=== PATIENT | female | born 1995 | race Caucasian/White ===

== ENCOUNTER 2023-08-10 10:55 | Outpatient (OUT) | payer OTHER, SELFPAY ==
[2023-08-11 05:08] LABS: HBsAg Screen Negative (Negative); HCV Ab Non Reactive (Non Reactive); HIV Ab/p24 Ag Screen Non Reactive (Non Reactive); Hep A Ab, IgM Negative (Negative); Hep B Core Ab, IgM Negative (Negative)
[2023-08-11 12:10] LABS: Rapid Plasma Reagin, Quant Non Reactive titer (NonRea<1:1)
== END 2023-08-10 10:56 | disposition home or self-care (01) ==
LOC: LAB 10:56
DX: Z11.3 Encounter for screening for infections with a predominantly sexual mode of transmission (principal)
CPT/HCPCS: 36415; 80074; 86592; 87389

== ENCOUNTER 2024-05-17 09:58 | Outpatient (OUT) | payer OTHER, SELFPAY ==
--- OUTSIDE RECORDS SUMMARY | 2024-05-17 10:21 | XMS_ITS | CCD ---
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 single yolk sac visualized with normal surrounding amniotic fluid volume. The right ovary measures 2.1 x 1.7 x 1.7 cm and there is normal arterial and venous color flow and Doppler signal documented the ovary. The left ovary is not visualized and appears obscured due to overlying bowel gas. No adnexal mass or free fluid is seen. IMPRESSION: Single viable intrauterine with an estimated gestational age of 7 weeks 2 days and an estimated date of delivery of 12/12/2024 with no gross abnormality seen. Normal size right ovary with normal blood flow documented to the ovary and no ovarian masses seen. Nonvisualization of the left ovary which is probably obscured due to overlying bowel gas No adnexal mass or free fluid. [facility] Radiology Study observation (narrative) [facility] US OB LESS THAN 14 WEEKS SIN GLE OR FIRST GESTATION W DOPPLEROrdered By: Onur Mack on 04-27-2024 [facility] Work Phone: Urinalysis w/ Microon 2024 Bacteria 1+ Abnormal NONE [facility] Comment on above: Performed By: #### U AMIC #### [facility] [address] [place] [address] [place] [address] Luggage Liner: Gal Katz MD Bilirubin, SemiQt,Ur Negative Normal NEG [facility] Comment on above: Performed By: #### U AMIC #### [facility] [address] [place] [address] [place] [address] Luggage Liner: Gal Katz MD Blood, Urine 1+ Abnormal NEG [facility] Comment on above: Performed By: #### U AMIC #### [facility] [address] [place] [address] Luggage Liner: Gal Katz MD Clarity (U) SLIGHTLY CLOUDY Abnormal CLEAR [facility] Comment on above: Performed By: #### U AMIC #### [facility] [address] [place] [address] Luggage Liner: Gal Katz MD Color (U) Yellow Normal YEL [facility] Comment on above: Performed By: #### U AMIC #### [facility] [address] [place], [place] [id number] Luggage Liner: Gal Katz MD Epithelial cells LM Ql (Urine sed) 20 TO 50 Normal 0-25 [facility] Comment on above: Performed By: #### U AMIC #### [facility] [address] [place], [place] [phone] Luggage Liner: Gal Katz MD Glucose Ql (U) Negative Normal NEG [facility] Comment on above: Performed By: #### U AMIC #### [facility] [address] [place] [id number] Luggage Liner: Gal Katz MD Ketones Ql (U) Negative Normal NEG [facility] Comment on above: Performed By: #### U AMIC #### [facility] [address] [place], [place] [phone] Luggage Liner: Gal Katz MD Leukocyte esterase Test strip Ql (U) Negative Normal NEG [facility] Comment on above: Performed By: #### U AMIC #### [facility] [address] [place] [address] [place], [place] [phone] Luggage Liner: Gal Katz MD Nitrite,Ur Negative Normal NEG [facility] Comment on above: Performed By: #### U AMIC #### [facility] [address] [place], [place] 0755383 Luggage Liner: Gal Katz MD PH,Ur 6.0 Normal 5.0-9.0 [facility] Comment on above: Performed By: #### U AMIC #### [facility] [address] [place], [place] [phone] Luggage Liner: Gal Katz MD Protein Ql (U) Negative Normal NEG [facility] Comment on above: Performed By: #### U AMIC #### [facility] [address] [place] [phone] Luggage Liner: Gal Katz MD Spec. [place],Ur 1.025 High 1.010-1.020 [facility] Comment on above: Performed By: #### U AMIC #### [facility] [address] [place], [place] [address] Luggage Liner: Gal Katz MD Urine RBC's 2 TO 5 Normal 0-2 [facility] Comment on above: Performed By: #### U AMIC #### [facility] [address] [place], [place] 788[address]83 Luggage Liner: Gal Katz MD Urine WBC's 2 TO 5 Normal 0-5 [facility] Comment on above: Performed By: #### U AMIC #### [facility] [address] [place], [place] [phone] Luggage Liner: Gal Katz MD Urobilinogen,Ur Normal Normal 0.0-1.0 [facility] Comment on above: Performed By: #### U AMIC #### [facility] [address] [place] [phone] Luggage Liner: Gal Katz MD Urinalysis with Microscopico n 04-27-2024 Bacteria LM Ql (Urine sed) 1+ Abnormal None [facility] Bilirubin Ql (U) Negative NEGATIVE [facility] Clarity (U) SLIGHTLY CLOUDY Abnormal Clear [facility] Color (U) Yellow Yellow [facility] Epithelial cells LM.HPF (Urine sed) [#/Area] 20 TO 50 [facility] Glucose Test strip (U) [Mass/Vol] Negative NEGATIVE mg/dL [facility] Hemoglobin Auto test strip Ql (U) 1+ Abnormal NEGATIVE [facility] Interpretation and review of laboratory results Abnormal [facility] Ketones (U) [Mass/Vol] Negative NEGATIVE mg/dL [facility] Leukocyte esterase Test strip Ql (U) Negative NEGATIVE [facility] Nitrite Ql (U) Negative NEGATIVE [facility] pH (U) 6.0 [pH] 5.0 - 9.0 [facility] Protein (U) [Mass/Vol] Negative NEGATIVE mg/dL [facility] RBC LM.HPF (Urine sed) [#/Area] 2 TO 5 [facility] Specific gravity (U) [Rel density] 1.025 High 1.010 - 1.020 [facility] Urobilinogen Qn (U) Normal 0.0 - 1. 0 EU/dL [facility] WBC LM.HPF (Urine sed) [#/Area] 2 TO 5 [facility] COMPLETE BLOOD COUNTon 09-26 Erythrocyte distribution width (RBC) [Ratio] 13.7 % Normal 11.5-15.0 [facility] Comment on above: Performed By: #### Puneet BERNARD CMP, 14327-6, TSHR #### [facility] ([id number]) [address], [address] [place] [address] Hematocrit (Bld) [Volume fraction] 44.4 % Normal 35-47 [facility] Comment on above: Performed By: #### Puneet BERNARD CMP, 20249-3, TSHR #### [facility] ([id number]) [address] [address] [place] [address] Hemoglobin (Bld) [Mass/Vol] 15.1 g/dL Normal 11.7-15.5 [facility] Comment on above: Performed By: #### Puneet BERNARD CMP, 95699-3, TSHR #### [facility] ([id number]) [address], [address] [place] [address] MCH (RBC) [Entitic mass] 29.8 pg Normal 27-34 [facility] Comment on above: Performed By: #### Puneet BERNARD CMP, 74518-8, TSHR #### [facility] ([id number]) [address], [address] [place] [address] MCHC (RBC) [Mass/Vol] 34.0 g/dL Normal 32-36 [facility] Comment on above: Performed By: #### Puneet BERNARD CMP, 52863-8, TSHR #### [facility] ([id number]) [address], [address] [place] [address] MCV (RBC) [Entitic vol] 88 fL Normal 80-100 [facility] Comment on above: Performed By: #### Puneet BERNARD CMP, 91259-7, TSHR #### [facility] ([id number]) [address], [address] [place] [address] Platelet mean volume (Bld) [Entitic vol] 8.5 fL Normal 7-12 [facility] Comment on above: Performed By: #### Puneet BERNARD CMP, 85602-5, TSHR #### [facility] ([id number]) [address], [address] [place] [address] Platelets (Bld) [#/Vol] 302 10*3/uL Normal 150-450 [facility] Comment on above: Performed By: #### Puneet BERNARD CMP, 70725-2, TSHR #### [facility] ([id number]) [address], [address] [place] [address] RBC COUNT 5.07 X10E12/L Normal 3.80-5.20 [facility] Comment on above: Performed By: #### Puneet BERNARD CMP, 76034-7, TSHR #### [facility] ([id number]) [address], [address] [place] [address] WBC (Bld) [#/Vol] 6.1 10*3/uL Normal 4.0-11.[address] [facility] Comment on above: Performed By: #### Puneet BERNARD CMP, 09104-4, TSHR #### [facility] ([id number]) [address], [address] [place] [address] COMPREHENSIVE METABOLIC PANE Hermelindo 09-27-2023 Albumin [Mass/Vol] 4.4 g/dL Normal 3.2-5.[address] [facility] Comment on above: Performed By: #### C CHASE BERNARD, 72465-2, TSHR #### [facility] ([id number]) [address] [place] [address] ALP [Catalytic activity/Vol] 62 U/L Normal 39-130 [facility] Comment on above: Performed By: #### C JOANA, CMP, 26564-7, TSHR #### [facility] ([id number]) [address], [address] [place] [address] ALT [Catalytic activity/Vol] 19 U/L Normal 0-31 [facility] Comment on above: Performed By: #### Puneet BERNARD CMP, 62465-3, TSHR #### [facility] ([id number]) [address], [address] [place] [address] Anion gap [Moles/Vol] 9 mmol/L Normal 5-15 [facility] Comment on above: Performed By: #### Puneet BERNARD CMP, 46603-4, TSHR #### [facility] ([id number]) [address], [address] [place] [address] AST [Catalytic activity/Vol] 19 U/L Normal 0-41 [facility] Comment on above: Performed By: #### Puneet BERNARD CMP, 34224-1, TSHR #### [facility] ([id number]) [address], [address] [place] [address] Bilirubin [Mass/Vol] 0.7 mg/dL Normal 0.3-1.2 [facility] Comment on above: Performed By: #### Puneet BERNARD, CMP, 53076-9, TSHR #### [facility] ([id number]) [address], [address] [place] [address] Calcium [Mass/Vol] 9.5 mg/dL Normal 8.5-10.[address] [facility] Comment on above: Performed By: #### Puneet BERNARD CMP, 95679-0, TSHR #### [facility] ([id number]) [address], [address] [place] [address] Chloride [Moles/Vol] 106 mmol/L Normal 98-109 [facility] Comment on above: Performed By: #### Puneet BERNARD CMP, 84601-0, TSHR #### [facility] ([id number]) [address], [facility] [address] [place] [address] CO2 [Moles/Vol] 24 mmol/L Normal 22-32 [facility] Comment on above: Performed By: #### Puneet BERNARD CMP, 78507-1, TSHR #### [facility] ([id number]) [address] [address] Creatinine [Mass/Vol] 0.75 mg/dL Normal 0.40-1.00 [facility] Comment on above: Result Comment: METH OD TRACEABLE TO IDMS STANDARD Performed By: #### Puneet BERNARD CMP, 29180-5, TSHR #### [facility] ([id number]) [address] [address] [place] [address] eGFR (CKD-EPI) NON-RACE DEPENDENT >90 Normal >59 [facility] Comment on above: Result Comment: Reported eGFR is based on the CKD-EPI 2021 equation that does not use a race coefficient. Performed By: #### Puneet BERNARD CMP, 43972-0, TSHR #### [facility] ([id number]) [address] [address] Glucose [Mass/Vol] 70 mg/dL Normal 65-[address] [facility] Comment on above: Performed By: #### Puneet BERNARD CMP, 21066-5, TSHR #### [facility] ([id number]) [address], [address] [place] [address] [place] [address] Potassium [Moles/Vol] 4.3 mmol/L Normal 3.5-5.0 [facility] Comment on above: Performed By: #### Puneet BERNARD, CMP, 61408-9, TSHR #### [facility] ([id number]) [address], [address] [place] [address] Protein [Mass/Vol] 7.3 g/dL Normal 6.0-8.[address] [facility] Comment on above: Performed By: #### Puneet BERNARD, CMP, 94633-2, TSHR #### [facility] ([id number]) [address], [address] [place] [address] Sodium [Moles/Vol] 139 mmol/L Normal 134-[address] [facility] Comment on above: Performed By: #### Puneet BERNARD, CMP, 16185-8, TSHR #### [facility] ([id number]) [address], [address] [place] [address] Urea nitrogen [Mass/Vol] 9 mg/dL Normal 5-23 [facility] Comment on above: Performed By: #### Puneet BERNARD, CMP, 83694-9, TSHR #### [facility] ([id number]) [address], [facility] [address] [place] [address] Lipid 1996 panelon 4 Cholesterol [Mass/Vol] 192 mg/dL Normal 150-200 [facility] Comment on above: Performed By: #### Puneet BERNARD, CMP, 14285-1, TSHR #### [facility] ([id number]) [address], [facility] [address] [place] [address] Cholesterol in HDL [Mass/Vol] 61 mg/dL Normal >39 [facility] Comment on above: Result Comment: HDL <40 mg/dL - High Risk HDL > or = 40mg/dL- Desirable HDL >60 mg/dL - Negative Risk Performed By: #### Puneet BERNARD, CMP, 86145-6, TSHR #### [facility] ([id number]) [address], [address] [place] [address] Cholesterol in LDL [Mass/Vol] 118 mg/dL Normal <130 [facility] Comment on above: Result Comment: LDL <100 mg/dL - Desirable LDL >160 mg/dL - High Risk Performed By: #### Puneet BERNARD, CHASE, 65818-9, TSHR #### [facility] ([id number]) [address], [address] [place] [address] Cholesterol in VLDL [Mass/Vol] 13 mg/dL Normal 0-30 [facility] Comment on above: Performed By: #### Puneet BERNARD, CHASE, 24281-7, TSHR #### [facility] ([id number]) [address], [address] [place] [address] CHOLESTEROL:HDL 3.1 Normal 1.0-5.0 [facility] Comment on above: Performed By: #### Puneet BERNARD, CHASE, 12843-9, TSHR #### [facility] ([id number]) [address], [address] [place] [address] Triglyceride [Mass/Vol] 64 mg/dL Normal 27-150 [facility] Comment on above: Performed By: #### Puneet BERNARD, CMP, 17026-0, TSHR #### [facility] ([id number]) [address], [facility] [address] [place] [address] TSH WITH REFLEXon 09-27-2023 TSH 1.21 uIU/mL Normal 0.49-4.67 [facility] Comment on above: Performed By: #### Puneet BERNARD, [facility], 91856-3, TSHR #### [facility] ([id number]) [address] [place] [address], [address] [place] [address] HCG ( test) Ql (U)o n 09-03-2023 Beta HCG ( test) Ql (U) Negative Normal NEG [facility] Comment on above: Performed By: #### 2 106-3 #### [facility] ([id number]) [address] [facility] [place] [address] Surgical Pathologyon 024 Surgical Pathology Normal [facility] Comment on above: Result Comment: [facility] [address] [place] [address] Surgical Pathology Consultation Patient Name:MICHI SERRANO:1995 (Age: 28)Gender:FTaken:4Reported:09/07/2023hysician(s):Haja Osullivan MD ([phone])Copy To: Rec. #:[id number]: #[id number] Final Pathologic Diagnosis Sigmoid colon biopsies: Unremarkable colonic mucosa. No colitis, granuloma or dysplasia identified. No microscopic colitis or inflammatory bowel disease identified. Report Electronically Signed Out ssi/09/07/2023Huber Hayes M.D. Interpretation performed at [facility], [address] [place] [address], License number: [id number]. Clinical History Rectal bleeding. Gross Description Received in formalin labeled FEUCHT, sigmoid BX are eight light cortes soft tissue bits, 0.2-0.4 cm.The specimen is filtered and entirely submitted in a single cassette. (1, ns, [id number],m3) DM. dm/09/04/2023O Specimen(s) Received Sigmoid biopsy Fee Codes(s): 1; 71819 CHLAMYDIA/GC PCR, FLon 08-09 CHLAMYDIA/GC PCR, FL SPECIMEN SOURCE ThinPrep CHLAMYDIA DNA(PCR) Negative (qualifier value) Chlamydia trachomatis not detected by nucleic acid amplification. This does not exclude the possibility of infection because results are dependent on adequate specimen collection. GONORRHOEAE DNA(PCR) Negative (qualifier value) Neisseria gonorrhoeae not detected by nucleic acid amplification. This does not exclude the possibility of infection because results are dependent on adequate specimen collection. Normal [facility] Comment on above: Performed By: #### C GT #### [facility] ([id number]) [address] [facility] [place] [address] [facility] ([id number]) [address] [place] [address], [address] [place] [address] Cytologyon 08-10-2023 Cytology Normal [facility] Comment on above: Result Comment: [facility] [employer] [facility] [address] [place] [address] Gynecologic Cytology Consultation Patient Name:MICHI SERRANO:1995 (Age: 28)Gender:FTaken:4Reported:08/26/2023hysician(s):Claire Kat M.D. ([phone])Copy To: Rec. #:[id number]: #[id number] Final Cytologic Interpretation ThinPrep Pap Test (Cervical): Satisfactory for evaluation. A transformation zone component is present. NEGATIVE FOR INTRAEPITHELIAL LESION OR MALIGNANCY. Shift in daniella suggestive of bacterial vaginosis. [facility]/08/26/2023 Interpretation performed at [employer], [address] [place] [address], License number: [id number]. 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 The Pap test is primarily effective for the diagnosis and prevention of squamous cell carcinoma. Regular screening is critical for prevention. ThinPrep liquid-based slides, which meet the Stone Unloader criteria for automated screening, have been screened by the ThinPrep Imaging System (as of 12/20/06) along with an additional manual rescreening by a precision printing worker and, if indicated, by a pathologist. HIGH RISK HPV W/GENOon 08-09 HPV 31+33+35+39+45+51+5 2+56+58+59+66+68 DNA ALLISON+probe Ql (Cvx) HPV SPECIMEN TYPE ThinPrep HPV 16 Negative (qualifier value) HPV 18 Negative (qualifier value) OTHER HIGH RISK HPV Negative (qualifier value) HPV types 31,33,35,39,45,52,56, 58,59,66 and 68 DNA were undetectable. Normal [facility] Comment on above: Performed By: #### 7 1431-1 #### [facility] ([id number]) [address] [place] [address], [address] [place], [place] [id number] [place] [address] LAB ([id number]) [address] [place] [address], [address] [place] [address] POCT , urineon Beta HCG ( test) Ql (U) Negative [facility] Interpretation and review of laboratory results Normal [facility] Vital Signs Date Time Vital Sign Value Performing Clinician Facility 05-09-2024 14:22-0500 Body weight 86.09 kg Curtis Jeannine DO Work Phone: [facility] 05-09-2024 14:22-0500 Diastolic blood pressure 72 mm[Hg] Curtis Jeannine DO Work Phone: [facility] 05-09-2024 14:22-0500 Systolic blood pressure 118 mm[Hg] Curtis Jeannine DO Work Phone: [facility] 05-05-2024 10:32-0500 Body weight 83.52 kg [facility] Nurse [facility] 05-05-2024 10:32-0500 Diastolic blood pressure 78 mm[Hg] [facility] Nurse [facility] 05-05-2024 10:32-0500 Systolic blood pressure 120 mm[Hg] [facility] Nurse [facility] 04-27-2024 20:58-0500 SaO2% (BldA) [Mass fraction] 98 % Terry Vallejo MD Work Phone: [employer] 04-27-2024 17:53-0500 Body height 162.6 cm Terry Vallejo MD Work Phone: [employer] 04-27-2024 17:53-0500 Body mass index (BMI) [Ratio] 29.18 kg/m2 Terry Vallejo MD Work Phone: [employer] 04-27-2024 17:53-0500 Body temperature 98.8 [degF] Terry Vallejo MD Work Phone: [employer] 04-27-2024 17:53-0500 Body weight 77.11 kg Terry Vallejo MD Work Phone: [employer] 04-27-2024 17:53-0500 Diastolic blood pressure 93 mm[Hg] Terry Vallejo MD Work Phone: [employer] 04-27-2024 17:53-0500 Heart rate 90 /min Terry Vallejo MD Work Phone: [employer] 04-27-2024 17:53-0500 Respiratory rate 20 /min Terry Vallejo MD Work Phone: [employer] 04-27-2024 17:53-0500 Systolic blood pressure 150 mm[Hg] Terry Vallejo MD Work Phone: [employer] 01-27-2024 09:54-0400 Body height 162.6 cm [facility] [employer] Work Phone: [facility] 01-27-2024 09:54-0400 Body mass index (BMI) [Ratio] 28.15 kg/m2 [employer] Work Phone: [facility] 01-27-2024 09:54-0400 Body temperature 97.7 [degF] Armen Correialong DO Work Phone: [facility] [employer] 01-27-2024 09:54-0400 Body weight 74.39 kg Armen Furlong DO Work Phone: [facility] [employer] 01-27-2024 09:54-0400 Diastolic blood pressure 72 mm[Hg] Armen Furlong DO Work Phone: [facility] 01-27-2024 09:54-0400 Heart rate 89 /min Armen Masoodlong DO Work Phone: [facility] [employer] 01-27-2024 09:54-0400 Respiratory rate 18 /min Armen Masoodlong DO Work Phone: [facility] 01-27-2024 09:54-0400 SaO2% (BldA) [Mass fraction] 99 % Armen Masoodlong DO Work Phone: [facility] 01-27-2024 09:54-0400 Systolic blood pressure 118 mm[Hg] Armen Masoodlong DO Work Phone: [facility] 08-10-2023 09:46-0400 Body height 162.6 cm Claire Kat MD Work Phone: [facility] 08-10-2023 09:46-0400 Body mass index (BMI) [Ratio] 33.3 kg/m2 Claire Kat MD Work Phone: [facility] 08-10-2023 09:46-0400 Body weight 88 kg Claire Kat MD Work Phone: [facility] 08-10-2023 09:46-0400 Diastolic blood pressure 70 mm[Hg] Claire Kat MD Work Phone: [facility] 08-10-2023 09:46-0400 Systolic blood pressure 128 mm[Hg] Claire Kat MD Work Phone: [facility] Encounters Encounter Date Encounter Type Care Provider Facility Start: 05-09-2024 End: 05-09-2024 Bamboo flowsheet Curtis Jeannine DO Work Phone: [facility] Start: 05-09-2024 End: 05-09-2024 Bamboo flowsheet Curtis Jeannine DO Work Phone: [facility] Start: 05-09-2024 End: 05-09-2024 flow sheet Curtis Jeannine DO Work Phone: [facility] Comment on above: Missed menses; 9 weeks gestation of ; H/O LEEP Start: 05-05-2024 End: 05-05-2024 Office outpatient visit 5 minutes [facility] Jeannine Nurse [facility] Comment on above: GA: 8w3d Start: 05-03-2024 End: 05-03-2024 Telephone encounter Armen Correiaandra DO Work Phone: [facility] Start: 05-02-2024 End: 05-02-2024 Bamboo flowsheet Emi Bronson [facility] Work Phone: [facility] Start: 05-02-2024 End: 05-02-2024 Bamboo flowsheet Emi Bronson LPCC Work Phone: [facility] Start: 05-02-2024 End: 05-02-2024 Clinical Support Emi Bronson [facility] Work Phone: [facility] Comment on above: Moderate episode of recurrent major depressive disorder (CMS/HCC); ALICIA (generalized anxiety disorder) (CMS/HCC) Start: 04-27-2024 End: 04-27-2024 Emergency department patient visit Terry Vallejo MD Work Phone: [facility] Emergency Department Comment on above: Abdominal cramping ( Primary Dx); Arm contusion, right, initial encounter Start: 04-18-2024 End: 04-18-2024 Orders Only Aicha Richard LPN [facility] Comment on above: Positive t est (Primary Dx) Start: 01-27-2024 End: 01-27-2024 Office outpatient visit 15 minutes Armen Sánchez DO Work Phone: [facility] Comment on above: Current episode of m ajor depressive disorder without prior episode, unspecified depression episode severity (Primary Dx); Overweight Start: 01-27-2024 End: 01-27-2024 ambulatory ARMEN Cedric CORREIADEANNA [facility] Start: 01-21-2024 End: 01-21-2024 Refill Armen Sánchez DO Work Phone: [facility] Start: 12-13-2023 End: 12-13-2023 [employer] Emi Jerryro LPCC Work Phone: [facility] Start: 12-13-2023 End: 12-13-2023 Bamboo flowsheet Emi Jerryro LPCC Work Phone: [facility] Start: 12-13-2023 End: 12-13-2023 Clinical Support Emi Bronson LPCC Work Phone: [facility] Comment on above: Moderate episode of recurrent major depressive disorder (HCC) (CMS/HCC); ALICIA (generalized anxiety disorder) ([facility]/HCC) Start: 11-29-2023 End: 11-29-2023 Bamboo flowsheet Emi Bronson LPCC Work Phone: [facility] Start: 11-29-2023 End: 11-29-2023 Bamboo flowsheet mEi Jerryro LPCC Work Phone: [facility] Start: 11-29-2023 End: 11-29-2023 Clinical Support Emi Bronson LPCC Work Phone: [facility] Comment on above: Moderate episode of recurrent major depressive disorder (HCC) (CMS/HCC); ALICIA (generalized anxiety disorder) (CMS/HCC) Start: 10-27-2023 End: 10-27-2023 ambulatory [facility] Start: 09-27-2023 End: 09-27-2023 ambulatory [facility] Start: 09-27-2023 Encounter for genera l adult medical examination without abnormal findings [facility] Start: 09-27-2023 End: 09-27-2023 ambulatory [facility] Start: 09-27-2023 Encounter for genera l adult medical examination without abnormal findings [facility] Start: 09-03-2023 End: 09-04-2023 Evaluation and management of inpatient [facility] Start: 09-01-2023 End: 09-01-2023 ambulatory [facility] Start: 08-25-2023 End: 08-25-2023 ambulatory [facility] Start: 08-10-2023 End: 08-10-2023 ambulatory [facility] Start: 08-10-2023 End: 08-10-2023 Encounter for gynecological examination (general) (routine) without abnormal findings CLAIREIMTIAZ KAT [facility] Start: 08-10-2023 End: 08-10-2023 Initial preventive medicine new pt age 18-39yrs Claire Kat MD Work Phone: [facility] Comment on above: Encounter for gyneco logical examination without abnormal finding (Primary Dx); Screening for STD (sexually transmitted disease); Pap smear, as part of routine gynecological examination; Encounter for initial prescription of vaginal ring hormonal contraceptive Start: 08-10-2023 End: 08-10-2023 Patient encounter status Claire Kat MD Work Phone: [facility] Start: 08-10-2023 End: 08-10-2023 [facility] Start: 08-10-2023 Encounter for gynecological examination (general) (routine) without abnormal findings CLAIRE SHEY [facility] Procedures Date Procedure Procedure Detail Performing Clinician Start: 05-05-2024 End: 05-05-2024 Urnls dip stick/tablet rgnt non-auto w/o micrscp Curtis Jeannine DO Work Phone: Start: 04-27-2024 Us uterus 1 4 wk transabdl 04/05 gestat Terry Vallejo MD Work Phone: Start: 04-27-2024 Basic metabolic pane l calcium total Terry Vallejo MD Work Phone: Start: 04-27-2024 Blood typing serologic abo Terry Vallejo MD Work Phone: Start: 04-27-2024 Urnls dip stick/tabl et reagent auto microscopy Terry Vallejo MD Work Phone: Start: 01-27-2024 Follow-up visit Follow-up ARMEN SÁNCHEZ Start: 10-27-2023 Adult depression scr eening assessment Armen Sánchez DO Work Phone: Start: 08-10-2023 Urine test visual color cmprsn meths Claire Kat MD Work Phone: Start: 08-10-2023 Adult depression scr eening assessment Claire Kat MD Work Phone: Start: 08-10-2023 Microscopic observat ion [Identifier] in Cervix by Cyto stain Armen Sánchez DO Work Phone: Plan of Treatment Date Care Activity Detail Author Start: 2068 Respiratory Syncytia l Virus (RSV) or age 60 yrs+ (1 - 1-dose 75+ series) Respiratory Syncytial Virus (RSV) or age 60 yrs+ (1 - 1-dose 75+ series) [facility] Start: 08-16-2028 DTaP,Tdap and Td Vaccines (2 - Td or Tdap) DTaP,Tdap and Td Vaccines (2 - Td or Tdap) [facility] Start: 08-16-2028 DTaP/Tdap/Td vaccine (2 - Td or Tdap) DTaP/Tdap/Td vaccine (2 - Td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
[2024-05-17 10:36] LABS: Basophils Absolute Auto 0.1 10^3/uL (0.0-0.1); Basophils Percent Auto 0.6 % (0.2-2.0); Eosinophils Absolute Auto 0.2 10^3/uL (0.0-0.7); Eosinophils Percent Auto 1.7 % (0.9-7.0); Hematocrit 41.1 % (36.0-48.0); Hemoglobin 13.5 g/dL (12.0-16.0); Immature Granulocytes Abs Auto 0.05 10^3/uL (0.00-0.03); Immature Granulocytes Pct Auto 0.5 % (0.0-0.5); Lymphocytes Absolute Auto 1.9 10^3/uL (1.2-3.8); Mean Corpuscular HGB Conc 32.8 g/dL (29.9-35.2); Mean Corpuscular Hemoglobin 29.6 pg (26.7-34.0); Mean Corpuscular Volume 90.1 fL (81.0-99.0); Mean Platelet Volume 9.6 fL (9.5-13.5); Monocytes Absolute Auto 0.8 10^3/uL (0.3-0.8); Neutrophils Absolute Auto 8.1 10^3/uL (1.4-6.5); Neutrophils Percent Auto 73.2 % (43.0-75.0); Platelet Count 312 10^3/uL (150-450); Red Blood Count 4.56 10^6/uL (4.20-5.40); Red Cell Distribution Width 13.2 % (11.0-15.0); White Blood Count 11.1 10^3/uL (4.0-11.0)
[2024-05-17 10:46] LABS: Estimated Average Glucose 100 mg/dL; Glycohemoglobin A1C 5.1 % (4.5-6.2)
[2024-05-17 10:50] LABS: BOX Test Reference Lab UNITY; BOX Test Sent Out UNITY
[2024-05-17 10:58] LABS: Amphetamine Screen Urine NEGATIVE (NEGATIVE); Barbiturates Screen Urine NEGATIVE (NEGATIVE); Benzodiazepines Screen Urine NEGATIVE (NEGATIVE); Buprenorphine Screen Urine NEGATIVE (NEGATIVE); Cannabinoid Screen Urine NEGATIVE (NEGATIVE); Cocaine Screen Urine NEGATIVE (NEGATIVE); Methadone Screen Urine NEGATIVE (NEGATIVE); Methamphetamines Screen Urine NEGATIVE (NEGATIVE); Opiate Screen Urine NEGATIVE (NEGATIVE); Oxycodone Screen Urine NEGATIVE (NEGATIVE); Phencyclidine Screen Urine NEGATIVE (NEGATIVE); Tricyclic Antidepressant Urine NEGATIVE (NEGATIVE)
[2024-05-17 11:05] LABS: Thyroid Stimulating Hormone 0.649 uIU/mL (0.358-3.740)
[2024-05-18 06:10] LABS: HBsAg Screen Negative (Negative); HCV Ab Non Reactive (Non Reactive); HIV Ab/p24 Ag Screen Non Reactive (Non Reactive); Rubella Antibodies, IgG 1.54 index (Immune >0.99)
[2024-05-18 10:07] LABS: Rapid Plasma Reagin, Quant Non Reactive titer (NonRea<1:1)
== END 2024-05-17 09:59 | disposition home or self-care (01) ==
LOC: LAB 09:59
PROVIDERS: PCP Family Medicine; Visit Provider Obstetrics & Gynecology
DX: Z34.01 Encounter for supervision of normal first pregnancy, first trimester (principal); Z36.0 Encounter for antenatal screening for chromosomal anomalies; N92.6 Irregular menstruation, unspecified
CPT/HCPCS: 36415; 80307; 83036; 84443; 85025; 86592; 86762; 86803; 86850; 86900; 86901; 87086; 87340; 87389

== ENCOUNTER 2024-07-05 06:59 | Outpatient (OUT) | payer OTHER, SELFPAY ==
--- OUTSIDE RECORDS SUMMARY | 2024-07-05 07:02 | XMS_ITS | CCD ---
Demographics Address [address] [place] [id number] Home Phone Mobile Phone Preferred Language en Marital Status Single Sabianist Affiliation Unknown Race White Ethnic Group Not or Lati no Author Organization [facility] Care Team Providers Care Waste Baler Name Role Phone CLAIRE KAT Referring Unavailable FURLONG, ARMEN Steele Referring Unavailable FURLONG, ARMEN Steele Primary Care Unavailable HAJA OSULLIVAN Admitting Unavailable HAJA OSULLIVAN Attending Unavailable MASOODLONG, ARMEN Steele Primary Care Unavailable HAJA OSULLIVAN Attending Unavailable HAJA OSULLIVAN Referring Unavailable FURLONG, ARMEN Steele Primary Care Unavailable CLAIRE KAT Attending Unavailable FURLONG, ARMEN Steele Attending Unavailable FURLONG, ARMEN G Primary Care Unavailable FURLONG, ARMEN Steele Attending Unavailable FURLONG, ARMEN G Referring Unavailable FURLONG, ARMEN Steele Primary Care Unavailable FURLONG, ARMEN Steele Attending Unavailable FURLONG, ARMEN Steele Referring Unavailable FURLONG, ARMEN G Primary Care Unavailable FURLONG, ARMEN G Attending Unavailable FURLONG, ARMEN G Referring Unavailable FURLONG, ARMEN G Primary Care Unavailable Unavailable Primary Care Provider Unavailabl e Armen Sánchez DO Primary Care Provider Armen Sánchez DO Primary Care Provider ARMEN SÁNCHEZ Primary Care Unavailable ZULLY VALLEJO Attending Unavailable Aiyana [facility], Emi Munson Unavailable [phone] Armen Sánchez MD Primary Care Provider [phone] Unavailable Primary Care Provider Unavailabl e ARMEN SÁNCHEZ Referring Unavailable FURLONG, ARMEN Steele Primary Care Unavailable CURTIS PAEZ Referring Unavailable MASOODLONG, ARMEN Steele Primary Care Unavailable Allergies Allergy Classification Reported Allergen(s) Allergy Type Date of Onset Reaction(s) Facility (18 sources) Penicillins; Translations: [PENICILLINS] Propensity to adverse reactions to drug (disorder) 9 Other (See Comments) [facility] (9 sources) Penicillin G Drug Allergy 5 Rash [facility] Medications Current Medications Medication Drug Class(es) Dates Sig (Normalized) Sig (Original) azithromycin 250 mg oral tablet (1 source) Macrolide Antimicrobial Start: 08-15-2018 azithromycin (ZITHROMAX) 250 MG tablet 08/15/2018 Active FLUoxetine 20 mg oral capsule (10 sources) Serotonin Reuptake Inhibitor Start: 01-27-2024 take [...] 30 capsule 01/21/2024 01/27/2024 Discontinued (Dose adjustment) magnesium oxide 400 mg oral tablet (8 sources) Start: 05-15-2024 End: 06-14-2024 take 1 tablet by mouth once daily magnesium oxide (Mag-Ox) 400 MG tablet Indications: Carpal tunnel syndrome during Take 1 tablet (400 mg) by mouth Daily 30 tablet 6 05/15/2024 06/14/2024 Active phentermine hydrochloride 37.5 mg oral capsule (9 sources) Sympathomimetic Amine Anorectic Start: 08-25-2023 End: 01-27-2024 take 31-31.9 capsules by mouth once daily phentermine 37.5 MG capsule Indications: Class 1 obesity due to excess calories with body mass index (BMI) of 31.0 to 31.9 in adult, unspecified whether serious comorbidity present take 1 capsule by mouth every morning before breakfast 30 capsule 10/04/2023 01/27/2024 Discontinued (Therapy completed) PNV 19/iron ps,heme/folic/dha ( MV & MIN ORAL) (3 sources) take 1 tablet by mouth once daily PNV 19/iron ps,heme/folic/dha ( MV & MIN ORAL) Take 1 tablet by mouth once daily. Active polyethylene glycol 3350 41086 mg powder for oral solution (13 sources) Osmotic Laxative Start: 04-27-2024 polyethylene glycol (GLYCOLAX) 17 GM/SCOOP powder 17 g daily as directed until stools are soft and then as needed 510 g 5 04/27/2024 Active polyethylene gly col (GLYCOLAX) 17 gram packet Take 17 g by mouth in the morning. Active polyethylene gly col, PEG, 3350 (Glycolax) 17 GM/SCOOP powder Take 17 g by mouth 1 (one) time Active MV-Min-Fe Fum-FA-DHA ( 1 PO) (9 sources) MV-Min- Fe Fum-FA-DHA ( 1 PO) Take 1 each by mouth Daily Active terbinafine 250 mg oral tablet (2 sources) Allylamine Antifungal Start: End: take 1 tablet [...] mg from all sources in 24 hours. 21 day ethinyl estradiol 0.651413 mg/hr / etonogestrel 0.005 mg/hr vaginal system (5 sources) Progestin, Estrogen Start: 08-10-2023 End: 09-27-2023 etonogestreL-ethiny l estradioL (NUVARING) 0.12-0.015 mg/24 hr vaginal ring Insert 1 each into the vagina every 21 days. Insert vaginally and leave in place for 3 consecutive weeks, then remove for 1 week. 1 each 08/10/2023 09/27/2023 Discontinued (Therapy completed) Start: 08-09-2018 NUVARING 0.12- 0.015 MG/24HR vaginal ring 3 08/09/2018 Active metroNIDAZOLE 500 mg oral tablet (4 sources) [...] taking this medication. 14 tablet 05/05/2024 05/12/2024 sod sulf-pot chloride-mag sulf 1.479-0.188- 0.225 gram tablet (2 sources) Start: 08-26-2023 End: 09-27-2023 sod sulf-pot chloride-mag sulf 1.479-0.188- 0.225 gram tablet Indications: Rectal bleeding Take 12 tablets twice a day as per instructions 24 tablet 08/26/2023 09/27/2023 Discontinued (Therapy completed) Start: 08-26-2023 sod sulf-pot c hloride-mag sulf 1.479-0.188- 0.225 gram tablet Indications: Rectal bleeding Take 12 tablets twice a day as per instructions 24 tablet 08/26/2023 Active Problems Active Problems Problem Classification Problem Date Documented Date Episodic/Chronic Abdominal pain (2 sources) Finding of sensation of abdomen; Translations: [Unspecified abdominal pain] Onset: 04-27-2024 04-27-2024 Episodic Anxiety disorders (20 sources) Anxiety disorder, unspecified; Translations: [Generalized anxiety disorder] Onset: 10-25-2023 10-25-2023 Chronic Inflammatory diseases of female pelvic organs (1 source) Bacterial vaginosis; Translations: [Acute vaginitis] 05-05-2024 Episodic Menstrual disorders (3 sources) Missed period; Translations: [Irregular menstruation, unspecified] 05-05-2024 Chronic Mood disorders (20 sources) Major depressive disorder, single episode, unspecified; Translations: [Major depressive disorder, single episode, mild] Onset: 08-25-2023 10-25-2023 Chronic Nutritional deficiencies (12 sources) Vitamin D deficiency; Translations: [Vitamin D deficiency, unspecified] Onset: 08-16-2018 09-27-2023 Chronic Other complications of (2 sources) Previous operation to cervix affecting ; Translations: [Maternal care for other abnormalities of cervix, unspecified trimester] 06-08-2024 Episodic Other complications of (1 source) Abnormal findings on screening of mother; Translations: [Abnormal chromosomal and genetic finding on screening of mother] 06-20-2024 Episodic Other complications of (1 source) Abnormal chromosomal and genetic finding on screening of mother; Translations: [Abnormal chromosomal and genetic finding on screening of mother] Onset: 06-20-2024 Episodic Other nutritional; endocrine; and metabolic disorders (2 sources) Other obesity due to excess calories; Translations: [Other obesity due to excess calories] Onset: 08-25-2023 Chronic Other nutritional; endocrine; and metabolic disorders (2 sources) Body mass index (BMI) 31.0-31.9, adult; Translations: [Body mass index (BMI) 31.0-31.9, adult] Onset: 08-25-2023 Chronic Other nutritional; endocrine; and metabolic disorders (3 sources) Obesity caused by energy imbalance; Translations: [Other obesity due to excess calories] 08-25-2023 Chronic Other nutritional; endocrine; and metabolic disorders (1 source) Overweight; Translations: [Overweight] Onset: 01-27-2024 Episodic Other and delivery including normal (5 sources) test positive; Translations: [Encounter for test, result positive] 04-18-2024 Episodic Other screening for suspected conditions (not mental disorders or infectious disease) (1 source) Encounter for other specified screening; Translations: [Encounter for other specified screening] Onset: 06-20-2024 Episodic Residual codes; unclassified (2 sources) Gestation period, 9 weeks; Translations: [9 weeks gestation of ] 05-09-2024 Episodic Residual codes; unclassified (2 sources) History of loop electrosurgical excision procedure; Translations: [Other specified postprocedural states] 05-09-2024 Episodic Residual codes; unclassified (2 sources) Gestation period, 13 weeks; Translations: [13 weeks gestation of ] 06-08-2024 Episodic Residual codes; unclassified (4 sources) Carrier of cystic fibrosis gene mutation; Translations: [Cystic fibrosis carrier] Onset: 06-16-2024 06-16-2024 Episodic Residual codes; unclassified (1 source) Family history of development disorder; Translations: [Family history of other specified conditions] 06-20-2024 Episodic Residual codes; unclassified (1 source) Family history of Spina bifida; Translations: [Family history of other congenital malformations, deformations and chromosomal abnormalities] 06-20-2024 Episodic Superficial injury; contusion (2 sources) Contusion of right upper arm, initial encounter; Translations: [Contusion of unspecified part of upper limb] Onset: 04-27-2024 04-27-2024 Episodic Unclassified (1 source) Weight Check Onset: 10-27-2023 Unclassified (1 source) Annual Exam Onset: 09-27-2023 Unclassified (1 source) new patient Onset: 08-25-2023 Unclassified (2 sources) PM MYCHART PREG BODY CHANGES Onset: 06-20-2024 06-20-2024 Past or Other Problems Problem Classification Problem Date Documented Da te Episodic/Chronic Contraceptive and procreative management (1 source) Patient encounter status; Translations: [Encounter for initial prescription of vaginal ring hormonal contraceptive] 08-10-2023 Episodic Gastrointestinal hemorrhage (18 sources) Hemorrhage of anus and rectum; Translations: [Rectal hemorrhage] Onset: 08-26-2023 09-03-2023 Episodic Immunizations and screening for infectious disease (4 sources) Encounter for screening for infections with a predominantly sexual mode of transmission; Translations: [Requires diphtheria, tetanus and pertussis vaccination] Onset: 08-16-2018 Resolved: 09-15-2018 08-16-2018 Episodic Mood disorders (15 sources) Mood disorders; Translations: [Depression, unspecified] Onset: 09-27-2023 Resolved: 10-27-2023 10-27-2023 Mycoses (11 sources) Tinea unguium; Translations: [Onychomycosis] Onset: 09-27-2023 10-27-2023 Episodic Other nutritional; endocrine; and metabolic disorders (8 sources) Overweight; Translations: [Overweight] Onset: 01-27-2024 01-27-2024 Episodic Other skin disorders (1 source) Skin lesion; Translations: [Disorder of the skin and subcutaneous tissue, unspecified] 09-27-2023 Episodic Other upper respiratory infections (1 source) Sore throat symptom; Translations: [Acute pharyngitis, unspecified] Onset: 08-16-2018 Resolved: 09-15-2018 09-15-2018 Episodic Unclassified (14 sources) Onset: 08-10-2023 08-10-2023 Results Test Name Value Interpretation Reference Range Facility Urinalysis macro (dipstick) panel (U)on 06-08-2024 Bilirubin, UA Negative Negative - 4(70) +++ mg/dL [facility] Blood, UA Negative Negative - 50 Koby/mcL [facility] Clarity, UA Clear [facility] re Color, UA Yellow [facility] Glucose, UA Negative Negative - 1999(110) ++++ mg/dL [facility] Interpretation and review of laboratory results Normal [facility] re Ketones, UA Negative Negative - 160(16) ++++ mg/dL [facility] Leukocytes, UA Negative Negative - 500+++ Danny/mcL [facility] Nitrite, UA Negative Negative - Positive [facility] pH, UA 6 5 - 9 [facility] Protein, UA Negative Negative - 1999(20) ++++ mg/dL [facility] Spec Grav, UA 1.02 1 - 1.03 [facility] Urobilinogen, UA 0.2 0.2 - 12 mg/dL [facility] ALL CBC WITH AUTO DIFFon BASOPHILS ABSOLUTE AUTO 0.1 [facility] Basophils/100 WBC (Bld) 0.6 % 0.2 - 2.0 % [facility] Eosinophils/100 WBC (Bld) 1.7 % 0.9 - 7.0 % [facility] Erythrocyte distribution width (RBC) [Ratio] 13.2 % 11.0 - 15.0 % [facility] Hematocrit (Bld) [Volume fraction] 41.1 % 36.0 - 48.0 % [facility] Hemoglobin (Bld) [Mass/Vol] 13.5 g/dL 12.0 - 16.0 g/dL [facility] IMMATURE GRANULOCYTES ABS AUTO 0.05 High [facility] Immature granulocytes/100 WBC (Bld) 0.5 % 0.0 - 0.5 % [facility] Interpretation and review of laboratory results Abnormal [facility] re LYMPHOCYTES ABSOLUTE AUTO 1.9 [facility] Lymphocytes/100 WBC (Bld) 17 % Low 20.5 - 60.0 % [facility] MCH (RBC) [Entitic mass] 29.6 pg 26.7 - 34.0 pg [facility] MCHC (RBC) [Mass/Vol] 32.8 g/dL 29.9 - 35.2 g/dL [facility] MCV (RBC) [Entitic vol] 90.1 fL 81.0 - 99.0 fL [facility] MONOCYTES ABSOLUTE AUTO 0.8 [facility] Monocytes/100 WBC (Bld) 7 % 1.7 - 12.0 % [facility] NEUTROPHILS ABSOLUTE AUTO 8.1 High [facility] Neutrophils/100 WBC (Bld) 73.2 % 43.0 - 75.0 % [facility] Platelet mean volume (Bld) [Entitic vol] 9.6 fL 9.5 - 13.5 fL [facility] TBH EO # 0.2 [facility] TBH PLT 312 [facility] RBC 4.56 [facility] TBH WBC 11.1 High [facility] BOX TESTon 05-17-2024 [facility] BOX2 05/17/24 [facility] BOX [facility] HCG ( test) Ql (U)o n 05-05-2024 Interpretation and review of laboratory results Abnormal [facility] re Preg Test, Ur Positive Negative [facility] Urinalysis macro (dipstick) panel (U)on 05-05-2024 Bilirubin, UA Negative Negative - 4(70) +++ mg/dL [facility] Blood, UA Negative Negative - 50 Koby/mcL [facility] Clarity, UA Clear [facility] [employer] re Color, UA Yellow [facility] [employer] Glucose, UA Negative Negative - 1999(110) ++++ mg/dL [facility] Interpretation and review of laboratory results Abnormal [facility] re Ketones, UA Negative Negative - 160(16) ++++ mg/dL [facility] Leukocytes, UA Negative Negative - 500+++ Danny/mcL [facility] Nitrite, UA Negative Negative - Positive [facility] pH, UA 7 5 - 9 [facility] [employer] Protein, UA Positive Negative - 1999(20) ++++ mg/dL [facility] Comment on above: 30 Spec Grav, UA 1.02 1 - 1.03 [facility] Urobilinogen, UA 0.2 0.2 - 12 mg/dL [facility] Basic Metabolic Panelon 04-06 Anion gap [Moles/Vol] 12 mmol/L 9 - 16 mmol/L [facility] Calcium [Mass/Vol] 9.1 mg/dL 8.6 - 10. 4 mg/dL [facility] Chloride [Moles/Vol] 102 mmol/L 98 - 107 mmol/L [facility] CO2 [Moles/Vol] 23 mmol/L 20 - 31 mmol/L [facility] Creatinine [Mass/Vol] 0.5 mg/dL 0.50 - 0.90 mg/dL [facility] Est, Tom Gonzalezt Rate - PINF [facility] Comment on above: These results are not [...] 66 mg/dL Low 74 - 99 mg/dL [facility] Interpretation and review of laboratory results Abnormal [facility] Potassium [Moles/Vol] 3.8 mmol/L 3.7 - 5.3 mmol/L [facility] Sodium [Moles/Vol] 137 mmol/L 136 - 145 mmol/L [facility] Urea nitrogen [Mass/Vol] 9 mg/dL 6 - 20 mg/dL [facility] Urea nitrogen/Creatinine [Mass ratio] 18 mg/mg 9 - 20 [facility] Basic Metabolic Profon 04-27 Anion gap [Moles/Vol] 12 mmol/L Normal - [facility] Comment on above: Performed By: #### C DP, BMP #### [facility] [address] [place] [address] Retail Sales Merchandiser: Gal Katz MD BUN/CRE Ratio 18 Normal - [facility] Comment on above: Performed By: #### C DP, BMP #### [facility] [address] [place] [address] [employer] Merchandiser: Gal Katz MD Calcium [Mass/Vol] 9.1 mg/dL Normal 8.6-10.4 [facility] Comment on above: Performed By: #### C DP, BMP #### [facility] [address] [place], [place] [id number] [employer] Merchandiser: Gal Katz MD Chloride [Moles/Vol] 102 mmol/L Normal 98-107 [facility] Comment on above: Performed By: #### C DP, BMP #### [facility] [address] [place] [address] [employer] Sales Merchandiser: Gal Katz MD CO2 [Moles/Vol] 23 mmol/L Normal 20-31 [facility] Comment on above: Performed By: #### C DP, BMP #### [facility] [address] [place], [place] [id number] [employer] Merchandiser: Gal Katz MD Creatinine [Mass/Vol] 0.5 mg/dL Normal 0.50-0.90 [facility] Comment on above: Performed By: #### C DP, BMP #### [facility] [address] [place] [address] [employer] Merchandiser: Gal Katz MD GFR/1.73 sq M.predicted among non-blacks MDRD (S/P/Bld) [Vol rate/Area] mL/min/{1.73_m2} Normal >60 [facility] Comment on above: Result Comment: These [...] Performed By: #### C DP, BMP #### [facility] [address] [place] [address] [employer] Sales Merchandiser: Gal Katz MD Glucose [Mass/Vol] 66 mg/dL Low 74-99 [facility] Comment on above: Performed By: #### C DP, BMP #### [facility] [address] [place] [address] [employer] Merchandiser: Gal Katz MD Potassium [Moles/Vol] 3.8 mmol/L Normal 3.7-5.3 [facility] Comment on above: Performed By: #### C DP, BMP #### [facility] [address] [place], [place] [id number] [employer] Merchandiser: Gal Katz MD Sodium [Moles/Vol] 137 mmol/L Normal 136-145 [facility] Comment on above: Performed By: #### C DP, BMP #### [facility] [address] [place] [address] [employer] Sales Merchandiser: Gal Katz MD Urea nitrogen [Mass/Vol] 9 mg/dL Normal 6-20 [facility] Comment on above: Performed By: #### C DP, BMP #### [facility] [address] [place] [address] [employer] Merchandiser: Gal Katz MD CBC with Auto Differentialon 04-27-2024 Basophils (Bld) [#/Vol] 0.09 10*3/uL [facility] Basophils/100 WBC (Bld) 1 % 0 - 2 % [facility] Eosinophils (Bld) [#/Vol] 0.17 10*3/uL [facility] Eosinophils/100 WBC (Bld) 2 % 1 - 4 % [facility] Erythrocyte distribution width (RBC) [Ratio] 12.7 % 11.8 - 14.4 % [facility] Hematocrit (Bld) [Volume fraction] 41.1 % 36.3 - 47.1 % [facility] Hemoglobin (Bld) [Mass/Vol] 14.0 g/dL 11.9 - 15.1 g/dL [facility] Immature granulocytes (Bld) [#/Vol] 0.04 10*3/uL [facility] Immature granulocytes/100 WBC (Bld) 0 % 0 [facility] Interpretation and review of laboratory results Abnormal [facility] Lymphocytes/100 WBC (Bld) 20 % Low 24 - 43 % [facility] Lymphocytes/100 WBC (Bld) 2.31 % [facility] MCH (RBC) [Entitic mass] 30.1 pg 25.2 - 33.5 pg [facility] MCHC (RBC) [Mass/Vol] 34.1 g/dL 28.4 - 34.8 g/dL [facility] MCV (RBC) [Entitic vol] 88.4 fL 82.6 - 102.9 fL [facility] Monocytes/100 WBC (Bld) 8 % 3 - 12 % [facility] Monocytes/100 WBC (Bld) 0.90 % [facility] Neutrophils/100 WBC (Bld) 69 % High 36 - 65 % [facility] Nucleated RBC/100 WBC (Bld) [Ratio] 0.0 % 0.0 per 100 WBC [facility] Platelet mean volume (Bld) [Entitic vol] 9.4 fL 8.1 - 13.5 fL [facility] Platelets (Bld) [#/Vol] 327 10*3/uL [facility] RBC (Bld) [#/Vol] 4.65 10*6/uL 3.95 - 5.1 1 m/uL [facility] Segmented neutrophils/100 WBC (Bld) 8.09 % [facility] WBC other (Bld) [#/Vol] 11.6 High [facility] CBC with Diffon 04-27-2024 Abs. Basophil 0.09 k/uL Normal 0.00-0.20 [facility] Comment on above: Performed By: #### C DIMA CHANDLER #### [facility] [address] [place] [address] Retail Sales Merchandiser: Gal Katz MD Abs.Imm.Granulocyte 0.04 k/uL Normal 0.00-0.30 [facility] Comment on above: Performed By: #### C DP, BMP #### [address] [place], [facility] Retail Sales Merchandiser: Gal Katz MD Abs.Neutrophil (Seg) 8.09 k/uL Normal 1.50-8.10 [facility] Comment on above: Performed By: #### C DP, BMP #### [address] [place], [facility] Retail Sales Merchandiser: Gal Katz MD Basophils/100 WBC (Bld) 1 % Normal 0-2 [facility] Comment on above: Performed By: #### C DP, BMP #### [address] [place], [facility] Retail Sales Merchandiser: Gal Katz MD Eosinophils (Bld) [#/Vol] 0.17 10*3/uL Normal 0.00-0.44 [facility] Comment on above: Performed By: #### C DP, BMP #### [address] [place], [place] [address] [employer] Merchandiser: Gal Katz MD Eosinophils/100 WBC (Bld) 2 % Normal 1-4 [facility] Comment on above: Performed By: #### C DP, BMP #### [address] [place], [facility] Retail Sales Merchandiser: Gal Katz MD Erythrocyte distribution width (RBC) [Ratio] 12.7 % Normal 11.8-14.4 [facility] Comment on above: Performed By: #### C DP, BMP #### [address] [place] [id number] [employer] Merchandiser: Gal Katz MD Hematocrit (Bld) [Volume fraction] 41.1 % Normal 36.3-47.1 [facility] Comment on above: Performed By: #### C DP, BMP #### [address] [place], [facility] Retail Sales Merchandiser: Gal Katz MD Hemoglobin (Bld) [Mass/Vol] 14.0 g/dL Normal 11.9-15.1 [facility] Comment on above: Performed By: #### C DP, BMP #### [facility] [address] [place], [place] [id number] [employer] Merchandiser: Gal Katz MD Immature granulocytes/100 WBC (Bld) 0 % Normal 0 [facility] Comment on above: Performed By: #### C DP, BMP #### [facility] [address] [place] [address] [employer] Sales Merchandiser: Gal Katz MD Lymphocytes (Bld) [#/Vol] 2.31 10*3/uL Normal 1.10-3.70 [facility] Comment on above: Performed By: #### C DP, BMP #### [address] [place], [facility] [employer] Merchandiser: Gal Katz MD Lymphocytes/100 WBC (Bld) 20 % Low 24-43 [facility] Comment on above: Performed By: #### C DP, BMP #### [address] [place], [place] [address] [employer] Merchandiser: Gal Katz MD MCH (RBC) [Entitic mass] 30.1 pg Normal 25.2-33.5 [facility] Comment on above: Performed By: #### C DP, BMP #### [facility] [address] [place] [address] [place], [place] [id number] [employer] Merchandiser: Gal Katz MD MCHC (RBC) [Mass/Vol] 34.1 g/dL Normal 28.4-34.8 [facility] Comment on above: Performed By: #### C DP, BMP #### [facility] [address] [place] [address] Retail Sales Merchandiser: Gal Katz MD MCV (RBC) [Entitic vol] 88.4 fL Normal 82.6-102.9 [facility] Comment on above: Performed By: #### C DP, BMP #### [facility] [address] [place] [address] Retail Sales Merchandiser: Gal Katz MD Monocytes (Bld) [#/Vol] 0.90 10*3/uL Normal 0.10-1.20 [facility] Comment on above: Performed By: #### C DP, BMP #### [facility] [address] [place], [place] [id number] [employer] Merchandiser: Gal Katz MD Monocytes/100 WBC (Bld) 8 % Normal 3-12 [facility] Comment on above: Performed By: #### C DP, BMP #### [address] [place], [facility] Retail Sales Merchandiser: Gal Katz MD Neutrophil (Seg) 69 % High 36-65 [facility] Comment on above: Performed By: #### C DP, BMP #### [address] [place], [place] [id number] Retail [employer] Merchandiser: Gal Katz MD NRBC Automated 0.0 per 100 WBC Normal 0.0 [facility] Comment on above: Performed By: #### C DP, BMP #### [address] [place], [facility] Retail Sales Merchandiser: Gal Katz MD Platelet mean volume (Bld) [Entitic vol] 9.4 fL Normal 8.1-13.5 [facility] Comment on above: Performed By: #### C DP, BMP #### [address] [place] [address] Retail Sales Merchandiser: Gal Katz MD Platelets (Bld) [#/Vol] 327 10*3/uL Normal 138-453 [facility] Comment on above: Performed By: #### C DP, BMP #### [facility] [address] [place] [address] Retail Sales Merchandiser: Gal Katz MD RBC (Bld) [#/Vol] 4.65 10*6/uL Normal 3.95-5.11 [facility] Comment on above: Performed By: #### C DP, BMP #### [facility] [address] [place] [address] Retail Sales Merchandiser: Gal Katz MD WBC (Bld) [#/Vol] 11.6 10*3/uL High 3.5-11.3 [facility] Comment on above: Performed By: #### C DP, BMP #### [facility] [address] [place] [address] [place]. [place], [place] 887[address]83 Retail Sales Merchandiser: Gal Katz MD HCG, Quanton 04-27-2024 HCG, Quant 02171.0 mIU/mL [facility] 0-7 [facility] Comment on above: Result Comment: Non-preg premeno <=5 Postmeno <=8 Male <=3 If HCG results do not concur with clinical observations, additional testing to confirm results is recommended. Performed By: #### B HCG #### [address] [place], [place] [address] Retail Sales Merchandiser: Gal Katz MD HCG, Quantitative, on 04-27-2024 [place] [address].0 m[IU]/mL [facility] Comment on above: Non-preg premeno <=5 Postmeno <=8 Male <=3 If HCG results do not concur with clinical observations, additional testing to confirm results is recommended. Interpretation and review of laboratory results Abnormal [facility] TYPE AND SCREENon 04-27-2024 ABO and Rh group Nom (Bld) Blood group A Rh(D) positive [facility] Arm Band Number [id number] [facility] Blood Bank Sample Expiration 04/30/2024,2359 [facility] Blood group antibodies identified Nom Negative [facility] Type + Screenon 04-27-2024 Type + Screen Sample Expiration 04/30/2024,2359 Arm Band Number [id number] ABO/Rh(D) A POSITIVE Antibody Screen NEGATIVE Normal [facility] Comment on above: Performed By: #### T YS #### [facility] [address] [place] [address] Retail Sales Merchandiser: Gal Katz MD US OB LESS THAN [...] Onur Mack MD 04/27/24 Final result Normal [facility] Single viable intrauterine with an estimated [...] gas No adnexal mass or free fluid. [facility] EXAMINATION: FIRST TRIMESTER OBSTETRIC ULTRASOUND 04/27/2024 [...] adnexal mass or free fluid is seen. [facility] Onur Mack MD - 04/27/2024 EXAMINATION: [...] gas No adnexal mass or free fluid. [facility] Radiology Study observation (narrative) [facility] US OB LESS THAN 14 WEEKS SIN GLE OR FIRST GESTATION W DOPPLEROrdered By: Onur Mack on 04-27-2024 [facility] Work Phone: Urinalysis w/ Microon 2024 Bacteria 1+ Abnormal NONE [facility] Comment on above: Performed By: #### U AMIC #### [facility] [address] [place] [address] [place] [address] Retail Sales Merchandiser: Gal Katz MD Bilirubin, SemiQt,Ur Negative Normal NEG [facility] Comment on above: Performed By: #### U AMIC #### [facility] [address] [place] [address] Retail Sales Merchandiser: Gal Katz MD Blood, Urine 1+ Abnormal NEG [facility] Comment on above: Performed By: #### U AMIC #### [facility] [address] [place], [place] 308[address]83 Retail Sales Merchandiser: Gal Katz MD Clarity (U) SLIGHTLY CLOUDY Abnormal CLEAR [facility] Comment on above: Performed By: #### U AMIC #### [facility] [address] [place], [place] [id number] Retail Sales Merchandiser: Gal Katz MD Color (U) Yellow Normal YEL [facility] Comment on above: Performed By: #### U AMIC #### [facility] [address] [place] [address] Retail Sales Merchandiser: Gal Katz MD Epithelial cells LM Ql (Urine sed) 20 TO 50 Normal 0-25 [facility] Comment on above: Performed By: #### U AMIC #### [facility] [address] [place], [place] 8[address]83 Retail Sales Merchandiser: Gal Katz MD Glucose Ql (U) Negative Normal NEG [facility] Comment on above: Performed By: #### U AMIC #### [facility] [address] [place] [address] Dr. [place], [place] [address] Retail Sales Merchandiser: Gal Katz MD Ketones Ql (U) Negative Normal NEG [facility] Comment on above: Performed By: #### U AMIC #### [facility] [address] [place] [address] [place] [address] Retail Sales Merchandiser: Gal Katz MD Leukocyte esterase Test strip Ql (U) Negative Normal NEG [facility] Comment on above: Performed By: #### U AMIC #### [facility] [address] [place] [address] Dr. [place], [place] [address] Retail Sales Merchandiser: Gal Katz MD Nitrite,Ur Negative Normal NEG [facility] Comment on above: Performed By: #### U AMIC #### [facility] [address] [place] [address] Dr. [place], [facility] Retail Sales Merchandiser: Gal Katz MD PH,Ur 6.0 Normal 5.0-9.0 [facility] Comment on above: Performed By: #### U AMIC #### [facility] [address] [place] [address] Dr. [place], [facility] Retail Sales Merchandiser: Gal Katz MD Protein Ql (U) Negative Normal NEG [facility] Comment on above: Performed By: #### U AMIC #### [facility] [address] [place] [address] Dr. [place] [id number] Retail Sales Merchandiser: Gal Katz MD Spec. [place],Ur 1.025 High 1.010-1.020 [facility] Comment on above: Performed By: #### U AMIC #### [facility] [address] [place] [address] Retail Sales Merchandiser: Gal Katz MD Urine RBC's 2 TO 5 Normal 0-2 [facility] Comment on above: Performed By: #### U AMIC #### [facility] [address] [place], [place] [address] Retail Sales Merchandiser: Gal Katz MD Urine WBC's 2 TO 5 Normal 0-5 [facility] Comment on above: Performed By: #### U AMIC #### [facility] [address] [place] [address] Retail Sales Merchandiser: Gal Katz MD Urobilinogen,Ur Normal Normal 0.0-1.0 [facility] Comment on above: Performed By: #### U AMIC #### [facility] [address] [place], [place] [address] Retail Sales Merchandiser: Gal Katz MD Urinalysis with Microscopico n 04-27-2024 Bacteria LM Ql (Urine sed) 1+ Abnormal None [facility] Bilirubin Ql (U) Negative NE[facility]IVE [facility] Clarity (U) SLIGHTLY CLOUDY Abnormal Clear [facility] Color (U) Yellow Yellow [facility] Epithelial cells LM.HPF (Urine sed) [#/Area] 20 TO 50 [facility] Glucose Test strip (U) [Mass/Vol] Negative NEGATIVE mg/dL [facility] Hemoglobin Auto test strip Ql (U) 1+ Abnormal NEGATIVE [facility] Interpretation and review of laboratory results Abnormal [facility] Ketones (U) [Mass/Vol] Negative NEGATIVE mg/dL [facility] Leukocyte esterase Test strip Ql (U) Negative NEGATIVE [facility] Nitrite Ql (U) Negative NEGATIVE [place] [facility] pH (U) 6.0 [pH] 5.0 - 9.0 [facility] Protein (U) [Mass/Vol] Negative NEGATIVE mg/dL [facility] RBC LM.HPF (Urine sed) [#/Area] 2 TO 5 [facility] Specific gravity (U) [Rel density] 1.025 High 1.010 - 1.020 [facility] Urobilinogen Qn (U) Normal 0.0 - 1. 0 EU/dL [facility] WBC LM.HPF (Urine sed) [#/Area] 2 TO 5 [facility] COMPLETE BLOOD COUNTon 09-26 Erythrocyte distribution width (RBC) [Ratio] 13.7 % Normal 11.5-15.0 [facility] Comment on above: Performed By: #### Puneet BERNARD CMP, 58810-3, TSHR #### [facility] ([id number]) [address], [address] [place] [address] Hematocrit (Bld) [Volume fraction] 44.4 % Normal 35-47 [facility] Comment on above: Performed By: #### Puneet BERNARD CMP, 24103-1, TSHR #### [facility] ([id number]) [address], [address] [place] [address] Hemoglobin (Bld) [Mass/Vol] 15.1 g/dL Normal 11.7-15.5 [facility] Comment on above: Performed By: #### Puneet BERNARD CMP, 04905-2, TSHR #### [facility] ([id number]) [address], [address] [place] [address] MCH (RBC) [Entitic mass] 29.8 pg Normal 27-34 [facility] Comment on above: Performed By: #### Puneet BERNARD CMP, 07449-3, TSHR #### [facility] ([id number]) [address], [address] [place] [address] MCHC (RBC) [Mass/Vol] 34.0 g/dL Normal 32-36 [facility] Comment on above: Performed By: #### Puneet BERNARD CMP, 95196-6, TSHR #### [facility] ([id number]) [address], [address] [place] [address] MCV (RBC) [Entitic vol] 88 fL Normal 80-100 [facility] Comment on above: Performed By: #### Puneet BERNARD CMP, 01054-2, TSHR #### [facility] ([id number]) [address], [address] [place] [address] Platelet mean volume (Bld) [Entitic vol] 8.5 fL Normal 7-12 [facility] Comment on above: Performed By: #### Puneet BERNARD CMP, 09163-4, TSHR #### [facility] ([id number]) [address], [address] [place] [address] Platelets (Bld) [#/Vol] 302 10*3/uL Normal 150-450 [facility] Comment on above: Performed By: #### Puneet BERNARD CMP, 22703-5, TSHR #### [facility] ([id number]) [address], [facility] [address] [place] [address] RBC COUNT 5.07 X10E12/L Normal 3.80-5.20 [facility] Comment on above: Performed By: #### Puneet BERNARD CMP, 35266-5, TSHR #### [facility] ([id number]) [address], [address] [place] [address] WBC (Bld) [#/Vol] 6.1 10*3/uL Normal 4.0-11.0 [facility] Comment on above: Performed By: #### Puneet BERNARD, CMP, 81059-4, TSHR #### [facility] ([id number]) [address], [address] [place] [address] COMPREHENSIVE METABOLIC PANE Hermelindo 09-27-2023 Albumin [Mass/Vol] 4.4 g/dL Normal 3.2-5.3 [facility] Comment on above: Performed By: #### Puneet BERNARD, CMP, 68321-4, TSHR #### [facility] ([id number]) [address], [address] [place] [address] ALP [Catalytic activity/Vol] 62 U/L Normal 39-130 [facility] Comment on above: Performed By: #### C BC, CMP, 11941-3, TSHR #### [facility] ([id number]) [address], [address] [place] [address] ALT [Catalytic activity/Vol] 19 U/L Normal 0-31 [facility] Comment on above: Performed By: #### C JOANA, CMP, 09161-7, TSHR #### [facility] ([id number]) [address], [address] [place] [address] Anion gap [Moles/Vol] 9 mmol/L Normal 5-15 [facility] Comment on above: Performed By: #### Puneet BERNARD, CMP, 27331-6, TSHR #### [facility] ([id number]) [address], [address] [place] [address] AST [Catalytic activity/Vol] 19 U/L Normal 0-41 [facility] Comment on above: Performed By: #### Puneet BERNARD, CMP, 31008-2, TSHR #### [facility] ([id number]) [address], [address] [place] [address] Bilirubin [Mass/Vol] 0.7 mg/dL Normal 0.3-1.2 [facility] Comment on above: Performed By: #### C JOANA, CMP, 81867-6, TSHR #### [facility] ([id number]) [address], [address] [place] [address] Calcium [Mass/Vol] 9.5 mg/dL Normal 8.5-10.5 [facility] Comment on above: Performed By: #### Puneet BC, CMP, 64148-0, TSHR #### [facility] ([id number]) [address], [address] [place] [address] Chloride [Moles/Vol] 106 mmol/L Normal 98-109 [facility] Comment on above: Performed By: #### Puneet BERNARD CMP, 75379-3, TSHR #### [facility] ([id number]) [address], [address] [place] [address] CO2 [Moles/Vol] 24 mmol/L Normal 22-32 [facility] Comment on above: Performed By: #### Puneet BERNARD CMP, 78244-0, TSHR #### [facility] ([id number]) [address] [address] [place] [address] Creatinine [Mass/Vol] 0.75 mg/dL Normal 0.40-1.00 [facility] Comment on above: Result Comment: METH OD TRACEABLE TO IDMS STANDARD Performed By: #### Puneet BERNARD CMP, 87049-4, TSHR #### [facility] ([id number]) [address] [place] [address] eGFR (CKD-EPI) NON-RACE DEPENDENT >90 Normal >59 [facility] Comment on above: Result Comment: Reported eGFR is based on the CKD-EPI 2020 equation that does not use a race coefficient. Performed By: #### Puneet BERNARD CMP, 40259-5, TSHR #### [facility] ([id number]) [address], [address] [place] [address] Glucose [Mass/Vol] 70 mg/dL Normal 65-99 [facility] Comment on above: Performed By: #### Puneet BERNARD CMP, 19194-8, TSHR #### [facility] ([id number]) [address], [address] [place] [address] Potassium [Moles/Vol] 4.3 mmol/L Normal 3.5-5.0 [facility] Comment on above: Performed By: #### Puneet BERNARD CMP, 82389-4, TSHR #### [facility] ([id number]) [address], [facility] [address] [place] [address] Protein [Mass/Vol] 7.3 g/dL Normal 6.0-8.0 [facility] Comment on above: Performed By: #### Puneet BERNARD CMP, 10434-8, TSHR #### [facility] ([id number]) [address], [facility] [address] [place] [address] Sodium [Moles/Vol] 139 mmol/L Normal 134-146 [facility] Comment on above: Performed By: #### Puneet BERNARD CMP, 41669-3, TSHR #### [facility] ([id number]) [address], [facility] [address] [place] [address] Urea nitrogen [Mass/Vol] 9 mg/dL Normal 5-23 [facility] Comment on above: Performed By: #### Puneet BERNARD CMP, 74596-1, TSHR #### [facility] ([id number]) [address], [facility] [address] [place] [address] Lipid 1996 panelon 4 Cholesterol [Mass/Vol] 192 mg/dL Normal 150-200 [facility] Comment on above: Performed By: #### Puneet BERNARD CMP, 68635-3, TSHR #### [facility] ([id number]) [address] [address] Cholesterol in HDL [Mass/Vol] 61 mg/dL Normal >39 [facility] Comment on above: Result Comment: HDL <40 mg/dL - High Risk HDL > or = 40mg/dL- Desirable HDL >60 mg/dL - Negative Risk Performed By: #### Puneet BERNARD, CHASE, 57891-2, TSHR #### [facility] ([id number]) [address] [place] [address] Cholesterol in LDL [Mass/Vol] 118 mg/dL Normal <130 [facility] Comment on above: Result Comment: LDL <100 mg/dL - Desirable LDL >160 mg/dL - High Risk Performed By: #### Puneet BERNARD, CHASE, 26250-0, TSHR #### [facility] ([id number]) [address], [address] [place] [address] Cholesterol in VLDL [Mass/Vol] 13 mg/dL Normal 0-30 [facility] Comment on above: Performed By: #### Puneet BERNARD CMP, 39898-1, TSHR #### [facility] ([id number]) [address], [address] [place] [address] CHOLESTEROL:HDL 3.1 Normal 1.0-5.0 [facility] Comment on above: Performed By: #### Puneet BERNARD CMP, 00686-9, TSHR #### [facility] ([id number]) [address], [address] [place] [address] Triglyceride [Mass/Vol] 64 mg/dL Normal 27-150 [facility] Comment on above: Performed By: #### Puneet BERNARD CMP, 57987-0, TSHR #### [facility] ([id number]) [address], [address] [place] [address] TSH WITH REFLEXon 09-27-2023 TSH 1.21 uIU/mL Normal 0.49-4.67 [facility] Comment on above: Performed By: #### Puneet BERNARD, CMP, 20493-8, TSHR #### [facility] ([id number]) [address] [place] [address] HCG ( test) Ql (U)o n 05-31-2024 Beta HCG ( test) Ql (U) Negative Normal NEG [facility] Comment on above: Performed By: #### 2 106-3 #### [facility] ([id number]) [address] [facility] [place] [address] Surgical Pathologyon 024 Surgical Pathology Normal [facility] Comment on above: Result Comment: [facility] [address] [place] [address] Surgical Pathology Consultation Patient Name:SAPNA SERRANO:1995 (Age: 28)Gender:FTaken:4Reported:09/07/2023hysician(s):Haja Osullivan MD ([phone])Copy To: Rec. #:[id number]: #[id number] Final Pathologic Diagnosis Sigmoid colon biopsies: Unremarkable colonic mucosa. No colitis, granuloma or dysplasia identified. No microscopic colitis or inflammatory bowel disease identified. Report Electronically Signed Out ssi/09/07/2023Suharish Hayes M.D. Interpretation performed at [facility], [address] [place] [address], License number: [id number]. Clinical History Rectal bleeding. Gross Description Received in formalin labeled JEREMY, sigmoid BX are eight light cortes soft tissue bits, 0.2-0.4 cm.The specimen is filtered and entirely submitted in a single cassette. (1, ns, [id number],m3) DM. dm/09/04/2023O Specimen(s) Received Sigmoid biopsy Fee Codes(s): 1; 82067 CHLAMYDIA/GC PCR, FLon 08-09 CHLAMYDIA/GC PCR, FL [...] are dependent on adequate specimen collection. Normal [facility] Comment on above: Performed By: #### C GT #### [facility] ([id number]) [address] [facility] [place] [address] [facility] ([id number]) [address] [place] [address], [address] [place] [address] Cytologyon 08-10-2023 Cytology Normal [facility] Comment on above: Result Comment: [facility] [address] [place] [address] Gynecologic Cytology Consultation Patient Name:SAPNA SERRANO:1995 (Age: 28)Gender:FTaken:4Reported:08/26/2023hysician(s):Claire Kat M.D. ([phone])Copy To: Rec. #:[id number]: #[id number] Final Cytologic Interpretation ThinPrep Pap Test (Cervical): Satisfactory for evaluation. A transformation zone component is present. NEGATIVE FOR INTRAEPITHELIAL LESION OR MALIGNANCY. Shift in daniella suggestive of bacterial vaginosis. [facility]/08/26/2023 Interpretation performed at [facility], [address] [place] [address], License number: [id number]. Electronically Signed Out By JOSUÉ Kimble(ASCP) Date of Last Menstrual Period: 07/13/23 Other Clinical Conditions: Previous abnormal pap Z01.419 Perinatal Educator exam wo/abn findings Source of Specimen ThinPrep Pap Test (Cervical) Thin Prep Pap (HAIR MIXER) Fee Code(s): G0145 The Pap test is a screening test with an inherent, but low, probability of error. The Pap test is primarily effective for the diagnosis and prevention of squamous cell carcinoma. Regular screening is critical for prevention. ThinPrep liquid-based slides, which meet the Dope And Fabric Worker criteria for automated screening, have been screened by the ThinPrep Imaging System (as of 12/20/06) along with an additional manual rescreening by a office system analyst and, if indicated, by a pathologist. HIGH RISK HPV W/GENOon 08-09 HPV 31+33+35+39+45+51+5 2+56+58+59+66+68 DNA ALLISON+probe Ql (Cvx) HPV SPECIMEN TYPE ThinPrep HPV 16 Negative (qualifier value) HPV 18 Negative (qualifier value) OTHER HIGH RISK HPV Negative (qualifier value) HPV types 31,33,35,39,45,52,56, 58,59,66 and 68 DNA were undetectable. Normal [facility] Comment on above: Performed By: #### 7 1431-1 #### [facility] ([id number]) [address] [facility] [place] [address] [facility] ([id number]) [address] [facility] [place] [address] POCT , urineon Beta HCG ( test) Ql (U) Negative [facility] Interpretation and review of laboratory results Normal [facility] Vital Signs Date Time Vital Sign Value Performing Clinician Facility 06-08-2024 09:41-0500 Body weight 83.83 kg Curtis Jeannine DO Work Phone: [facility] 06-08-2024 09:41-0500 Diastolic blood pressure 70 mm[Hg] Curtis Jeannine DO Work Phone: [facility] 06-08-2024 09:41-0500 Systolic blood pressure 120 mm[Hg] Curtis Jeannine DO Work Phone: [facility] 05-09-2024 14:22-0500 Body weight 86.09 kg Curtis Jeannine DO Work Phone: [facility] 05-09-2024 14:22-0500 Diastolic blood pressure 72 mm[Hg] Curtis Jeannine DO Work Phone: [facility] 05-09-2024 14:22-0500 Systolic blood pressure 118 mm[Hg] Curtis Jeannine DO Work Phone: [facility] 05-05-2024 10:32-0500 Body weight 83.52 kg Noms Nurse [facility] 05-05-2024 10:32-0500 Diastolic blood pressure 78 mm[Hg] [facility] Nurse [facility] 05-05-2024 10:32-0500 Systolic blood pressure 120 mm[Hg] [facility] Nurse [facility] 04-27-2024 20:58-0500 SaO2% (BldA) [Mass fraction] 98 % Zully Vallejo MD Work Phone: [employer] 04-27-2024 17:53-0500 Body height 162.6 cm Zully Vallejo MD Work Phone: [employer] 04-27-2024 17:53-0500 Body mass index (BMI) [Ratio] 29.18 kg/m2 Zully Vallejo MD Work Phone: [employer] 04-27-2024 17:53-0500 Body temperature 98.8 [degF] Zully Vallejo MD Work Phone: [employer] 04-27-2024 17:53-0500 Body weight 77.11 kg Zully Vallejo MD Work Phone: [employer] 04-27-2024 17:53-0500 Diastolic blood pressure 93 mm[Hg] Zully Vallejo MD Work Phone: [employer] 04-27-2024 17:53-0500 Heart rate 90 /min Zully Vallejo MD Work Phone: [employer] 04-27-2024 17:53-0500 Respiratory rate 20 /min Zully Vallejo MD Work Phone: [employer] 04-27-2024 17:53-0500 Systolic blood pressure 150 mm[Hg] Zully Vallejo MD Work Phone: [employer] 01-27-2024 09:54-0400 Body height 162.6 cm Armen Sánchez DO Work Phone: [facility] [employer] 01-27-2024 09:54-0400 Body mass index (BMI) [Ratio] 28.15 kg/m2 Armen Furlong DO Work Phone: [facility] [employer] 01-27-2024 09:54-0400 Body temperature 97.7 [degF] Armen Furlong DO Work Phone: [facility] [employer] 01-27-2024 09:54-0400 Body weight 74.39 kg Armen [facility] 01-27-2024 09:54-0400 Diastolic blood pressure 72 mm[Hg] Armen Furlong DO Work Phone: [facility] [employer] 01-27-2024 09:54-0400 Heart rate 89 /min Armen Furlong DO Work Phone: [facility] [employer] 01-27-2024 09:54-0400 Respiratory rate 18 /min Armen Furlong DO [facility] 01-27-2024 09:54-0400 SaO2% (BldA) [Mass fraction] 99 % Armen Furlong DO Work Phone: [facility] [employer] 01-27-2024 09:54-0400 Systolic blood pressure 118 mm[Hg] Armen Furlong DO Work Phone: [facility] 10-27-2023 10:26-0400 Body height 162.6 cm Armen Furlong DO Work Phone: [facility] [employer] 10-27-2023 10:26-0400 Body mass index (BMI) [Ratio] 29.94 kg/m2 Armen Furlong DO Work Phone: [facility] [employer] 10-27-2023 10:26-0400 Body temperature 97.81 [degF] Armen Furlong DO Work Phone: [facility] 10-27-2023 10:26-0400 Body weight 79.11 kg Armen Furlong DO Work Phone: [facility] 10-27-2023 10:26-0400 Diastolic blood pressure 60 mm[Hg] Armen Furlong DO Work Phone: [facility] 10-27-2023 10:26-0400 Heart rate 71 /min Armen Furlong DO Work Phone: [facility] 10-27-2023 10:26-0400 SaO2% (BldA) [Mass fraction] 99 % Armen Furlong DO Work Phone: [facility] 10-27-2023 10:26-0400 Systolic blood pressure 100 mm[Hg] Armen Furlong DO Work Phone: [facility] 09-27-2023 10:05-0400 Body height 162.6 cm Armen Furlong DO Work Phone: [facility] 09-27-2023 10:05-0400 Body mass index (BMI) [Ratio] 30.59 kg/m2 Armen Furlong DO Work Phone: [facility] 09-27-2023 10:05-0400 Body temperature 97.81 [degF] Armen Furlong DO Work Phone: [facility] 09-27-2023 10:05-0400 Body weight 80.83 kg Armen Furlong DO Work Phone: [facility] 09-27-2023 10:05-0400 Diastolic blood pressure 62 mm[Hg] Armen Furlong DO Work Phone: [facility] 09-27-2023 10:05-0400 Heart rate 81 /min Armen Furlong DO Work Phone: [facility] 09-27-2023 10:05-0400 SaO2% (BldA) [Mass fraction] 99 % Armen Furlong DO Work Phone: [facility] 09-27-2023 10:05-0400 Systolic blood pressure 100 mm[Hg] Armen Furlong DO Work Phone: [facility] 09-01-2023 11:00-0400 Body height 162.6 cm Pmh 1 [facility] 09-01-2023 11:00-0400 Body mass index (BMI) [Ratio] 31.58 kg/m2 Pmh 1 [facility] 09-01-2023 11:00-0400 Body weight 83.46 kg Pmh 1 [facility] 08-25-2023 09:33-0400 Body height 162.6 cm Armen Furlong DO Work Phone: [facility] 08-25-2023 09:33-0400 Body mass index (BMI) [Ratio] 31.72 kg/m2 Armen Furlong DO Work Phone: [facility] 08-25-2023 09:33-0400 Body temperature 98.71 [degF] Armen Furlong DO Work Phone: [facility] 08-25-2023 09:33-0400 Body weight 83.83 kg Armen Furlong DO Work Phone: [facility] 08-25-2023 09:33-0400 Diastolic blood pressure 62 mm[Hg] Armen Furlong DO Work Phone: [facility] 08-25-2023 09:33-0400 Heart rate 89 /min Armen Furlong DO Work Phone: [facility] 08-25-2023 09:33-0400 Respiratory rate 18 /min Armen Furlong DO Work Phone: [facility] 08-25-2023 09:33-0400 SaO2% (BldA) [Mass fraction] 98 % Armen Furlong DO Work Phone: [facility] 08-25-2023 09:33-0400 Systolic blood pressure 98 mm[Hg] Armen Sánchez DO Work Phone: [facility] 08-10-2023 09:46-0400 Body height 162.6 cm Claire Kat MD Work Phone: [facility] 08-10-2023 09:46-0400 Body mass index (BMI) [Ratio] 33.3 kg/m2 Claire Kat MD Work Phone: [facility] 08-10-2023 09:46-0400 Body weight 88 kg Claire Kat MD Work Phone: [facility] 08-10-2023 09:46-0400 Diastolic blood pressure 70 mm[Hg] Claire Kat MD Work Phone: [facility] 08-10-2023 09:46-0400 Systolic blood pressure 128 mm[Hg] Claire Kat MD Work Phone: [facility] Encounters Encounter Date Encounter Type Care Provider Facility Start: 06-20-2024 End: 06-20-2024 Telephone encounter Lara Lovelace [facility] Start: 06-20-2024 End: 06-20-2024 Telemedicine consultation with patient Rachel Rodriguez [facility] Work Phone: [facility] Comment on above: Cystic fibrosis fletcher ier (Primary Dx); Abnormal genetic test during ; Family history of developmental delay; Family history of spina bifida Start: 06-20-2024 End: 06-20-2024 ambulatory CURT[facility] Start: 06-16-2024 End: 06-16-2024 Chart abstracting Scanning Provider External [facility] at [facility] Start: 06-08-2024 End: 06-08-2024 Bamboo flowsheet Curtis Jeannine DO Work Phone: [facility] Start: 06-08-2024 End: 06-08-2024 Bamboo flowsheet Curtis Jeannine DO Work Phone: [facility] Start: 06-08-2024 End: 06-08-2024 flow sheet Curtis Jeannine DO Work Phone: [facility] Comment on above: 13 weeks gestation o f ; Second trimester ; History of loop electrosurgical excision procedure (LEEP) of cervix affecting , antepartum Start: 05-24-2024 End: 05-24-2024 Clinical Support Emi Bronson [facility] Work Phone: [facility] Comment on above: Moderate episode of recurrent major depressive disorder (CMS/HCC); ALICIA (generalized anxiety disorder) (CMS/HCC) Start: 05-17-2024 End: 05-17-2024 Clinisync Result Encounter Curtis Jeannine DO Work Phone: [facility] External Department Unsolicited Start: 05-17-2024 End: 05-17-2024 Clinisync Result Encounter Curtis Jeannine DO Work Phone: [facility] External Department Unsolicited Start: 05-09-2024 End: 05-09-2024 Bamboo flowsheet Curtis Jeannine DO Work Phone: [facility] Start: 05-09-2024 End: 05-09-2024 Bamboo flowsheet Curtis Jaennine DO Work Phone: [facility] Start: 05-09-2024 End: 05-09-2024 flow sheet Curtis Jeannine DO Work Phone: [facility] Comment on above: Missed menses; 9 weeks gestation of ; H/O LEEP Start: 05-05-2024 End: 05-05-2024 Office outpatient visit 5 minutes [facility] Jeannine Nurse [facility] Comment on above: GA: 8w3d Start: 05-03-2024 End: 05-03-2024 Telephone encounter Armen Sánchez DO Work Phone: [facility] Start: 05-02-2024 End: 05-02-2024 Bamboo flowsheet Emi Bronson LPCC Work Phone: [facility] Start: 05-02-2024 End: 05-02-2024 Bamboo flowsheet Emi Bronson LPCC Work Phone: [facility] Start: 05-02-2024 End: 05-02-2024 Clinical Support Emi Bronson LPCC Work Phone: [facility] Comment on above: Moderate episode of recurrent major depressive disorder (CMS/HCC); ALICIA (generalized anxiety disorder) (CMS/HCC) Start: 04-27-2024 End: 04-27-2024 Emergency department patient visit Zully Vallejo MD Work Phone: [facility] Emergency Department Comment on above: Abdominal cramping ( Primary Dx); Arm contusion, right, initial encounter Start: 04-18-2024 End: 04-18-2024 Orders Only Aicha Richard LPN [facility] Comment on above: Positive t est (Primary Dx) Start: 01-27-2024 End: 01-27-2024 Office outpatient visit 15 minutes Armen Cedric Correiaandra DO Work Phone: [facility] Comment on above: Current episode of m ajor depressive disorder without prior episode, unspecified depression episode severity (Primary Dx); Overweight Start: 01-27-2024 End: 01-27-[address]HEZ [facility] Start: 01-21-2024 End: 01-21-2024 Refill Armen Cedric Correiapaulineazalea DO Work Phone: [facility] Start: 12-13-2023 End: 12-13-2023 Bamboo flowsheet Emi Bronson LPCC Work Phone: [facility] Start: 12-13-2023 End: 12-13-2023 Bamboo flowsheet Emi Bronson LPCC Work Phone: [facility] Start: 12-13-2023 End: 12-13-2023 Clinical Support Emi Bronson [facility] Work Phone: [facility] Comment on above: Moderate episode of recurrent major depressive disorder (HCC) (CMS/HCC); ALICIA (generalized anxiety disorder) (CMS/HCC) Start: 11-29-2023 End: 11-29-2023 Bamboo flowsheet Eim Davisdaro [facility] Work Phone: [facility] Start: 11-29-2023 End: 11-29-2023 Bamboo flowsheet Emi Davisdaro [facility] Work Phone: [facility] Start: 11-29-2023 End: 11-29-2023 Clinical Support Emi Bronson [facility] Work Phone: [facility] Comment on above: Moderate episode of recurrent major depressive disorder (HCC) (CMS/HCC); ALICIA (generalized anxiety disorder) ([facility]/HCC) Start: 10-27-2023 End: 10-27-2023 ambulatory [facility] Start: 10-27-2023 End: 10-27-2023 Office outpatient visit 25 minutes Armen Sánchez DO [facility] Comment on above: Overweight (Primary Dx); Anxiety; Depression, unspecified depression type; Onychomycosis Start: 10-18-2023 End: 10-18-2023 Telephone encounter Armen Sánchez DO Work Phone: [facility] Start: 10-03-2023 End: 10-04-2023 Refill Armen Sánchez DO Work Phone: [facility] Comment on above: Class 1 obesity due to excess calories with body mass index (BMI) of 31.0 to 31.9 in adult, unspecified whether serious comorbidity present Start: 09-27-2023 End: 09-27-2023 ambulatory [facility] Start: 09-27-2023 Encounter for genera l adult medical examination without abnormal findings [facility] Start: 09-27-2023 End: 09-27-2023 Patient encounter status Armen Sánchez DO Work Phone: [facility] Work Phone: Start: 09-27-2023 End: 09-27-2023 Periodic preventive med est patient 18-39 yrs Armen Sánchez DO Work Phone: [facility] Comment on above: Well adult health ch aashish (Primary Dx); Class 1 obesity due to excess calories without serious comorbidity with body mass index (BMI) of 31.0 to 31.9 in adult; Rectal bleeding; Onychomycosis; Benign skin lesion Start: 09-27-2023 End: 09-27-2023 ambulatory [facility] Start: 09-27-2023 Encounter for genera l adult medical examination without abnormal findings [facility] Start: 09-03-2023 End: 09-04-2023 Evaluation and management of inpatient [facility] Start: 09-02-2023 End: 09-02-2023 ambulatory [facility] Pat Phone Call Provider 1 [facility] - Pre Admit Start: 09-01-2023 End: 09-01-2023 ambulatory [facility] Start: 08-25-2023 End: 08-25-2023 ambulatory [facility] Start: 08-25-2023 End: 08-25-2023 Office outpatient new 45 minutes Armen Sánchez DO Work Phone: [facility] Comment on above: Rectal bleeding (Lucita sangeeta Dx); Mild major depression (CMS-HCC); Class 1 obesity due to excess calories with body mass index (BMI) of 31.0 to 31.9 in adult, unspecified whether serious comorbidity present Start: 08-10-2023 End: 08-10-2023 ambulatory CLAIRE [facility] Start: 08-10-2023 End: 08-10-2023 Encounter for gynecological examination (general) (routine) without abnormal findings [facility] Start: 08-10-2023 End: 08-10-2023 Initial preventive medicine new pt age 18-39yrs Claire Kat MD Work Phone: [facility] Comment on above: Encounter for gyneco logical examination without abnormal finding (Primary Dx); Screening for STD (sexually transmitted disease); Pap smear, as part of routine gynecological examination; Encounter for initial prescription of vaginal ring hormonal contraceptive Start: 08-10-2023 End: 08-10-2023 Patient encounter status Claire Kat MD Work Phone: [facility] Start: 08-10-2023 End: 08-10-2023 ambulatory [facility] Start: 08-10-2023 Encounter for gynecological examination (general) (routine) without abnormal findings [facility] Procedures Date Procedure Procedure Detail Performing Clinician Start: 06-08-2024 Urnls dip stick/tabl et rgnt non-auto w/o micrscp Curtis Jeannine DO Work Phone: Start: 05-17-2024 ALL CBC WITH AUTO DIFF Curtis Jeannine DO Work Phone: Start: 05-17-2024 BOX TEST Curtis Fazi o DO Work Phone: Start: 05-05-2024 End: 05-05-2024 Urnls dip stick/tablet rgnt non-auto w/o micrscp Curtis Jeannine DO Work Phone: Start: 04-27-2024 Us uterus 1 4 wk transabdl 04/05 gestat Zully Vallejo MD Work Phone: Start: 04-27-2024 Basic metabolic pane l calcium total Zully Vallejo MD Work Phone: Start: 04-27-2024 Blood typing serologic abo Zully Vallejo MD Work Phone: Start: 04-27-2024 Urnls dip stick/tabl et reagent auto microscopy Zully Vallejo MD Work Phone: Start: 01-27-2024 Follow-up visit Follow-up ARMEN SÁNCHEZ Start: 10-27-2023 Adult depression scr eening assessment Armen Sánchez DO Work Phone: Start: 09-27-2023 Adult depression scr eening assessment Armen Sánchez DO Work Phone: Start: 08-25-2023 Adult depression scr eening assessment Armen Sánchez [...] 60 yrs+ (1 - 1-dose 75+ series) [facility] Start: 08-16-2028 DTaP,Tdap and Td Vaccines (2 - Td or Tdap) DTaP,Tdap and Td Vaccines (2 - Td or Tdap) [facility] Start: 08-16-2028 DTaP/Tdap/Td vaccine (2 - Td or Tdap) DTaP/Tdap/Td vaccine (2 - Td or Tdap) [facility] Start: 08-09-2026 Screening for malign ant neoplasm of cervix Pap Smear [facility] Start: 02-24-2025 Tobacco Counseling Tobacco Counselin g [facility] Start: 01-26-2025 Adult BMI Screening Adult BMI Screen ing [facility] Start: 01-26-2025 Tobacco Screening Tobacco Screening [facility] Start: 10-26-2024 Adult BMI Screening Adult BMI Screen ing [facility] Start: 10-26-2024 Depression Screening Depression Scre ening [facility] Start: 10-26-2024 Tobacco Screening Tobacco Screening [facility] Start: 09-26-2024 Adult BMI Screening Adult BMI Screen ing [facility] Start: 09-26-2024 Depression Screening Depression Scre ening [facility] Start: 09-26-2024 Tobacco Screening Tobacco Screening [facility] Start: 09-02-2024 Adult BMI Screening Adult BMI Screen ing [facility] Start: 09-02-2024 Tobacco Screening Tobacco Screening [facility] Start: 08-24-2024 Adult BMI Screening Adult BMI Screen ing [facility] Start: 08-24-2024 Depression Screening Depression Scre ening [facility] Start: 08-24-2024 Tobacco Screening Tobacco Screening [facility] Start: 08-09-2024 Adult BMI Follow Up Plan Adult BMI Follow Up Plan [facility] Start: 08-09-2024 Adult BMI Screening Adult BMI Screen ing [facility] Start: 08-09-2024 Depression Screening Depression Scre ening [facility] Start: 07-28-2024 End: 07-28-2024 Patient encounter procedure [facility] Start: 07-06-2024 End: 07-06-2024 Patient encounter procedure 07/06/2024 8:30 AM EDT Routine [facility] [address] [place] [id number] Jocy Ruby PA [address] [place] [address] [facility] Start: 06-20-2024 End: 06-20-2024 Clinical Support [facility] Start: 06-08-2024 End: 06-08-2025 US Pelvis transvaginal US OB transvaginal Imaging Routine 13 weeks gestation of Second trimester History of loop electrosurgical excision procedure (LEEP) of cervix affecting , antepartum Expected: 06/08/2024, Expires: 06/08/2025 [facility] Work Phone: Comment on above: Expected: 06/08/2024 , Expires: 06/08/2025 Start: 06-08-2024 End: 06-08-2024 Patient encounter procedure 06/08/2024 9:20 AM EST Routine [facility] [address] [place] [address] Curtis Paez DO [address] [place] [address] [facility] Start: 05-24-2024 End: 05-24-2024 Clinical Support 05/24/2024 10:00 AM EST [facility] [address] [place] [address] Emi Bronson, [facility] [address] [place] [address] [facility] Start: 05-09-2024 End: 05-09-2024 Patient encounter procedure [facility] Comment on above: Arrived Start: 05-09-2024 End: 05-09-2025 US Pelvis transvaginal US OB transvaginal Imaging Routine H/O LEEP Expected: 05/09/2024, Expires: 05/09/2025 [facility] Comment on above: Expected: 05/09/2024 , Expires: 05/09/2025 Start: 05-05-2024 End: 05-05-2025 ABO/Rh ABO/Rh Lab Routine Missed menses , unspecified gestational age Expected: 05/05/2024 (Approximate), Expires: 05/05/2025 [facility] Comment on above: Expected: 05/05/2024 (Approximate), Expires: 05/05/2025 Start: 05-05-2024 End: 05-05-2025 Blood type and Indirect antibody screen panel - Blood Type and screen Lab Routine Missed menses , unspecified gestational age Expected: 05/05/2024 (Approximate), Expires: 05/05/2025 [facility] Work Phone: Comment on above: Expected: 05/05/2024 (Approximate), Expires: 05/05/2025 Start: 05-05-2024 End: 05-05-2025 Drugs of abuse panel - Urine by Screen method Rapid drug screen, urine Lab Routine , unspecified gestational age Encounter for supervision of normal first in first trimester Expected: 05/05/2024 (Approximate), Expires: 05/05/2025 [facility] Comment on above: Expected: 05/05/2024 (Approximate), Expires: 05/05/2025 Start: 05-05-2024 End: 05-05-2024 ambulatory 05/05/2024 10:00 AM EST Initial [facility] [address] [place] [id number] [facility] Start: 05-05-2024 End: 05-05-2024 Professional / ancillary services management 05/05/2024 9:30 AM EST Ancillary Procedure [facility] [address] [address] [facility] Start: 05-03-2024 End: 05-03-2024 Patient encounter procedure 05/03/2024 10:30 AM EST Office Visit [facility] [address] [place] [address] Armen Sánchez, DO [address], [facility] [place] [address] [facility] Start: 05-02-2024 End: 05-02-2024 Telemedicine consultation with patient 05/02/2024 10:45 AM EST Telemedicine [facility] [address] [place] [id number] Angela Monson, BAND AID MACHINE OPERATOR-SLIP COVER SEAMSTRESS [address] [place], [place] [id number] [facility] Start: 01-27-2024 End: 01-27-2024 Patient encounter procedure 01/27/2024 10:00 AM EDT Office Visit [facility] [address] [place] [address] Armen Sánchez, [address] [place] [address] [facility] Start: 12-27-2023 End: 12-27-2023 Clinical Support 12/27/2023 10:00 AM EDT Clinical Support [facility] [address] [place] [phone] Emi Bronson, [facility] [address] [place] [address] [facility] Start: 12-13-2023 End: 12-13-2023 Clinical Support 12/13/2023 11:00 AM EDT [facility] [address] [place] [phone] Emi Bronson, [facility] [address] [place] [address] [facility] Start: 12-05-2023 COVID-19 Vaccine ( season) COVID-19 Vaccine ( season) [facility] Start: 12-05-2023 Influenza vaccination Influenza Vacc ine [facility] Start: 11-04-2023 Influenza vaccination Flu vaccine (# 1) [facility] Start: 10-28-2023 End: 10-28-2023 Patient encounter procedure 10/28/2023 11:00 AM EDT Office Visit [facility] [address] [place] [address] Armen Sánchez, [address] [place] [address] [facility] Start: 10-27-2023 End: 10-27-2023 Patient encounter procedure 10/27/2023 10:15 AM EDT Office Visit [facility] [address] [place] [id number] Armen Sánchez, DO [address], [place] [address] [facility] Start: 09-27-2023 End: 09-27-2023 Patient encounter procedure 09/27/2023 10:00 AM EDT Office Visit [facility] Family [facility] [address] [place] [address] Armen Sánchez, DO [address], [place] [address] [facility] Start: 09-03-2023 End: 09-03-2023 Admission to same day surgery center 09/03/2023 1:30 PM EDT - 09/03/2023 2:30 PM EDT Surgery [facility] - Endoscopy [address] [place] [phone] Haja Osullivan, DO [address] [place] [address] COLONOSCOPY DIAGNOSTIC / SCREENING [75212 (CPT )] [facility] Comment on above: COLONOSCOPY DIAGNOST IC / SCREENING [10120 (CPT )] Start: 09-03-2023 End: 09-03-2023 Colonoscopy flx dx w/collj spec when pfrmd COLONOSCOPY DIAGNOSTIC / SCREENING rectal bleeding 09/03/2023 1:30 PM EDT [facility] Start: 09-03-2023 Subsequent hospital visit by physician 09/03/2023 1:30 PM EDT Hospital Encounter [facility] [address] [place] [address] Haja Osullivan, DO [address] [place] [address] [facility] Start: 09-02-2023 End: 09-02-2023 ambulatory 09/02/2023 2:00 PM EDT Support Visit [facility] - Pre Admit [address] [place] [address] [facility] - Pre Admit Start: 08-25-2023 End: 08-25-2023 Patient encounter procedure 08/25/2023 9:20 AM EDT [facility] [address] [place] [address] Armen Sánchez, DO [address] [facility] [place] [address] [facility] Start: 08-01-2023 Screening for malign ant neoplasm of cervix [facility] Start: 2014 Screening for malign ant neoplasm of cervix Pap smear [facility] Start: 2012 DTaP,Tdap and Td Vaccines (1 - Tdap) DTaP,Tdap and Td Vaccines (1 - Tdap) [facility] Start: 2012 Hepatitis B vaccine (1 of 3 - 19+ 3-dose series) Hepatitis B vaccine (1 of 3 - 19+ 3-dose series) [facility] Start: 08-01-2011 Adult BMI Follow Up Plan Adult BMI Follow Up Plan [facility] Start: 08-01-2011 Hepatitis C screening Hepatitis C sc reen [facility] Start: 2008 HIV screening HIV screen [facility] Start: 2006 Varicella vaccine (1 of 2 - 13+ 2-dose series) Varicella vaccine (1 of 2 - 13+ 2-dose series) [facility] Start: 2005 Depression Screen Depression Screen [facility] Start: 2005 Tobacco Screening Tobacco Screening [facility] Start: 08-01-1999 Pneumococcal 0-64 ye ars Vaccine (1 of 2 - PCV) Pneumococcal 0-64 years Vaccine (1 of 2 - PCV) [facility] Bacteria identified in Urine by Culture Urine culture Microbiology Routine Missed menses Ordered: 05/05/2024 [facility] Comment on above: Ordered: 05/05/2024 End: 09-26-2024 CBC panel - Blood by Automated count CBC Lab Routine Rectal bleeding 1 Occurrences starting 09/27/2023 until 09/26/2024 [facility] [employer] Comment on above: 1 Occurrences starti ng 09/27/2023 until 09/26/2024 CBC W Auto Different ial panel - Blood CBC and differential Lab Routine Missed menses , unspecified gestational age Ordered: 05/05/2024 [facility] [employer] Comment on above: Ordered: 05/05/2024 End: 08-09-2024 Chlamydia/GC by PCR ThinPrep fluid Chlamydia/GC by PCR ThinPrep fluid Microbiology Routine Pap smear, as part of routine gynecological examination 1 Occurrences starting 08/10/2023 until 08/09[facility]: [facility] Occurrences starti ng 08/10/2023 until 08/09/2024 End: 08-24-2024 Colonoscopy Colonoscopy GI Routine Rectal bleeding 1 Occurrences starting 08/25/2023 until 08/24/2024 [facility] [facility] Work Phone: Comment on above: 1 Occurrences starti ng 08/25/2023 until 08/24/2024 End: 09-26-2024 Comprehensive metabolic 2000 panel - Serum or Plasma Comprehensive metabolic panel Lab Routine Well adult health check 1 Occurrences starting 09/27/2023 until 09/26/2024 [facility] Work Phone: Comment on above: 1 Occurrences starti ng 09/27/2023 until 09/26/2024 End: 08-09-2024 Cytopathology procedure, preparation of smear, genital source Pap Smear Pathology and Cytology Routine Pap smear, as part of routine gynecological examination 1 Occurrences starting 08/10/2023 until 08/09/2024 [facility] Comment on above: 1 Occurrences starti ng 08/10/2023 until 08/09/2024 End: 04-18-2025 HCG, Quantitative, HCG, Quantitative, Lab Routine Positive test 1 Occurrences starting 04/18/2024 until 04/18/2025 [facility] Work Phone: Comment on above: 1 Occurrences starti ng 04/18/2024 until 04/18/2025 Hemoglobin A1c/Hemoglobin.total in Blood Hemoglobin A1c Lab Routine Missed menses , unspecified gestational age Ordered: 05/05/2024 [facility] Comment on above: Ordered: 05/05/2024 Hepatitis B virus surface Ag [Presence] in Serum or Plasma by Immunoassay Hepatitis B surface antigen Lab Routine Missed menses , unspecified gestational age Ordered: 05/05/2024 [facility] Comment on above: Ordered: 05/05/2024 Hepatitis C virus Ab [Presence] in Serum or Plasma by Immunoassay Hepatitis C antibody Lab Routine Missed menses , unspecified gestational age Ordered: 05/05/2024 [facility] Comment on above: Ordered: 05/05/2024 End: 08-09-2024 Hepatitis panel, acute Hepatitis panel, acute Lab Routine Screening for STD (sexually transmitted disease) 1 Occurrences starting 08/10/2023 until 08/09/2024 [facility] Comment on above: 1 Occurrences starti ng 08/10/2023 until 08/09/2024 End: 08-09-2024 High risk HPV w/faustina High risk HPV w/faustina Lab Routine Pap smear, as part of routine gynecological examination 1 Occurrences starting 08/10/2023 until 08/09/2024 [facility] Comment on above: 1 Occurrences starti ng 08/10/2023 until 08/09/2024 End: 08-09-2024 HIV 1&2 AB/AG Screen (P24 AG) HIV 1&2 AB/AG Screen (P24 AG) Lab Routine Screening for STD (sexually transmitted disease) 1 Occurrences starting 08/10/2023 until 08/09/2024 [facility] Work Phone: Comment on above: 1 Occurrences starti ng 08/10/2023 until 08/09/2024 HIV-1/HIV-2 antigen/antibody combination immunoassay HIV-1 and HIV-2 antibodies Lab Routine Missed menses , unspecified gestational age Ordered: 05/05/2024 [facility] Comment on above: Ordered: 05/05/2024 End: 09-26-2024 Lipid panel Lipid panel Lab Routine Well adult health check 1 Occurrences starting 09/27/2023 until 09/26/2024 [facility] Comment on above: 1 Occurrences starti ng 09/27/2023 until 09/26/2024 Reagin Ab [Presence] in Serum by RPR RPR Lab Routine Missed menses , unspecified gestational age Ordered: 05/05/2024 [facility] Comment on above: Ordered: 05/05/2024 Rubella antibody, IgG Rubella an tibody, IgG Lab Routine Missed menses , unspecified gestational age Ordered: 05/05/2024 [facility] Comment on above: Ordered: 05/05/2024 End: 08-09-2024 Syphilis Total(Unknown Syphilis Status) Syphilis Total(Unknown Syphilis Status) Lab Routine Screening for STD (sexually transmitted disease) 1 Occurrences starting 08/10/2023 until 08/09/2024 [facility] Comment on above: 1 Occurrences starti ng 08/10/2023 until 08/09/2024 Thyrotropin [Units/volume] in Serum or Plasma TSH Lab Routine Missed menses Ordered: 05/09/2024 [facility] Work Phone: Comment on above: Ordered: 05/09/2024 End: 09-26-2024 TSH with Reflex TSH with Reflex Lab Routine Class 1 obesity due to excess calories without serious comorbidity with body mass index (BMI) of 31.0 to 31.9 in adult 1 Occurrences starting 09/27/2023 until 09/26/2024 [facility] Comment on above: 1 Occurrences starti ng 09/27/2023 until 09/26/2024 Immunizations Immunization Date Immunization Notes Care Provider Ebenezer mojica 08-16-2018 tetanus toxoid, redu andrew diphtheria toxoid, and acellular pertussis vaccine, adsorbed Armen Sánchez DO Work Phone: [facility] Payers Date Payer Category Payer Unknown [id number] 2023 [facility] [employer] [id number] 2023 Private Health Insurance [id number] 2023 Unknown [id number] 2023 Unknown [id number] 1993 Unknown [id number] [id number]. 2.1285 1993 Unknown [id number] 2.16840.1.801200.3.579. 2.1285 1993 Unknown [id number] [id number]. 2.1285 1993 Unknown [id number] [id number]. 2.1285 1993 Unknown [id number] [id number]. 2.1285 1993 Unknown [id number] [id number]. 2.1285 1993 Unknown [id number] [id number]. 2.1285 1993 Unknown [id number] [id number]. 2.1286 1993 Unknown [id number] [id number]. 2.1286 1993 Unknown [id number] [id number]. 2.173 1993 Unknown [id number] [id number]. 2.1286 1993 Unknown [id number] [id number]. 2.1286 Social History Date Type Detail Facility Tobacco smoking stat [facility] Tobacco smoking consumption unknown [facility] Start: 1995 Sex assigned at Female N [facility] Start: 10-25-2023 Gender identity Identifies as female gender (finding) [facility] Start: 08-25-2023 End: 10-27-2023 Sexual orientation Not on file [facility] Start: 08-01-2011 End: 08-25-2023 Tobacco smoking status MIIS Smokes tobacco daily [facility] Start: 08-01-2011 History of tobacco use Cigarette Smo ker [facility] Start: 08-25-2023 End: 10-27-2023 Cigarettes smoked current (pack per day) - Reported 1 [facility] Start: 08-10-2023 End: 08-25-2023 Tobacco use and exposure Smokeless tobacco non-user [facility] Start: 01-27-2024 End: 06-16-2024 Alcoholic beverage intake Ex-drinker (finding) [facility] Has the [employer], or [employer] threatened to shut off services in your home in past 12Mo No [facility] Are you now , , , , never or living with a partner? Never [facility] How often to you hav e a drink containing alcohol? Never [facility] How many standard drinks containing alcohol do you have on a typical day? Patient does not drink [facility] How hard is it for y ou to pay for the very basics like food, housing, medical care, and heating Somewhat hard [facility] Do you feel stress - tense, restless, nervous, or anxious, or unable to sleep at night because your mind is troubled all the time - these days [OSQ] To some extent [facility] Start: 1995 Sex assigned at Not on file [facility] Start: 11-08-2014 Sex Female (finding) [facility] Start: 03-21-2024 [facility] Goals Date Patient Goal Desired Activity /State Personal health goal Clinical Notes 08-10-2023 to 06-20-2024 Telephone Encounter - Lara Lovelace - 06/20/2024 3:27 PM EDTTelephone Encounter - Lara Lovelace - 06/20/2024 3:27 PM EDMane Rodriguez [facility] - 06/20/2024 9:00 AM EDTDischarge InstructionsAttachments Note Date & Type Note Facility 06-20-2024 Miscellaneous Notes Left a message for pt about her amnio that Jocy Vargas scheduled. I will call her back tomorrow to make sure she received my message, documented in this encounter [facility] 06-20-2024 Telephone encounter Note Left a message for pt about her amnio that Jocy F scheduled. I will call her back tomorrow to make sure she received my message, [facility] 06-20-2024 History of Present illness Narrative Summary: [facility] Genetic Counseling Note Images from the original note were not included. Provider at different site/location than patient. I confirmed the patient is located in the [facility]. Sapna Serrano is currently at home and provider at remote site. The patient consented to be treated electronically via this form of telemedicine. This visit was not related to an office visit or procedure in the past 7 days, and in-office follow up is not recommended in the next 24 hours. Video Visit via Real-time Synchronous Audiovisual Provider Location: [facility] AT [address] [id number] Patient Location: Patient's home Patient Location Biochemical Development Engineer: None Video Visit Consent Statement: I discussed risks, benefits, and alternatives of a real-time synchronous audiovisual consultation with the patient (and any accompanying persons) including the risks that the patient's personal health details and medical records will be discussed over real-time, synchronous, interactive video/audio/telecommunication technology, the visit will not be recorded without the express consent of both the provider and the patient, and that there are some limitations compared to [id number]-[id number] evaluations. We elected to proceed. Name: Sapna Serrano DOB: 1995 Date of Visit: 06/20/2024 Email: [email or web address] Preferred contact method: mychart Requesting Physician: Curtis Paez DO [address] [place] [address] [place] [address] Reason for Referral: Sapna Serrano is a 28 y.o. female who presented to [facility] accompanied by their mother, Angela, for a genetic counseling visit. Sapna is here at the request of Curtis Paez DO due to abnormal carrier screening results (cystic fibrosis carrier with high risk to fetus) in . Obstetric and history: Estimated Date of Delivery: 12/12/24 based on LMP of 03/07/2024. Gestational age: 15w0d OB History Para Term AB Living 1 0 0 0 0 0 SAB IAB Ectopic Multiple Live Births 0 0 0 0 0 # Outcome Date GA Lbr Дмитрий/2nd Weight Sex Type Anes PTL Lv 1 Current Current history is significant for: none reported Past /delivery complications: N/A Medical History: Past Medical History: Diagnosis Date Abnormal Pap smear of cervix Anxiety Cystic fibrosis carrier Depression HPV (human papilloma virus) infection Rectal bleed Visual impairment Ms. Serrano denied a personal history of diabetes, hypertension, hypothyroidism, infertility and other chronic medical conditions. Medications: No current outpatient medications or facility-administered medications were updated during this visit. Please review referring office's note for the most up to date patient medication list. Exposures/Complications: Alcohol: NO Drugs: NO Cigarettes: YES X-Rays/CT/radiation: NO Illnesses: NO Infections: NO Rashes: NO Spotting/bleeding: NO Other exposures: NO Testing already completed during current : First Trimester Screen: NO Maternal Serum Screen: NO Non Invasive Screen: YES - low risk Performing lab: [facility] Conditions screened: Trisomy 13, Trisomy 18, Trisomy 21, sex chromosome aneuploidies sex predicted: female fraction: 5.8% Drawn on: 05/17/2024 Carrier Screening: YES - carrier for cystic fibrosis, high risk fetus Performing lab: [facility] Test type: UNITY Screen Carrier Screen with Reflex sgNIPT Drawn on: 05/17/2024 CVS: NO Amniocentesis: NO TORCH Screening: YES Rubella, IgG: positive - considered immune Other screening/testing: YES ABO/Rh: A positive Antibody screen: negative Ultrasounds: Ultrasound on 04/27/2024 at 7w2d gestation showed: 1) Single viable intrauterine with an estimated gestational age of 7 weeks 2 days and an estimated date of delivery of 12/12/2024 with no gross abnormality seen. 2) Normal size right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
--- NOTE | 2024-07-05 07:04 | US_ITS ---
The [address] [address] Patient Name: MICHI LUNA MRN: [id number] date: 1995 Sex: F Assigned Patient Location: Current Patient Location: Accession/Order Number: [id number] Exam Date: 07/05/2024 08:08 Report Date: 07/05/2024 08:10 At the request of: MAGAN TRISTAN DO Procedure: US OB cervical length ULTRASOUND OB CERVICAL LENGTH CLINICAL DATA: History of LEEP COMPARISON: None There is a single live intrauterine gestation in breech presentation. The reported gestational age is 17 weeks 1 day. Cardiac and somatic activity is present with heart rate of 166 bpm. The amniotic fluid volume appears subjectively normal. The cervix was evaluated with the transvaginal probe. The cervix is closed. Estimated length is 4.5 cm. US/US OB cervical length IMPRESSION: CLOSED CERVIX MEASURING 4.5 CM IN LENGTH. Impression dictated by: Laura Rahman M.D.07/05/2024 8:10 AM Dictation Location: [facility] Electronically authenticated by: [id number] Y Date: 07/05/2024 08:10
== END 2024-07-05 07:00 | disposition home or self-care (01) ==
LOC: US 06:59
PROVIDERS: PCP Family Medicine; Visit Provider Obstetrics & Gynecology
DX: O34.42 Maternal care for other abnormalities of cervix, second trimester (principal); Z3A.17 17 weeks gestation of pregnancy; Z98.890 Other specified postprocedural states
CPT/HCPCS: 76817

== ENCOUNTER 2024-07-06 09:53 | Outpatient (OUT) | payer OTHER, SELFPAY ==
[2024-07-08 02:07] LABS: AFP Value 28.4 ng/mL (.); Gest. Age on Collection Date 17.1 weeks (.); Insulin Dep Diabetes No (.); Maternal Age At EDD 31.3 yr (.); OSBR Risk 1 IN 10000 (.); Results Report (.)
== END 2024-07-06 09:54 | disposition home or self-care (01) ==
LOC: LAB 09:55
PROVIDERS: PCP Family Medicine; Visit Provider Physician Assistant
DX: Z34.92 Encounter for supervision of normal pregnancy, unspecified, second trimester (principal)
CPT/HCPCS: 36415; 82105; 88175

== ENCOUNTER 2024-07-06 12:09 | Outpatient (REF) | payer OTHER, SELFPAY | END 2024-07-06 12:10 | disposition home or self-care (01) | LOC: LAB 12:09 | PROVIDERS: PCP Family Medicine; Visit Provider Physician Assistant | DX: Z01.419 Encounter for gynecological examination (general) (routine) without abnormal findings (principal) | CPT/HCPCS: 87624; 88175 ==

== ENCOUNTER 2024-08-30 10:34 | Outpatient (OUT) | payer OTHER, SELFPAY ==
[2024-08-30 11:33] LABS: Basophils Absolute Auto 0.1 10^3/uL (0.0-0.1); Basophils Percent Auto 0.7 % (0.2-2.0); Eosinophils Absolute Auto 0.2 10^3/uL (0.0-0.7); Eosinophils Percent Auto 1.8 % (0.9-7.0); Hematocrit 38.8 % (36.0-48.0); Immature Granulocytes Abs Auto 0.06 10^3/uL (0.00-0.03); Immature Granulocytes Pct Auto 0.5 % (0.0-0.5); Lymphocytes Absolute Auto 2.1 10^3/uL (1.2-3.8); Lymphocytes Percent Auto 17.6 % (20.5-60.0); Mean Corpuscular HGB Conc 33.5 g/dL (29.9-35.2); Mean Corpuscular Hemoglobin 30.1 pg (26.7-34.0); Mean Corpuscular Volume 89.8 fL (81.0-99.0); Mean Platelet Volume 9.6 fL (9.5-13.5); Monocytes Absolute Auto 0.7 10^3/uL (0.3-0.8); Neutrophils Absolute Auto 8.6 10^3/uL (1.4-6.5); Neutrophils Percent Auto 73.4 % (43.0-75.0); Platelet Count 272 10^3/uL (150-450); Red Blood Count 4.32 10^6/uL (4.20-5.40); Red Cell Distribution Width 13.7 % (11.0-15.0); White Blood Count 11.8 10^3/uL (4.0-11.0)
[2024-08-30 11:49] LABS: Glucose 1 Hour 66 mg/dL (<130)
== END 2024-08-30 10:35 | disposition home or self-care (01) ==
LOC: LAB 10:36
PROVIDERS: PCP Family Medicine; Visit Provider Obstetrics & Gynecology
DX: Z13.1 Encounter for screening for diabetes mellitus (principal)
CPT/HCPCS: 36415; 82950; 85025

== ENCOUNTER 2024-09-14 16:03 | Observation (INO) | payer OTHER, SELFPAY ==
--- OUTSIDE RECORDS SUMMARY | 2014-12-19 09:30 | XMS_ITS | Continuity of Care Document ---
Author Organization [facility] Address [address] [place] [address] Phone Care Team Providers Care Test Consultant Name Role Phone Yasmin Turcios MD Unavailable [...] Diagnoses Date Provider Providers Copied on Encounter [facility], [address], [place], [place], [id number], tel:[phone] [facility] No Information Dec- 5 Tam NULL Yasmin[address] [place], [place], [id number], [place]. tel:[phone] [facility], [address], [place], [place], [address], tel:[phone] [facility] contraception (chief complaint) Test - NegativeSubse q. Contraceptive Surveillance Dec- 0 5 Tam [address] [place], [place], [address], [place]. tel:[phone] Init Preven Meds E&m New Pt; 18-39 [facility], [address], [place], [place], [address], [place] tel:[phone] [facility] annual exam (chief complaint) ROUTINE RISK REDUCTION COUNSELOR EXAMINATIONPr egnancy Test - Negative Tam NULL Yasmin. [address] [place], [place], [address], [place]. tel:[phone] Family History Family Member Type Diagnosis Age At Onset Paternal grandmother Problem (finding) breast cancer Payers Payer name Insurance type Covered alliance party ID Authoriza tion(s) [place] [facility] [place] [id number] Social History Type Description Quantity Date Captured [...]
--- OUTSIDE RECORDS SUMMARY | 2024-09-07 10:30 | XMS_ITS | Encounter Summary ---
Author Organization [email or web address] [facility] tem Address [id number] [address] [place] [address] Care Team Providers Care Wire Drawing Machine Operator Name Role Phone PrincessArmen Cedric [place] Primary Care Provider Encounter Details Date Type Department Care Team (Late st Contact Info) Description 09/07/2024 10:30 AM EDT [facility] [address] [place] [address] [address] [place] [id number] [place] [address] [place] [address], [address] [place], [place] [id number] 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); Encounter for consultation Social History Tobacco Use Types Packs/Day Years Used Date Smoking Tobacco: Every Day Cigarettes 1 13.1 Started: 08/01/2011 Smokeless Tobacco: Never Alcohol Use Standard Drinks/Week Comments Not Currently 0 (1 standard drink = 0.6 oz pur e alcohol) [facility] Utilities Answer Date Recorded In the past 12 months has th [employer] electric, gas, oil, or water company threatened to shut off services in your home? No 08/25/2023 Social Connection and Isolation Panel [NHANES] A nswer Date Recorded In a typical week, how many times do you talk on the phone with family, friends, or neighbors? Three times a week 01/27/2024 How often do you get togethe r with friends or relatives? Once a week 01/27/2024 How often do you attend [facility] or orthodox services? Never 01/27/2024 Do you belong to any clubs o r organizations such as hindu groups, unions, fraternal or athletic groups, or school groups? No 01/27/2024 How often do you attend meet ings of the clubs or organizations you belong to? Never 01/27/2024 Are you , , di vorced, , never , or living with a partner? Never 01/27/2024 AUDIT-C Answer Date Recorded Q1: How often do you have a drink containing alcohol? Never 08/25/2023 Q2: How many drinks containi ng alcohol do you have on a typical day when you are drinking? Patient does not drink Q3: How often do you have si x or more drinks on one occasion? Never 08/25/2023 Overall Financial Resource Strain (CARDIA) Answe r Date Recorded How hard is it for you to pa y for the very basics like food, housing, medical care, and heating? Somewhat hard 08/22/2023 PHQ-2 Answer Date Recorded Total Score 0 10/27/2023 [facility] - Occupational Stress Questionnaire Answer Date Recorded Do you feel stress - tense, restless, nervous, or anxious, or unable to sleep at night because your mind is troubled all the time - these days? To some extent 08/25/2023 Exercise Vital Sign Answer Date Recorde d On average, how many days pe r week do you engage in moderate to strenuous exercise (like a brisk walk)? 7 days 10/27/2023 On average, how many minutes do you engage in exercise at this level? 20 min 10/27/2023 PRAPARE - Transportation Answer Date Re corded In the past 12 months, has l ack of transportation kept you from medical appointments or from getting medications? No 08/03 In the past 12 months, has l ack of transportation kept you from meetings, work, or from getting things needed for daily living? No 08/22/2023 Housing Instability Answer Date Recorde d Are you worried or concerned that in the next two months you may not have stable housing that you own, rent or stay in as a part of a household? No 08/22/2023 Childcare Answer Date Recorded Do problems getting child ca re make it difficult for you to work or study? No 08/25/2023 Employment Answer Date Recorded Do you need help finding a [facility] career center and/or a training program? No 08/25/2023 Hunger Screening Answer Date Recorded Within the past 12 months we worried whether our food would run out before we got money to buy more. Never True 07/28/2024 Within the past 12 months th e food we bought just didn't last and we didn't have money to get more. Never True 07/28/2024 Purpose - Life Answer Date Recorded I have a purpose and direction in my life. Agree 08/25/2023 Estimated Date of Delivery Comme nts Yes 12/12/2024 Based on last me nstrual period of 03/07/2024, test negative 09/03/23 at 1242 Sex and Gender Information Value Date Recorded Sex Assigned at Not on file Legal Sex Female 11:52 AM EDT Gender Identity Not on file Sexual Orientation Not on file documented as of this encounter Progress Notes * Rashida Silva MD - 09/07/2024 10:30 AM EDT [facility] Consultation Visit CHIEF COMPLAINT: No chief complaint on file. HISTORY OF PRESENT ILLNESS: Sapna is a 29 y.o. female who is here for initial consultation regarding amniocentesis indicating fetus with to cystic fibrosis causing genetic variants. She was referred for consultation at the [facility] by her maternal medicine specialist, Dr. Valencia, and by her genetic counselor. Sapna voiced that she is interested in learning about cystic fibrosis and understanding what to expect after the baby is born. She is accompaniedby her mother, Angela, for the visit today. Sapna underwent cell free DNA testing ([facility] NIPT) which indicated that the fetus is at high risk for cystic fibrosis. Both parents are known to be carriers of a CFTR variant. She underwent amniocentesis which indicated two CF causing variants ([id number] and T9331C). This is mom's first . There is no known family history of cystic fibrosis. M specialist-Dr. Valencia, clinic note reviewed from 07/28/2024, and spoke with Dr. Valencia who noted that most recent ultrasound did not show echogenic bowel/evidence for meconium ileus. DISCUSSION: I provided an overview of cystic fibrosis. I discussed and answered questions about how cystic fibrosis affects the body and the primary problems that are associated with cystic fibrosis. We discussed overall care of CF. I discussed what to expect after including screening, fecal elastase, and later on sweat chloride testing. The 2 variants ([id number] and [id number]) that were identified by amniocentesis are highly likely to be associated with pancreatic insufficiency based on the [id number]. Therefore, we discussed that if she is pancreatic insufficient, pancreatic enzyme replacement as needed. We discussed that salt supplementation and CF multivitamin would be started shortly after as well. I briefly discussed the pulmonary problems associated with CF, discussed airwayclearance therapies. I discussed modulator therapies and the age which those may be started. I alsoinformed them that there have been recent cases of MAURO modulator therapy given to carrier mother's in order to benefit the baby. I explained that we do not have any formal studies regarding t hat, and certainly that the modulator therapies are not FDA approved for that indication. I explained that in the case of echogenic bowel seen on ultrasound indicating possible meconium ileus, there have been case reports showing resolution of those ultrasound findings when the mother has taken MAURO. Mom indicated that she may be open to further discussion of taking MAURO modulator therapy if those changes were found on subsequent ultrasound. I explained our CF Center, care model, and team approach. Other CF team members introduced themselves today. We also discussed the importance of primary care physician for the baby. An informational booklet was provided to the family today. I let them know that we are open to questions at any time and they should feel free to call the office with any further questions. We will continue with close care coordination with Maternal- Medicine. I let the family know that we would plan to see the baby very shortly after , within the 1st week after . Thank you very much for this referral. It was my pleasure to meet with this family today. Please donot hesitate to call at any time with any questions. Total Time during encounter: 50 min Obtaining and reviewing records- 10 min Educating and counseling patient- 30 min Communicating with other healthcare professionals- 5 min Documenting patient record- 5 min documented in this encounter Plan of Treatment Upcoming Encounters Date Type Department Care Team (Late st Contact Info) Description 09/29/2024 3:00 PM EDT Appointment [facility] [address] [place] [phone] Suresh Valencia MD [address] [place] [address] documented as of this encounter Visit Diagnoses Diagnosis 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 Encounter for consultation documented in this encounter Additional Health Concerns Assessment Noted Time PHQ-9 Depression Total Score: 0 10/27/19 10:25 AM EDT A Body Mass Index follow-up plan has been documented for the patient 08/10/2023 10:14 AM EDT documented as of this encounter Care Teams Wire Drawing Machine Operator Relationship Specialty Start Date End Date Armen Sánchez DO [address] [facility], [facility] [place] [address] PCP - General Family Medicine 08/25/23 documented as of this encounter
--- OUTSIDE RECORDS SUMMARY | 2024-09-10 21:51 | XMS_ITS | Encounter Summary ---
Demographics Address [address] [place] [address] Home Phone Work Phone Mobile Phone Email Address Preferred Language Belarusian Marital Status Single Denominational Affiliation Unknown Race White Ethnic Group Not or Lati no Author Organization [facility] Address [address] [place] [address] Care Team Providers Care Ballistics Teacher Name Role Phone Armen Sánchez DO Primary Care Provider Encounter Details Date Type Department Care Team (Latest Contact Info) Description 09/10/2024 9:51 PM EDT - 09/11/2024 12:42 AM EDT Hospital Encounter [facility] Labor and Delivery [address] [phone] Victorino Christie DO [address] [place] [phone] Discharge Disposition: Home or Self Care Social History Tobacco Use Types Packs/Day Years Used Date Smoking Tobacco: Every Day Cigarettes 1 10 Smokeless Tobacco: Never Alcohol Use Standard Drinks/Week Comments Not Currently 0 (1 standard drink = 0.6 oz pur e alcohol) PHQ-2 Answer Date Recorded PHQ-2 Score 0 08/16/2018 Interpersonal Safety Domain Source: IP Abuse Scr eening Answer Date Recorded Physical abuse Denies 09/10/2024 Verbal abuse Denies 09/10/2024 Emotional abuse Denies 09/10/2024 Financial abuse Denies 09/10/2024 Sexual abuse Denies 09/10/2024 Comments Yes Sex and Gender Information Value Date Recorded Sex Assigned at Not on file Legal Sex Female 9:21 AM EST Gender Identity Not on file Sexual Orientation Not on file documented as of this encounter Last Filed Vital Signs Vital Sign Reading Time Taken Comments Blood Pressure 127/73 09/10/2024 11:35 PM EDT Pulse 75 09/10/2024 11:35 PM EDT Temperature 36.7 C (98.1 F) 09/10/2024 10:22 PM EDT Respiratory Rate 16 09/10/2024 10:22 PM EDT Oxygen Saturation 98% 09/10/2024 10:22 PM EDT Inhaled Oxygen Concentration - - Weight - - Height - - Body Mass Index - - documented in this encounter Discharge Instructions * Discharge Instructions* Brenda Lancaster RN - 09/11/2024 12:32 AM EDT OUTPATIENT DISCHARGE Dr. Marlen Don [facility] Dr. Lillian Maldonado CN 45 [facility] [address] [facility] [address] [place] [address] Lillian NULL [facility] 1917 [facility] [address] [phone] Tamara Myers, MSN, DRAPERY ROD ASSEMBLER, CNM [place] [id number] [address] [facility] [address] [address] [facility] [address] Antoinette Macdonald CNM [address] [place] [address] [place] [address] Gemma Benson CNM [address] [place] [address] [phone] ACTIVITY LIMITATIONS: ( )Up and about as desired and tolerated ( )Up to bathroom only ( )Lay on either side ( )Avoid heavy lifting or exercise ( )No sex ( )No nipple stimulation ( )Complet bedrest ( )Avoid using stairs ( )Increase fluids DRINK AT LEAST eight-8oz. Glasses of water daily. Call your Doctor if: ( x )Contractions are every 5 minutes apart (from start of one to the start of the next contraction) lasting 60 seconds for at least 1 hour, strong enough you can not walk or talk through the contraction and regular. ( x )Bag of water breaks ( x )Vaginal bleeding ( x )Unusual pain occurs ( x )Decreased movement ( x ) labor: If you have 4 contractions in an hour Keep your scheduled follow up appointment. Or call for a follow up on 09/11/2024. IN CASE OF EMERGENCY CONTACT LABOR AND DELIVERY . documented in this encounter Medications at Time of Discharge polyethylene glycol (GLYCOLAX) 17 GM/SCOOP powder 17 g daily as directed until stools are soft and then as needed 510 g 5 04/27/2024 azithromycin (ZITHROMAX) 250 MG tablet 08/15/2018 NUVARING 0.12-0.015 MG/24HR vaginal ring 3 08/09/2018 documented as of this encounter Plan of Treatment Not on file documented as of this encounter Procedures Procedure Name Priority Date/Time Associated Diagnosis Comments US OB 1 OR MORE FETUS LIMITED STAT 09/10/2024 11:35 PM EDT documented in this encounter Results * US OB 1 OR MORE FETUS LIMITED (09/10/2024 11:35 PM EDT) Anatomical Region Laterality Modality Abdomen Ultrasound 09/11/2024 2:02 AM EDT Impressions 09/11/2024 2:05 AM EDT 1. Single live intrauterine with a heart rate of 153 beats per minute. 2. Anterior placenta. No hemorrhage definitely seen. Narrative 09/11/2024 2:05 AM EDT EXAMINATION: TRIMESTER OBSTETRIC ULTRASOUND 09/10/2024 TECHNIQUE: ULTRASOUND BIOPHYSICAL PROFILE WITHOUT NON-STRESS TEST COMPARISON: 04/27/2024. HISTORY: ORDERING SYSTEM PROVIDED HISTORY: blunt trauma to abodmin TECHNOLOGIST PROVIDED HISTORY: If unable to get a BPP please get a assessment blunt trauma to abodmin FINDINGS: A single live intrauterine is present. heart rate measures 153 beats per minute. There is normal body and limb movement. The fetus is in breech position. The placenta is located anterior. Cervical length measures 4.7 cm cm. The amniotic fluid volume is subjectively within normal limits. Procedure Note Eldon Maldonado MD - 09/11/2024 EXAMINATION: TRIMESTER OBSTETRIC ULTRASOUND 09/10/2024 TECHNIQUE: ULTRASOUND BIOPHYSICAL PROFILE WITHOUT NON-STRESS TEST COMPARISON: 04/27/2024. HISTORY: ORDERING SYSTEM PROVIDED HISTORY: blunt trauma to abodmin TECHNOLOGIST PROVIDED HISTORY: If unable to get a BPP please get a assessment blunt trauma to abodmin FINDINGS: A single live intrauterine is present. heart ratemeasures 153 beats per minute. There is normal body and limb movement. Thefetus is in breech position. The placenta is located anterior. Cervicallength measures 4.7 cm cm. The amniotic fluid volume is subjectively within normal limits. IMPRESSION: 1. Single live intrauterine with a heart rate of 153 beats per minute. 2. Anterior placenta. No hemorrhage definitely seen. us Victorino Christie DO IM US ORDERABLES Final Resu lt documented in this encounter Visit Diagnoses Diagnosis Blunt trauma to abdomen, initial encounter- Primary documented in this encounter Admitting Diagnoses Diagnosis Blunt trauma to abdomen, initial encounter documented in this encounter Care Teams Ballistics Teacher Relationship Specialty Start Date End Date Armen Sánchez DO [address] [place] [address] PCP - General Family Medicine 04/27/24 documented as of this encounter
--- OUTSIDE RECORDS SUMMARY | 2024-09-14 16:19 | XMS_ITS ---
Author Organization [employer] Source Produ ction (ClinicalSummary Clone) Address Unknown Care Team Providers Care Ip Litigation Paralegal Name Role Phone Unavailable Primary Care Physician Unavailab le Results * [UNITY] ANEUPLOIDY NIPT Performed by: [employer] Component Value Range Date Fraction 5.8% 05/24/2024 06 :21 am [facility] Sex Chromosome Aneuploidy NOT DETECTED 06:21 am [facility] Monosomy X LOW RISK <1 in 10,000 2024 06:21 am [facility] Trisomy 13 LOW RISK <1 in 10,000 2024 06:21 am [facility] Trisomy 18 LOW RISK <1 in 10,000 2024 06:21 am [facility] Trisomy 21 LOW RISK <1 in 10,000 2024 06:21 am [facility] Sex FEMALE 05/24/2024 06:2 1 am [facility] Gestation WONG 05/24/19 06:21 am [facility] For detailed report, see PDF See PDF 05/24/2024 06:21 am [facility] 05/24/2024 06:2 1 am [facility] Social History Observation Value Start Date End Date
--- OUTSIDE RECORDS SUMMARY | 2024-09-14 16:19 | XMS_ITS | Encounter Summary ---
Author Organization [facility] Address [address] [place] [address] Care Team Providers Care Repairer And Checker Name Role Phone Emi Bronson [facility] Unavailable + [phone] Armen Sánchez MD Primary Care Provider + [phone] Encounter Details Date Type Department Care Team (Late st Contact Info) Description 09/14/2023 Abstract [facility] [address] [facility] [address] [place] [phone] Nav Ames MD 112 [facility] [address] [place] [address] Social History Tobacco Use Types Packs/Day Years Used Date Smoking Tobacco: Never Assessed Comments Unknown Sex and Gender Information Value Date Recorded Sex Assigned at Female 10/25/2023 3:09 AM EDT Legal Sex Female 1:29 PM EDT Gender Identity Female 10/25/2023 3:09 AM EDT Sexual Orientation Not on file documented as of this encounter Plan of Treatment Upcoming Encounters Date Type Department Care Team (Late st Contact Info) Description 09/18/2024 3:40 PM EDT Routine [facility] OB [address] [facility] [address] Curtis Paez, DO [address] [place] [address] documented as of this encounter Visit Diagnoses Not on filedocumented in this encounter Care Teams Repairer And Checker Relationship Specialty Start Date End Date Armen Sánchez MD [address] [place] [address] PCP - General Family Medicine 05/05/24 Emi Bronson [facility] [address] [place] [address] Behavioral Health 04/12/24 documented as of this encounter
--- OUTSIDE RECORDS SUMMARY | 2024-09-14 16:19 | XMS_ITS | Encounter Summary ---
Author Organization [employer] Address [id number] [address] [place] [address] Care Team Providers Care Metallurgical Lab Technician Name Role Phone SepidehArmen tristan Cedric [place] Primary Care Provider Encounter Details Date Type Department Care Team (Latest Contact Info) Description 09/05/2024 Travel Social History Tobacco Use Types Packs/Day Years Used Date Smoking Tobacco: Every Day Cigarettes 1 13.1 Started: 08/01/2011 Smokeless Tobacco: Never Alcohol Use Standard Drinks/Week Comments Not Currently 0 (1 standard drink = 0.6 oz pur e alcohol) [facility] Utilities Answer Date Recorded In the past 12 months has e electric, gas, oil, or water company threatened [...] week 01/27/2024 How often do you attend chur ch or confucianist services? Never 01/27/2024 Do you belong to any clubs o r organizations such as zoroastrianism groups, unions, fraternal or athletic groups, or [...] Answer Date Recorded Total Score 0 10/27/2023 [facility] Occupat ional Health - Occupational Stress [...] Recorded Do you need help finding a [facility] and/or a training program? No [...] Info) Description 09/29/2024 3:00 PM EDT Appointment [facility] US Imaging [address] [place] [phone] Suresh Valencia MD [address], [address] [place], [place] [phone] documented as of this encounter Visit Diagnoses Not on filedocumented in this encounter Additional Health Concerns Assessment Noted Time PHQ-9 Depression Total Score: 0 10/27/19 10:25 AM EDT A Body Mass Index follow-up plan has been documented for the patient 08/10/2023 10:14 AM EDT documented as of this encounter Care Teams Metallurgical Lab Technician Relationship Specialty Start Date End Date Armen Sánchez DO [address] [facility] [place] [address] PCP - General Family Medicine 08/25/23 documented as of this encounter
--- OUTSIDE RECORDS SUMMARY | 2024-09-14 16:20 | XMS_ITS | Encounter Summary ---
Author Organization [facility] Address [address] [facility] [place] [address] Care Team Providers Care Technical Asst Name Role Phone Emi Bronson [facility] Unavailable + [phone] Armen Sánchez MD Primary Care Provider + [phone] Encounter Details Date Type Department Care Team (Late st Contact Info) Description 12/27/2023 Abstract [facility] [address] [place] [phone] Emi Bronson, [facility] [address] [facility] [address] [place] [address] Social History Tobacco Use Types Packs/Day Years [...] Description 09/18/2024 3:40 PM EDT Routine [facility] OB [address] [place] [address] Curtis Paez, DO [address] [facility] [place] [address] documented as of this encounter Visit Diagnoses Not on filedocumented in this encounter Care Teams Technical Asst Relationship Specialty Start Date End Date Armen Sánchez MD [address] [place] [address] PCP - General Family Medicine 05/05/24 Emi Bronson [facility] [address] [place] [address] Behavioral Health 04/12/24 documented as of this encounter
--- OUTSIDE RECORDS SUMMARY | 2024-09-14 16:20 | XMS_ITS | Encounter Summary ---
Author Organization [employer] s tem Address [id number] [address] [place] [address] Care Team Providers Care Ore Feeder Name Role Phone PrincessArmen Cedric [place] Primary Care Provider Encounter Details Date Type Department Care Team (Late st Contact Info) Description 08/25/2023 Telephone [facility] Internal [facility] - Family Medicine [address] [place] [address] Bernadette Zhang CMA Social History Tobacco Use Types Packs/Day Years Used Date Smoking Tobacco: Every Day Cigarettes 1 13.1 Started: 08/01/2011 Smokeless Tobacco: Never Alcohol Use Standard Drinks/Week Comments Not Currently 0 (1 standard drink = 0.6 oz pur e alcohol) [facility] Utilities Answer Date Recorded In the past 12 months has [employer] electric, gas, oil, or water company threatened to shut off services in your home? No 08/25/2023 Social Connection and Isolat ion Panel [NHANES] Answer Date Recorded In a typical week, how many times do you talk on the phone with family, friends, or neighbors? More than three times a week 08/25/2023 How often do you get togethe r with friends or relatives? Twice a week 08/25/2023 How often do you attend chur ch or zoroastrian services? Never 08/25/2023 Do you belong to any clubs o r organizations such as rastafari groups, unions, fraternal or athletic groups, or school groups? No 08/25/2023 How often do you attend meet ings of the clubs or organizations you belong to? Never 08/25/2023 Are you , , di vorced, , never , or living with a partner? Never 08/25/2023 AUDIT-C Answer Date Recorded Q1: How often [...] 08/22/2023 PHQ-2 Answer Date Recorded Total Score 6 08/25/2023 [facility] - Occupational Stress [...] to strenuous exercise (like a brisk walk)? 0 days 08/25/2023 On average, how many minutes do you engage in exercise at this level? 0 min 08/25/2023 PRAPARE - Transportation Answer Date Re corded [...] Recorded Do you need help finding a [employer] career center and/or a training program? No 08/25/2023 Hunger Screening Answer Date Recorded Within the past 12 months we worried whether our food would run out before we got money to buy more. Never True 08/25/2023 Within the past 12 months th e food we bought just didn't last and we didn't have money to get more. Never True 08/25/2023 Purpose - Life Answer Date Recorded I have a purpose and direction in my life. Agree 08/25/2023 Comments No Sex and Gender Information Value Date Recorded Sex Assigned at Not on file Legal Sex Female 11:52 AM EDT Gender Identity Not on file Sexual Orientation Not on file documented as of this encounter Functional Status * Audit-C Score Answer Date of Assessment Author 0 08/25/2023 9:53 AM Armen Harrell, * Intimate Partner Violence Question Answer Date of Assessment Author Within the last year, have y ou been humiliated or emotionally abused in other ways by your partner or ex-partner? No 08/25/2023 9:53 AM Celio Harrell, DO Within the last year, have y ou been afraid of your partner or ex-partner? No 08/25/2023 9:53 AM Armen Harrell , DO Within the last year, have y ou been raped or forced to have any kind of sexual activity by your partner or ex-partner? No 08/25/2023 9:53 AM Celio Harrell, DO Within the last year, have y ou been kicked, hit, slapped, or otherwise physically hurt by your partner or ex-partner? No 08/25/2023 9:53 AM Celio Harrell, DO * Question Answer Date of Assessment Author Q1: How often do you have a drink containing alcohol? Never 08/25/2023 9:53 AM Armen Harrell DO Q2: How many drinks containing alcohol do you have on a typical day when you are drinking? Patient does not drink 08/25/2023 9:53 AM Armen Harrell DO Q3: How often do you have six or more drinks on one occasion? Never 08/25/2023 9:53 AM Armen Harrell DO documented as of this encounter Miscellaneous Notes * Telephone Encounter - Bernadette Zhang CMA - 08/25/2023 11:08 AM EDT I talked to pt and got her scheduled for a Colonoscopy on 09/02 at 13:30. Went over instructions and told to arrive a hour early. Her pharmacy Is listed and correct. She would like the SUTABS. She katarzyna New pt to Dr Sánchez and is having rectal bleeding. * Telephone Encounter - Scotty Mahoney DO - 08/25/2023 11:08 AM EDT Message noted. H&P done. Rx Sutab sent to Pharmacy documented in this encounter Plan of Treatment Upcoming Encounters Date Type Department Care Team (Late st Contact Info) Description 09/29/2024 3:00 PM EDT Appointment [facility] Imaging [address] [place] [address] Suresh Valencia MD [address] [place] [address] documented as of this encounter Visit Diagnoses Not on filedocumented in this encounter Additional Health Concerns Assessment Noted Time PHQ-9 Depression Total Score: 6 08/25/19 24 9:30 AM EDT A Body Mass Index follow-up plan has been documented for the patient 08/10/2023 10:14 AM EDT documented as of this encounter Care Teams Ore Feeder Relationship Specialty Start Date End Date Armen Sánchez DO [address] [place] [address] PCP - General Family Medicine 08/25/23 documented as of this encounter
--- OUTSIDE RECORDS SUMMARY | 2024-09-14 16:20 | XMS_ITS | Encounter Summary ---
Author Organization [employer] s tem Address [id number] [address] [place] [address] Care Team Providers Care Band Edger Name Role Phone Armen Sánchez Primary Care Provider Encounter Details Date Type Department Care Team (Late st Contact Info) Description 08/17/2023 Orders Only [facility] Obstetrics/Gynecology [address] [place] [id number] La Murray CMA Screening for STD (sexually transmitted disease) Social History Tobacco Use Types Packs/Day Years Used Date Smoking Tobacco: Every Day Cigarettes Smokeless Tobacco: Never Alcohol Use Standard Drinks/Week Comments Not Currently 0 (1 standard drink = 0.6 oz pur e alcohol) PHQ-2 Answer Date Recorded Total Score 5 08/10/2023 Childcare Answer Date Recorded Childcare Unknown 09/14/2018 Employment Answer Date Recorded Employment Unknown 09/14/2018 Hunger Screening Answer Date Recorded Within the past 12 months we worried whether our food would run out before we got money to buy more. Never True 08/10/2023 Within the past 12 months th e food we bought just didn't last and we didn't have money to get more. Never True 08/10/2023 Comments No Sex and Gender Information Value Date Recorded Sex Assigned at Not on file Legal Sex Female 11:52 AM EDT Gender Identity Not on file Sexual Orientation Not on file documented as of this encounter Plan of Treatment Upcoming Encounters Date Type Department Care Team (Late Contact Info) Description 09/29/2024 3:00 PM EDT Appointment [facility] US Imaging [address] [place] [phone] Suresh Valencia MD [address], [address] [place] [address] documented as of this encounter Procedures Procedure Name Priority Date/Time Associated Diagnosis Comments HIV 1&2 AB/AG SCREEN (P24 AG) Routine 08/10/2023 Screening for STD (sexually transmitted disease) SYPHILIS TOTAL(UNKNOWN SYPHILIS STATUS) Routine 08/10/2023 Screening for STD (sexually transmitted disease) HEPATITIS PANEL, ACUTE Routine 08/10/2023 Screening for STD (sexually transmitted disease) documented in this encounter Results * HIV 1&2 AB/AG Screen (P24 AG) (08/10/2023) HIV 1&2 AB/AG Non Reactive [facility] 08/10/2023 Claire Robertson MD LAB BLOOD ORDERABLES Final Res ult [facility] * Syphilis Total(Unknown Syphilis Status) (08/10/2023) QUANTITATIVE RPR Non Reactive [facility] 08/10/2023 Claire Robertson MD LAB BLOOD ORDERABLES Final Res ult [facility] * Hepatitis panel, acute (08/10/2023) Hep A IgM Ab Negative [facility] Hep B Core IgM Ab Negative Negative [facility] Hepatitis B Surface Ag Nonreactive Borderline, Nonreactive [facility] Hepatitis C Ab Negative Negative [facility] 08/10/2023 us Claire Robertson MD LAB BLOOD ORDERABLES Final Res ult [facility] documented in this encounter Visit Diagnoses Diagnosis Screening for STD (sexually transmitted disease) documented in this encounter Additional Health Concerns Assessment Noted Time PHQ-9 Depression Total Score: 5 08/10/19 24 9:41 AM EDT A Body Mass Index follow-up plan has been documented for the patient 08/10/2023 10:14 AM EDT documented as of this encounter Care Teams Band Edger Relationship Specialty Start Date End Date Armen Sánchez DO [address] [facility] [place] [place] [address] PCP - General Family Medicine 08/25/23 documented as of this encounter
--- OUTSIDE RECORDS SUMMARY | 2024-09-14 16:20 | XMS_ITS | Encounter Summary ---
[id number] [address] [place] [address] Care Team Providers Care Lye Bath Operator Name Role Phone PrincessArmen Cedric [place] Primary Care Provider Encounter Details Date Type Department Care Team (Late st Contact Info) Description 08/26/2023 Orders Only [facility] Internal Medicine - Family Medicine [address] [place] [address] Scotty Mahoney DO [address] [place] [address] Rectal bleeding (Primary Dx) Social History Tobacco Use Types Packs/Day Years Used Date Smoking Tobacco: Every Day Cigarettes 1 13.1 Started: 08/01/2011 Smokeless Tobacco: Never Alcohol Use Standard Drinks/Week Comments Not Currently 0 (1 standard drink = 0.6 oz pur e alcohol) [facility] Utilities Answer Date Recorded In the past 12 months has [employer], gas, oil, or water [employer] threatened to shut off services in your [...] week 08/25/2023 How often do you attend [facility] or christian services? Never 08/25/2023 Do you belong to any clubs o r organizations such as yazidism groups, unions, fraternal or athletic groups, or [...] Answer Date Recorded Total Score 6 08/25/2023 [facility] - Occupational [...] Recorded Do you need help finding a [facility] career center and/or a training [...] Info) Description 09/29/2024 3:00 PM EDT Appointment [facility] Imaging [address] [place] [phone] Suresh Valencia MD [address], [address] [place] [address] documented as of this encounter Visit Diagnoses Diagnosis Rectal bleeding- Primary Hemorrhage of rectum and anus documented in this encounter Additional Health Concerns Assessment Noted Time PHQ-9 Depression Total Score: 6 08/25/19 24 9:30 AM EDT A Body Mass Index follow-up plan has been documented for the patient 08/10/2023 10:14 AM EDT documented as of this encounter Care Teams Lye Bath Operator Relationship Specialty Start Date End Date Armen Sánchez DO [address] [facility] [place] [address] PCP - General Family Medicine 08/25/23 documented as of this encounter
--- OUTSIDE RECORDS SUMMARY | 2024-09-14 16:20 | XMS_ITS | Clinical Summary ---
Author Organization [employer] Address [id number] [address] [place] [address] Care Team Providers Care Diesel Dragline Operator Name Role Phone Armen Sánchez Primary Care Provider Allergies Active Allergy Reactions Criticality Noted Date Comments Penicillins Other (See Comments) 08/10/2023 Yeast infections Medications FLUoxetine (PROzac) 20 mg capsule Take 1 capsule (20 mg total) by mouth in the morning. 30 capsule 3 Active Additional Information Patient not taking.Reported on 07/28/2024 magnesium oxide (MAGOX) 400 mg tablet Take 1 tablet (400 mg total) by mouth in the morning. Active PNV 19/iron ps,heme/folic/d recinos ( MV & MIN ORAL) Take 1 tablet by mouth in the morning. Active polyethylene glycol (GLYCOLAX) 17 gram packet Take 17 g by mouth in the morning. Active Active Problems Patient Care Coordination No te Formatting of this note migh t be different from the original. 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 Referring OB: Jeannine MFM: Erik Maternal Hx: MSAFP: cfDNA: Low risk XX Carrier: Amnio: Positive for 2 known variants for CF []Genetic Counselling: []Peds Cardiology: []Peds Urology: []Peds Ortho: []Peds Surgery: []Peds Neurology: []Peds Neurosurgery: []Peds Craniofacial: []NICU Consult: []Palliative Care Consult: []SGM: []Life Connection: []Bend: [] MRI: []Nationwide: []UofM: []UH: [x]JO CHS: If Peds are NOT ok taking care of CF baby Delivery Recommendation: [x] Term at local hospital, if Peds are ok taking care of CF baby [] [facility] at [facility] Surveillance Plan: [x] F/U Survey sched 08/25/24 at [facility] [] Growth q __ weeks [] Dopplers q __ weeks [] Echo at __ weeks [] Cervical length q __ weeks [] TTTS q __ weeks [] Wkly NST/NAYE starting at __ weeks [] 2x/wk NST/NAYE starting at __ weeks Problem Noted Date Diagnosed Date 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 Overweight 01/27/2024 Depression 10/27/2023 Anxiety 10/27/2023 Onychomycosis 10/27/2023 Rectal bleeding 08/26/2023 Vitamin D deficiency 08/16/2018 Overview (09/27/2023): Last Assessment & Plan: Labs today Estimated Date of Delivery Comme nts Yes 12/12/2024 Based on last me nstrual period of 03/07/2024, test negative 09/03/23 at 1242 Encounters Date Type Department Care Team Description 09/07/2024 10:30 AM EDT Office Visit [facility] [address] [place] [address] Rashida Silva MD 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); Encounter for consultation 09/07/2024 Orders Only Maternal- Medicine at [facility] [address] [place] [address] Miriam Joseph RN 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); Abnormal genetic test during 09/05/2024 Travel 08/25/2024 Travel 08/18/2024 Orders Only Maternal- Medicine at [facility] [address] [place] [phone] Barbra Samuel, TIMOTHY 08/18/2024 Orders Only Maternal- Medicine at [facility] [address] [place] [address] Barbra Samuel RN 08/17/2024 Telephone Maternal- Medicine at [facility] [address] [place] [address] Rachel Rodriguez LGC 07/28/2024 1:48 PM EDT - 07/28/2024 11:59 PM EDT Hospital Encounter [facility] - [facility] [address] [facility] [address] [place] [address] Discharge Disposition: Home 07/28/2024 10:00 AM EDT Office Visit Maternal- Medicine at [facility] [address] [place] [address] Suresh Burns MD 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) 07/28/2024 8:42 AM EDT - 07/28/2024 1:47 PM EDT Hospital Encounter [facility] - [facility] US Imaging [address] [place] [phone] Abnormal genetic test during ; Screening, , for anatomic survey Discharge Disposition: Home 07/28/2024 Orders Only Maternal- Medicine at [facility] [address] [place] [address] Miriam Joseph RN 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); Abnormal genetic test during 07/28/2024 Travel 07/19/2024 Orders Only [facility] Internal Medicine - Family Medicine [address] [place] [address] Ref Prov, Not In System 07/12/2024 Telephone Maternal- Medicine at [facility] [address] [place] [address] Rachel Rodriguez LGC 06/20/2024 9:00 AM EDT Telemedicine Maternal- Medicine at [facility] [address] [place] [address] Rachel Rodriguez P, LGC 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); Abnormal genetic test during ; Family history of developmental delay; Family history of spina bifida 06/20/2024 Telephone Maternal- Medicine at [facility] [address] [place] [address] Lara Lovelace 06/20/2024 Travel 06/16/2024 Orders Only Maternal- Medicine at [facility] [address] [place] [phone] Magan Paez, 06/16/2024 Abstract Maternal- Medicine at [facility] [address] [place] [phone] External, Scanning Provider from Last 3 Months Immunizations Immunization Administration Dates Next Due Tdap 08/16/2018 Family History Medical History Relation Name Comments No Known Problems Brother Brain Tumor Father was large;no carter re if is was malignant Heart failure Maternal Grandmother No Known Problems Mother Cancer Paternal Grandfather Breast cancer Paternal Grandmother mets t o bone No Known Problems Sister 1 No Known Problems Sister 2 No Known Problems Sister 3 Relation Name Status Comments Brother Alive Father Alive Maternal Grandmother Mother Alive Paternal Grandfather Paternal Grandmother Sister 1 Alive Sister 2 Alive Sister 3 Alive Social History Tobacco Use Types Packs/Day Years Used Date Smoking Tobacco: Every Day Cigarettes 1 13.1 Started: 08/01/2011 Smokeless Tobacco: Never Tobacco Cessation:Ready to Q uit: Not Asked; Counseling Given: Not Answered Alcohol Use Standard Drinks/Week Comments Not Currently 0 (1 standard drink = 0.6 oz pur e alcohol) [facility] Utilities Answer Date Recorded In the past 12 months has e [employer], gas, oil, or water [employer] threatened to shut off services in your [...] attend chur ch or zoroastrian services? Never 01/27/2024 Do you belong to any clubs o r organizations such as taoist groups, unions, fraternal or athletic groups, or [...] Answer Date Recorded Total Score 0 10/27/2023 [facility] - Occupational [...] Recorded Do you need help finding a [facility] career center and/or a training program? [...] on file Sexual Orientation Not on file Last Filed Vital Signs Vital Sign Reading Time Taken Comments Blood Pressure 115/72 07/28/2024 9:19 AM EDT Pulse 84 07/28/2024 9:19 AM EDT Temperature 36.5 C (97.7 F) 01/27/2024 9:54 AM EDT Respiratory Rate 18 01/27/2024 9:54 AM EDT Oxygen Saturation 99% 01/27/2024 9:54 AM EDT Inhaled Oxygen Concentration - - Weight 86.3 kg (190 lb 3.2 oz) 07/28/2024 9:19 A M EDT Height 162.6 cm (5' 4.02 ) 07/28/2024 9:19 AM ED T Body Mass Index 32.63 07/28/2024 9:19 AM EDT Plan of Treatment Upcoming Encounters Date Type Department Care Team (Late st Contact Info) Description 09/29/2024 3:00 PM EDT Appointment [facility] - [facility] US Imaging [address] [place] [address] Suresh Burns MD [address] [place] [address] Health Maintenance Due Date Last Done Comments Adult BMI Follow Up Plan 08/09/2024 08/10/2023 Depression Screening 10/26/2024 10/27/2023 Influenza Vaccine 12/04/2024 Tobacco Counseling 02/24/2025 08/25/2023 Adult BMI Screening 07/28/2025 07/28/2024 Tobacco Screening 07/28/2025 07/28/2024 Pap Smear 07/07/2027 07/06/2024, 05/0 10/2023, 08/10/2023 DTaP,Tdap and Td Vaccines (2 - Td or Tdap) 08/16/2028 08/16/2018 Medical Devices Not on file Procedures Procedure Name Priority Date/Time Associated Diagnosis Comments US MFM OB FOLLOW-UP, 1 FETUS Routine 08/25/2024 10:25 AM EDT Cystic fibrosis carrier Abnormal genetic test during US [facility] COMPREHENSIVE ANATOMIC SURVEY Routine 07/28/2024 11:32 AM EDT Abnormal genetic test during Screening, , for anatomic survey SEND OUT TEST Routine 07/28/2024 11:05 AM EDT SEND OUT TEST Routine 07/28/2024 11:05 AM EDT US PELVIC WITH TRANSVAGINAL Routine 07/05/2024 8:08 AM EDT HIGH RISK HPV W/FAUSTINA Routine 08/10/2023 4:17 AM EDT Pap smear, as part of routine gynecological examination from Last 3 Months or Most Recently Relevant to Health Maintenance Results * US MFM OB FOLLOW-UP, 1 FETUS (08/25/2024 10:25 AM EDT) Only the most recent of2 resultswithin the time period is included. Anatomical Region Laterality Modality OB-STAFFING ADMINISTRATOR Ultrasound 08/25/2024 9:38 AM EDT Narrative 08/25/2024 5:15 PM EDT NAME: JEREMY BORDEN : 1995 SEX: F Accession Number: [id number] ORDERING PHYSICIAN: SURESH BURNS REFERRING PHYSICIAN: MAGAN PAEZ Coding ----- --------- Procedures 20923: Follow-up Ultrasound, per fetus Indication ----- --------- Abnormal finding on screening of mother-MOB + FOB CF carriers, Depression, Anxiety , Screening for follow-up survey History ----- --------- OB History 1. Para 0 [id number] Current ----- --------- Cell free DNA low risk analysis Maternal Assessment ----- --------- Physical Exam Height 163 cm, 5 ft 4 in. Weight 86 kg, 190 lb. Initial weight 86 kg, 190 lb. BMI 32.61 kg/m . Initial BMI 32.61 kg/m . Weight gain 0 kg, 0 lb Method ----- --------- Transabdominal ultrasound examination ----- --------- Dupont . Number of fetuses: 1 Dating ----- --------- LMP on: 03/07/2024 GA by LMP 24 w + 3 d DOMINIQUE by LMP: 12/12/2024 Previous Ultrasound on: 04/27/2024 Type of prior assessment: GA GA at prior assessment date 7 w + 2 d GA by previous U/S 24 w + 3 d DOMINIQUE by previous Ultrasound: 12/12/2024 Ultrasound examination on: 08/25/2024 GA by U/S based upon: AC, BPD, Femur, HC GA by U/S 24 w + 5 d DOMINIQUE by U/S: 12/10/2024 Assigned: based on the LMP, selected on 07/28/2024 Assigned GA 24 w + 3 d Assigned DOMINIQUE: 12/12/2024 General Evaluation ----- --------- Cardiac activity Present. FHR 158 bpm. Presentation: cephalic Placenta: Placental site: anterior, away from cervical os Umbilical cord: Cord vessels: 3 vessel cord. Insertion site: documented previously Amniotic fluid: Amount of AF: normal amount. MVP 4.2 cm Biometry ----- --------- Standard BPD 59.8 mm 24w 3d 41% Hadlock OFD 78.0 mm 25w 4d 84% Dank HC 222.0 mm 24w 2d 24% Hadlock Cerebellum tr 27.9 mm 24w 5d 70% Hill AC 211.6 mm 25w 5d 79% Hadlock Femur 43.5 mm 24w 2d 32% Hadlock Humerus 39.9 mm 24w 2d 35% Dank HC / AC 1.05 EFW 754 g 64% Hadlock EFW (lb) 1 lb EFW (oz) 11 oz EFW by: Hadlock ([id number]) Extended Tibia 36.6 mm 23w 5d 27% Dank Elevator Constructor Hydraulic 3.8 mm CM 6.3 mm 59% Nicolaides Head / Face / Neck Cephalic index 0.77 30% Nicolaides Nasal bone: documented previously Extremities / Bony Struc FL / BPD 0.73 FL / HC 0.20 FL / AC 0.21 Other Structures FHR 158 bpm Anatomy ----- --------- The following structures appear normal: Head/Neck: Cranium. Lateral ventricles. Cavum septi pellucidi. Cerebellum. Cisterna magna. Parenchyma. Heart/Thorax: 4-chamber view. Situs. Aortic arch view. Cardiac position. Cardiac axis. Cardiac size. Cardiac rhythm. Right lung. Left lung. Diaphragm. Abdomen: Abdom. wall. Cord insertion. Stomach. Kidneys. Bladder. Small bowel. Large bowel. The following structures were documented previously: Head / Neck Choroid plexus. Midline falx. Vermis. Neck. Face: Lips. Profile. Nose. Nasal bone. Maxilla. Mandible. Orbits. Heart / Thorax RVOT view. LVOT view. 3-vessel view. 8-psazqj-dweesrc view. Bicaval view. Ductal arch view. Interventricular septum. Great vessels. Abdomen Right renal artery. Left renal artery. Genitals. Spine: Cervical spine. Thoracic spine. Lumbar spine. Sacral spine. Extremities/Skeleton: Right upper arm. Right forearm. Right hand. Left upper arm. Left forearm. Left hand. Right upper leg. Right lower leg. Right foot. Left upper leg. Left lower leg. Left foot. Maternal Structures ----- --------- Uterus Visualized Cervix Suboptimal Approach - Transabdominal Right Ovary Not visualized Left Ovary Not visualized Cul de Sac Suboptimal Impression ----- --------- Single viable intrauterine with appropriate interval growth. EFW measures at the 64%, AC measures at the 79%. anatomic survey did not reveal sonographic evidence of any gross structural abnormalities. Amniotic fluid MVP measures 4.2 cm. Recommendations ----- --------- Subsequent follow up or other follow up as clinically determined by primary OB provider unless otherwise specified by M. Results forwarded to ordering provider so they can follow up with the patient as necessary. Procedure Note Edil Bullock MD - 08/25/2024 NAME: JEREMY BORDEN : 1995 SEX: F Accession Number: [id number] ORDERING PHYSICIAN: SURESH BURNS REFERRING PHYSICIAN: MAGAN PAEZ Coding ----- --------- Procedures 39696: Follow-up Ultrasound, per fetus Indication ----- --------- Abnormal finding on screening of mother-MOB + FOB CF carriers,Depression, Anxiety , Screening for follow-up survey History ----- --------- OB History 1. Para 0 [id number] Current ----- --------- Cell free DNA low risk analysis Maternal Assessment ----- --------- Physical Exam Height 163 cm, 5 ft 4 in. Weight 86 kg, 190 lb. Initialweight 86 kg, 190 lb. BMI 32.61 kg/m . Initial BMI 32.61 kg/m . Weight gain 0 kg, 0 lb Method ----- --------- Transabdominal ultrasound examination ----- --------- Dupont . Number of fetuses: 1 Dating ----- --------- LMP on: 03/07/2024 GA by LMP 24 w + 3 d DOMINIQUE by LMP: 12/12/2024 Previous Ultrasound on: 04/27/2024 Type of prior assessment: GA GA at prior assessment date 7 w + 2 d GA by previous U/S 24 w + 3 d DOMINIQUE by previous Ultrasound: 12/12/2024 Ultrasound examination on: 08/25/2024 GA by U/S based upon: AC, BPD, Femur, HC GA by U/S 24 w + 5 d DOMINIQUE by U/S: 12/10/2024 Assigned: based on the LMP, selected on 07/28/2024 Assigned GA 24 w + 3 d Assigned DOMINIQUE: 12/12/2024 General Evaluation ----- --------- Cardiac activity Present. FHR 158 bpm. Presentation: cephalic Placenta: Placental site: anterior, away from cervical os Umbilical cord: Cord vessels: 3 vessel cord. Insertion site: documentedpreviously Amniotic fluid: Amount of AF: normal amount. MVP 4.2 cm Biometry ----- --------- Standard BPD 59.8 mm 24w 3d 41% Hadlock OFD 78.0 mm 25w 4d 84% Dank HC 222.0 mm 24w 2d 24% Hadlock Cerebellum tr 27.9 mm 24w 5d 70% Hill AC 211.6 mm 25w 5d 79% Hadlock Femur 43.5 mm 24w 2d 32% Hadlock Humerus 39.9 mm 24w 2d 35% Dank HC / AC 1.05 EFW 754 g 64% Hadlock EFW (lb) 1 lb EFW (oz) 11 oz EFW by: Hadlock (HYH-DI-AJ-FL) Extended Tibia 36.6 mm 23w 5d 27% Dank Elevator Constructor Hydraulic 3.8 mm CM 6.3 mm 59% Nicolaides Head / Face / Neck Cephalic index 0.77 30% Nicolaides Nasal bone: documented previously Extremities / Bony Struc FL / BPD 0.73 FL / HC 0.20 FL / AC 0.21 Other Structures FHR 158 bpm Anatomy ----- --------- The following structures appear normal: Head/Neck: Cranium. Lateral ventricles. Cavum septi pellucidi. Cerebellum.Cisterna magna. Parenchyma. Heart/Thorax: 4-chamber view. Situs. Aortic arch view. Cardiac position.Cardiac axis. Cardiac size. Cardiac rhythm. Right lung. Left lung. Diaphragm. Abdomen: Abdom. wall. Cord insertion. Stomach. Kidneys. Bladder. Smallbowel. Large bowel. The following structures were documented previously: Head / Neck Choroid plexus. Midline falx. Vermis. Neck. Face: Lips. Profile. Nose. Nasal bone. Maxilla. Mandible. Orbits. Heart / Thorax RVOT view. LVOT view. 3-vessel view. 5-evhfqk-waxelhx view.Bicaval view. Ductal arch view. Interventricular septum. Great vessels. Abdomen Right renal artery. Left renal artery. Genitals. Spine: Cervical spine. Thoracic spine. Lumbar spine. Sacral spine. Extremities/Skeleton: Right upper arm. Right forearm. Right hand. Leftupper arm. Left forearm. Left hand. Right upper leg. Right lower leg. Right foot. Left upper leg. Left lower leg. Leftfoot. Maternal Structures ----- --------- Uterus Visualized Cervix Suboptimal Approach - Transabdominal Right Ovary Not visualized Left Ovary Not visualized Cul de Sac Suboptimal Impression ----- --------- Single viable intrauterine with appropriate interval growth. EFWmeasures at the 64%, AC measures at the 79%. anatomic survey did not reveal sonographic evidence of any grossstructural abnormalities. Amniotic fluid MVP measures 4.2 cm. Recommendations ----- --------- Subsequent follow up or other follow up as clinically determined byprimary OB provider unless otherwise specified by M. Results forwarded to ordering provider so they can follow up with thepatient as necessary. Suresh Burns MD [facility] ORDERABLES Final Resul t * Send Out Test (07/28/2024 11:05 AM EDT) Only the most recent of2 resultswithin the time period is included. Test name: KNOWN MUTATION ANALYSIS CFTR GENE 07/28/2024 1:55 PM EDT [facility] Specimen 3 MATERNAL AMNIOTIC FLUID 2 EDTA AND 1 SODIUM HEP MATERNAL 07/28/2024 1:55 PM EDT [facility] Sent to [facility] [employer]IA [employer] [id number] 07/28/2024 2:18 PM EDT [facility] Comment:Corrected on 07/28 A T 1418: Previously reported as [facility] [employer] [employer] [id number] Test result See separate report. View in [employer] or in [employer]. 08/23/2024 7:01 PM EDT [facility] MISCELLANEOUS 07/28/2024 11: 05 AM EDT 07/28/2024 1:53 PM EDT us Suresh Burns MD LAB ORDERABLES Edited Result - Final Performing Organization Address City/[facility]/ZIP Co de Phone Number DELFINO * Ultrasound pelvic with transvaginal (07/05/2024 8:08 AM EDT) Anatomical Region Laterality Modality Body, Pelvis Ultrasound us Not In System Ref Prov IMG US ORDERABLES Final R esult * High risk HPV w/faustina (08/10/2023 4:17 AM EDT) Hpv specimen type ThinPrep 08/11/2023 4:17 AM EDT [facility] Hpv 16 Negative Negative^N egative 08/11/2023 2:37 PM EDT [facility] Hpv 18 Negative Negative^N egative 08/11/2023 2:37 PM EDT [facility] Other high risk hpv Negative Negative^N egative 08/11/2023 2:37 PM EDT [facility] Comment: HPV types 31,33,35,39,45,52,56,58,59,66 and 68 DNA were undetectable. THINP 08/10/2023 4:17 AM EDT 08/10/2023 4:48 AM EDT us Claire Robertson MD LAB BLOOD ORDERABLES Final Res ult DELFINO [facility] [address], [place] [address] [facility] [address] [place] [address] from Last 3 Months or Most Recently Relevant to Health Maintenance Insurance * Guarantor: Sapna Serrano Account Type Relation to Patient Date of Phone Billing Address Personal/Family Self 1995 [address] [place] [address] [employer] Care Teams Diesel Dragline Operator Relationship Specialty Start Date End Date Armen Sánchez DO [address] [facility] [place] [address] PCP - General Family Medicine 08/25/23
--- OUTSIDE RECORDS SUMMARY | 2024-09-14 16:20 | XMS_ITS | Encounter Summary ---
Author Organization [facility] Address [address] [place] [address] Care Team Providers Care Jailkeeper Name Role Phone Emi Bronson [facility] Unavailable + [phone] Armen Sánchez MD Primary Care Provider + [phone] Encounter Details Date Type Department Care Team (Late st Contact Info) Description 07/11/2024 Orders Only [facility] [address] [place] [address] Mary Quinn LPN [address] [facility] [place] [id number] Social History Tobacco Use Types Packs/Day Years Used Date Smoking Tobacco: Never Assessed Estimated Date of Delivery Comme nts Yes 12/12/2024 Based on last me nstrual period of 03/07/2024 Sex and Gender Information Value Date Recorded Sex Assigned at Female 10/25/2023 3:09 AM EDT Legal Sex Female 1:29 PM EDT Gender Identity Female 10/25/2023 3:09 AM EDT Sexual Orientation Not on file documented as of this encounter Plan of Treatment Upcoming Encounters Date Type Department Care Team (Late st Contact Info) Description 09/18/2024 3:40 PM EDT Routine [facility] [address] [place] [address] Curtis Paez, DO [address] [place] [address] [place] [address] documented as of this encounter Procedures Procedure Name Priority Date/Time Associated Diagnosis Comments PAP SMEAR Routine 07/06/2024 12:00 AM EDT documented in this encounter Results * Pap Smear (07/06/2024 12:00 AM EDT) Swab Cervical swab / Unknown us [facility] Jeannine Nurse LAB CYTOLOGY ORDERABLES Final Result EXTERNAL LAB documented in this encounter Visit Diagnoses Not on filedocumented in this encounter Care Teams Jailkeeper Relationship Specialty Start Date End Date Armen Sánchez MD [address] [place] [address] PCP - General Family Medicine 05/05/24 Emi Bronson, [facility] [address] [place] [address] Behavioral Health 04/12/24 documented as of this encounter
--- OUTSIDE RECORDS SUMMARY | 2024-09-14 16:20 | XMS_ITS | Encounter Summary ---
Author Organization [facility] [employer] tem Address [id number] [address] [place] [address] Care Team Providers Care Forging Press Setter Up Name Role Phone MasoodArmen silverman Primary Care Provider Encounter Details Date Type Department Care Team (Late st Contact Info) Description 07/19/2024 Orders Only [facility] Internal Medicine - Family Medicine [address] [place] [address] Ref Prov, [place] [address] Social History Tobacco Use Types Packs/Day Years Used Date Smoking Tobacco: Every Day Cigarettes 1 13.1 Started: 08/01/2011 Smokeless Tobacco: Never Alcohol Use Standard Drinks/Week Comments Not Currently 0 (1 standard drink = 0.6 oz pur e alcohol) [facility] Utilities Answer Date Recorded In the past 12 months has [employer], gas, oil, or water company threatened to [...] often do you attend chur ch or jainism services? Never 01/27/2024 Do you belong to any clubs o r organizations such as zoroastrian groups, unions, fraternal or athletic groups, or [...] Date Recorded Total Score 0 10/27/2023 [facility] - Occupational [...] Recorded Do you need help finding a [facility] career center and/or a training program? No 08/25/2023 Hunger Screening Answer Date Recorded Within the past 12 months we worried whether our food would run out before we got money to buy more. Never True 10/27/2023 Within the past 12 months th e food we bought just didn't last and we didn't have money to get more. Never True 10/27/2023 Purpose - Life Answer Date Recorded I [...] Description 09/29/2024 3:00 PM EDT Appointment [facility] US Imaging [address] [place] [address] Suresh Valencia MD [address] [place] [address] documented as of this encounter Procedures Procedure Name Priority Date/Time Associated Diagnosis Comments US PELVIC WITH TRANSVAGINAL Routine 07/05/2024 8:08 AM EDT documented in this encounter Results * Ultrasound pelvic with transvaginal (07/05/2024 8:08 AM EDT) Anatomical Region Laterality Modality Body, Pelvis Ultrasound us Not In System Ref Prov IMG US ORDERABLES Final R esult documented in this encounter Visit Diagnoses Not on filedocumented in this encounter Additional Health Concerns Assessment Noted Time PHQ-9 Depression Total Score: 0 10/27/19 10:25 AM EDT A Body Mass Index follow-up plan has been documented for the patient 08/10/2023 10:14 AM EDT documented as of this encounter Care Teams Forging Press Setter Up Relationship Specialty Start Date End Date Armen Sánchez DO [address] [facility], [place] [address] PCP - General Family Medicine 08/25/23 documented as of this encounter
--- OUTSIDE RECORDS SUMMARY | 2024-09-14 16:20 | XMS_ITS | Encounter Summary ---
Author Organization [facility] s tem Address [id number] [address] [place] [address] Care Team Providers Care Ferry Engineer Name Role Phone MasoodArmen silverman Primary Care Provider Encounter Details Date Type Department Care Team (Late st Contact Info) Description 05/01/2024 Orders Only [facility] Internal [facility] - Family Medicine [address] [place] [address] Ref Prov, [place] [address] Social History Tobacco Use Types Packs/Day Years Used Date Smoking Tobacco: Every Day Cigarettes 1 13.1 Started: 08/01/2011 Smokeless Tobacco: Never Alcohol Use Standard Drinks/Week Comments Not Currently 0 (1 standard drink = 0.6 oz pur e alcohol) [facility] Utilities Answer Date Recorded In the past 12 months has wedgies, gas, oil, or water company threatened to [...] often do you attend chur ch or moravian services? Never 01/27/2024 Do you belong to any clubs o r organizations such as jewish groups, unions, fraternal or athletic groups, or [...] Answer Date Recorded Total Score 0 10/27/2023 [facility] - Occupational Stress [...] Recorded Do you need help finding a [facility] career center and/or a training [...] Info) Description 09/29/2024 3:00 PM EDT Appointment [facility] [address] [place] [address] Suresh Valencia MD [address], [address] [place] [address] documented as of this encounter Procedures Procedure Name Priority Date/Time Associated Diagnosis Comments US PELVIC WITH TRANSVAGINAL Routine 04/27/2024 3:14 PM EST documented in this encounter Results * Ultrasound pelvic with transvaginal (04/27/2024 3:14 PM EST) Anatomical Region Laterality Modality Body, Pelvis Ultrasound [...] documented as of this encounter Care Teams Ferry Engineer Relationship Specialty Start Date End Date Armen Sánchez DO [address] [facility], [place] [address] PCP - General Family Medicine 08/25/23 documented as of this encounter
--- OUTSIDE RECORDS SUMMARY | 2024-09-14 16:20 | XMS_ITS | Clinical Summary ---
Author Organization [facility] Address [address] [place] [address] Care Team Providers Care Head Up Operator Helper Name Role Phone Galen Bronsonalfred Munson [facility] Unavailable [phone] Armen Sánchez MD Primary Care Provider [phone]- [phone] Allergies Active Allergy Reactions Criticality Noted Date Comments Penicillin G Rash Low 05/05/2024 Penicillins Hives,Itching 08/16/2018 Yeast infections Medications polyethylene glycol, PEG, 3350 (Glycolax) 17 GM/SCOOP powder Take 17 g by mouth 1 (one) time Active MV-Min-Fe Fum-FA-DHA ( 1 PO) Take 1 each by mouth Daily Active Active Problems Problem Noted Date Diagnosed Date Cystic fibrosis carrier, antepartum ([facility]) Moderate episode of recurrent major depressive d isorder 10/25/2023 ALICIA (generalized anxiety disorder) 10/25/2023 Estimated Date of Delivery Comme nts Yes 12/12/2024 Based on last me nstrual period of 03/07/2024 Encounters Date Type Department Care Team Description 08/30/2024 9:50 AM EDT Routine [facility] [address] [place] [address] Jocy Ruby PA Second trimester ([facility]); 25 weeks gestation of ([facility]) 08/30/2024 Clinisync Result Encounter [facility] External Department Unsolicited Magan Paez DO 08/30/2024 Bamboo flowsheet [facility] [address] [place] [phone] Jocy Ruby PA 08/14/2024 10:30 AM EDT Procedure Visit [facility] [address] [place] [phone] Magan Paez DO Cystic fibrosis carrier, antepartum ([facility]); LGSIL on Pap smear of cervix 08/14/2024 Travel 08/01/2024 1:20 PM EDT Routine [facility] [address] [place] [phone] Magan Paez DO Chlamydia trachomatis infection; 21 weeks gestation of ([facility]); Second trimester ([facility]); Diabetes mellitus screening 08/01/2024 Bamboo flowsheet [facility] [address] [place] [address] Magan Paez DO 08/01/2024 Travel 07/11/2024 12:00 PM EDT Clinical Support [facility] [address] [place] [address] Emi Bronson, [facility] Moderate episode of recurrent major depressive disorder (HCC); ALICIA (generalized anxiety disorder) 07/11/2024 Orders Only [facility] [address] [place] [address] Mary Quinn LPN 07/11/2024 Bamboo flowsheet [facility] [address] [place] [address] Emi Bronson LPCC 07/11/2024 Travel 07/10/[address] Tele[address] [facility] [address] [place] [phone] Nely Warren MA 07/06/2024 8:30 AM EDT Routine [facility] [address] [place] [phone] Jocy Ruby PA 17 weeks gestation of ([facility]); Second trimester ([facility]); Well woman exam with routine gynecological exam; Exposure to STD; Vaginal discharge 07/06/2024 Clinisync Result Encounter [facility] External Department Unsolicited Jocy Ruby PA 07/06/2024 External Result Encounter [facility] External Department Unsolicited Jocy Ruby PA 07/06/2024 Bamboo flowsheet [facility] [address] [place] [address] [place] [phone] Jocy Ruby PA 07/05/2024 Travel 07/05/2024 Clinisync Result Encounter [facility] External Department Unsolicited Magan Paez DO from Last 3 Months Family History Medical History Relation Name Comments Heart failure Maternal Grandmother Cancer Paternal Grandfather Breast cancer Paternal Grandmother Cancer Paternal Grandmother Relation Name Status Comments Maternal Grandmother Paternal Grandfather Paternal Grandmother Social History Tobacco Use Types Packs/Day Years Used Date Smoking Tobacco: Never Assessed Estimated Date of Delivery Comme nts Yes 12/12/2024 Based on last me nstrual period of 03/07/2024 Sex and Gender Information Value Date Recorded Sex Assigned at Female 10/25/2023 3:09 AM EDT Legal Sex Female 1:29 PM EDT Gender Identity Female 10/25/2023 3:09 AM EDT Sexual Orientation Not on file Last Filed Vital Signs Vital Sign Reading Time Taken Comments Blood Pressure 130/74 08/30/2024 10:38 AM EDT Pulse - - Temperature - - Respiratory Rate - - Oxygen Saturation - - Inhaled Oxygen Concentration - - Weight 88.9 kg (196 lb) 08/30/2024 10:38 AM EDT Height - - Body Mass Index - - Plan of Treatment Upcoming Encounters Date Type Department Care Team (Late st Contact Info) Description 09/18/2024 3:40 PM EDT Routine [facility] OB [address] [place] [address] [place] [phone] Magan Paez DO [address] [place] [address] Dr [place] [place] [phone] Procedures Procedure Name Priority Date/Time Associated Diagnosis Comments GLUCOSE 1 HOUR Routine 08/30/2024 11:28 AM EDT ALL CBC WITH AUTO DIFF Routine 08/30/2024 11:28 AM EDT POCT URINALYSIS DIPSTICK Routine 08/30/2024 11:24 AM EDT Second trimester ([facility]) COLPOSCOPY Routine 08/14/2024 2:19 PM EDT LGSIL on Pap smear of cervix RECURRENT VAGINITIS (HTRX) Routine 08/01/2024 2:52 PM EDT US OB 14+ WEEKS ANATOMY SCAN 07/28/2024 1:13 PM EDT RECURRENT VAGINITIS (HTRX) Routine 07/06/2024 12:13 PM EDT AFP, SERUM, OPEN SPINA BIFIDA Routine 07/06/2024 10:06 AM EDT POCT URINALYSIS DIPSTICK Routine 07/06/2024 9:19 AM EDT 17 weeks gestation of ([facility]) Second trimester ([facility]) IGP,APTIMA HPV,AGE GDLN Routine 07/06/2024 8:54 AM EDT PAP SMEAR Routine 07/06/2024 12:00 AM EDT US OB CERVICAL LENGTH 07/05/2024 8:10 AM EDT CULTURE, URINE, ROUTINE Routine 06/14/2024 9:04 AM EDT Missed menses from Last 3 Months Results * GLUCOSE 1 HOUR (08/30/2024 11:28 AM EDT) GLUCOSE 1 HOUR 66 <130 mg/dL TBH 08/30/2024 11:2 8 AM EDT 08/30/2024 11:29 AM EDT Narrative ALFIE - 08/30/2024 12:05 PM EDT us Magan Paez DO LAB BLOOD ORDERABLES Final Resul t [facility] * (ABNORMAL) ALL CBC WITH AUTO DIFF (08/30/2024 11:28 AM EDT) [facility] WBC 11.8(H) 4.0 - 11.0 10 3/uL TBH TBH RBC 4.32 4.20 - 5.40 10 6/uL TBH TBH HGB 13.0 12.0 - 16.0 g/dL TBH TBH HCT 38.8 36.0 - 48.0 % TBH TBH MCV 89.8 81.0 - 99.0 fL TBH TBH MCH 30.1 26.7 - 34.0 pg TBH TBH MCHC 33.5 29.9 - 35.2 g/dL TBH TBH RDW 13.7 11.0 - 15.0 % TBH TBH PLT 272 150 - 450 10 3/uL TBH TBH MPV 9.6 9.5 - 13.5 fL TBH NEUTROPHILS PERCENT AUTO 73.4 43.0 - 75.0 % TBH LYMPHOCYTES PERCENT AUTO 17.6(L) 20.5 - 60.0 % TBH MONOCYTES PERCENT AUTO 6.0 1.7 - 12.0 % TBH TBH EO % 1.8 0.9 - 7.0 % TBH BASOPHILS PERCENT AUTO 0.7 0.2 - 2.0 % TBH IMMATURE GRANULOCYTES PCT AUTO 0.5 0.0 - 0.5 % TBH NEUTROPHILS ABSOLUTE AUTO 8.6(H) 1.4 - 6.5 10 3/uL TBH LYMPHOCYTES ABSOLUTE AUTO 2.1 1.2 - 3.8 10 3/uL TBH MONOCYTES ABSOLUTE AUTO 0.7 0.3 - 0.8 10 3/uL TBH TBH EO # 0.2 0.0 - 0.7 10 3/uL TBH BASOPHILS ABSOLUTE AUTO 0.1 0.0 - 0.1 10 3/uL TBH IMMATURE GRANULOCYTES ABS AUTO 0.06(H) 0.00 - 0.03 10 3/uL [facility] 08/30/2024 11:2 8 AM EDT 08/30/2024 11:29 AM EDT Narrative CLINISYNC - 08/30/2024 11:34 AM EDT Magan Paez DO [facility] Final Result [facility] * (ABNORMAL) POCT urinalysis dipstick manually resulted (08/30/2024 11:24 AM EDT) Only the most recent of2 resultswithin the time period is included. Color, UA Yellow Clarity, UA Clear Glucose, UA Negative Negative - 2000(110) ++++ mg/dL Bilirubin, UA Negative Negative - 4(70) +++ mg/dL Ketones, UA Negative Negative - 160(16) ++++ mg/dL Spec Grav, UA 1.020 1 - 1.03 Blood, UA Negative Negative - 50 Koby/mcL pH, UA 7.0 5 - 9 Protein, UA Negative Negative - 2000(20) ++++ mg/dL Urobilinogen, UA 0.2 0.2 - 12 mg/dL Leukocytes, UA Trace Negative - 500+++ Danny/mcL Nitrite, UA Negative Negative - Positive Urine 08/30/2024 11:2 4 AM EDT Magan Paez DO POINT OF CARE TEST ENTER/EDIT OR DERABLES Final Result * Colposcopy (08/14/2024 2:19 PM EDT) Magan Rodríguez DO - 08/14/2024 2:19 PM EDT Magan Paez DO 08/15/2024 6:19 AM Colposcopy Date/Time: 08/14/2024 2:19 PM Performed by: Magan Paez DO Authorized by: Magan Paez DO Consent: Consent obtained: Written Consent given by: Patient Pre-procedure: Speculum was placed in the vagina: yes Prep solution(s): acetic acid Procedure: Colposcopy with: colposcopy only Biopsy taken: no Colposcopy details: ECC and biopsies NOT obtained due to patient being Cervix visibility: fully visualized Ferric subsulfate solution applied: no Tampon inserted: no Post-procedure: Patient tolerance of procedure: Patient tolerated the procedure well with no immediate complications Instructions and paperwork completed: yes Educational handouts given: no us Magan Jeanninecinthia [place] [facility]BEDSIDE ORDERABLES Fin al Result * RECURRENT VAGINITIS (HTRX) (08/01/2024 2:52 PM EDT) Only the most recent of2 resultswithin the time period is included. Pathologist [facility] ATOPOBIUM VAGINAE 0.000 19.961 - 24.689 ppm 08/02/2024 7:05 AM EDT [facility] ATOPOBIUM VAGINAE Not Detected 19.961 - 24.689 ppm 08/02/2024 7:05 AM EDT [facility],3 (BACTERIAL VAGINOSIS ASSOCIATED BACTERIA 2, 3); MOBILUNCUS SPP 0.000 19.961 - 24.689 ppm 08/02/2024 7:05 AM EDT [facility] BVAB 2,3 (BACTERIAL VAGINOSIS ASSOCIATED BACTERIA 2, 3); MOBILUNCUS SPP Not Detected 19.961 - 24.689 ppm 08/02/2024 7:05 AM EDT [facility] ILIANA ALBICANS, PARAPSILOSIS, TROPICALIS 0.000 19.961 - 30.770 ppm 08/02/2024 7:05 AM EDT [facility] ILIANA ALBICANS, PARAPSILOSIS, TROPICALIS Not Detected 19.961 - 30.770 ppm 08/02/2024 7:05 AM EDT [facility] ILIANA GLABRATA 0.000 23.000 - 32.138 ppm 08/02/2024 7:05 AM EDT [facility] ILIANA GLABRATA Not Detected 23.000 - 32.138 ppm 08/02/2024 7:05 AM EDT [facility] ILIANA KRUSEI 0.000 23.000 - 32.271 ppm 08/02/2024 7:05 AM EDT [facility] ILIANA KRUSEI Not Detected 23.000 - 32.271 ppm 08/02/2024 7:05 AM EDT [facility] CHLAMYDIA TRACHOMATIS 0.000 23.000 - 31.467 ppm 08/02/2024 7:05 AM EDT [facility] CHLAMYDIA TRACHOMATIS Not Detected 23.000 - 31.467 ppm 08/02/2024 7:05 AM EDT [facility] GARDNERELLA VAGINALIS 0.000 19.961 - 24.689 ppm 08/02/2024 7:05 AM EDT [facility] GARDNERELLA VAGINALIS Not Detected 19.961 - 24.689 ppm 08/02/2024 7:05 AM EDT [facility] MEGASPHAERA (TYPES 1, 2) 0.000 19.961 - 24.689 ppm 08/02/2024 7:05 AM EDT [facility] MEGASPHAERA (TYPES 1, 2) Not Detected 19.961 - 24.689 ppm 08/02/2024 7:05 AM EDT [facility] NEISSERIA GONORRHOEAE 0.000 23.000 - 32.117 ppm 08/02/2024 7:05 AM EDT [facility] NEISSERIA GONORRHOEAE Not Detected 23.000 - 32.117 ppm 08/02/2024 7:05 AM EDT [facility] TRICHOMONAS VAGINALIS 0.000 23.000 - 32.119 ppm 08/02/2024 7:05 AM EDT [facility] TRICHOMONAS VAGINALIS Not Detected 23.000 - 32.119 ppm 08/02/2024 7:05 AM EDT [facility] MYCOPLASMA GENITALIUM 0.000 19.961 - 24.689 ppm 08/02/2024 7:05 AM EDT [facility] MYCOPLASMA GENITALIUM Not Detected 19.961 - 24.689 ppm 08/02/2024 7:05 AM EDT [facility] Tissue 08/01/2024 2:52 PM EDT 08/02/2024 2:14 AM EDT us Magan Paez DO LAB BLOOD ORDERABLES Final Resul t [facility] [place] [address] * US OB 14+ weeks anatomy scan (07/28/2024 1:13 PM EDT) Anatomical Region Laterality Modality Body Ultrasound 07/28/2024 1:13 PM EDT Narrative 07/28/2024 1:13 PM EDT THIS EXAM WAS PERFORMED AT [facility] NAME: JEREMY BORDEN : 1995 SEX: F Accession Number: [id number] ORDERING PHYSICIAN: CHRISSIE SNOW REFERRING PHYSICIAN: MAGAN PAEZ Coding ----- --------- Procedures [id number]: Ultrasound, uterus, real time with image documentation, and maternal evaluation plus detailed anatomic examination, transabdominal approach;single or first gestation 50207: Transvaginal Ultrasound (OB) 00790: Amniocentesis; diagnostic Indication ----- --------- Screening for Anatomic Survey, Screening for cervical length, Abnormal finding on screening of mother-MOB + FOB CF carriers, Depression, Anxiety History ----- --------- OB History 1. Para 0 [id number] Current ----- --------- Cell free DNA low risk analysis Maternal Assessment ----- --------- Physical Exam Height 163 cm, 5 ft 4 in. Weight 86 kg, 190 lb. Initial weight 86 kg, 190 lb. BMI 32.61 kg/m???. Initial BMI 32.61 kg/m???. Weight gain 0 kg, 0 lb Method ----- --------- Transabdominal and transvaginal ultrasound examination. View: Suboptimal view: limited by position ----- --------- Dupont . Number of fetuses: 1 Dating ----- --------- LMP on: 03/07/2024 GA by LMP 20 w + 3 d DOMINIQUE by LMP: 12/12/2024 Previous Ultrasound on: 04/27/2024 Type of prior assessment: GA GA at prior assessment date 7 w + 2 d GA by previous U/S 20 w + 3 d DOMINIQUE by previous Ultrasound: 12/12/2024 Ultrasound examination on: 07/28/2024 GA by U/S based upon: AC, BPD, Femur, HC GA by U/S 20 w + 4 d DOMINIQUE by U/S: 12/11/2024 Assigned: based on the LMP, selected on 07/28/2024 Assigned GA 20 w + 3 d Assigned DOMINIQUE: 12/12/2024 General Evaluation ----- --------- Cardiac activity Present. FHR 153 bpm. Presentation: transverse head maternal left Placenta: Placental site: anterior, away from cervical os Umbilical cord: Cord vessels: 3 vessel cord. Insertion site: normal insertion Amniotic fluid: Amount of AF: normal amount Biometry ----- --------- Standard BPD 46.1 mm 20w 0d 29% Hadlock OFD 62.2 mm 21w 2d 79% Dank HC 175.3 mm 20w 0d 25% Hadlock Cerebellum tr 21.5 mm 20w 2d 67% Hill Nuchal fold 3.3 mm AC 165.6 mm 21w 4d 80% Hadlock Femur 34.6 mm 20w 6d 59% Hadlock Humerus 30.6 mm 20w 1d 39% Dank HC / AC 1.06 4% Hadlock EFW 399 g 79% Hadlock EFW (lb) 0 lb EFW (oz) 14 oz EFW by: Hadlock ([id number]) Extended Tibia 28.6 mm 20w 3d 55% Dank Multimedia Engineer 6.6 mm CM 5.3 mm 57% Nicolaides Nasal bone 5.8 mm Head / Face / Neck Cephalic index 0.74 9% Nicolaides Nasal bone: present Extremities / Bony Struc FL / BPD 0.75 85% Hadlock FL / HC 0.20 87% Hadlock FL / AC 0.21 20% Hadlock Other Structures FHR 153 bpm Anatomy ----- --------- The following structures appear normal: Head/Neck: Cranium. Lateral ventricles. Choroid plexus. Midline falx. Cavum septi pellucidi. Cerebellum. Cisterna magna. Parenchyma. Vermis. Neck. Nuchal fold. Face: Lips. Profile. Nose. Nasal bone. Maxilla. Mandible. Orbits. Heart/Thorax: 4-chamber view. RVOT view. LVOT view. 3-vessel view. 7-drmcnh-nwyaisy view. Situs. Bicaval view. Ductal arch view. Interventricular septum. Great vessels. Cardiac position. Cardiac axis. Cardiac size. Cardiac rhythm. Diaphragm. Abdomen: Stomach. Kidneys. Bladder. Small bowel. Large bowel. Right renal artery. Left renal artery. Genitals. Spine: Cervical spine. Thoracic spine. Lumbar spine. Sacral spine. Extremities/Skeleton: Right upper arm. Right forearm. Right hand. Left upper arm. Left forearm. Left hand. Right upper leg. Right lower leg. Right foot. Left upper leg. Left lower leg. Left foot. The following structures could not be adequately visualized: Abdomen Abdom. wall. The following structures could not be examined: Heart / Thorax Aortic arch view. Right lung. Left lung. Abdomen Cord insertion. Personnel ----- --------- Performing Physicain: Suresh Valencia MD, .Pharmacist Manager: Damaris Johnson RDMS Invasive Procedures ----- --------- Amniocentesis Instrument: TA 22G needle. Insertion site: upper right quadrant. Method: transamniotic. Entries uterus: 1 Sample: obtained Uncomplicated transabdominal genetic amniocentesis. Evaluation Post cardiac activity: present, normal Invasive Procedures Treatments Immediate Treatment No treatment Maternal Structures ----- --------- Uterus Visualized Cervix Visualized Approach - Transvaginal: Cervical length 4.50 cm Right Ovary Visualized Left Ovary Visualized Cul de Sac Visualized. No free fluid visualized Impression ----- --------- Single viable intrauterine consistent with 20w 3d with an DOMINIQUE of 12/12/2024. Transvaginal cervical length measures 4.5 cm. Genetic amniocentesis was performed under direct ultrasound guidance without complications. Results will be forwarded to you as soon as possible. Pre and post heart rates noted. Recommendations ----- --------- Please see [facility] documentation from today. The patient is scheduled in four week(s) to complete anatomic survey. Subsequent follow up or other follow up as clinically determined by primary OB provider unless otherwise specified by MFM. Results forwarded to ordering provider so they can follow up with the patient as necessary. The copy-to physician of this order is MAGAN Aguirre The ordering physician of this order is CHRISSIE Velázquez Procedure Note Radiology, Radiologist, - 07/28/2024 THIS EXAM WAS PERFORMED AT [facility] NAME: JEREMY BORDEN : 1995 SEX: F Accession Number: [id number] ORDERING PHYSICIAN: CHRISSIE SNOW REFERRING PHYSICIAN: MAGAN PAEZ Coding ----- --------- Procedures 37351: Ultrasound, uterus, real time with imagedocumentation, and maternal evaluation plus detailed anatomic examination, transabdominalapproach;single or first gestation 55391: Transvaginal Ultrasound (OB) 19883: Amniocentesis; diagnostic Indication ----- --------- Screening for Anatomic Survey, Screening for cervical length, Abnormalfinding on screening of mother-MOB + FOB CF carriers, Depression, Anxiety History ----- --------- OB History 1. Para 0 [id number] Current ----- --------- Cell free DNA low risk analysis Maternal Assessment ----- --------- Physical Exam Height 163 cm, 5 ft 4 in. Weight 86 kg, 190 lb. Initialweight 86 kg, 190 lb. BMI 32.61 kg/m???. Initial BMI 32.61 kg/m???. Weight gain 0 kg, 0 lb Method ----- --------- Transabdominal and transvaginal ultrasound examination. View: Suboptimalview: limited by position ----- --------- Dupont . Number of fetuses: 1 Dating ----- --------- LMP on: 03/07/2024 GA by LMP 20 w + 3 d DOMINIQUE by LMP: 12/12/2024 Previous Ultrasound on: 04/27/2024 Type of prior assessment: GA GA at prior assessment date 7 w + 2 d GA by previous U/S 20 w + 3 d DOMINIQUE by previous Ultrasound: 12/12/2024 Ultrasound examination on: 07/28/2024 GA by U/S based upon: AC, BPD, Femur, HC GA by U/S 20 w + 4 d DOMINIQUE by U/S: 12/11/2024 Assigned: based on the LMP, selected on 07/28/2024 Assigned GA 20 w + 3 d Assigned DOMINIQUE: 12/12/2024 General Evaluation ----- --------- Cardiac activity Present. FHR 153 bpm. Presentation: transverse headmaternal left Placenta: Placental site: anterior, away from cervical os Umbilical cord: Cord vessels: 3 vessel cord. Insertion site: normalinsertion Amniotic fluid: Amount of AF: normal amount Biometry ----- --------- Standard BPD 46.1 mm 20w 0d 29% Hadlock OFD 62.2 mm 21w 2d 79% Dank HC 175.3 mm 20w 0d 25% Hadlock Cerebellum tr 21.5 mm 20w 2d 67% Hill Nuchal fold 3.3 mm AC 165.6 mm 21w 4d 80% Hadlock Femur 34.6 mm 20w 6d 59% Hadlock Humerus 30.6 mm 20w 1d 39% Dank HC / AC 1.06 4% Hadlock EFW 399 g 79% Hadlock EFW (lb) 0 lb EFW (oz) 14 oz EFW by: Hadlock ([id number]) Extended Tibia 28.6 mm 20w 3d 55% Dank Multimedia Engineer 6.6 mm CM 5.3 mm 57% Nicolaides Nasal bone 5.8 mm Head / Face / Neck Cephalic index 0.74 9% Nicolaides Nasal bone: present Extremities / Bony Struc FL / BPD 0.75 85% Hadlock FL / HC 0.20 87% Hadlock FL / AC 0.21 20% Hadlock Other Structures FHR 153 bpm Anatomy ----- --------- The following structures appear normal: Head/Neck: Cranium. Lateral ventricles. Choroid plexus. Midline falx.Cavum septi pellucidi. Cerebellum. Cisterna magna. Parenchyma. Vermis. Neck. Nuchal fold. Face: Lips. Profile. Nose. Nasal bone. Maxilla. Mandible. Orbits. Heart/Thorax: 4-chamber view. RVOT view. LVOT view. 3-vessel view.7-ayscqs-vpvptob view. Situs. Bicaval view. Ductal arch view. Interventricular septum. Great vessels. Cardiacposition. Cardiac axis. Cardiac size. Cardiac rhythm. Diaphragm. Abdomen: Stomach. Kidneys. Bladder. Small bowel. Large bowel. Right renalartery. Left renal artery. Genitals. Spine: Cervical spine. Thoracic spine. Lumbar spine. Sacral spine. Extremities/Skeleton: Right upper arm. Right forearm. Right hand. Leftupper arm. Left forearm. Left hand. Right upper leg. Right lower leg. Right foot. Left upper leg. Left lower leg. Leftfoot. The following structures could not be adequately visualized: Abdomen Abdom. wall. The following structures could not be examined: Heart / Thorax Aortic arch view. Right lung. Left lung. Abdomen Cord insertion. Personnel ----- --------- Performing Physicain: Suresh Valencia MD, .Pharmacist Manager: Damaris Johnson RDMS Invasive Procedures ----- --------- Amniocentesis Instrument: TA 22G needle. Insertion site: upper rightquadrant. Method: transamniotic. Entries uterus: 1 Sample: obtained Uncomplicated transabdominal genetic amniocentesis. Evaluation Post cardiac activity: present, normal Invasive Procedures Treatments Immediate Treatment No treatment Maternal Structures ----- --------- Uterus Visualized Cervix Visualized Approach - Transvaginal: Cervical length 4.50 cm Right Ovary Visualized Left Ovary Visualized Cul de Sac Visualized. No free fluid visualized Impression ----- --------- Single viable intrauterine consistent with 20w 3d with an DOMINIQUE of12/12/2024. Transvaginal cervical length measures 4.5 cm. Genetic amniocentesis was performed under direct ultrasound guidancewithout complications. Results will be forwarded to you as soon as possible. Pre and post heart rates noted. Recommendations ----- --------- Please see [facility] documentation from today. The patient is scheduled in four week(s) to complete anatomic survey. Subsequent follow up or other follow up as clinically determined byprimary OB provider unless otherwise specified by [facility]. Results forwarded to ordering provider so they can follow up with thepatient as necessary. The copy-to physician of this order is MAGAN Aguirre The ordering physician of this order is CHRISSIE Velázquez us Magan Paez DO IMG OB US PROCEDURES Final Resul t * AFP, SERUM, OPEN SPINA BIFIDA (07/06/2024 10:06 AM EDT) RESULTS Report . [facility] TEST RESULTS: *Screen Negative* . [facility] GEST. AGE ON COLLECTION DATE 17.1 . weeks [facility] GESTAT. AGE BASED ON LMP . [facility] Comment: Recalculations are not recommended when gestational dating by LMP and ultrasound are within 10 days. [age]INIQUE 31[age]3 [age] [facility] RACE . [facility] WEIGHT 186 . lbs [facility] INSULIN DEP DIABETES No . [facility] MULTIPLE GESTATION No . H AFP VALUE 28.4 . ng/mL [facility] AFP MOM 0.85 . [facility] OSBR RISK [address] [place] [id number] . [facility] INTERPRETATION Comment . [facility] Comment: Interpretation: Screen Negative This result is screen negative for OSB. The AFP MoM calculated is based on the gestational age provided. MS-AFP can identify up to 80% of open neural tube defects. Closed neural tube defects and some open defects may not be detected by this test. This test does not screen for Down Syndrome or Trisomy 18. If screening for Down Syndrome or Trisomy 18 is desired, contact [facility] to discuss available options. The [employer] recommends amniocentesis be offered to women age 35 and older. COMMENT: Comment . [facility] Comment: Joan Shetty, Ph.D., [facility] Director References: Available Upon Request. Multiples Of Median Cutoffs For AFP Elevations Dupont 2.5 Black 2.8 IDD 2.0 Twins 4.5 Abbreviation Definitions IDD - Insulin Dep Diabetes OSBR - Open Spina Bifida Risk For further inquiries contact [employer] at [phone]. This test was developed and its performance characteristics determined by [employer]. It has not been cleared or approved by the Food and Drug Administration. Performed at: [facility], [address] [place], [place] [id number] Fill Manager: Sonja Esposito [facility], Phone: [phone] 07/06/2024 10:0 6 AM EDT 07/06/2024 10:07 AM EDT Narrative CLINISYNC - 07/08/2024 2:07 AM EDT N N LMP [id number] 1 17 N 1 Y 186 N N N N N White/ Jocy YOUNG LAB BLOOD ORDERABLES Final Resul t CLINISYNC [facility] * (ABNORMAL) IGP,APTIMA HPV,AGE GDLN (07/06/2024 8:54 AM EDT) AGE GDLN ACOG TESTING Note . [facility] Comment: TESTS RESULT FLAG UNITS REF RANGE LAB Clinician Provided Cytology Information Source.............Cervix Other.............. No. of containers..01 ThinPrep Vial Age Algo ACOG Charley... 30-65 01 FLAG LEGEND: L-Low Normal,H-High Normal,LL-Alert Low,HH-Alert High <-Panic Low,>-Panic High,A-Abnormal,AA-Critical Abnormal Performed at: 01 =G [facility] [address] [place] [address] Patricia Houser MD, IGP, APTIMA HPV, RFX 16/18,45 Note(A) . [facility] Comment: TESTS RESULT FLAG UNITS REF RANGE LAB DIAGNOSIS: [A] 02 EPITHELIAL CELL ABNORMALITY. LOW GRADE SQUAMOUS INTRAEPITHELIAL LESION (LSIL). Specimen adequacy: 02 Satisfactory for evaluation. Endocervical and/or squamous metaplastic cells (endocervical component) are present. Performed by: 03 Kelly Grant, Paediatrician (ASCP) Electronically si... Opal Ford MD, Pathologist . 02 Pathologist ICD10: 02 R87.612 Note: Note 02 The Pap smear is a screening test designed to aid in the detection of premalignant and malignant conditions of the uterine cervix. It is not a diagnostic procedure and should not be used as the sole means of detecting cervical cancer. Both false-positive and false-negative reports do occur. Test Methodology: Note 02 This liquid based ThinPrep(R) pap test was screened with the use of an image guided system. HPV Genotype Reflex Note 02 Criteria not met, HPV Genotype not performed. FLAG LEGEND: L-Low Normal,H-High Normal,LL-Alert Low,HH-Alert High <-Panic Low,>-Panic High,A-Abnormal,AA-Critical Abnormal Performed at: 02 WB [facility] [address] [address] Patricia Houser MD, 03 KWCYT [facility] [address] [address] [place] [address] Don Hawthorne MD, HPV APTIMA Negative Negative [facility] Comment: This nucleic acid amplification test detects fourteen high- risk HPV types (16,18,31,33,35,39,45,51,52,56,58,59,66,68) without differentiation. Performed at: =G - [facility] [address] [id number] Fill Manager: Patricia Houser MD, Phone: [phone] Performed at: [address] [place], [place] [id number] Fill Manager: Patricia Houser MD, Phone: [phone] 07/06/2024 8:54 AM EDT 07/06/2024 12:15 PM EDT Narrative CLINISYNC - 07/11/2024 4:09 PM EDT SPATULA-ALONE CERVIX us Jocy YOUNG LAB BLOOD ORDERABLES Final Resul t [facility] * Pap Smear (07/06/2024 12:00 AM EDT) Swab Cervical swab / Unknown us [facility] Jeannine Nurse LAB CYTOLOGY ORDERABLES Final Result EXTERNAL LAB * US OB CERVICAL LENGTH (07/05/2024 8:10 AM EDT) Anatomical Region Laterality Modality Other 07/05/2024 8:10 AM EDT Narrative 07/05/2024 8:13 [place] [address] Ultrasound Report Signed Patient: MICHI SERRANO MR#: [id number] : 1995 Acct:[id number] Age/Sex: 28 / F ADM Date: 07/05/24 Loc: US Attending Dr: Magan Paez D.O. Ordering Physician: Magan Paez D.O. Date of Service: 07/05/24 Procedure(s): US OB cervical length Accession Number(s): [id number] cc: ARMEN SÁNCHEZ ; Magan Paez D.O. [address] [address] Patient Name: MICHI SERRANO MRN: [id number] date: 1995 Sex: F Assigned Patient Location: US Current Patient Location: US Accession/Order Number: [id number] Exam Date: 07/05/2024 08:08 Report Date: 07/05/2024 08:10 At the request of: MAGAN PAEZ DO Procedure: US OB cervical length ULTRASOUND OB CERVICAL LENGTH CLINICAL DATA: History of LEEP COMPARISON: None There is a single live intrauterine gestation in breech presentation. The reported gestational age is 17 weeks 1 day. Cardiac and somatic activity is present with heart rate of 166 bpm. The amniotic fluid volume appears subjectively normal. The cervix was evaluated with the transvaginal probe. The cervix is closed. Estimated length is 4.5 cm. US/US OB cervical length IMPRESSION: CLOSED CERVIX MEASURING 4.5 CM IN LENGTH. Impression dictated by: Laura Rahman M.D.07/05/2024 8:10 AM Dictation Location: [place] [address] Electronically authenticated by: [id number] Date: 07/05/2024 08:10 Dictated By: Laura Rahman M.D. Signed By: 07/05/2413 DD/ 0810 TD/TT: Tube Machine Operator: Procedure Note Radiology, Radiologist, MD - 07/05/2024 [place] [address] Ultrasound Report Signed Patient: MICHI SERRANO KMR#: [id number] : 1995Acct:[id number] Age/Sex: 28 / FADM Date: 07/05/24 Loc: US Attending Dr: Magan Paez D.O. Ordering Physician: Magan Paez D.O. Date of Service: 07/05/24 Procedure(s): US OB cervical length Accession Number(s): [id number] cc: ARMEN SÁNCHEZ ; Magan Paez D.O. The [place] [address] Patient Name: MICHI SERRANO MRN: [id number] date: 1995 Sex: F Assigned Patient Location: US Current Patient Location: US Accession/Order Number: [id number] Exam Date: 07/05/2024 08:08 Report Date: 07/05/2024 08:10 At the request of: MAGAN PAEZ DO Procedure: US OB cervical length ULTRASOUND OB CERVICAL LENGTH CLINICAL DATA: History of LEEP COMPARISON: None There is a single live intrauterine gestation in breech presentation. The reported gestational age is 17 weeks 1 day. Cardiac and somatic activityis present with heart rate of 166 bpm. The amniotic fluid volume appears subjectively normal. The cervix was evaluated with the transvaginalprobe. The cervix is closed. Estimated length is 4.5 cm. US/US OB cervical length IMPRESSION: CLOSED CERVIX MEASURING 4.5 CM IN LENGTH. Impression dictated by: Laura Rahman M.D.07/05/2024 8:10 AM Dictation Location: [place] [address] Electronically authenticated by: [id number] Y Date: 508:10 Dictated By: Laura Rahman M.D. Signed By:07/05/2413 DD/ TD/TT: Tube Machine Operator: Magan Paez DO CLINISYNC IMAGING Final Result * Urine culture (06/14/2024 9:04 AM EDT) Urine Urine specimen obtained by clean catch procedure / Unknown Magan Paez DO LAB MICROBIOLOGY - GENERAL ORDER GUSTAVO Final Result EXTERNAL LAB from Last 3 Months Insurance * Guarantor: Michi Serrano Account Type Relation to Patient Date of Phone Billing Address Personal/Family Self 1995 [address] [place] [address] [employer] [facility] Care Teams Head Up Operator Helper Relationship Specialty Start Date End Date Armen Sánchez MD [address] [place] [address] PCP - General Family Medicine 05/05/24 Emi Bronson [facility] [address] [place] [address] Behavioral Health 04/12/24
--- OUTSIDE RECORDS SUMMARY | 2024-09-14 16:20 | XMS_ITS ---
Author Organization [employer] Source Produ ction (ClinicalSummary Clone) Address Unknown Care Team Providers Care Ged Instructor Name Role Phone Unavailable Primary Care Physician Unavailab le Results * [UNITY] CARRIER SCREEN Performed by: [employer] Value Range Date Fraction 4.6% 06/09/2024 03 :52 am [facility] Cystic Fibrosis NIPT result HIGH RISK 9 in 10 for cystic fibrosis. See PDF for details. 06/09/2024 03:52 am [facility] Sickle Cell Disease/Beta-Thalassemia/Hemo globinopathies carrier screen NEGATIVE 06/09/2024 03:52 am [facility] Alpha-Thalassemia carrier screen NEGATIVE 06/09/2024 03:52 am [facility] Cystic Fibrosis carrier screen POSITIVE [id number] ([id number]) 06/09/2024 03:52 am [facility] Spinal Muscular Atrophy carrier screen NEGATIVE 2 SMN1 copies, SNP not present 06/09/2024 03:52 am [facility] For detailed report, see PDF See PDF 06/09/2024 03:52 am [facility] 06/09/2024 03:5 2 am [facility] Social History Observation Value Start Date End Date
--- OUTSIDE RECORDS SUMMARY | 2024-09-14 16:20 | XMS_ITS | Encounter Summary ---
Author Organization [facility] Address [address] [place] [address] Care Team Providers Care Harm Reduction Worker Name Role Phone Emi Bronson Arpit [facility] Unavailable + [phone] Armen Sánchez MD Primary Care Provider + [phone] Encounter Details Date Type Department Care Team (Late st Contact Info) Description 05/24/2024 Abstract [facility] OB [address] [address] Curtis Paez, [address] Dan[address], [id number] Social History Tobacco Use Types Packs/Day Years [...] Description 09/18/2024 3:40 PM EDT Routine [facility] OB [address] [place] [address] Curtis Paez, [address] [place] [address] documented as of this encounter Visit Diagnoses Not on filedocumented in this encounter Care Teams Harm Reduction Worker Relationship Specialty Start Date End Date Armen Sánchez MD [address] [place] [address] PCP - General Family Medicine 05/05/24 Emi Bronson, [facility] [address] [place] [address] Behavioral Health 04/12/24 documented as of this encounter
--- OUTSIDE RECORDS SUMMARY | 2024-09-14 16:20 | XMS_ITS | Encounter Summary ---
Demographics Address [address] [place] [address] Mobile Phone Email Address Email Address Preferred Language Occitan Marital Status Single Caodaism Affiliation Unknown Race White Ethnic Group Not or Lati no Author Organization [employer] [facility] tem Address [id number] [address] [place] [address] Care Team Providers Care Patient Financial Rep Name Role Phone Armen Sánchez DO Primary Care Provider + [phone] Reason for Referral * Diagnostic Imaging (Routine) - Pending Review Specialty Diagnoses / Procedures Referred By Thom patel Referred To Contact Maternal and Medicine Diagnoses Cystic fibrosis carrier Abnormal genetic test during Procedures [facility] with or without consult Suresh Valencia MD [address] [facility], [address] [place] [address] Phone: tel: fax: Maternal- Medicine at [facility] [address] [place] [address] Phone: tel: fax: Referral ID Status Reason Start Date Expiration Date V isits Requested Visits Authorized [id number] Pending Review 09/07/2024 09/07/2025 1 1 Encounter Details Date Type Department Care Team (Late st Contact Info) Description 09/07/2024 Orders Only Maternal- Medicine at [facility] [address] [place] [phone] Miriam Joseph, RN 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); Abnormal genetic test during Social History Tobacco Use Types Packs/Day Years Used Date Smoking Tobacco: Every Day Cigarettes 1 13.1 Started: 08/01/2011 Smokeless Tobacco: Never Alcohol Use Standard Drinks/Week Comments Not Currently 0 (1 standard drink = 0.6 oz pur e alcohol) [facility] Utilities Answer Date Recorded In the past 12 months has th e electric, gas, oil, or water company [...] often do you attend chur ch or protestant services? Never 01/27/2024 Do you belong to any clubs o r organizations such as latter day groups, unions, fraternal or athletic groups, or [...] Answer Date Recorded Total Score 0 10/27/2023 [facility] [place] of Occupat ional Health - Occupational Stress [...] Recorded Do you need help finding a [facility] career center and/or a training [...] Info) Description 09/29/2024 3:00 PM EDT Appointment [facility] US Imaging [address] [place] [phone] Suresh Valencia MD [address], [address] [place] [address] Scheduled Orders Name Type Priority Associated Diagnoses Orde r Schedule US MFM with or without consult Imaging Routine Cystic fibrosis carrier Abnormal genetic test during Expected: 09/07/2025 (Approximate), Expires: 09/07/2025 documented as of this encounter Visit Diagnoses Diagnosis 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 Abnormal genetic test during documented in this encounter Additional Health Concerns Assessment Noted Time PHQ-9 Depression Total Score: 0 10/27/19 10:25 AM EDT A Body Mass Index follow-up plan has been documented for the patient 08/10/2023 10:14 AM EDT documented as of this encounter Care Teams Patient Financial Rep Relationship Specialty Start Date End Date Armen Sánchez DO [address] [facility], [facility] [place] [address] PCP - General Family Medicine 08/25/23 documented as of this encounter
--- OUTSIDE RECORDS SUMMARY | 2024-09-14 16:20 | XMS_ITS | Encounter Summary ---
Author Organization [facility] Address [address] [place] [address] Care Team Providers Care Printer Apprentice Name Role Phone Emi Bronson [facility] Unavailable + [phone] Armen Sánchez MD Primary Care Provider + [phone] Encounter Details Date Type Department Care Team (Late st Contact Info) Description 08/10/2023 Abstract [facility] OB [address] [place] [address] Curtis Paez DO [address] [place], [id number] Social History Tobacco Use Types Packs/Day Years [...] PM EDT Routine [facility] OB [address] [place] [address] Curtis Paez DO [address] [place] [address] [place] [address] documented as of this encounter Visit Diagnoses Not on filedocumented in this encounter Care Teams Printer Apprentice Relationship Specialty Start Date End Date Armen Sánchez MD [address] [place] [address] PCP - General Family Medicine 05/05/24 Emi Bronson [facility]IC [address] [place] [address] Behavioral Health 04/12/24 documented as of this encounter
--- OUTSIDE RECORDS SUMMARY | 2024-09-14 16:20 | XMS_ITS | Encounter Summary ---
Demographics Address [address] [place] [address] Home Phone Work Phone Mobile Phone Email Address Preferred Language Occitan Marital Status Single Spiritism Affiliation Unknown Race White Ethnic Group Not or Lati no Author Organization [facility] Address [address] [place] [address] Care Team Providers Care Microsoft Access Developer Name Role Phone Armen Sánchez DO Primary Care Provider Encounter Details Date Type Department Care Team (Latest Contact Info) Description 09/10/2024 Travel Social History Tobacco Use Types Packs/Day [...] on file documented as of this encounter Visit Diagnoses Not on filedocumented in this encounter Care Teams Microsoft Access Developer Relationship Specialty Start Date End Date Armen Sánchez DO [address] [place] [phone] PCP - General Family Medicine 04/27/24 documented as of this encounter
--- OUTSIDE RECORDS SUMMARY | 2024-09-14 16:20 | XMS_ITS | Encounter Summary ---
Author Organization [facility] Address [address] [place] [address] Care Team Providers Care Boot Trimmer Name Role Phone Emi Bronson Arpit [facility] Unavailable + [phone] Armen Sánchez MD Primary Care Provider + [phone] Encounter Details Date Type Department Care Team (Late st Contact Info) Description 05/09/2024 Abstract [facility] OB [address] [facility] [place] [address] Curtis Paez, [address] Daniella Draper, [facility]11 Social History Tobacco Use Types Packs/Day Years [...] Description 09/18/2024 3:40 PM EDT Routine [facility] [address] [place] [address] Curtis Paez, [address] [place] [address] documented as of this encounter Visit Diagnoses Not on filedocumented in this encounter Care Teams Boot Trimmer Relationship Specialty Start Date End Date Armen Sánchez MD [address] [place] [address] PCP - General Family Medicine 05/05/24 Emi Bronson, [facility] [address] [place] [address] Behavioral Health 04/12/24 documented as of this encounter
--- OUTSIDE RECORDS SUMMARY | 2024-09-14 16:20 | XMS_ITS | Encounter Summary ---
Author Organization [facility] tem Address [id number] [address] [place] [address] Care Team Providers Care Coat Checker Name Role Phone Princess Armen Steele DO Primary Care Provider Encounter Details Date Type Department Care Team (Late st Contact Info) Description 06/16/2024 Orders Only Maternal- Medicine at [facility] [address] [place] [phone] Curits Paez, DO [address] [facility] [place] [address] Social History Tobacco Use Types Packs/Day Years Used Date Smoking Tobacco: Every Day Cigarettes 1 13.1 Started: 08/01/2011 Smokeless Tobacco: Never Alcohol Use Standard Drinks/Week Comments Not Currently 0 (1 standard drink = 0.6 oz pur e alcohol) [facility] Utilities Answer Date Recorded In the past 12 months has [employer], gas, oil, or water [employer] threatened to shut off services in your home? No 08/25/2023 Social Connection and Isolation Panel [NHANES] A nswer Date Recorded In a typical week, how many times do you talk on the phone with family, friends, or neighbors? Three times a week 01/27/2024 How often do you get togethe r with friends or relatives? Once a week 01/27/2024 How often do you attend [facility] or gnosticist services? Never 01/27/2024 Do you belong to [...] Answer Date Recorded Total Score 0 10/27/2023 [facility] of Occupat ional Health - [...] Recorded Do you need help finding a l ocal career center and/or a training program? No [...] Description 09/29/2024 3:00 PM EDT Appointment [facility] US Imaging [address] [place] [address] Suresh Valencia MD [address], [address] [place] [address] documented as of this encounter Procedures Procedure Name Priority Date/Time Associated Diagnosis Comments UNLISTED LAB TEST Routine 06/08/2024 1:25 PM EST UNLISTED LAB TEST Routine 05/23/2024 1:26 PM EST documented in this encounter Results * Unlisted Lab Test (06/08/2024 1:25 PM EST) us Curtis R Jeannine DO LAB BLOOD ORDERABLES Final Resu lt Performing Organization Address City/[facility]/ZIP Co de Phone Number MANUALLY TRANSCRIBED RESULTS * Unlisted Lab Test (05/23/2024 1:26 PM EST) us Curtis R Jeannine DO LAB BLOOD ORDERABLES Final Resu lt MANUALLY TRANSCRIBED RESULTS documented in this encounter Visit Diagnoses Not on filedocumented in this encounter Additional Health Concerns Assessment Noted Time PHQ-9 Depression Total Score: 0 10/27/19 10:25 AM EDT A Body Mass Index follow-up plan has been documented for the patient 08/10/2023 10:14 AM EDT documented as of this encounter Care Teams Coat Checker Relationship Specialty Start Date End Date Armen Sánchez DO [address], [place] [address] PCP - General Family Medicine 08/25/23 documented as of this encounter
--- NOTE | 2024-09-14 16:48 | US_ITS ---
The [address] [address] Patient Name: MICHI LUNA MRN: [id number] date: 1995 Sex: F Assigned Patient Location: [facility] Current Patient Location: [facility] Accession/Order Number: [id number] Exam Date: 09/14/2024 17:56 Report Date: 09/14/2024 18:20 At the request of: TREASURE MELGOZA MD Procedure: US OB cervical length Limited ultrasound HISTORY: Vaginal bleeding. Assessment for growth. Assessment of the cervix. Assessment of the placenta. Fetus is in breech presentation. The amniotic fluid index is 15.1 cm within normal limits. Largest pocket measures 4.9 cm. Placenta is located in anterior position. The tip of this placenta is 2.5 cm from the internal os. heart rate 150 bpm. Cervical length 3.5 cm. There is no funneling of the cervical canal. The average gestational age by ultrasound is 26 weeks 6 days. Estimated date of delivery is 12/15/2024. Estimated weight is 990.8 g. In the inferior portion of the placenta there is adjacent hypoechoic area identified. This measures 1.7 x 3.9 x 2.9 cm. Minimal region of vascularity identified. No hyperechoic component identified. US/US OB cervical length IMPRESSION: Hypoechoic fluid collection adjacent to the placenta measuring up to 3.9 cm. This likely represents a subchorionic hemorrhage. There is no active bleeding within the collection. There is no hyperechoic components to suggest recent blood. Placenta is in adequate position with tip by 2.5 cm from the internal os. Single live uterine gestation 26 weeks 6 days. May consider short-term follow-up assessment for the hypoechoic fluid collection adjacent to the placenta to exclude active bleeding as clinically indicated. Cervical length 3.5 cm. Impression dictated by: Man Schumacher M.D. 09/14/2024 6:20 PM Dictation Location: Infectious Electronically authenticated by: [id number] Y Date: 09/14/2024 18:20
--- NOTE | 2024-09-14 16:48 | US_ITS ---
The [address] [address] Patient Name: MICHI LUNA MRN: [id number] date: 1995 Sex: F Assigned Patient Location: [facility] Current Patient Location: [facility] Accession/Order Number: [id number] Exam Date: 09/14/2024 17:56 Report Date: 09/14/2024 18:20 At the request of: TREASURE MELGOZA MD Procedure: US OB cervical length Limited ultrasound HISTORY: Vaginal bleeding. Assessment for growth. Assessment of the cervix. Assessment of the placenta. Fetus is in breech presentation. The amniotic fluid index is 15.1 cm within normal limits. Largest pocket measures 4.9 cm. Placenta is located in anterior position. The tip of this placenta is 2.5 cm from the internal os. heart rate 150 bpm. Cervical length 3.5 cm. There is no funneling of the cervical canal. The average gestational age by ultrasound is 26 weeks 6 days. Estimated date of delivery is 12/15/2024. Estimated weight is 990.8 g. In the inferior portion of the placenta there is adjacent hypoechoic area identified. This measures 1.7 x 3.9 x 2.9 cm. Minimal region of vascularity identified. No hyperechoic component identified. US/US OB placenta IMPRESSION: Hypoechoic fluid collection adjacent to the placenta measuring up to 3.9 cm. This likely represents a subchorionic hemorrhage. There is no active bleeding within the collection. There is no hyperechoic components to suggest recent blood. Placenta is in adequate position with tip by 2.5 cm from the internal os. Single live uterine gestation 26 weeks 6 days. May consider short-term follow-up assessment for the hypoechoic fluid collection adjacent to the placenta to exclude active bleeding as clinically indicated. Cervical length 3.5 cm. Impression dictated by: Man Schumacher M.D. 09/14/2024 6:20 PM Dictation Location: [address] Electronically authenticated by: [id number] Y Date: 09/14/2024 18:20
--- NOTE | 2024-09-14 16:49 | US_ITS ---
The [address] [address] Patient Name: MICHI LUNA MRN: [id number] date: 1995 Sex: F Assigned Patient Location: [facility] Current Patient Location: [facility] Accession/Order Number: [id number] Exam Date: 09/14/2024 17:56 Report Date: 09/14/2024 18:20 At the request of: TREASURE MELGOZA MD Procedure: US OB cervical length Limited ultrasound HISTORY: Vaginal bleeding. Assessment for growth. Assessment of the cervix. Assessment of the placenta. Fetus is in breech presentation. The amniotic fluid index is 15.1 cm within normal limits. Largest pocket measures 4.9 cm. Placenta is located in anterior position. The tip of this placenta is 2.5 cm from the internal os. heart rate 150 bpm. Cervical length 3.5 cm. There is no funneling of the cervical canal. The average gestational age by ultrasound is 26 weeks 6 days. Estimated date of delivery is 12/15/2024. Estimated weight is 990.8 g. In the inferior portion of the placenta there is adjacent hypoechoic area identified. This measures 1.7 x 3.9 x 2.9 cm. Minimal region of vascularity identified. No hyperechoic component identified. US/US OB growth IMPRESSION: Hypoechoic fluid collection adjacent to the placenta measuring up to 3.9 cm. This likely represents a subchorionic hemorrhage. There is no active bleeding within the collection. There is no hyperechoic components to suggest recent blood. Placenta is in adequate position with tip by 2.5 cm from the internal os. Single live uterine gestation 26 weeks 6 days. May consider short-term follow-up assessment for the hypoechoic fluid collection adjacent to the placenta to exclude active bleeding as clinically indicated. Cervical length 3.5 cm. Impression dictated by: Man Schumacher M.D. 09/14/2024 6:20 PM Dictation Location: [employer] Electronically authenticated by: [id number] Y Date: 09/14/2024 18:20
[2024-09-14 17:04] LABS: Basophils Absolute Auto 0.1 10^3/uL (0.0-0.1); Basophils Percent Auto 0.6 % (0.2-2.0); Eosinophils Absolute Auto 0.2 10^3/uL (0.0-0.7); Eosinophils Percent Auto 1.5 % (0.9-7.0); Hematocrit 35.1 % (36.0-48.0); Immature Granulocytes Abs Auto 0.06 10^3/uL (0.00-0.03); Immature Granulocytes Pct Auto 0.5 % (0.0-0.5); Lymphocytes Absolute Auto 2.2 10^3/uL (1.2-3.8); Lymphocytes Percent Auto 19.1 % (20.5-60.0); Mean Corpuscular HGB Conc 34.2 g/dL (29.9-35.2); Mean Corpuscular Hemoglobin 30.2 pg (26.7-34.0); Mean Corpuscular Volume 88.4 fL (81.0-99.0); Mean Platelet Volume 9.9 fL (9.5-13.5); Monocytes Absolute Auto 0.8 10^3/uL (0.3-0.8); Monocytes Percent Auto 6.9 % (1.7-12.0); Neutrophils Absolute Auto 8.3 10^3/uL (1.4-6.5); Neutrophils Percent Auto 71.4 % (43.0-75.0); Platelet Count 249 10^3/uL (150-450); Red Blood Count 3.97 10^6/uL (4.20-5.40); Red Cell Distribution Width 13.4 % (11.0-15.0); White Blood Count 11.7 10^3/uL (4.0-11.0)
--- NOTE | 2024-09-14 17:14 | PC.NURSE ---
1625- Pt arrives to [facility] at this time with uspport person via ambulatory. Pt c/o of heavy vaginally bleeding that started prior to arriving to [facility]. Pt states she was at [employer] and squatted down and felt a pop and got back into her car and drove home to find her underwear soaked with dark red blood. Pt then sat on the toilet and stated/showed RNs a picture of dark red blood in toilet. Pt reports having an anterior placenta and feels movement when lying down. Pt seen by another local hospital on Wednesday for work related injury d/t abdomen injury; pt stated she was discharged without complications. Pt states she is currently off work until tomorrow. Pt denies UTI s/s. Pt denies bowel movement issues. Pt denies abdominal tenderness or cramping or cxt's. Pt denies intercourse , recent cervical exam, or spec exam. Pt placed on and UC monitors. Active movement noted on US. FHR audible 145 bpm. Pt abdomen palpates soft; no tenderness with palpation.
[2024-09-14 17:41] VITALS: BP 133/63; PULSE 80
--- NOTE | 2024-09-14 17:52 | PC.NURSE ---
1652- Pt removed from monitors for US order. 1725- US completed at this time. Cervical length 3.5 and sm tunneling noted per US tech. EFW 90.8g/ 2lbs 3oz. NAYE 15.1. Per US tech 2cm dark area noted on placenta. US tech stated dark blood noted on probe. RN at bedside and 4x4 area of red blood noted on washcloth between pt legs. Pt given urine specimen cup for sample and pad placed between pt legs. 1734- Pt finished urinating at this time. Pt states she had small amounts of blood when wiping in bathroom. Pt urine pale, yellow urine.
[2024-09-14 17:59] LABS: Bilirubin Urine NEGATIVE (NEGATIVE); Blood Urine LARGE (NEGATIVE); Clarity Urine CLEAR (CLEAR); Color Urine YELLOW (YELLOW); Glucose Urine UA NEGATIVE (NEGATIVE); Ketones Urine >=80 mg/dL (NEGATIVE); Leukocyte Esterase Urine NEGATIVE (NEGATIVE); Nitrite Urine NEGATIVE (NEGATIVE); Protein Urine NEGATIVE (NEG/TRACE); Urobilinogen Urine 0.2 EU/dL (0.2-1.0)
[2024-09-14 18:01] LABS: Urine Microscopic Indicated YES
[2024-09-14 18:11] LABS: Bacteria Urine TRACE #/HPF (NONE SEEN); Cast Seen? NONE SEEN #/LPF (NONE SEEN); Crystals Seen? None Seen #/HPF (None Seen); Mucus Urine NONE SEEN (NONE SEEN); Squamous Epithelial Cell Urine MODERATE #/LPF (NONE/RARE); Urine Culture Indicated NO; WBC Urine NONE SEEN #/HPF (NONE SEEN)
--- NOTE | 2024-09-14 19:40 | PC.NURSE ---
1840- Pt updated on plan of care. Pt request to drink PO fluids and be discharged home. Pt educated regarding plan of care. Pt given pads and underwear to use restroom 1844- Pt finished using restroom. silver dollar size pink-red blood noted on toilet paper and in toilet. Pt decides she would stay for fluids at this time. 1849- Iv attempt x1 per Godfrey AGUIRRE. Unsuccessful. IV attempt x1 per Raysa AGUIRRE. Unsuccessful. Pt refuses any more IV attempts at this time; pt decides to go home and revert to PO fluids. 1899-Pt reeducated on plan of care and pt continues to request to go home. 1914- [facility] discharge instructions at this time. 1924-[facility] instructions signed per pt. Pt discharged home.
== END 2024-09-14 19:25 | disposition home or self-care (01) ==
PROVIDERS: Admitting Provider Family Medicine Addiction Medicine; PCP Family Medicine; Visit Provider Family Medicine Addiction Medicine
DX: O46.8X2 Other antepartum hemorrhage, second trimester (principal); Z3A.27 27 weeks gestation of pregnancy
CPT/HCPCS: 36415; 59025; 76815; 76816; 76817; 81001; 85025; G0378; G0379

== ENCOUNTER 2024-09-21 13:59 | Outpatient (OUT) | payer OTHER, SELFPAY ==
--- OUTSIDE RECORDS SUMMARY | 2014-12-19 09:30 | XMS_ITS | Continuity of Care Document ---
Author Organization [facility] Address [address] [place] [address] Phone Care Team Providers Care Bit Bender Name Role Phone Yasmin Turcios MD Unavailable [...] Diagnoses Date Provider Providers Copied on Encounter [facility], [address], [place], [place], [address], tel:[phone] [facility] No Information Dec- 5 Tam NULL Yasmin[address] [place], [place], [address], [place]. tel:[phone] [facility], [address], [place], [place], [address], tel:[phone] [facility] contraception (chief complaint) Test - NegativeSubse q. Contraceptive Surveillance Dec- 0 5 Tam [address] [place], [place], [address], [place]. tel:[phone] Init Preven Meds E&m New Pt; 18-39 [facility], [address], [place], [place], [address], [place] tel:[phone] [facility] annual exam (chief complaint) ROUTINE ICT SALES REPRESENTATIVE EXAMINATIONPr egnancy Test - Negative Tam NULL Yasmin. [address] [place], [place], [address], [place]. tel:[phone] Family History Family Member Type Diagnosis Age At Onset Paternal grandmother Problem (finding) breast cancer Payers Payer name Insurance type Covered democrat ID Authoriza tion(s) [place] [facility] [place] [id number] Social History Type Description Quantity Date Captured [...]
--- OUTSIDE RECORDS SUMMARY | 2024-09-07 10:30 | XMS_ITS | Encounter Summary ---
Author Organization [employer] [facility] tem Address [id number] [address] [place] [address] Care Team Providers Care Railroad Police Officer Name Role Phone PrincessArmen Cedric [place] Primary Care Provider Encounter Details Date Type Department Care Team (Late st Contact Info) Description 09/07/2024 10:30 AM EDT Office Visit [facility] [address] [place] [address] [address] [place] [phone] [place] [address] [place] [address], [address] [place], [place] [phone] 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); Encounter for consultation Social History Tobacco Use Types Packs/Day Years Used Date Smoking Tobacco: Every Day Cigarettes 1 13.1 Started: 08/01/2011 Smokeless Tobacco: Never Alcohol Use Standard Drinks/Week Comments Not Currently 0 (1 standard drink = 0.6 oz pur e alcohol) [facility] Utilities Answer Date Recorded In the past 12 months has th Social Strategy 1 electric, gas, oil, or water company threatened [...] week 01/27/2024 How often do you attend [facility] or jewish services? Never 01/27/2024 Do you belong to any clubs o r organizations such as worship groups, unions, fraternal or athletic groups, or [...] Answer Date Recorded Total Score 0 10/27/2023 [facility] - Occupational Stress [...] Recorded Do you need help finding a [facility] career center and/or a training program? No [...] today. Sapna underwent cell free DNA testing ([facility] NIPT) which indicated that the fetus is at high risk for cystic fibrosis. Both parents are known to be carriers of a CFTR variant. She underwent amniocentesis which indicated two CF causing variants ([id number] and [id number]). This is mom's first . There is [...] on sweat chloride testing. The 2 variants ([id number] and [id number]) that were identified by amniocentesis are highly likely to be associated with pancreatic insufficiency based on the [id number]. Therefore, we discussed that if she is [...] Info) Description 09/29/2024 3:00 PM EDT Appointment [facility] US Imaging [address] [place] [phone] Suresh Valencia MD [address], [address] [place] [address] documented as of this encounter Visit Diagnoses Diagnosis 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 Encounter for consultation documented in this encounter Additional Health Concerns Assessment Noted Time PHQ-9 Depression Total Score: 0 10/27/19 10:25 AM EDT A Body Mass Index follow-up plan has been documented for the patient 08/10/2023 10:14 AM EDT documented as of this encounter Care Teams Railroad Police Officer Relationship Specialty Start Date End Date Armen Sánchez DO [address] [facility] [address] PCP - General Family Medicine 08/25/23 documented as of this encounter
--- OUTSIDE RECORDS SUMMARY | 2024-09-10 21:51 | XMS_ITS | Encounter Summary ---
Demographics Address [address] [place] [address] Home Phone Work Phone Mobile Phone Email Address Preferred Language Romansh Marital Status Single Sikhism Affiliation Unknown Race White Ethnic Group Not or Lati no Author Organization [facility] Address [address] [place] [address] Care Team Providers Care Institutional Commodity Analyst Name Role Phone Armen Sánchez DO Primary Care Provider Encounter Details Date Type Department Care Team (Latest Contact Info) Description 09/10/2024 9:51 PM EDT - 09/11/2024 12:42 AM EDT Hospital Encounter [facility] Labor and Delivery [address] [phone] Victorino Christie DO [address] [place] [phone] Discharge Disposition: Home or Self Care Social [...] AM EDT OUTPATIENT DISCHARGE Dr. Marlen Don [facility] Dr. Lillian Maldonado CN 45 [facility] [address] [facility] [address] [place] [address] Lillian NULL [facility] 1917 [facility] [address] [phone] Tamara Myers, MSN, BETTING CLERK, CNM [place] [phone] [facility] [address] [address] [facility] [address] Antoinette Macdonald CNM [address] [place] [address] [place] [address] Gemma Benson CNM [address] [facility] [place] [address] [phone] ACTIVITY LIMITATIONS: ( )Up and about as [...] encounter documented in this encounter Care Teams Institutional Commodity Analyst Relationship Specialty Start Date End Date Armen Sánchez DO [address] [place] [address] PCP - General Family Medicine 04/27/24 documented as of this encounter
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
--- NOTE | 2024-09-21 | US_ITS ---
[address] [address] Patient Name: MICHI LUNA MRN: [id number] date: 1995 Sex: F Assigned Patient Location: US Current Patient Location: US Accession/Order Number: [id number] Exam Date: 09/21/2024 14:39 Report Date: 09/21/2024 14:40 At the request of: MAGAN TRISTAN DO Procedure: US OB cervical length Cervical length ultrasound Reason for exam: Vaginal bleeding for one week. COMPARISON: Ultrasound 09/14/2024. TECHNIQUE: Transabdominal imaging of the gravid uterus was obtained. FINDINGS: Cervical length measures 4.6 cm no evidence of funneling. US/US OB cervical length IMPRESSION: Normal cervical length without evidence of funneling. Impression dictated by: Hugo Atkins Jr., D.O. 09/21/2024 2:40 PM Dictation Location: [place] [address] Electronically authenticated by: [id number] Y Date: 09/21/2024 14:40
--- OUTSIDE RECORDS SUMMARY | 2024-09-21 14:01 | XMS_ITS | Encounter Summary ---
Author Organization [facility] Address [address] [place] [address] Care Team Providers Care Senior Marketing Data Analyst Name Role Phone Galen Bronsonalfred Munson [facility] Unavailable + [phone] Armen Sánchez MD Primary Care Provider + [phone] Encounter Details Date Type Department Care Team (Latest Contact Info) Description 09/18/2024 Travel Social History Tobacco Use Types Packs/Day [...] PM EDT Routine [facility] OB [address] [place] [address] Curtis Paez DO [address] [place], [place] [id number] documented as of this encounter Visit Diagnoses Not on filedocumented in this encounter Care Teams Senior Marketing Data Analyst Relationship Specialty Start Date End Date Armen Sánchez MD [address] [place] [address] PCP - General Family Medicine 05/05/24 Emi Bronson [facility] [address] [place] [address] Behavioral Health 04/12/24 documented as of this encounter
--- OUTSIDE RECORDS SUMMARY | 2024-09-21 14:01 | XMS_ITS | Encounter Summary ---
Author Organization [facility] Address [address] [place] [address] Care Team Providers Care Computer Graphic Designer Name Role Phone Emi Bronson Arpit [facility] Unavailable + [phone] Armen Sánchez MD Primary Care Provider + [phone] Encounter Details Date Type Department Care Team (Late st Contact Info) Description 09/18/2024 Bamboo flowsheet [facility] OB [address] [facility] [address] Curtis Paez, [address] [place], [facility] Social History Tobacco Use Types Packs/Day Years [...] Routine [facility] BCP OB [address] [place] [address] Curtis Paez, [address] [place] [address] documented as of this encounter Visit Diagnoses Not on filedocumented in this encounter Care Teams Computer Graphic Designer Relationship Specialty Start Date End Date Armen Sánchez MD [address] [place] [address] PCP - General Family Medicine 05/05/24 Emi Bronson [facility] [address] [place] [address] Behavioral Health 04/12/24 documented as of this encounter
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
--- OUTSIDE RECORDS SUMMARY | 2024-09-21 14:02 | XMS_ITS | Clinical Summary ---
Author Organization [facility] Address [address] [place] [address] Care Team Providers Care Stereo Map Plotter Operator Name Role Phone Aiyana, Emi Munson [facility] Unavailable [phone] Armen Sánchez MD Primary Care Provider [phone] Allergies Active Allergy Reactions Criticality Noted Date Comments Penicillin G Rash Low 05/05/2024 Penicillins Hives,Itching 08/16/2018 Yeast infections Medications polyethylene glycol, PEG, 3350 (Glycolax) 17 GM/SCOOP powder Take 17 g by mouth 1 (one) time Active MV-Min-Fe Fum-FA-DHA ( 1 PO) Take 1 each by mouth Daily Active venlafaxine XR (Effexor XR) 37.5 MG 24 hr capsuleIndicatio ns:Anxiety, generalized Take 1 capsule (37.5 mg) by mouth Daily Do not crush or chew. 30 capsule 5 09/18/2024 09/19/19 26 Active Active Problems Problem Noted Date Diagnosed Date Cystic fibrosis carrier, antepartum ([facility]) Moderate episode of recurrent major depressive d isorder 10/25/2023 ALICIA (generalized anxiety disorder) 10/25/2023 Estimated Date of Delivery Comme nts Yes 12/12/2024 Based on last me nstrual period of 03/07/2024 Encounters Date Type Department Care Team Description 09/21/2024 Telephone [facility] [address] [place] [address] Antoinette Jackman, TUGBOAT CAPTAIN 09/19/[address] [address] [place] [address] Tato Laura, [employer]GBO[employer]TAIN 09/18/2024 3:40 PM EDT Routine [facility] [address] [place] [address] Magan Paez DO Anxiety, generalized (Primary Dx); Second trimester ([facility]); 27 weeks gestation of ([facility]); Cystic fibrosis carrier, antepartum ([facility]) 09/18/2024 Bamboo flowsheet [facility] [address] [place] [address] Magan Paez, 09/18/2024 Travel 08/30/2024 9:50 AM EDT Routine [facility] [address] [place] [address] Jocy Ruby PA Second trimester ([facility]); 25 weeks gestation of ([facility]) 08/30/2024 Clinisync Result Encounter [facility] External Department Unsolicited Magan Paez DO 08/30/2024 Bamboo flowsheet [facility] [address] [place] [address] Jocy Ruby PA 08/14/2024 10:30 AM EDT Procedure Visit [facility] [address] [place] [address] Magan Paez DO Cystic fibrosis carrier, antepartum ([facility]); LGSIL on Pap smear of cervix 08/14/2024 Travel 08/01/2024 1:20 PM EDT Routine [facility] [address] [place] [address] Magan Paez DO Chlamydia trachomatis infection; 21 weeks gestation of ([facility]); Second trimester ([facility]); Diabetes mellitus screening 08/01/2024 Bamboo flowsheet [facility] [address] [place] [address] Magan Paez DO 08/01/2024 Travel 07/11/2024 12:00 PM EDT Clinical Support [facility] [address] [place] [address] Emi Bronson, [facility] Moderate episode of recurrent major depressive disorder (HCC); ALICIA (generalized anxiety disorder) 07/11/2024 Orders Only [facility] [address] [place] [address] Mary Quinn LPN 07/11/2024 Bamboo flowsheet [facility] [address] [place] [address] Emi Bronson [facility] 07/11/2024 Travel 07/10/[address] [facility] [address] [place] [address] Nely Warren MA 07/06/2024 8:30 AM EDT Routine [facility] [address] [place] [address] Jocy Ruby PA 17 weeks gestation of ([facility]); Second trimester ([facility]); Well woman exam with routine gynecological exam; Exposure to STD; Vaginal discharge 07/06/2024 Clinisync Result Encounter [facility] External Department Unsolicited Jocy Ruby PA 07/06/2024 External Result Encounter [facility] External Department Unsolicited Jocy Ruby PA 07/06/2024 Bamboo flowsheet [facility] [address] [place] [address] Jocy Ruby PA 07/05/2024 Travel 07/05/2024 Clinisync [...] PM EDT Routine [facility] [address] [facility] [address] JeannineMagan vicente, DO [address] [facility] [facility] [place] [address] Procedures Procedure Name Priority Date/Time Associated Diagnosis Comments GLUCOSE 1 HOUR Routine 08/30/2024 11:28 AM EDT ALL CBC WITH AUTO DIFF Routine 08/30/2024 11:28 AM EDT POCT URINALYSIS DIPSTICK Routine 08/30/2024 11:24 AM EDT Second trimester ([facility]) COLPOSCOPY Routine 08/14/2024 2:19 PM EDT LGSIL on Pap smear of cervix RECURRENT VAGINITIS (HTRX) Routine 08/01/2024 2:52 PM EDT US OB 14+ WEEKS ANATOMY SCAN 07/28/2024 1:13 PM EDT RECURRENT VAGINITIS (HTRX) Routine 07/06/2024 12:13 PM EDT AFP, SERUM, OPEN SPINA BIFIDA Routine 07/06/2024 10:06 AM EDT POCT URINALYSIS DIPSTICK Routine 07/06/2024 9:19 AM EDT 17 weeks gestation of ([facility]) Second trimester ([facility]) IGP,APTIMA HPV,AGE GDLN Routine 07/06/2024 8:54 AM EDT PAP SMEAR Routine 07/06/2024 12:00 AM EDT US OB CERVICAL LENGTH 07/05/2024 8:10 AM EDT from Last 3 Months Results * GLUCOSE 1 HOUR (08/30/2024 11:28 AM EDT) GLUCOSE 1 HOUR 66 <130 mg/dL [facility] 08/30/2024 11:2 8 AM EDT 08/30/2024 11:29 AM EDT Narrative ALFIE - 08/30/2024 12:05 PM EDT us Magan Jeannine DO LAB BLOOD ORDERABLES Final Resul t [facility] * (ABNORMAL) ALL CBC WITH AUTO DIFF [...] EDT Magan Paez DO CLINISYNC Final Result [facility] * (ABNORMAL) POCT urinalysis dipstick manually resulted [...] Result * Colposcopy (08/14/2024 2:19 PM EDT) Narrative Magan Paez DO - 08/14/2024 2:19 PM EDT Magan [...] paperwork completed: yes Educational handouts given: no Magan Paez DO IN CLINIC/BEDSIDE ORDERABLES Fin al Result * RECURRENT VAGINITIS (HTRX) (08/01/2024 2:52 PM EDT) Only the most recent of2 resultswithin the time period is included. Pathologist [facility] ATOPOBIUM VAGINAE 0.000 19.961 - 24.689 ppm 08/02/2024 7:05 AM EDT [facility] ATOPOBIUM VAGINAE Not Detected 19.961 - 24.689 ppm 08/02/2024 7:05 AM EDT [facility] BVAB 2,3 (BACTERIAL VAGINOSIS ASSOCIATED BACTERIA 2, 3); MOBILUNCUS SPP 0.000 19.961 - 24.689 ppm 08/02/2024 7:05 AM EDT [facility] BVAB 2,3 (BACTERIAL VAGINOSIS ASSOCIATED BACTERIA 2, 3); MOBILUNCUS SPP Not Detected 19.961 - 24.689 ppm 08/02/2024 7:05 AM EDT [facility] ILIANA ALBICANS, PARAPSILOSIS, TROPICALIS 0.000 19.961 - 30.770 ppm 08/02/2024 7:05 AM EDT [facility] ILIANA ALBICANS, PARAPSILOSIS, TROPICALIS Not Detected 19.961 - 30.770 ppm 08/02/2024 7:05 AM EDT [facility] ILIANA GLABRATA 0.000 23.000 - 32.138 ppm 08/02/2024 7:05 AM EDT [facility] ILIANA GLABRATA Not Detected 23.000 - 32.138 ppm 08/02/2024 7:05 AM EDT [facility] ILIANA KRUSEI 0.000 23.000 - 32.271 ppm 08/02/2024 7:05 AM EDT [facility] ILIANA KRUSEI Not Detected 23.000 - 32.271 ppm 08/02/2024 7:05 AM EDT [facility] CHLAMYDIA TRACHOMATIS 0.000 23.000 - 31.467 ppm 08/02/2024 7:05 AM EDT [facility] CHLAMYDIA TRACHOMATIS Not Detected 23.000 - 31.467 ppm 08/02/2024 7:05 AM EDT [facility] GARDNERELLA VAGINALIS 0.000 19.961 - 24.689 ppm 08/02/2024 7:05 AM EDT [facility] GARDNERELLA VAGINALIS Not Detected 19.961 - 24.689 ppm 08/02/2024 7:05 AM EDT [facility] MEGASPHAERA (TYPES 1, 2) 0.000 19.961 - 24.689 ppm 08/02/2024 7:05 AM EDT [facility] MEGASPHAERA (TYPES 1, 2) Not Detected 19.961 - 24.689 ppm 08/02/2024 7:05 AM EDT [facility] NEISSERIA GONORRHOEAE 0.000 23.000 - 32.117 ppm 08/02/2024 7:05 AM EDT [facility] NEISSERIA GONORRHOEAE Not Detected 23.000 - 32.117 ppm 08/02/2024 7:05 AM EDT [facility] TRICHOMONAS VAGINALIS 0.000 23.000 - 32.119 ppm 08/02/2024 7:05 AM EDT [facility] TRICHOMONAS VAGINALIS Not Detected 23.000 - 32.119 ppm 08/02/2024 7:05 AM EDT [facility] MYCOPLASMA GENITALIUM 0.000 19.961 - 24.689 ppm 08/02/2024 7:05 AM EDT [facility] MYCOPLASMA GENITALIUM Not Detected 19.961 - 24.689 ppm 08/02/2024 7:05 AM EDT [facility] Tissue 08/01/2024 2:52 PM EDT 08/02/2024 2:14 AM EDT us Magan Paez DO LAB BLOOD ORDERABLES Final Resul t [facility] [address] [place] [address] * US OB 14+ weeks anatomy scan (07/28/2024 1:13 PM EDT) Anatomical Region Laterality Modality Body Ultrasound 07/28/2024 1:13 PM EDT Narrative 07/28/2024 1:13 PM EDT THIS EXAM WAS PERFORMED AT [facility] NAME: JEREMY BORDEN : 1995 SEX: F Accession Number: [id number] ORDERING PHYSICIAN: CHRISSIE SNOW REFERRING PHYSICIAN: MAGAN PAEZ Coding ----- --------- Procedures 27832: Ultrasound, uterus, real time with image documentation, and maternal evaluation plus detailed anatomic examination, transabdominal approach;single or first gestation 45296: Transvaginal Ultrasound (OB) 07175: Amniocentesis; diagnostic Indication ----- --------- Screening for Anatomic Survey, Screening for cervical length, Abnormal finding on screening of mother-MOB + FOB CF carriers, Depression, Anxiety History ----- --------- OB History 1. Para 0 [id number] Current ----- --------- Cell free DNA low [...] EFW (oz) 14 oz EFW by: Hadlock (MOT-AB-EA-FL) Extended Tibia 28.6 mm 20w 3d 55% Dank Manager Case Management 6.6 mm CM 5.3 mm 57% Nicolaides [...] view. RVOT view. LVOT view. 3-vessel view. 5-jcwoqy-ewigpjw view. Situs. Bicaval view. Ductal arch view. [...] ----- --------- Performing Physicain: Suresh Valencia MD, .Impact Hammer Operator: Damaris Johnson RDMS Invasive Procedures ----- --------- [...] rates noted. Recommendations ----- --------- Please see [facility] documentation from today. The patient is scheduled in four week(s) to complete anatomic survey. Subsequent follow up or other follow up as clinically determined by primary OB provider unless otherwise specified by [facility]. Results forwarded to ordering provider so they can follow up with the patient as necessary. The copy-to physician of this order is MAGAN Aguirre The ordering physician of this order is CHRISSIE Velázquez Procedure Note Radiology, Radiologist, MD - 07/28/2024 THIS EXAM WAS PERFORMED AT [facility] NAME: JEREMY BORDEN : 1995 SEX: F Accession Number: [id number] ORDERING PHYSICIAN: CHRISSIE SNOW REFERRING PHYSICIAN: MAGAN PAEZ Coding ----- --------- Procedures 37921: Ultrasound, uterus, real time with imagedocumentation, and maternal evaluation plus detailed anatomic examination, transabdominalapproach;single or first gestation 98324: Transvaginal Ultrasound (OB) 99207: Amniocentesis; diagnostic Indication ----- --------- Screening for Anatomic Survey, Screening for cervical length, Abnormalfinding on screening of mother-MOB + FOB CF carriers, Depression, Anxiety History ----- --------- OB History 1. Para 0 [id number] Current ----- --------- Cell free DNA low [...] EFW (oz) 14 oz EFW by: Hadlock (ICG-AS-TY-FL) Extended Tibia 28.6 mm 20w 3d 55% Dank Manager Case Management 6.6 mm CM 5.3 mm 57% Nicolaides [...] 4-chamber view. RVOT view. LVOT view. 3-vessel view.0-gxjrri-cyczptu view. Situs. Bicaval view. Ductal arch view. [...] ----- --------- Performing Physicain: Suresh Valencia MD, .Impact Hammer Operator: Damaris Johnson RDMS Invasive Procedures ----- --------- [...] rates noted. Recommendations ----- --------- Please see [facility] documentation from today. The patient is scheduled in four week(s) to complete anatomic survey. Subsequent follow up or other follow up as clinically determined byprimary OB provider unless otherwise specified by [facility]. Results forwarded to ordering provider so they can follow up with thepatient as necessary. The copy-to physician of this order is MAGAN Aguirre The ordering physician of this order is CHRISSIE Velázquez us Magan Paez DO IMG OB US PROCEDURES Final Resul t * AFP, SERUM, OPEN SPINA BIFIDA (07/06/2024 10:06 AM EDT) RESULTS Report . [facility] TEST RESULTS: *Screen Negative* . [facility] GEST. AGE ON COLLECTION DATE 17.1 . weeks [facility] GESTAT. AGE BASED ON LMP . [facility] Comment: Recalculations are not recommended when gestational dating by LMP and ultrasound are within 10 days. MATERNAL [age]QUE 31.1 . [age] [facility] RACE . [facility] WEIGHT 186 . lbs [facility] INSULIN DEP DIABETES No . TB MULTIPLE GESTATION No . [facility] AFP VALUE 28.4 . ng/mL [facility] AFP MOM 0.85 . [facility] [place] [address] [place] [address] . [facility] INTERPRETATION Comment . [facility] Comment: Interpretation: Screen Negative This result [...] Customer Services to discuss available options. The [place] [employer] [place] [employer] recommends amniocentesis be offered to women age 35 and older. COMMENT: Comment . [facility] Comment: Joan Shetty, Ph.D., [facility] Director References: Available Upon Request. Multiples Of Median Cutoffs For AFP Elevations Dupont 2.5 Black 2.8 IDD 2.0 Twins 4.5 Abbreviation Definitions IDD - Insulin Dep Diabetes OSBR - Open Spina Bifida Risk For further inquiries contact [facility] at [phone]. This test was developed and its performance characteristics determined by [employer]. It has not been cleared or approved by the Food and Drug Administration. Performed at: [facility] [address] [facility], [place], [place] [id number] Alliance Director: Sonja Esposito [facility], Phone: [phone] 07/06/2024 10:0 6 AM EDT 07/06/2024 10:07 AM EDT Narrative ALFIE - 07/08/2024 2:07 AM EDT N N LMP [id number] 1 17 N 1 Y 186 N N N N N White/ Jocy YOUNG LAB BLOOD ORDERABLES Final Resul t [facility] * (ABNORMAL) IGP,APTIMA HPV,AGE GDLN (07/06/2024 8:54 AM EDT) AGE GDLN ACOG TESTING Note . [facility] Comment: TESTS RESULT FLAG UNITS REF RANGE LAB Clinician Provided Cytology Information Source.............Cervix Other.............. No. of containers..01 ThinPrep Vial Age Algo ACOG Charley... 30-65 01 FLAG LEGEND: L-Low Normal,H-High Normal,LL-Alert Low,HH-Alert High <-Panic Low,>-Panic High,A-Abnormal,AA-Critical Abnormal Performed at: 01 =G [facility] [address] [place] [address] Patricia Houser MD, IGP, APTIMA HPV, RFX 16/18,45 Note(A) . [facility] Comment: TESTS RESULT FLAG UNITS REF RANGE LAB DIAGNOSIS: [A] 02 EPITHELIAL CELL ABNORMALITY. LOW GRADE SQUAMOUS INTRAEPITHELIAL LESION (LSIL). Specimen adequacy: 02 Satisfactory for evaluation. Endocervical and/or squamous metaplastic cells (endocervical component) are present. Performed by: 03 Kelly Grant, Senior Electronics Technician (ASCP) Electronically si... 02 Opal Ford MD, Pathologist . 02 Pathologist [...] <-Panic Low,>-Panic High,A-Abnormal,AA-Critical Abnormal Performed at: [address] [phone] Patricia Houser MD, [address] [facility] [address] [place] [phone] Don Hawthorne MD, HPV APTIMA Negative Negative [facility] Comment: This nucleic acid amplification test detects fourteen high- risk HPV types (16,18,31,33,35,39,45,51,52,56,58,59,66,68) without differentiation. Performed at: = - [facility] [id number] Alliance Director: Patricia Houser MD, Phone: [phone] Performed at: [address] [id number] Alliance Director: Patricia Houser MD, Phone: [phone] 07/06/2024 8:54 AM EDT 07/06/2024 12:15 PM EDT Narrative CLINISYNC - 07/11/2024 4:09 PM EDT SPATULA-ALONE CERVIX us Jocy YOUNG LAB BLOOD ORDERABLES Final Resul t Performing Organization Address [facility]/ZIP Co de Phone Number CL[facility]YNC TB * Pap Smear (07/06/2024 12:00 AM EDT) Swab Cervical swab / Unknown us [facility] Jose Paez Nurse LAB CYTOLOGY ORDERABLES Final Result EXTERNAL LAB * US OB CERVICAL LENGTH (07/05/2024 8:10 AM EDT) Anatomical Region Laterality Modality Other 07/05/2024 8:10 AM EDT Narrative 07/05/2024 8:13 [place] [address] Ultrasound Report Signed Patient: MICHI SERRANO MR#: [id number] : 1995 Acct:[id number] Age/Sex: 28 / F ADM Date: 07/05/24 Loc: US Attending Dr: Magan Paez D.O. Ordering Physician: Magan Paez D.O. Date of Service: 07/05/24 Procedure(s): US OB cervical length Accession Number(s): [id number] cc: ARMEN SÁNCEHZ ; Magan Paez D.O. [place] [address] Patient Name: MICHI SERRANO MRN: [id number] date: 1995 Sex: F Assigned Patient Location: US Current Patient Location: US Accession/Order Number: [id number] Exam Date: 07/05/2024 08:08 Report Date: 07/05/2024 [...] Laura Rahman M.D.07/05/2024 8:10 AM Dictation Location: [place] [address] Electronically authenticated by: [id number] Y Date: 07/05/2024 08:10 Dictated By: Laura Rahman M.D. Signed By: 07/05/24 0813 DD/ 9 TD/TT: Wax Pattern Assembler: Procedure Note Radiology, Radiologist, - 07/05/2024 [place] [address] Ultrasound Report Signed Patient: MICHI SERRANO KMR#: [id number] : 1995Acct:[id number] Age/Sex: 28 / FADM Date: 07/05/24 Loc: US Attending Dr: Magan Paez D.O. Ordering Physician: Magan Paez D.O. Date of Service: 07/05/24 Procedure(s): US OB cervical length Accession Number(s): [id number] cc: ARMEN SÁNCHEZ ; Magan Paez D.O. [place] [address] Patient Name: MICHI SERRANO MRN: [id number] date: 1995 Sex: F Assigned Patient Location: US Current Patient Location: US Accession/Order Number: [id number] Exam Date: 07/05/2024 08:08 Report Date: 07/05/2024 [...] Laura Rahman M.D.07/05/2024 8:10 AM Dictation Location: [place] [address] Electronically authenticated by: [id number] Y Date: 508:10 Dictated By: Laura Rahman M.D. Signed By:07/05/24812 DD/ 9 TD/TT: Wax Pattern Assembler: Magan Jeannine DO [facility] IMAGING Final Result from Last 3 Months Insurance * Guarantor: Michi Serrano Account Type Relation to Patient Date of Phone Billing Address Personal/Family Self 1995 [address] [place] [address] [facility] Care Teams Stereo Map Plotter Operator Relationship Specialty Start Date End Date Armen Sánchez MD [address] [place] [address] PCP - General Family Medicine 05/05/24 Emi Bronson [facility] [address] [place] [address] Behavioral Health 04/12/24
--- OUTSIDE RECORDS SUMMARY | 2024-09-21 14:02 | XMS_ITS | Encounter Summary ---
Author Organization [facility] Your [facility] s tem Address [id number] [address] [place] [address] Care Team Providers Care Anthropologist Name Role Phone PrincessArmen Cedric [place] Primary Care Provider [phone] Encounter Details Date Type Department Care Team (Late st Contact Info) Description 08/26/2023 Orders Only [facility] Internal Medicine - Family Medicine [address] [place] [address] Scotty Mahoney DO [address] [place] [address] Rectal bleeding (Primary Dx) Social History Tobacco Use Types Packs/Day Years Used Date Smoking Tobacco: Every Day Cigarettes 1 13.1 Started: 08/01/2011 Smokeless Tobacco: Never Alcohol Use Standard Drinks/Week Comments Not Currently 0 (1 standard drink = 0.6 oz pur e alcohol) [facility] Utilities Answer Date Recorded In the past 12 months has [employer], gas, oil, or water [employer] threatened to shut off services in your [...] week 08/25/2023 How often do you attend [facility] or confucianist services? Never 08/25/2023 Do you belong to any clubs o r organizations such as gnosticism groups, unions, fraternal or athletic groups, or [...] Answer Date Recorded Total Score 6 08/25/2023 [facility] - Occupational [...] Info) Description 09/29/2024 3:00 PM EDT Appointment [facility] Imaging [address] [place] [id number] Suresh Valencia MD [address] [place] [address] documented as of this encounter Visit Diagnoses Diagnosis Rectal bleeding- Primary Hemorrhage of rectum and anus documented in this encounter Additional Health Concerns Assessment Noted Time PHQ-9 Depression Total Score: 6 08/25/19 24 9:30 AM EDT A Body Mass Index follow-up plan has been documented for the patient 08/10/2023 10:14 AM EDT documented as of this encounter Care Teams Anthropologist Relationship Specialty Start Date End Date Armen Sánchez DO [address] [facility] [place] [place] [address] PCP - General Family Medicine 08/25/23 documented as of this encounter
--- OUTSIDE RECORDS SUMMARY | 2024-09-21 14:02 | XMS_ITS | Encounter Summary ---
Author Organization [facility] tem Address [id number] [address] [place] [address] Care Team Providers [employer] Sales Consultant Name Role Phone Princess Aremn Steele DO Primary Care Provider Encounter Details Date Type Department Care Team (Late st Contact Info) Description 06/16/2024 Orders Only Maternal- Medicine at [facility] [address] [place] [address] Curtis Paez, DO [address] [facility] [address] [place] [address] Social History Tobacco Use Types Packs/Day Years Used Date Smoking Tobacco: Every Day Cigarettes 1 13.1 Started: 08/01/2011 Smokeless Tobacco: Never Alcohol Use Standard Drinks/Week Comments Not Currently 0 (1 standard drink = 0.6 oz pur e alcohol) [facility] Utilities Answer Date Recorded In the past 12 months has [employer], gas, oil, or water [employer] threatened to shut off services in your home? No 08/25/2023 Social Connection and Isolation Panel [NHANES] A nswer Date Recorded In a typical week, how many times do you talk on the phone with family, friends, or neighbors? Three times a week 01/27/2024 How often do you get togethe r with friends or relatives? Once a week 01/27/2024 How often do you attend [facility] or jain services? Never 01/27/2024 Do you belong to any clubs o r organizations such as yarsanism groups, unions, fraternal or athletic groups, or [...] Answer Date Recorded Total Score 0 10/27/2023 [facility] - Occupational [...] Description 09/29/2024 3:00 PM EDT Appointment [facility] US Imaging [address] [place] [address] Suresh Valencia MD [address], [address] [place] [address] documented as of this encounter Procedures Procedure Name Priority Date/Time Associated Diagnosis Comments UNLISTED LAB TEST Routine 06/08/2024 1:25 PM EST UNLISTED LAB TEST Routine 05/23/2024 1:26 PM EST documented in this encounter Results * Unlisted Lab Test (06/08/2024 1:25 PM EST) us Curtis R Jeannine DO LAB BLOOD ORDERABLES Final Resu lt Performing Organization Address City/[facility]/ZIP Co de Phone Number MANUALLY TRANSCRIBED [...] documented as of this encounter Care Teams [employer] Sales Consultant Relationship Specialty Start Date End Date Armen Sánchez DO [address] [place] [address] PCP - General Family Medicine 08/25/23 documented as of this encounter
--- OUTSIDE RECORDS SUMMARY | 2024-09-21 14:02 | XMS_ITS | Encounter Summary ---
Demographics Address [address] [place] [address] Home Phone Work Phone Mobile Phone Email Address Preferred Language Slovenian Marital Status Single Adventist Affiliation Unknown Race White Ethnic Group Not or Lati no Author Organization [facility] Address [address] [place] [address] Care Team Providers Care Mobility Engineer Name Role Phone Armen Sánchez DO Primary [...] on filedocumented in this encounter Care Teams Mobility Engineer Relationship Specialty Start Date End Date Armen Sánchez DO [address] [place] [address] PCP - General Family Medicine 04/27/24 documented as of this encounter
--- OUTSIDE RECORDS SUMMARY | 2024-09-21 14:02 | XMS_ITS | Clinical Summary ---
Demographics Address [address] [place] [address] Home Phone Work Phone Mobile Phone Email Address Preferred Language Slovak Marital Status Single Baptism Affiliation Unknown Race White Ethnic Group Not or Lati no Author Organization [facility] Address [address] [place] [address] Care Team Providers Care Weaving Professor Name Role Phone Armen Sánchez Primary Care Provider [phone] Allergies Active Allergy Reactions Criticality Noted Date Comments Penicillins 08/16/2018 Medications azithromycin (ZITHROMAX) 250 MG tablet 08/15/2018 Active NUVARING 0.12-0.015 MG/24HR vaginal ring 3 08/09/2018 Active polyethylene glycol (GLYCOLAX) 17 GM/SCOOP powder 17 g daily as directed until stools are soft and then as needed 510 g 5 04/27/2024 Active Active Problems Problem Noted Date Diagnosed Date Blunt trauma to abdomen, initial encounter 09/10 Vitamin D deficiency 08/16/2018 Assessment & Plan (08/16/2018 4:03 PM EDT): Labs today Need for prophylactic vaccin ation against hiidetivcl-phgwifp-lwwmefkpr (DTP) 08/16/2018 Assessment & Plan (08/16/2018 4:03 PM EDT): tdap today Comments Yes Resolved Problems Problem Noted Date Diagnosed Date Resolved Date Sore throat 08/16/2018 09/15/2018 Assessment & Plan (08/16/2018 4:03 PM EDT): Continue zpack, add small steroid burst, rest/fluids/tylenol F/u in next few days if not improving, sooner if worse. Screening for HIV (human imm unodeficiency virus) 08/16/2018 09/15/2018 Assessment & Plan (08/16/2018 4:03 PM EDT): Labs today Encounters Date Type Department Care Team Description 09/10/2024 9:51 PM EDT - 09/11/2024 12:42 AM EDT Hospital Encounter [facility] [address] [place] [address] Victorino Christie, Discharge Disposition: Home or Self Care 09/10/2024 Travel from Last 3 Months Immunizations Immunization Administration Dates Next Due TDaP, ADACEL (age 10y-64y), BOOSTRIX (age 10y+), IM, 0.5mL 08/16/2018 Family History Medical History Relation Name Comments Bipolar Disorder Father Schizophrenia Father No Known Problems Maternal Grandfather No Known Problems Maternal Grandmother No Known Problems Mother Cancer Paternal Grandfather Breast Cancer Paternal Grandmother Relation Name Status Comments Father Alive Maternal Grandfather Alive Maternal Grandmother Alive Mother Alive Paternal Grandfather Paternal Grandmother Alive Social History Tobacco Use Types Packs/Day Years Used Date Smoking Tobacco: Every Day Cigarettes 1 10 Smokeless Tobacco: Never Tobacco Cessation:Ready to Q [...] EDT Inhaled Oxygen Concentration - - Weight 77.1 kg (170 lb) 04/27/2024 5:53 PM EST Height 162.6 cm (5' 4 ) 04/27/2024 5:53 PM EST Body Mass Index 29.18 04/27/2024 5:53 PM EST Plan of Treatment Health Maintenance Due Date Last Done Comments Depression Screen 2005 Varicella vaccine (1 of 2 - 13+ 2-dose series) 2006 HIV screen 2008 Hepatitis C screen 08/01/2011 Hepatitis B vaccine (1 of 3 - 19+ 3-dose series) 2012 Pneumococcal 0-49 years Vacc ine (1 of 2 - PCV) 2012 Pap smear 2014 Cervical cancer screen 08/01/2023 HPV (without or with Pap) 08/01/2023 COVID-19 Vaccine (1 - 2023-2 5 season) 2023 Flu vaccine (Season Ended) 2024 DTaP/Tdap/Td vaccine (2 - Td or Tdap) 08/16/2028 08/16/2018 Respiratory Syncytial Virus (RSV) or age 60 yrs+ (1 - 1-dose 75+ series) 2068 HPV vaccine Aged Out No longer eligi ble based on patient's age to complete this topic Hepatitis A vaccine Aged Out No longe r eligible based on patient's age to complete this topic Hib vaccine Aged Out No longer eligi ble based on patient's age to complete this topic Meningococcal (ACWY) vaccine Aged Out No longer eligible based on patient's age to complete this topic Meningococcal B vaccine Aged Out No l onger eligible based on patient's age to complete this topic Polio vaccine Aged Out No longer elig ible based on patient's age to complete this topic Procedures Procedure Name Priority Date/Time Associated Diagnosis Comments US OB 1 OR MORE FETUS LIMITED STAT 09/10/2024 11:35 PM EDT from Last 3 Months Results * US OB 1 OR MORE [...] hemorrhage definitely seen. us Victorino Christie DO G US ORDERABLES Final Resu lt from Last 3 Months Insurance * Guarantor: Sapna Serrano Account Type Relation to Patient Date of Phone Billing Address Personal/Family Self 1995 [address] [place] [address] [employer] Care Teams Weaving Professor Relationship Specialty Start Date End Date Armen Sánchez DO [address] [place] [address] PCP - General Family Medicine 04/27/24
--- OUTSIDE RECORDS SUMMARY | 2024-09-21 14:02 | XMS_ITS | Encounter Summary ---
Author Organization [facility] tem Address [id number] [address] [place] [address] Care Team Providers Care Industrial Cleaner Name Role Phone SepidehArmen tristan Cedric [place] Primary Care Provider [phone] Encounter Details Date Type Department Care Team (Late st Contact Info) Description 09/15/2024 Telephone Maternal- Medicine at [facility] [address] [place] [phone] Miriam Joseph, RN Social History Tobacco Use Types Packs/Day Years Used Date Smoking Tobacco: Every Day Cigarettes 1 13.1 Started: 08/01/2011 Smokeless Tobacco: Never Alcohol Use Standard Drinks/Week Comments Not Currently 0 (1 standard drink = 0.6 oz pur e alcohol) [facility] Utilities Answer Date Recorded In the past 12 months has [employer], gas, oil, or water [employer] threatened to shut off services in your [...] often do you attend chur ch or christian services? Never 01/27/2024 Do you belong to any clubs o r organizations such as tenriism groups, unions, fraternal or athletic groups, or [...] Answer Date Recorded Total Score 0 10/27/2023 [facility] - Occupational [...] encounter Miscellaneous Notes * Telephone Encounter - Miriam Joseph RN - 09/15/2024 12:46 PM EDT Received call from patient with reports of recent visit to [facility] due to vaginal bleeding. Patient states ultrasound was performed and she was told she has a subchorionic hematoma. States was discharged with instruction to follow up with OB. Appointment scheduled with OB for 09/19/24. Patient inquiring if next MFM ultrasound needs to be sooner than scheduled. High [employer] Media Specialist reviewed information with Dr. Valencia. Per Dr. Valencia, yadi to keep MFM ultrasound scheduled as is and follow up with OB. Returned call to patient and LVM with above recommendations and precautions for when to return to nearest Labor and Delivery ED if indicated. documented in this encounter Plan of Treatment Upcoming Encounters Date Type Department Care Team (Late st Contact Info) Description 09/29/2024 3:00 PM EDT Appointment [facility] US Imaging [address] [place] [phone] Suresh Valencia MD [address], [address] [place] [address] documented as of this encounter Visit Diagnoses Not on filedocumented in this encounter Additional Health Concerns Assessment Noted Time PHQ-9 Depression Total Score: 0 10/27/19 10:25 AM EDT A Body Mass Index follow-up plan has been documented for the patient 08/10/2023 10:14 AM EDT documented as of this encounter Care Teams Industrial Cleaner Relationship Specialty Start Date End Date Armen Sánchez DO [address] [facility] [place] [address] PCP - General Family Medicine 08/25/23 documented as of this encounter
--- OUTSIDE RECORDS SUMMARY | 2024-09-21 14:02 | XMS_ITS | Encounter Summary ---
Author Organization [facility] Address [address] [place] [address] Care Team Providers Care Hop Farm Worker Name Role Phone Emi Bronson Arpit [facility] Unavailable + [phone] Armen Sánchez MD Primary Care Provider + [phone] Encounter Details Date Type Department Care Team (Late st Contact Info) Description 05/24/2024 Abstract [facility] OB [address] [facility] [place] [place] [address] Curtis Paez, [address] [place], [facility] Social History Tobacco Use Types Packs/Day Years [...] Description 10/03/2024 1:40 PM EDT Routine [facility] OB [address] [place] [address] Curtis Paez, [address] [place] [address] documented as of this encounter Visit Diagnoses Not on filedocumented in this encounter Care Teams Hop Farm Worker Relationship Specialty Start Date End Date Armen Sánchez MD [address] [place] [address] PCP - General Family Medicine 05/05/24 Emi Bronson, [facility] [address] [place] [address] Behavioral Health 04/12/24 documented as of this encounter
--- OUTSIDE RECORDS SUMMARY | 2024-09-21 14:02 | XMS_ITS | Encounter Summary ---
Author Organization [email or web address] [facility] tem Address [id number] [address] [place] [address] Care Team Providers Care Health Safety Manager Name Role Phone Armen Sánchez Primary Care Provider Encounter Details Date Type Department Care Team (Late st Contact Info) Description 08/17/2023 Orders Only [facility] Obstetrics[facility]Gynecology [address] [place] [id number] La Murray CMA Screening for STD (sexually [...] Info) Description 09/29/2024 3:00 PM EDT Appointment [facility] US Imaging [address] [place] [address] Suresh Valencia MD [address], [address] [place] [address] documented as of this encounter Procedures Procedure [...] documented as of this encounter Care Teams Health Safety Manager Relationship Specialty Start Date End Date Armen Sánchez DO [address] [facility] [place] [address] PCP - General Family Medicine 08/25/23 documented as of this encounter
--- OUTSIDE RECORDS SUMMARY | 2024-09-21 14:02 | XMS_ITS | Encounter Summary ---
Author Organization [employer] s tem Address [id number] [address] [place] [address] Care Team Providers Care Busperson Name Role Phone PrincessArmen Cedric [place] Primary Care Provider Encounter Details Date Type Department Care Team (Late st Contact Info) Description 08/25/2023 [facility]phone [facility] - Family Medicine [address] [place] [address] Bernadette Zhang CMA Social History Tobacco Use Types Packs/Day Years Used Date Smoking Tobacco: Every Day Cigarettes 1 13.1 Started: 08/01/2011 Smokeless Tobacco: Never Alcohol Use Standard Drinks/Week Comments Not Currently 0 (1 standard drink = 0.6 oz pur e alcohol) [facility] Utilities Answer Date Recorded In the past 12 months has [employer], gas, oil, or water company threatened [...] often do you attend chur ch or mosque services? Never 08/25/2023 Do you belong to any clubs o r organizations such as jain groups, unions, fraternal or athletic groups, or [...] Answer Date Recorded Total Score 6 08/25/2023 [facility] - [...] Recorded Do you need help finding a [facility] career center and/or a training [...] of Assessment Author 0 08/25/2023 9:53 AM EDT Armen Sánchez, * Question Answer Date of Assessment Author Q1: How often do you have a drink containing alcohol? Never 08/25/2023 9:53 AM EDT Armen Sánchez DO Q2: How many drinks containing alcohol do you have on a typical day when you are drinking? Patient does not drink 08/25/2023 9:53 AM EDT Armen Sánchez DO Q3: How often do you have six or more drinks on one occasion? Never 08/25/2023 9:53 AM EDT Armen Sánchez DO documented as of this encounter Miscellaneous [...] Info) Description 09/29/2024 3:00 PM EDT Appointment [facility] US Imaging [address] [place] [phone] Suresh Valencia MD [address], [address] [place] [address] documented as of this encounter Visit Diagnoses Not on filedocumented in this encounter Additional Health Concerns Assessment Noted Time PHQ-9 Depression Total Score: 6 08/25/19 24 9:30 AM EDT A Body Mass Index follow-up plan has been documented for the patient 08/10/2023 10:14 AM EDT documented as of this encounter Care Teams Busperson Relationship Specialty Start Date End Date Armen Sánchez DO [address] [facility] [place] [address] PCP - General Family Medicine 08/25/23 documented as of this encounter
--- OUTSIDE RECORDS SUMMARY | 2024-09-21 14:02 | XMS_ITS | Encounter Summary ---
Demographics Address [address] [place] [address] Mobile Phone Email Address Email Address Preferred Language Serbian Marital Status Single Druze Affiliation Unknown Race White Ethnic Group Not or Lati no Author Organization [employer] [facility] tem Address [id number] [address] [place] [address] Care Team Providers Care Machine Tack Puller Name Role Phone Armen Sánchez DO Primary Care Provider + [phone] Reason for Referral * Diagnostic Imaging (Routine) - Pending Review Specialty Diagnoses / Procedures Referred By Thom patel Referred To Contact Maternal and Medicine Diagnoses Cystic fibrosis carrier Abnormal genetic test during Procedures [facility] with or without consult Suresh Valencia MD [address] [facility], [address] [place] [address] Phone: tel: fax: Maternal- Medicine at [facility] [address] [place] [address] Phone: tel: fax: Referral ID Status Reason Start Date Expiration Date V isits Requested Visits Authorized [id number] Pending Review 09/07/2024 09/07/2025 1 1 Encounter Details Date Type Department Care Team (Late st Contact Info) Description 09/07/2024 Orders Only Maternal- Medicine at [facility] [address] [place] [address] Miriam Joseph, RN 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); Abnormal genetic test during Social History Tobacco Use Types Packs/Day Years Used Date Smoking Tobacco: Every Day Cigarettes 1 13.1 Started: 08/01/2011 Smokeless Tobacco: Never Alcohol Use Standard Drinks/Week Comments Not Currently 0 (1 standard drink = 0.6 oz pur e alcohol) [facility] Utilities Answer Date Recorded In the past [...] often do you attend chur ch or buddhist services? Never 01/27/2024 Do you belong to any clubs o r organizations such as adventism groups, unions, fraternal or athletic groups, or [...] Answer Date Recorded Total Score 0 10/27/2023 [facility] [place] [facility] Occupat ional Health - Occupational Stress [...] Recorded Do you need help finding a [facility] career center and/or a training [...] Info) Description 09/29/2024 3:00 PM EDT Appointment [facility] US Imaging [address] [place] [phone] Suresh Valencia MD [address], [address] [place] [address] Scheduled Orders Name Type Priority Associated Diagnoses [...] documented as of this encounter Care Teams Machine Tack Puller Relationship Specialty Start Date End Date Armen Sánchez DO [address] [facility], [facility] [address] PCP - General Family Medicine 08/25/23 documented as of this encounter
--- OUTSIDE RECORDS SUMMARY | 2024-09-21 14:02 | XMS_ITS | Encounter Summary ---
Author Organization [facility] Address [address] [place] [address] Care Team Providers Care Equipment Cleaner And Tester Name Role Phone Emi Bronson [facility] Unavailable + [phone] Armen Sánchez MD Primary Care Provider + [phone] Encounter Details Date Type Department Care Team (Late st Contact Info) Description 09/14/2023 Abstract [facility] [address] [facility] [address] [place] [phone] Nav Ames MD [address] [facility] [address] [place] [address] Social History Tobacco Use Types Packs/Day Years [...] Description 10/03/2024 1:40 PM EDT Routine [facility] OB [address] [facility] [place] [address] Curtis Paez, DO [address] [place] [address] documented as of this encounter Visit Diagnoses Not on filedocumented in this encounter Care Teams Equipment Cleaner And Tester Relationship Specialty Start Date End Date Armen Sánchez MD [address] [place] [address] PCP - General Family Medicine 05/05/24 Emi Bronson [facility] [address] [place] [address] Behavioral Health 04/12/24 documented as of this encounter
--- OUTSIDE RECORDS SUMMARY | 2024-09-21 14:02 | XMS_ITS | Clinical Summary ---
Author Organization [facility] Address [id number] [address] [place] [address] Care Team Providers Care Semiconductor Packages Tester Name Role Phone Armen Sánchez Primary Care [...] Consult: []Palliative Care Consult: []SGM: []Life Connection: [][place]: [] MRI: []Nationwide: [][facility]M: []UH: [x][facility]: If Peds are NOT ok taking care of CF baby Delivery Recommendation: [x] Term at local hospital, if Peds are ok taking care of CF baby [] Term at [facility] Surveillance Plan: [x] F/U Survey sched 08/25/[address] [facility] [] Growth q __ weeks [] [...] Encounters Date Type Department Care Team Description 09/15/2024 Telephone Maternal- Medicine at [facility] [address] [place] [address] Miriam Joseph RN 09/07/2024 10:30 AM EDT Office Visit [facility] [address] [place] [address] [address] [place] [address] Rashida Silva MD 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); Encounter for consultation 09/07/2024 Orders Only Maternal- Medicine at [facility] [address] [place] [address] Miriam Joseph RN 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); Abnormal genetic test during 09/05/2024 Travel 08/25/2024 Travel 08/18/2024 Orders Only Maternal- Medicine at [facility] [address] [place] [address] Barbra Samuel, TIMOTHY 08/18/2024 Orders Only Maternal- Medicine at [facility] [address] [place] [address] Barbra Samuel, TIMOTYH 08/17/2024 Telephone Maternal- Medicine at [facility] [address] [place] [address] Rachel Rodriguez, MUKUND 07/28/2024 1:48 PM EDT - 07/28/2024 11:59 PM EDT Hospital Encounter [facility] [address] [facility] [address] [place] [address] Discharge Disposition: Home 07/28/2024 10:00 AM EDT Office Visit Maternal- Medicine at [facility] [address] [place] [address] Suresh Burns MD 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) 07/28/2024 8:42 AM EDT - 07/28/2024 1:47 PM EDT Hospital Encounter [facility] - [facility] US Imaging [address] [place] [address] Abnormal genetic test during ; Screening, , for anatomic survey Discharge Disposition: Home 07/28/2024 Orders Only Maternal- Medicine at [facility] [address] [facility] [place] [address] Miriam Joseph, RN 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); Abnormal genetic test during 07/28/2024 Travel 07/19/2024 Orders Only [facility] Internal Medicine - Family Medicine [address] [place] [address] Ref Prov, Not In System 07/12/2024 Telephone Maternal- Medicine at [facility] [address] [place] [address] Rachel Rodriguez LGC from Last 3 Months Immunizations Immunization Administration [...] drink = 0.6 oz pur e alcohol) [facility] Utilities Answer Date Recorded In the past 12 months has [employer], gas, oil, or water [employer] threatened to shut off services in your [...] 01/27/2024 How often do you attend chur or restorationism services? Never 01/27/2024 Do you belong to any clubs o r organizations such as samaritan groups, unions, fraternal or athletic groups, or [...] 0 10/27/2023 [facility] - Occupational Stress Questionnaire Answer Date Recorded [...] Recorded Do you need help finding a [facility]lympia medical centeral career center and/or a training program? No [...] Info) Description 09/29/2024 3:00 PM EDT Appointment [facility] US Imaging [address] [place] [address] Suresh Burns MD [address], [address] [place] [address] Health Maintenance Due Date Last Done Comments Adult BMI Follow Up Plan 08/09/2024 08/10/2023 Depression Screening 10/26/2024 10/27/2023 Influenza Vaccine 12/04/2024 Tobacco Counseling 02/24/2025 08/25/2023 Adult BMI Screening 07/28/2025 07/28/2024 Tobacco Screening 07/28/2025 07/28/2024 Pap Smear 07/07/2027 07/06/2024, 0510/2023, 08/10/2023 DTaP,Tdap and Td Vaccines (2 - Td or Tdap) 08/16/2028 08/16/2018 Medical Devices Not on file Procedures Procedure Name Priority Date/Time Associated Diagnosis Comments US [facility] OB FOLLOW-UP, 1 FETUS Routine 08/25/2024 10:25 AM EDT Cystic fibrosis carrier Abnormal genetic test during US [facility]FM COMPREHENSIVE ANATOMIC SURVEY Routine 07/28/2024 11:32 AM [...] period is included. Anatomical Region Laterality Modality OB-LIFE SPECIALIST Ultrasound 08/25/2024 9:38 AM EDT Narrative 08/25/2024 5:15 PM EDT NAME: MAGGIE BORDEN : 1995 SEX: F Accession Number: [id number] ORDERING PHYSICIAN: SURESH BURNS REFERRING PHYSICIAN: MAGAN TRISTAN Coding ----- --------- Procedures 04895: Follow-up Ultrasound, per fetus Indication ----- --------- Abnormal finding on screening of mother-MOB + FOB CF carriers, Depression, Anxiety , Screening for follow-up survey History ----- --------- OB History 1. Para 0 [id number] Current ----- --------- Cell free DNA low [...] EFW (oz) 11 oz EFW by: Hadlock ([id number]) Extended Tibia 36.6 mm 23w 5d 27% Dank Physician Assistant Certified 3.8 mm CM 6.3 mm 59% Nicolaides [...] Thorax RVOT view. LVOT view. 3-vessel view. 5-wxffyf-xjtsnbi view. Bicaval view. Ductal arch view. Interventricular [...] Note Edil Bullock MD - 08/25/2024 NAME: MAGGIE BORDEN : 1995 SEX: F Accession Number: [id number] ORDERING PHYSICIAN: SURESH BURNS REFERRING PHYSICIAN: MAGAN TRISTAN Coding ----- --------- Procedures [id number]: Follow-up Ultrasound, per fetus Indication ----- --------- Abnormal finding on screening of mother-MOB + FOB CF carriers,Depression, Anxiety , Screening for follow-up survey History ----- --------- OB History 1. Para 0 [id number] Current ----- --------- Cell free DNA low [...] EFW (oz) 11 oz EFW by: Hadlock ([id number]) Extended Tibia 36.6 mm 23w 5d 27% Dank Physician Assistant Certified 3.8 mm CM 6.3 mm 59% Nicolaides [...] Thorax RVOT view. LVOT view. 3-vessel view. 1-sdwmfk-yfmfova view.Bicaval view. Ductal arch view. Interventricular septum. [...] byprimary OB provider unless otherwise specified by MFM. Results forwarded to ordering provider so they can follow up with thepatient as necessary. us Suresh Burns MD [facility] US ORDERABLES Final Resul t * Send Out Test (07/28/2024 11:05 AM EDT) Only the most recent of2 resultswithin the time period is included. Test name: KNOWN MUTATION ANALYSIS CFTR GENE 07/28/2024 1:55 PM EDT [facility] Specimen 3 MATERNAL AMNIOTIC FLUID 2 EDTA AND 1 SODIUM HEP MATERNAL 07/28/2024 1:55 PM EDT [facility] Sent to [facility] VIA haku [id number] 07/28/2024 2:18 PM EDT [facility] Comment:Corrected on 07/28 A T 1418: Previously reported as [facility] [employer] [id number] Test result See separate report. View in OnMicro[employer] or in [employer]. 08/23/2024 7:01 PM EDT [facility] MISCELLANEOUS 07/28/2024 11: 05 AM EDT 07/28/2024 1:53 PM EDT us Suresh Burns MD LAB ORDERABLES Edited Result - Final [facility] * Ultrasound pelvic with transvaginal (07/05/2024 8:08 AM EDT) Anatomical Region Laterality Modality Body, Pelvis Ultrasound us Not In System Ref Prov [facility] US ORDERABLES Final R esult * High risk HPV w/faustina (08/10/2023 4:17 AM EDT) Hpv specimen type ThinPrep [facility]pv 16 Negative Negative^N egative 08/11/2023 2:37 PM EDT [facility] Hpv 18 Negative Negative^N egative 08/11/2023 2:37 PM EDT [facility] Other high risk hpv Negative Negative^N egative 08/11/2023 2:37 PM EDT [facility] Comment: HPV types 31,33,35,39,45,52,56,58,59,66 and 68 DNA were undetectable. THINP 08/10/2023 4:17 AM EDT 08/10/2023 4:48 AM EDT us Claire Robertson MD LAB BLOOD ORDERABLES Final Res ult [facility] [address] [facility], [place] [address] [facility] [address] [place] [address] from Last 3 Months or Most Recently Relevant to Health Maintenance Insurance * Guarantor: Sapna Serrano Account Type Relation to Patient Date of Phone Billing Address Personal/Family Self 1995 [address] [place] [address] [employer] Member Subscriber Plan / Payer (Ef fective 2023-Present) Name:Sapna Serrano Relation to Subscriber:Self Name:Maggie Sapna [place] Payer ID:Not on file Type:Not on file Address: [place] [id number] Care Teams Semiconductor Packages Tester Relationship Specialty Start Date End Date Armen Sánchez DO [address] [facility] [place] [address] PCP - General Family Medicine 08/25/23
--- OUTSIDE RECORDS SUMMARY | 2024-09-21 14:02 | XMS_ITS | Encounter Summary ---
Author Organization [facility] Address [address] [place] [address] Care Team Providers Care Recruiter Account Manager Name Role Phone Emi Bronson Arpit [facility] Unavailable + [phone] Armen Sánchez MD Primary Care Provider + [phone] Encounter Details Date Type Department Care Team (Late st Contact Info) Description 05/09/2024 Abstract [facility] [address] [place] [address] Curtis Paez, [address] [place], [id number] Social History Tobacco Use Types Packs/Day Years [...] Description 10/03/2024 1:40 PM EDT Routine [facility] OB [address] [place] [address] Curtis Paez, [address] [place] [address] documented as of this encounter Visit Diagnoses Not on filedocumented in this encounter Care Teams Recruiter Account Manager Relationship Specialty Start Date End Date Armen Sánchez MD [address] [place] [address] PCP - General Family Medicine 05/05/24 Emi Bronson, [facility] [address] [place] [address] Behavioral Health 04/12/24 documented as of this encounter
--- OUTSIDE RECORDS SUMMARY | 2024-09-21 14:02 | XMS_ITS | Encounter Summary ---
Author Organization [facility] Address [address] [place] [address] Care Team Providers Care Health And Fitness Professor Name Role Phone Emi Bronson Arpit [facility] Unavailable + [phone] Armen Sánchez MD Primary Care Provider + [phone] Encounter Details Date Type Department Care Team (Late st Contact Info) Description 08/10/2023 Abstract [facility] OB [address] [place] [address] Curtis Paez DO [address] [place], [id number] Social History Tobacco Use Types Packs/Day Years [...] Routine [facility] OB [address] [place] [address] Curtis Paez DO [address] [place] [address] [place] [address] documented as of this encounter Visit Diagnoses Not on filedocumented in this encounter Care Teams Health And Fitness Professor Relationship Specialty Start Date End Date Armen Sánchez MD [address] [place] [address] PCP - General Family Medicine 05/05/24 Emi Bronson [facility] [address] [place] [address] Behavioral Health 04/12/24 documented as of this encounter
--- OUTSIDE RECORDS SUMMARY | 2024-09-21 14:02 | XMS_ITS | Encounter Summary ---
Author Organization [facility] Address [address] [place] [address] Care Team Providers Care Electrical System Specialist Name Role Phone Emi Bronson [facility] Unavailable + [phone] Armen Sánchez MD Primary Care Provider + [phone] Encounter Details Date Type Department Care Team (Late st Contact Info) Description 12/27/[address] [facility] [address] [place] [address] Emi Bronson, [facility] [address] [place] [address] Social History Tobacco Use Types Packs/Day Years [...] EDT Routine [facility] [address] [place] [address] Curtis Paez, DO [address] [facility] [place] [address] documented as of this encounter Visit Diagnoses Not on filedocumented in this encounter Care Teams Electrical System Specialist Relationship Specialty Start Date End Date Armen Sánchez MD [address] [place] [address] PCP - General Family Medicine 05/05/24 Emi Bronson [facility] [address] [place] [address] Behavioral Health 04/12/24 documented as of this encounter
--- OUTSIDE RECORDS SUMMARY | 2024-09-21 14:02 | XMS_ITS | Encounter Summary ---
Author Organization [facility] Address [address] [place] [address] Care Team Providers Care Fuel Tank Sealer And Tester Name Role Phone Emi Bronson [facility] Unavailable + [phone] Armen Sánchez MD Primary Care Provider + [phone] Encounter Details Date Type Department Care Team (Late st Contact Info) Description 07/11/2024 Orders Only [facility] OB [address] [place] [address] Mary Quinn LPN [address] [facility] [place] [id number] Social History Tobacco Use Types Packs/Day Years [...] PM EDT Routine [facility] [address] [facility] [place] [address] Curtis Paez, DO [address] [place] [address] [place] [address] documented as of this encounter Procedures Procedure [...] on filedocumented in this encounter Care Teams Fuel Tank Sealer And Tester Relationship Specialty Start Date End Date Armen Sánchez MD [address] [place] [address] PCP - General Family Medicine 05/05/24 Emi Bronson, [facility] [address] [place] [address] Behavioral Health 04/12/24 documented as of this encounter
--- OUTSIDE RECORDS SUMMARY | 2024-09-21 14:02 | XMS_ITS | Encounter Summary ---
Author Organization [facility] [employer] s tem Address [id number] [address] [place] [address] Care Team Providers Care Lead Military Analyst Name Role Phone MasoodArmen silverman Primary Care Provider Encounter Details Date Type Department Care Team (Late st Contact Info) Description 05/01/2024 Orders Only [facility] Internal Medicine - Family Medicine [address] [place] [address] Ref Prov, [place] [address] Social History Tobacco Use Types Packs/Day Years Used Date Smoking Tobacco: Every Day Cigarettes 1 13.1 Started: 08/01/2011 Smokeless Tobacco: Never Alcohol Use Standard Drinks/Week Comments Not Currently 0 (1 standard drink = 0.6 oz pur e alcohol) [facility] Utilities Answer Date Recorded In the past 12 months has [employer], gas, oil, or water company threatened to [...] often do you attend chur ch or islam services? Never 01/27/2024 Do you belong to any clubs o r organizations such as hinduism groups, unions, fraternal or athletic groups, or [...] Info) Description 09/29/2024 3:00 PM EDT Appointment [facility] US Imaging [address] [place] [address] Suresh Valencia MD [address], [address] [place] [address] documented as of this encounter Procedures Procedure [...] documented as of this encounter Care Teams Lead Military Analyst Relationship Specialty Start Date End Date Armen Sánchez DO [address] [facility], [place] [address] PCP - General Family Medicine 08/25/23 documented as of this encounter
--- OUTSIDE RECORDS SUMMARY | 2024-09-21 14:02 | XMS_ITS | Encounter Summary ---
Author Organization [facility] [employer] s tem Address [id number] [address] [place] [address] Care Team Providers Care Layout Worker Name Role Phone MasoodArmen silverman Primary Care Provider Encounter Details Date Type Department Care Team (Late st Contact Info) Description 07/19/2024 Orders Only [facility] Internal Medicine - Family Medicine [address] [place] [address] Ref Prov, [place] [address] Social History Tobacco Use Types Packs/Day Years Used Date Smoking Tobacco: Every Day Cigarettes 1 13.1 Started: 08/01/2011 Smokeless Tobacco: Never Alcohol Use Standard Drinks/Week Comments Not Currently 0 (1 standard drink = 0.6 oz pur e alcohol) [facility] Utilities Answer Date Recorded In the past 12 months has [employer], gas, oil, or water company threatened to [...] often do you attend chur ch or muslim services? Never 01/27/2024 Do you belong to any clubs o r organizations such as holiness groups, unions, fraternal or athletic groups, or [...] Answer Date Recorded Total Score 0 10/27/2023 [facility] - [...] Recorded Do you need help finding a steward health care system career center and/or a training program? No [...] Info) Description 09/29/2024 3:00 PM EDT Appointment [facility] US Imaging [address] [place] [address] Suresh Valencia MD [address], [address] [place] [address] documented as of this encounter Procedures Procedure [...] documented as of this encounter Care Teams Layout Worker Relationship Specialty Start Date End Date Armen Sánchez DO [address] [facility] [place] [address] PCP - General Family Medicine 08/25/23 documented as of this encounter
== END 2024-09-21 14:00 | disposition home or self-care (01) ==
LOC: US 13:59
PROVIDERS: PCP Family Medicine; Visit Provider Obstetrics & Gynecology
DX: O46.93 Antepartum hemorrhage, unspecified, third trimester (principal)
CPT/HCPCS: 76815; 76817

== ENCOUNTER 2024-09-22 18:04 | Outpatient (OUT) | payer OTHER, SELFPAY ==
--- OUTSIDE RECORDS SUMMARY | 2024-09-22 18:12 | XMS_ITS | CCD ---
Demographics Address [address] [place] [address] Home Phone Mobile Phone Preferred Language en Marital Status Single Orthodoxy Affiliation Unknown Race White Ethnic Group Not or Lati no Author Organization [facility] Inform ion [facility] Care Team Providers Care Helicopter Repairer Name Role Phone SHEYCLAIRE Referring Unavailable FURLONG, ARMEN Steele Referring Unavailable FURLONG, ARMEN Steele Primary Care Unavailable HAJA OSULLIVAN Admitting Unavailable HAJA OSULLIVAN Attending Unavailable NATALIIANG, ARMEN Steele Primary Care Unavailable HAJA OSULLIVAN Attending Unavailable HAJA OSULLIVAN Referring Unavailable FURLONG, ARMEN Steele Primary Care Unavailable Unavailable Primary Care Provider Unavailjob e Armen Street DO Primary Care Provider [phone] Furlong DOArmen Primary Care Provider [facility], Emi K Unavailable Armen Street MD Primary Care Provider [phone] Unavailable Primary Care Provider UnavailArmen Rodriguez MD Primary Care Provider Masoodlong Armen [place] Primary Care Provider [address] Attending Unavailable MASOODLONGARMEN Referring Unavailable FURLONG, ARMEN Steele Primary Care Unavailable MASOODLONGARMEN Attending Unavailable FURLONGARMEN Referring Unavailable FURLONG, ARMEN Steele Primary Care Unavailable MASOODLONGARMEN Attending Unavailable MASOODLONGARMEN Referring Unavailable FURLONG, ARMEN Steele Primary Care Unavailable CURTIS PAEZ Referring Unavailable FURLONG, ARMEN Steele Primary Care Unavailable FURLONG, ARMEN Steele Referring Unavailable FURLONG, ARMEN Steele Primary Care Unavailable CURTIS PAEZ R Referring Unavailable FURLONG, ARMEN Steele Primary Care Unavailable CURTIS PAEZ R Referring Unavailable FURLONG, ARMEN Steele Primary Care Unavailable LYNDSEY BURNS Attending Unavailable JEANNINE CURTIS Moreau Referring Unavailable ARMEN STRE[address] Primary Care Unavailable LYNDSEY BURNS Referring Unavailable ARMEN [address] Primary Care Unavailable RASHIDA ALVAREZ Attending Unavailable JAD, ARMEN Steele Referring Unavailable NATALIIANG, ARMEN Steele Primary Care Unavailable VICTORINO CHRISTIE Admitting Unavailable VICTORINO CHRISTIE Attending Unavailable JAD, ARMEN Steele Primary Care Unavailable GENEVIEVEZULLY Attending Unavailable MASOODNG, ARMEN Steele Primary Care Unavailable MASOODNG, ARMEN Steele Primary Care Unavailable Allergies Allergy Classification Reported Allergen(s) Allergy Type Date of Onset Reaction(s) Facility (20 sources) Penicillins; Translations: [PENICILLINS] Propensity to adverse reactions to drug (disorder) 9 Other (See Comments), Hives, Itching [facility] (20 sources) Penicillin G Drug Allergy 5 Rash [facility] Medications Current Medications Medication Drug Class(es) Dates Sig (Normalized) Sig (Original) azithromycin 250 mg oral tablet (2 sources) Macrolide Antimicrobial Start: 08-15-2018 azithromycin (ZITHROMAX) 250 MG tablet 08/15/2018 Active FLUoxetine 20 mg oral capsule (19 sources) Serotonin Reuptake Inhibitor Start: 01-27-2024 take [...] adjustment) magnesium oxide 400 mg oral tablet (17 sources) Start: 05-15-2024 End: 06-14-2024 take 1 [...] 19/iron ps,heme/folic/dha ( MV & MIN ORAL) (12 sources) take 1 tablet by mouth once in the morning PNV 19/iron ps,heme/folic/dha ( MV & MIN ORAL) Take 1 tablet by mouth in the morning. Active take 1 tablet by mouth once allison y PNV 19/iron ps,heme/folic/dha ( MV & MIN ORAL) Take 1 tablet by mouth once daily. Active polyethylene glycol 3350 84850 mg powder for oral solution (20 sources) Osmotic Laxative Start: 04-27-2024 polyethylene glycol (GLYCOLAX) 17 GM/SCOOP powder 17 g daily as directed until stools are soft and then as needed 510 g 5 04/27/2024 Active polyethylene gly col, PEG, 3350 (Glycolax) 17 GM/SCOOP powder Take 17 g by mouth 1 (one) time Active polyethylene gly col (GLYCOLAX) 17 gram packet Take 17 g by mouth in the morning. Active MV-Min-Fe Fum-FA-DHA ( 1 PO) (20 sources) MV-Min- Fe Fum-FA-DHA ( 1 PO) Take 1 each by mouth Daily Active terbinafine 250 mg oral tablet (2 sources) Allylamine Antifungal Start: 10-27-19 24 End: 01-25-20 24 take 1 tablet by mouth in the morning terbinafine (LamISIL) 250 mg tablet Take 1 tablet (250 mg total) by mouth in the morning for 90 days. 90 tablet 10/27/2023 01/25/2024 Active 24 hr venlafaxine 37.5 mg extended release oral capsule (4 sources) Serotonin and Norepinephrine Reuptake Inhibitor Start: 09-19-19 25 End: 09-19-19 26 take 1 capsule by mouth once daily venlafaxine XR (Effexor XR) 37.5 MG 24 hr capsule Indications: Anxiety, generalized Take 1 capsule (37.5 mg) by mouth Daily Do not crush or chew. 30 capsule 5 09/18/2024 09/18/2025 Active Completed/Discontinued Medications Medication Drug Class(es) Dates Sig (Normalized) Sig (Original) acetaminophen 325 mg oral tablet (1 source) Start: 04-27-2024 End: 04-27-2024 take 4000 mg by mouth every twenty-four hours 650 mg, Oral, ONCE, 1 dose, On Pina 04/27/24 at 1930, Maximum dose of acetaminophen is 4000 mg from all sources in 24 hours. 21 day ethinyl estradiol 0.355212 mg/hr / etonogestrel 0.005 mg/hr vaginal system (6 sources) Progestin, Estrogen Start: 08-10-2023 End: 09-27-2023 etonogestreL-ethiny l estradioL (NUVARING) 0.12-0.015 mg/24 hr vaginal ring Insert 1 each into the vagina every 21 days. Insert vaginally and leave in place for 3 consecutive weeks, then remove for 1 week. 1 each 11 08/10/2023 09/27/2023 Discontinued (Therapy completed) Start: 08-09-2018 [...] Problem Classification Problem Date Documented Date Episodic/Chronic Administrative/social admission (1 source) Counseling, unspecified; Translations: [Counseling, unspecified] Onset: 09-07-2024 Episodic Anxiety disorders (20 sources) Generalized anxiety disorder; Translations: [Generalized anxiety disorder] Onset: 10-25-2023 10-25-2023 Chronic Cancer of cervix (1 source) Low grade squamous intraepithelial lesion on cervical Papanicolaou smear; Translations: [Low grade squamous intraepithelial lesion on cytologic smear of cervix (LGSIL)] 08-14-2024 Episodic Contraceptive and procreative management (4 sources) Patient encounter status; Translations: [Encounter for initial prescription of vaginal ring hormonal contraceptive] 08-10-2023 Episodic Cystic fibrosis (1 source) Cystic fibrosis Onset: 07-28-2024 Inflammatory diseases of female pelvic organs (1 source) Bacterial vaginosis; Translations: [Acute vaginitis] 05-05-2024 Episodic Menstrual disorders (3 sources) Missed period; Translations: [Irregular menstruation, unspecified] 05-05-2024 Chronic Mood disorders (20 sources) Recurrent major depressive episodes, moderate ; Translations: [Major depressive disorder, recurrent, moderate] Onset: 10-25-2023 10-25-2023 Chronic Nutritional deficiencies (20 sources) Vitamin D deficiency; Translations: [Vitamin D deficiency, unspecified] Onset: 08-16-2018 09-27-2023 Chronic Other complications of (4 sources) Previous operation to cervix affecting ; Translations: [Maternal care for other abnormalities of cervix, unspecified trimester] Onset: 09-21-2024 06-08-2024 Episodic Other complications of (5 sources) Abnormal findings on screening of mother; Translations: [Abnormal chromosomal and genetic finding on screening of mother] 06-20-2024 Episodic Other complications of (2 sources) Abnormal chromosomal and genetic finding on screening of mother; Translations: [Abnormal chromosomal and genetic finding on screening of mother] Onset: 06-20-2024 Episodic Other complications of (2 sources) Anomaly of placenta; 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, unspecified, third trimester] Onset: 09-21-2024 09-21-2024 Episodic Other female genital disorders (2 sources) Vaginal discharge; Translations: [Other specified noninflammatory disorders of vagina] 07-06-2024 Episodic Other injuries and conditions due to external causes (2 sources) Blunt injury of abdomen; Translations: [Unspecified injury of abdomen, initial encounter] Onset: 09-10-2024 09-10-2024 Episodic Other injuries and conditions due to external causes (2 sources) Unspecified injury of abdomen, initial encounter; Translations: [Unspecified injury of abdomen, initial encounter] Onset: 09-10-2024 Episodic Other nutritional; endocrine; and metabolic disorders (3 sources) Obesity caused by energy imbalance; Translations: [Other obesity due to excess calories] 08-25-2023 Chronic Other nutritional; endocrine; and metabolic disorders (2 sources) Other obesity due to excess calories; Translations: [Other obesity due to excess calories] Onset: 09-27-2023 Chronic Other nutritional; endocrine; and metabolic disorders (2 sources) Body mass index (BMI) 31.0-31.9, adult; Translations: [Body mass index (BMI) 31.0-31.9, adult] Onset: 09-27-2023 Chronic Other and delivery including normal (13 sources) test positive; Translations: [Encounter for test, [...] of ] 06-08-2024 Episodic Residual codes; unclassified (1 source) Family history of development disorder; Translations: [Family history of other specified conditions] 06-20-2024 Episodic Residual codes; unclassified (1 source) Family history of Spina bifida; Translations: [Family history of other congenital malformations, deformations and chromosomal abnormalities] 06-20-2024 Episodic Residual codes; unclassified (2 sources) Gestation period, 17 weeks; Translations: [17 weeks gestation of ] 07-06-2024 Episodic Residual codes; unclassified (2 sources) Gestation period, 21 weeks; Translations: [21 weeks gestation of ] 08-01-2024 Episodic Residual codes; unclassified (2 sources) Gestation period, 25 weeks; Translations: [25 weeks gestation of ] 08-30-2024 Episodic Residual codes; unclassified (2 sources) Cystic fibrosis carrier; Translations: [Cystic fibrosis carrier] Onset: 06-16-2024 Episodic Residual codes; unclassified (2 sources) Gestation period, 27 weeks; Translations: [27 weeks gestation of ] 09-18-2024 Episodic Sexually transmitted infections (not HIV or hepatitis) (2 sources) Chlamydia trachomatis infection; Translations: [Sexually transmitted chlamydial infection of other sites] 08-01-2024 Episodic Unclassified (2 sources) PM MYCHART PREG BODY CHANGES Onset: 06-20-2024 06-20-2024 Unclassified (1 source) Weight Check Onset: 10-27-2023 Unclassified (1 source) Annual Exam Onset: 09-27-2023 Past or Other Problems Problem Classification Problem Date Documented Da te Episodic/Chronic Abdominal pain (2 sources) Finding of sensation of abdomen; Translations: [Unspecified abdominal pain] Onset: 04-27-2024 04-27-2024 Episodic Gastrointestinal hemorrhage (20 sources) Hemorrhage of anus and rectum; Translations: [Rectal hemorrhage] Onset: 08-26-2023 09-03-2023 Episodic Immunizations and screening for infectious disease (7 sources) Requires diphtheria, tetanus and pertussis vaccination; Translations: [Encounter for immunization] Onset: 08-16-2018 Resolved: 09-15-2018 08-16-2018 Episodic Mood disorders (20 sources) Mood disorders; Translations: [Depression, unspecified] Onset: 09-27-2023 Resolved: 10-27-2023 10-27-2023 Mycoses (20 sources) Onychomycosis; Translations: [Tinea unguium] Onset: 09-27-2023 10-27-2023 Episodic Other complications of (20 sources) High risk ; Translations: [Supervision of other high risk pregnancies, unspecified trimester] Onset: 06-12-2024 06-12-2024 Episodic Other nutritional; endocrine; and metabolic disorders (17 sources) Overweight; Translations: [Overweight] Onset: 01-27-2024 01-27-2024 Episodic Other nutritional; endocrine; and metabolic disorders (1 source) Overweight; Translations: [Overweight] Onset: 01-27-2024 Episodic Other skin disorders (1 source) Skin lesion; Translations: [Disorder of the skin and subcutaneous tissue, unspecified] 09-27-2023 Episodic Other upper respiratory infections (2 sources) Sore throat symptom; Translations: [Acute pharyngitis, unspecified] Onset: 08-16-2018 Resolved: 09-15-2018 09-15-2018 Episodic Residual codes; unclassified (19 sources) Carrier of cystic fibrosis gene mutation; Translations: [Cystic fibrosis carrier] Onset: 06-16-2024 06-16-2024 Episodic Superficial injury; contusion (2 sources) Contusion of right upper arm, initial encounter; Translations: [Contusion of unspecified part of upper limb] Onset: 04-27-2024 04-27-2024 Episodic Unclassified (20 sources) Onset: 08-10-2023 08-10-2023 Results Test Name Value Interpretation Reference Range Facility OB CERVICAL LENGTHon 09-03 [place] [address] Ultrasound Report Signed Patient: SAPNA SERRANO MR#: [id number] : 1995 Acct:[id number] Age/Sex: 29 / F ADM Date: 09/21/24 Loc: US Attending Dr: Curtis Paez D.O. Ordering Physician: Curtis Paez D.O. Date of Service: 09/21/24 Procedure(s): US OB cervical length Accession Number(s): [id number] cc: [address] Corey D.O. [address] [address] Patient Name: SAPNA SERRANO MRN: [id number] date: 1995 Sex: F Assigned Patient Location: US Current Patient Location: US Accession/Order Number: [id number] Exam Date: 09/21/2024 14:39 Report Date: 09/21/2024 14:40 At the request of: CURTIS PAEZ DO Procedure: US OB cervical length Cervical length ultrasound Reason for exam: Vaginal bleeding for one week. COMPARISON: Ultrasound 09/14/2024. TECHNIQUE: Transabdominal imaging of the gravid uterus was obtained. FINDINGS: Cervical length measures 4.6 cm no evidence of funneling. US/US OB cervical length IMPRESSION: Normal cervical length without evidence of funneling. Impression dictated by: Hugo Atkins Jr., D.O. 09/21/2024 2:40 PM Dictation Location[facility] Electronically authenticated by: [id number] Y Date: 09/21/2024 14:40 Dictated By: Hugo Atkins M.D. Signed By: 09/21/24 1443 DD/ 1440 TD/TT: Heel Seat Flap Stapler: [facility] Radiology, Radiologist, MD - 09/21/2024 [place] [address] Ultrasound Report Signed Patient: SAPNA SERRANO MR#: [id number] : 1995 Acct:[id number] Age/Sex: 29 / F ADM Date: 09/21/24 Loc: US Attending Dr: Curtis Paez D.O. Ordering Physician: Curtis Paez D.O. Date of Service: 09/21/24 Procedure(s): US OB cervical length Accession Number(s): [id number] cc: [address] Corey D.O. The [place] [id number] Patient Name: SAPNA SERRANO MRN: [facility]:[id number] date: 1995 Sex: F Assigned Patient Location: US Current Patient Location: US Accession/Order Number: [id number] Exam Date: 09/21/2024 14:39 Report Date: 09/21/2024 14:40 At the request of: CURTIS JEANNINE DO Procedure: US OB cervical length Cervical length ultrasound Reason for exam: Vaginal bleeding for one week. COMPARISON: Ultrasound 09/14/2024. TECHNIQUE: Transabdominal imaging of the gravid uterus was obtained. FINDINGS: Cervical length measures 4.6 cm no evidence of funneling. US/US OB cervical length IMPRESSION: Normal cervical length without evidence of funneling. Impression dictated by: Hugo Atkins Jr., D.O. 09/21/2024 2:40 PM Dictation Location: [employer] Electronically authenticated by: [id number] Y Date: 09/21/2024 14:40 Dictated By: Hugo Atkins M.D. Signed By: 09/21/24 144 DD/ 144 TD/TT: Heel Seat Flap Stapler: [facility] Radiology Study observation (narrative) [facility] US OB CERVICAL LENGTHOrdered By: Radiologist Radiology on 09-21-2024 [facility] [employer] Work Phone: US OB PLACENTAon 09-21-2024 [place] [address] Ultrasound Report Signed Patient: SAPNA SERRANO MR#: [id number] : 1995 Acct:[id number] Age/Sex: 29 / F ADM Date: 09/21/24 Loc: US Attending Dr: Curtis Peaz D.O. Ordering Physician: Curtis Paez D.O. Date of Service: 09/21/24 Procedure(s): US OB placenta Accession Number(s): [id number] cc: [address] Corey D.O. [place] [address] Patient Name: SAPNA SERRANO MRN: [id number] date: 1995 Sex: F Assigned Patient Location: Current Patient Location: US Accession/Order Number: [id number] Exam Date: 09/21/2024 14:41 Report Date: 09/21/2024 14:53 At the request of: CURTIS PAEZ DO Procedure: US OB placenta Placenta ultrasound. Reason for exam: Bleeding in after trauma. COMPARISON: Ultrasound 09/14/2024. TECHNIQUE: Transabdominal imaging of the gravid uterus was obtained. FINDINGS: Once again demonstrated is a hypoechoic region along the placenta measuring 6.6 x 1.6 x 2.1 cm. This was measured 3.9 x 2.9 x 1.7 cm. heart rate 162 bpm. NAYE is subjectively normal. US/US OB placenta IMPRESSION: Hypoechoic area is once again seen along the placenta measuring 6.6 x 1.6 x 2.1 cm which has progressed in size since the 09/14/2024 study. Given the history of trauma, placental abruption cannot BE excluded. Continued follow-up is recommended. Impression dictated by: Hugo Atkins Jr., D.O. 09/21/2024 2:53 PM Dictation Location: [place] [address] Electronically authenticated by: [id number] Y Date: 09/21/2024 14:53 Dictated By: Hugo Atkins M.D. Signed By: 09/21/24 1456 DD/ 1453 TD/TT: Heel Seat Flap Stapler: [facility] Radiology, Radiologist, MD - 09/21/2024 [place] [address] Ultrasound Report Signed Patient: SAPNA SERRANO MR#: [id number] : 1995 Acct:[id number] Age/Sex: 29 / F ADM Date: 09/21/24 Loc: US Attending Dr: Curtis Paez D.O. Ordering Physician: Curtis Paez D.O. Date of Service: 09/21/24 Procedure(s): US OB placenta Accession Number(s): [id number] cc: [address] ; Curtis Paez D.O. The [address] [address] Patient Name: SAPNA SERRANO MRN: [facility]:[id number] date: 1995 Sex: F Assigned Patient Location: US Current Patient Location: US Accession/Order Number: [id number] Exam Date: 09/21/2024 14:41 Report Date: 09/21/2024 14:53 At the request of: CURTIS PAEZ DO Procedure: US OB placenta Placenta ultrasound. Reason for exam: Bleeding in after trauma. COMPARISON: Ultrasound 09/14/2024. TECHNIQUE: Transabdominal imaging of the gravid uterus was obtained. FINDINGS: Once again demonstrated is a hypoechoic region along the placenta measuring 6.6 x 1.6 x 2.1 cm. This was measured 3.9 x 2.9 x 1.7 cm. heart rate 162 bpm. NAYE is subjectively normal. US/US OB placenta IMPRESSION: Hypoechoic area is once again seen along the placenta measuring 6.6 x 1.6 x 2.1 cm which has progressed in size since the 09/14/2024 study. Given the history of trauma, placental abruption cannot BE excluded. Continued follow-up is recommended. Impression dictated by: Hugo Atkins Jr., D.O. 09/21/2024 2:53 PM Dictation Location: [place] [address] Electronically authenticated by: [id number] Y Date: 09/21/2024 14:53 Dictated By: Hugo Atkins M.D. Signed By: 09/21/24 1456 DD/ 1453 TD/TT: Heel Seat Flap Stapler: [facility] Radiology Study observation (narrative) [facility] OB PLACENTAOrdered By: Ra recio Radiology on 09-21-2024 [facility] [employer] Work Phone: US OB 1 OR MORE FETUS LIMITE Don 09-11-2024 US OB 1 OR MORE FETUS LIMITED EXAMINATION: TRIMESTER OBSTETRIC ULTRASOUND 09/10/2024 TECHNIQUE: ULTRASOUND [...] 2. Anterior placenta. No hemorrhage definitely seen. Interpreted by: Eldon Maldonado MD Signed by: Eldon Maldonado MD 09/11/24 Final result Normal [facility] ALL CBC WITH AUTO DIFFon BASOPHILS ABSOLUTE AUTO 0.1 [facility] Basophils/100 WBC (Bld) 0.7 % 0.2 - 2.0 % [facility] Eosinophils/100 WBC (Bld) 1.8 % 0.9 - 7.0 % [facility] Erythrocyte distribution width (RBC) [Ratio] 13.7 % 11.0 - 15.0 % [facility] Hematocrit (Bld) [Volume fraction] 38.8 % 36.0 - 48.0 % [facility] Hemoglobin (Bld) [Mass/Vol] 13 g/dL 12.0 - 16.0 g/dL [facility] IMMATURE GRANULOCYTES ABS AUTO 0.06 High [facility] Immature granulocytes/100 WBC (Bld) 0.5 % 0.0 - 0.5 % [facility] Interpretation and review of laboratory results Abnormal [facility] LYMPHOCYTES ABSOLUTE AUTO 2.1 [facility] Lymphocytes/100 WBC (Bld) 17.6 % Low 20.5 - 60.0 % [facility] MCH (RBC) [Entitic mass] 30.1 pg 26.7 - 34.0 pg [facility] MCHC (RBC) [Mass/Vol] 33.5 g/dL 29.9 - 35.2 g/dL [facility] MCV (RBC) [Entitic vol] 89.8 fL 81.0 - 99.0 fL [facility] MONOCYTES ABSOLUTE AUTO 0.7 [facility] Monocytes/100 WBC (Bld) 6 % 1.7 - 12.0 % [facility] NEUTROPHILS ABSOLUTE AUTO 8.6 High [facility] Neutrophils/100 WBC (Bld) 73.4 % 43.0 - 75.0 % [facility] Platelet mean volume (Bld) [Entitic vol] 9.6 fL 9.5 - 13.5 fL [facility] EO # 0.2 [facility] PLT 272 [facility] RBC 4.32 [facility] WBC 11.8 High [facility] Colposcopyon 08-14-2024 Curtis Paez DO 08/15/2024 6:19 AM Colposcopy Date/Time: 08/14/2024 2:19 PM Performed by: Curtis Paez DO Authorized by: Curtis Paez DO Consent: Consent obtained: Written Consent [...] paperwork completed: yes Educational handouts given: no [facility]on 07-28-2024 SENT TO [facility] VIA [employer] [phone] [facility] Comment on above: Result Comment: Miki ected on 07/28 AT 1418: Previously reported as [facility] [employer] [id number] SENT TO [facility] VIA [employer] [phone] [facility] Comment on above: Result Comment: Miki ected on 07/28 AT 1418: Previously reported as [facility] VIA [employer] [phone] SPECIMEN 3 MATERNAL AMNIOTIC FLUID 2 EDTA AND 1 SODIUM HEP MATERNAL Normal [facility] TEST NAME: KNOWN MUTATION ANALYSIS CFTR GENE Normal [facility] TEST NAME: MATERNAL CELL CONTAMINATION Normal [facility] TEST RESULT See separate report. View in OnBase or in Innov[employer]. Normal [facility] AFP, SERUM, OPEN SPINA BIFID Aon 07-08-2024 AFP MOM 0.85 . [facility] AFP VALUE 28.4 ng/mL . [facility] COMMENT: Comment . [facility]Add[facility]lex e Comment on above: Joan Shetty , Ph.D., [facility] Director References: Available Upon Request. Multiples Of Median Cutoffs For AFP Elevations [place] 2.5 Black 2.8 IDD 2.0 Twins 4.5 Abbreviation Definitions IDD - Insulin Dep Diabetes OSBR - Open Spina Bifida Risk For further inquiries contact [facility] at [phone]. This test was developed and its performance characteristics determined by [employer]. It has not been cleared or approved by the Food and Drug Administration. Performed at: [facility] [address] [place], [place] [id number] Brim Pouncer Machine Operator: Sonja Esposito Formerly [facility], Phone: [phone] GEST. AGE ON COLLECTION DATE 17.1 . weeks [facility] GESTAT. AGE BASED ON LMP . [facility] Comment on above: Recalculations are n ot recommended when gestational dating by LMP and ultrasound are within 10 days. INSULIN DEP DIABETES No . [facility] INTERPRETATION Comment . [facility] Comment on above: Interpretation: Scre en Negative This result is screen negative for [...] Customer Services to discuss available options. The [employer] recommends amniocentesis be offered to women age 35 and older. [age] [facility] MULTIPLE GESTATION No . [facility] H [facility] [address] [place] [phone] . [facility] wong RACE . [facility] Health[facility] e RESULTS Report . [facility] TEST RESULTS: Negative . [facility] WEIGHT 186 . lbs [facility] N N LMP [id number] 1 17 N 1 Y 186 N N N N N White/ [facility] e RECURRENT VAGINITIS (HTRX)on 07-07-2024 ATOPOBIUM VAGINAE 0 [facility] ATOPOBIUM VAGINAE Not detected [facility] BVAB 2,3 (BACTERIAL VAGINOSIS ASSOCIATED BACTERIA 2, 3); MOBILUNCUS SPP 0 [facility] BVAB 2,3 (BACTERIAL VAGINOSIS ASSOCIATED BACTERIA 2, 3); MOBILUNCUS SPP Not detected [facility] ILIANA ALBICANS, PARAPSILOSIS, TROPICALIS 0 [facility] ILIANA ALBICANS, PARAPSILOSIS, TROPICALIS Not detected [facility] ILIANA GLABRATA 0 [facility] Hea lthcare ILIANA GLABRATA Not detected [facility] H ealthcare [place] KRUSEI 0 [facility] Healt hcare IL[place] KRUSEI Not [facility] CHLAMYDIA TRACHOMATIS 22.157 Abnormal [facility] CHLAMYDIA TRACHOMATIS Detected Abnormal [facility] Healthcare ERMB, C; MEFA 26.913 Abnormal [facility] ERMB, C; MEFA Detected Abnormal [facility] GARDNERELLA VAGINALIS 0 [facility] GARDNERELLA VAGINALIS Not detected [facility] Interpretation and review of laboratory results Abnormal [facility] MEGASPHAERA (TYPES 1, 2) 0 [facility] MEGASPHAERA (TYPES 1, 2) Not detected [facility] MYCOPLASMA GENITALIUM 0 [facility] MYCOPLASMA GENITALIUM Not detected [facility] NEISSERIA GONORRHOEAE 0 [facility] NEISSERIA GONORRHOEAE Not detected [facility] TET B, TET M 23.614 Abnormal [facility] Healthc are TET B, TET M Detected Abnormal [facility] Healthc are TRICHOMONAS VAGINALIS 0 [facility] TRICHOMONAS VAGINALIS Not detected [facility]inalysis macro (dipstick) panel (U)on 07-06-2024 Bilirubin, UA Negative Negative - 4(70) +++ mg/dL [facility] Blood, UA Negative Negative - 50 Koby/mcL [facility] Clarity, UA Clear [facility] re Color, UA Yellow [facility] Healthcar e Glucose, UA Negative Negative - 1999(110) ++++ mg/dL [facility] Interpretation and review of laboratory results Abnormal [facility] Ketones, UA Positive Negative - 160(16) ++++ mg/dL [facility] Comment on above: trace Leukocytes, UA Trace Negative - 500+++ Danny/mcL [facility] Nitrite, UA Negative Negative - Positive [facility] pH, UA 6 5 - 9 [facility] Healthcar e Protein, UA Trace Negative - 1999(20) ++++ mg/dL [facility] Spec Grav, UA 1.03 1 - 1.03 [facility] Urobilinogen, UA 0.2 0.2 - 12 mg/dL [facility] US OB CERVICAL LENGTHon 04- The [address] [address] Ultrasound Report Signed Patient: SAPNA SERRANO MR#: [id number] : 1995 Acct:[id number] Age/Sex: 28 / F ADM Date: 07/05/24 Loc: US Attending Dr: Curtis Paez D.O. Ordering Physician: Curtis Paez D.O. Date of Service: 07/05/24 Procedure(s): US OB cervical length Accession Number(s): [id number] cc: [address] ; Curtis Paez D.O. The [place] [address] Patient Name: SAPNA SERRANO MRN: [facility]:[id number] date: 1995 Sex: F Assigned Patient Location: US Current Patient Location: US Accession/Order Number: [id number] Exam Date: 07/05/2024 08:08 Report Date: 07/05/2024 08:10 At the request of: CURTIS PAEZ DO Procedure: US OB cervical length [...] Laura Rahman M.D.07/05/2024 8:10 AM Dictation Location: [place] [address] Electronically authenticated by: [id number] Y Date: 07/05/2024 08:10 Dictated By: Laura Rahman M.D. Signed By: 07/05/24812 DD/ 9 TD/TT: Heel Seat Flap Stapler: [facility] Radiology, Radiologist, - 07/05/2024 [place] [address] Ultrasound Report Signed Patient: SAPNA SERRANO MR#: [id number] : 1995 Acct:[id number] Age/Sex: 28 / F ADM Date: 07/05/24 Loc: US Attending Dr: Curtis Paez D.O. Ordering Physician: Curtis Paez D.O. Date of Service: 07/05/24 Procedure(s): US OB cervical length Accession Number(s): [id number] cc: [address] ; Curtis Paez D.O. [place] [address] Patient Name: SAPNA SERRANO MRN: [id number] date: 1995 Sex: F Assigned Patient Location: US Current Patient Location: US Accession/Order Number: [id number] Exam Date: 07/05/2024 08:08 Report Date: 07/05/2024 08:10 At the request of: CURTIS PAEZ DO Procedure: US OB cervical length [...] Laura Rahman M.D.07/05/2024 8:10 AM Dictation Location: [place] [address] Electronically authenticated by: [id number] Y Date: 07/05/2024 08:10 Dictated By: Laura Rahman M.D. Signed By: 07/05/24812 DD/ 9 TD/TT: Heel Seat Flap Stapler: [facility] Radiology Study observation (narrative) [facility] US OB CERVICAL LENGTHOrdered By: Radiologist Radiology on 07-05-2024 [facility] [employer] Work Phone: Urinalysis macro (dipstick) panel (U)on 06-08-2024 Bilirubin, UA Negative Negative - 4(70) +++ mg/dL [facility] Blood, UA Negative Negative - 50 Koby/mcL [facility] Clarity, UA Clear [facility] re Color, UA Yellow [facility] Healthcar e Glucose, UA Negative Negative - 1999(110) ++++ mg/dL [facility] Interpretation and review of laboratory results Normal [facility] Ketones, UA Negative Negative - 160(16) ++++ mg/dL [facility] Leukocytes, UA Negative Negative - 500+++ Danny/mcL [facility] Nitrite, UA Negative Negative - Positive [facility] pH, UA 6 5 - 9 [facility] e Protein, UA Negative Negative - 1999(20) ++++ mg/dL [facility] Spec Grav, UA 1.02 1 - 1.03 [facility] Urobilinogen, UA 0.2 0.2 - 12 mg/dL [facility] Healthcar e ALL CBC WITH AUTO DIFFon BASOPHILS ABSOLUTE AUTO 0.1 [facility] Basophils/100 WBC (Bld) 0.6 % 0.2 - 2.0 % [facility] Eosinophils/100 WBC (Bld) 1.7 % 0.9 - 7.0 % [facility] Erythrocyte distribution width (RBC) [Ratio] 13.2 % 11.0 - 15.0 % [facility] Hematocrit (Bld) [Volume fraction] 41.1 % 36.0 - 48.0 % [facility] Hemoglobin (Bld) [Mass/Vol] 13.5 g/dL 12.0 - 16.0 g/dL [facility] IMMATURE GRANULOCYTES ABS AUTO 0.05 High [facility] Immature granulocytes/100 WBC (Bld) 0.5 % 0.0 - 0.5 % [facility] Interpretation and review of laboratory results Abnormal [facility] LYMPHOCYTES ABSOLUTE AUTO 1.9 [facility] Lymphocytes/100 WBC (Bld) 17 % Low 20.5 - 60.0 % [facility] MCH (RBC) [Entitic mass] 29.6 pg 26.7 - 34.0 pg [facility] MCHC (RBC) [Mass/Vol] 32.8 g/dL 29.9 - 35.2 g/dL [facility] MCV (RBC) [Entitic vol] 90.1 fL 81.0 - 99.0 fL [facility] MONOCYTES ABSOLUTE AUTO 0.8 [facility] Monocytes/100 WBC (Bld) 7 % 1.7 - 12.0 % [facility] NEUTROPHILS ABSOLUTE AUTO 8.1 High [facility] Neutrophils/100 WBC (Bld) 73.2 % 43.0 - 75.0 % [facility] Platelet mean volume (Bld) [Entitic vol] 9.6 fL 9.5 - 13.5 fL [facility] Healthc are TBH EO # 0.2 [facility] TBH PLT 312 [facility] TB RBC 4.56 [facility] TB WBC 11.1 High [facility] Healthcar e [facility] Health[facility] e BOX TESTon 05-17-2024 BOX TEST SENT OUT [facility]thcare BOX1 [facility] Healthcar e BOX2 05/17/24 [facility] BOX [facility] Healthcar e HCG ( test) Ql (U)o n 05-05-2024 Interpretation and review of laboratory results Abnormal [facility] Preg Test, Ur Positive Negative [facility] Urinalysis macro (dipstick) panel (U)on 05-05-2024 Bilirubin, UA Negative Negative - 4(70) +++ mg/dL [facility] Blood, UA Negative Negative - 50 Koby/mcL [facility] Clarity, UA Clear [facility] re Color, UA Yellow [facility] Glucose, UA Negative Negative - 1999(110) ++++ mg/dL [facility] Interpretation and review of laboratory results Abnormal [facility] Ketones, UA Negative Negative - 160(16) ++++ mg/dL [facility] Leukocytes, UA Negative Negative - 500+++ Danny/mcL [facility] Nitrite, UA Negative Negative - Positive [facility] pH, UA 7 5 - 9 [facility] Protein, UA Positive Negative - 1999(20) ++++ mg/dL [facility] Comment on above: 30 Spec Grav, UA 1.02 1 - 1.03 [facility] Urobilinogen, UA 0.2 0.2 - 12 mg/dL [facility] Basic Metabolic Panelon 04-06 Anion gap [Moles/Vol] 12 mmol/L 9 - 16 mmol/L [facility] Calcium [Mass/Vol] 9.1 mg/dL 8.6 - 10. 4 mg/dL [facility] Chloride [Moles/Vol] 102 mmol/L 98 - 10 7 mmol/L [facility] CO2 [Moles/Vol] 23 mmol/L 20 - 31 mmol/L [facility] Creatinine [Mass/Vol] 0.5 mg/dL 0.50 - 0.90 mg/dL [facility] Est, Tom Hogan Rate - PINF [facility] S [facility] Comment on above: These results are not [...] 66 mg/dL Low 74 - 99 mg/dL [facility] Interpretation and review of laboratory results Abnormal [facility] Potassium [Moles/Vol] 3.8 mmol/L 3.7 - 5.3 mmol/L [facility] Sodium [Moles/Vol] 137 mmol/L 136 - 145 mmol/L [facility] Urea nitrogen [Mass/Vol] 9 mg/dL 6 - 20 mg/dL [facility] Urea nitrogen/Creatinine [Mass ratio] 18 mg/mg 9 - 20 [facility] Basic Metabolic Profon 04-27 Anion gap [Moles/Vol] 12 mmol/L Normal - [facility] Comment on above: Performed By: #### B JACQUELIN, CDP #### [facility] [address] [place] [address] Brim Pouncer Machine Operator: Gal Katz MD BUN/CRE Ratio 18 Normal - [facility] Comment on above: Performed By: #### B JACQUELIN, CDP #### [facility] [address] [place] [address] Brim Pouncer Machine Operator: Gal Katz MD Calcium [Mass/Vol] 9.1 mg/dL Normal 8.6-10.4 [facility] Comment on above: Performed By: #### B JACQUELIN, CDP #### [facility] [address] [place] [address] Brim Pouncer Machine Operator: Gal Katz MD Chloride [Moles/Vol] 102 mmol/L Normal 98-107 [facility] Comment on above: Performed By: #### B JACQUELIN, CDP #### [facility] [address] [place] [address] Brim Pouncer Machine Operator: Gal Katz MD CO2 [Moles/Vol] 23 mmol/L Normal 20-31 [facility] Comment on above: Performed By: #### B JACQUELIN, CDP #### [facility] [address] [place] [address] Brim Pouncer Machine Operator: Gal Katz MD Creatinine [Mass/Vol] 0.5 mg/dL Normal 0.50-0.90 [facility] Comment on above: Performed By: #### B JACQUELIN, CDP #### [facility] [address] [place] [address] Brim Pouncer Machine Operator: Gal Katz MD GFR/1.73 sq M.predicted among non-blacks MDRD (S/P/Bld) [Vol rate/Area] mL/min/{1.73_m2} Normal >60 [facility] Comment on above: Result Comment: These [...] affects renal tubular secretion. Performed By: #### B JACQUELIN, CDP #### [facility] [address] [place] [address] Brim Pouncer Machine Operator: Gal Katz MD Glucose [Mass/Vol] 66 mg/dL Low 74-99 [facility] Comment on above: Performed By: #### B JACQUELIN, CDP #### [facility] [address] [place], [place] [id number] Brim Pouncer Machine Operator: Gal Katz MD Potassium [Moles/Vol] 3.8 mmol/L Normal 3.7-5.3 [facility] Comment on above: Performed By: #### B JACQUELIN, CDP #### [facility] [address] [place], [place] [id number] Brim Pouncer Machine Operator: Gal Katz MD Sodium [Moles/Vol] 137 mmol/L Normal 136-145 [facility] Comment on above: Performed By: #### B JACQUELIN, CDP #### [facility] [address] [place] [address] Brim Pouncer Machine Operator: Gal Katz MD Urea nitrogen [Mass/Vol] 9 mg/dL Normal 6-20 [facility] Comment on above: Performed By: #### B JACQUELIN, CDP #### [facility] [address] [place], [place] [id number] Brim Pouncer Machine Operator: Gal Katz MD CBC with Auto Differentialon 04-27-2024 Basophils (Bld) [#/Vol] 0.09 10*3/uL [facility] Basophils/100 WBC (Bld) 1 % 0 - 2 % [facility] Eosinophils (Bld) [#/Vol] 0.17 10*3/uL [facility] Eosinophils/100 WBC (Bld) 2 % 1 - 4 % [facility] Erythrocyte distribution width (RBC) [Ratio] 12.7 % 11.8 - 14.4 % [facility] Hematocrit (Bld) [Volume fraction] 41.1 % 36.3 - 47.1 % [facility] Hemoglobin (Bld) [Mass/Vol] 14.0 g/dL 11.9 - 15.1 g/dL [facility] Immature granulocytes (Bld) [#/Vol] 0.04 10*3/uL [facility] Immature granulocytes/100 WBC (Bld) 0 % 0 [facility] Interpretation and review of laboratory results Abnormal [facility] Lymphocytes/100 WBC (Bld) 20 % Low 24 - 43 % [facility] Lymphocytes/100 WBC (Bld) 2.31 % [facility] MCH (RBC) [Entitic mass] 30.1 pg 25.2 - 33.5 pg [facility] MCHC (RBC) [Mass/Vol] 34.1 g/dL 28.4 - 34.8 g/dL [facility] MCV (RBC) [Entitic vol] 88.4 fL 82.6 - 102.9 fL [facility] Monocytes/100 WBC (Bld) 8 % 3 - 12 % [facility] Monocytes/100 WBC (Bld) 0.90 % [facility] Neutrophils/100 WBC (Bld) 69 % High 36 - 65 % [facility] Nucleated RBC/100 WBC (Bld) [Ratio] 0.0 % 0.0 per 100 WBC [facility] Platelet mean volume (Bld) [Entitic vol] 9.4 fL 8.1 - 13.5 fL [facility] Platelets (Bld) [#/Vol] 327 10*3/uL [facility] RBC (Bld) [#/Vol] 4.65 10*6/uL 3.95 - 5.1 1 m/uL [facility] Segmented neutrophils/100 WBC (Bld) 8.09 % [facility] WBC other (Bld) [#/Vol] 11.6 High [facility] CBC with Diffon 04-27-2024 Abs. Basophil 0.09 k/uL Normal 0.00-0.20 [facility] Comment on above: Performed By: #### B JACQUELIN, CDP #### [facility] [address] [place] [address] Brim Pouncer Machine Operator: Gal Katz MD Abs.Imm.Granulocyte 0.04 k/uL Normal 0.00-0.30 [facility] Comment on above: Performed By: #### B JACQUELIN, CDP #### [facility] [address] [place] [address] [place], [place] [id number] Brim Pouncer Machine Operator: Gal Katz MD Abs.Neutrophil (Seg) 8.09 k/uL Normal 1.50-8.10 [facility] Comment on above: Performed By: #### B MP, CDP #### [address] [place], [place] [id number] Brim Pouncer Machine Operator: Gal Katz MD Basophils/100 WBC (Bld) 1 % Normal 0-2 [facility] Comment on above: Performed By: #### B MP, CDP #### [address] [place], [place] [id number] Brim Pouncer Machine Operator: Gal Katz MD Eosinophils (Bld) [#/Vol] 0.17 10*3/uL Normal 0.00-0.44 [facility] Comment on above: Performed By: #### B MP, CDP #### [address] [place], [place] [id number] Brim Pouncer Machine Operator: Gal Katz MD Eosinophils/100 WBC (Bld) 2 % Normal 1-4 [facility] Comment on above: Performed By: #### B MP, CDP #### [address] [place], [place] [id number] Brim Pouncer Machine Operator: Gal Katz MD Erythrocyte distribution width (RBC) [Ratio] 12.7 % Normal 11.8-14.4 [facility] Comment on above: Performed By: #### B MP, CDP #### [address] [place], [place] [id number] Brim Pouncer Machine Operator: Gal Katz MD Hematocrit (Bld) [Volume fraction] 41.1 % Normal 36.3-47.1 [facility] Comment on above: Performed By: #### B MP, CDP #### [address] [place], [place] [id number] Brim Pouncer Machine Operator: Gal Katz MD Hemoglobin (Bld) [Mass/Vol] 14.0 g/dL Normal 11.9-15.1 [facility] Comment on above: Performed By: #### B JACQUELIN, CDP #### [facility] [address] [place] [address] Brim Pouncer Machine Operator: Gal Katz MD Immature granulocytes/100 WBC (Bld) 0 % Normal 0 [facility] Comment on above: Performed By: #### B JACQUELIN, CDP #### [facility] [address] [place] [address] Brim Pouncer Machine Operator: Gal Katz MD Lymphocytes (Bld) [#/Vol] 2.31 10*3/uL Normal 1.10-3.70 [facility] Comment on above: Performed By: #### B JACQUELIN, CDP #### [address] [place] [address] Brim Pouncer Machine Operator: Gal Katz MD Lymphocytes/100 WBC (Bld) 20 % Low 24-43 [facility] Comment on above: Performed By: #### B JACQUELIN, CDP #### [address] [place] [address] Brim Pouncer Machine Operator: Gal Katz MD MCH (RBC) [Entitic mass] 30.1 pg Normal 25.2-33.5 [facility] Comment on above: Performed By: #### B JACQUELIN, CDP #### [address] [place] [address] Brim Pouncer Machine Operator: Gal Katz MD MCHC (RBC) [Mass/Vol] 34.1 g/dL Normal 28.4-34.8 [facility] Comment on above: Performed By: #### B JACQUELIN, CDP #### [address] [place] [address] Brim Pouncer Machine Operator: Gal Katz MD MCV (RBC) [Entitic vol] 88.4 fL Normal 82.6-102.9 [facility] Comment on above: Performed By: #### B MP, CDP #### [address] [place] [address] Brim Pouncer Machine Operator: Gal Katz MD Monocytes (Bld) [#/Vol] 0.90 10*3/uL Normal 0.10-1.20 [facility] Comment on above: Performed By: #### B MP, CDP #### [address] [place], [place] [id number] Brim Pouncer Machine Operator: Gal Katz MD Monocytes/100 WBC (Bld) 8 % Normal 3-12 [facility] Comment on above: Performed By: #### B MP, CDP #### [address] [place], [place] [address]83 Brim Pouncer Machine Operator: Gal Katz MD Neutrophil (Seg) 69 % High 36-65 [facility] Comment on above: Performed By: #### B JACQUELIN, CDP #### [address] [place], [place] [address]83 Brim Pouncer Machine Operator: Gal Katz MD NRBC Automated 0.0 per 100 WBC Normal 0.0 [facility] Comment on above: Performed By: #### B JACQUELIN, CDP #### [address] [place], [place] [phone] Brim Pouncer Machine Operator: Gal Katz MD Platelet mean volume (Bld) [Entitic vol] 9.4 fL Normal 8.1-13.5 [facility] Comment on above: Performed By: #### B JACQUELIN, CDP #### [address] [place] [address] Brim Pouncer Machine Operator: Gal Katz MD Platelets (Bld) [#/Vol] 327 10*3/uL Normal 138-453 [facility] Comment on above: Performed By: #### B MP, CDP #### [facility] [address] [place], [place] [id number] Brim Pouncer Machine Operator: Gal Katz MD RBC (Bld) [#/Vol] 4.65 10*6/uL Normal 3.95-5.11 [facility] Comment on above: Performed By: #### B MP, CDP #### [facility] [address] [place] [address] Brim Pouncer Machine Operator: Gal Katz MD WBC (Bld) [#/Vol] 11.6 10*3/uL High 3.5-11.3 [facility] Comment on above: Performed By: #### B MP, CDP #### [facility] [address] [place] [address] [place], [place] [id number] Brim Pouncer Machine Operator: Gal Katz MD HCG, Quanton 04-27-2024 HCG, Quant 91394.0 mIU/mL High 0-7 [facility] Comment on above: Result Comment: Non-preg premeno <=5 Postmeno <=8 Male <=3 If HCG results do not concur with clinical observations, additional testing to confirm results is recommended. Performed By: #### B HCG #### [facility] [address] [place] [address] [place], [place] [phone] Brim Pouncer Machine Operator: Gal Katz MD HCG, Quantitative, on 04-27-2024 [place] [address].0 m[IU]/mL [facility] Comment on above: Non-preg premeno <=5 Postmeno <=8 Male <=3 If HCG results do not concur with clinical observations, additional testing to confirm results is recommended. Interpretation and review of laboratory results Abnormal [facility] TYPE AND SCREENon 04-27-2024 ABO and Rh group Nom (Bld) Blood group A Rh(D) positive [facility] Arm Band Number [id number] [facility] Blood Bank Sample Expiration 04/30/2024,2359 [facility] Blood group antibodies identified Nom Negative [facility] + Screenon 04-27-2024 Type + Screen Sample Expiration 04/30/2024,2359 Arm Band Number [id number] ABO/Rh(D) A POSITIVE Antibody Screen NEGATIVE Normal [facility] Comment on above: Performed By: #### T YS #### [facility] [address] [place] [address] Brim Pouncer Machine Operator: Gal Katz MD US OB LESS THAN [...] Onur Mack MD 04/27/24 Final result Normal [facility] Single viable intrauterine with an estimated [...] gas No adnexal mass or free fluid. [facility] EXAMINATION: FIRST TRIMESTER OBSTETRIC ULTRASOUND 04/27/2024 [...] adnexal mass or free fluid is seen. [facility] Onur Mack MD - 04/27/2024 EXAMINATION: [...] gas No adnexal mass or free fluid. [facility] Radiology Study observation (narrative) [facility] US OB LESS THAN 14 WEEKS SIN GLE OR FIRST GESTATION W DOPPLEROrdered By: Onur Mack on 04-27-2024 [facility] Work Phone: Urinalysis w/ Microon 2024 Bacteria 1+ Abnormal NONE [facility] Comment on above: Performed By: #### U AMIC #### [facility] [address] [place] [address] [place] [address] Brim Pouncer Machine Operator: Gal Katz MD Bilirubin, SemiQt,Ur Negative Normal NEG [facility] Comment on above: Performed By: #### U AMIC #### [facility] [address] [place] [address] Brim Pouncer Machine Operator: Gal Katz MD Blood, Urine 1+ Abnormal NEG [facility] Comment on above: Performed By: #### U AMIC #### [facility] [address] [place], [place] [address] Brim Pouncer Machine Operator: Gal Katz MD Clarity (U) SLIGHTLY CLOUDY Abnormal CLEAR [facility] Comment on above: Performed By: #### U AMIC #### [facility] [address] [place] [address] Brim Pouncer Machine Operator: Gal Katz MD Color (U) Yellow Normal YEL [facility] Comment on above: Performed By: #### U AMIC #### [facility] [address] [place] [address] Brim Pouncer Machine Operator: Gal Katz MD Epithelial cells LM Ql (Urine sed) 20 TO 50 Normal 0-25 [facility] Comment on above: Performed By: #### U AMIC #### [facility] [address] [place] [address] [place], [place] 102[address]83 Brim Pouncer Machine Operator: Gal Katz MD Glucose Ql (U) Negative Normal NEG [facility] Comment on above: Performed By: #### U AMIC #### [facility] [address] [place] [address] [place], [place] [phone] Brim Pouncer Machine Operator: Gal Katz MD Ketones Ql (U) Negative Normal NEG [facility] Comment on above: Performed By: #### U AMIC #### [facility] [address] [place] [address] Dr. [place], [place] [id number] Brim Pouncer Machine Operator: Gal Katz MD Leukocyte esterase Test strip Ql (U) Negative Normal NEG [facility] Comment on above: Performed By: #### U AMIC #### [facility] [address] [place] [address] Dr. [place], [place] [id number] Brim Pouncer Machine Operator: Gal Katz MD Nitrite,Ur Negative Normal NEG [facility] Comment on above: Performed By: #### U AMIC #### [facility] [address] [place] [address] Dr. [place], [place] [id number] Brim Pouncer Machine Operator: Gal Katz MD PH,Ur 6.0 Normal 5.0-9.0 [facility] Comment on above: Performed By: #### U AMIC #### [facility] [address] [place] [address] [place] [address] Brim Pouncer Machine Operator: Gal Katz MD Protein Ql (U) Negative Normal NEG [facility] Comment on above: Performed By: #### U AMIC #### [address] [place], [place] [id number] Brim Pouncer Machine Operator: Gal Katz MD Spec. [place],Ur 1.025 High 1.010-1.[address] [facility] Comment on above: Performed By: #### U AMIC #### [facility] [address] [place] [address] Dr. [place], [place] [phone] Brim Pouncer Machine Operator: Gal Katz MD Urine RBC's 2 TO 5 Normal 0-2 [facility] Comment on above: Performed By: #### U AMIC #### [facility] [address] [place], [place] [id number] Brim Pouncer Machine Operator: Gal Katz MD Urine WBC's 2 TO 5 Normal 0-5 [facility] Comment on above: Performed By: #### U AMIC #### [facility] [address] [place], [place] [id number] Brim Pouncer Machine Operator: Gal Katz MD Urobilinogen,Ur Normal Normal 0.0-1.0 [facility] Comment on above: Performed By: #### U AMIC #### [facility] [address] [place] [address] Brim Pouncer Machine Operator: Gal Ktaz MD Urinalysis with Microscopico n 04-27-2024 Bacteria LM Ql (Urine sed) 1+ Abnormal None [facility] Bilirubin Ql (U) Negative NEGATIVE [facility] Sec[facility] Clarity (U) SLIGHTLY CLOUDY Abnormal Clear [facility] Color (U) Yellow Yellow [facility] Epithelial cells LM.HPF (Urine sed) [#/Area] 20 TO 50 [facility] Glucose Test strip (U) [Mass/Vol] Negative NEGATIVE mg/dL [facility] Hemoglobin Auto test strip Ql (U) 1+ Abnormal NEGATIVE [facility] Interpretation and review of laboratory results Abnormal [facility] Ketones (U) [Mass/Vol] Negative NEGATIVE mg/dL [facility] Leukocyte esterase Test strip Ql (U) Negative NEGATIVE [facility] Nitrite Ql (U) Negative NEGATIVE [facility] pH (U) 6.0 [pH] 5.0 - 9.0 [facility] Protein (U) [Mass/Vol] Negative NEGATIVE mg/dL [facility] RBC LM.HPF (Urine sed) [#/Area] 2 TO 5 [facility] Specific gravity (U) [Rel density] 1.025 High 1.010 - 1.020 [facility] Urobilinogen Qn (U) Normal 0.0 - 1. 0 EU/dL [facility] WBC LM.HPF (Urine sed) [#/Area] 2 TO 5 [facility] COMPLETE BLOOD COUNTon 09-26 Erythrocyte distribution width (RBC) [Ratio] 13.7 % Normal 11.5-15.0 [facility] Comment on above: Performed By: #### Puneet BERNARD CMP, 30891-4, TSHR #### [facility] ([id number]) [address] [address] [place] [address] Hematocrit (Bld) [Volume fraction] 44.4 % Normal 35-47 [facility] Comment on above: Performed By: #### Puneet BERNARD CMP, 91085-6, TSHR #### [facility] ([id number]) [address] [place] [address] Hemoglobin (Bld) [Mass/Vol] 15.1 g/dL Normal 11.7-15.5 [facility] Comment on above: Performed By: #### Puneet BERNARD CMP, 92599-9, TSHR #### [facility] ([id number]) [address] [address] [place] [address] MCH (RBC) [Entitic mass] 29.8 pg Normal 27-34 [facility] Comment on above: Performed By: #### Puneet BERNARD CMP, 87707-4, TSHR #### [facility] ([id number]) [address] [address] [place] [address] MCHC (RBC) [Mass/Vol] 34.0 g/dL Normal 32-36 [facility] Comment on above: Performed By: #### Puneet BERNARD CMP, 75870-8, TSHR #### [facility] ([id number]) [address] [address] [place] [address] MCV (RBC) [Entitic vol] 88 fL Normal 80-100 [facility] Comment on above: Performed By: #### Puneet BERNARD CMP, 33109-4, TSHR #### [facility] ([id number]) [address] [place] [address] Platelet mean volume (Bld) [Entitic vol] 8.5 fL Normal 7-12 [facility] Comment on above: Performed By: #### Puneet BERNARD CMP, 59247-0, TSHR #### [facility] ([id number]) [address] [place] [address] Platelets (Bld) [#/Vol] 302 10*3/uL Normal 150-450 [facility] Comment on above: Performed By: #### Puneet BERNARD CMP, 00609-7, TSHR #### [facility] ([id number]) [address] [place] [address] RBC COUNT 5.07 X10E12/L Normal 3.80-5.20 [facility] Comment on above: Performed By: #### Puneet BERNARD CMP, 88764-0, TSHR #### [facility] ([id number]) [address], [address] [place] [address] WBC (Bld) [#/Vol] 6.1 10*3/uL Normal 4.0-11.0 [facility] Comment on above: Performed By: #### Puneet BERNARD CMP, 53720-7, TSHR #### [facility] ([id number]) [address], [address] [place] [address] COMPREHENSIVE METABOLIC PANE Hermelindo 09-27-2023 Albumin [Mass/Vol] 4.4 g/dL Normal 3.2-5.3 [facility] Comment on above: Performed By: #### Puneet BERNARD CMP, 45694-3, TSHR #### [facility] ([id number]) [address] [place] [address] ALP [Catalytic activity/Vol] 62 U/L Normal 39-130 [facility] Comment on above: Performed By: #### Puneet BC, CMP, 03180-5, TSHR #### [facility] ([id number]) [address] [place] [address] ALT [Catalytic activity/Vol] 19 U/L Normal 0-31 [facility] Comment on above: Performed By: #### Puneet BERNARD, CMP, 62578-3, TSHR #### [facility] ([id number]) [address] [place] [address] Anion gap [Moles/Vol] 9 mmol/L Normal 5-15 [facility] Comment on above: Performed By: #### Puneet BERNARD, CMP, 33895-7, TSHR #### [facility] ([id number]) [address] [place] [address] AST [Catalytic activity/Vol] 19 U/L Normal 0-41 [facility] Comment on above: Performed By: #### Puneet BC, CMP, 96098-0, TSHR #### [facility] ([id number]) [address] [place] [address] Bilirubin [Mass/Vol] 0.7 mg/dL Normal 0.3-1.2 [facility] Comment on above: Performed By: #### Puneet BERNARD, CMP, 72237-0, TSHR #### [facility] ([id number]) [address], [address] [place] [address] Calcium [Mass/Vol] 9.5 mg/dL Normal 8.5-10.5 [facility] Comment on above: Performed By: #### Puneet BC, CMP, 57190-7, TSHR #### [facility] ([id number]) [address] [place] [address] Chloride [Moles/Vol] 106 mmol/L Normal 98-109 [facility] Comment on above: Performed By: #### Puneet BERNARD CMP, 53671-1, TSHR #### [facility] ([id number]) [address] [place] [address] CO2 [Moles/Vol] 24 mmol/L Normal 22-32 [facility] Comment on above: Performed By: #### Puneet BERNARD CMP, 54033-2, TSHR #### [facility] ([id number]) [address] [address] [place] [address] Creatinine [Mass/Vol] 0.75 mg/dL Normal 0.40-1.00 [facility] Comment on above: Result Comment: METH OD TRACEABLE TO IDMS STANDARD Performed By: #### Puneet BERNARD CMP, 39622-5, TSHR #### [facility] ([id number]) [address] [place] [address] eGFR (CKD-EPI) NON-RACE DEPENDENT >90 Normal >59 [facility] Comment on above: Result Comment: Reported eGFR is based on the CKD-EPI 2020 equation that does not use a race coefficient. Performed By: #### Puneet BERNARD CMP, 22719-8, TSHR #### [facility] ([id number]) [address] [address] [place] [address] Glucose [Mass/Vol] 70 mg/dL Normal 65-99 [facility] Comment on above: Performed By: #### Puneet BERNARD CMP, 14168-8, TSHR #### [facility] ([id number]) [address] [address] [place] [address] Potassium [Moles/Vol] 4.3 mmol/L Normal 3.5-5.0 [facility] Comment on above: Performed By: #### Puneet BERNARD CMP, 45979-5, TSHR #### [facility] ([id number]) [address] [place] [address] Protein [Mass/Vol] 7.3 g/dL Normal 6.0-8.0 [facility] Comment on above: Performed By: #### Puneet BERNARD, CMP, 09854-2, TSHR #### [facility] ([id number]) [address] [facility] [address] [place] [address] Sodium [Moles/Vol] 139 mmol/L Normal 134-146 [facility] Comment on above: Performed By: #### Puneet BERNARD, CMP, 15819-3, TSHR #### [facility] ([id number]) [address] [address] [place] [address] Urea nitrogen [Mass/Vol] 9 mg/dL Normal 5-23 [facility] Comment on above: Performed By: #### Puneet BERNARD, CMP, 08455-7, TSHR #### [facility] ([id number]) [address] [place] [address] Lipid 1996 panelon 4 Cholesterol [Mass/Vol] 192 mg/dL Normal 150-200 [facility] Comment on above: Performed By: #### Puneet BERNARD, CMP, 56805-9, TSHR #### [facility] ([id number]) [address] [address] [place] [address] Cholesterol in HDL [Mass/Vol] 61 mg/dL Normal >39 [facility] Comment on above: Result Comment: HDL <40 mg/dL - High Risk HDL > or = 40mg/dL- Desirable HDL >60 mg/dL - Negative Risk Performed By: #### Puneet BERNARD, CMP, 03836-4, TSHR #### [facility] ([id number]) [address] [address] [place] [address] Cholesterol in LDL [Mass/Vol] 118 mg/dL Normal <130 [facility] Comment on above: Result Comment: LDL <100 mg/dL - Desirable LDL >160 mg/dL - High Risk Performed By: #### Puneet BERNARD, CMP, 60186-0, TSHR #### [facility] ([id number]) [address] [address] [place] [address] Cholesterol in VLDL [Mass/Vol] 13 mg/dL Normal 0-30 [facility] Comment on above: Performed By: #### Puneet BERNARD, CMP, 74665-5, TSHR #### [facility] ([id number]) [address] [address] CHOLESTEROL:HDL 3.1 Normal 1.0-5.0 [facility] Comment on above: Performed By: #### Puneet BERNARD, CMP, 63643-2, TSHR #### [facility] ([id number]) [address] [address] [place] [address] Triglyceride [Mass/Vol] 64 mg/dL Normal 27-150 [facility] Comment on above: Performed By: #### Puneet BERNARD, CMP, 56129-8, TSHR #### [facility] ([id number]) [address] [address] [place] [address] TSH WITH REFLEXon 09-27-2023 TSH 1.21 uIU/mL Normal 0.49-4.67 [facility] Comment on above: Performed By: #### Puneet BERNARD, CMP, 80929-0, TSHR #### [facility] ([id number]) [address] [address] [place] [address] HCG ( test) Ql (U)o n 09-03-2023 Beta HCG ( test) Ql (U) Negative Normal NEG [facility] Comment on above: Performed By: #### 2 106-3 #### [facility] ([id number]) [address] [place] [address] Surgical Pathologyon 024 Surgical Pathology Normal [facility] Comment on above: Result Comment: [facility] [address] [place] [address] Surgical Pathology Consultation Patient Name:SAPNA SERRANO:1995 (Age: 28)Gender:FTaken:09/03/2023eported:09/07/2023hysician(s):Haja Osullivan MD ([phone])Copy To: Rec. #:[id number]: #[id number] Final Pathologic Diagnosis Sigmoid colon biopsies: Unremarkable colonic mucosa. No colitis, granuloma or dysplasia identified. No microscopic colitis or inflammatory bowel disease identified. Report Electronically Signed Out ssi/09/07/2023Suharish Hayes M.D. Interpretation performed at [facility], [address] [place] [address], License number: [id number]. Clinical History Rectal bleeding. Gross Description Received in formalin labeled [facility], sigmoid BX are eight light cortes soft tissue bits, 0.2-0.4 cm.The specimen is filtered and entirely submitted in a single cassette. (1, ns, [id number],m3) DM. dm/09/04/2023O Specimen(s) Received Sigmoid biopsy Fee Codes(s): 1; 95028 CHLAMYDIA/GC PCR, FLon 08-09 CHLAMYDIA/GC PCR, FL [...] are dependent on adequate specimen collection. Normal [facility] Comment on above: Performed By: #### C GT #### [facility] ([id number]) [address] [place] [address] [facility] ([id number]) [address] [place] [address], [address] [place] [address] Cytologyon 08-10-2023 Cytology Normal [facility] Comment on above: Result Comment: [facility] [address] [place] [address] Gynecologic Cytology Consultation Patient Name:SAPNA SERRANO:1995 (Age: 28)Gender:FTaken:4Reported:08/26/2023hysician(s):Claire Kat M.D. ([phone])Copy To: Rec. #:[id number]: #[id number] Final Cytologic Interpretation ThinPrep Pap Test (Cervical): Satisfactory for evaluation. A transformation zone component is present. NEGATIVE FOR INTRAEPITHELIAL LESION OR MALIGNANCY. Shift in daniella suggestive of bacterial vaginosis. [facility]/08/26/2023 Interpretation performed at [facility], [address] [place] [address], License number: [id number]. Electronically Signed Out By JOSUÉ Kimble(ASCP) Date of Last Menstrual Period: 07/13/23 Other Clinical Conditions: Previous abnormal pap Z01.419 Janitorial Services Supervisor exam wo/abn findings Source of Specimen ThinPrep Pap Test (Cervical) Thin Prep Pap (TIME STAMP ASSEMBLER) Fee Code(s): G0145 The Pap test is a screening test with an inherent, but low, probability of error. The Pap test is primarily effective for the diagnosis and prevention of squamous cell carcinoma. Regular screening is critical for prevention. ThinPrep liquid-based slides, which meet the [employer] criteria for automated screening, have been screened by the [employer] (as of 12/20/06) along with an additional manual rescreening by a swimming pool servicer and, if indicated, by a pathologist. HIGH RISK HPV W/GENOon 08-09 HPV 31+33+35+39+45+51+52 +56+58+59+66+68 DNA ALLISON+probe Ql (Cvx) HPV SPECIMEN TYPE ThinPrep HPV 16 Negative (qualifier value) HPV 18 Negative (qualifier value) OTHER HIGH RISK HPV Negative (qualifier value) HPV types 31,33,35,39,45,52,56, 58,59,66 and 68 DNA were undetectable. Normal [facility] Comment on above: Performed By: #### 7 1431-1 #### [facility] ([id number]) [address] [facility] [place] [address] [facility] ([id number]) [address] [facility] [place] [address] POCT , urineon 05 Beta HCG ( test) Ql (U) Negative [facility] Interpretation and review of laboratory results Normal [facility] Vital Signs Date Time Vital Sign Value Performing Clinician Facility 09-10-2024 23:35-0400 Diastolic blood pressure 73 mm[Hg] Victorino D'Abreau DO [facility] 09-10-2024 23:35-0400 Heart rate 75 /min Victorino D'Abreau DO Work Phone: [facility] [employer] 09-10-2024 23:35-0400 Systolic blood pressure 127 mm[Hg] Victorino D'Abreau DO Work Phone: [facility] [employer] 09-10-2024 22:22-0400 Body temperature 98.1 [degF] Victorino D'Abreau DO Work [facility] 09-10-2024 22:22-0400 Respiratory rate 16 /min Victorino D'Abreau DO Work [facility] 09-10-2024 22:22-0400 SaO2% (BldA) [Mass fraction] 98 % Victorino Christie DO Work Phone: [facility] 08-30-2024 10:38-0400 Body weight 88.91 kg Jocy YOUNG Work Phone: [facility] 08-30-2024 10:38-0400 Diastolic blood pressure 74 mm[Hg] Jocy YOUNG Work Phone: [facility] 08-30-2024 10:38-0400 Systolic blood pressure 130 mm[Hg] Jocy YOUNG Work Phone: [facility] 08-14-2024 10:57-0400 Body weight 87.91 kg Curtis Jeannine DO Work Phone: [facility] 08-14-2024 10:57-0400 Diastolic blood pressure 70 mm[Hg] Curtis Jeannine DO Work Phone: [facility] 08-14-2024 10:57-0400 Systolic blood pressure 116 mm[Hg] Curtis Jeannine DO Work Phone: [facility] 08-01-2024 13:31-0400 Body weight 85.19 kg Curtis Jeannine DO Work Phone: [facility] 08-01-2024 13:31-0400 Diastolic blood pressure 70 mm[Hg] Curtis Jeannine DO Work Phone: [facility] 08-01-2024 13:31-0400 Systolic blood pressure 120 mm[Hg] Curtis Jeannine DO Work Phone: [facility] 07-28-2024 09:19-0400 Body height 162.6 cm Lyndsey Burns MD Work Phone: [facility] 07-28-2024 09:19-0400 Body mass index (BMI) [Ratio] 32.63 kg/m2 Lyndsey Burns MD Work Phone: [facility] 07-28-2024 09:19-0400 Body weight 86.27 kg Lyndsey Burns MD Work Phone: [facility] 07-28-2024 09:19-0400 Diastolic blood pressure 72 mm[Hg] Lyndsey Burns MD Work Phone: [facility] 07-28-2024 09:19-0400 Heart rate 84 /min Lyndsey Burns MD Work Phone: [facility] 07-28-2024 09:19-0400 Systolic blood pressure 115 mm[Hg] Lyndsey Burns MD Work Phone: [facility] 07-06-2024 09:09-0400 Body weight 84.73 kg Jocy YOUNG Work Phone: [facility] 07-06-2024 09:09-0400 Diastolic blood pressure 72 mm[Hg] Jocy YOUNG Work Phone: [facility] 07-06-2024 09:09-0400 Systolic blood pressure 120 mm[Hg] Jocy YOUNG Work Phone: [facility] 06-08-2024 09:41-0500 Body weight 83.83 kg Curtis Jeannine DO Work Phone: [facility] 06-08-2024 09:41-0500 Diastolic blood pressure 70 mm[Hg] Curtis Jeannine DO Work Phone: [facility] 06-08-2024 09:41-0500 Systolic blood pressure 120 mm[Hg] Curtis Jeannine DO Work Phone: [facility] 05-09-2024 14:22-0500 Body weight 86.09 kg Curtis Jeannine DO Work Phone: [facility] 05-09-2024 14:22-0500 Diastolic blood pressure 72 mm[Hg] Curtis Jeannine DO Work Phone: [facility] 05-09-2024 14:22-0500 Systolic blood pressure 118 mm[Hg] Curtis Jeannine DO Work Phone: [facility] 05-05-2024 10:32-0500 Body weight 83.52 kg [facility] Nurse [facility] 05-05-2024 10:32-0500 Diastolic blood pressure 78 mm[Hg] [facility] Nurse [facility] 05-05-2024 10:32-0500 Systolic blood pressure 120 mm[Hg] [facility] Nurse [facility] 04-27-2024 20:58-0500 SaO2% (BldA) [Mass fraction] 98 % Zully Raya MD Work Phone: [facility] 04-27-2024 17:53-0500 Body height 162.6 cm Zully Raya MD Work Phone: [facility] 04-27-2024 17:53-0500 Body mass index (BMI) [Ratio] 29.18 kg/m2 Zully Raya MD Work Phone: [facility] 04-27-2024 17:53-0500 Body temperature 98.8 [degF] Zully Raya MD Work Phone: [facility] 04-27-2024 17:53-0500 Body weight 77.11 kg Zully Raya MD Work Phone: [facility] 04-27-2024 17:53-0500 Diastolic blood pressure 93 mm[Hg] Zully Raya MD Work Phone: [facility] 04-27-2024 17:53-0500 Heart rate 90 /min Zully Raya MD Work Phone: [employer] [facility] 04-27-2024 17:53-0500 Respiratory rate 20 /min Zully Raya MD Work Phone: [facility] 04-27-2024 17:53-0500 Systolic blood pressure 150 mm[Hg] Zully Raya MD Work Phone: [facility] 01-27-2024 09:54-0400 Body height 162.6 cm Armenalicia Correiaandra [place] Work Phone: [facility] 01-27-2024 09:54-0400 Body mass index (BMI) [Ratio] 28.15 kg/m2 Armen Furlong DO Work Phone[facility] 01-27-2024 09:54-0400 Body temperature 97.7 [degF] Armen Furlong DO Work Phone: [facility] [employer] 01-27-2024 09:54-0400 Body weight 74.39 kg Armen Furlong DO Work Phone: [facility] 01-27-2024 09:54-0400 Diastolic blood pressure 72 mm[Hg] Armen Furlong DO Work Phone: [facility] [employer] 01-27-2024 09:54-0400 Heart rate 89 /min Armen Furlong DO Work Phone: [facility] [employer] 01-27-2024 09:54-0400 Respiratory rate 18 /min Armen Furlong DO Work Phone: [facility] 01-27-2024 09:54-0400 SaO2% (BldA) [Mass fraction] 99 % Armen Furlong DO Work Phone: [facility] [employer] 01-27-2024 09:54-0400 Systolic blood pressure 118 mm[Hg] Armen Furlong DO Work Phone: [facility] 10-27-2023 10:26-0400 Body height 162.6 cm Armen Furlong DO Work Phone: [facility] 10-27-2023 10:26-0400 Body mass index (BMI) [Ratio] 29.94 kg/m2 Armen Furlong DO Work Phone: [facility] 10-27-2023 10:26-0400 Body temperature 97.81 [degF] Armen Furlong DO Work Phone: [facility] 10-27-2023 10:26-0400 Body weight 79.11 kg Armen Furlong DO Work Phone: [facility] 10-27-2023 10:26-0400 Diastolic blood pressure 60 mm[Hg] Armen Furlong DO Work Phone: [facility] 10-27-2023 10:26-0400 Heart rate 71 /min Armen Furlong DO Work Phone: [facility] 10-27-2023 10:26-0400 SaO2% (BldA) [Mass fraction] 99 % Armen Furlong DO Work Phone: [facility] 10-27-2023 10:26-0400 Systolic blood pressure 100 mm[Hg] Armen Furlong DO Work Phone: [facility] 09-27-2023 10:05-0400 Body height 162.6 cm Armen Furlong DO Work Phone: [facility] 09-27-2023 10:05-0400 Body mass index (BMI) [Ratio] 30.59 kg/m2 Armen Furlong DO Work Phone: [facility] 09-27-2023 10:05-0400 Body temperature 97.81 [degF] Armen Furlong DO Work Phone: [facility] 09-27-2023 10:05-0400 Body weight 80.83 kg Armen Furlong DO Work Phone: [facility] 09-27-2023 10:05-0400 Diastolic blood pressure 62 mm[Hg] Armen Furlong DO Work Phone: [facility] 09-27-2023 10:05-0400 Heart rate 81 /min Armen Furlong DO Work Phone: [facility] 09-27-2023 10:05-0400 SaO2% (BldA) [Mass fraction] 99 % Armen Furlong DO Work Phone: [facility] 09-27-2023 10:05-0400 Systolic blood pressure 100 mm[Hg] Armen Furlong DO Work Phone: [facility] 09-01-2023 11:00-0400 Body height 162.6 cm [facility] 09-01-2023 11:00-0400 Body mass index (BMI) [Ratio] 31.58 kg/m2 [facility] 09-01-2023 11:00-0400 Body weight 83.46 kg [facility] 08-25-2023 09:33-0400 Body height 162.6 cm Armen Furlong DO Work Phone: [facility] 08-25-2023 09:33-0400 Body mass index (BMI) [Ratio] 31.72 kg/m2 Armen Furlong DO Work Phone: [facility] 08-25-2023 09:33-0400 Body temperature 98.71 [degF] Armen Furlong DO Work Phone: [facility] 08-25-2023 09:33-0400 Body weight 83.83 kg Armen Furlong DO Work Phone: [facility] 08-25-2023 09:33-0400 Diastolic blood pressure 62 mm[Hg] Armen Furlong DO Work Phone: [facility] 08-25-2023 09:33-0400 Heart rate 89 /min Armen Furlong DO Work Phone: [facility] 08-25-2023 09:33-0400 Respiratory rate 18 /min Armen Furlong DO Work Phone: [facility] 08-25-2023 09:33-0400 SaO2% (BldA) [Mass fraction] 98 % Armen Furlong DO Work Phone: [facility] 08-25-2023 09:33-0400 Systolic blood pressure 98 mm[Hg] Armen Furlong DO [email or web address] 08-10-2023 09:46-0400 Body height 162.6 cm Claire Kat MD Work [email or web address] 08-10-2023 09:46-0400 Body mass index (BMI) [Ratio] 33.3 kg/m2 Claire Kat MD Work Phone: [facility] [employer] 08-10-2023 09:46-0400 Body weight 88 kg Claire Kat MD Work Phone: [facility] 08-10-2023 09:46-0400 Diastolic blood pressure 70 mm[Hg] Claire Kat MD Work Phone: [facility] 08-10-2023 09:46-0400 Systolic blood pressure 128 mm[Hg] Claire Kat MD Work Phone: [facility] [employer] Encounters Encounter Date Encounter Type Care Provider Facility Start: 09-21-2024 End: 09-21-2024 Clinisync Result Encounter Curtis Jeannine DO Work Phone: [facility] External Department Unsolicited Start: 09-21-2024 End: 09-21-2024 Clinisync Result Encounter Curtis Jeannine DO Work Phone: [facility] External Department Unsolicited Start: 09-18-2024 End: 09-18-2024 flow sheet Curtis Jeannine DO Work Phone: [facility] Comment on above: Anxiety, generalized (Primary Dx); Second trimester ([facility]-HCC); 27 weeks gestation of ([facility]-HCC); Cystic fibrosis carrier, antepartum ([facility]-HCC) Start: 09-18-2024 End: 09-18-2024 Bamboo flowsheet Curtis Jeannine DO Work Phone: [facility] Start: 09-18-2024 End: 09-18-2024 Bamboo flowsheet Curtis Jeannine DO Work Phone: [facility] Start: 09-15-2024 End: 09-15-2024 Telephone encounter Miriam Joseph RN [facility] Start: 09-10-2024 End: 09-11-2024 ambulatory [facility] Start: 09-10-2024 End: 09-11-2024 Subsequent hospital visit by physician Victorino Christie DO Work Phone: [email or web address] Labor [facility] Delivery Start: 09-10-2024 Emergency department patient visit ARMEN Steele [facility] Start: 09-07-2024 End: 09-07-2024 Office outpatient new 45 minutes Rashida Alvarez MD Work Phone: [facility] Comment on above: Cystic fibrosis fletcher ier (Primary Dx); Encounter for consultation Start: 09-07-2024 End: 09-07-2024 ambulatory RASHIDA ALVAREZ [facility] Comment on above: Cystic fibrosis fletcher ier (Primary Dx); Abnormal genetic test during Start: 08-30-2024 End: 08-30-2024 Bamboo flowsheet Jocy YOUNG Work Phone: [facility] Start: 08-30-2024 End: 08-30-2024 Bamboo flowsheet Jocy YOUNG Work Phone: [facility] Start: 08-30-2024 End: 08-30-2024 Clinisync Result Encounter [facility] DO Work Phone: [facility] External Department Unsolicited Start: 08-30-2024 End: 08-30-2024 flow sheet Jocy YOUNG Work Phone: [facility] Comment on above: Second trimester pre gnancy; 25 weeks gestation of Start: 08-25-2024 End: 08-25-2024 [facility]ulatory [facility] Start: 08-18-2024 End: 08-18-2024 Orders Only Barbra Samuel RN [facility] Start: 08-17-2024 End: 08-18-2024 Telephone encounter Rachel Rodriguez LGC Work Phone: [facility] Start: 08-14-2024 End: 08-14-2024 Patient encounter procedure Curtis Jeannine DO Work Phone: [facility] Comment on above: Cystic fibrosis fletcher ier, antepartum; LGSIL on Pap smear of cervix Start: 08-01-2024 End: 08-01-2024 Bamboo flowsheet Curtis Jeannine DO Work Phone: [facility] Start: 08-01-2024 End: 08-01-2024 Bamboo flowsheet Curtis Jeannine DO Work Phone: [facility] Start: 08-01-2024 End: 08-01-2024 flow sheet Curtis Jeannine DO Work Phone: [facility] Comment on above: Chlamydia trachomati s infection; 21 weeks gestation of ; Second trimester ; Diabetes mellitus screening Start: 07-28-2024 End: 07-28-2024 Office consultation new/estab patient 60 min Lyndsey Burns MD Work Phone: [facility] Comment on above: Cystic fibrosis fletcher ier (Primary Dx) Start: 07-28-2024 End: 07-28-2024 Orders Only Miriam Joseph RN [facility] Comment on above: Cystic fibrosis fletcher ier (Primary Dx); Abnormal genetic test during Start: 07-12-2024 End: 07-12-2024 Telephone encounter Rachel Rodriguez [facility] Work Phone: [facility] Start: 07-11-2024 End: 07-11-2024 Bamboo flowsheet Emi Bronson [facility] Work Phone: [facility] Start: 07-11-2024 End: 07-11-2024 Bamboo flowsheet Emi Bronson [facility] Start: 07-11-2024 End: 07-11-2024 Clinical Support Emi Bronson [facility] Work Phone: [facility] Comment on above: Moderate episode of recurrent major depressive disorder (CMS/HCC); ALICIA (generalized anxiety disorder) (CMS/HCC) Start: 07-06-2024 End: 07-06-2024 Bamboo flowsheet Jocy YOUNG Work Phone: [facility] Start: 07-06-2024 End: 07-10-2024 Bamboo flowsheet Jocy YOUNG Work Phone: [facility] Start: 07-06-2024 End: 07-10-2024 Clinisync Result Encounter Jocy YOUNG Work Phone: [facility] External Department Unsolicited Start: 07-06-2024 End: 07-07-2024 External Result Encounter Jocy YOUNG Work Phone: [facility] External Department Unsolicited Start: 07-06-2024 End: 07-06-2024 Patient encounter procedure Jocy YOUNG Work Phone: [facility] Healthcare Start: 07-06-2024 End: 07-06-2024 Periodic preventive med est patient 18-39 yrs Jocy YOUNG Work Phone: [facility] OB Comment on above: 17 weeks gestation o f ; Second trimester ; Well woman exam with routine gynecological exam; Exposure to STD; Vaginal discharge Start: 07-05-2024 End: 07-05-2024 Clinisync Result Encounter Curtis Jeannine DO Work Phone: [facility] External Department Unsolicited Start: 07-05-2024 End: 07-05-2024 Clinisync Result Encounter Curtis Jeannine DO Work Phone: [facility] External Department Unsolicited Start: 06-20-2024 End: 06-20-2024 Telephone encounter Lara Lovelace [facility] Start: 06-20-2024 End: 06-20-2024 Telemedicine consultation with patient Rachel Rodriguez [facility] Work Phone: [facility] Comment on above: Cystic fibrosis fletcher ier (Primary Dx); Abnormal genetic test during ; Family history of developmental delay; Family history of spina bifida Start: 06-20-2024 End: 06-20-2024 ambulatory [facility] Start: 06-16-2024 End: 06-16-2024 Chart abstracting Scanning Provider External [facility] Start: 06-08-2024 End: 06-08-2024 Bamboo flowsheet Curtis Jeannine DO Work Phone: [facility] Start: 06-08-2024 End: 06-08-2024 Bamboo flowsheet Curtis Jeannine DO Work Phone: [facility] Start: 06-08-2024 End: 06-08-2024 flow sheet Curtis Jeannine DO Work Phone: [facility] OB Comment on above: 13 weeks gestation o f ; Second trimester ; History of loop electrosurgical excision procedure (LEEP) of cervix affecting , antepartum Start: 05-24-2024 End: 05-24-2024 Clinical Support Emi Bronson [facility] Work Phone: [facility] Comment on above: Moderate episode [...] flowsheet Curtis Jeannine DO Work Phone: [facility] Start: 05-09-2024 End: 05-09-2024 flow sheet Curtis Paez DO Work Phone: [facility] OB Comment on above: Missed menses; 9 weeks gestation of ; H/O LEEP Start: 05-05-2024 End: 05-05-2024 Office outpatient visit 5 minutes [facility] Jeannine Nurse [facility] OB Comment on above: GA: 8w3d Start: 05-03-2024 End: 05-03-[address] DO Work Phone: [facility] Start: 05-02-2024 End: 05-02-2024 Bamboo flowsheet Emi Bronson [facility] Work Phone: [facility] Start: 05-02-2024 End: 05-02-2024 Bamboo flowsheet Emi Bronson [facility] Work Phone: [facility] Start: 05-02-2024 End: 05-02-2024 Clinical Support Emi Bronson [facility] Work Phone: [facility] Comment on above: Moderate episode of recurrent major depressive disorder (CMS/HCC); ALICIA (generalized anxiety disorder) (CMS/HCC) Start: 04-27-2024 End: 04-27-2024 Emergency department patient visit Zully Raya MD Work Phone: [facility] Emergency Department Comment on above: Abdominal cramping ( Primary Dx); Arm contusion, right, initial encounter Start: 04-18-2024 End: 04-18-2024 Orders Only Aicha Richard LPN [facility] Comment on above: Positive t est (Primary Dx) Start: 01-27-2024 End: 01-27-2024 Office outpatient visit [address] DO Work Phone: [facility] Comment on above: Current episode of m ajor depressive disorder without prior episode, unspecified depression episode severity (Primary Dx); Overweight Start: 01-27-2024 End: 01-27-2024 ambulatory [facility] Start: 01-21-2024 End: 01-21-2024 Refill [facility] DO Work Phone: [facility] Start: 12-13-2023 End: 12-13-2023 Bamboo flowsheet Emi Davisdaro LPCC Work Phone: [facility] Start: 12-13-2023 End: 12-13-2023 Bamboo flowsheet Emi Munson Aiyana LPCC Work Phone: [facility] Start: 12-13-2023 End: 12-13-2023 Clinical Support Emi Davisdaro LPCC Work Phone: [facility] Comment on above: Moderate episode of recurrent major depressive disorder (HCC) ([facility]/HCC); ALICIA (generalized anxiety disorder) ([facility]/HCC) Start: 11-29-2023 End: 11-29-2023 Bamboo flowsheet Emi Davisdaro LPCC Work Phone: [facility] Start: 11-29-2023 End: 11-29-2023 Bamboo flowsheet Emi Munson Aiyana LPCC Work Phone: [facility] Start: 11-29-2023 End: 11-29-2023 Clinical Support Emi Bronson LPCC Work Phone: [facility] Comment on above: Moderate episode of recurrent major depressive disorder (HCC) (CMS/HCC); ALICIA (generalized anxiety disorder) ([facility]/HCC) Start: 10-27-2023 End: 10-27-2023 ambulatory [facility] Start: 10-27-2023 End: 10-27-2023 Office outpatient visit 25 minutes Armen Steele [place] DO Work Phone: [facility] Comment on above: Overweight (Primary Dx); Anxiety; Depression, unspecified depression type; Onychomycosis Start: 10-18-2023 End: 10-18-[address] DO Work Phone: [facility] Start: 10-03-2023 End: 10-04-[address] DO Work Phone: [facility] Comment on above: Class 1 obesity due to excess calories with body mass index (BMI) of 31.0 to 31.9 in adult, unspecified whether serious comorbidity present Start: 09-27-2023 End: 09-27-2023 ambulatory [facility] Start: 09-27-2023 Encounter for genera l adult medical examination without abnormal findings [facility] Start: 09-27-2023 End: 09-27-2023 Patient encounter status Armen Street DO Work Phone: [facility] [employer] Work Phone: Start: 09-27-2023 End: 09-27-2023 Periodic preventive med est patient 18-[address] DO Work Phone: [facility] Comment on above: Well adult health ch aashish (Primary Dx); Class 1 obesity due to excess calories without serious comorbidity with body mass index (BMI) of 31.0 to 31.9 in adult; Rectal bleeding; Onychomycosis; Benign skin lesion Start: 09-27-2023 End: 09-27-2023 ambulatory [facility] Start: 09-27-2023 Encounter for genera l adult medical examination without abnormal findings [facility] Start: 09-03-2023 End: 09-04-2023 Evaluation and management of inpatient [facility] Start: 09-02-2023 End: 09-02-2023 ambulatory [facility] Pat Phone Call Provider [address] [facility] - Pre Admit Start: 09-01-2023 End: 09-01-[address] [facility] Start: 08-25-2023 End: 08-25-2023 Office outpatient new [address] DO Work Phone: [facility] Comment on above: Rectal bleeding (Lucita sangeeta Dx); Mild major depression (CMS-HCC); Class 1 obesity due to excess calories with body mass index (BMI) of 31.0 to 31.9 in adult, unspecified whether serious comorbidity present Start: 08-10-2023 End: 08-10-2023 Encounter for gynecological examination (general) (routine) without abnormal findings Claire Kat MD Work Phone: [facility] Start: 08-10-2023 End: 08-10-2023 Initial preventive medicine new pt age 18-39yrs Claire Kat MD Work Phone: [facility] Comment on above: Encounter for gyneco logical examination without abnormal finding (Primary Dx); Screening for STD (sexually transmitted disease); Pap smear, as part of routine gynecological examination; Encounter for initial prescription of vaginal ring hormonal contraceptive Start: 08-10-2023 End: 08-10-2023 Patient encounter status Claire Kat MD Work Phone: [facility] Start: 08-10-2023 End: 08-10-2023 ambulatory CLAIRE KAT [facility] Start: 08-10-2023 Encounter for gynecological examination (general) (routine) [facility] Procedures Date Procedure Procedure Detail Performing Clinician Start: 09-21-2024 US OB PLACENTA Curtis Fa zio DO Work Phone: Start: 09-21-2024 US OB CERVICAL LENGTH C orey Jeannine DO Work Phone: Start: 08-30-2024 ALL CBC WITH AUTO DIFF Curtis Jeannine DO Work Phone: Start: 08-14-2024 COLPOSCOPY Curtis Fazi o DO Work Phone: Start: 07-06-2024 RECURRENT VAGINITIS (HTRX) Jocy YOUNG Work Phone: Start: 07-06-2024 AFP, SERUM, OPEN SPI NA BIFIDA Jocy YOUNG Work Phone: Start: 07-06-2024 Urnls dip stick/tabl et rgnt non-auto w/o micrscp Jocy YOUNG Work Phone: Start: 07-06-2024 Microscopic observat ion [Identifier] in Cervix by Cyto stain Lyndsey Burns MD Work Phone: Start: 07-05-2024 OB CERVICAL LENGTH C orey Jeannine DO Work Phone: Start: 06-08-2024 Urnls dip stick/tabl et rgnt non-auto w/o micrscp Curtis Jeannine DO Work Phone: Start: 05-17-2024 ALL CBC WITH AUTO DIFF Curtis Jeannine DO Work Phone: Start: 05-17-2024 BOX TEST Curtis Fazi o DO Work Phone: Start: 05-05-2024 End: 05-05-2024 Urnls dip stick/tablet rgnt non-auto w/o micrscp Curtis Jeannine DO Work Phone: Start: 04-27-2024 uterus 1 4 wk transabdl 04/05 gestat Zully Raya MD Work Phone: Start: 04-27-2024 Basic metabolic pane l calcium total Zully Raya MD Work Phone: Start: 04-27-2024 Blood typing serologic abo Zully Raya MD Work Phone: Start: 04-27-2024 Urnls dip stick/tabl et reagent auto microscopy Zully Raya MD Work Phone: Start: 01-27-2024 Follow-up visit Follow-up [address] Start: 10-27-2023 Adult depression scr eening assessment Armen Street DO Work Phone: Start: 09-27-2023 Adult depression scr eening assessment Armen Street [place] Work Phone: Start: 08-25-2023 Adult depression scr eening assessment Armen Street [place] Work Phone: Start: 08-10-2023 Urine test visual color cmprsn meths Claire Kat MD Work Phone: Start: 08-10-2023 Adult depression scr eening assessment Claire Kat MD Work Phone: Start: 08-10-2023 Microscopic observat ion [Identifier] in Cervix by Cyto stain Armen Street [employer] Phone: Plan of Treatment Date Care Activity Detail Author Start: 2068 Respiratory Syncytia l Virus (RSV) or age 60 yrs+ (1 - 1-dose 75+ series) Respiratory Syncytial Virus (RSV) or age 60 yrs+ (1 - 1-dose 75+ series) [facility] [employer] Start: 08-16-2028 DTaP,Tdap and Td Vaccines (2 - Td or Tdap) DTaP,Tdap and Td Vaccines (2 - Td or Tdap) [employer] Start: 08-16-2028 DTaP/Tdap/Td vaccine (2 - Td or Tdap) DTaP/Tdap/Td vaccine (2 - Td or Tdap) [facility] [employer] Start: 07-07-2027 Screening for malign ant neoplasm of cervix [facility] Start: 08-09-2026 Screening for malign ant neoplasm of cervix [facility] Start: 09-07-2025 End: 09-07-2025 US MFM with or without consult US MFM with or without consult Imaging Routine Cystic fibrosis carrier Abnormal genetic test during Expected: 09/07/2025 (Approximate), Expires: 09/07/2025 [employer] Phone: Comment on above: Expected: 09/07/2025 (Approximate), Expires: 09/07/2025 Start: 07-28-2025 Adult BMI Screening Adult BMI Screen ing [facility] Start: 07-28-2025 Tobacco Screening Tobacco Screening [facility] Start: 07-28-2025 End: 07-28-2025 US MFM with or without consult US MFM with or without consult Imaging Routine Cystic fibrosis carrier Abnormal genetic test during Expected: 07/28/2025 (Approximate), Expires: 07/28/2025 [facility] Work Phone: Comment on above: Expected: 07/28/2025 (Approximate), Expires: 07/28/2025 Start: 02-24-2025 Tobacco Counseling Tobacco Counselin g [facility] Start: 01-26-2025 Adult BMI Screening Adult BMI Screen ing [facility] Start: 01-26-2025 Tobacco Screening Tobacco Screening [facility] Start: 12-04-2024 Influenza vaccination Influenza Vacc ine [facility] Start: 11-03-2024 Influenza vaccination Flu vacc ine (Season Ended) [facility] Start: 10-26-2024 Adult BMI Screening Adult BMI Screen ing [facility] Start: 10-26-2024 Depression Screening Depression Scre ening [facility] Start: 10-26-2024 Tobacco Screening Tobacco Screening [facility] Start: 10-03-2024 End: 10-03-2024 Patient encounter procedure 10/03/2024 1:40 PM EDT Routine [facility] [address] [place] [phone] Curtis Paez, DO [address] [place] [address] [facility] Start: 09-29-2024 End: 09-29-2024 Patient encounter procedure 09/29/2024 3:00 PM EDT Appointment [facility] [address] [place] [phone] Lyndsey Burns MD [address] [place], [place] [id number] [facility] Start: 09-26-2024 Adult BMI Screening Adult BMI Screen ing [facility] Start: 09-26-2024 Depression Screening Depression Scre ening [facility] Start: 09-26-2024 Tobacco Screening Tobacco Screening [facility] Start: 09-18-2024 End: 09-18-2024 Patient encounter procedure 09/18/2024 3:40 PM EDT Routine [facility] [address] [place] [phone] Curtis Paez DO [address] [place] [address] Arrived [facility] Comment on above: Arrived Start: 09-18-2024 End: 01-18-2025 US for US OB follow up transabdominal approach Imaging Routine Cystic fibrosis carrier, antepartum ([facility]-HCC) Expected: 09/18/2024 (Approximate), Expires: 01/18/2025 [facility] Work Phone: Comment on above: Expected: 09/18/2024 (Approximate), Expires: 01/18/2025 Start: 09-02-2024 Adult BMI Screening Adult BMI Screen ing [facility] Start: 09-02-2024 Tobacco Screening Tobacco Screening [facility] Start: 08-30-2024 End: 08-30-2024 Patient encounter procedure 08/30/2024 9:50 AM EDT Routine [facility] [address] [facility] [address] [place] [phone] Jocy Ruby PA [address] [place] [address] [facility] Start: 08-25-2024 End: 08-25-2024 Patient encounter procedure 08/25/2024 9:45 AM EDT Appointment [facility] [address] [place] [phone] [facility] [place] Start: 08-24-2024 Adult BMI Screening Adult BMI Screen ing [facility] Start: 08-24-2024 Depression Screening Depression Scre ening [facility] Start: 08-24-2024 Tobacco Screening Tobacco Screening [facility] Start: 08-10-2024 End: 08-10-2024 Clinical Support 08/10/2024 11:00 AM EDT Clinical Support [facility] [address] [place] [address] Emi Bronson, [facility] [address] [place] [address] [facility] Start: 08-09-2024 Adult BMI Follow Up Plan Adult BMI Follow Up Plan [facility] Start: 08-09-2024 Adult BMI Screening Adult BMI Screen ing [facility] Start: 08-09-2024 Depression Screening Depression Scre ening [facility] Start: 08-07-2024 End: 08-07-2024 Patient encounter procedure 08/07/2024 11:30 AM EDT Procedure Visit [facility] [address] [place] [phone] Curtis Paez, [address] [place] [address] [facility] Start: 08-01-2024 End: 08-01-2025 CBC panel - Blood by Automated count CBC Lab Routine Diabetes mellitus screening Expected: 08/01/2024 (Approximate), Expires: 08/01/2025 [facility] Healthcare Comment on above: Expected: 08/01/2024 (Approximate), Expires: 08/01/2025 Start: 08-01-2024 End: 08-01-2025 Measurement of glucose 1 hour after glucose challenge for glucose tolerance test Glucose tolerance, 1 hour Lab Routine Diabetes mellitus screening Expected: 08/01/2024 (Approximate), Expires: 08/01/2025 [facility] Healthcare Comment on above: Expected: 08/01/2024 (Approximate), Expires: 08/01/2025 Start: 08-01-2024 End: 08-01-2024 Patient encounter procedure 08/01/2024 1:20 PM EDT Routine [facility] [address] [place] [phone] Curtis Paez DO [address] [place] [address] [facility] Start: 07-28-2024 End: 07-28-2024 Patient encounter procedure [facility] Start: 07-11-2024 End: 07-11-2024 Clinical Support 07/11/2024 12:00 PM EDT Clinical Support [facility] [address] [place] [phone] Emi Bronson, [facility] [address] [place] [address] [facility] Start: 07-06-2024 End: 08-05-2024 Alpha fetoprotein, maternal Alpha fetoprotein, maternal Lab Routine 17 weeks gestation of Second trimester Expected: 07/06/2024 (Approximate), Expires: 08/05/2024 [facility] Healthcare Comment on above: Expected: 07/06/2024 (Approximate), Expires: 08/05/2024 Start: 07-06-2024 End: 07-06-2024 Patient encounter procedure [facility] Comment on above: Arrived Start: 06-20-2024 End: 06-20-2024 Clinical Support [facility] Start: 06-08-2024 End: 06-08-2025 US Pelvis transvaginal US OB transvaginal Imaging Routine 13 weeks gestation of Second trimester History of loop electrosurgical excision procedure (LEEP) of cervix affecting , antepartum Expected: 06/08/2024, Expires: 06/08/2025 [facility] Work Phone: Comment on above: Expected: 06/08/2024 , Expires: 06/08/2025 Start: 06-08-2024 End: 06-08-2024 Patient encounter procedure 06/08/2024 9:20 AM EST Routine [facility] [address] [place] [phone] Curtis Paez DO [address] [facility] [place] [address] [facility] Start: 05-24-2024 End: 05-24-2024 Clinical Support 05/24/2024 10:00 AM EST Clinical Support [facility] [address] [place] [address] Emi Bronson, [facility] [address] [place] [address] [facility] Start: 05-09-2024 End: 05-09-2024 Patient encounter procedure [facility] Comment on above: Arrived Start: 05-09-2024 End: 05-09-2025 US Pelvis transvaginal US OB transvaginal Imaging Routine H/O LEEP Expected: 05/09/2024, Expires: 05/09/2025 [facility] Comment on above: Expected: 05/09/2024 , Expires: 05/09/2025 Start: 05-05-2024 End: 05-05-2025 ABO/Rh ABO/Rh Lab Routine Missed menses , unspecified gestational age Expected: 05/05/2024 (Approximate), Expires: 05/05/2025 [facility] Comment on above: Expected: 05/05/2024 (Approximate), Expires: 05/05/2025 Start: 05-05-2024 End: 05-05-2025 Blood type and Indirect antibody screen panel - Blood Type and screen Lab Routine Missed menses , unspecified gestational age Expected: 05/05/2024 (Approximate), Expires: 05/05/2025 [facility] Work Phone: Comment on above: Expected: 05/05/2024 (Approximate), Expires: 05/05/2025 Start: 05-05-2024 End: 01-31-2026 Drugs of abuse panel - Urine by Screen method Rapid drug screen, urine Lab Routine , unspecified gestational age Encounter for supervision of normal first in first trimester Expected: 05/05/2024 (Approximate), Expires: 05/05/2025 [facility] Comment on above: Expected: 05/05/2024 (Approximate), Expires: 05/05/2025 Start: 05-05-2024 End: 05-05-2024 ambulatory 05/05/2024 10:00 AM EST Initial [facility] [address] [facility] [address] [facility] Start: 05-05-2024 End: 05-05-2024 Professional / ancillary services management 05/05/2024 9:30 AM EST Ancillary Procedure [facility] [address] [facility] [address] [facility] Start: 05-03-2024 End: 05-03-2024 Patient encounter procedure 05/03/2024 10:30 AM EST Office Visit [facility] - [facility] [address] [place] [address], DO [address], [facility] [place] [address] [facility] Start: 05-02-2024 End: 05-02-2024 Telemedicine consultation with patient 05/02/2024 10:45 AM EST Telemedicine [facility] Obst[facility]necology [address] [facility] [address] [place] [id number] Angela Monson, INDUSTRIAL ROOFER HELPER-CRYSTAL REPORT DEVELOPER [address] [facility] [address] [place], [place] [id number] [facility] Obstetric[facility]olog y Start: 01-27-2024 End: 01-27-2024 Patient encounter procedure 01/27/2024 10:00 AM EDT Office Visit [facility] [address] [place] [phone] [address], DO [address], [place] [address] [facility] Start: 12-27-2023 End: 12-27-2023 Clinical Support 12/27/2023 10:00 AM EDT Clinical Support [facility] [address] [place] [phone] Emi Bronson, [facility] [address] [place] [address] [facility] Start: 12-13-2023 End: 12-13-2023 Clinical Support 12/13/2023 11:00 AM EDT Clinical Support [facility] [address] [place] [phone] Emi Bronson, [facility] [address] [place] [address] [facility] Start: 12-05-2023 COVID-19 Vaccine ( season) COVID-19 Vaccine ( season) [facility] Start: 12-05-2023 COVID-19 Vaccine ( season) COVID-19 Vaccine ( season) [facility] Start: 12-05-2023 Influenza vaccination Influenza Vacc ine [facility] Start: 11-04-2023 Influenza vaccination Flu vaccine (# 1) [facility] Start: 10-28-2023 End: 10-28-2023 Patient encounter procedure 10/28/2023 11:00 AM EDT [facility] [address] [place] [address], DO [address], [place] [address] [facility] Internal [facility] - Family Medicine Start: 10-27-2023 End: 10-27-2023 Patient encounter procedure 10/27/2023 10:15 AM EDT Office Visit [facility] Internal Medicine - Family Medicine [address] [place] [address], DO [address], [place] [address] [facility] Internal Medicine - Family Medicine Start: 09-27-2023 End: 09-27-2023 Patient encounter procedure 09/27/2023 10:00 AM EDT Office Visit [facility] Internal Medicine - Family Medicine [address] [place] [address], DO [address] [place] [address] [facility] Internal Medicine - [facility] Start: 09-03-2023 End: 09-03-2023 Admission to same day surgery center 09/03/2023 1:30 PM EDT - 09/03/2023 2:[address] [facility] [address] [place] [address] Haja Osullivan, DO [address] [place] [address] COLONOSCOPY DIAGNOSTIC / SCREENING [82596 (CPT )] [facility] Comment on above: COLONOSCOPY DIAGNOST IC / SCREENING [81038 (CPT )] Start: 09-03-2023 End: 09-03-2023 Colonoscopy flx dx w/collj spec when pfrmd COLONOSCOPY DIAGNOSTIC / SCREENING rectal bleeding 09/03/2023 1:30 PM EDT [facility] Start: 09-03-2023 Subsequent hospital visit by physician 09/03/2023 1:30 PM EDT Hospital Encounter [facility] [address] [place] [address] Haja Osullivan, DO [address] [place] [address] [facility] Start: 09-02-2023 End: 09-02-2023 ambulatory 09/02/2023 2:00 PM EDT Support Visit [facility] Pre Admit [address] [place] [address] [facility] Start: 08-25-2023 End: 08-25-2023 Patient encounter procedure 08/25/2023 9:20 AM EDT [facility] [address] [place] [address], DO [address], [place] [address] [facility] Start: 08-01-2023 Screening for malign ant neoplasm of cervix [facility] Start: 2014 Screening for malign ant neoplasm of cervix Pap smear [facility] Start: 2012 DTaP,Tdap and Td Vaccines (1 - Tdap) DTaP,Tdap and Td Vaccines (1 - Tdap) [facility] Start: 2012 Hepatitis B vaccine (1 of 3 - 19+ 3-dose series) Hepatitis B vaccine (1 of 3 - 19+ 3-dose series) [facility] Start: 2012 Pneumococcal 0-49 ye ars Vaccine (1 of 2 - PCV) Pneumococcal 0-49 years Vaccine (1 of 2 - PCV) [facility] Start: 08-01-2011 Adult BMI Follow Up Plan Adult BMI Follow Up Plan [facility] Start: 08-01-2011 Hepatitis C screening Hepatitis C sc reen [facility] Start: 2008 HIV screening HIV screen [facility] Start: 2006 Varicella vaccine (1 of 2 - 13+ 2-dose series) Varicella vaccine (1 of 2 - 13+ 2-dose series) [facility] Start: 2005 Depression Screen Depression Screen [facility] Start: 2005 Tobacco Screening Tobacco Screening [facility] Start: 08-01-1999 Pneumococcal 0-64 ye ars Vaccine (1 of 2 - PCV) Pneumococcal 0-64 years Vaccine (1 of 2 - PCV) [facility] Bacteria identified in Urine by Culture Urine culture Microbiology Routine Missed menses Ordered: 05/05/2024 [facility] Comment on above: Ordered: 05/05/2024 End: 09-26-2024 CBC panel - Blood by Automated count CBC Lab Routine Rectal bleeding 1 Occurrences starting 09/27/2023 until 09/26/2024 [facility] Comment on above: 1 Occurrences starti ng 09/27/2023 until 09/26/2024 CBC W Auto Different ial panel - Blood CBC and differential Lab Routine Missed menses , unspecified gestational age Ordered: 05/05/2024 [facility] Comment on above: Ordered: 05/05/2024 CHLAMYDIA TRACHOMATI S (GENITO/STI) CHLAMYDIA TRACHOMATIS (GENITO/STI) Lab Routine Exposure to STD Ordered: 07/06/2024 [facility] Comment on above: Ordered: 07/06/2024 CHLAMYDIA TRACHOMATI S (GENITO/STI) CHLAMYDIA TRACHOMATIS (GENITO/STI) Lab Routine Chlamydia trachomatis infection 21 weeks gestation of Second trimester Ordered: 08/01/2024 [facility] Comment on above: Ordered: 08/01/2024 End: 08-09-2024 Chlamydia/GC by PCR ThinPrep fluid Chlamydia/GC by PCR ThinPrep fluid Microbiology Routine Pap smear, as part of routine gynecological examination 1 Occurrences starting 08/10/2023 until 08/09/2024 [facility] Comment on above: 1 Occurrences starti ng 08/10/2023 until 08/09/2024 End: 08-24-2024 Colonoscopy Colonoscopy GI Routine Rectal bleeding 1 Occurrences starting 08/25/2023 until 08/24/2024 [employer] Work Phone: Comment on above: 1 Occurrences starti ng 08/25/2023 until 08/24/2024 End: 09-26-2024 Comprehensive metabolic 2000 panel - Serum or Plasma Comprehensive metabolic panel Lab Routine Well adult health check 1 Occurrences starting 09/27/2023 until 09/26/2024 [employer] Work Phone: Comment on above: 1 Occurrences starti ng 09/27/2023 until 09/26/2024 Cytology Cervical or vaginal smear or scraping study Pap Smear Pathology and Cytology Routine Well woman exam with routine gynecological exam Ordered: 07/06/2024 [facility] Comment on above: Ordered: 07/06/2024 End: 08-09-2024 Cytopathology procedure, preparation of smear, genital source Pap Smear Pathology and Cytology Routine Pap smear, as part of routine gynecological examination 1 Occurrences starting 08/10/2023 until 08/09/2024 [email or web address] Comment on above: 1 Occurrences starti ng 08/10/2023 until 08/09/2024 End: 04-18-2025 HCG, Quantitative, HCG, Quantitative, Lab Routine Positive test 1 Occurrences starting 04/18/2024 until 04/18/2025 [employer] Work Phone: Comment on above: 1 Occurrences starti ng 04/18/2024 until 04/18/2025 Hemoglobin A1c/Hemoglobin.total in Blood Hemoglobin A1c Lab Routine Missed menses , unspecified gestational age Ordered: 05/05/2024 [facility] Comment on above: Ordered: 05/05/2024 Hepatitis B virus surface Ag [Presence] in Serum or Plasma by Immunoassay Hepatitis B surface antigen Lab Routine Missed menses , unspecified gestational age Ordered: 05/05/2024 [facility] Comment on above: Ordered: 05/05/2024 Hepatitis C virus Ab [Presence] in Serum or Plasma by Immunoassay Hepatitis C antibody Lab Routine Missed menses , unspecified gestational age Ordered: 05/05/2024 [facility] Comment on above: Ordered: 05/05/2024 End: 08-09-2024 Hepatitis panel, acute Hepatitis panel, acute Lab Routine Screening for STD (sexually transmitted disease) 1 Occurrences starting 08/10/2023 until 08/09/2024 [facility] Comment on above: 1 Occurrences starti ng 08/10/2023 until 08/09/2024 End: 08-09-2024 High risk HPV w/faustina High risk HPV w/faustina Lab Routine Pap smear, as part of routine gynecological examination 1 Occurrences starting 08/10/2023 until 08/09/2024 [facility] Comment on above: 1 Occurrences starti ng 08/10/2023 until 08/09/2024 End: 08-09-2024 HIV 1&2 AB/AG Screen (P24 AG) HIV 1&2 AB/AG Screen (P24 AG) Lab Routine Screening for STD (sexually transmitted disease) 1 Occurrences starting 08/10/2023 until 08/09/2024 [facility] Work Phone: Comment on above: 1 Occurrences starti ng 08/10/2023 until 08/09/2024 HIV-1/HIV-2 antigen/antibody combination immunoassay HIV-1 and HIV-2 antibodies Lab Routine Missed menses , unspecified gestational age Ordered: 05/05/2024 [facility] Comment on above: Ordered: 05/05/2024 Human papilloma viru s DNA [Presence] in Unspecified specimen by Probe with amplification HPV DNA probe, amplified Microbiology Routine Well woman exam with routine gynecological exam Ordered: 07/06/2024 [facility] Comment on above: Ordered: 07/06/2024 End: 09-26-2024 Lipid panel Lipid panel Lab Routine Well adult health check 1 Occurrences starting 09/27/2023 until 09/26/2024 [facility] Comment on above: 1 Occurrences starti ng 09/27/2023 until 09/26/2024 Neisseria gonorrhoea e DNA [Presence] in Unspecified specimen by ALLISON with probe detection Neisseria gonorrhea DNA probe, direct Lab Routine Exposure to STD Ordered: 07/06/2024 [facility] Healthcare Comment on above: Ordered: 07/06/2024 Neisseria gonorrhoea e DNA [Presence] in Unspecified specimen by ALLISON with probe detection Neisseria gonorrhea DNA probe, direct Lab Routine Chlamydia trachomatis infection 21 weeks gestation of Second trimester Ordered: 08/01/2024 [facility] Comment on above: Ordered: 08/01/2024 Reagin Ab [Presence] in Serum by RPR RPR Lab Routine Missed menses , unspecified gestational age Ordered: 05/05/2024 [facility] Comment on above: Ordered: 05/05/2024 Rubella antibody, IgG Rubella an tibody, IgG Lab Routine Missed menses , unspecified gestational age Ordered: 05/05/2024 [facility] Comment on above: Ordered: 05/05/2024 SURESWAB(R) ADVANCED VAGINITIS PLUS, TMA SURESWAB(R) ADVANCED VAGINITIS PLUS, TMA Pathology and Cytology Routine Vaginal discharge Ordered: 07/06/2024 [facility] Work Phone: Comment on above: Ordered: 07/06/2024 SURESWAB(R) ADVANCED VAGINITIS PLUS, TMA SURESWAB(R) ADVANCED VAGINITIS PLUS, TMA Pathology and Cytology Routine Chlamydia trachomatis infection 21 weeks gestation of Second trimester Ordered: 08/01/2024 [facility] Work Phone: Comment on above: Ordered: 08/01/2024 End: 08-09-2024 Syphilis Total(Unknown Syphilis Status) Syphilis Total(Unknown Syphilis Status) Lab Routine Screening for STD (sexually transmitted disease) 1 Occurrences starting 08/10/2023 until 08/09/2024 [facility] Comment on above: 1 Occurrences starti ng 08/10/2023 until 08/09/2024 Thyrotropin [Units/volume] in Serum or Plasma TSH Lab Routine Missed menses Ordered: 05/09/2024 [facility] Work Phone: Comment on above: Ordered: 05/09/2024 End: 09-26-2024 TSH with Reflex TSH with Reflex Lab Routine Class 1 obesity due to excess calories without serious comorbidity with body mass index (BMI) of 31.0 to 31.9 in adult 1 Occurrences starting 09/27/2023 until 09/26/2024 [facility] Comment on above: 1 Occurrences starti ng 09/27/2023 until 09/26/2024 End: 09-10-2024 Us uterus limited 1/> fetuses [facility] [employer] Work Phone: Comment on above: Once for 1 Occurrenc es starting 09/10/2024 until 09/10/2024 Immunizations Immunization Date Immunization Notes Care Provider Ebenezer mojica 08-16-2018 tetanus toxoid, redu andrew diphtheria toxoid, and acellular pertussis vaccine, adsorbed Armen Street DO Work Phone: [facility] Payers Date Payer Category Payer Unknown [id number] 2023 [facility] [employer] [id number] 2023 Private Health Insurance [id number] 2023 Unknown [id number] [id number]. [id number] 2023 Unknown [id number] 2017 Unknown [id number]. [id number] 1993 Unknown [id number] 2.16.840.1.494149.3.579. 2.1286 1993 Unknown [id number] 2.16.840.1.308414.3.579. 2.128 1993 Unknown [id number] 2.16.840.1.997795.3.579. 2.1286 1993 Unknown [id number] 2.16.840.1.469132.3.579. 2.128 1993 Unknown [id number] 2.16.840.1.903783.3.579. 2.1286 1993 Unknown [id number] 2.16840.1.423575.3.579. 2.128 1993 Unknown [id number] 2.16.840.1.688316.3.579. 2.1285 1993 Unknown [id number] 2.16840.1.395372.3.579. 2.1285 1993 Unknown [id number] 2.16840.1.328894.3.579. 2.128 1993 Unknown [id number] 2.16840.1.969652.3.579. 2.1285 1993 Unknown [id number] 2.840.1.649911.3.579. 2.128 1993 Unknown [id number] 2.840.1.131551.3.579. 2.128 1993 Unknown [id number] 2.16840.1.597627.3.579. 2.128 1993 Unknown [id number] 2.16840.1.993797.3.579. 2.1285 1993 Unknown [id number] 2.840.1.786427.3.579. 2.173 1993 Unknown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
[2024-09-22 18:15] VITALS: BP 131/82; PULSE 96
[2024-09-22 18:18] VITALS: TEMP 37.1
== END 2024-09-22 19:57 | disposition home or self-care (01) ==
LOC: FBCO 18:07 → FBC 18:10
PROVIDERS: PCP Family Medicine; Visit Provider Obstetrics & Gynecology
DX: O43.899 Other placental disorders, unspecified trimester (principal)
CPT/HCPCS: 59025

== ENCOUNTER 2024-09-24 16:07 | Outpatient (OUT) | payer OTHER, SELFPAY ==
--- OUTSIDE RECORDS SUMMARY | 2014-12-19 09:30 | XMS_ITS | Continuity of Care Document ---
Author Organization [facility] Address [address] [place] [address] Phone Care Team Providers Care Campus Interviews Intern Name Role Phone Yasmin Turcios MD Unavailable [...] Diagnoses Date Provider Providers Copied on Encounter [facility], [address], [place], [place], [address], tel:[phone] [facility] [place] [facility] No Information Dec- 5 Tam NULL Yasmin[address] [place], [place], [address], [place]. tel:[phone] [facility], [address], [place], [place], [address], tel:[phone] [facility] [place] [facility] contraception (chief complaint) Test - NegativeSubse q. Contraceptive Surveillance Dec- 0 5 Tam [address] [place], [place], [address], [place]. tel:[phone] Init Preven Meds E&m New Pt; 18-39 [facility], [address], [place], [place], [address], [place] tel:[phone] [facility] [place] [facility] annual exam (chief complaint) ROUTINE MORTGAGE BROKER EXAMINATIONPr egnancy Test - Negative Tam NULL Yasmin. [address] [place], [place], [address], [place]. tel:[phone] Family History Family Member Type Diagnosis Age At Onset Paternal grandmother Problem (finding) breast cancer Payers Payer name Insurance type Covered libertarian ID Authoriza [place]ion(s[place] [facility] [place] [id number] Social History Type Description Quantity Date Captured [...]
--- OUTSIDE RECORDS SUMMARY | 2024-09-10 21:51 | XMS_ITS | Encounter Summary ---
Demographics Address [address] [place] [address] Home Phone Work Phone Mobile Phone Email Address Preferred Language Italian Marital Status Single Baptist Affiliation Unknown Race White Ethnic Group Not or Lati no Author Organization [facility] Address [address] [place] [address] Care Team Providers Care Beet End Supervisor Name Role Phone Armen Sánchez DO Primary Care Provider Encounter Details Date Type Department Care Team (Latest Contact Info) Description 09/10/2024 9:51 PM EDT - 09/11/2024 12:42 AM EDT Hospital Encounter [facility] Labor and Delivery [address] [phone] Victorino Christie DO [address] [place] [phone] Discharge Disposition: Home or Self Care Social [...] AM EDT OUTPATIENT DISCHARGE Dr. Marlen Don [facility] Dr. Lillian Maldonado CN 45 [facility] [address] [facility] [address] [place] [address] Lillian NULL [facility] [address] [facility] [address] [phone] Tamara Myers, MSN, CULTURAL CENTRE MANAGER, CNM [place] 27[address]99 [address] [facility] [address] [address] [facility] [address] Antoinette Macdonald CNM [address] [place] [address] Gemma Benson CNM [address] [place] [address] [phone] ACTIVITY LIMITATIONS: ( )Up and about as [...] encounter documented in this encounter Care Teams Beet End Supervisor Relationship Specialty Start Date End Date Armen Sánchez DO [address] [place] [address] PCP - General Family Medicine 04/27/24 documented as of this encounter
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
[2024-09-24 16:11] VITALS: TEMP 35.3
--- OUTSIDE RECORDS SUMMARY | 2024-09-24 16:11 | XMS_ITS | CCD ---
Demographics Address [address] [place] [address] Home Phone Mobile Phone Preferred Language en Marital Status Single Sabianist Affiliation Unknown Race White Ethnic Group Not or Lati no Author Organization [facility] Inform ion [facility] Care Team Providers Care Export Packer Name Role Phone SHEYCLAIRE Referring Unavailable FURLONG, ARMEN Steele Referring Unavailable FURLONG, AMREN Steele Primary Care Unavailable HAJA OSULLIVAN Admitting Unavailable HAJA OSULLIVAN Attending Unavailable NATALIIANG, ARMEN Steele Primary Care Unavailable HAJA OSULLIVAN Attending Unavailable HAJA OSULLIVAN Referring Unavailable FURLONG, ARMEN Steele Primary Care Unavailable Unavailable Primary Care Provider Unavailjob e Armen Street DO Primary Care Provider Furlong DOArmen Primary Care Provider [facility], Emi K Unavailable [phone] MD Primary Care Provider [phone] Unavailable Primary Care Provider UnavailArmen Rodriguez MD Primary Care Provider Masoodlong Armen [place] Primary Care Provider [phone] Attending Unavailable MASOODLONGARMEN Referring Unavailable [...] mouth once daily. Active polyethylene glycol 3350 12301 mg powder for oral solution (20 sources) [...] in 24 hours. 21 day ethinyl estradiol 0.074459 mg/hr / etonogestrel 0.005 mg/hr vaginal system [...] Reference Range Facility OB CERVICAL LENGTHon 09-03 [place] [address] Ultrasound Report Signed Patient: SAPNA SERRANO MR#: [id number] : 1995 Acct:[id number] Age/Sex: 29 / F ADM Date: 09/21/24 Loc: US Attending Dr: Curtis Paez D.O. Ordering Physician: Curtis Paez D.O. Date of Service: 09/21/24 Procedure(s): US OB cervical length Accession Number(s): [id number] cc: [address] Corey D.O. [address] [address] Patient Name: SAPNA SERRANO MRN: [id number] date: 1995 Sex: F Assigned Patient Location: US Current Patient Location: US Accession/Order Number: [id number] Exam Date: 09/21/2024 14:39 Report Date: 09/21/2024 [...] Jr., D.O. 09/21/2024 2:40 PM Dictation Location: [facility] Electronically authenticated by: [id number] Y Date: 09/21/2024 14:40 Dictated By: Hugo Atkins M.D. Signed By: 09/21/24 1443 DD/ 1440 TD/TT: Lactation Coordinator: [facility] Radiology, Radiologist, MD - 09/21/2024 [place] [address] Ultrasound Report Signed Patient: SAPNA SERRANO MR#: [id number] : 1995 Acct:[id number] Age/Sex: 29 / F ADM Date: 09/21/24 Loc: US Attending Dr: Curtis Paez D.O. Ordering Physician: Curtis Paez D.O. Date of Service: 09/21/24 Procedure(s): US OB cervical length Accession Number(s): [id number] cc: [address] Corey D.O. The [place] [id number] Patient Name: SAPNA SERRANO MRN: [facility]:[id number] date: 1995 Sex: F Assigned Patient Location: US Current Patient Location: US Accession/Order Number: [id number] Exam Date: 09/21/2024 14:39 Report Date: 09/21/2024 [...] Jr., D.O. 09/21/2024 2:40 PM Dictation Location: [employer] Electronically authenticated by: [id number] Y Date: 09/21/2024 14:40 Dictated By: Hugo Atkins M.D. Signed By: 09/21/24 144 DD/ 144 TD/TT: Lactation Coordinator: [facility] Radiology Study observation (narrative) [facility] US OB CERVICAL LENGTHOrdered By: Radiologist Radiology on 09-21-2024 [facility] [employer] Work Phone: US OB PLACENTAon 09-21-2024 [place] [address] Ultrasound Report Signed Patient: SAPNA SERRANO MR#: [id number] : 1995 Acct:[id number] Age/Sex: 29 / F ADM Date: 09/21/24 Loc: US Attending Dr: Curtis Paez D.O. Ordering Physician: Curtis Paez D.O. Date of Service: 09/21/24 Procedure(s): US OB placenta Accession Number(s): [id number] cc: [address] Corey D.O. [place] [address] Patient Name: SAPNA SERRANO MRN: [id number] date: 1995 Sex: F Assigned Patient Location: Current Patient Location: US Accession/Order Number: [id number] Exam Date: 09/21/2024 14:41 Report Date: 09/21/2024 [...] Jr., D.O. 09/21/2024 2:53 PM Dictation Location: [place] [address] Electronically authenticated by: [id number] Y Date: 09/21/2024 14:53 Dictated By: Hugo Atkins M.D. Signed By: 09/21/24 1456 DD/ 1453 TD/TT: Lactation Coordinator: [facility] Radiology, Radiologist, MD - 09/21/2024 [place] [address] Ultrasound Report Signed Patient: SAPNA SERRANO MR#: [id number] : 1995 Acct:[id number] Age/Sex: 29 / F ADM Date: 09/21/24 Loc: US Attending Dr: Curtis Paez D.O. Ordering Physician: Curtis Paez D.O. Date of Service: 09/21/24 Procedure(s): US OB placenta Accession Number(s): [id number] cc: [address] ; Curtis Paez D.O. The [address] [address] Patient Name: SAPNA SERRANO MRN: [facility]:[id number] date: 1995 Sex: F Assigned Patient Location: US Current Patient Location: US Accession/Order Number: [id number] Exam Date: 09/21/2024 14:41 Report Date: 09/21/2024 [...] Jr., D.O. 09/21/2024 2:53 PM Dictation Location: [place] [address] Electronically authenticated by: [id number] Y Date: 09/21/2024 14:53 Dictated By: Hugo Atkins M.D. Signed By: 09/21/24 1456 DD/ 1453 TD/TT: Lactation Coordinator: [facility] Radiology Study observation (narrative) [facility] OB PLACENTAOrdered By: Ra recio Radiology on 09-21-2024 [facility] [email or web address] Work Phone: US OB 1 OR [...] Eldon Maldonado MD 09/11/24 Final result Normal [facility] ALL CBC WITH AUTO DIFFon BASOPHILS ABSOLUTE AUTO 0.1 [facility] Basophils/100 WBC (Bld) 0.7 % 0.2 - 2.0 % [facility] Eosinophils/100 WBC (Bld) 1.8 % 0.9 - 7.0 % [facility] Erythrocyte distribution width (RBC) [Ratio] 13.7 % 11.0 - 15.0 % [facility] Hematocrit (Bld) [Volume fraction] 38.8 % 36.0 - 48.0 % [facility] Healthcar e Hemoglobin (Bld) [Mass/Vol] 13 g/dL 12.0 - 16.0 g/dL [facility] IMMATURE GRANULOCYTES ABS AUTO 0.06 High [facility] Immature granulocytes/100 WBC (Bld) 0.5 % 0.0 - 0.5 % [facility] Interpretation and review of laboratory results Abnormal [facility] LYMPHOCYTES ABSOLUTE AUTO 2.1 [facility] Lymphocytes/100 WBC (Bld) 17.6 % Low 20.5 - 60.0 % [facility] MCH (RBC) [Entitic mass] 30.1 pg 26.7 - 34.0 pg [facility] MCHC (RBC) [Mass/Vol] 33.5 g/dL 29.9 - 35.2 g/dL [facility] MCV (RBC) [Entitic vol] 89.8 fL 81.0 - 99.0 fL [facility] MONOCYTES ABSOLUTE AUTO 0.7 [facility] Monocytes/100 WBC (Bld) 6 % 1.7 - 12.0 % [facility] NEUTROPHILS ABSOLUTE AUTO 8.6 High [facility] Neutrophils/100 WBC (Bld) 73.4 % 43.0 - 75.0 % [facility] Platelet mean volume (Bld) [Entitic vol] 9.6 [...] paperwork completed: yes Educational handouts given: no [facility] [email or web address] [facility] SEND OUT TESTon 07-28-2024 SENT TO [facility] VIA [employer] [id number] [facility] Comment on above: Result Comment: Miki ected on 07/28 AT 1418: Previously reported as [facility] [employer] [phone] SENT TO [facility]IA [employer] [phone] [facility] Comment on above: Result Comment: Miki ected on 07/28 AT 1418: Previously reported as [facility] [employer] [id number] SPECIMEN 3 MATERNAL AMNIOTIC FLUID 2 EDTA AND 1 SODIUM HEP MATERNAL Normal [facility] TEST NAME: KNOWN MUTATION ANALYSIS CFTR GENE Normal [facility] TEST NAME: MATERNAL CELL CONTAMINATION Normal [facility] TEST RESULT See separate report. View in [employer] or in [employer]. Normal [facility] AFP, SERUM, OPEN SPINA BIFID Aon 07-08-2024 AFP MOM 0.85 . [facility] AFP VALUE 28.4 ng/mL . [facility] COMMENT: Comment . [facility] HealthExperenti e Comment on above: Joan Shetty , Ph.D., [facility] Director References: Available Upon Request. Multiples Of Median Cutoffs For AFP Elevations [place]ont 2.5 Black 2.8 IDD 2.0 Twins 4.5 Abbreviation Definitions IDD - Insulin Dep Diabetes OSBR - Open Spina Bifida Risk For further inquiries contact [facility] at [phone]. This test was developed and its performance characteristics determined by [employer]. It has not been cleared or approved by the Food and Drug Administration. Performed at: [facility] [address] [place], [place] [id number] Pbx Teacher: Sonja Esposito [facility], Phone: [phone] GEST. AGE ON COLLECTION DATE 17.1 . weeks [facility] GESTAT. AGE BASED ON LMP . [facility] Comment on above: Recalculations are n ot recommended when gestational dating by LMP and ultrasound are within 10 days. INSULIN DEP DIABETES No . [facility] INTERPRETATION Comment . [facility] Comment on above: Interpretation: Scre en [...] Customer Services to discuss available options. The [employer] recommends amniocentesis be offered to women age 35 and older. [age] [facility] MULTIPLE GESTATION No . [facility] H ealthcare OSBR RISK [address] [place] [phone] . [facility] wong RACE . [facility] Healthcar e RESULTS Report . [facility] e TEST RESULTS: Negative . [facility] WEIGHT 186 . lbs [facility] e N N LMP [id number] 1 17 N 1 Y 186 N N N N N White/ [facility] e RECURRENT VAGINITIS (HTRX)on 07-07-2024 ATOPOBIUM VAGINAE [address] [facility] ATOPOBIUM VAGINAE Not detected [facility] BVAB 2,3 (BACTERIAL VAGINOSIS ASSOCIATED BACTERIA 2, 3); MOBILUNCUS SPP 0 [facility] BVAB 2,3 (BACTERIAL VAGINOSIS ASSOCIATED BACTERIA 2, 3); MOBILUNCUS SPP Not detected [facility] ILIANA ALBICANS, PARAPSILOSIS, TROPICALIS 0 [facility] ILIANA ALBICANS, PARAPSILOSIS, TROPICALIS Not detected [facility] ILIANA GLABRATA 0 [facility] Hea lthcare ILIANA GLABRATA Not detected [facility] H ealthcare ILIANA KRUSEI 0 [facility] Healt hcare ILIANA KRUSEI Not detected [facility] CHLAMYDIA TRACHOMATIS 22.157 Abnormal [facility] CHLAMYDIA TRACHOMATIS Detected Abnormal [facility] Healthcare ERMB, C; MEFA 26.913 Abnormal [facility] care ERMB, C; MEFA Detected Abnormal [facility] care GARDNERELLA VAGINALIS 0 [facility] GARDNERELLA VAGINALIS Not detected [facility] Interpretation and review of laboratory results Abnormal [facility] MEGASPHAERA (TYPES 1, 2) 0 [facility] MEGASPHAERA (TYPES 1, 2) Not detected [facility] MYCOPLASMA GENITALIUM 0 [facility] MYCOPLASMA GENITALIUM Not detected [facility] NEISSERIA GONORRHOEAE 0 [facility] NEISSERIA GONORRHOEAE Not detected [facility] TET B, TET M 23.614 Abnormal [facility] Healthc are TET B, TET M Detected Abnormal [facility] Healthc are TRICHOMONAS VAGINALIS 0 [facility] TRICHOMONAS VAGINALIS Not detected [facility] Urinalysis macro (dipstick) panel (U)on 07-06-2024 Bilirubin, UA Negative Negative - 4(70) +++ mg/dL [facility] Blood, UA Negative Negative - 50 Koby/mcL [facility] Clarity, UA [facility] re Color, UA Yellow [facility] Healthcar e Glucose, UA Negative Negative - 1999(110) ++++ mg/dL [facility] Interpretation and review of laboratory results Abnormal [facility] Ketones, UA Positive Negative - 160(16) ++++ mg/dL [facility] Comment on above: trace Leukocytes, UA Trace Negative - 500+++ Danny/mcL [facility] Nitrite, UA Negative Negative - Positive [facility] pH, UA 6 5 - 9 [facility] Healthcar e Protein, UA Trace Negative - 1999(20) ++++ mg/dL [facility] Spec Grav, UA 1.03 1 - 1.03 [facility] Urobilinogen, UA 0.2 0.2 - 12 mg/dL [facility] US OB CERVICAL LENGTHon 04- The [address] [address] Ultrasound Report Signed Patient: SAPNA SERRANO MR#: [id number] : 1995 Acct:[id number] Age/Sex: 28 / F ADM Date: 07/05/24 Loc: US Attending Dr: Curtis Paez D.O. Ordering Physician: Curtis Paez D.O. Date of Service: 07/05/24 Procedure(s): US OB cervical length Accession Number(s): [id number] cc: [address] ; Curtis Paez D.O. The [place] [address] Patient Name: SAPNA SERRANO MRN: [facility]:[id number] date: 1995 Sex: F Assigned Patient Location: US Current Patient Location: US Accession/Order Number: [id number] Exam Date: 07/05/2024 08:08 Report Date: 07/05/2024 [...] Laura Rahman M.D.07/05/2024 8:10 AM Dictation Location: [place] [address] Electronically authenticated by: [id number] Y Date: 07/05/2024 08:10 Dictated By: Laura Rahman M.D. Signed By: 07/05/24812 DD/ 9 TD/TT: Lactation Coordinator: [facility] Radiology, Radiologist, - 07/05/2024 [place] [address] Ultrasound Report Signed Patient: SAPNA SERRANO MR#: [id number] : 1995 Acct:[id number] Age/Sex: 28 / F ADM Date: 07/05/24 Loc: US Attending Dr: Curtis Paez D.O. Ordering Physician: Curtis Paez D.O. Date of Service: 07/05/24 Procedure(s): US OB cervical length Accession Number(s): [id number] cc: [address] ; Curtis Paez D.O. [place] [address] Patient Name: SAPNA SERRANO MRN: [id number] date: 1995 Sex: F Assigned Patient Location: US Current Patient Location: US Accession/Order Number: [id number] Exam Date: 07/05/2024 08:08 Report Date: 07/05/2024 [...] Laura Rahman M.D.07/05/2024 8:10 AM Dictation Location: [place] [address] Electronically authenticated by: [id number] Y Date: 07/05/2024 08:10 Dictated By: Laura Rahman M.D. Signed By: 07/05/24812 DD/ 9 TD/TT: Lactation Coordinator: [facility] Radiology Study observation (narrative) [facility] US OB CERVICAL LENGTHOrdered By: Radiologist Radiology on 07-05-2024 [facility] [email or web address] Work Phone: Urinalysis macro (dipstick) panel (U)on 06-08-2024 Bilirubin, UA Negative Negative - 4(70) +++ mg/dL [facility] Blood, UA Negative Negative - 50 Koby/mcL [facility] Clarity, UA [facility] re Color, UA Yellow [facility] Healthcar e Glucose, UA Negative Negative - 1999(110) ++++ mg/dL [facility] Interpretation and review of laboratory results Normal [facility] Ketones, UA Negative Negative - 160(16) ++++ mg/dL [facility] Leukocytes, UA Negative Negative - 500+++ Danny/mcL [facility] Nitrite, UA Negative Negative - Positive [facility] pH, UA 6 5 - 9 [facility] e Protein, UA Negative Negative - 1999(20) ++++ mg/dL [facility] Spec Grav, UA 1.02 1 - 1.03 [facility] Urobilinogen, UA 0.2 0.2 - 12 mg/dL [facility] Health[facility] e ALL CBC WITH AUTO DIFFon BASOPHILS ABSOLUTE AUTO 0.1 [facility] Basophils/100 WBC (Bld) 0.6 % 0.2 - 2.0 % [facility] Eosinophils/100 WBC (Bld) 1.7 % 0.9 - 7.0 % [facility] Erythrocyte distribution width (RBC) [Ratio] 13.2 % 11.0 - 15.0 % [facility] Hematocrit (Bld) [Volume fraction] 41.1 % 36.0 - 48.0 % [facility] Hemoglobin (Bld) [Mass/Vol] 13.5 g/dL 12.0 - 16.0 g/dL [facility] IMMATURE GRANULOCYTES ABS AUTO 0.05 High [facility] Immature granulocytes/100 WBC (Bld) 0.5 % 0.0 - 0.5 % [facility] Interpretation and review of laboratory results Abnormal [facility] LYMPHOCYTES ABSOLUTE AUTO 1.9 [facility] Lymphocytes/100 WBC (Bld) 17 % Low 20.5 - 60.0 % [facility] MCH (RBC) [Entitic mass] 29.6 pg 26.7 - 34.0 pg [facility] MCHC (RBC) [Mass/Vol] 32.8 g/dL 29.9 - 35.2 g/dL [facility] MCV (RBC) [Entitic vol] 90.1 fL 81.0 - 99.0 fL [facility] MONOCYTES ABSOLUTE AUTO 0.8 [facility] Monocytes/100 WBC (Bld) 7 % 1.7 - 12.0 % [facility] NEUTROPHILS ABSOLUTE AUTO 8.1 High [facility] Neutrophils/100 WBC (Bld) 73.2 % 43.0 - 75.0 % [facility] Platelet mean volume (Bld) [Entitic vol] 9.6 fL 9.5 - 13.5 fL [facility] Healthc are TBH EO # 0.2 [facility] PLT 312 [facility] TB RBC 4.56 [facility] TB WBC 11.1 High [facility]car e [facility] e BOX TESTon 05-17-2024 BOX TEST SENT OUT [facility] althcare [address]OX[address] UNITY [facility] Healthcar e BOX2 05/17/24 [facility] e UNITY BOX [facility] Health[facility] e HCG ( test) Ql (U)o n 05-05-2024 Interpretation and review of laboratory results Abnormal [facility] Preg Test, Ur Positive Negative [facility] Urinalysis macro (dipstick) panel (U)on 05-05-2024 Bilirubin, UA Negative Negative - 4(70) +++ mg/dL [facility] Blood, UA Negative Negative - 50 Koby/mcL [facility] Clarity, UA [facility] re Color, UA Yellow [facility] e Glucose, UA Negative Negative - 1999(110) ++++ mg/dL [facility] Interpretation and review of laboratory results Abnormal [facility] Ketones, UA Negative Negative - 160(16) ++++ mg/dL [facility] Leukocytes, UA Negative Negative - 500+++ Danny/mcL [facility] Nitrite, UA Negative Negative - Positive [facility] pH, UA 7 5 - 9 [facility] e Protein, UA Positive Negative - 1999(20) ++++ mg/dL [facility] Comment on above: 30 Spec Grav, UA 1.02 1 - 1.03 [facility] Urobilinogen, UA 0.2 0.2 - 12 mg/dL [facility] Basic Metabolic Panelon 04-06 Anion gap [Moles/Vol] 12 mmol/L 9 - 16 mmol/L [facility] Calcium [Mass/Vol] 9.1 mg/dL 8.6 - 10. 4 mg/dL [facility] Chloride [Moles/Vol] 102 mmol/L 98 - 10 7 mmol/L [facility] CO2 [Moles/Vol] 23 mmol/L 20 - 31 mmol/L [facility] Creatinine [Mass/Vol] 0.5 mg/dL 0.50 - 0.90 mg/dL [facility] Est, Tom Hogan Rate - PINF [facility] Comment on above: These results are [...] mg/dL Low 74 - 99 mg/dL [facility] Interpretation and review of laboratory results Abnormal [facility] Potassium [Moles/Vol] 3.8 mmol/L 3.7 - 5.3 mmol/L [facility] Sodium [Moles/Vol] 137 mmol/L 136 - 145 mmol/L [facility] Urea nitrogen [Mass/Vol] 9 mg/dL 6 - 20 mg/dL [facility] Urea nitrogen/Creatinine [Mass ratio] 18 mg/mg 9 - 20 [facility] Basic Metabolic Profon 04-27 Anion gap [Moles/Vol] 12 mmol/L Normal - [facility] Comment on above: Performed By: #### B JACQUELIN, CDP #### [facility] [address] [place] [address] Pbx Teacher: Gal Katz MD BUN/CRE Ratio 18 Normal - [facility] Comment on above: Performed By: #### B JACQUELIN, CDP #### [facility] [address] [place] [address] Pbx Teacher: Gal Katz MD Calcium [Mass/Vol] 9.1 mg/dL Normal 8.6-10.4 [facility] Comment on above: Performed By: #### B JACQUELIN, CDP #### [facility] [address] [place] [address] Pbx Teacher: Gal Katz MD Chloride [Moles/Vol] 102 mmol/L Normal 98-107 [facility] Comment on above: Performed By: #### B JACQUELIN, CDP #### [facility] [address] [place] [address] Pbx Teacher: Gal Katz MD CO2 [Moles/Vol] 23 mmol/L Normal 20-31 [facility] Comment on above: Performed By: #### B JACQUELIN, CDP #### [facility] [address] [place] [address] Pbx Teacher: Gal Katz MD Creatinine [Mass/Vol] 0.5 mg/dL Normal 0.50-0.90 [facility] Comment on above: Performed By: #### B JACQUELIN, CDP #### [facility] [address] [place] [address] Pbx Teacher: Gal Katz MD GFR/1.73 sq M.predicted among non-blacks MDRD (S/P/Bld) [Vol rate/Area] mL/min/{1.73_m2} Normal >60 [facility] Comment on above: Result Comment: These [...] Performed By: #### B JACQUELIN, CDP #### [facility] [address] [place] [address] Pbx Teacher: Gal Katz MD Glucose [Mass/Vol] 66 mg/dL Low 74-99 [facility] Comment on above: Performed By: #### B JACQUELIN, CDP #### [facility] [address] [place], [place] [id number] Pbx Teacher: Gal Katz MD Potassium [Moles/Vol] 3.8 mmol/L Normal 3.7-5.3 [facility] Comment on above: Performed By: #### B JACQUELIN, CDP #### [facility] [address] [place], [place] [id number] Pbx Teacher: Gal Katz MD Sodium [Moles/Vol] 137 mmol/L Normal 136-145 [facility] Comment on above: Performed By: #### B JACQUELIN, CDP #### [facility] [address] [place] [address] Pbx Teacher: Gal Katz MD Urea nitrogen [Mass/Vol] 9 mg/dL Normal 6-20 [facility] Comment on above: Performed By: #### B JACQUELIN, CDP #### [facility] [address] [place], [place] [id number] Pbx Teacher: Gal Katz MD CBC with Auto Differentialon 04-27-2024 Basophils (Bld) [#/Vol] 0.09 10*3/uL [facility] Basophils/100 WBC (Bld) 1 % 0 - 2 % [facility] Eosinophils (Bld) [#/Vol] 0.17 10*3/uL [facility] Eosinophils/100 WBC (Bld) 2 % 1 - 4 % [facility] Erythrocyte distribution width (RBC) [Ratio] 12.7 % 11.8 - 14.4 % [facility] Hematocrit (Bld) [Volume fraction] 41.1 % 36.3 - 47.1 % [facility] Hemoglobin (Bld) [Mass/Vol] 14.0 g/dL 11.9 - 15.1 g/dL [facility] Immature granulocytes (Bld) [#/Vol] 0.04 10*3/uL [facility] Immature granulocytes/100 WBC (Bld) 0 % 0 [facility] Interpretation and review of laboratory results Abnormal [facility] Lymphocytes/100 WBC (Bld) 20 % Low 24 - 43 % [facility] Lymphocytes/100 WBC (Bld) 2.31 % [facility] MCH (RBC) [Entitic mass] 30.1 pg 25.2 - 33.5 pg [facility] MCHC (RBC) [Mass/Vol] 34.1 g/dL 28.4 - 34.8 g/dL [facility] MCV (RBC) [Entitic vol] 88.4 fL 82.6 - 102.9 fL [facility] Monocytes/100 WBC (Bld) 8 % 3 - 12 % [facility] Monocytes/100 WBC (Bld) 0.90 % [facility] Neutrophils/100 WBC (Bld) 69 % High 36 - 65 % [facility] Nucleated RBC/100 WBC (Bld) [Ratio] 0.0 % 0.0 per 100 WBC [facility] Platelet mean volume (Bld) [Entitic vol] 9.4 fL 8.1 - 13.5 fL [facility] Platelets (Bld) [#/Vol] 327 10*3/uL [facility] RBC (Bld) [#/Vol] 4.65 10*6/uL 3.95 - 5.1 1 m/uL [facility] Segmented neutrophils/100 WBC (Bld) 8.09 % [facility] WBC other (Bld) [#/Vol] 11.6 High [facility] CBC with Diffon 04-27-2024 Abs. Basophil 0.09 k/uL Normal 0.00-0.20 [facility] Comment on above: Performed By: #### B JACQUELIN, CDP #### [facility] [address] [place] [address] Pbx Teacher: Gal Katz MD Abs.Imm.Granulocyte 0.04 k/uL Normal 0.00-0.30 [facility] Comment on above: Performed By: #### B JACQUELIN, CDP #### [facility] [address] [place] [address] [place] [place], [place] [id number] Pbx Teacher: Gal Katz MD Abs.Neutrophil (Seg) 8.09 k/uL Normal 1.50-8.10 [facility] Comment on above: Performed By: #### B MP, CDP #### [address] [place], [place] 7207083 Pbx Teacher: Gal Katz MD Basophils/100 WBC (Bld) 1 % Normal 0-2 [facility] Comment on above: Performed By: #### B MP, CDP #### [address] [place], [place] [id number] Pbx Teacher: Gal Katz MD Eosinophils (Bld) [#/Vol] 0.17 10*3/uL Normal 0.00-0.44 [facility] Comment on above: Performed By: #### B MP, CDP #### [address] [place], [place] 3361683 Pbx Teacher: Gal Katz MD Eosinophils/100 WBC (Bld) 2 % Normal 1-4 [facility] Comment on above: Performed By: #### B MP, CDP #### [address] [place], [place] 5015783 Pbx Teacher: Gal Katz MD Erythrocyte distribution width (RBC) [Ratio] 12.7 % Normal 11.8-14.4 [facility] Comment on above: Performed By: #### B MP, CDP #### [address] [place], [place] 1023683 Pbx Teacher: Gal Katz MD Hematocrit (Bld) [Volume fraction] 41.1 % Normal 36.3-47.1 [facility] Comment on above: Performed By: #### B MP, CDP #### [address] [place], [place] 5243883 Pbx Teacher: Gal Katz MD Hemoglobin (Bld) [Mass/Vol] 14.0 g/dL Normal 11.9-15.1 [facility] Comment on above: Performed By: #### B JACQUELIN, CDP #### [facility] [address] [place] [address] Pbx Teacher: Gal Katz MD Immature granulocytes/100 WBC (Bld) 0 % Normal 0 [facility] Comment on above: Performed By: #### B JACQUELIN, CDP #### [facility] [address] [place] [address] Pbx Teacher: Gal Katz MD Lymphocytes (Bld) [#/Vol] 2.31 10*3/uL Normal 1.10-3.70 [facility] Comment on above: Performed By: #### B JACQUELIN, CDP #### [address] [place] [address] Pbx Teacher: Gal Katz MD Lymphocytes/100 WBC (Bld) 20 % Low 24-43 [facility] Comment on above: Performed By: #### B JACQUELIN, CDP #### [address] [place] [address] Pbx Teacher: Gal Katz MD MCH (RBC) [Entitic mass] 30.1 pg Normal 25.2-33.5 [facility] Comment on above: Performed By: #### B JACQUELIN, CDP #### [address] [place] [address] Pbx Teacher: Gal Katz MD MCHC (RBC) [Mass/Vol] 34.1 g/dL Normal 28.4-34.8 [facility] Comment on above: Performed By: #### B JACQUELIN, CDP #### [address] [place] [address] Pbx Teacher: Gal Katz MD MCV (RBC) [Entitic vol] 88.4 fL Normal 82.6-102.9 [facility] Comment on above: Performed By: #### B MP, CDP #### [address] [place] [address] Pbx Teacher: Gal Katz MD Monocytes (Bld) [#/Vol] 0.90 10*3/uL Normal 0.10-1.20 [facility] Comment on above: Performed By: #### B MP, CDP #### [address] [place], [place] 6430083 Pbx Teacher: Gal Katz MD Monocytes/100 WBC (Bld) 8 % Normal 3-12 [facility] Comment on above: Performed By: #### B MP, CDP #### [address] [place], [place] [id number] Pbx Teacher: Gal Katz MD Neutrophil (Seg) 69 % High 36-[address] [facility] Comment on above: Performed By: #### B JACQUELIN, CDP #### [address] [place], [place] 0792383 Pbx Teacher: Gal Katz MD NRBC Automated 0.0 per 100 WBC Normal 0.0 [facility] Comment on above: Performed By: #### B JACQUELIN, CDP #### [address] [place], [place] 3414583 Pbx Teacher: Gal Katz MD Platelet mean volume (Bld) [Entitic vol] 9.4 fL Normal 8.1-13.5 [facility] Comment on above: Performed By: #### B JACQUELIN, CDP #### [address] [place] [address] Pbx Teacher: Gal Katz MD Platelets (Bld) [#/Vol] 327 10*3/uL Normal 138-453 [facility] Comment on above: Performed By: #### B MP, CDP #### [facility] [address] [place], [place] 6323783 Pbx Teacher: Gal Katz MD RBC (Bld) [#/Vol] 4.65 10*6/uL Normal 3.95-5.11 [facility] Comment on above: Performed By: #### B MP, CDP #### [facility] [address] [place] [address] Pbx Teacher: Gal Katz MD WBC (Bld) [#/Vol] 11.6 10*3/uL High 3.5-11.3 [facility] Comment on above: Performed By: #### B MP, CDP #### [facility] [address] [place] [address] [place]. [place], [place] [id number] Pbx Teacher: Gal Katz MD HCG, Quanton 04-27-2024 HCG, Quant 76873.0 mIU/mL High 0-7 [facility] Comment on above: Result Comment: Non-preg premeno <=5 Postmeno <=8 Male <=3 If HCG results do not concur with clinical observations, additional testing to confirm results is recommended. Performed By: #### B HCG #### [facility] [address] [place] [address] [place]. [place], [place] [phone] Pbx Teacher: Gal Katz MD HCG, Quantitative, on 04-27-2024 [place] 15192.0 m[IU]/mL [facility] Comment on above: Non-preg premeno <=5 Postmeno <=8 Male <=3 If HCG results do not concur with clinical observations, additional testing to confirm results is recommended. Interpretation and review of laboratory results Abnormal [facility] TYPE AND SCREENon 04-27-2024 ABO and Rh group Nom (Bld) Blood group A Rh(D) positive [facility] Arm Band Number [id number] [facility] Blood Bank Sample Expiration 04/30/2024,2359 [facility] Blood group antibodies identified Nom Negative [facility] + Screenon 04-27-2024 Type + Screen Sample Expiration 04/30/2024,2359 Arm Band Number [id number] ABO/Rh(D) A POSITIVE Antibody Screen NEGATIVE Normal [facility] Comment on above: Performed By: #### T YS #### [facility] [address] [place] [address] Pbx Teacher: Gla Katz MD US OB LESS THAN 14 [...] Onur Mack MD 04/27/24 Final result Normal [facility] Single viable intrauterine with an estimated [...] gas No adnexal mass or free fluid. [facility] EXAMINATION: FIRST TRIMESTER OBSTETRIC ULTRASOUND 04/27/2024 [...] adnexal mass or free fluid is seen. [facility] Onur Mack MD - 04/27/2024 EXAMINATION: [...] No adnexal mass or free fluid. [facility] Radiology Study observation (narrative) [facility] US OB LESS THAN 14 WEEKS SIN GLE OR FIRST GESTATION W DOPPLEROrdered By: Onur Mack on 04-27-2024 [facility] Work Phone: Urinalysis w/ Microon 2024 Bacteria 1+ Abnormal NONE [facility] Comment on above: Performed By: #### U AMIC #### [facility] [address] [place] [address] [place] [address] Pbx Teacher: Gal Katz MD Bilirubin, SemiQt,Ur Negative Normal NEG [facility] Comment on above: Performed By: #### U AMIC #### [facility] [address] [place] [address] Pbx Teacher: Gal Katz MD Blood, Urine 1+ Abnormal NEG [facility] Comment on above: Performed By: #### U AMIC #### [facility] [address] [place], [place] 0498583 Pbx Teacher: Gal Katz MD Clarity (U) SLIGHTLY CLOUDY Abnormal CLEAR [facility] Comment on above: Performed By: #### U AMIC #### [facility] [address] [place] [address] Pbx Teacher: Gal Katz MD Color (U) Yellow Normal YEL [facility] Comment on above: Performed By: #### U AMIC #### [facility] [address] [place] [address] Pbx Teacher: Gal Katz MD Epithelial cells LM Ql (Urine sed) 20 TO 50 Normal 0-25 [facility] Comment on above: Performed By: #### U AMIC #### [facility] [address] [place] [address] [place]. [place], [place] 0985383 Pbx Teacher: Gal Katz MD Glucose Ql (U) Negative Normal NEG [facility] Comment on above: Performed By: #### U AMIC #### [facility] [address] [place] [address] [place], [place] 5349383 Pbx Teacher: Gal Katz MD Ketones Ql (U) Negative Normal NEG [facility] Comment on above: Performed By: #### U AMIC #### [facility] [address] [place] [address] [place], [place] 8799383 Pbx Teacher: Gal Katz MD Leukocyte esterase Test strip Ql (U) Negative Normal NEG [facility] Comment on above: Performed By: #### U AMIC #### [facility] [address] [place] [address] [place], [place] 8462883 Pbx Teacher: Gal Katz MD Nitrite,Ur Negative Normal NEG [facility] Comment on above: Performed By: #### U AMIC #### [facility] [address] [place] [address] [place], [place] 0403783 Pbx Teacher: Gal Katz MD PH,Ur 6.0 Normal 5.0-9.0 [facility] Comment on above: Performed By: #### U AMIC #### [facility] [address] [place] [address] [place] [address] Pbx Teacher: Gal Katz MD Protein Ql (U) Negative Normal NEG [facility] Comment on above: Performed By: #### U AMIC #### [address] [place], [place] 0489383 Pbx Teacher: Gal Katz MD Spec. [place],Ur 1.025 High 1.010-1.020 [facility] Comment on above: Performed By: #### U AMIC #### [facility] [address] [place] [address] [place], [place] 4523983 Pbx Teacher: Gal Katz MD Urine RBC's 2 TO 5 Normal 0-2 [facility] Comment on above: Performed By: #### U AMIC #### [facility] [address] [place], [place] 2567483 Pbx Teacher: Gal Katz MD Urine WBC's 2 TO 5 Normal 0-5 [facility] Comment on above: Performed By: #### U AMIC #### [facility] [address] [place], [place] 1023183 Pbx Teacher: Gal Katz MD Urobilinogen,Ur Normal Normal 0.0-1.0 [facility] Comment on above: Performed By: #### U AMIC #### [facility] [address] [place] [address] Pbx Teacher: Gal Katz MD Urinalysis with Microscopico n 04-27-2024 Bacteria LM Ql (Urine sed) 1+ Abnormal None [facility] Bilirubin Ql (U) Negative NEGATIVE [facility] Clarity (U) SLIGHTLY CLOUDY Abnormal Clear [facility] Color (U) Yellow Yellow [facility] Epithelial cells LM.HPF (Urine sed) [#/Area] 20 TO 50 [facility] Glucose Test strip (U) [Mass/Vol] Negative NEGATIVE mg/dL [facility] Hemoglobin Auto test strip Ql (U) 1+ Abnormal NEGATIVE [facility] Interpretation and review of laboratory results Abnormal [facility] Ketones (U) [Mass/Vol] Negative NEGATIVE mg/dL [facility] Leukocyte esterase Test strip Ql (U) Negative NEGATIVE [facility] Nitrite Ql (U) Negative NEGATIVE [place] [facility] pH (U) 6.0 [pH] 5.0 - 9.0 [facility] Protein (U) [Mass/Vol] Negative NEGATIVE mg/dL [facility] RBC LM.HPF (Urine sed) [#/Area] 2 TO 5 [facility] Specific gravity (U) [Rel density] 1.025 High 1.010 - 1.020 [facility] Urobilinogen Qn (U) Normal 0.0 - 1. 0 EU/dL [facility] WBC LM.HPF (Urine sed) [#/Area] 2 TO 5 [facility] COMPLETE BLOOD COUNTon 09-26 Erythrocyte distribution width (RBC) [Ratio] 13.7 % Normal 11.5-15.0 [facility] Comment on above: Performed By: #### Puneet BERNARD CMP, 64733-8, TSHR #### [facility] ([id number]) [address] [address] [place] [address] Hematocrit (Bld) [Volume fraction] 44.4 % Normal 35-47 [facility] Comment on above: Performed By: #### Puneet BERNARD CMP, 45712-1, TSHR #### [facility] ([id number]) [address] [place] [address] Hemoglobin (Bld) [Mass/Vol] 15.1 g/dL Normal 11.7-15.5 [facility] Comment on above: Performed By: #### Puneet BERNARD CMP, 45896-9, TSHR #### [facility] ([id number]) [address] [address] [place] [address] MCH (RBC) [Entitic mass] 29.8 pg Normal 27-34 [facility] Comment on above: Performed By: #### Puneet BERNARD CMP, 62485-5, TSHR #### [facility] ([id number]) [address] [address] [place] [address] MCHC (RBC) [Mass/Vol] 34.0 g/dL Normal 32-36 [facility] Comment on above: Performed By: #### Puneet BERNARD CMP, 61489-3, TSHR #### [facility] ([id number]) [address] [address] [place] [address] MCV (RBC) [Entitic vol] 88 fL Normal 80-100 [facility] Comment on above: Performed By: #### Puneet BERNARD CMP, 52949-3, TSHR #### [facility] ([id number]) [address] [place] [address] Platelet mean volume (Bld) [Entitic vol] 8.5 fL Normal 7-12 [facility] Comment on above: Performed By: #### Puneet BERNARD CMP, 00115-1, TSHR #### [facility] ([id number]) [address] [place] [address] Platelets (Bld) [#/Vol] 302 10*3/uL Normal 150-450 [facility] Comment on above: Performed By: #### Puneet BERNARD CMP, 48081-9, TSHR #### [facility] ([id number]) [address] [place] [address] RBC COUNT 5.07 X10E12/L Normal 3.80-5.20 [facility] Comment on above: Performed By: #### Puneet BERNARD CMP, 29131-8, TSHR #### [facility] ([id number]) [address] [place] [address] WBC (Bld) [#/Vol] 6.1 10*3/uL Normal 4.0-11.0 [facility] Comment on above: Performed By: #### Puneet BERNARD CMP, 76577-9, TSHR #### [facility] ([id number]) [address] [place] [address] COMPREHENSIVE METABOLIC PANE Hermelindo 09-27-2023 Albumin [Mass/Vol] 4.4 g/dL Normal 3.2-5.3 [facility] Comment on above: Performed By: #### Puneet BERNARD CMP, 12834-2, TSHR #### [facility] ([id number]) [address] [place] [address] ALP [Catalytic activity/Vol] 62 U/L Normal 39-130 [facility] Comment on above: Performed By: #### Puneet BC, CMP, 33121-5, TSHR #### [facility] ([id number]) [address] [place] [address] ALT [Catalytic activity/Vol] 19 U/L Normal 0-31 [facility] Comment on above: Performed By: #### Puneet BERNARD, CMP, 43631-5, TSHR #### [facility] ([id number]) [address] [place] [address] Anion gap [Moles/Vol] 9 mmol/L Normal 5-15 [facility] Comment on above: Performed By: #### Puneet BERNARD, CMP, 61021-2, TSHR #### [facility] ([id number]) [address] [place] [address] AST [Catalytic activity/Vol] 19 U/L Normal 0-41 [facility] Comment on above: Performed By: #### Puneet BC, CMP, 08702-4, TSHR #### [facility] ([id number]) [address] [place] [address] Bilirubin [Mass/Vol] 0.7 mg/dL Normal 0.3-1.2 [facility] Comment on above: Performed By: #### Puneet BERNARD, CMP, 16011-5, TSHR #### [facility] ([id number]) [address] [place] [address] Calcium [Mass/Vol] 9.5 mg/dL Normal 8.5-10.5 [facility] Comment on above: Performed By: #### Puneet BC, CMP, 26852-3, TSHR #### [facility] ([id number]) [address] [place] [address] Chloride [Moles/Vol] 106 mmol/L Normal 98-109 [facility] Comment on above: Performed By: #### Puneet BERNARD CMP, 67419-6, TSHR #### [facility] ([id number]) [address] [place] [address] CO2 [Moles/Vol] 24 mmol/L Normal 22-32 [facility] Comment on above: Performed By: #### Puneet BERNARD CMP, 60939-7, TSHR #### [facility] ([id number]) [address] [address] [place] [address] Creatinine [Mass/Vol] 0.75 mg/dL Normal 0.40-1.00 [facility] Comment on above: Result Comment: METH OD TRACEABLE TO IDMS STANDARD Performed By: #### Punete BERNARD CMP, 46563-8, TSHR #### [facility] ([id number]) [address] [place] [address] eGFR (CKD-EPI) NON-RACE DEPENDENT >90 Normal >59 [facility] Comment on above: Result Comment: Reported eGFR is based on the CKD-EPI 2020 equation that does not use a race coefficient. Performed By: #### Puneet BERNARD CMP, 05462-5, TSHR #### [facility] ([id number]) [address] [address] [place] [address] Glucose [Mass/Vol] 70 mg/dL Normal 65-99 [facility] Comment on above: Performed By: #### Puneet BERNARD CMP, 25124-1, TSHR #### [facility] ([id number]) [address] [address] [address] [place] [address] Potassium [Moles/Vol] 4.3 mmol/L Normal 3.5-5.0 [facility] Comment on above: Performed By: #### Puneet BERNARD CMP, 01889-4, TSHR #### [facility] ([id number]) [address] [place] [address] Protein [Mass/Vol] 7.3 g/dL Normal 6.0-8.0 [facility] Comment on above: Performed By: #### Puneet BERNARD, CMP, 31142-8, TSHR #### [facility] ([id number]) [address] [facility] [address] [place] [address] Sodium [Moles/Vol] 139 mmol/L Normal 134-146 [facility] Comment on above: Performed By: #### Puneet BERNARD, CMP, 19069-5, TSHR #### [facility] ([id number]) [address] [address] [place] [address] Urea nitrogen [Mass/Vol] 9 mg/dL Normal 5-23 [facility] Comment on above: Performed By: #### Puneet BERNARD, CMP, 00059-5, TSHR #### [facility] ([id number]) [address] [place] [address] Lipid 1996 panelon 4 Cholesterol [Mass/Vol] 192 mg/dL Normal 150-200 [facility] Comment on above: Performed By: #### Puneet BERNARD, CMP, 05217-6, TSHR #### [facility] ([id number]) [address] [address] [place] [address] Cholesterol in HDL [Mass/Vol] 61 mg/dL Normal >39 [facility] Comment on above: Result Comment: HDL <40 mg/dL - High Risk HDL > or = 40mg/dL- Desirable HDL >60 mg/dL - Negative Risk Performed By: #### Puneet BERNARD, CMP, 97821-6, TSHR #### [facility] ([id number]) [address] [address] [place] [address] Cholesterol in LDL [Mass/Vol] 118 mg/dL Normal <130 [facility] Comment on above: Result Comment: LDL <100 mg/dL - Desirable LDL >160 mg/dL - High Risk Performed By: #### Puneet BERNARD, CMP, 84654-6, TSHR #### [facility] ([id number]) [address] [address] [place] [address] Cholesterol in VLDL [Mass/Vol] 13 mg/dL Normal 0-30 [facility] Comment on above: Performed By: #### Puneet BERNARD, CMP, 76809-8, TSHR #### [facility] ([id number]) [address] [address] CHOLESTEROL:HDL 3.1 Normal 1.0-5.0 [facility] Comment on above: Performed By: #### Puneet BERNARD, CMP, 23372-5, TSHR #### [facility] ([id number]) [address] [address] [place] [address] Triglyceride [Mass/Vol] 64 mg/dL Normal 27-150 [facility] Comment on above: Performed By: #### Puneet BERNARD, CMP, 45104-4, TSHR #### [facility] ([id number]) [address] [address] [place] [address] TSH WITH REFLEXon 09-27-2023 TSH 1.21 uIU/mL Normal 0.49-4.67 [facility] Comment on above: Performed By: #### Puneet BERNARD, CMP, 37604-9, TSHR #### [facility] ([id number]) [address] [address] [place] [address] HCG ( test) Ql (U)o n 09-03-2023 Beta HCG ( test) Ql (U) Negative Normal NEG [facility] Comment on above: Performed By: #### 2 106-3 #### [facility] ([id number]) [address] [facility], [place] [address] Surgical Pathologyon 024 Surgical Pathology Normal [facility] Comment on above: Result Comment: [facility] [address] [place] [address] Surgical Pathology Consultation Patient Name:SAPNA SERRANO:1995 (Age: 28)Gender:FTaken:09/03/2023eported:09/07/2023hysician(s):Haja Osullivan MD ([phone])Copy To: Rec. #:[id number]: #[id number] Final Pathologic Diagnosis Sigmoid colon biopsies: Unremarkable colonic mucosa. No colitis, granuloma or dysplasia identified. No microscopic colitis or inflammatory bowel disease identified. Report Electronically Signed Out ssi/09/07/2023Suharish Hayes M.D. Interpretation performed at [facility], [address] [place] [address], License number: [id number]. Clinical History Rectal bleeding. Gross Description Received in formalin labeled [facility]Jorge, sigmoid BX are eight light cortes soft tissue bits, 0.2-0.4 cm.The specimen is filtered and entirely submitted in a single cassette. (1, ns, [id number],m3) DM. dm/09/04/2023O Specimen(s) Received Sigmoid biopsy Fee Codes(s): 1; 60916 CHLAMYDIA/GC PCR, FLon 08-09 CHLAMYDIA/GC PCR, FL [...] are dependent on adequate specimen collection. Normal [facility] Comment on above: Performed By: #### C GT #### [facility] ([id number]) [address] [facility] [place] [address] [facility] ([id number]) [address] [place] [address], [address] [place] [address] Cytologyon 08-10-2023 Cytology Normal [facility] Comment on above: Result Comment: [facility] [employer] [facility] [address] [place] [address] Gynecologic Cytology Consultation Patient Name:SAPNA SERRANO:1995 (Age: 28)Gender:FTaken:4Reported:08/26/2023hysician(s):Claire Kat M.D. ([phone])Copy To: Rec. #:[id number]: #[id number] Final Cytologic Interpretation ThinPrep Pap Test (Cervical): Satisfactory for evaluation. A transformation zone component is present. NEGATIVE FOR INTRAEPITHELIAL LESION OR MALIGNANCY. Shift in daniella suggestive of bacterial vaginosis. [facility] [place]08/26/2023 Interpretation performed at [facility] [employer], [address] [place] [address], License number: [id number]. Electronically Signed Out By JOSUÉ Kimble(ASCP) Date of Last Menstrual Period: 07/13/23 Other Clinical Conditions: Previous abnormal pap Z01.419 Mitigation Supervisor exam wo/abn findings Source of Specimen ThinPrep Pap Test (Cervical) Thin Prep Pap (ELECTRICIAN REFINERY) Fee Code(s): G0145 The Pap test is a screening test with an inherent, but low, probability of error. The Pap test is primarily effective for the diagnosis and prevention of squamous cell carcinoma. Regular screening is critical for prevention. ThinPrep liquid-based slides, which meet the Jewel Supervisor criteria for automated screening, have been screened by the [employer] (as of 12/20/06) along with an additional manual rescreening by a certified neurodiagnostic technologist and, if indicated, by a pathologist. HIGH RISK HPV W/GENOon 08-09 HPV 31+33+35+39+45+51+52 +56+58+59+66+68 DNA ALLISON+probe Ql (Cvx) HPV SPECIMEN TYPE ThinPrep HPV 16 Negative (qualifier value) HPV 18 Negative (qualifier value) OTHER HIGH RISK HPV Negative (qualifier value) HPV types 31,33,35,39,45,52,56, 58,59,66 and 68 DNA were undetectable. Normal [facility] Comment on above: Performed By: #### 7 1431-1 #### [facility] ([id number]) [address] [facility] [facility], [place] [address] [facility] ([id number]) [address] [facility] [place] [address] POCT , urineon 05 Beta HCG ( test) Ql (U) Negative [facility] Interpretation and review of laboratory results Normal [facility] Vital Signs Date Time Vital Sign Value Performing Clinician Facility 09-10-2024 23:35-0400 Diastolic blood pressure 73 mm[Hg] Victorino D'Abreau DO [facility] 09-10-2024 23:35-0400 Heart rate 75 /min Victorino D'Abreau DO Work Phone: [facility] [employer] 09-10-2024 23:35-0400 Systolic blood pressure 127 mm[Hg] Victorino D'Abreau DO Work Phone: [facility] [employer] 09-10-2024 22:22-0400 Body temperature 98.1 [degF] Victorino D'Abreau DO [facility] 09-10-2024 22:22-0400 Respiratory rate 16 /min Victorino D'Abreau DO [facility] 09-10-2024 22:22-0400 SaO2% (BldA) [Mass fraction] 98 % Victorino Christie DO Work Phone: [facility] 08-30-2024 10:38-0400 Body weight 88.91 kg Jocy YOUNG Work Phone: [facility] 08-30-2024 10:38-0400 Diastolic blood pressure 74 mm[Hg] Jocy YOUNG Work Phone: [facility] 08-30-2024 10:38-0400 Systolic blood pressure 130 mm[Hg] Jocy YOUNG Work Phone: [facility] 08-14-2024 10:57-0400 Body weight 87.91 kg Curtis Jeannine DO Work Phone: [facility] 08-14-2024 10:57-0400 Diastolic blood pressure 70 mm[Hg] Curtis Jeannine DO Work Phone: [facility] 08-14-2024 10:57-0400 Systolic blood pressure 116 mm[Hg] Curtis Jeannine DO Work Phone: [facility] 08-01-2024 13:31-0400 Body weight 85.19 kg Curtis Jeannine DO Work Phone: [facility] 08-01-2024 13:31-0400 Diastolic blood pressure 70 mm[Hg] Curtis Jeannine DO Work Phone: [facility] 08-01-2024 13:31-0400 Systolic blood pressure 120 mm[Hg] Curtis Jeannine DO Work Phone: [facility] 07-28-2024 09:19-0400 Body height 162.6 cm Lyndsey Burns MD Work Phone: [facility] 07-28-2024 09:19-0400 Body mass index (BMI) [Ratio] 32.63 kg/m2 Lyndsey Burns MD Work Phone: [facility] 07-28-2024 09:19-0400 Body weight 86.27 kg Lyndsey Burns MD Work Phone: [facility] 07-28-2024 09:19-0400 Diastolic blood pressure 72 mm[Hg] Lyndsey Burns MD Work Phone: [facility] 07-28-2024 09:19-0400 Heart rate 84 /min Lyndsey Burns MD Work Phone: [facility] 07-28-2024 09:19-0400 Systolic blood pressure 115 mm[Hg] Lyndsey Burns MD Work Phone: [facility] 07-06-2024 09:09-0400 Body weight 84.73 kg Jocy YOUNG Work Phone: [facility] 07-06-2024 09:09-0400 Diastolic blood pressure 72 mm[Hg] Jocy YOUNG Work Phone: [facility] 07-06-2024 09:09-0400 Systolic blood pressure 120 mm[Hg] Jocy YOUNG Work Phone: [facility] 06-08-2024 09:41-0500 Body weight 83.83 kg Curtis Jeannine DO Work Phone: [facility] 06-08-2024 09:41-0500 Diastolic blood pressure 70 mm[Hg] Curtis Jeannine DO Work Phone: [facility] 06-08-2024 09:41-0500 Systolic blood pressure 120 mm[Hg] Curtis Jeannine DO Work Phone: [facility] 05-09-2024 14:22-0500 Body weight 86.09 kg Curtis Jeannine DO Work Phone: [facility] 05-09-2024 14:22-0500 Diastolic blood pressure 72 mm[Hg] Curtis Jeannine DO Work Phone: [facility] 05-09-2024 14:22-0500 Systolic blood pressure 118 mm[Hg] Curtis Jeannine DO Work Phone: [facility] 05-05-2024 10:32-0500 Body weight 83.52 kg [facility] 05-05-2024 10:32-0500 Diastolic blood pressure 78 mm[Hg] [facility] 05-05-2024 10:32-0500 Systolic blood pressure 120 mm[Hg] [facility] 04-27-2024 20:58-0500 SaO2% (BldA) [Mass fraction] 98 % Zully Raya MD Work Phone: [facility] 04-27-2024 17:53-0500 Body height 162.6 cm Zully Raya MD Work Phone: [facility] [employer] 04-27-2024 17:53-0500 Body mass index (BMI) [Ratio] 29.18 kg/m2 Zully Raya MD Work Phone: [facility] 04-27-2024 17:53-0500 Body temperature 98.8 [degF] Zully Raya MD Work Phone[facility] 04-27-2024 17:53-0500 Body weight 77.11 kg Zully Raya MD Work Phone[facility] 04-27-2024 17:53-0500 Diastolic blood pressure 93 mm[Hg] Zully Raya MD Work Phone[facility] 04-27-2024 17:53-0500 Heart rate 90 /min Zully Raya MD Work Phone: [employer] [facility] 04-27-2024 17:53-0500 Respiratory rate 20 /min Zully Raya MD Work Phone: [facility] 04-27-2024 17:53-0500 Systolic blood pressure 150 mm[Hg] Zully Raya MD Work Phone: [facility] 01-27-2024 09:54-0400 Body height 162.6 cm Armenalicia Correiaandra PHOENIX Work Phone: [facility] [employer] [facility] 01-27-2024 09:54-0400 Body mass index (BMI) [Ratio] 28.15 kg/m2 Armen Furlong DO Work Phone: [facility] 01-27-2024 09:54-0400 Body temperature 97.7 [degF] Armen Furlong DO Work Phone: [facility] [employer] 01-27-2024 09:54-0400 Body weight 74.39 kg Armen Furlong DO Work Phone: [facility] [employer] [facility] 01-27-2024 09:54-0400 Diastolic blood pressure 72 mm[Hg] Armen Furlong DO Work Phone: [facility] [employer] 01-27-2024 09:54-0400 Heart rate 89 /min Armen Furlong DO Work Phone: [facility] [employer] 01-27-2024 09:54-0400 Respiratory rate 18 /min Armen Furlong DO Work Phone: [facility] [employer] [facility] 01-27-2024 09:54-0400 SaO2% (BldA) [Mass fraction] 99 % Armen Furlong DO Work Phone: [facility] [employer] 01-27-2024 09:54-0400 Systolic blood pressure 118 mm[Hg] Armen Furlong DO Work Phone: [facility] [employer] [facility] 10-27-2023 10:26-0400 Body height 162.6 cm Armen Furlong DO Work Phone: [facility] [employer] [facility] 10-27-2023 10:26-0400 Body mass index (BMI) [Ratio] 29.94 kg/m2 Armen Furlong DO Work Phone: [facility] [employer] [facility] 10-27-2023 10:26-0400 Body temperature 97.81 [degF] Armen Furlong DO Work Phone: [facility] [employer] [facility] 10-27-2023 10:26-0400 Body weight 79.11 kg Armen Furlong DO Work Phone: [facility] [employer] [facility] 10-27-2023 10:26-0400 Diastolic blood pressure 60 mm[Hg] Armen Furlong DO Work Phone: [facility] 10-27-2023 10:26-0400 Heart rate 71 /min Armen Furlong DO Work Phone: [facility] 10-27-2023 10:26-0400 SaO2% (BldA) [Mass fraction] 99 % Armen Furlong DO Work Phone: [facility] 10-27-2023 10:26-0400 Systolic blood pressure 100 mm[Hg] Armen Furlong DO Work Phone: [facility] 09-27-2023 10:05-0400 Body height 162.6 cm Armen Furlong DO Work Phone: [facility] 09-27-2023 10:05-0400 Body mass index (BMI) [Ratio] 30.59 kg/m2 Armen Furlong DO Work Phone: [facility] 09-27-2023 10:05-0400 Body temperature 97.81 [degF] Armen Furlong DO Work Phone: [facility] 09-27-2023 10:05-0400 Body weight 80.83 kg Armen Furlong DO Work Phone: [facility] 09-27-2023 10:05-0400 Diastolic blood pressure 62 mm[Hg] Armen Furlong DO Work Phone: [facility] 09-27-2023 10:05-0400 Heart rate 81 /min Armen Furlong DO Work Phone: [facility] 09-27-2023 10:05-0400 SaO2% (BldA) [Mass fraction] 99 % Armen Furlong DO Work Phone: [facility] 09-27-2023 10:05-0400 Systolic blood pressure 100 mm[Hg] Armen Furlong DO Work Phone: [facility] 09-01-2023 11:00-0400 Body height 162.6 cm [facility] 09-01-2023 11:00-0400 Body mass index (BMI) [Ratio] 31.58 kg/m2 [facility] 09-01-2023 11:00-0400 Body weight 83.46 kg [facility] 08-25-2023 09:33-0400 Body height 162.6 cm Armen Furlong DO Work Phone: [facility] 08-25-2023 09:33-0400 Body mass index (BMI) [Ratio] 31.72 kg/m2 Armen Furlong DO Work Phone: [facility] 08-25-2023 09:33-0400 Body temperature 98.71 [degF] Armen Furlong DO Work Phone: [facility] 08-25-2023 09:33-0400 Body weight 83.83 kg Armen Furlong DO Work Phone: [facility] 08-25-2023 09:33-0400 Diastolic blood pressure 62 mm[Hg] Armen Furlong DO Work Phone: [facility] 08-25-2023 09:33-0400 Heart rate 89 /min Armen Furlong DO Work Phone: [facility] 08-25-2023 09:33-0400 Respiratory rate 18 /min Armen Furlong DO Work Phone: [facility] 08-25-2023 09:33-0400 SaO2% (BldA) [Mass fraction] 98 % Armen Furlong DO Work Phone: [facility] 08-25-2023 09:33-0400 Systolic blood pressure 98 mm[Hg] Armen Furlong DO Work Phone: [facility] 08-10-2023 09:46-0400 Body height 162.6 cm Claire Kat MD Work Phone: [facility] 08-10-2023 09:46-0400 Body mass index (BMI) [Ratio] 33.3 kg/m2 Claire Kat MD Work Phone: [facility] [employer] 08-10-2023 09:46-0400 Body weight 88 kg Claire Kat MD Work Phone: [facility] [employer] [facility] 08-10-2023 09:46-0400 Diastolic blood pressure 70 mm[Hg] Claire Kat MD Work Phone: [facility] [employer] 08-10-2023 09:46-0400 Systolic blood pressure 128 mm[Hg] Claire Kat MD Work Phone: [facility] [employer] [facility] Encounters Encounter Date Encounter Type Care Provider Facility Start: 09-21-2024 End: 09-21-2024 Clinisync Result Encounter Curtis Jeannine DO Work Phone: [facility] External Department Unsolicited Start: 09-21-2024 End: 09-21-2024 Clinisync Result Encounter Curtis Jeannine DO Work Phone: [facility] External Department Unsolicited Start: 09-18-2024 End: 09-18-2024 flow sheet Curtis Jeannine DO Work Phone: [facility] Comment on above: Anxiety, generalized (Primary Dx); Second trimester ([facility]-HCC); 27 weeks gestation of ([facility]-HCC); Cystic fibrosis carrier, antepartum ([facility]-HCC) Start: 09-18-2024 End: 09-18-2024 Bamboo flowsheet Curtis Jeannine DO Work Phone: [facility] Start: 09-18-2024 End: 09-18-2024 Bamboo flowsheet Curtis Jeannine DO Work Phone: [facility] Start: 09-15-2024 End: 09-15-2024 Telephone encounter Miriam Joseph RN [facility] at [facility] Start: 09-10-2024 End: 09-11-2024 ambulatory [facility] Start: 09-10-2024 End: 09-11-2024 Subsequent hospital visit by physician Victorino Christie DO Work Phone: [facility] Delivery Start: 09-10-2024 Emergency department patient visit ARMEN Steele [facility] Start: 09-07-2024 End: 09-07-2024 Office outpatient new 45 minutes Rashida Alvarez MD Work Phone: [facility] Comment on above: Cystic fibrosis fletcher ier (Primary Dx); Encounter for consultation Start: 09-07-2024 End: 09-07-2024 ambulatory RASHIDA ALVAREZ [facility] Comment on above: Cystic fibrosis fletcher ier (Primary Dx); Abnormal genetic test during Start: 08-30-2024 End: 08-30-2024 Bamboo flowsheet Jocy YOUNG Work Phone: [facility] Start: 08-30-2024 End: 08-30-2024 Bamboo flowsheet Jocy YOUNG Work Phone: [facility] Start: 08-30-2024 End: 08-30-2024 Clinisync Result Encounter [facility] DO Work Phone: [facility] External Department Unsolicited Start: 08-30-2024 End: 08-30-2024 flow sheet Jocy YOUNG Work Phone: [facility] Comment on above: Second trimester pre gnancy; 25 weeks gestation of Start: 08-25-2024 End: 08-25-2024 ambulatory [facility] Start: 08-18-2024 End: 08-18-2024 Orders Only Barbra Samuel RN Maternal- Medicine at [facility] Start: 08-17-2024 End: 08-18-2024 Telephone encounter Rachel Rodriguez LGC Work Phone: [facility]- Medicine at [facility] Start: 08-14-2024 End: 08-14-2024 Patient encounter procedure [...] Burns MD Work Phone: [facility]- Medicine at [facility] Comment on above: Cystic fibrosis fletcher ier (Primary Dx) Start: 07-28-2024 End: 07-28-2024 Orders Only Miriam Joseph RN [facility]- Medicine at [facility] Comment on above: Cystic fibrosis fletcher ier (Primary Dx); Abnormal genetic test during Start: 07-12-2024 End: 07-12-2024 Telephone encounter Rachel Rodriguez [facility] Work Phone: [facility]aternal- Medicine at [facility] Start: 07-11-2024 End: 07-11-2024 Bamboo flowsheet Emi Bronson [facility] Work Phone: [facility] Start: 07-11-2024 End: 07-11-2024 Bamboo flowsheet Emi Bronson [facility] Start: 07-11-2024 End: 07-11-2024 Clinical Support Emi Bronson [facility] Work Phone: [facility] Comment on above: Moderate episode of recurrent major depressive disorder (CMS/HCC); ALICIA (generalized anxiety disorder) (CMS/HCC) Start: 07-06-2024 End: 07-06-2024 Bamboo flowsheet Jocy YOUNG Work Phone: [facility] Start: 07-06-2024 End: 07-10-2024 Bamboo flowsheet Jocy YOUNG Work Phone: [facility] Start: 07-06-2024 End: 07-10-2024 Clinisync Result Encounter Jocy YOUNG Work Phone: [facility] External Department Unsolicited Start: 07-06-2024 End: 07-07-2024 External Result Encounter Jocy YOUNG Work Phone: [facility] External Department Unsolicited Start: 07-06-2024 End: 07-06-2024 Patient encounter procedure Jocy YOUNG Work Phone: [facility] Healthcare Start: 07-06-2024 End: 07-06-2024 Periodic preventive med est patient 18-39 yrs Jocy YOUNG Work Phone: [facility] OB Comment on above: 17 weeks gestation o f ; Second trimester ; Well woman exam with routine gynecological exam; Exposure to STD; Vaginal discharge Start: 07-05-2024 End: 07-05-2024 Clinisync Result Encounter Curtis Jeannine DO Work Phone: [facility] External Department Unsolicited Start: 07-05-2024 End: 07-05-2024 Clinisync Result Encounter Curtis Jeannine DO Work Phone: [facility] External Department Unsolicited Start: 06-20-2024 End: 06-20-2024 Telephone encounter Lara Lovelace [facility] at [facility] Start: 06-20-2024 End: 06-20-2024 Telemedicine consultation with patient Rachel Rodriguez [facility] Work Phone: [facility]- Medicine at [facility] Comment on above: Cystic fibrosis fletcher ier (Primary Dx); Abnormal genetic test during ; Family history of developmental delay; Family history of spina bifida Start: 06-20-2024 End: 06-20-2024 ambulatory CURTIS R [facility] Start: 06-16-2024 End: 06-16-2024 Chart abstracting Scanning Provider External [facility]- Medicine at [facility] Start: 06-08-2024 End: 06-08-2024 Bamboo flowsheet Curtis Jeannine DO Work Phone: [facility] Start: 06-08-2024 End: 06-08-2024 Bamboo flowsheet Curtis Jeannine DO Work Phone: [facility] Start: 06-08-2024 End: 06-08-2024 flow sheet Curtis Jeannine DO Work Phone: [facility] Comment on above: 13 weeks gestation o f ; Second trimester ; History of loop electrosurgical excision procedure (LEEP) of cervix affecting , antepartum Start: 05-24-2024 End: 05-24-2024 Clinical Support Emi Bronson [facility] Work Phone: [facility] Comment on above: Moderate episode of recurrent [...] flowsheet Curtis Jeannine DO Work Phone: [facility] Start: 05-09-2024 End: 05-09-2024 flow sheet Curtis Paez DO Work Phone: [facility] Comment on above: Missed menses; 9 weeks gestation of ; H/O LEEP Start: 05-05-2024 End: 05-05-2024 Office outpatient visit 5 minutes Noms [facility] Jeannine Nurse [facility] Comment on above: GA: 8w3d Start: 05-03-2024 End: 05-03-[address] DO Work Phone: [facility] Start: 05-02-2024 End: 05-02-2024 Bamboo flowsheet Emi Bronson [facility] Work Phone: [facility] Start: 05-02-2024 End: 05-02-2024 Bamboo flowsheet Emi Bronson [facility] Work Phone: [facility] Start: 05-02-2024 End: 05-02-2024 Clinical Support Emi Bronson [facility] Work Phone: [facility] Comment on above: Moderate episode of recurrent major depressive disorder (CMS/HCC); ALICIA (generalized anxiety disorder) (CMS/HCC) Start: 04-27-2024 End: 04-27-2024 Emergency department patient visit Zully Raya MD Work Phone: [facility] Emergency Department Comment on above: Abdominal [...] Dx); Overweight Start: 01-27-2024 End: 01-27-2024 ambulatory [facility] Start: 01-21-2024 End: 01-21-2024 Refill [facility] DO Work Phone: [facility] Start: 12-13-2023 End: 12-13-2023 Bamboo flowsheet Emi Davisdaro LPCC Work Phone: [facility] Start: 12-13-2023 End: 12-13-2023 Bamboo flowsheet Emi Munson Aiyana LPCC Work Phone: [facility] Start: 12-13-2023 End: 12-13-2023 Clinical Support Emi Davisdaro LPCC Work Phone: [facility] Comment on above: Moderate episode of recurrent major depressive disorder (HCC) ([facility]/HCC); ALICIA (generalized anxiety disorder) ([facility]/HCC) Start: 11-29-2023 End: 11-29-2023 Bamboo flowsheet Emi Davisdaro LPCC Work Phone: [facility] Start: 11-29-2023 End: 11-29-2023 Bamboo flowsheet Emi Munson Aiyana LPCC Work Phone: [facility] Start: 11-29-2023 End: 11-29-2023 Clinical Support Emi Bronson LP[facility] Work Phone: [facility] Comment on above: Moderate episode of recurrent major depressive disorder (HCC) (CMS/HCC); ALICIA (generalized anxiety disorder) ([facility]/HCC) Start: 10-27-2023 End: 10-27-2023 ambulatory [facility] Start: 10-27-2023 End: 10-27-2023 Office outpatient visit 25 minutes Armen Steele [place] DO Work Phone: [facility] Comment on above: Overweight (Primary Dx); Anxiety; Depression, unspecified depression type; Onychomycosis Start: 10-18-2023 End: 10-18-[address] DO Work Phone: [facility] Start: 10-03-2023 End: 10-04-[address] DO Work Phone: [facility] Comment on above: Class 1 obesity due to excess calories with body mass index (BMI) of 31.0 to 31.9 in adult, unspecified whether serious comorbidity present Start: 09-27-2023 End: 09-27-2023 ambulatory [facility] Start: 09-27-2023 Encounter for genera l adult medical examination without abnormal findings [facility] Start: 09-27-2023 End: 09-27-2023 Patient encounter status Armen Street DO Work Phone: [facility] [employer] [facility] Work Phone: Start: 09-27-2023 End: 09-27-2023 Periodic preventive med est patient 18-[address] DO Work Phone: [facility] Comment on above: Well adult health ch aashish (Primary Dx); Class 1 obesity due to excess calories without serious comorbidity with body mass index (BMI) of 31.0 to 31.9 in adult; Rectal bleeding; Onychomycosis; Benign skin lesion Start: 09-27-2023 End: 09-27-2023 ambulatory [facility] Start: 09-27-2023 Encounter for genera l adult medical examination without abnormal findings [facility] Start: 09-03-2023 End: 09-04-2023 Evaluation and management of inpatient [facility] Start: 09-02-2023 End: 09-02-2023 ambulatory [facility] Pat Phone Call Provider 1 [facility] - Pre Admit Start: 09-01-2023 End: 09-01-[address] [facility] Start: 08-25-2023 End: 08-25-2023 Office outpatient new [address] DO Work Phone: [facility] Comment on above: Rectal bleeding (Lucita sangeeta Dx); Mild major depression (CMS-HCC); Class 1 obesity due to excess calories with body mass index (BMI) of 31.0 to 31.9 in adult, unspecified whether serious comorbidity present Start: 08-10-2023 End: 08-10-2023 Encounter for gynecological examination (general) (routine) without abnormal findings Claire Kat MD Work Phone: [facility] Start: 08-10-2023 End: 08-10-2023 Initial preventive medicine new pt age 18-39yrs Claire Kat MD Work Phone: [facility] Comment on above: Encounter for gyneco logical examination without abnormal finding (Primary Dx); Screening for STD (sexually transmitted disease); Pap smear, as part of routine gynecological examination; Encounter for initial prescription of vaginal ring hormonal contraceptive Start: 08-10-2023 End: 08-10-2023 Patient encounter status Claire Kat MD Work Phone: [facility] Start: 08-10-2023 End: 08-10-2023 ambulatory CLAIRE KAT [facility] Start: 08-10-2023 Encounter for gynecological examination (general) (routine) [facility] Procedures Date Procedure Procedure Detail Performing [...] Adult depression scr eening assessment [address] [facility] [employer] Work Phone: Start: 08-25-2023 Adult depression scr eening assessment [facility] [employer] Work Phone: Start: 08-10-2023 Urine test visual color cmprsn meths Claire Kat MD Work Phone: Start: 08-10-2023 Adult depression scr eening assessment Claire Kat MD Work Phone: Start: 08-10-2023 Microscopic observat ion [Identifier] in Cervix by Cyto stain [address] [facility] [employer] Phone: Plan of Treatment Date Care Activity Detail Author Start: 2068 Respiratory Syncytia l Virus (RSV) or age 60 yrs+ (1 - 1-dose 75+ series) Respiratory Syncytial Virus (RSV) or age 60 yrs+ (1 - 1-dose 75+ series) [facility] [employer] Start: 08-16-2028 DTaP,Tdap and Td Vaccines (2 - Td or Tdap) DTaP,Tdap and Td Vaccines (2 - Td or Tdap) [employer] Start: 08-16-2028 DTaP/Tdap/Td vaccine (2 - Td or Tdap) DTaP/Tdap/Td vaccine (2 - Td or Tdap) [facility] [employer] Start: 07-07-2027 Screening for malign ant neoplasm of cervix [facility] Start: 08-09-2026 Screening for malign ant neoplasm of cervix [facility] Start: 09-07-2025 End: 09-07-2025 US MFM with or without consult US MFM with or without consult Imaging Routine Cystic fibrosis carrier Abnormal genetic test during Expected: 09/07/2025 (Approximate), Expires: 09/07/2025 [employer] Phone: Comment on above: Expected: 09/07/2025 (Approximate), Expires: 09/07/2025 Start: 07-28-2025 Adult BMI Screening Adult BMI Screen ing [facility] Start: 07-28-2025 Tobacco Screening Tobacco Screening [facility] Start: 07-28-2025 End: 07-28-2025 US MFM with or without consult US MFM with or without consult Imaging Routine Cystic fibrosis carrier Abnormal genetic test during Expected: 07/28/2025 (Approximate), Expires: 07/28/2025 [facility] Work Phone: Comment on above: Expected: 07/28/2025 (Approximate), Expires: 07/28/2025 Start: 02-24-2025 Tobacco Counseling Tobacco Counselin g [facility] Start: 01-26-2025 Adult BMI Screening Adult BMI Screen ing [facility] Start: 01-26-2025 Tobacco Screening Tobacco Screening [facility] Start: 12-04-2024 Influenza vaccination Influenza Vacc ine [facility] Start: 11-03-2024 Influenza vaccination Flu vacc ine (Season Ended) [facility] Start: 10-26-2024 Adult BMI Screening Adult BMI Screen ing [facility] Start: 10-26-2024 Depression Screening Depression Scre ening [facility] Start: 10-26-2024 Tobacco Screening Tobacco Screening [facility] Start: 10-03-2024 End: 10-03-2024 Patient encounter procedure 10/03/2024 1:40 PM EDT Routine [facility] [address] [place] [phone] Curtis Paez, DO [address] [place] [address] [facility] Start: 09-29-2024 End: 09-29-2024 Patient encounter procedure 09/29/2024 3:00 PM EDT Appointment [facility] [address] [place] [phone] Lyndsey Burns MD [address], [address] [place], [place] [phone] [facility] Start: 09-26-2024 Adult BMI Screening Adult BMI Screen ing [facility] Start: 09-26-2024 Depression Screening Depression Scre ening [facility] Start: 09-26-2024 Tobacco Screening Tobacco Screening [facility] Start: 09-18-2024 End: 09-18-2024 Patient encounter procedure 09/18/2024 3:40 PM EDT Routine [facility] [address] [place] [phone] Curtis Paez DO [address] [place] [address] Arrived [facility] Comment on above: Arrived Start: 09-18-2024 End: 01-18-2025 US for US OB follow up transabdominal approach Imaging Routine Cystic fibrosis carrier, antepartum ([facility]) Expected: 09/18/2024 (Approximate), Expires: 01/18/2025 [facility] Work Phone: Comment on above: Expected: 09/18/2024 (Approximate), Expires: 01/18/2025 Start: 09-02-2024 Adult BMI Screening Adult BMI Screen ing [facility] Start: 09-02-2024 Tobacco Screening Tobacco Screening [facility] Start: 08-30-2024 End: 08-30-2024 Patient encounter procedure 08/30/2024 9:50 AM EDT Routine [facility] [address] [facility] [place] [phone] Jocy Ruby PA [address] [place] [address] [facility] Start: 08-25-2024 End: 08-25-2024 Patient encounter procedure 08/25/2024 9:45 AM EDT Appointment [facility] [address] [place] [phone] [facility] Start: 08-24-2024 Adult BMI Screening Adult BMI Screen ing [facility] Start: 08-24-2024 Depression Screening Depression Scre ening [facility] Start: 08-24-2024 Tobacco Screening Tobacco Screening [facility] Start: 08-10-2024 End: 08-10-2024 Clinical Support 08/10/2024 11:00 AM EDT Clinical Support [facility] [address] [place] [address] Emi Bronson, [facility] [address] [place] [address] [facility] Start: 08-09-2024 Adult BMI Follow Up Plan Adult BMI Follow Up Plan [facility] Start: 08-09-2024 Adult BMI Screening Adult BMI Screen ing [facility] Start: 08-09-2024 Depression Screening Depression Scre ening [facility] Start: 08-07-2024 End: 08-07-2024 Patient encounter procedure 08/07/2024 11:30 AM EDT Procedure Visit [facility] OB [address] [place] [phone] Curtis Paez, [address] [place] [address] [facility] Start: 08-01-2024 End: 08-01-2025 CBC panel - Blood by Automated count CBC Lab Routine Diabetes mellitus screening Expected: 08/01/2024 (Approximate), Expires: 08/01/2025 [facility] Comment on above: Expected: 08/01/2024 (Approximate), Expires: 08/01/2025 Start: 08-01-2024 End: 08-01-2025 Measurement of glucose 1 hour after glucose challenge for glucose tolerance test Glucose tolerance, 1 hour Lab Routine Diabetes mellitus screening Expected: 08/01/2024 (Approximate), Expires: 08/01/2025 [facility] Comment on above: Expected: 08/01/2024 (Approximate), Expires: 08/01/2025 Start: 08-01-2024 End: 08-01-2024 Patient encounter procedure 08/01/2024 1:20 PM EDT Routine [facility] [address] [facility] [place] [address] Curtis Paez DO [address] [place] [address] [facility] Start: 07-28-2024 End: 07-28-2024 Patient encounter procedure [facility] Start: 07-11-2024 End: 07-11-2024 Clinical Support 07/11/2024 12:00 PM EDT Clinical Support [facility] [address] [place] [phone] Emi Bronson, [facility] [address] [place] [address] [facility] Start: 07-06-2024 End: 08-05-2024 Alpha fetoprotein, maternal Alpha fetoprotein, maternal Lab Routine 17 weeks gestation of Second trimester Expected: 07/06/2024 (Approximate), Expires: 08/05/2024 [facility] Healthcare Comment on above: Expected: 07/06/2024 (Approximate), Expires: 08/05/2024 Start: 07-06-2024 End: 07-06-2024 Patient encounter procedure [facility] Comment on above: Arrived Start: 06-20-2024 End: 06-20-2024 Clinical Support [facility] Start: 06-08-2024 End: 06-08-2025 US Pelvis transvaginal US OB transvaginal Imaging Routine 13 weeks gestation of Second trimester History of loop electrosurgical excision procedure (LEEP) of cervix affecting , antepartum Expected: 06/08/2024, Expires: 06/08/2025 [facility] Work Phone: Comment on above: Expected: 06/08/2024 , Expires: 06/08/2025 Start: 06-08-2024 End: 06-08-2024 Patient encounter procedure 06/08/2024 9:20 AM EST Routine [facility] [address] [facility] [place] [phone] Curtis Paez DO [address] [facility] [address] [place] [address] [facility] Start: 05-24-2024 End: 05-24-2024 Clinical Support 05/24/2024 10:00 AM EST Clinical Support [facility] [address] [place] [address] Emi Bronson, [facility] [address] [place] [address] [facility] Start: 05-09-2024 End: 05-09-2024 Patient encounter procedure [facility] Comment on above: Arrived Start: 05-09-2024 End: 05-09-2025 US Pelvis transvaginal US OB transvaginal Imaging Routine H/O LEEP Expected: 05/09/2024, Expires: 05/09/2025 [facility] Healthcare Comment on above: Expected: 05/09/2024 , Expires: 05/09/2025 Start: 05-05-2024 End: 05-05-2025 ABO/Rh ABO/Rh Lab Routine Missed menses , unspecified gestational age Expected: 05/05/2024 (Approximate), Expires: 05/05/2025 [facility] Comment on above: Expected: 05/05/2024 (Approximate), Expires: 05/05/2025 Start: 05-05-2024 End: 05-05-2025 Blood type and Indirect antibody screen panel - Blood Type and screen Lab Routine Missed menses , unspecified gestational age Expected: 05/05/2024 (Approximate), Expires: 05/05/2025 [facility] Work Phone: Comment on above: Expected: [...] AM EST Initial [facility] [address] [facility] [place] [address] [facility] Start: 05-05-2024 End: 05-05-2024 Professional / ancillary services management 05/05/2024 9:30 AM EST Ancillary Procedure [facility] [address] [facility] [place] [address] [facility] Start: 05-03-2024 End: 05-03-2024 Patient encounter procedure 05/03/2024 10:30 AM EST Office Visit [facility] - [facility] [address] [place] [address], DO [address], [facility] [place] [address] [facility] Start: 05-02-2024 End: 05-02-2024 Telemedicine consultation with patient 05/02/2024 10:45 AM EST Telemedicine [facility] Obstetrics/Gynecology [address] [facility] [place] [phone] Angela Monson, DOLL MAKER-REGISTERED CLINICAL DIETITIAN [address] [facility] [address] [place], [place] [phone] [facility] Obstetrics/[facility]necolog y Start: 01-27-2024 End: 01-27-2024 Patient encounter procedure 01/27/2024 10:00 AM EDT Office Visit [facility] - [facility] [address] [place] [phone] [address], DO [address], [place] [address] [facility] - [facility] Start: 12-27-2023 End: 12-27-2023 Clinical Support 12/27/2023 10:00 AM EDT Clinical [facility] [address] [place] [phone] Emi Bronson, [facility] [address] [place] [address] [facility] Start: 12-13-2023 End: 12-13-2023 Clinical Support 12/13/2023 11:00 AM EDT Clinical Support [facility] [address] [place] [phone] Emi Bronson, [facility] [address] [place] [address] [facility] Start: 12-05-2023 COVID-19 Vaccine ( season) COVID-19 Vaccine ( season) [facility] Start: 12-05-2023 COVID-19 Vaccine ( season) COVID-19 Vaccine ( season) [facility] Start: 12-05-2023 Influenza vaccination Influenza Vacc ine [facility] Start: 11-04-2023 Influenza vaccination Flu vaccine (# 1) [facility] Start: 10-28-2023 End: 10-28-2023 Patient encounter procedure 10/28/2023 11:00 AM EDT [facility] [address] [place] [address], DO [address], [place] [address] [facility] - [facility] Start: 10-27-2023 End: 10-27-2023 Patient encounter procedure 10/27/2023 10:15 AM EDT Office Visit [facility] - Family Medicine [address] [place] [address] [address], DO [address], [place] [address] [facility] - [facility] Start: 09-27-2023 End: 09-27-2023 Patient encounter procedure 09/27/2023 10:00 AM EDT Office Visit [facility] - Family Medicine [address] [place] [address] [address], DO [address] [place] [address] [facility] Internal [facility] - [facility] Start: 09-03-2023 End: 09-03-2023 Admission to same day surgery center 09/03/2023 1:30 PM EDT - 09/03/2023 2:30 PM EDT Surgery [facility] - Endoscopy [address] [place] [address] Haja Osullivan, DO [address] [place] [address] COLONOSCOPY DIAGNOSTIC / SCREENING [33865 (CPT )] [facility] - Endoscopy Comment on above: COLONOSCOPY DIAGNOST IC / SCREENING [30538 (CPT )] Start: 09-03-2023 End: 09-03-2023 Colonoscopy flx dx w/collj spec when pfrmd COLONOSCOPY DIAGNOSTIC / SCREENING rectal bleeding 09/03/2023 1:30 PM EDT [facility] Start: 09-03-2023 Subsequent hospital visit by physician 09/03/2023 1:30 PM EDT Hospital Encounter [facility] - Endoscopy [address] [place] [address] Haja Osullivan, DO [address] [place] [address] [facility] - Endoscopy Start: 09-02-2023 End: 09-02-2023 ambulatory 09/02/2023 2:00 PM EDT Support Visit [facility] - Pre Admit [address] [place] [address] [facility] - Pre Admit Start: 08-25-2023 End: 08-25-2023 Patient encounter procedure 08/25/2023 9:20 AM EDT [facility] [address] [place] [address], DO [address], [place] [address] [facility] - [facility] Start: 08-01-2023 Screening for malign ant neoplasm of cervix [facility] Start: 2014 Screening for malign ant neoplasm of cervix Pap smear [facility] Start: 2012 DTaP,Tdap and Td Vaccines (1 - Tdap) DTaP,Tdap and Td Vaccines (1 - Tdap) [facility] Start: 2012 Hepatitis B vaccine (1 of 3 - 19+ 3-dose series) Hepatitis B vaccine (1 of 3 - 19+ 3-dose series) [facility] Start: 2012 Pneumococcal 0-49 ye ars Vaccine (1 of 2 - PCV) Pneumococcal 0-49 years Vaccine (1 of 2 - PCV) [facility] Start: 08-01-2011 Adult BMI Follow Up Plan Adult BMI Follow Up Plan [facility] Start: 08-01-2011 Hepatitis C screening Hepatitis C sc reen [facility] Start: 2008 HIV screening HIV screen [facility] Start: 2006 Varicella vaccine (1 of 2 - 13+ 2-dose series) Varicella vaccine (1 of 2 - 13+ 2-dose series) [facility] Start: 2005 Depression Screen Depression Screen [facility] Start: 2005 Tobacco Screening Tobacco Screening [facility] [employer] Start: 08-01-1999 Pneumococcal 0-64 ye ars Vaccine (1 of 2 - PCV) Pneumococcal 0-64 years Vaccine (1 of 2 - PCV) [facility] Bacteria identified in Urine by Culture Urine culture Microbiology Routine Missed menses Ordered: 05/05/2024 [facility] Comment on above: Ordered: 05/05/2024 End: 09-26-2024 CBC panel - Blood by Automated count CBC Lab Routine Rectal bleeding 1 Occurrences starting 09/27/2023 until 09/26/2024 [facility] [employer] Comment on above: 1 Occurrences starti ng 09/27/2023 until 09/26/2024 CBC W Auto Different ial panel - Blood CBC and differential Lab Routine Missed menses , unspecified gestational age Ordered: 05/05/2024 [facility] Comment on above: Ordered: 05/05/2024 CHLAMYDIA TRACHOMATI S (GENITO/STI) CHLAMYDIA TRACHOMATIS (GENITO/STI) Lab Routine Exposure to STD Ordered: 07/06/2024 [facility] Comment on above: Ordered: 07/06/2024 CHLAMYDIA TRACHOMATI S (GENITO/STI) CHLAMYDIA TRACHOMATIS (GENITO/STI) Lab Routine Chlamydia trachomatis infection 21 weeks gestation of Second trimester Ordered: 08/01/2024 [facility] Comment on above: Ordered: 08/01/2024 End: 08-09-2024 Chlamydia/GC by PCR ThinPrep fluid Chlamydia/GC by PCR ThinPrep fluid Microbiology Routine Pap smear, as part of routine gynecological examination 1 Occurrences starting 08/10/2023 until 08/09/2024 [facility] [employer] Comment on above: 1 Occurrences starti ng 08/10/2023 until 08/09/2024 End: 08-24-2024 Colonoscopy Colonoscopy GI Routine Rectal bleeding 1 Occurrences starting 08/25/2023 until 08/24/2024 [employer] Work Phone: Comment on above: 1 Occurrences starti ng 08/25/2023 until 08/24/2024 End: 09-26-2024 Comprehensive metabolic 2000 panel - Serum or Plasma Comprehensive metabolic panel Lab Routine Well adult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
[2024-09-24 16:12] VITALS: BP 134/72; PULSE 90
[2024-09-24 16:13] VITALS: TEMP 36.9
--- NOTE | 2024-09-24 17:41 | US_ITS ---
The [place] [id number] Patient Name: MICHI LUNA MRN: [id number] date: 1995 Sex: F Assigned Patient Location: [facility] Current Patient Location: [facility] Accession/Order Number: [id number] Exam Date: 09/25/2024 08:05 Report Date: 09/25/2024 08:08 At the request of: MAGAN TRISTAN DO Procedure: US OB BPP w non-stress CLINICAL DATA: History of bleeding. Possible abruption. BIOPHYSICAL PROFILE: COMPARISON: None There is a single live intrauterine gestation in cephalic presentation. The reported gestational age is 28 weeks 5 days. The heart rate [id number] beats per minute. FINDINGS: TONE: 1 or more episodes of activity extension and flexion of extremity or opening and closing of the hand [Y] 2/2 GROSS BODY MOVEMENTS: 3 or more discrete body or limb movements [Y] 2/2 BREATHING MOVEMENTS: 1 or more episodes of breathing lasting at least 30 seconds [Y] 2/2 NAYE: A single deepest vertical pocket of amniotic fluid greater than 2 cm [Y] 2/2 NAYE: 17.4 cm . This is in upper normal range. Total score: 8/8 US/US OB BPP w non-stress IMPRESSION: NORMAL BIOPHYSICAL PROFILE Impression dictated by: Laura Rahman M.D. 09/25/2024 8:08 AM Dictation Location: [place] [address] Electronically authenticated by: [id number] Y Date: 09/25/2024 08:08
--- NOTE | 2024-09-24 17:43 | US_ITS ---
The [address] [address] Patient Name: MICHI LUNA MRN: [id number] date: 1995 Sex: F Assigned Patient Location: [facility] Current Patient Location: Accession/Order Number: [id number] Exam Date: 10/04/2024 09:16 Report Date: 10/04/2024 09:50 At the request of: MAGAN TRISTAN DO Procedure: US OB placenta ULTRASOUND OB PLACENTAL CLINICAL DATA: Possible abruption COMPARISON: 09/21/2024 There is a single live intrauterine gestation in cephalic presentation. There is cardiac and somatic activity with heart rate of 140 bpm. The amniotic fluid index measures 17.4 cm which is in normal range. The placenta is anterior. There is no evidence of previa. A hypoechoic area is again visualized at the inferior aspect of the placenta. The current measurements are 6.3 x 1.8 x 1.5 cm. This was previously 6.6 x 1.6 x 2.1 cm and it may be slightly smaller. US/US OB placenta IMPRESSION: HYPOECHOIC AREA ALONG THE INFERIOR ASPECT OF THE PLACENTA, MINIMALLY SMALLER THAN THE PRIOR. RESOLVING PLACENTAL ABRUPTION IS NOT EXCLUDED. Impression dictated by: Laura Rahman M.D. 10/04/2024 9:50 AM Dictation Location: [place] [address] Electronically authenticated by: [id number] Y Date: 10/04/2024 09:50
--- OUTSIDE RECORDS SUMMARY | 2024-09-25 10:20 | XMS_ITS | Encounter Summary ---
Author Organization [facility] Address [address] [place] [address] Care Team Providers Care Composition Tile Layer Name Role Phone Emi Bronson Arpit [facility] Unavailable + [phone] Armen Sánchez MD Primary Care Provider + [phone] Encounter Details Date Type Department Care Team (Late st Contact Info) Description 09/21/2024 Abstract [facility] [address] [place] [address] Curtis Paez, [address] Daniella Draper, [facility] Social History Tobacco Use Types Packs/Day Years [...] Description 10/03/2024 1:40 PM EDT Routine [facility] OB [address] [place] [address] Curtis Paez, [address] [place] [address] documented as of this encounter Visit Diagnoses Not on filedocumented in this encounter Care Teams Composition Tile Layer Relationship Specialty Start Date End Date Armen Sánchez MD [address] [place] [address] PCP - General Family Medicine 05/05/24 Emi Brnoson, [facility] [address] [place] [address] Behavioral Health 04/12/24 documented as of this encounter
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
--- OUTSIDE RECORDS SUMMARY | 2024-09-25 10:20 | XMS_ITS | Encounter Summary ---
Author Organization [facility] Address [address] [place] [address] Care Team Providers Care Pen Tester Name Role Phone Jessica Bronsonmadeline Munson [facility] Unavailable +- [phone] MD Primary Care Provider + [phone] Encounter Details Date Type Department Care Team (Late st Contact Info) Description 09/25/2024 Clinisync Result Encounter [facility] External Department Unsolicited Magan Paez DO [address] [place] [address] [place] [address] Social History Tobacco Use Types Packs/Day Years [...] Routine [facility] BCP OB [address] [place] [address] Magan Paez DO [address] [place] [address] [place] [address] documented as of this encounter Procedures Procedure Name Priority Date/Time Associated Diagnosis Comments US OB BPP W NON-STRESS 09/25/2024 8:08 AM EDT documented in this encounter Results * US OB BPP W NON-STRESS (09/25/2024 8:08 AM EDT) Anatomical Region Laterality Modality Other 09/25/2024 8:08 AM EDT Narrative 09/25/2024 8:10 [place] [address] Ultrasound Report Signed Patient: MICHI SERRANO MR#: [id number] : 1995 Acct:[id number] Age/Sex: 29 / F ADM Date: Loc: [facility] 251-[address]: Magan Paez D.O. Ordering Physician: Magan Paez D.O. Date of Service: 09/24/24 Procedure(s): US OB BPP w non-stress Accession Number(s): [id number] cc: [address]EN [address] Corey D.O. The [address] [address] Patient Name: MICHI SERRANO MRN: [id number] date: 1995 Sex: F Assigned Patient Location: [facility] Current Patient Location: [facility] [place] Accession/Order Number: [id number] Exam Date: 09/25/2024 08:05 Report Date: 09/25/2024 08:08 At the request of: MAGAN PAEZ DO Procedure: US OB BPP w non-stress CLINICAL DATA: History of bleeding. Possible abruption. BIOPHYSICAL PROFILE: COMPARISON: None There is a single live intrauterine gestation in cephalic presentation. The reported gestational age is 28 weeks 5 days. The heart rate beats per minute. FINDINGS: TONE: 1 or more episodes of activity extension and flexion of extremity or opening and closing of the hand [Y] 2/2 GROSS BODY MOVEMENTS: 3 or more discrete body or limb movements [Y] 2/2 BREATHING MOVEMENTS: 1 or more episodes of breathing lasting at least 30 seconds [Y] 2/2 NAYE: A single deepest vertical pocket of amniotic fluid greater than 2 cm [Y] 2/2 NAYE: 17.4 cm . This is in upper normal range. Total score: 8/8 US/US OB BPP w non-stress IMPRESSION: NORMAL BIOPHYSICAL PROFILE Impression dictated by: Laura Rahman M.D. 09/25/2024 8:08 AM Dictation Location: [place] [address] Electronically authenticated by: [id number] Y Date: 09/25/2024 08:08 Dictated By: Laura Rahman M.D. Signed By: 09/25/2410 DD/ TD/TT: Barber Tool Sharpener: Procedure Note Radiology, Radiologist, MD - 09/25/2024 [place] [address] Ultrasound Report Signed Patient: MICHI SERRANO KMR#: [id number] : 1995Acct:[id number] Age/Sex: Date: Loc: [facility] 251-[address]: Magan Paez D.O. Ordering Physician: Magan Paez D.O. Date of Service: 09/24/24 Procedure(s): US OB BPP w non-stress Accession Number(s): [id number] cc: [address] ; Magan Paez D.O. The [place] [address] Patient Name: MICHI SERRANO MRN: [id number] date: 1995 Sex: F Assigned Patient Location: [facility] Current Patient Location: [facility] [place] Accession/Order Number: [id number] Exam Date: 09/25/2024 08:05 Report Date: 09/25/2024 08:08 At the request of: MAGAN PAEZ DO Procedure: US OB BPP w non-stress CLINICAL DATA: History of bleeding. Possible abruption. BIOPHYSICAL PROFILE: COMPARISON: None There is a single live intrauterine gestation in cephalic presentation.The reported gestational age is 28 weeks 5 days. The heart [id number] beats per minute. FINDINGS: TONE: 1 or more episodes of activity extension and flexion of extremity or opening and closing of the hand [Y] 2/2 GROSS BODY MOVEMENTS: 3 or more discrete body or limb movements [Y] 2/2 BREATHING MOVEMENTS: 1 or more episodes of breathing lastingat least 30 seconds [Y] 2/2 NAYE: A single deepest vertical pocket of amniotic fluid greater than 2 cm [Y] 2/2 NAYE: 17.4 cm . This is in upper normal range. Total score: 11/10 US/US OB BPP w non-stress IMPRESSION: NORMAL BIOPHYSICAL PROFILE Impression dictated by: Laura Rahman M.D. 09/25/2024 8:08 AM Dictation Location: [place] [address] Electronically authenticated by: [id number] Y Date: 508:08 Dictated By: Laura Rahman M.D. Signed By:09/25/24 0810 DD/ 0808 TD/TT: Barber Tool Sharpener: [facility] DO [facility] Final Result documented in this encounter Visit Diagnoses Not on filedocumented in this encounter Care Teams Pen Tester Relationship Specialty Start Date End Date Armen Street MD [address] [place] [address] PCP - General Family Medicine 05/05/24 Emi Bronson [facility] [address] [place] [address] Behavioral Health 04/12/24 documented as of this encounter
--- OUTSIDE RECORDS SUMMARY | 2024-09-25 10:20 | XMS_ITS | Encounter Summary ---
Author Organization [facility] Address [address] [place] [address] Care Team Providers Care Efficiency Clerk Name Role Phone Emi Bronson Arpit [facility] Unavailable + [phone] Armen Sánchez MD Primary Care Provider + [phone] Encounter Details Date Type Department Care Team (Late st Contact Info) Description 09/21/2024 Abstract [facility] OB [address] [facility] [place] [address] Curtis Paez, [address] Daniella [place], [facility] Social History Tobacco Use Types Packs/Day Years [...] Description 10/03/2024 1:40 PM EDT Routine [facility] OB [address] [place] [address] Curtis Paez, [address] [place] [address] documented as of this encounter Visit Diagnoses Not on filedocumented in this encounter Care Teams Efficiency Clerk Relationship Specialty Start Date End Date Armen Sánchez MD [address] [place] [address] PCP - General Family Medicine 05/05/24 Emi Bronson, [facility] [address] [place] [address] Behavioral Health 04/12/24 documented as of this encounter
--- OUTSIDE RECORDS SUMMARY | 2024-09-25 10:20 | XMS_ITS | Encounter Summary ---
Author Organization [facility] Address [address] [place] [address] Care Team Providers Care Hat Brim Curler Name Role Phone Galen Bronsonalfred Munson [facility] Unavailable + [phone] Armen Sánchez MD Primary Care Provider + [phone] Encounter Details Date Type Department Care Team [...] PM EDT Routine [facility] BCP OB [address] [facility] [place] [address] Curtis Paez DO [address] [place], [place] [address] documented as of this encounter Visit Diagnoses Not on filedocumented in this encounter Care Teams Hat Brim Curler Relationship Specialty Start Date End Date Armen Sánchez MD [address] [place] [address] PCP - General Family Medicine 05/05/24 Emi Bronson [facility] [address] [place] [address] Behavioral Health 04/12/24 documented as of this encounter
--- OUTSIDE RECORDS SUMMARY | 2024-09-25 10:20 | XMS_ITS | Encounter Summary ---
Author Organization [facility] Address [address] [place] [address] Care Team Providers Care Overhead Foreman Name Role Phone mEi Bronson Arpit [facility] Unavailable + [phone] Armen Sánchez MD Primary Care Provider + [phone] Encounter Details Date Type Department Care Team (Late st Contact Info) Description 09/18/2024 Bamboo flowsheet [facility] OB [address] [facility] [place] [address] Curtis Paez, [address] Daniella [place], [facility]11 Social History Tobacco Use Types Packs/Day [...] Routine [facility] BCP OB [address] [place] [address] Curtis Paez, [address] [place] [address] documented as of this encounter Visit Diagnoses Not on filedocumented in this encounter Care Teams Overhead Foreman Relationship Specialty Start Date End Date Armen Sánchez MD [address] [place] [address] PCP - General Family Medicine 05/05/24 Emi Bronson [facility] [address] [place] [address] Behavioral Health 04/12/24 documented as of this encounter
--- OUTSIDE RECORDS SUMMARY | 2024-09-25 10:21 | XMS_ITS | Encounter Summary ---
Author Organization [facility] Address [address] [place] [address] Care Team Providers Care Splicer Operator Name Role Phone Emi Bronson Arpit [facility] Unavailable + [phone] Armen Sánchez MD Primary Care Provider + [phone] Encounter Details Date Type Department Care Team (Late st Contact Info) Description 08/10/2023 Abstract [facility] OB [address] [place] [address] Curtis Paez DO [address] [place], [facility] Social History Tobacco Use Types Packs/Day Years [...] Routine [facility] BCP OB [address] [place] [address] Curtis Paez DO [address] [place] [address] [place] [address] documented as of this encounter Visit Diagnoses Not on filedocumented in this encounter Care Teams Splicer Operator Relationship Specialty Start Date End Date Armen Sánchez MD [address] [place] [address] PCP - General Family Medicine 05/05/24 Emi Bronson [facility] [address] [place] [address] Behavioral Health 04/12/24 documented as of this encounter
--- OUTSIDE RECORDS SUMMARY | 2024-09-25 10:21 | XMS_ITS | Encounter Summary ---
Author Organization [facility] Address [address] [place] [address] Care Team Providers Care Java Jsf Developer Name Role Phone Jessica Bronsonmadeline Munson [facility] Unavailable +- [phone] MD Primary Care Provider + [phone] Encounter Details Date Type Department Care Team (Late st Contact Info) Description 09/21/2024 Clinisync Result Encounter [facility] External Department Unsolicited Magan Paez DO [address] [place] [address] [place] [address] Social History Tobacco Use Types Packs/Day Years [...] Routine [facility] BCP OB [address] [place] [address] Magan Paez DO [address] [place] [address] [place] [address] (Upsn) documented as of this encounter Procedures Procedure Name Priority Date/Time Associated Diagnosis Comments US OB CERVICAL LENGTH 09/21/2024 2:40 PM EDT documented in this encounter Results * US OB CERVICAL LENGTH (09/21/2024 2:40 PM EDT) Anatomical Region Laterality Modality Other 09/21/2024 2:40 PM EDT Narrative 09/21/2024 2:43 PM EDT [address] [address] Ultrasound Report Signed Patient: MICHI SERRANO MR#: [id number] : 1995 Acct:[id number] Age/Sex: 29 / F ADM Date: 09/21/24 Loc: US Attending Dr: Magan Paez D.O. Ordering Physician: Magan Paez D.O. Date of Service: 09/21/24 Procedure(s): US OB cervical length Accession Number(s): [id number] cc: ARMEN [address] Corey D.O. [address] [address] Patient Name: MICHI SERRANO MRN: [id number] date: 1995 Sex: F Assigned Patient Location: US Current Patient Location: US Accession/Order Number: [id number] Exam Date: 09/21/2024 14:39 Report Date: 09/21/2024 14:40 At the request of: MAGAN PAEZ DO Procedure: US OB cervical length Cervical length ultrasound Reason for exam: Vaginal bleeding for one week. COMPARISON: Ultrasound 09/14/2024. TECHNIQUE: Transabdominal imaging of the gravid uterus was obtained. FINDINGS: Cervical length measures 4.6 cm no evidence of funneling. US/US OB cervical length IMPRESSION: Normal cervical length without evidence of funneling. Impression dictated by: Dandy Sosa Jr.ONorberto 09/21/2024 2:40 PM Dictation Location: [facility] Electronically authenticated by: [id number] Y Date: 09/21/2024 14:40 Dictated By: Hugo Atkins M.D. Signed By: 09/21/24 1443 DD/ 1440 TD/TT: Global Compensation Manager: Procedure Note Radiology, Radiologist, MD - 09/21/2024 [place] [address] Ultrasound Report Signed Patient: MICHI SERRANO KMR#: [id number] : 1995Acct:[id number] Age/Sex: 29 FADM Date: 09/21/24 Loc: US Attending Dr: Magan Paez D.O. Ordering Physician: Magan Paez D.O. Date of Service: 09/21/24 Procedure(s): US OB cervical length Accession Number(s): [id number] cc: [address] ; Magan Paez D.O. [place] [address] Patient Name: MICHI SERRANO MRN: [id number] date: 1995 Sex: F Assigned Patient Location: US Current Patient Location: US Accession/Order Number: [id number] Exam Date: 09/21/2024 14:39 Report Date: 09/21/2024 14:40 At the request of: MAGAN PAEZ DO Procedure: US OB cervical length Cervical length ultrasound Reason for exam: Vaginal bleeding for one week. COMPARISON: Ultrasound 09/14/2024. TECHNIQUE: Transabdominal imaging of the gravid uterus was obtained. FINDINGS: Cervical length measures 4.6 cm no evidence of funneling. US/US OB cervical length IMPRESSION: Normal cervical length without evidence of funneling. Impression dictated by: Dandy Sosa Jr.ONorberto 09/21/2024 2:40 PM Dictation Location: [facility] Electronically authenticated by: [id number] Y Date: 4:40 Dictated By: Hugo Atkins M.D. Signed By:09/21/24 1443 DD/ 1440 TD/TT: Global Compensation Manager: us Magan Paez DO [facility] Final Result documented in this encounter Visit Diagnoses Not on filedocumented in this encounter Care Teams Java Jsf Developer Relationship Specialty Start Date End Date Armen Street MD [address] [place] [address] PCP - General Family Medicine 05/05/24 Emi Bronson [facility] [address] [place] [address] Behavioral Health 04/12/24 documented as of this encounter
--- OUTSIDE RECORDS SUMMARY | 2024-09-25 10:21 | XMS_ITS | Encounter Summary ---
Author Organization [facility] tem Address [facility] [place] [id number] [address] [place] [address] Care Team Providers Care Center Medical And Lab Director Name Role Phone Princess Armen Steele DO Primary Care Provider [phone] Encounter Details Date Type Department Care Team (Late st Contact Info) Description 06/16/2024 Orders Only Maternal- Medicine at [facility] [address] [place] [address] Curtis Paez, DO [address] [facility] [place] [address] Social History Tobacco Use Types Packs/Day Years Used Date Smoking Tobacco: Every Day Cigarettes 1 13.2 Started: 08/01/2011 Smokeless Tobacco: Never Alcohol Use Standard Drinks/Week Comments Not Currently 0 (1 standard drink = 0.6 oz pur e alcohol) [facility] Utilities Answer Date Recorded In the past 12 months has [employer], gas, oil, or water [employer] threatened to shut off services in your home? No 08/25/2023 Social Connection and Isolation Panel [NHANES] A nswer Date Recorded In a typical week, how many times do you talk on the phone with family, friends, or neighbors? Three times a week 01/27/2024 How often do you get togethe r with friends or relatives? Once a week 01/27/2024 How often do you attend [facility] or jehovah's witness services? Never 01/27/2024 Do you belong to [...] Date Recorded Total Score 0 10/27/2023 [facility] - Occupational [...] Info) Description 09/29/2024 3:00 PM EDT Appointment [facility] US Imaging [address] [place] [address] Suresh Valencia MD [address], [address] [place] [address] documented as of this encounter Procedures Procedure Name Priority Date/Time Associated Diagnosis Comments UNLISTED LAB TEST Routine 06/08/2024 1:25 PM EST UNLISTED LAB TEST Routine 05/23/2024 1:26 PM EST documented in this encounter Results * Unlisted Lab Test (06/08/2024 1:25 PM EST) us Curtis R Jeannine DO LAB BLOOD ORDERABLES Final Resu lt Performing Organization Address City/[facility]/ZIP Co de Phone Number MANUALLY TRANSCRIBED [...] documented as of this encounter Care Teams Center Medical And Lab Director Relationship Specialty Start Date End Date Armen Sánchez DO [address], [place] [address] PCP - General Family Medicine 08/25/23 documented as of this encounter
--- OUTSIDE RECORDS SUMMARY | 2024-09-25 10:21 | XMS_ITS | Clinical Summary ---
Demographics Address [address] [place] [address] Home Phone Work Phone Mobile Phone Email Address Preferred Language Portuguese Marital Status Single Synagogue Affiliation Unknown Race White Ethnic Group Not or Lati no Author Organization [facility] Address [address] [place] [address] Care Team Providers Care Spring Machine Operator Name Role Phone Armen Sánchez Primary Care Provider [phone] Allergies Active Allergy Reactions Criticality Noted Date [...] today Need for prophylactic vaccin ation against xsmhopljpi-ajyiwjn-vzmwfbdgi (DTP) 08/16/2018 Assessment & Plan (08/16/2018 4:03 [...] Hospital Encounter [facility] [address] [place] [address] Victorino Christie, Discharge Disposition: Home or Self [...] Self 1995 [address] [place] [address] [employer] Care Teams Spring Machine Operator Relationship Specialty Start Date End Date Armen Sánchez DO [address] [place] [address] PCP - General Family Medicine 04/27/24
--- OUTSIDE RECORDS SUMMARY | 2024-09-25 10:21 | XMS_ITS | Encounter Summary ---
Author Organization [facility] [employer] tem Address [id number] [address] [place] [address] Care Team Providers Care Sinter Machine Operator Name Role Phone MasoodArmen silverman Primary Care Provider Encounter Details Date Type Department Care Team (Late st Contact Info) Description 05/01/2024 Orders Only [facility] Internal Medicine - Family Medicine [address] [place] [address] Ref Prov, [place] [address] Social History Tobacco Use Types Packs/Day Years Used Date Smoking Tobacco: Every Day Cigarettes 1 13.2 Started: 08/01/2011 Smokeless Tobacco: Never Alcohol Use Standard Drinks/Week Comments Not Currently 0 (1 standard drink = 0.6 oz pur e alcohol) [facility] Utilities Answer Date Recorded In the past 12 months has [employer], gas, oil, or water company threatened to [...] often do you attend chur ch or hindu services? Never 01/27/2024 Do you belong to [...] Answer Date Recorded Total Score 0 10/27/2023 [facility] - [...] Recorded Do you need help finding a [facility] and/or a training [...] Info) Description 09/29/2024 3:00 PM EDT Appointment [facility] US Imaging [address] [place] [address] Suresh Valencia MD [address], [address] [place] [address] documented as of this encounter Procedures Procedure [...] documented as of this encounter Care Teams Sinter Machine Operator Relationship Specialty Start Date End Date Armen Sánchez DO [address] [facility], [place] [address] PCP - General Family Medicine 08/25/23 documented as of this encounter
--- OUTSIDE RECORDS SUMMARY | 2024-09-25 10:21 | XMS_ITS | Encounter Summary ---
Author Organization [facility] Address [address] [place] [address] Care Team Providers Care Sociology Professor Name Role Phone Emi Bronson [facility] Unavailable + [phone] Armen Sánchez MD Primary Care Provider + [phone] Encounter Details Date Type Department Care Team (Late st Contact Info) Description 09/14/2023 Abstract [facility] 112 [facility] [address] [place] [id number] Nav Ames MD [address] [place] [facility] [address] [place] [address] Social History Tobacco Use Types Packs/Day Years [...] Description 10/03/2024 1:40 PM EDT Routine [facility] OB [address] [place] [address] Curtis Paez, DO [address] [place] [address] documented as of this encounter Visit Diagnoses Not on filedocumented in this encounter Care Teams Sociology Professor Relationship Specialty Start Date End Date Armen Sánchez MD [address] [place] [address] PCP - General Family Medicine 05/05/24 Emi Bronson [facility] [address] [place] [address] Behavioral Health 04/12/24 documented as of this encounter
--- OUTSIDE RECORDS SUMMARY | 2024-09-25 10:21 | XMS_ITS | Encounter Summary ---
Author Organization [facility] Address [address] [place] [address] Care Team Providers Care Scouts Name Role Phone AiyanaEmi caraballo [facility] Unavailable + [phone] Armen Sánchez MD Primary Care Provider + [phone] Encounter Details Date Type Department Care Team (Late st Contact Info) Description 09/21/2024 Telephone [facility] OB [address] [place] [address] [place] [address] Antoinette Jackman LPN Social History Tobacco Use Types Packs/Day [...] encounter Miscellaneous Notes * Telephone Encounter - Antoinette Jackman LPN - 09/21/2024 2:00 PM EDT Called patient and informed her that our office is unable to fill out Workman's Comp paperwork. Patient verbalized understanding and will have work release sent to Employer and [employer], fax numbers given to Surgery Schedulers to fax work release. PVU Antoinette Erwin LPN documented in this encounter Plan of Treatment Upcoming Encounters Date Type Department Care Team (Late st Contact Info) Description 10/03/2024 1:40 PM EDT Routine [facility] BCP OB 102 [facility] [address] Curtis Paez, DO [address] [facility] [place] [address] documented as of this encounter Visit Diagnoses Not on filedocumented in this encounter Care Teams Scouts Relationship Specialty Start Date End Date Armen Sánchez MD [address] [place] [address] PCP - General Family Medicine 05/05/24 Emi Bronson, [facility] [address] [place] [address] Behavioral Health 04/12/24 documented as of this encounter
--- OUTSIDE RECORDS SUMMARY | 2024-09-25 10:21 | XMS_ITS | Encounter Summary ---
Author Organization [facility] Address [address] [place] [address] Care Team Providers Care Boating Safety Officer Name Role Phone Emi Bronson [facility] Unavailable + [phone] Armen Sánchez MD Primary Care Provider + [phone] Encounter Details Date Type Department Care Team (Late st Contact Info) Description 07/11/2024 Orders Only [facility] OB [address] [facility] [place] [address] Mary Quinn LPN [address] [facility] [place] [id number] Social History Tobacco Use Types Packs/Day Years [...] PM EDT Routine [facility] BCP OB [address] [facility] [place] [address] Curtis Paez, DO [address] [place] [address] [address] [place] [address] documented as of this encounter Procedures Procedure Name Priority Date/Time Associated Diagnosis Comments PAP SMEAR Routine 07/06/2024 12:00 AM EDT documented in this encounter Results * Pap Smear (07/06/2024 12:00 AM EDT) Swab Cervical swab / Unknown Jeannine Nurse [facility] Ob LAB CYTOLOGY ORDERABLES Final Result EXTERNAL LAB documented in this encounter Visit Diagnoses Not on filedocumented in this encounter Care Teams Boating Safety Officer Relationship Specialty Start Date End Date Armen Sánchez MD [address] [place] [address] PCP - General Family Medicine 05/05/24 Emi Bronson, [facility] [address] [place] [address] Behavioral Health 04/12/24 documented as of this encounter
--- OUTSIDE RECORDS SUMMARY | 2024-09-25 10:21 | XMS_ITS | Encounter Summary ---
Author Organization [facility] tem Address [id number] [address] [place] [address] Care Team Providers Care Fuel System Maintenance Worker Name Role Phone SepidehArmen tristan Cedric [place] Primary Care Provider Encounter Details Date Type Department Care Team (Late st Contact Info) Description 09/15/2024 Telephone [facility] at [facility] [address] [place] [phone] Miriam Joseph, RN Social History Tobacco Use Types Packs/Day Years Used Date Smoking Tobacco: Every Day Cigarettes 1 13.2 Started: 08/01/2011 Smokeless Tobacco: Never Alcohol Use Standard Drinks/Week Comments Not Currently 0 (1 standard drink = 0.6 oz pur e alcohol) [facility] Utilities Answer Date Recorded In the past 12 months has [employer], gas, oil, or water [employer] threatened to shut off services in your [...] often do you attend chur ch or episcopal services? Never 01/27/2024 Do you belong to any clubs o r organizations such as anglican groups, unions, fraternal or athletic groups, or [...] Answer Date Recorded Total Score 0 10/27/2023 [facility] - Occupational [...] Recorded Do you need help finding a [facility] career center and/or a training program? No [...] patient with reports of recent visit to [place] ED due to vaginal bleeding. Patient states ultrasound was performed and she was told she has a subchorionic hematoma. States was discharged with instruction to follow up with OB. Appointment scheduled with OB for 09/19/24. Patient inquiring if next MFM ultrasound needs to be sooner than scheduled. Meat Curer reviewed information with Dr. Valencia. Per Dr. [...] Info) Description 09/29/2024 3:00 PM EDT Appointment [facility] US Imaging [address] [place] [phone] Suresh Valencia MD [address], [address] [place] [address] documented as of this encounter Visit Diagnoses Not on filedocumented in this encounter Additional Health Concerns Assessment Noted Time PHQ-9 Depression Total Score: 0 10/27/19 10:25 AM EDT A Body Mass Index follow-up plan has been documented for the patient 08/10/2023 10:14 AM EDT documented as of this encounter Care Teams Fuel System Maintenance Worker Relationship Specialty Start Date End Date Armen Sánchez DO [address] [facility] [place] [address] PCP - General Family Medicine 08/25/23 documented as of this encounter
--- OUTSIDE RECORDS SUMMARY | 2024-09-25 10:21 | XMS_ITS | Encounter Summary ---
Author Organization [facility] [employer] s tem Address [id number] [address] [place] [address] Care Team Providers Care Water/Wastewater Engineer Name Role Phone MasoodArmen silverman Primary Care Provider Encounter Details Date Type Department Care Team (Late st Contact Info) Description 07/19/2024 Orders Only [facility] Internal Medicine - Family Medicine [address] [place] [address] Ref Prov, [place] [address] Social History Tobacco Use Types Packs/Day Years Used Date Smoking Tobacco: Every Day Cigarettes 1 13.2 Started: 08/01/2011 Smokeless Tobacco: Never Alcohol Use Standard Drinks/Week Comments Not Currently 0 (1 standard drink = 0.6 oz pur e alcohol) [facility] Utilities Answer Date Recorded In the past 12 months has [employer], gas, oil, or water company threatened to [...] Answer Date Recorded Total Score 0 10/27/2023 [facility] of Occupat ional Health - [...] Recorded Do you need help finding a [facility] career center and/or a training program? [...] Info) Description 09/29/2024 3:00 PM EDT Appointment [facility] US Imaging [address] [place] [phone] Suresh Valencia MD [address], [address] [place] [address] documented as of this encounter Procedures Procedure [...] documented as of this encounter Care Teams Water/Wastewater Engineer Relationship Specialty Start Date End Date Armen Sánchez DO [address] [facility], [place] [address] PCP - General Family Medicine 08/25/23 documented as of this encounter
--- OUTSIDE RECORDS SUMMARY | 2024-09-25 10:21 | XMS_ITS | Encounter Summary ---
Author Organization [facility] Address [address] [facility] [place] [address] Care Team Providers Care Sugar House Supervisor Name Role Phone Emi Bronson [facility] Unavailable + [phone] Armen Sánchez MD Primary Care Provider + [phone] Encounter Details Date Type Department Care Team (Late st Contact Info) Description 12/27/[address] [facility] [address] [place] [phone] Emi Bronson, [facility] [address] [place] [address] Social History Tobacco Use Types Packs/Day Years [...] EDT Routine [facility] [address] [place] [address] Curtis Paez, DO [address] [facility] [address] [place] [address] documented as of this encounter Visit Diagnoses Not on filedocumented in this encounter Care Teams Sugar House Supervisor Relationship Specialty Start Date End Date Armen Sánchez MD [address] [place] [address] PCP - General Family Medicine 05/05/24 Emi Bronson [facility] [address] [place] [address] Behavioral Health 04/12/24 documented as of this encounter
--- OUTSIDE RECORDS SUMMARY | 2024-09-25 10:21 | XMS_ITS | Encounter Summary ---
Author Organization [facility] Address [address] [place] [address] Care Team Providers Care Restaurant Area Director Name Role Phone Galen Bronsonalfred Munson [facility] Unavailable + [phone] Armen Sánchez MD Primary Care Provider + [phone] Encounter Details Date Type Department Care Team (Late st Contact Info) Description 09/21/2024 Orders Only [facility] OB [address] [place] [address] Curtis Paez, DO [address] [place], [place] [phone] Placental abnormality in third trimester (HHS-HCC); Cystic fibrosis carrier, antepartum (HHS-HCC); History of loop electrosurgical excision procedure (LEEP) of cervix affecting , antepartum (HHS-HCC) Social History Tobacco Use Types Packs/Day Years [...] as of this encounter Progress Notes * Antoinette Jackamn LPN - 09/21/2024 3:29 PM EDT 3:30pm Called patient and informed her that results were received from US today. Dr. Paze recommends that patient have an NST obtained tomorrow. Called [facility] and spoke with Fariba valverde NST order was received. Faxed referral STAT back to [facility] and US orders were faxed to [facility] scheduling that they did not receive previously. Antoinette Erwin LPN documented in this encounter Plan of Treatment Upcoming Encounters Date Type Department Care Team (Late st Contact Info) Description 10/03/2024 1:40 PM EDT Routine [facility] [address] [address] Curtis Paez, DO [address] [facility] [address] [place] [place], [place] [phone] Scheduled Orders Name Type Priority Associated Diagnoses Orde r Schedule nonstress test Procedures Routine Placental abnormality in third trimester (HHS-HCC) Cystic fibrosis carrier, antepartum (HHS-HCC) History of loop electrosurgical excision procedure (LEEP) of cervix affecting , antepartum (HHS-HCC) Expected: 09/21/2024 (Approximate), Expires: 03/23/2025 documented as of this encounter Visit Diagnoses Diagnosis Placental abnormality in third trimester (HHS-HCC) Cystic fibrosis carrier, antepartum (HHS-HCC) History of loop electrosurgical excision procedure (LEEP) of cervix affecting , antepartum (HHS-HCC) documented in this encounter Care Teams Restaurant Area Director Relationship Specialty Start Date End Date Armen Sánchez MD [address] [place] [address] PCP - General Family Medicine 05/05/24 Emi Bronson, [facility] [address] [place] [address] Behavioral Health 04/12/24 documented as of this encounter
--- OUTSIDE RECORDS SUMMARY | 2024-09-25 10:22 | XMS_ITS | Encounter Summary ---
Author Organization [facility] Address [address] [place] [address] Care Team Providers Care Loss Control Consultant Name Role Phone Emi Bronson Arpit [facility] Unavailable + [phone] Armen Sánchez MD Primary Care Provider + [phone] Encounter Details Date Type Department Care Team (Late st Contact Info) Description 05/09/[address] [facility] OB [address] [place] [address] Curtis Peaz, [address] [place], [facility] Social History Tobacco Use Types Packs/Day Years [...] Description 10/03/2024 1:40 PM EDT Routine [facility] OB [address] [place] [address] Curtis Paez, [address] [place] [address] documented as of this encounter Visit Diagnoses Not on filedocumented in this encounter Care Teams Loss Control Consultant Relationship Specialty Start Date End Date Armen Sánchez MD [address] [place] [address] PCP - General Family Medicine 05/05/24 Emi Bronson, [facility] [address] [place] [address] Behavioral Health 04/12/24 documented as of this encounter
--- OUTSIDE RECORDS SUMMARY | 2024-09-25 10:22 | XMS_ITS | Encounter Summary ---
[id number] [address] [place] [address] Care Team Providers Care Assistant To The President Name Role Phone PrincessArmen Cedric [place] Primary Care Provider Encounter Details Date Type Department Care Team (Late st Contact Info) Description 08/26/2023 Orders Only [facility] Internal Medicine - Family Medicine [address] [place] [address] Scotty Mahoney DO [address] [place] [address] Rectal bleeding (Primary Dx) Social History Tobacco Use Types Packs/Day Years Used Date Smoking Tobacco: Every Day Cigarettes 1 13.2 Started: 08/01/2011 Smokeless Tobacco: Never Alcohol Use Standard Drinks/Week Comments Not Currently 0 (1 standard drink = 0.6 oz pur e alcohol) [facility] Utilities Answer Date Recorded In the past 12 months has [employer], gas, oil, or water [employer]) threatened to shut off services in your [...] week 08/25/2023 How often do you attend [facility] or voodoo services? Never 08/25/2023 Do you belong to any clubs o r organizations such as sikhism groups, unions, fraternal or athletic groups, or [...] Answer Date Recorded Total Score 6 08/25/2023 [facility] of Occupat ional Health - [...] Recorded Do you need help finding a [facility] career center and/or a training [...] Description 09/29/2024 3:00 PM EDT Appointment [facility] US Imaging [address] [place] [phone] Suresh Valencia MD [address], [address] [place] [address] documented as of this encounter Visit Diagnoses Diagnosis Rectal bleeding- Primary Hemorrhage of rectum and anus documented in this encounter Additional Health Concerns Assessment Noted Time PHQ-9 Depression Total Score: 6 08/25/19 24 9:30 AM EDT A Body Mass Index follow-up plan has been documented for the patient 08/10/2023 10:14 AM EDT documented as of this encounter Care Teams Assistant To The President Relationship Specialty Start Date End Date Armen Sánchez DO [address] [facility] [place] [address] PCP - General Family Medicine 08/25/23 documented as of this encounter
--- OUTSIDE RECORDS SUMMARY | 2024-09-25 10:22 | XMS_ITS | Clinical Summary ---
Author Organization [employer] tem Address [id number] [address] [place] [address] Care Team Providers Care Guidance Counselor Name Role Phone Armen Sánchez Primary Care [...] Consult: []Palliative Care Consult: []SGM: []Life Connection: []Finger: [] MRI: []Nationwide: []UofM: []UH: [x]JO CHS: If Peds are NOT ok taking care of CF baby Delivery Recommendation: [x] Term at local hospital, if Peds are ok taking care of CF baby [] Term at [facility] Surveillance Plan: [x] F/U Survey sched 08/25/24 at [facility] [] Growth q __ weeks [] [...] Encounters Date Type Department Care Team Description 09/25/2024 Orders Only Maternal- Medicine at [facility] [address] [place] [address] Ref Prov, Not In System 09/15/2024 Telephone Maternal- Medicine at [facility] [address] [place] [address] Miriam Joseph RN 09/07/2024 10:30 AM EDT Office Visit [facility] [address] [facility] [address] [place] [phone] Rashida Silva MD 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); Encounter for consultation 09/07/2024 Orders Only Maternal- Medicine at [facility] [address] [place] [address] Miriam Joseph RN 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); Abnormal genetic test during 09/05/2024 Travel 08/25/2024 Travel 08/18/2024 Orders Only Maternal- Medicine at [facility] [address] [place] [address] Barbra Samuel RN 08/18/2024 Orders Only Maternal- Medicine at [facility] [address] [place] [address] Barbra Samuel RN 08/17/2024 Telephone Maternal- Medicine at [facility] [address] [place] [address] Rachel Rodriguez, LGC 07/28/2024 1:48 PM EDT - 07/28/2024 11:59 PM EDT Hospital Encounter [facility] [address] [address] Discharge Disposition: Home 07/28/2024 10:00 AM EDT Office Visit Maternal- Medicine at [facility] [address] [place] [address] Suresh Burns MD 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) 07/28/2024 8:42 AM EDT - 07/28/2024 1:47 PM EDT Hospital Encounter [facility] US Imaging [address] [place] [address] Abnormal genetic test during ; Screening, , for anatomic survey Discharge Disposition: Home 07/28/2024 Orders Only Maternal- Medicine at [facility] [address] [place] [address] Miriam Joseph, RN 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); Abnormal genetic test during 07/28/2024 Travel 07/19/2024 Orders Only [facility] Internal Medicine - Family Medicine [address] [place] [address] Ref Prov, Not In System 07/12/2024 Telephone Maternal- Medicine at [facility] [address] [place] [address] Rachel Rodriguez LGC from Last 3 Months [...] 1 13.2 Started: 08/01/2011 Smokeless Tobacco: Never Tobacco Cessation:Ready to Q uit: Not Asked; Counseling Given: Not Answered Alcohol Use Standard Drinks/Week Comments Not Currently 0 (1 standard drink = 0.6 oz pur e alcohol) [facility] [employer] Answer Date Recorded In the past 12 [...] often do you attend chur ch or jehovah's witness services? Never 01/27/2024 Do you belong to any clubs o r organizations such as restorationism groups, unions, fraternal or athletic groups, or [...] Answer Date Recorded Total Score 0 10/27/2023 [facility] Questionnaire Answer Date Recorded [...] Recorded Do you need help finding a [facility] career center and/or a training [...] Info) Description 09/29/2024 3:00 PM EDT Appointment [facility] US Imaging [address] [place] [address] Suresh Burns MD [address], [address] [place] [address] Health Maintenance Due Date Last Done Comments Adult BMI Follow Up Plan 08/09/2024 08/10/2023 Depression Screening 10/26/2024 10/27/2023 Influenza Vaccine 12/04/2024 Tobacco Counseling 02/24/2025 08/25/2023 Adult BMI Screening 07/28/2025 07/28/2024 Tobacco Screening 07/28/2025 07/28/2024 Pap Smear 07/07/2027 07/06/2024, 05/10/2023, 08/10/2023 DTaP,Tdap and Td Vaccines (2 - Td or Tdap) 08/16/2028 08/16/2018 Medical Devices Not on file Procedures Procedure Name Priority Date/Time Associated Diagnosis Comments US PREG LMTD 1 OR MORE FETUS Routine 09/25/2024 8:28 AM EDT US MFM OB FOLLOW-UP, 1 FETUS Routine [...] Recently Relevant to Health Maintenance Results * Ultrasound limited 1 or more fetus (09/25/2024 8:28 AM EDT) Anatomical Region Laterality Modality OB-STAPLE CUTTER Ultrasound us Not In System Ref Prov IMG US ORDERABLES Final R esult * US MFM OB FOLLOW-UP, 1 FETUS (08/25/2024 10:25 AM EDT) Only the most recent of2 resultswithin the time period is included. Anatomical Region Laterality Modality OB-STAPLE CUTTER Ultrasound 08/25/2024 9:38 AM EDT Narrative 08/25/2024 5:15 PM EDT NAME: JEREMY BORDEN : 1995 SEX: F Accession Number: [id number] ORDERING PHYSICIAN: SURESH BURNS REFERRING PHYSICIAN: MAGAN TRISTAN Coding ----- --------- Procedures [id number]: Follow-up Ultrasound, per fetus Indication ----- --------- Abnormal finding on screening of mother-MOB + FOB CF carriers, Depression, Anxiety , Screening for follow-up survey History ----- --------- OB History 1. Para 0 [id number] Current ----- --------- Cell free DNA low [...] EFW (oz) 11 oz EFW by: Hadlock (QSG-LM-PI-FL) Extended Tibia 36.6 mm 23w 5d 27% [employer] Supervisor 3.8 mm CM 6.3 mm 59% Nicolaides [...] Thorax RVOT view. LVOT view. 3-vessel view. 1-pmgjgn-hzfykga view. Bicaval view. Ductal arch view. Interventricular [...] BORDEN : 1995 SEX: F Accession Number: [id number] ORDERING PHYSICIAN: SURESH BURNS REFERRING PHYSICIAN: MAGAN TRISTAN Coding ----- --------- Procedures [id number]: Follow-up Ultrasound, per fetus Indication ----- --------- Abnormal finding on screening of mother-MOB + FOB CF carriers,Depression, Anxiety , Screening for follow-up survey History ----- --------- OB History 1. Para 0 [id number] Current ----- --------- Cell free DNA low [...] EFW (oz) 11 oz EFW by: [employer]lock (QTP-PT-LS-FL) Extended Tibia 36.6 mm 23w 5d 27% [employer] Supervisor 3.8 mm CM 6.3 mm 59% Nicolaides [...] Thorax RVOT view. LVOT view. 3-vessel view. 2-lshecg-yttoejg view.Bicaval view. Ductal arch view. Interventricular septum. [...] with thepatient as necessary. Suresh Burns MD [facility] US ORDERABLES Final Resul t * Send Out Test (07/28/2024 11:05 AM EDT) Only the most recent of2 resultswithin the time period is included. Test name: KNOWN MUTATION ANALYSIS CFTR GENE 07/28/2024 1:55 PM EDT [employer] Specimen 3 MATERNAL AMNIOTIC FLUID 2 EDTA AND 1 SODIUM HEP MATERNAL 07/28/2024 1:55 PM EDT [facility] Sent to [facility] VIA [employer] [id number] 07/28/2024 2:18 PM EDT [employer] Comment:Corrected on 07/28 A T 1418: Previously reported as [place] [employer]IA [employer] [id number] Test result See separate report. View in OnBallLogic or in [employer]. 08/23/2024 7:01 PM EDT [employer] MISCELLANEOUS 07/28/2024 11: 05 AM EDT 07/28/2024 1:53 PM EDT Suresh Burns MD LAB ORDERABLES Edited Result - Final Performing Organization Address City/[facility]/ZIP Co de Phone Number DELFINO * Ultrasound pelvic with transvaginal (07/05/2024 8:08 AM EDT) Anatomical Region Laterality Modality Body, Pelvis Ultrasound us Not In System Ref Prov IMG US ORDERABLES Final R esult * High risk HPV w/faustina (08/10/2023 4:17 AM EDT) Hpv specimen type ThinPrep 08/11/2023 4:17 AM EDT [facility] Hpv 16 Negative Negative^N egative 08/11/2023 2:37 PM EDT [facility] Hpv 18 Negative Negative^N egative 08/11/2023 2:37 PM EDT [facility] Other high risk hpv Negative Negative^N egative 08/11/2023 2:37 PM EDT [facility] Comment: HPV types 31,33,35,39,45,52,56,58,59,66 and 68 DNA were undetectable. THINP 08/10/2023 4:17 AM EDT 08/10/2023 4:48 AM EDT us Claire Robertson MD LAB BLOOD ORDERABLES Final Res ult Performing Organization Address [facility]/ZIP Co de Phone Number DELFINO [facility] [address] [facility] [place] [address] [facility] [address] [facility] [facility] [place] [address] from Last 3 Months or Most Recently Relevant to Health Maintenance Insurance * Guarantor: Sapna Serrano Account Type Relation to Patient Date of Phone Billing Address Personal/Family Self 1995 [address] [place] [address] [employer] Care Teams Guidance Counselor Relationship Specialty Start Date End Date Armen Sánchez DO [address], [facility] [place] [address] PCP - General Family Medicine 08/25/23
--- OUTSIDE RECORDS SUMMARY | 2024-09-25 10:22 | XMS_ITS | Encounter Summary ---
Author Organization [employer] tem Address [facility] [place]-[id number] [address] [place] [address] Care Team Providers Care Party Plan Demonstrator Name Role Phone Armen Sánchez Primary Care Provider Encounter Details Date Type Department Care Team (Late st Contact Info) Description 08/17/2023 Orders Only [facility] Obstetrics/Gynecology [address] [place] [phone] La Murray CMA Screening for STD (sexually [...] Info) Description 09/29/2024 3:00 PM EDT Appointment [facility] US Imaging [address] [place] [phone] Suresh Valencia MD [address], [address] [place] [address] documented as of this encounter Procedures Procedure [...] documented as of this encounter Care Teams Party Plan Demonstrator Relationship Specialty Start Date End Date Armen Sánchez DO [address] [facility] [place] [address] PCP - General Family Medicine 08/25/23 documented as of this encounter
--- OUTSIDE RECORDS SUMMARY | 2024-09-25 10:22 | XMS_ITS | Encounter Summary ---
Demographics Address [address] [place] [address] Mobile Phone Email Address Email Address Preferred Language Turkmen Marital Status Single Church Affiliation Unknown Race White Ethnic Group Not or Lati no Author Organization [facility] tem Address [id number] [address] [place] [address] Care Team Providers Care Bias Cutting Machine Operator Name Role Phone PrincessArmen Cedric [place] Primary Care Provider Encounter Details Date Type Department Care Team (Late st Contact Info) Description 09/25/2024 Orders Only Maternal- Medicine at [facility] [address] [place] [address] Ref Prov, [place] [address] Social History Tobacco Use Types Packs/Day Years Used Date Smoking Tobacco: Every Day Cigarettes 1 13.2 Started: 08/01/2011 Smokeless Tobacco: Never Alcohol Use Standard Drinks/Week Comments Not Currently 0 (1 standard drink = 0.6 oz pur e alcohol) [facility] Utilities Answer Date Recorded In the past 12 months has [employer], gas, oil, or water company threatened to [...] often do you attend chur ch or latter-day services? Never 01/27/2024 Do you belong to any clubs o r organizations such as adventist groups, unions, fraternal or athletic groups, or [...] Answer Date Recorded Total Score 0 10/27/2023 [facility] [place] of Occupat ional Health - Occupational Stress [...] Recorded Do you need help finding a [facility] and/or a training program? [...] Info) Description 09/29/2024 3:00 PM EDT Appointment [facility] [address] [place] [id number] Suresh Valencia MD [address] [place] [address] documented as of this encounter Procedures Procedure Name Priority Date/Time Associated Diagnosis Comments US PREG LMTD 1 OR MORE FETUS Routine 09/25/2024 8:28 AM EDT documented in this encounter Results * Ultrasound limited 1 or more fetus (09/25/2024 8:28 AM EDT) Anatomical Region Laterality Modality OB-FIRE PROTECTION EQUIPMENT TECHNICIAN Ultrasound us Not In System Ref Prov IMG US ORDERABLES Final R esult documented in this encounter Visit Diagnoses Not on filedocumented in this encounter Additional Health Concerns Assessment Noted Time PHQ-9 Depression Total Score: 0 10/27/19 10:25 AM EDT A Body Mass Index follow-up plan has been documented for the patient 08/10/2023 10:14 AM EDT documented as of this encounter Care Teams Bias Cutting Machine Operator Relationship Specialty Start Date End Date Armen Sánchez DO [address] [facility], [place] [address] PCP - General Family Medicine 08/25/23 documented as of this encounter
--- OUTSIDE RECORDS SUMMARY | 2024-09-25 10:22 | XMS_ITS | Encounter Summary ---
Author Organization [facility] s tem Address [id number] [address] [place] [address] Care Team Providers Care Trapeze Performer Name Role Phone PrincessArmen Cedric [place] Primary Care Provider Encounter Details Date Type Department Care Team (Late st Contact Info) Description 08/25/2023 [facility]phone [facility] - Family Medicine [address] [place] [address] Bernadette hZang CMA Social History Tobacco Use Types Packs/Day Years Used Date Smoking Tobacco: Every Day Cigarettes 1 13.2 Started: 08/01/2011 Smokeless Tobacco: Never Alcohol Use Standard Drinks/Week Comments Not Currently 0 (1 standard drink = 0.6 oz pur e alcohol) [facility] Utilities Answer Date Recorded In the past 12 months has [employer], gas, oil, or water company threatened [...] often do you attend chur ch or hoahaoism services? Never 08/25/2023 Do you belong to [...] Answer Date Recorded Total Score 6 08/25/2023 [facility] of Occupat ional Health - Occupational [...] Info) Description 09/29/2024 3:00 PM EDT Appointment [facility] [address] [place] [phone] Suresh Valencia MD [address] [place] [address] documented as of this encounter Visit Diagnoses Not on filedocumented in this encounter Additional Health Concerns Assessment Noted Time PHQ-9 Depression Total Score: 6 08/25/19 24 9:30 AM EDT A Body Mass Index follow-up plan has been documented for the patient 08/10/2023 10:14 AM EDT documented as of this encounter Care Teams Trapeze Performer Relationship Specialty Start Date End Date Armen Sánchez DO [address] [facility], [place] [address] PCP - General Family Medicine 08/25/23 documented as of this encounter
--- OUTSIDE RECORDS SUMMARY | 2024-09-25 10:22 | XMS_ITS | Encounter Summary ---
Author Organization [facility] Address [address] [place] [address] Care Team Providers Care Plastic Surgery Assistant Name Role Phone Emi Bronson Arpit [facility] Unavailable + [phone] Armen Sánchez MD Primary Care Provider + [phone] Encounter Details Date Type Department Care Team (Late st Contact Info) Description 05/24/[address] [facility] [address] [place] [address] Curtis Paez, [address] Daniella Draper, [facility] - [...] 1:40 PM EDT Routine [facility] [address] [place] [address] Curtis Paez, [address] [place] [address] documented as of this encounter Visit Diagnoses Not on filedocumented in this encounter Care Teams Plastic Surgery Assistant Relationship Specialty Start Date End Date Armen Sánchez MD [address] [place] [address] PCP - General Family Medicine 05/05/24 Emi Bronson, [facility] [address] [place] [address] Behavioral Health 04/12/24 documented as of this encounter
--- OUTSIDE RECORDS SUMMARY | 2024-09-25 10:22 | XMS_ITS | Clinical Summary ---
Author Organization [facility] Address [address] [place] [address] Care Team Providers Care Glass Wool Blanket Machine Feeder Name Role Phone AiyanaEmi [facility] Unavailable [phone] Armen Sánchez MD Primary Care Provider [phone]- [phone] Allergies Active Allergy Reactions Criticality Noted Date [...] Active Problems Problem Noted Date Diagnosed Date Placental abnormality in third trimester ([facility]) 09/21/2024 History of loop electrosurgi ledy excision procedure (LEEP) of cervix affecting , [facility] 09/21/2024 Cystic fibrosis carrier, antepartum [facility] Moderate episode of recurrent major depressive d isorder 10/25/2023 ALICIA (generalized anxiety disorder) 10/25/2023 Estimated Date of Delivery Comme nts Yes 12/12/2024 Based on last me nstrual period of 03/07/2024 Encounters Date Type Department Care Team Description 09/25/2024 Clinisync Result Encounter [facility] External Department Unsolicited Magan Paez, DO 09/21/2024 Abstract [facility] [address] [place] [address] Magan Paez, DO 09/21/2024 Abstract [facility] [address] [place] [address] Magan Paez, DO 09/21/2024 Clinisync Result Encounter [facility] External Department Unsolicited Magan Paez, DO 09/21/2024 Clinisync Result Encounter [facility] External Department Unsolicited Magan Paez, DO 09/21/2024 Orders Only [facility] [address] [place] [address] Magan Paez DO Placental abnormality in third trimester ([facility]); Cystic fibrosis carrier, antepartum ([facility]); History of loop electrosurgical excision procedure (LEEP) of cervix affecting , antepartum ([facility]) 09/21/[address] [address] [place] [address] Antoinette Jackman, ENVIRONMENTAL ENGINEER 09/19/[address] [address] [place] [address] Laura Godwin, ENVIRONMENTAL ENGINEER 09/18/2024 3:40 PM EDT Routine [facility] [address] [place] [address] Magan Paez DO Anxiety, generalized (Primary Dx); Second trimester ([facility]); 27 weeks gestation of ([facility]); Cystic fibrosis carrier, antepartum ([facility]) 09/18/2024 Bamboo flowsheet [facility] [address] [place] [address] Magan Paez, 09/18/2024 Travel 08/30/2024 9:50 AM EDT Routine [facility] [address] [place] [address] Jocy Ruby PA Second trimester ([facility]); 25 weeks gestation of ([facility]) 08/30/2024 Clinisync Result Encounter [facility] External Department Unsolicited Magan Paez, 08/30/2024 Bamboo flowsheet [facility] [address] [place] [address] Jocy Ruby PA 08/14/2024 10:30 AM EDT Procedure Visit [facility] [address] [place] [address] Magan Paez, Cystic fibrosis carrier, antepartum ([facility]); LGSIL on Pap smear of cervix 08/14/2024 Travel 08/01/2024 1:20 PM EDT Routine [facility] [address] [place] [address] Magan Paez DO Chlamydia trachomatis infection; 21 weeks gestation of ([facility]); Second trimester ([facility]); Diabetes mellitus screening 08/01/2024 Bamboo flowsheet [facility] [address] [place] [address] Magan Paez DO 08/01/2024 Travel 07/11/2024 12:00 PM EDT Clinical Support [facility] [address] [place] [address] Emi Bronson, [facility] Moderate episode of recurrent major depressive disorder (HCC); ALICIA (generalized anxiety disorder) 07/11/2024 Orders Only [facility] [address] [place] [address] Mary Quinn LPN 07/11/2024 Bamboo flowsheet [facility] [address] [place] [address] Emi Bronson, [facility] 07/11/2024 Travel 07/10/[address] [address] [place] [address] Warren Nely, MA 07/06/2024 8:30 AM EDT Routine [facility] [address] [place] [address] Jocy Ruby PA 17 weeks gestation of ([facility]); Second trimester ([facility]); Well woman exam with routine gynecological exam; Exposure to STD; Vaginal discharge 07/06/2024 Clinisync Result Encounter [facility]OM[facility] External Department Unsolicited Jocy Ruby PA 07/06/2024 External Result Encounter [facility]OM[facility] External Department Unsolicited Jocy Ruby PA 07/06/2024 Bamboo flowsheet [facility] [address] [place] [address] Jocy Ruby PA 07/05/2024 Travel 07/05/2024 Clinisync [...] PM EDT Routine [facility] OB [address] [place] [address] JeannineMagan vicente, DO [address] [facility] [place] [address] Procedures Procedure Name Priority Date/Time Associated Diagnosis Comments US OB BPP W NON-STRESS 09/25/2024 8:08 AM EDT US OB PLACENTA 09/21/2024 2:53 PM EDT US OB CERVICAL LENGTH 09/21/2024 2:40 PM EDT GLUCOSE 1 HOUR Routine 08/30/2024 11:28 AM EDT ALL CBC WITH AUTO DIFF Routine 08/30/2024 11:28 AM EDT POCT URINALYSIS DIPSTICK Routine 08/30/2024 11:24 AM EDT Second trimester ([facility]) COLPOSCOPY Routine 08/14/2024 2:19 PM EDT LGSIL on Pap smear of cervix RECURRENT VAGINITIS (HTRX) Routine 08/01/2024 2:52 PM EDT US OB 14+ WEEKS ANATOMY SCAN 07/28/2024 1:13 PM EDT RECURRENT VAGINITIS (HTRX) Routine 07/06/2024 12:13 PM EDT AFP, SERUM, OPEN SPINA BIFIDA Routine 07/06/2024 10:06 AM EDT POCT URINALYSIS DIPSTICK Routine 07/06/2024 9:19 AM EDT 17 weeks gestation of ([facility]) Second trimester ([facility]) IGP,APTIMA HPV,AGE GDLN Routine 07/06/2024 8:54 AM EDT PAP SMEAR Routine 07/06/2024 12:00 AM EDT US OB CERVICAL LENGTH 07/05/2024 8:10 AM EDT from Last 3 Months Results * US OB BPP W NON-STRESS (09/25/2024 8:08 AM EDT) Anatomical Region Laterality Modality Other 09/25/2024 8:08 AM EDT Narrative 09/25/2024 8:10 [place] [address] Ultrasound Report Signed Patient: MICHI SERRANO MR#: [id number] : 1995 Acct:[id number] Age/Sex: 29 / F ADM Date: Loc: [facility] 251-[address]: Magan Paez D.O. Ordering Physician: Magan Paez D.O. Date of Service: 09/24/24 Procedure(s): US OB BPP w non-stress Accession Number(s): [id number] cc: ARMEN SÁNCHEZ Corey D.O. The [place] [address] Patient Name: MICHI SRERANO MRN: [facility]:[id number] date: 1995 Sex: F Assigned Patient Location: [facility] Current Patient Location: [facility] Accession/Order Number: [id number] Exam Date: 09/25/2024 08:05 Report Date: 09/25/2024 08:08 At the request of: MAGAN PAEZ DO Procedure: US OB BPP w non-stress CLINICAL DATA: History of bleeding. Possible abruption. BIOPHYSICAL PROFILE: COMPARISON: None There is a single live intrauterine gestation in cephalic presentation. The reported gestational age is 28 weeks 5 days. The heart rate ifupevom103 beats per minute. FINDINGS: TONE: 1 or [...] Rahman M.D. 09/25/2024 8:08 AM Dictation Location: [place] [address] Electronically authenticated by: [id number] Y Date: 09/25/2024 08:08 Dictated By: Laura Rahman M.D. Signed By: 09/25/2410 DD/ 7 TD/TT: Mutuel Cashier: Procedure Note Radiology, Radiologist, MD - 09/25/2024 [place] [address] Ultrasound Report Signed Patient: MICHI SERRANO KMR#: [id number] : 1995Acct:[id number] Age/Sex: 29 FADM Date: Loc: [facility] 251-[address]: Magan Paez D.O. Ordering Physician: Magan Paez D.O. Date of Service: 09/24/24 Procedure(s): US OB BPP w non-stress Accession Number(s): [id number] cc: ARMEN SÁNCHEZ Corey D.O. The [place] [id number] Patient Name: MICHI SERRANO MRN: [id number] date: 1995 Sex: F Assigned Patient Location: [facility] Current Patient Location: [facility] Accession/Order Number: [id number] Exam Date: 09/25/2024 08:05 Report Date: 09/25/2024 08:08 At the request of: MAGAN PAEZ DO Procedure: US OB BPP w non-stress CLINICAL DATA: History of bleeding. Possible abruption. BIOPHYSICAL PROFILE: COMPARISON: None There is a single live intrauterine gestation in cephalic presentation.The reported gestational age is 28 weeks 5 days. The heart beats per minute. FINDINGS: TONE: 1 or [...] Rahman M.D. 09/25/2024 8:08 AM Dictation Location: [place] [address] Electronically authenticated by: [id number] Y Date: 508:08 Dictated By: Laura Rahman M.D. Signed By:09/25/24 0810 DD/ 0808 TD/TT: Mutuel Cashier: us Magan Paez DO [facility] IMAGING Final Result * US OB PLACENTA (09/21/2024 2:53 PM EDT) Anatomical Region Laterality Modality Other 09/21/2024 2:53 PM EDT Narrative 09/21/2024 2:56 [place] [address] Ultrasound Report Signed Patient: MICHI SERRANO MR#: [id number] : 1995 Acct:[id number] Age/Sex: 29 / F ADM Date: 09/21/24 Loc: US Attending Dr: Magan Paez D.O. Ordering Physician: Magan Paez D.O. Date of Service: 09/21/24 Procedure(s): US OB placenta Accession Number(s): [id number] cc: ARMEN SÁNCHEZ ; Magan Paez D.O. The [place] [id number] Patient Name: MICHI SERRANO MRN: [id number] date: 1995 Sex: F Assigned Patient Location: US Current Patient Location: US Accession/Order Number: [id number] Exam Date: 09/21/2024 14:41 Report Date: 09/21/2024 [...] Jr., D.O. 09/21/2024 2:53 PM Dictation Location: [place] [address] Electronically authenticated by: [id number] Y Date: 09/21/2024 14:53 Dictated By: Hugo Atkins M.D. Signed By: 09/21/24 1456 DD/ 1453 TD/TT: Mutuel Cashier: Procedure Note Radiology, Radiologist, - 09/21/[address] [address] Ultrasound Report Signed Patient: MICHI SERRANO KMR#: [id number] : 1995Acct:[id number] Age/Sex: 29 / FADM Date: 09/21/24 Loc: US Attending Dr: Magan Paez D.O. Ordering Physician: Magan Paez D.O. Date of Service: 09/21/24 Procedure(s): US OB placenta Accession Number(s): [id number] cc: ARMEN SÁNCHEZ ; Magan Paez D.O. [place] [address] Patient Name: MICHI SERRANO MRN: [id number] date: 1995 Sex: F Assigned Patient Location: US Current Patient Location: US Accession/Order Number: [id number] Exam Date: 09/21/2024 14:41 Report Date: 09/21/2024 [...] Jr., D.O. 09/21/2024 2:53 PM Dictation Location: [place] [address] Electronically authenticated by: [id number] Y Date: 4:53 Dictated By: Hugo Atkins M.D. Signed By:09/21/24 1456 DD/ 1453 TD/TT: Mutuel Cashier: us Magan Paez DO [facility] IMAGING Final Result * US OB CERVICAL LENGTH (09/21/2024 2:40 PM EDT) Only the most recent of2 resultswithin the time period is included. Anatomical Region Laterality Modality Other 09/21/2024 2:40 PM EDT Narrative 09/21/2024 2:43 [place] [address] Ultrasound Report Signed Patient: MICHI SERRANO MR#: [id number] : 1995 Acct:[id number] Age/Sex: 29 / F ADM Date: 09/21/24 Loc: US Attending Dr: Magan Paez D.O. Ordering Physician: Magan Paez D.O. Date of Service: 09/21/24 Procedure(s): US OB cervical length Accession Number(s): [id number] cc: ARMEN SÁNCHEZ ; Magan Paez D.O. [place] [address] Patient Name: MICHI SERRANO MRN: [id number] date: 1995 Sex: F Assigned Patient Location: US Current Patient Location: US Accession/Order Number: [id number] Exam Date: 09/21/2024 14:39 Report Date: 09/21/2024 [...] Jr., D.O. 09/21/2024 2:40 PM Dictation Location: [place] [address] Electronically authenticated by: [id number] Y Date: 09/21/2024 14:40 Dictated By: Hugo Atkins M.D. Signed By: 09/21/24 1443 DD/ 1440 TD/TT: Mutuel Cashier: Procedure Note Radiology, Radiologist, MD - 09/21/2024 [place] [address] Ultrasound Report Signed Patient: MICHI SERRANO KMR#: [id number] : 1995Acct:[id number] Age/Sex: 29 / FADM Date: 09/21/24 Loc: US Attending Dr: Magan Paez D.O. Ordering Physician: Magan Paez D.O. Date of Service: 09/21/24 Procedure(s): US OB cervical length Accession Number(s): [id number] cc: ARMEN SÁNCHEZ ; Magan Paez D.O. The [place] [address] Patient Name: MICHI SERRANO MRN: [id number] date: 1995 Sex: F Assigned Patient Location: US Current Patient Location: US Accession/Order Number: [id number] Exam Date: 09/21/2024 14:39 Report Date: 09/21/2024 [...] Jr., D.O. 09/21/2024 2:40 PM Dictation Location: [place] [address] Electronically authenticated by: [id number] Y Date: 4:40 Dictated By: Hugo Atkins M.D. Signed By:09/21/24 1443 DD/ 1440 TD/TT: Mutuel Cashier: us Magan Paez DO [facility] IMAGING Final Result * GLUCOSE 1 HOUR (08/30/2024 11:28 AM EDT) GLUCOSE 1 HOUR 66 <130 mg/dL [facility] 08/30/2024 11:2 8 AM EDT 08/30/2024 11:29 AM EDT Narrative ALFIE - 08/30/2024 12:05 PM EDT us Magan Jeannine DO LAB BLOOD ORDERABLES Final Resul t [facility] * (ABNORMAL) ALL CBC WITH AUTO [...] Narrative CLINISYNC - 08/30/2024 11:34 AM EDT us Magan Paez DO [facility] Final Result [facility] * (ABNORMAL) POCT urinalysis dipstick manually [...] Positive Urine 08/30/2024 11:2 4 AM EDT us Magan Paez DO POINT OF CARE TEST [...] resultswithin the time period is included. Pathologist [facility] ATOPOBIUM VAGINAE 0.000 19.961 - 24.689 ppm 08/02/2024 7:05 AM EDT [facility] ATOPOBIUM VAGINAE Not Detected 19.961 - 24.689 ppm 08/02/2024 7:05 AM EDT [facility] BV[facility] 2,3 (BACTERIAL VAGINOSIS ASSOCIATED BACTERIA 2, 3); MOBILUNCUS SPP 0.000 19.961 - 24.689 ppm 08/02/2024 7:05 AM EDT [facility] BVAB 2,3 (BACTERIAL VAGINOSIS ASSOCIATED BACTERIA 2, 3); MOBILUNCUS SPP Not Detected 19.961 - 24.689 ppm 08/02/2024 7:05 AM EDT [facility] ILIANA ALBICANS, PARAPSILOSIS, TROPICALIS 0.000 19.961 - 30.770 ppm 08/02/2024 7:05 AM EDT [facility] ILIANA ALBICANS, PARAPSILOSIS, TROPICALIS Not Detected 19.961 - 30.770 ppm 08/02/2024 7:05 AM EDT [facility] ILIANA GLABRATA 0.000 23.000 - 32.138 ppm 08/02/2024 7:05 AM EDT [facility] ILIANA GLABRATA Not Detected 23.000 - 32.138 ppm 08/02/2024 7:05 AM EDT [facility] ILIANA KRUSEI 0.000 23.000 - 32.271 ppm 08/02/2024 7:05 AM EDT [facility] ILIANA KRUSEI Not Detected 23.000 - 32.271 ppm 08/02/2024 7:05 AM EDT [facility] CHLAMYDIA TRACHOMATIS 0.000 23.000 - 31.467 ppm 08/02/2024 7:05 AM EDT [facility] CHLAMYDIA TRACHOMATIS Not Detected 23.000 - 31.467 ppm 08/02/2024 7:05 AM EDT [facility] GARDNERELLA VAGINALIS 0.000 19.961 - 24.689 ppm 08/02/2024 7:05 AM EDT [facility] GARDNERELLA VAGINALIS Not Detected 19.961 - 24.689 ppm 08/02/2024 7:05 AM EDT [facility] MEGASPHAERA (TYPES 1, 2) 0.000 19.961 - 24.689 ppm 08/02/2024 7:05 AM EDT [facility] MEGASPHAERA (TYPES 1, 2) Not Detected 19.961 - 24.689 ppm 08/02/2024 7:05 AM EDT [facility] NEISSERIA GONORRHOEAE 0.000 23.000 - 32.117 ppm 08/02/2024 7:05 AM EDT [facility] NEISSERIA GONORRHOEAE Not Detected 23.000 - 32.117 ppm 08/02/2024 7:05 AM EDT [facility] TRICHOMONAS VAGINALIS 0.000 23.000 - 32.119 ppm 08/02/2024 7:05 AM EDT [facility] TRICHOMONAS VAGINALIS Not Detected 23.000 - 32.119 ppm 08/02/2024 7:05 AM EDT [facility] MYCOPLASMA GENITALIUM 0.000 19.961 - 24.689 ppm 08/02/2024 7:05 AM EDT [facility] MYCOPLASMA GENITALIUM Not Detected 19.961 - 24.689 ppm 08/02/2024 7:05 AM EDT [facility] Tissue 08/01/2024 2:52 PM EDT 08/02/2024 2:14 AM EDT us Magan Paez DO LAB BLOOD ORDERABLES Final Resul t [facility] [address] [place] [address] * US OB 14+ weeks anatomy scan (07/28/2024 1:13 PM EDT) Anatomical Region Laterality Modality Body Ultrasound 07/28/2024 1:13 PM EDT Narrative 07/28/2024 1:13 PM EDT THIS EXAM WAS PERFORMED AT [facility] NAME: JEREMY BORDEN : 1995 SEX: F Accession Number: [id number] ORDERING PHYSICIAN: CHRISSIE SNOW REFERRING PHYSICIAN: MAGAN PAEZ Coding ----- --------- Procedures 40527: Ultrasound, uterus, real time with image documentation, and maternal evaluation plus detailed anatomic examination, transabdominal approach;single or first gestation 86144: Transvaginal Ultrasound (OB) 93079: Amniocentesis; diagnostic Indication ----- --------- Screening for Anatomic Survey, Screening for cervical length, Abnormal finding on screening of mother-MOB + FOB CF carriers, Depression, Anxiety History ----- --------- OB History 1. Para 0 [id number] Current ----- --------- Cell free DNA low [...] EFW (oz) 14 oz EFW by: Hadlock (NUO-ZG-ML-FL) Extended Tibia 28.6 mm 20w 3d 55% Dank Newspaper Manager 6.6 mm CM 5.3 mm 57% Nicolaides [...] view. RVOT view. LVOT view. 3-vessel view. 4-mujxeb-vguzgyv view. Situs. Bicaval view. Ductal arch view. [...] ----- --------- Performing Physicain: Suresh Valencia MD, .[employer] Weaver: Damaris Johnson RDMS Invasive Procedures ----- --------- [...] rates noted. Recommendations ----- --------- Please see [facility] documentation from today. The patient is scheduled in four week(s) to complete anatomic survey. Subsequent follow up or other follow up as clinically determined by primary OB provider unless otherwise specified by [facility]. Results forwarded to ordering provider so they can follow up with the patient as necessary. The copy-to physician of this order is MAGAN Aguirre The ordering physician of this order is CHRISSIE Velázquez Procedure Note Radiology, Radiologist, MD - 07/28/2024 THIS EXAM WAS PERFORMED AT [facility] NAME: JEREMY BORDEN : 1995 SEX: F Accession Number: [id number] ORDERING PHYSICIAN: CHRISSIE SNOW REFERRING PHYSICIAN: MAGAN PAEZ Coding ----- --------- Procedures 04612: Ultrasound, uterus, real time with imagedocumentation, and maternal evaluation plus detailed anatomic examination, transabdominalapproach;single or first gestation 09626: Transvaginal Ultrasound (OB) 69916: Amniocentesis; diagnostic Indication ----- --------- Screening for Anatomic Survey, Screening for cervical length, Abnormalfinding on screening of mother-MOB + FOB CF carriers, Depression, Anxiety History ----- --------- OB History 1. Para 0 [id number] Current ----- --------- Cell free DNA low [...] EFW (oz) 14 oz EFW by: Hadlock (KIE-NE-EW-FL) Extended Tibia 28.6 mm 20w 3d 55% Dank Newspaper Manager 6.6 mm CM 5.3 mm 57% Nicolaides [...] 4-chamber view. RVOT view. LVOT view. 3-vessel view.2-paymxp-ellqfxv view. Situs. Bicaval view. Ductal arch view. [...] ----- --------- Performing Physicain: Suresh Valencia MD, .[employer] Weaver: Damaris Johnson RDMS Invasive Procedures ----- --------- [...] rates noted. Recommendations ----- --------- Please see [facility] documentation from today. The patient is scheduled in four week(s) to complete anatomic survey. Subsequent follow up or other follow up as clinically determined byprimary OB provider unless otherwise specified by [facility]. Results forwarded to ordering provider so they can follow up with thepatient as necessary. The copy-to physician of this order is MAGAN Aguirre The ordering physician of this order is CHRISSIE Velázquez us Magan Jeannine DO IMG OB US PROCEDURES Final Resul t * AFP, SERUM, OPEN SPINA BIFIDA (07/06/2024 10:06 AM EDT) [facility] RESULTS Report . [facility] TEST RESULTS: *Screen Negative* . [facility] GEST. AGE ON COLLECTION DATE 17.1 . weeks [facility] GESTAT. AGE BASED ON LMP . [facility] Comment: Recalculations are not recommended when gestational dating by LMP and ultrasound are within 10 days. MAT[age] 31.1 . [age] [facility] RACE . [facility] WEIGHT 186 . lbs [facility] INSULIN DEP DIABETES No . [facility] MULTIPLE GESTATION No . [facility] AFP VALUE 28.4 . ng/mL [facility] AFP MOM 0.85 . [facility] [place] [address] [place] [address] . [facility] INTERPRETATION Comment . [facility] Comment: Interpretation: Screen Negative This result [...] Customer Services to discuss available options. The [employer] recommends amniocentesis be offered to women age 35 and older. COMMENT: Comment . [facility] Comment: Joan Shetty, Ph.D., [facility] Director References: Available Upon Request. Multiples Of Median Cutoffs For AFP Elevations [place]ont 2.5 Black 2.8 IDD 2.0 Twins 4.5 Abbreviation Definitions IDD - Insulin Dep Diabetes OSBR - Open Spina Bifida Risk For further inquiries contact [employer] at [phone]. This test was developed and its performance characteristics determined by [employer]. It has not been cleared or approved by the Food and Drug Administration. Performed at: [facility] [employer] [address] [place], [place] [id number] Manager Supply Chain: Sonja Esposito [facility], Phone: [phone] 07/06/2024 10:0 6 AM EDT 07/06/2024 10:07 AM EDT Narrative CLINISYNC - 07/08/2024 2:07 AM EDT N N LMP [id number] 1 17 N 1 Y 186 N N N N N White/ us Jocy YOUNG LAB BLOOD ORDERABLES Final Resul t [facility]IN[facility]NC [facility] * (ABNORMAL) IGP,APTIMA HPV,AGE GDLN (07/06/2024 8:54 AM EDT) AGE GDLN ACOG TESTING Note . [facility] Comment: TESTS RESULT FLAG UNITS REF RANGE LAB Clinician Provided Cytology Information Source.............Cervix Other.............. No. of containers..01 ThinPrep Vial Age Algo ACOG Charley... 30-65 01 FLAG LEGEND: L-Low Normal,H-High Normal,LL-Alert Low,HH-Alert High <-Panic Low,>-Panic High,A-Abnormal,AA-Critical Abnormal Performed at: 01 =G [facility] [place] [address] Patricia Houser MD, IGP, APTIMA HPV, RFX 16/18,45 Note(A) . [facility] Comment: TESTS RESULT FLAG UNITS REF RANGE LAB DIAGNOSIS: [A] 02 EPITHELIAL CELL ABNORMALITY. LOW GRADE SQUAMOUS INTRAEPITHELIAL LESION (LSIL). Specimen adequacy: 02 Satisfactory for evaluation. Endocervical and/or squamous metaplastic cells (endocervical component) are present. Performed by: 03 Kelly Grant Singing Waiter Or Waitress (ASCP) Electronically si... Opal Ford MD, Pathologist [...] High,A-Abnormal,AA-Critical Abnormal Performed at: 02 WB [facility] [address] [place] [address] Patricia Houser MD, 03 KWCYT [facility] [place] [facility] [address] [place] [address] Don Hawthorne MD, HPV APTIMA Negative Negative [facility] Comment: This nucleic acid amplification test detects fourteen high- risk HPV types (16,18,31,33,35,39,45,51,52,56,58,59,66,68) without differentiation. Performed at: = - [facility]rend[address] [place], [place] [id number] Manager Supply Chain: Patricia Houser MD, Phone: [phone] Performed at: - [facility] [place], [place] [id number] Manager Supply Chain: Patricia Houser MD, Phone: [phone] 07/06/2024 8:54 AM EDT 07/06/2024 12:15 PM EDT Narrative CLINISYNC - 07/11/2024 4:09 PM EDT SPATULA-ALONE CERVIX Jocy YOUNG LAB BLOOD ORDERABLES Final Resul t [facility] * Pap Smear (07/06/2024 12:00 AM EDT) Swab Cervical swab / Unknown Jeannine Mcfarland [facility] LAB CYTOLOGY ORDERABLES Final Result EXTERNAL LAB from Last 3 Months Insurance * Guarantor: Michi Serrano Account Type Relation to Patient Date of Phone Billing Address Personal/Family Self 1995 [address] [place] [address] [facility] Care Teams Glass Wool Blanket Machine Feeder Relationship Specialty Start Date End Date Armen Sánchez MD [address] [place] [address] PCP - General Family Medicine 05/05/24 Emi Bronson [facility] [facility] [address] [place] [address] Behavioral Health 04/12/24
== END 2024-09-24 19:16 | disposition home or self-care (01) ==
LOC: FBC 16:12 → FBCO 09-25 10:18
PROVIDERS: PCP Family Medicine; Visit Provider Obstetrics & Gynecology
DX: O43.893 Other placental disorders, third trimester (principal); Z3A.28 28 weeks gestation of pregnancy
CPT/HCPCS: 59025; 76815; 76818

== ENCOUNTER 2024-09-26 20:04 | Outpatient (OUT) | payer OTHER, SELFPAY ==
--- OUTSIDE RECORDS SUMMARY | 2014-12-19 09:30 | XMS_ITS | Continuity of Care Document ---
Author Organization [facility] Address [address] [place] [address] Phone Care Team Providers Care Cleaning Matron Name Role Phone Yasmin Turcios MD Unavailable [...] Diagnoses Date Provider Providers Copied on Encounter [facility], [address], [place], [place], [address], tel:[phone] [facility] No Information Dec- 5 Tam NULL Yasmin[address] [place], [place], [address], [place]. tel:[phone] [facility], [address], [place], [place], [address], tel:[phone] [facility] contraception (chief complaint) Test - NegativeSubse q. Contraceptive Surveillance Dec- 0 5 Tam [address] [place], [place], [address], [place]. tel:[phone] Init Preven Meds E&m New Pt; 18-39 [facility], [address], [place], [place], [address], [place] tel:[phone] [facility] annual exam (chief complaint) ROUTINE FORECLOSURE FIELD INSPECTOR EXAMINATIONPr egnancy Test - Negative Tam NULL Yasmin. [address] [place], [place], [address], [place]. tel:[phone] Family History Family Member Type Diagnosis Age At Onset Paternal grandmother Problem (finding) breast cancer Payers Payer name Insurance type Covered constitution party ID Authoriza tion(s) Medical [facility] [place] [id number] Social History Type Description Quantity Date Captured [...]
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
--- OUTSIDE RECORDS SUMMARY | 2024-09-26 20:06 | XMS_ITS | Encounter Summary ---
Author Organization [facility] Address [address] [place] [address] Care Team Providers Care Distribution Superintendent Name Role Phone Emi Bronson Arpit [facility] Unavailable + [phone] Armen Sánchez MD Primary Care Provider + [phone] Encounter Details Date Type Department Care Team (Late st Contact Info) Description 09/21/2024 Abstract [facility] OB [address] [facility] [address] Curtis Paez, [address] Daniella [place], [facility] - [...] Description 10/03/2024 8:40 AM EDT Routine [facility] [address] [place] [address] Curtis Paez, [address] [place] [address] documented as of this encounter Visit Diagnoses Not on filedocumented in this encounter Care Teams Distribution Superintendent Relationship Specialty Start Date End Date Armen Sánchez MD [address] [place] [address] PCP - General Family Medicine 05/05/24 Emi Bronson, [facility] [address] [place] [address] Behavioral Health 04/12/24 documented as of this encounter
--- OUTSIDE RECORDS SUMMARY | 2024-09-26 20:06 | XMS_ITS | Encounter Summary ---
Author Organization [facility] Address [address] [place] [address] Care Team Providers Care Frame Nailer Name Role Phone Galen Bronsonalfred Munson [facility] Unavailable + [phone] Armen Sánchez MD Primary Care Provider + [phone] Encounter Details Date Type Department Care Team [...] AM EDT Routine [facility] OB [address] [facility] [place] [place] [address] Curtis Paez DO [address] [place], [place] [id number] documented as of this encounter Visit Diagnoses Not on filedocumented in this encounter Care Teams Frame Nailer Relationship Specialty Start Date End Date Armen Sánchez MD [address] [place] [address] PCP - General Family Medicine 05/05/24 Emi Bronson [facility] [address] [place] [address] Behavioral Health 04/12/24 documented as of this encounter
--- OUTSIDE RECORDS SUMMARY | 2024-09-26 20:06 | XMS_ITS | Encounter Summary ---
Author Organization [facility] Address [address] [place] [address] Care Team Providers Care Mis Specialist Name Role Phone Emi Bronson Arpit [facility] Unavailable + [phone] Armen Sánchez MD Primary Care Provider + [phone] Encounter Details Date Type Department Care Team (Late st Contact Info) Description 09/18/2024 Bamboo flowsheet [facility] OB [address] [place] [address] Curtis Paez, [address] Daniella [place], [id number] Social History Tobacco Use Types Packs/Day Years [...] AM EDT Routine [facility] OB [address] [place] [address] Curtis Paez, [address] [place] [address] documented as of this encounter Visit Diagnoses Not on filedocumented in this encounter Care Teams Mis Specialist Relationship Specialty Start Date End Date Armen Sánchez MD [address] [place] [address] PCP - General Family Medicine 05/05/24 Emi Bronson [facility] [address] [place] [address] Behavioral Health 04/12/24 documented as of this encounter
--- OUTSIDE RECORDS SUMMARY | 2024-09-26 20:06 | XMS_ITS | Encounter Summary ---
Author Organization [facility] Address [address] [place] [address] Care Team Providers Care Regional Project Manager Name Role Phone Jessica Bronsonmadeline Munson [facility] Unavailable + [phone] MD Primary Care Provider + [phone] Encounter Details Date Type Department Care Team (Late st Contact Info) Description 09/21/2024 Clinisync Result Encounter [facility] External Department Unsolicited Magan Paez DO [address] [place] [address] [place] [address] Social History Tobacco Use Types Packs/Day Years [...] Routine [facility] OB [address] [place] [phone] Magan Paez DO [address] [place] [address] [place] [address] documented as of this encounter Procedures Procedure Name Priority Date/Time Associated Diagnosis Comments US OB PLACENTA 09/21/2024 2:53 PM EDT documented in this encounter Results * US OB PLACENTA (09/21/2024 2:53 PM EDT) Anatomical Region Laterality Modality Other 09/21/2024 2:53 PM EDT Narrative 09/21/2024 2:56 PM EDT [address] [address] Ultrasound Report Signed Patient: MICHI SERRANO MR#: [id number] : 1995 Acct:[id number] Age/Sex: 29 / F ADM Date: 09/21/24 Loc: US Attending Dr: Magan Paez D.O. Ordering Physician: Magan Paez D.O. Date of Service: 09/21/24 Procedure(s): US OB placenta Accession Number(s): [id number] cc: [address] Corey D.O. [address] [address] Patient Name: MICHI SERRANO MRN: [id number] date: 1995 Sex: F Assigned Patient Location: US Current Patient Location: US Accession/Order Number: [id number] Exam Date: 09/21/2024 14:41 Report Date: 09/21/2024 14:53 At the request of: MAGAN APEZ DO Procedure: US OB placenta Placenta ultrasound. [...] Jr., D.O. 09/21/2024 2:53 PM Dictation Location: [place] [address] Electronically authenticated by: [id number] Y Date: 09/21/2024 14:53 Dictated By: Hugo Atkins M.D. Signed By: 09/21/24 1456 DD/ 1453 TD/TT: Communication Coordinator: Procedure Note Radiology, Radiologist, MD - 09/21/2024 [place] [address] Ultrasound Report Signed Patient: MICHI SERRANO KMR#: [id number] : 1995Acct:[id number] Age/Sex: 29 / FADM Date: 09/21/24 Loc: US Attending Dr: Magan Paez D.O. Ordering Physician: Magan Paez D.O. Date of Service: 09/21/24 Procedure(s): US OB placenta Accession Number(s): [id number] cc: [address] ; Magan Paez D.O. The [place] [id number] Patient Name: MICHI SERRANO MRN: [id number] date: 1995 Sex: F Assigned Patient Location: US Current Patient Location: US Accession/Order Number: [id number] Exam Date: 09/21/2024 14:41 Report Date: 09/21/2024 [...] Jr., D.O. 09/21/2024 2:53 PM Dictation Location: [employer] Electronically authenticated by: [id number] Y Date: 4:53 Dictated By: Hugo Atkins M.D. Signed By:09/21/24 1456 DD/ 1453 TD/TT: Communication Coordinator: us Magan Jeannine DO [facility] Final Result documented in this encounter Visit Diagnoses Not on filedocumented in this encounter Care Teams Regional Project Manager Relationship Specialty Start Date End Date Armen Street MD [address] [place] [address] PCP - General Family Medicine 05/05/24 Emi Bronson [facility] [address] [place] [address] Behavioral Health 04/12/24 documented as of this encounter
--- OUTSIDE RECORDS SUMMARY | 2024-09-26 20:07 | XMS_ITS | Encounter Summary ---
Author Organization [facility] tem Address [id number] [address] [place] [address] Care Team Providers Care Lead Web Developer Name Role Phone PrincessArmen Cedric [place] Primary Care Provider Encounter Details Date Type Department Care Team (Late st Contact Info) Description 09/25/2024 Orders Only Maternal- Medicine at [facility] [address] [place] [address] Ref Prov, [place] [address] Social History Tobacco Use Types Packs/Day Years Used Date Smoking Tobacco: Every Day Cigarettes 1 13.2 Started: 08/01/2011 Smokeless Tobacco: Never Alcohol Use Standard Drinks/Week Comments Not Currently 0 (1 standard drink = 0.6 oz pur e alcohol) [facility] Utilities Answer Date Recorded In the past 12 months has [employer], gas, oil, or water company threatened to [...] often do you attend chur ch or baptism services? Never 01/27/2024 Do you belong to any clubs o r organizations such as jew groups, unions, fraternal or athletic groups, or [...] Answer Date Recorded Total Score 0 10/27/2023 [facility] of Occupat ional Health - Occupational Stress [...] Recorded Do you need help finding a motion picture & television hospitalal career center and/or a training program? [...] Description 09/29/2024 3:00 PM EDT Appointment [facility] US Imaging [address] [place] [address] Suresh Valencia MD [address], [address] [place] [address] documented as of this encounter Procedures Procedure Name Priority Date/Time Associated Diagnosis Comments US PREG LMTD 1 OR MORE FETUS Routine 09/25/2024 8:28 AM EDT documented in this encounter Results * Ultrasound limited 1 or more fetus (09/25/2024 8:28 AM EDT) Anatomical Region Laterality Modality OB-DIAGRAMMER AND SEAMER Ultrasound us Not In System Ref Prov [...] as of this encounter Care Teams Lead Web Developer Relationship Specialty Start Date End Date Armen Sánchez DO [address] [facility] [place] [address] PCP - General Family Medicine 08/25/23 documented as of this encounter
--- OUTSIDE RECORDS SUMMARY | 2024-09-26 20:07 | XMS_ITS | Encounter Summary ---
Author Organization [facility] Nater[facility] s tem Address [facility] [address] [place] [address] Care Team Providers Care Hand Mexican Food Maker Name Role Phone MasoodArmen silverman Primary Care Provider Encounter Details Date Type Department Care Team (Late st Contact Info) Description 05/01/2024 Orders Only [facility] Internal Medicine - Family Medicine [address] [place] [address] Ref Prov, [place] [address] Social History Tobacco Use Types Packs/Day Years Used Date Smoking Tobacco: Every Day Cigarettes 1 13.2 Started: 08/01/2011 Smokeless Tobacco: Never Alcohol Use Standard Drinks/Week Comments Not Currently 0 (1 standard drink = 0.6 oz pur e alcohol) [facility] Utilities Answer Date Recorded In the past 12 months has [employer], gas, oil, or water company threatened to [...] often do you attend chur ch or bahai services? Never 01/27/2024 Do you belong to any clubs o r organizations such as caodaism groups, unions, fraternal or athletic groups, or [...] Answer Date Recorded Total Score 0 10/27/2023 [facility] of Occupat ional Health - Occupational [...] Recorded Do you need help finding a [facility] career center and/or a training program? [...] Info) Description 09/29/2024 3:00 PM EDT Appointment [facility] US Imaging [address] [place] [address] Suresh Valencia MD [address], [address] [place] [address] documented as of this encounter Procedures Procedure [...] documented as of this encounter Care Teams Hand Mexican Food Maker Relationship Specialty Start Date End Date Armen Sánchez DO [address] [facility], [place] [address] PCP - General Family Medicine 08/25/23 documented as of this encounter
--- OUTSIDE RECORDS SUMMARY | 2024-09-26 20:07 | XMS_ITS | Encounter Summary ---
Author Organization [facility] Address [address] [place] [place] [address] Care Team Providers Care Clinical Informaticist Name Role Phone Emi Bronson [facility] Unavailable + [phone] Armen Sánchez MD Primary Care Provider + [phone] Encounter Details Date Type Department Care Team (Late st Contact Info) Description 12/27/2023 Abstract [facility] [address] [place] [address] Emi Bronson, [facility] [address] [place] [address] Social History Tobacco Use Types Packs/Day Years [...] EDT Routine [facility] OB [address] [place] [address] Curtis Paez, DO [address] [facility] [place] [address] documented as of this encounter Visit Diagnoses Not on filedocumented in this encounter Care Teams Clinical Informaticist Relationship Specialty Start Date End Date Armen Sánchez MD [address] [place] [address] PCP - General Family Medicine 05/05/24 Emi Bronson [facility] [address] [place] [address] Behavioral Health 04/12/24 documented as of this encounter
--- OUTSIDE RECORDS SUMMARY | 2024-09-26 20:07 | XMS_ITS | Encounter Summary ---
Author Organization [facility] Address [address] [place] [address] Care Team Providers Care Account Group Supervisor Name Role Phone Jessica Bronsonmadeline Munson [facility] Unavailable + [phone] MD Primary Care Provider + [phone] Encounter Details Date Type Department Care Team (Late st Contact Info) Description 09/25/2024 Clinisync Result Encounter [facility] External Department Unsolicited Magan Paez DO [address] [place] [address] [place] [address] Social History Tobacco Use Types Packs/Day Years [...] Routine [facility] OB [address] [place] [address] Magan Paez DO [address] [place] [address] [place] [address] documented as of this encounter Procedures Procedure Name Priority Date/Time Associated Diagnosis Comments US OB BPP W NON-STRESS 09/25/2024 8:08 AM EDT documented in this encounter Results * US OB BPP W NON-STRESS (09/25/2024 8:08 AM EDT) Anatomical Region Laterality Modality Other 09/25/2024 8:08 AM EDT Narrative 09/25/2024 8:10 [place] [address] Ultrasound Report Signed Patient: MICHI SERRANO MR#: [id number] : 1995 Acct:[id number] Age/Sex: 29 / F ADM Date: Loc: [facility] 251-[address]: Magan Paez D.O. Ordering Physician: Magan Paez D.O. Date of Service: 09/24/24 Procedure(s): US OB BPP w non-stress Accession Number(s): [id number] cc: [address]EN [address] Corey D.O. The [address] [address] Patient Name: MICHI SERRANO MRN: [id number] date: 1995 Sex: F Assigned Patient Location: [facility] Current Patient Location: [facility] Accession/Order Number: [id number] Exam Date: 09/25/2024 08:05 Report Date: 09/25/2024 08:08 At the request of: MAGAN PAEZ DO Procedure: US OB BPP w non-stress CLINICAL DATA: History of bleeding. Possible abruption. BIOPHYSICAL PROFILE: COMPARISON: None There is a single live intrauterine gestation in cephalic presentation. The reported gestational age is 28 weeks 5 days. The heart rate oybaptde524 beats per minute. FINDINGS: TONE: 1 or [...] Rahman M.D. 09/25/2024 8:08 AM Dictation Location: [place] [address] Electronically authenticated by: [id number] Y Date: 09/25/2024 08:08 Dictated By: Laura Rahman M.D. Signed By: 09/25/2410 DD/ TD/TT: Callisthenics Instructor: Procedure Note Radiology, Radiologist, MD - 09/25/2024 [place] [address] Ultrasound Report Signed Patient: MICHI SERRANO KMR#: [id number] : 1995Acct:[id number] Age/Sex: Date: Loc: [facility] 251-[address]: Magan Paez D.O. Ordering Physician: Magan Paez D.O. Date of Service: 09/24/24 Procedure(s): US OB BPP w non-stress Accession Number(s): [id number] cc: [address] ; Magan Paez D.O. The [place] [address] Patient Name: MICHI SERRANO MRN: [id number] date: 1995 Sex: F Assigned Patient Location: [facility] Current Patient Location: [facility] Accession/Order Number: [id number] Exam Date: 09/25/2024 08:05 Report Date: 09/25/2024 08:08 At the request of: MAGAN PAEZ DO Procedure: US OB BPP w non-stress CLINICAL DATA: History of bleeding. Possible abruption. BIOPHYSICAL PROFILE: COMPARISON: None There is a single live intrauterine gestation in cephalic presentation.The reported gestational age is 28 weeks 5 days. The heart ypfieeyvmjwz757 beats per minute. FINDINGS: TONE: 1 or [...] Rahman M.D. 09/25/2024 8:08 AM Dictation Location: [place] [address] Electronically authenticated by: [id number] Y Date: 508:08 Dictated By: Laura Rahman M.D. Signed By:09/25/24 0810 DD/ 0808 TD/TT: Callisthenics Instructor: [facility] Final Result documented in this encounter Visit Diagnoses Not on filedocumented in this encounter Care Teams Account Group Supervisor Relationship Specialty Start Date End Date Armen Street MD [address] [place] [address] PCP - General Family Medicine 05/05/24 Emi Bronson [facility] [address] [place] [address] Behavioral Health 04/12/24 documented as of this encounter
--- OUTSIDE RECORDS SUMMARY | 2024-09-26 20:07 | XMS_ITS | Encounter Summary ---
Author Organization [facility] Address [address] [place] [address] Care Team Providers Care Tree Driller Name Role Phone Galen Bronsonalfred Munson [facility] Unavailable + [phone] Armen Sánchez MD Primary Care Provider + [phone] Encounter Details Date Type Department Care Team (Late st Contact Info) Description 09/21/2024 Orders Only [facility] OB [address] [place] [address] Curtis Paez, DO [address] [place], [place] [address] Placental abnormality in third trimester (HHS-HCC); Cystic [...] of this encounter Progress Notes * Antoinette Jackman LPN - 09/21/2024 3:29 PM EDT 3:30pm Called patient and informed her that results were received from US today. Dr. Paez recommends that patient have an NST obtained tomorrow. Called [facility] and spoke with Fariba valverde NST order was received. Faxed referral STAT back to [facility] and US orders were faxed to [facility] scheduling that they did not receive previously. Antoinette Erwin LPN documented in this encounter Plan of Treatment Upcoming Encounters Date Type Department Care Team (Late st Contact Info) Description 10/03/2024 8:40 AM EDT Routine [facility] OB [address] [facility] [address] Curtis Paez, DO [address] [facility] [address] [place] [place], [place] [address] Scheduled Orders Name Type Priority Associated Diagnoses [...] (HHS-HCC) documented in this encounter Care Teams Tree Driller Relationship Specialty Start Date End Date Armen Sánchez MD [address] [place] [address] PCP - General Family Medicine 05/05/24 Emi Bronson, [facility] [address] [place] [address] Behavioral Health 04/12/24 documented as of this encounter
--- OUTSIDE RECORDS SUMMARY | 2024-09-26 20:07 | XMS_ITS | Encounter Summary ---
Author Organization [facility] Address [id number] [address] [place] [address] Care Team Providers Care Assembler Lay Ups Name Role Phone PrincessArmen Cedric [place] Primary Care Provider Encounter Details Date Type Department Care Team (Late st Contact Info) Description 08/25/2023 [facility]phone [facility] [address] [place] [address] Bernadette Zhang CMA Social History Tobacco Use Types Packs/Day Years Used Date Smoking Tobacco: Every Day Cigarettes 1 13.2 Started: 08/01/2011 Smokeless Tobacco: Never Alcohol Use Standard Drinks/Week Comments Not Currently 0 (1 standard drink = 0.6 oz pur e alcohol) [facility] Utilities Answer Date Recorded In the past 12 months has [employer] gas, oil, or water company threatened to [...] often do you attend chur ch or tenriism services? Never 08/25/2023 Do you belong to any clubs o r organizations such as moravian groups, unions, fraternal or athletic groups, or [...] Date Recorded Total Score 6 08/25/2023 [facility] of Occupat ional Health - [...] Recorded Do you need help finding a [facility] career center and/or a training program? [...] 3:00 PM EDT Appointment [facility] US Imaging [address] [place] [phone] Suresh Valencia MD [address], [address] [place] [address] documented as of this encounter Visit Diagnoses Not on filedocumented in this encounter Additional Health Concerns Assessment Noted Time PHQ-9 Depression Total Score: 6 08/25/19 24 9:30 AM EDT A Body Mass Index follow-up plan has been documented for the patient 08/10/2023 10:14 AM EDT documented as of this encounter Care Teams Assembler Lay Ups Relationship Specialty Start Date End Date Armen Sánchez DO [address] [facility] [place] [address] PCP - General Family Medicine 08/25/23 documented as of this encounter
--- OUTSIDE RECORDS SUMMARY | 2024-09-26 20:07 | XMS_ITS | Encounter Summary ---
Author Organization [facility] Address [address] [place] [address] Care Team Providers Care Tech Ed/Woodshop Teacher Name Role Phone Emi Bronson Arpit [facility] Unavailable + [phone] Armen Sánchez MD Primary Care Provider + [phone] Encounter Details Date Type Department Care Team (Late st Contact Info) Description 05/09/2024 Abstract [facility] OB [address] [facility] [place] [address] Curtis Paez, [address] [place], [facility] Social History Tobacco Use Types Packs/Day [...] Description 10/03/2024 8:40 AM EDT Routine [facility] OB [address] [place] [address] Curtis Paez, [address] [place] [address] documented as of this encounter Visit Diagnoses Not on filedocumented in this encounter Care Teams Tech Ed/Woodshop Teacher Relationship Specialty Start Date End Date Armen Sánchez MD [address] [place] [address] PCP - General Family Medicine 05/05/24 Emi Bronson, [facility] [address] [place] [address] Behavioral Health 04/12/24 documented as of this encounter
--- OUTSIDE RECORDS SUMMARY | 2024-09-26 20:07 | XMS_ITS | Encounter Summary ---
Author Organization [facility] tem Address [id number] [address] [place] [address] Care Team Providers Care Wire Bound Box Machine Helper Name Role Phone MasoodArmen silverman Primary Care Provider Encounter Details Date Type Department Care Team (Late st Contact Info) Description 07/19/2024 Orders Only [facility] Internal Medicine - Family Medicine [address] [place] [address] Ref Prov, [place] [address] Social History Tobacco Use Types Packs/Day Years Used Date Smoking Tobacco: Every Day Cigarettes 1 13.2 Started: 08/01/2011 Smokeless Tobacco: Never Alcohol Use Standard Drinks/Week Comments Not Currently 0 (1 standard drink = 0.6 oz pur e alcohol) [facility] Utilities Answer Date Recorded In the past 12 months has [employer], gas, oil, or water company threatened to [...] often do you attend chur ch or yazdanism services? Never 01/27/2024 Do you belong to any clubs o r organizations such as evangelical groups, unions, fraternal or athletic groups, or [...] Answer Date Recorded Total Score 0 10/27/2023 [facility] of Occupat ional Health - [...] Recorded Do you need help finding a [facility] career center and/or a training [...] Info) Description 09/29/2024 3:00 PM EDT Appointment [facility] US Imaging [address] [place] [address] Suresh Valencia MD [address], [address] [place] [address] documented as of this encounter Procedures Procedure [...] as of this encounter Care Teams Wire Bound Box Machine Helper Relationship Specialty Start Date End Date Armen Sánchez DO [address] [facility] [place] [address] PCP - General Family Medicine 08/25/23 documented as of this encounter
--- OUTSIDE RECORDS SUMMARY | 2024-09-26 20:07 | XMS_ITS | Encounter Summary ---
Author Organization [facility] Address [address] [place] [address] Care Team Providers Care Correctional Therapy Director Name Role Phone Emi Bronson Arpit [facility] Unavailable + [phone] Armen Sánchez MD Primary Care Provider + [phone] Encounter Details Date Type Department Care Team (Late st Contact Info) Description 09/21/2024 Abstract [facility] OB [address] [facility] [address] Curtis Paez, [address] Daniella [place], [id number] Social History Tobacco Use Types Packs/Day Years [...] Description 10/03/2024 8:40 AM EDT Routine [facility] OB [address] [place] [address] Curtis Paez, [address] [place] [address] documented as of this encounter Visit Diagnoses Not on filedocumented in this encounter Care Teams Correctional Therapy Director Relationship Specialty Start Date End Date Armen Sánchez MD [address] [place] [address] PCP - General Family Medicine 05/05/24 Emi Bronson, [facility] [address] [place] [address] Behavioral Health 04/12/24 documented as of this encounter
--- OUTSIDE RECORDS SUMMARY | 2024-09-26 20:07 | XMS_ITS | Encounter Summary ---
Author Organization [facility] Address [address] [place] [address] Care Team Providers Care Marker Machine Attendant Name Role Phone Jessica Bronsonmadeline Munson [facility] Unavailable + [phone] MD Primary Care Provider + [phone] Encounter Details Date Type Department Care Team (Late st Contact Info) Description 09/21/2024 Clinisync Result Encounter [facility] External Department Unsolicited Magan Paez DO [address] [place] [address] [place] [address] Social History Tobacco Use Types Packs/Day Years [...] Routine [facility] OB [address] [place] [id number] Magan Paez DO [address] [place] [address] [place] [address] (Fujg) documented as of this encounter Procedures Procedure Name Priority Date/Time Associated Diagnosis Comments US OB CERVICAL LENGTH 09/21/2024 2:40 PM EDT documented in this encounter Results * US OB CERVICAL LENGTH (09/21/2024 2:40 PM EDT) Anatomical Region Laterality Modality Other 09/21/2024 2:40 PM EDT Narrative 09/21/2024 2:43 PM EDT [address] [address] Ultrasound Report Signed Patient: MICHI SERRANO MR#: [id number] : 1995 Acct:[id number] Age/Sex: 29 / F ADM Date: 09/21/24 Loc: US Attending Dr: Magan Paez D.O. Ordering Physician: Magan Paez D.O. Date of Service: 09/21/24 Procedure(s): US OB cervical length Accession Number(s): [id number] cc: [address] Corey D.O. [address] [address] Patient Name: MICHI SERRANO MRN: [id number] date: 1995 Sex: F Assigned Patient Location: US Current Patient Location: US Accession/Order Number: [id number] Exam Date: 09/21/2024 14:39 Report Date: 09/21/2024 [...] Sosa Jr.ONorberto 09/21/2024 2:40 PM Dictation Location: [id number] Electronically authenticated by: [id number] Y Date: 09/21/2024 14:40 Dictated By: Hugo Atkins M.D. Signed By: 09/21/24 1443 DD/ 1440 TD/TT: Phosphoric Acid Supervisor: Procedure Note Radiology, Radiologist, MD - 09/21/2024 [place] [address] Ultrasound Report Signed Patient: MICHI SERRANO KMR#: [id number] : 1995Acct:[id number] Age/Sex: 29 FADM Date: 09/21/24 Loc: US Attending Dr: Magan Paez D.O. Ordering Physician: Magan Paez D.O. Date of Service: 09/21/24 Procedure(s): US OB cervical length Accession Number(s): [id number] cc: [address] ; Magan Paez D.O. [place] [address] Patient Name: MICHI SERRANO MRN: [id number] date: 1995 Sex: F Assigned Patient Location: US Current Patient Location: US Accession/Order Number: [id number] Exam Date: 09/21/2024 14:39 Report Date: 09/21/2024 [...] Sosa Jr.ONorberto 09/21/2024 2:40 PM Dictation Location: [employer] Electronically authenticated by: [id number] Y Date: 4:40 Dictated By: Hugo Atkins M.D. Signed By:09/21/24 1443 DD/ 1440 TD/TT: Phosphoric Acid Supervisor: us Magan Paez DO [facility] Final Result documented in this encounter Visit Diagnoses Not on filedocumented in this encounter Care Teams Marker Machine Attendant Relationship Specialty Start Date End Date Armen Street MD [address] [place] [address] PCP - General Family Medicine 05/05/24 Emi Bronson [facility] [address] [place] [address] Behavioral Health 04/12/24 documented as of this encounter
--- OUTSIDE RECORDS SUMMARY | 2024-09-26 20:07 | XMS_ITS | Encounter Summary ---
Author Organization [facility] Address [address] [place] [address] Care Team Providers Care Edge Inker Uppers Name Role Phone AiyanaEmi caraballo [facility] Unavailable + [phone] Armen Sánchez MD Primary Care Provider + [phone] Encounter Details Date Type Department Care Team (Late st Contact Info) Description 09/21/2024 Telephone [facility] OB [address] [place] [address] [place] [address] Antoinette Jackman LPN Social History Tobacco [...] AM EDT Routine [facility] OB [address] [facility] [place] [address] Curtis Paez, DO [address] [facility] [place] [address] documented as of this encounter Visit Diagnoses Not on filedocumented in this encounter Care Teams Edge Inker Uppers Relationship Specialty Start Date End Date Armen Sánchez MD [address] [place] [address] PCP - General Family Medicine 05/05/24 Emi Bronson, [facility] [address] [place] [address] Behavioral Health 04/12/24 documented as of this encounter
--- OUTSIDE RECORDS SUMMARY | 2024-09-26 20:07 | XMS_ITS | Encounter Summary ---
Author Organization [facility] Address [address] [place] [address] Care Team Providers Care Cytotechnologist/Cytology Supervisor Name Role Phone Emi Bronson [facility] Unavailable + [phone] Armen Sánchez MD Primary Care Provider + [phone] Encounter Details Date Type Department Care Team (Late st Contact Info) Description 09/14/2023 Abstract [facility] [address] [facility] [address] [place] [address] Nav Ames MD [address] [facility] [address] [place] [address] Social History Tobacco Use Types Packs/Day Years [...] Description 10/03/2024 8:40 AM EDT Routine [facility] OB [address] [facility] [place] [address] Curtis Paez, DO [address] [place] [address] documented as of this encounter Visit Diagnoses Not on filedocumented in this encounter Care Teams Cytotechnologist/Cytology Supervisor Relationship Specialty Start Date End Date Armen Sánchez MD [address] [place] [address] PCP - General Family Medicine 05/05/24 Emi Bronson [facility] [address] [place] [address] Behavioral Health 04/12/24 documented as of this encounter
--- OUTSIDE RECORDS SUMMARY | 2024-09-26 20:07 | XMS_ITS | Encounter Summary ---
Author Organization [facility] Address [address] [place] [address] Care Team Providers Care Epic Cadence Specialists Name Role Phone Emi Bronson Arpit [facility] Unavailable + [phone] Armen Sánchez MD Primary Care Provider + [phone] Encounter Details Date Type Department Care Team (Late st Contact Info) Description 08/10/2023 Abstract [facility] OB [address] [place] [address] Curtis Paez DO [address] [place] [address] [place] [address] Social History Tobacco Use Types Packs/Day Years [...] Routine [facility] OB [address] [place] [address] Curtis Paez DO [address] [place] [address] [place] [address] documented as of this encounter Visit Diagnoses Not on filedocumented in this encounter Care Teams Epic Cadence Specialists Relationship Specialty Start Date End Date Armen Sánchez MD [address] [place] [address] PCP - General Family Medicine 05/05/24 Emi Bronson [facility] [address] [place] [address] Behavioral Health 04/12/24 documented as of this encounter
--- OUTSIDE RECORDS SUMMARY | 2024-09-26 20:07 | XMS_ITS | Encounter Summary ---
Author Organization [employer] Address [id number] [address] [place] [address] Care Team Providers Care Electronics Hardware Design Engineer Name Role Phone Armen Sánchez Primary Care Provider Encounter Details Date Type Department Care Team (Late st Contact Info) Description 08/17/2023 Orders Only [facility] Obstetrics/Gynecology [address] [place] [phone] La Murray CMA Screening for STD (sexually [...] Info) Description 09/29/2024 3:00 PM EDT Appointment [facility] [address] [place] [phone] Suresh Valencia MD [address] [place] [address] documented as of this encounter Procedures Procedure [...] documented as of this encounter Care Teams Electronics Hardware Design Engineer Relationship Specialty Start Date End Date Armen Sánchez DO [address] [facility] [address] PCP - General Family Medicine 08/25/23 documented as of this encounter
--- OUTSIDE RECORDS SUMMARY | 2024-09-26 20:07 | XMS_ITS | Clinical Summary ---
Author Organization [facility] Address [address] [place] [address] Care Team Providers Care Red Leader Name Role Phone AiyanaEmi [facility] Unavailable [phone] Armen Sánchez MD Primary Care Provider [phone]- [phone] Allergies Active Allergy Reactions Criticality Noted Date [...] Diagnosed Date Placental abnormality in third trimester ([facility]) 09/21/2024 History of loop electrosurgi ledy excision procedure (LEEP) of cervix affecting , [facility] 09/21/2024 Cystic fibrosis carrier, antepartum ([facility] Moderate episode of recurrent major depressive d isorder 10/25/2023 ALICIA (generalized anxiety disorder) 10/25/2023 Estimated Date of Delivery Comme nts Yes 12/12/2024 Based on last me nstrual period of 03/07/2024 Encounters Date Type Department Care Team Description 09/25/2024 Clinisync Result Encounter [facility] External Department Unsolicited Magan Paez, DO 09/21/2024 Abstract [facility] [address] [place] [address] Magan Paez, DO 09/21/2024 Abstract [facility] [address] [place] [address] Magan Paez, DO 09/21/2024 Clinisync Result Encounter [facility] External Department Unsolicited Magan Paez, DO 09/21/2024 Clinisync Result Encounter [facility] External Department Unsolicited Magan Paez, DO 09/21/2024 Orders Only [facility] [address] [place] [address] Magan Paez DO Placental abnormality in third trimester ([facility]); Cystic fibrosis carrier, antepartum ([facility]); History of loop electrosurgical excision procedure (LEEP) of cervix affecting , antepartum ([facility]) 09/21/2024 [address]phone [facility] [address] [place] [address] Antoinette Jackman, VENTILATING ENGINEER 09/19/20[address] [facility] [address] [place] [address] Laura Godwin, VENTILATING ENGINEER 09/18/2024 3:40 PM EDT Routine [facility] [address] [place] [address] Magan Paez DO Anxiety, generalized (Primary Dx); Second trimester ([facility]); 27 weeks gestation of ([facility]); Cystic fibrosis carrier, antepartum ([facility]) 09/18/2024 Bamboo flowsheet [facility] [address] [place] [address] Magan Paez, 09/18/2024 Travel 08/30/2024 9:50 AM EDT Routine [facility] [address] [place] [address] Jocy Ruby PA Second trimester ([facility]); 25 weeks gestation of ([facility]) 08/30/2024 Clinisync Result Encounter [facility] External Department Unsolicited Magan Paez, 08/30/2024 Bamboo flowsheet [facility] [address] [place] [address] Jocy Ruby PA 08/14/2024 10:30 AM EDT Procedure Visit [facility] [address] [place] [address] Magan Paez, Cystic fibrosis carrier, antepartum ([facility]); LGSIL on Pap smear of cervix 08/14/2024 Travel 08/01/2024 1:20 PM EDT Routine [facility] [address] [place] [address] Magan Paez DO Chlamydia trachomatis infection; 21 weeks gestation of ([facility]); Second trimester ([facility]); Diabetes mellitus screening 08/01/2024 Bamboo flowsheet [facility] [address] [place] [address] Magan Paez DO 08/01/2024 Travel 07/11/2024 12:00 PM EDT Clinical Support [facility] [address] [place] [address] Emi Bronson, [facility] Moderate episode of recurrent major depressive disorder (HCC); ALICIA (generalized anxiety disorder) 07/11/2024 Orders Only [facility] [address] [place] [address] Mary Quinn LPN 07/11/2024 Bamboo flowsheet [facility] [address] [place] [address] Emi Bronson, [facility] 07/11/2024 Travel 07/10/2024 Telephone [facility] [address] [place] [address] Warren Nely, MA 07/06/2024 8:30 AM EDT Routine [facility] [address] [place] [address] Jocy Ruby PA 17 weeks gestation of ([facility]); Second trimester ([facility]); Well woman exam with routine gynecological exam; Exposure to STD; Vaginal discharge 07/06/2024 Clinisync Result Encounter [facility] External Department Unsolicited Jocy Ruby PA 07/06/2024 External Result Encounter [facility] External Department Unsolicited Jocy Ruby PA 07/06/2024 Bamboo flowsheet [facility] [address] [place] [address] Jocy Ruby PA 07/05/2024 Travel 07/05/2024 [...] AM EDT Routine [facility] [address] [place] [address] JeannineMagan vicente, DO [address] [place] [address] Procedures Procedure Name Priority Date/Time Associated Diagnosis Comments US OB BPP W NON-STRESS 09/25/2024 8:08 AM EDT US OB PLACENTA 09/21/2024 2:53 PM EDT US OB CERVICAL LENGTH 09/21/2024 2:40 PM EDT GLUCOSE 1 HOUR Routine 08/30/2024 11:28 AM EDT ALL CBC WITH AUTO DIFF Routine 08/30/2024 11:28 AM EDT POCT URINALYSIS DIPSTICK Routine 08/30/2024 11:24 AM EDT Second trimester ([facility]) COLPOSCOPY Routine 08/14/2024 2:19 PM EDT LGSIL on Pap smear of cervix RECURRENT VAGINITIS (HTRX) Routine 08/01/2024 2:52 PM EDT US OB 14+ WEEKS ANATOMY SCAN 07/28/2024 1:13 PM EDT RECURRENT VAGINITIS (HTRX) Routine 07/06/2024 12:13 PM EDT AFP, SERUM, OPEN SPINA BIFIDA Routine 07/06/2024 10:06 AM EDT POCT URINALYSIS DIPSTICK Routine 07/06/2024 9:19 AM EDT 17 weeks gestation of ([facility]) Second trimester ([facility]) IGP,APTIMA HPV,AGE GDLN Routine 07/06/2024 8:54 AM EDT PAP SMEAR Routine 07/06/2024 12:00 AM EDT US OB CERVICAL LENGTH 07/05/2024 8:10 AM EDT from Last 3 Months Results * US OB BPP W NON-STRESS (09/25/2024 8:08 AM EDT) Anatomical Region Laterality Modality Other 09/25/2024 8:08 AM EDT Narrative 09/25/2024 8:10 [place] [address] Ultrasound Report Signed Patient: MICHI SERRANO MR#: [id number] : 1995 Acct:[id number] Age/Sex: 29 / F ADM Date: Loc: [facility] 251-[address]: Magan Paez D.O. Ordering Physician: Magan Paez D.O. Date of Service: 09/24/24 Procedure(s): US OB BPP w non-stress Accession Number(s): [id number] cc: ARMEN SÁNCHEZ Corey D.O. The [place] [address] Patient Name: MICHI SERRANO MRN: [facility]:[id number] date: 1995 Sex: F Assigned Patient Location: [facility] Current Patient Location: [facility] Accession/Order Number: [id number] Exam Date: 09/25/2024 08:05 Report Date: 09/25/2024 08:08 At the request of: MAGAN PAEZ DO Procedure: US OB BPP w non-stress CLINICAL DATA: History of bleeding. Possible abruption. BIOPHYSICAL PROFILE: COMPARISON: None There is a single live intrauterine gestation in cephalic presentation. The reported gestational age is 28 weeks 5 days. The heart rate [id number] beats per minute. FINDINGS: TONE: 1 or [...] Rahman M.D. 09/25/2024 8:08 AM Dictation Location: [place] [address] Electronically authenticated by: [id number] Y Date: 09/25/2024 08:08 Dictated By: Laura Rahman M.D. Signed By: 09/25/2410 DD/ 7 TD/TT: Clay Carman: Procedure Note Radiology, Radiologist, MD - 09/25/2024 [place] [address] Ultrasound Report Signed Patient: MICHI SERRANO KMR#: [id number] : 1995Acct:[id number] Age/Sex: 29 FADM Date: Loc: [facility] 251-[address]: Magan Paez D.O. Ordering Physician: Magan Paez D.O. Date of Service: 09/24/24 Procedure(s): US OB BPP w non-stress Accession Number(s): [id number] cc: ARMEN SÁNCHEZ Corey D.O. The [place] [id number] Patient Name: MICHI SERRANO MRN: [id number] date: 1995 Sex: F Assigned Patient Location: [facility] Current Patient Location: [facility] Accession/Order Number: [id number] Exam Date: 09/25/2024 08:05 Report Date: 09/25/2024 08:08 At the request of: MAGAN PAEZ DO Procedure: US OB BPP w non-stress CLINICAL DATA: History of bleeding. Possible abruption. BIOPHYSICAL PROFILE: COMPARISON: None There is a single live intrauterine gestation in cephalic presentation.The reported gestational age is 28 weeks 5 days. The heart [id number] beats per minute. FINDINGS: TONE: 1 or [...] Rahman M.D. 09/25/2024 8:08 AM Dictation Location: [place] [address] Electronically authenticated by: [id number] Y Date: 508:08 Dictated By: Laura Rahman M.D. Signed By:09/25/24 0810 DD/ 0808 TD/TT: Clay Carman: us Magan Paez DO [facility] IMAGING Final Result * US OB PLACENTA (09/21/2024 2:53 PM EDT) Anatomical Region Laterality Modality Other 09/21/2024 2:53 PM EDT Narrative 09/21/2024 2:56 [place] [address] Ultrasound Report Signed Patient: MICHI SERRANO MR#: [id number] : 1995 Acct:[id number] Age/Sex: 29 / F ADM Date: 09/21/24 Loc: US Attending Dr: Magan Paez D.O. Ordering Physician: Magan Paez D.O. Date of Service: 09/21/24 Procedure(s): US OB placenta Accession Number(s): [id number] cc: ARMEN SÁNCHEZ ; Magan Paez D.O. The [place] [id number] Patient Name: MICHI SERRANO MRN: [id number] date: 1995 Sex: F Assigned Patient Location: US Current Patient Location: US Accession/Order Number: [id number] Exam Date: 09/21/2024 14:41 Report Date: 09/21/2024 [...] Jr., D.O. 09/21/2024 2:53 PM Dictation Location: [place] [address] Electronically authenticated by: [id number] Y Date: 09/21/2024 14:53 Dictated By: Hugo Atkins M.D. Signed By: 09/21/24 1456 DD/ 1453 TD/TT: Clay Carman: Procedure Note Radiology, Radiologist, - 09/21/[address] [address] Ultrasound Report Signed Patient: MICHI SERRANO KMR#: [id number] : 1995Acct:[id number] Age/Sex: 29 / FADM Date: 09/21/24 Loc: US Attending Dr: Magan Paez D.O. Ordering Physician: Magan Paez D.O. Date of Service: 09/21/24 Procedure(s): US OB placenta Accession Number(s): [id number] cc: ARMEN SÁNCHEZ ; Magan Paez D.O. [place] [address] Patient Name: MICHI SERRANO MRN: [id number] date: 1995 Sex: F Assigned Patient Location: US Current Patient Location: US Accession/Order Number: [id number] Exam Date: 09/21/2024 14:41 Report Date: 09/21/2024 [...] Jr., D.O. 09/21/2024 2:53 PM Dictation Location: [place] [address] Electronically authenticated by: [id number] Y Date: 4:53 Dictated By: Hugo Atkins M.D. Signed By:09/21/24 1456 DD/ 1453 TD/TT: Clay Carman: us Magan Paez DO [facility] IMAGING Final Result * US OB CERVICAL LENGTH (09/21/2024 2:40 PM EDT) Only the most recent of2 resultswithin the time period is included. Anatomical Region Laterality Modality Other 09/21/2024 2:40 PM EDT Narrative 09/21/2024 2:43 [place] [address] Ultrasound Report Signed Patient: MICHI SERRANO MR#: [id number] : 1995 Acct:[id number] Age/Sex: 29 / F ADM Date: 09/21/24 Loc: US Attending Dr: Magan Paez D.O. Ordering Physician: Magan Paez D.O. Date of Service: 09/21/24 Procedure(s): US OB cervical length Accession Number(s): [id number] cc: ARMEN SÁNCHEZ ; Magan Paez D.O. [place] [address] Patient Name: MICHI SERRANO MRN: [id number] date: 1995 Sex: F Assigned Patient Location: US Current Patient Location: US Accession/Order Number: [id number] Exam Date: 09/21/2024 14:39 Report Date: 09/21/2024 [...] Jr., D.O. 09/21/2024 2:40 PM Dictation Location: [place] [address] Electronically authenticated by: [id number] Y Date: 09/21/2024 14:40 Dictated By: Hugo Atkins M.D. Signed By: 09/21/24 1443 DD/ 1440 TD/TT: Clay Carman: Procedure Note Radiology, Radiologist, MD - 09/21/2024 [place] [address] Ultrasound Report Signed Patient: MICHI SERRANO KMR#: [id number] : 1995Acct:[id number] Age/Sex: 29 / FADM Date: 09/21/24 Loc: US Attending Dr: Magan Paez D.O. Ordering Physician: Magan Paez D.O. Date of Service: 09/21/24 Procedure(s): US OB cervical length Accession Number(s): [id number] cc: ARMEN SÁNCHEZ ; Magan Paez D.O. The [place] [address] Patient Name: MICHI SERRANO MRN: [id number] date: 1995 Sex: F Assigned Patient Location: US Current Patient Location: US Accession/Order Number: [id number] Exam Date: 09/21/2024 14:39 Report Date: 09/21/2024 [...] Jr., D.O. 09/21/2024 2:40 PM Dictation Location: [place] [address] Electronically authenticated by: [id number] Y Date: 4:40 Dictated By: Hugo Atkins M.D. Signed By:09/21/24 1443 DD/ 1440 TD/TT: Clay Carman: us Magan Paez DO [facility] IMAGING Final Result * GLUCOSE 1 HOUR (08/30/2024 11:28 AM EDT) GLUCOSE 1 HOUR 66 <130 mg/dL [facility] 08/30/2024 11:2 8 AM EDT 08/30/2024 11:29 AM EDT Narrative ALFIE - 08/30/2024 12:05 PM EDT us Magan Jeannine DO LAB BLOOD ORDERABLES Final Resul t [facility] * (ABNORMAL) ALL CBC WITH AUTO [...] us Magan Paez DO CLINIS[facility] Final Result [facility] * (ABNORMAL) POCT urinalysis dipstick manually resulted [...] resultswithin the time period is included. Pathologist [facility] ATOPOBIUM VAGINAE 0.000 19.961 - 24.689 ppm 08/02/2024 7:05 AM EDT [facility] ATOPOBIUM VAGINAE Not Detected 19.961 - 24.689 ppm 08/02/2024 7:05 AM EDT [facility] BV[facility] 2,3 (BACTERIAL VAGINOSIS ASSOCIATED BACTERIA 2, 3); MOBILUNCUS SPP 0.000 19.961 - 24.689 ppm 08/02/2024 7:05 AM EDT [facility] BVAB 2,3 (BACTERIAL VAGINOSIS ASSOCIATED BACTERIA 2, 3); MOBILUNCUS SPP Not Detected 19.961 - 24.689 ppm 08/02/2024 7:05 AM EDT [facility] ILIANA ALBICANS, PARAPSILOSIS, TROPICALIS 0.000 19.961 - 30.770 ppm 08/02/2024 7:05 AM EDT [facility] ILIANA ALBICANS, PARAPSILOSIS, TROPICALIS Not Detected 19.961 - 30.770 ppm 08/02/2024 7:05 AM EDT [facility] ILIANA GLABRATA 0.000 23.000 - 32.138 ppm 08/02/2024 7:05 AM EDT [facility] ILIANA GLABRATA Not Detected 23.000 - 32.138 ppm 08/02/2024 7:05 AM EDT [facility] ILIANA KRUSEI 0.000 23.000 - 32.271 ppm 08/02/2024 7:05 AM EDT [facility] ILIANA KRUSEI Not Detected 23.000 - 32.271 ppm 08/02/2024 7:05 AM EDT [facility] CHLAMYDIA TRACHOMATIS 0.000 23.000 - 31.467 ppm 08/02/2024 7:05 AM EDT [facility] CHLAMYDIA TRACHOMATIS Not Detected 23.000 - 31.467 ppm 08/02/2024 7:05 AM EDT [facility] GARDNERELLA VAGINALIS 0.000 19.961 - 24.689 ppm 08/02/2024 7:05 AM EDT [facility] GARDNERELLA VAGINALIS Not Detected 19.961 - 24.689 ppm 08/02/2024 7:05 AM EDT [facility] MEGASPHAERA (TYPES 1, 2) 0.000 19.961 - 24.689 ppm 08/02/2024 7:05 AM EDT [facility] MEGASPHAERA (TYPES 1, 2) Not Detected 19.961 - 24.689 ppm 08/02/2024 7:05 AM EDT [facility] NEISSERIA GONORRHOEAE 0.000 23.000 - 32.117 ppm 08/02/2024 7:05 AM EDT [facility] NEISSERIA GONORRHOEAE Not Detected 23.000 - 32.117 ppm 08/02/2024 7:05 AM EDT [facility] TRICHOMONAS VAGINALIS 0.000 23.000 - 32.119 ppm 08/02/2024 7:05 AM EDT [facility] TRICHOMONAS VAGINALIS Not Detected 23.000 - 32.119 ppm 08/02/2024 7:05 AM EDT [facility] MYCOPLASMA GENITALIUM 0.000 19.961 - 24.689 ppm 08/02/2024 7:05 AM EDT [facility] MYCOPLASMA GENITALIUM Not Detected 19.961 - 24.689 ppm 08/02/2024 7:05 AM EDT [facility] Tissue 08/01/2024 2:52 PM EDT 08/02/2024 2:14 AM EDT us Magan Paez DO LAB BLOOD ORDERABLES Final Resul t [facility] [address] [place] [address] * US OB 14+ weeks anatomy scan (07/28/2024 1:13 PM EDT) Anatomical Region Laterality Modality Body Ultrasound 07/28/2024 1:13 PM EDT Narrative 07/28/2024 1:13 PM EDT THIS EXAM WAS PERFORMED AT [facility] NAME: JEREMY BORDEN : 1995 SEX: F Accession Number: [id number] ORDERING PHYSICIAN: CHRISSIE SNOW REFERRING PHYSICIAN: MAGAN PAEZ Coding ----- --------- Procedures 77143: Ultrasound, uterus, real time with image documentation, and maternal evaluation plus detailed anatomic examination, transabdominal approach;single or first gestation 50324: Transvaginal Ultrasound (OB) 79982: Amniocentesis; diagnostic Indication ----- --------- Screening for Anatomic Survey, Screening for cervical length, Abnormal finding on screening of mother-MOB + FOB CF carriers, Depression, Anxiety History ----- --------- OB History 1. Para 0 [id number] Current ----- --------- Cell free DNA low [...] EFW (oz) 14 oz EFW by: Hadlock ([id number]) Extended Tibia 28.6 mm 20w 3d 55% Dank Test Lead 6.6 mm CM 5.3 mm 57% Nicolaides [...] view. RVOT view. LVOT view. 3-vessel view. 7-wiciza-pxxkkzp view. Situs. Bicaval view. Ductal arch view. [...] ----- --------- Performing Physicain: Suresh Valencia MD, .Health Care Social Worker: Damaris Johnson RDMS Invasive Procedures ----- --------- [...] rates noted. Recommendations ----- --------- Please see [facility] documentation from today. The patient is scheduled in four week(s) to complete anatomic survey. Subsequent follow up or other follow up as clinically determined by primary OB provider unless otherwise specified by [facility]. Results forwarded to ordering provider so they can follow up with the patient as necessary. The copy-to physician of this order is MAGAN Aguirre The ordering physician of this order is CHRISSIE Velázquez Procedure Note Radiology, Radiologist, MD - 07/28/2024 THIS EXAM WAS PERFORMED AT [facility] NAME: JEREMY BORDEN : 1995 SEX: F Accession Number: [id number] ORDERING PHYSICIAN: CHRISSIE SNOW REFERRING PHYSICIAN: MAGAN PAEZ Coding ----- --------- Procedures 97762: Ultrasound, uterus, real time with imagedocumentation, and maternal evaluation plus detailed anatomic examination, transabdominalapproach;single or first gestation 67017: Transvaginal Ultrasound (OB) 26991: Amniocentesis; diagnostic Indication ----- --------- Screening for Anatomic Survey, Screening for cervical length, Abnormalfinding on screening of mother-MOB + FOB CF carriers, Depression, Anxiety History ----- --------- OB History 1. Para 0 [id number] Current ----- --------- Cell free DNA low [...] EFW (oz) 14 oz EFW by: Hadlock ([id number]) Extended Tibia 28.6 mm 20w 3d 55% Dank Test Lead 6.6 mm CM 5.3 mm 57% Nicolaides [...] 4-chamber view. RVOT view. LVOT view. 3-vessel view.1-oqmztz-vmmqmnq view. Situs. Bicaval view. Ductal arch view. [...] ----- --------- Performing Physicain: Suresh Valencia MD, .Health Care Social Worker: Damaris Johnson RDMS Invasive Procedures ----- --------- [...] rates noted. Recommendations ----- --------- Please see [facility] documentation from today. The patient is scheduled in four week(s) to complete anatomic survey. Subsequent follow up or other follow up as clinically determined byprimary OB provider unless otherwise specified by [facility]. Results forwarded to ordering provider so they can follow up with thepatient as necessary. The copy-to physician of this order is MAGAN Aguirre The ordering physician of this order is CHRISSIE Velázquez us Magan Jeannine DO IMG OB US PROCEDURES Final Resul t * AFP, SERUM, OPEN SPINA BIFIDA (07/06/2024 10:06 AM EDT) [facility] RESULTS Report . [facility] TEST RESULTS: *Screen Negative* . [facility] GEST. AGE ON COLLECTION DATE 17.1 . weeks [facility] GESTAT. AGE BASED ON LMP . [facility] Comment: Recalculations are not recommended when gestational dating by LMP and ultrasound are within 10 days. MATERNAL [age] [facility] RACE . [facility] WEIGHT 186 . lbs [facility] INSULIN DEP DIABETES No . [facility] MULTIPLE GESTATION No . [facility] AFP VALUE 28.4 . ng/mL [facility] AFP MOM 0.85 . [facility] [place] [address] [place] [address] . [facility] INTERPRETATION Comment . [facility] Comment: Interpretation: Screen Negative This result is [...] Customer Services to discuss available options. The [employer] recommends amniocentesis be offered to women age 35 and older. COMMENT: Comment . [facility] Comment: Joan Shetty, Ph.D., [facility] Director References: Available Upon Request. Multiples Of Median Cutoffs For AFP Elevations [place] 2.5 Black 2.8 IDD 2.0 Twins 4.5 Abbreviation Definitions IDD - Insulin Dep Diabetes OSBR - Open Spina Bifida Risk For further inquiries contact [facility] at [phone]. This test was developed and its performance characteristics determined by [facility]. It has not been cleared or approved by the Food and Drug Administration. Performed at: [facility] [employer] [address] [place], [place] [id number] [employer] Assembly Supervisor: Sonja Esposito [facility], Phone: [phone] 07/06/2024 10:0 6 AM EDT 07/06/2024 10:07 AM EDT Narrative CLINISYNC - 07/08/2024 2:07 AM EDT N N LMP [id number] 1 17 N 1 Y 186 N N N N N White/ us Jocy YOUNG LAB BLOOD ORDERABLES Final Resul t [facility] * (ABNORMAL) IGP,APTIMA HPV,AGE GDLN (07/06/2024 8:54 AM EDT) AGE GDLN ACOG TESTING Note . [facility] Comment: TESTS RESULT FLAG UNITS REF RANGE LAB Clinician Provided Cytology Information Source.............Cervix Other.............. No. of containers..01 ThinPrep Vial Age Algo ACOG Charley... 30-65 01 FLAG LEGEND: L-Low Normal,H-High Normal,LL-Alert Low,HH-Alert High <-Panic Low,>-Panic High,A-Abnormal,AA-Critical Abnormal Performed at: 01 =G [facility] [address] [address] Patricia Houser MD, IGP, APTIMA HPV, RFX 16/18,45 Note(A) . [facility] Comment: TESTS RESULT FLAG UNITS REF RANGE LAB DIAGNOSIS: [A] 02 EPITHELIAL CELL ABNORMALITY. LOW GRADE SQUAMOUS INTRAEPITHELIAL LESION (LSIL). Specimen adequacy: 02 Satisfactory for evaluation. Endocervical and/or squamous metaplastic cells (endocervical component) are present. Performed by: 03 Kelly Grant Elevator Starter (ASCP) Electronically si... Opal Ford MD, Pathologist [...] High,A-Abnormal,AA-Critical Abnormal Performed at: 02 WB [facility] [address] [place] [address] Patricia Houser MD, 03 KWCYT [facility] [address] [address] [place] [address] Don Hawthorne MD, HPV APTIMA Negative Negative [facility] Comment: This nucleic acid amplification test detects fourteen high- risk HPV types (16,18,31,33,35,39,45,51,52,56,58,59,66,68) without differentiation. Performed at: = - [facility] [address] StreetBrendon cardosoNew [place], [place] [id number] Autom[employer] Assembly Supervisor: Patricia Houser MD, Phone: [phone] Performed at: - [facility] [place], [place] [id number] [employer] Supervisor: Patricia Houser MD, Phone: [phone] 07/06/2024 8:54 AM EDT 07/06/2024 12:15 PM EDT Narrative CLINISYNC - 07/11/2024 4:09 PM EDT SPATULA-ALONE CERVIX Jocy YOUNG LAB BLOOD ORDERABLES Final Resul t [facility] * Pap Smear (07/06/2024 12:00 AM EDT) Swab Cervical swab / Unknown Jeannine Mcfarland [facility] LAB CYTOLOGY ORDERABLES Final Result EXTERNAL LAB from Last 3 Months Insurance * Guarantor: Michi Serrano Account Type Relation to Patient Date of Phone Billing Address Personal/Family Self 1995 [address] [place] [address] [facility] Care Teams Red Leader Relationship Specialty Start Date End Date Armen Sánchez MD [address] [place] [address] PCP - General Family Medicine 05/05/24 Emi Bronson [facility] [address] [place] [place] [address] Behavioral Health 04/12/24
--- OUTSIDE RECORDS SUMMARY | 2024-09-26 20:07 | XMS_ITS | Clinical Summary ---
Demographics Address [address] [place] [address] Home Phone Work Phone Mobile Phone Email Address Preferred Language Bengali Marital Status Single Sabianist Affiliation Unknown Race White Ethnic Group Not or Lati no Author Organization [facility] Address [address] [place] [address] Care Team Providers Care Aircraft Layout Worker Name Role Phone Armen Sánchez Primary Care Provider [phone] Allergies Active Allergy Reactions Criticality Noted Date [...] today Need for prophylactic vaccin ation against tsulrdjxop-nrwgnmn-ydedijldx (DTP) 08/16/2018 Assessment & Plan (08/16/2018 4:03 [...] Hospital Encounter [facility] Delivery [address] [place] [address] Victorino Christie, Discharge Disposition: Home or Self [...] Self 1995 [address] [place] [address] [employer] Care Teams Aircraft Layout Worker Relationship Specialty Start Date End Date Armen Sánchez DO [address] [place] [address] PCP - General Family Medicine 04/27/24
--- OUTSIDE RECORDS SUMMARY | 2024-09-26 20:07 | XMS_ITS | Clinical Summary ---
Author Organization [employer] tem Address [facility]-[id number] [address] [place] [address] Care Team Providers Care Circular Gang Saw Operator Name Role Phone Armen Sánchez Primary [...] Consult: []Palliative Care Consult: []SGM: []Life Connection: [][place]: [] MRI: []Nationwide: []UofM: []UH: [x][facility]: If Peds are NOT ok taking care of CF baby Delivery Recommendation: [x] Term at local hospital, if Peds are ok taking care of CF baby [] Term at [facility] Surveillance Plan: [x] F/U Survey sched 08/25/24 at [facility] [] Growth q __ weeks [] [...] Description 09/25/2024 Orders Only Maternal- Medicine at [facility] [address] [place] [phone] Ref Prov, Not In System 09/15/2024 Telephone Maternal- Medicine at [facility] [address] [place] [address] Miriam Joseph RN 09/07/2024 10:30 AM EDT Office Visit [facility] [address] [facility] [address] [place] [phone] Rashida Silva MD 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); Encounter for consultation 09/07/2024 Orders Only Maternal- Medicine at [facility] [address] [place] [address] Miriam Joseph RN 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); Abnormal genetic test during 09/05/2024 Travel 08/25/2024 Travel 08/18/2024 Orders Only Maternal- Medicine at [facility] [address] [place] [address] Barbra Samuel RN 08/18/2024 Orders Only Maternal- Medicine at [facility] [address] [place] [address] Barbra Samuel RN 08/17/2024 Telephone Maternal- Medicine at [facility] [address] [place] [address] Rachel Rodriguez, LGC 07/28/2024 1:48 PM EDT - 07/28/2024 11:59 PM EDT Hospital Encounter [facility] [address] [address] Discharge Disposition: Home 07/28/2024 10:00 AM EDT Office Visit Maternal- Medicine at [facility] [address] [place] [address] Suresh Burns MD 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) 07/28/2024 8:42 AM EDT - 07/28/2024 1:47 PM EDT Hospital Encounter [facility] US Imaging [address] [place] [address] Abnormal genetic test during ; Screening, , for anatomic survey Discharge Disposition: Home 07/28/2024 Orders Only Maternal- Medicine at [facility] [address] [place] [address] Miriam Joseph, RN 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); Abnormal genetic test during 07/28/2024 Travel 07/19/2024 Orders Only [facility] Internal Medicine - Family Medicine [address] [place] [address] Ref Prov, Not In System 07/12/2024 Telephone Maternal- Medicine at [facility] [address] [place] [address] Rachel Rodriguez LGC from Last [...] drink = 0.6 oz pur e alcohol) [facility] [employer] Answer Date Recorded In the past 12 [...] often do you attend chur ch or druze services? Never 01/27/2024 Do you belong to any clubs o r organizations such as sabianist groups, unions, fraternal or athletic groups, or [...] Date Recorded Total Score 0 10/27/2023 [facility] Occupational Stress Questionnaire Answer Date [...] Recorded Do you need help finding a [facility] and/or a training program? [...] Info) Description 09/29/2024 3:00 PM EDT Appointment [facility] US Imaging [address] [place] [address] Suresh Burns MD [address] [place] [address] Health Maintenance Due Date Last Done Comments [...] 8:28 AM EDT) Anatomical Region Laterality Modality OB-WOOD TURNING LATHE OPERATOR Ultrasound us Not In System Ref Prov IMG US ORDERABLES Final R esult * US MFM OB FOLLOW-UP, 1 FETUS (08/25/2024 10:25 AM EDT) Only the most recent of2 resultswithin the time period is included. Anatomical Region Laterality Modality OB-WOOD TURNING LATHE OPERATOR Ultrasound 08/25/2024 9:38 AM EDT Narrative 08/25/2024 5:15 PM EDT NAME: JEREMY BORDEN : 1995 SEX: F Accession Number: [id number] ORDERING PHYSICIAN: SURESH BURNS REFERRING PHYSICIAN: MAGAN TRISTAN Coding ----- --------- Procedures [id number]: Follow-up Ultrasound, per fetus Indication ----- --------- Abnormal finding on screening of mother-MOB + FOB CF carriers, Depression, Anxiety , Screening for follow-up survey History ----- --------- OB History 1. Para 0 [id number] Current ----- --------- Cell free DNA low [...] EFW (oz) 11 oz EFW by: Hadlock ([id number]) Extended Tibia 36.6 mm 23w 5d 27% Dank Wax Pot Tender 3.8 mm CM 6.3 mm 59% Nicolaides [...] Thorax RVOT view. LVOT view. 3-vessel view. 4-fnzzsq-cwlpvbe view. Bicaval view. Ductal arch view. Interventricular [...] BORDEN : 1995 SEX: F Accession Number: [id number] ORDERING PHYSICIAN: SURESH BURNS REFERRING PHYSICIAN: MAGAN TRISTAN Coding ----- --------- Procedures [id number]: Follow-up Ultrasound, per fetus Indication ----- --------- Abnormal finding on screening of mother-MOB + FOB CF carriers,Depression, Anxiety , Screening for follow-up survey History ----- --------- OB History 1. Para 0 [id number] Current ----- --------- Cell free DNA low [...] EFW (oz) 11 oz EFW by: Hadlock ([id number]) Extended Tibia 36.6 mm 23w 5d 27% Dank Wax Pot Tender 3.8 mm CM 6.3 mm 59% Nicolaides [...] Thorax RVOT view. LVOT view. 3-vessel view. 6-ycobgr-xqcljni view.Bicaval view. Ductal arch view. Interventricular septum. [...] with thepatient as necessary. Suresh Burns MD [employer] [facility] [employer] US ORDERABLES Final Resul t * Send Out Test (07/28/2024 11:05 AM EDT) Only the most recent of2 resultswithin the time period is included. Test name: KNOWN MUTATION ANALYSIS CFTR GENE 07/28/2024 1:55 PM EDT [facility] Specimen 3 MATERNAL AMNIOTIC FLUID 2 EDTA AND 1 SODIUM HEP MATERNAL 07/28/2024 1:55 PM EDT [facility] Sent to [facility]IA [employer] [id number] 07/28/2024 2:18 PM EDT [facility] Comment:Corrected on 07/28 A T 1418: Previously reported as [facility] [employer] [id number] Test result See separate report. View in [employer] or in [email or web address]. 08/23/2024 7:01 PM EDT [facility] MISCELLANEOUS 07/28/2024 11: 05 AM EDT 07/28/2024 1:53 PM EDT Suresh Burns MD LAB ORDERABLES Edited Result - Final Performing Organization Address City/[facility]/ZIP Co de Phone Number DELFINO * Ultrasound pelvic with transvaginal (07/05/2024 8:08 AM EDT) Anatomical Region Laterality Modality Body, Pelvis Ultrasound us Not In System Ref Prov IMG US ORDERABLES Final R esult * High risk HPV w/faustina (08/10/2023 4:17 AM EDT) Hpv specimen type ThinPrep 08/11/2023 4:17 AM EDT [facility] Hpv 16 Negative Negative^N egative 08/11/2023 2:37 PM EDT [facility] Hpv 18 Negative Negative^N egative 08/11/2023 2:37 PM EDT [facility] Other high risk hpv Negative Negative^N egative 08/11/2023 2:37 PM EDT [facility] Comment: HPV types 31,33,35,39,45,52,56,58,59,66 and 68 DNA were undetectable. THINP 08/10/2023 4:17 AM EDT 08/10/2023 4:48 AM EDT us Claire Robertson MD LAB BLOOD ORDERABLES Final Res ult Performing Organization Address [facility]/ZIP Co de Phone Number DELFINO [facility] [address] [facility] [place] [address] [facility] [address] [place] [address] from Last 3 Months or Most Recently Relevant to Health Maintenance Insurance * Guarantor: Sapna Serrano Account Type Relation to Patient Date of Phone Billing Address Personal/Family Self 1995 [address] [place] [address] [employer] Care Teams Circular Gang Saw Operator Relationship Specialty Start Date End Date Armen Sánchez DO [address], [facility] [place] [address] PCP - General Family Medicine 08/25/23
--- OUTSIDE RECORDS SUMMARY | 2024-09-26 20:07 | XMS_ITS | Encounter Summary ---
Author Organization [facility] tem Address [facility][id number] [address] [place] [address] Care Team Providers Care Treating Machine Operator Name Role Phone Princess Armen Steele DO Primary Care Provider Encounter Details Date Type Department Care Team (Late st Contact Info) Description 06/16/2024 Orders Only Maternal- Medicine at [facility] [address] [place] [phone] Curtis Paez, DO [address] [place] [address] Social History Tobacco Use Types Packs/Day Years Used Date Smoking Tobacco: Every Day Cigarettes 1 13.2 Started: 08/01/2011 Smokeless Tobacco: Never Alcohol Use Standard Drinks/Week Comments Not Currently 0 (1 standard drink = 0.6 oz pur e alcohol) [facility] Utilities Answer Date Recorded In the past 12 months has [employer], gas, oil, or water [employer] threatened to shut off services in your home? No 08/25/2023 Social Connection and Isolation Panel [NHANES] A nswer Date Recorded In a typical week, how many times do you talk on the phone with family, friends, or neighbors? Three times a week 01/27/2024 How often do you get togethe r with friends or relatives? Once a week 01/27/2024 How often do you attend [facility] or mandaen services? Never 01/27/2024 Do you belong to any clubs o r organizations such as gnosticist groups, unions, fraternal or athletic groups, or [...] Answer Date Recorded Total Score 0 10/27/2023 [facility] of Occupat ional Health - [...] Info) Description 09/29/2024 3:00 PM EDT Appointment [facility] US Imaging [address] [place] [address] Suresh Valencia MD [address], [address] [place] [address] documented as of this encounter Procedures Procedure Name Priority Date/Time Associated Diagnosis Comments UNLISTED LAB TEST Routine 06/08/2024 1:25 PM EST UNLISTED LAB TEST Routine 05/23/2024 1:26 PM EST documented in this encounter Results * Unlisted Lab Test (06/08/2024 1:25 PM EST) us Curtis R Jeannine DO LAB BLOOD ORDERABLES Final Resu lt Performing Organization Address City/[facility]/ZIP Co de Phone Number MANUALLY TRANSCRIBED [...] documented as of this encounter Care Teams Treating Machine Operator Relationship Specialty Start Date End Date Armen Sánchez DO [address], [place] [address] PCP - General Family Medicine 08/25/23 documented as of this encounter
--- OUTSIDE RECORDS SUMMARY | 2024-09-26 20:07 | XMS_ITS | Encounter Summary ---
Author Organization [facility] Address [address] [place] [address] Care Team Providers Care Merchandise Planner Name Role Phone Emi Bronson [facility] Unavailable + [phone] Armen Sánchez MD Primary Care Provider + [phone] Encounter Details Date Type Department Care Team (Late st Contact Info) Description 07/11/2024 Orders Only [facility] OB [address] [place] [place] [address] Mary Quinn LPN [address] [facility] [id number] Social History Tobacco Use Types Packs/Day Years [...] OB [address] [place] [address] Curtis Paez, DO [address] [place] [address] [address] [place] [place] [address] documented as of this encounter Procedures Procedure Name Priority Date/Time Associated Diagnosis Comments PAP SMEAR Routine 07/06/2024 12:00 AM EDT documented in this encounter Results * Pap Smear (07/06/2024 12:00 AM EDT) Swab Cervical swab / Unknown Jeannine Nurse [facility] LAB CYTOLOGY ORDERABLES Final Result EXTERNAL LAB documented in this encounter Visit Diagnoses Not on filedocumented in this encounter Care Teams Merchandise Planner Relationship Specialty Start Date End Date Armen Sánchez MD [address] [place] [address] PCP - General Family Medicine 05/05/24 Emi Bronson, [facility] [address] [place] [address] Behavioral Health 04/12/24 documented as of this encounter
--- OUTSIDE RECORDS SUMMARY | 2024-09-26 20:07 | XMS_ITS | Encounter Summary ---
Author Organization [facility] Address [address] [place] [address] Care Team Providers Care Rope Walker Name Role Phone Emi Bronson Arpit [facility] Unavailable + [phone] Armen Sánchez MD Primary Care Provider + [phone] Encounter Details Date Type Department Care Team (Late st Contact Info) Description 05/24/2024 Abstract [facility] OB [address] [place] [address] Curtis Paez, [address], [facility] Social History Tobacco Use Types [...] Description 10/03/2024 8:40 AM EDT Routine [facility] OB [address] [place] [address] Curtis Paez, [address] [place] [address] documented as of this encounter Visit Diagnoses Not on filedocumented in this encounter Care Teams Rope Walker Relationship Specialty Start Date End Date Armen Sánchez MD [address] [place] [address] PCP - General Family Medicine 05/05/24 Emi Bronson, [facility] [address] [place] [address] Behavioral Health 04/12/24 documented as of this encounter
--- OUTSIDE RECORDS SUMMARY | 2024-09-26 20:07 | XMS_ITS | Encounter Summary ---
Author Organization [facility] tem Address [facility]-[id number] [address] [place] [address] Care Team Providers Care Marine Equipment Design Engineer Name Role Phone SepidehArmen tristan Cedric [place] Primary Care Provider Encounter Details Date Type Department Care Team (Late st Contact Info) Description 09/15/2024 Telephone Maternal- Medicine at [facility] [address] [place] [address] Miriam Joseph, RN Social History Tobacco Use Types Packs/Day Years Used Date Smoking Tobacco: Every Day Cigarettes 1 13.2 Started: 08/01/2011 Smokeless Tobacco: Never Alcohol Use Standard Drinks/Week Comments Not Currently 0 (1 standard drink = 0.6 oz pur e alcohol) [facility] Utilities Answer Date Recorded In the past 12 months has [employer], gas, oil, or water [employer] threatened to shut off services in your [...] often do you attend chur ch or pentecostalism services? Never 01/27/2024 Do you belong to any clubs o r organizations such as lutheran groups, unions, fraternal or athletic groups, or [...] Answer Date Recorded Total Score 0 10/27/2023 [facility] of Occupat ional Health - Occupational [...] Recorded Do you need help finding a [facility] career center and/or a training program? [...] patient with reports of recent visit to [place] ED due to vaginal bleeding. Patient states ultrasound was performed and she was told she has a subchorionic hematoma. States was discharged with instruction to follow up with OB. Appointment scheduled with OB for 09/19/24. Patient inquiring if next MFM ultrasound needs to be sooner than scheduled. Hand Quilter reviewed information with Dr. Valencia. Per Dr. [...] Info) Description 09/29/2024 3:00 PM EDT Appointment [facility] US Imaging [address] [place] [address] Suresh Valencia MD [address], [address] [place] [address] documented as of this encounter Visit Diagnoses Not on filedocumented in this encounter Additional Health Concerns Assessment Noted Time PHQ-9 Depression Total Score: 0 10/27/19 10:25 AM EDT A Body Mass Index follow-up plan has been documented for the patient 08/10/2023 10:14 AM EDT documented as of this encounter Care Teams Marine Equipment Design Engineer Relationship Specialty Start Date End Date Armen Sánchez DO [address] [facility] [address] [facility] [place] [address] PCP - General Family Medicine 08/25/23 documented as of this encounter
--- OUTSIDE RECORDS SUMMARY | 2024-09-26 20:07 | XMS_ITS | Encounter Summary ---
Author Organization [facility] Address [id number] [address] [place] [address] Care Team Providers Care Spray Blender Name Role Phone PrincessArmen Cedric [place] Primary Care Provider Encounter Details Date Type Department Care Team (Late st Contact Info) Description 08/26/2023 Orders Only [facility] Internal Medicine - Family Medicine [address] [place] [address] Scotty Mahoney DO [address] [place] [address] Rectal bleeding (Primary Dx) Social History Tobacco Use Types Packs/Day Years Used Date Smoking Tobacco: Every Day Cigarettes 1 13.2 Started: 08/01/2011 Smokeless Tobacco: Never Alcohol Use Standard Drinks/Week Comments Not Currently 0 (1 standard drink = 0.6 oz pur e alcohol) [facility] Utilities Answer Date Recorded In the past 12 months has [place], gas, oil, or water [employer] threatened to shut off services in your [...] week 08/25/2023 How often do you attend [facility] or pentecostalism services? Never 08/25/2023 Do you belong to any clubs o r organizations such as methodist groups, unions, fraternal or athletic groups, or [...] Answer Date Recorded Total Score 6 08/25/2023 [facility] of Occupat ional Health - Occupational [...] Recorded Do you need help finding a [facility] career [facility] and/or a training program? [...] Description 09/29/2024 3:00 PM EDT Appointment [facility] US Imaging [address] [place] [address] Suresh Valencia MD [address], [address] [place] [address] documented as of this encounter Visit Diagnoses Diagnosis Rectal bleeding- Primary Hemorrhage of rectum and anus documented in this encounter Additional Health Concerns Assessment Noted Time PHQ-9 Depression Total Score: 6 08/25/19 24 9:30 AM EDT A Body Mass Index follow-up plan has been documented for the patient 08/10/2023 10:14 AM EDT documented as of this encounter Care Teams Spray Blender Relationship Specialty Start Date End Date Armen Sánchez DO [address] [facility] [place] [address] PCP - General Family Medicine 08/25/23 documented as of this encounter
[2024-09-26 20:10] VITALS: BP 108/74; PULSE 86
--- OUTSIDE RECORDS SUMMARY | 2024-09-26 20:12 | XMS_ITS | CCD ---
Demographics Address [address] [place] [address] Home Phone Mobile Phone Preferred Language en Marital Status Single Episcopal Affiliation Unknown Race White Ethnic Group Not or Lati no Author Organization [facility] Inform ion [facility] Care Team Providers Care Museum Assistant Name Role Phone SHEYCLAIRE Referring Unavailable FURLONG, ARMEN Steele Referring Unavailable FURLONG, ARMEN Steele Primary Care Unavailable HAJA OSULLIVAN Admitting Unavailable HAJA OSULLIVAN Attending Unavailable NATALIIANG, ARMEN Steele Primary Care Unavailable HAJA OSULLIVAN Attending Unavailable HAJA OSULLIVAN Referring Unavailable FURLONG, ARMEN Steele Primary Care Unavailable Unavailable Primary Care Provider Unavailjob e Armen Street DO Primary Care Provider Furlong DOArmen Primary Care Provider [facility], Emi K Unavailable [phone] MD Primary Care Provider Unavailable Primary Care Provider UnavailArmen Rodriguez MD [...] Unavailable NATALIIANG, ARMEN Steele Primary Care Unavailable VICTOIRNO CHRISTIE Admitting Unavailable VICTORINO CHRISTIE Attending Unavailable [...] mouth once daily. Active polyethylene glycol 3350 58777 mg powder for oral solution (20 sources) [...] venlafaxine 37.5 mg extended release oral capsule (5 sources) Serotonin and Norepinephrine Reuptake Inhibitor Start: [...] in 24 hours. 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 Ordering Physician: Curtis Paez D.O. Date of Service: 09/24/24 Procedure(s): US OB BPP w non-stress Accession Number(s): [id number] cc: [address] Corey D.O. The [place] [address] Patient Name: SAPNA SERRANO MRN: [facility]:[id number] date: 1995 Sex: F Assigned Patient Location: [facility] Current Patient Location: [facility] Accession/Order Number: [id number] Exam Date: 09/25/2024 08:05 Report Date: 09/25/2024 08:08 At the request of: CURTIS PAEZ DO Procedure: US OB BPP w non-stress CLINICAL DATA: History of bleeding. Possible abruption. BIOPHYSICAL PROFILE: COMPARISON: None There is a single live intrauterine gestation in cephalic presentation. The reported gestational age is 28 weeks 5 days. The heart rate vpjpsezv500 beats per minute. FINDINGS: TONE: 1 or [...] Rahman M.D. 09/25/2024 8:08 AM Dictation Location: [place] [address] Electronically authenticated by: [id number] Y Date: 09/25/2024 08:08 Dictated By: Laura Rahman M.D. Signed By: 09/25/24 0810 DD/ 0808 TD/TT: Machinist Apprentice Wood: [facility] Radiology, Radiologist, - 09/25/2024 [place] [address] Ultrasound Report Signed Patient: SAPNA SERRANO MR#: [id number] : 1995 Acct:[id number] Age/Sex: 29 / F ADM Date: Loc: [facility] 251-[address]: Curtis Paez D.O. Ordering Physician: Curtis Paez D.O. Date of Service: 09/24/24 Procedure(s): US OB BPP w non-stress Accession Number(s): [id number] cc: ARMEN STREETo,Curtis D.O. The [place] [id number] Patient Name: SAPNA SERRANO MRN: [id number] date: 1995 Sex: F Assigned Patient Location: [facility] Current Patient Location: [facility] Accession/Order Number: [id number] Exam Date: 09/25/2024 08:05 Report Date: 09/25/2024 08:08 At the request of: CURTIS PAEZ DO Procedure: US OB BPP w non-stress CLINICAL DATA: History of bleeding. Possible abruption. BIOPHYSICAL PROFILE: COMPARISON: None There is a single live intrauterine gestation in cephalic presentation. The reported gestational age is 28 weeks 5 days. The heart rate [id number] beats per minute. FINDINGS: TONE: 1 or [...] Rahman M.D. 09/25/2024 8:08 AM Dictation Location: [place] [address] Electronically authenticated by: [id number] Y Date: 09/25/2024 08:08 Dictated By: Laura Rahman M.D. Signed By: 09/25/2410 DD/ 08 TD/TT: Machinist Apprentice Wood: [facility] Radiology Study observation (narrative) [facility] US OB BPP W NON-STRESS Ordered By: Radiologist Radiology on 09-25-2024 [facility] [employer] Work Phone: US OB CERVICAL LENGTHon 09-03 [place] [address] Ultrasound Report Signed Patient: SAPNA SERRANO MR#: [id number] : 1995 Acct:[id number] Age/Sex: 29 / F ADM Date: 09/21/24 Loc: US Attending Dr: Curtis Paez D.O. Ordering Physician: Curtis Paez D.O. Date of Service: 09/21/24 Procedure(s): US OB cervical length Accession Number(s): [id number] cc: [address] ; Curtis Paez D.O. The [address] [address] Patient Name: SAPNA SERRANO MRN: [facility]:[id number] date: 1995 Sex: F Assigned Patient Location: US Current Patient Location: US Accession/Order Number: [id number] Exam Date: 09/21/2024 14:39 Report Date: 09/21/2024 [...] Jr., D.O. 09/21/2024 2:40 PM Dictation Location: [place] [address] Electronically authenticated by: [id number] Y Date: 09/21/2024 14:40 Dictated By: Hugo Atkins M.D. Signed By: 09/21/24 1443 DD/ 1440 TD/TT: Machinist Apprentice Wood: [facility] Radiology, Radiologist, MD - 09/21/2024 The [place] [id number] Ultrasound Report Signed Patient: SAPNA SERRANO MR#: [id number] : 1995 Acct:[id number] Age/Sex: 29 / F ADM Date: 09/21/24 Loc: US Attending Dr: Curtis Paez D.O. Ordering Physician: Curtis Paez D.O. Date of Service: 09/21/24 Procedure(s): US OB cervical length Accession Number(s): [id number] cc: [address] ; Curtis Paez D.O. [place] [id number] Patient Name: SAPNA SERRANO MRN: [id number]:[id number] date: 1995 Sex: F Assigned Patient Location: US Current Patient Location: US Accession/Order Number: [id number] Exam Date: 09/21/2024 14:39 Report Date: 09/21/2024 [...] Jr., D.O. 09/21/2024 2:40 PM Dictation Location: [place] [address] Electronically authenticated by: [id number] Y Date: 09/21/2024 14:40 Dictated By: Hugo Atkins M.D. Signed By: 09/21/24 144 DD/ 1440 TD/TT: Machinist Apprentice Wood: [facility] [employer] Radiology Study observation (narrative) [facility] US OB CERVICAL LENGTHOrdered By: Radiologist Radiology on 09-21-2024 [facility] [employer] Work Phone: US OB PLACENTAon 09-21-2024 [place] [address] Ultrasound Report Signed Patient: SAPNA SERRANO MR#: [id number] : 1995 Acct:[id number] Age/Sex: 29 / F ADM Date: 09/21/24 Loc: US Attending Dr: Curtis Paez D.O. Ordering Physician: Curtis Paez D.O. Date of Service: 09/21/24 Procedure(s): US OB placenta Accession Number(s): [id number] cc: [address] ; Curtis Paez D.O. The [place] [id number] Patient Name: SAPNA SERRANO MRN: [facility]:[id number] date: 1995 Sex: F Assigned Patient Location: US Current Patient Location: US Accession/Order Number: [id number] Exam Date: 09/21/2024 14:41 Report Date: 09/21/2024 [...] Jr., D.O. 09/21/2024 2:53 PM Dictation Location: [place] [address] Electronically authenticated by: [id number] Y Date: 09/21/2024 14:53 Dictated By: Hugo Atkins M.D. Signed By: 09/21/24 1456 DD/ 1453 TD/TT: Machinist Apprentice Wood: [facility] Radiology, Radiologist, MD - 09/21/2024 [place] [address] Ultrasound Report Signed Patient: SAPNA SERRANO MR#: [id number] : 1995 Acct:[id number] Age/Sex: 29 / F ADM Date: 09/21/24 Loc: US Attending Dr: Curtis Paez D.O. Ordering Physician: Curtis Paez D.O. Date of Service: 09/21/24 Procedure(s): US OB placenta Accession Number(s): [id number] cc: [address] ; Curtsi Paez D.O. [place] [address] Patient Name: SAPNA SERRANO MRN: [id number] date: 1995 Sex: F Assigned Patient Location: US Current Patient Location: US Accession/Order Number: [id number] Exam Date: 09/21/2024 14:41 Report Date: 09/21/2024 [...] Jr., D.O. 09/21/2024 2:53 PM Dictation Location: [place] [address] Electronically authenticated by: [id number] Y Date: 09/21/2024 14:53 Dictated By: Hugo Atkins M.D. Signed By: 09/21/24 1456 DD/ 1453 TD/TT: Machinist Apprentice Wood: [facility] [employer] Radiology Study observation (narrative) [facility] US OB PLACENTAOrdered By: Ra fanogfelipe Radiology on 09-21-2024 [facility] Work Phone: US OB 1 OR MORE [...] Eldon Maldonado MD 09/11/24 Final result Normal [facility] ALL CBC WITH AUTO DIFFon BASOPHILS ABSOLUTE AUTO 0.1 [facility] Basophils/100 WBC (Bld) 0.7 % 0.2 - 2.0 % [facility] Eosinophils/100 WBC (Bld) 1.8 % 0.9 - 7.0 % [facility] [employer] Erythrocyte distribution width (RBC) [Ratio] 13.7 % 11.0 - 15.0 % [facility] [employer] Hematocrit (Bld) [Volume fraction] 38.8 % 36.0 - 48.0 % [facility] [employer] Hemoglobin (Bld) [Mass/Vol] 13 g/dL 12.0 - 16.0 g/dL [facility] IMMATURE GRANULOCYTES ABS AUTO 0.06 High [facility] Immature granulocytes/100 WBC (Bld) 0.5 % 0.0 - 0.5 % [facility] Interpretation and review of laboratory results Abnormal [facility] LYMPHOCYTES ABSOLUTE AUTO 2.1 [facility] Lymphocytes/100 WBC (Bld) 17.6 % Low 20.5 - 60.0 % [facility] MCH (RBC) [Entitic mass] 30.1 pg 26.7 - 34.0 pg [facility] MCHC (RBC) [Mass/Vol] 33.5 g/dL 29.9 - 35.2 g/dL [facility] MCV (RBC) [Entitic vol] 89.8 fL 81.0 - 99.0 fL [facility] MONOCYTES ABSOLUTE AUTO 0.7 [facility] Monocytes/100 WBC (Bld) 6 % 1.7 - 12.0 % [facility] NEUTROPHILS ABSOLUTE AUTO 8.6 High [facility] Neutrophils/100 WBC (Bld) 73.4 % 43.0 - 75.0 % [facility] Platelet mean volume (Bld) [Entitic vol] 9.6 fL 9.5 - 13.5 fL [facility] are [facility]H EO # 0.2 [facility] PLT 272 [facility] TB RBC 4.32 [facility] TB WBC 11.8 High [facility] Colposcopyon 08-14-2024 Curtis Paez DO [...] paperwork completed: yes Educational handouts given: no [facility] e SEND OUT TESTon 07-28-2024 SENT TO [facility] VIA [employer] [phone] [facility] Comment on above: Result Comment: Miki ected on 07/28 AT 1418: Previously reported as [facility] VIA [employer] [phone] SENT TO [facility] VIA [employer] [phone] [facility] Comment on above: Result Comment: Miki ected on 07/28 AT 1418: Previously reported as [facility] [employer] [phone] SPECIMEN 3 MATERNAL AMNIOTIC FLUID 2 EDTA AND 1 SODIUM HEP MATERNAL Normal [facility] TEST NAME: KNOWN MUTATION ANALYSIS CFTR GENE Normal [facility] TEST NAME: MATERNAL CELL CONTAMINATION Normal [facility] TEST RESULT See separate report. View in OnBase or in EPIC. Normal [facility] AFP, SERUM, OPEN SPINA BIFID Aon 07-08-2024 AFP MOM 0.85 . [facility] [employer] AFP VALUE 28.4 ng/mL . [facility] [employer] [facility] COMMENT: Comment . [facility] [employer] [facility] Comment on above: Joan Shetty , Ph.D., [facility] Director References: Available Upon Request. Multiples Of Median Cutoffs For AFP Elevations [place]ont 2.5 Black 2.8 IDD 2.0 Twins 4.5 Abbreviation Definitions IDD - Insulin Dep Diabetes OSBR - Open Spina Bifida Risk For further inquiries contact [employer] at [phone]. This test was developed and its performance characteristics determined by [employer]. It has not been cleared or approved by the Food and Drug Administration. Performed at: [facility] [employer] [address] [place], [place] [id number] Pipeline Welder: Sonja Esposito [facility], Phone: [phone] GEST. AGE ON COLLECTION DATE 17.1 . weeks [facility] GESTAT. AGE BASED ON LMP . [facility] Comment on above: Recalculations are n ot recommended when gestational dating by LMP and ultrasound are within 10 days. INSULIN DEP DIABETES No . [facility] INTERPRETATION Comment . [facility] Comment on above: Interpretation: Scre en [...] Customer Services to discuss available options. The [employer] recommends amniocentesis be offered to women age 35 and older. MATERNAL [age]QUE [age] [facility] GESTATION No . [facility]althcare [address] [place] [address] . [facility] RACE . [facility] e RESULTS Report . [facility] e TEST RESULTS: Negative . [facility] WEIGHT 186 . lbs [facility] e N N LMP [id number] 1 17 N 1 Y 186 N N N N N White/ [facility] e RECURRENT VAGINITIS (HTRX)on 07-07-[address] [facility] ATOPOBIUM VAGINAE Not detected [facility] BVAB 2,3 (BACTERIAL VAGINOSIS ASSOCIATED BACTERIA 2, 3); MOBILUNCUS SPP 0 [facility] BVAB 2,3 (BACTERIAL VAGINOSIS ASSOCIATED BACTERIA 2, 3); MOBILUNCUS SPP Not detected [facility] ILIANA ALBICANS, PARAPSILOSIS, TROPICALIS 0 [facility] ILIANA ALBICANS, PARAPSILOSIS, TROPICALIS Not detected [facility] ILIANA GLABRATA 0 [facility] ILIANA GLABRATA Not detected [facility] ILIANA KRUSEI 0 [facility] ILIANA KRUSEI Not detected [facility] CHLAMYDIA TRACHOMATIS 22.157 Abnormal [facility] CHLAMYDIA TRACHOMATIS Detected Abnormal [facility] ERMB, C; MEFA 26.913 Abnormal [facility] ERMB, C; MEFA Detected Abnormal [facility] GARDNERELLA VAGINALIS 0 [facility] GARDNERELLA VAGINALIS Not detected [facility] Interpretation and review of laboratory results Abnormal [facility] MEGASPHAERA (TYPES 1, 2) 0 [facility] MEGASPHAERA (TYPES 1, 2) Not detected [facility] MYCOPLASMA GENITALIUM 0 [facility] MYCOPLASMA GENITALIUM Not detected [facility] NEISSERIA GONORRHOEAE 0 [facility] NEISSERIA GONORRHOEAE Not detected [facility] TET B, TET M 23.614 Abnormal [facility] are TET B, TET M Detected Abnormal [facility] are TRICHOMONAS VAGINALIS 0 [facility] TRICHOMONAS VAGINALIS Not detected [facility] e Urinalysis macro (dipstick) panel (U)on 07-06-2024 Bilirubin, UA Negative Negative - 4(70) +++ mg/dL [facility] Blood, UA Negative Negative - 50 Koby/mcL [facility] Clarity, UA Clear [facility] re Color, UA Yellow [facility] Glucose, UA Negative Negative - 1999(110) ++++ mg/dL [facility] Interpretation and review of laboratory results Abnormal [facility] Ketones, UA Positive Negative - 160(16) ++++ mg/dL [facility] Comment on above: trace Leukocytes, UA Trace Negative - 500+++ Danny/mcL [facility] Nitrite, UA Negative Negative - Positive [facility] pH, UA 6 5 - 9 [facility] e Protein, UA Trace Negative - 1999(20) ++++ mg/dL [facility] Spec Grav, UA 1.03 1 - 1.03 [facility] Urobilinogen, UA 0.2 0.2 - 12 mg/dL [facility] [place] [address] Ultrasound Report Signed Patient: SAPNA SERRANO MR#: [id number] : 1995 Acct:[id number] Age/Sex: 28 / F ADM Date: 07/05/24 Loc: US Attending Dr: Curtis Paez D.O. Ordering Physician: Curtis Paez D.O. Date of Service: 07/05/24 Procedure(s): US OB cervical length Accession Number(s): [id number] cc: [address] ; Curtis Paez D.O. The [place] [address] Patient Name: SAPNA SERRANO MRN: [id number]:[id number] date: 1995 Sex: F Assigned Patient Location: US Current Patient Location: US Accession/Order Number: [id number] Exam Date: 07/05/2024 08:08 Report Date: 07/05/2024 [...] Laura Rahman M.D.07/05/2024 8:10 AM Dictation Location: [place] [address] Electronically authenticated by: [id number] Y Date: 07/05/2024 08:10 Dictated By: Laura Rahman M.D. Signed By: 07/05/24812 DD/ 9 TD/TT: Machinist Apprentice Wood: [facility] Radiology, Radiologist, - 07/05/2024 [place] [address] Ultrasound Report Signed Patient: SAPNA SERRANO MR#: [id number] : 1995 Acct:[id number] Age/Sex: 28 / F ADM Date: 07/05/24 Loc: US Attending Dr: Curtis Paez D.O. Ordering Physician: Curtis Paez D.O. Date of Service: 07/05/24 Procedure(s): US OB cervical length Accession Number(s): [id number] cc: [address] ; Curtis Paez D.O. The [place] [id number] Patient Name: SAPNA SERRANO MRN: [facility]:[id number] date: 1995 Sex: F Assigned Patient Location: Current Patient Location: US Accession/Order Number: [id number] Exam Date: 07/05/2024 08:08 Report Date: 07/05/2024 [...] Laura Rahman M.D.07/05/2024 8:10 AM Dictation Location: [place] [address] Electronically authenticated by: [id number] Y Date: 07/05/2024 08:10 Dictated By: Laura Rahman M.D. Signed By: 07/05/24812 DD/ 9 TD/TT: Machinist Apprentice Wood: [facility] Radiology Study observation (narrative) [facility] US OB CERVICAL LENGTHOrdered By: Radiologist Radiology on 07-05-2024 [facility] [employer] Work Phone: Urinalysis macro (dipstick) panel (U)on 06-08-2024 Bilirubin, UA Negative Negative - 4(70) +++ mg/dL [facility] Blood, UA Negative Negative - 50 Koby/mcL [facility] Clarity, UA Clear [facility] re Color, UA Yellow [facility] Glucose, UA Negative Negative - 2000(110) ++++ mg/dL [facility] Interpretation and review of laboratory results Normal [facility] Ketones, UA Negative Negative - 160(16) ++++ mg/dL [facility] Leukocytes, UA Negative Negative - 500+++ Danny/mcL [facility] Nitrite, UA Negative Negative - Positive [facility] pH, UA 6 5 - 9 [facility] e Protein, UA Negative Negative - 2000(20) ++++ mg/dL [facility] Spec Grav, UA 1.02 1 - 1.03 [facility] Urobilinogen, UA 0.2 0.2 - 12 mg/dL [facility] ALL CBC WITH AUTO DIFFon BASOPHILS ABSOLUTE AUTO 0.1 [facility] Basophils/100 WBC (Bld) 0.6 % 0.2 - 2.0 % [facility] Eosinophils/100 WBC (Bld) 1.7 % 0.9 - 7.0 % [facility] Erythrocyte distribution width (RBC) [Ratio] 13.2 % 11.0 - 15.0 % [facility] Hematocrit (Bld) [Volume fraction] 41.1 % 36.0 - 48.0 % [facility] Hemoglobin (Bld) [Mass/Vol] 13.5 g/dL 12.0 - 16.0 g/dL [facility] IMMATURE GRANULOCYTES ABS AUTO 0.05 High [facility] Immature granulocytes/100 WBC (Bld) 0.5 % 0.0 - 0.5 % [facility] Interpretation and review of laboratory results Abnormal [facility] LYMPHOCYTES ABSOLUTE AUTO 1.9 [facility] Lymphocytes/100 WBC (Bld) 17 % Low 20.5 - 60.0 % [facility] MCH (RBC) [Entitic mass] 29.6 pg 26.7 - 34.0 pg [facility] MCHC (RBC) [Mass/Vol] 32.8 g/dL 29.9 - 35.2 g/dL [facility] MCV (RBC) [Entitic vol] 90.1 fL 81.0 - 99.0 fL [facility] MONOCYTES ABSOLUTE AUTO 0.8 [facility] Monocytes/100 WBC (Bld) 7 % 1.7 - 12.0 % [facility] NEUTROPHILS ABSOLUTE AUTO 8.1 High [facility] Neutrophils/100 WBC (Bld) 73.2 % 43.0 - 75.0 % [facility] Platelet mean volume (Bld) [Entitic vol] 9.6 fL 9.5 - 13.5 fL [facility] are [facility] EO # 0.2 [facility] TB PLT 312 [facility] e [facility] RBC 4.56 [facility] e TB WBC 11.1 High [facility] e BOX TESTon 05-17-2024 BOX TEST SENT OUT [facility] althcare [address] [facility] Healthcar e [address]OX[address] 05/17/24 [facility] e TINA BOX [facility] HCG ( test) Ql (U)o n 05-05-2024 Interpretation and review of laboratory results Abnormal [facility] Preg Test, Ur Positive Negative [facility] e Urinalysis macro (dipstick) panel (U)on 05-05-2024 Bilirubin, UA Negative Negative - 4(70) +++ mg/dL [facility] Blood, UA Negative Negative - 50 Koby/mcL [facility] Clarity, UA Clear [facility] re Color, UA Yellow [facility] Glucose, UA Negative Negative - 1999(110) ++++ mg/dL [facility] Interpretation and review of laboratory results Abnormal [facility] Ketones, UA Negative Negative - 160(16) ++++ mg/dL [facility] Leukocytes, UA Negative Negative - 500+++ Danny/mcL [facility] Nitrite, UA Negative Negative - Positive [facility] pH, UA 7 5 - 9 [facility] Protein, UA Positive Negative - 1999(20) ++++ mg/dL [facility] Comment on above: 30 Spec Grav, UA 1.02 1 - 1.03 [facility] Urobilinogen, UA 0.2 0.2 - 12 mg/dL [facility] Basic Metabolic Panelon 04-06 Anion gap [Moles/Vol] 12 mmol/L 9 - 16 mmol/L [facility] Calcium [Mass/Vol] 9.1 mg/dL 8.6 - 10. 4 mg/dL [facility] Chloride [Moles/Vol] 102 mmol/L 98 - 10 7 mmol/L [facility] CO2 [Moles/Vol] 23 mmol/L 20 - 31 mmol/L [facility] Creatinine [Mass/Vol] 0.5 mg/dL 0.50 - 0.90 mg/dL [facility] Est, Glom Filt Rate - PINF [facility] Comment on above: These results are not [...] 66 mg/dL Low 74 - 99 mg/dL [facility] Interpretation and review of laboratory results Abnormal [facility] Potassium [Moles/Vol] 3.8 mmol/L 3.7 - 5.3 mmol/L [facility] Sodium [Moles/Vol] 137 mmol/L 136 - 145 mmol/L [facility] Urea nitrogen [Mass/Vol] 9 mg/dL 6 - 20 mg/dL [facility] Urea nitrogen/Creatinine [Mass ratio] 18 mg/mg 9 - 20 [facility] Basic Metabolic Profon 04-27 Anion gap [Moles/Vol] 12 mmol/L Normal 9-16 [facility] Comment on above: Performed By: #### B MP, CDP #### [facility] [address] [place], [place] [id number] Pipeline Welder: Gal Katz MD BUN/CRE Ratio 18 Normal 9-20 [facility] Comment on above: Performed By: #### B MP, CDP #### [facility] [address] [place], [place] [id number] Pipeline Welder: Gal Katz MD Calcium [Mass/Vol] 9.1 mg/dL Normal 8.6-10.4 [facility] Comment on above: Performed By: #### B MP, CDP #### [facility] [address] [place], [place] [id number] Pipeline Welder: Gal Katz MD Chloride [Moles/Vol] 102 mmol/L Normal 98-107 [facility] Comment on above: Performed By: #### B MP, CDP #### [facility] [address] [place], [place] [id number] Pipeline Welder: Gal Katz MD CO2 [Moles/Vol] 23 mmol/L Normal 20-31 [facility] Comment on above: Performed By: #### B MP, CDP #### [facility] [address] [place], [place] [id number] Pipeline Welder: Gal Katz MD Creatinine [Mass/Vol] 0.5 mg/dL Normal 0.50-0.90 [facility] Comment on above: Performed By: #### B MP, CDP #### [facility] [address] [place], [place] 5625883 Pipeline Welder: Gal Katz MD GFR/1.73 sq M.predicted among non-blacks MDRD (S/P/Bld) [Vol rate/Area] mL/min/{1.73_m2} Normal >60 [facility] Comment on above: Result Comment: These results [...] Performed By: #### B JACQUELIN, CDP #### [facility] [address] [place] [address] [place] [address] Pipeline Welder: Gal Katz MD Glucose [Mass/Vol] 66 mg/dL Low 74-99 [facility] Comment on above: Performed By: #### B JACQUELIN, CDP #### [facility] [address] [place] [address] [place] [address] Pipeline Welder: Gal Katz MD Potassium [Moles/Vol] 3.8 mmol/L Normal 3.7-5.3 [facility] Comment on above: Performed By: #### B JACQUELIN, CDP #### [facility] [address] [place] [address] [place] [address] Pipeline Welder: Gal aKtz MD Sodium [Moles/Vol] 137 mmol/L Normal 136-145 [facility] Comment on above: Performed By: #### B JACQUELIN, CDP #### [facility] [address] [place] [address] [place] [address] Pipeline Welder: Gal Katz MD Urea nitrogen [Mass/Vol] 9 mg/dL Normal 6-20 [facility] Comment on above: Performed By: #### B JACQUELIN, CDP #### [facility] [address] [place] [address] [place], [place] [id number] Pipeline Welder: Gal Katz MD CBC with Auto Differentialon 04-27-2024 Basophils (Bld) [#/Vol] 0.09 10*3/uL [facility] Basophils/100 WBC (Bld) 1 % 0 - 2 % [facility] Eosinophils (Bld) [#/Vol] 0.17 10*3/uL [facility] Eosinophils/100 WBC (Bld) 2 % 1 - 4 % [facility] Erythrocyte distribution width (RBC) [Ratio] 12.7 % 11.8 - 14.4 % [facility] Hematocrit (Bld) [Volume fraction] 41.1 % 36.3 - 47.1 % [facility] Hemoglobin (Bld) [Mass/Vol] 14.0 g/dL 11.9 - 15.1 g/dL [facility] Immature granulocytes (Bld) [#/Vol] 0.04 10*3/uL [facility] Immature granulocytes/100 WBC (Bld) 0 % 0 [facility] Interpretation and review of laboratory results Abnormal [facility] Lymphocytes/100 WBC (Bld) 20 % Low 24 - 43 % [facility] Lymphocytes/100 WBC (Bld) 2.31 % [facility] MCH (RBC) [Entitic mass] 30.1 pg 25.2 - 33.5 pg [facility] MCHC (RBC) [Mass/Vol] 34.1 g/dL 28.4 - 34.8 g/dL [facility] MCV (RBC) [Entitic vol] 88.4 fL 82.6 - 102.9 fL [facility] Monocytes/100 WBC (Bld) 8 % 3 - 12 % [facility] Monocytes/100 WBC (Bld) 0.90 % [facility] Neutrophils/100 WBC (Bld) 69 % High 36 - 65 % [facility] Nucleated RBC/100 WBC (Bld) [Ratio] 0.0 % 0.0 per 100 WBC [facility] Platelet mean volume (Bld) [Entitic vol] 9.4 fL 8.1 - 13.5 fL [facility] Platelets (Bld) [#/Vol] 327 10*3/uL [facility] RBC (Bld) [#/Vol] 4.65 10*6/uL 3.95 - 5.1 1 m/uL [facility] Segmented neutrophils/100 WBC (Bld) 8.09 % [facility] WBC other (Bld) [#/Vol] 11.6 High [facility] CBC with Diffon 04-27-2024 Abs. Basophil 0.09 k/uL Normal 0.00-0.20 [facility] Comment on above: Performed By: #### B JACQUELIN, CDP #### [facility] [address] [place] [address] [place], [place] [id number] Pipeline Welder: Gal Katz MD Abs.Imm.Granulocyte 0.04 k/uL Normal 0.00-0.30 [facility] Comment on above: Performed By: #### B JACQUELIN, CDP #### [address] [place], [facility] Pipeline Welder: Gal Katz MD Abs.Neutrophil (Seg) 8.09 k/uL Normal 1.50-8.10 [facility] Comment on above: Performed By: #### B JACQUELIN, CDP #### [address] [place] [address] Pipeline Welder: Gal Katz MD Basophils/100 WBC (Bld) 1 % Normal 0-2 [facility] Comment on above: Performed By: #### B JACQUELIN, CDP #### [facility] [address] [place] [address] [place], [place] [id number] Pipeline Welder: Gal Katz MD Eosinophils (Bld) [#/Vol] 0.17 10*3/uL Normal 0.00-0.44 [facility] Comment on above: Performed By: #### B JACQUELIN, CDP #### [address] [place], [place] [id number] Pipeline Welder: Gal Katz MD Eosinophils/100 WBC (Bld) 2 % Normal 1-4 [facility] Comment on above: Performed By: #### B JACQUELIN, CDP #### [facility] [address] [place], [place] 2546683 Pipeline Welder: Gal Katz MD Erythrocyte distribution width (RBC) [Ratio] 12.7 % Normal 11.8-14.4 [facility] Comment on above: Performed By: #### B MP, CDP #### [facility] [address] [place], [place] [id number] Pipeline Welder: Gal Katz MD Hematocrit (Bld) [Volume fraction] 41.1 % Normal 36.3-47.1 [facility] Comment on above: Performed By: #### B JACQUELIN, CDP #### [address] [place], [place] 1695583 Pipeline Welder: Gal Katz MD Hemoglobin (Bld) [Mass/Vol] 14.0 g/dL Normal 11.9-15.1 [facility] Comment on above: Performed By: #### B JACQUELIN, CDP #### [address] [place], [place] 5041783 Pipeline Welder: Gal Katz MD Immature granulocytes/100 WBC (Bld) 0 % Normal 0 [facility] Comment on above: Performed By: #### B JACQUELIN, CDP #### [address] [place], [facility] Pipeline Welder: Gal Katz MD Lymphocytes (Bld) [#/Vol] 2.31 10*3/uL Normal 1.10-3.70 [facility] Comment on above: Performed By: #### B JACQUELIN, CDP #### [facility] [address] [place] [address] Pipeline Welder: Gal Katz MD Lymphocytes/100 WBC (Bld) 20 % Low 24-43 [facility] Comment on above: Performed By: #### B MP, CDP #### [facility] [address] [place] [address] [place], [place] [id number] Pipeline Welder: Gal Katz MD MCH (RBC) [Entitic mass] 30.1 pg Normal 25.2-33.5 [facility] Comment on above: Performed By: #### B MP, CDP #### [address] [place], [place] 4887983 Pipeline Welder: Gal Katz MD MCHC (RBC) [Mass/Vol] 34.1 g/dL Normal 28.4-34.8 [facility] Comment on above: Performed By: #### B MP, CDP #### [address] [place], [place] [id number] Pipeline Welder: Gal Katz MD MCV (RBC) [Entitic vol] 88.4 fL Normal 82.6-102.9 [facility] Comment on above: Performed By: #### B MP, CDP #### [address] [place], [place] 2663983 Pipeline Welder: Gal Katz MD Monocytes (Bld) [#/Vol] 0.90 10*3/uL Normal 0.10-1.20 [facility] Comment on above: Performed By: #### B MP, CDP #### [address] [place], [place] [id number] Pipeline Welder: Gal Katz MD Monocytes/100 WBC (Bld) 8 % Normal 3-12 [facility] Comment on above: Performed By: #### B MP, CDP #### [address] [place], [place] 0394583 Pipeline Welder: Gal Katz MD Neutrophil (Seg) 69 % High 36-65 [facility] Comment on above: Performed By: #### B MP, CDP #### [address] [place], [place] 8660383 Pipeline Welder: Gal Katz MD NRBC Automated 0.0 per 100 WBC Normal 0.0 [facility] Comment on above: Performed By: #### B JACQUELIN, CDP #### [facility] [address] [place], [place] 6902183 Pipeline Welder: Gal Katz MD Platelet mean volume (Bld) [Entitic vol] 9.4 fL Normal 8.1-13.5 [facility] Comment on above: Performed By: #### B MP, CDP #### [address] [place], [place] 1029483 Pipeline Welder: Gal Katz MD Platelets (Bld) [#/Vol] 327 10*3/uL Normal 138-453 [facility] Comment on above: Performed By: #### B JACQUELIN, CDP #### [address] [place] [address] Pipeline Welder: Gal Katz MD RBC (Bld) [#/Vol] 4.65 10*6/uL Normal 3.95-5.11 [facility] Comment on above: Performed By: #### B JACQUELIN, CDP #### [address] [place], [place] 1703683 Pipeline Welder: Gal Katz MD WBC (Bld) [#/Vol] 11.6 10*3/uL High 3.5-11.3 [facility] Comment on above: Performed By: #### B MP, CDP #### [address] [place], [place] 7068583 Pipeline Welder: Gal Katz MD HCG, Quanton 04-27-2024 HCG, Quant 34358.0 mIU/mL High 0-7 [facility] Comment on above: Result Comment: Non-preg premeno <=5 Postmeno <=8 Male <=3 If HCG results do not concur with clinical observations, additional testing to confirm results is recommended. Performed By: #### B HCG #### [facility] [address] [place], [place] 3787883 Pipeline Welder: Gal Katz MD HCG, Quantitative, on 04-27-2024 [place] [address].0 m[IU]/mL High [facility] Comment on above: Non-preg premeno <=5 Postmeno <=8 Male <=3 If HCG results do not concur with clinical observations, additional testing to confirm results is recommended. Interpretation and review of laboratory results Abnormal [facility] TYPE AND SCREENon 04-27-2024 ABO and Rh group Nom (Bld) Blood group A Rh(D) positive [facility] Arm Band Number [id number] [facility] Blood Bank Sample Expiration 04/30/2024,2359 [facility] Blood group antibodies identified Nom Negative [facility] Type + Screenon 04-27-2024 Type + Screen Sample Expiration 04/30/2024,2359 Arm Band Number [id number] ABO/Rh(D) A POSITIVE Antibody Screen NEGATIVE Normal [facility] Comment on above: Performed By: #### T YS #### [facility] [address] [place] [address] Dr. [place], [place] 6106683 Pipeline Welder: Gal Katz MD US OB LESS THAN [...] Onur Mack MD 04/27/24 Final result Normal [facility] Single viable intrauterine with an estimated gestational age of 7 weeks 2 days and an estimated date of delivery of 12/12/2024 with no gross abnormality seen. Normal size right ovary with normal blood flow documented to the ovary and no ovarian masses seen. Nonvisualization of the left ovary which is probably obscured due to overlying bowel gas No adnexal mass or free fluid. [facility] EXAMINATION: FIRST TRIMESTER OBSTETRIC ULTRASOUND 04/27/2024 [...] adnexal mass or free fluid is seen. [facility] Onur Mack MD - 04/27/2024 EXAMINATION: [...] gas No adnexal mass or free fluid. [facility] Radiology Study observation (narrative) [facility] US OB LESS THAN 14 WEEKS SIN GLE OR FIRST GESTATION W DOPPLEROrdered By: Onur Mack on 04-27-2024 [facility] Work Phone: Urinalysis w/ Microon 2024 Bacteria 1+ Abnormal NONE [facility] Comment on above: Performed By: #### U AMIC #### [facility] [address] [place] [address] Pipeline Welder: Gal Katz MD Bilirubin, SemiQt,Ur Negative Normal NEG [facility] Comment on above: Performed By: #### U AMIC #### [facility] [address] [place] [address] Pipeline Welder: Gal Katz MD Blood, Urine 1+ Abnormal NEG [facility] Comment on above: Performed By: #### U AMIC #### [facility] [address] [place], [place] 8503283 Pipeline Welder: Gal Katz MD Clarity (U) SLIGHTLY CLOUDY Abnormal CLEAR [facility] Comment on above: Performed By: #### U AMIC #### [facility] [address] [place], [place] 0698583 Pipeline Welder: Gal Katz MD Color (U) Yellow Normal YEL [facility] Comment on above: Performed By: #### U AMIC #### [facility] [address] [place], [place] 1127583 Pipeline Welder: Gal Katz MD Epithelial cells LM Ql (Urine sed) 20 TO 50 Normal 0-25 [facility] Comment on above: Performed By: #### U AMIC #### [facility] [address] [place], [place] 3876383 Pipeline Welder: Gal Katz MD Glucose Ql (U) Negative Normal NEG [facility] Comment on above: Performed By: #### U AMIC #### [facility] [address] [place] [address] [place], [place] [id number] Pipeline Welder: Gal Katz MD Ketones Ql (U) Negative Normal NEG [facility] Comment on above: Performed By: #### U AMIC #### [facility] [address] [place], [place] 8549783 Pipeline Welder: Gal Katz MD Leukocyte esterase Test strip Ql (U) Negative Normal NEG [facility] Comment on above: Performed By: #### U AMIC #### [facility] [address] [place] [address] Pipeline Welder: Gal Katz MD Nitrite,Ur Negative Normal NEG [facility] Comment on above: Performed By: #### U AMIC #### [facility] [address] [place] [address] Pipeline Welder: Gal Katz MD PH,Ur 6.0 Normal 5.0-9.0 [facility] Comment on above: Performed By: #### U AMIC #### [facility] [address] [place] [address] [place] [address] Pipeline Welder: Gal Katz MD Protein Ql (U) Negative Normal NEG [facility] Comment on above: Performed By: #### U AMIC #### [facility] [address] [place] [address] [place], [place] 6992283 Pipeline Welder: Gal Katz MD Spec. [place],Ur 1.025 High 1.010-1.020 [facility] Comment on above: Performed By: #### U AMIC #### [facility] [address] [place] [address] [place], [place] 4552983 Pipeline Welder: Gal Katz MD Urine RBC's 2 TO 5 Normal 0-2 [facility] Comment on above: Performed By: #### U AMIC #### [facility] [address] [place] [address] [place] [address] Pipeline Welder: Gal Katz MD Urine WBC's 2 TO 5 Normal 0-5 [facility] Comment on above: Performed By: #### U AMIC #### [facility] [address] [place] [address] [place] [address] Pipeline Welder: Gal Katz MD Urobilinogen,Ur Normal Normal 0.0-1.0 [facility] Comment on above: Performed By: #### U AMIC #### [facility] [address] [place], [place] 8231583 Pipeline Welder: Gal Katz MD Urinalysis with Microscopico n 04-27-2024 Bacteria LM Ql (Urine sed) 1+ Abnormal None [facility] Bilirubin Ql (U) Negative NEGATIVE [facility] Clarity (U) SLIGHTLY CLOUDY Abnormal Clear [facility] Color (U) Yellow Yellow [facility] Epithelial cells LM.HPF (Urine sed) [#/Area] 20 TO 50 [facility] Glucose Test strip (U) [Mass/Vol] Negative NEGATIVE mg/dL [facility] Hemoglobin Auto test strip Ql (U) 1+ Abnormal NEGATIVE [facility] Interpretation and review of laboratory results Abnormal [facility] Ketones (U) [Mass/Vol] Negative NEGATIVE mg/dL [facility] Leukocyte esterase Test strip Ql (U) Negative NEGATIVE [facility] Nitrite Ql (U) Negative NEGATIVE [facility] pH (U) 6.0 [pH] 5.0 - 9.0 [facility] Protein (U) [Mass/Vol] Negative NEGATIVE mg/dL [facility] RBC LM.HPF (Urine sed) [#/Area] 2 TO 5 [facility] Specific gravity (U) [Rel density] 1.025 High 1.010 - 1.020 [facility] Urobilinogen Qn (U) Normal 0.0 - 1. 0 EU/dL [facility] WBC LM.HPF (Urine sed) [#/Area] 2 TO 5 [facility] COMPLETE BLOOD COUNTon 09-26 Erythrocyte distribution width (RBC) [Ratio] 13.7 % Normal 11.5-15.0 [facility] Comment on above: Performed By: #### [facility], 24097-0, TSHR #### [facility] ([id number]) [address], [address] [place] [address] Hematocrit (Bld) [Volume fraction] 44.4 % Normal 35-47 [facility] Comment on above: Performed By: #### [facility], 62132-1, TSHR #### [facility] ([id number]) [address] [place] [address] Hemoglobin (Bld) [Mass/Vol] 15.1 g/dL Normal 11.7-15.5 [facility] Comment on above: Performed By: #### C JOANA CMP, 58136-1, TSHR #### [facility] ([id number]) [address], [address] [place] [address] MCH (RBC) [Entitic mass] 29.8 pg Normal 27-34 [facility] Comment on above: Performed By: #### Puneet BERNARD CMP, 27003-2, TSHR #### [facility] ([id number]) [address], [address] [place] [address] MCHC (RBC) [Mass/Vol] 34.0 g/dL Normal 32-36 [facility] Comment on above: Performed By: #### Puneet BERNRAD CMP, 61671-6, TSHR #### [facility] ([id number]) [address], [facility] [address] [place] [address] MCV (RBC) [Entitic vol] 88 fL Normal 80-100 [facility] Comment on above: Performed By: #### Puneet BERNARD CMP, 72634-2, TSHR #### [facility] ([id number]) [address], [facility] [address] [place] [address] Platelet mean volume (Bld) [Entitic vol] 8.5 fL Normal 7-12 [facility] Comment on above: Performed By: #### Puneet BERNARD CMP, 30227-0, TSHR #### [facility] ([id number]) [address], [address] [place] [address] Platelets (Bld) [#/Vol] 302 10*3/uL Normal 150-450 [facility] Comment on above: Performed By: #### Puneet BERNARD CMP, 71767-2, TSHR #### [facility] ([id number]) [address], [address] [place] [address] RBC COUNT 5.07 X10E12/L Normal 3.80-5.20 [facility] Comment on above: Performed By: #### Puneet BC, CMP, 28910-9, TSHR #### [facility] ([id number]) [address], [address] [place] [address] WBC (Bld) [#/Vol] 6.1 10*3/uL Normal 4.0-11.0 [facility] Comment on above: Performed By: #### C CHASE BERNARD, 18905-9, TSHR #### [facility] ([id number]) [address], [address] [place] [address] COMPREHENSIVE METABOLIC PANE Hermelindo 09-27-2023 Albumin [Mass/Vol] 4.4 g/dL Normal 3.2-5.3 [facility] Comment on above: Performed By: #### C CHASE BERNARD, 32646-2, TSHR #### [facility] ([id number]) [address], [address] [place] [address] ALP [Catalytic activity/Vol] 62 U/L Normal 39-130 [facility] Comment on above: Performed By: #### Puneet BERNARD CMP, 45306-4, TSHR #### [facility] ([id number]) [address], [address] [place] [address] ALT [Catalytic activity/Vol] 19 U/L Normal 0-31 [facility] Comment on above: Performed By: #### Puneet BERNARD CMP, 84316-9, TSHR #### [facility] ([id number]) [address], [address] [place] [address] Anion gap [Moles/Vol] 9 mmol/L Normal 5-15 [facility] Comment on above: Performed By: #### Puneet BERNARD, CMP, 42023-3, TSHR #### [facility] ([id number]) [address], [address] [place] [address] AST [Catalytic activity/Vol] 19 U/L Normal 0-41 [facility] Comment on above: Performed By: #### C BC, CMP, 03308-9, TSHR #### [facility] ([id number]) [address], [address] [place] [address] Bilirubin [Mass/Vol] 0.7 mg/dL Normal 0.3-1.2 [facility] Comment on above: Performed By: #### Puneet BERNARD CMP, 03217-2, TSHR #### [facility] ([id number]) [address], [address] [place] [address] Calcium [Mass/Vol] 9.5 mg/dL Normal 8.5-10.5 [facility] Comment on above: Performed By: #### Puneet BERNADR CMP, 62335-0, TSHR #### [facility] ([id number]) [address], [address] [place] [address] Chloride [Moles/Vol] 106 mmol/L Normal 98-109 [facility] Comment on above: Performed By: #### Puneet BERNARD CMP, 56973-5, TSHR #### [facility] ([id number]) [address], [address] [place] [address] CO2 [Moles/Vol] 24 mmol/L Normal 22-32 [facility] Comment on above: Performed By: #### Puneet BERNARD CMP, 54512-1, TSHR #### [facility] ([id number]) [address], [address] [place] [address] Creatinine [Mass/Vol] 0.75 mg/dL Normal 0.40-1.00 [facility] Comment on above: Result Comment: METH OD TRACEABLE TO IDMS STANDARD Performed By: #### Puneet BERNARD, CMP, 65346-2, TSHR #### [facility] ([id number]) [address], [address] [place] [address] eGFR (CKD-EPI) NON-RACE DEPENDENT >90 Normal >59 [facility] Comment on above: Result Comment: Reported eGFR is based on the CKD-EPI 2020 equation that does not use a race coefficient. Performed By: #### Puneet BERNARD CMP, 58613-6, TSHR #### [facility] ([id number]) [address], [address] [place] [address] Glucose [Mass/Vol] 70 mg/dL Normal 65-99 [facility] Comment on above: Performed By: #### Puneet BERNARD CMP, 35557-7, TSHR #### [facility] ([id number]) [address], [address] [place] [address] Potassium [Moles/Vol] 4.3 mmol/L Normal 3.5-5.0 [facility] Comment on above: Performed By: #### Puneet BERNARD CMP, 73019-9, TSHR #### [facility] ([id number]) [address], [address] [place] [address] Protein [Mass/Vol] 7.3 g/dL Normal 6.0-8.0 [facility] Comment on above: Performed By: #### Puneet BERNARD CMP, 58305-2, TSHR #### [facility] ([id number]) [address], [address] [place] [address] Sodium [Moles/Vol] 139 mmol/L Normal 134-146 [facility] Comment on above: Performed By: #### Puneet BERNARD CMP, 89575-0, TSHR #### [facility] ([id number]) [address], [address] [place] [address] Urea nitrogen [Mass/Vol] 9 mg/dL Normal 5-23 [facility] Comment on above: Performed By: #### Puneet BERNARD CMP, 13814-6, TSHR #### [facility] ([id number]) [address], [address] [place] [address] Lipid 1996 panelon 4 Cholesterol [Mass/Vol] 192 mg/dL Normal 150-200 [facility] Comment on above: Performed By: #### Puneet BERNARD, CMP, 71042-1, TSHR #### [facility] ([id number]) [address], [address] [place] [address] Cholesterol in HDL [Mass/Vol] 61 mg/dL Normal >39 [facility] Comment on above: Result Comment: HDL <40 mg/dL - High Risk HDL > or = 40mg/dL- Desirable HDL >60 mg/dL - Negative Risk Performed By: #### Puneet BERNARD, CMP, 88781-6, TSHR #### [facility] ([id number]) [address], [address] [place] [address] Cholesterol in LDL [Mass/Vol] 118 mg/dL Normal <130 [facility] Comment on above: Result Comment: LDL <100 mg/dL - Desirable LDL >160 mg/dL - High Risk Performed By: #### Puneet BERNARD, CMP, 53512-0, TSHR #### [facility] ([id number]) [address], [address] [place] [address] Cholesterol in VLDL [Mass/Vol] 13 mg/dL Normal 0-30 [facility] Comment on above: Performed By: #### Puneet BERNARD, CMP, 17221-4, TSHR #### [facility] ([id number]) [address], [address] [place] [address] CHOLESTEROL:HDL 3.1 Normal 1.0-5.0 [facility] Comment on above: Performed By: #### Puneet BERNARD, CMP, 56601-3, TSHR #### [facility] ([id number]) [address], [address] [place] [address] Triglyceride [Mass/Vol] 64 mg/dL Normal 27-150 [facility] Comment on above: Performed By: #### C BC, CMP, 67330-1, TSHR #### [facility] ([id number]) [address], [address] [place] [address] TSH WITH REFLEXon 09-27-2023 TSH 1.21 uIU/mL Normal 0.49-4.67 [facility] Comment on above: Performed By: #### C BC, CMP, 69658-1, TSHR #### [facility] ([id number]) [address], [address] [place] [address] HCG ( test) Ql (U)o n 09-03-2023 Beta HCG ( test) Ql (U) Negative Normal NEG [facility] Comment on above: Performed By: #### 2 106-3 #### [facility] [place] ([id number]) [address] [facility], [place] [address] Surgical Pathologyon 024 Surgical Pathology Normal [facility] Comment on above: Result Comment: [facility] [address] [place] [address] Surgical Pathology Consultation Patient Name:SAPNA SERRANO:1995 (Age: 28)Gender:FTaken:09/03/2023eported:09/07/2023hysician(s):Haja Osullivan MD ([phone])Copy To: Rec. #:[id number]: #[id number] Final Pathologic Diagnosis Sigmoid colon biopsies: Unremarkable colonic mucosa. No colitis, granuloma or dysplasia identified. No microscopic colitis or inflammatory bowel disease identified. Report Electronically Signed Out ssi/09/07/2023Surendra P. Hayes, M.D. Interpretation performed at [facility], [address] [place] [address], License number: [id number]. Clinical History Rectal bleeding. Gross Description Received in formalin labeled florida SERRANO BX are eight light cortes soft tissue bits, 0.2-0.4 cm.The specimen is filtered and entirely submitted in a single cassette. (1, ns, [id number],m3) DM. dm/09/04/2023O Specimen(s) Received Sigmoid biopsy Fee Codes(s): 1; 98087 CHLAMYDIA/GC PCR, FLon 08-09 CHLAMYDIA/GC PCR, FL [...] are dependent on adequate specimen collection. Normal [facility] Comment on above: Performed By: #### C GT #### [facility] [place] ([id number]) [address] [place] [address], FIRST [place], [place] [id number] [place] [address] LAB ([id number]) [address] [place] [address], [address] [place] [address] Cytologyon 08-10-[address] [facility] Comment on above: Result Comment: [facility] [address] [place] [address] Gynecologic Cytology Consultation Patient Name:SAPNA SERRANO:1995 (Age: 28)Gender:FTaken:4Reported:4Physician(s):Claire Kat M.D. ([phone])Copy To: Rec. #:[id number]: #[id number] Final Cytologic Interpretation ThinPrep Pap Test (Cervical): Satisfactory for evaluation. A transformation zone component is present. NEGATIVE FOR INTRAEPITHELIAL LESION OR MALIGNANCY. Shift in daniella suggestive of bacterial vaginosis. 08/26/2023 Interpretation performed at [facility], [address] [place] [address], License number: [id number]. Electronically Signed Out By JOSUÉ Kimble(ASCP) Date of Last Menstrual Period: 07/13/23 Other Clinical Conditions: Previous abnormal pap Z01.419 Mds Rn exam wo/abn findings Source of Specimen ThinPrep Pap Test (Cervical) Thin Prep Pap (TEA BAG PACKER) Fee Code(s): G0145 The Pap test is a screening test with an inherent, but low, probability of error. The Pap test is primarily effective for the diagnosis and prevention of squamous cell carcinoma. Regular screening is critical for prevention. ThinPrep liquid-based slides, which meet the Animal Husbandry Teacher criteria for automated screening, have been screened by the ThinPrep Imaging System (as of 12/20/06) along with an additional manual rescreening by a geochemical manager and, if indicated, by a pathologist. HIGH RISK HPV W/GENOon 08-09 HPV 31+33+35+39+45+51+52 +56+58+59+66+68 DNA ALLISON+probe Ql (Cvx) HPV SPECIMEN TYPE ThinPrep HPV 16 Negative (qualifier value) HPV 18 Negative (qualifier value) OTHER HIGH RISK HPV Negative (qualifier value) HPV types 31,33,35,39,45,52,56, 58,59,66 and 68 DNA were undetectable. Normal [facility] Comment on above: Performed By: #### 7 1431-1 #### [facility] [place] ([id number]) [address] [place] [address], [place] [address] [facility] ([id number]) [address] [place] [address], [address] [place] [id number] POCT , urineon Beta HCG ( test) Ql (U) Negative [employer] Interpretation and review of laboratory results Normal [facility] [employer] [email or web address] Vital Signs Date Time Vital Sign Value Performing Clinician Facility 09-10-2024 23:35-0400 Diastolic blood pressure 73 mm[Hg] Victorino Christie DO Work Phone: [facility] [employer] 09-10-2024 23:35-0400 Heart rate 75 /min [facility]u [facility] 09-10-2024 23:35-0400 Systolic blood pressure 127 mm[Hg] Victorino Gallowayeau DO [facility] 09-10-2024 22:22-0400 Body temperature 98.1 [degF] Victorino Gustafsonu DO [facility] 09-10-2024 22:22-0400 Respiratory rate 16 /min Victorino Gustafsonu DO [facility] 09-10-2024 22:22-0400 SaO2% (BldA) [Mass fraction] 98 % Victorino Gustafsonu DO [facility] 08-30-2024 10:38-0400 Body weight 88.91 kg Jocy YOUNG Work Phone: [facility] 08-30-2024 10:38-0400 Diastolic blood pressure 74 mm[Hg] Jocy YOUNG Work Phone: [facility] 08-30-2024 10:38-0400 Systolic blood pressure 130 mm[Hg] Jocy YOUNG Work Phone: [facility] 08-14-2024 10:57-0400 Body weight 87.91 kg Curtis Jeannine DO Work Phone: [facility] 08-14-2024 10:57-0400 Diastolic blood pressure 70 mm[Hg] Curtis Jeannine DO Work Phone: [facility] 08-14-2024 10:57-0400 Systolic blood pressure 116 mm[Hg] Curtis Jeannine DO Work Phone: [facility] 08-01-2024 13:31-0400 Body weight 85.19 kg Curtis Jeannine DO Work Phone: [facility] 08-01-2024 13:31-0400 Diastolic blood pressure 70 mm[Hg] Curtis Jeannine DO Work Phone: [facility] 08-01-2024 13:31-0400 Systolic blood pressure 120 mm[Hg] Curtis Jeannine DO Work Phone: [facility] 07-28-2024 09:19-0400 Body height 162.6 cm Lyndsey Burns MD Work Phone: [facility] 07-28-2024 09:19-0400 Body mass index (BMI) [Ratio] 32.63 kg/m2 Lyndsey Bursn MD Work Phone: [facility] 07-28-2024 09:19-0400 Body weight 86.27 kg Lyndsey Burns MD Work Phone: [facility] 07-28-2024 09:19-0400 Diastolic blood pressure 72 mm[Hg] Lyndsey Burns MD Work Phone: [facility] 07-28-2024 09:19-0400 Heart rate 84 /min Lyndsey Burns MD Work Phone: [facility] 07-28-2024 09:19-0400 Systolic blood pressure 115 mm[Hg] Lyndsey Burns MD Work Phone: [facility] 07-06-2024 09:09-0400 Body weight 84.73 kg Jocy YOUNG Work Phone: [facility] 07-06-2024 09:09-0400 Diastolic blood pressure 72 mm[Hg] Jocy YOUNG Work Phone: [facility] 07-06-2024 09:09-0400 Systolic blood pressure 120 mm[Hg] Jocy YOUNG Work Phone: [facility] 06-08-2024 09:41-0500 Body weight 83.83 kg Curtis Jeannine DO Work Phone: [facility] 06-08-2024 09:41-0500 Diastolic blood pressure 70 mm[Hg] Curtis Jeannine DO Work Phone: [facility] 06-08-2024 09:41-0500 Systolic blood pressure 120 mm[Hg] Curtis Jeannine DO Work Phone: [facility] 05-09-2024 14:22-0500 Body weight 86.09 kg Curtis Jeannine DO Work Phone: [facility] 05-09-2024 14:22-0500 Diastolic blood pressure 72 mm[Hg] Curtis Jeannine DO Work Phone: [facility] 05-09-2024 14:22-0500 Systolic blood pressure 118 mm[Hg] Curtis Jeannine DO Work Phone: [facility] 05-05-2024 10:32-0500 Body weight 83.52 kg Nom Nurse [facility] 05-05-2024 10:32-0500 Diastolic blood pressure 78 mm[Hg] [facility] Nurse [facility] 05-05-2024 10:32-0500 Systolic blood pressure 120 mm[Hg] [facility] Nurse [facility] 04-27-2024 20:58-0500 SaO2% (BldA) [Mass fraction] 98 % Zully Raya MD Work Phone: [facility] [employer] 04-27-2024 17:53-0500 Body height 162.6 cm Zully Raya MD [facility] 04-27-2024 17:53-0500 Body mass index (BMI) [Ratio] 29.18 kg/m2 Zully Raya MD Work Phone: [employer] 04-27-2024 17:53-0500 Body temperature 98.8 [degF] Zully Raya MD [facility] 04-27-2024 17:53-0500 Body weight 77.11 kg Zully Raya MD Work Phone: [facility] [employer] 04-27-2024 17:53-0500 Diastolic blood pressure 93 mm[Hg] Zully Raya MD Work Phone: [facility] [employer] 04-27-2024 17:53-0500 Heart rate 90 /min Zully Raya MD Work Phone: [facility] [employer] 04-27-2024 17:53-0500 Respiratory rate 20 /min Zully Raya MD [facility] 04-27-2024 17:53-0500 Systolic blood pressure 150 mm[Hg] Zully Raya MD Work Phone: [facility] [employer] 01-27-2024 09:54-0400 Body height 162.6 cm ArmenLookItng DO [facility] 01-27-2024 09:54-0400 Body mass index (BMI) [Ratio] 28.15 kg/m2 Armen Isis Bi[employer] DO [facility] 01-27-2024 09:54-0400 Body temperature 97.7 [degF] ArmenLookItng DO [facility] 01-27-2024 09:54-0400 Body weight 74.39 kg Armen Furlong DO [facility] 01-27-2024 09:54-0400 Diastolic blood pressure 72 mm[Hg] Armen Furlong DO [facility] 01-27-2024 09:54-0400 Heart rate 89 /min Armen Furlong DO [facility] 01-27-2024 09:54-0400 Respiratory rate 18 /min Armen Isis [employer] DO [facility] 01-27-2024 09:54-0400 SaO2% (BldA) [Mass fraction] 99 % Armen Furlong DO [facility] 01-27-2024 09:54-0400 Systolic blood pressure 118 mm[Hg] Armen Furlong DO Work Phone: [facility] 10-27-2023 10:26-0400 Body height 162.6 cm Armen Furlong DO Work Phone: [facility] 10-27-2023 10:26-0400 Body mass index (BMI) [Ratio] 29.94 kg/m2 Armen Furlong DO Work Phone: [facility] 10-27-2023 10:26-0400 Body temperature 97.81 [degF] Armen Furlong DO Work Phone: [facility] 10-27-2023 10:26-0400 Body weight 79.11 kg Armen Furlong DO Work Phone: [facility] 10-27-2023 10:26-0400 Diastolic blood pressure 60 mm[Hg] Armen Furlong DO Work Phone: [facility] 10-27-2023 10:26-0400 Heart rate 71 /min Armen Furlong DO Work Phone: [facility] 10-27-2023 10:26-0400 SaO2% (BldA) [Mass fraction] 99 % Armen Furlong DO Work Phone: [facility] 10-27-2023 10:26-0400 Systolic blood pressure 100 mm[Hg] Armen Furlong DO Work Phone: [facility] 09-27-2023 10:05-0400 Body height 162.6 cm Armen Furlong DO Work Phone: [facility] 09-27-2023 10:05-0400 Body mass index (BMI) [Ratio] 30.59 kg/m2 Armen Furlong DO Work Phone: [facility] 09-27-2023 10:05-0400 Body temperature 97.81 [degF] Armen Furlong DO Work Phone: [facility] 09-27-2023 10:05-0400 Body weight 80.83 kg Armen Furlong DO Work Phone: [facility] 09-27-2023 10:05-0400 Diastolic blood pressure 62 mm[Hg] Armen Furlong DO Work Phone: [facility] 09-27-2023 10:05-0400 Heart rate 81 /min Armen Furlong DO Work Phone: [facility] 09-27-2023 10:05-0400 SaO2% (BldA) [Mass fraction] 99 % Armen Masoodlong DO Work Phone: [facility] 09-27-2023 10:05-0400 Systolic blood pressure 100 mm[Hg] Armen Furlong DO Work Phone: [facility] 09-01-2023 11:00-0400 Body height 162.6 cm Pmh 1 [facility] 09-01-2023 11:00-0400 Body mass index (BMI) [Ratio] 31.58 kg/m2 Pmh 1 [facility] 09-01-2023 11:00-0400 Body weight 83.46 kg Pmh 1 [facility] 08-25-2023 09:33-0400 Body height 162.6 cm Armen Correialong DO Work Phone: [facility] 08-25-2023 09:33-0400 Body mass index (BMI) [Ratio] 31.72 kg/m2 Armen Masoodlong DO Work Phone: [facility] 08-25-2023 09:33-0400 Body temperature 98.71 [degF] Armen Masoodlong DO Work Phone: [facility] 08-25-2023 09:33-0400 Body weight 83.83 kg Armen Masoodlong DO Work Phone: [facility] 08-25-2023 09:33-0400 Diastolic blood pressure 62 mm[Hg] Armen Furlong DO [facility] 08-25-2023 09:33-0400 Heart rate 89 /min Armen Furlong DO [facility] 08-25-2023 09:33-0400 Respiratory rate 18 /min Armen Furlong DO Work Phone: [facility] [employer] 08-25-2023 09:33-0400 SaO2% (BldA) [Mass fraction] 98 % Armen Furlong DO [facility] 08-25-2023 09:33-0400 Systolic blood pressure 98 mm[Hg] Armen Furlong DO [facility] 08-10-2023 09:46-0400 Body height 162.6 cm Claire Kat MD [facility] 08-10-2023 09:46-0400 Body mass index (BMI) [Ratio] 33.3 kg/m2 Claire Kat MD Work Phone: [facility] [employer] 08-10-2023 09:46-0400 Body weight 88 kg Claire Kat MD [facility] 08-10-2023 09:46-0400 Diastolic blood pressure 70 mm[Hg] Claire Kat MD [facility] 08-10-2023 09:46-0400 Systolic blood pressure 128 mm[Hg] Claire Kat MD Work Phone: [facility] [employer] [facility] Encounters Encounter Date Encounter Type Care Provider Facility Start: 09-25-2024 End: 09-25-2024 Clinisync Result Encounter Curtis Paez DO Work Phone: [facility] External Department Unsolicited Start: 09-25-2024 End: 09-25-2024 Clinisync Result Encounter Curtis Jeannine DO Work [...] above: Anxiety, generalized (Primary Dx); Second trimester (HHS-HCC); 27 weeks gestation of ([facility]-HCC); Cystic fibrosis carrier, antepartum ([facility]-HCC) Start: 09-18-2024 End: 09-18-2024 Bamboo flowsheet Curtis Jeannine DO Work Phone: [facility] Start: 09-18-2024 End: 09-18-2024 Bamboo flowsheet Curtis Jeannine DO Work Phone: [facility] Start: 09-15-2024 End: 09-15-2024 Telephone encounter Miriam Joseph RN [facility] Start: 09-10-2024 End: 09-11-2024 [facility] Start: 09-10-2024 End: 09-11-2024 Subsequent hospital visit by physician Victorino Christie DO Work Phone: [facility] Start: 09-10-2024 Emergency department patient visit ARMEN Steele [facility] Start: 09-07-2024 End: 09-07-2024 Office outpatient new 45 minutes Rashida Alvarez MD Work Phone: [facility] Comment on above: Cystic fibrosis fletcher ier (Primary Dx); Encounter for consultation Start: 09-07-2024 End: 09-07-2024 ambulatory RASHIDA Prieto ALVAREZ [facility] Comment on above: Cystic fibrosis fletcher ier (Primary Dx); Abnormal genetic test during Start: 08-30-2024 End: 08-30-2024 Bamboo flowsheet Jocy YOUNG Work Phone: [facility] Start: 08-30-2024 End: 08-30-2024 Bamboo flowsheet Jocy YOUNG Work Phone: [facility] Start: 08-30-2024 End: 08-30-2024 Clinisync Result Encounter Curtis Jeannine DO Work Phone: [facility] External Department Unsolicited Start: 08-30-2024 End: 08-30-2024 flow sheet Jocy YOUNG Work Phone: [facility] Comment on above: Second trimester pre gnancy; 25 weeks gestation of Start: 08-25-2024 End: 08-25-2024 ambulatory [facility] Start: 08-18-2024 End: 08-18-2024 Orders Only Barbra Samuel RN [facility] Start: 08-17-2024 End: 08-18-2024 Telephone encounter Rachel DUVAL Work Phone: [facility] Start: 08-14-2024 End: 08-14-2024 Patient encounter procedure [...] Burns MD Work Phone: [facility] Comment on above: Cystic fibrosis fletcher ier (Primary Dx) Start: 07-28-2024 End: 07-28-2024 Orders Only Miriam Joseph RN [facility] Comment on above: Cystic fibrosis fletcher ier (Primary Dx); Abnormal genetic test during Start: 07-12-2024 End: 07-12-2024 Telephone encounter Rachel CORTEZ Work Phone: [facility] Start: 07-11-2024 End: 07-11-2024 Bamboo flowsheet Emi Bronson [facility] Work Phone: [facility] Start: 07-11-2024 End: 07-11-2024 Bamboo flowsheet Emi Bronson [facility] Work Phone: [facility] Start: 07-11-2024 End: 07-11-2024 Clinical Support Emi Bronson [facility] Work Phone: [facility] Comment on above: Moderate episode of recurrent major depressive disorder (CMS/HCC); ALICIA (generalized anxiety disorder) (CMS/HCC) Start: 07-06-2024 End: 07-06-2024 Bamboo flowsheet Jocy YOUNG Work Phone: [facility] Start: 07-06-2024 End: 07-10-2024 Bamboo flowsheet Jocy YOUNG Work Phone: [facility] Start: 07-06-2024 End: 07-10-2024 Clinisync Result Encounter Jocy YOUNG Work Phone: [facility] External Department Unsolicited Start: 07-06-2024 End: 07-07-2024 External Result Encounter Jocy YOUNG Work Phone: [facility] External Department Unsolicited Start: 07-06-2024 End: 07-06-2024 Patient encounter procedure Jocy YOUNG Work Phone: [facility] Start: 07-06-2024 End: 07-06-2024 Periodic preventive med est patient 18-39 yrs Jocy YOUNG Work Phone: [facility] Comment on above: 17 weeks gestation o f ; Second trimester ; Well woman exam with routine gynecological exam; Exposure to STD; Vaginal discharge Start: 07-05-2024 End: 07-05-2024 Clinisync Result Encounter Curtis Jeannine DO Work Phone: [facility] External Department Unsolicited Start: 07-05-2024 End: 07-05-2024 Clinisync Result Encounter Curtis Jeannine DO Work Phone: [facility] External Department Unsolicited Start: 06-20-2024 End: 06-20-2024 Telephone encounter Lara Lovelace [facility] Start: 06-20-2024 End: 06-20-2024 Telemedicine consultation with patient Rachel HERRERA Work Phone: [facility] Comment on above: Cystic fibrosis fletcher ier (Primary Dx); Abnormal genetic test during ; Family history of developmental delay; Family history of spina bifida Start: 06-20-2024 End: 06-20-2024 ambulatory [facility] Start: 06-16-2024 End: 06-16-2024 Chart abstracting Scanning Provider External [facility] Start: 06-08-2024 End: 06-08-2024 Bamboo [...] 05-24-2024 End: 05-24-2024 Clinical Support Emi Bronson [facility] Work Phone: [facility] Comment on above: Moderate episode of recurrent [...] 05-02-2024 End: 05-02-2024 Bamboo flowsheet Emi Bronson [facility] Work Phone: [facility] Start: 05-02-2024 End: 05-02-2024 Bamboo flowsheet Emi Bronson [facility] Work Phone: [facility] Start: 05-02-2024 End: 05-02-2024 Clinical Support Emi Bronson [facility] Work Phone: [facility] Comment on above: Moderate episode of recurrent major depressive disorder (CMS/HCC); ALICIA (generalized anxiety disorder) (CMS/HCC) Start: 04-27-2024 End: 04-27-2024 Emergency department patient visit Zully Raya MD Work Phone: [facility] Emergency Department Comment on above: Abdominal cramping ( Primary Dx); Arm contusion, right, initial encounter Start: 04-18-2024 End: 04-18-2024 Orders Only Aicha Richard LPN [facility] Comment on above: Positive t est (Primary Dx) Start: 01-27-2024 End: 01-27-2024 Office outpatient visit [address] DO [facility] Comment on above: Current episode of m ajor depressive disorder without prior episode, unspecified depression episode severity (Primary Dx); Overweight Start: 01-27-2024 End: 01-27-2024 [facility]ulatory [facility] Start: 01-21-2024 End: 01-21-[address] DO Work Phone: [facility] - [facility] Start: 12-13-2023 End: 12-13-2023 Bamboo flowsheet Emi Bronson [facility] Start: 12-13-2023 End: 12-13-2023 Bamboo flowsheet Emi Bronson [facility] Work Phone: [facility] Start: 12-13-2023 End: 12-13-2023 Clinical Support Emi Bronson [facility] Work Phone: [facility] Comment on above: Moderate episode of recurrent major depressive disorder (HCC) (CMS/HCC); ALICIA (generalized anxiety disorder) (CMS/HCC) Start: 11-29-2023 End: 11-29-2023 Bamboo flowsheet Emi Bronson [facility] Work Phone: [facility] Start: 11-29-2023 End: 11-29-2023 Bamboo flowsheet Emi Bronson [facility] [facility] Work Phone: [facility] Start: 11-29-2023 End: 11-29-2023 Clinical Support Emi Bronson [facility] Work Phone: [facility] Comment on above: Moderate episode of recurrent major depressive disorder (HCC) (CMS/HCC); ALICIA (generalized anxiety disorder) ([facility]/HCC) Start: 10-27-2023 End: 10-27-2023 ambulatory [facility] Start: 10-27-2023 End: 10-27-2023 Office outpatient visit 25 minutes Armen Bunn [facility] Comment on above: Overweight (Primary Dx); Anxiety; Depression, unspecified depression type; Onychomycosis Start: 10-18-2023 End: 10-18-[address] DO Work Phone: [facility] Start: 10-03-2023 End: 10-04-[address] DO Work Phone: [facility] Comment on above: Class 1 obesity due to excess calories with body mass index (BMI) of 31.0 to 31.9 in adult, unspecified whether serious comorbidity present Start: 09-27-2023 End: 09-27-2023 ambulatory [facility] Start: 09-27-2023 Encounter for genera l adult medical examination without abnormal findings [facility] Start: 09-27-2023 End: 09-27-2023 Patient encounter status Armen Street DO Work Phone: [facility] [place] Work Phone: Start: 09-27-2023 End: 09-27-2023 Periodic preventive med est patient 18-[address] DO Work Phone: [facility] Comment on above: Well adult health ch aashish (Primary Dx); Class 1 obesity due to excess calories without serious comorbidity with body mass index (BMI) of 31.0 to 31.9 in adult; Rectal bleeding; Onychomycosis; Benign skin lesion Start: 09-27-2023 End: 09-27-2023 ambulatory [facility] Start: 09-27-2023 Encounter for genera l adult medical examination without abnormal findings [facility] Start: 09-03-2023 End: 09-04-2023 Evaluation and management of inpatient [facility] Start: 09-02-2023 End: 09-02-2023 ambulatory [facility] Phone Call Provider 1 [facility] - Pre Admit Start: 09-01-2023 End: 09-01-2023 ambulatory [facility] Start: 08-25-2023 End: 08-25-2023 Office outpatient new [address] DO Work Phone: [facility] Comment on above: Rectal bleeding (Lucita sangeeta Dx); Mild major depression (CMS-HCC); Class 1 obesity due to excess calories with body mass index (BMI) of 31.0 to 31.9 in adult, unspecified whether serious comorbidity present Start: 08-10-2023 End: 08-10-2023 Encounter for gynecological examination (general) (routine) without abnormal findings Claire Kat MD Work Phone: [facility] [employer] Start: 08-10-2023 End: 08-10-2023 Initial preventive medicine new pt age 18-39yrs Claire Kat MD Work Phone: [facility] Comment on above: Encounter for gyneco logical examination without abnormal finding (Primary Dx); Screening for STD (sexually transmitted disease); Pap smear, as part of routine gynecological examination; Encounter for initial prescription of vaginal ring hormonal contraceptive Start: 08-10-2023 End: 08-10-2023 Patient encounter status Claire Kat MD Work Phone: [facility] Start: 08-10-2023 End: 08-10-[address] [facility] Start: 08-10-2023 Encounter for gynecological examination (general) (routine) without abnormal findings [facility] Procedures Date Procedure Procedure Detail Performing Clinician Start: 09-25-2024 US OB BPP W NON-STRESS Curtis Jeannine DO Work Phone: Start: 09-21-2024 US OB PLACENTA Curtis Fa [...] Lyndsey Burns MD Work Phone: Start: 07-05-2024 US OB CERVICAL LENGTH C orey Jeannine [...] assessment Armen Street DO Work Phone: Start: 08-25-2023 Adult depression scr eening assessment Armen Street DO Work Phone: Start: 08-10-2023 Urine test visual color cmprsn meths Claire Kat MD Work Phone: Start: 08-10-2023 Adult depression scr eening assessment Claire Kat MD Work Phone: Start: 08-10-2023 Microscopic observat ion [Identifier] in Cervix by Cyto stain Armen Street DO Work Phone: Plan of Treatment Date Care Activity Detail Author Start: 2068 Respiratory Syncytia l Virus (RSV) or age 60 yrs+ (1 - 1-dose 75+ series) Respiratory Syncytial Virus (RSV) or age 60 yrs+ (1 - 1-dose 75+ series) [facility] Start: 08-16-2028 DTaP,Tdap and Td Vaccines (2 - Td or Tdap) DTaP,Tdap and Td Vaccines (2 - Td or Tdap) [facility] Start: 08-16-2028 DTaP/Tdap/Td vaccine (2 - Td or Tdap) DTaP/Tdap/Td vaccine (2 - Td or Tdap) [facility] Start: 07-07-2027 Screening for malign ant neoplasm of cervix Pap Smear [facility] Start: 08-09-2026 Screening for malign ant neoplasm of cervix Pap Smear [facility] Start: 09-07-2025 End: 09-07-2025 US MFM with or without consult US MFM with or without consult Imaging Routine Cystic fibrosis carrier Abnormal genetic test during Expected: 09/07/2025 (Approximate), Expires: 09/07/2025 [facility] Work Phone: Comment on above: Expected: 09/07/2025 (Approximate), Expires: 09/07/2025 Start: 07-28-2025 Adult BMI Screening Adult BMI Screen ing [facility] Start: 07-28-2025 Tobacco Screening Tobacco Screening [facility] Start: 07-28-2025 End: 07-28-2025 US MFM with or without consult US MFM with or without consult Imaging Routine Cystic fibrosis carrier Abnormal genetic test during Expected: 07/28/2025 (Approximate), Expires: 07/28/2025 [facility] Work Phone: Comment on above: Expected: 07/28/2025 (Approximate), Expires: 07/28/2025 Start: 02-24-2025 Tobacco Counseling Tobacco Counselin g [facility] Start: 01-26-2025 Adult BMI Screening Adult BMI Screen ing [facility] Start: 01-26-2025 Tobacco Screening Tobacco Screening [facility] Start: 12-04-2024 Influenza vaccination Influenza Vacc ine [facility] Start: 11-03-2024 Influenza vaccination Flu vacc ine (Season Ended) Yan Mathur [facility] Start: 10-26-2024 Adult BMI Screening Adult BMI Screen ing [facility] Start: 10-26-2024 Depression Screening Depression Scre ening [facility] Start: 10-26-2024 Tobacco Screening Tobacco Screening [facility] Start: 10-03-2024 End: 10-03-2024 Patient encounter procedure 10/03/2024 1:40 PM EDT Routine [facility] [address] [facility] [address] Curtis Paez, DO [address] [place], [place] [id number] [facility] Start: 09-29-2024 End: 09-29-2024 Patient encounter procedure 09/29/2024 3:00 PM EDT Appointment [facility] [address] [place] [address] Lyndsey Burns MD [address] [place] [address] [facility] Start: 09-26-2024 Adult BMI Screening Adult BMI Screen ing [facility] Start: 09-26-2024 Depression Screening Depression Scre ening [facility] Start: 09-26-2024 Tobacco Screening Tobacco Screening [facility] Start: 09-18-2024 End: 09-18-2024 Patient encounter procedure 09/18/2024 3:40 PM EDT Routine [facility] [address] [place] [phone] Curtis Paez, DO [address] [place], [place] [phone] Arrived [facility] Comment on above: Arrived Start: 09-18-2024 End: 01-18-2025 US for US OB follow up transabdominal approach Imaging Routine Cystic fibrosis carrier, antepartum ([facility]) Expected: 09/18/2024 (Approximate), Expires: 01/18/2025 [facility] Work Phone: Comment on above: Expected: 09/18/2024 (Approximate), Expires: 01/18/2025 Start: 09-02-2024 Adult BMI Screening Adult BMI Screen ing [facility] Start: 09-02-2024 Tobacco Screening Tobacco Screening [facility] Start: 08-30-2024 End: 08-30-2024 Patient encounter procedure 08/30/2024 9:50 AM EDT Routine [facility] [address] [facility] [phone] Jocy Ruby PA [address] [facility] [place] [address] [facility] Start: 08-25-2024 End: 08-25-2024 Patient encounter procedure 08/25/2024 9:45 AM EDT Appointment [facility] [address] [place] [address] [facility] [place] Start: 08-24-2024 Adult BMI Screening Adult BMI Screen ing [facility] Start: 08-24-2024 Depression Screening Depression Scre ening [facility] Start: 08-24-2024 Tobacco Screening Tobacco Screening [facility] Start: 08-10-2024 End: 08-10-2024 Clinical Support 08/10/2024 11:00 AM EDT Clinical Support [facility] [address] [place] [phone] Emi Bronson, [facility] [address] [place] [address] [facility] Start: 08-09-2024 Adult BMI Follow Up Plan Adult BMI Follow Up Plan [facility] Start: 08-09-2024 Adult BMI Screening Adult BMI Screen ing [facility] Start: 08-09-2024 Depression Screening Depression Scre ening [facility] Start: 08-07-2024 End: 08-07-2024 Patient encounter procedure 08/07/2024 11:30 AM EDT Procedure Visit [facility] [address] [facility] [phone] Curtis Paez, DO [address] [place] [address] [facility] Start: 08-01-2024 End: 08-01-2025 CBC panel - Blood by Automated count CBC Lab Routine Diabetes mellitus screening Expected: 08/01/2024 (Approximate), Expires: 08/01/2025 [facility] Comment on above: Expected: 08/01/2024 (Approximate), Expires: 08/01/2025 Start: 08-01-2024 End: 08-01-2025 Measurement of glucose 1 hour after glucose challenge for glucose tolerance test Glucose tolerance, 1 hour Lab Routine Diabetes mellitus screening Expected: 08/01/2024 (Approximate), Expires: 08/01/2025 [facility] Comment on above: Expected: 08/01/2024 (Approximate), Expires: 08/01/2025 Start: 08-01-2024 End: 08-01-2024 Patient encounter procedure 08/01/2024 1:20 PM EDT Routine [facility] OB [address] [place] [phone] Curtis Paez, DO [address] [place] [address] [facility] Start: 07-28-2024 End: 07-28-2024 Patient encounter procedure [facility] Start: 07-11-2024 End: 07-11-2024 Clinical Support 07/11/2024 12:00 PM EDT Clinical Support [facility] [address] [place] [address] Emi Bronson, [facility] [address] [place] [address] [facility] Start: 07-06-2024 End: 08-05-2024 Alpha fetoprotein, maternal Alpha fetoprotein, maternal Lab Routine 17 weeks gestation of Second trimester Expected: 07/06/2024 (Approximate), Expires: 08/05/2024 [facility] Comment on above: Expected: 07/06/2024 (Approximate), Expires: 08/05/2024 Start: 07-06-2024 End: 07-06-2024 Patient encounter procedure [facility] Comment on above: Arrived Start: 06-20-2024 End: 06-20-2024 [facility] Start: 06-08-2024 End: 06-08-2025 US Pelvis transvaginal US OB transvaginal Imaging Routine 13 weeks gestation of Second trimester History of loop electrosurgical excision procedure (LEEP) of cervix affecting , antepartum Expected: 06/08/2024, Expires: 06/08/2025 [facility] Work Phone: Comment on above: Expected: 06/08/2024 , Expires: 06/08/2025 Start: 06-08-2024 End: 06-08-2024 Patient encounter procedure 06/08/2024 9:20 AM EST Routine [facility] [address] [facility] [phone] Curtis Paez DO [address] [facility] [place] [address] [facility] Start: 05-24-2024 End: 05-24-2024 Clinical Support 05/24/2024 10:00 AM EST Clinical Support [facility] [address] [place] [address] Emi Bronson, [facility] [address] [place] [address] [facility] Start: 05-09-2024 End: 05-09-2024 Patient encounter procedure [facility] Comment on above: Arrived Start: 05-09-2024 End: 05-09-2025 US Pelvis transvaginal US OB transvaginal Imaging Routine H/O LEEP Expected: 05/09/2024, Expires: 05/09/2025 [facility] Comment on above: Expected: 05/09/2024 , Expires: 05/09/2025 Start: 05-05-2024 End: 05-05-2025 ABO/Rh ABO/Rh Lab Routine Missed menses , unspecified gestational age Expected: 05/05/2024 (Approximate), Expires: 05/05/2025 [facility] Comment on above: Expected: 05/05/2024 (Approximate), Expires: 05/05/2025 Start: 05-05-2024 End: 05-05-2025 Blood type and Indirect antibody screen panel - Blood Type and screen Lab Routine Missed menses , unspecified gestational age Expected: 05/05/2024 (Approximate), Expires: 05/05/2025 [facility] Work Phone: Comment on above: Expected: 05/05/2024 (Approximate), Expires: 05/05/2025 Start: 05-05-2024 End: 05-05-2025 Drugs of abuse panel - Urine by Screen method Rapid drug screen, urine Lab Routine , unspecified gestational age Encounter for supervision of normal first in first trimester Expected: 05/05/2024 (Approximate), Expires: 05/05/2025 [facility] Comment on above: Expected: 05/05/2024 (Approximate), Expires: 05/05/2025 Start: 05-05-2024 End: 05-05-2024 ambulatory 05/05/2024 10:00 AM EST Initial [facility] [address] [place] [address] [facility] Start: 05-05-2024 End: 05-05-2024 Professional / ancillary services management 05/05/2024 9:30 AM EST Ancillary Procedure [facility] [address] [place] [address] [facility] Start: 05-03-2024 End: 05-03-2024 Patient encounter procedure 05/03/2024 10:30 AM EST Office Visit [facility] [address] [place] [address], DO [address] [place] [address] [facility] Start: 05-02-2024 End: 05-02-2024 Telemedicine consultation with patient 05/02/2024 10:45 AM EST Telemedicine [facility]ne[facility] [address] [place] [phone] Angela Monson, PALEONTOLOGY TE[employer]ER[employer]INDER SELECTOR [address] [facility] [place] [address] [facility] Start: 01-27-2024 End: 01-27-2024 Patient encounter procedure 01/27/2024 10:00 AM EDT Office Visit [facility] [address] [place] [address], DO [address] [place] [address] [facility] Start: 12-27-2023 End: 12-27-2023 Clinical Support 12/27/2023 10:00 AM EDT Clinical Support [facility] [address] [place] [address] Emi Bronson, [facility] [address] [place] [address] [facility] Start: 12-13-2023 End: 12-13-2023 Clinical Support 12/13/2023 11:00 AM EDT Clinical Support [facility] [address] [place] [address] Emi Bronson, [facility] [address] [place] [address] [facility] Start: 12-05-2023 COVID-19 Vaccine ( season) COVID-19 Vaccine ( season) [facility] Start: 12-05-2023 COVID-19 Vaccine () COVID-19 Vaccine () [facility] Start: 12-05-2023 Influenza vaccination Influenza Vacc ine [facility] Start: 11-04-2023 Influenza vaccination Flu vaccine (# 1) [facility] Start: 10-28-2023 End: 10-28-2023 Patient encounter procedure 10/28/2023 11:00 AM EDT [facility] [address] [place] [address] DO [address], [place] [address] [facility] Start: 10-27-2023 End: 10-27-2023 Patient encounter procedure 10/27/2023 10:15 AM EDT [facility] [address] [place] [address] DO [address] [place] [address] [facility] Start: 09-27-2023 End: 09-27-2023 Patient encounter procedure 09/27/2023 10:00 AM EDT Office Visit [facility] [address] [place] [address], DO [address], [place] [address] [facility] Start: 09-03-2023 End: 09-03-2023 Admission to same day surgery center 09/03/2023 1:30 PM EDT - 09/03/2023 2:30 PM EDT Surgery [facility] - Endoscopy [address] [place] [phone] Haja Osullivan, DO [address] [place] [address] COLONOSCOPY DIAGNOSTIC / SCREENING [80889 (CPT )] [facility] Comment on above: COLONOSCOPY DIAGNOST IC / SCREENING [68250 (CPT )] Start: 09-03-2023 End: 09-03-2023 Colonoscopy flx dx w/collj spec when pfrmd COLONOSCOPY DIAGNOSTIC / SCREENING rectal bleeding 09/03/2023 1:30 PM EDT [facility] Start: 09-03-2023 Subsequent hospital visit by physician 09/03/2023 1:30 PM EDT Hospital Encounter [facility] [address] [place] [phone] Haja Osullivan, DO [address] [place] [address] [facility] Start: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
== END 2024-09-26 20:44 | disposition home or self-care (01) ==
LOC: FBCO 20:04 → FBC 20:06
PROVIDERS: PCP Family Medicine; Visit Provider Obstetrics & Gynecology
DX: O26.893 Other specified pregnancy related conditions, third trimester (principal); Z3A.29 29 weeks gestation of pregnancy
CPT/HCPCS: 59025

== ENCOUNTER 2024-09-28 19:02 | Outpatient (OUT) | payer OTHER, SELFPAY ==
[2024-09-28 19:08] VITALS: BP 123/67; PULSE 85
== END 2024-09-28 19:34 | disposition home or self-care (01) ==
LOC: FBCO 19:02 → FBC 19:03 → FBCO 19:04 → FBC 19:14
PROVIDERS: PCP Family Medicine; Visit Provider Obstetrics & Gynecology
DX: O26.893 Other specified pregnancy related conditions, third trimester (principal); Z3A.29 29 weeks gestation of pregnancy
CPT/HCPCS: 59025

== ENCOUNTER 2024-10-09 16:57 | Outpatient (OUT) | payer OTHER, SELFPAY ==
--- OUTSIDE RECORDS SUMMARY | 2024-09-29 14:41 | XMS_ITS | Encounter Summary ---
Author Organization [facility] tem Address [id number] [address] [place] [address] Care Team Providers Care Jig And Fixture Maker Name Role Phone Princess Armen Steele DO Primary Care Provider + [phone] Reason for Visit * Diagnostic Imaging (Routine) - Pending Review Specialty Diagnoses / Procedures Referred By Thom patel Referred To Contact Maternal and Medicine Diagnoses Cystic fibrosis carrier Abnormal genetic test during Procedures US MFM with or without consult US MFM with or without consult Chrissie Bullock MD [address], [address] [place] [address] Phone: tel: fax: Maternal- Medicine at [facility] [address] [place] [address] Phone: tel: fax: Referral ID Status Reason Start Date Expiration Date V isits Requested Visits Authorized [id number] Pending Review 09/07/2024 09/07/2025 1 1 Encounter Details Date Type Department Care Team (Latest Contact Info) Description 09/29/2024 2:41 PM EDT - 09/29/2024 11:59 PM EDT Hospital Encounter [facility] - MFM US Imaging [address] [place] [id number] Suresh Valencia MD [address], [address] [place] [address] Cystic fibrosis carrier; Abnormal genetic test during Discharge Disposition: Home Social History Tobacco Use Types Packs/Day Years Used Date Smoking Tobacco: Every Day Cigarettes 1 13.2 Started: 08/01/2011 Smokeless Tobacco: Never Alcohol Use Standard Drinks/Week Comments Not Currently 0 (1 standard drink = 0.6 oz pur e alcohol) [facility] Utilities Answer Date Recorded In the past 12 months has e [employer], gas, oil, or water [employer] threatened to shut off services in [...] often do you attend chur ch or scientologist services? Never 01/27/2024 Do you belong to [...] Answer Date Recorded Total Score 0 10/27/2023 [facility] [place] of Occupat ional Health - Occupational Stress Questionnaire Answer Date Recorded Do you feel stress - tense, restless, nervous, or anxious, or unable to sleep at night because your mind is troubled all the time - these days? To some extent 08/25/2023 Exercise Vital Sign Answer Date Recorde d Days of Exercise per Week Not on file 2023 On average, how many minutes do you [...] Recorded Do you need help finding a [facility] career center and/or a training program? No 08/25/2023 Hunger Screening Answer Date Recorded Within the past 12 months we worried whether our food would run out before we got money to buy more. Never True 09/29/2024 Within the past 12 months th e food we bought just didn't last and we didn't have money to get more. Never True 09/29/2024 Purpose - Life Answer Date Recorded I [...] on file documented as of this encounter Medications at Time of Discharge FLUoxetine (PROzac) 20 mg capsule Take 1 capsule (20 mg total) by mouth in the morning. 30 capsule 3 01/27/2024 magnesium oxide (MAGOX) 400 mg tablet Take 1 tablet (400 mg total) by mouth in the morning. PNV 19/iron ps,heme/folic/dha ( MV & MIN ORAL) Take 1 tablet by mouth in the morning. polyethylene glycol (GLYCOLAX) 17 gram packet Take 17 g by mouth in the morning. venlafaxine XR (EFFEXOR XR) 37.5 mg 24 hr capsule Take 1 capsule (37.5 mg total) by mouth in the morning. documented as of this encounter Plan of Treatment Upcoming Encounters Date Type Department Care Team (Late st Contact Info) Description 10/12/2024 3:15 PM EDT Appointment [facility] US Imaging [address] [place] [address] 10/19/2024 2:00 PM EDT Initial [facility] [address] [place] [address] Rain Bond DO [address] [facility] [place] [address] [place] [address] 10/19/2024 3:30 PM EDT Appointment [facility] US Imaging [address] [place] [address] 10/30/2024 11:00 AM EDT Appointment [facility] US Imaging [address] [place] [address] 10/30/2024 11:30 AM EDT Office Visit Maternal- Medicine at [facility] [address] [place] [address] Angela Perez MD [address] [facility], [address] [place] [address] documented as of this encounter Procedures Procedure Name Priority Date/Time Associated Diagnosis Comments US MF OB FOLLOW-UP, 1 FETUS Routine 09/29/2024 4:32 PM EDT Cystic fibrosis carrier Abnormal genetic test during documented in this encounter Results * US [facility] OB FOLLOW-UP, 1 FETUS (09/29/2024 4:32 PM EDT) Anatomical Region Laterality Modality OB-AIRCRAFT BODY REPAIRER Ultrasound 09/29/2024 3:41 PM EDT Narrative 09/29/2024 4:35 PM EDT NAME: JEREMY BORDEN : 1995 SEX: F Accession Number: [id number] ORDERING PHYSICIAN: CHRISSIE BULLOCK REFERRING PHYSICIAN: MAGAN TRISTAN Coding ----- --------- Procedures 34640: Follow-up Ultrasound, per fetus [address]70: Doppler velocimetry, ; middle cerebral artery Indication ----- --------- Abnormal finding on screening of mother-MOB + FOB CF carriers, Depression, Anxiety , Supervision of high risk , recent trauma to abdomen , prominent bowel , cystic fibrosis History ----- --------- OB History 1. Para 0 [id number] Current ----- --------- Cell free DNA low risk analysis Maternal Assessment ----- --------- Physical Exam Height 163 cm, 5 ft 4 in. Initial weight 86 kg, 190 lb. Initial BMI 32.61 kg/m Method ----- --------- Transabdominal ultrasound examination ----- --------- Dupont . Number of fetuses: 1 Dating ----- --------- LMP on: 03/07/2024 GA by LMP 29 w + 3 d DOMINIQUE by LMP: 12/12/2024 Previous Ultrasound on: 04/27/2024 Type of prior assessment: GA GA at prior assessment date 7 w + 2 d GA by previous U/S 29 w + 3 d DOMINIQUE by previous Ultrasound: 12/12/2024 Ultrasound examination on: 09/29/2024 GA by U/S based upon: AC, BPD, Femur, HC GA by U/S 29 w + 3 d DOMINIQUE by U/S: 12/12/2024 Assigned: based on the LMP, selected on 07/28/2024 Assigned GA 29 w + 3 d Assigned DOMINIQUE: 12/12/2024 General Evaluation ----- --------- Cardiac activity Present. FHR 134 bpm. Presentation: cephalic Placenta: Placental site: anterior, away from cervical os Umbilical cord: Cord vessels: 3 vessel cord. Insertion site: documented previously Amniotic fluid: Amount of AF: normal amount. MVP 5.6 cm Biometry ----- --------- Standard BPD 70.6 mm 28w 2d 11% Hadlock OFD 98.1 mm 31w 5d 95% Dank HC 269.8 mm 29w 3d 17% Hadlock Cerebellum tr 37.2 mm 30w 4d 83% Hill AC 256.2 mm 29w 6d 55% Hadlock Femur 57.8 mm 30w 2d 59% Hadlock Humerus 47.6 mm 28w 0d 12% Dank HC / AC 1.05 EFW 1,456 g 50% Hadlock EFW (lb) 3 lb EFW (oz) 3 oz EFW by: Hadlock ([id number]) Extended Tibia 47.0 mm 28w 4d 22% Dank Med Spec 4.2 mm CM 7.4 mm 65% Nicolaides Head / Face / Neck Cephalic index 0.72 2% Nicolaides Extremities / Bony Struc FL / BPD 0.82 FL / HC 0.21 FL / AC 0.23 Other Structures FHR 134 bpm Anatomy ----- --------- The following structures appear normal: Head/Neck: Cranium. Lateral ventricles. Cavum septi pellucidi. Cerebellum. Cisterna magna. Heart/Thorax: 4-chamber view. Cardiac position. Cardiac axis. Cardiac size. Cardiac rhythm. Diaphragm. Abdomen: Stomach. Kidneys. Bladder. Doppler ----- --------- Mid Cerebral Artery: normal PI 2.39 70% Ebbing RI 0.89 91% Page PS 54.40 cm/s PS 1.38 MoM ED 5.91 cm/s TAmax 23.42 cm/s 95% Ebbing Maternal Structures ----- --------- Uterus Visualized Cervix Suboptimal Approach - Transabdominal Right Ovary Not visualized Left Ovary Not visualized Cul de Sac Suboptimal Impression ----- --------- Single viable intrauterine with appropriate interval growth. EFW measures at the 50%, AC measures at the 55%. Amniotic fluid MVP measures 5.6 cm. MCA PSV is in the unremarkable range for the evaluation of anemia. No sonographic evidence of placental abruption visualized at this time. bowel appears prominent measuring at the 95% percentile. Recommendations ----- --------- Please see follow up MFM documentation from today's encounter. Patient is scheduled for weekly bowel evaluation. Patient is scheduled in four weeks for follow up growth. Subsequent follow up or other follow up as clinically determined by primary OB provider unless otherwise specified by MFM. Results forwarded to ordering provider so they can follow up with the patient as necessary. Procedure Note Chrissie Bullock MD - 09/29/2024 NAME: JEREMY BORDEN : 1995 SEX: F Accession Number: [id number] ORDERING PHYSICIAN: CHRISSIE BULLOCK REFERRING PHYSICIAN: MAGAN TRISTAN Coding ----- --------- Procedures 71616: Follow-up Ultrasound, per fetus [address]: Doppler velocimetry, ; middle cerebral artery Indication ----- --------- Abnormal finding on screening of mother-MOB + FOB CF carriers,Depression, Anxiety , Supervision of high risk , recent trauma to abdomen , prominent bowel , cysticfibrosis History ----- --------- OB History 1. Para 0 [id number] Current ----- --------- Cell free DNA low risk analysis Maternal Assessment ----- --------- Physical Exam Height 163 cm, 5 ft 4 in. Initial weight 86 kg, 190 lb.Initial BMI 32.61 kg/m Method ----- --------- Transabdominal ultrasound examination ----- --------- Dupont . Number of fetuses: 1 Dating ----- --------- LMP on: 03/07/2024 GA by LMP 29 w + 3 d DOMINIQUE by LMP: 12/12/2024 Previous Ultrasound on: 04/27/2024 Type of prior assessment: GA GA at prior assessment date 7 w + 2 d GA by previous U/S 29 w + 3 d DOMINIQUE by previous Ultrasound: 12/12/2024 Ultrasound examination on: 09/29/2024 GA by U/S based upon: AC, BPD, Femur, HC GA by U/S 29 w + 3 d DOMINIQUE by U/S: 12/12/2024 Assigned: based on the LMP, selected on 07/28/2024 Assigned GA 29 w + 3 d Assigned DOMINIQUE: 12/12/2024 General Evaluation ----- --------- Cardiac activity Present. FHR 134 bpm. Presentation: cephalic Placenta: Placental site: anterior, away from cervical os Umbilical cord: Cord vessels: 3 vessel cord. Insertion site: documentedpreviously Amniotic fluid: Amount of AF: normal amount. MVP 5.6 cm Biometry ----- --------- Standard BPD 70.6 mm 28w 2d 11% Hadlock OFD 98.1 mm 31w 5d 95% Dank HC 269.8 mm 29w 3d 17% Hadlock Cerebellum tr 37.2 mm 30w 4d 83% Chevy AC 256.2 mm 29w 6d 55% Hadlock Femur 57.8 mm 30w 2d 59% Hadlock Humerus 47.6 mm 28w 0d 12% Dank HC / AC 1.05 EFW 1,456 g 50% Hadlock EFW (lb) 3 lb EFW (oz) 3 oz EFW by: Julianalock ([id number]) Extended Tibia 47.0 mm 28w 4d 22% Dank Med Spec 4.2 mm CM 7.4 mm 65% Nicolaides Head / Face / Neck Cephalic index 0.72 2% Nicolaides Extremities / Bony Struc FL / BPD 0.82 FL / HC 0.21 FL / AC 0.23 Other Structures FHR 134 bpm Anatomy ----- --------- The following structures appear normal: Head/Neck: Cranium. Lateral ventricles. Cavum septi pellucidi. Cerebellum.Cisterna magna. Heart/Thorax: 4-chamber view. Cardiac position. Cardiac axis. Cardiacsize. Cardiac rhythm. Diaphragm. Abdomen: Stomach. Kidneys. Bladder. Doppler ----- --------- Mid Cerebral Artery: normal PI 2.39 70% Ebbing RI 0.89 91% Page PS 54.40 cm/s PS 1.38 MoM ED 5.91 cm/s TAmax 23.42 cm/s 95% Ebbing Maternal Structures ----- --------- Uterus Visualized Cervix Suboptimal Approach - Transabdominal Right Ovary Not visualized Left Ovary Not visualized Cul de Sac Suboptimal Impression ----- --------- Single viable intrauterine with appropriate interval growth. EFWmeasures at the 50%, AC measures at the 55%. Amniotic fluid MVP measures 5.6 cm. MCA PSV is in the unremarkable range for the evaluation of anemia. No sonographic evidence of placental abruption visualized at this time. bowel appears prominent measuring at the 95% percentile. Recommendations ----- --------- Please see follow up MFM documentation from today's encounter. Patient is scheduled for weekly bowel evaluation. Patient is scheduled in four weeks for follow up growth. Subsequent follow up or other follow up as clinically determined byprimary OB provider unless otherwise specified by MFM. Results forwarded to ordering provider so they can follow up with thepatient as necessary. us Chrissie Bullock MD IMG US ORDERABLES Final Re sult documented in this encounter Visit Diagnoses Diagnosis Cystic fibrosis carrier Abnormal genetic test during documented in this encounter Additional Health Concerns Assessment Noted Time PHQ-9 Depression Total Score: 0 10/27/19 10:25 AM EDT A Body Mass Index follow-up plan has been documented for the patient 08/10/2023 10:14 AM EDT documented as of this encounter Care Teams Jig And Fixture Maker Relationship Specialty Start Date End Date Armen Sánchez, DO [address] [facility], [place] [address] PCP - General Family Medicine 08/25/23 documented as of this encounter
--- OUTSIDE RECORDS SUMMARY | 2024-09-29 16:25 | XMS_ITS | Encounter Summary ---
Author Organization [facility] tem Address [id number] [address] [place] [address] Care Team Providers Care Flat Sorting Machine Clerk Name Role Phone SepidehArmen tristan Cedric [place] Primary Care Provider [phone] Reason for Visit * Reason Comments ADD ON DILATED BOWEL Encounter Details Date Type Department Care Team (Latest Contact Info) Description 09/29/2024 4:25 PM EDT Office Visit Maternal- Medicine at [facility] [address] [place] [id number] Chrissie Bullock MD [address] [address] 29 weeks gestation of (Primary Dx); Cystic fibrosis carrier; Maternal care for other (suspected) abnormality and damage, gastrointestinal anomalies, not applicable or unspecified Social History Tobacco Use Types Packs/Day Years Used Date Smoking Tobacco: Every Day Cigarettes 1 13.2 Started: 08/01/2011 Smokeless Tobacco: Never Alcohol Use Standard Drinks/Week Comments Not Currently 0 (1 standard drink = 0.6 oz pur e alcohol) [facility] Utilities Answer Date Recorded In the past 12 months has [employer], gas, oil, or water company threatened to [...] often do you attend chur ch or roman catholic services? Never 01/27/2024 Do you belong to [...] Answer Date Recorded Total Score 0 10/27/2023 [facility] [place] of Occupat ional Health - Occupational Stress [...] Recorded Do you need help finding a [facility] career center and/or a [...] Sign Reading Time Taken Comments Blood Pressure 125/72 09/29/2024 4:29 PM EDT Pulse 83 09/29/2024 4:29 PM EDT Temperature - - Respiratory Rate - - Oxygen Saturation - - Inhaled Oxygen Concentration - - Weight - - Height - - Body Mass Index - - documented in this encounter Patient Instructions * Attachments The following attachments cannot be sent through Care Everywhere. * Your baby's movement before (Lao) documented in this encounter Progress Notes * Jocy Maradiaga LPN - 09/29/2024 4:25 PM EDT Headache/epigastric pain/blurry vision/swelling? Cramping/contractions? Spotting or vaginal bleeding? Loss or gush of fluid like your water may have broken? Recent ER visits or hospitalizations? Any concerns that you would like me to mention to the provider today? * Jcoy Maradiaga LPN - 09/29/2024 4:25 PM EDT Headache/epigastric pain/blurry vision/swelling? No Cramping/contractions? No Spotting or vaginal bleeding? Yes, spoke with Maurizio about it today Loss or gush of fluid like your water may have broken? No Recent ER visits or hospitalizations? Yes, for bleeding, talked to maurizio about it today Any concerns that you would like me to mention to the provider today? No * Chrissie Bullock MD - 09/29/2024 4:25 PM EDT REASON FOR OFFICE VISIT: add on prominent bowel HISTORY OF PRESENT ILLNESS: Sapna Serrano is a pleasant 29 y.o. G 1 P0. at 20w3d due on Estimated Date of Delivery: 12/12/24 . Patient was seen today due to the following Add on for prominent bowel cystic fibrosis. She underwent amniocentesis which indicated two CF causing variants ([id number]). Prominent bowel seen today Recent episode of vaginal bleeding following abdominal hit at work on 09/10. She was evaluated by herlocal OB. She is currently stable. She is Rh positive. I do not appreciate placental abruption on US today at our office. Limitations of sonogram reviewed. MCA Doppler normal for the evaluation of anemia. She has been undergoing for surveillance with her primary OB No bleeding and no contractions. Her abdomen is soft and nontender. Currently the patient has no complaints. The patient denies nausea, vomiting, abdominal pain, vaginal bleeding, SOB or chest pain. Reports good movement Patient's PMH/PSH,SH,PSYCH Hx, MEDs, ALLERGIES, and ROS [...] DIAGNOSTIC / SCREENING N/A 09/03/2023 Performed by Scotty Mahoney DO at [facility] ALLERGIES: Allergies Allergen Reactions Penicillins Other (See Comments) Yeast infections CURRENT MEDICATIONS: Current Outpatient Medications: magnesium oxide (MAGOX) 400 mg tablet, Take 1 tablet (400 mg total) by mouth in the morning., Disp:, Rfl: PNV 19/iron ps,heme/folic/dha ( MV & MIN ORAL), Take 1 tablet by mouth in the morning.,Disp: , Rfl: polyethylene glycol (GLYCOLAX) 17 gram packet, Take 17 g by mouth in the morning., Disp: , Rfl: FLUoxetine (PROzac) 20 mg capsule, Take 1 capsule (20 mg total) by mouth in the morning. (Patient not taking: Reported on 09/29/2024), Disp: 30 capsule, Rfl: 3 venlafaxine XR (EFFEXOR XR) 37.5 mg 24 hr capsule, Take 1 capsule (37.5 mg total) by mouth in the morning., Disp: , Rfl: FAMILY/GENETIC HISTORY: No family history of VTE, cardiac defects and mental retardation . RECENT HOSPITALIZATION: none I did review all the labs results available in addition to labs which were ordered by the primary care physician, and the other consultants, we search on GEOCOMtms and all the available care everywhere epic I did review all the imaging studies of the patient available on EMR, ordered by the primary care physician and the other healthcare risk control consultant HABITS: Patient activity no restrictions, diet no restrictions REVIEW OF SYSTEM: Head and Neck: Negative for any dizziness and headaches. Cardiovascular and Respiratory System: Denies any chest pain, shortness of breath, and coughing. Abdominal and System: Denies any abdominal pain, nausea, vomiting, vaginal bleeding, and vaginal discharge PHYSICAL EXAMINATION: BP 125/72 (BP Site: Right Arm, BP Postition: Sitting) Pulse 83 LMP 03/07/2024 Comment: test negative 09/03/23 at 1242 . Gravid abdomen, Respirations not labored. Well oriented time place person, normal gait [facility] US Impression Single viable intrauterine with appropriate interval growth. EFW measures at the 50%, AC measures at the 55%. Amniotic fluid MVP measures 5.6 cm. MCA PSV is in the unremarkable range for the evaluation of anemia. No sonographic evidence of placental abruption visualized at this time. bowel appears prominent measuring at the 95% percentile. MEDICAL DECISION MAKING DISCUSSION: Findings reviewed with the patient. Prominent bowel today and there is a risk of meconium ileus as the fetus has a cystic fibrosis. She is undecided about MAURO modulator therapy Weekly bowel evaluation through [facility] recommended. On ultrasound today no sonographic evidence of abruption. She is currently not bleeding. Her abdomen is soft and nontender. MCA Doppler normal no evidence of anemia. She has been undergoing surveillance with her local OB. I instructed the patient that if she has any OB concerns or vaginal bleeding to present to her nearest hospital for evaluation She should continue to have twice weekly nonstress tests through her primary OB office. RECOMMENDATION: - twice weekly NSTs through primary OB office - Weekly bowel evaluation and DVP through [facility] for now - repeat growth ultrasound in 4 weeks with [facility] - the patient to be presented to our multidisciplinary meeting with the NICU - the patient has seen a cystic fibrosis specialist - location of delivery to be further addressed. -timing of delivery to be further addressed pending clinical course DISPOSITION: At this point the patient is in complete care of her steam shovel operating engineer. Patient does have ultrasound scheduled with us. Thank you for allowing me to participate in Sapna Bryantjorge . If there any questions please do not hesitate to contact us. Sincerely, CHRISSIE BULLOCK MD documented in this encounter Plan of Treatment Upcoming Encounters Date Type Department Care Team (Late st Contact Info) Description 10/12/2024 3:15 PM EDT Appointment [facility] - [facility] US Imaging [address] [facility] [place] [address] 10/19/2024 2:00 PM EDT [facility] [address] [address] Rain Bond DO [address] [facility] [address] [address] 10/19/2024 3:30 PM EDT Appointment [facility] - [facility] US Imaging [address] [place] [address] 10/30/2024 11:00 AM EDT Appointment [facility] - [facility] US Imaging [address] [place] [address] 10/30/2024 11:30 AM EDT Office Visit Maternal- Medicine at [facility] [address] [place] [address] Angela Perez MD [address] [facility] [place] [address] documented as of this encounter Visit Diagnoses Diagnosis 29 weeks gestation of - Primary Cystic fibrosis carrier Maternal care for other (suspected) abnormality and damage, gastrointestinal anomalies, not applicable or unspecified documented in this encounter Additional Health Concerns Assessment Noted Time PHQ-9 Depression Total Score: 0 10/27/19 10:25 AM EDT A Body Mass Index follow-up plan has been documented for the patient 08/10/2023 10:14 AM EDT documented as of this encounter Care Teams Flat Sorting Machine Clerk Relationship Specialty Start Date End Date Armen Sánchez DO [address], [place] [address] PCP - General Family Medicine 08/25/23 documented as of this encounter
--- OUTSIDE RECORDS SUMMARY | 2024-10-03 08:40 | XMS_ITS | Encounter Summary ---
Author Organization [facility] Address [address] [place] [address] Care Team Providers Care Mock Up Assembler Name Role Phone Armen Sánchez MD Primary Care Provider Reason for Visit * Reason Comments Routine Visit Encounter Details Date Type Department Care Team (Latest Contact Info) Description 10/03/2024 8:40 AM EDT Routine [facility] [address] [place] [address] Curtis Paez [address] [facility] [address] [place], [place] [id number] Third trimester ([facility]); Cystic fibrosis carrier, antepartum ([facility]); Moderate episode of recurrent major depressive disorder (HCC); History of loop electrosurgical excision procedure (LEEP) of cervix affecting , antepartum ([facility]); HSV infection; 30 weeks gestation of ([facility]); Maternal care for other (suspected) abnormality and damage, gastrointestinal anomalies, not applicable or unspecified ([facility]) Social History Tobacco Use Types Packs/Day Years [...] Sign Reading Time Taken Comments Blood Pressure 122/74 10/03/2024 9:00 AM EDT Pulse - - Temperature - - Respiratory Rate - - Oxygen Saturation - - Inhaled Oxygen Concentration - - Weight 92.1 kg (203 lb) 10/03/2024 9:00 AM EDT Height 162.6 cm (5' 4 ) 10/03/2024 9:04 AM EDT Body Mass Index 34.84 10/03/2024 9:00 AM EDT documented in this encounter Progress Notes * Laura Godwin, UMBERTO - 10/03/2024 8:40 AM EDT Reason for Appointment: Patient ID: Sapna Serrano is a 29 y.o. female who presents for Routine Visit Patient presents today for Return OB appointment. MEDICATIONS Current Outpatient Medications Medication Instructions polyethylene glycol (PEG) 3350 (GLYCOLAX) 17 g, Once MV-Min-Fe Fum-FA-DHA ( 1 PO) 1 each, Daily venlafaxine XR (EFFEXOR XR) 37.5 mg, Oral, Daily, Do not crush or chew. ALLERGIES Allergies Allergen Reactions Penicillins Hives and Itching Yeast infections Penicillin G Rash PROBLEMS Active Ambulatory Problems Diagnosis Date Noted Moderate episode of recurrent major depressive disorder (HCC) 10/25/2023 ALICIA (generalized anxiety disorder) 10/25/2023 Cystic fibrosis carrier, antepartum ([facility]) 06/12/2024 Placental abnormality in third trimester ([facility]) 09/21/2024 History of loop electrosurgical excision procedure (LEEP) of cervix affecting , antepartum([facility]) 09/21/2024 Third trimester ([facility]) 10/03/2024 29 weeks gestation of ([facility]) 10/03/2024 HSV infection 10/03/2024 Resolved Ambulatory Problems Diagnosis Date Noted No [...] nursing note reviewed. Exam conducted with a barber apprentice present. Vitals: Estimated body mass index is 34.84 kg/m?? as calculated from the following: Height as of this encounter: 5' 4 . Weight as of this encounter: 203 lb. BP: 122/74 Patient's last menstrual period was 03/07/2024. ASSESSMENT & PLAN ICD-10-CM 1. Third trimester ([facility]) Z34.93 POCT urinalysis dipstick manually resulted 2. Cystic fibrosis carrier, antepartum ([facility]) O09.899 Z14.1 3. Moderate episode of recurrent major depressive disorder (HCC) F33.1 4. History of loop electrosurgical excision procedure (LEEP) of cervix affecting , antepartum ([facility]) O34.40 Z98.890 5. HSV infection B00.9 6. 30 weeks gestation of ([facility]) Z3A.30 Return OB: Patient presents today for a routine obstetrics appointment. Patient is currently 30w0d . Patient states she is doing well but has complaints of being tired due to current . Patient has verbalizes frequent movement. labor precautions was discussed/given and patient was instructed to perform kick counts three times a day. Pt seeing MFM weekly for bowel evaluation and DVP. Pt will be delivered in [place] or [place]. Pt to be a complete transfer of care at 32weeks. Orders Placed This Encounter Procedures POCT urinalysis dipstick manually resulted Follow Up: Patient is to return to office in 2 week for routine OB appointment. Documented by Laura Godwin LPN on behalf of: Curtis Paez DO documented in this encounter Plan of Treatment Upcoming Encounters Date Type Department Care Team (Late st Contact Info) Description 10/17/2024 2:20 PM EDT Routine [facility] [address] [place] [id number] Jocy Ruby PA [address] [facility] [place] [address] Scheduled Orders Name Type Priority Associated Diagnoses Orde r Schedule US biophysical profile w non stress test Imaging Routine Cystic fibrosis carrier, antepartum ([facility]) Maternal care for other (suspected) abnormality and damage, gastrointestinal anomalies, not applicable or unspecified ([facility]) Expected: 10/03/2024 (Approximate), Expires: 04/05/2025 documented as of this encounter Procedures Procedure Name Priority Date/Time Associated Diagnosis Comments POCT URINALYSIS DIPSTICK Routine 10/03/2024 9:04 AM EDT Third trimester ([facility]) documented in this encounter Results * (ABNORMAL) POCT urinalysis dipstick manually resulted (10/03/2024 9:04 AM EDT) Color, UA Yellow Clarity, UA Clear Glucose, UA Negative Negative - 2000(110) ++++ mg/dL Bilirubin, UA Negative Negative - 4(70) +++ mg/dL Ketones, UA Negative Negative - 160(16) ++++ mg/dL Spec Grav, UA 1.020 1 - 1.03 Blood, UA Negative Negative - 50 Koby/mcL pH, UA 7.5 5 - 9 Protein, UA Trace Negative - 2000(20) ++++ mg/dL Urobilinogen, UA 0.2 0.2 - 12 mg/dL Leukocytes, UA Negative Negative - 500+++ Danny/mcL Nitrite, UA Negative Negative - Positive Urine 10/03/2024 9:04 AM EDT Curtis Paez DO POINT OF CARE TEST ENTER/EDIT OR DERABLES Final Result documented in this encounter Visit Diagnoses Diagnosis Third trimester ([facility]) state, incidental Cystic fibrosis carrier, antepartum ([facility]) Moderate episode of recurrent major depressive disorder ([facility]) History of loop electrosurgical excision procedure (LEEP) of cervix affecting , antepartum ([facility]) 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 30 weeks gestation of ([facility]) Maternal care for other (suspected) abnormality and damage, gastrointestinal anomalies, not applicable or unspecified ([facility]) documented in this encounter Care Teams Mock Up Assembler Relationship Specialty Start Date End Date Armen Sánchez MD PCP - General Family Medicine 05/05/24 documented as of this encounter
--- OUTSIDE RECORDS SUMMARY | 2024-10-05 15:13 | XMS_ITS ---
Author Organization [employer] Name Relationship Address Phone DENISE LANDEROS Mother [address] [place] [address] Unavailable TIGREDENISE LUTZ Mother [address] [place] [address] Unavailable TIGREDENISE LUTZ Mother [address] [place] [address] Unavailable TIGREDENISE LUTZ Mother [address] [place] [address] Unavailable TIGREDENISE LUTZ Mother [address] [place] [address] Unavailable TIGREDENISE LUTZ Mother [address] [place] [address] Unavailable TIGREDENISE LUTZ Mother [address] [place] [address] Unavailable TIGREDENISE LUTZ Mother [address] [place] [address] Unavailable TIGREDENISE LUTZ Mother [address] [place] [address] Un[place] [address] [phone] DENISE LANDEROS Mother [address] [place] [address] Unavailable TIGREDENISE LUTZ Mother [address] [place] [address] Un[place] [address] [phone] DENISE LANDEROS Mother [address] [place] [address] Unavailable TIGREDENISE LUTZ Mother [address] [place] [address] Unavailable Care Team Providers Care Ground Defence Officer Name Role Phone MINH PUENTES Admitting Unavailable MINH PUENTES Attending Unavailable MORTEZA STRE[address] Primary Care Unavailable TERRY VALLEJO Attending Unavailable [address]ORTE[address] Primary Care Unavailable MORTE[address] Primary Care Unavailable MORTEZA STRE[address] Attending Unavailable MORTEZA STRE[address] Referring Unavailable FURLONG, MORTEZA G Primary Care Unavailable FURLONG, MORTEZA G Attending Unavailable FURLONG, MORTEZA G Referring Unavailable FURLONG, MORTEZA G Primary Care Unavailable KUN, MAGAN R Referring Unavailable FURLONG, MORTEZA G Primary Care Unavailable KUN, MAGAN R Referring Unavailable FURLONG, MORTEZA G Primary Care Unavailable LYNDSEY BURNS Attending Unavailable KUN, MAGAN R Referring Unavailable FURLONG, MORTEZA G Primary Care Unavailable LYNDSEY BURNS Referring Unavailable FURLONG, MORTEZA G Primary Care Unavailable KUN, MAGAN R Referring Unavailable FURLONG, MORTEZA G Primary Care Unavailable CELENA ALVAREZ Attending Unavailable FURLONG, MORTEZA G Referring Unavailable FURLONG, MORTEZA G Primary Care Unavailable KATY, LYNDSEY Attending Unavailable KUN, MAGAN R Referring Unavailable FURLONG, MORTEZA G Primary Care Unavailable CHRISSIE SNOW Attending Unavailable KUN, MAGAN R Referring Unavailable FURLONG, MORTEZA G Primary Care Unavailable KUN, MAGAN R Referring Unavailable FURLONG, MORTEZA G Primary Care Unavailable Purpose PROBLEMS DATE TYPE CONDITION / CODE ATTENDING STATUS [facility] 10/05/2024 Unknown Supervision of [facility] risk , unspecified, unspecified trimester / O09.90(ICD-10) [facility] 10/05/2024 Unknown Obesity complicating , unspecified trimester / O99.210(ICD-10) [facility] 09/10/2024 Admitting diagnosis Unspecified injury of abdomen, initial encounter / S39.91XA(ICD-10) MINH PUENTES [facility] 09/07/2024 Unknown Counseling, unspecified / Z71.9(ICD-10) CELENA ALVAREZ [facility] 06/16/2024 Unknown Cystic fibrosis carrier / Z14.1(ICD-10) LYNDSEY BURNS [facility] 07/28/2024 Unknown Cystic Fibrosis Carrier / UNK(Unknown) KATY [facility] 06/20/2024 Unknown Abnormal chromosomal and genetic finding on screening of mother / O28.5(ICD-10) [facility] 06/20/2024 Unknown Encounter for ot her specified screening / Z36.89(ICD-10) NA [facility] 04/27/2024 Unknown Unspecified abdominal pain / R10.9(ICD-10) TERRY VALLEJO [facility] 04/27/2024 Unknown Contusion of rig ht upper arm, initial encounter / S40.021A(ICD-10) GENEVIEVE TERRY [facility] 01/27/2024 Unknown Overweight / E66.3(ICD-10) [place] [facility] 10/27/2023 Unknown Major depressive disorder, single episode, unspecified / F32.9(ICD-10) [facility] 01/27/2024 Unknown Follow-up / FREETEXT(AOF) [place] [facility] 10/27/2023 Unknown Anxiety disorder , unspecified / F41.9(ICD-10) [facility] 10/27/2023 Unknown Depression, unspecified / F32.A(ICD-10) [place] [facility] 10/27/2023 Unknown Weight Check / FREETEXT(AOF) [place] [facility] PROCEDURES No Procedure Records Found VITAL SIGNS No Vital Signs Records Found RESULTS US OB 1 OR MORE FETUS LIMITED Observed: 09/11/2024 2:05 AM Status: F [facility] EXAMINATION: TRIMESTER OBSTETRIC ULTRASOUND 09/10/2024 TECHNIQUE: ULTRASOUND [...] by: Eldon Maldonado MD 09/11/24 Final result SEND OUT TEST Collected: 11:05 AM Status: C Source: [facility] TYPE CODE TESTS RESULT OUT OF RANGE REFERENCE UNITS LAB SO(LOINC) TEST NAME: KNOWN MUTATION ANALYSIS CFTR GENE LAB SPCMN(LOINC) SPECIMEN 3 MATERNAL AMNIOTIC FLUID 2 EDTA AND 1 SODIUM HEP MATERNAL LAB SENTO(LOINC) SENT TO [facility] VIA [employer] [id number] Result Comment: Corrected on 07/28 AT 1418: Previously reported as [facility] [employer] [id number] LAB RESULT(LOINC) TEST RESULT See separate report. View in OnBase or in EPIC. SEND OUT TEST Collected: 11:05 AM Status: C Source: [facility] TYPE CODE TESTS RESULT OUT OF RANGE REFERENCE UNITS LAB SO(LOINC) TEST NAME: MATERNAL CELL CONTAMINATION LAB SPCMN(LOINC) SPECIMEN 3 MATERNAL AMNIOTIC FLUID 2 EDTA AND 1 SODIUM HEP MATERNAL LAB SENTO(LOINC) SENT TO [facility] VIA FEDEX [id number] Result Comment: Corrected on 07/28 AT 1418: Previously reported as [facility] [employer] [id number] LAB RESULT(LOINC) TEST RESULT See separate report. View in OnBase or in EPIC. US OB LESS THAN 14 WEEKS SINGLE OR FIRST GESTATION W DOPPLER Observed: 04/27/2024 8:24 PM Status: F [facility] EXAMINATION: FIRST TRIMESTER OBSTETRIC ULTRASOUND 04/27/2024 TECHNIQUE: [...] by: Onur Mack MD 04/27/24 Final result CBC WITH DIFF Collected: 04/27/2024 6:40 PM Status: F Source: [facility] TYPE CODE TESTS RESULT OUT OF RANGE REFERENCE UNITS LAB WBC(LOINC) WBC Count 11.6 High 3.5-11.3 k/uL LAB RBC(LOINC) RBC Count 4.65 3.95-5.11 m/uL LAB HGB(LOINC) Hemoglobin 14.0 11.9-15.1 g/dL LAB HCT(LOINC) Hematocrit 41.1 36.3-47.1 % LAB MCV(LOINC) MCV 88.4 82.6-102.9 fL LAB MCH(LOINC) MCH 30.1 25.2-33.5 pg LAB MCHC(LOINC) MCHC 34.1 28.4-34.8 g/dL LAB RDW(LOINC) RDW 12.7 11.8-14.4 % LAB PLT(LOINC) Platelet Count 327 138-453 k/uL LAB MPVX(LOINC) MPV 9.4 8.1-13.5 fL LAB NRBCS(LOINC) NRBC Automated 0.0 0.0 per 100 WBC LAB SEG(LOINC) Neutrophil (Seg) 69 High 36-65 % LAB LYM(LOINC) Lymphocyte 20 Low 24-43 % LAB MON(LOINC) Monocyte 8 3-12 % LAB EO(LOINC) Eosinophil 2 1-4 % LAB BASO(LOINC) Basophil 1 0-2 % LAB IGRAN(LOINC) Immature Granulocyte 0 0 % LAB ASEG(LOINC) Abs.Neutrophil (Seg) 8.09 1.50-8.10 k/uL LAB ALYM(LOINC) Abs. Lymph 2.31 1.10-3.70 k/uL LAB AMONO(LOINC) Abs. Monocyte 0.90 0.10-1.20 k/u L LAB AEO(LOINC) Abs. Eosinophil 0.17 0.00-0.44 k/u L LAB ABASO(LOINC) Abs. Basophil 0.09 0.00-0.20 k/u L LAB AIGRAN(LOINC) Abs.Imm.Granulo cyte 0.04 0.00-0.30 k/uL Performed By: #### BMP, CDP #### [facility] [address] [place] [address] Block Placer: Gal Katz MD BASIC METABOLIC PROF Collected: 025 6:40 PM Status: F Source[facility] TYPE CODE TESTS RESULT OUT OF RANGE REFERENCE UNITS LAB NA(LOINC) NA (Sodium) 137 136-145 mmol/L LAB K(LOINC) K (Potassium) 3.8 3.7-5.3 mmol/L LAB CL(LOINC) Chloride 102 98-107 mmol/L LAB HCO(LOINC) CO2 23 20-31 mmol/L LAB GAP(LOINC) Anion Gap 12 9-16 mmol/L LAB GLU(LOINC) Glucose 66 Low 74-99 mg/dL LAB BUN(LOINC) BUN (Urea N) 9 6-20 mg/dL LAB CRE(LOINC) Creatinine 0.5 0.50-0.90 mg/dL LAB EGFR(LOINC) eGFR >90 >60 mL/min/1. 73m2 Result Comment: These results are not intended [...] following therapy that affects renal tubular secretion. LAB BUNCRE(LOINC) BUN/CRE Ratio 18 9-20 LAB CA(LOINC) Calcium 9.1 8.6-10.4 mg/dL Performed By: #### BMP, CDP #### [address] [place] [address] Block Placer: Gal Katz MD TYPE + SCREEN Observed: 04/27/2024 6:40 PM Status: F [facility] Sample Expiration 5,2359 Arm Band Number [id number] ABO/Rh(D) A POSITIVE Antibody Screen NEGATIVE Performed By: #### TYS #### [address] [place], [place] [address] Block Placer: Gal Katz MD HCG, QUANT Collected: 6:40 PM Status: F Source: [facility] TYPE CODE TESTS RESULT OUT OF RANGE REFERENCE UNITS LAB BHCG([facility]) HCG, Quant 14227.0 High 0-7 mIU/mL Result Comment: Non-preg premeno <=5 Postmeno <=8 Male <=3 If HCG results do not concur with clinical observations, additional testing to confirm results is recommended. Performed By: #### BHCG #### [address] [place] [address] Block Placer: Gal Katz MD URINALYSIS W/ MICRO Collected: 04/27/19 6:00 PM Status: F Source: [facility] TYPE CODE TESTS RESULT OUT OF RANGE REFERENCE UNITS LAB UCO(LOINC) Color Yellow YEL LAB UTU(LOINC) Clarity, Urine SLIGHTLY CLOUDY Abnormal CLEAR LAB UGL(LOINC) Glucose,Semi-q nt,Ur NEGATIVE NEG mg/dL LAB UBI(LOINC) Bilirubin, SemiQt,Ur NEGATIVE NEG LAB UKE(LOINC) Ketones, Urine NEGATIVE NEG mg/dL LAB USG(LOINC) Spec. [place],Ur 1.025 High 1.010-1.020 LAB UHB(LOINC) Blood, Urine 1+ Abnormal NEG LAB UPH(LOINC) PH,Ur 6.0 5.0-9.0 LAB UPR(LOINC) Protein, Semi-qnt,Ur NEGATIVE NEG mg/dL LAB UUR(LOINC) Urobilinogen,U r Normal 0.0-1.0 EU/dL LAB UNI(LOINC) Nitrite,Ur NEGATIVE NEG LAB ULE(LOINC) Leukocyte Esterase NEGATIVE NEG LAB UWBC(LOINC) Urine WBC's 2 TO 5 0-5 /HPF LAB URBC(LOINC) Urine RBC's 2 TO 5 0-2 /HPF LAB EPITH(LOINC) Epithelial cells 20 TO 50 0-25 /HPF LAB BACT(LOINC) Bacteria 1+ Abnormal NONE Performed By: #### UAMIC ### # [facility] [address] [place] [address] Block Placer: Gal Katz MD ALLERGIES DATE TYPE / CODE NAME / CODE REACTION SEVERITY SOURCE 08/10/2023 Drug Class~NON-CBORD /[id number](SN ED CT) PENICILLINS Other ( See Comments) [facility] ENCOUNTERS ADMIT/DISCHARGE ACCOUNT NUMBER ADMITTING ENCOUNTER CLASS LOCATION SOURCE 10/05/2024/10/06/19 [id number] Ambulatory Building:PT H_[facility] 09/29/2024/09/30/19 [id number] Ambulatory Buildin 94 [facility] 09/29/2024/09/30/19 [id number] Ambulatory Building:PT H_[facility] 09/10/2024/09/12/19 [id number] MINH PUENTES Ambulatory Building:TO BRoom: 0200Bed: 01 [facility] 09/10/2024 [id number] Emergency Building:TE D [facility] 09/07/2024/09/08/19 [id number] Ambulatory Building:PT H_HMTCF [facility] 08/25/2024/08/26/19 [id number] Ambulatory Buildin 410 [facility] 07/28/2024/07/29/19 [id number] Ambulatory Building:PT H_PML [facility] 07/28/2024/07/29/19 25 [id number] Ambulatory Buildin 94 [facility] 07/28/2024/07/29/19 [id number] Ambulatory Building:PT H_MFMUS [facility] 06/20/2024/06/21/19 [id number] Ambulatory Buildin 94 [facility] 04/27/2024/04/27/19 [id number] Emergency Building:TE DRoom: 08Bed: 08 [facility] 01/27/2024/01/27/20 [id number] Ambulatory Buildin 391 [facility] 10/27/2023/10/27/19 [id number] Ambulatory Buildin 391 [facility] FUNCTIONAL STATUS No Functional Status Records Found EQUIPMENT No Equipment Records Found PAYERS ENCOUNTER GUARANTOR PAYER SUBSCRIBER SOURCE [facility]/05/20[facility] [address] [place] [address]Byg: () Primary Insurance[place] [place] Number: [id number] Date:2023-06-04 [facility] [id number] [address] [place], [place] [address]Rwj: () [facility] 09/29/2024 [facility] [place] [address]Pbu: () Primary Insurance:[facility] [place] Number: [id number] Date:2023-06-04 [facility]: [id number] [address] [place], [place] [address]Jlk: () [facility] 09/29/2024 [facility] [address] [place] [address]Kss: () Primary Insurance:[facility] [place] 7MEDPolicy Number: [id number] Date:2023-06-04 MICHI LUNADOB: [id number] [address] [place] [address]Ztn: (WP) [facility] 09/10/2024 MICHI LUNADOB: [address], [place] [address]Kja: (HP) (WP) Primary Insurance:UMRPolicy Number: [id number] Date:2017-04-05 MICHI LUNADOB: [id number] [address], [place] [address]Azn: (HP) [facility] 09/10/2024 MICHI LUNADOB: [address], [place] [address]Bqh: (HP) (WP) Primary Insurance:UMRPolicy Number: [id number] Date:2017-04-05 MICHI LUNADOB: [id number] [address] [place], [place] [address]Ano: (HP) [facility] 09/07/2024 MICHI LUNADOB: [address] [place], [place] [address]Tqt: (HP) Primary Insurance:[facility] SUPERMEDPolicy Number: [id number] Date:2023-06-04 MICHI LUNADOB: [id number] [address] [place], [place] [address]Mxi: (WP) [facility] 08/25/2024 MICHI LUNADOB: [address] [place] [address]Rrj: (HP) Primary Insurance:[facility] [place] Number: [id number] Date:2023-06-04 [facility] [id number] [address], [place] [address]Opr: () [facility] 07/28/2024 [facility]: [address] [address]Ond: (HP) Primary Insurance:[facility] [place]PER[place]Policy Number: [id number] Date:2023-06-04 [facility]: [id number] [address] [address]Cst: (HP) (WP) [facility] 07/28/2024 [facility] [address] [place], [place] [address]Tzy: (HP) Primary Insurance:[facility] [place] Number: [id number] Date:2023-06-04 [facility]: [id number] [address] [place], [place] [address]Xqy: (HP) () [facility] 07/28/2024 [facility] [address] [place] [address]Sgi: (HP) Primary Insurance:[facility] [place]PER[place] Number: [id number] Date:2023-06-04 [facility]: [id number] [address] [place] [address]Oon: (HP) (WP) [facility] 06/20/2024 MICHI GARY BRIEDOB: [address] [place] [address]Cjr: (HP) Primary Insurance:[facility] [place]PERMEDPolicy Number: [id number] Date:2023-06-04 [facility]: [id number] [address] [place], [place] [address]Pmb: (HP) (WP) [facility] 04/27/2024 [facility] [place], [place] [address]Hxd: (HP) (WP) Primary Insurance:[facility] Number: [id number] Date:[id number] [address]DQ: [facility]: [id number] [place], [place] [address]Bzj: (HP) [facility] 01/27/2024 [facility]: [address] [place], [place] [address]Ccd: (HP) Primary Insurance:[facility] [place]PER[place]Policy Number: [id number] Date:2023-06-04 [facility]: [id number] [address] [place], [place] [address]Yeo: (HP) (WP) [facility] 10/27/2023 MICHI GARY BRIEDOB: [address] [place] [address]Rus: (HP) Primary Insurance:[facility] SUPERMEDPolmercyone [facility] Number: [id number] Date:2023-06-04 MICHI MARQUEZTDOB: [id number] [address] [place] [address]Fxp: (HP) () [facility] SOCIAL HISTORY No Social History Records Found FAMILY HISTORY No Family History Records Found ADVANCE DIRECTIVES No Advanced Directives Records Found INFORMATION SOURCE DATE CREATED AUTHOR AUTHOR'S ERNESTO ATSOLOMON 10/10/2024 [facility]
--- OUTSIDE RECORDS SUMMARY | 2024-10-05 15:13 | XMS_ITS | Encounter Summary ---
Demographics Address [address] [place] [address] Mobile Phone Email Address Email Address Preferred Language Slovak Marital Status Single Voodoo Affiliation Unknown Race White Ethnic Group Not or Lati no Author Organization [facility] Address [id number] [address] [place] [address] Care Team Providers Care Smoke Control Supervisor Name Role Phone Armen Sánchez DO Primary Care Provider + [phone] Reason for Referral * Diagnostic Imaging (Routine) - Pending Review Specialty Diagnoses / Procedures Referred By Contac t Referred To Contact Maternal and Medicine Diagnoses Supervision of high risk , antepartum Obesity in , antepartum Procedures US MFM with or without consult Chrissie Bullock MD [address], [address] [place] [address] Phone: tel: fax: Maternal- Medicine at [facility] [address] [place] [address] Phone: tel: fax: Referral ID Status Reason Start Date Expiration Date V isits Requested Visits Authorized [id number] Pending Review 10/03/2024 10/03/2025 1 1 Reason for Visit * Diagnostic Imaging (Routine) - Pending Review Specialty Diagnoses / Procedures Referred By Contac t Referred To Contact Maternal and Medicine Diagnoses Supervision of high risk , antepartum Obesity in , antepartum Procedures US MFM with or without consult Chrissie Bullock MD [address], [address] [place] [address] Phone: tel: fax: Maternal- Medicine at [facility] [address] [place] [address] Phone: tel: fax: Referral ID Status Reason Start Date Expiration Date V isits Requested Visits Authorized [id number] Pending Review 10/03/2024 10/03/2025 1 1 Encounter Details Date Type Department Care Team (Latest Contact Info) Description 10/05/2024 3:13 PM EDT - 10/05/2024 11:59 PM EDT Hospital Encounter [facility] - [facility] US Imaging [address] [place] [phone] Supervision of high risk , antepartum; Obesity in , antepartum Discharge Disposition: Home Social History Tobacco Use Types Packs/Day Years Used Date Smoking Tobacco: Every Day Cigarettes 1 13.2 Started: 08/01/2011 Smokeless Tobacco: Never Alcohol Use Standard Drinks/Week Comments Not Currently 0 (1 standard drink = 0.6 oz pur e alcohol) [facility] Utilities Answer Date Recorded In the past 12 months has [employer], gas, oil, or water company threatened [...] often do you attend chur ch or uatsdin services? Never 01/27/2024 Do you belong to any clubs o r organizations such as amish groups, unions, fraternal or athletic groups, or [...] Answer Date Recorded Total Score 0 10/27/2023 [facility] of Occupat ional Health - Occupational Stress [...] Recorded Do you need help finding a [facility] career center and/or a training program? [...] Info) Description 10/12/2024 3:15 PM EDT Appointment [facility] US Imaging [address] [place] [address] 10/19/2024 2:00 PM EDT [facility] [address] [place] [address] Rain Bond, DO [address] [facility] [place] [address] [place] [address] 10/19/2024 3:30 PM EDT Appointment [facility] US Imaging [address] [place] [address] 10/30/2024 11:00 AM EDT Appointment [facility] US Imaging [address] [place] [phone] 10/30/2024 11:30 AM EDT Office Visit Maternal- Medicine at [facility] [address] [place] [address] Angela Perez MD [address] [place] [address] documented as of this encounter Procedures Procedure Name Priority Date/Time Associated Diagnosis Comments US MFM LMTD OB, 1 OR MORE FETUS Routine 10/05/2024 4:29 PM EDT Supervision of high risk , antepartum Obesity in , antepartum documented in this encounter Results * US MFM LMTD OB, 1 OR MORE FETUS (10/05/2024 4:29 PM EDT) Anatomical Region Laterality Modality OB-WIND TURBINE SERVICE TECHNICIAN Ultrasound 10/05/2024 4:06 PM EDT Narrative 10/05/2024 4:43 PM EDT NAME: JEREMY BORDEN : 1995 SEX: F Accession Number: [id number] ORDERING PHYSICIAN: CHRISSIE BULLOCK REFERRING PHYSICIAN: MAGAN TRISTAN Coding ----- --------- Procedures 76670: Limited OB / NAYE, 1 or More Fetuses Indication ----- --------- Abnormal finding on screening of mother-MOB + FOB CF carriers, Depression, Anxiety , Supervision of high risk , recent trauma to abdomen , prominent bowel , cystic fibrosis History ----- --------- OB History 1. Para 0 [id number] Current ----- --------- Cell free DNA low risk analysis Maternal Assessment ----- --------- Physical Exam Height 163 cm, 5 ft 4 in. Initial weight 86 kg, 190 lb. Initial BMI 32.61 kg/m Method ----- --------- Transabdominal ultrasound examination. View: Sufficient ----- --------- Dupont . Number of fetuses: 1 Dating ----- --------- LMP on: 03/07/2024 GA by LMP 30 w + 2 d DOMINIQUE by LMP: 12/12/2024 Previous Ultrasound on: 04/27/2024 Type of prior assessment: GA GA at prior assessment date 7 w + 2 d GA by previous U/S 30 w + 2 d DOMINIQUE by previous Ultrasound: 12/12/2024 Assigned: based on the LMP, selected on 07/28/2024 Assigned GA 30 w + 2 d Assigned DOMINIQUE: 12/12/2024 General Evaluation ----- --------- Cardiac activity Present. FHR 162 bpm. Presentation: breech Placenta: Placental site: anterior, away from cervical os Umbilical cord: Cord vessels: 3 vessel cord. Insertion site: documented previously Amniotic fluid: Amount of AF: normal amount. MVP 5.1 cm Maternal Structures ----- --------- Uterus Visualized Cervix Suboptimal Approach - Transabdominal Right Ovary Not visualized Left Ovary Not visualized Cul de Sac Suboptimal. No free fluid visualized Impression ----- --------- Single viable intrauterine . Amniotic fluid MVP measures 5.1 cm. Recommendations ----- --------- Patient is scheduled for weekly bowel evaluation. Patient is scheduled in three weeks for follow up growth. Subsequent follow up or other follow up as clinically determined by primary OB provider unless otherwise specified by M. Results forwarded to ordering provider so they can follow up with the patient as necessary. Procedure Note Aislinn Sanabria MD - 10/05/2024 NAME: JEREMY BORDEN : 1995 SEX: F Accession Number: [id number] ORDERING PHYSICIAN: CHRISSIE BULLOCK REFERRING PHYSICIAN: MAGAN TRISTAN Coding ----- --------- Procedures 44347: Limited OB / NAYE, 1 or More Fetuses Indication ----- --------- Abnormal finding on screening of mother-MOB + FOB CF carriers,Depression, Anxiety , Supervision of high risk , recent trauma to abdomen , prominent bowel , cysticfibrosis History ----- --------- OB History 1. Para 0 [id number] Current ----- --------- Cell free DNA low risk analysis Maternal Assessment ----- --------- Physical Exam Height 163 cm, 5 ft 4 in. Initial weight 86 kg, 190 lb.Initial BMI 32.61 kg/m Method ----- --------- Transabdominal ultrasound examination. View: Sufficient ----- --------- Dupont . Number of fetuses: 1 Dating ----- --------- LMP on: 03/07/2024 GA by LMP 30 w + 2 d DOMINIQUE by LMP: 12/12/2024 Previous Ultrasound on: 04/27/2024 Type of prior assessment: GA GA at prior assessment date 7 w + 2 d GA by previous U/S 30 w + 2 d DOMINIQUE by previous Ultrasound: 12/12/2024 Assigned: based on the LMP, selected on 07/28/2024 Assigned GA 30 w + 2 d Assigned DOMINIQUE: 12/12/2024 General Evaluation ----- --------- Cardiac activity Present. FHR 162 bpm. Presentation: breech Placenta: Placental site: anterior, away from cervical os Umbilical cord: Cord vessels: 3 vessel cord. Insertion site: documentedpreviously Amniotic fluid: Amount of AF: normal amount. MVP 5.1 cm Maternal Structures ----- --------- Uterus Visualized Cervix Suboptimal Approach - Transabdominal Right Ovary Not visualized Left Ovary Not visualized Cul de Sac Suboptimal. No free fluid visualized Impression ----- --------- Single viable intrauterine . Amniotic fluid MVP measures 5.1 cm. Recommendations ----- --------- Patient is scheduled for weekly bowel evaluation. Patient is scheduled in three weeks for follow up growth. Subsequent follow up or other follow up as clinically determined byprimary OB provider unless otherwise specified by MFM. Results forwarded to ordering provider so they can follow up with thepatient as necessary. us Chrissie Bullock MD [facility] ORDERABLES Final Re sult documented in this encounter Visit Diagnoses Diagnosis Supervision of high risk , antepartum Obesity in , antepartum Obesity complicating , childbirth, or the puerperium, antepartum condition or complication documented in this encounter Additional Health Concerns Assessment Noted Time PHQ-9 Depression Total Score: 0 10/27/19 10:25 AM EDT A Body Mass Index follow-up plan has been documented for the patient 08/10/2023 10:14 AM EDT documented as of this encounter Care Teams Smoke Control Supervisor Relationship Specialty Start Date End Date Armen Sánchez DO [address] [facility], [place] [address] PCP - General Family Medicine 08/25/23 documented as of this encounter
--- OUTSIDE RECORDS SUMMARY | 2024-10-09 16:59 | XMS_ITS | Encounter Summary ---
Author Organization [employer] s tem Address [facility] [id number] [address] [place] [address] Care Team Providers Care Veneer Matcher Name Role Phone PrincessArmen Cedric [place] Primary Care Provider Encounter Details Date Type Department Care Team (Late st Contact Info) Description 08/25/2023 [facility]phone [facility] [address] [place] [address] Bernadette Zhang CMA Social History Tobacco Use Types Packs/Day Years Used Date Smoking Tobacco: Every Day Cigarettes 1 13.2 Started: 08/01/2011 Smokeless Tobacco: Never Alcohol Use Standard Drinks/Week Comments Not Currently 0 (1 standard drink = 0.6 oz pur e alcohol) [facility] Utilities Answer Date Recorded In the past 12 months has [employer], gas, oil, or water company threatened to [...] often do you attend chur ch or rastafari services? Never 08/25/2023 Do you belong to any clubs o r organizations such as religious groups, unions, fraternal or athletic groups, or [...] Answer Date Recorded Total Score 6 08/25/2023 [facility] Occupat ional Health - Occupational [...] Description 10/12/2024 3:15 PM EDT Appointment [facility] US Imaging [address] [facility] [place] [place] [address] 10/19/2024 2:00 PM EDT Initial [facility] - Women's Services [address] [place] [address] Rain Bond, DO [address] [facility] [place] [address] [address] 10/19/2024 3:30 PM EDT Appointment [facility] US Imaging [address] [place] [address] 10/30/2024 11:00 AM EDT Appointment [facility] US Imaging [address] [place] [address] 10/30/2024 11:30 AM EDT Office Visit Maternal- Medicine at [facility] [address] [place] [address] Angela Perez MD [address] [facility], [address] [place] [address] documented as of this encounter Visit Diagnoses Not on filedocumented in this encounter Additional Health Concerns Assessment Noted Time PHQ-9 Depression Total Score: 6 08/25/19 24 9:30 AM EDT A Body Mass Index follow-up plan has been documented for the patient 08/10/2023 10:14 AM EDT documented as of this encounter Care Teams Veneer Matcher Relationship Specialty Start Date End Date Armen Sánchez DO [address], [place] [address] PCP - General Family Medicine 08/25/23 documented as of this encounter
--- OUTSIDE RECORDS SUMMARY | 2024-10-09 16:59 | XMS_ITS | Encounter Summary ---
Author Organization [facility] Address [address] [place] [address] Care Team Providers Care Donor Services Team Leader Name Role Phone Armen Sánchez MD Primary Care Provider [phone] Encounter Details Date Type Department Care Team (Late st Contact Info) Description 10/03/2024 Telephone [facility] OB [address] [place] [address] [place] [phone] Laura Godwin LPN Social History Tobacco Use [...] Telephone Encounter - Laura Godwin LPN - 10/03/2024 9:27 AM EDT Please complete transfer of care to [facility] at 32 weeks- pt is 30 weeks today. documented in this encounter Plan of Treatment Upcoming Encounters Date Type Department Care Team (Late st Contact Info) Description 10/17/2024 2:20 PM EDT Routine [facility] [address] [facility] [place] [address] Jocy Ruby PA [address] [facility] [place] [address] documented as of this encounter Visit Diagnoses Not on filedocumented in this encounter Care Teams Donor Services Team Leader Relationship Specialty Start Date End Date Armen Sánchez MD PCP - General Family Medicine 05/05/24 documented as of this encounter
--- OUTSIDE RECORDS SUMMARY | 2024-10-09 16:59 | XMS_ITS | Encounter Summary ---
Author Organization [facility] Address [address] [place] [address] Care Team Providers Care Watch Inspector Final Movement Name Role Phone Armen Street MD Primary Care Provider Encounter Details Date Type Department Care Team (Late st Contact Info) Description 10/04/2024 Clinisync Result Encounter [facility] External Department Unsolicited Magan Paez DO [address] [place], [place] [id number] Social History Tobacco Use Types Packs/Day Years [...] PM EDT Routine [facility] [address] [place] [phone] Jocy Ruby PA [address] [place] [address] documented as of this encounter Procedures Procedure Name Priority Date/Time Associated Diagnosis Comments US OB PLACENTA 10/04/2024 9:50 AM EDT documented in this encounter Results * US OB PLACENTA (10/04/2024 9:50 AM EDT) Anatomical Region Laterality Modality Other 10/04/2024 9:50 AM EDT Narrative 10/04/2024 9:52 [place] [address] Ultrasound Report Signed Patient: MICHI SERRANO MR#: [id number] : 1995 Acct:[id number] Age/Sex: 29 / F ADM Date: 09/24/24 Loc: [facility] Attending Dr: Magan Paez D.O. Ordering Physician: Magan Paez D.O. Date of Service: 09/24/24 Procedure(s): US OB placenta Accession Number(s): [id number] cc: [address] Corey D.O. [place] [address] Patient Name: MICHI SERRANO MRN: [id number] date: 1995 Sex: F Assigned Patient Location: [facility] Current Patient Location: Accession/Order Number: [id number] Exam Date: 10/04/2024 09:16 Report Date: 10/04/2024 09:50 At the request of: MAGAN PAEZ DO Procedure: US OB placenta ULTRASOUND OB PLACENTAL CLINICAL DATA: Possible abruption COMPARISON: 09/21/2024 There is a single live intrauterine gestation in cephalic presentation. There is cardiac and somatic activity with heart rate of 140 bpm. The amniotic fluid index measures 17.4 cm which is in normal range. The placenta is anterior. There is no evidence of previa. A hypoechoic area is again visualized at the inferior aspect of the placenta. The current measurements are 6.3 x 1.8 x 1.5 cm. This was previously 6.6 x 1.6 x 2.1 cm and it may be slightly smaller. US/US OB placenta IMPRESSION: HYPOECHOIC AREA ALONG THE INFERIOR ASPECT OF THE PLACENTA, MINIMALLY SMALLER THAN THE PRIOR. RESOLVING PLACENTAL ABRUPTION IS NOT EXCLUDED. Impression dictated by: Laura Rahman M.D. 10/04/2024 9:50 AM Dictation Location: [place] [address] Electronically authenticated by: [id number] Y Date: 10/04/2024 09:50 Dictated By: Laura Rahman M.D. Signed By: 10/04/24 0952 DD/ TD/TT: Core Drill Operator Helper: Procedure Note Radiology, Radiologist, MD - 10/04/2024 [place] [address] Ultrasound Report Signed Patient: MICHI SERRANO KMR#: [id number] : 1995Acct:[id number] Age/Sex: 29 / FADM Date: 09/24/24 Loc: [facility] Attending Dr: Magan Paez D.O. Ordering Physician: Magan Paez D.O. Date of Service: 09/24/24 Procedure(s): US OB placenta Accession Number(s): [id number] cc: [address] ; Magan aPez D.O. The [place] [address] Patient Name: MICHI SERRANO MRN: [id number]:[id number] date: 1995 Sex: F Assigned Patient Location: [facility] Current Patient Location: US Accession/Order Number: [id number] Exam Date: 10/04/2024 09:16 Report Date: 10/04/2024 09:50 At the request of: MAGAN PAEZ DO Procedure: US OB placenta ULTRASOUND OB PLACENTAL CLINICAL DATA: Possible abruption COMPARISON: 09/21/2024 There is a single live intrauterine gestation in cephalic presentation.There is cardiac and somatic activity with heart rate of 140 bpm. The amniotic fluid index measures 17.4 cm which is in normal range. Theplacenta is anterior. There is no evidence of previa. A hypoechoic area is again visualized at the inferior aspect of the placenta. The currentmeasurements are 6.3 x 1.8 x 1.5 cm. This was previously 6.6 x 1.6 x 2.1 cm and it maybe slightly smaller. US/US OB placenta IMPRESSION: HYPOECHOIC AREA ALONG THE INFERIOR ASPECT OF THE PLACENTA, MINIMALLYSMALLER THAN THE PRIOR. RESOLVING PLACENTAL ABRUPTION IS NOT EXCLUDED. Impression dictated by: Laura Rahman M.D. 10/04/2024 9:50 AM Dictation Location: [place] [address] Electronically authenticated by: [id number] Y Date: 9:50 Dictated By: Laura Rahman M.D. Signed By:10/04/24 0952 DD/ TD/TT: Core Drill Operator Helper: us Magan Jeannine DO [facility] Final Result documented in this encounter Visit Diagnoses Not on filedocumented in this encounter Care Teams Watch Inspector Final Movement Relationship Specialty Start Date End Date Armen Street MD PCP - General Family Medicine 05/05/24 documented as of this encounter
--- OUTSIDE RECORDS SUMMARY | 2024-10-09 16:59 | XMS_ITS | Encounter Summary ---
Author Organization [facility] Address [id number] [address] [place] [address] Care Team Providers Care Creative Arts Therapist Name Role Phone PrincessArmen Cedric [place] Primary Care Provider Encounter Details Date Type Department Care Team (Late st Contact Info) Description 08/26/2023 Orders Only [facility] Internal Medicine - Family Medicine [address] [place] [address] Scotty Mahoney DO [address] [place] [address] Rectal bleeding (Primary Dx) Social History Tobacco Use Types Packs/Day Years Used Date Smoking Tobacco: Every Day Cigarettes 1 13.2 Started: 08/01/2011 Smokeless Tobacco: Never Alcohol Use Standard Drinks/Week Comments Not Currently 0 (1 standard drink = 0.6 oz pur e alcohol) [facility] Utilities Answer Date Recorded In the past 12 months has [employer], gas, oil, or water [employer] threatened to shut off services in your [...] week 08/25/2023 How often do you attend [facility] or rastafarian services? Never 08/25/2023 Do you belong to any clubs o r organizations such as muslim groups, unions, fraternal or athletic groups, or [...] Answer Date Recorded Total Score 6 08/25/2023 [facility] of Occupat ional Health [...] Recorded Do you need help finding a [facility] career center and/or a training program? [...] Info) Description 10/12/2024 3:15 PM EDT Appointment [facility] US Imaging [address] [place] [address] 10/19/2024 2:00 PM EDT [facility] [address] [place] [address] Rain Bond, [address] [facility] [address] [address] 10/19/2024 3:30 PM EDT Appointment [facility] US Imaging [address] [place] [address] 10/30/2024 11:00 AM EDT Appointment [facility] US Imaging [address] [place] [address] 10/30/2024 11:30 AM EDT Office Visit Maternal- Medicine at [facility] [address] [place] [address] Angela Perez MD [address] [facility], [address] [place] [address] documented as of this encounter Visit Diagnoses Diagnosis Rectal bleeding- Primary Hemorrhage of rectum and anus documented in this encounter Additional Health Concerns Assessment Noted Time PHQ-9 Depression Total Score: 6 08/25/19 9:30 AM EDT A Body Mass Index follow-up plan has been documented for the patient 08/10/2023 10:14 AM EDT documented as of this encounter Care Teams Creative Arts Therapist Relationship Specialty Start Date End Date Armen Sánchez DO [address] [facility], [place] [address] PCP - General Family Medicine 08/25/23 documented as of this encounter
--- OUTSIDE RECORDS SUMMARY | 2024-10-09 16:59 | XMS_ITS | Encounter Summary ---
Author Organization [facility] Address [address] [place] [address] Care Team Providers Care Brusher Warp Name Role Phone Emi Bronson Arpit [facility] Unavailable + [phone] Armen Sánchez MD Primary Care Provider + [phone] Encounter Details Date Type Department Care Team (Late st Contact Info) Description 09/21/2024 Abstract [facility] [address] [facility] [facility] [facility] [place] [address] [address] Paez [address] [place], [place] [id number] Social History Tobacco Use Types Packs/Day Years [...] Description 10/17/2024 2:20 PM EDT Routine [facility] [address] [facility] [facility] [address] [address] Jocy Ruby PA [address] [place] [address] [place] [address] documented as of this encounter Visit Diagnoses Not on filedocumented in this encounter Care Teams Brusher Warp Relationship Specialty Start Date End Date Armen Sánchez MD [address] [place] [address] PCP - General Family Medicine 05/05/24 Emi Bronson, [facility] [address] [place] [address] Behavioral Health 04/12/24 09/26/24 documented as of this encounter
--- OUTSIDE RECORDS SUMMARY | 2024-10-09 16:59 | XMS_ITS | Encounter Summary ---
Author Organization [facility] tem Address [id number] [address] [place] [address] Care Team Providers Care Kennel Technician Name Role Phone PrincessArmen Cedric [place] Primary Care Provider [phone] Encounter Details Date Type Department Care Team (Late st Contact Info) Description 09/25/2024 Orders Only Maternal- Medicine at [facility] [address] [place] [address] Ref Prov, [place] [address] Social History Tobacco Use Types Packs/Day Years Used Date Smoking Tobacco: Every Day Cigarettes 1 13.2 Started: 08/01/2011 Smokeless Tobacco: Never Alcohol Use Standard Drinks/Week Comments Not Currently 0 (1 standard drink = 0.6 oz pur e alcohol) [facility] Utilities Answer Date Recorded In the past 12 months has [employer], gas, oil, or water company threatened to [...] often do you attend chur ch or sabianism services? Never 01/27/2024 Do you belong to any clubs o r organizations such as mandaeism groups, unions, fraternal or athletic groups, or [...] Answer Date Recorded Total Score 0 10/27/2023 [facility] of Occupat ional Health - Occupational Stress [...] Recorded Do you need help finding a [facility] and/or a training [...] Info) Description 10/12/2024 3:15 PM EDT Appointment [facility] US Imaging [address] [place] [address] 10/19/2024 2:00 PM EDT [facility] [address] [place] [address] Rain Bond, [address] [facility] [place] [address] [place] [address] 10/19/2024 3:30 PM EDT Appointment [facility] Imaging [address] [place] [address] 10/30/2024 11:00 AM EDT Appointment [facility] US Imaging [address] [place] [address] 10/30/2024 11:30 AM EDT Office Visit Maternal- Medicine at [facility] [address] [place] [address] Angela Perez MD [address] [facility], 1[address] [place] [address] documented as of this encounter Procedures Procedure Name Priority Date/Time Associated Diagnosis Comments US PREG LMTD 1 OR MORE FETUS Routine 09/25/2024 8:28 AM EDT documented in this encounter Results * Ultrasound limited 1 or more fetus (09/25/2024 8:28 AM EDT) Anatomical Region Laterality Modality OB-FIBERGLASS PIPE COVERING SUPERVISOR Ultrasound us Not In System Ref Prov IMG US ORDERABLES Final R esult documented in this encounter Visit Diagnoses Not on filedocumented in this encounter Additional Health Concerns Assessment Noted Time PHQ-9 Depression Total Score: 0 10/27/19 10:25 AM EDT A Body Mass Index follow-up plan has been documented for the patient 08/10/2023 10:14 AM EDT documented as of this encounter Care Teams Kennel Technician Relationship Specialty Start Date End Date Armen Sánchez DO [address] [facility], [place] [address] PCP - General Family Medicine 08/25/23 documented as of this encounter
--- OUTSIDE RECORDS SUMMARY | 2024-10-09 16:59 | XMS_ITS | Clinical Summary ---
Demographics Address [address] [place] [address] Home Phone Work Phone Mobile Phone Email Address Preferred Language Albanian Marital Status Single Gnosticism Affiliation Unknown Race White Ethnic Group Not or Lati no Author Organization [facility] Address [address] [place] [address] Care Team Providers Care Appeals Officer Name Role Phone Armen Sánchez Primary Care [...] today Need for prophylactic vaccin ation against cfrnrglapl-quamrzx-brvrfgfpb (DTP) 08/16/2018 Assessment & Plan (08/16/2018 4:03 [...] Hospital Encounter [facility] Delivery [address] [place] [address] Victorino Christie, Discharge Disposition: Home or Self [...] - 2023-2 5 season) 2023 Flu vaccine (#1) 11/03/2024 DTaP/Tdap/Td vaccine (2 - Td or Tdap) [...] Self 1995 [address] [place] [address] [employer] Care Teams Appeals Officer Relationship Specialty Start Date End Date Armen Sánchez DO [address] [place] [address] PCP - General Family Medicine 04/27/24
--- OUTSIDE RECORDS SUMMARY | 2024-10-09 16:59 | XMS_ITS | Encounter Summary ---
Author Organization [facility] Address [address] [place] [address] Care Team Providers Care Substitute Crossing Guard Name Role Phone Emi Bronson Arpit [facility] Unavailable + [phone] Armen Sánchez MD Primary Care Provider + [phone] Encounter Details Date Type Department Care Team (Late st Contact Info) Description 09/21/2024 Abstract [facility] [address] [facility] [place] [address] [address] Paez [address] [place], [place] [id number] Social History Tobacco Use Types Packs/Day Years [...] Description 10/17/2024 2:20 PM EDT Routine [facility] [address] [facility] [address] Jocy Ruby PA [address] [place] [address] [place] [address] documented as of this encounter Visit Diagnoses Not on filedocumented in this encounter Care Teams Substitute Crossing Guard Relationship Specialty Start Date End Date Armen Sánchez MD [address] [place] [address] PCP - General Family Medicine 05/05/24 Emi Bronson, [facility] [address] [place] [address] Behavioral Health 04/12/24 09/26/24 documented as of this encounter
--- OUTSIDE RECORDS SUMMARY | 2024-10-09 16:59 | XMS_ITS | Encounter Summary ---
Author Organization [facility] Address [address] [place] [address] Care Team Providers Care Purchasing And Fiscal Clerk Name Role Phone Armen Sánchez MD Primary Care Provider [phone] Encounter Details Date Type Department Care Team (Late st Contact Info) Description 10/04/2024 Telephone [facility] [address] [place] [phone] Curtis Paez, DO [address] [place], [place] [id number] Social History Tobacco Use Types Packs/Day Years [...] encounter Miscellaneous Notes * Telephone Encounter - Mary Quinn LPN - 10/04/2024 9:26 AM EDT Patient called office and she states that she was trying to work her appointments around work schedule and not able to do that so she is asking to be off work and that Dr, did tell her that was fine.Patient was advised that she will need to bring in FMLA complete the intake form and have payment prior to this being completed and once intake form is done this will be given to appropriate person to complete and can take up to 7 business days to complete. PVU and states she can do this today. documented in this encounter Plan of Treatment Upcoming Encounters Date Type Department Care Team (Late st Contact Info) Description 10/17/2024 2:20 PM EDT Routine [facility] [address] [facility] [place] [address] Jocy Ruby PA [address] [place] [address] documented as of this encounter Visit Diagnoses Not on filedocumented in this encounter Care Teams Purchasing And Fiscal Clerk Relationship Specialty Start Date End Date Armen Sánchez MD PCP - General Family Medicine 05/05/24 documented as of this encounter
--- OUTSIDE RECORDS SUMMARY | 2024-10-09 16:59 | XMS_ITS | Encounter Summary ---
Author Organization [facility] Address [address] [place] [address] Care Team Providers Care Mines Inspector Name Role Phone Armen Sánchez MD Primary Care Provider [phone] Encounter Details Date Type Department Care Team (Late st Contact Info) Description 10/09/2024 Abstract [facility] [address] [facility] [place] [address] Reanna Fernandez MA Social History Tobacco Use Types Packs/Day Years [...] Routine [facility] [address] [place] [address] Jocy Ruby PA [address] [place], [place] [id number] documented as of this encounter Visit Diagnoses Not on filedocumented in this encounter Care Teams Mines Inspector Relationship Specialty Start Date End Date Armen Sánchez MD PCP - General Family Medicine 05/05/24 documented as of this encounter
--- OUTSIDE RECORDS SUMMARY | 2024-10-09 16:59 | XMS_ITS | Encounter Summary ---
Author Organization [facility] Address [id number] [address] [place] [address] Care Team Providers Care Bilingual Hr Generalist Name Role Phone Armen Sánchez Primary Care Provider Encounter Details Date Type Department Care Team (Late st Contact Info) Description 08/17/2023 Orders Only [facility]necology [address] [place] [address] La Murray CMA Screening for STD (sexually [...] Info) Description 10/12/2024 3:[address] [facility] US Imaging [address] [facility] [place] [place] [address] 10/19/2024 2:00 PM EDT [facility] [address] [facility] [place] [address] Rain Bond, [address] [facility] [place] [address] [address] 10/19/2024 3:[address] [facility] US Imaging [address] [place] [address] 10/30/2024 11:[address] [facility] US Imaging [address] [place] [address] 10/30/2024 11:30 AM EDT Office Visit Maternal- Medicine at [facility] [address] [place] [address] Angela Perez MD [address] [facility], 1[address] [place] [address] documented as of this encounter Procedures Procedure [...] ORDERABLES Final Res ult Performing Organization Address [facility] Co de Phone Number [facility] * Hepatitis panel, acute (08/10/2023) Hep A IgM Ab Negative [facility] Hep B Core IgM Ab Negative Negative [facility] Hepatitis B Surface Ag Nonreactive Borderline, Nonreactive [facility] Hepatitis C Ab Negative Negative [facility] 08/10/2023 Claire Robertson MD LAB BLOOD ORDERABLES Final Res ult Performing Organization Address [facility] de Phone Number [facility] documented in this encounter Visit Diagnoses Diagnosis Screening for STD (sexually transmitted disease) documented in this encounter Additional Health Concerns Assessment Noted Time PHQ-9 Depression Total Score: 5 08/10/19 24 9:41 AM EDT A Body Mass Index follow-up plan has been documented for the patient 08/10/2023 10:14 AM EDT documented as of this encounter Care Teams Bilingual Hr Generalist Relationship Specialty Start Date End Date Armen Sánchez DO [address], [place] [address] PCP - General Family Medicine 08/25/23 documented as of this encounter
--- OUTSIDE RECORDS SUMMARY | 2024-10-09 16:59 | XMS_ITS | Encounter Summary ---
Author Organization [facility] Address [address] [place] [address] Care Team Providers Care Count Room Clerk Name Role Phone Armen Sánchez MD Primary Care Provider Encounter Details Date Type Department Care Team (Late st Contact Info) Description 10/03/2024 Abstract [facility] [address] [facility] [place] [address] [address] Paez [address] [place], [place] [id number] Social History Tobacco Use Types Packs/Day Years [...] Routine [facility] [address] [facility] [place] [address] Jocy Ruby PA [address] [facility] [place] [address] documented as of this encounter Visit Diagnoses Not on filedocumented in this encounter Care Teams Count Room Clerk Relationship Specialty Start Date End Date Armen Sánchez MD PCP - General Family Medicine 05/05/24 documented as of this encounter
--- OUTSIDE RECORDS SUMMARY | 2024-10-09 16:59 | XMS_ITS | Encounter Summary ---
Author Organization [facility] Address [address] [place] [address] Care Team Providers Care Car Shifter Name Role Phone Jessica Bronsonmadeline Munson [facility] Unavailable +[phone] MD Primary Care Provider + [phone] Encounter Details Date Type Department Care Team (Late st Contact Info) Description 09/25/2024 Clinisync Result Encounter [facility] External Department Unsolicited Magan Paez DO [address] [place], [place] [phone] Social History Tobacco Use Types Packs/Day Years [...] Routine [facility] OB [address] [place] [address] Jocy Ruby PA [address] [place] [address] [phone] (work) documented as of this encounter Procedures Procedure Name Priority Date/Time Associated Diagnosis Comments US OB BPP W NON-STRESS 09/25/2024 8:08 AM EDT documented in this encounter Results * US OB BPP W NON-STRESS (09/25/2024 8:08 AM EDT) Anatomical Region Laterality Modality Other 09/25/2024 8:08 AM EDT Narrative 09/25/2024 8:10 [place] [address] Ultrasound Report Signed Patient: MICHI SERRANO MR#: [id number] : 1995 Acct:[id number] Age/Sex: 29 / F ADM Date: Loc: [facility] 251-[address]: Magan Paez D.O. Ordering Physician: Magan Paez D.O. Date of Service: 09/24/24 Procedure(s): US OB BPP w non-stress Accession Number(s): [id number] cc: [address] ; Magan Paez D.O. [address] [address] Patient Name: MICHI SERRANO MRN: [facility]:[id number] date: 1995 Sex: F Assigned Patient Location: [facility] Current [place] [facility] Accession/Order Number: [id number] Exam Date: 09/25/2024 08:05 Report Date: 09/25/2024 08:08 At the request of: MAGAN PAEZ DO Procedure: US OB BPP w non-stress CLINICAL DATA: History of bleeding. Possible abruption. BIOPHYSICAL PROFILE: COMPARISON: None There is a single live intrauterine gestation in cephalic presentation. The reported gestational age is 28 weeks 5 days. The heart rate [id number] beats per minute. FINDINGS: TONE: 1 or [...] Rahman M.D. 09/25/2024 8:08 AM Dictation Location: [place] [address] Electronically authenticated by: [id number] Y Date: 09/25/2024 08:08 Dictated By: Laura Rahman M.D. Signed By: 09/25/24 0810 DD/ 0808 TD/TT: Transcription Coordinator: Procedure Note Radiology, Radiologist, MD - 09/25/2024 [place] [address] Ultrasound Report Signed Patient: MICHI SERRANO KMR#: [id number] : 1995Acct:[id number] Age/Sex: Date: Loc: [facility] 251-[address]: Magan Paez D.O. Ordering Physician: Magan Paez D.O. Date of Service: 09/24/24 Procedure(s): US OB BPP w non-stress Accession Number(s): [id number] cc: [address] ; Magan Paez D.O. The [address] [address] Patient Name: MICHI SERRANO MRN: [id number] date: 1995 Sex: F Assigned Patient Location: [facility] Current [place] [facility] [place] Accession/Order Number: [id number] Exam Date: 09/25/2024 08:05 Report Date: 09/25/2024 08:08 At the request of: MAGAN PAEZ DO Procedure: US OB BPP w non-stress CLINICAL DATA: History of bleeding. Possible abruption. BIOPHYSICAL PROFILE: COMPARISON: None There is a single live intrauterine gestation in cephalic presentation.The reported gestational age is 28 weeks 5 days. The heart [id number] beats per minute. FINDINGS: TONE: 1 or [...] Rahman M.D. 09/25/2024 8:08 AM Dictation Location: [place] [address] Electronically authenticated by: [id number] Y Date: 508:08 Dictated By: Laura Rahman M.D. Signed By:09/25/24 0810 DD/ 0808 TD/TT: Transcription Coordinator: us Magan Jeannine DO [facility] Final Result documented in this encounter Visit Diagnoses Not on filedocumented in this encounter Care Teams Car Shifter Relationship Specialty Start Date End Date Armen Street MD [address] [place] [address] PCP - General Family Medicine 05/05/24 Emi Bronson [facility] [address] [place] [address] Behavioral Health 04/12/24 09/26/24 documented as of this encounter
--- OUTSIDE RECORDS SUMMARY | 2024-10-09 17:00 | XMS_ITS | Encounter Summary ---
Author Organization [facility] Address [address] [place] [address] Care Team Providers Care Data Center Consultant Name Role Phone Emi Bronson [facility] Unavailable + [phone] Armen Sánchez MD Primary Care Provider + [phone] Encounter Details Date Type Department Care Team (Late st Contact Info) Description 09/14/2023 Abstract [facility] [address] [facility] [address] [place] [phone] Nav Ames MD [address] [facility] [address] [place] [address] Social History Tobacco Use Types Packs/Day Years [...] PM EDT Routine [facility] OB [address] [facility] [place] [address] Jocy Ruby PA [address] [place] [address] documented as of this encounter Visit Diagnoses Not on filedocumented in this encounter Care Teams Data Center Consultant Relationship Specialty Start Date End Date Armen Sánchez MD [address] [place] [address] PCP - General Family Medicine 05/05/24 Emi Bronson [facility] [address] [place] [address] Behavioral Health 04/12/24 09/26/24 documented as of this encounter
--- OUTSIDE RECORDS SUMMARY | 2024-10-09 17:00 | XMS_ITS | Clinical Summary ---
Author Organization [employer] tem Address [facility] [id number] [address] [place] [address] Care Team Providers Care Washing Machine Installer Name Role Phone MasoodArmen silverman Primary Care Provider Allergies Active Allergy Reactions Criticality Noted Date Comments Penicillins Other (See Comments) 08/10/2023 Yeast infections Medications FLUoxetine (PROzac) 20 mg capsule Take 1 capsule (20 mg total) by mouth in the morning. 30 capsule 3 Active Additional Information Patient not taking.Reported on 09/29/2024 magnesium oxide (MAGOX) 400 mg tablet Take 1 tablet (400 mg total) by mouth in the morning. Active PNV 19/iron ps,heme/folic/d recinos ( MV & MIN ORAL) Take 1 tablet by mouth in the morning. Active polyethylene glycol (GLYCOLAX) 17 gram packet Take 17 g by mouth in the morning. Active venlafaxine XR (EFFEXOR XR) 37.5 mg 24 hr capsule Take 1 capsule (37.5 mg total) by mouth in the morning. Active Active Problems Patient Care Coordination No te Formatting of this note migh t be different from the original. 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 Referring OB: Jeannine CHÁVEZM: Erik Maternal Hx: MSAFP: cfDNA: Low risk XX Carrier: Amnio: Positive for 2 known variants for CF []Genetic Counselling: []Peds Cardiology: []Peds Urology: []Peds Ortho: []Peds Surgery: []Peds Neurology: []Peds Neurosurgery: []Peds Craniofacial: []NICU Consult: []Palliative Care Consult: []SGM: []Life Connection: []Solano: [] MRI: []Nationwide: []UofM: []UH: [x]JO CHS: If Peds are NOT ok taking care of CF baby Delivery Recommendation: [x] Term at local hospital, if Peds are ok taking care of CF baby [] Term at [facility] Surveillance Plan: [x] F/U Survey sched 08/25/24 at [facility] [] Growth q __ weeks [] Dopplers q __ weeks [] Echo at __ weeks [] Cervical length q __ weeks [] TTTS q __ weeks [] Wkly NST/NAYE starting at __ weeks [] 2x/wk NST/NAYE starting at __ weeks Problem Noted Date Diagnosed Date Maternal care for other (pavel pected) abnormality and damage, gastrointestinal anomalies, not applicable or unspecified 09/30/2024 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 Overweight 01/27/2024 Depression 10/27/2023 Anxiety 10/27/2023 Onychomycosis 10/27/2023 Rectal bleeding 08/26/2023 Vitamin D deficiency 08/16/2018 Overview (09/27/2023): Last Assessment & Plan: Labs today Estimated Date of Delivery Comme nts Yes 12/12/2024 Based on last me nstrual period of 03/07/2024, test negative 09/03/23 at 1242 Encounters Date Type Department Care Team Description 10/05/2024 3:13 PM EDT - 10/05/2024 11:59 PM EDT Hospital Encounter [facility] US Imaging [address] [place] [address] Supervision of high risk , antepartum; Obesity in , antepartum Discharge Disposition: Home 10/05/2024 Travel 09/29/2024 4:25 PM EDT Office Visit Maternal- Medicine at [facility] [address] [place] [address] Chrissie Snow MD 29 weeks gestation of (Primary Dx); Cystic fibrosis carrier; Maternal care for other (suspected) abnormality and damage, gastrointestinal anomalies, not applicable or unspecified 09/29/2024 2:41 PM EDT - 09/29/2024 11:59 PM EDT Hospital Encounter [facility] US Imaging [address] [place] [address] Suresh Valencia MD Cystic fibrosis carrier; Abnormal genetic test during Discharge Disposition: Home 09/29/2024 Travel 09/25/2024 Orders Only Maternal- Medicine at [facility] [address] [place] [address] Ref Prov, Not In System 09/15/2024 Telephone Maternal- Medicine at [facility] [address] [place] [address] Miriam Joseph RN 09/07/2024 10:30 AM EDT Office Visit [facility] [address] [facility] [address] [place] [address] Rashida Silva MD 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); Encounter for consultation 09/07/2024 Orders Only Maternal- Medicine at [facility] [address] [place] [place] [address] Miriam Joseph, RN 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); Abnormal genetic test during 09/05/2024 Travel 08/25/2024 Travel 08/18/2024 Orders Only Maternal- Medicine at [facility] [address] [place] [address] Barbra Samuel RN 08/18/2024 Orders Only Maternal- Medicine at [facility] [address] [place] [address] Barbra Samuel RN 08/17/2024 Telephone Maternal- Medicine at [facility] [address] [place] [address] Rachel Rodriguez LGC 07/28/2024 1:48 PM EDT - 07/28/2024 11:59 PM EDT Hospital Encounter [facility] [address] [place] [address] Discharge Disposition: Home 07/28/2024 10:00 AM EDT Office Visit Maternal- Medicine at [facility] [address] [place] [address] Suresh Valencia MD 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) 07/28/2024 8:42 AM EDT - 07/28/2024 1:47 PM EDT Hospital Encounter [facility] US Imaging [address] [facility] [place] [address] Abnormal genetic test during ; Screening, , for anatomic survey Discharge Disposition: Home 07/28/2024 Orders Only Maternal- Medicine at [facility] [address] [facility] [place] [address] Miriam Joseph RN 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); Abnormal genetic test during 07/28/2024 Travel 07/19/2024 Orders Only [facility] Internal Medicine - Family Medicine [address] [place] [address] Ref Prov, Not In System 07/12/2024 Telephone Maternal- Medicine at [facility] [address] [facility] [place] [address] Rachel Rodriguez LGC from Last 3 Months [...] 0.6 oz pur e alcohol) [facility] Utilities Answer Date Recorded In the past 12 months has th e [employer], gas, oil, or water [employer] threatened to shut off services in your [...] often do you attend chur ch or cheondoism services? Never 01/27/2024 Do you belong to any clubs o r organizations such as bahai groups, unions, fraternal or athletic groups, or [...] Answer Date Recorded Total Score 0 10/27/2023 [facility] - [...] Pulse 83 09/29/2024 4:29 PM EDT Temperature 36.5 C (97.7 F) 01/27/2024 [...] Info) Description 10/12/2024 3:15 PM EDT Appointment [facility] US Imaging [address] [place] [address] 10/19/2024 2:00 PM EDT [facility] [address] [place] [address] Rain Bond [address] [place] [address] 10/19/2024 3:30 PM EDT Appointment [facility] US Imaging [address] [place] [address] 10/30/2024 11:00 AM EDT Appointment [facility] US Imaging [address] [place] [address] 10/30/2024 11:30 AM EDT Office Visit Maternal- Medicine at [facility] [address] [place] [address] Angela Perez MD [address] [facility] [address] [place] [address] Health Maintenance Due Date Last Done Comments Adult BMI Follow Up Plan 08/09/2024 08/10/2023 Depression Screening 10/26/2024 10/27/2023 Influenza Vaccine 12/04/2024 Tobacco Counseling 02/24/2025 08/25/2023 Adult BMI Screening 07/28/2025 07/28/2024 Tobacco Screening 09/30/2025 09/30/2024 Pap Smear 07/07/2027 07/06/2024, 0510/2023, 08/10/2023 DTaP,Tdap and Td Vaccines (2 - Td or Tdap) 08/16/2028 08/16/2018 Medical Devices Not on file Procedures Procedure Name Priority Date/Time Associated Diagnosis Comments US MFM LMTD OB, 1 OR MORE FETUS Routine 10/05/2024 4:29 PM EDT Supervision of high risk , antepartum Obesity in , antepartum US MFM OB FOLLOW-UP, 1 FETUS Routine 09/29/2024 4:32 PM EDT Cystic fibrosis carrier Abnormal genetic test during US PREG LMTD 1 OR MORE FETUS [...] OUT TEST Routine 07/28/2024 11:05 AM EDT HIGH RISK HPV W/FAUSTINA Routine 08/10/2023 4:17 AM EDT Pap smear, as part of routine gynecological examination from Last 3 Months or Most Recently Relevant to Health Maintenance Results * US MFM LMTD OB, 1 OR MORE FETUS (10/05/2024 4:29 PM EDT) Only the most recent of4 resultswithin the time period is included. Anatomical Region Laterality Modality OB-SENIOR ASIC ENGINEER Ultrasound 10/05/2024 4:06 PM EDT Narrative 10/05/2024 4:43 PM EDT NAME: JEREMY BORDEN : 1995 SEX: F Accession Number: [id number] ORDERING PHYSICIAN: CHRISSIE SNOW REFERRING PHYSICIAN: MAGAN TRISTAN Coding ----- --------- Procedures 33066: Limited OB / NAYE, 1 or More Fetuses Indication ----- --------- Abnormal finding on screening of mother-MOB + FOB CF carriers, Depression, Anxiety , Supervision of high risk , recent trauma to abdomen , prominent bowel , cystic fibrosis History ----- --------- OB History 1. Para 0 [id number] Current ----- --------- Cell free DNA low [...] BORDEN : 1995 SEX: F Accession Number: [id number] ORDERING PHYSICIAN: CHRISSIE SNOW REFERRING PHYSICIAN: MAGAN TRISTAN Coding ----- --------- Procedures 97237: Limited OB / NAYE, 1 or More Fetuses Indication ----- --------- Abnormal finding on screening of mother-MOB + FOB CF carriers,Depression, Anxiety , Supervision of high risk , recent trauma to abdomen , prominent bowel , cysticfibrosis History ----- --------- OB History 1. Para 0 [id number] Current ----- --------- Cell free DNA low [...] up with thepatient as necessary. us Chrissie Snow MD [facility] [place] ORDER[place]LES Final Re sult * Ultrasound limited 1 or more fetus (09/25/2024 8:28 AM EDT) Anatomical Region Laterality Modality OB-SENIOR ASIC ENGINEER Ultrasound us Not In System Ref Prov [facility] [place] Final R esult * Send Out Test (07/28/2024 11:05 AM EDT) Only the most recent of2 resultswithin the time period is included. Test name: KNOWN MUTATION ANALYSIS CFTR GENE 07/28/2024 1:55 PM EDT [facility] Specimen 3 MATERNAL AMNIOTIC FLUID 2 EDTA AND 1 SODIUM HEP MATERNAL 07/28/2024 1:55 PM EDT [facility] Sent to [facility] [employer] [id number] 07/28/2024 2:18 PM EDT [facility] Comment:Corrected on 07/28 A T 1418: Previously reported as [facility] [employer] [id number] Test result See separate report. View in OnBase or in EPIC. 08/23/2024 7:01 PM EDT [facility] MISCELLANEOUS 07/28/2024 11: 05 AM EDT 07/28/2024 1:53 PM EDT us Suresh Valencia MD LAB ORDERABLES Edited Result - Final Performing Organization Address [facility] Co de Phone Number [facility] * High risk HPV w/faustina (08/10/2023 4:17 AM EDT) Hpv specimen type ThinPrep 08/11/2023 4:17 AM EDT [facility] Hpv 16 Negative Negative^N egative 08/11/2023 2:37 PM EDT [facility] Hpv 18 Negative Negative^N egative 08/11/2023 2:37 PM EDT [facility] Other high risk hpv Negative Negative^N egative 08/11/2023 2:37 PM EDT [facility] Comment: HPV types 31,33,35,39,45,52,56,58,59,66 and 68 DNA were undetectable. THINP 08/10/2023 4:17 AM EDT 08/10/2023 4:48 AM EDT us Claire Robertson MD LAB BLOOD ORDERABLES Final Res ult Performing Organization Address City/[facility]/ZIP Co de Phone Number [facility] [address] [facility] [place] [address] [facility] [address] [facility] [place] [address] from Last 3 Months or Most Recently Relevant to Health Maintenance Insurance * Guarantor: Sapna Serranoy Account Type Relation to Patient Date of Phone Billing Address Personal/Family Self 1995 [address] [place] [address] [employer] Member Subscriber Plan / Payer (Ef fective 2023-Present) Name:Sapna Serranoy Relation to Subscriber:Self Name:Sapna Serrano Payer ID:Not on file Type:Not on file Address: [place] [id number] Care Teams Washing Machine Installer Relationship Specialty Start Date End Date Armen Sánchez DO [address], [place] [address] PCP - General Family Medicine 08/25/23
--- OUTSIDE RECORDS SUMMARY | 2024-10-09 17:00 | XMS_ITS | Encounter Summary ---
Author Organization [facility] Address [address] [place] [address] Care Team Providers Care Sign Language Interpreter Name Role Phone Emi Bronson [facility] Unavailable + [phone] Armen Sánchez MD Primary Care Provider + [phone] Encounter Details Date Type Department Care Team (Late st Contact Info) Description 07/11/2024 Orders Only [facility] [address] [place] [address] Mary Quinn LPN [address] [facility] [place] [id number] Social History Tobacco Use Types Packs/Day Years [...] PM EDT Routine [facility] [address] [place] [address] Jocy Ruby PA [address] [place] [address] [place] [address] documented as of this encounter Procedures Procedure Name Priority Date/Time Associated Diagnosis Comments PAP SMEAR Routine 07/06/2024 12:00 AM EDT documented in this encounter Results * Pap Smear (07/06/2024 12:00 AM EDT) Swab Cervical swab / Unknown us Jeannine Nurse [facility] Ob LAB CYTOLOGY ORDERABLES Final Result EXTERNAL LAB documented in this encounter Visit Diagnoses Not on filedocumented in this encounter Care Teams Sign Language Interpreter Relationship Specialty Start Date End Date Armen Sánchez MD [address] [place] [address] PCP - General Family Medicine 05/05/24 Emi Bronson, [facility] [address] [place] [address] Behavioral Health 04/12/24 09/26/24 documented as of this encounter
--- OUTSIDE RECORDS SUMMARY | 2024-10-09 17:00 | XMS_ITS | Encounter Summary ---
Author Organization [employer] tem Address [id number] [address] [place] [address] Care Team Providers Care Flight Crew Time Clerk Name Role Phone PrincessArmen Cedric [place] Primary Care Provider Encounter Details Date Type Department Care Team (Latest Contact Info) Description 09/29/2024 Travel Social History Tobacco Use Types Packs/Day Years Used Date Smoking Tobacco: Every Day Cigarettes 1 13.2 Started: 08/01/2011 Smokeless Tobacco: Never Alcohol Use Standard Drinks/Week Comments Not Currently 0 (1 standard drink = 0.6 oz pur e alcohol) [facility] Utilities Answer Date Recorded In [...] often do you attend chur ch or methodist services? Never 01/27/2024 Do you belong to [...] Answer Date Recorded Total Score 0 10/27/2023 [facility] Occupat ional [facility] - Occupational Stress [...] Recorded Do you need help finding a [facility] career center and/or a training program? [...] Info) Description 10/12/2024 3:15 PM EDT Appointment [facility] US Imaging [address] [place] [address] 10/19/2024 2:00 PM EDT [facility] [address] [place] [address] Rain Bond [address] [facility] [place] [address] [address] 10/19/2024 3:30 PM EDT Appointment [facility] US Imaging [address] [place] [address] 10/30/2024 11:00 AM EDT Appointment [facility] US Imaging [address] [place] [address] 10/30/2024 11:30 AM EDT Office Visit Maternal- Medicine at [facility] [address] [place] [address] Angela Perez MD [address] [facility] [address] [place] [address] documented as of this encounter Visit Diagnoses Not on filedocumented in this encounter Additional Health Concerns Assessment Noted Time PHQ-9 Depression Total Score: 0 10/27/19 10:25 AM EDT A Body Mass Index follow-up plan has been documented for the patient 08/10/2023 10:14 AM EDT documented as of this encounter Care Teams Flight Crew Time Clerk Relationship Specialty Start Date End Date Armen Sánchez DO [address], [facility] [place] [address] PCP - General Family Medicine 08/25/23 documented as of this encounter
--- OUTSIDE RECORDS SUMMARY | 2024-10-09 17:00 | XMS_ITS | Clinical Summary ---
Author Organization [facility] Address [address] [place] [address] Care Team Providers Care Gang Leader Name Role Phone Armen Sánchez MD Primary Care Provider [phone] Allergies Active Allergy Reactions Criticality Noted Date [...] Active Problems Problem Noted Date Diagnosed Date Third trimester ([facility]) 10/03/2024 29 weeks gestation of ([facility]) 2024 HSV infection 10/03/2024 Placental abnormality in third trimester ([facility]) 09/21/2024 History of loop electrosurgi ledy excision procedure (LEEP) of cervix affecting , antepartum ([facility]) 09/21/2024 Cystic fibrosis carrier, antepartum ([facility]) Moderate episode of recurrent major depressive d isorder 10/25/2023 ALICIA (generalized anxiety disorder) 10/25/2023 Estimated Date of Delivery Comme nts Yes 12/12/2024 Based on last me nstrual period of 03/07/2024 Encounters Date Type Department Care Team Description 10/09/2024 Abstract [facility] [address] [place] [address] Reanna Fernandez MA 10/04/2024 Clinisync Result Encounter [facility] External Department Unsolicited Magan Paez, 10/04/2024 Telephone [facility] [address] [place] [address] Magan Paez, DO 10/03/2024 8:40 AM EDT Routine [facility] [address] [place] [address] Magan Paez, DO Third trimester ([facility]); Cystic fibrosis carrier, antepartum ([facility]); Moderate episode of recurrent major depressive disorder (HCC); History of loop electrosurgical excision procedure (LEEP) of cervix affecting , antepartum ([facility]); HSV infection; 30 weeks gestation of ([facility]); Maternal care for other (suspected) abnormality and damage, gastrointestinal anomalies, not applicable or unspecified ([facility]) 10/03/2024 Telephone [facility] [address] [place] [address] Laura Godwin LPN 10/03/2024 Abstract [facility] [address] [place] [address] Magan Paez, 09/25/2024 Clinisync Result Encounter [facility] External Department Unsolicited Magan Paez, DO 09/21/2024 Abstract [facility] [address] [place] [address] Magan Paez, DO 09/21/2024 Abstract [facility] [address] [place] [address] Magan Paez, 09/21/2024 Clinisync Result Encounter [facility] External Department Unsolicited Magan Paez, 09/21/2024 Clinisync Result Encounter [facility] External Department Unsolicited Magan Paez, 09/21/2024 Orders Only [facility] [address] [place] [address] Magan Paez, Placental abnormality in third trimester ([facility]); Cystic fibrosis carrier, antepartum ([facility]); History of loop electrosurgical excision procedure (LEEP) of cervix affecting , antepartum ([facility]) 09/21/2024 Telephone [facility] [address] [place] [address] Antoinette Jackman, PRICING LEAD 09/19/2024 Telephone [facility] [address] [place] [address] Laura Godwin, PRICING LEAD 09/18/2024 3:40 PM EDT Routine [facility] [address] [place] [address] Magan Paez, Anxiety, generalized (Primary Dx); Second trimester ([facility]); 27 weeks gestation of ([facility]); Cystic fibrosis carrier, antepartum ([facility]) 09/18/2024 Bamboo flowsheet [facility] [address] [place] [address] [place] [address] Magan Paez, 09/18/2024 Travel 08/30/2024 9:50 AM EDT Routine [facility] [address] [place] [address] Jocy Ruby PA Second trimester ([facility]); 25 weeks gestation of ([facility]) 08/30/2024 Clinisync Result Encounter [facility]OM[facility] External Department Unsolicited Magan Paez, DO 08/30/2024 Bamboo flowsheet [facility] [address] [place] [address] [place] [address] Jocy Ruby PA 08/14/2024 10:30 AM EDT Procedure Visit [facility] [address] [place] [phone] Magan Paez DO Cystic fibrosis carrier, antepartum ([facility]); LGSIL on Pap smear of cervix 08/14/2024 Travel 08/01/2024 1:20 PM EDT Routine [facility] [address] [place] [address] Magan Paez DO Chlamydia trachomatis infection; 21 weeks gestation of ([facility]); Second trimester ([facility]); Diabetes mellitus screening 08/01/2024 Bamboo flowsheet [facility] [address] [place] [address] Magan Paez DO 08/01/2024 Travel 07/11/2024 12:00 PM EDT Clinical Support [facility] [address] [place] [address] Emi Bronson, [facility] Moderate episode of recurrent major depressive disorder (HCC); ALICIA (generalized anxiety disorder) 07/11/2024 Orders Only [facility] [address] [place] [address] Mary Qiunn LPN 07/11/2024 Bamboo flowsheet [facility] [address] [place] [address] Emi Bronson, [facility] 07/11/2024 Travel 07/10/2024 Telephone [facility] [address] [place] [address] Nely Warren MA from Last 3 Months Family History Medical [...] Mass Index 34.84 10/03/2024 9:00 AM EDT Plan of Treatment Upcoming Encounters Date Type Department Care Team (Late st Contact Info) Description 10/17/2024 2:20 PM EDT Routine [facility] [address] [place] [address] Jocy Ruby PA [address] [place] [address] Procedures Procedure Name Priority Date/Time Associated Diagnosis Comments US OB PLACENTA 10/04/2024 9:50 AM EDT POCT URINALYSIS DIPSTICK Routine 10/03/2024 9:04 AM EDT Third trimester ([facility]) US OB BPP W NON-STRESS 09/25/2024 8:08 AM EDT US OB PLACENTA 09/21/2024 2:53 PM EDT US OB CERVICAL LENGTH 09/21/2024 2:40 PM EDT GLUCOSE 1 HOUR Routine 08/30/2024 11:28 AM EDT ALL CBC WITH AUTO DIFF Routine 08/30/2024 11:28 AM EDT POCT URINALYSIS DIPSTICK Routine 08/30/2024 11:24 AM EDT Second trimester ([facility]) COLPOSCOPY Routine 08/14/2024 2:19 PM EDT LGSIL on Pap smear of cervix RECURRENT VAGINITIS (HTRX) Routine 08/01/2024 2:52 PM EDT US OB 14+ WEEKS ANATOMY SCAN 07/28/2024 1:13 PM EDT from Last 3 Months Results * US OB PLACENTA (10/04/2024 9:50 AM EDT) Only the most recent of2 resultswithin the time period is included. Anatomical Region Laterality Modality Other 10/04/2024 9:50 AM EDT Narrative 10/04/2024 9:[place] [address] Ultrasound Report Signed Patient: MICHI SERRANO MR#: [id number] : 1995 Acct:[id number] Age/Sex: 29 / F ADM Date: 09/24/24 Loc: [facility] Attending Dr: Magan Paez D.O. Ordering Physician: Magan Paez D.O. Date of Service: 09/24/24 Procedure(s): US OB placenta Accession Number(s): [id number] cc: ARMEN SÁNCHEZ ; Magan Paez D.O. [place] [id number] Patient Name: MICHI SERRANO MRN: [id number] date: 1995 Sex: F Assigned Patient Location: [facility] Current Patient Location: [place] Accession/Order Number: [id number] Exam Date: 10/04/2024 09:16 Report Date: 10/04/2024 [...] Rahman M.D. 10/04/2024 9:50 AM Dictation Location: [place] [address] Electronically authenticated by: [id number] Y Date: 10/04/2024 09:50 Dictated By: Laura Rahman M.D. Signed By: 10/04/24 0952 DD/ 0950 TD/TT: Labor Relations Analyst: Procedure Note Radiology, Radiologist, MD - 10/04/2024 [place] [address] Ultrasound Report Signed Patient: MICHI SERRANO KMR#: [id number] : 1995Acct:[id number] Age/Sex: FADM Date: 09/24/24 Loc: [facility] Attending Dr: Magan Paez D.O. Ordering Physician: Magan Paez D.O. Date of Service: 09/24/24 Procedure(s): US OB placenta Accession Number(s): [id number] cc: ARMEN SÁNCHEZ Corey D.O. The [place] [id number] Patient Name: MICHI SERRANO MRN: [facility]:[id number] date: 1995 Sex: F Assigned Patient Location: [facility] Current Patient Location: US Accession/Order Number: [id number] Exam Date: 10/04/2024 09:16 Report Date: 10/04/2024 [...] Rahman M.D. 10/04/2024 9:50 AM Dictation Location: [place] [address] Electronically authenticated by: [id number] Y Date: 9:50 Dictated By: Laura Rahman M.D. Signed By:10/04/24 0952 DD/ TD/TT: Labor Relations Analyst: us Magan Paez DO [facility] IMAGING Final Result * (ABNORMAL) POCT urinalysis dipstick manually resulted (10/03/2024 9:04 AM EDT) Only the most recent of2 resultswithin the time period is included. Color, UA Yellow Clarity, UA Clear Glucose, UA Negative Negative - 1999(110) ++++ mg/dL Bilirubin, UA Negative Negative - 4(70) +++ mg/dL Ketones, UA Negative Negative - 160(16) ++++ mg/dL Spec Grav, UA 1.020 1 - 1.03 Blood, UA Negative Negative - 50 Koby/mcL pH, UA 7.5 5 - 9 Protein, UA Trace Negative - 1999(20) ++++ mg/dL Urobilinogen, UA 0.2 0.2 - 12 mg/dL Leukocytes, UA Negative Negative - 500+++ Danny/mcL Nitrite, UA Negative Negative - Positive Urine 10/03/2024 9:04 AM EDT Magan Paez DO POINT OF CARE TEST ENTER/EDIT OR DERABLES Final Result * US OB BPP W NON-STRESS (09/25/2024 8:08 AM EDT) Anatomical Region Laterality Modality Other 09/25/2024 8:08 AM EDT Narrative 09/25/2024 8:10 [place] [address] Ultrasound Report Signed Patient: MICHI SERRANO MR#: [id number] : 1995 Acct:[id number] Age/Sex: 29 / F ADM Date: Loc: [facility] 251-[address]: Magan Paez D.O. Ordering Physician: Magan Paez D.O. Date of Service: 09/24/24 Procedure(s): US OB BPP w non-stress Accession Number(s): [id number] cc: ARMEN SÁNCHEZ ; Magan Paez D.O. [place] [address] Patient Name: MICHI SERRANO MRN: [facility]:[id number] date: 1995 Sex: F Assigned Patient Location: [facility] Current Patient Location: [facility] Accession/Order Number: [id number] Exam Date: 09/25/2024 08:05 Report Date: 09/25/2024 08:08 At the request of: MAGAN PAEZ DO Procedure: US OB BPP w non-stress CLINICAL DATA: History of bleeding. Possible abruption. BIOPHYSICAL PROFILE: COMPARISON: None There is a single live intrauterine gestation in cephalic presentation. The reported gestational age is 28 weeks 5 days. The heart rate owuisbrc601 beats per minute. FINDINGS: TONE: 1 or [...] Rahman M.D. 09/25/2024 8:08 AM Dictation Location: [place] [address] Electronically authenticated by: [id number] Y Date: 09/25/2024 08:08 Dictated By: Laura Rahman M.D. Signed By: 09/25/2410 DD/ TD/TT: Labor Relations Analyst: Procedure Note Radiology, Radiologist, MD - 09/25/2024 [place] [address] Ultrasound Report Signed Patient: MICHI SERRANO KMR#: [id number] : 1995Acct:[id number] Age/Sex: M Date: Loc: [facility] 251-[address]: Magan Paez D.O. Ordering Physician: Magan Paez D.O. Date of Service: 09/24/24 Procedure(s): US OB BPP w non-stress Accession Number(s): [id number] cc: ARMEN SÁNCHEZ Corey D.O. The [place] [id number] Patient Name: MICHI SERRANO MRN: [id number] date: 1995 Sex: F Assigned Patient Location: [facility] Current Patient Location: [facility] Accession/Order Number: [id number] Exam Date: 09/25/2024 08:05 Report Date: 09/25/2024 08:08 At the request of: MAGAN APEZ DO Procedure: US OB BPP w non-stress CLINICAL DATA: History of bleeding. Possible abruption. BIOPHYSICAL PROFILE: COMPARISON: None There is a single live intrauterine gestation in cephalic presentation.The reported gestational age is 28 weeks 5 days. The heart gdsbluzxuvtr751 beats per minute. FINDINGS: TONE: 1 or [...] Rahman M.D. 09/25/2024 8:08 AM Dictation Location: [place] [address] Electronically authenticated by: [id number] Y Date: 508:08 Dictated By: Laura Rahman M.D. Signed By:09/25/24 0810 DD/ 0808 TD/TT: Labor Relations Analyst: us Magan Paez DO [facility] IMAGING Final Result * US OB CERVICAL LENGTH (09/21/2024 2:40 PM EDT) Anatomical Region Laterality Modality Other 09/21/2024 2:40 PM EDT Narrative 09/21/2024 2:43 [place] [address] Ultrasound Report Signed Patient: MICHI SERRANO MR#: [id number] : 1995 Acct:[id number] Age/Sex: 29 / F ADM Date: 09/21/24 Loc: US Attending Dr: Magan Paez D.O. Ordering Physician: Magan Paez D.O. Date of Service: 09/21/24 Procedure(s): US OB cervical length Accession Number(s): [id number] cc: ARMEN SÁNCHEZ ; Magan Paez D.O. The [address] [address] Patient Name: MICHI SERRANO MRN: [id number]:[id number] date: 1995 Sex: F Assigned Patient Location: US Current Patient Location: US Accession/Order Number: [id number] Exam Date: 09/21/2024 14:39 Report Date: 09/21/2024 [...] Jr., D.O. 09/21/2024 2:40 PM Dictation Location: [place] [address] Electronically authenticated by: [id number] Y Date: 09/21/2024 14:40 Dictated By: Hugo Atkins M.D. Signed By: 09/21/24 1443 DD/ 1440 TD/TT: Labor Relations Analyst: Procedure Note Radiology, Radiologist, MD - 09/21/2024 The [place] [id number] Ultrasound Report Signed Patient: MICHI SERRANO KMR#: [id number] : 1995Acct:[id number] Age/Sex: 29 / FADM Date: 09/21/24 Loc: US Attending Dr: Magan Paez D.O. Ordering Physician: Magan Paez D.O. Date of Service: 09/21/24 Procedure(s): US OB cervical length Accession Number(s): [id number] cc: ARMEN SÁNCHEZ ; Magan Paez D.O. The [place] [id number] Patient Name: MICHI SERRANO MRN: [facility]:[id number] date: 1995 Sex: F Assigned Patient Location: Current Patient Location: Accession/Order Number: [id number] Exam Date: 09/21/2024 14:39 Report Date: 09/21/2024 [...] funneling. Impression dictated by: Hugo Atkins Jr., D.ONorberto 09/21/2024 2:40 PM Dictation Location: [place] [address] Electronically authenticated by: [id number] Y Date: 4:40 Dictated By: Hugo Atkins M.D. Signed By:09/21/24 1443 DD/ 1440 TD/TT: Labor Relations Analyst: us Magan Paez DO [facility] IMAG[facility] Final Result * GLUCOSE 1 HOUR (08/30/2024 11:28 AM EDT) GLUCOSE 1 HOUR 66 <130 mg/dL TB 08/30/2024 11:2 8 AM EDT 08/30/2024 11:29 AM EDT Narrative CLINISYNC - 08/30/2024 12:05 PM EDT Magan Paez DO LAB BLOOD ORDERABLES Final Resul t [facility] * (ABNORMAL) ALL CBC WITH AUTO DIFF (08/30/2024 11:28 AM EDT) TB WBC 11.8(H) 4.0 - 11.0 10 3/uL [...] 11:34 AM EDT us Magan Paez DO CLINDENISSE Final Result [facility] * Colposcopy (08/14/2024 2:19 PM EDT) Magan [...] yes Educational handouts given: no us Magan Paez DO IN CLINIC/BEDSIDE ORDERABLES Fin al Result * RECURRENT VAGINITIS (HTRX) (08/01/2024 2:52 PM EDT) [facility] ATOPOBIUM VAGINAE 0.000 19.961 - 24.689 ppm 08/02/2024 7:05 AM EDT [facility] ATOPOBIUM VAGINAE Not Detected 19.961 - 24.689 ppm 08/02/2024 7:05 AM EDT [facility] BVAB 2,3 (BACTERIAL VAGINOSIS ASSOCIATED BACTERIA 2, 3); MOBILUNCUS SPP 0.000 19.961 - 24.689 ppm 08/02/2024 7:05 AM EDT [facility] BVAB 2,3 (BACTERIAL VAGINOSIS ASSOCIATED BACTERIA 2, 3); MOBILUNCUS SPP Not Detected 19.961 - 24.689 ppm 08/02/2024 7:05 AM EDT [facility] ILIANA ALBICANS, PARAPSILOSIS, TROPICALIS 0.000 19.961 - 30.770 ppm 08/02/2024 7:05 AM EDT [facility] ILIANA ALBICANS, PARAPSILOSIS, TROPICALIS Not Detected 19.961 - 30.770 ppm 08/02/2024 7:05 AM EDT [facility] ILIANA GLABRATA 0.000 23.000 - 32.138 ppm 08/02/2024 7:05 AM EDT [facility] [place] ILIANA GLABRATA Not Detected 23.000 - 32.138 ppm 08/02/2024 7:05 AM EDT [facility] [place] ILIANA KRUSEI 0.000 23.000 - 32.271 ppm 08/02/2024 7:05 AM EDT [facility] [place] ILIANA KRUSEI Not Detected 23.000 - 32.271 ppm 08/02/2024 7:05 AM EDT [facility] [place] CHLAMYDIA TRACHOMATIS 0.000 23.000 - 31.467 ppm 08/02/2024 7:05 AM EDT [facility] CHLAMYDIA TRACHOMATIS Not Detected 23.000 - 31.467 ppm 08/02/2024 7:05 AM EDT [facility] GARDNERELLA VAGINALIS 0.000 19.961 - 24.689 ppm 08/02/2024 7:05 AM EDT [facility] GARDNERELLA VAGINALIS Not Detected 19.961 - 24.689 ppm 08/02/2024 7:05 AM EDT [facility] [place] MEGASPHAERA (TYPES 1, 2) 0.000 19.961 - 24.689 ppm 08/02/2024 7:05 AM EDT [facility] MEGASPHAERA (TYPES 1, 2) Not Detected 19.961 - 24.689 ppm 08/02/2024 7:05 AM EDT [facility] NEISSERIA GONORRHOEAE 0.000 23.000 - 32.117 ppm 08/02/2024 7:05 AM EDT [facility] NEISSERIA GONORRHOEAE Not Detected 23.000 - 32.117 ppm 08/02/2024 7:05 AM EDT [facility] TRICHOMONAS VAGINALIS 0.000 23.000 - 32.119 ppm 08/02/2024 7:05 AM EDT [facility] TRICHOMONAS VAGINALIS Not Detected 23.000 - 32.119 ppm 08/02/2024 7:05 AM EDT [facility] MYCOPLASMA GENITALIUM 0.000 19.961 - 24.689 ppm 08/02/2024 7:05 AM EDT [facility] MYCOPLASMA GENITALIUM Not Detected 19.961 - 24.689 ppm 08/02/2024 7:05 AM EDT [facility] Tissue 08/01/2024 2:52 PM EDT 08/02/2024 2:14 AM EDT us Magan Paez DO LAB BLOOD ORDERABLES Final Resul t [facility] [address] [place] [address] * US OB 14+ weeks anatomy scan (07/28/2024 1:13 PM EDT) Anatomical Region Laterality Modality Body Ultrasound 07/28/2024 1:13 PM EDT Narrative 07/28/2024 1:13 PM EDT THIS EXAM WAS PERFORMED AT [facility] NAME: JEREMY BORDEN : 1995 SEX: F Accession Number: [id number] ORDERING PHYSICIAN: CHRISSIE SNOW REFERRING PHYSICIAN: MAGAN PAEZ Coding ----- --------- Procedures 39646: Ultrasound, uterus, real time with image documentation, and maternal evaluation plus detailed anatomic examination, transabdominal approach;single or first gestation 98791: Transvaginal Ultrasound (OB) 19600: Amniocentesis; diagnostic Indication ----- --------- Screening for Anatomic Survey, Screening for cervical length, Abnormal finding on screening of mother-MOB + FOB CF carriers, Depression, Anxiety History ----- --------- OB History 1. Para 0 [id number] Current ----- --------- Cell free DNA low [...] EFW (oz) 14 oz EFW by: Hadlock (IIL-[id number]-FL) Extended Tibia 28.6 mm 20w 3d 55% Dank Gl Accountant 6.6 mm CM 5.3 mm 57% Nicolaides [...] view. RVOT view. LVOT view. 3-vessel view. 4-syoikl-elvxrzt view. Situs. Bicaval view. Ductal arch view. [...] ----- --------- Performing Physicain: Suresh Valencia MD, .Associate Partner: Damaris Johnson RDMS Invasive Procedures ----- --------- [...] rates noted. Recommendations ----- --------- Please see M documentation from today. The patient is scheduled [...] - 07/28/2024 THIS EXAM WAS PERFORMED AT [facility] NAME: JEREMY BORDEN : 1995 SEX: F Accession Number: [id number] ORDERING PHYSICIAN: CHRISSIE SNOW REFERRING PHYSICIAN: MAGAN PAEZ Coding ----- --------- Procedures 61624: Ultrasound, uterus, real time with imagedocumentation, and maternal evaluation plus detailed anatomic examination, transabdominalapproach;single or first gestation 61174: Transvaginal Ultrasound (OB) 44511: Amniocentesis; diagnostic Indication ----- --------- Screening for Anatomic Survey, Screening for cervical length, Abnormalfinding on screening of mother-MOB + FOB CF carriers, Depression, Anxiety History ----- --------- OB History 1. Para 0 [id number] Current ----- --------- Cell free DNA low [...] EFW (oz) 14 oz EFW by: Hadlock ([id number]-[id number]-FL) Extended Tibia 28.6 mm 20w 3d 55% Dank Gl Accountant 6.6 mm CM 5.3 mm 57% Nicolaides [...] 4-chamber view. RVOT view. LVOT view. 3-vessel view.9-hqsxep-yohqole view. Situs. Bicaval view. Ductal arch view. [...] ----- --------- Performing Physicain: Suresh Valencia MD, .Associate Partner: Damaris Johnson RDMS Invasive Procedures ----- --------- [...] rates noted. Recommendations ----- --------- Please see [facility] documentation from today. The patient is scheduled in four week(s) to complete anatomic survey. Subsequent follow up or other follow up as clinically determined byprimary OB provider unless otherwise specified by [facility]. Results forwarded to ordering provider so they can follow up with thepatient as necessary. The copy-to physician of this order is MAGAN Aguirre The ordering physician of this order is CHRISSIE Velázquez us Magan Paez DO IMG OB US PROCEDURES Final Resul t from Last 3 Months Insurance [facility] Care Teams Gang Leader Relationship Specialty Start Date End Date Armen Sánchez MD PCP - General Family Medicine 05/05/24
--- OUTSIDE RECORDS SUMMARY | 2024-10-09 17:00 | XMS_ITS | Encounter Summary ---
Author Organization [facility] Address [address] [place] [address] Care Team Providers Care Cook Helper Preserves Name Role Phone Emi Bronson [facility] Unavailable + [phone] Armen Sánchez MD Primary Care Provider + [phone] Encounter Details Date Type Department Care Team (Late st Contact Info) Description 12/27/2023 Abstract [facility] [address] [place] [phone] Emi Bronson, [facility] [address] [place] [address] Social History Tobacco Use Types Packs/Day Years [...] EDT Routine [facility] OB [address] [place] [phone] Jocy Ruby PA [address] [facility] [address] [place] [address] documented as of this encounter Visit Diagnoses Not on filedocumented in this encounter Care Teams Cook Helper Preserves Relationship Specialty Start Date End Date Armen Sánchez MD [address] [place] [address] PCP - General Family Medicine 05/05/24 Emi Bronson [facility] [address] [place] [address] Behavioral Health 04/12/24 09/26/24 documented as of this encounter
--- OUTSIDE RECORDS SUMMARY | 2024-10-09 17:00 | XMS_ITS | Encounter Summary ---
Author Organization [facility] Address [address] [place] [address] Care Team Providers Care Docking Saw Operator Name Role Phone Emi Bronson [facility] Unavailable + [phone] Armen Sánchez MD Primary Care Provider + [phone] Encounter Details Date Type Department Care Team (Late st Contact Info) Description 05/24/2024 Abstract [facility] OB [address] [place] [address] Curtis Paez [address] [place], [place] [id number] Social History Tobacco Use Types Packs/Day Years [...] Description 10/17/2024 2:20 PM EDT Routine [facility] [address] [place] [address] Jocy Ruby PA [address] [place] [address] [place] [address] documented as of this encounter Visit Diagnoses Not on filedocumented in this encounter Care Teams Docking Saw Operator Relationship Specialty Start Date End Date Armen Sánchez MD [address] [place] [address] PCP - General Family Medicine 05/05/24 Emi Bronson, [facility] [address] [place] [address] Behavioral Health 04/12/24 09/26/24 documented as of this encounter
--- OUTSIDE RECORDS SUMMARY | 2024-10-09 17:00 | XMS_ITS | Encounter Summary ---
Author Organization [facility] [employer] s tem Address [facility] [place]-[id number] [address] [place] [address] Care Team Providers Care Ingot Weigher Name Role Phone MasoodArmen silverman Primary Care Provider Encounter Details Date Type Department Care Team (Late st Contact Info) Description 05/01/2024 Orders Only [facility] Internal [facility] - Family Medicine [address] [place] [address] Ref Prov, [place] [address] Social History Tobacco Use Types Packs/Day Years Used Date Smoking Tobacco: Every Day Cigarettes 1 13.2 Started: 08/01/2011 Smokeless Tobacco: Never Alcohol Use Standard Drinks/Week Comments Not Currently 0 (1 standard drink = 0.6 oz pur e alcohol) [facility] Utilities Answer Date Recorded In the past 12 months has [employer], gas, oil, or water company threatened to [...] any clubs o r organizations such as voodoo groups, unions, fraternal or athletic groups, or [...] Answer Date Recorded Total Score 0 10/27/2023 [facility] - Occupational [...] Recorded Do you need help finding a [facility] and/or a training program? No [...] Info) Description 10/12/2024 3:15 PM EDT Appointment [facility] US Imaging [address] [place] [address] 10/19/2024 2:00 PM EDT Initial [facility] Services - Women's Services [address] [place] [address] Rain Bond, [address] [facility] [place] [place] [address] [address] 10/19/2024 3:30 PM EDT Appointment [facility] US Imaging [address] [place] [address] 10/30/2024 11:00 AM EDT Appointment [facility] US Imaging [address] [place] [address] 10/30/2024 11:30 AM EDT Office Visit Maternal- Medicine at [facility] [address] [place] [address] Angela Perez MD [address] [address] documented as of this encounter Procedures Procedure [...] documented as of this encounter Care Teams Ingot Weigher Relationship Specialty Start Date End Date Armen Sánchez DO [address] [facility] [place], [place] [address] PCP - General Family Medicine 08/25/23 documented as of this encounter
--- OUTSIDE RECORDS SUMMARY | 2024-10-09 17:00 | XMS_ITS | Encounter Summary ---
Author Organization [facility] [employer] s tem Address [facility] [place][id number] [address] [place] [address] Care Team Providers Care Body And Frame Man Name Role Phone MasoodArmen silverman Primary Care Provider Encounter Details Date Type Department Care Team (Late st Contact Info) Description 07/19/2024 Orders Only [facility] Internal Medicine - Family Medicine [address] [place] [address] Ref Prov, [place] [address] Social History Tobacco Use Types Packs/Day Years Used Date Smoking Tobacco: Every Day Cigarettes 1 13.2 Started: 08/01/2011 Smokeless Tobacco: Never Alcohol Use Standard Drinks/Week Comments Not Currently 0 (1 standard drink = 0.6 oz pur e alcohol) [facility] Utilities Answer Date Recorded In the past 12 months has [employer], gas, oil, or water company threatened to [...] often do you attend chur ch or holiness services? Never 01/27/2024 Do you belong to any clubs o r organizations such as uatsdin groups, unions, fraternal or athletic groups, or [...] Recorded Do you need help finding a doctors medical centeral career center and/or a training [...] Info) Description 10/12/2024 3:15 PM EDT Appointment [facility] US Imaging [address] [place] [address] 10/19/2024 2:00 PM EDT [facility] [address] [place] [address] Rain Bond, [address] [facility] [place] [address] [address] 10/19/2024 3:30 PM EDT Appointment [facility] US Imaging [address] [place] [address] 10/30/2024 11:00 AM EDT Appointment [facility] US Imaging [address] [place] [address] 10/30/2024 11:30 AM EDT Office Visit Maternal- Medicine at [facility] [address] [place] [address] Angela Perez MD [address] [facility], [address] [place] [address] documented as of this encounter Procedures Procedure [...] documented as of this encounter Care Teams Body And Frame Man Relationship Specialty Start Date End Date Armen Sánchez DO [address] [facility], [place] [address] PCP - General Family Medicine 08/25/23 documented as of this encounter
--- OUTSIDE RECORDS SUMMARY | 2024-10-09 17:00 | XMS_ITS | Encounter Summary ---
Author Organization [facility] Address [address] [place] [address] Care Team Providers Care Cleaning Attendant Name Role Phone Emi Bronson Arpit [facility] Unavailable + [phone] Armen Sánchez MD Primary Care Provider + [phone] Encounter Details Date Type Department Care Team (Late st Contact Info) Description 08/10/2023 Abstract [facility] [address] [place] [address] Curtis Paez DO [address] [facility] [place] [address] Social History Tobacco Use Types Packs/[place] [...] [place] [address] Jocy Ruby PA [address] [place] [address] documented as of this encounter Visit Diagnoses Not on filedocumented in this encounter Care Teams Cleaning Attendant Relationship Specialty Start Date End Date Armen Sánchez MD [address] [place] [address] PCP - General Family Medicine 05/05/24 Emi Bronson [facility] [address] [place] [address] Behavioral Health 04/12/24 09/26/24 documented as of this encounter
--- OUTSIDE RECORDS SUMMARY | 2024-10-09 17:00 | XMS_ITS | Encounter Summary ---
Author Organization [facility] Address [address] [place] [address] Care Team Providers Care Historical Society Director Name Role Phone Emi Bronson Arpit [facility] Unavailable + [phone] Armen Sánchez MD Primary Care Provider + [phone] Encounter Details Date Type Department Care Team (Late st Contact Info) Description 05/09/2024 Abstract [facility] OB [address] [place] [address] Curtis Paez [address] [place] [place], [place] [id number] Social History Tobacco Use Types Packs/Day Years [...] Description 10/17/2024 2:20 PM EDT Routine [facility] [address] [place] [address] Jocy Ruby PA [address] [place] [address] [place] [address] documented as of this encounter Visit Diagnoses Not on filedocumented in this encounter Care Teams Historical Society Director Relationship Specialty Start Date End Date Armen Sánchez MD [address] [place] [address] PCP - General Family Medicine 05/05/24 Emi Bronson, [facility] [address] [place] [address] Behavioral Health 04/12/24 09/26/24 documented as of this encounter
--- OUTSIDE RECORDS SUMMARY | 2024-10-09 17:00 | XMS_ITS | Encounter Summary ---
Author Organization [facility] tem Address [facility][id number] [address] [place] [address] Care Team Providers Care Front Office Associate Name Role Phone Princess Armen Steele DO Primary Care Provider Encounter Details Date Type Department Care Team (Late st Contact Info) Description 06/16/2024 Orders Only Maternal- Medicine at [facility] [address] [place] [address] Curtis Paez, DO [address] [facility] [place] [address] Social History Tobacco Use Types Packs/Day Years Used Date Smoking Tobacco: Every Day Cigarettes 1 13.2 Started: 08/01/2011 Smokeless Tobacco: Never Alcohol Use Standard Drinks/Week Comments Not Currently 0 (1 standard drink = 0.6 oz pur e alcohol) [facility] Utilities Answer Date Recorded In the past 12 months has [employer], gas, oil, or water [employer] threatened to shut off services in your [...] you attend [facility] or jehovah's witness services? Never 01/27/2024 Do you belong to any clubs o r organizations such as jainism groups, unions, fraternal or athletic groups, or [...] Answer Date Recorded Total Score 0 10/27/2023 [facility] Occupat ional Health - Occupational [...] Recorded Do you need help finding a [facility] career center and/or a training program? [...] Info) Description 10/12/2024 3:15 PM EDT Appointment [facility] US Imaging [address] [place] [address] 10/19/2024 2:00 PM EDT [facility] [address] [place] [address] Rain Bond, [address] [facility] [place] [address] [address] 10/19/2024 3:30 PM EDT Appointment [facility] US Imaging [address] [place] [address] 10/30/2024 11:00 AM EDT Appointment [facility] US Imaging [address] [place] [address] 10/30/2024 11:30 AM EDT Office Visit Maternal- Medicine at [facility] [address] [place] [address] Angela Perez MD [address], [address] [place] [address] documented as of this encounter Procedures Procedure Name Priority Date/Time Associated Diagnosis Comments UNLISTED LAB TEST Routine 06/08/2024 1:25 PM EST UNLISTED LAB TEST Routine 05/23/2024 1:26 PM EST documented in this encounter Results * Unlisted Lab Test (06/08/2024 1:25 PM EST) us Curtis R Jeannine DO LAB BLOOD ORDERABLES Final Resu lt Performing Organization Address City/[facility] Hospital/ZIP Co de Phone Number MANUALLY TRANSCRIBED RESULTS * Unlisted Lab Test (05/23/2024 1:26 PM EST) us Curtis R Jeannine DO LAB BLOOD ORDERABLES Final Resu lt Performing Organization Address [facility] Co de Phone Number MANUALLY TRANSCRIBED RESULTS documented in this encounter Visit Diagnoses Not on filedocumented in this encounter Additional Health Concerns Assessment Noted Time PHQ-9 Depression Total Score: 0 10/27/19 10:25 AM EDT A Body Mass Index follow-up plan has been documented for the patient 08/10/2023 10:14 AM EDT documented as of this encounter Care Teams Front Office Associate Relationship Specialty Start Date End Date Armen Sánchez DO [address] [facility], [place] [address] PCP - General Family Medicine 08/25/23 documented as of this encounter
--- OUTSIDE RECORDS SUMMARY | 2024-10-09 17:00 | XMS_ITS | Encounter Summary ---
Author Organization [employer] tem Address [facility] [place]-[id number] [address] [place] [address] Care Team Providers Care Forensic Economist Name Role Phone SepidehArmen tristan Cedric [place] Primary Care Provider Encounter Details Date Type Department Care Team (Latest Contact Info) Description 10/05/2024 Travel Social History Tobacco Use Types Packs/Day Years Used Date Smoking Tobacco: Every Day Cigarettes 1 13.2 Started: 08/01/2011 Smokeless Tobacco: Never Alcohol Use Standard Drinks/Week Comments Not Currently 0 (1 standard drink = 0.6 oz pur e alcohol) [facility] Utilities Answer Date Recorded In the [...] Answer Date Recorded Total Score 0 10/27/2023 [facility] [place] of Occupat ional Health - Occupational Stress [...] Do you need help finding a [facility] career center and/or a training program? No [...] Info) Description 10/12/2024 3:15 PM EDT Appointment [facility] US Imaging [address] [place] [address] 10/19/2024 2:00 PM EDT [facility] [address] [place] [address] Rain Bond [address] [facility] [place] [address] [address] 10/19/2024 3:30 PM EDT Appointment [facility] US Imaging [address] [place] [address] 10/30/2024 11:00 AM EDT Appointment [facility] US Imaging [address] [place] [address] 10/30/2024 11:30 AM EDT Office Visit Maternal- Medicine at [facility] [address] [place] [address] Angela Perez MD [address] [facility] [address], [address] [place] [address] documented as of this encounter Visit Diagnoses Not on filedocumented in this encounter Additional Health Concerns Assessment Noted Time PHQ-9 Depression Total Score: 0 10/27/19 10:25 AM EDT A Body Mass Index follow-up plan has been documented for the patient 08/10/2023 10:14 AM EDT documented as of this encounter Care Teams Forensic Economist Relationship Specialty Start Date End Date Armen Sánchez DO [address] [facility] [place] [address] PCP - General Family Medicine 08/25/23 documented as of this encounter
[2024-10-09 17:52] VITALS: BP 137/71; PULSE 96
== END 2024-10-09 17:57 | disposition home or self-care (01) ==
LOC: FBCO 16:58 → FBC 17:21
PROVIDERS: PCP Family Medicine; Visit Provider Obstetrics & Gynecology
DX: O43.899 Other placental disorders, unspecified trimester (principal)
CPT/HCPCS: 59025

== ENCOUNTER 2024-10-12 13:41 | Outpatient (OUT) | payer OTHER, SELFPAY ==
--- NOTE | 2024-10-12 | US_ITS ---
[address] [address] Patient Name: MICHI LUNA MRN: [id number] date: 1995 Sex: F Assigned Patient Location: [facility] Current Patient Location: [facility] Accession/Order Number: [id number] Exam Date: 10/12/2024 20:55 Report Date: 10/12/2024 20:55 At the request of: MAGAN TRISTAN DO Procedure: US OB BPP w non-stress Ultrasound biophysical profile HISTORY: Cystic fibrosis carrier Adequate breathing movement, gross body movement, tone and amniotic fluid volume for total score of 8 out of 8. The amniotic fluid index is 17.0cm within normal limits. The heart rate 142 bpm. US/US OB BPP w non-stress IMPRESSION: Adequate ultrasound biophysical profile Impression dictated by: Man Schumacher M.D. 10/12/2024 8:55 PM Dictation Location: [place] [address] Electronically authenticated by: [id number] Y Date: 10/12/2024 20:55
[2024-10-12 20:02] VITALS: BP 124/73; PULSE 80
== END 2024-10-12 20:30 | disposition home or self-care (01) ==
LOC: US 13:43 → FBC 19:08
PROVIDERS: PCP Family Medicine; Visit Provider Obstetrics & Gynecology
DX: O26.893 Other specified pregnancy related conditions, third trimester (principal); O09.899 Supervision of other high risk pregnancies, unspecified trimester; Z3A.31 31 weeks gestation of pregnancy; Z14.1 Cystic fibrosis carrier
CPT/HCPCS: 76818

== ENCOUNTER 2024-10-16 15:59 | Outpatient (OUT) | payer OTHER, SELFPAY ==
[2024-10-16 16:06] VITALS: BP 124/73; PULSE 88
== END 2024-10-16 16:34 | disposition home or self-care (01) ==
LOC: FBCO 15:59 → FBC 16:02
PROVIDERS: PCP Family Medicine; Visit Provider Obstetrics & Gynecology
DX: O43.893 Other placental disorders, third trimester (principal); Z3A.31 31 weeks gestation of pregnancy
CPT/HCPCS: 59025

== ENCOUNTER 2024-10-19 10:53 | Outpatient (OUT) | payer OTHER, SELFPAY ==
--- NOTE | 2024-10-19 10:57 | US_ITS ---
[facility] [place] [id number] Patient Name: MICHI LUNA MRN: [id number] date: 1995 Sex: F Assigned Patient Location: Current Patient Location: US Accession/Order Number: [id number] Exam Date: 10/19/2024 11:25 Report Date: 10/19/2024 11:27 At the request of: MAGAN TRISTAN DO Procedure: US OB BPP w non-stress BIOPHYSICAL PROFILE: CLINICAL INFORMATION: Cystic fibrosis carrier COMPARISON: 10/12/2024 There is a single live intrauterine gestation in cephalic presentation. The reported gestational age is 32 weeks 2 days. The heart rate measures 144 beats per minute. FINDINGS: TONE: 1 or more episodes of activity extension and flexion of extremity or opening and closing of the hand [Y] 2/2 GROSS BODY MOVEMENTS: 3 or more discrete body or limb movements [Y] 2/2 BREATHING MOVEMENTS: 1 or more episodes of breathing lasting at least 30 seconds [Y] 2/2 NAYE: A single deepest vertical pocket of amniotic fluid greater than 2 cm [Y] 2/2 NAYE: 12.1 cm. This is in low-normal range Total score: 8/8 US/ OB BPP w non-stress IMPRESSION: NORMAL BIOPHYSICAL PROFILE Impression dictated by: Laura Rahman M.D. 10/19/2024 11:27 AM Dictation Location: [place] [address] Electronically authenticated by: [id number] Y Date: 10/19/2024 11:27
--- OUTSIDE RECORDS SUMMARY | 2024-10-19 11:08 | XMS_ITS | CCD ---
Demographics Address [address] [place] [address] Home Phone Mobile Phone Preferred Language en Marital Status Single Jewish Affiliation Unknown Race White Ethnic Group Not or Lati no Author Organization [facility] Inform ion Partnership [facility] Care Team Providers Care Utilities And Maintenance Supervisor Name Role Phone SHEYCLAIRE Referring Unavailable FURLONGARMEN Referring Unavailable FURLONG, ARMEN Steele Primary Care Unavailable HAJA OSULLIVAN Admitting Unavailable HAJA OSULLIVAN Attending Unavailable MASOODLOARMEN TRISTAN Primary Care Unavailable HAJA OSULLIVAN Attending Unavailable HAJA OSULLIVAN Referring Unavailable FURLONG, ARMEN Steele Primary Care Unavailable Unavailable Primary Care Provider Unavailjob e Armen Street DO Primary Care Provider [phone] Masoodlong DOArmen Primary Care Provider [phone] [facility], Emi K Unavailable Armen Street MD Primary Care Provider [phone] Unavailable Primary Care Provider Armen Mcgregor MD Primary Care Provider MasoodloArmen tristan DO Primary Care Provider [address] Attending Unavailable MASOODLONGARMEN Referring Unavailable FURLONG, ARMEN Steele Primary Care Unavailable MASOODLONGARMEN Attending Unavailable MASOODLONGARMEN Referring Unavailable FURLONG, ARMEN Steele Primary Care Unavailable MASOODLONGARMEN Attending Unavailable MASOODLONGARMEN Referring Unavailable FURLONG, ARMEN Steele Primary Care Unavailable CURTIS PAEZ Referring Unavailable MASOODLOARMEN TRISTAN Primary Care Unavailable VICTORINO CHRISTIE Admitting Unavailable VICTORINO CHRISTIE Attending Unavailable ARMEN [address] Primary Care Unavailable ZULLY VALLEJO Attending Unavailable MASOODLONGARMEN Primary Care Unavailable MASOODLONGARMEN Primary Care Unavailable Armen Street MD Primary Care Provider [phone] JEANNINE, CURTIS R Referring Unavailable FURLONG, ARMEN Cedric Primary Care Unavailable JEANNINE, CURTIS R Referring Unavailable FURLONG, ARMEN Cedric Primary Care Unavailable KATY, LYNDSEY Attending Unavailable JEANNINE, CURTIS R Referring Unavailable FURLONG, ARMEN Steele Primary Care Unavailable KATY, LYNDSEY Referring Unavailable FURLONG, ARMEN Cedric Primary Care Unavailable RASHIDA ALVAREZ Attending Unavailable FURLONG, ARMEN G Referring Unavailable FURLONG, ARMEN Cedric Primary Care Unavailable KATY, LYNDSEY Attending Unavailable JEANNINE, CURTIS R Referring Unavailable FURLONG, ARMEN Cedric Primary Care Unavailable EDIL SNOW Attending Unavailable JEANNINE, CURTIS R Referring Unavailable FURLONG, ARMEN Cedric Primary Care Unavailable JEANNINE, CURTIS R Referring Unavailable FURLONG, ARMEN Cedric Primary Care Unavailable JEANNINE, CURTIS R Referring Unavailable FURLONG, ARMEN Steele Primary Care Unavailable Esther Maldonado APRN Attending Provider FurArmen silverman DO Primary Care Provider Allergies Allergy Classification Reported Allergen(s) Allergy Type [...] 08/15/2018 Active FLUoxetine 20 mg oral capsule (20 sources) Serotonin Reuptake Inhibitor Start: 01-27-2024 take [...] adjustment) magnesium oxide 400 mg oral tablet (20 sources) Start: 05-15-2024 End: 06-14-2024 take 1 [...] 19/iron ps,heme/folic/dha ( MV & MIN ORAL) (15 sources) take 1 tablet by mouth once in the morning PNV 19/iron ps,heme/folic/dha ( MV & MIN ORAL) Take 1 tablet by mouth in the morning. Active take 1 tablet by mouth once allison y PNV 19/iron ps,heme/folic/dha ( MV & MIN ORAL) Take 1 tablet by mouth once daily. Active polyethylene glycol 3350 58932 mg powder for oral solution (20 sources) [...] in 24 hours. 21 day ethinyl estradiol 0.970119 mg/hr / etonogestrel 0.005 mg/hr vaginal system [...] as per instructions 24 tablet 08/26/2023 Active 24 hr venlafaxine 37.5 mg extended release oral capsule (16 sources) Serotonin and Norepinephrine Reuptake Inhibitor Start: 10-17-2024 End: 10-17-2024 take 1 capsule by mouth every twenty-four hours Venlafaxine 37.5 mg capsule,extended release 24hr Discontinued MG PO October 17, 2024 12:00am October 17, 2024 12:12pm Start: 09-18-2024 End: 09-18-2025 take 1 capsule by mouth once daily venlafaxine XR (Effexor XR) 37.5 MG 24 hr capsule Indications: Anxiety, generalized Take 1 capsule (37.5 mg) by mouth Daily Do not crush or chew. 30 capsule 5 09/18/2024 09/18/2025 Active take 1 capsule by mo ut every twenty-four hours in the morning venlafaxine XR (EFFEXOR XR) 37.5 mg 24 hr capsule Take 1 capsule (37.5 mg total) by mouth in the morning. Active Problems Active Problems Problem Classification Problem Date Documented Date Episodic/Chronic Administrative/socia l admission (1 source) Counseling, unspecified; Translations: [Counseling, [...] Onset: 08-16-2018 09-27-2023 Chronic Other complications of ; puerperium affecting management of mother (7 sources) finding; Translations: [Maternal care for other (suspected) abnormality and damage, gastrointestinal anomalies, not applicable or unspecified] Onset: 09-30-2024 09-30-2024 Episodic Other complications of (1 source) Obesity complicating , unspecified trimester; Translations: [Obesity complicating , unspecified trimester] Onset: 10-05-2024 Chronic Other complications of (14 sources) Previous operation to cervix affecting ; Translations: [Maternal care for other abnormalities of cervix, unspecified trimester] Onset: 09-21-2024 06-08-2024 Episodic Other complications of (9 sources) Abnormal findings on screening of mother; Translations: [Abnormal chromosomal and genetic finding on screening of mother] 06-20-2024 Episodic Other complications of (20 sources) High risk ; Translations: [Supervision of other high risk pregnancies, unspecified trimester] Onset: 06-12-2024 06-12-2024 Episodic Other complications of (10 sources) Anomaly of placenta; 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, unspecified, third trimester] Onset: 09-21-2024 09-21-2024 Episodic Other complications of (1 source) Supervision of high risk , unspecified, unspecified trimester; Translations: [Supervision of high risk , unspecified, unspecified trimester] Onset: 10-05-2024 Episodic Other female genital disorders (2 sources) [...] nutritional; endocrine; and metabolic disorders (1 source) Other obesity due to excess calories; Translations: [Other obesity due to excess calories] Onset: 09-27-2023 Chronic Other nutritional; endocrine; and metabolic disorders (1 source) Body mass index (BMI) 31.0-31.9, adult; Translations: [Body mass index (BMI) 31.0-31.9, adult] Onset: 09-27-2023 Chronic Other and delivery including normal (20 sources) test positive; Translations: [Encounter for test, result positive] Onset: 10-03-2024 04-18-2024 Episodic Residual codes; unclassified (2 sources) Gestation period, 9 weeks; Translations: [9 weeks gestation of ] 05-09-2024 Episodic Residual codes; unclassified (6 sources) History of loop electrosurgical excision procedure; Translations: [Other specified postprocedural states] Onset: 10-17-2024 05-09-2024 Episodic Residual codes; unclassified (2 sources) Gestation period, 13 weeks; Translations: [13 weeks gestation of ] 06-08-2024 Episodic Residual codes; unclassified (20 sources) Carrier of cystic fibrosis gene mutation; [...] 08-30-2024 Episodic Residual codes; unclassified (2 sources) Gestation period, 27 weeks; Translations: [27 weeks gestation of ] 09-18-2024 Episodic Residual codes; unclassified (8 sources) Gestation period, 29 weeks; Translations: [29 weeks gestation of ] Onset: 10-03-2024 09-30-2024 Episodic Residual codes; unclassified (2 sources) Gestation period, 30 weeks; Translations: [30 weeks gestation of ] 10-03-2024 Episodic Residual codes; unclassified (2 sources) Gestation period, 32 weeks; Translations: [32 weeks gestation of ] 10-17-2024 Episodic Sexually transmitted infections (not HIV or hepatitis) (2 sources) Chlamydia trachomatis infection; Translations: [Sexually transmitted chlamydial infection of other sites] 08-01-2024 Episodic Unclassified (2 sources) PM MYCHART PREG BODY CHANGES Onset: 06-20-2024 06-20-2024 Unclassified (1 source) Weight Check Onset: 10-27-2023 Unclassified (1 source) Annual Exam Onset: 09-27-2023 Viral infection (11 sources) Herpes simplex; Translations: [Herpesviral infection, unspecified] Onset: 10-03-2024 10-03-2024 Episodic Past or Other Problems Problem Classification Problem [...] Onset: 09-27-2023 10-27-2023 Episodic Other complications of (2 sources) Abnormal chromosomal and genetic finding on screening of mother; Translations: [Abnormal chromosomal and genetic finding on screening of mother] Onset: 06-20-2024 Episodic Other nutritional; endocrine; and metabolic disorders (20 sources) Overweight; Translations: [Overweight] Onset: 01-27-2024 01-27-2024 Episodic Other nutritional; endocrine; and metabolic disorders (1 source) Overweight; Translations: [Overweight] Onset: 01-27-2024 Episodic Other screening for suspected conditions (not mental disorders or infectious disease) (1 source) Encounter for other specified screening; Translations: [Encounter for other specified screening] Onset: 06-20-2024 Episodic Other skin disorders (1 source) Skin lesion; Translations: [Disorder of the skin and subcutaneous tissue, unspecified] 09-27-2023 Episodic Other upper respiratory infections (2 sources) Sore throat symptom; Translations: [Acute pharyngitis, unspecified] Onset: 08-16-2018 Resolved: 09-15-2018 09-15-2018 Episodic Residual codes; unclassified (2 sources) Cystic fibrosis carrier; Translations: [Cystic fibrosis carrier] Onset: 06-16-2024 Episodic Superficial injury; contusion (2 sources) Contusion of right upper arm, initial encounter; Translations: [Contusion of unspecified part of upper limb] Onset: 04-27-2024 04-27-2024 Episodic Unclassified (20 sources) Onset: 08-10-2023 08-10-2023 Unclassified (3 sources) finding 10-13-2024 Results Test Name Value Interpretation Reference Range Facility No Panel InformationOrdered By: Esther Maldonado on 10-17-2024 Quick Strep (POC) [facility] US OB BPP W NON-STRESS on 10-12-2024 [place] [address] Ultrasound Report Signed Patient: SAPNA SERRANO MR#: [id number] : 1995 Acct:[id number] Age/Sex: 29 / F ADM Date: 10/12/24 Loc: [facility] 250-[address]: Curtis Paez D.O. Ordering Physician: Curtis Paez D.O. Date of Service: 10/12/24 Procedure(s): US OB BPP w non-stress Accession Number(s): [id number] cc: [address] ; Curtis Paez D.O. The [address] [id number] Patient Name: SAPNA SERRANO MRN: [facility]:[id number] date: 1995 Sex: F Assigned Patient Location: [facility] Current Patient Location: [facility] Accession/Order Number: [id number] Exam Date: 10/12/2024 20:55 Report Date: 10/12/2024 20:55 At the request of: CURTIS PAEZ DO Procedure: US OB BPP w non-stress Ultrasound biophysical profile HISTORY: Cystic fibrosis carrier Adequate breathing movement, gross body movement, tone and amniotic fluid volume for total score of 8 out of 8. The amniotic fluid index is 17.0cm within normal limits. The heart rate 142 bpm. US/US OB BPP w non-stress IMPRESSION: Adequate ultrasound biophysical profile Impression dictated by: Man Schumacher M.D. 10/12/2024 8:55 PM Dictation Location: [place] [address] Electronically authenticated by: [id number] Y Date: 10/12/2024 20:55 Dictated By: Man Schumacher D.O. Signed By: 10/12/242057 DD/ 54 TD/TT: Bi Application Developer: [facility] Radiology, Radiologist, MD - 10/13/2024 The [place] [id number] Ultrasound Report Signed Patient: SAPNA SERRANO MR#: [id number] : 1995 Acct:[id number] Age/Sex: 29 / F ADM Date: 10/12/24 Loc: [facility] 250-[address]: Curtis Paez D.O. Ordering Physician: Curtis Paez D.O. Date of Service: 10/12/24 Procedure(s): US OB BPP w non-stress Accession Number(s): [id number] cc: [address] Corey D.O. [address] [address] Patient Name: SAPNA SERRANO MRN: [facility]:[id number] date: 1995 Sex: F Assigned Patient Location: [facility] Current Patient Location: [facility] Accession/Order Number: [id number] Exam Date: 10/12/2024 20:55 Report Date: 10/12/2024 20:55 At the request of: CURTIS PAEZ DO Procedure: US OB BPP w non-stress Ultrasound biophysical profile HISTORY: Cystic fibrosis carrier Adequate breathing movement, gross body movement, tone and amniotic fluid volume for total score of 8 out of 8. The amniotic fluid index is 17.0cm within normal limits. The heart rate 142 bpm. US/US OB BPP w non-stress IMPRESSION: Adequate ultrasound biophysical profile Impression dictated by: Man Schumacher M.D. 10/12/2024 8:55 PM [facility]ict[facility] Electronically authenticated by: [id number] Y Date: 10/12/2024 20:55 Dictated By: Man Schumacher D.O. Signed By: 10/12/242057 DD/ 54 TD/TT: Bi Application Developer: [facility] Radiology Study observation (narrative) [facility] US OB BPP W NON-STRESS Ordered By: Radiologist Radiology on 10-12-2024 [facility] [employer] Work Phone: US OB PLACENTAon 10-04-2024 [place] [address] Ultrasound Report Signed Patient: SAPNA SERRANO MR#: [id number] : 1995 Acct:[id number] Age/Sex: 29 / F ADM Date: 09/24/24 Loc: [facility] Attending Dr: Curtis Paez D.O. Ordering Physician: Curtis Paez D.O. Date of Service: 09/24/24 Procedure(s): US OB placenta Accession Number(s): [id number] cc: [address] Corey D.O. The [address] [address] Patient Name: SAPNA SERRANO MRN: [facility]:[id number] date: 1995 Sex: F Assigned Patient Location: [facility] Current Patient Location: Accession/Order Number: [id number] Exam Date: 10/04/2024 09:16 Report Date: 10/04/2024 09:50 At the request of: CURTIS PAEZ DO Procedure: US OB placenta ULTRASOUND [...] Rahman M.D. 10/04/2024 9:50 AM Dictation Location: [place] [address] Electronically authenticated by: [id number] Y Date: 10/04/2024 09:50 Dictated By: Laura Rahman M.D. Signed By: 10/04/24 0952 DD/ 0950 TD/TT: Bi Application Developer: [facility] Radiology, Radiologist, MD - 10/04/2024 [place] [address] Ultrasound Report Signed Patient: SAPNA SERRANO MR#: [id number] : 1995 Acct:[id number] Age/Sex: 29 / F ADM Date: 09/24/24 Loc: [facility] Attending Dr: Curtis Paez D.O. Ordering Physician: Curtis Paez D.O. Date of Service: 09/24/24 Procedure(s): US OB placenta Accession Number(s): [id number] cc: [address] ; Curtis Paez D.O. [place] [id number] Patient Name: SAPNA SERRANO MRN: [facility]:[id number] date: 1995 Sex: F Assigned Patient Location: [facility] Current Patient Location: US Accession/Order Number: [id number] Exam Date: 10/04/2024 09:16 Report Date: 10/04/2024 09:50 At the request of: CURTIS PAEZ DO Procedure: US OB placenta ULTRASOUND [...] Rahman M.D. 10/04/2024 9:50 AM Dictation Location: [place] [address] Electronically authenticated by: [id number] Y Date: 10/04/2024 09:50 Dictated By: Laura Rahman M.D. Signed By: 10/04/24 0952 DD/ TD/TT: Bi Application Developer: [facility] Radiology Study observation (narrative) [facility] US OB PLACENTAOrdered By: Ra recio Radiology on 10-04-2024 [facility] [employer] Work Phone: Urinalysis macro (dipstick) panel (U)on 10-03-2024 Bilirubin, UA Negative Negative - 4(70) +++ mg/dL [facility] Blood, UA Negative Negative - 50 Koby/mcL [facility] Clarity, UA Clear [facility] Color, UA Yellow [facility] Glucose, UA Negative Negative - 1999(110) ++++ mg/dL [facility] Interpretation and review of laboratory results Abnormal [facility] Ketones, UA Negative Negative - 160(16) ++++ mg/dL [facility] Leukocytes, UA Negative Negative - 500+++ Danny/mcL [facility] Nitrite, UA Negative Negative - Positive [facility] pH, UA 7.5 5 - 9 [facility] Protein, UA Trace Negative - 1999(20) ++++ mg/dL [facility] Spec Grav, UA 1.02 1 - 1.03 [facility] Urobilinogen, UA 0.2 0.2 - 12 mg/dL [facility] US OB BPP W NON-STRESS on 09-25-2024 [place] [address] Ultrasound Report Signed Patient: SAPNA SERRANO MR#: [id number] : 1995 Acct:[id number] Age/Sex: 29 / F ADM Date: Loc: [facility] [address]: Curtis Paez D.O. Ordering Physician: Curtis Paez D.O. Date of Service: 09/24/24 Procedure(s): US OB BPP w non-stress Accession Number(s): [id number] cc: [address] Corey D.O. [place] [address] Patient Name: SAPNA SERRANO MRN: [facility]:[id number] date: 1995 Sex: F Assigned Patient Location: [facility] Current Patient Location: [facility] Accession/Order Number: [id number] Exam Date: 09/25/2024 08:05 Report Date: 09/25/2024 08:08 At the request of: CURTIS PAEZ DO Procedure: US OB BPP w non-stress CLINICAL DATA: History of bleeding. Possible abruption. BIOPHYSICAL PROFILE: COMPARISON: None There is a single live intrauterine gestation in cephalic presentation. The reported gestational age is 28 weeks 5 days. The heart rate [id number] beats per minute. FINDINGS: TONE: 1 or [...] Rahman M.D. 09/25/2024 8:08 AM Dictation Location: [place] [address] Electronically authenticated by: [id number] Y Date: 09/25/2024 08:08 Dictated By: Laura Rahman M.D. Signed By: 09/25/24 0810 DD/ 0808 TD/TT: Bi Application Developer: [facility] Radiology, Radiologist, MD - 09/25/2024 [place] [address] Ultrasound Report Signed Patient: SAPNA SERRANO MR#: [id number] : 1995 Acct:[id number] Age/Sex: 29 / F ADM Date: Loc: [facility] 251- Attending Dr: Curtis Paez D.O. Ordering Physician: Curtis Paez D.O. Date of Service: 09/24/24 Procedure(s): US OB BPP w non-stress Accession Number(s): [id number] cc: [address] ; Curtis Paez D.O. The [place] [address] Patient Name: SAPNA SERRANO MRN: [facility]:[id number] date: 1995 Sex: F Assigned Patient Location: [facility] Current Patient Location: [facility] Accession/Order Number: [id number] Exam Date: 09/25/2024 08:05 Report Date: 09/25/2024 08:08 At the request of: CURTIS PAEZ DO Procedure: US OB BPP w non-stress CLINICAL DATA: History of bleeding. Possible abruption. BIOPHYSICAL PROFILE: COMPARISON: None There is a single live intrauterine gestation in cephalic presentation. The reported gestational age is 28 weeks 5 days. The heart rate [id number] beats per minute. FINDINGS: TONE: 1 or [...] Rahman M.D. 09/25/2024 8:08 AM Dictation Location: [place] [address] Electronically authenticated by: [id number] Y Date: 09/25/2024 08:08 Dictated By: Laura Rahman M.D. Signed By: 09/25/24 0810 DD/ 0808 TD/TT: Bi Application Developer: [facility] [employer] Radiology Study observation (narrative) [facility] US OB BPP W NON-STRESS Ordered By: Radiologist Radiology on 09-25-2024 [facility] [employer] Work Phone: US OB CERVICAL LENGTHon 09-03 [place] [address] Ultrasound Report Signed Patient: SAPNA SERRANO MR#: [id number] : 1995 Acct:[id number] Age/Sex: 29 / F ADM Date: 09/21/24 Loc: US Attending Dr: Curtis Paez D.O. Ordering Physician: Curtis Paez D.O. Date of Service: 09/21/24 Procedure(s): US OB cervical length Accession Number(s): [id number] cc: [address] ; Curtis Paez D.O. The [address] [address] Patient Name: SAPNA SERRANO MRN: [facility]:[id number] date: 1995 Sex: F Assigned Patient Location: US Current Patient Location: US Accession/Order Number: [id number] Exam Date: 09/21/2024 14:39 Report Date: 09/21/2024 [...] Jr., D.O. 09/21/2024 2:40 PM Dictation Location: [place] [address] Electronically authenticated by: [id number] Y Date: 09/21/2024 14:40 Dictated By: Hugo Atkins M.D. Signed By: 09/21/24 1443 DD/ 1440 TD/TT: Bi Application Developer: [facility] Radiology, Radiologist, MD - 09/21/[address] [address] Ultrasound Report Signed Patient: SAPNA SERRANO MR#: [id number] : 1995 Acct:[id number] Age/Sex: 29 / F ADM Date: 09/21/24 Loc: US Attending Dr: Curtis Paez D.O. Ordering Physician: Curtis Paez D.O. Date of Service: 09/21/24 Procedure(s): US OB cervical length Accession Number(s): [id number] cc: [address] ; Curtis Paez D.O. [address] [id number] Patient Name: SAPNA SERRANO MRN: [facility]:[id number] date: 1995 Sex: F Assigned Patient Location: US Current Patient Location: US Accession/Order Number: [id number] Exam Date: 09/21/2024 14:39 Report Date: 09/21/2024 [...] Jr., D.O. 09/21/2024 2:40 PM Dictation Location: [place] [address] Electronically authenticated by: [id number] Y Date: 09/21/2024 14:40 Dictated By: Hugo Atkins M.D. Signed By: 09/21/24 144 DD/ 144 TD/TT: Bi Application Developer: [facility] Radiology Study observation (narrative) [facility] US OB CERVICAL LENGTHOrdered By: Radiologist Radiology on 09-21-2024 [facility] [employer] Work Phone: US OB PLACENTAon 09-21-2024 [place] [id number] Ultrasound Report Signed Patient: SAPNA SERRANO MR#: [id number] : 1995 Acct:[id number] Age/Sex: 29 / F ADM Date: 09/21/24 Loc: US Attending Dr: Curtis Paez D.O. Ordering Physician: Curtis Paez D.O. Date of Service: 09/21/24 Procedure(s): US OB placenta Accession Number(s): [id number] cc: [address],Curtis D.O. The [place] [id number] Patient Name: SAPNA SERRANO MRN: [facility]:[id number] date: 1995 Sex: F Assigned Patient Location: US Current Patient Location: Accession/Order Number: [id number] Exam Date: 09/21/2024 14:41 Report Date: 09/21/2024 [...] Jr., D.O. 09/21/2024 2:53 PM Dictation Location: [place] [address] Electronically authenticated by: [id number] Y Date: 09/21/2024 14:53 Dictated By: Hugo Atkins M.D. Signed By: 09/21/24 1456 DD/ 1453 TD/TT: Bi Application Developer: [facility] Radiology, Radiologist, MD - 09/21/2024 [place] [address] Ultrasound Report Signed Patient: SAPNA SERRANO MR#: [id number] : 1995 Acct:[id number] Age/Sex: 29 / F ADM Date: 09/21/24 Loc: US Attending Dr: uCrtis Paez D.O. Ordering Physician: Curtis Paez D.O. Date of Service: 09/21/24 Procedure(s): US OB placenta Accession Number(s): [id number] cc: [address] ; Curtis Paez D.O. [address] [address] Patient Name: SAPNA SERRANO MRN: [id number]:[id number] date: 1995 Sex: F Assigned Patient Location: US Current Patient Location: US Accession/Order Number: [id number] Exam Date: 09/21/2024 14:41 Report Date: 09/21/2024 14:53 At the request of: CURTIS PEAZ DO Procedure: US OB placenta Placenta ultrasound. [...] Jr., D.O. 09/21/2024 2:53 PM Dictation Location: [place] [address] Electronically authenticated by: [id number] Y Date: 09/21/2024 14:53 Dictated By: Hugo Atkins M.D. Signed By: 09/21/24 1456 DD/ 52 TD/TT: Bi Application Developer: [facility] Radiology Study observation (narrative) [facility] US OB PLACENTAOrdered By: Ra recio Radiology on 09-21-2024 [facility] [employer] Work Phone: US OB 1 OR [...] Eldon Maldonado MD 09/11/24 Final result Normal [facility] ALL CBC WITH AUTO DIFFon BASOPHILS ABSOLUTE AUTO 0.1 [facility] Basophils/100 WBC (Bld) 0.7 % 0.2 - 2.0 % [facility] Eosinophils/100 WBC (Bld) 1.8 % 0.9 - 7.0 % [facility] Erythrocyte distribution width (RBC) [Ratio] 13.7 % 11.0 - 15.0 % [facility] IMMATURE GRANULOCYTES ABS AUTO 0.06 High [facility] Immature granulocytes/100 WBC (Bld) 0.5 % 0.0 - 0.5 % [facility] Interpretation and review of laboratory results Abnormal [facility] LYMPHOCYTES ABSOLUTE AUTO 2.1 [facility] Lymphocytes/100 WBC (Bld) 17.6 % Low 20.5 - 60.0 % [facility] [facility] MCH (RBC) [Entitic mass] 30.1 pg 26.7 - 34.0 pg [facility] MCHC (RBC) [Mass/Vol] 33.5 g/dL 29.9 - 35.2 g/dL [facility] MCV (RBC) [Entitic vol] 89.8 fL 81.0 - 99.0 fL [facility] MONOCYTES ABSOLUTE AUTO 0.7 [facility] Monocytes/100 WBC (Bld) 6 % 1.7 - 12.0 % [facility] NEUTROPHILS ABSOLUTE AUTO 8.6 High [facility] Neutrophils/100 WBC (Bld) 73.4 % 43.0 - 75.0 % [facility] Platelet mean volume (Bld) [Entitic vol] 9.6 fL 9.5 - 13.5 fL [facility] EO # 0.2 [facility] TB PLT 272 [facility] TB RBC 4.32 [facility] TB WBC 11.8 High [facility] CBC without diffon Platelets (Bld) [#/Vol] 272 10*3/uL [facility] Rbc Mcv (Fl) By Automated Count 89.8 [facility] Glucose tolerance, 1 houron 08-30-2024 Glucose Tolerance Test 1 Hour 66 [facility] Laboratory - Hematology and Cell countson 08-30-2024 Hematocrit (Bld) [Volume fraction] 38.8 % [facility] e Hemoglobin (Bld) [Mass/Vol] 13 g/dL [facility] No Panel Informationon 08-30 [facility] e Colposcopyon 08-14-2024 Curtis Paez DO 08/15/2024 [...] paperwork completed: yes Educational handouts given: no [facility] SEND OUT TESTon 07-28-2024 SENT TO [facility] [employer] [phone] [facility] Comment on above: Result Comment: Miki ected on 07/28 AT 1418: Previously reported as [facility] [employer] [phone] SENT TO [facility] [employer] [phone] [place] [address] Comment on above: Result Comment: Miki ected on 07/28 AT 1418: Previously reported as [facility] [employer] [phone] SPECIMEN 3 MATERNAL AMNIOTIC FLUID 2 EDTA AND 1 SODIUM HEP MATERNAL Normal [facility] TEST NAME: KNOWN MUTATION ANALYSIS CFTR GENE Normal [facility] TEST NAME: MATERNAL CELL CONTAMINATION Normal [facility] TEST RESULT See separate report. View in OnBase or in EPIC. Normal [facility] AFP, SERUM, OPEN SPINA BIFID Aon 07-08-2024 AFP MOM 0.85 . [facility] [employer] AFP VALUE 28.4 ng/mL . [facility] [employer] COMMENT: Comment . [facility] [employer] Comment on above: Joan Shetty , Ph.D., [facility] Director References: Available Upon Request. Multiples Of Median Cutoffs For AFP Elevations Dupont 2.5 Black 2.8 IDD 2.0 Twins 4.5 Abbreviation Definitions IDD - Insulin Dep Diabetes OSBR - Open Spina Bifida Risk For further inquiries contact [employer] at [phone]. This test was developed and its performance characteristics determined by [employer]. It has not been cleared or approved by the Food and Drug Administration. Performed at: [facility] [employer] [address] [place], [place] [id number] Wildlife Rehabilitator: Sonja Esposito [facility], Phone: [phone] GEST. AGE ON COLLECTION DATE 17.1 . weeks [facility] GESTAT. AGE BASED ON LMP . [facility] Comment on above: Recalculations are n ot recommended when gestational dating by LMP and ultrasound are within 10 days. INSULIN DEP DIABETES No . [facility] INTERPRETATION Comment . [facility] Comment on [...] Customer Services to discuss available options. The [employer] recommends amniocentesis be offered to women age 35 and older. [age] [facility] MULTIPLE GESTATION No . [facility] H [facility] [place] [place] [id number] . [facility] RACE . [facility] e RESULTS Report . [facility] e TEST RESULTS: Negative . [facility] care WEIGHT 186 . lbs [facility] e N N LMP [id number] 17 N 1 Y 186 N N N N N White/ [facility] e RECURRENT VAGINITIS (HTRX)on 07-07-2024 ATOPOBIUM VAGINAE 0 [facility] ATOPOBIUM VAGINAE Not detected [facility] BVAB 2,3 (BACTERIAL VAGINOSIS ASSOCIATED BACTERIA 2, 3); MOBILUNCUS SPP 0 [facility] BVAB 2,3 (BACTERIAL VAGINOSIS ASSOCIATED BACTERIA 2, 3); MOBILUNCUS SPP Not detected [facility] ILIANA ALBICANS, PARAPSILOSIS, TROPICALIS 0 [facility] ILIANA ALBICANS, PARAPSILOSIS, TROPICALIS Not detected [facility] ILIANA GLABRATA [address] [facility] ILIANA GLABRATA Not detected [facility]althcare ILIANA KRUSEI 0 [facility] ILIANA KRUSEI Not detected [facility] CHLAMYDIA TRACHOMATIS 22.157 Abnormal [facility] CHLAMYDIA TRACHOMATIS Detected Abnormal [facility] ERMB, C; MEFA 26.913 Abnormal [facility] care ERMB, C; MEFA Detected Abnormal [facility] GARDNERELLA VAGINALIS 0 [facility] GARDNERELLA VAGINALIS Not detected N [facility] Interpretation and review of laboratory results Abnormal [facility] MEGASPHAERA (TYPES 1, 2) 0 [facility] MEGASPHAERA (TYPES 1, 2) Not detected [facility] MYCOPLASMA GENITALIUM 0 [facility] MYCOPLASMA GENITALIUM Not detected N [facility] NEISSERIA GONORRHOEAE 0 [facility] NEISSERIA GONORRHOEAE Not detected N [facility] TET B, TET M 23.614 Abnormal [facility] Healthc are TET B, TET M Detected Abnormal [facility] are TRICHOMONAS VAGINALIS 0 [facility] TRICHOMONAS VAGINALIS Not detected N [facility] AFP Single Marker Scrn, Mate rnal, Serumon 07-06-2024 Ms Alpha-Fetoprotein Negative [facility] C. trachomatis DNA ALLISON+probe Ql (Unsp spec)on 07-06-2024 Chlamydia Dna(Pcr) Detected [facility] Gonorrhoeae Dna(Pcr) Negative [facility] HM PAP SMEARon 07-06-2024 HM Pap smear LSIL [facility] High risk HPV w/genoon 07-06 Other High Risk Hpv Negative [facility] No Panel Informationon 07-06 [facility] Urinalysis macro (dipstick) panel (U)on 07-06-2024 Bilirubin, UA Negative Negative - 4(70) +++ mg/dL [facility] Blood, UA Negative Negative - 50 Koby/mcL [facility] Clarity, UA Clear [facility] Health[facility] re Color, UA Yellow [facility] Health[facility] e Glucose, UA Negative Negative - 1999(110) ++++ mg/dL [facility] Interpretation and review of laboratory results Abnormal [facility] Ketones, UA Positive Negative - 160(16) ++++ mg/dL [facility] Comment on above: trace Leukocytes, UA Trace Negative - 500+++ Danny/mcL [facility] Nitrite, UA Negative Negative - Positive [facility] pH, UA 6 5 - 9 [facility] Healthcar e Protein, UA Trace Negative - 1999(20) ++++ mg/dL [facility] Spec Grav, UA 1.03 1 - 1.03 [facility] Urobilinogen, UA 0.2 0.2 - 12 mg/dL [facility] [place] [address] Ultrasound Report Signed Patient: SAPNA SERRANO MR#: [id number] : 1995 Acct:[id number] Age/Sex: 28 / F ADM Date: 07/05/24 Loc: US Attending Dr: Curtis Paez D.O. Ordering Physician: Curtis Paez D.O. Date of Service: 07/05/24 Procedure(s): US OB cervical length Accession Number(s): [id number] cc: [address] Corey D.O. [address] [address] Patient Name: SAPNA SERRANO MRN: [facility]:[id number] date: 1995 Sex: F Assigned Patient Location: US Current Patient Location: US Accession/Order Number: [id number] Exam Date: 07/05/2024 08:08 Report Date: 07/05/2024 [...] Laura Rahman M.D.07/05/2024 8:10 AM Dictation Location: [place] [address] Electronically authenticated by: [id number] Y Date: 07/05/2024 08:10 Dictated By: Laura Rahman M.D. Signed By: 07/05/24 0813 DD/ 0810 TD/TT: Bi Application Developer: [facility] Radiology, Radiologist, - 07/05/2024 [place] [address] Ultrasound Report Signed Patient: SAPNA SERRANO MR#: [id number] : 1995 Acct:[id number] Age/Sex: 28 / F ADM Date: 07/05/24 Loc: US Attending Dr: Curtis Paez D.O. Ordering Physician: Curtis Paez D.O. Date of Service: 07/05/24 Procedure(s): US OB cervical length Accession Number(s): [id number] cc: [address] ; Curtis Paez D.O. The [place] [id number] Patient Name: SAPNA SERRANO MRN: [facility]:[id number] date: 1995 Sex: F Assigned Patient Location: Current Patient Location: Accession/Order Number: [id number] Exam Date: 07/05/2024 08:08 Report Date: 07/05/2024 [...] Laura Rahman M.D.07/05/2024 8:10 AM Dictation Location: [place] [address] Electronically authenticated by: [id number] Y Date: 07/05/2024 08:10 Dictated By: Laura Rahman M.D. Signed By: 07/05/2413 DD/ 9 TD/TT: Bi Application Developer: [facility] Radiology Study observation (narrative) [facility] US OB CERVICAL LENGTHOrdered By: Radiologist Radiology on 07-05-2024 [facility] [employer] [facility] Work Phone: Urinalysis macro (dipstick) panel (U)on 06-08-2024 Bilirubin, UA Negative Negative - 4(70) +++ mg/dL [facility] Blood, UA Negative Negative - 50 Koby/mcL [facility] Clarity, UA Clear [facility] re Color, UA Yellow [facility] Glucose, UA Negative Negative - 1999(110) ++++ mg/dL [facility] Interpretation and review of laboratory results Normal [facility] Ketones, UA Negative Negative - 160(16) ++++ mg/dL [facility] Leukocytes, UA Negative Negative - 500+++ Danny/mcL [facility] Nitrite, UA Negative Negative - Positive [facility] pH, UA 6 5 - 9 [facility] Protein, UA Negative Negative - 1999(20) ++++ mg/dL [facility] Spec Grav, UA 1.02 1 - 1.03 [facility] Urobilinogen, UA 0.2 0.2 - 12 mg/dL [facility] e ALL CBC WITH AUTO [...] fraction] 41.1 % 36.0 - 48.0 % [facility] Hemoglobin (Bld) [Mass/Vol] 13.5 g/dL 12.0 - 16.0 g/dL [facility] IMMATURE GRANULOCYTES ABS AUTO 0.05 High [facility] Immature granulocytes/100 WBC (Bld) 0.5 % 0.0 - 0.5 % [facility] Interpretation and review of laboratory results Abnormal [facility] LYMPHOCYTES ABSOLUTE AUTO 1.9 [facility] [...] vol] 9.6 fL 9.5 - 13.5 fL [facility] are [facility] EO # 0.2 [facility] TBH PLT 312 [facility] e TB RBC 4.56 [facility] TBH WBC 11.1 High [facility] BOX TESTon 05-17-2024 BOX TEST SENT OUT [facility] BOX1 [facility] Health[facility] e BOX2 05/17/24 [facility] BOX [facility] Drug Screen, Urineon 025 Amphetamine/Methamphet amine Negative [facility] Barbiturates Negative [facility] Benzodiazepines Negative [facility] Cocaine Metabolite Negative [facility] Methadone Negative [facility] Opiates Negative [facility] Oxycodone Negative [facility] Phencyclidine Negative [facility] Thc Marijuana, Urine Negative [facility] HBV surface Ag IA Qlon 05-17 Hepatitis B Surface Antigen Negative [facility] HCV Ab IA Qlon 05-17-2024 HCV Ab Ql (S) Non-Reactive [facility] HIV 1+2 Ab+HIV1 p24 Ag IA Ql on 05-17-2024 HIV 1&2 AB/AG Non-Reactive [facility] No Panel Informationon 05-17 [facility] Rubella IGG immune statuson 05-17-2024 Rubella immune IgG 1.54 [facility] Comment on above: IMMUNE T. pallidum IgG+IgM IA Ql (S )Ordered By: Lyric Sánchez on 05-17-2024 Syphilis Non-Reactive [facility] TSHon 05-17-2024 Thyroid Stimulating (3Rd Generation) Hormone/ Tsh 0.649 [facility] Type and screenon 05-17-2024 Abo/Rh(D) Positive [facility] HCG ( test) Ql (U)o n 05-05-2024 Interpretation and review of laboratory results Abnormal [facility] Preg Test, Ur Positive Negative [facility] Urinalysis macro (dipstick) panel (U)on 05-05-2024 Bilirubin, UA Negative Negative - 4(70) +++ mg/dL [facility] Blood, UA Negative Negative - 50 Koby/mcL [facility] Clarity, UA Clear [facility] re Color, UA Yellow [facility] e Glucose, UA Negative Negative - 2000(110) ++++ mg/dL [facility] Interpretation and review of laboratory results Abnormal [facility] Ketones, UA Negative Negative - 160(16) ++++ mg/dL [facility] Leukocytes, UA Negative Negative - 500+++ Danny/mcL [facility] Nitrite, UA Negative Negative - Positive [facility] pH, UA 7 5 - 9 [facility] e Protein, UA Positive Negative - 1999(20) ++++ mg/dL [facility] Comment on above: 30 Spec Grav, UA 1.02 1 - 1.03 [facility] Urobilinogen, UA 0.2 0.2 - 12 mg/dL [facility] e Basic Metabolic Panelon 04-06 Anion gap [Moles/Vol] 12 mmol/L 9 - 16 mmol/L [facility] Calcium [Mass/Vol] 9.1 mg/dL 8.6 - 10. 4 mg/dL [facility] Chloride [Moles/Vol] 102 mmol/L 98 - 10 7 mmol/L [facility] CO2 [Moles/Vol] 23 mmol/L 20 - 31 mmol/L [facility] Creatinine [Mass/Vol] 0.5 mg/dL 0.50 - 0.90 mg/dL [facility] Est, Glom Filt Rate - PINF [facility] Comment on above: These results are [...] mg/dL Low 74 - 99 mg/dL [facility] Interpretation and review of laboratory results Abnormal [facility] Potassium [Moles/Vol] 3.8 mmol/L 3.7 - 5.3 mmol/L [facility] Sodium [Moles/Vol] 137 mmol/L 136 - 145 mmol/L [facility] Urea nitrogen [Mass/Vol] 9 mg/dL 6 - 20 mg/dL [facility] Urea nitrogen/Creatinine [Mass ratio] 18 mg/mg 9 - 20 [facility] Basic Metabolic Profon 04-27 Anion gap [Moles/Vol] 12 mmol/L Normal 9-16 [facility] Comment on above: Performed By: #### B MP, CDP #### [facility] [address] [place], [place] [id number] Wildlife Rehabilitator: Gal Katz MD BUN/CRE Ratio 18 Normal 9-20 [facility] Comment on above: Performed By: #### B MP, CDP #### [facility] [address] [place], [place] [id number] Wildlife Rehabilitator: Gal Katz MD Calcium [Mass/Vol] 9.1 mg/dL Normal 8.6-10.4 [facility] Comment on above: Performed By: #### B JACQUELIN, CDP #### [facility] [address] [place], [place] [id number] Wildlife Rehabilitator: Gal Katz MD Chloride [Moles/Vol] 102 mmol/L Normal 98-107 [facility] Comment on above: Performed By: #### B MP, CDP #### [facility] [address] [place], [place] [id number] Wildlife Rehabilitator: Gal Katz MD CO2 [Moles/Vol] 23 mmol/L Normal 20-31 [facility] Comment on above: Performed By: #### B MP, CDP #### [facility] [address] [place], [place] [id number] Wildlife Rehabilitator: Gal Katz MD Creatinine [Mass/Vol] 0.5 mg/dL Normal 0.50-0.90 [facility] Comment on above: Performed By: #### B MP, CDP #### [facility] [address] [place], [place] [id number] Wildlife Rehabilitator: Gal Katz MD GFR/1.73 sq M.predicted among non-blacks MDRD (S/P/Bld) [Vol rate/Area] mL/min/{1.73_m2} Normal >60 [facility] Comment on above: Result Comment: These [...] Performed By: #### B JACQUELIN, CDP #### [facility] [address] [place] [address] [place], [place] [phone] Wildlife Rehabilitator: Gal Katz MD Glucose [Mass/Vol] 66 mg/dL Low 74-99 [facility] Comment on above: Performed By: #### B JACQUELIN, CDP #### [address] [place], [place] [address] Wildlife Rehabilitator: Gal Katz MD Potassium [Moles/Vol] 3.8 mmol/L Normal 3.7-5.3 [facility] Comment on above: Performed By: #### B JACQUELIN, CDP #### [address] [place], [place] [phone] Wildlife Rehabilitator: Gal Katz MD Sodium [Moles/Vol] 137 mmol/L Normal 136-145 [facility] Comment on above: Performed By: #### B JACQUELIN, CDP #### [address] [place], [place] [address] Wildlife Rehabilitator: Gal Katz MD Urea nitrogen [Mass/Vol] 9 mg/dL Normal 6-20 [facility] Comment on above: Performed By: #### B JACQUELIN, CDP #### [address] [place], [place] [address] Wildlife Rehabilitator: Gal Katz MD CBC with Auto Differentialon 04-27-2024 Basophils (Bld) [#/Vol] 0.09 10*3/uL [facility] Basophils/100 WBC (Bld) 1 % 0 - 2 % [facility] Eosinophils (Bld) [#/Vol] 0.17 10*3/uL [facility] Eosinophils/100 WBC (Bld) 2 % 1 - 4 % [facility] Erythrocyte distribution width (RBC) [Ratio] 12.7 % 11.8 - 14.4 % [facility] Hematocrit (Bld) [Volume fraction] 41.1 % 36.3 - 47.1 % [facility] Hemoglobin (Bld) [Mass/Vol] 14.0 g/dL 11.9 - 15.1 g/dL [facility] Immature granulocytes (Bld) [#/Vol] 0.04 10*3/uL [facility] Immature granulocytes/100 WBC (Bld) 0 % 0 [facility] Interpretation and review of laboratory results Abnormal [facility] Lymphocytes/100 WBC (Bld) 20 % Low 24 - 43 % [facility] Lymphocytes/100 WBC (Bld) 2.31 % [facility] MCH (RBC) [Entitic mass] 30.1 pg 25.2 - 33.5 pg [facility] MCHC (RBC) [Mass/Vol] 34.1 g/dL 28.4 - 34.8 g/dL [facility] MCV (RBC) [Entitic vol] 88.4 fL 82.6 - 102.[address] [facility] Monocytes/100 WBC (Bld) 8 % 3 - 12 % [facility] Monocytes/100 WBC (Bld) 0.90 % [facility] Neutrophils/100 WBC (Bld) 69 % High 36 - 65 % [facility] Nucleated RBC/100 WBC (Bld) [Ratio] 0.0 % 0.0 per 100 WBC [facility] Platelet mean volume (Bld) [Entitic vol] 9.4 fL 8.1 - 13.5 fL [facility] Platelets (Bld) [#/Vol] 327 10*3/uL [facility] RBC (Bld) [#/Vol] 4.65 10*6/uL 3.95 - 5.1 1 m/uL [facility] Segmented neutrophils/100 WBC (Bld) 8.09 % [facility] WBC other (Bld) [#/Vol] 11.6 High [facility] CBC with Diffon 04-27-2024 Abs. Basophil 0.09 k/uL Normal 0.00-0.20 [facility] Comment on above: Performed By: #### B JACQUELIN, CDP #### [facility] [address] [place] [address] [place] [address] Wildlife Rehabilitator: Gal Katz MD Abs.Imm.Granulocyte 0.04 k/uL Normal 0.00-0.30 [facility] Comment on above: Performed By: #### B JACQUELIN, CDP #### [address] [place] [address] Wildlife Rehabilitator: Gal Katz MD Abs.Neutrophil (Seg) 8.09 k/uL Normal 1.50-8.10 [facility] Comment on above: Performed By: #### B JACQUELIN, CDP #### [facility] [address] [place] [address] Dr. [place], [facility] Wildlife Rehabilitator: Gal Katz MD Basophils/100 WBC (Bld) 1 % Normal 0-2 [facility] Comment on above: Performed By: #### B JACQUELIN, CDP #### [address] [place] [address] Wildlife Rehabilitator: Gal Katz MD Eosinophils (Bld) [#/Vol] 0.17 10*3/uL Normal 0.00-0.44 [facility] Comment on above: Performed By: #### B MP, CDP #### [facility] [address] [place] [address] [place] [address] Wildlife Rehabilitator: Gal Katz MD Eosinophils/100 WBC (Bld) 2 % Normal 1-4 [facility] Comment on above: Performed By: #### B MP, CDP #### [facility] [address] [place], [place] [phone] Wildlife Rehabilitator: Gal Katz MD Erythrocyte distribution width (RBC) [Ratio] 12.7 % Normal 11.8-14.4 [facility] Comment on above: Performed By: #### B JACQUELIN, CDP #### [facility] [address] [place], [place] [phone] Wildlife Rehabilitator: Gal Katz MD Hematocrit (Bld) [Volume fraction] 41.1 % Normal 36.3-47.1 [facility] Comment on above: Performed By: #### B JACQUELIN, CDP #### [address] [place], [place] [address]83 Wildlife Rehabilitator: Gal Katz MD Hemoglobin (Bld) [Mass/Vol] 14.0 g/dL Normal 11.9-15.1 [facility] Comment on above: Performed By: #### B JACQUELIN, CDP #### [address] [place], [place] [address]83 Wildlife Rehabilitator: Gal Katz MD Immature granulocytes/100 WBC (Bld) 0 % Normal 0 [facility] Comment on above: Performed By: #### B JACQUELIN, CDP #### [address] [place], [place] 113[address]83 Wildlife Rehabilitator: Gal Katz MD Lymphocytes (Bld) [#/Vol] 2.31 10*3/uL Normal 1.10-3.70 [facility] Comment on above: Performed By: #### B JACQUELIN, CDP #### [facility] [address] [place] [address] Dr[place], [place] 657[address]83 Wildlife Rehabilitator: Gal Katz MD Lymphocytes/100 WBC (Bld) 20 % Low 24-43 [facility] Comment on above: Performed By: #### B JACQUELIN, CDP #### [address] [place], [place] [phone] Wildlife Rehabilitator: Gal Katz MD MCH (RBC) [Entitic mass] 30.1 pg Normal 25.2-33.5 [facility] Comment on above: Performed By: #### B JACQUELIN, CDP #### [facility] [address] [place], [place] [address]83 Wildlife Rehabilitator: Gal Katz MD MCHC (RBC) [Mass/Vol] 34.1 g/dL Normal 28.4-34.8 [facility] Comment on above: Performed By: #### B MP, CDP #### [facility] [address] [place], [facility] Wildlife Rehabilitator: Gal Katz MD MCV (RBC) [Entitic vol] 88.4 fL Normal 82.6-102.9 [facility] Comment on above: Performed By: #### B MP, CDP #### [address] [place], [facility] Wildlife Rehabilitator: Gal Katz MD Monocytes (Bld) [#/Vol] 0.90 10*3/uL Normal 0.10-1.20 [facility] Comment on above: Performed By: #### B MP, CDP #### [address] [place], [place] [address]83 Wildlife Rehabilitator: Gal Katz MD Monocytes/100 WBC (Bld) 8 % Normal 3-12 [facility] Comment on above: Performed By: #### B MP, CDP #### [facility] [address] [place], [facility]83 Wildlife Rehabilitator: Gal Katz MD Neutrophil (Seg) 69 % High 36-65 [facility] Comment on above: Performed By: #### B MP, CDP #### [facility] [address] [place], [place] 415[address]83 Wildlife Rehabilitator: Gal Katz MD NRBC Automated 0.0 per 100 WBC Normal 0.0 [facility] Comment on above: Performed By: #### B MP, CDP #### [facility] [address] [place], [facility]83 Wildlife Rehabilitator: Gal Katz MD Platelet mean volume (Bld) [Entitic vol] 9.4 fL Normal 8.1-13.5 [facility] Comment on above: Performed By: #### B MP, CDP #### [facility] [address] [place], [place] [address]83 Wildlife Rehabilitator: Gal Katz MD Platelets (Bld) [#/Vol] 327 10*3/uL Normal 138-453 [facility] Comment on above: Performed By: #### B MP, CDP #### [facility] [address] [place], [place] 35[address]383 Wildlife Rehabilitator: Gal Katz MD RBC (Bld) [#/Vol] 4.65 10*6/uL Normal 3.95-5.11 [facility] Comment on above: Performed By: #### B MP, CDP #### [facility] [address] [place] [address] [place], [place] [id number] Wildlife Rehabilitator: Gal Katz MD WBC (Bld) [#/Vol] 11.6 10*3/uL High 3.5-11.3 [facility] Comment on above: Performed By: #### B MP, CDP #### [address] [place], [place] [id number] Wildlife Rehabilitator: Gal Katz MD HCG, Quanton 04-27-2024 HCG, Quant 28663.0 mIU/mL High 0-7 [facility] Comment on above: Result Comment: Non-preg premeno <=5 Postmeno <=8 Male <=3 If HCG results do not concur with clinical observations, additional testing to confirm results is recommended. Performed By: #### B HCG #### [facility] [address] [place], [place] 833[address]83 Wildlife Rehabilitator: Gal Katz MD HCG, Quantitative, on 04-27-2024 [place] [address].0 m[IU]/mL High [facility] Comment on above: Non-preg premeno <=5 Postmeno <=8 Male <=3 If HCG results do not concur with clinical observations, additional testing to confirm results is recommended. Interpretation and review of laboratory results Abnormal [facility] TYPE AND SCREENon 04-27-2024 ABO and Rh group Nom (Bld) Blood group A Rh(D) positive [facility] Arm Band Number [id number] [facility] Blood Bank Sample Expiration 04/30/2024,2359 [facility] Blood group antibodies identified Nom Negative [facility] Type + Screenon 04-27-2024 Type + Screen Sample Expiration 04/30/2024,2359 Arm Band Number [id number] ABO/Rh(D) A POSITIVE Antibody Screen NEGATIVE Normal [facility] Comment on above: Performed By: #### T YS #### [facility] [address] [place], [place] [address]83 Wildlife Rehabilitator: Gal Katz MD US OB LESS THAN [...] Onur Mack MD 04/27/24 Final result Normal [facility] Single viable intrauterine with an estimated [...] gas No adnexal mass or free fluid. [facility] EXAMINATION: FIRST TRIMESTER OBSTETRIC [...] adnexal mass or free fluid is seen. [facility] Onur Mack MD - [...] No adnexal mass or free fluid. [facility] Radiology Study observation (narrative) [facility] US OB LESS THAN 14 WEEKS SIN GLE OR FIRST GESTATION W DOPPLEROrdered By: Onur Mack on 04-27-2024 [facility] Work Phone: Urinalysis w/ Microon 2024 Bacteria 1+ Abnormal NONE [facility] Comment on above: Performed By: #### U AMIC #### [facility] [address] [place] [address] Wildlife Rehabilitator: Gal Katz MD Bilirubin, SemiQt,Ur Negative Normal NEG [facility] Comment on above: Performed By: #### U AMIC #### [facility] [address] [place] [address] Wildlife Rehabilitator: Gal Katz MD Blood, Urine 1+ Abnormal NEG [facility] Comment on above: Performed By: #### U AMIC #### [facility] [address] [place] [address] Wildlife Rehabilitator: Gal Katz MD Clarity (U) SLIGHTLY CLOUDY Abnormal CLEAR [facility] Comment on above: Performed By: #### U AMIC #### [facility] [address] [place], [place] 6396283 Wildlife Rehabilitator: Gal Katz MD Color (U) Yellow Normal YEL [facility] Comment on above: Performed By: #### U AMIC #### [facility] [address] [place], [place] 884[address]83 Wildlife Rehabilitator: Gal Katz MD Epithelial cells LM Ql (Urine sed) 20 TO 50 Normal 0-25 [facility] Comment on above: Performed By: #### U AMIC #### [facility] [address] [place], [place] 70[address]83 Wildlife Rehabilitator: Gal Katz MD Glucose Ql (U) Negative Normal NEG [facility] Comment on above: Performed By: #### U AMIC #### [facility] [address] [place] [address] [place], [place] [id number] Wildlife Rehabilitator: Gal Katz MD Ketones Ql (U) Negative Normal NEG [facility] Comment on above: Performed By: #### U AMIC #### [address] [place], [place] [address]85683 Wildlife Rehabilitator: Gal Katz MD Leukocyte esterase Test strip Ql (U) Negative Normal NEG [facility] Comment on above: Performed By: #### U AMIC #### [facility] [address] [place], [place] [address]83 Wildlife Rehabilitator: Gal Katz MD Nitrite,Ur Negative Normal NEG [facility] Comment on above: Performed By: #### U AMIC #### [facility] [address] [place] [address] [place] [address] Wildlife Rehabilitator: Gal Katz MD PH,Ur 6.0 Normal 5.0-9.0 [facility] Comment on above: Performed By: #### U AMIC #### [facility] [address] [place] [address] [place], [place] 7[address]83 Wildlife Rehabilitator: Gal Katz MD Protein Ql (U) Negative Normal NEG [facility] Comment on above: Performed By: #### U AMIC #### [facility] [address] [place] [address] [place], [place] 1955183 Wildlife Rehabilitator: Gal Katz MD Spec. [place],Ur 1.025 High 1.010-1.020 [facility] Comment on above: Performed By: #### U AMIC #### [facility] [address] [place] [address] [place] [address] Wildlife Rehabilitator: Gal Katz MD Urine RBC's 2 TO 5 Normal 0-2 [facility] Comment on above: Performed By: #### U AMIC #### [address] [place], [place] 6035383 Wildlife Rehabilitator: Gal Katz MD Urine WBC's 2 TO 5 Normal 0-5 [facility] Comment on above: Performed By: #### U AMIC #### [facility] [address] [place] [address] [place], [place] 09[address]83 Wildlife Rehabilitator: Gal Katz MD Urobilinogen,Ur Normal Normal 0.0-1.0 [facility] Comment on above: Performed By: #### U AMIC #### [facility] [address] [place] [address] [place], [place] 3403883 Wildlife Rehabilitator: Gal Katz MD Urinalysis with Microscopico n 04-27-2024 Bacteria LM Ql (Urine sed) 1+ Abnormal None [facility] Bilirubin Ql (U) Negative NEGATIVE [facility] Clarity (U) SLIGHTLY CLOUDY Abnormal Clear [facility] Color (U) Yellow Yellow Bon [facility] Epithelial cells LM.HPF (Urine sed) [#/Area] 20 TO 50 [facility] Glucose Test strip (U) [Mass/Vol] Negative NEGATIVE mg/dL [facility] Hemoglobin Auto test strip Ql (U) 1+ Abnormal NEGATIVE [facility] Interpretation and review of laboratory results Abnormal [facility] Ketones (U) [Mass/Vol] Negative NEGAT ROSS mg/dL [facility] Leukocyte esterase Test strip Ql (U) Negative NEGATIVE [facility] Nitrite Ql (U) Negative NEGATIVE [facility] pH (U) 6.0 [pH] 5.0 - 9.0 [facility] Protein (U) [Mass/Vol] Negative NEGAT ROSS mg/dL [facility] RBC LM.HPF (Urine sed) [#/Area] 2 TO 5 [facility] Specific gravity (U) [Rel density] 1.025 High 1.010 - 1.020 [facility] Urobilinogen Qn (U) Normal 0.0 - 1. 0 EU/dL [facility] WBC LM.HPF (Urine sed) [#/Area] 2 TO 5 [facility] HCG ( test) Ql (U)o n 09-03-2023 Beta HCG ( test) Ql (U) Negative Normal NEG [facility] Comment on above: Performed By: #### 2 106-3 #### [facility] ([id number]) [address] [place] [address] Surgical Pathologyon 024 Surgical Pathology Normal [facility] Comment on above: Result Comment: [facility] [address] [place] [address] Surgical Pathology Consultation Patient Name:SAPNA SERRANO:1995 (Age: 28)Gender:FTaken:4Reported:4Physician(s):Haja Osullivan MD ([phone])Copy To: Rec. #:[id number]: #[id number] Final Pathologic Diagnosis Sigmoid colon biopsies: Unremarkable colonic mucosa. No colitis, granuloma or dysplasia identified. No microscopic colitis or inflammatory bowel disease identified. Report Electronically Signed Out ssi/09/07/2023Huber Hayes M.D. Interpretation performed at [facility], [address] [place] [address], License number: [id number]. Clinical History Rectal bleeding. Gross Description Received in formalin labeled FEUCHJorge, sigmoid BX are eight light cortes soft tissue bits, 0.2-0.4 cm.The specimen is filtered and entirely submitted in a single cassette. (1, ns, [id number],m3) DM. dm/09/04/2023O Specimen(s) Received Sigmoid biopsy Fee Codes(s): 1; 14147 CHLAMYDIA/GC PCR, FLon 08-09 CHLAMYDIA/GC PCR, FL [...] are dependent on adequate specimen collection. Normal [facility] Comment on above: Performed By: #### C GT #### [facility] ([id number]) [address] [place] [address], FIRST FLOOR [address] LAB ([id number]) [address] [place] [address], [address] [place] [address] Cytologyon 08-10-2023 Cytology Normal [facility] Comment on above: Result Comment: [facility] [address] [place] [address] Gynecologic Cytology Consultation Patient Name:SAPNA SERRANO:1995 (Age: 28)Gender:FTaken:4Reported:4Physician(s):Claire Kat M.D. ([phone])Copy To: Rec. #:[id number]: #[id number] Final Cytologic Interpretation ThinPrep Pap Test (Cervical): Satisfactory for evaluation. A transformation zone component is present. NEGATIVE FOR INTRAEPITHELIAL LESION OR MALIGNANCY. Shift in daniella suggestive of bacterial vaginosis. [facility]/26/2023 Interpretation performed at [employer] [employer], [address] [place] [id number], License number: [id number]. Electronically Signed Out By JOSUÉ Kimble(ASCP) Date of Last Menstrual Period: 07/13/23 Other Clinical Conditions: Previous abnormal pap Z01.419 [employer] exam wo/abn findings Source of Specimen ThinPrep Pap Test (Cervical) Thin Prep Pap (OBGYN HOSPITALIST PHYSICIAN) Fee Code(s): G0145 The Pap test is a screening test with an inherent, but low, probability of error. The Pap test is primarily effective for the diagnosis and prevention of squamous cell carcinoma. Regular screening is critical for prevention. ThinPrep liquid-based slides, which meet the Residential Property Consultant criteria for automated screening, have been screened by the ThinPrep Imaging System (as of 12/20/06) along with an additional manual rescreening by a associate professor of kinesiology and, if indicated, by a pathologist. HIGH RISK HPV W/GENOon 08-09 HPV 31+33+35+39+45+51+52+5 6+58+59+66+68 DNA ALLISON+probe Ql (Cvx) HPV SPECIMEN TYPE ThinPrep HPV 16 Negative (qualifier value) HPV 18 Negative (qualifier value) OTHER HIGH RISK HPV Negative (qualifier value) HPV types 31,33,35,39,45,52,56 ,58,59,66 and 68 DNA were undetectable. Normal [facility] Comment on above: Performed By: #### 7 1431-1 #### [facility] ([id number]) [address] [place] [address], FIRST FLOOR [place], [place] [address] [place] [address] LAB ([id number]) [address] [place] [address], [address] [place] [address] POCT , urineon 05-0 Beta HCG ( test) Ql (U) Negative [facility] Interpretation and review of laboratory results Normal [facility] Vital Signs Date Time Vital Sign Value Performing Clinician Facility 10-17-2024 14:37-0400 Body mass index (BMI) [Ratio] 36.05 kg/m2 Jocy Beloit PA Work Phone: [facility] 10-17-2024 14:37-0400 Body weight 95.25 kg Jocy Ramosryder YOUNG Work Phone: [facility] 10-17-2024 14:37-0400 Diastolic blood pressure 78 mm[Hg] Jocy Ruby HANNAH Work Phone: [facility] 10-17-2024 14:37-0400 Systolic blood pressure 124 mm[Hg] Jocy Ruby HANNAH Work Phone: [facility] 10-17-2024 12:13-0400 Body height 162.56 cm Armen Furlong DO Work Phone: [facility] 10-17-2024 12:13-0400 Body mass index (BMI) [Ratio] 35.9 kg/m2 Armen Furlong DO Work Phone: [facility] 10-17-2024 12:13-0400 Body temperature 98.9 [degF] Armen Furlong DO Work Phone: [facility] 10-17-2024 12:13-0400 Body weight 94.97 kg Armen Furlong DO Work Phone: [facility] 10-17-2024 12:13-0400 Diastolic blood pressure 82 mm[Hg] Armen Furlong DO Work Phone: [facility] 10-17-2024 12:13-0400 Heart rate 96 /min Armen Furlong DO Work Phone: [facility] 10-17-2024 12:13-0400 Respiratory rate 19 /min Armen Furlong DO Work Phone: [facility] 10-17-2024 12:13-0400 SaO2% (BldA) [Mass fraction] 98 % Armen Furlong DO Work Phone: [facility] 10-17-2024 12:13-0400 Systolic blood pressure 129 mm[Hg] Armen Correialong DO Work Phone: [facility] 10-03-2024 09:04-0400 Body height 162.6 cm Curtis Jeannine DO Work Phone: [facility] 10-03-2024 09:00-0400 Body mass index (BMI) [Ratio] 34.84 kg/m2 Curtis Jeannine DO Work Phone: [facility] 10-03-2024 09:00-0400 Body weight 92.08 kg Curtis Jeannine DO Work Phone: [facility] 10-03-2024 09:00-0400 Diastolic blood pressure 74 mm[Hg] Curtis Jeannine DO Work Phone: [facility] 10-03-2024 09:00-0400 Systolic blood pressure 122 mm[Hg] Curtis Jeannine DO Work Phone: [facility] 09-29-2024 16:29-0400 Diastolic blood pressure 72 mm[Hg] Edil Snow MD Work Phone: [facility] 09-29-2024 16:29-0400 Heart rate 83 /min Edil Snow MD Work Phone: [facility] 09-29-2024 16:29-0400 Systolic blood pressure 125 mm[Hg] Edil Snow MD Work Phone: [facility] 09-10-2024 23:35-0400 Diastolic blood pressure 73 mm[Hg] Victorino D'Abreau DO Work Phone: [facility] 09-10-2024 23:35-0400 Heart rate 75 /min Victorino D'Abreau DO Work Phone: [facility] 09-10-2024 23:35-0400 Systolic blood pressure 127 mm[Hg] Victorino D'Abreau DO Work Phone: [facility] 09-10-2024 22:22-0400 Body temperature 98.1 [degF] Victorino Gallowayeau DO Work Phone: [facility] 09-10-2024 22:22-0400 Respiratory rate 16 /min Victorino Gallowayeau DO Work Phone: [facility] 09-10-2024 22:22-0400 SaO2% (BldA) [Mass fraction] 98 % Victorino Gallowayeau DO Work Phone: [facility] 08-30-2024 10:38-0400 Body weight 88.91 kg Jocy YOUNG Work Phone: [facility] 08-30-2024 10:38-0400 Diastolic blood pressure 74 mm[Hg] Jocy YOUNG Work Phone: [facility] 08-30-2024 10:38-0400 Systolic blood pressure 130 mm[Hg] Jocy YOUNG Work Phone: [facility] 08-14-2024 10:57-0400 Body weight 87.91 kg Curtis Jeannine DO Work Phone: [facility] 08-14-2024 10:57-0400 Diastolic blood pressure 70 mm[Hg] Curtis Jeannine DO Work Phone: [facility] 08-14-2024 10:57-0400 Systolic blood pressure 116 mm[Hg] Curtis Jeannine DO Work Phone: [facility] 08-01-2024 13:31-0400 Body weight 85.19 kg Curtis Jeannine DO Work Phone: [facility] 08-01-2024 13:31-0400 Diastolic blood pressure 70 mm[Hg] Curtis Jeannine DO Work Phone: [facility] 08-01-2024 13:31-0400 Systolic blood pressure 120 mm[Hg] Curtis Jeannine DO Work Phone: [facility] 07-28-2024 09:19-0400 Body height 162.6 cm Lyndsey Burns MD Work Phone: [facility] 07-28-2024 09:19-0400 Body mass index (BMI) [Ratio] 32.63 kg/m2 Lyndsey Burns MD Work Phone: [facility] 07-28-2024 09:19-0400 Body weight 86.27 kg Lyndsey Burns MD Work Phone: [facility] 07-28-2024 09:19-0400 Diastolic blood pressure 72 mm[Hg] Lyndsey Burns MD Work Phone: [facility] 07-28-2024 09:19-0400 Heart rate 84 /min Lyndsey Burns MD Work Phone: [facility] 07-28-2024 09:19-0400 Systolic blood pressure 115 mm[Hg] Lyndsey Burns MD Work Phone: [facility] 07-06-2024 09:09-0400 Body weight 84.73 kg Jocy YOUNG Work Phone: [facility] 07-06-2024 09:09-0400 Diastolic blood pressure 72 mm[Hg] Jocy YOUNG Work Phone: [facility] 07-06-2024 09:09-0400 Systolic blood pressure 120 mm[Hg] Jocy YOUNG Work Phone: [facility] 06-08-2024 09:41-0500 Body weight 83.83 kg Curtis [...] System 05-05-2024 10:32-0500 Body weight 83.52 kg Nom Nurse [facility] 05-05-2024 10:32-0500 Diastolic blood pressure 78 mm[Hg] [facility] Nurse [facility] 05-05-2024 10:32-0500 Systolic blood pressure 120 mm[Hg] [facility] Nurse [facility] 04-27-2024 20:58-0500 SaO2% (BldA) [Mass fraction] 98 % Zully Vallejo MD Work Phone: [facility] 04-27-2024 17:53-0500 Body height 162.6 cm Zully Vallejo MD Work Phone: [facility] 04-27-2024 17:53-0500 Body mass index (BMI) [Ratio] 29.18 kg/m2 Zully Vallejo MD Work Phone: [facility] 04-27-2024 17:53-0500 Body temperature 98.8 [degF] Zully Vallejo MD Work Phone: [facility] 04-27-2024 17:53-0500 Body weight 77.11 kg Zully Vallejo MD Work Phone: [employer] 04-27-2024 17:53-0500 Diastolic blood pressure 93 mm[Hg] Zully Vallejo MD Work Phone: [employer] 04-27-2024 17:53-0500 Heart rate 90 /min Zully Vallejo MD Work Phone: [employer] 04-27-2024 17:53-0500 Respiratory rate 20 /min Zully Vallejo MD Work Phone: [facility] [employer] 04-27-2024 17:53-0500 Systolic blood pressure 150 mm[Hg] Zully Vallejo MD Work Phone: [facility] 01-27-2024 09:54-0400 Body height 162.6 cm Armen Furlong DO Work Phone: [facility] 01-27-2024 09:54-0400 Body mass index (BMI) [Ratio] 28.15 kg/m2 Armen Furlong DO Work Phone: [facility] 01-27-2024 09:54-0400 Body temperature 97.7 [degF] Armen Furlong DO Work Phone: [facility] 01-27-2024 09:54-0400 Body weight 74.39 kg Armen Furlong DO Work Phone: [facility] 01-27-2024 09:54-0400 Diastolic blood pressure 72 mm[Hg] Armen Furlong DO Work Phone: [facility] 01-27-2024 09:54-0400 Heart rate 89 /min Armen Furlong DO Work Phone: [facility] 01-27-2024 09:54-0400 Respiratory rate 18 /min Armen Furlong DO Work Phone: [facility] 01-27-2024 09:54-0400 SaO2% (BldA) [Mass fraction] 99 % Armen Furlong DO Work Phone: [facility] 01-27-2024 09:54-0400 Systolic blood pressure 118 mm[Hg] Armen Furlong DO Work Phone: [facility] 10-27-2023 10:26-0400 Body height 162.6 cm Armen Furlong DO Work Phone: [facility] 10-27-2023 10:26-0400 Body mass index (BMI) [Ratio] 29.94 kg/m2 Armen Furlong DO Work Phone: [facility] 10-27-2023 10:26-0400 Body temperature 97.81 [degF] Armen Furlong DO Work Phone: [facility] 10-27-2023 10:26-0400 Body weight 79.11 kg Armen Furlong DO Work Phone: [facility] 10-27-2023 10:26-0400 Diastolic blood pressure 60 mm[Hg] Armen Furlong DO Work Phone: [facility] 10-27-2023 10:26-0400 Heart rate 71 /min Armen Furlong DO Work Phone: [facility] 10-27-2023 10:26-0400 SaO2% (BldA) [Mass fraction] 99 % Armen Furlong DO Work Phone: [facility] 10-27-2023 10:26-0400 Systolic blood pressure 100 mm[Hg] Armen Furlong DO Work Phone: [facility] 09-27-2023 10:05-0400 Body height 162.6 cm Armen Furlong DO Work Phone: [facility] 09-27-2023 10:05-0400 Body mass index (BMI) [Ratio] 30.59 kg/m2 Armen Furlong DO Work Phone: [facility] 09-27-2023 10:05-0400 Body temperature 97.81 [degF] Armen Furlong DO Work Phone: [facility] 09-27-2023 10:05-0400 Body weight 80.83 kg Armen Furlong DO Work Phone: [facility] 09-27-2023 10:05-0400 Diastolic blood pressure 62 mm[Hg] Armen Furlong DO Work Phone: [facility] 09-27-2023 10:05-0400 Heart rate 81 /min Armen Furlong DO Work Phone: [facility] 09-27-2023 10:05-0400 SaO2% (BldA) [Mass fraction] 99 % Armen Furlong DO Work Phone: [facility] 09-27-2023 10:05-0400 Systolic blood pressure 100 mm[Hg] Armen Furlong DO Work Phone: [facility] 09-01-2023 11:00-0400 Body height 162.6 cm Pmh 1 [facility] 09-01-2023 11:00-0400 Body mass index (BMI) [Ratio] 31.58 kg/m2 Pmh 1 [facility] 09-01-2023 11:00-0400 Body weight 83.46 kg Pmh 1 [facility] 08-25-2023 09:33-0400 Body height 162.6 cm Armen Furlong DO Work Phone: [facility] 08-25-2023 09:33-0400 Body mass index (BMI) [Ratio] 31.72 kg/m2 Armen Furlong DO Work Phone: [facility] 08-25-2023 09:33-0400 Body temperature 98.71 [degF] Armen Furlong DO Work Phone: [facility] 08-25-2023 09:33-0400 Body weight 83.83 kg Armen Furlong DO Work Phone: [facility] 08-25-2023 09:33-0400 Diastolic blood pressure 62 mm[Hg] Armen Furlong DO Work Phone: [facility] 08-25-2023 09:33-0400 Heart rate 89 /min Armen Furlong DO Work Phone: [facility] 08-25-2023 09:33-0400 Respiratory rate 18 /min Armen Street DO Work Phone: [facility] 08-25-2023 09:33-0400 SaO2% (BldA) [Mass fraction] 98 % Armen Street DO Work Phone: [facility] 08-25-2023 09:33-0400 Systolic blood pressure 98 mm[Hg] Armen Street DO Work Phone: [facility] 08-10-2023 09:46-0400 Body height 162.6 cm Claire Kat MD Work Phone: [facility] 08-10-2023 09:46-0400 Body mass index (BMI) [Ratio] 33.3 kg/m2 Claire Kat MD Work Phone: [facility] 08-10-2023 09:46-0400 Body weight 88 kg Claire Kat MD Work Phone: [facility] 08-10-2023 09:46-0400 Diastolic blood pressure 70 mm[Hg] Claire Kat MD Work Phone: [facility] 08-10-2023 09:46-0400 Systolic blood pressure 128 mm[Hg] Claire Kat MD Work Phone: [facility] Encounters Encounter Date Encounter Type Care Provider Facility Start: 10-17-2024 End: 10-17-2024 flow sheet Jocy YOUNG Work Phone: [facility] Comment on above: Third trimester preg melissa ([facility]-H[facility]); 32 weeks gestation of ([facility]-HCC); H/O LEEP; Cystic fibrosis carrier, antepartum ([facility]-HCC); HSV infection Start: 10-17-2024 End: 10-17-2024 Bamboo flowsheet Jocy YOUNG Work Phone: [facility] Start: 10-17-2024 End: 10-17-2024 Bamboo flowsheet Jocy YOUNG Work Phone: [facility] Start: 10-17-2024 End: 10-17-[address] DO Work Phone: [facility] Work Phone: Start: 10-17-2024 End: 10-17-2024 Patient encounter procedure Esther Erica Bunch [employer] [facility] Work Phone: Start: 10-13-2024 End: 10-13-2024 Orders Only Miriam Joseph RN Maternal- Medicine at [facility] Comment on above: Abnormal genetic jono t during (Primary Dx); Maternal care for other (suspected) abnormality and damage, gastrointestinal anomalies, not applicable or unspecified; Cystic fibrosis carrier Start: 10-12-2024 End: 10-12-2024 ambulatory [facility] Start: 10-12-2024 End: 10-13-2024 Clinisync Result Encounter Curtis Jeannine DO Work Phone: [facility] Unsolicited Start: 10-12-2024 End: 10-13-2024 Clinisync Result Encounter Curtis Jeannine DO Work Phone: [facility] Unsolicited Start: 10-10-2024 End: 10-10-2024 Chart abstracting Lyric Sánchez RN [facility] Start: 10-05-2024 End: 10-05-2024 ambulatory CURTIS R [facility] Start: 10-04-2024 End: 10-04-2024 Clinisync Result Encounter Curtis Jeannine DO Work Phone: [facility] Unsolicited Start: 10-04-2024 End: 10-04-2024 Clinisync Result Encounter Curtis Jeannine DO Work Phone: [facility] Unsolicited Start: 10-03-2024 End: 10-03-2024 flow sheet Curtis Jeannine DO Work Phone: [facility] Comment on above: Third trimester preg melissa ([facility]); Cystic fibrosis carrier, antepartum ([facility]); Moderate episode of recurrent major depressive disorder (HCC); History of loop electrosurgical excision procedure (LEEP) of cervix affecting , antepartum ([facility]); HSV infection; 30 weeks gestation of ([facility]); Maternal care for other (suspected) abnormality and damage, gastrointestinal anomalies, not applicable or unspecified ([facility]) Start: 09-29-2024 End: 09-29-2024 ambulatory EDIL SNOW [facility] Start: 09-29-2024 End: 09-29-2024 Office outpatient visit 25 minutes Edil Snow MD Work Phone: Maternal- Medicine at [facility] Comment on above: 29 weeks gestation o f (Primary Dx); Cystic fibrosis carrier; Maternal care for other (suspected) abnormality and damage, gastrointestinal anomalies, not applicable or unspecified Start: 09-29-2024 End: 09-29-[address] [facility] Start: 09-25-2024 End: 09-25-2024 Clinisync Result Encounter Curtis Jeannine DO Work Phone: [facility] External Department Unsolicited Start: 09-25-2024 End: 09-25-2024 [...] Second trimester ([facility]); 27 weeks gestation of ([facility]); Cystic fibrosis carrier, antepartum ([facility]) Start: 09-18-2024 End: 09-18-2024 Bamboo flowsheet Curtis Jeannine DO Work Phone: [facility] Start: 09-18-2024 End: 09-18-2024 Bamboo flowsheet Curtis Jeannine DO Work Phone: [facility] Start: 09-15-2024 End: 09-15-2024 Telephone encounter Miriam Joseph RN Maternal- Medicine at [facility] Start: 09-10-2024 End: 09-11-2024 ambulatory [facility] Start: 09-10-2024 End: 09-11-2024 Subsequent hospital visit by physician Victorino Christie DO Work Phone: [facility] Labor and Delivery Start: 09-10-2024 Emergency department patient visit [facility] Start: 09-07-2024 End: 09-07-2024 Office outpatient new 45 minutes Rashida Alvarez MD Work Phone: [facility] Comment on above: Cystic fibrosis fletcher ier (Primary Dx); Encounter for consultation Start: 09-07-2024 End: 09-07-2024 Orders Only Miriam Joseph RN Maternal- Medicine at [facility] Comment on above: Cystic fibrosis fletcher [...] gestation of Start: 08-25-2024 End: 08-25-2024 ambulatory [facility] Prieto [facility] Start: 08-18-2024 End: 08-18-2024 Orders Only Barbra Samuel RN Maternal- Medicine at [facility] Start: 08-17-2024 End: 08-18-2024 Telephone encounter Rachel Rodriguez LG Work Phone: Maternal- Medicine at [facility] Start: 08-14-2024 End: 08-14-2024 Patient encounter procedure Curtis Paez DO Work Phone: [facility] Comment on above: Cystic fibrosis fletcher ier, antepartum; LGSIL on Pap smear of cervix Start: 08-01-2024 End: 08-01-2024 Bamboo flowsheet Curtis Paez DO Work Phone: [facility] Start: 08-01-2024 End: 08-01-2024 Bamboo flowsheet Curtis Paez DO Work Phone: [facility] Start: 08-01-2024 End: 08-01-2024 flow sheet Curtis Paez DO Work Phone: [facility] Comment on above: Chlamydia trachomati s infection; 21 weeks gestation of ; Second trimester ; Diabetes mellitus screening Start: 07-28-2024 End: 07-28-2024 Office consultation new/estab patient 60 min Lyndsey Burns MD Work Phone: Maternal- Medicine at [facility] Comment on above: Cystic fibrosis fletcher ier (Primary Dx) Start: 07-28-2024 End: 07-28-2024 Orders Only Miriam Joseph RN Maternal- Medicine at [facility] Comment on above: Cystic fibrosis fletcher ier (Primary Dx); Abnormal genetic test during Start: 07-12-2024 End: 07-12-2024 Telephone encounter Rachel Rodriguez [facility] Work Phone: Maternal- Medicine at [facility] Start: 07-11-2024 End: 07-11-2024 Bamboo flowsheet Emi Bronson [facility] Work Phone: [facility] Start: 07-11-2024 End: 07-11-2024 Bamboo flowsheet Emi Bronson [facility] Work Phone: [facility] Start: 07-11-2024 End: 07-11-2024 Clinical Support Emi Bronson [facility] Work Phone: [facility] Comment on above: Moderate episode of recurrent major depressive disorder (CMS/HCC); ALICIA (generalized anxiety disorder) (CMS/HCC) Start: 07-06-2024 End: 07-06-2024 Bamboo flowsheet Jocy YOUNG Work Phone: [facility] Start: 07-06-2024 End: 07-10-2024 Bamboo flowsheet Jocy YOUNG Work Phone: [facility] Start: 07-06-2024 End: 07-10-2024 Clinisync Result Encounter Jocy YOUNG Work Phone: [facility] External [facility] Unsolicited Start: 07-06-2024 End: 07-07-2024 External Result Encounter Jocy YOUNG Work Phone: [facility] Unsolicited Start: 07-06-2024 End: 07-06-2024 Patient encounter procedure Jocy YOUNG Work Phone: [facility] Start: 07-06-2024 End: 07-06-2024 Periodic preventive med est patient 18-39 yrs Jocy YOUNG Work Phone: [facility] Comment on above: 17 weeks gestation o f ; Second trimester ; Well woman exam with routine gynecological exam; Exposure to STD; Vaginal discharge Start: 07-05-2024 End: 07-05-2024 Clinisync Result Encounter Curtis Paez DO Work Phone: [facility] Unsolicited Start: 07-05-2024 End: 07-05-2024 Clinisync Result Encounter Curtis Jeannine DO Work Phone: [facility] Unsolicited Start: 06-20-2024 End: 06-20-2024 Telephone encounter Lara Lovelace Maternal- Medicine at [facility] Start: 06-20-2024 End: 06-20-2024 Telemedicine consultation with patient Rachel Rodriguez [facility] Work Phone: Maternal- Medicine at [facility] Comment on above: Cystic fibrosis fletcher ier (Primary Dx); Abnormal genetic test during ; Family history of developmental delay; Family history of spina bifida Start: 06-20-2024 End: 06-20-2024 ambulatory [facility] Start: 06-16-2024 End: 06-16-2024 Chart abstracting Scanning Provider External Maternal- Medicine at [facility] Start: 06-08-2024 End: 06-08-2024 Bamboo flowsheet [...] 05-24-2024 End: 05-24-2024 Clinical Support Emi Bronson [facility] Work Phone: [facility] Comment on above: Moderate episode of recurrent major depressive disorder (CMS/HCC); ALICIA (generalized anxiety disorder) (CMS/HCC) Start: 05-17-2024 End: 05-17-2024 Clinisync Result Encounter Curtis Jeannine DO Work Phone: [facility] External Department Unsolicited Start: 05-17-2024 End: 05-17-2024 Clinisync Result Encounter Curtis Busbyo DO Work Phone: [facility] External Department Unsolicited Start: 05-09-2024 End: 05-09-2024 Bamboo flowsheet Curtis Jeannine DO Work Phone: [facility] Start: 05-09-2024 End: 05-09-2024 Bamboo flowsheet Curtis Jeannine DO Work Phone: [facility] Start: 05-09-2024 End: 05-09-2024 flow sheet Curtis Jeannine DO Work Phone: [facility] Comment on above: Missed menses; 9 weeks gestation of ; H/O LEEP Start: 05-05-2024 End: 05-05-2024 Office outpatient visit 5 minutes [facility] Jeannine Nurse [facility] Comment on above: GA: 8w3d Start: 05-03-2024 End: 05-03-[address] DO Work Phone: [facility] Start: 05-02-2024 End: 05-02-2024 Bamboo flowsheet Emi Bronson [facility] Work Phone: [facility] Start: 05-02-2024 End: 05-02-2024 Bamboo flowsheet Emi Bronson [facility] Work Phone: [facility] Start: 05-02-2024 End: 05-02-2024 Clinical Support Emi Bronson [facility] Work Phone: [facility] Comment on above: Moderate episode of recurrent major depressive disorder (CMS/HCC); ALICIA (generalized anxiety disorder) (CMS/HCC) Start: 04-27-2024 End: 04-27-2024 Emergency department patient visit Zully Vallejo MD Work Phone: [facility] Comment on above: Abdominal cramping ( Primary Dx); Arm contusion, right, initial encounter Start: 04-18-2024 End: 04-18-2024 Orders Only Aicha Richard LPN [facility]ne[facility] Comment on above: Positive t est (Primary Dx) Start: 01-27-2024 End: 01-27-2024 Office outpatient visit 15 minutes Armen Correiapaulineazalea DO Work Phone: [facility] Internal Medicine - Family Medicine Comment on above: Current episode of m ajor depressive disorder without prior episode, unspecified depression episode severity (Primary Dx); Overweight Start: 01-27-2024 End: 01-27-2024 ambulatory [place] [facility] Start: 01-21-2024 End: 01-21-[address] DO Work Phone: [facility] Internal [facility] - Family Medicine Start: 12-13-2023 End: 12-13-2023 Bamboo flowsheet Eim Jerryro LPCC Work Phone: [facility] Start: 12-13-2023 End: 12-13-2023 Bamboo flowsheet Emi Davisdaro LPCC Work Phone: [facility] Start: 12-13-2023 End: 12-13-2023 Clinical Support Emi Bronson LPCC Work Phone: [facility] Comment on above: Moderate episode of recurrent major depressive disorder (HCC) ([facility]/HCC); ALICIA (generalized anxiety disorder) ([facility]/HCC) Start: 11-29-2023 End: 11-29-2023 Bamboo flowsheet Emi Munson Aiyana LPCC Work Phone: [facility] Start: 11-29-2023 End: 11-29-2023 Bamboo flowsheet Emi Munson Aiyana LPCC Work Phone: [facility] Start: 11-29-2023 End: 11-29-2023 Clinical Support Emi Jerryro LPCC Work Phone: [facility] Comment on above: Moderate episode of recurrent major depressive disorder (HCC) ([facility]/HCC); ALICIA (generalized anxiety disorder) ([facility]/HCC) Start: 10-27-2023 End: 10-27-2023 ambulatory [facility] Start: 10-27-2023 End: 10-27-2023 Office outpatient visit [address] DO Work Phone: [facility] Internal Medicine - Family Medicine Comment on above: Overweight (Primary Dx); Anxiety; Depression, unspecified depression type; Onychomycosis Start: 10-18-2023 End: 10-18-[address] DO Work Phone: [facility] Internal [facility] - Family Medicine Start: 10-03-2023 End: 10-04-[address] DO Work Phone: [facility] Internal [facility] - Family Medicine Comment on above: Class 1 obesity due to excess calories with body mass index (BMI) of 31.0 to 31.9 in adult, unspecified whether serious comorbidity present Start: 09-27-2023 End: 09-27-2023 Patient encounter status Armen Street DO Work Phone: [facility] [employer] Work Phone: Start: 09-27-2023 End: 09-27-2023 Periodic preventive med est patient 18-[address] DO Work Phone: [facility] Internal Medicine - Family Medicine Comment on above: Well adult health ch aashish (Primary Dx); Class 1 obesity due to excess calories without serious comorbidity with body mass index (BMI) of 31.0 to 31.9 in adult; Rectal bleeding; Onychomycosis; Benign skin lesion Start: 09-27-2023 End: 09-27-2023 ambulatory [facility] Start: 09-27-2023 Encounter for genera l adult medical examination without abnormal findings [facility] Start: 09-03-2023 End: 09-04-2023 Evaluation and management of inpatient HAJA OSULLIVAN [facility] Start: 09-02-2023 End: 09-02-2023 ambulatory [facility] Pat Phone Call Provider 1 [facility] - Pre Admit Start: 09-01-2023 End: 09-01-2023 ambulatory ARMEN [facility] Start: 08-25-2023 End: 08-25-2023 Office outpatient new 45 minutes Armen Strete DO Work Phone: [facility] Internal Medicine - Family Medicine Comment on above: Rectal bleeding (Lucita sangeeta Dx); Mild major depression (CMS-HCC); Class 1 obesity due to excess calories with body mass index (BMI) of 31.0 to 31.9 in adult, unspecified whether serious comorbidity present Start: 08-10-2023 End: 08-10-2023 Encounter for gynecological examination (general) (routine) without abnormal findings Claire Kat MD Work Phone: [facility] Start: 08-10-2023 End: 08-10-2023 Initial preventive medicine new pt age 18-39yrs Claire Kat MD Work Phone: [facility]/Gynecology Comment on above: Encounter for gyneco logical examination without abnormal finding (Primary Dx); Screening for STD (sexually transmitted disease); Pap smear, as part of routine gynecological examination; Encounter for initial prescription of vaginal ring hormonal contraceptive Start: 08-10-2023 End: 08-10-2023 Patient encounter status Claire Kat MD Work Phone: [facility] Start: 08-10-2023 End: 08-10-2023 ambulatory CLAIRE KAT [facility] Start: 08-10-2023 Encounter for gynecological examination (general) (routine) without abnormal findings [facility] Procedures Date Procedure Procedure Detail Performing Clinician Start: 10-17-2024 Quick Strep (POC) Celio Correiapaulineazalea DO Work Phone: Start: 10-12-2024 US OB BPP W NON-STRESS Curtis Jeannine DO Work Phone: Start: 10-04-2024 US OB PLACENTA Curtis Fa zio DO Work Phone: Start: 10-03-2024 Urnls dip stick/tabl et rgnt non-auto w/o micrscp Curtis Jeannine DO Work Phone: Start: 09-25-2024 US OB BPP W NON-STRESS Curtis Jeannine DO Work Phone: Start: 09-21-2024 US OB PLACENTA Curtis Fa zio DO Work Phone: Start: 09-21-2024 US OB CERVICAL LENGTH C orey Jeannine DO Work Phone: Start: 08-30-2024 Blood count complete automated Not In System Ref Prov Start: 08-30-2024 ALL CBC WITH AUTO DIFF Curtis Jeannine DO Work Phone: Start: 08-14-2024 COLPOSCOPY Curtis Fazi o DO Work Phone: Start: 07-06-2024 Alpha-fetoprotein serum Not In System Ref Prov Start: 07-06-2024 CHLAMYDIA/GC BY PCR JUAN C SWAB Not In System Ref Prov Start: 07-06-2024 HIGH RISK HPV W/FAUSTINA No t In System Ref Prov Start: 07-06-2024 HM PAP SMEAR Not In Sys tem Ref Prov Start: 07-06-2024 RECURRENT VAGINITIS (HTRX) Jocy YOUNG [...] Curtis Jeannine DO Work Phone: Start: 05-17-2024 Antibody screen Lyric Sánchez RN Start: 05-17-2024 Assay of thyroid stimulating hormone tsh Not In System Ref Prov Start: 05-17-2024 Drug scrn 1+ class nonchromo Not In System Ref Prov Start: 05-17-2024 Hepatitis c antibody No t In System Ref Prov Start: 05-17-2024 HIV 1&2 AB/AG SCREEN (P24 AG) Not In System Ref Prov Start: 05-17-2024 Iaad ia hepatitis b surface antigen Not In System Ref Prov Start: 05-17-2024 SYPHILIS TOTAL(UNKNO WN SYPHILIS STATUS) Not In System Ref Prov Start: 05-17-2024 TYPE AND SCREEN Not In System Ref Prov Start: 05-17-2024 ALL CBC WITH AUTO DIFF Curtisidalia Busbyo DO Work Phone: Start: 05-17-2024 BOX TEST Curtis Busby o DO Work Phone: Start: 05-05-2024 End: 05-05-2024 Urnls dip stick/tablet rgnt non-auto w/o micrscp Curtis Busbyo DO Work Phone: Start: 04-27-2024 Us uterus [...] Adult depression scr eening assessment Armen Street [place] Work Phone: Start: 08-25-2023 Adult depression scr eening assessment Armen Street [place] Work Phone: Start: 08-10-2023 Urine test visual color cmprsn meths Claire Kat MD Work Phone: Start: 08-10-2023 Adult depression scr eening assessment Claire Kat MD Work Phone: Start: 08-10-2023 Microscopic observat ion [Identifier] in Cervix by Cyto stain [address] [place] Work Phone: Plan of Treatment Date Care Activity Detail Author Start: 2068 Respiratory Syncytia l Virus (RSV) or age 60 yrs+ (1 - 1-dose 75+ series) Respiratory Syncytial Virus (RSV) or age 60 yrs+ (1 - 1-dose 75+ series) [facility] Start: 08-16-2028 DTaP,Tdap and Td Vaccines (2 - Td or Tdap) DTaP,Tdap and Td Vaccines (2 - Td or Tdap) [facility] Start: 08-16-2028 DTaP/Tdap/Td vaccine (2 - Td or Tdap) DTaP/Tdap/Td vaccine (2 - Td or Tdap) [facility] Start: 07-07-2027 Screening for malign ant neoplasm of cervix Pap Smear [facility] Start: 08-09-2026 Screening for malign ant neoplasm of cervix Pap Smear [facility] Start: 10-13-2025 End: 10-13-2025 US MFM with or without consult US MFM with or without consult Imaging Routine Abnormal genetic test during Maternal care for other (suspected) abnormality and damage, gastrointestinal anomalies, not applicable or unspecified Cystic fibrosis carrier Expected: 10/13/2025 (Approximate), Expires: 10/13/2025 [employer] Work Phone: Comment on above: Expected: 10/13/2025 (Approximate), Expires: 10/13/2025 Start: 09-30-2025 Tobacco Screening Tobacco Screening [facility] Start: 09-07-2025 End: 09-07-2025 US MFM with or without consult US MFM with or without consult Imaging Routine Cystic fibrosis carrier Abnormal genetic test during Expected: 09/07/2025 (Approximate), Expires: 09/07/2025 [facility] Work Phone: Comment on above: Expected: 09/07/2025 (Approximate), Expires: 09/07/2025 Start: 07-28-2025 Adult BMI Screening Adult BMI Screen ing [facility] Start: 07-28-2025 Tobacco Screening Tobacco Screening [facility] Start: 07-28-2025 End: 07-28-2025 US MFM with or without consult US MFM with or without consult Imaging Routine Cystic fibrosis carrier Abnormal genetic test during Expected: 07/28/2025 (Approximate), Expires: 07/28/2025 [employer] Work Phone: Comment on above: Expected: 07/28/2025 (Approximate), Expires: 07/28/2025 Start: 02-24-2025 Tobacco Counseling Tobacco Counselin g [facility] Start: 01-26-2025 Adult BMI Screening Adult BMI Screen ing [facility] Start: 01-26-2025 Tobacco Screening Tobacco Screening [facility] Start: 12-04-2024 Influenza vaccination Influenza Vacc ine [facility] Start: 11-03-2024 Influenza vaccination Flu vaccine (S alisha Ended) [facility] Start: 11-01-2024 End: 01-17-2025 US Pelvis transvaginal US OB transvaginal Imaging Routine Third trimester ([facility]) Expected: 11/01/2024, Expires: 01/17/2025 [facility] Work Phone: Comment on above: Expected: 11/01/2024 , Expires: 01/17/2025 Start: 10-30-2024 End: 10-30-2024 Patient encounter procedure [facility] Imaging Start: 10-26-2024 Adult BMI Screening Adult BMI Screen ing [facility] Start: 10-26-2024 Depression Screening Depression Scre ening [facility] Start: 10-26-2024 Tobacco Screening Tobacco Screening [facility] Start: 10-23-2024 End: 10-23-2024 Patient encounter procedure 10/23/2024 1:00 PM EDT Appointment [facility] [address] [place] [address] [facility] Start: 10-19-2024 End: 10-19-2024 Patient encounter procedure 10/19/2024 3:30 PM EDT Appointment [facility] [address] [place] [id number] [facility] Start: 10-19-2024 End: 10-19-2024 ambulatory 10/19/2024 2:00 PM EDT Initial [facility] [address] [place], [place] [address] Rain Bond, [address] [place] [address] [facility] Start: 10-17-2024 End: 10-17-2024 Patient encounter procedure [facility] Comment on above: Arrived Start: 10-12-2024 End: 10-12-2024 Patient encounter procedure 10/12/2024 3:15 PM EDT Appointment [facility] [address] [place] [address] [facility] Start: 10-05-2024 End: 10-05-2024 Patient encounter procedure 10/05/2024 3:30 PM EDT Appointment [facility] [address] [place] [phone] [facility] Start: 10-03-2024 End: 04-05-2025 US biophysical profile w non stress test US biophysical profile w non stress test Imaging Routine Cystic fibrosis carrier, antepartum ([facility]) Maternal care for other (suspected) abnormality and damage, gastrointestinal anomalies, not applicable or unspecified ([facility]) Expected: 10/03/2024 (Approximate), Expires: 04/05/2025 [facility] Work Phone: Comment on above: Expected: 10/03/2024 (Approximate), Expires: 04/05/2025 Start: 10-03-2024 End: 10-03-2024 Patient encounter procedure 10/03/2024 1:40 PM EDT Routine [facility] [address] [facility] [place] [address] Curtis Paez, DO [address] [place], [place] [id number] [facility] Start: 09-29-2024 End: 09-29-2024 Patient encounter procedure 09/29/2024 3:00 PM EDT Appointment [facility] [address] [place] [address] Lyndsey Burns MD [address], [address] [place] [address] [facility] Start: 09-26-2024 Adult BMI Screening Adult BMI Screen ing [facility] Start: 09-26-2024 Depression Screening Depression Scre ening [facility] Start: 09-26-2024 Tobacco Screening Tobacco Screening [facility] Start: 09-18-2024 End: 09-18-2024 Patient encounter procedure 09/18/2024 3:40 PM EDT Routine [facility] [address] [place] [phone] Curtis Paez, DO [address] [place], [place] [phone] Arrived [facility] Comment on above: Arrived Start: 09-18-2024 End: 01-18-2025 US for US OB follow up transabdominal approach Imaging Routine Cystic fibrosis carrier, antepartum ([facility]) Expected: 09/18/2024 (Approximate), Expires: 01/18/2025 [facility] Work Phone: Comment on above: Expected: 09/18/2024 (Approximate), Expires: 01/18/2025 Start: 09-02-2024 Adult BMI Screening Adult BMI Screen ing [facility] Start: 09-02-2024 Tobacco Screening Tobacco Screening [facility] Start: 08-30-2024 End: 08-30-2024 Patient encounter procedure 08/30/2024 9:50 AM EDT Routine [facility] [address] [place] [phone] Jocy Ruby PA [address] [facility] [place] [address] [facility] Start: 08-25-2024 End: 08-25-2024 Patient encounter procedure 08/25/2024 9:45 AM EDT Appointment [facility] [place] [id number] [facility] [address] [place] [phone] [facility] [place] Start: 08-24-2024 Adult BMI Screening Adult BMI Screen ing [facility] Start: 08-24-2024 Depression Screening Depression Scre ening [facility] Start: 08-24-2024 Tobacco Screening Tobacco Screening [facility] Start: 08-10-2024 End: 08-10-2024 Clinical Support 08/10/2024 11:00 AM EDT Clinical Support [facility] [address] [place] [phone] Emi Bronson [facility] [address] [place] [address] [facility] Start: 08-09-2024 Adult BMI Follow Up Plan Adult BMI Follow Up Plan [facility] Start: 08-09-2024 Adult BMI Screening Adult BMI Screen ing [facility] Start: 08-09-2024 Depression Screening Depression Scre ening [facility] Start: 08-07-2024 End: 08-07-2024 Patient encounter procedure 08/07/2024 11:30 AM EDT Procedure Visit [facility] [address] [place] [address] Curtis Paez, DO [address] [place] [address] [facility] Start: 08-01-2024 End: 08-01-2025 CBC panel - Blood by Automated count CBC Lab Routine Diabetes mellitus screening Expected: 08/01/2024 (Approximate), Expires: 08/01/2025 [facility] Comment on above: Expected: 08/01/2024 (Approximate), Expires: 08/01/2025 Start: 08-01-2024 End: 08-01-2025 Measurement of glucose 1 hour after glucose challenge for glucose tolerance test Glucose tolerance, 1 hour Lab Routine Diabetes mellitus screening Expected: 08/01/2024 (Approximate), Expires: 08/01/2025 [facility] Comment on above: Expected: 08/01/2024 (Approximate), Expires: 08/01/2025 Start: 08-01-2024 End: 08-01-2024 Patient encounter procedure 08/01/2024 1:20 PM EDT Routine [facility] [address] [facility] [address] Curtis Paez, DO [address] [place] [address] [facility] Start: 07-28-2024 End: 07-28-2024 Patient encounter procedure [facility] Start: 07-11-2024 End: 07-11-2024 Clinical Support 07/11/2024 12:00 PM EDT Clinical Support [facility] [address] [place] [address] Emi Bronson [facility] [address] [place] [address] [facility] Start: 07-06-2024 End: 08-05-2024 Alpha fetoprotein, maternal Alpha fetoprotein, maternal Lab Routine 17 weeks gestation of Second trimester Expected: 07/06/2024 (Approximate), Expires: 08/05/2024 [facility] Comment on above: Expected: [...] affecting , antepartum Expected: 06/08/2024, Expires: 06/08/2025 [facility] Work Phone: Comment on above: Expected: 06/08/2024 , Expires: 06/08/2025 Start: 06-08-2024 End: 06-08-2024 Patient encounter procedure 06/08/2024 9:20 AM EST Routine [facility] [address] [place] [address] Curtis Paez, [address] [facility] [place] [address] [facility] Start: 05-24-2024 End: 05-24-2024 Clinical Support 05/24/2024 10:00 AM EST Clinical Support [facility] [address] [place] [address] Emi Bronson [facility] [address] [place] [address] [facility] Start: 05-09-2024 End: 05-09-2024 Patient encounter procedure [facility] Comment on above: Arrived Start: 05-09-2024 End: 05-09-2025 US Pelvis transvaginal US OB transvaginal Imaging Routine H/O LEEP Expected: 05/09/2024, Expires: 05/09/2025 [facility] Comment on above: Expected: 05/09/2024 , Expires: 05/09/2025 Start: 05-05-2024 End: 05-05-2025 ABO/Rh ABO/Rh Lab Routine Missed menses , unspecified gestational age Expected: 05/05/2024 (Approximate), Expires: 05/05/2025 [facility] Comment on above: Expected: 05/05/2024 (Approximate), Expires: 05/05/2025 Start: 05-05-2024 End: 05-05-2025 Blood type and Indirect antibody screen panel - Blood Type and screen Lab Routine Missed menses , unspecified gestational age Expected: 05/05/2024 (Approximate), Expires: 05/05/2025 [facility] Work Phone: Comment on above: Expected: 05/05/2024 (Approximate), Expires: 05/05/2025 Start: 05-05-2024 End: 05-05-2025 Drugs of abuse panel - Urine by Screen method Rapid drug screen, urine Lab Routine , unspecified gestational age Encounter for supervision of normal first in first trimester Expected: 05/05/2024 (Approximate), Expires: 05/05/2025 [facility] Comment on above: Expected: 05/05/2024 (Approximate), Expires: 05/05/2025 Start: 05-05-2024 End: 05-05-2024 ambulatory 05/05/2024 10:00 AM EST Initial [facility] [address] [place] [address] [facility] Start: 05-05-2024 End: 01-31-2025 Professional / ancillary services management 05/05/2024 9:30 AM EST Ancillary Procedure [facility] [address] [place] [address] [place] [address] [facility] Start: 05-03-2024 End: 05-03-2024 Patient encounter procedure 05/03/2024 10:30 AM EST Office Visit [facility] [address] [place] [address] [address], DO [address] [place] [address] [facility] Start: 05-02-2024 End: 05-02-2024 Telemedicine consultation with patient 05/02/2024 10:45 AM EST Telemedicine [facility] Obstetrics/Gynecology [address] [facility] [place] [phone] Angela Monson, BE[employer] [address] [place] [address] [facility] Obstetrics/[facility]necolo gy Start: 01-27-2024 End: 01-27-2024 Patient encounter procedure 01/27/2024 10:00 AM EDT Office Visit [facility] [address] [place] [address], DO [address], [place] [address] [facility] Start: 12-27-2023 End: 12-27-2023 Clinical Support 12/27/2023 10:00 AM EDT Clinical Support [facility] [address] [place] [address] Emi Bronson, [facility] [address] [place] [address] [facility] Start: 12-13-2023 End: 12-13-2023 Clinical Support 12/13/2023 11:00 AM EDT Clinical Support [facility] [address] [place] [address] Emi Bronson, [facility] [address] [place] [address] [facility] Start: 12-05-2023 COVID-19 Vaccine ( season) COVID-19 Vaccine ( season) [facility] Start: 12-05-2023 COVID-19 Vaccine ( season) COVID-19 Vaccine ( season) [facility] Start: 12-05-2023 Influenza vaccination Influenza Vacc ine [facility] Start: 11-04-2023 Influenza vaccination Flu vaccine (# 1) [facility] Start: 10-28-2023 End: 10-28-2023 Patient encounter procedure 10/28/2023 11:00 AM EDT [facility] [address] [place] [address], DO [address], [place] [address] [facility] Start: 10-27-2023 End: 10-27-2023 Patient encounter procedure 10/27/2023 10:15 AM EDT Office [facility] [address] [place] [address], DO [address], [place] [address] [facility] Start: 09-27-2023 End: 09-27-2023 Patient encounter procedure 09/27/2023 10:00 AM EDT Office Visit [facility] [address] [place] [address] [address], DO [address], [place] [address] [facility] Start: 09-03-2023 End: 09-03-2023 Admission to same day surgery center 09/03/2023 1:30 PM EDT - 09/03/2023 2:30 PM EDT Surgery [facility] [address] [place] [phone] Haja Osullivan, DO [address] [facility] [place] [address] COLONOSCOPY DIAGNOSTIC / SCREENING [02536 (CPT )] [facility] Comment on above: COLONOSCOPY DIAGNOST IC / SCREENING [55095 (CPT )] Start: 09-03-2023 End: 09-03-2023 Colonoscopy flx dx w/collj spec when pfrmd COLONOSCOPY DIAGNOSTIC / SCREENING rectal bleeding 09/03/2023 1:30 PM EDT [facility] Start: 09-03-2023 Subsequent hospital visit by physician 09/03/2023 1:30 PM EDT Hospital Encounter [facility] [address] [facility] [phone] Haja Osullivan, DO [address] [facility] [place] [address] [facility] Start: 09-02-2023 End: 09-02-2023 ambulatory 09/02/2023 2:00 PM EDT Support Visit [facility] - Pre Admit [address] [place] [phone] [facility] Admit Start: 08-25-2023 End: 08-25-2023 Patient encounter procedure 08/25/2023 9:20 AM EDT Office Visit [facility] - Family Medicine [address] [place] [address] DO [address], [facility] [address] [facility] Start: 08-01-2023 Screening for malign ant neoplasm of cervix [facility] Start: 2014 Screening for malign ant neoplasm of cervix Pap smear [facility] Start: 2012 DTaP,Tdap and Td Vaccines (1 - Tdap) DTaP,Tdap and Td Vaccines (1 - Tdap) [facility] Start: 2012 Hepatitis B vaccine (1 of 3 - 19+ 3-dose series) Hepatitis B vaccine (1 of 3 - 19+ 3-dose series) [facility] Start: 2012 Pneumococcal 0-49 ye ars Vaccine (1 of 2 - PCV) Pneumococcal 0-49 years Vaccine (1 of 2 - PCV) [facility] Start: 08-01-2011 Adult BMI Follow Up Plan Adult BMI Follow Up Plan [facility] Start: 08-01-2011 Hepatitis C screening Hepatitis C sc reen [facility] Start: 2008 HIV screening HIV screen [facility] Start: 2006 Varicella vaccine (1 of 2 - 13+ 2-dose series) Varicella vaccine (1 of 2 - 13+ 2-dose series) [facility] Start: 2005 Depression Screen Depression Screen [facility] Start: 2005 Tobacco Screening Tobacco Screening [facility] Start: 08-01-1999 Pneumococcal 0-64 ye ars Vaccine (1 of 2 - PCV) Pneumococcal 0-64 years Vaccine (1 of 2 - PCV) [facility] Bacteria identified in Urine by Culture Urine culture Microbiology Routine Missed menses Ordered: 05/05/2024 [facility] Comment on above: Ordered: 05/05/2024 End: 09-26-2024 CBC panel - Blood by Automated count CBC Lab Routine Rectal bleeding 1 Occurrences starting 09/27/2023 until 09/26/2024 [facility] Comment on above: 1 Occurrences starti ng 09/27/2023 until 09/26/2024 CBC W Auto Different ial panel - Blood CBC and differential Lab Routine Missed menses , unspecified gestational age Ordered: 05/05/2024 [facility] Comment on above: Ordered: 05/05/2024 CHLAMYDIA TRACHOMATI S (GENITO/STI) CHLAMYDIA TRACHOMATIS (GENITO/STI) Lab Routine Exposure to STD Ordered: 07/06/2024 [facility] Comment on above: Ordered: 07/06/2024 CHLAMYDIA TRACHOMATI S (GENITO/STI) CHLAMYDIA TRACHOMATIS (GENITO/STI) Lab Routine Chlamydia trachomatis infection 21 weeks gestation of Second trimester Ordered: 08/01/2024 [facility] [employer] Comment on above: Ordered: 08/01/2024 End: 08-09-2024 Chlamydia/GC by PCR ThinPrep fluid Chlamydia/GC by PCR ThinPrep fluid Microbiology Routine Pap smear, as part of routine gynecological examination 1 Occurrences starting 08/10/2023 until 08/09/2024 [facility]: 1 Occurrences starti ng 08/10/2023 until 08/09/2024 End: 08-24-2024 Colonoscopy Colonoscopy GI Routine Rectal bleeding 1 Occurrences starting 08/25/2023 until 08/24/2024 [employer] Work Phone: Comment on above: 1 Occurrences starti ng 08/25/2023 until 08/24/2024 End: 09-26-2024 Comprehensive metabolic 2000 panel - Serum or Plasma Comprehensive metabolic panel Lab Routine Well adult health check 1 Occurrences starting 09/27/2023 until 09/26/2024 [employer] Work Phone: Comment on above: 1 Occurrences starti ng 09/27/2023 until 09/26/2024 Cytology Cervical or vaginal smear or scraping study Pap Smear Pathology and Cytology Routine Well woman exam with routine gynecological exam Ordered: 07/06/2024 [facility] [employer] Comment on above: Ordered: 07/06/2024 End: 08-09-2024 Cytopathology procedure, preparation of smear, genital source Pap Smear Pathology and Cytology Routine Pap smear, as part of routine gynecological examination 1 Occurrences starting 08/10/2023 until 08/09/2024 [facility] Comment on above: 1 Occurrences starti ng 08/10/2023 until 08/09/2024 End: 04-18-2025 HCG, Quantitative, HCG, Quantitative, Lab Routine Positive test 1 Occurrences starting 04/18/2024 until 04/18/2025 [employer] Phone: Comment on above: 1 Occurrences starti ng 04/18/2024 until 04/18/2025 Hemoglobin A1c/Hemoglobin.total in Blood Hemoglobin A1c Lab Routine Missed menses , unspecified gestational age Ordered: 05/05/2024 [facility] [employer] Comment on above: Ordered: 05/05/2024 Hepatitis B virus surface Ag [Presence] in Serum or Plasma by Immunoassay Hepatitis B surface antigen Lab Routine Missed menses , unspecified gestational age Ordered: 05/05/2024 [facility] [employer] Comment on above: Ordered: 05/05/2024 Hepatitis C virus Ab [Presence] in Serum or Plasma by Immunoassay Hepatitis C antibody Lab Routine Missed menses , unspecified gestational age Ordered: 05/05/2024 [facility] [employer] Comment on above: Ordered: 05/05/2024 End: 08-09-2024 Hepatitis panel, acute Hepatitis panel, acute Lab Routine Screening for STD (sexually transmitted disease) 1 Occurrences starting 08/10/2023 until 08/09/2024 [facility] Comment on above: 1 Occurrences starti ng 08/10/2023 until 08/09/2024 End: 08-09-2024 High risk HPV w/faustina High risk HPV w/faustina Lab Routine Pap smear, as part of routine gynecological examination 1 Occurrences starting 08/10/2023 until 08/09/2024 [employer] Comment on above: 1 Occurrences starti ng 08/10/2023 until 08/09/2024 End: 08-09-2024 HIV 1&2 AB/AG Screen (P24 AG) HIV 1&2 AB/AG Screen (P24 AG) Lab Routine Screening for STD (sexually transmitted disease) 1 Occurrences starting 08/10/2023 until 08/09/2024 [employer] Phone: Comment on above: 1 Occurrences starti ng 08/10/2023 until 08/09/2024 HIV-1/HIV-2 antigen/antibody combination immunoassay HIV-1 and HIV-2 antibodies Lab Routine Missed menses , unspecified gestational age Ordered: 05/05/2024 [facility] Comment on above: Ordered: 05/05/2024 Human papilloma viru s DNA [Presence] in Unspecified specimen by Probe with amplification HPV DNA probe, amplified Microbiology Routine Well woman exam with routine gynecological exam Ordered: 07/06/2024 [facility] Comment on above: Ordered: 07/06/2024 End: 09-26-2024 Lipid panel Lipid panel Lab Routine Well adult health check 1 Occurrences starting 09/27/2023 until 09/26/2024 [facility] Comment on above: 1 Occurrences starti ng 09/27/2023 until 09/26/2024 Neisseria gonorrhoea e DNA [Presence] in Unspecified specimen by ALLISON with probe detection Neisseria gonorrhea DNA probe, direct Lab Routine Exposure to STD Ordered: 07/06/2024 [facility] Comment on above: Ordered: 07/06/2024 Neisseria gonorrhoea e DNA [Presence] in Unspecified specimen by ALLISON with probe detection Neisseria gonorrhea DNA probe, direct Lab Routine Chlamydia trachomatis infection 21 weeks gestation of Second trimester Ordered: 08/01/2024 [facility] Comment on above: Ordered: 08/01/2024 Reagin Ab [Presence] in Serum by RPR RPR Lab Routine Missed menses , unspecified gestational age Ordered: 05/05/2024 [facility] Comment on above: Ordered: 05/05/2024 Rubella antibody, IgG Rubella an tibody, IgG Lab Routine Missed menses , unspecified gestational age Ordered: 05/05/2024 [facility] Comment on above: Ordered: 05/05/2024 SURESWAB(R) ADVANCED VAGINITIS PLUS, TMA SURESWAB(R) ADVANCED VAGINITIS PLUS, TMA Pathology and Cytology Routine Vaginal discharge Ordered: 07/06/2024 [facility] Work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
[2024-10-19 11:13] VITALS: BP 123/74; PULSE 97
== END 2024-10-19 11:41 | disposition home or self-care (01) ==
LOC: US 10:53 → FBC 10:58
PROVIDERS: PCP Family Medicine; Visit Provider Obstetrics & Gynecology
DX: O26.893 Other specified pregnancy related conditions, third trimester (principal); Z14.1 Cystic fibrosis carrier; Z3A.32 32 weeks gestation of pregnancy
CPT/HCPCS: 59025; 76818

== ENCOUNTER 2024-10-26 09:28 | Outpatient (OUT) | payer OTHER, SELFPAY ==
--- OUTSIDE RECORDS SUMMARY | 2014-12-19 09:30 | XMS_ITS | Continuity of Care Document ---
Author Organization [facility] Address [address] [place] [address] Phone Care Team Providers Care Associate Agent Insurance Sales Name Role Phone Yasmin Turcios MD Unavailable [...] Diagnoses Date Provider Providers Copied on Encounter [facility], [address], [place], [place], [address], tel:[phone] [facility] No Information Dec- 5 Tam NULL Yasmin[address] [place], [place], [address], [place]. tel:[phone] [facility], [address], [place], [place], [address], tel:[phone] [facility] contraception (chief complaint) Test - NegativeSubse q. Contraceptive Surveillance Dec- 0 5 Tam [address] [place], [place], [address], [place]. tel:[phone] Init Preven Meds E&m New Pt; 18-39 [facility], [address], [place], [place], [address], [place] tel:[phone] [facility] annual exam (chief complaint) ROUTINE PRESCRIPTION EYEGLASS MAKER EXAMINATIONPr egnancy Test - Negative Tam NULL Yasmin. [address] [place], [place], [address], [place]. tel:[phone] Family History Family Member Type Diagnosis Age At Onset Paternal grandmother Problem (finding) breast cancer Payers Payer name Insurance type Covered green party ID Authoriza tion(s) [place] [facility] [place] [id number] Social History Type Description Quantity Date Captured [...]
--- OUTSIDE RECORDS SUMMARY | 2024-10-12 15:05 | XMS_ITS | Encounter Summary ---
Author Organization [facility] tem Address [facility] [place]-[id number] [address] [place] [address] Care Team Providers Care Engineering Librarian Name Role Phone Armen Sánchez DO Primary Care Provider + [phone] Reason for Referral * Diagnostic Imaging (Routine) - Pending Review Specialty Diagnoses / Procedures Referred By Thom t Referred To Contact Maternal and Medicine Diagnoses Obesity in , antepartum Supervision of high risk , antepartum Procedures US MFM with or without consult Brionna Sanabria MD [address] [address] Phone: tel: fax: Maternal- Medicine at [facility] [address] [place] [address] Phone: tel: fax: Referral ID Status Reason Start Date Expiration Date V isits Requested Visits Authorized [id number] Pending Review 10/09/2024 10/09/2025 1 1 Reason for Visit * Diagnostic Imaging (Routine) - Pending Review Specialty Diagnoses / Procedures Referred By Thom t Referred To Contact Maternal and Medicine Diagnoses Obesity in , antepartum Supervision of high risk , antepartum Procedures US MFM with or without consult Brionna Sanabria MD [address] [address] Phone: tel: fax: Maternal- Medicine at [facility] [address] [place] [address] Phone: tel: fax: Referral ID Status Reason Start Date Expiration Date V isits Requested Visits Authorized [id number] Pending Review 10/09/2024 10/09/2025 1 1 Encounter Details Date Type Department Care Team (Latest Contact Info) Description 10/12/2024 3:05 PM EDT - 10/12/2024 11:59 PM EDT Hospital Encounter [facility] US Imaging [address] [facility] [place] [address] Obesity in , antepartum; Supervision of high risk , antepartum Discharge Disposition: Home Social History Tobacco Use Types Packs/Day Years Used Date Smoking Tobacco: Every Day Cigarettes 1 13.2 Started: 08/01/2011 Smokeless Tobacco: Never Alcohol Use Standard Drinks/Week Comments Not Currently 0 (1 standard drink = 0.6 oz pur e alcohol) [facility] Utilities Answer Date Recorded In the past 12 months has [employer], gas, oil, or water company threatened [...] any clubs o r organizations such as mormon groups, unions, fraternal or athletic groups, or [...] 10/27/2023 [facility] [place] of Occupat ional Health - Occupational Stress [...] Recorded Do you need help finding a [facility] and/or a training program? [...] Care Team (Late st Contact Info) Description 10/30/2024 11:00 AM EDT Appointment [facility] US Imaging [address] [place] [address] 10/30/2024 11:30 AM EDT Office Visit Maternal- Medicine at [facility] [address] [place] [address] Angela Perez MD [address] [facility], [address] [place] [address] 11/03/2024 1:00 PM EDT [facility] [address] [place] [address] Tiffany Easton MD [address] [place] [address] documented as of this encounter Procedures Procedure Name Priority Date/Time Associated Diagnosis Comments US MFM AMNIOTIC FLUID VOLUME ASSESSMENT Routine 10/12/2024 4:46 PM EDT Obesity in , antepartum Supervision of high risk , antepartum documented in this encounter Results * US MFM AMNIOTIC FLUID VOLUME ASSESSMENT (10/12/2024 4:46 PM EDT) Anatomical Region Laterality Modality OB-DIP TUBE ASSEMBLER MACHINE Ultrasound 10/12/2024 3:39 PM EDT Narrative 10/12/2024 5:53 PM EDT NAME: JEREMY BORDEN : 1995 SEX: F Accession Number: [id number] ORDERING PHYSICIAN: BRIONNA SANABRIA REFERRING PHYSICIAN: MAGAN TRISTAN Coding ----- --------- Procedures 41086: Limited OB / NAYE, 1 or More Fetuses Indication ----- --------- Abnormal finding on screening of mother-MOB + FOB CF carriers, Depression, Anxiety , Supervision of high risk , cystic fibrosis. History ----- --------- OB History 1. Para 0 [id number] Current ----- --------- Cell free DNA low [...] --------- LMP on: 03/07/2024 GA by LMP 31 w + 2 d DOMINIQUE by LMP: 12/12/2024 Previous Ultrasound on: 04/27/2024 Type of prior assessment: GA GA at prior assessment date 7 w + 2 d GA by previous U/S 31 w + 2 d DOMINIQUE by previous Ultrasound: 12/12/2024 Assigned: based on the LMP, selected on 07/28/2024 Assigned GA 31 w + 2 d Assigned DOMINIQUE: 12/12/2024 General Evaluation ----- --------- Cardiac activity Present. FHR 153 bpm. movements: visualized. Presentation: cephalic Placenta: Placental site: anterior, previously documented away from cervical os Amniotic fluid: Amount of AF: normal amount. MVP 5.2 cm Maternal Structures ----- --------- Uterus Visualized Cervix Suboptimal Right Ovary Not visualized Left Ovary Not visualized Cul de Sac Suboptimal Impression ----- --------- Single viable intrauterine . Amniotic fluid MVP measures 5.2 cm. Recommendations ----- --------- Continue testing as previously recommended. The patient is scheduled in two weeks for follow up growth ultrasound. Subsequent follow up or other follow up as clinically determined by primary OB provider unless otherwise specified by MFM. Results forwarded to ordering provider so they can follow up with the patient as necessary. Procedure Note Brionna Sanabria MD - 10/12/2024 NAME: JEREMY BORDEN : 1995 SEX: F Accession Number: [id number] ORDERING PHYSICIAN: BRIONNA SANABRIA REFERRING PHYSICIAN: MAGAN TRISTAN Coding ----- --------- Procedures 51209: Limited OB / NAYE, 1 or More Fetuses Indication ----- --------- Abnormal finding on screening of mother-MOB + FOB CF carriers,Depression, Anxiety , Supervision of high risk , cystic fibrosis. History ----- --------- OB History 1. Para 0 [id number] Current ----- --------- Cell free DNA low [...] --------- LMP on: 03/07/2024 GA by LMP 31 w + 2 d DOMINIQUE by LMP: 12/12/2024 Previous Ultrasound on: 04/27/2024 Type of prior assessment: GA GA at prior assessment date 7 w + 2 d GA by previous U/S 31 w + 2 d DOMINIQUE by previous Ultrasound: 12/12/2024 Assigned: based on the LMP, selected on 07/28/2024 Assigned GA 31 w + 2 d Assigned DOMINIQUE: 12/12/2024 General Evaluation ----- --------- Cardiac activity Present. FHR 153 bpm. movements: visualized.Presentation: cephalic Placenta: Placental site: anterior, previously documented away fromcervical os Amniotic fluid: Amount of AF: normal amount. MVP 5.2 cm Maternal Structures ----- --------- Uterus Visualized Cervix Suboptimal Right Ovary Not visualized Left Ovary Not visualized Cul de Sac Suboptimal Impression ----- --------- Single viable intrauterine . Amniotic fluid MVP measures 5.2 cm. Recommendations ----- --------- Continue testing as previously recommended. The patient is scheduled in two weeks for follow up growth ultrasound. Subsequent follow up or other follow up as clinically determined byprimary OB provider unless otherwise specified by MFM. Results forwarded to ordering provider so they can follow up with thepatient as necessary. us Brionna Sanabria MD [facility] [place] ORDERABLES Final Result documented in this encounter Visit Diagnoses Diagnosis Obesity in , antepartum Obesity complicating , childbirth, or the puerperium, antepartum condition or complication Supervision of high risk , antepartum documented in this encounter Additional Health Concerns Assessment Noted Time PHQ-9 Depression Total Score: 0 10/27/19 10:25 AM EDT A Body Mass Index follow-up plan has been documented for the patient 08/10/2023 10:14 AM EDT documented as of this encounter Care Teams Engineering Librarian Relationship Specialty Start Date End Date Armen Sánchez DO [address] [facility] [place] [address] PCP - General Family Medicine 08/25/23 documented as of this encounter
--- OUTSIDE RECORDS SUMMARY | 2024-10-17 09:09 | XMS_ITS | Continuity of Care Document ---
Demographics [facility] [address] [place] [address] Phone Preferred Language Syriac Marital Status Unknown Amish Affiliation Unknown Race White Ethnic Group Not or Lati no Author Organization [facility] Address [address] [place] [address] Phone Care Team Providers Care Embedded Hardware Engineer Name Role Phone Esther Maldonado APRN Attending Provider Armen Sánchez DO Primary Care Provider Care Teams Patient Care Team Team Status: Active Member Role Status Dates Armen Sánchez DO Primary Care Provider Active Patient Care Team Team Status: Inactive Member Role Status Dates Esther Maldonado APRN Attending Provider Active Start: October 17, 2024 End: October 17, 2024 Armen Sánchez DO Primary Care Provider Active Start: October 17, 2024 End: October 17, 2024 Chief Complaint and Reason for Visit Chief Complaint Admit Date Sore throat October 17, 2024 12:0 6pm Allergies, Adverse Reactions, Alerts Allergen Type Severity Reaction Last Updated Verified Status Penicillins Allergy Unknown yeast infection October 17, 2024 12:1 3pm Yes Active Social History Smoking Status Unknown if ever smoked Observation Status Observation Response Date of Response Legal Sex Female (finding) Sex Assigned At Female July Medications Medication Status Dose Units Route Directions Qty Days St art Date Stop Date End Date Instructions Adherence Venlafaxine 37.5 mg capsule,ext ended release 24hr Discont inued MG PO October 17, 2024 12:00a m October 17, 2024 12:12 pm Procedures Procedure Date Performed Status Quick Strep (POC) October 17, 2024 completed Relevant Diagnostic Tests and/or Laboratory Data Microbiology Results Procedure Source Result Collection Date/Time Result Date/Time Result Comment Performing Site Quick Strep (POC) Throat October 17, 2024 12:15pm October 17, 2024 12:24pm Vital Signs Vital Reading Result Reference Range Collection Date/Time Height 64 [in_i] October 17, 2024 12:13pm Weight 94.97 kg October 17, 2024 12:13pm Body Temperature 98.9 [degF] 97.6-99.0 October 17, 2024 12:13pm Heart Rate 96 /min 60-100 October 17, 2024 12:13pm Respiratory rate 19 /min 12-October 17, 2024 12:13pm Oxygen saturation by Pulse oximetry 98 % 95-100 October 17, 2024 12:1 3pm BP Systolic 129 mm[Hg] 100-140 October 17, 2024 12:13pm BP Diastolic 82 mm[Hg] 60-100 October 17, 2024 12:13pm BMI (Body Mass Index) 35.9 kg/m2 October 032024 12:13pm Advance Directives Advance Directive Response Recorded Date/ Time Advance Directives No October 17 12:05pm Insurance Providers Payer Policy Id Subscriber's Name Subscriber Id Effectiv e Date Expiration Date [facility] [id number] [facility] [id number] [employer] [id number] Encounters Encounter Location(s) Arrival/Admit Date Discharge/Depart Date Provider(s) Departed Physician/Prov ider Office Visit -[facility] October 17, 2024 12:06pm October 17, 2024 1:08pm Julio C Andrade APRN
--- OUTSIDE RECORDS SUMMARY | 2024-10-17 14:20 | XMS_ITS | Encounter Summary ---
Author Organization [facility] Address [address] [place] [address] Care Team Providers Care Stitch Rubber Name Role Phone Armen Sánchez MD Primary Care Provider Reason for Visit * Reason Comments Routine Visit Encounter Details Date Type Department Care Team (Late st Contact Info) Description 10/17/2024 2:20 PM EDT Routine [facility] [address] [address] Jocy Ruby PA [address] [place], [place] [id number] Third trimester ([facility]); 32 weeks gestation of ([facility]); H/O LEEP; Cystic fibrosis carrier, antepartum ([facility]); HSV infection Social History Tobacco Use Types Packs/Day Years [...] Sign Reading Time Taken Comments Blood Pressure 124/78 10/17/2024 2:37 PM EDT Pulse - - Temperature - - Respiratory Rate - - Oxygen Saturation - - Inhaled Oxygen Concentration - - Weight 95.3 kg (210 lb) 10/17/2024 2:37 PM EDT Height - - Body Mass Index 36.05 10/03/2024 9:04 AM EDT documented in this encounter Progress Notes * HANNAH Carey - 10/17/2024 2:20 PM EDT Reason for Appointment: Patient ID: [...] anxiety disorder) 10/25/2023 Cystic fibrosis carrier, antepartum ([facility]) 06/12/2024 Placental abnormality in third trimester ([facility]) 09/21/2024 History of loop electrosurgical excision procedure (LEEP) of cervix affecting , antepartum([facility]) 09/21/2024 Third trimester ([facility]) 10/03/2024 29 weeks gestation of ([facility]) 10/03/2024 HSV infection 10/03/2024 Resolved Ambulatory Problems [...] SYSTEMS Review of Systems: Review of Systems OBJECTIVE Objective: OBGyn Exam Vitals: Estimated body mass index is 36.05 kg/m?? as calculated from the following: Height as of 7/1/25: 5' 4 . Weight as of this encounter: 210 lb. BP: 124/78 Patient's last menstrual period was 03/07/2024. ASSESSMENT & PLAN ICD-10-CM 1. Third trimester ([facility]) Z34.93 CANCELED: POCT urinalysis dipstick manually resulted 2. 32 weeks gestation of ([facility]) Z3A.32 Return OB: Patient presents today for a routine obstetrics appointment. Patient is currently 32w0d . Patient states she is doing well but has complaints of being tired due to current . Patient has verbalizes frequent movement. labor precautions was discussed/given and patient was instructed to perform kick counts three times a day. Pt complains of having more vaginal pain than normal. Pt asks if her cervix will be checked again due to her h/o LEEP a few years ago. Pt states that Dr. Paez advised if needed 1-2 stitches will be made to cervix in order to prevent pt going into labor. Pt added she has her first OB appointment w/[facility] on . No orders of the defined types were placed in this encounter. Follow Up: Patient is to return to office in 2 week for routine OB appointment. Documented by Nely Warren MA on behalf of: HANNAH Carey documented in this encounter Plan of Treatment Scheduled Orders Name Type Priority Associated Diagnoses Orde r Schedule US OB transvaginal Imaging Routine Third trimester ([facility]) Expected: 11/01/2024, Expires: 01/17/2025 documented as of this encounter Visit Diagnoses Diagnosis Third trimester ([facility]) state, incidental 32 weeks gestation of ([facility]) H/O LEEP Cystic fibrosis carrier, antepartum ([facility]) 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 documented in this encounter Care Teams Stitch Rubber Relationship Specialty Start Date End Date Armen Sánchez MD PCP - General Family Medicine 05/05/24 documented as of this encounter
--- OUTSIDE RECORDS SUMMARY | 2024-10-19 14:00 | XMS_ITS | Encounter Summary ---
Author Organization [facility] tem Address [id number] [address] [place] [address] Care Team Providers Care Concrete Crusher Loader Operator Name Role Phone Armen Sánchez DO Primary Care Provider + [phone] Reason for Referral * OBGYN (Routine) - Pending Review Specialty Diagnoses / Procedures Referred By Thom patel Referred To Contact Maternal and Medicine Diagnoses Supervision of high risk in third trimester Procedures nonstress test - Maternal Medicine Corinne Driver DO [address] [address] Phone: tel: fax: Maternal- Medicine at [facility] [address] [place] [address] Phone: tel: fax: Referral ID Status Reason Start Date Expiration Date V isits Requested Visits Authorized [id number] Pending Review 10/19/2024 10/19/2025 4 4 Reason for Visit * Reason Comments Routine Visit Encounter Details Date Type Department Care Team (Late st Contact Info) Description 10/19/2024 2:00 PM EDT [facility] [address] [place] [phone] Rain Bond DO [address] [facility] [address] [address] GA: 32w2d Social History Tobacco Use Types Packs/Day Years Used Date Smoking Tobacco: Every Day Cigarettes 1 13.2 Started: 08/01/2011 Smokeless Tobacco: Never Alcohol Use Standard Drinks/Week Comments Not Currently 0 (1 standard drink = 0.6 oz pur e alcohol) [facility] Utilities Answer Date Recorded In the past 12 months has [employer] History, gas, oil, or water [employer] threatened to shut off services in your [...] like food, housing, medical care, and heating? Not very hard 10/18/2024 PHQ-2 Answer Date Recorded Total Score 0 10/18/2024 [facility] of Occupat ional Health - Occupational Stress [...] as a part of a household? No 10/18/2024 Childcare Answer Date Recorded Do problems getting child ca re make it difficult for you to work or study? No 10/18/2024 Employment Answer Date Recorded Do you need help finding a [facility] [employer] center and/or a training program? No 08/25/2023 Hunger Screening Answer Date Recorded Within the past 12 months we worried whether our food would run out before we got money to buy more. Never True 10/19/2024 Within the past 12 months th e food we bought just didn't last and we didn't have money to get more. Never True 10/19/2024 Purpose - Life Answer Date Recorded I [...] Sign Reading Time Taken Comments Blood Pressure 122/68 10/19/2024 2:01 PM EDT Pulse - - Temperature - - Respiratory Rate - - Oxygen Saturation - - Inhaled Oxygen Concentration - - Weight 95.3 kg (210 lb) 10/19/2024 2:01 PM EDT Height - - Body Mass Index 36.03 07/28/2024 9:19 AM EDT documented in this encounter Progress Notes * Brittni Simpson RN - 10/19/2024 2:00 PM EDT Patient here at 32w2d for HROB transfer of care visit. Denies LOF, bleeding, contractions. Positive movement. Brought up BPP results from visit today, would like to discuss. No other concerns this visit. * Rain Bond DO - 10/19/2024 2:00 PM EDT Attending Attestation: I saw the patient. I performed the critical/thompson portions of the service. I was directly involved inthe management and treatment plan of the patient. I reviewed the resident's note. Additional Notes/Findings: at 32w2d - cystic fibrosis, getting weekly US for bowel evaluation, NST 2x/week Growth US up to date, next is scheduled -follows with MFM, delivery timing to be decided -labs up to date F/u 2 weeks HROB Rain Bond DO * Corinne Driver DO - 10/19/2024 2:00 PM EDT HROB Initial Consult SUBJECTIVE HPI 29 y.o. at 32w2d by LMP c/w 1st trimester ultrasound. Presents for initial consultation visit with HROB for: cystic fibrosis - s/p amniocentesis with two CF variants ([id number] and U0668B). Patient is doing well overall. Reports good movement. Denies any leakage of fluid, vaginal bleeding or contractions. Review of Systems Constitutional: Negative for chills, fatigue and fever. HENT: Negative for sore throat. Respiratory: Negative for cough and shortness of breath. Cardiovascular: Negative for chest pain and palpitations. Gastrointestinal: Negative for abdominal pain, constipation, diarrhea, nausea and vomiting. Genitourinary: Negative for dysuria, hematuria, menstrual problem, pelvic pain, vaginal bleeding, vaginal discharge and vaginal pain. Musculoskeletal: Negative for back pain. Skin: Negative for rash. Neurological: Negative for dizziness, light-headedness and headaches. All other systems reviewed and are negative. Past Medical Hx Past Medical History: Diagnosis Date Abnormal Pap smear of cervix Anxiety Cystic fibrosis carrier Depression HPV (human papilloma virus) infection Rectal bleed Visual impairment Past Surgical Hx Past Surgical History: Procedure Laterality Date CERVICAL BIOPSY W/ LOOP ELECTRODE EXCISION COLONOSCOPY DIAGNOSTIC / SCREENING N/A 09/03/2023 Performed by Scotty Mahoney DO at [facility] Allergies Allergies Allergen Reactions Penicillins Other (See Comments) Yeast infections Medications Current Outpatient Medications: magnesium oxide (MAGOX) 400 mg tablet, Take 1 tablet (400 mg total) by mouth in the morning., Disp:, Rfl: PNV 19/iron ps,heme/folic/dha ( MV & MIN ORAL), Take 1 tablet by mouth in the morning.,Disp: , Rfl: polyethylene glycol (GLYCOLAX) 17 gram packet, Take 17 g by mouth in the morning., Disp: , Rfl: venlafaxine XR (EFFEXOR XR) 37.5 mg 24 hr capsule, Take 1 capsule (37.5 mg total) by mouth in the morning., Disp: , Rfl: FLUoxetine (PROzac) 20 mg capsule, Take 1 capsule (20 mg total) by mouth in the morning. (Patient not taking: Reported on 07/28/2024), Disp: 30 capsule, Rfl: 3 Social Hx Social History Tobacco Use Smoking Status Every Day Current packs/day: 1.00 Average packs/day: 1 pack/day for 13.2 years (13.2 ttl pk-yrs) Types: Cigarettes Start date: 08/01/2011 Smokeless Tobacco Never Family Hx Cancer-related family history includes Breast cancer in her paternal grandmother; Cancer in her paternal grandfather., family history includes Brain Tumor (age of onset: 50) in her father; Breast cancer in her paternal grandmother; Cancer in her paternal grandfather; Heart failure in her maternal grandmother; No Known Problems in her brother, mother, sister, sister, and sister. OBJECTIVE Vitals BP 122/68 Wt 95.3 kg (210 lb) LMP 03/07/2024 Comment: test negative 09/03/23 at 1242 BMI 36.03 kg/m?? See Obstetric Flowsheet Physical Exam: General: alert and oriented, no acute distress Abd: soft, gravid, no rebound or guarding Ext: no lower extremity edema FHTs: 150 Labs ABO/Rh: A positive Rubella: Lab Results Component Value Date RUBELLAIMMU 1.54 05/17/2024 Hepatitis B Surface Antigen: Lab Results Component Value Date HEPBSAG NEGATIVE 05/17/2024 HIV: Lab Results Component Value Date HIV4 NON - REACTIVE 05/17/2024 Total Syphilis: non-reactive ASSESSMENT & PLAN 29 y.o. at 32w2d presents for initial HROB visit. Routine care - OSH records uploaded to chart - labs reviewed - Labor warning signs reviewed cystic fibrosis - S/p amniocentesis with two CF causing variants ([id number] and G1790N) - Follows with Maternal- Medicine - Plan for twice weekly NSTs, weekly bowel evaluation and DVP and growth US q4w - M US (09/29): cephalic, anterior, EFW 1456g (50%), AC 55%, DVP 5.6 cm, bowel appears prominent measuring at the 95% percentile. - Patient has met with cystic fibrosis specialist - Delivery timing to be determined by [facility] in 2 weeks with HROB Patient seen and discussed with Dr. Ronda DO. Corinne Driver DO Pediatrician Active Practice Resident, PGY-3 documented in this encounter Plan of Treatment Upcoming Encounters Date Type Department Care Team (Late st Contact Info) Description 10/30/2024 11:00 AM EDT Appointment [facility] US Imaging [address] [place] [phone] 10/30/2024 11:30 AM EDT Office Visit Maternal- Medicine at [facility] [address] [place] [phone] Angela Perez MD [address], [address] [place] [address] 11/03/2024 1:00 PM EDT Rout[facility] [address] [place] [phone] Tiffany Easton MD [address] [facility] [place] [phone] Scheduled Orders Name Type Priority Associated Diagnoses Orde r Schedule nonstress test - Maternal Medicine OB Routine Supervision of high risk in third trimester Per Treatment Plan for 4 Occurrences starting 10/19/2024 until 01/19/2025, 1 completed documented as of this encounter Results * nonstress test - Maternal Medicine (10/24/2024 4:16 PM EDT) Narrative [facility]OBGYN - 10/24/2024 4:16 PM EDT Patient Name: Sapna Serrano Patient : 1995 NST Objective Findings: Variability: (!) Marked Decelerations: None Accelerations: Yes Acoustic Stimulator: No Baseline: 140 BPM Uterine Irritability: No Contractions: Not present NST Interpretation: Nonstress Test Interpretation: Reactive (Suresh Valencia MD) Comments: Dr Valencia rviewed tracing and is reactive, baby active no ctxs (Jennifer Sheets) NST performed by: Jennifer Sheets RN 10/24/2024 4:16 PM us Corinne Driver DO OB GYNE ORDERABLES Final Res ult ASOBGYN documented in this encounter Visit Diagnoses Diagnosis Supervision of high risk in third trimester- Primary Cystic fibrosis carrier, antepartum- Primary Supervision of high risk in third trimester Overweight documented in this encounter Additional Health Concerns Assessment Noted Time PHQ-9 Depression Total Score: 0 10/19/19 25 4:00 AM EDT A Body Mass Index follow-up plan has been documented for the patient 08/10/2023 10:14 AM EDT documented as of this encounter Care Teams Concrete Crusher Loader Operator Relationship Specialty Start Date End Date Armen Sánchez DO [address], [place] [address] PCP - General Family Medicine 08/25/23 documented as of this encounter
--- OUTSIDE RECORDS SUMMARY | 2024-10-19 15:14 | XMS_ITS | Encounter Summary ---
Demographics Address [address] [place] [address] Mobile Phone Email Address Email Address Preferred Language Portuguese Marital Status Single Mandaen Affiliation Unknown Race White Ethnic Group Not or Lati no Author Organization [facility] tem Address [id number] [address] [place] [address] Care Team Providers Care Oyster Culturist Name Role Phone PrincessArmen Cedric [place] Primary Care Provider + [phone] Reason for Referral * Diagnostic Imaging (Routine) - Pending Review Specialty Diagnoses / Procedures Referred By Thom patel Referred To Contact Maternal and Medicine Diagnoses Abnormal genetic test during Maternal care for other (suspected) abnormality and damage, gastrointestinal anomalies, not applicable or unspecified Cystic fibrosis carrier Procedures [facility] with or without consult Brionna Sanabria MD [address] [address] Phone: tel: fax: Maternal- Medicine at [facility] [address] [place] [address] Phone: tel: fax: Referral ID Status Reason Start Date Expiration Date V isits Requested Visits Authorized [id number] Pending Review 10/13/2024 10/13/2025 1 1 Reason for Visit * Diagnostic Imaging (Routine) - Pending Review Specialty Diagnoses / Procedures Referred By Thom patel Referred To Contact Maternal and Medicine Diagnoses Abnormal genetic test during Maternal care for other (suspected) abnormality and damage, gastrointestinal anomalies, not applicable or unspecified Cystic fibrosis carrier Procedures US [facility] with or without consult Brionna Sanabria MD [address] [facility] 1st [place] [address] Phone: tel: fax: Maternal- Medicine at [facility] [address] [place] [address] Phone: tel: fax: Referral ID Status Reason Start Date Expiration Date V isits Requested Visits Authorized [id number] Pending Review 10/13/2024 10/13/2025 1 1 Encounter Details Date Type Department Care Team (Latest Contact Info) Description 10/19/2024 3:14 PM EDT - 10/19/2024 11:59 PM EDT Hospital Encounter [facility] - [facility] US Imaging [address] [place] [address] Abnormal genetic test during ; Maternal care for other (suspected) abnormality and damage, gastrointestinal anomalies, not applicable or unspecified; Cystic fibrosis carrier Discharge Disposition: Home Social History Tobacco Use Types Packs/Day Years Used Date Smoking Tobacco: Every Day Cigarettes 1 13.2 Started: 08/01/2011 Smokeless Tobacco: Never Alcohol Use Standard Drinks/Week Comments Not Currently 0 (1 standard drink = 0.6 oz pur e alcohol) [facility] Utilities Answer Date Recorded In the past [...] often do you attend chur ch or yazidi services? Never 01/27/2024 Do you belong to any clubs o r organizations such as buddhist groups, unions, fraternal or athletic groups, or [...] Answer Date Recorded Total Score 0 10/18/2024 [facility] - [...] Recorded Do you need help finding a [facility] u[facility] career center and/or a training program? No [...] Info) Description 10/30/2024 11:00 AM EDT Appointment [facility] US Imaging [address] [facility] [place] [address] 10/30/2024 11:30 AM EDT Office Visit Maternal- Medicine at [facility] [address] [place] [address] Angela Perez MD [address] [place] [address] 11/03/2024 1:00 PM EDT [facility] [address] [place] [address] Tiffany Easton MD [address] [facility] [place] [address] documented as of this encounter Procedures Procedure Name Priority Date/Time Associated Diagnosis Comments US MFM AMNIOTIC FLUID VOLUME ASSESSMENT Routine 10/19/2024 3:42 PM EDT Abnormal genetic test during Maternal care for other (suspected) abnormality and damage, gastrointestinal anomalies, not applicable or unspecified Cystic fibrosis carrier documented in this encounter Results * US MFM AMNIOTIC FLUID VOLUME ASSESSMENT (10/19/2024 3:42 PM EDT) Anatomical Region Laterality Modality OB-PRESIDENTIAL HELICOPTER CREW CHIEF Ultrasound 10/19/2024 3:20 PM EDT Narrative 10/19/2024 5:13 PM EDT NAME: JEREMY BORDEN : 1995 SEX: F Accession Number: [id number] ORDERING PHYSICIAN: BRIONNA SANABRIA REFERRING PHYSICIAN: CLIFTON IVERSON Coding ----- --------- Procedures 86590: Limited OB / NAYE, 1 or More Fetuses Indication ----- --------- Abnormal finding on screening of mother-MOB + FOB CF carriers, Depression, Anxiety , Supervision of high risk , cystic fibrosis. History ----- --------- OB History 1. Para 0 [id number] Current ----- --------- Cell free DNA low risk analysis Maternal Assessment ----- --------- Physical Exam Height 163 cm, 5 ft 4 in. Weight 95 kg, 210 lb. Initial weight 86 kg, 190 lb. BMI 36.05 kg/m . Initial BMI 32.61 kg/m . Weight gain 9 kg, 20 lb Method ----- --------- Transabdominal ultrasound examination ----- --------- Dupont . Number of fetuses: 1 Dating ----- --------- LMP on: 03/07/2024 GA by LMP 32 w + 2 d DOMINIQUE by LMP: 12/12/2024 Previous Ultrasound on: 04/27/2024 Type of prior assessment: GA GA at prior assessment date 7 w + 2 d GA by previous U/S 32 w + 2 d DOMINIQUE by previous Ultrasound: 12/12/2024 Assigned: based on the LMP, selected on 07/28/2024 Assigned GA 32 w + 2 d Assigned DOMINIQUE: 12/12/2024 General Evaluation ----- --------- Cardiac activity Present. FHR 157 bpm. movements: visualized. Presentation: cephalic Placenta: Placental site: anterior, previously documented away from cervical os Amniotic fluid: Amount of AF: normal amount. MVP 5.4 cm Maternal Structures ----- --------- Uterus Visualized Cervix Suboptimal Right Ovary Not visualized Left Ovary Not visualized Cul de Sac Suboptimal Impression ----- --------- Single viable intrauterine . Amniotic fluid MVP measures 5.4 cm. Recommendations ----- --------- Continue testing as previously recommended. The patient is scheduled in one week for follow up growth ultrasound. Subsequent follow up or other follow up as clinically determined by primary OB provider unless otherwise specified by M. Results forwarded to ordering provider so they can follow up with the patient as necessary. Procedure Note Brionna Sanabria MD - 10/19/2024 NAME: JEREMY BORDEN : 1995 SEX: F Accession Number: [id number] ORDERING PHYSICIAN: BRIONNA SANABRIA REFERRING PHYSICIAN: CLIFTON IVERSON Coding ----- --------- Procedures 60887: Limited OB / NAYE, 1 or More Fetuses Indication ----- --------- Abnormal finding on screening of mother-MOB + FOB CF carriers,Depression, Anxiety , Supervision of high risk , cystic fibrosis. History ----- --------- OB History 1. Para 0 [id number] Current ----- --------- Cell free DNA low risk analysis Maternal Assessment ----- --------- Physical Exam Height 163 cm, 5 ft 4 in. Weight 95 kg, 210 lb. Initialweight 86 kg, 190 lb. BMI 36.05 kg/m . Initial BMI 32.61 kg/m . Weight gain 9 kg, 20 lb Method ----- --------- Transabdominal ultrasound examination ----- --------- Dupont . Number of fetuses: 1 Dating ----- --------- LMP on: 03/07/2024 GA by LMP 32 w + 2 d DOMINIQUE by LMP: 12/12/2024 Previous Ultrasound on: 04/27/2024 Type of prior assessment: GA GA at prior assessment date 7 w + 2 d GA by previous U/S 32 w + 2 d DOMINIQUE by previous Ultrasound: 12/12/2024 Assigned: based on the LMP, selected on 07/28/2024 Assigned GA 32 w + 2 d Assigned DOMINIQUE: 12/12/2024 General Evaluation ----- --------- Cardiac activity Present. FHR 157 bpm. movements: visualized.Presentation: cephalic Placenta: Placental site: anterior, previously documented away fromcervical os Amniotic fluid: Amount of AF: normal amount. MVP 5.4 cm Maternal Structures ----- --------- Uterus Visualized Cervix Suboptimal Right Ovary Not visualized Left Ovary Not visualized Cul de Sac Suboptimal Impression ----- --------- Single viable intrauterine . Amniotic fluid MVP measures 5.4 cm. Recommendations ----- --------- Continue testing as previously recommended. The patient is scheduled in one week for follow up growth ultrasound. Subsequent follow up or other follow up as clinically determined byprimary OB provider unless otherwise specified by MFM. Results forwarded to ordering provider so they can follow up with thepatient as necessary. Brionna Sanabria MD [facility] ORDERABLES Final Result documented in this encounter Visit Diagnoses Diagnosis Abnormal genetic test during Maternal care for other (suspected) abnormality and damage, gastrointestinal anomalies, not applicable or unspecified Cystic fibrosis carrier documented in this encounter Additional Health Concerns Assessment Noted Time PHQ-9 Depression Total Score: 0 10/19/19 25 4:00 AM EDT A Body Mass Index follow-up plan has been documented for the patient 08/10/2023 10:14 AM EDT documented as of this encounter Care Teams Oyster Culturist Relationship Specialty Start Date End Date Armen Sánchez DO [address] [facility], [facility] [place] [address] PCP - General Family Medicine 08/25/23 documented as of this encounter
--- OUTSIDE RECORDS SUMMARY | 2024-10-23 12:53 | XMS_ITS | Encounter Summary ---
Demographics Address [address] [place] [address] Mobile Phone Email Address Email Address Preferred Language Georgian Marital Status Single Nondenominational Affiliation Unknown Race White Ethnic Group Not or Lati no Author Organization [facility] tem Address [id number] [address] [place] [address] Care Team Providers Care Interventional Radiologist Name Role Phone PrincessArmen Cedric [place] Primary Care Provider + [phone] Reason for Referral * Diagnostic Imaging (Routine) - Pending Review Specialty Diagnoses / Procedures Referred By Thom patel Referred To Contact Maternal and Medicine Diagnoses Abnormal genetic test during Maternal care for other (suspected) abnormality and damage, gastrointestinal anomalies, not applicable or unspecified Cystic fibrosis carrier Procedures US [facility] with or without consult Brionna Sanabria MD [address] [address] Phone: tel: fax: Maternal- Medicine at [facility] [address] [place] [address] Phone: tel: fax: Referral ID Status Reason Start Date Expiration Date V isits Requested Visits Authorized [id number] Pending Review 10/13/2024 10/13/2025 1 1 Reason for Visit * Diagnostic Imaging (Routine) - Pending Review Specialty Diagnoses / Procedures Referred By Thom patel Referred To Contact Maternal and Medicine Diagnoses Abnormal genetic test during Maternal care for other (suspected) abnormality and damage, gastrointestinal anomalies, not applicable or unspecified Cystic fibrosis carrier Procedures US [facility] with or without consult Brionna Sanabria MD [address] [facility] 1st [place] [address] Phone: tel: fax: Maternal- Medicine at [facility] [address] [place] [address] Phone: tel: fax: Referral ID Status Reason Start Date Expiration Date V isits Requested Visits Authorized [id number] Pending Review 10/13/2024 10/13/2025 1 1 Encounter Details Date Type Department Care Team (Latest Contact Info) Description 10/23/2024 12:53 PM EDT - 10/23/2024 11:59 PM EDT Hospital Encounter [facility] US Imaging [address] [place] [address] Abnormal genetic test during ; [...] drink = 0.6 oz pur e alcohol) [facility] Utilities Answer Date Recorded In [...] attend chur ch or hoahaoism services? Never 01/27/2024 Do you belong to any clubs o r organizations such as protestant groups, unions, fraternal or athletic groups, or [...] Answer Date Recorded Total Score 0 10/18/2024 [facility] of Occupat ional Health - Occupational [...] you need help finding a [facility] and/or a training [...] Info) Description 10/30/2024 11:00 AM EDT Appointment [facility] US Imaging [address] [facility] [place] [address] 10/30/2024 11:30 AM EDT Office Visit Maternal- Medicine at [facility] [address] [place] [address] Angela Perez MD [address], [address] [place] [address] 11/03/2024 1:00 PM EDT [facility] [address] [place] [address] Tiffany Easton MD [address] [facility] [place] [address] documented as of this encounter Procedures Procedure [...] 1:31 PM EDT) Anatomical Region Laterality Modality OB-SILVICULTURIST Ultrasound 10/23/2024 1:00 PM EDT Narrative 10/23/2024 2:58 PM EDT NAME: JEREMY BORDEN : 1995 SEX: F Accession Number: [id number] ORDERING PHYSICIAN: BRIONNA SANABRIA REFERRING PHYSICIAN: CLIFTON IVERSON Coding ----- --------- Procedures 33048: Limited OB / NAYE, 1 or More Fetuses Indication ----- --------- Abnormal finding on screening of mother-MOB + FOB CF carriers, Depression, Anxiety , Supervision of high risk , cystic fibrosis. History ----- --------- OB History 1. Para 0 [id number] Current ----- --------- Cell free DNA low [...] BORDEN : 1995 SEX: F Accession Number: [id number] ORDERING PHYSICIAN: BRIONNA SANABRIA REFERRING PHYSICIAN: CLIFTON IVERSON Coding ----- --------- Procedures 26500: Limited OB / NAYE, 1 or More Fetuses Indication ----- --------- Abnormal finding on screening of mother-MOB + FOB CF carriers,Depression, Anxiety , Supervision of high risk , cystic fibrosis. History ----- --------- OB History 1. Para 0 [id number] Current ----- --------- Cell free DNA low [...] with thepatient as necessary. Brionna Sanabria MD [facility] ORDERABLES Final Result documented in this encounter [...] documented as of this encounter Care Teams Interventional Radiologist Relationship Specialty Start Date End Date Armen Sánchez DO [address] [facility] [place] [address] PCP - General Family Medicine 08/25/23 documented as of this encounter
--- OUTSIDE RECORDS SUMMARY | 2024-10-23 13:45 | XMS_ITS | Encounter Summary ---
Demographics Address [address] [place] [address] Mobile Phone Email Address Email Address Preferred Language Greenlandic Marital Status Single Restorationism Affiliation Unknown Race White Ethnic Group Not or Lati no Author Organization [employer] tem Address [facility] [place] [id number] [address] [place] [address] Care Team Providers Care Plant Safety Leader Name Role Phone Armen Sánchez DO Primary Care Provider + [phone] Reason for Visit * Reason Comments Non-stress Test * OBGYN (Routine) - Pending Review Specialty Diagnoses / Procedures Referred By Thom patel Referred To Contact Maternal and Medicine Diagnoses Supervision of high risk in third trimester Procedures nonstress test - Maternal Medicine Corinne Driver DO [address] [address] Phone: tel: fax: Maternal- Medicine at [facility] [address] [place] [address] Phone: tel: fax: Referral ID Status Reason Start Date Expiration Date V isits Requested Visits Authorized [id number] Pending Review 10/19/2024 10/19/2025 4 4 Encounter Details Date Type Department Care Team (Late st Contact Info) Description 10/23/2024 1:45 PM EDT Support Visit Maternal- Medicine at [facility] [address] [place] [address] Cystic fibrosis carrier, antepartum (Primary Dx); Supervision of high risk in third trimester; Overweight Social History Tobacco Use Types Packs/Day Years Used Date Smoking Tobacco: Every Day Cigarettes 1 13.2 Started: 08/01/2011 Smokeless Tobacco: Never Alcohol Use Standard Drinks/Week Comments Not Currently 0 (1 standard drink = 0.6 oz pur e alcohol) [facility] Utilities Answer Date Recorded In the [...] often do you attend chur ch or pentecostal services? Never 01/27/2024 Do you belong to any clubs o r organizations such as congregation groups, unions, fraternal or athletic groups, or [...] Answer Date Recorded Total Score 0 10/18/2024 [facility] of Occupat ional Health - Occupational Stress [...] Sign Reading Time Taken Comments Blood Pressure 132/64 10/23/2024 2:04 PM EDT Pulse 88 10/23/2024 2:04 PM EDT Temperature - - Respiratory Rate - - Oxygen Saturation - - Inhaled Oxygen Concentration - - Weight - - Height - - Body Mass Index - - documented in this encounter Progress Notes * Jennifer Sheets RN - 10/23/2024 1:45 PM EDT Denies current cramping or contractions. Denies LOF, abnormal vaginal discharge or vaginal bleeding. +FM per patient. Denies headache, epigastric pain, visual disturbance or swelling. Instructed to notify physician if experiencing any of the following: intermittent low back pain abdominal or menstrual like cramping that is comes and goes or is constant vaginal pressure uterine contractions that are regular and timeable water breaks or feels a gush of fluid any vaginal bleeding that is heavier than a menstrual period decrease or absence of baby movement Advised to drink plenty of fluids, take all prescribed medications, and to keep all scheduled appointments documented in this encounter Plan of Treatment Upcoming Encounters Date Type Department Care Team (Late st Contact Info) Description 10/30/2024 11:00 AM EDT Appointment [facility] US Imaging [address] [place] [address] 10/30/2024 11:30 AM EDT Office Visit Maternal- Medicine at [facility] [address] [place] [address] Angela Perez MD [address] [facility], 1ST [place] [address] 11/03/2024 1:00 PM EDT [facility] [address] [place] [address] Tiffany Easton MD [address] [place] [address] documented as of this encounter Procedures Procedure Name Priority Date/Time Associated Diagnosis Comments NONSTRESS TEST Routine 10/24/2024 4:16 PM EDT Supervision of high risk in third trimester documented in this encounter Results * nonstress test - [...] this encounter Visit Diagnoses Diagnosis Cystic fibrosis carrier, antepartum- Primary Supervision of high risk in third trimester Overweight documented in this encounter Additional Health Concerns Assessment Noted Time PHQ-9 Depression Total Score: 0 10/19/19 25 4:00 AM EDT A Body Mass Index follow-up plan has been documented for the patient 08/10/2023 10:14 AM EDT documented as of this encounter Care Teams Plant Safety Leader Relationship Specialty Start Date End Date Armen Sánchez DO [address], [place] [address] PCP - General Family Medicine 08/25/23 documented as of this encounter
--- OUTSIDE RECORDS SUMMARY | 2024-10-26 09:32 | XMS_ITS | Clinical Summary ---
Demographics Address [address] [place] [address] Home Phone Work Phone Mobile Phone Email Address Email Address Preferred Language Slovenian Marital Status Single Mormonism Affiliation Unknown Race White Ethnic Group Not or Lati no Author Organization [facility] Address [address] [facility], [address] [place] [address] Care Team Providers Care Receiving Coordinator Name Role Phone Armen Sánchez Primary Care Provider [phone] Allergies Active Allergy Reactions Criticality Noted Date [...] today Need for prophylactic vaccin ation against ffadkkhiej-rqewbcq-ccfdcduse (DTP) 08/16/2018 Assessment & Plan (08/16/2018 4:03 [...] Hospital Encounter [facility] Labor and Delivery [address] [place] [address] Victorino Christie, Discharge Disposition: Home or Self [...] hemorrhage definitely seen. us Victorino Christie DO IMG US ORDERABLES Final Resu lt from Last 3 Months Insurance * Guarantor: Sapna Serrano Account Type Relation to Patient Date of Phone Billing Address Personal/Family Self 1995 [address] [place] [address] [employer] [facility] Care Teams Receiving Coordinator Relationship Specialty Start Date End Date Armen Sánchez DO [address] [place] [address] PCP - General Family Medicine 04/27/24
--- OUTSIDE RECORDS SUMMARY | 2024-10-26 09:32 | XMS_ITS | Encounter Summary ---
Author Organization [facility] Address [address] [place] [address] Care Team Providers Care Oyster Harvester Name Role Phone Emi Bronson [facility] Unavailable + [phone] Armen Sánchez MD Primary Care Provider + [phone] Encounter Details Date Type Department Care Team (Late st Contact Info) Description 09/21/2024 Abstract [facility] OB [address] [place] [address] Curtis Paez [address] [place], [place] [phone] Social History Tobacco Use Types Packs/Day Years [...] on filedocumented in this encounter Care Teams Oyster Harvester Relationship Specialty Start Date End Date Armen Sánchez MD [address] [facility] [address] [place] [address] PCP - General Family Medicine 05/05/24 Emi Bronson, [facility] [address] [place] [address] Behavioral Health 04/12/24 09/26/24 documented as of this encounter
--- OUTSIDE RECORDS SUMMARY | 2024-10-26 09:32 | XMS_ITS | Encounter Summary ---
Author Organization [facility] Address [address] [place] [address] Care Team Providers Care Paper Goods Machine Set Up Operator Name Role Phone Armen Sánchez MD Primary Care Provider [phone] Encounter Details Date Type Department Care Team (Late st Contact Info) Description 10/03/2024 Abstract [facility] [address] [place] [address] Curtis Paez, [address] [place], [place] [id number] Social History Tobacco Use Types Packs/Day Years [...] on filedocumented in this encounter Care Teams Paper Goods Machine Set Up Operator Relationship Specialty Start Date End Date Armen Sánchez MD PCP - General Family Medicine 05/05/24 documented as of this encounter
--- OUTSIDE RECORDS SUMMARY | 2024-10-26 09:32 | XMS_ITS | Encounter Summary ---
Author Organization [facility] Address [address] [facility] [facility] [place] [address] Care Team Providers Care Tea And Spice Supervisor Name Role Phone Emi Bronson [facility] Unavailable + [phone] Armen Sánchez MD Primary Care Provider + [phone] Encounter Details Date Type Department Care Team (Late st Contact Info) Description 09/21/2024 Abstract [facility] OB [address] [place] [address] Curtis Paez [address] [place], [place] [address] Social History Tobacco Use Types Packs/Day Years [...] on filedocumented in this encounter Care Teams Tea And Spice Supervisor Relationship Specialty Start Date End Date Armen Sánchez MD [address] [facility] [address] [place] [address] PCP - General Family Medicine 05/05/24 Emi Bronson, [facility] [address] [place] [address] Behavioral Health 04/12/24 09/26/24 documented as of this encounter
--- OUTSIDE RECORDS SUMMARY | 2024-10-26 09:32 | XMS_ITS | Encounter Summary ---
Author Organization [address] tem Address [facility] [id number] [address] [place] [address] Care Team Providers Care Typesetter Perforator Operator Name Role Phone Armen Sánchez Primary Care Provider Encounter Details Date Type Department Care Team (Late st Contact Info) Description 08/17/2023 Orders Only [facility] Obstetrics/Gynecology [address] [place] [address] La Murray CMA Screening for STD (sexually [...] Department Care Team (Late Contact Info) Description 10/30/2024 11:00 AM EDT Appointment [facility] US Imaging [address] [place] [address] 10/30/2024 11:30 AM EDT Office Visit Maternal- Medicine at [facility] [address] [facility] [place] [address] Angela Perez MD [address] [facility], [address]LOOR [place], [place] [address] 11/03/2024 1:00 PM EDT [facility]ine [facility] [address] [place] [address] Tiffany Easton MD [address] [place] [address] documented as of this encounter Procedures Procedure [...] HIV 1&2 AB/AG Non Reactive SUNQUEST 08/10/2023 us Claire Robertson MD LAB [...] ORDERABLES Final Res ult Performing Organization Address City/[facility] Co de Phone Number SUNQUEST documented in this encounter Visit Diagnoses Diagnosis Screening for STD (sexually transmitted disease) documented in this encounter Additional Health Concerns Assessment Noted Time PHQ-9 Depression Total Score: 5 08/10/19 9:41 AM EDT A Body Mass Index follow-up plan has been documented for the patient 08/10/2023 10:14 AM EDT documented as of this encounter Care Teams Typesetter Perforator Operator Relationship Specialty Start Date End Date Armen Sánchez DO [address], [facility] [place] [address] PCP - General Family Medicine 08/25/23 documented as of this encounter
--- OUTSIDE RECORDS SUMMARY | 2024-10-26 09:33 | XMS_ITS | Encounter Summary ---
Author Organization [facility] Address [address] [place] [address] Care Team Providers Care Cafeteria Team Leader Name Role Phone Armen Sánchez MD Primary Care Provider Encounter Details Date Type Department Care Team (Late st Contact Info) Description 10/12/2024 Clinisync Result Encounter [facility] External Department Unsolicited Magan Paez, DO [address] [facility] [address] [place], [place] [phone] Social History Tobacco Use Types Packs/Day Years [...] Diagnosis Comments US OB BPP W NON-STRESS 10/12/2024 8:55 PM EDT documented in this encounter Results * US OB BPP W NON-STRESS (10/12/2024 8:55 PM EDT) Anatomical Region Laterality Modality Other 10/12/2024 8:55 PM EDT Narrative 10/12/2024 8:58 [place] [address] Ultrasound Report Signed Patient: SAPNA SERRANO MR#: [id number] : 1995 Acct:[id number] Age/Sex: 29 / F ADM Date: 10/12/24 Loc: [facility] 250-[address]: Magan Paez D.O. Ordering Physician: Magan Paez D.O. Date of Service: 10/12/24 Procedure(s): US OB BPP w non-stress Accession Number(s): [id number] cc: ARMEN SÁNCHEZ ; Magan Paez D.O. [place] [id number] Patient Name: SAPNA SERRANO MRN: [facility]:[id number] date: 1995 Sex: F Assigned Patient Location: [facility] Current Patient Location: [facility] Accession/Order Number: [id number] Exam Date: 10/12/2024 20:55 Report Date: 10/12/2024 20:55 At the request of: MAGAN PAEZ DO [...] Schumacher M.D. 10/12/2024 8:55 PM Dictation Location: [place] [address] Electronically authenticated by: [id number] Y Date: 10/12/2024 20:55 Dictated By: Man Schumacher D.O. Signed By: 10/12/242057 DD/ 54 TD/TT: Truck Washer: Procedure Note Radiology, Radiologist, - 10/13/[address] [address] Ultrasound Report Signed Patient: SAPNA SERRANO KMR#: [id number] : 1995Acct:[id number] Age/Sex: 29 / FADM Date: 10/12/24 Loc: [facility] 250-[address]: Magan Paez D.O. Ordering Physician: Magan Paez D.O. Date of Service: 10/12/24 Procedure(s): US OB BPP w non-stress Accession Number(s): [id number] cc: ARMEN SÁNCHEZ ; Magan Paez D.O. The [place] [id number] Patient Name: SAPNA SERRANO MRN: [id number] date: 1995 Sex: F Assigned Patient Location: [facility] Current Patient Location: [facility] Accession/Order Number: [id number] Exam Date: 10/12/2024 20:55 Report Date: 10/12/2024 20:55 At the request of: MAGAN PAEZ DO Procedure: US OB BPP w non-stress Ultrasound biophysical profile HISTORY: Cystic fibrosis carrier Adequate breathing movement, gross body movement, tone and amniotic fluid volume for total score of 8 out of 8. The amniotic fluidindex is 17.0cm within normal limits. The heart rate 142 bpm. US/US OB BPP w non-stress IMPRESSION: Adequate ultrasound biophysical profile Impression dictated by: Man Schumacher M.D. 10/12/2024 8:55 PM Dictation Location: [place] [address] Electronically authenticated by: [id number] Y Date: 0:55 Dictated By: Man Schumacher D.O. Signed By:10/12/242057 DD/ 54 TD/TT: Truck Washer: Magan Paez DO [facility] Final Result documented in this encounter Visit Diagnoses Not on filedocumented in this encounter Care Teams Cafeteria Team Leader Relationship Specialty Start Date End Date Armen Sánchez MD PCP - General Family Medicine 05/05/24 documented as of this encounter
--- OUTSIDE RECORDS SUMMARY | 2024-10-26 09:33 | XMS_ITS | Encounter Summary ---
Author Organization [facility] [facility] Address [facility] [id number] [address] [place] [address] Care Team Providers Care Well Logging Operator Mud Analysis Name Role Phone SepidehArmen tristan Cedric [place] Primary Care Provider Encounter Details Date Type Department Care Team (Latest Contact Info) Description 10/23/2024 Travel Social History Tobacco Use Types Packs/Day Years Used Date Smoking Tobacco: Every Day Cigarettes 1 13.2 Started: 08/01/2011 Smokeless Tobacco: Never Alcohol Use Standard Drinks/Week Comments Not Currently 0 (1 standard drink = 0.6 oz pur e alcohol) [facility] Utilities Answer Date Recorded In the [...] Answer Date Recorded Total Score 0 10/18/2024 [facility] [...] Info) Description 10/30/2024 11:00 AM EDT Appointment [facility] US Imaging [address] [place] [phone] 10/30/2024 11:30 AM EDT Office Visit Maternal- Medicine at [facility] [address] [place] [address] Angela Perez MD [address] [facility], [address] [place] [address] 11/03/2024 1:00 PM EDT [facility] [address] [place] [phone] Tiffany Easton MD [address] [place] [phone] documented as of this encounter Visit Diagnoses Not on filedocumented in this encounter Additional Health Concerns Assessment Noted Time PHQ-9 Depression Total Score: 0 10/19/19 25 4:00 AM EDT A Body Mass Index follow-up plan has been documented for the patient 08/10/2023 10:14 AM EDT documented as of this encounter Care Teams Well Logging Operator Mud Analysis Relationship Specialty Start Date End Date Armen Sánchez DO [address] [facility], [place] [address] PCP - General Family Medicine 08/25/23 documented as of this encounter
--- OUTSIDE RECORDS SUMMARY | 2024-10-26 09:33 | XMS_ITS | Encounter Summary ---
Author Organization [facility] Address [address] [place] [address] Care Team Providers Care Vehicle Assembly Inspector Name Role Phone Armen Sánchez MD Primary Care Provider [phone] Encounter Details Date Type Department Care Team (Late st Contact Info) Description 10/17/2024 Bamboo flowsheet [facility] OB [address] [facility] [phone] Jocy Ruby PA [address] [facility] [address] [place], [place] [id number] Social History Tobacco Use Types Packs/Day Years [...] on filedocumented in this encounter Care Teams Vehicle Assembly Inspector Relationship Specialty Start Date End Date Armen Sánchez MD PCP - General Family Medicine 05/05/24 documented as of this encounter
--- OUTSIDE RECORDS SUMMARY | 2024-10-26 09:33 | XMS_ITS | Encounter Summary ---
Author Organization [facility] tem Address [id number] [address] [place] [address] Care Team Providers Care Glove Operator Name Role Phone PrincessArmen Cedric [place] Primary Care Provider Encounter Details Date Type Department Care Team (Late st Contact Info) Description 10/24/2024 Telephone Maternal- Medicine at [facility] [address] [place] [phone] Suresh Valencia MD [address] [facility] [place] [address] [place] [address] Social History Tobacco Use Types Packs/Day Years Used Date Smoking Tobacco: Every Day Cigarettes 1 13.2 Started: 08/01/2011 Smokeless Tobacco: Never Alcohol Use Standard Drinks/Week Comments Not Currently 0 (1 standard drink = 0.6 oz pur e alcohol) [facility] Utilities Answer Date Recorded In the past 12 months has [employer], gas, oil, or water [employer] threatened to shut off services in your home? No 08/25/2023 Social Connection and Isolation Panel [NHANES] A nswer Date Recorded In a typical week, how many times do you talk on the phone with family, friends, or neighbors? Three times a week 01/27/2024 How often do you get togethe r with friends or relatives? Once a week 01/27/2024 How often do you attend [facility] or sabianism services? Never 01/27/2024 Do you [...] Answer Date Recorded Total Score 0 10/18/2024 [facility] - [...] Recorded Do you need help finding a [facility] career center and/or a training [...] encounter Miscellaneous Notes * Telephone Encounter - Mya Jaime - 10/24/2024 1:12 PM EDT Per Joyce Loaiza, insurance writer [facility] stating that we will wait to schedule from the next tracker on 10/30. Ammunition Assembly Laborer also asked if pt wanted an nst scheduled on 10/30. documented in this encounter Plan of Treatment Upcoming Encounters Date Type Department Care Team (Late st Contact Info) Description 10/30/2024 11:00 AM EDT Appointment [facility] US Imaging [address] [place] [phone] 10/30/2024 11:30 AM EDT Office Visit Maternal- Medicine at [facility] [address] [place] [phone] Angela Perez MD [address], [address] [place] [address] 11/03/2024 1:00 PM EDT [facility] [address] [place] [phone] Tiffany Easton MD [address] [facility] [place] [phone] documented as of this encounter Visit Diagnoses Not on filedocumented in this encounter Additional Health Concerns Assessment Noted Time PHQ-9 Depression Total Score: 0 10/19/19 25 4:00 AM EDT A Body Mass Index follow-up plan has been documented for the patient 08/10/2023 10:14 AM EDT documented as of this encounter Care Teams Glove Operator Relationship Specialty Start Date End Date Armen Sánchez DO [address] [place] [address] PCP - General Family Medicine 08/25/23 documented as of this encounter
--- OUTSIDE RECORDS SUMMARY | 2024-10-26 09:33 | XMS_ITS | Encounter Summary ---
Author Organization [employer] tem Address [id number] [address] [place] [address] Care Team Providers Care Gas Well Drilling Manager Name Role Phone PrincessArmen Cedric [place] Primary Care Provider [phone] Encounter Details Date Type Department Care Team (Late st Contact Info) Description 10/17/2024 Telephone [facility] - Family Medicine [address] [place] [address] Bernadette Zhang CMA Social History Tobacco Use Types Packs/Day Years Used Date Smoking Tobacco: Every Day Cigarettes 1 13.2 Started: 08/01/2011 Smokeless Tobacco: Never Alcohol Use Standard Drinks/Week Comments Not Currently 0 (1 standard drink = 0.6 oz pur e alcohol) [facility] Utilities Answer Date Recorded In the past 12 months has [employer], gas, oil, or water company threatened to [...] often do you attend chur ch or gnosticism services? Never 01/27/2024 Do you belong to any clubs o r organizations such as catholic groups, unions, fraternal or athletic groups, or [...] Answer Date Recorded Total Score 0 10/18/2024 [facility] Occupat ional Health [...] Do you need help finding a l al career center and/or a training program? No [...] Telephone Encounter - Bernadette Zhang CMA - 10/17/2024 12:39 PM EDT Pt called and left message that she had a sore throat. I tried calling her back. It looks like she is . Should she see her ob for this? * Telephone Encounter - Armen Sánchez DO - 10/17/2024 12:39 PM EDT Yes please * Telephone Encounter - Bernadette Zhang CMA - 10/17/2024 12:39 PM EDT I called and left a message for her to go to her OB documented in this encounter Plan of Treatment Upcoming Encounters Date Type Department Care Team (Late st Contact Info) Description 10/30/2024 11:00 AM EDT Appointment [facility] US Imaging [address] [place] [address] 10/30/2024 11:30 AM EDT Office Visit Maternal- Medicine at [facility] [address] [place] [address] Angela Perez MD [address], [address] [place] [address] 11/03/2024 1:00 PM EDT [facility] [address] [place] [address] Tiffany Easton MD [address] [facility] [place] [address] documented as of this encounter Visit Diagnoses Not on filedocumented in this encounter Additional Health Concerns Assessment Noted Time PHQ-9 Depression Total Score: 0 10/27/19 10:25 AM EDT A Body Mass Index follow-up plan has been documented for the patient 08/10/2023 10:14 AM EDT documented as of this encounter Care Teams Gas Well Drilling Manager Relationship Specialty Start Date End Date Armen Sánchez DO [address] [place] [address] PCP - General Family Medicine 08/25/23 documented as of this encounter
--- OUTSIDE RECORDS SUMMARY | 2024-10-26 09:33 | XMS_ITS | Encounter Summary ---
Author Organization [facility] Address [address] [place] [address] Care Team Providers Care Agency Sales Development Associate Name Role Phone Armen Sánchez MD Primary Care Provider [phone] Encounter Details Date Type Department Care Team (Late st Contact Info) Description 10/09/2024 Abstract [facility] OB [address] [place] [address] [place] [phone] Reanna Fernandez MA Social History Tobacco Use [...] on filedocumented in this encounter Care Teams Agency Sales Development Associate Relationship Specialty Start Date End Date Armen Sánchez MD PCP - General Family Medicine 05/05/24 documented as of this encounter
--- OUTSIDE RECORDS SUMMARY | 2024-10-26 09:33 | XMS_ITS | Encounter Summary ---
Author Organization [facility] tem Address [id number] [address] [place] [address] Care Team Providers Care Harness Rigger Name Role Phone MasoodArmen silverman Primary Care Provider Encounter Details Date Type Department Care Team (Late st Contact Info) Description 10/25/2024 Orders Only [facility] Internal Medicine - Family Medicine [address] [place] [address] Ref Prov, [place] [address] Social History Tobacco Use Types Packs/Day Years Used Date Smoking Tobacco: Every Day Cigarettes 1 13.2 Started: 08/01/2011 Smokeless Tobacco: Never Alcohol Use Standard Drinks/Week Comments Not Currently 0 (1 standard drink = 0.6 oz pur e alcohol) [facility] Utilities Answer Date Recorded In the past 12 months has [employer], gas, oil, or water company threatened to [...] any clubs o r organizations such as christianity groups, unions, fraternal or athletic groups, or [...] Recorded Do you need help finding a [facility] career center and/or a training program? No [...] Info) Description 10/30/2024 11:00 AM EDT Appointment [facility] US Imaging [address] [place] [address] 10/30/2024 11:30 AM EDT Office Visit Maternal- Medicine at [facility] [address] [place] [address] Angela Perez MD [address] [facility], [address] [place] [address] 11/03/2024 1:00 PM EDT [facility] [address] [place] [address] Tiffany Easton MD [address] [place] [phone] documented as of this encounter Procedures Procedure Name Priority Date/Time Associated Diagnosis Comments US PELVIC WITH TRANSVAGINAL Routine 09/14/2024 2:22 PM EDT documented in this encounter Results * Ultrasound pelvic with transvaginal (09/14/2024 2:22 PM EDT) Anatomical Region Laterality Modality Body, Pelvis [...] documented as of this encounter Care Teams Harness Rigger Relationship Specialty Start Date End Date Armen Sánchez DO [address] [facility] [place] [address] PCP - General Family Medicine 08/25/23 documented as of this encounter
--- OUTSIDE RECORDS SUMMARY | 2024-10-26 09:33 | XMS_ITS | Encounter Summary ---
Author Organization [facility] Address [address] [place] [address] Care Team Providers Care Proposal Consultant Name Role Phone Galen Bronsonalfred Munson [facility] Unavailable + [phone] Armen Sánchez MD Primary Care Provider [phone] Encounter Details Date Type Department Care Team (Late st Contact Info) Description 07/11/2024 Orders Only [facility] OB [address] [place] [address] Mary Quinn LPN [address] [place] [address] Social History Tobacco Use Types Packs/Day [...] EDT) Swab Cervical swab / Unknown us Ejannine Nurse [facility] Ob LAB CYTOLOGY ORDERABLES Final Result EXTERNAL LAB documented in this encounter Visit Diagnoses Not on filedocumented in this encounter Care Teams Proposal Consultant Relationship Specialty Start Date End Date Armen Sánchez MD [address] [place] [address] PCP - General Family Medicine 05/05/24 Emi Bronson [facility] [address] [place] [address] Behavioral Health 04/12/24 09/26/24 documented as of this encounter
--- OUTSIDE RECORDS SUMMARY | 2024-10-26 09:33 | XMS_ITS | Encounter Summary ---
Author Organization [facility] Address [address] [facility] [place] [address] Care Team Providers Care Guest Services Coordinator Name Role Phone Aiyana Emi Munson [facility] Unavailable + [phone] Armen Sánchez MD Primary Care Provider + [phone] Encounter Details Date Type Department Care Team (Late st Contact Info) Description 09/14/2023 Abstract [facility] [address] [facility] [address] [place] [phone] Nav Ames MD [address] [facility] [address] [place] [address] Social History Tobacco Use Types Packs/Day Years [...] on filedocumented in this encounter Care Teams Guest Services Coordinator Relationship Specialty Start Date End Date Armen Sánchez MD [address] [facility] [address] [place] [address] PCP - General Family Medicine 05/05/24 Emi Bronson, [facility] [address] [facility] [address] [place] [address] Behavioral Health 04/12/24 09/26/24 documented as of this encounter
--- OUTSIDE RECORDS SUMMARY | 2024-10-26 09:33 | XMS_ITS | Clinical Summary ---
Author Organization [email or web address] Address [id number] [address] [place] [address] Care Team Providers [facility] Nurse Name Role Phone MasoodArmen silverman Primary Care Provider Allergies Active Allergy Reactions Criticality Noted Date Comments Penicillins Other (See Comments) 08/10/2023 Yeast infections Medications FLUoxetine (PROzac) 20 mg capsule Take 1 capsule (20 mg total) by mouth in the morning. 30 capsule 3 Active Additional Information Patient not taking.Reported on 10/23/2024 magnesium oxide (MAGOX) 400 mg tablet Take [...] 2 known variants for CF []Genetic Counselling: [x]Peds Cystic Fibrosis Clinic 09/19/24 Complete note in EPIC []Peds Urology: []Peds Ortho: []Peds Surgery: []Peds Neurology: []Peds Neurosurgery: []Peds Craniofacial: []NICU Consult: []Palliative Care Consult: []SGM: []Life Connection: [][place]: [] MRI: []Nationwide: [][facility]: []UH: [x]JO CHS: per Office Delivery Recommendation: [] Term at local hospital [x] Term at [facility] Surveillance Plan: [x] F/U Survey sched 08/25/24 at [facility] [x] Growth q _4_ weeks Sched 10/30/[address] 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 -timing of delivery to be further addressed pending clinical course Maternal care for other (pavel pected) abnormality and damage, gastrointestinal anomalies, not applicable or unspecified 09/30/2024 Overweight 01/27/2024 Depression 10/27/2023 Anxiety 10/27/2023 Onychomycosis 10/27/2023 Rectal bleeding 08/26/2023 Vitamin D deficiency 08/16/2018 Overview (09/27/2023): Last Assessment & Plan: Labs today Estimated Date of Delivery Comme nts Yes 12/12/2024 Based on last me nstrual period of 03/07/2024, test negative 09/03/23 at 1242 Resolved Problems Problem Noted Date Diagnosed Date Resolved Date 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10/03 Encounters Date Type Department Care Team Description 10/25/2024 Orders Only [facility] - Family Medicine [address] [place] [phone] Ref Prov, Not In System 10/24/2024 Telephone Maternal- Medicine at [facility] [address] [place] [phone] Suresh Valencia MD 10/23/2024 1:45 PM EDT Support Visit Maternal- Medicine at [facility] [address] [place] [phone] Cystic fibrosis carrier, antepartum (Primary Dx); Supervision of high risk in third trimester; Overweight 10/23/2024 12:53 PM EDT - 10/23/2024 11:59 PM EDT Hospital Encounter [facility] Imaging [address] [place] [phone] Abnormal genetic test during ; Maternal care for other (suspected) abnormality and damage, gastrointestinal anomalies, not applicable or unspecified; Cystic fibrosis carrier Discharge Disposition: Home 10/23/2024 Travel 10/19/2024 3:14 PM EDT - 10/19/2024 11:59 PM EDT Hospital Encounter [facility] [address] [place] [phone] Abnormal genetic test during ; Maternal care for other (suspected) abnormality and damage, gastrointestinal anomalies, not applicable or unspecified; Cystic fibrosis carrier Discharge Disposition: Home 10/19/2024 2:00 PM EDT [facility] [address] [facility] [place] [address] Clifton Bond DO GA: [id number] 10/18/2024 Travel 10/17/2024 Telephone [facility] - [facility] [address] [place] [phone] Bernadette Zhang, CABINET [employer]KER 10/13/2024 Orders Only Maternal- Medicine at [facility] [address] [place] [address] Miriam Joseph RN Abnormal genetic test during (Primary Dx); Maternal care for other (suspected) abnormality and damage, gastrointestinal anomalies, not applicable or unspecified; Cystic fibrosis carrier 10/12/2024 3:05 PM EDT - 10/12/2024 11:59 PM EDT Hospital Encounter [facility] [address] [facility] [place] [address] Obesity in , antepartum; Supervision of high risk , antepartum Discharge Disposition: Home 10/11/2024 Travel 10/10/2024 [facility] [address] [place] [address] Lyric Sánchez RN 10/05/2024 3:13 PM EDT - 10/05/2024 11:59 PM EDT Hospital Encounter [facility] Imaging [address] [place] [phone] Supervision of high risk , antepartum; Obesity in , antepartum Discharge Disposition: Home 10/05/2024 Travel 09/29/2024 4:25 PM EDT Office Visit Maternal- Medicine at [facility] [address] [place] [address] Edil Bullock MD 29 weeks gestation of (Primary Dx); Cystic fibrosis carrier; Maternal care for other (suspected) abnormality and damage, gastrointestinal anomalies, not applicable or unspecified 09/29/2024 2:41 PM EDT - 09/29/2024 11:59 PM EDT Hospital Encounter [facility] [address] [place] [address] Suresh Valencia MD Cystic fibrosis carrier; Abnormal genetic test during Discharge Disposition: Home 09/29/2024 Travel 09/25/2024 Orders Only Maternal- Medicine at [facility] [address] [place] [address] Ref Prov, Not In System 09/15/2024 Telephone Maternal- Medicine at [facility] [address] [place] [address] Miriam Joseph, RN 09/07/2024 10:30 AM EDT [facility] [address] [facility] [address] [place] [phone] Rashida Silva MD 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); Encounter for consultation 09/07/2024 Orders Only Maternal- Medicine at [facility] [address] [place] [address] Miriam Joseph, RN 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); Abnormal genetic test during 09/05/2024 Travel 08/25/2024 Travel 08/18/2024 Orders Only Maternal- Medicine at [facility] [address] [place] [address] Barbra Samuel RN 08/18/2024 Orders Only Maternal- Medicine at [facility] [address] [place] [address] Barbra Samuel RN 08/17/2024 Telephone Maternal- Medicine at [facility] [address] [place] [address] Rachel Rodriguez, LGC 07/28/2024 1:48 PM EDT - 07/28/2024 11:59 PM EDT Hospital Encounter [facility] [address] [facility] [address] [place] [address] Discharge Disposition: Home 07/28/2024 10:00 AM EDT Office Visit Maternal- Medicine at [facility] [address] [place] [address] Suresh Valencia MD 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) 07/28/2024 8:42 AM EDT - 07/28/2024 1:47 PM EDT Hospital Encounter [facility] [address] [place] [phone] Abnormal genetic test during ; Screening, , for anatomic survey Discharge Disposition: Home 07/28/2024 Orders Only Maternal- Medicine at [facility] [address] [place] [phone] Miriam Joseph RN 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); Abnormal genetic test during 07/28/2024 Travel from Last 3 Months Immunizations Immunization [...] Recorded In the past 12 months has [employer], gas, oil, or water every[employer] threatened to shut off services in your [...] do you attend [facility] or yazdanism services? Never 01/27/2024 Do you [...] Answer Date Recorded Total Score 0 10/18/2024 [facility] - [...] Recorded Do you need help finding a [facility] and/or a training program? [...] Pulse 88 10/23/2024 2:04 PM EDT Temperature 36.5 C (97.7 F) 01/27/2024 9:54 AM EDT Respiratory Rate 18 01/27/2024 9:54 AM EDT Oxygen Saturation 99% 01/27/2024 9:54 AM EDT Inhaled Oxygen Concentration - - Weight 95.3 kg (210 lb) 10/19/2024 2:01 PM EDT Height 162.6 cm (5' 4.02 ) 07/28/2024 9:19 AM ED T Body Mass Index 36.03 07/28/2024 9:19 AM EDT Plan of Treatment Upcoming Encounters Date Type Department Care Team (Late st Contact Info) Description 10/30/2024 11:00 AM EDT Appointment [facility] [address] [facility] [place] [phone] 10/30/2024 11:30 AM EDT Office Visit Maternal- Medicine at [facility] [address] [place] [phone] Angela Perez MD [address] [place] [address] 11/03/2024 1:00 PM EDT [facility] [address] [place] [address] Tiffany Easton MD [address] [facility] [place] [phone] Health Maintenance Due Date Last Done Comments Adult BMI Follow Up Plan 08/09/2024 08/10/2023 Influenza Vaccine 12/04/2024 Tobacco Counseling 02/24/2025 08/25/2023 Depression Screening 10/18/2025 10/18/2024 Adult BMI Screening 10/19/2025 10/19/2024 Tobacco Screening 10/19/2025 10/19/2024 Pap Smear 07/07/2027 07/06/2024, 04/0 06/2024, 07/06/2024, Additional history exists DTaP,Tdap and Td Vaccines (2 - Td or Tdap) 08/16/2028 08/16/2018 Medical Devices Not on file Procedures Procedure Name Priority Date/Time Associated Diagnosis Comments NONSTRESS TEST Routine 10/24/2024 4:16 PM EDT Supervision of high risk in third trimester [facility] LMTD OB, 1 OR MORE FETUS Routine 10/23/2024 1:31 PM EDT Abnormal genetic test during Maternal care for other (suspected) abnormality and damage, gastrointestinal anomalies, not applicable or unspecified Cystic fibrosis carrier [facility] AMNIOTIC FLUID VOLUME ASSESSMENT Routine 10/19/2024 3:42 PM EDT Abnormal genetic test during Maternal care for other (suspected) abnormality and damage, gastrointestinal anomalies, not applicable or unspecified Cystic fibrosis carrier US [facility] AMNIOTIC FLUID VOLUME ASSESSMENT Routine 10/12/2024 4:46 PM EDT Obesity in , antepartum Supervision of high risk , antepartum [facility] LMTD OB, 1 OR MORE FETUS Routine 10/05/2024 4:29 PM EDT Supervision of high risk , antepartum Obesity in , antepartum US MFM OB FOLLOW-UP, 1 FETUS Routine 09/29/2024 4:32 PM EDT Cystic fibrosis carrier Abnormal genetic test during US PREG LMTD 1 OR MORE FETUS Routine 09/25/2024 8:28 AM EDT US PELVIC WITH TRANSVAGINAL Routine 09/14/2024 2:22 PM EDT GLUCOSE TOLERANCE, 1 HOUR Routine 08/30/2024 CBC (NO DIFF) Routine 08/30/2024 US MFM OB FOLLOW-UP, 1 FETUS Routine 08/25/2024 10:25 AM EDT Cystic fibrosis carrier Abnormal genetic test during US MFM COMPREHENSIVE ANATOMIC SURVEY Routine 07/28/2024 11:32 AM EDT Abnormal genetic test during Screening, , for anatomic survey SEND OUT TEST Routine 07/28/2024 11:05 AM EDT SEND OUT TEST Routine 07/28/2024 11:05 AM EDT HIGH RISK HPV W/FAUSTINA Routine 07/06/2024 from Last 3 Months or Most Recently Relevant to Health Maintenance Results * nonstress test - Maternal Medicine [...] OB GYNE ORDERABLES Final Res ult ASOBGYN * MFM LMTD OB, 1 OR MORE FETUS (10/23/2024 1:31 PM EDT) Only the most recent of7 resultswithin the time period is included. Anatomical Region Laterality Modality OB-LICENSED FINAL EXPENSE AGENTS Ultrasound 10/23/2024 1:00 PM EDT Narrative 10/23/2024 2:58 PM EDT NAME: JEREMY BORDEN : 1995 SEX: F Accession Number: [id number] ORDERING PHYSICIAN: BRIONNA SANABRIA REFERRING PHYSICIAN: CLIFTON BOND Coding ----- --------- Procedures 66213: Limited OB / NAYE, 1 or More Fetuses Indication ----- --------- Abnormal finding on screening of mother-MOB + FOB CF carriers, Depression, Anxiety , Supervision of high risk , cystic fibrosis. History ----- --------- OB History 1. Para 0 [id number] Current ----- --------- Cell free DNA low [...] BORDEN : 1995 SEX: F Accession Number: [id number] ORDERING PHYSICIAN: BRIONNA SANABRIA REFERRING PHYSICIAN: CLIFTON BOND Coding ----- --------- Procedures 13965: Limited OB / NAYE, 1 or More Fetuses Indication ----- --------- Abnormal finding on screening of mother-MOB + FOB CF carriers,Depression, Anxiety , Supervision of high risk , cystic fibrosis. History ----- --------- OB History 1. Para 0 [id number] Current ----- --------- Cell free DNA low [...] byprimary OB provider unless otherwise specified by [facility]. Results forwarded to ordering provider so they can follow up with thepatient as necessary. us Brionna Sanabria MD G US ORDERABLES Final Result * Ultrasound limited 1 or more fetus (09/25/2024 8:28 AM EDT) Anatomical Region Laterality Modality OB-LICENSED FINAL EXPENSE AGENTS Ultrasound us Not In System Ref Prov IMG US ORDERABLES Final R esult * Ultrasound pelvic with transvaginal (09/14/2024 2:22 PM EDT) Anatomical Region Laterality Modality Body, Pelvis Ultrasound us Not In System Ref Prov IMG US ORDERABLES Final R esult * Glucose tolerance, 1 hour (08/30/2024) Glucose Tolerance Test 1 Hour 66 MANUALLY TRANSCRIBED RESULTS Blood Venous blood / Unknown us Not In System Ref Prov LAB BLOOD ORDERABLES Leti l Result Performing Organization Address [facility] de Phone Number MANUALLY TRANSCRIBED RESULTS * CBC without diff (08/30/2024) Hemoglobin 13.0 MANUALLY TRANSCRIBED RESULTS Hematocrit 38.8 MANUALLY TRANSCRIBED RESULTS Rbc Mcv (Fl) By Automated Count 89.8 MANUALLY TRANSCRIBED RESULTS Platelets 272 MANUALLY TRANSCRIBED RESULTS Blood Venous blood / Unknown us Not In System Ref Prov LAB BLOOD ORDERABLES Leti l Result Performing Organization Address [facility] Co de Phone Number MANUALLY TRANSCRIBED RESULTS * Send Out Test (07/28/2024 11:05 AM EDT) Only the most recent of2 resultswithin the time period is included. Test name: KNOWN MUTATION ANALYSIS CFTR GENE 07/28/2024 1:55 PM EDT [facility] Specimen 3 MATERNAL AMNIOTIC FLUID 2 EDTA AND 1 SODIUM HEP MATERNAL 07/28/2024 1:55 PM EDT [facility] Sent to [facility] [employer] [id number] 07/28/2024 2:18 PM EDT [facility] Comment:Corrected on 07/28 A T 1418: Previously reported as [facility] [employer] [id number] Test result See separate report. View in [employer] or in [employer]. 08/23/2024 7:01 PM EDT [facility] MISCELLANEOUS 07/28/2024 11: 05 AM EDT 07/28/2024 1:53 PM EDT us Suresh Valencia MD LAB ORDERABLES Edited Result - Final [facility] * High risk HPV w/faustina (07/06/2024) Other High Risk Hpv NEGATIVE MANUALLY TRANSCRIBED RESULTS Thin Prep Cervix uteri structure / Unknown us Not In System Ref Prov LAB BLOOD ORDERABLES Leti l Result MANUALLY TRANSCRIBED RESULTS from Last 3 Months or Most Recently Relevant to Health Maintenance Insurance * Guarantor: Sapna Serrano Account Type Relation to Patient Date of Phone Billing Address Personal/Family Self 1995 [address] [place] [address] [employer] Member Subscriber Plan / Payer (Ef fective 2023-Present) Name:Sapna Serranoy Relation to Subscriber:Self Name:Sapna Serranoy Payer ID:Not on file Type:Not on file Address: [place] [id number] Care Teams [facility] Nurse Relationship Specialty Start Date End Date Armen Sánchez DO [address] [place] [address] PCP - General Family Medicine 08/25/23
--- OUTSIDE RECORDS SUMMARY | 2024-10-26 09:33 | XMS_ITS | Encounter Summary ---
Demographics Address [address] [place] [address] Mobile Phone Email Address Email Address Preferred Language Italian Marital Status Single Faith Affiliation Unknown Race White Ethnic Group Not or Lati no Author Organization [facility] [employer] [facility] tem Address [id number] [address] [place] [address] Care Team Providers Care Warehouse Analyst Name Role Phone PrincessArmen Cedric [place] Primary Care Provider + [phone] Reason for Referral * Diagnostic Imaging (Routine) - Pending Review Specialty Diagnoses / Procedures Referred By Thom Referred To Contact Maternal and Medicine Diagnoses Abnormal genetic test during Maternal care for other (suspected) abnormality and damage, gastrointestinal anomalies, not applicable or unspecified Cystic fibrosis carrier Procedures [facility] with or without consult Brionna Sanabria MD [address] [address] Phone: tel: fax: Maternal- Medicine at [facility] [address] [place] [address] Phone: tel: fax: Referral ID Status Reason Start Date Expiration Date V isits Requested Visits Authorized [id number] Pending Review 10/13/2024 10/13/2025 1 1 * Diagnostic Imaging (Routine) - Pending Review Specialty Diagnoses / Procedures Referred By Thom t Referred To Contact Maternal and Medicine Diagnoses Abnormal genetic test during Maternal care for other (suspected) abnormality and damage, gastrointestinal anomalies, not applicable or unspecified Cystic fibrosis carrier Procedures [place] [place] [address] [place] [address] Phone: tel: fax: Maternal- Medicine at [address] [address] Phone: tel: fax: Referral ID Status Reason Start Date Expiration Date V isits Requested Visits Authorized [id number] Pending Review 10/13/2024 10/13/2025 1 1 * Diagnostic Imaging (Routine) - Pending Review Specialty Diagnoses / Procedures Referred By Thom t Referred To Contact Maternal and Medicine Diagnoses Abnormal genetic test during Maternal care for other (suspected) abnormality and damage, gastrointestinal anomalies, not applicable or unspecified Cystic fibrosis carrier Procedures US M with or without consult Brionna Sanabria MD [address] [place] [address] Phone: tel: fax: Maternal- Medicine at [address] [address] Phone: tel: fax: Referral ID Status Reason Start Date Expiration Date V isits Requested Visits Authorized [id number] Pending Review 10/13/2024 10/13/2025 1 1 Encounter Details Date Type Department Care Team (Late st Contact Info) Description 10/13/2024 Orders Only Maternal- Medicine at [address] [phone] Miriam Joseph RN Abnormal genetic test during (Primary Dx); Maternal care for other (suspected) abnormality and damage, gastrointestinal anomalies, not applicable or unspecified; Cystic fibrosis carrier Social History Tobacco Use Types Packs/Day Years Used Date Smoking Tobacco: Every Day Cigarettes 1 13.2 Started: 08/01/2011 Smokeless Tobacco: Never Alcohol Use Standard Drinks/Week Comments Not Currently 0 (1 standard drink = 0.6 oz pur e alcohol) [facility] Utilities Answer Date Recorded In [...] often do you attend chur ch or church services? Never 01/27/2024 Do you belong to any clubs o r organizations such as pentecostal groups, unions, fraternal or athletic groups, or [...] Answer Date Recorded Total Score 0 10/27/2023 [facility] [place] of Occupat ional Health - Occupational Stress [...] Recorded Do you need help finding a [facility] career center and/or a training program? [...] Info) Description 10/30/2024 11:00 AM EDT Appointment [facility] US Imaging [address] [place] [address] 10/30/2024 11:30 AM EDT Office Visit Maternal- Medicine at [facility] [address] [place] [address] Angela Perez MD [address], [address] [place], [place] [phone] 11/03/2024 1:00 PM EDT [facility] [address] [place] [phone] Tiffany Easton MD [address] [facility] [address] Scheduled Orders Name Type Priority Associated Diagnoses Orde r Schedule US MFM with or without consult Imaging Routine Abnormal genetic test during Maternal care for other (suspected) abnormality and damage, gastrointestinal anomalies, not applicable or unspecified Cystic fibrosis carrier Expected: 10/13/2025 (Approximate), Expires: 10/13/2025 documented as of this encounter Results * US MFM LMTD OB, 1 OR MORE FETUS (10/23/2024 1:31 PM EDT) Anatomical Region Laterality Modality OB-CITY CONSTABLE Ultrasound 10/23/2024 1:00 PM EDT Narrative 10/23/2024 2:58 PM EDT NAME: JEREMY BORDEN : 1995 SEX: F Accession Number: [id number] ORDERING PHYSICIAN: BRIONNA SANABRIA REFERRING PHYSICIAN: CLIFTON IVERSON Coding ----- --------- Procedures 14839: Limited OB / NAYE, 1 or More Fetuses Indication ----- --------- Abnormal finding on screening of mother-MOB + FOB CF carriers, Depression, Anxiety , Supervision of high risk , cystic fibrosis. History ----- --------- OB History 1. Para 0 [id number] Current ----- --------- Cell free DNA low [...] previous U/S 32 w + 6 d DOMIINQUE by previous Ultrasound: 12/12/2024 Assigned: based on [...] BORDEN : 1995 SEX: F Accession Number: [id number] ORDERING PHYSICIAN: BRIONNA SANABRIA REFERRING PHYSICIAN: CLIFTON IVERSON Coding ----- --------- Procedures 48181: Limited OB / NAYE, 1 or More Fetuses Indication ----- --------- Abnormal finding on screening of mother-MOB + FOB CF carriers,Depression, Anxiety , Supervision of high risk , cystic fibrosis. History ----- --------- OB History 1. Para 0 [id number] Current ----- --------- Cell free DNA low [...] Sanabria MD IMG US ORDERABLES Final Result * US MFM AMNIOTIC FLUID VOLUME ASSESSMENT (10/19/2024 3:42 PM EDT) Anatomical Region Laterality Modality OB-CITY CONSTABLE Ultrasound 10/19/2024 3:20 PM EDT Narrative 10/19/2024 5:13 PM EDT NAME: JEREMY BORDEN : 1995 SEX: F Accession Number: [id number] ORDERING PHYSICIAN: BRIONNA SANABRIA REFERRING PHYSICIAN: CLIFTON IVERSON Coding ----- --------- Procedures [id number]: Limited OB / NAYE, 1 or More Fetuses Indication ----- --------- Abnormal finding on screening of mother-MOB + FOB CF carriers, Depression, Anxiety , Supervision of high risk , cystic fibrosis. History ----- --------- OB History 1. Para 0 [id number] Current ----- --------- Cell free DNA low [...] BORDEN : 1995 SEX: F Accession Number: [id number] ORDERING PHYSICIAN: BRIONNA SANABRIA REFERRING PHYSICIAN: CLIFTON IVERSON Coding ----- --------- Procedures [id number]: Limited OB / NAYE, 1 or More Fetuses Indication ----- --------- Abnormal finding on screening of mother-MOB + FOB CF carriers,Depression, Anxiety , Supervision of high risk , cystic fibrosis. History ----- --------- OB History 1. Para 0 [id number] Current ----- --------- Cell free DNA low [...] thepatient as necessary. us Brionna Sanabria MD [facility] ORDERABLES Final Result documented in this encounter Visit Diagnoses Diagnosis Abnormal genetic test during - Primary Maternal care for other (suspected) abnormality and damage, gastrointestinal anomalies, not applicable or unspecified Cystic fibrosis carrier Abnormal genetic test during Maternal care for other (suspected) abnormality and damage, gastrointestinal anomalies, not applicable or unspecified Cystic fibrosis carrier Abnormal genetic test during Maternal care for other (suspected) abnormality and damage, gastrointestinal anomalies, not applicable or unspecified Cystic fibrosis carrier documented in this encounter Additional Health Concerns Assessment Noted Time PHQ-9 Depression Total Score: 0 10/27/19 10:25 AM EDT A Body Mass Index follow-up plan has been documented for the patient 08/10/2023 10:14 AM EDT documented as of this encounter Care Teams Warehouse Analyst Relationship Specialty Start Date End Date Armen Sánchez DO [address] [facility], [facility] [place] [place] [address] PCP - General Family Medicine 08/25/23 documented as of this encounter
--- OUTSIDE RECORDS SUMMARY | 2024-10-26 09:33 | XMS_ITS | Encounter Summary ---
Author Organization [email or web address] tem Address [id number] [address] [place] [address] Care Team Providers Care Barge Pilot Name Role Phone PrincessArmen Cedric [place] Primary Care Provider Encounter Details Date Type Department Care Team (Late st Contact Info) Description 08/25/2023 [facility] - [facility] Medicine [address] [place] [address] Bernadette Zhang CMA Social History Tobacco Use Types Packs/Day Years Used Date Smoking Tobacco: Every Day Cigarettes 1 13.2 Started: 08/01/2011 Smokeless Tobacco: Never Alcohol Use Standard Drinks/Week Comments Not Currently 0 (1 standard drink = 0.6 oz pur e alcohol) [facility] Utilities Answer Date Recorded In the past 12 months has [employer], gas, oil, or water company threatened to [...] often do you attend chur ch or adventism services? Never 08/25/2023 Do you belong to [...] Answer Date Recorded Total Score 6 08/25/2023 [facility] of Occupat ional Health - [...] Info) Description 10/30/2024 11:00 AM EDT Appointment [facility] - MF US Imaging [address] [place] [phone] 10/30/2024 11:30 AM EDT Office Visit Maternal- Medicine at [facility] [address] [facility] [place] [phone] Angela Perez MD [address] [facility] [address], [address] [place] [address] 11/03/2024 1:00 PM EDT [facility] [address] [place] [address] Tiffany Easton MD [address] [place] [address] documented as of this encounter Visit Diagnoses Not on filedocumented in this encounter Additional Health Concerns Assessment Noted Time PHQ-9 Depression Total Score: 6 08/25/19 9:30 AM EDT A Body Mass Index follow-up plan has been documented for the patient 08/10/2023 10:14 AM EDT documented as of this encounter Care Teams Barge Pilot Relationship Specialty Start Date End Date Armen Sánchez DO [address], [place] [address] PCP - General Family Medicine 08/25/23 documented as of this encounter
--- OUTSIDE RECORDS SUMMARY | 2024-10-26 09:33 | XMS_ITS | Encounter Summary ---
Author Organization [employer] tem Address [facility]-[id number] [address] [place] [address] Care Team Providers Care Game Author Name Role Phone SepidehArmen tristan Cedric [place] Primary Care Provider Encounter Details Date Type Department Care Team (Latest Contact Info) Description 10/18/2024 Travel Social History Tobacco Use Types Packs/Day [...] any clubs o r organizations such as baptism groups, unions, fraternal or athletic groups, or [...] Date Recorded Total Score 0 10/18/2024 [facility] of Occupat ional Health - Occupational [...] Info) Description 10/30/2024 11:00 AM EDT Appointment [facility] US Imaging [address] [place] [phone] 10/30/2024 11:30 AM EDT Office Visit Maternal- Medicine at [facility] [address] [place] [address] Angela Perez MD [address] [facility], [address] [place] [address] 11/03/2024 1:00 PM EDT [facility] [address] [place] [phone] Tiffany Easton MD [address] [place] [phone] documented as of this encounter Visit Diagnoses Not on filedocumented in this encounter Additional Health Concerns Assessment Noted Time PHQ-9 Depression Total Score: 0 10/19/19 25 4:00 AM EDT A Body Mass Index follow-up plan has been documented for the patient 08/10/2023 10:14 AM EDT documented as of this encounter Care Teams Game Author Relationship Specialty Start Date End Date Armen Sánchez DO [address] [facility], [place] [address] PCP - General Family Medicine 08/25/23 documented as of this encounter
--- OUTSIDE RECORDS SUMMARY | 2024-10-26 09:33 | XMS_ITS | Encounter Summary ---
Author Organization [facility] tem Address [id number] [address] [place] [address] Care Team Providers Care Hemmer Automatic Name Role Phone PrincessArmen Cedric [place] Primary Care Provider [phone] Encounter Details Date Type Department Care Team (Late st Contact Info) Description 09/25/2024 Orders Only Maternal- Medicine at [facility] [address] [place] [address] Ref Prov, [place] [address] Social History Tobacco Use Types Packs/Day Years Used Date Smoking Tobacco: Every Day Cigarettes 1 13.2 Started: 08/01/2011 Smokeless Tobacco: Never Alcohol Use Standard Drinks/Week Comments Not Currently 0 (1 standard drink = 0.6 oz pur e alcohol) [facility] Utilities Answer Date Recorded In the past 12 months has [employer], gas, oil, or water company threatened to [...] often do you attend chur ch or advent services? Never 01/27/2024 Do you belong to any clubs o r organizations such as scientology groups, unions, fraternal or athletic groups, or [...] Answer Date Recorded Total Score 0 10/27/2023 [facility] of Occupat ional Health - Occupational Stress [...] Recorded Do you need help finding a [facility] career [facility] and/or a training [...] Info) Description 10/30/2024 11:00 AM EDT Appointment [facility] US Imaging [address] [place] [address] 10/30/2024 11:30 AM EDT Office Visit Maternal- Medicine at [facility] [address] [place] [address] Angela Perez MD [address] [facility], 1[address] [place] [address] 11/03/2024 1:00 PM EDT [facility] [address] [place] [address] Tiffany Easton MD [address] [place] [address] documented as of this encounter Procedures Procedure Name Priority Date/Time Associated Diagnosis Comments US PREG LMTD 1 OR MORE FETUS Routine 09/25/2024 8:28 AM EDT documented in this encounter Results * Ultrasound limited 1 or more fetus (09/25/2024 8:28 AM EDT) Anatomical Region Laterality Modality OB-[employer] Ultrasound us Not In System Ref Prov IMG US ORDERABLES Final R esult documented in this encounter Visit Diagnoses Not on filedocumented in this encounter Additional Health Concerns Assessment Noted Time PHQ-9 Depression Total Score: 0 10/27/19 10:25 AM EDT A Body Mass Index follow-up plan has been documented for the patient 08/10/2023 10:14 AM EDT documented as of this encounter Care Teams Hemmer Automatic Relationship Specialty Start Date End Date Armen Sánchez DO [address] [facility], [facility] [place] [address] PCP - General Family Medicine 08/25/23 documented as of this encounter
--- OUTSIDE RECORDS SUMMARY | 2024-10-26 09:33 | XMS_ITS | Encounter Summary ---
Author Organization [facility] [employer] tem Address [id number] [address] [place] [address] Care Team Providers Care Planimeter Operator Name Role Phone MasoodArmen silverman Primary Care Provider Encounter Details Date Type Department Care Team (Late st Contact Info) Description 05/01/2024 Orders Only [facility] Internal Medicine - Family Medicine [address] [place] [address] Ref Prov, [place] [address] Social History Tobacco Use Types Packs/Day Years Used Date Smoking Tobacco: Every Day Cigarettes 1 13.2 Started: 08/01/2011 Smokeless Tobacco: Never Alcohol Use Standard Drinks/Week Comments Not Currently 0 (1 standard drink = 0.6 oz pur e alcohol) [facility] Utilities Answer Date Recorded In the past 12 months has [employer], gas, oil, or water company threatened to [...] attend chur ch or adventism services? Never 01/27/2024 Do you belong to any clubs o r organizations such as oriental orthodox groups, unions, fraternal or athletic groups, or [...] Answer Date Recorded Total Score 0 10/27/2023 [facility] of Occupat ional Health - Occupational Stress [...] you need help finding a [facility] career center and/or a [...] [facility] US Imaging [address] [facility] [place] [address] 10/30/2024 11:30 AM EDT Office Visit Maternal- Medicine at [facility] [address] [facility] [place] [address] Angela Perez MD [address] [facility], [address] [place] [address] 11/03/2024 1:00 PM EDT [facility] [address] [place] [phone] Tiffany Easton MD [address] [place] [address] documented as of this encounter Procedures Procedure [...] documented as of this encounter Care Teams Planimeter Operator Relationship Specialty Start Date End Date Armen Sánchez DO [address] [facility], [facility] [place] [address] PCP - General Family Medicine 08/25/23 documented as of this encounter
--- OUTSIDE RECORDS SUMMARY | 2024-10-26 09:33 | XMS_ITS | Encounter Summary ---
Author Organization [facility] Address [address] [place] [address] Care Team Providers Care Dialysis Clinical Manager Name Role Phone Armen Sánchez MD Primary Care Provider Encounter Details Date Type Department Care Team (Latest Contact Info) Description 10/16/2024 Travel Social History Tobacco Use Types Packs/Day [...] on filedocumented in this encounter Care Teams Dialysis Clinical Manager Relationship Specialty Start Date End Date Armen Sánchez MD PCP - General Family Medicine 05/05/24 documented as of this encounter
--- OUTSIDE RECORDS SUMMARY | 2024-10-26 09:33 | XMS_ITS | Encounter Summary ---
Author Organization [facility] Address [address] [facility] [place] [address] Care Team Providers Care Pediatric Dental Assistant Name Role Phone Emi Bronson [facility] Unavailable + [phone] Armen Sánchez MD Primary Care Provider + [phone] Encounter Details Date Type Department Care Team (Late st Contact Info) Description 08/10/2023 Abstract [facility] [address] [place] [address] Curtis Paez, [address] [place], [place] [id number] Social History Tobacco Use Types Packs/Day Years [...] on filedocumented in this encounter Care Teams Pediatric Dental Assistant Relationship Specialty Start Date End Date Armen Sánchez MD [address] [facility] [address] [place] [address] PCP - General Family Medicine 1/31/25 Emi Bronson, [facility] [address] [facility] [address] [place] [address] Behavioral Health 04/12/24 09/26/24 documented as of this encounter
--- OUTSIDE RECORDS SUMMARY | 2024-10-26 09:33 | XMS_ITS | Encounter Summary ---
Author [facility] Address [id number] [address] [place] [address] Care Team Providers Care Auto Garage Mechanic Name Role Phone PrincessArmen Cedric [place] Primary Care Provider Encounter Details Date Type Department Care Team (Late st Contact Info) Description 08/26/2023 Orders Only [facility] Internal Medicine - Family Medicine [address] [place] [address] Scotty Mahoney DO [address] [place] [address] Rectal bleeding (Primary Dx) Social History Tobacco Use Types Packs/Day Years Used Date Smoking Tobacco: Every Day Cigarettes 1 13.2 Started: 08/01/2011 Smokeless Tobacco: Never Alcohol Use Standard Drinks/Week Comments Not Currently 0 (1 standard drink = 0.6 oz pur e alcohol) [facility] Utilities Answer Date Recorded In the past 12 months has [employer], gas, oil, or water [employer] threatened to shut off services in your [...] week 08/25/2023 How often do you attend [facility] or pentecostalism services? Never 08/25/2023 Do you [...] Answer Date Recorded Total Score 6 08/25/2023 [employer] of Occupat ional Health - Occupational Stress [...] Info) Description 10/30/2024 11:[address] [facility] US Imaging [address] [place] [phone] 10/30/2024 11:30 AM EDT Office Visit Maternal- Medicine at [facility] [address] [place] [address] Angela Perez MD [address] [facility], [address] [place] [address] 11/03/2024 1:00 PM EDT [facility] [address] [place] [phone] Tiffany Easton MD [address] [place] [address] documented as of this encounter Visit Diagnoses Diagnosis Rectal bleeding- Primary Hemorrhage of rectum and anus documented in this encounter Additional Health Concerns Assessment Noted Time PHQ-9 Depression Total Score: 6 08/25/19 24 9:30 AM EDT A Body Mass Index follow-up plan has been documented for the patient 08/10/2023 10:14 AM EDT documented as of this encounter Care Teams Auto Garage Mechanic Relationship Specialty Start Date End Date Armen Sánchez DO [address], [facility] [place] [address] PCP - General Family Medicine 08/25/23 documented as of this encounter
--- OUTSIDE RECORDS SUMMARY | 2024-10-26 09:33 | XMS_ITS | Encounter Summary ---
Author Organization [facility] tem Address [id number] [address] [place] [address] Care Team Providers Care Screw Machine Set Up Operator Name Role Phone Princess Armen Steele DO Primary Care Provider Encounter Details Date Type Department Care Team (Late st Contact Info) Description 06/16/2024 Orders Only Maternal- Medicine at [facility] [address] [place] [phone] Curtis Paez, DO [address] [place] [address] Social History Tobacco Use Types Packs/Day Years Used Date Smoking Tobacco: Every Day Cigarettes 1 13.2 Started: 08/01/2011 Smokeless Tobacco: Never Alcohol Use Standard Drinks/Week Comments Not Currently 0 (1 standard drink = 0.6 oz pur e alcohol) [facility] Utilities Answer Date Recorded In the past 12 months has [employer], gas, oil, or water [employer] threatened to shut off services in your home? No 08/25/2023 Social Connection and Isolation Panel [NHANES] A nswer Date Recorded In a typical week, how many times do you talk on the phone with family, friends, or neighbors? Three times a week 01/27/2024 How often do you get togethe r with friends or relatives? Once a week 01/27/2024 How often do you attend [facility] or hinduism services? Never 01/27/2024 Do you belong to [...] Date Recorded Total Score 0 10/27/2023 [facility] [...] Recorded Do you need help finding a [facility] and/or a training program? No [...] Info) Description 10/30/2024 11:00 AM EDT Appointment [facility] - [facility] [address] [place] [phone] 10/30/2024 11:30 AM EDT Office Visit Maternal- Medicine at [facility] [address] [place] [phone] Angela Perez MD [address] [facility], [address] [place] [address] 11/03/2024 1:00 PM EDT [facility] [address] [place] [phone] Tiffany Easton MD [address] [place] [phone] documented as of this encounter Procedures Procedure Name Priority Date/Time Associated Diagnosis Comments UNLISTED LAB TEST Routine 06/08/2024 1:25 PM EST UNLISTED LAB TEST Routine 05/23/2024 1:26 PM EST documented in this encounter Results * Unlisted Lab Test (06/08/2024 1:25 PM EST) us Curtis R Jeannine DO LAB BLOOD ORDERABLES Final Resu lt Performing Organization Address City/[facility] Co de Phone Number MANUALLY TRANSCRIBED RESULTS * Unlisted Lab Test (05/23/2024 1:26 PM EST) us Curtis R Jeannine DO LAB BLOOD ORDERABLES Final Resu lt Performing Organization Address [facility] Co de Phone Number MANUALLY TRANSCRIBED RESULTS documented in this encounter Visit Diagnoses Not on filedocumented in this encounter Additional Health Concerns Assessment Noted Time PHQ-9 Depression Total Score: 0 10/27/19 10:25 AM EDT A Body Mass Index follow-up plan has been documented for the patient 08/10/2023 10:14 AM EDT documented as of this encounter Care Teams Screw Machine Set Up Operator Relationship Specialty Start Date End Date Armen Sánchez DO [address], [place] [address] PCP - General Family Medicine 08/25/23 documented as of this encounter
--- OUTSIDE RECORDS SUMMARY | 2024-10-26 09:34 | XMS_ITS | Encounter Summary ---
Author Organization [facility] Address [address] [facility] [place] [address] Care Team Providers Care Us Administrative Law Judge Name Role Phone Emi Bronson [facility] Unavailable + [phone] Armen Sánchez MD Primary Care Provider + [phone] Encounter Details Date Type Department Care Team (Late st Contact Info) Description 05/09/2024 Abstract [facility] [address] [place] [address] Curtis Paez [address] [place], [place] [id number] Social History Tobacco Use Types Packs/Day Years [...] on filedocumented in this encounter Care Teams Us Administrative Law Judge Relationship Specialty Start Date End Date Armen Sánchez MD [address] [facility] [address] [place] [address] PCP - General Family Medicine 05/05/24 Emi Bronson, [facility] [address] [place] [address] Behavioral Health 04/12/24 09/26/24 documented as of this encounter
--- OUTSIDE RECORDS SUMMARY | 2024-10-26 09:34 | XMS_ITS | Clinical Summary ---
Author Organization [facility] Address [address] [place] [address] Care Team Providers Care Parimutuel Ticket Cashier Name Role Phone Armen Sánchez MD Primary Care Provider Allergies Active Allergy Reactions [...] Active Problems Problem Noted Date Diagnosed Date H/O LEEP 10/17/2024 Third trimester ([facility]) 10/03/2024 29 weeks gestation of ([facility]) 2024 HSV infection 10/03/2024 Placental abnormality in third trimester ([facility]) 09/21/2024 History of loop electrosurgi [...] Encounters Date Type Department Care Team Description 10/19/2024 Clinisync Result Encounter [facility] External Department Unsolicited Magan Paez, DO 10/17/2024 2:20 PM EDT Routine [facility] [address] [place] [address] Jocy Ruby PA Third trimester ([facility]); 32 weeks gestation of ([facility]); H/O LEEP; Cystic fibrosis carrier, antepartum ([facility]); HSV infection 10/17/2024 Bamboo flowsheet [facility] [address] [place] [address] Jocy Ruby PA 10/16/2024 Travel 10/12/2024 Clinisync Result Encounter NOMS External Department Unsolicited Magan Paez, DO 10/09/2024 Abstract [facility] [address] [place] [address] Reanna Fernandez MA 10/04/2024 Clinisync Result Encounter [facility]OMS External Department Unsolicited Magan Paez, DO 10/04/2024 Telephone [facility] [address] [place] [address] Magan Paez, 10/03/2024 8:40 AM EDT Routine [facility] [address] [place] [address] Magan Paez, DO Third trimester ([facility]); Cystic fibrosis carrier, antepartum ([facility]); Moderate episode of recurrent major depressive disorder (HCC); History of loop electrosurgical excision procedure (LEEP) of cervix affecting , antepartum ([facility]); HSV infection; 30 weeks gestation of ([facility]); Maternal care for other (suspected) abnormality and damage, gastrointestinal anomalies, not applicable or unspecified ([facility]) 10/03/20[address] [facility] [address] [place] [address] Laura Godwin, UMBERTO 10/03/2024 Abstract [facility] [address] [place] [address] Magan Paez, DO 09/25/2024 Clinisync Result Encounter [facility]OMS External Department Unsolicited Magan Paez, DO 09/21/2024 Abstract [facility] [address] [place] [address] Magan Paez, DO 09/21/2024 Abstract [facility] [address] [place] [address] Magan Paez, DO 09/21/2024 Clinisync Result Encounter [facility] External Department Unsolicited Magan Paez, DO 09/21/2024 Clinisync Result Encounter [facility] External Department Unsolicited Magan Paez, DO 09/21/2024 Orders Only [facility] [address] [place] [address] Magan Paez, Placental abnormality in third trimester ([facility]); Cystic fibrosis carrier, antepartum ([facility]); History of loop electrosurgical excision procedure (LEEP) of cervix affecting , antepartum ([facility]) 09/21/[address] [address] [place] [address] Antoinette Jackman, UMBERTO 09/19/[address] [facility] [address] [place] [address] Laura Godwin, UMBERTO 09/18/2024 3:40 PM EDT Routine [facility] [place] [address] [place] [address] Magan Paez DO Anxiety, generalized (Primary Dx); Second trimester ([facility]); 27 weeks gestation of ([facility]); Cystic fibrosis carrier, antepartum ([facility]) 09/18/2024 Bamboo flowsheet [facility] [address] [place] [address] Magan Paez DO 09/18/2024 Travel 08/30/2024 9:50 AM EDT Routine [facility] [address] [place] [address] Jocy Ruby PA Second trimester ([facility]); 25 weeks gestation of ([facility]) 08/30/2024 Clinisync Result Encounter NOMS External Department Unsolicited Magan Paez DO 08/30/2024 Bamboo flowsheet [facility] [address] [place] [address] Jocy Ruby PA 08/14/2024 10:30 AM EDT Procedure Visit [facility] [address] [place] [address] Magan Paez DO Cystic fibrosis carrier, antepartum ([facility]); LGSIL on Pap smear of cervix 08/14/2024 Travel 08/01/2024 1:20 PM EDT Routine [facility] [address] [place] [address] Magan Paez DO Chlamydia trachomatis infection; 21 weeks gestation of ([facility]); Second trimester ([facility]); Diabetes mellitus screening 08/01/2024 Bamboo flowsheet [facility] [address] [place] [address] Magan Paez DO 08/01/2024 Travel from Last 3 Months Family History Medical [...] (210 lb) 10/17/2024 2:37 PM EDT Height 162.6 cm (5' 4 ) 10/03/2024 9:04 AM EDT Body Mass Index 36.05 10/03/2024 9:04 AM EDT Plan of Treatment Not on file Procedures Procedure Name Priority Date/Time Associated Diagnosis Comments US OB BPP W NON-STRESS 10/19/2024 11:27 AM EDT US OB BPP W NON-STRESS 10/12/2024 8:55 PM EDT US OB PLACENTA 10/04/2024 9:50 AM EDT POCT URINALYSIS DIPSTICK Routine 10/03/2024 9:04 AM EDT Third trimester ([facility]) US OB BPP W NON-STRESS 09/25/2024 8:08 AM EDT US OB PLACENTA 09/21/2024 2:53 PM EDT US OB CERVICAL LENGTH 09/21/2024 2:40 PM EDT GLUCOSE 1 HOUR Routine 08/30/2024 11:28 AM EDT ALL CBC WITH AUTO DIFF Routine 08/30/2024 11:28 AM EDT POCT URINALYSIS DIPSTICK Routine 08/30/2024 11:24 AM EDT Second trimester ([facility]) COLPOSCOPY Routine 08/14/2024 2:19 PM EDT LGSIL on Pap smear of cervix RECURRENT VAGINITIS (HTRX) Routine 08/01/2024 2:52 PM EDT US OB 14+ WEEKS ANATOMY SCAN 07/28/2024 1:13 PM EDT from Last 3 Months Results * US OB BPP W NON-STRESS (10/19/2024 11:27 AM EDT) Only the most recent of3 resultswithin the time period is included. Anatomical Region Laterality Modality Other 10/19/2024 11:2 7 AM EDT Narrative 10/19/2024 11:30 [place] [address] Ultrasound Report Signed Patient: MICHI SERRANO MR#: [id number] : 1995 Acct:[id number] Age/Sex: 29 / F ADM Date: 10/19/24 Loc: [place] [address]: Magan Paez D.O. Ordering Physician: Magan Paez D.O. Date of Service: 10/19/24 Procedure(s): US OB BPP w non-stress Accession Number(s): [id number] cc: ARMEN SÁNCHEZ ; Magan Paez D.O. [place] [address] Patient Name: MICHI SERRANO MRN: [id number]:[id number] date: 1995 Sex: F Assigned Patient Location: US Current Patient Location: US Accession/Order Number: [id number] Exam Date: 10/19/2024 11:25 Report Date: 10/19/2024 11:27 At the request of: MAGAN PAEZ DO Procedure: US OB BPP w non-stress BIOPHYSICAL PROFILE: CLINICAL INFORMATION: Cystic fibrosis carrier COMPARISON: 10/12/2024 There is a single live intrauterine gestation in cephalic presentation. The reported gestational age is 32 weeks 2 days. The heart rate measures 144 beats per minute. FINDINGS: TONE: 1 or [...] greater than 2 cm [Y] 2/2 NAYE: 12.1 cm. This is in low-normal range Total score: 8/8 US/US OB BPP w non-stress IMPRESSION: NORMAL BIOPHYSICAL PROFILE Impression dictated by: Laura Rahman M.D. 10/19/2024 11:27 AM Dictation Location: [place] [address] Electronically authenticated by: [id number] Y Date: 10/19/2024 11:27 Dictated By: Laura Rahman M.D. Signed By: 10/19/24 1130 DD/ 1127 TD/TT: Health And Wellness Director: Procedure Note Radiology, Radiologist, MD - 10/19/2024 [place] [address] Ultrasound Report Signed Patient: MICHI SERRANO KMR#: [id number] : 1995Acct:[id number] Age/Sex: 29 / FADM Date: 10/19/24 Loc: [facility] 250-[address]: Magan Paez D.O. Ordering Physician: Magan Paez D.O. Date of Service: 10/19/24 Procedure(s): US OB BPP w non-stress Accession Number(s): [id number] cc: ARMEN SÁNCHEZ ; Magan Paez D.O. The [place] [id number] Patient Name: MICHI SERRANO MRN: [facility]:[id number] date: 1995 Sex: F Assigned Patient Location: Current Patient Location: US Accession/Order Number: [id number] Exam Date: 10/19/2024 11:25 Report Date: 10/19/2024 11:27 At the request of: MAGAN PAEZ DO Procedure: US OB BPP w non-stress BIOPHYSICAL PROFILE: CLINICAL INFORMATION: Cystic fibrosis carrier COMPARISON: 10/12/2024 There is a single live intrauterine gestation in cephalic presentation.The reported gestational age is 32 weeks 2 days. The heart ratemeasures 144 beats per minute. FINDINGS: TONE: 1 or [...] greater than 2 cm [Y] 2/2 NAYE: 12.1 cm. This is in low-normal range Total score: 8/8 US/US OB BPP w non-stress IMPRESSION: NORMAL BIOPHYSICAL PROFILE Impression dictated by: Laura Rahman M.D. 10/19/2024 11:27 AM Dictation Location: [place] [address] Electronically authenticated by: [id number] Y Date: 1:27 Dictated By: Laura Rahman M.D. Signed By:10/19/24 1130 DD/ 1127 TD/TT: Health And Wellness Director: us Magan Paez DO [facility] IMAGING Final Result * US OB PLACENTA (10/04/2024 9:50 AM EDT) Only the most recent of2 resultswithin the time period is included. Anatomical Region Laterality Modality Other 10/04/2024 9:50 AM EDT Narrative 10/04/2024 9:52 [place] [address] Ultrasound Report Signed Patient: MICHI SERRANO MR#: [id number] : 1995 Acct:[id number] Age/Sex: 29 / F ADM Date: 09/24/24 Loc: [place] Attending Dr: Magan Paez D.O. Ordering Physician: Magan Paez D.O. Date of Service: 09/24/24 Procedure(s): US OB placenta Accession Number(s): [id number] cc: ARMEN SÁNCHEZ ; Magan Paez D.O. [place] [address] Patient Name: MICHI SERRANO MRN: [facility]:[id number] date: 1995 Sex: F Assigned Patient Location: [facility] Current Patient Location: US Accession/Order Number: [id number] Exam Date: 10/04/2024 09:16 Report Date: 10/04/2024 [...] Rahman M.D. 10/04/2024 9:50 AM Dictation Location: [place] [address] Electronically authenticated by: [id number] Y Date: 10/04/2024 09:50 Dictated By: Laura Rahman M.D. Signed By: 10/04/24 0952 DD/ TD/TT: Health And Wellness Director: Procedure Note Radiology, Radiologist, MD - 10/04/[address] [address] Ultrasound Report Signed Patient: MICHI SERRANO KMR#: [id number] : 1995Acct:[id number] Age/Sex: 29 / FADM Date: 09/24/24 Loc: [facility] Attending Dr: Magan Paez D.O. Ordering Physician: Magan Paez D.O. Date of Service: 09/24/24 Procedure(s): US OB placenta Accession Number(s): [id number] cc: ARMEN SÁNCHEZ ; Magan Paez D.O. [facility] [place] [id number] Patient Name: MICHI SERRANO MRN: [facility]:[id number] date: 1995 Sex: F Assigned Patient Location: [facility] Current Patient Location: US Accession/Order Number: [id number] Exam Date: 10/04/2024 09:16 Report Date: 10/04/2024 [...] Rahman M.D. 10/04/2024 9:50 AM Dictation Location: [place] [address] Electronically authenticated by: [id number] Y Date: 9:50 Dictated By: Laura Rahman M.D. Signed By:10/04/24 0952 DD/ 0950 TD/TT: Health And Wellness Director: Magan Paez DO [facility] IMAGING Final Result [...] OR DERABLES Final Result * US OB CERVICAL LENGTH (09/21/2024 2:40 PM EDT) Anatomical Region Laterality Modality Other 09/21/2024 2:40 PM EDT Narrative 09/21/2024 2:43 PM EDT [place] [id number] Ultrasound Report Signed Patient: MICHI SERRANO MR#: [id number] : 1995 Acct:[id number] Age/Sex: 29 / F ADM Date: 09/21/24 Loc: US Attending Dr: Magan Paez D.O. Ordering Physician: Magan Paez D.O. Date of Service: 09/21/24 Procedure(s): US OB cervical length Accession Number(s): [id number] cc: ARMEN SÁNCHEZ Magan Paez D.O. [facility] [place] [id number] Patient Name: MICHI SERRANO MRN: [facility]:[id number] date: 1995 Sex: F Assigned Patient Location: US Current Patient Location: US Accession/Order Number: [id number] Exam Date: 09/21/2024 14:39 Report Date: 09/21/2024 [...] Jr., D.O. 09/21/2024 2:40 PM Dictation Location: [place] [address] Electronically authenticated by: [id number] Y Date: 09/21/2024 14:40 Dictated By: Hugo Atkins M.D. Signed By: 09/21/24 1443 DD/ 1440 TD/TT: Health And Wellness Director: Procedure Note Radiology, Radiologist, MD - 09/21/2024 [place] [address] Ultrasound Report Signed Patient: MICHI SERRANO KMR#: [id number] : 1995Acct:[id number] Age/Sex: 29 / FADM Date: 09/21/24 Loc: US Attending Dr: Magan Paez D.O. Ordering Physician: Magan Paez D.O. Date of Service: 09/21/24 Procedure(s): US OB cervical length Accession Number(s): [id number] cc: ARMEN SÁNCHEZ ; Magan Paez D.O. [facility] [place] [id number] Patient Name: MICHI SERRANO MRN: [id number]:[id number] date: 1995 Sex: F Assigned Patient Location: US Current Patient Location: US Accession/Order Number: [id number] Exam Date: 09/21/2024 14:39 Report Date: 09/21/2024 [...] funneling. Impression dictated by: Hugo Atkins Jr., Loco 09/21/2024 2:40 PM Dictation Location: [place] [address] Electronically authenticated by: [id number] Y Date: 4:40 Dictated By: Hugo Atkins M.D. Signed By:09/21/24 1443 DD/ 1440 TD/TT: Health And Wellness Director: us Magan Jeannine DO [facility] IMAG[facility] Final Result * GLUCOSE 1 HOUR (08/30/2024 11:28 AM EDT) GLUCOSE 1 HOUR 66 <130 mg/dL [facility] 08/30/2024 11:2 8 AM EDT 08/30/2024 11:29 AM EDT Narrative CLINISYNC - 08/30/2024 12:05 PM EDT Magan Jeannine DO LAB BLOOD ORDERABLES Final Resul t [facility] * (ABNORMAL) ALL CBC WITH [...] us Magan Paez DO CLINISYNC Final Result [facility] * Colposcopy (08/14/2024 2:19 PM EDT) Magan [...] RECURRENT VAGINITIS (HTRX) (08/01/2024 2:52 PM EDT) Pathologist [facility] ATOPOBIUM VAGINAE 0.000 19.961 - 24.689 ppm 08/02/2024 7:05 AM EDT [facility] ATOPOBIUM VAGINAE Not Detected 19.961 - 24.689 ppm 08/02/2024 7:05 AM EDT [facility] BVAB 2,3 (BACTERIAL VAGINOSIS ASSOCIATED BACTERIA 2, 3); MOBILUNCUS SPP 0.000 19.961 - 24.689 ppm 08/02/2024 7:05 AM EDT [facility] BVAB 2,3 (BACTERIAL VAGINOSIS ASSOCIATED BACTERIA 2, 3); MOBILUNCUS SPP Not Detected 19.961 - 24.689 ppm 08/02/2024 7:05 AM EDT [facility] ILIANA ALBICANS, PARAPSILOSIS, TROPICALIS 0.000 19.961 - 30.770 ppm 08/02/2024 7:05 AM EDT [facility] ILIANA ALBICANS, PARAPSILOSIS, TROPICALIS Not Detected 19.961 - 30.770 ppm 08/02/2024 7:05 AM EDT [facility] ILIANA GLABRATA 0.000 23.000 - 32.138 ppm 08/02/2024 7:05 AM EDT [facility] [place] ILIANA GLABRATA Not Detected 23.000 - 32.138 ppm 08/02/2024 7:05 AM EDT [facility] [place] ILIANA KRUSEI 0.000 23.000 - 32.271 ppm 08/02/2024 7:05 AM EDT [facility] [place] ILIANA KRUSEI Not Detected 23.000 - 32.271 ppm 08/02/2024 7:05 AM EDT [facility] [place] CHLAMYDIA TRACHOMATIS 0.000 23.000 - 31.467 ppm 08/02/2024 7:05 AM EDT [facility] [place] CHLAMYDIA TRACHOMATIS Not Detected 23.000 - 31.467 ppm 08/02/2024 7:05 AM EDT [facility] [place] GARDNERELLA VAGINALIS 0.000 19.961 - 24.689 ppm 08/02/2024 7:05 AM EDT [facility] GARDNERELLA VAGINALIS Not Detected 19.961 - 24.689 ppm 08/02/2024 7:05 AM EDT [facility] [place] MEGASPHAERA (TYPES 1, 2) 0.000 19.961 - 24.689 ppm 08/02/2024 7:05 AM EDT [facility] MEGASPHAERA (TYPES 1, 2) Not Detected 19.961 - 24.689 ppm 08/02/2024 7:05 AM EDT [facility] NEISSERIA GONORRHOEAE 0.000 23.000 - 32.117 ppm 08/02/2024 7:05 AM EDT [facility] [place] NEISSERIA GONORRHOEAE Not Detected 23.000 - 32.117 ppm 08/02/2024 7:05 AM EDT [facility] [place] TRICHOMONAS VAGINALIS 0.000 23.000 - 32.119 ppm 08/02/2024 7:05 AM EDT [facility] [place] TRICHOMONAS VAGINALIS Not Detected 23.000 - 32.119 ppm 08/02/2024 7:05 AM EDT [facility] [place] MYCOPLASMA GENITALIUM 0.000 19.961 - 24.689 ppm 08/02/2024 7:05 AM EDT [facility] MYCOPLASMA GENITALIUM Not Detected 19.961 - 24.689 ppm 08/02/2024 7:05 AM EDT [facility] 08/01/2024 2:52 PM EDT 08/02/2024 2:14 AM EDT us Magan Paez DO LAB BLOOD ORDERABLES Final Resul t [employer] [facility] [address] [place] [address] * US OB 14+ weeks anatomy scan (07/28/2024 1:13 PM EDT) Anatomical Region Laterality Modality Body Ultrasound 07/28/2024 1:13 PM EDT Narrative 07/28/2024 1:13 PM EDT THIS EXAM WAS PERFORMED AT [facility] NAME: JEREMY BORDEN : 1995 SEX: F Accession Number: [id number] ORDERING PHYSICIAN: CHRISSIE SNOW REFERRING PHYSICIAN: MAGAN PAEZ Coding ----- --------- Procedures 96811: Ultrasound, uterus, real time with image documentation, and maternal evaluation plus detailed anatomic examination, transabdominal approach;single or first gestation 37327: Transvaginal Ultrasound (OB) 37401: Amniocentesis; diagnostic Indication ----- --------- Screening for Anatomic Survey, Screening for cervical length, Abnormal finding on screening of mother-MOB + FOB CF carriers, Depression, Anxiety History ----- --------- OB History 1. Para 0 [id number] Current ----- --------- Cell free DNA low [...] EFW (oz) 14 oz EFW by: Hadlock ([id number]) Extended Tibia 28.6 mm 20w 3d 55% Dank Zigzag Appliquer 6.6 mm CM 5.3 mm 57% Nicolaides [...] view. RVOT view. LVOT view. 3-vessel view. 5-gwlhso-zzwndlx view. Situs. Bicaval view. Ductal arch view. [...] ----- --------- Performing Physicain: Suresh Valencia MD, .Histotechnologist Supervisor: Damaris Johnson RDMS Invasive Procedures ----- --------- [...] rates noted. Recommendations ----- --------- Please see [facility]FM documentation from today. The patient is scheduled [...] - 07/28/2024 THIS EXAM WAS PERFORMED AT [facility] NAME: JEREMY BORDEN : 1995 SEX: F Accession Number: [id number] ORDERING PHYSICIAN: CHRISSIE SNOW REFERRING PHYSICIAN: MAGAN PAEZ Coding ----- --------- Procedures 82564: Ultrasound, uterus, real time with imagedocumentation, and maternal evaluation plus detailed anatomic examination, transabdominalapproach;single or first gestation 50422: Transvaginal Ultrasound (OB) 78986: Amniocentesis; diagnostic Indication ----- --------- Screening for Anatomic Survey, Screening for cervical length, Abnormalfinding on screening of mother-MOB + FOB CF carriers, Depression, Anxiety History ----- --------- OB History 1. Para 0 [id number] Current ----- --------- Cell free DNA low [...] EFW (oz) 14 oz EFW by: Hadlock (ZEE-HE-SR-FL) Extended Tibia 28.6 mm 20w 3d 55% Dank Zigzag Appliquer 6.6 mm CM 5.3 mm 57% Nicolaides [...] 4-chamber view. RVOT view. LVOT view. 3-vessel view.1-hxuwzf-ctexwqh view. Situs. Bicaval view. Ductal arch view. [...] ----- --------- Performing Physicain: Suresh Valencia MD, .Histotechnologist Supervisor: Damaris Johnson RDMS Invasive Procedures ----- --------- [...] rates noted. Recommendations ----- --------- Please see [facility] documentation from today. The patient is scheduled in four week(s) to complete anatomic survey. Subsequent follow up or other follow up as clinically determined byprimary OB provider unless otherwise specified by [facility]. Results forwarded to ordering provider so they can follow up with thepatient as necessary. The copy-to physician of this order is MAGAN Aguirre The ordering physician of this order is CHRISSIE Velázquez us Maganidalia Paez DO IMG OB US PROCEDURES Final Resul t from Last 3 Months Insurance * Guarantor: Michi Serrano Account Type Relation to Patient Date of Phone Billing Address Personal/Family Self 1995 [address] [place] [address] [facility] Care Teams Parimutuel Ticket Cashier Relationship Specialty Start Date End Date Armen Sánchez MD PCP - General Family Medicine 05/05/24
--- OUTSIDE RECORDS SUMMARY | 2024-10-26 09:34 | XMS_ITS | Encounter Summary ---
Author Organization [facility] [employer] s tem Address [id number] [address] [place] [address] Care Team Providers Care Motel Maid Name Role Phone MasoodArmen silverman Primary Care Provider Encounter Details Date Type Department Care Team (Late st Contact Info) Description 07/19/2024 Orders Only [facility] Internal Medicine - Family Medicine [address] [place] [address] Ref Prov, [place] [address] Social History Tobacco Use Types Packs/Day Years Used Date Smoking Tobacco: Every Day Cigarettes 1 13.2 Started: 08/01/2011 Smokeless Tobacco: Never Alcohol Use Standard Drinks/Week Comments Not Currently 0 (1 standard drink = 0.6 oz pur e alcohol) [facility] Utilities Answer Date Recorded In the past 12 months has [employer], gas, oil, or water company threatened to [...] often do you attend chur ch or rastafarian services? Never 01/27/2024 Do you belong to [...] Answer Date Recorded Total Score 0 10/27/2023 [facility] - Occupational Stress [...] Recorded Do you need help finding a [facility] and/or a training [...] Info) Description 10/30/2024 11:00 AM EDT Appointment [facility] [address] [place] [address] 10/30/2024 11:30 AM EDT Office Visit Maternal- Medicine at [facility] [address] [place] [address] Angela Perez MD [address] [facility], [address] [place] [address] 11/03/2024 1:00 PM EDT [facility] [address] [place] [id number] Tiffany Easton MD [address] [place] [phone] documented as of this encounter Procedures Procedure [...] documented as of this encounter Care Teams Motel Maid Relationship Specialty Start Date End Date Armen Sánchez DO [address] [facility] [place] [address] PCP - General Family Medicine 08/25/23 documented as of this encounter
--- OUTSIDE RECORDS SUMMARY | 2024-10-26 09:34 | XMS_ITS | Encounter Summary ---
Author Organization [facility] Address [address] [place] [address] Care Team Providers Care Tattoo Artist Name Role Phone Emi Bronson [facility] Unavailable + [phone] Armen Sánchez MD Primary Care Provider + [phone] Encounter Details Date Type Department Care Team (Late st Contact Info) Description 12/27/2023 Abstract [facility] [address] [place] [address] [facility] [address] [place] [address] Social History Tobacco Use Types Packs/Day Years [...] on filedocumented in this encounter Care Teams Tattoo Artist Relationship Specialty Start Date End Date Armen Sánchez MD [address] [facility] [address] [place] [address] PCP - General Family Medicine 05/05/24 Emi Bronson, [facility] [address] [place] [address] Behavioral Health 04/12/24 09/26/24 documented as of this encounter
--- OUTSIDE RECORDS SUMMARY | 2024-10-26 09:34 | XMS_ITS | Encounter Summary ---
Author Organization [facility] Address [address] [place] [address] Care Team Providers Care Field Checker Name Role Phone Armen Sánchez MD Primary Care Provider Encounter Details Date Type Department Care Team (Late st Contact Info) Description 10/19/2024 Clinisync Result Encounter [facility] External Department Unsolicited Magan Paez, DO [address] [facility] [address] [place], [place] [id number] Social History Tobacco Use Types Packs/Day Years [...] BPP W NON-STRESS 10/19/2024 11:27 AM EDT documented in this encounter Results * US OB BPP W NON-STRESS (10/19/2024 11:27 AM EDT) Anatomical Region Laterality Modality Other 10/19/2024 11:2 7 AM EDT Narrative 10/19/2024 11:30 [place] [address] Ultrasound Report Signed Patient: SAPNA SERRANO MR#: [id number] : 1995 Acct:[id number] Age/Sex: 29 / F ADM Date: 10/19/24 Loc: [facility] 250-[address]: Magan Paez D.O. Ordering Physician: Magan Paez D.O. Date of Service: 10/19/24 Procedure(s): US OB BPP w non-stress Accession Number(s): [id number] cc: ARMEN SÁNCHEZ ; Magan Paez D.O. [address] [address] Patient Name: SAPNA SERRANO MRN: [facility]:[id number] date: 1995 Sex: F Assigned Patient Location: Current Patient Location: US Accession/Order Number: [id number] Exam Date: 10/19/2024 11:25 Report Date: 10/19/2024 [...] Rahman M.D. 10/19/2024 11:27 AM Dictation Location: [place] [address] Electronically authenticated by: [id number] Y Date: 10/19/2024 11:27 Dictated By: Laura Rahman M.D. Signed By: 10/19/24 1130 DD/ 1127 TD/TT: [facility]: Procedure Note Radiology, Radiologist, MD - 10/19/2024 [place] [address] Ultrasound Report Signed Patient: SAPNA SERRANO KMR#: [id number] : 1995Acct:[id number] Age/Sex: 29 / FADM Date: 10/19/24 Loc: [facility] 250-[address]: Magan Paez D.O. Ordering Physician: Magan Paez D.O. Date of Service: 10/19/24 Procedure(s): US OB BPP w non-stress Accession Number(s): [id number] cc: ARMEN SÁNCHEZ ; Magan Paez D.O. The [place] [address] Patient Name: SAPNA SERRANO MRN: [id number] date: 1995 Sex: F Assigned Patient Location: Current Patient Location: US Accession/Order Number: [id number] Exam Date: 10/19/2024 11:25 Report Date: 10/19/2024 [...] Rahman M.D. 10/19/2024 11:27 AM Dictation Location: [place] [address] Electronically authenticated by: [id number] Y Date: 1:27 Dictated By: Laura Rahman M.D. Signed By:10/19/24 1130 DD/ 1127 TD/TT: [facility]: us Magan Jeannine DO [facility] Final Result documented in this encounter Visit Diagnoses Not on filedocumented in this encounter Care Teams Field Checker Relationship Specialty Start Date End Date Armen Sánchez MD PCP - General Family Medicine 05/05/24 documented as of this encounter
--- OUTSIDE RECORDS SUMMARY | 2024-10-26 09:34 | XMS_ITS | Encounter Summary ---
Author Organization [facility] Address [address] [facility] [place] [address] Care Team Providers Care Heavy Equipment Service Technician Name Role Phone Emi Bronson [facility] Unavailable + [phone] rAmen Sánchez MD Primary Care Provider + [phone] Encounter Details Date Type Department Care Team (Late st Contact Info) Description 05/24/2024 Abstract [facility] OB [address] [place] [address] Curtis Paez [address] [place], [place] [id number] Social History Tobacco Use Types Packs/Day Years [...] on filedocumented in this encounter Care Teams Heavy Equipment Service Technician Relationship Specialty Start Date End Date Armen Sánchez MD [address] [facility] [address] [place] [address] PCP - General Family Medicine 05/05/24 Emi Bronson, [facility] [address] [place] [address] Behavioral Health 04/12/24 09/26/24 documented as of this encounter
--- NOTE | 2024-10-26 16:00 | US_ITS ---
[address] [address] Patient Name: MICHI LUNA MRN: [id number] date: 1995 Sex: F Assigned Patient Location: [facility] Current Patient Location: [facility] Accession/Order Number: [id number] Exam Date: 10/26/2024 16:51 Report Date: 10/26/2024 16:52 At the request of: MAGAN TRISTAN DO Procedure: US OB BPP w non-stress Biophysical profile. Reason for exam: Cystic fibrosis COMPARISON: None TECHNIQUE: Transabdominal imaging of the gravid uterus was obtained. FINDINGS: The spiral winder reports a BPP of 8 out of 8. NAYE is normal at 17.6 cm. heart rate 150 bpm. US/US OB BPP w non-stress IMPRESSION: BPP 8 out of 8. Impression dictated by: Hugo Atkins Jr., D.O. 10/26/2024 4:52 PM Dictation Location: [place] [address] Electronically authenticated by: [id number] Y Date: 10/26/2024 16:52
[2024-10-26 16:18] VITALS: BP 128/67; PULSE 96
== END 2024-10-26 16:57 | disposition home or self-care (01) ==
LOC: US 09:29 → FBC 15:56
PROVIDERS: PCP Family Medicine; Visit Provider Obstetrics & Gynecology
DX: O43.899 Other placental disorders, unspecified trimester (principal)
CPT/HCPCS: 76818

== ENCOUNTER 2024-10-30 16:58 | Outpatient (OUT) | payer OTHER, SELFPAY ==
[2024-10-30 17:06] VITALS: BP 124/67; PULSE 90
== END 2024-10-30 17:30 | disposition home or self-care (01) ==
LOC: FBCO 16:59 → FBC 17:00
PROVIDERS: PCP Family Medicine; Visit Provider Obstetrics & Gynecology
DX: Z34.93 Encounter for supervision of normal pregnancy, unspecified, third trimester (principal); Z3A.32 32 weeks gestation of pregnancy
CPT/HCPCS: 59025

== ENCOUNTER 2024-11-01 10:53 | Outpatient (OUT) | payer OTHER, SELFPAY ==
--- OUTSIDE RECORDS SUMMARY | 2014-12-19 09:30 | XMS_ITS | Continuity of Care Document ---
Author Organization [facility] Address [address] [place] [address] Phone Care Team Providers Care Bail Bonding Agent Name Role Phone Yasmin Turcios MD Unavailable Unavailable Medications Medication Instructions Dosage Effective Dates (start - stop) Status Comments Depo-Provera 150 mg/mL intramuscular syringe inject 1 milliliter by intramuscular route every 3 months 150 MG - Active Problems Condition Type Effective Dates (start - stop) Clini ledy Status Comments No Known Problems Procedures Procedure Date Urin Pg Test Visual Color Comp THER/PROPH/DIAG INJ, SC/IM Init Preven Meds E&m New Pt; 18-39 Advance Directives Directive Yes / No Effective Date File Name No Information Encounters Encounter Description Practice Location Reason(s) For Visit Diagnoses Date Provider Providers Copied on Encounter [facility], [address], [place], [place], [address], tel:[phone] [facility] No Information Dec- 5 Tam NULL Yasmin. [address] [place], [place], [address], [place]. tel:[phone] [facility], [address], [place], [place], [address], tel:[phone] [facility] contraception (chief complaint) Test - NegativeSubse q. Contraceptive Surveillance Dec- 0 5 Tam Hoffman. [address] [place], [place], [address], [place]. tel:[phone] Init Preven Meds E&m New Pt; 18-39 [facility], [address], [place], [place], [address], [place] tel:[phone] [facility] annual exam (chief complaint) ROUTINE VENEER TAPER EXAMINATIONPr egnancy Test - Negative Tam NULL Yasmin. [address] [place], [place], [address], [place]. tel:[phone] Family History Family Member Type Diagnosis Age At Onset Paternal grandmother Problem (finding) breast cancer Payers Payer name Insurance type Covered democrat ID Authoriza tion(s) [place] [facility] [place] [id number] Social History Type Description Quantity Date Captured Comments Alcohol Use Details Unknown Caffeine Use Details Unknown Tobacco Use Status Smoking Status No Information Sex Female Chief Complaint And Reason For Visit No Information Reason For Referral Reason For Referral No Information History Of Present Illness Encounter Date Complaint History Of Prese nt Illness contraception UPT & Depo inj annual exam Functional Status Date Functional Assessmen t No Information Instructions Date Instruction Additional Infor mation No Information Assessments Type Assessment Date No Information Patient Care Teams Name Effective Dates (start - stop) Status Members No Information
--- OUTSIDE RECORDS SUMMARY | 2024-10-19 14:00 | XMS_ITS | Encounter Summary ---
Author Organization [facility] tem Address [id number] [address] [place] [address] Care Team Providers Care Field Operator Name Role Phone Armen Sánchez DO Primary Care Provider + [phone] Reason for Referral * OBGYN (Routine) - Pending Review Specialty Diagnoses / Procedures Referred By Thom patel Referred To Contact Maternal and Medicine Diagnoses Supervision of high risk in third trimester Procedures nonstress test - Maternal Medicine Corinne Driver DO [address] [address] Phone: tel: fax: Maternal- Medicine at [facility] [address] [place] [address] Phone: tel: fax: Referral ID Status Reason Start Date Expiration Date V isits Requested Visits Authorized [id number] Pending Review 10/19/2024 10/19/2025 4 4 Reason for Visit * Reason Comments Routine Visit Encounter Details Date Type Department Care Team (Late st Contact Info) Description 10/19/2024 2:00 PM EDT [facility] [address] [place] [phone] Rain Bond DO [address] [facility] [place] [address] [address] [place]: 32w2d Social History Tobacco Use Types Packs/Day Years Used Date Smoking Tobacco: Every Day Cigarettes 1 13.3 Started: 08/01/2011 Smokeless Tobacco: Never Alcohol Use Standard Drinks/Week Comments Not Currently 0 (1 standard drink = 0.6 oz pur e alcohol) [facility] Utilities Answer Date Recorded In the past 12 months has [employer], gas, oil, or water [employer] threatened to shut off services in your [...] often do you attend chur ch or oriental orthodox services? Never 01/27/2024 Do you belong to any clubs o r organizations such as restorationist groups, unions, fraternal or athletic groups, or [...] Answer Date Recorded Total Score 0 10/18/2024 [facility] of Occupat ional Health - Occupational Stress [...] Recorded Do you need help finding a [facility] [employer] center and/or a training program? No 08/25/2023 [...] - s/p amniocentesis with two CF variants ([id number] and T4012V). Patient is doing well overall. Reports good [...] 09/03/2023 Performed by Scotty Mahoney DO at [facility] Allergies Allergies Allergen Reactions Penicillins [...] S/p amniocentesis with two CF causing variants ([id number] and U8690T) - Follows with Maternal- Medicine - Plan for twice weekly NSTs, weekly bowel evaluation and DVP and growth US q4w - M US (09/29): cephalic, anterior, EFW 1456g (50%), AC 55%, DVP 5.6 cm, bowel appears prominent measuring at the 95% percentile. - Patient has met with cystic fibrosis specialist - Delivery timing to be determined by [facility] RTO in 2 weeks with HROB Patient seen and discussed with Dr. Ronda DO. Corinne Driver DO Document Design Specialist Resident, PGY-3 documented in this encounter Plan of Treatment Upcoming Encounters Date Type Department Care Team (Late st Contact Info) Description 11/03/2024 1:00 PM EDT [facility] [address] [place] [phone] Tiffany Easton MD [address] [place] [phone] 11/06/2024 11:00 AM EDT Appointment [facility] US Imaging [address] [place] [phone] 11/14/2024 3:30 PM EDT Appointment [facility] US Imaging [address] [place] [address] 11/21/2024 2:00 PM EDT Appointment [facility] US Imaging [address] [place] [address] 11/28/2024 11:00 AM EDT Appointment [facility] US Imaging [address] [place] [address] 11/28/2024 11:30 AM EDT Office Visit Maternal- Medicine at [facility] [address] [place] [address] Edil Bullock MD [address] [facility], [address] [place] [place] [phone] Scheduled Orders Name Type Priority Associated Diagnoses [...] documented as of this encounter Care Teams Field Operator Relationship Specialty Start Date End Date Armen Sánchez DO [address] [facility], [place] [address] PCP - General Family Medicine 08/25/23 documented as of this encounter
--- OUTSIDE RECORDS SUMMARY | 2024-10-19 15:14 | XMS_ITS | Encounter Summary ---
Demographics Address [address] [place] [address] Mobile Phone Email Address Email Address Preferred Language Maltese Marital Status Single Hindu Affiliation Unknown Race White Ethnic Group Not or Lati no Author Organization [facility] tem Address [id number] [address] [place] [address] Care Team Providers Care Service Technician Name Role Phone PrincessArmen Cedric [place] Primary Care Provider + [phone] Reason for Referral * Diagnostic Imaging (Routine) - Pending Review Specialty Diagnoses / Procedures Referred By Thom patel Referred To Contact Maternal and Medicine Diagnoses Abnormal genetic test during Maternal care for other (suspected) abnormality and damage, gastrointestinal anomalies, not applicable or unspecified Cystic fibrosis carrier Procedures US [facility] with or without consult Brionna Sanabria MD [address] [address] Phone: tel: fax: Maternal- Medicine at [facility] [address] [place] [address] Phone: tel: fax: Referral ID Status Reason Start Date Expiration Date V isits Requested Visits Authorized [id number] Pending Review 10/13/2024 10/13/2025 1 1 Reason for Visit * Diagnostic Imaging (Routine) - Pending Review Specialty Diagnoses / Procedures Referred By Thom patel Referred To Contact Maternal and Medicine Diagnoses Abnormal genetic test during Maternal care for other (suspected) abnormality and damage, gastrointestinal anomalies, not applicable or unspecified Cystic fibrosis carrier Procedures US [facility] with or without consult Brionna Sanabria MD [address] [facility] 1st [place] [address] Phone: tel: fax: Maternal- Medicine at [facility] [address] [place] [address] Phone: tel: fax: Referral ID Status Reason Start Date Expiration Date V isits Requested Visits Authorized [id number] Pending Review 10/13/2024 10/13/2025 1 1 Encounter Details Date Type Department Care Team (Latest Contact Info) Description 10/19/2024 3:14 PM EDT - 10/19/2024 11:59 PM EDT Hospital Encounter [facility] US Imaging [address] [place] [address] Abnormal genetic test during ; [...] drink = 0.6 oz pur e alcohol) [facility] Utilities Answer Date Recorded In [...] often do you attend chur ch or quaker services? Never 01/27/2024 Do you belong to any clubs o r organizations such as druze groups, unions, fraternal or athletic groups, or [...] Answer Date Recorded Total Score 0 10/18/2024 [facility] - [...] Do you need help finding a [facility] and/or a training [...] Health Services - Women's Services [address] [place] [address] Tiffany Easton MD [address] [place] [phone] 11/06/2024 11:00 AM EDT Appointment [facility] US Imaging [address] [place] [phone] 11/14/2024 3:30 PM EDT Appointment [facility] US Imaging [address] [place] [address] 11/21/2024 2:00 PM EDT Appointment [facility] US Imaging [address] [place] [address] 11/28/2024 11:00 AM EDT Appointment [facility] US Imaging [address] [place] [address] 11/28/2024 11:30 AM EDT Office Visit Maternal- Medicine at [facility] [address] [place] [address] Edil Bullock MD [address] [address] documented as of this encounter Procedures Procedure [...] 3:42 PM EDT) Anatomical Region Laterality Modality OB-ORAL SURGEON Ultrasound 10/19/2024 3:20 PM EDT Narrative 10/19/2024 5:13 PM EDT NAME: JEREMY BORDEN : 1995 SEX: F Accession Number: [id number] ORDERING PHYSICIAN: BRIONNA SANABRIA REFERRING PHYSICIAN: CLIFTON IVERSON Coding ----- --------- Procedures 31204: Limited OB / NAYE, 1 or More Fetuses Indication ----- --------- Abnormal finding on screening of mother-MOB + FOB CF carriers, Depression, Anxiety , Supervision of high risk , cystic fibrosis. History ----- --------- OB History 1. Para 0 [id number] Current ----- --------- Cell free DNA low [...] BORDEN : 1995 SEX: F Accession Number: [id number] ORDERING PHYSICIAN: BRIONNA SANABRIA REFERRING PHYSICIAN: CLIFTON IVERSON Coding ----- --------- Procedures 56832: Limited OB / NAYE, 1 or More Fetuses Indication ----- --------- Abnormal finding on screening of mother-MOB + FOB CF carriers,Depression, Anxiety , Supervision of high risk , cystic fibrosis. History ----- --------- OB History 1. Para 0 [id number] Current ----- --------- Cell free DNA low [...] thepatient as necessary. us Brionna Sanabria MD IMG US ORDERABLES Final Result documented in this [...] documented as of this encounter Care Teams Service Technician Relationship Specialty Start Date End Date Armen Sánchez DO [address] [facility], [facility] [place] [address] PCP - General Family Medicine 08/25/23 documented as of this encounter
--- OUTSIDE RECORDS SUMMARY | 2024-10-23 12:53 | XMS_ITS | Encounter Summary ---
Demographics Address [address] [place] [address] Mobile Phone Email Address Preferred Language Italian Marital Status Single Lutheran Affiliation Unknown Race White Ethnic Group Not or Lati no Author Organization [facility] tem Address [id number] [address] [place] [address] Care Team Providers Care Meat Washer Name Role Phone PrincessArmen Cedric [place] Primary Care Provider + [phone] Reason for Referral * Diagnostic Imaging (Routine) - Pending Review Specialty Diagnoses / Procedures Referred By Thom patel Referred To Contact Maternal and Medicine Diagnoses Abnormal genetic test during Maternal care for other (suspected) abnormality and damage, gastrointestinal anomalies, not applicable or unspecified Cystic fibrosis carrier Procedures US [facility] with or without consult Brionna Sanabria MD [address] [address] Phone: tel: fax: Maternal- Medicine at [facility] [address] [place] [address] Phone: tel: fax: Referral ID Status Reason Start Date Expiration Date V isits Requested Visits Authorized [id number] Pending Review 10/13/2024 10/13/2025 1 1 Reason for Visit * Diagnostic Imaging (Routine) - Pending Review Specialty Diagnoses / Procedures Referred By Thom patel Referred To Contact Maternal and Medicine Diagnoses Abnormal genetic test during Maternal care for other (suspected) abnormality and damage, gastrointestinal anomalies, not applicable or unspecified Cystic fibrosis carrier Procedures US [facility] with or without consult Brionna Sanabria MD [address] [facility] 1st [place] [address] Phone: tel: fax: Maternal- Medicine at [facility] [address] [place] [address] Phone: tel: fax: Referral ID Status Reason Start Date Expiration Date V isits Requested Visits Authorized [id number] Pending Review 10/13/2024 10/13/2025 1 1 Encounter Details Date Type Department Care Team (Latest Contact Info) Description 10/23/2024 12:53 PM EDT - 10/23/2024 11:59 PM EDT Hospital Encounter [facility] - [facility] US Imaging [address] [place] [address] Abnormal genetic test during ; [...] drink = 0.6 oz pur e alcohol) [facility] Utilities Answer Date Recorded In [...] often do you attend chur ch or lutheran services? Never 01/27/2024 Do you belong to any clubs o r organizations such as alevism groups, unions, fraternal or athletic groups, or [...] Answer Date Recorded Total Score 0 10/18/2024 [facility] [...] Recorded Do you need help finding a [facility] and/or a training program? [...] Health Services - Women's Services [address] [place] [address] Tiffany Easton MD [address] [place] [address] 11/06/2024 11:00 AM EDT Appointment [facility] US Imaging [address] [place] [phone] 11/14/2024 3:30 PM EDT Appointment [facility] US Imaging [address] [place] [address] 11/21/2024 2:00 PM EDT Appointment [facility] US Imaging [address] [place] [address] 11/28/2024 11:00 AM EDT Appointment [facility] - [facility] US Imaging [address] [place] [address] 11/28/2024 11:30 AM EDT Office Visit Maternal- Medicine at [facility] [address] [place] [address] Edil Bullock MD [address] [address] documented as of this encounter Procedures Procedure Name Priority Date/Time Associated Diagnosis Comments US MFM LMTD OB, 1 OR MORE FETUS Routine 10/23/2024 1:31 PM EDT Abnormal genetic test during Maternal care for other (suspected) abnormality and damage, gastrointestinal anomalies, not applicable or unspecified Cystic fibrosis carrier documented in this encounter Results * US MFM LMTD OB, 1 OR MORE FETUS (10/23/2024 1:31 PM EDT) Anatomical Region Laterality Modality OB-ACADEMIC SUPPORT SPECIALIST Ultrasound 10/23/2024 1:00 PM EDT Narrative 10/23/2024 2:58 PM EDT NAME: JEREMY BORDEN : 1995 SEX: F Accession Number: [id number] ORDERING PHYSICIAN: BRIONNA SANABRIA REFERRING PHYSICIAN: CLIFTON IVERSON Coding ----- --------- Procedures 14641: Limited OB / NAYE, 1 or More Fetuses Indication ----- --------- Abnormal finding on screening of mother-MOB + FOB CF carriers, Depression, Anxiety , Supervision of high risk , cystic fibrosis. History ----- --------- OB History 1. Para 0 [id number] Current ----- --------- Cell free DNA low [...] 03/07/2024 GA by LMP 32 w + 6 d DOMINIQUE by LMP: 12/12/2024 Previous Ultrasound on: 04/27/2024 Type of prior assessment: GA GA at prior assessment date 7 w + 2 d GA by previous U/S 32 w + 6 d DOMINIQUE by previous Ultrasound: 12/12/2024 Assigned: based on the LMP, selected on 07/28/2024 Assigned GA 32 w + 6 d Assigned DOMINIQUE: 12/12/2024 General Evaluation ----- --------- Cardiac activity Present. FHR 149 bpm. movements: visualized. Presentation: cephalic Placenta: Placental site: anterior, previously documented away from cervical os Amniotic fluid: Amount of AF: normal amount. MVP 7.2 cm Maternal Structures ----- --------- Uterus Visualized Cervix Suboptimal Right Ovary Not visualized Left Ovary Not visualized Cul de Sac Suboptimal Impression ----- --------- Single viable intrauterine . Amniotic fluid MVP measures 7.2 cm. Recommendations ----- --------- Continue testing as previously recommended. Subsequent follow up or other follow up as clinically determined by primary OB provider unless otherwise specified by MFM. Results forwarded to ordering provider so they can follow up with the patient as necessary. Procedure Note Suresh Valencia MD - 10/23/2024 NAME: JEREMY BORDEN : 1995 SEX: F Accession Number: [id number] ORDERING PHYSICIAN: BRIONNA SANABRIA REFERRING PHYSICIAN: CLIFTON IVERSON Coding ----- --------- Procedures 38879: Limited OB / NAYE, 1 or More Fetuses Indication ----- --------- Abnormal finding on screening of mother-MOB + FOB CF carriers,Depression, Anxiety , Supervision of high risk , cystic fibrosis. History ----- --------- OB History 1. Para 0 [id number] Current ----- --------- Cell free DNA low [...] 03/07/2024 GA by LMP 32 w + 6 d DOMINIQUE by LMP: 12/12/2024 Previous Ultrasound on: 04/27/2024 Type of prior assessment: GA GA at prior assessment date 7 w + 2 d GA by previous U/S 32 w + 6 d DOMINIQUE by previous Ultrasound: 12/12/2024 Assigned: based on the LMP, selected on 07/28/2024 Assigned GA 32 w + 6 d Assigned DOMINIQUE: 12/12/2024 General Evaluation ----- --------- Cardiac activity Present. FHR 149 bpm. movements: visualized.Presentation: cephalic Placenta: Placental site: anterior, previously documented away fromcervical os Amniotic fluid: Amount of AF: normal amount. MVP 7.2 cm Maternal Structures ----- --------- Uterus Visualized Cervix Suboptimal Right Ovary Not visualized Left Ovary Not visualized Cul de Sac Suboptimal Impression ----- --------- Single viable intrauterine . Amniotic fluid MVP measures 7.2 cm. Recommendations ----- --------- Continue testing as previously recommended. Subsequent follow up or other follow up as clinically determined byprimary OB provider unless otherwise specified by MFM. Results forwarded to ordering provider so they can follow up with thepatient as necessary. us Brionna Sanabria MD IM US ORDERABLES Final Result documented in this [...] documented as of this encounter Care Teams Meat Washer Relationship Specialty Start Date End Date Armen Sánchez DO [address] [facility] [place] [address] PCP - General Family Medicine 08/25/23 documented as of this encounter
--- OUTSIDE RECORDS SUMMARY | 2024-10-23 13:45 | XMS_ITS | Encounter Summary ---
Demographics Address [address] [place] [address] Mobile Phone Email Address Email Address Preferred Language Syriac Marital Status Single Islam Affiliation Unknown Race White Ethnic Group Not or Lati no Author Organization [employer] tem Address [facility][id number] [address] [place] [address] Care Team Providers Care Director Of Rehabilitation Name Role Phone Armen Sánchez DO Primary Care Provider + [phone] Reason for Visit * Reason Comments Non-stress Test * OBGYN (Routine) - Pending Review Specialty Diagnoses / Procedures Referred By Thom patel Referred To Contact Maternal and Medicine Diagnoses Supervision of high risk in third trimester Procedures nonstress test - Maternal Medicine Corinne Driver DO [address] [address] Phone: tel: fax: Maternal- Medicine at [facility] [address] [place] [address] Phone: tel: fax: Referral ID Status Reason Start Date Expiration Date V isits Requested Visits Authorized [id number] Pending Review 10/19/2024 10/19/2025 4 4 Encounter Details Date Type Department Care Team (Late st Contact Info) Description 10/23/2024 1:45 PM EDT Support Visit Maternal- Medicine at [facility] [address] [place] [address] Cystic fibrosis carrier, antepartum (Primary Dx); Supervision of high risk in third trimester; Overweight Social History Tobacco Use Types Packs/Day Years Used Date Smoking Tobacco: Every Day Cigarettes 1 13.3 Started: 08/01/2011 Smokeless Tobacco: Never Alcohol Use Standard Drinks/Week Comments Not Currently 0 (1 standard drink = 0.6 oz pur e alcohol) [facility] Utilities Answer Date Recorded In the [...] any clubs o r organizations such as temple groups, unions, fraternal or athletic groups, or [...] Answer Date Recorded Total Score 0 10/18/2024 [facility] of Occupat ional Health - Occupational Stress [...] Do you need help finding a [facility] career center and/or a training program? [...] Health Services - Women's Services [address] [place] [address] Tiffany [place] MD [address] [place] [address] 11/06/2024 11:00 AM EDT Appointment [facility] US Imaging [address] [place] [address] 11/14/2024 3:30 PM EDT Appointment [facility] US Imaging [address] [place] [address] 11/21/2024 2:00 PM EDT Appointment [facility] US Imaging [address] [place] [address] 11/28/2024 11:00 AM EDT Appointment [facility] US Imaging [address] [place] [address] 11/28/2024 11:30 AM EDT Office Visit Maternal- Medicine at [facility] [address] [facility] [place] [address] Edil Bullock MD [address] [place] [address] documented as of this encounter Procedures Procedure [...] documented as of this encounter Care Teams Director Of Rehabilitation Relationship Specialty Start Date End Date Armen Sánchez DO [address], [place] [address] PCP - General Family Medicine 08/25/23 documented as of this encounter
--- OUTSIDE RECORDS SUMMARY | 2024-10-30 10:43 | XMS_ITS | Encounter Summary ---
Author Organization [facility] tem Address [id number] [address] [place] [address] Care Team Providers Care Preassembler Printed Circuit Board Name Role Phone PrincessArmen Cedric [place] Primary Care Provider + [phone] Reason for Referral * Diagnostic Imaging (Routine) - Pending Review Specialty Diagnoses / Procedures Referred By Thom patel Referred To Contact Maternal and Medicine Diagnoses Abnormal genetic test during Maternal care for other (suspected) abnormality and damage, gastrointestinal anomalies, not applicable or unspecified Cystic fibrosis carrier Procedures US MFM with or without consult Brionna Sanabria MD [address] [address] Phone: tel: fax: Maternal- Medicine at [facility] [address] [place] [address] Phone: tel: fax: Referral ID Status Reason Start Date Expiration Date V isits Requested Visits Authorized [id number] Pending Review 10/13/2024 10/13/2025 1 1 Reason for Visit * Diagnostic Imaging (Routine) - Pending Review Specialty Diagnoses / Procedures Referred By Thom patel Referred To Contact Maternal and Medicine Diagnoses Abnormal genetic test during Maternal care for other (suspected) abnormality and damage, gastrointestinal anomalies, not applicable or unspecified Cystic fibrosis carrier Procedures US MFM with or without consult Brionna Sanabria MD [address] [facility] 1[address] [place] [address] Phone: tel: fax: Maternal- Medicine at [facility] [address] [place] [address] Phone: tel: fax: Referral ID Status Reason Start Date Expiration Date V isits Requested Visits Authorized [id number] Pending Review 10/13/2024 10/13/2025 1 1 Encounter Details Date Type Department Care Team (Latest Contact Info) Description 10/30/2024 10:43 AM EDT - 10/30/2024 11:59 PM EDT Hospital Encounter [facility] US Imaging [address] [place] [address] Abnormal genetic test during ; [...] drink = 0.6 oz pur e alcohol) [place] Utilities Answer Date Recorded In the past [...] often do you attend chur ch or evangelical services? Never 01/27/2024 Do you belong to any clubs o r organizations such as confucianist groups, unions, fraternal or athletic groups, or [...] Do you need help finding a [facility] career [facility] and/or a training program? [...] Health Services - Women's Services [address] [place] [address] Tiffany Easton MD [address] [place] [phone] 11/06/2024 11:00 AM EDT Appointment [facility] US Imaging [address] [place] [phone] 11/14/2024 3:30 PM EDT Appointment [facility] US Imaging [address] [place] [address] 11/21/2024 2:00 PM EDT Appointment [facility] US Imaging [address] [place] [address] 11/28/2024 11:00 AM EDT Appointment [facility] US Imaging [address] [place] [address] 11/28/2024 11:30 AM EDT Office Visit Maternal- Medicine at [facility] [address] [place] [address] Edil Bullock MD [address] [address] documented as of this encounter Procedures Procedure [...] 12:14 PM EDT) Anatomical Region Laterality Modality OB-DECALER Ultrasound 10/30/2024 11:3 6 AM EDT Narrative 10/30/2024 2:34 PM EDT NAME: JEREMY BORDEN : 1995 SEX: F Accession Number: [id number] ORDERING PHYSICIAN: BRIONNA SANABRIA REFERRING PHYSICIAN: MAGAN TRISTAN Coding ----- --------- Procedures 51572: Follow-up Ultrasound, per fetus Indication ----- --------- Abnormal finding on screening of mother-MOB + FOB CF carriers, Depression, Anxiety , Supervision of high risk , recent trauma to abdomen , prominent bowel , cystic fibrosis History ----- --------- OB History 1. Para 0 [id number] Current ----- --------- Cell free DNA low [...] EFW (oz) 13 oz EFW by: Hadlock ([id number]-TZ-IO-FL) Extended Tibia 55.5 mm 32w 5d 31% Dank Dental Intern 2.5 mm CM 8.1 mm 69% Nicolaides [...] BORDEN : 1995 SEX: F Accession Number: [id number] ORDERING PHYSICIAN: BRIONNA SANABRIA REFERRING PHYSICIAN: MAGAN TRISTAN Coding ----- --------- Procedures 37812: Follow-up Ultrasound, per fetus Indication ----- --------- Abnormal finding on screening of mother-MOB + FOB CF carriers,Depression, Anxiety , Supervision of high risk , recent trauma to abdomen , prominent bowel , cysticfibrosis History ----- --------- OB History 1. Para 0 [id number] Current ----- --------- Cell free DNA low [...] EFW (oz) 13 oz EFW by: Hadlock (LSW-AL-NO-FL) Extended Tibia 55.5 mm 32w 5d 31% Dank Dental Intern 2.5 mm CM 8.1 mm 69% Nicolaides [...] with thepatient as necessary. Brionna Sanabria MD [facility] US ORDERABLES Final Result documented in this [...] documented as of this encounter Care Teams Preassembler Printed Circuit Board Relationship Specialty Start Date End Date Armen Sánchez DO [address], [facility] [place] [address] PCP - General Family Medicine 08/25/23 documented as of this encounter
--- OUTSIDE RECORDS SUMMARY | 2024-10-30 11:30 | XMS_ITS | Encounter Summary ---
Author Organization [facility] [employer] [facility] tem Address [id number] [address] [place] [address] Care Team Providers Care Piccoloist Name Role Phone MasoodArmen silverman Cedric PHOENIX Primary Care Provider Reason for Visit * Reason Comments Cystic Fibrosis Prominent Bowel Encounter Details Date Type Department Care Team (Latest Contact Info) Description 10/30/2024 11:30 AM EDT Office Visit Maternal- Medicine at [facility] [address] [place] [address] Angela Gardner MD [address] [facility], [address] [place] [address] Cystic fibrosis carrier, antepartum (Primary Dx); Maternal care for other (suspected) abnormality and damage, gastrointestinal anomalies, not applicable or unspecified; Overweight Social History Tobacco Use Types Packs/Day Years Used Date Smoking Tobacco: Every Day Cigarettes 1 13.3 Started: 08/01/2011 Smokeless Tobacco: Never Alcohol Use Standard Drinks/Week Comments Not Currently 0 (1 standard drink = 0.6 oz pur e alcohol) [facility] Utilities Answer Date Recorded In the past 12 months has [employer], gas, oil, or water company threatened to [...] Answer Date Recorded Total Score 0 10/18/2024 [facility] [place] of Occupat ional Health - Occupational Stress [...] Sign Reading Time Taken Comments Blood Pressure 122/82 10/30/2024 11:15 AM EDT Pulse 91 10/30/2024 11:15 AM EDT Temperature - - Respiratory Rate - - Oxygen Saturation - - Inhaled Oxygen Concentration - - Weight 98.2 kg (216 lb 6.4 oz) 10/30/2024 11:15 AM EDT Height 162.6 cm (5' 4.02 ) 10/30/2024 11:15 AM E DT Body Mass Index 37.13 10/30/2024 11:15 AM EDT documented in this encounter Progress Notes * Jocy Maradiaga LPN - 10/30/2024 11:30 AM EDT Headache/epigastric pain/blurry vision/swelling? Feet swelling Cramping/contractions? Cramping off and on with lightening crotch Spotting or vaginal bleeding? No Loss or gush of fluid like your water may have broken? No Recent ER visits or hospitalizations? No Any concerns that you would like me to mention to the provider today? No * Angela Gardner MD - 10/30/2024 11:30 AM EDT REASON FOR OFFICE VISIT: Prominent bowel in a fetus with known cystic fibrosis HISTORY OF PRESENT ILLNESS: Sapna Serrano is a pleasant 29 y.o. G0 at 33w6d due on Estimated Date of Delivery: 12/12/24 . has been complicated with cystic fibrosis. She underwent amniocentesis which indicated two CF causing variants (U372mlh and S4009Z). Currently the patient has no complaints. The patient denies nausea, vomiting, abdominal pain, vaginal bleeding, SOB or chest pain. Patient Active Problem List Diagnosis Rectal bleeding Vitamin D deficiency Depression Anxiety Onychomycosis Overweight Maternal care for other (suspected) abnormality and damage, gastrointestinal anomalies,not applicable or unspecified Cystic fibrosis carrier, antepartum ALLERGIES: Allergies Allergen Reactions Penicillins Other (See [...] on 07/28/2024), Disp: 30 capsule, Rfl: 3 Past Medical History: Diagnosis Date Abnormal Pap smear of cervix Anxiety Cystic fibrosis carrier Depression HPV (human papilloma virus) infection Rectal bleed Visual impairment REVIEW OF SYSTEMS: Head and Neck: Negative for any dizziness and headaches. Cardiovascular and Respiratory System: Denies any chest pain, shortness of breath, and coughing. Abdominal and System: Denies any abdominal pain, nausea, vomiting, vaginal bleeding, and vaginal discharge REVIEW OF ULTRASOUND. The estimated weight is at the 30th percentile with normal amniotic fluid volume. Although there are some prominent bowel loops. There is no evidence of dilated bowel or obstruction that would be consistent with a definite meconium ileus. Pertinent Ultrasound findings are see report. PHYSICAL EXAMINATION: BP 122/82 (BP Site: Left Arm, BP Postition: Lying) Pulse 91 Ht 162.6 cm (5' 4.02 ) Wt 98.2 kg (216 lb 6.4 oz) LMP 03/07/2024 Comment: test negative 09/03/23 at 1242 BMI 37.13 kg/m?? . Gravid abdomen, Respirations not labored. Normal gait well oriented in time place and person. RECOMMENDATION: - twice weekly NSTs through primary OB office - Weekly bowel evaluation and DVP through [facility] for now - repeat growth ultrasound in 4 weeks with MFM - the patient has seen a cystic fibrosis specialist - location of delivery to be further addressed. Thank you for allowing me to [facility]. If there are any questions, please do not hesitate to call me. Sincerely, ANGELA GARDNER MD documented in this encounter Plan of Treatment Upcoming Encounters Date Type Department Care Team (Late st Contact Info) Description 11/03/2024 1:00 PM EDT [facility] [address] [place] [address] Tiffany Easton MD [address] [place] [address] 11/06/2024 11:00 AM EDT Appointment [facility] - [facility] US Imaging [address] [place] [phone] 11/14/2024 3:30 PM EDT Appointment [facility] - [facility] US Imaging [address] [place] [phone] 11/21/2024 2:00 PM EDT Appointment [facility] - [facility] US Imaging [address] [place] [phone] 11/28/2024 11:00 AM EDT Appointment [facility] - [facility] US Imaging [address] [place] [phone] 11/28/2024 11:30 AM EDT Office Visit Maternal- Medicine at [facility] [address] [facility] [place] [phone] Edil Bullock MD [address] [facility], [address] [place] [address] documented as of this encounter Visit Diagnoses Diagnosis Cystic fibrosis carrier, antepartum- Primary Maternal care for other (suspected) abnormality and damage, gastrointestinal anomalies, not applicable or unspecified Overweight documented in this encounter Additional Health Concerns Assessment Noted Time PHQ-9 Depression Total Score: 0 10/19/19 25 4:00 AM EDT A Body Mass Index follow-up plan has been documented for the patient 08/10/2023 10:14 AM EDT documented as of this encounter Care Teams Piccoloist Relationship Specialty Start Date End Date Armen Sánchez DO [address], [facility] [place] [address] PCP - General Family Medicine 08/25/23 documented as of this encounter
--- NOTE | 2024-11-01 | US_ITS ---
The [address] [address] Patient Name: MICHI LUNA MRN: [id number] date: 1995 Sex: F Assigned Patient Location: US Current Patient Location: Accession/Order Number: [id number] Exam Date: 11/01/2024 11:33 Report Date: 11/01/2024 11:35 At the request of: JHOAN VAUGHN Procedure: US OB cervical length Cervical length ultrasound. Reason for exam: Third trimester . TECHNIQUE: Transvaginal imaging of the cervix was obtained. FINDINGS: Cervical length measures 4.1 cm without evidence of funneling. heart rate 128 bpm. US/US OB cervical length Impression: Normal cervical length without evidence of funneling. Impression dictated by: Hugo Atkins Jr., D.O. 11/01/2024 11:35 AM Dictation Location: [facility] Electronically authenticated by: [id number] Y Date: 11/01/2024 11:35
--- OUTSIDE RECORDS SUMMARY | 2024-11-01 10:54 | XMS_ITS | Encounter Summary ---
Author Organization [facility] tem Address [id number] [address] [place] [address] Care Team Providers Care Radiator Specialist Name Role Phone PrincessArmen Cedric PHOENIX Primary Care Provider Encounter Details Date Type Department Care Team (Late st Contact Info) Description 09/25/2024 Orders Only Maternal- Medicine at [facility] [address] [place] [address] Ref Prov, [place] [address] Social History Tobacco Use Types Packs/Day Years Used Date Smoking Tobacco: Every Day Cigarettes 1 13.3 Started: 08/01/2011 Smokeless Tobacco: Never Alcohol Use Standard Drinks/Week Comments Not Currently 0 (1 standard drink = 0.6 oz pur e alcohol) [facility] Utilities Answer Date Recorded In the past 12 months has [employer], gas, oil, or water company threatened to [...] often do you attend chur ch or catholic services? Never 01/27/2024 Do you belong [...] Date Recorded Total Score 0 10/27/2023 [facility] [place] of Occupat ional Health - Occupational Stress [...] Recorded Do you need help finding a [employer] career center and/or a training program? No [...] Health Services - Women's Services [address] [place] [address] Tiffany Easton MD [address] [place] [address] 11/06/2024 11:00 AM EDT Appointment [facility] US Imaging [address] [place] [address] 11/14/2024 3:30 PM EDT Appointment [facility] US Imaging [address] [place] [address] 11/21/2024 2:00 PM EDT Appointment [facility] US Imaging [address] [place] [address] 11/28/2024 11:00 AM EDT Appointment [facility] US Imaging [address] [place] [address] 11/28/2024 11:30 AM EDT Office Visit Maternal- Medicine at [facility] [address] [place] [address] Edil Bullock MD [address] [facility], [address] [place] [address] documented as of this encounter Procedures Procedure Name Priority Date/Time Associated Diagnosis Comments US PREG LMTD 1 OR MORE FETUS Routine 09/25/2024 8:28 AM EDT documented in this encounter Results * Ultrasound limited 1 or more fetus (09/25/2024 8:28 AM EDT) Anatomical Region Laterality Modality OB-CLUB DIRECTOR Ultrasound us Not In System Ref Prov IMG US ORDERABLES Final R esult documented in this encounter Visit Diagnoses Not on filedocumented in this encounter Additional Health Concerns Assessment Noted Time PHQ-9 Depression Total Score: 0 10/27/19 10:25 AM EDT A Body Mass Index follow-up plan has been documented for the patient 08/10/2023 10:14 AM EDT documented as of this encounter Care Teams Radiator Specialist Relationship Specialty Start Date End Date Armen Sánchez DO [address] [facility], [place] [address] PCP - General Family Medicine 08/25/23 documented as of this encounter
--- OUTSIDE RECORDS SUMMARY | 2024-11-01 10:54 | XMS_ITS | Clinical Summary ---
Demographics Address [address] [place] [address] Home Phone Work Phone Mobile Phone Email Address Email Address Preferred Language Georgian Marital Status Single Confucianist Affiliation Unknown Race White Ethnic Group Not or Lati no Author Organization [facility] Address [address] [facility], [address] [place] [address] Care Team Providers Care Door Liner Name Role Phone Armen Sánchez Primary Care Provider [phone] Allergies Active Allergy Reactions Criticality Noted Date [...] today Need for prophylactic vaccin ation against xsekrzvqbu-qbldfbh-ogwvxqkrz (DTP) 08/16/2018 Assessment & Plan (08/16/2018 4:03 [...] Hospital Encounter [facility] Labor and Delivery [address] [place] [address] Victorino Christie, Discharge Disposition: Home or Self [...] Personal/Family Self 1995 [address] [place] [address] [facility] Care Teams Door Liner Relationship Specialty Start Date End Date Armen Sánchez DO [address] [place] [address] PCP - General Family Medicine 04/27/24
--- OUTSIDE RECORDS SUMMARY | 2024-11-01 10:54 | XMS_ITS | Encounter Summary ---
Author Organization [facility] tem Address [id number] [address] [place] [address] Care Team Providers Care Heel Cementer Name Role Phone PrincessArmen Cedric PHOENIX Primary Care Provider Encounter Details Date Type Department Care Team (Late st Contact Info) Description 10/24/2024 Telephone Maternal- Medicine at [facility] [address] [place] [address] Suresh Valencia MD [address] [facility], [address] [place] [address] Social History Tobacco Use Types Packs/Day Years Used Date Smoking Tobacco: Every Day Cigarettes 1 13.3 Started: 08/01/2011 Smokeless Tobacco: Never Alcohol Use Standard Drinks/Week Comments Not Currently 0 (1 standard drink = 0.6 oz pur e alcohol) [place] Utilities Answer Date Recorded In the past 12 months has [employer], gas, oil, or water [employer] threatened to shut off services in your home? No 08/25/2023 Social Connection and Isolation Panel [NHANES] A nswer Date Recorded In a typical week, how many times do you talk on the phone with family, friends, or neighbors? Three times a week 01/27/2024 How often do you get togethe r with friends or relatives? Once a week 01/27/2024 How often do you attend [facility] or oriental orthodox services? Never 01/27/2024 Do [...] Answer Date Recorded Total Score 0 10/18/2024 [facility] of Occupat ional Health [...] Recorded Do you need help finding a [facility] career center and/or a training program? [...] 10/24/2024 1:12 PM EDT Per Joyce Loaiza, story writer [facility] stating that we will wait to schedule from the next tracker on 10/30. Criminal Investigative Agent also asked if pt wanted an nst scheduled on 10/30. documented in this encounter Plan of Treatment Upcoming Encounters Date Type Department Care Team (Late st Contact Info) Description 11/03/2024 1:00 PM EDT [facility] [address] [place] [address] Tiffany Easton MD [address] [place] [address] 11/06/2024 11:00 AM EDT Appointment [facility] US Imaging [address] [place] [address] 11/14/2024 3:30 PM EDT Appointment [facility] US Imaging [address] [place] [address] 11/21/2024 2:00 PM EDT Appointment [facility] US Imaging [address] [place] [address] 11/28/2024 11:00 AM EDT Appointment [facility] US Imaging [address] [place] [address] 11/28/2024 11:30 AM EDT Office Visit Maternal- Medicine at [facility] [address] [place] [address] Edil Bullock MD [address] [facility], [address] [place] [address] documented as of this encounter Visit Diagnoses Not on filedocumented in this encounter Additional Health Concerns Assessment Noted Time PHQ-9 Depression Total Score: 0 10/19/19 25 4:00 AM EDT A Body Mass Index follow-up plan has been documented for the patient 08/10/2023 10:14 AM EDT documented as of this encounter Care Teams Heel Cementer Relationship Specialty Start Date End Date Armen Sánchez DO [address] [facility] [address] PCP - General Family Medicine 08/25/23 documented as of this encounter
--- OUTSIDE RECORDS SUMMARY | 2024-11-01 10:54 | XMS_ITS | Encounter Summary ---
Author Organization [facility] Address [id number] [address] [place] [address] Care Team Providers Care Vp Strategy Name Role Phone PrincessArmen Cedric PHOENIX Primary Care Provider Encounter Details Date Type Department Care Team (Late st Contact Info) Description 08/26/2023 Orders Only [facility] Internal Medicine - Family Medicine [address] [place] [address] Scotty Mahoney DO [address] [place] [address] Rectal bleeding (Primary Dx) Social History Tobacco Use Types Packs/Day Years Used Date Smoking Tobacco: Every Day Cigarettes 1 13.3 Started: 08/01/2011 Smokeless Tobacco: Never Alcohol Use Standard Drinks/Week Comments Not Currently 0 (1 standard drink = 0.6 oz pur e alcohol) [facility] Utilities Answer Date Recorded In the past 12 months has [employer], gas, oil, or water [place] threatened to shut off services in your [...] week 08/25/2023 How often do you attend [facility] or jehovah's witness services? Never 08/25/2023 Do you belong to [...] Answer Date Recorded Total Score 6 08/25/2023 [facility] of Occupat ional [...] Health Services - Women's Services [address] [place] [address] Tiffany Easton MD [address] [place] [address] 11/06/2024 11:00 AM EDT Appointment [facility] US Imaging [address] [place] [address] 11/14/2024 3:30 PM EDT Appointment [facility] US Imaging [address] [place] [address] 11/21/2024 2:00 PM EDT Appointment [facility] US Imaging [address] [place] [address] 11/28/2024 11:00 AM EDT Appointment [facility] US Imaging [address] [place] [address] 11/28/2024 11:30 AM EDT Office Visit Maternal- Medicine at [facility] [address] [place] [address] Edil Bullock MD [address] [facility] [place], [address] [place] [address] documented as of this encounter Visit Diagnoses Diagnosis Rectal bleeding- Primary Hemorrhage of rectum and anus documented in this encounter Additional Health Concerns Assessment Noted Time PHQ-9 Depression Total Score: 6 08/25/19 9:30 AM EDT A Body Mass Index follow-up plan has been documented for the patient 08/10/2023 10:14 AM EDT documented as of this encounter Care Teams Vp Strategy Relationship Specialty Start Date End Date Armen Sánchez DO [address] [facility] [place] [address] PCP - General Family Medicine 08/25/23 documented as of this encounter
--- OUTSIDE RECORDS SUMMARY | 2024-11-01 10:54 | XMS_ITS | Encounter Summary ---
Author Organization [facility] Address [address] [facility] [address] [place] [address] Care Team Providers Care Criminal Defense Attorney Name Role Phone Emi Bronson [facility] Unavailable + [phone] Armen Sánchez MD Primary Care Provider + [phone] Encounter Details Date Type Department Care Team (Late st Contact Info) Description 09/21/2024 Abstract [facility] [address] [place] [phone] Curtis Paez DO [address] [facility] [place] [address] Social History Tobacco Use Types Packs/Day Years [...] on filedocumented in this encounter Care Teams Criminal Defense Attorney Relationship Specialty Start Date End Date Armen Sánchez MD [address] [place] [address] PCP - General Family Medicine 05/05/24 Emi Bronson [facility] [address] [place] [address] Behavioral Health 04/12/24 09/26/24 documented as of this encounter
--- OUTSIDE RECORDS SUMMARY | 2024-11-01 10:54 | XMS_ITS | Encounter Summary ---
Author Organization [employer] s tem Address [id number] [address] [place] [address] Care Team Providers Care Chain Maker Loom Control Name Role Phone PrincessArmen Cedric [place] Primary Care Provider [phone] Encounter Details Date Type Department Care Team (Late st Contact Info) Description 08/25/2023 [facility] - [facility] Medicine [address] [place] [address] Bernadette Zhang CMA Social History Tobacco Use Types Packs/Day Years Used Date Smoking Tobacco: Every Day Cigarettes 1 13.3 Started: 08/01/2011 Smokeless Tobacco: Never Alcohol Use Standard Drinks/Week Comments Not Currently 0 (1 standard drink = 0.6 oz pur e alcohol) [facility] Utilities Answer Date Recorded In the past 12 months has [employer], gas, oil, or water company threatened to [...] often do you attend chur ch or presybeterian services? Never 08/25/2023 Do you belong to [...] Answer Date Recorded Total Score 6 08/25/2023 [facility] of Occupat ional Health [...] Recorded Do you need help finding a [facility] career center and/or a training [...] Health Services - Women's Services [address] [place] [phone] Tiffany Easton MD [address] [place] [address] 11/06/2024 11:00 AM EDT Appointment [facility] US Imaging [address] [place] [address] 11/14/2024 3:30 PM EDT Appointment [facility] US Imaging [address] [place] [address] 11/21/2024 2:00 PM EDT Appointment [facility] US Imaging [address] [place] [address] 11/28/2024 11:00 AM EDT Appointment [facility] US Imaging [address] [place] [address] 11/28/2024 11:30 AM EDT Office Visit Maternal- Medicine at [facility] [address] [place] [address] Edil Bullock MD [address] [address] documented as of this encounter Visit Diagnoses Not on filedocumented in this encounter Additional Health Concerns Assessment Noted Time PHQ-9 Depression Total Score: 6 08/25/19 24 9:30 AM EDT A Body Mass Index follow-up plan has been documented for the patient 08/10/2023 10:14 AM EDT documented as of this encounter Care Teams Chain Maker Loom Control Relationship Specialty Start Date End Date Armen Sánchez DO [address], [place] [address] PCP - General Family Medicine 08/25/23 documented as of this encounter
--- OUTSIDE RECORDS SUMMARY | 2024-11-01 10:54 | XMS_ITS | Encounter Summary ---
Author Organization [employer] s tem Address [id number] [address] [place] [address] Care Team Providers Care Education Diagnostician Name Role Phone Armen Sánchez Primary Care Provider Encounter Details Date Type Department Care Team (Late st Contact Info) Description 08/17/2023 Orders Only [facility] Obstetrics/Gynecology [address] [place] [address] La Murray CMA Screening for STD (sexually [...] Info) Description 11/03/2024 1:00 PM EDT Routine [facility] Services - Women's Services [address] [place] [phone] Tiffany Easton MD [address] [place] [address] 11/06/2024 11:00 AM EDT Appointment [facility] US Imaging [address] [place] [address] 11/14/2024 3:30 PM EDT Appointment [facility] US Imaging [address] [place] [address] 11/21/2024 2:00 PM EDT Appointment [facility] US Imaging [address] [place] [address] 11/28/2024 11:00 AM EDT Appointment [facility] US Imaging [address] [place] [address] 11/28/2024 11:30 AM EDT Office Visit Maternal- Medicine at [facility] [address] [place] [address] Edil Bullock MD [address] [address] documented as of this encounter Procedures Procedure [...] ORDERABLES Final Res ult Performing Organization Address [facility] Co de Phone Number SUNQUEST * Syphilis Total(Unknown Syphilis Status) (08/10/2023) QUANTITATIVE RPR Non Reactive SUNQUEST 08/10/2023 Claire Robertson MD LAB BLOOD ORDERABLES Final Res ult Performing Organization Address [facility] de Phone Number SUNQUEST * Hepatitis panel, acute (08/10/2023) Hep A IgM Ab Negative SUNQUEST Hep B Core IgM Ab Negative Negative SUNQUEST Hepatitis B Surface Ag Nonreactive Borderline, Nonreactive SUNQUEST Hepatitis C Ab Negative Negative SUNQUEST 08/10/2023 Claire Robertson MD LAB BLOOD ORDERABLES Final Res ult Performing Organization Address [facility] de Phone Number SUNQUEST documented in this encounter Visit Diagnoses Diagnosis Screening for STD (sexually transmitted disease) documented in this encounter Additional Health Concerns Assessment Noted Time PHQ-9 Depression Total Score: 5 08/10/19 24 9:41 AM EDT A Body Mass Index follow-up plan has been documented for the patient 08/10/2023 10:14 AM EDT documented as of this encounter Care Teams Education Diagnostician Relationship Specialty Start Date End Date Armen Sánchez DO [address] [facility], [place] [address] PCP - General Family Medicine 08/25/23 documented as of this encounter
--- OUTSIDE RECORDS SUMMARY | 2024-11-01 10:54 | XMS_ITS | Encounter Summary ---
Author Organization [facility] Address [address] [place] [address] Care Team Providers Care Records Officer Name Role Phone Armen Sánchez MD Primary Care Provider [phone] Encounter Details Date Type Department Care Team (Late st Contact Info) Description 10/09/2024 Abstract [facility] [address] [place] [address] [place] [phone] Reanna Fernandez MA Social History Tobacco Use [...] on filedocumented in this encounter Care Teams Records Officer Relationship Specialty Start Date End Date Armen Sánchez MD PCP - General Family Medicine 05/05/24 documented as of this encounter
--- OUTSIDE RECORDS SUMMARY | 2024-11-01 10:54 | XMS_ITS | Encounter Summary ---
Author Organization [employer] tem Address [id number] [address] [place] [address] Care Team Providers Care Podiatric Aide Name Role Phone SepidehArmen tristan Cedric [place] Primary Care Provider Encounter Details Date Type Department Care Team (Latest Contact Info) Description 10/30/2024 Travel Social History Tobacco Use Types Packs/Day Years Used Date Smoking Tobacco: Every Day Cigarettes 1 13.3 Started: 08/01/2011 Smokeless Tobacco: Never Alcohol Use Standard Drinks/Week Comments Not Currently 0 (1 standard drink = 0.6 oz pur e alcohol) [facility] Utilities Answer Date Recorded In [...] Answer Date Recorded Total Score 0 10/18/2024 [facility] of Occupat ional Health - Occupational [...] Services - Women's Services [address] [place] [phone] Tiffany Easton MD [address] [place] [address] 11/06/2024 11:00 AM EDT Appointment [facility] US Imaging [address] [place] [address] 11/14/2024 3:30 PM EDT Appointment [facility] US Imaging [address] [place] [address] 11/21/2024 2:00 PM EDT Appointment [facility] US Imaging [address] [place] [address] 11/28/2024 11:00 AM EDT Appointment [facility] US Imaging [address] [place] [address] 11/28/2024 11:30 AM EDT Office Visit Maternal- Medicine at [facility] [address] [place] [address] dEil Bullock MD [address] [address] documented as of this encounter Visit Diagnoses Not on filedocumented in this encounter Additional Health Concerns Assessment Noted Time PHQ-9 Depression Total Score: 0 10/19/19 25 4:00 AM EDT A Body Mass Index follow-up plan has been documented for the patient 08/10/2023 10:14 AM EDT documented as of this encounter Care Teams Podiatric Aide Relationship Specialty Start Date End Date Armen Sánchez DO [address] COUNT INCLUDES [facility], [place] [place] [address] PCP - General Family Medicine 08/25/23 documented as of this encounter
--- OUTSIDE RECORDS SUMMARY | 2024-11-01 10:54 | XMS_ITS | Encounter Summary ---
Author Organization [email or web address] tem Address [id number] [address] [place] [address] Care Team Providers Care Assistant Coach Name Role Phone Armen Sánchez DO Primary Care Provider + [phone] Reason for Referral * Diagnostic Imaging (Routine) - Pending Review Specialty Diagnoses / Procedures Referred By Thom patel Referred To Contact Maternal and Medicine Diagnoses Supervision of high risk in third trimester Cystic fibrosis carrier, antepartum Abnormal genetic test during Maternal care for other (suspected) abnormality and damage, gastrointestinal anomalies, not applicable or unspecified Cystic fibrosis carrier Family history of developmental delay Family history of spina bifida Procedures [facility] with or without consult Angela Perez MD [address] [facility], [address] [place] [address] Phone: tel: fax: Maternal- Medicine at [place] [address] [place] [address] Phone: tel: fax: Referral ID Status Reason Start Date Expiration Date V isits Requested Visits Authorized [id number] Pending Review 10/30/2024 10/30/2025 1 1 * Diagnostic Imaging (Routine) - Pending Review Specialty Diagnoses / Procedures Referred By Thom patel Referred To Contact Maternal and Medicine Diagnoses Supervision of high risk in third trimester Cystic fibrosis carrier, antepartum Abnormal genetic test during Maternal care for other (suspected) abnormality and damage, gastrointestinal anomalies, not applicable or unspecified Cystic fibrosis carrier Family history of developmental delay Family history of spina bifida Procedures [facility] with or without consult Angela Perez MD [address] [address] Phone: tel: fax: Maternal- Medicine at [address] [address] Phone: tel: fax: Referral ID Status Reason Start Date Expiration Date V isits Requested Visits Authorized [id number] Pending Review 10/30/2024 10/30/2025 1 1 * Diagnostic Imaging (Routine) - Pending Review Specialty Diagnoses / Procedures Referred By Thom t Referred To Contact Maternal and Medicine Diagnoses Supervision of high risk in third trimester Cystic fibrosis carrier, antepartum Abnormal genetic test during Maternal care for other (suspected) abnormality and damage, gastrointestinal anomalies, not applicable or unspecified Cystic fibrosis carrier Family history of developmental delay Family history of spina bifida Procedures [facility] with or without consult Angela Perez MD [address] [address] Phone: tel: fax: Maternal- Medicine at [address] [address] Phone: tel: fax: Referral ID Status Reason Start Date Expiration Date V isits Requested Visits Authorized [id number] Pending Review 10/30/2024 10/30/2025 1 1 * Diagnostic Imaging (Routine) - Pending Review Specialty Diagnoses / Procedures Referred By Contrichard t Referred To Contact Maternal and Medicine Diagnoses Supervision of high risk in third trimester Cystic fibrosis carrier, antepartum Abnormal genetic test during Maternal care for other (suspected) abnormality and damage, gastrointestinal anomalies, not applicable or unspecified Cystic fibrosis carrier Family history of developmental delay Family history of spina bifida Procedures US M with or without consult Angela Perez MD [address] [facility], [address] [place] [address] Phone: tel: fax: Maternal- Medicine at [facility] [address] [place] [address] Phone: tel: fax: Referral ID Status Reason Start Date Expiration Date V isits Requested Visits Authorized [id number] Pending Review 10/30/2024 10/30/2025 1 1 Encounter Details Date Type Department Care Team (Late st Contact Info) Description 10/30/2024 Orders Only Maternal- Medicine at [address] [address] Jocy Maradiaga LPN Supervision of high risk in third trimester (Primary Dx); Cystic fibrosis carrier, antepartum; Abnormal genetic test during ; Maternal care for other (suspected) abnormality and damage, gastrointestinal anomalies, not applicable or unspecified; Cystic fibrosis carrier; Family history of developmental delay; Family history of spina bifida Social History Tobacco Use Types Packs/Day Years Used Date Smoking Tobacco: Every Day Cigarettes 1 13.3 Started: 08/01/2011 Smokeless Tobacco: Never Alcohol Use Standard Drinks/Week Comments Not Currently 0 (1 standard drink = 0.6 oz pur e alcohol) [facility] Utilities Answer Date Recorded In the past 12 months has e [employer], gas, oil, or water [employer] threatened to shut off services in your [...] Answer Date Recorded Total Score 0 10/18/2024 [facility] of Occupat ional Health - Occupational Stress [...] Health Services - Women's Services [address] [place] [address] Tiffany Easton MD [address] [facility] [place] [address] 11/06/2024 11:00 AM EDT Appointment [facility] US Imaging [address] [place] [address] 11/14/2024 3:30 PM EDT Appointment [facility] US Imaging [address] [place] [address] 11/21/2024 2:00 PM EDT Appointment [facility] US Imaging [address] [place] [address] 11/28/2024 11:00 AM EDT Appointment [facility] US Imaging [address] [place] [address] 11/28/2024 11:30 AM EDT Office Visit Maternal- Medicine at [facility] [address] [place] [address] Edil Bullock MD [address] [facility], [address] [place] [address] Scheduled Orders Name Type Priority Associated Diagnoses Orde r Schedule [facility] with or without consult Imaging Routine Supervision of high risk in third trimester Cystic fibrosis carrier, antepartum Abnormal genetic test during Maternal care for other (suspected) abnormality and damage, gastrointestinal anomalies, not applicable or unspecified Cystic fibrosis carrier Family history of developmental delay Family history of spina bifida Expected: 10/30/2024, Expires: 10/30/2025 US [facility] with or without consult Imaging Routine Supervision of high risk in third trimester Cystic fibrosis carrier, antepartum Abnormal genetic test during Maternal care for other (suspected) abnormality and damage, gastrointestinal anomalies, not applicable or unspecified Cystic fibrosis carrier Family history of developmental delay Family history of spina bifida Expected: 10/30/2024, Expires: 10/30/2025 [facility] with or without consult Imaging Routine Supervision of high risk in third trimester Cystic fibrosis carrier, antepartum Abnormal genetic test during Maternal care for other (suspected) abnormality and damage, gastrointestinal anomalies, not applicable or unspecified Cystic fibrosis carrier Family history of developmental delay Family history of spina bifida Expected: 10/30/2024, Expires: 10/30/2025 [facility] with or without consult Imaging Routine Supervision of high risk in third trimester Cystic fibrosis carrier, antepartum Abnormal genetic test during Maternal care for other (suspected) abnormality and damage, gastrointestinal anomalies, not applicable or unspecified Cystic fibrosis carrier Family history of developmental delay Family history of spina bifida Expected: 10/30/2024, Expires: 10/30/2025 documented as of this encounter Visit Diagnoses Diagnosis Supervision of high risk in third trimester- Primary Cystic fibrosis carrier, antepartum Abnormal genetic test during Maternal care for other (suspected) abnormality and damage, gastrointestinal anomalies, not applicable or unspecified Cystic fibrosis carrier Family history of developmental delay Family history of spina bifida Family history of congenital anomalies documented in this encounter Additional Health Concerns Assessment Noted Time PHQ-9 Depression Total Score: 0 10/19/19 25 4:00 AM EDT A Body Mass Index follow-up plan has been documented for the patient 08/10/2023 10:14 AM EDT documented as of this encounter Care Teams Assistant Coach Relationship Specialty Start Date End Date Armen Sánchez DO [address], [facility] [place] [address] PCP - General Family Medicine 08/25/23 documented as of this encounter
--- OUTSIDE RECORDS SUMMARY | 2024-11-01 10:54 | XMS_ITS | Encounter Summary ---
Author Organization [employer] tem Address [id number] [address] [place] [address] Care Team Providers Care Osteologist Name Role Phone SepidehArmen tristan Cedric [place] Primary Care Provider Encounter Details Date Type Department Care Team (Latest Contact Info) Description 10/23/2024 Travel Social History Tobacco Use Types Packs/Day Years Used Date Smoking Tobacco: Every Day Cigarettes 1 13.3 Started: 08/01/2011 Smokeless Tobacco: Never Alcohol Use Standard Drinks/Week Comments Not Currently 0 (1 standard drink = 0.6 oz pur e alcohol) [facility] Utilities Answer Date Recorded In the [...] often do you attend chur ch or restoration services? Never 01/27/2024 Do you belong to [...] Answer Date Recorded Total Score 0 10/18/2024 [facility] of Occupat ional Health - [...] Recorded Do you need help finding a [facility] career center and/or a training [...] Health Services - Women's Services [address] [place] [phone] Tiffany Easton MD [address] [place] [address] 11/06/2024 11:00 AM EDT Appointment [facility] US Imaging [address] [place] [address] 11/14/2024 3:30 PM EDT Appointment [facility] US Imaging [address] [place] [address] 11/21/2024 2:00 PM EDT Appointment [facility] US Imaging [address] [place] [address] 11/28/2024 11:00 AM EDT Appointment [facility] US Imaging [address] [place] [address] 11/28/2024 11:30 AM EDT Office Visit Maternal- Medicine at [facility] [address] [place] [address] dEil Bullock MD [address] [address] documented as of this encounter Visit Diagnoses Not on filedocumented in this encounter Additional Health Concerns Assessment Noted Time PHQ-9 Depression Total Score: 0 10/19/19 25 4:00 AM EDT A Body Mass Index follow-up plan has been documented for the patient 08/10/2023 10:14 AM EDT documented as of this encounter Care Teams Osteologist Relationship Specialty Start Date End Date Armen Sánchez DO [address] [facility], [facility] [place] [address] PCP - General Family Medicine 08/25/23 documented as of this encounter
--- OUTSIDE RECORDS SUMMARY | 2024-11-01 10:54 | XMS_ITS | Encounter Summary ---
Author Organization [facility] [employer] Address [facility]-[id number] [address] [place] [address] Care Team Providers Care Head Of Design Name Role Phone PrincessArmen Primary Care Provider Encounter Details Date Type Department Care Team (Late st Contact Info) Description 10/30/2024 Orders Only [facility] Internal Medicine - Family Medicine [address] [place] [address] External, Scanning Provider Social History Tobacco Use Types Packs/Day Years Used Date Smoking Tobacco: Every Day Cigarettes 1 13.3 Started: 08/01/2011 Smokeless Tobacco: Never Alcohol Use Standard Drinks/Week Comments Not Currently 0 (1 standard drink = 0.6 oz pur e alcohol) [facility] Utilities Answer Date Recorded In the past 12 months has [employer] electric, gas, oil, or water company threatened [...] any clubs o r organizations such as hoahaoism groups, unions, fraternal or athletic groups, or [...] Answer Date Recorded Total Score 0 10/18/2024 [facility] of Occupat ional Health - Occupational Stress [...] Health Services - Women's Services [address] [place] [address] Tiffany Easton MD [address] [place] [address] 11/06/2024 11:00 AM EDT Appointment [facility] US Imaging [address] [place] [address] 11/14/2024 3:30 PM EDT Appointment [facility] US Imaging [address] [place] [address] 11/21/2024 2:00 PM EDT Appointment [facility] US Imaging [address] [place] [address] 11/28/2024 11:00 AM EDT Appointment [facility] US Imaging [address] [place] [address] 11/28/2024 11:30 AM EDT Office Visit Maternal- Medicine at [facility] [address] [place] [address] Edil Bullock MD [address], [address] [place] [address] documented as of this encounter Procedures Procedure Name Priority Date/Time Associated Diagnosis Comments US TRANSVAGINAL PREG Routine 09/14/2024 10:15 AM EDT documented in this encounter Results * Ultrasound transvaginal preg (09/14/2024 10:15 AM EDT) Anatomical Region Laterality Modality Body Ultrasound us Scanning Provider External IMG US ORDERABLES Fin al Result documented in this encounter Visit Diagnoses Not on filedocumented in this encounter Additional Health Concerns Assessment Noted Time PHQ-9 Depression Total Score: 0 10/19/19 25 4:00 AM EDT A Body Mass Index follow-up plan has been documented for the patient 08/10/2023 10:14 AM EDT documented as of this encounter Care Teams Head Of Design Relationship Specialty Start Date End Date Armen Sánchez DO [address] [facility], [place] [address] PCP - General Family Medicine 08/25/23 documented as of this encounter
--- OUTSIDE RECORDS SUMMARY | 2024-11-01 10:54 | XMS_ITS | Encounter Summary ---
Author Organization [facility] Address [address] [place] [address] Care Team Providers Care Demolition Hammer Operator Name Role Phone Armen Sánchez MD Primary Care Provider Encounter Details Date Type Department Care Team (Late st Contact Info) Description 10/03/2024 Abstract [facility] [address] [facility] [place] [address] Curtis Paez DO [address] [facility] [address] [place], [place] [id number] Social History Tobacco Use Types Packs/Day Years [...] on filedocumented in this encounter Care Teams Demolition Hammer Operator Relationship Specialty Start Date End Date Armen Sánchez MD PCP - General Family Medicine 05/05/24 documented as of this encounter
--- OUTSIDE RECORDS SUMMARY | 2024-11-01 10:55 | XMS_ITS | Encounter Summary ---
Author Organization [facility] Address [address] [address] Care Team Providers Care Bridge Repairer Name Role Phone Emi Bronsno [facility] Unavailable + [phone] Armen Sánchez MD Primary Care Provider + [phone] Encounter Details Date Type Department Care Team (Late st Contact Info) Description 05/09/2024 Abstract [facility] [address] [place] [phone] Curtis Paez DO [address] [facility] [place] [address] Social History Tobacco Use Types Packs/Day Years [...] on filedocumented in this encounter Care Teams Bridge Repairer Relationship Specialty Start Date End Date Armen Sánchez MD [address] [place] [address] PCP - General Family Medicine 05/05/24 Emi Bronson [facility] [address] [place] [address] Behavioral Health 04/12/24 09/26/24 documented as of this encounter
--- OUTSIDE RECORDS SUMMARY | 2024-11-01 10:55 | XMS_ITS | Encounter Summary ---
Author Organization [facility] [employer] s tem Address [id number] [address] [place] [address] Care Team Providers Care Rn Progressive Care Name Role Phone MasoodArmen silverman Primary Care Provider Encounter Details Date Type Department Care Team (Late st Contact Info) Description 10/25/2024 Orders Only [facility] Internal Medicine - Family Medicine [address] [place] [address] Ref Prov, [place] [address] Social History Tobacco Use Types Packs/Day Years Used Date Smoking Tobacco: Every Day Cigarettes 1 13.3 Started: 08/01/2011 Smokeless Tobacco: Never Alcohol Use Standard Drinks/Week Comments Not Currently 0 (1 standard drink = 0.6 oz pur e alcohol) [facility] Utilities Answer Date Recorded In the past 12 months has [employer], gas, oil, or water company threatened to [...] Answer Date Recorded Total Score 0 10/18/2024 [facility] - [...] Recorded Do you need help finding a [facility] medical centeral career center and/or a training [...] Health Services - Women's Services [address] [place] [address] Tiffany Easton MD [address] [place] [address] 11/06/2024 11:00 AM EDT Appointment [facility] US Imaging [address] [place] [address] 11/14/2024 3:30 PM EDT Appointment [facility] US Imaging [address] [place] [address] 11/21/2024 2:00 PM EDT Appointment [facility] US Imaging [address] [place] [address] 11/28/2024 11:00 AM EDT Appointment [facility] US Imaging [address] [place] [address] 11/28/2024 11:30 AM EDT Office Visit Maternal- Medicine at [facility] [address] [place] [address] Edil Bullock MD [address] [facility], [address] [place] [address] documented as of this encounter Procedures Procedure [...] documented as of this encounter Care Teams Rn Progressive Care Relationship Specialty Start Date End Date Armen Sánchez DO [address] [facility], [place] [address] PCP - General Family Medicine 08/25/23 documented as of this encounter
--- OUTSIDE RECORDS SUMMARY | 2024-11-01 10:55 | XMS_ITS | Encounter Summary ---
Author Organization [facility] [employer] s tem Address [id number] [address] [place] [address] Care Team Providers Care Bow Machine Operator Name Role Phone MasoodArmen silverman Primary Care Provider Encounter Details Date Type Department Care Team (Late st Contact Info) Description 07/19/2024 Orders Only [facility] Internal Medicine - Family Medicine [address] [place] [address] Ref Prov, [place] [address] Social History Tobacco Use Types Packs/Day Years Used Date Smoking Tobacco: Every Day Cigarettes 1 13.3 Started: 08/01/2011 Smokeless Tobacco: Never Alcohol Use Standard Drinks/Week Comments Not Currently 0 (1 standard drink = 0.6 oz pur e alcohol) [facility] Utilities Answer Date Recorded In the past 12 months has [employer], gas, oil, or water company threatened to [...] Answer Date Recorded Total Score 0 10/27/2023 [facility] Occupat ional Health [...] Recorded Do you need help finding a [facility] cent[facility] career center and/or a [...] Health Services - Women's Services [address] [place] [address] Tiffany Easton MD [address] [place] [address] 11/06/2024 11:00 AM EDT Appointment [facility] US Imaging [address] [place] [address] 11/14/2024 3:30 PM EDT Appointment [facility] US Imaging [address] [place] [address] 11/21/2024 2:00 PM EDT Appointment [facility] US Imaging [address] [place] [address] 11/28/2024 11:00 AM EDT Appointment [facility] US Imaging [address] [place] [address] 11/28/2024 11:30 AM EDT Office Visit Maternal- Medicine at [facility] [address] [place] [address] Edil Bullock MD [address] [facility], [address] [place] [address] documented as of this encounter Procedures Procedure [...] documented as of this encounter Care Teams Bow Machine Operator Relationship Specialty Start Date End Date Armen Sánchez DO [address] [facility], [place] [address] PCP - General Family Medicine 08/25/23 documented as of this encounter
--- OUTSIDE RECORDS SUMMARY | 2024-11-01 10:55 | XMS_ITS | Encounter Summary ---
Author Organization [facility] tem Address [facility] [id number] [address] [place] [address] Care Team Providers Care Cook Boat Name Role Phone Princess Armen Steele DO Primary Care Provider [phone] Encounter Details Date Type Department Care Team (Late st Contact Info) Description 06/16/2024 Orders Only Maternal- Medicine at [facility] [address] [place] [address] Curtis Paez, DO [address] [facility] [place] [address] Social History Tobacco Use Types Packs/Day Years Used Date Smoking Tobacco: Every Day Cigarettes 1 13.3 Started: 08/01/2011 Smokeless Tobacco: Never Alcohol Use Standard Drinks/Week Comments Not Currently 0 (1 standard drink = 0.6 oz pur e alcohol) [facility] Utilities Answer Date Recorded In the past 12 months has [employer], gas, oil, or water [employer] threatened to shut off services in your home? No 08/25/2023 Social Connection and Isolation Panel [NHANES] A nswer Date Recorded In a typical week, how many times do you talk on the phone with family, friends, or neighbors? Three times a week 01/27/2024 How often do you get togethe r with friends or relatives? Once a week 01/27/2024 How often do you attend [facility] or mandaeism services? Never 01/27/2024 Do you belong to [...] Answer Date Recorded Total Score 0 10/27/2023 [facility] Occupat ional Health - [...] Health Services - Women's Services [address] [place] [address] Tiffany Easton MD [address] [place] [address] 11/06/2024 11:00 AM EDT Appointment [facility] US Imaging [address] [place] [address] 11/14/2024 3:30 PM EDT Appointment [facility] US Imaging [address] [place] [address] 11/21/2024 2:00 PM EDT Appointment [facility] US Imaging [address] [place] [address] 11/28/2024 11:00 AM EDT Appointment [facility] US Imaging [address] [place] [address] 11/28/2024 11:30 AM EDT Office Visit Maternal- Medicine at [facility] [address] [place] [address] Edil Bullock MD [address], [address] [place] [address] documented as of this encounter Procedures Procedure Name Priority Date/Time Associated Diagnosis Comments UNLISTED LAB TEST Routine 06/08/2024 1:25 PM EST UNLISTED LAB TEST Routine 05/23/2024 1:26 PM EST documented in this encounter Results * Unlisted Lab Test (06/08/2024 1:25 PM EST) us Curtis R Jeannine DO LAB BLOOD ORDERABLES Final Resu lt Performing Organization Address [facility] Co de Phone Number MANUALLY TRANSCRIBED RESULTS * Unlisted Lab Test (05/23/2024 1:26 PM EST) us Curtis R Jeannine DO LAB BLOOD ORDERABLES Final Resu lt Performing Organization Address [facility]/ZIP Co de Phone Number MANUALLY TRANSCRIBED RESULTS documented in this encounter Visit Diagnoses Not on filedocumented in this encounter Additional Health Concerns Assessment Noted Time PHQ-9 Depression Total Score: 0 10/27/19 10:25 AM EDT A Body Mass Index follow-up plan has been documented for the patient 08/10/2023 10:14 AM EDT documented as of this encounter Care Teams Cook Boat Relationship Specialty Start Date End Date Armen Sánchez DO [address] [facility], [place] [address] PCP - General Family Medicine 08/25/23 documented as of this encounter
--- OUTSIDE RECORDS SUMMARY | 2024-11-01 10:55 | XMS_ITS | Encounter Summary ---
Author Organization [facility] Address [address] [place] [address] Care Team Providers Care Roller Skate Assembler Name Role Phone Armen Sánchez MD Primary Care Provider [phone] Encounter Details Date Type Department Care Team (Late st Contact Info) Description 10/19/2024 Clinisync Result Encounter [facility] External Department Unsolicited Magan Paez, DO [address] [facility] [address] [place], [place] [address] Social History Tobacco Use Types Packs/Day Years [...] AM EDT Narrative 10/19/2024 11:30 [place] [address] Ultrasound Report Signed Patient: SAPNA SERRANO MR#: [id number] : 1995 Acct:[id number] Age/Sex: 29 / F ADM Date: 10/19/24 Loc: [facility] 250-[address]: Magan Paez D.O. Ordering Physician: Magan Paez D.O. Date of Service: 10/19/24 Procedure(s): US OB BPP w non-stress Accession Number(s): [id number] cc: ARMEN SÁNCHEZ ; Magan Paez D.O. [address] [address] Patient Name: SAPNA SERRANO MRN: [facility]:[id number] date: 1995 Sex: F Assigned Patient Location: Current Patient Location: US Accession/Order Number: [id number] Exam Date: 10/19/2024 11:25 Report Date: 10/19/2024 [...] Rahman M.D. 10/19/2024 11:27 AM Dictation Location: [place] [address] Electronically authenticated by: [id number] Y Date: 10/19/2024 11:27 Dictated By: Laura Rahman M.D. Signed By: 10/19/24 1130 DD/ 1127 TD/TT: Case Manager Specialist: Procedure Note Radiology, Radiologist, MD - 10/19/2024 [place] [address] Ultrasound Report Signed Patient: SAPNA SERRANO KMR#: [id number] : 1995Acct:[id number] Age/Sex: 29 / FADM Date: 10/19/24 Loc: [facility] 250-[address]: Magan Paez D.O. Ordering Physician: Magan Paez D.O. Date of Service: 10/19/24 Procedure(s): US OB BPP w non-stress Accession Number(s): [id number] cc: ARMEN SÁNCHEZ ; Magan Paez D.O. [place] [address] Patient Name: SAPNA SERRANO MRN: [id number] date: 1995 Sex: F Assigned Patient Location: Current Patient Location: US Accession/Order Number: [id number] Exam Date: 10/19/2024 11:25 Report Date: 10/19/2024 [...] Rahman M.D. 10/19/2024 11:27 AM Dictation Location: [place] [address] Electronically authenticated by: [id number] Y Date: 1:27 Dictated By: Laura Rahman M.D. Signed By:10/19/24 1130 DD/ 1127 TD/TT: Case Manager Specialist: us Magan Jeannine DO [facility] Final Result documented in this encounter Visit Diagnoses Not on filedocumented in this encounter Care Teams Roller Skate Assembler Relationship Specialty Start Date End Date Armen Sánchez MD PCP - General Family Medicine 05/05/24 documented as of this encounter
--- OUTSIDE RECORDS SUMMARY | 2024-11-01 10:55 | XMS_ITS | Encounter Summary ---
Author Organization [facility] Address [address] [place] [address] Care Team Providers Care Commissioning Agent Name Role Phone Emi Bronson [facility] Unavailable + [phone] Armen Sánchez MD Primary Care Provider + [phone] Encounter Details Date Type Department Care Team (Late st Contact Info) Description 08/10/2023 Abstract [facility] [address] [facility] [place] [address] Curtis Paez DO [address] [facility] [address] [place], [place] [phone] Social History Tobacco Use Types Packs/Day Years [...] on filedocumented in this encounter Care Teams Commissioning Agent Relationship Specialty Start Date End Date Armen Sánchez MD [address] [facility] [address] [place] [address] PCP - General Family Medicine 05/05/24 Emi Bronson, [facility] [address] [facility] [address] [place] [address] Behavioral Health 04/12/24 09/26/24 documented as of this encounter
--- OUTSIDE RECORDS SUMMARY | 2024-11-01 10:55 | XMS_ITS | Encounter Summary ---
Author Organization [facility] Address [address] [facility] [address] [place] [address] Care Team Providers Care Field Artillery Operations Man Name Role Phone Emi Bronson [facility] Unavailable + [phone] Armen Sánchez MD Primary Care Provider + [phone] Encounter Details Date Type Department Care Team (Late st Contact Info) Description 05/24/2024 Abstract [facility] [address] [facility] [place] [address] Curtis Paez DO [address] [facility] [place] [address] Social History Tobacco Use Types Packs/Day Years [...] filedocumented in this encounter Care Teams Field Artillery Operations Man Relationship Specialty Start Date End Date Armen Sánchez MD [address] [place] [address] PCP - General Family Medicine 05/05/24 Emi Bronson [facility] [address] [place] [address] Behavioral Health 04/12/24 09/26/24 documented as of this encounter
--- OUTSIDE RECORDS SUMMARY | 2024-11-01 10:55 | XMS_ITS | Encounter Summary ---
Author Organization [facility] Address [address] [place] [address] Care Team Providers Care Boomboat Operator Name Role Phone Armen Sánchez MD Primary Care Provider Encounter Details Date Type Department Care Team (Late st Contact Info) Description 10/26/2024 Clinisync Result Encounter [facility] External Department Unsolicited Magan Paez, DO [address] [facility] [address] [place], [place] [phone] Social History Tobacco Use Types Packs/Day Years [...] Diagnosis Comments US OB BPP W NON-STRESS 10/26/2024 4:52 PM EDT documented in this encounter Results * US OB BPP W NON-STRESS (10/26/2024 4:52 PM EDT) Anatomical Region Laterality Modality Other 10/26/2024 4:52 PM EDT Narrative 10/26/2024 4:55 [place] [address] Ultrasound Report Signed Patient: SAPNA SERRANO MR#: [id number] : 1995 Acct:[id number] Age/Sex: 29 / F ADM Date: 10/26/24 Loc: [facility] 255-[address]: Magan Paez D.O. Ordering Physician: Magan Paez D.O. Date of Service: 10/26/24 Procedure(s): US OB BPP w non-stress Accession Number(s): [id number] cc: ARMEN SÁNCHEZ ; Magan Paez D.O. [place] [address] Patient Name: SAPNA SERRANO MRN: [facility]:[id number] date: 1995 Sex: F Assigned Patient Location: [facility] Current Patient Location: [facility] Accession/Order Number: [id number] Exam Date: 10/26/2024 16:51 Report Date: 10/26/2024 16:52 At the request of: MAGAN PAEZ DO Procedure: US OB BPP w non-stress Biophysical profile. Reason for exam: Cystic fibrosis COMPARISON: None TECHNIQUE: Transabdominal imaging of the gravid uterus was obtained. FINDINGS: The combat information center officer reports a BPP of 8 out of 8. NAYE is normal at 17.6 cm. heart rate 150 bpm. US/US OB BPP w non-stress IMPRESSION: BPP 8 out of 8. Impression dictated by: Hugo Atkins Jr., D.O. 10/26/2024 4:52 PM Dictation Location: [place] [address] Electronically authenticated by: [id number] Y Date: 10/26/2024 16:52 Dictated By: Hugo Atkins M.D. Signed By: 10/26/241654 DD/ 51 TD/TT: Owner: Procedure Note Radiology, Radiologist, MD - 10/27/2024 The [place] [id number] Ultrasound Report Signed Patient: SAPNA SERRANO KMR#: [id number] : 1995Acct:[id number] Age/Sex: 29 / FADM Date: 10/26/24 Loc: [facility] 255-[address]: Magan Paez D.O. Ordering Physician: Magan Paez D.O. Date of Service: 10/26/24 Procedure(s): US OB BPP w non-stress Accession Number(s): [id number] cc: ARMEN SÁNCHEZ ; Magan Paez D.O. The [place] [id number] Patient Name: SAPNA SERRANO MRN: [id number] date: 1995 Sex: F Assigned Patient Location: [facility] Current Patient Location: [facility] Accession/Order Number: [id number] Exam Date: 10/26/2024 16:51 Report Date: 10/26/2024 16:52 At the request of: MAGAN PAEZ DO Procedure: US OB BPP w non-stress Biophysical profile. Reason for exam: Cystic fibrosis COMPARISON: None TECHNIQUE: Transabdominal imaging of the gravid uterus was obtained. FINDINGS: The combat information center officer reports a BPP of 8 out of 8. NAYE is normal at17.6 cm. heart rate 150 bpm. US/US OB BPP w non-stress IMPRESSION: BPP 8 out of 8. Impression dictated by: Hugo Atkins Jr., D.O. 10/26/2024 4:52 PM Dictation Location: [place] [address] Electronically authenticated by: [id number] Y Date: 6:52 Dictated By: Hugo Atkins M.D. Signed By:10/26/241654 DD/ 51 TD/TT: Owner: us Magan Paez DO [facility] Final Result documented in this encounter Visit Diagnoses Not on filedocumented in this encounter Care Teams Boomboat Operator Relationship Specialty Start Date End Date Armen Sánchez MD PCP - General Family Medicine 05/05/24 documented as of this encounter
--- OUTSIDE RECORDS SUMMARY | 2024-11-01 10:55 | XMS_ITS | Encounter Summary ---
Author Organization [facility] [employer] s tem Address [id number] [address] [place] [address] Care Team Providers Care Ecommerce Manager Name Role Phone MasoodArmen silverman Primary Care Provider Encounter Details Date Type Department Care Team (Late st Contact Info) Description 05/01/2024 Orders Only [facility] Internal Medicine - Family Medicine [address] [place] [address] Ref Prov, [place] [address] Social History Tobacco Use Types Packs/Day Years Used Date Smoking Tobacco: Every Day Cigarettes 1 13.3 Started: 08/01/2011 Smokeless Tobacco: Never Alcohol Use Standard Drinks/Week Comments Not Currently 0 (1 standard drink = 0.6 oz pur e alcohol) [facility] Utilities Answer Date Recorded In the past 12 months has [employer], gas, oil, or water company threatened to [...] often do you attend chur ch or spiritism services? Never 01/27/2024 Do you belong to any clubs o r organizations such as orthodoxy groups, unions, fraternal or athletic groups, or [...] Answer Date Recorded Total Score 0 10/27/2023 [facility] of Occupat ional Health - [...] Do you need help finding a [facility] career center and/or a training program? [...] Health Services - Women's Services [address] [place] [address] Tiffany Easton MD [address] [place] [address] 11/06/2024 11:00 AM EDT Appointment [facility] US Imaging [address] [place] [address] 11/14/2024 3:30 PM EDT Appointment [facility] US Imaging [address] [place] [address] 11/21/2024 2:00 PM EDT Appointment [facility] US Imaging [address] [place] [address] 11/28/2024 11:00 AM EDT Appointment [facility] US Imaging [address] [place] [address] 11/28/2024 11:30 AM EDT Office Visit Maternal- Medicine at [facility] [address] [facility] [place] [address] Edil Bullock MD [address] [facility] [address] [address] documented as of this encounter Procedures Procedure [...] documented as of this encounter Care Teams Ecommerce Manager Relationship Specialty Start Date End Date Armen Sánchez DO [address] [place] [address] PCP - General Family Medicine 08/25/23 documented as of this encounter
--- OUTSIDE RECORDS SUMMARY | 2024-11-01 10:55 | XMS_ITS | Encounter Summary ---
Author Organization [facility] Address [address] [place] [address] Care Team Providers Care Receiving Checker Name Role Phone Emi Bronson [facility] Unavailable + [phone] Armen Sánchez MD Primary Care Provider + [phone] Encounter Details Date Type Department Care Team (Late st Contact Info) Description 12/27/2023 [facility] [address] [facility] [place] [address] Emi Bronson, [facility] [address] [facility] [address] [place] [address] Social History Tobacco Use Types Packs/Day Years [...] on filedocumented in this encounter Care Teams Receiving Checker Relationship Specialty Start Date End Date Armen Sánchez MD [address] [facility] [address] [place] [address] PCP - General Family Medicine 05/05/24 Emi Bronson [facility] [address] [facility] [address] [place] [phone] Behavioral Health 04/12/24 09/26/24 documented as of this encounter
--- OUTSIDE RECORDS SUMMARY | 2024-11-01 10:55 | XMS_ITS | Encounter Summary ---
Author Organization [employer] tem Address [id number] [address] [place] [address] Care Team Providers Care Technical Planner Name Role Phone SepidehArmen tristan Cedric [place] Primary Care Provider Encounter Details Date Type Department Care Team (Latest Contact Info) Description 10/18/2024 Travel Social History Tobacco Use Types Packs/Day Years Used Date Smoking Tobacco: Every Day Cigarettes 1 13.3 Started: 08/01/2011 Smokeless Tobacco: Never Alcohol Use Standard Drinks/Week Comments Not Currently 0 (1 standard drink = 0.6 oz pur e alcohol) [facility] Utilities Answer Date Recorded In [...] Answer Date Recorded Total Score 0 10/18/2024 [facility] [...] Health Services - Women's Services [address] [place] [phone] Tiffany Easton MD [address] [place] [address] 11/06/2024 11:00 AM EDT Appointment [facility] US Imaging [address] [place] [phone] 11/14/2024 3:30 PM EDT Appointment [facility] US Imaging [address] [place] [address] 11/21/2024 2:00 PM EDT Appointment [facility] US Imaging [address] [place] [address] 11/28/2024 11:00 AM EDT Appointment [facility] US Imaging [address] [place] [address] 11/28/2024 11:30 AM EDT Office Visit Maternal- Medicine at [facility] [address] [place] [address] Edil Bullock MD [address] [address] documented as of this encounter Visit Diagnoses Not on filedocumented in this encounter Additional Health Concerns Assessment Noted Time PHQ-9 Depression Total Score: 0 10/19/19 25 4:00 AM EDT A Body Mass Index follow-up plan has been documented for the patient 08/10/2023 10:14 AM EDT documented as of this encounter Care Teams Technical Planner Relationship Specialty Start Date End Date Armen Sánchez DO [address] [facility] [place] [address] PCP - General Family Medicine 08/25/23 documented as of this encounter
--- OUTSIDE RECORDS SUMMARY | 2024-11-01 10:55 | XMS_ITS | Clinical Summary ---
Author Organization [employer] Address [id number] [address] [place] [address] Care Team Providers Care Carpenter Assembler Name Role Phone MasoodArmen silverman Primary Care Provider Allergies Active Allergy Reactions Criticality Noted Date Comments Penicillins Other (See Comments) 08/10/2023 Yeast infections Medications FLUoxetine (PROzac) 20 mg capsule Take 1 capsule (20 mg total) by mouth in the morning. 30 capsule 3 Active Additional Information Patient not taking.Reported on 10/30/2024 magnesium oxide (MAGOX) 400 mg tablet Take [...] Consult: []Palliative Care Consult: []SGM: []Life Connection: [][place]: [] MRI: []Nationwide: []UofM: []UH: [x]JO CHS: per Office Delivery Recommendation: [] Term at local hospital [x] Term at [facility] Surveillance Plan: [x] F/U Survey sched 08/25/[address] [facility] [x] Growth q _4_ weeks Sched 10/30/24 [...] Encounters Date Type Department Care Team Description 10/30/2024 11:30 AM EDT Office Visit Maternal- Medicine at [facility] [address] [place] [phone] Angela Perez MD Cystic fibrosis carrier, antepartum (Primary Dx); Maternal care for other (suspected) abnormality and damage, gastrointestinal anomalies, not applicable or unspecified; Overweight 10/30/2024 10:43 AM EDT - 10/30/2024 11:59 PM EDT Hospital Encounter [facility] US Imaging [address] [place] [address] Abnormal genetic test during ; Maternal care for other (suspected) abnormality and damage, gastrointestinal anomalies, not applicable or unspecified; Cystic fibrosis carrier Discharge Disposition: Home 10/30/2024 Orders Only Maternal- Medicine at [place] [address] [place] [address] Jocy Maradiaga LPN Supervision of high risk in third trimester (Primary Dx); Cystic fibrosis carrier, antepartum; Abnormal genetic test during ; Maternal care for other (suspected) abnormality and damage, gastrointestinal anomalies, not applicable or unspecified; Cystic fibrosis carrier; Family history of developmental delay; Family history of spina bifida 10/30/2024 Travel 10/30/2024 Orders Only [facility] Internal Medicine - Family Medicine [address] [place] [address] External, Scanning Provider 10/25/2024 Orders Only [facility] Internal Medicine - Family Medicine [address] [place] [address] Ref Prov, Not In System 10/24/2024 Telephone Maternal- Medicine at [facility] [address] [place] [address] Suresh Valencia MD 10/23/2024 1:45 PM EDT Support Visit Maternal- Medicine at [facility] [address] [place] [address] Cystic fibrosis carrier, antepartum (Primary Dx); Supervision of high risk in third trimester; Overweight 10/23/2024 12:53 PM EDT - 10/23/2024 11:59 PM EDT Hospital Encounter [facility] US Imaging [address] [facility] [place] [address] Abnormal genetic test during ; Maternal care for other (suspected) abnormality and damage, gastrointestinal anomalies, not applicable or unspecified; Cystic fibrosis carrier Discharge Disposition: Home 10/23/2024 Travel 10/19/2024 3:14 PM EDT - 10/19/2024 11:59 PM EDT Hospital Encounter [facility] US Imaging [address] [place] [address] Abnormal genetic test during ; Maternal care for other (suspected) abnormality and damage, gastrointestinal anomalies, not applicable or unspecified; Cystic fibrosis carrier Discharge Disposition: Home 10/19/2024 2:00 PM EDT [facility] [address] [place] [address] Rain Bond DO GA: 32w2d 10/18/2024 Travel 10/17/2024 Telephone [facility] Internal Medicine - Family Medicine [address] [place] [address] Bernadette Zhang [facility] 10/13/2024 Orders Only Maternal- Medicine at [facility] [address] [facility] [place] [address] Miriam Joseph, RN Abnormal genetic test during (Primary Dx); Maternal care for other (suspected) abnormality and damage, gastrointestinal anomalies, not applicable or unspecified; Cystic fibrosis carrier 10/12/2024 3:05 PM EDT - 10/12/2024 11:59 PM EDT Hospital Encounter [facility] US Imaging [address] [place] [address] Obesity in , antepartum; Supervision of high risk , antepartum Discharge Disposition: Home 10/11/2024 Travel 10/10/2024 [facility] Women's Services [address] [facility] [place] [address] Lyric Sánchez RN 10/05/2024 3:13 PM EDT - 10/05/2024 11:59 PM EDT Hospital Encounter [facility] US Imaging [address] [facility] [place] [address] Supervision of high risk , antepartum; Obesity in , antepartum Discharge Disposition: Home 10/05/2024 Travel 09/29/2024 4:25 PM EDT Office Visit Maternal- Medicine at [facility] [address] [facility] [place] [address] Edil Bullock MD 29 weeks gestation of (Primary Dx); Cystic fibrosis carrier; Maternal care for other (suspected) abnormality and damage, gastrointestinal anomalies, not applicable or unspecified 09/29/2024 2:41 PM EDT - 09/29/2024 11:59 PM EDT Hospital Encounter [facility] US Imaging [address] [place] [address] Suresh Valencia MD Cystic fibrosis carrier; Abnormal genetic test during Discharge Disposition: Home 09/29/2024 Travel 09/25/2024 Orders Only Maternal- Medicine at [facility] [address] [facility] [place] [address] Ref Prov, Not In System 09/15/2024 Telephone Maternal- Medicine at [facility] [address] [place] [address] Miriam Joseph RN 09/07/2024 10:30 AM EDT Office Visit [address] [place] [phone] Rashida Silva MD 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); Encounter for consultation 09/07/2024 Orders Only Maternal- Medicine at [facility] [address] [place] [address] Miriam Joseph RN 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); Abnormal genetic test during 09/05/2024 Travel 08/25/2024 Travel 08/18/2024 Orders Only Maternal- Medicine at [facility] [address] [place] [address] Barbra Samuel RN 08/18/2024 Orders Only Maternal- Medicine at [facility] [address] [place] [address] Barbra Samuel RN 08/17/2024 Telephone Maternal- Medicine at [facility] [address] [place] [address] Rachel Rodriguez LGC from Last 3 Months [...] 1 13.3 Started: 08/01/2011 Smokeless Tobacco: Never Tobacco Cessation:Ready to Q uit: Not Asked; Counseling Given: Not Answered Alcohol Use Standard Drinks/Week Comments Not Currently 0 (1 standard drink = 0.6 oz pur e alcohol) [facility] Utilities Answer Date Recorded In [...] Answer Date Recorded Total Score 0 10/18/2024 [facility] of Occupat ional Health - Occupational Stress [...] Recorded Do you need help finding a [facility] career center and/or a training program? [...] Pulse 91 10/30/2024 11:15 AM EDT Temperature 36.5 C (97.7 F) 01/27/2024 9:54 AM EDT Respiratory Rate 18 01/27/2024 9:54 AM EDT Oxygen Saturation 99% 01/27/2024 9:54 AM EDT Inhaled Oxygen Concentration - - Weight 98.2 kg (216 lb 6.4 oz) 10/30/2024 11:15 AM EDT Height 162.6 cm (5' 4.02 ) 10/30/2024 11:15 AM E DT Body Mass Index 37.13 10/30/2024 11:15 AM EDT Plan of Treatment Upcoming Encounters Date Type Department Care Team (Late st Contact Info) Description 11/03/2024 1:00 PM EDT [facility] [address] [place] [address] Tiffany Easton MD [address] [facility] [place] [address] 11/06/2024 11:00 AM EDT Appointment [facility] US Imaging [address] [facility] [facility] [place] [address] 11/14/2024 3:30 PM EDT Appointment [facility] US Imaging [address] [place] [address] 11/21/2024 2:00 PM EDT Appointment [facility] US Imaging [address] [place] [address] 11/28/2024 11:00 AM EDT Appointment [facility] US Imaging [address] [place] [address] 11/28/2024 11:30 AM EDT Office Visit Maternal- Medicine at [facility] [address] [place] [address] Edil Bullock MD [address] [facility] [address] [address] Health Maintenance Due Date Last Done Comments Adult BMI Follow Up Plan 08/09/2024 08/10/2023 Influenza Vaccine 12/04/2024 Tobacco Counseling 02/24/2025 08/25/2023 Depression Screening 10/18/2025 10/18/2024 Adult BMI Screening 10/30/2025 10/30/2024 Tobacco Screening 10/30/2025 10/30/2024 Pap Smear 07/07/2027 07/06/2024, 0406/2024, 07/06/2024, Additional history exists DTaP,Tdap and Td Vaccines (2 - Td or Tdap) 08/16/2028 08/16/2018 Medical Devices Not on file Procedures Procedure Name Priority Date/Time Associated Diagnosis Comments US MFM OB FOLLOW-UP, 1 FETUS Routine 10/30/2024 12:14 PM EDT Abnormal genetic test during Maternal care for other (suspected) abnormality and damage, gastrointestinal anomalies, not applicable or unspecified Cystic fibrosis carrier NONSTRESS TEST Routine 10/24/2024 4:16 PM EDT Supervision of high risk in third trimester US MFM LMTD OB, 1 OR MORE FETUS Routine 10/23/2024 1:31 PM EDT Abnormal genetic test during Maternal care for other (suspected) abnormality and damage, gastrointestinal anomalies, not applicable or unspecified Cystic fibrosis carrier US MFM AMNIOTIC FLUID VOLUME ASSESSMENT Routine 10/19/2024 3:42 PM EDT Abnormal genetic test during Maternal care for other (suspected) abnormality and damage, gastrointestinal anomalies, not applicable or unspecified Cystic fibrosis carrier US MFM AMNIOTIC FLUID VOLUME ASSESSMENT Routine 10/12/2024 4:46 PM EDT Obesity in , antepartum Supervision of high risk , antepartum US MFM LMTD OB, 1 OR MORE FETUS Routine 10/05/2024 4:29 PM EDT Supervision of high risk , antepartum Obesity in , antepartum US MFM OB FOLLOW-UP, 1 FETUS Routine 09/29/2024 4:32 PM EDT Cystic fibrosis carrier Abnormal genetic test during US PREG LMTD 1 OR MORE FETUS Routine 09/25/2024 8:28 AM EDT US PELVIC WITH TRANSVAGINAL Routine 09/14/2024 2:22 PM EDT US TRANSVAGINAL PREG Routine 09/14/2024 10:15 AM EDT GLUCOSE TOLERANCE, 1 HOUR Routine 08/30/2024 CBC (NO DIFF) Routine 08/30/2024 US MFM OB FOLLOW-UP, 1 FETUS Routine 08/25/2024 10:25 AM EDT Cystic fibrosis carrier Abnormal genetic test during HIGH RISK HPV W/FAUSTINA Routine 07/06/2024 from Last 3 Months or Most Recently Relevant to Health Maintenance Results * US [facility] OB FOLLOW-UP, 1 FETUS (10/30/2024 12:14 PM EDT) Only the most recent of7 resultswithin the time period is included. Anatomical Region Laterality Modality OB-DIRECTOR RETIREMENT Ultrasound 10/30/2024 11:3 6 AM EDT Narrative 10/30/2024 2:34 PM EDT NAME: JEREMY BORDEN : 1995 SEX: F Accession Number: [id number] ORDERING PHYSICIAN: BRIONNA SANABRIA REFERRING PHYSICIAN: MAGAN TRISTAN Coding ----- --------- Procedures [id number]: Follow-up Ultrasound, per fetus Indication ----- --------- Abnormal finding on screening of mother-MOB + FOB CF carriers, Depression, Anxiety , Supervision of high risk , recent trauma to abdomen , prominent bowel , cystic fibrosis History ----- --------- OB History 1. Para 0 [id number] Current ----- --------- Cell free DNA low [...] EFW (oz) 13 oz EFW by: Hadlock ([id number]) Extended Tibia 55.5 mm 32w 5d 31% Dank Shell Grader 2.5 mm CM 8.1 mm 69% Nicolaides [...] BORDEN : 1995 SEX: F Accession Number: [id number] ORDERING PHYSICIAN: BRIONNA SANABRIA REFERRING PHYSICIAN: MAGAN TRISTAN Coding ----- --------- Procedures [id number]: Follow-up Ultrasound, per fetus Indication ----- --------- Abnormal finding on screening of mother-MOB + FOB CF carriers,Depression, Anxiety , Supervision of high risk , recent trauma to abdomen , prominent bowel , cysticfibrosis History ----- --------- OB History 1. Para 0 [id number] Current ----- --------- Cell free DNA low [...] EFW (oz) 13 oz EFW by: Hadlock ([id number]) Extended Tibia 55.5 mm 32w 5d 31% Dank Shell Grader 2.5 mm CM 8.1 mm 69% Nicolaides [...] MD IMG US ORDERABLES Final Result * nonstress test - Maternal Medicine (10/24/2024 [...] Jennifer Sheets RN 10/24/2024 4:16 PM us Corinneryder Wang Neisha DO OB GYNE ORDERABLES Final Res ult ASOBGYN * Ultrasound limited 1 or more fetus (09/25/2024 8:28 AM EDT) Anatomical Region Laterality Modality OB-DIRECTOR RETIREMENT Ultrasound us Not In System Ref Prov IMG US ORDERABLES Final R esult * Ultrasound pelvic with transvaginal (09/14/2024 2:22 PM EDT) Anatomical Region Laterality Modality Body, Pelvis Ultrasound us Not In System Ref Prov IMG US ORDERABLES Final R esult * Ultrasound transvaginal preg (09/14/2024 10:15 AM EDT) Anatomical Region Laterality Modality Body Ultrasound us Scanning Provider External IMG US ORDERABLES Fin al Result * Glucose tolerance, 1 hour (08/30/2024) Glucose Tolerance Test 1 Hour 66 MANUALLY TRANSCRIBED RESULTS Blood Venous blood / Unknown us Not In System Ref Prov LAB BLOOD ORDERABLES Leti l Result Performing Organization Address City/[facility] Co de Phone Number MANUALLY TRANSCRIBED RESULTS * CBC without diff (08/30/2024) Hemoglobin 13.0 MANUALLY TRANSCRIBED RESULTS Hematocrit 38.8 MANUALLY TRANSCRIBED RESULTS Rbc Mcv (Fl) By Automated Count 89.8 MANUALLY TRANSCRIBED RESULTS Platelets 272 MANUALLY TRANSCRIBED RESULTS Blood Venous blood / Unknown us Not In System Ref Prov LAB BLOOD ORDERABLES Leti l Result Performing Organization Address [facility] Co de Phone Number MANUALLY TRANSCRIBED RESULTS * High risk HPV w/faustina (07/06/2024) Other High Risk Hpv NEGATIVE MANUALLY TRANSCRIBED RESULTS Thin Prep Cervix uteri structure / Unknown us Not In System Ref Prov LAB BLOOD ORDERABLES Leti l Result Performing Organization Address City/[facility] Co de Phone Number MANUALLY TRANSCRIBED RESULTS from Last 3 Months or Most Recently Relevant to Health Maintenance Insurance * Guarantor: Sapna Serrano Account Type Relation to Patient Date of Phone Billing Address Personal/Family Self 1995 [address] [place] [address] [employer] Care Teams Carpenter Assembler Relationship Specialty Start Date End Date Armen Sánchez DO [address], [address] [place] [id number] PCP - General Family Medicine 08/25/23
--- OUTSIDE RECORDS SUMMARY | 2024-11-01 10:55 | XMS_ITS | Encounter Summary ---
Author Organization [facility] Address [address] [place] [address] Care Team Providers Care Costume Shop Manager Name Role Phone Emi Bronson [facility] Unavailable + [phone] Armen Sánchez MD Primary Care Provider + [phone] Encounter Details Date Type Department Care Team (Late st Contact Info) Description 09/14/2023 Abstract [facility] [facility] [address] [facility] [address] [place] [phone] Nav Ames MD [address] [facility] [address] [place] [address] Social History Tobacco Use Types Packs/Day Years [...] on filedocumented in this encounter Care Teams Costume Shop Manager Relationship Specialty Start Date End Date Armen Sánchez MD [address] [facility] [address] [place] [address] PCP - General Family Medicine 05/05/24 Emi Bronson, [facility] [address] [place] [phone] Behavioral Health 04/12/24 09/26/24 documented as of this encounter
--- OUTSIDE RECORDS SUMMARY | 2024-11-01 10:55 | XMS_ITS | Encounter Summary ---
Author Organization [facility] Address [address] [place] [address] Care Team Providers Care Silviculturist Name Role Phone Aiyana, Emi Munson [facility] Unavailable + [phone] Armen Sánchez MD Primary Care Provider + [phone] Encounter Details Date Type Department Care Team (Late st Contact Info) Description 07/11/2024 Orders Only [facility] [address] [place] [address] Mary Quinn LPN [address] [place] [address] Social History Tobacco Use Types [...] on filedocumented in this encounter Care Teams Silviculturist Relationship Specialty Start Date End Date Armen Sánchez MD [address] [place] [address] PCP - General Family Medicine 05/05/24 Emi Bronson [facility] [address] [place] [address] Behavioral Health 04/12/24 09/26/24 documented as of this encounter
--- OUTSIDE RECORDS SUMMARY | 2024-11-01 10:55 | XMS_ITS | Encounter Summary ---
Author Organization [employer] tem Address [id number] [address] [place] [address] Care Team Providers Care Outboard Technician Name Role Phone PrincessArmen Cedric [place] Primary Care Provider Encounter Details Date Type Department Care Team (Late st Contact Info) Description 10/17/2024 [facility] [address] [place] [address] Bernadette Zhang CMA Social History Tobacco Use Types Packs/Day Years Used Date Smoking Tobacco: Every Day Cigarettes 1 13.3 Started: 08/01/2011 Smokeless Tobacco: Never Alcohol Use Standard Drinks/Week Comments Not Currently 0 (1 standard drink = 0.6 oz pur e alcohol) [facility] Utilities Answer Date Recorded In the past 12 months has [employer], gas, oil, or water company threatened to [...] attend chur ch or rastafari services? Never 01/27/2024 Do you belong to [...] Health Services - Women's Services [address] [place] [address] Tiffany Easton MD [address] [facility] [place] [address] 11/06/2024 11:00 AM EDT Appointment [facility] US Imaging [address] [place] [address] 11/14/2024 3:30 PM EDT Appointment [facility] US Imaging [address] [place] [address] 11/21/2024 2:00 PM EDT Appointment [facility] US Imaging [address] [place] [address] 11/28/2024 11:00 AM EDT Appointment [facility] US Imaging [address] [place] [address] 11/28/2024 11:30 AM EDT Office Visit Maternal- Medicine at [facility] [address] [place] [address] Edil Bullock MD [address] [address] documented as of this encounter Visit Diagnoses Not on filedocumented in this encounter Additional Health Concerns Assessment Noted Time PHQ-9 Depression Total Score: 0 10/27/19 10:25 AM EDT A Body Mass Index follow-up plan has been documented for the patient 08/10/2023 10:14 AM EDT documented as of this encounter Care Teams Outboard Technician Relationship Specialty Start Date End Date Armen Sánchez DO [address] [facility], [place] [address] PCP - General Family Medicine 08/25/23 documented as of this encounter
--- OUTSIDE RECORDS SUMMARY | 2024-11-01 10:55 | XMS_ITS | Clinical Summary ---
Author Organization [facility] Address [address] [place] [address] Care Team Providers Care Goat Driver Name Role Phone Armen Sánchez MD Primary [...] Diagnosed Date H/O LEEP 10/17/2024 Third trimester ([facility]) 10/03/2024 29 weeks gestation of ([facility]) 2024 HSV infection 10/03/2024 Placental abnormality in third trimester ([facility]) 09/21/2024 History of loop electrosurgi ledy excision procedure (LEEP) of cervix affecting , antepartum ([facility]) 09/21/2024 Cystic fibrosis carrier, antepartum ([facility]) Moderate episode of recurrent major depressive d isorder 10/25/2023 ALICIA (generalized anxiety disorder) 10/25/2023 Estimated Date of Delivery Comme nts Yes 12/12/2024 Based on last me nstrual period of 03/07/2024 Encounters Date Type Department Care Team Description 10/26/2024 Clinisync Result Encounter [facility] External Department Unsolicited Magan Paez, DO 10/19/2024 Clinisync Result Encounter NOMS External Department Unsolicited Magan Paez, DO 10/17/2024 2:20 PM [place] [address] Jocy Ruby PA Third trimester ([facility]); 32 weeks gestation of ([facility]); H/O LEEP; Cystic fibrosis carrier, antepartum ([facility]); HSV infection 10/17/2024 [place] [address] Jocy Ruby PA 10/16/2024 Travel 10/12/2024 Clinisync Result Encounter NOMS External Department Unsolicited Magan Paez, 10/09/2024 [place] [address] Reanna Fernandez MA 10/04/2024 Clinisync Result Encounter NOMS External Department Unsolicited Magan Paez, 10/04/2024 [place] [address] Magan Paez, 10/03/2024 8:40 AM [place] [address] Magan Paez, DO Third trimester ([facility]); Cystic fibrosis carrier, antepartum ([facility]); Moderate episode of recurrent major depressive disorder ([facility]); History of loop electrosurgical excision procedure (LEEP) of cervix affecting , antepartum ([facility]); HSV infection; 30 weeks gestation of ([facility]); Maternal care for other (suspected) abnormality and damage, gastrointestinal anomalies, not applicable or unspecified ([facility]) 10/03/2024 Telephone [facility] [address] [place] [address] Laura Godwni, UMBERTO 10/03/2024 Abstract [facility] [address] [facility] [place] [address] Magan Paez, DO 09/25/2024 Clinisync Result Encounter NOMS External Department Unsolicited Magan Paez, DO 09/21/2024 Abstract [facility] [address] [place] [address] Magan Paez, DO 09/21/2024 Abstract [facility] [address] [facility] [place] [address] Magan Paez, DO 09/21/2024 Clinisync Result Encounter NOMS External Department Unsolicited Magan Paez, DO 09/21/2024 Clinisync Result Encounter NOMS External Department Unsolicited Magan Paez, DO 09/21/2024 Orders Only [facility] [address] [place] [address] Magan Paez, DO Placental abnormality in third trimester ([facility]); Cystic fibrosis carrier, antepartum ([facility]); History of loop electrosurgical excision procedure (LEEP) of cervix affecting , antepartum ([facility]) 09/21/2024 Telephone [facility] [address] [place] [address] Antoinette Jackman, UMBERTO 09/19/2024 Telephone [facility] [address] [place] [address] Laura Godwin LPN 09/18/2024 3:40 PM [place] [phone] Magan Paez DO Anxiety, generalized (Primary Dx); Second trimester ([facility]); 27 weeks gestation of ([facility]); Cystic fibrosis carrier, antepartum ([facility]) 09/18/2024 [place] [address] Magan Paez DO 09/18/2024 Travel 08/30/2024 9:50 AM [place] [phone] Jocy Ruby PA Second trimester ([facility]); 25 weeks gestation of ([facility]) 08/30/2024 Clinisync Result Encounter NOMS External Department Unsolicited Magan Paez DO 08/30/2024 [place] [address] Jocy Ruby PA 08/14/2024 10:30 AM EDT [place] [address] Magan Paez DO Cystic fibrosis carrier, antepartum ([facility]); LGSIL on Pap smear of cervix 08/14/2024 Travel from Last 3 Months Family History [...] BPP W NON-STRESS 10/26/2024 4:52 PM EDT US OB BPP W NON-STRESS 10/19/2024 11:27 AM EDT US OB BPP W NON-STRESS 10/12/2024 8:55 PM EDT US OB PLACENTA 10/04/2024 9:50 AM EDT POCT URINALYSIS DIPSTICK Routine 10/03/2024 9:04 AM EDT Third trimester ([facility]) US OB BPP W NON-STRESS 09/25/2024 8:08 AM EDT US OB PLACENTA 09/21/2024 2:53 PM EDT US OB CERVICAL LENGTH 09/21/2024 2:40 PM EDT GLUCOSE 1 HOUR Routine 08/30/2024 11:28 AM EDT ALL CBC WITH AUTO DIFF Routine 08/30/2024 11:28 AM EDT POCT URINALYSIS DIPSTICK Routine 08/30/2024 11:24 AM EDT Second trimester ([facility]) COLPOSCOPY Routine 08/14/2024 2:19 PM EDT LGSIL on Pap smear of cervix from Last 3 Months Results * US OB BPP W NON-STRESS (10/26/2024 4:52 PM EDT) Only the most recent of4 resultswithin the time period is included. Anatomical Region Laterality Modality Other 10/26/2024 4:52 PM EDT Narrative 10/26/2024 4:55 [place] [address] Ultrasound Report Signed Patient: MICHI SERRANO MR#: [id number] : 1995 Acct:[id number] Age/Sex: 29 / F ADM Date: 10/26/24 Loc: [facility] 255-[address]: Magan Paez D.O. Ordering Physician: Magan Paez D.O. Date of Service: 10/26/24 Procedure(s): US OB BPP w non-stress Accession Number(s): [id number] cc: ARMEN SÁNCHEZ ; Magan Paez D.O. [address] [address] Patient Name: MICHI SERRANO MRN: [id number] date: 1995 Sex: F Assigned Patient Location: [facility] Current Patient Location: [facility] Accession/Order Number: [id number] Exam Date: 10/26/2024 16:51 Report Date: 10/26/2024 16:52 At the request of: MAGAN PAEZ DO Procedure: US OB BPP w non-stress Biophysical profile. Reason for exam: Cystic fibrosis COMPARISON: None TECHNIQUE: Transabdominal imaging of the gravid uterus was obtained. FINDINGS: The pole peeling machine operator reports a BPP of 8 out of 8. NAYE is normal at 17.6 cm. heart rate 150 bpm. US/US OB BPP w non-stress IMPRESSION: BPP 8 out of 8. Impression dictated by: Hugo Atkins Jr., D.O. 10/26/2024 4:52 PM Dictation Location: [place] [address] Electronically authenticated by: [id number] Y Date: 10/26/2024 16:52 Dictated By: Hugo Atkins M.D. Signed By: 10/26/241654 DD/ 51 TD/TT: Tree Loader Meat: Procedure Note Radiology, Radiologist, MD - 10/27/2024 [place] [address] Ultrasound Report Signed Patient: MICHI SERRANO KMR#: [id number] : 1995Acct:[id number] Age/Sex: 29 / FADM Date: 10/26/24 Loc: [facility] 255-[address]: Magan Paez D.O. Ordering Physician: Magan Paez D.O. Date of Service: 10/26/24 Procedure(s): US OB BPP w non-stress Accession Number(s): [id number] cc: ARMEN SÁNCHEZ Corey D.O. [address] [place] [address] Patient Name: MICHI SERRANO MRN: [id number] date: 1995 Sex: F Assigned Patient Location: [facility] Current Patient Location: [facility] Accession/Order Number: [id number] Exam Date: 10/26/2024 16:51 Report Date: 10/26/2024 16:52 At the request of: MAGAN PAEZ DO Procedure: US OB BPP w non-stress Biophysical profile. Reason for exam: Cystic fibrosis COMPARISON: None TECHNIQUE: Transabdominal imaging of the gravid uterus was obtained. FINDINGS: The pole peeling machine operator reports a BPP of 8 out of 8. NAYE is normal at17.6 cm. heart rate 150 bpm. US/US OB BPP w non-stress IMPRESSION: BPP 8 out of 8. Impression dictated by: Hugo Atkins Jr., D.O. 10/26/2024 4:52 PM Dictation Location: [place] [address] Electronically authenticated by: [id number] Y Date: 6:52 Dictated By: Hugo Atkins M.D. Signed By:10/26/241654 DD/ 51 TD/TT: Tree Loader Meat: us Magan Paez DO [facility] Final Result * US OB PLACENTA (10/04/2024 9:50 AM EDT) Only the most recent of2 resultswithin the time period is included. Anatomical Region Laterality Modality Other 10/04/2024 9:50 AM EDT Narrative 10/04/2024 9:52 [place] [address] Ultrasound Report Signed Patient: MICHI SERRANO MR#: [id number] : 1995 Acct:[id number] Age/Sex: 29 / F ADM Date: 09/24/24 Loc: [facility] Attending Dr: Magan Paez D.O. Ordering Physician: Magan Paez D.O. Date of Service: 09/24/24 Procedure(s): US OB placenta Accession Number(s): [id number] cc: ARMEN SÁNCHEZ Corey D.O. [place] [id number] Patient Name: MICHI SERRANO MRN: [id number] date: 1995 Sex: F Assigned Patient Location: [facility] Current Patient Location: [place] Accession/Order Number: [id number] Exam Date: 10/04/2024 09:16 Report Date: 10/04/2024 [...] Rahman M.D. 10/04/2024 9:50 AM Dictation Location: [place] [address] Electronically authenticated by: [id number] Y Date: 10/04/2024 09:50 Dictated By: Laura Rahman M.D. Signed By: 10/04/2452 DD/ TD/TT: Tree Loader Meat: Procedure Note Radiology, Radiologist, MD - 10/04/2024 [place] [address] Ultrasound Report Signed Patient: MICHI SERRANO KMR#: [id number] : 1995Acct:[id number] Age/Sex: 29 FADM Date: 09/24/24 Loc: [facility] Attending Dr: Magan Paez D.O. Ordering Physician: Magan Paez D.O. Date of Service: 09/24/24 Procedure(s): US OB placenta Accession Number(s): [id number] cc: ARMEN SÁNCHEZ ; Magan Paez D.O. [place] [address] Patient Name: MICHI SERRANO MRN: [id number] date: 1995 Sex: F Assigned Patient Location: [facility] Current Patient Location: US Accession/Order Number: [id number] Exam Date: 10/04/2024 09:16 Report Date: 10/04/2024 [...] Rahman M.D. 10/04/2024 9:50 AM Dictation Location: [place] [address] Electronically authenticated by: [id number] Y Date: 9:50 Dictated By: Laura Rahman M.D. Signed By:10/04/24 0952 DD/ 0950 TD/TT: Tree Loader Meat: us Magan Jeannine DO [facility] Final Result * (ABNORMAL) [...] - Positive Urine 10/03/2024 9:04 AM EDT us Magan Paez DO POINT OF CARE TEST ENTER/EDIT OR DERABLES Final Result * US OB CERVICAL LENGTH (09/21/2024 2:40 PM EDT) Anatomical Region Laterality Modality Other 09/21/2024 2:40 PM EDT Narrative 09/21/2024 2:43 [place] [address] Ultrasound Report Signed Patient: MICHI SERRANO MR#: [id number] : 1995 Acct:[id number] Age/Sex: 29 / F ADM Date: 09/21/24 Loc: US Attending Dr: Magan Paez D.O. Ordering Physician: Magan Paez D.O. Date of Service: 09/21/24 Procedure(s): US OB cervical length Accession Number(s): [id number] cc: ARMEN SÁNCHEZ ; Magan Paez D.O. [place] [id number] Patient Name: MICHI SERRANO MRN: [id number] date: 1995 Sex: F Assigned Patient Location: Current Patient Location: Accession/Order Number: [id number] Exam Date: 09/21/2024 14:39 Report Date: 09/21/2024 [...] Jr., D.O. 09/21/2024 2:40 PM Dictation Location: [place] [address] Electronically authenticated by: [id number] Y Date: 09/21/2024 14:40 Dictated By: Hugo Atkins M.D. Signed By: 09/21/24 144 DD/ 39 TD/TT: Tree Loader Meat: Procedure Note Radiology, Radiologist, - 09/21/2024 [place] [address] Ultrasound Report Signed Patient: MICHI SERRANO KMR#: [id number] : 1995Acct:[id number] Age/Sex: 29 / FADM Date: 09/21/24 Loc: US Attending Dr: Magan Paez D.O. Ordering Physician: Magan Paez D.O. Date of Service: 09/21/24 Procedure(s): US OB cervical length Accession Number(s): [id number] cc: ARMEN SÁNCHEZ ; Magan Paez D.O. [place] [address] Patient Name: MICHI SERRANO MRN: [id number] date: 1995 Sex: F Assigned Patient Location: US Current Patient Location: US Accession/Order Number: [id number] Exam Date: 09/21/2024 14:39 Report Date: 09/21/2024 [...] Jr., D.O. 09/21/2024 2:40 PM Dictation Location: [place] [address] Electronically authenticated by: [id number] Y Date: 4:40 Dictated By: Hugo Atkins M.D. Signed By:09/21/24 144 DD/ 39 TD/TT: Tree Loader Meat: us Magan Jeannine DO [facility] Final Result * GLUCOSE 1 HOUR (08/30/2024 11:28 AM EDT) Pathologist [facility] [place] GLUCOSE 1 HOUR 66 <130 mg/dL TBH 08/30/2024 11:2 8 AM EDT 08/30/2024 11:29 AM EDT Narrative [facility]IN[facility] - 08/30/2024 12:05 PM EDT us Magan Jeannine DO LAB BLOOD ORDERABLES Final Resul t [facility] * (ABNORMAL) ALL CBC WITH AUTO DIFF (08/30/2024 11:28 AM EDT) Pathologist [facility] [place] TB WBC 11.8(H) 4.0 - 11.0 10 3/uL TBH TBH RBC 4.32 4.20 - 5.40 10 6/uL TBH TBH HGB 13.0 12.0 - 16.0 g/dL TB TBH HCT 38.8 36.0 - 48.0 % [...] Magan Paez DO [facility] Final Result [facility] * Colposcopy (08/14/2024 2:19 PM EDT) Magan [...] DO IN CLINIC/BEDSIDE ORDERABLES Fin al Result from Last 3 Months Insurance * Guarantor: Michi Serrano Account Type Relation to Patient Date of Phone Billing Address Personal/Family Self 1995 [address] [place] [address] [facility] Care Teams Goat Driver Relationship Specialty Start Date End Date Armen Sánchez MD PCP - General Family Medicine 05/05/24
== END 2024-11-01 10:54 | disposition home or self-care (01) ==
LOC: US 10:53
PROVIDERS: PCP Family Medicine; Visit Provider Physician Assistant
DX: Z34.93 Encounter for supervision of normal pregnancy, unspecified, third trimester (principal)
CPT/HCPCS: 76817

== ENCOUNTER 2024-11-02 11:07 | Outpatient (OUT) | payer OTHER, SELFPAY ==
--- NOTE | 2024-11-02 | US_ITS ---
[address] [address] Patient Name: MICHI LUNA MRN: [id number] date: 1995 Sex: F Assigned Patient Location: [facility] Current Patient Location: [facility] Accession/Order Number: [id number] Exam Date: 11/02/2024 11:40 Report Date: 11/02/2024 11:42 At the request of: MAGAN TRISTAN DO Procedure: US OB BPP w non-stress Biophysical profile. Reason for exam: Cystic fibrosis COMPARISON: 10/26/2024 TECHNIQUE: Transabdominal imaging of the gravid uterus was obtained. FINDINGS: The campground cleaning attendant reports a BPP of 8 out of 8. NAYE is normal at 15.9 cm. heart rate 153 bpm. US/US OB BPP w non-stress IMPRESSION: BPP 8 out of 8. Impression dictated by: Hugo Atkins Jr., D.O. 11/02/2024 11:42 AM Dictation [facility] Electronically authenticated by: [id number] Y Date: 11/02/2024 11:42
[2024-11-02 11:27] VITALS: BP 138/62; PULSE 96
== END 2024-11-02 12:05 | disposition home or self-care (01) ==
LOC: US 11:07 → FBC 11:08
PROVIDERS: PCP Family Medicine; Visit Provider Obstetrics & Gynecology
DX: O26.893 Other specified pregnancy related conditions, third trimester (principal); E84.9 Cystic fibrosis, unspecified; Z3A.34 34 weeks gestation of pregnancy
CPT/HCPCS: 76818

== ENCOUNTER 2024-11-09 10:58 | Outpatient (OUT) | payer OTHER, SELFPAY ==
--- NOTE | 2024-11-09 | US_ITS ---
[address] [address] Patient Name: MICHI LUNA MRN: [id number] date: 1995 Sex: F Assigned Patient Location: [facility] Current Patient Location: [facility] Accession/Order Number: [id number] Exam Date: 11/09/2024 11:36 Report Date: 11/09/2024 11:37 At the request of: MAGAN TRISTAN DO Procedure: US OB BPP w non-stress BIOPHYSICAL PROFILE: CLINICAL INFORMATION: CYSTIC FIBROSIS CARRIER O09.899 COMPARISON: 11/02/2024 There is a single live intrauterine gestation in cephalic presentation. The reported gestational age is 35 weeks 2 days. The heart rate [id number] beats per minute. FINDINGS: TONE: 1 or more episodes of activity extension and flexion of extremity or opening and closing of the hand [Y] 2/2 GROSS BODY MOVEMENTS: 3 or more discrete body or limb movements [Y] 2/2 BREATHING MOVEMENTS: 1 or more episodes of breathing lasting at least 30 seconds [Y] 2/2 NAYE: A single deepest vertical pocket of amniotic fluid greater than 2 cm [Y] 2/2 NAYE: 15.2 cm Total score: 11/10 US/US OB BPP w non-stress IMPRESSION: NORMAL BIOPHYSICAL PROFILE Impression dictated by: Luara Rahman M.D. 11/09/2024 11:37 AM Dictation Location: [email or web address] Electronically authenticated by: [id number] Y Date: 11/09/2024 11:37
[2024-11-09 11:29] VITALS: BP 132/72; PULSE 86
== END 2024-11-09 12:00 | disposition home or self-care (01) ==
LOC: US 10:58 → FBC 11:00
PROVIDERS: PCP Family Medicine; Visit Provider Obstetrics & Gynecology
DX: Z14.1 Cystic fibrosis carrier (principal); O09.893 Supervision of other high risk pregnancies, third trimester; Z3A.35 35 weeks gestation of pregnancy
CPT/HCPCS: 76818

== ENCOUNTER 2024-11-13 17:12 | Outpatient (OUT) | payer OTHER, SELFPAY ==
--- OUTSIDE RECORDS SUMMARY | 2024-10-30 10:43 | XMS_ITS | Encounter Summary ---
Demographics Address [address] [place] [address] Mobile Phone Email Address Email Address Preferred Language Tongan Marital Status Single Restoration Affiliation Unknown Race White Ethnic Group Not or Lati no Author Organization [facility] tem Address [id number] [address] [place] [address] Care Team Providers Care Passenger Service Supervisor Name Role Phone PrincessArmen Cedric [place] Primary Care Provider + [phone] Reason for Referral * Diagnostic Imaging (Routine) - Pending Review Specialty Diagnoses / Procedures Referred By Thom patel Referred To Contact Maternal and Medicine Diagnoses Abnormal genetic test during Maternal care for other (suspected) abnormality and damage, gastrointestinal anomalies, not applicable or unspecified Cystic fibrosis carrier Procedures US MFM with or without consult Brionna Sanabria MD [address] [address] Phone: tel: fax: Maternal- Medicine at [facility] [address] [place] [address] Phone: tel: fax: Referral ID Status Reason Start Date Expiration Date V isits Requested Visits Authorized [id number] Pending Review 10/13/2024 10/13/2025 1 1 Reason for Visit * Diagnostic Imaging (Routine) - Pending Review Specialty Diagnoses / Procedures Referred By Thom patel Referred To Contact Maternal and Medicine Diagnoses Abnormal genetic test during Maternal care for other (suspected) abnormality and damage, gastrointestinal anomalies, not applicable or unspecified Cystic fibrosis carrier Procedures US MFM with or without consult Brionna Sanabria MD [address] [facility] [address] [place] [address] Phone: tel: fax: M[facility]- Medicine at [facility] [address] [place] [address] Phone: tel: fax: Referral ID Status Reason Start Date Expiration Date V isits Requested Visits Authorized [id number] Pending Review 10/13/2024 10/13/2025 1 1 Encounter Details Date Type Department Care Team (Latest Contact Info) Description 10/30/2024 10:43 AM EDT - 10/30/2024 11:59 PM EDT Hospital Encounter [facility] US Imaging [address] [place] [address] Abnormal genetic test during ; [...] drink = 0.6 oz pur e alcohol) [facility] Utilities Answer Date Recorded In the [...] often do you attend chur ch or jew services? Never 01/27/2024 Do you belong to [...] Answer Date Recorded Total Score 0 10/18/2024 [facility] [...] Do you need help finding a community medical center[facility] career center and/or a training program? No [...] Care Team (Late st Contact Info) Description 11/14/2024 3:30 PM EDT Appointment [facility] US Imaging [address] [place] [address] 11/17/2024 2:30 PM EDT [facility] [place] [address] Gemma Horne MD [address] [facility], [address] [address] 11/21/2024 2:00 PM EDT Appointment [facility] US Imaging [address] [place] [address] 11/28/2024 11:00 AM EDT Appointment [facility] US Imaging [address] [facility] [place] [address] 11/28/2024 11:30 AM EDT Office Visit [facility] [address] [facility] [place] [address] Edil Bullock MD [address] [facility], [address] [place] [address] documented as of this encounter Procedures Procedure Name Priority Date/Time Associated Diagnosis Comments US MFM OB FOLLOW-UP, 1 FETUS Routine 10/30/2024 12:14 PM EDT Abnormal genetic test during Maternal care for other (suspected) abnormality and damage, gastrointestinal anomalies, not applicable or unspecified Cystic fibrosis carrier documented in this encounter Results * US MFM OB FOLLOW-UP, 1 FETUS (10/30/2024 12:14 PM EDT) Anatomical Region Laterality Modality OB-HUMAN RESOURCE ADVISER Ultrasound 10/30/2024 11:3 6 AM EDT Narrative 10/30/2024 2:34 PM EDT NAME: JEREMY BORDEN : 1995 SEX: F Accession Number: [id number] ORDERING PHYSICIAN: BRIONNA SANABRIA REFERRING PHYSICIAN: MAGAN TRISTAN Coding ----- --------- Procedures 32391: Follow-up Ultrasound, per fetus Indication ----- --------- Abnormal finding on screening of mother-MOB + FOB CF carriers, Depression, Anxiety , Supervision of high risk , recent trauma to abdomen , prominent bowel , cystic fibrosis History ----- --------- OB History 1. Para 0 [id number] Current ----- --------- Cell free DNA low risk analysis Maternal Assessment ----- --------- Physical Exam Height 163 cm, 5 ft 4 in. Initial weight 86 kg, 190 lb. Initial BMI 32.61 kg/m Method ----- --------- Transabdominal ultrasound examination. View: Suboptimal view: limited by maternal body habitus ----- --------- Dupont . Number of fetuses: 1 Dating ----- --------- LMP on: 03/07/2024 GA by LMP 33 w + 6 d DOMINIQUE by LMP: 12/12/2024 Previous Ultrasound on: 04/27/2024 Type of prior assessment: GA GA at prior assessment date 7 w + 2 d GA by previous U/S 33 w + 6 d DOMINIQUE by previous Ultrasound: 12/12/2024 Ultrasound examination on: 10/30/2024 GA by U/S based upon: AC, BPD, Femur, HC GA by U/S 33 w + 1 d DOMINIQUE by U/S: 12/17/2024 Assigned: based on the LMP, selected on 07/28/2024 Assigned GA 33 w + 6 d Assigned DOMINIQUE: 12/12/2024 General Evaluation ----- --------- Cardiac activity Present. FHR 126 bpm. Presentation: cephalic Placenta: Placental site: anterior, previously documented away from cervical os Umbilical cord: Cord vessels: 3 vessel cord. Insertion site: documented previously Amniotic fluid: Amount of AF: normal amount. MVP 7.9 cm Biometry ----- --------- Standard BPD 82.9 mm 33w 2d 32% Hadlock OFD 104.4 mm 34w 1d 57% Dank HC 297.9 mm 33w 0d 5% Hadlock Cerebellum tr 43.8 mm 34w 0d 34% Hill AC 302.5 mm 34w 1d 64% Hadlock Femur 61.7 mm 32w 0d 5% Hadlock Humerus 52.4 mm 30w 4d 1% Dank HC / AC 0.98 EFW 2,183 g 30% Hadlock EFW (lb) 4 lb EFW (oz) 13 oz EFW by: Hadlock (TUA-VO-PA-FL) Extended Tibia 55.5 mm 32w 5d 31% Dank Hand Surgeon 2.5 mm CM 8.1 mm 69% Nicolaides Head / Face / Neck Cephalic index 0.79 39% Nicolaides Extremities / Bony Struc FL / BPD 0.74 FL / HC 0.21 FL / AC 0.20 Other Structures FHR 126 bpm Anatomy ----- --------- The following structures appear normal: Head/Neck: Cranium. Lateral ventricles. Cavum septi pellucidi. Cerebellum. Cisterna magna. Vermis. Heart/Thorax: Cardiac position. Cardiac axis. Cardiac size. Cardiac rhythm. Diaphragm. Abdomen: Stomach. Kidneys. Bladder. The following structures could not be adequately visualized: Heart / Thorax 4-chamber view. Maternal Structures ----- --------- Uterus Visualized Cervix Suboptimal Approach - Transabdominal Right Ovary Visualized Size 2.4 cm x 2.5 cm x 1.3 cm. Vol 4.2 cm Left Ovary Not visualized Cul de Sac Suboptimal Impression ----- --------- Single viable intrauterine with appropriate interval growth. EFW measures at the 30%, AC measures at the 64%. Amniotic fluid MVP measures 7.9 cm. Recommendations ----- --------- Please see follow up MFM documentation from today's encounter. Subsequent follow up or other follow up as clinically determined by primary OB provider unless otherwise specified by MFM. Results forwarded to ordering provider so they can follow up with the patient as necessary. Procedure Note Angela Perez MD - 10/30/2024 NAME: JEREMY BORDEN : 1995 SEX: F Accession Number: [id number] ORDERING PHYSICIAN: BRIONNA SANABRIA REFERRING PHYSICIAN: MAGAN TRISTAN Coding ----- --------- Procedures 32474: Follow-up Ultrasound, per fetus Indication ----- --------- Abnormal finding on screening of mother-MOB + FOB CF carriers,Depression, Anxiety , Supervision of high risk , recent trauma to abdomen , prominent bowel , cysticfibrosis History ----- --------- OB History 1. Para 0 [id number] Current ----- --------- Cell free DNA low risk analysis Maternal Assessment ----- --------- Physical Exam Height 163 cm, 5 ft 4 in. Initial weight 86 kg, 190 lb.Initial BMI 32.61 kg/m Method ----- --------- Transabdominal ultrasound examination. View: Suboptimal view: limited bymaternal body habitus ----- --------- Dupont . Number of fetuses: 1 Dating ----- --------- LMP on: 03/07/2024 GA by LMP 33 w + 6 d DOMINIQUE by LMP: 12/12/2024 Previous Ultrasound on: 04/27/2024 Type of prior assessment: GA GA at prior assessment date 7 w + 2 d GA by previous U/S 33 w + 6 d DOMINIQUE by previous Ultrasound: 12/12/2024 Ultrasound examination on: 10/30/2024 GA by U/S based upon: AC, BPD, Femur, HC GA by U/S 33 w + 1 d DOMINIQUE by U/S: 12/17/2024 Assigned: based on the LMP, selected on 07/28/2024 Assigned GA 33 w + 6 d Assigned DOMINIQUE: 12/12/2024 General Evaluation ----- --------- Cardiac activity Present. FHR 126 bpm. Presentation: cephalic Placenta: Placental site: anterior, previously documented away fromcervical os Umbilical cord: Cord vessels: 3 vessel cord. Insertion site: documentedpreviously Amniotic fluid: Amount of AF: normal amount. MVP 7.9 cm Biometry ----- --------- Standard BPD 82.9 mm 33w 2d 32% Hadlock OFD 104.4 mm 34w 1d 57% Dank HC 297.9 mm 33w 0d 5% Hadlock Cerebellum tr 43.8 mm 34w 0d 34% Hill AC 302.5 mm 34w 1d 64% Hadlock Femur 61.7 mm 32w 0d 5% Hadlock Humerus 52.4 mm 30w 4d 1% Dank HC / AC 0.98 EFW 2,183 g 30% Hadlock EFW (lb) 4 lb EFW (oz) 13 oz EFW by: Hadlock (OXW-IW-AB-FL) Extended Tibia 55.5 mm 32w 5d 31% Dank Hand Surgeon 2.5 mm CM 8.1 mm 69% Nicolaides Head / Face / Neck Cephalic index 0.79 39% Nicolaides Extremities / Bony Struc FL / BPD 0.74 FL / HC 0.21 FL / AC 0.20 Other Structures FHR 126 bpm Anatomy ----- --------- The following structures appear normal: Head/Neck: Cranium. Lateral ventricles. Cavum septi pellucidi. Cerebellum.Cisterna magna. Vermis. Heart/Thorax: Cardiac position. Cardiac axis. Cardiac size. Cardiacrhythm. Diaphragm. Abdomen: Stomach. Kidneys. Bladder. The following structures could not be adequately visualized: Heart / Thorax 4-chamber view. Maternal Structures ----- --------- Uterus Visualized Cervix Suboptimal Approach - Transabdominal Right Ovary Visualized Size 2.4 cm x 2.5 cm x 1.3 cm. Vol 4.2 cm Left Ovary Not visualized Cul de Sac Suboptimal Impression ----- --------- Single viable intrauterine with appropriate interval growth. EFWmeasures at the 30%, AC measures at the 64%. Amniotic fluid MVP measures 7.9 cm. Recommendations ----- --------- Please see follow up MFM documentation from today's encounter. Subsequent follow up or other follow up as clinically determined byprimary OB provider unless otherwise specified by MFM. Results forwarded to ordering provider so they can follow up with thepatient as necessary. Brionna Sanabria MD [facility] [place] US ORDERABLES Final Result documented in this [...] documented as of this encounter Care Teams Passenger Service Supervisor Relationship Specialty Start Date End Date Armen Sánchez DO [address], [address] [address] PCP - General Family Medicine 08/25/23 documented as of this encounter
--- OUTSIDE RECORDS SUMMARY | 2024-10-30 11:30 | XMS_ITS | Encounter Summary ---
Author Organization [facility] [employer] [facility] tem Address [facility][id number] [address] [place] [address] Care Team Providers Care Piano Machine Operator Name Role Phone MasoodArmen silverman Cedric PHOENIX Primary Care Provider Reason for Visit * Reason Comments Cystic Fibrosis Prominent Bowel Encounter Details Date Type Department Care Team (Latest Contact Info) Description 10/30/2024 11:30 AM EDT Office Visit Maternal- Medicine at [facility] [address] [place] [phone] Angela Gardner MD [address] [facility], [address] [place] [address] Cystic fibrosis carrier, antepartum (Primary Dx); Maternal care for other (suspected) abnormality and damage, gastrointestinal anomalies, not applicable or unspecified; Overweight Social History Tobacco Use Types Packs/Day Years Used Date Smoking Tobacco: Every Day Cigarettes 1 13.3 Started: 08/01/2011 Smokeless Tobacco: Never Alcohol Use Standard Drinks/Week Comments Not Currently 0 (1 standard drink = 0.6 oz pur e alcohol) [facility] Utilities Answer Date Recorded In the past 12 months has [employer], gas, oil, or water company threatened to [...] Answer Date Recorded Total Score 0 10/18/2024 [facility] [place] of Occupat ional Health - Occupational Stress [...] Do you need help finding a [facility] career center and/or a training program? [...] amniocentesis which indicated two CF causing variants ([id number] and B0185O). Currently the patient has no complaints. The [...] - Weekly bowel evaluation and DVP through [facility] for now - repeat growth ultrasound in 4 weeks with MFM - the patient has seen a cystic fibrosis specialist - location of delivery to be further addressed. Thank you for allowing me to participate in [facility] Valencia Bryant care. If there are any questions, please do not hesitate to call me. Sincerely, ANGELA GARDNER MD documented in this encounter Plan of Treatment Upcoming Encounters Date Type Department Care Team (Late st Contact Info) Description 11/14/2024 3:30 PM EDT Appointment [facility] - [facility] US Imaging [address] [place] [address] 11/17/2024 2:30 PM EDT [facility] [address] [place] [address] Gemma Horne MD [address] [place] [address], [place] [address] 11/21/2024 2:00 PM EDT Appointment [facility] US Imaging [address] [place] [address] 11/28/2024 11:00 AM EDT Appointment [facility] - [facility] US Imaging [address] [place] [address] 11/28/2024 11:30 AM EDT Office Visit Maternal- Medicine at [facility] [address] [facility] [place] [address] Edil Bullock MD [address] [facility] [place], [address] [place] [address] documented as of this encounter Visit Diagnoses [...] documented as of this encounter Care Teams Piano Machine Operator Relationship Specialty Start Date End Date Armen Sánchez DO [address] COUNTS INCLUDE [address] BEDS AT THE [facility], [facility], [place] [address] PCP - General Family Medicine 08/25/23 documented as of this encounter
--- OUTSIDE RECORDS SUMMARY | 2024-11-03 13:00 | XMS_ITS | Encounter Summary ---
Author Organization Cloudvu s tem Address [id number] [address] [place] [address] Care Team Providers Care Manager Regional Sales Name Role Phone MasoodArmen silverman Primary Care Provider [phone] Reason for Visit * Reason Comments High Risk Gestation Encounter Details Date Type Department Care Team (Late st Contact Info) Description 11/03/2024 1:00 PM EDT [facility] [address] [place] [phone] Tiffany Easton MD [address] [place] [phone] GA: [id number] Social History Tobacco Use Types Packs/Day Years Used Date Smoking Tobacco: Every Day Cigarettes 1 13.3 Started: 08/01/2011 Smokeless Tobacco: Never Alcohol Use Standard Drinks/Week Comments Not Currently 0 (1 standard drink = 0.6 oz pur e alcohol) [facility] Utilities Answer Date Recorded In the past 12 months has [employer] electric, gas, oil, or water company threatened [...] week 01/27/2024 How often do you attend [facility] or worship services? Never 01/27/2024 Do you belong to any clubs o r organizations such as orthodox groups, unions, fraternal or athletic groups, [...] Answer Date Recorded Total Score 0 10/18/2024 [facility] of Occupat ional Health - Occupational Stress [...] Recorded Do you need help finding a [facility] career center and/or a training program? No [...] sent through Care Everywhere. * Choosing control (Portuguese) documented in this encounter Progress Notes * Tiffany Easton MD - 11/03/2024 1:00 PM EDT [place] [facility] High Risk Obstetrics Visit Return [...] good relief testing is being done at [place] with Dr. Paez 10/09/24 + chlamydia Treated [...] based on amniocentesis Twice weekly testing--receiving at [place] and NST with DVP/bowel check here at [facility] Serial growth scans--last done 10/30 at 33w5d Anxiety/depression stable H/o chlamydia this (07/2024) Urine GC/Chlamydia Request for steriliztion Sterilization discussed, including methods, alternatives (including vasectomy) and risks/expectations, including regret and failure. Patient desires to sign federal sterilization form--completed. Sheis aware that she can change her mind prior to the surgery time. [place] Resident/ [place] form. RTC 2 weeks via HROB Note [...] Info) Description 11/14/2024 3:30 PM EDT Appointment [facility] US Imaging [address] [place] [address] 11/17/2024 2:30 PM EDT [facility] [address] [place] [phone] Gemma Horne MD [address] [place] [address], [address] [address] 11/21/2024 2:00 PM EDT Appointment [facility] US Imaging [address] [place] [phone] 11/28/2024 11:00 AM EDT Appointment [facility] Imaging [address] [place] [address] 11/28/2024 11:30 AM EDT Office Visit Maternal- Medicine at [facility] [address] [place] [phone] Edil Bullock MD [address] [facility], [address] [place] [address] documented as of this encounter Procedures Procedure Name Priority Date/Time Associated Diagnosis Comments CHLAMYDIA/GONORRHOE AE BY PCR, URINE Routine 11/03/2024 2:16 PM EDT care, first in third trimester History of maternal Chlamydia infection, currently in third trimester documented in this encounter Results * Chlamydia/Gonorrhoeae by PCR, Urine (11/03/2024 2:16 PM EDT) [facility] Signature GONORRHOEAE PCR, U Negative Negative 11/05/2024 10:16 AM EDT [facility] Comment:Neisseria gonorrhoea e not detected by nucleic acid amplification. This does not exclude the possibility of infection because results are dependent on adequate specimen collection. CHLAMYDIA PCR, U Negative Negative 11/05/2024 10:16 AM EDT [facility] Comment:Chlamydia trachomati s not detected by nucleic acid amplification. This does not exclude the possibility of infection because results are dependent on adequate specimen collection. Urine Urine / Unknown 11/03/2024 2 :16 PM EDT 11/03/2024 2:16 PM EDT us Tiffany Easton MD MICROBIOLOGY - GENERAL O RDERABLES Final Result [facility] [address] [place] [address], documented in this encounter Visit Diagnoses Diagnosis [...] documented as of this encounter Care Teams Manager Regional Sales Relationship Specialty Start Date End Date Armen Sánchez DO [address], [facility] [place] [address] PCP - General Family Medicine 08/25/23 documented as of this encounter
--- OUTSIDE RECORDS SUMMARY | 2024-11-07 14:50 | XMS_ITS | Encounter Summary ---
Author Organization Smarterphone tem Address [id number] [address] [place] [address] Care Team Providers Care Rubber Off Name Role Phone Armen Sánchez DO Primary Care Provider + [phone] Reason for Referral * Diagnostic Imaging (Routine) [...] Family history of spina bifida Procedures US [facility] with or without consult Angela Gardner MD [address] [facility], [address] [place] [address] Phone: tel: fax: Maternal- Medicine at [place] [address] [place] [address] Phone: tel: fax: Referral ID Status Reason Start Date Expiration Date V isits Requested Visits Authorized [id number] Pending Review 10/30/2024 10/30/2025 1 1 Reason for Visit * Diagnostic [...] Family history of spina bifida Procedures US [facility] with or without consult Angela Gardner MD [address] [facility], [address] [place] [address] Phone: tel: fax: Maternal- Medicine at [facility] [address] [place] [address] Phone: tel: fax: Referral ID Status Reason Start Date Expiration Date V isits Requested Visits Authorized [id number] Pending Review 10/30/2024 10/30/2025 1 1 Encounter Details Date Type Department Care Team (Latest Contact Info) Description 11/07/2024 2:50 PM EDT - 11/07/2024 11:59 PM EDT Hospital Encounter [facility] - [facility] US Imaging [address] [place] [phone] Angela Gardner MD [address] [phone] Supervision of high risk in third trimester; Cystic fibrosis carrier, antepartum; Abnormal genetic test during ; Maternal care for other (suspected) abnormality and damage, gastrointestinal anomalies, not applicable or unspecified; Cystic fibrosis carrier; Family history of developmental delay; Family history of spina bifida Discharge Disposition: Home Social History Tobacco Use Types Packs/Day Years Used Date Smoking Tobacco: Every Day Cigarettes 1 13.3 Started: 08/01/2011 Smokeless Tobacco: Never Alcohol Use Standard Drinks/Week Comments Not Currently 0 (1 standard drink = 0.6 oz pur e alcohol) [facility] Utilities Answer Date Recorded In the past 12 months has [employer], gas, oil, or water [employer] threatened to shut off services in your [...] often do you attend chur ch or shinto services? Never 01/27/2024 Do you belong to any clubs o r organizations such as religion groups, unions, fraternal or athletic groups, or [...] Total Score 0 10/18/2024 [facility] of Occupat ional Health - Occupational [...] Recorded Do you need help finding a [facility] career center and/or a training [...] Info) Description 11/14/2024 3:30 PM EDT Appointment [facility] - [facility] US Imaging [address] [place] [phone] 11/17/2024 2:30 PM EDT [facility] [place] [address] Gemma Horne MD [address] [place] [address], [place] [address] 11/21/2024 2:00 PM EDT Appointment [facility] - [facility] US Imaging [address] [place] [address] 11/28/2024 11:00 AM EDT Appointment [facility] - [facility] US Imaging [address] [place] [address] 11/28/2024 11:30 AM EDT Office Visit Maternal- Medicine at [facility] [address] [place] [address] Edil Bullock MD [address] [facility], [address] [place] [address] documented as of this encounter Procedures Procedure Name Priority Date/Time Associated Diagnosis Comments US MFM AMNIOTIC FLUID VOLUME ASSESSMENT Routine 11/07/2024 3:23 PM EDT Supervision of high risk in third trimester Cystic fibrosis carrier, antepartum Abnormal genetic test during Maternal care for other (suspected) abnormality and damage, gastrointestinal anomalies, not applicable or unspecified Cystic fibrosis carrier Family history of developmental delay Family history of spina bifida documented in this encounter Results * US MFM AMNIOTIC FLUID VOLUME ASSESSMENT (11/07/2024 3:23 PM EDT) Anatomical Region Laterality Modality OB-RESEARCH ADVISOR Ultrasound 11/07/2024 3:02 PM EDT Narrative 11/07/2024 6:10 PM EDT NAME: JEREMY BORDEN : 1995 SEX: F Accession Number: [id number] ORDERING PHYSICIAN: ANGELA GARDNER REFERRING PHYSICIAN: CLIFTON IVERSON Coding ----- --------- Procedures 18879: biophysical profile; without non-stress testing Indication ----- --------- Abnormal finding on screening of mother-MOB + FOB CF carriers, Depression, Anxiety , Supervision of high risk , recent trauma to abdomen , prominent bowel , cystic fibrosis History ----- --------- OB History 1. Para 0 [id number] Current ----- --------- Cell free DNA low risk analysis Maternal Assessment ----- --------- Physical Exam Height 163 cm, 5 ft 4 in. Initial weight 86 kg, 190 lb. Initial BMI 32.61 kg/m Method ----- --------- Transabdominal ultrasound examination ----- --------- Dupont . Number of fetuses: 1 Dating ----- --------- LMP on: 03/07/2024 GA by LMP 35 w + 0 d DOMINIQUE by LMP: 12/12/2024 Previous Ultrasound on: 04/27/2024 Type of prior assessment: GA GA at prior assessment date 7 w + 2 d GA by previous U/S 35 w + 0 d DOMINIQUE by previous Ultrasound: 12/12/2024 Assigned: based on the LMP, selected on 07/28/2024 Assigned GA 35 w + 0 d Assigned DOMINIQUE: 12/12/2024 General Evaluation ----- --------- Cardiac activity Present. FHR 148 bpm. Presentation: cephalic Placenta: Placental site: anterior, previously documented away from cervical os Amniotic Fluid Assessment ----- --------- Amount of AF: normal amount MVP 5.7 cm Biophysical Profile ----- --------- 2: breathing movements 2: Gross body movements 2: tone 2: Amniotic fluid volume 8/8 Biophysical profile score Maternal Structures ----- --------- Uterus Visualized Cervix Suboptimal Approach - Transabdominal Right Ovary Not visualized Left Ovary Not visualized Cul de Sac Suboptimal Impression ----- --------- Single viable intrauterine . BPP is 8/8. Amniotic fluid MVP is 5.7 cm. Recommendations ----- --------- Please see [facility] recommendations from prior clinical and/or ultrasound report documentation. Subsequent follow up or other follow up as clinically determined by primary OB provider unless otherwise specified by [facility]. Results forwarded to ordering provider so they can follow up with the patient as necessary. Procedure Note Edil Bullock MD - 11/07/2024 NAME: JEREMY BORDEN : 1995 SEX: F Accession Number: [id number] ORDERING PHYSICIAN: ANGELA GARDNER REFERRING PHYSICIAN: CLIFTON IVERSON Coding ----- --------- Procedures 65693: biophysical profile; without non-stresstesting Indication ----- --------- Abnormal finding on screening of mother-MOB + FOB CF carriers,Depression, Anxiety , Supervision of high risk , recent trauma to abdomen , prominent bowel , cysticfibrosis History ----- --------- OB History 1. Para 0 [id number] Current ----- --------- Cell free DNA low risk analysis Maternal Assessment ----- --------- Physical Exam Height 163 cm, 5 ft 4 in. Initial weight 86 kg, 190 lb.Initial BMI 32.61 kg/m Method ----- --------- Transabdominal ultrasound examination ----- --------- Dupont . Number of fetuses: 1 Dating ----- --------- LMP on: 03/07/2024 GA by LMP 35 w + 0 d DOMINIQUE by LMP: 12/12/2024 Previous Ultrasound on: 04/27/2024 Type of prior assessment: GA GA at prior assessment date 7 w + 2 d GA by previous U/S 35 w + 0 d DOMINIQUE by previous Ultrasound: 12/12/2024 Assigned: based on the LMP, selected on 07/28/2024 Assigned GA 35 w + 0 d Assigned DOMINIQUE: 12/12/2024 General Evaluation ----- --------- Cardiac activity Present. FHR 148 bpm. Presentation: cephalic Placenta: Placental site: anterior, previously documented away fromcervical os Amniotic Fluid Assessment ----- --------- Amount of AF: normal amount MVP 5.7 cm Biophysical Profile ----- --------- 2: breathing movements 2: Gross body movements 2: tone 2: Amniotic fluid volume 8/8 Biophysical profile score Maternal Structures ----- --------- Uterus Visualized Cervix Suboptimal Approach - Transabdominal Right Ovary Not visualized Left Ovary Not visualized Cul de Sac Suboptimal Impression ----- --------- Single viable intrauterine . BPP is 8/8. Amniotic fluid MVP is 5.7 cm. Recommendations ----- --------- Please see M recommendations from prior clinical and/or ultrasoundreport documentation. Subsequent follow up or other follow up as clinically determined byprimary OB provider unless otherwise specified by MFM. Results forwarded to ordering provider so they can follow up with thepatient as necessary. us Angela Gardner MD [facility] [place] ORDERABLES Final Resul t documented in this encounter Visit Diagnoses Diagnosis Supervision of high risk in third trimester [...] documented as of this encounter Care Teams Rubber Off Relationship Specialty Start Date End Date Armen Sánchez DO [address] [facility], [place] [address] PCP - General Family Medicine 08/25/23 documented as of this encounter
--- OUTSIDE RECORDS SUMMARY | 2024-11-13 17:14 | XMS_ITS | Clinical Summary ---
Demographics Address [address] [place] [address] Home Phone Work Phone Mobile Phone Email Address Email Address Preferred Language Irish Marital Status Single Baptism Affiliation Unknown Race White Ethnic Group Not or Lati no Author Organization [facility] Address [address] [facility], [address] [place] [address] Care Team Providers Care Second Watch Sergeant Name Role Phone Armen Sánchez Primary Care Provider [phone] Allergies Active Allergy Reactions Criticality Noted Date [...] today Need for prophylactic vaccin ation against xiphbrztns-oxsyyrn-ndqelxntl (DTP) 08/16/2018 Assessment & Plan (08/16/2018 4:03 [...] Hospital Encounter [facility] Delivery [address] [place] [address] Victorino Christie, Discharge Disposition: Home or Self [...] Personal/Family Self 1995 [address] [place] [address] [employer] [facility] Care Teams Second Watch Sergeant Relationship Specialty Start Date End Date Armen Sánchez DO [address] [place] [address] PCP - General Family Medicine 04/27/24
--- OUTSIDE RECORDS SUMMARY | 2024-11-13 17:14 | XMS_ITS | Encounter Summary ---
Author Organization [facility] Address [address] [place] [place] [address] Care Team Providers Care Metallurgical Laboratory Assistant Name Role Phone Emi Bronson [facility] Unavailable + [phone] Armen Sánchez MD Primary Care Provider + [phone] Encounter Details Date Type Department Care Team (Late st Contact Info) Description 09/21/2024 [facility] [address] [place] [phone] Curtis Paez DO [address] [place] [address] Social History Tobacco Use Types Packs/Day Years [...] on filedocumented in this encounter Care Teams Metallurgical Laboratory Assistant Relationship Specialty Start Date End Date Armen Sánchez MD [address] [place] [address] PCP - General Family Medicine 05/05/24 Emi Bronson [facility] [address] [place] [address] Behavioral Health 04/12/24 09/26/24 documented as of this encounter
--- OUTSIDE RECORDS SUMMARY | 2024-11-13 17:14 | XMS_ITS | Encounter Summary ---
Author Organization [facility] Address [address] [place] [address] Care Team Providers Care Senior Credit Analyst Name Role Phone Armen Sánchez MD Primary Care Provider Encounter Details Date Type Department Care Team (Late st Contact Info) Description 11/02/2024 Clinisync Result Encounter [facility] External Department Unsolicited Magan Paez, DO [address] [facility] [address] [place], [place] [id number] Social History Tobacco Use Types Packs/Day Years [...] Diagnosis Comments US OB BPP W NON-STRESS 11/02/2024 11:42 AM EDT documented in this encounter Results * US OB BPP W NON-STRESS (11/02/2024 11:42 AM EDT) Anatomical Region Laterality Modality Other 11/02/2024 11:4 2 AM EDT Narrative 11/02/2024 11:44 [place] [address] Ultrasound Report Signed Patient: SAPNA SERRANO MR#: [id number] : 1995 Acct:[id number] Age/Sex: 29 / F ADM Date: 11/02/24 Loc: [facility] 250-[address]: Magan Paez D.O. Ordering Physician: Magan Paez D.O. Date of Service: 11/02/24 Procedure(s): US OB BPP w non-stress Accession Number(s): [id number] cc: ARMEN SÁNCHEZ ; Magan Paez D.O. [address] [address] Patient Name: SAPNA SERRANO MRN: [facility]:[id number] date: 1995 Sex: F Assigned Patient Location: [facility] Current Patient Location: [facility] Accession/Order Number: [id number] Exam Date: 11/02/2024 11:40 Report Date: 11/02/2024 11:42 At the request of: MAGAN PAEZ DO Procedure: US OB BPP w non-stress Biophysical profile. Reason for exam: Cystic fibrosis COMPARISON: 10/26/2024 TECHNIQUE: Transabdominal imaging of the gravid uterus was obtained. FINDINGS: The cloth desizing range tender reports a BPP of 8 out of 8. NAYE is normal at 15.9 cm. heart rate 153 bpm. US/US OB BPP w non-stress IMPRESSION: BPP 8 out of 8. Impression dictated by: Hugo Atkins Jr., D.O. 11/02/2024 11:42 AM Dictation Location: [place] [address] Electronically authenticated by: [id number] Y Date: 11/02/2024 11:42 Dictated By: Hugo Atkins M.D. Signed By: 11/02/24 1144 DD/ 1142 TD/TT: Nuclear Medicine Specialist: Procedure Note Radiology, Radiologist, - 11/02/2024 [place] [address] Ultrasound Report Signed Patient: SAPNA SERRANO KMR#: [id number] : 1995Acct:[id number] Age/Sex: 29 FADM Date: 11/02/24 Loc: [facility] 250-[address]: Magan Paez D.O. Ordering Physician: Magan Paez D.O. Date of Service: 11/02/24 Procedure(s): US OB BPP w non-stress Accession Number(s): [id number] cc: ARMEN SÁNCHEZ ; Magan Paez D.O. The [place] [id number] Patient Name: SAPNA SERRANO MRN: [id number] date: 1995 Sex: F Assigned Patient Location: [facility] Current Patient Location: [facility] Accession/Order Number: [id number] Exam Date: 11/02/2024 11:40 Report Date: 11/02/2024 11:42 At the request of: MAGAN PAEZ DO Procedure: US OB BPP w non-stress Biophysical profile. Reason for exam: Cystic fibrosis COMPARISON: 10/26/2024 TECHNIQUE: Transabdominal imaging of the gravid uterus was obtained. FINDINGS: The cloth desizing range tender reports a BPP of 8 out of 8. NAYE is normal at15.9 cm. heart rate 153 bpm. US/US OB BPP w non-stress IMPRESSION: BPP 8 out of 8. Impression dictated by: Hugo Atkins Jr., D.O. 11/02/2024 11:42 AM Dictation Location: [place] [address] Electronically authenticated by: [id number] Y Date: 1:42 Dictated By: Hugo Atkins M.D. Signed By:11/02/24 1144 DD/ 1142 TD/TT: Nuclear Medicine Specialist: us Magan Jeannine DO [facility] Final Result documented in this encounter Visit Diagnoses Not on filedocumented in this encounter Care Teams Senior Credit Analyst Relationship Specialty Start Date End Date Armen Sánchez MD PCP - General Family Medicine 05/05/24 documented as of this encounter
--- OUTSIDE RECORDS SUMMARY | 2024-11-13 17:14 | XMS_ITS | Encounter Summary ---
Author Organization [facility] Address [address] [place] [address] Care Team Providers Care Reimbursement Liaison Name Role Phone Armen Sánchez MD Primary Care Provider Encounter Details Date Type Department Care Team (Late st Contact Info) Description 11/09/2024 Clinisync Result Encounter [facility] External Department Unsolicited Magan Paez, DO [address] [facility] [address] Te[address] [place], [place] [id number] Social History Tobacco Use Types Packs/Day Years [...] Diagnosis Comments US OB BPP W NON-STRESS 11/09/2024 11:37 AM EDT documented in this encounter Results * US OB BPP W NON-STRESS (11/09/2024 11:37 AM EDT) Anatomical Region Laterality Modality Other 11/09/2024 11:3 7 AM EDT Narrative 11/09/2024 11:40 [place] [address] Ultrasound Report Signed Patient: SAPNA SERRANO MR#: [id number] : 1995 Acct:[id number] Age/Sex: 29 / F ADM Date: 11/09/24 Loc: [facility] 250-[address]: Magan Paez D.O. Ordering Physician: Magan Paez D.O. Date of Service: 11/09/24 Procedure(s): US OB BPP w non-stress Accession Number(s): [id number] cc: ARMEN SÁNCHEZ ; Magan Paez D.O. [place] [address] Patient Name: SAPNA SERRANO MRN: [facility]:[id number] date: 1995 Sex: F Assigned Patient Location: [facility] Current Patient Location: [facility] Accession/Order Number: [id number] Exam Date: 11/09/2024 11:36 Report Date: 11/09/2024 11:37 At the request of: MAGAN PAEZ DO Procedure: US OB BPP w non-stress BIOPHYSICAL PROFILE: CLINICAL INFORMATION: CYSTIC FIBROSIS CARRIER O09.899 COMPARISON: 11/02/2024 There is a single live intrauterine gestation in cephalic presentation. The reported gestational age is 35 weeks 2 days. The heart rate [id number] beats per minute. FINDINGS: TONE: 1 or [...] greater than 2 cm [Y] 2/2 NAYE: 15.2 cm Total score: 8 US/US OB BPP w non-stress IMPRESSION: NORMAL BIOPHYSICAL PROFILE Impression dictated by: Laura Rahman M.D. 11/09/2024 11:37 AM Dictation Location: [place] [address] Electronically authenticated by: [id number] Y Date: 11/09/2024 11:37 Dictated By: Laura Rahman M.D. Signed By: 11/09/24 1140 DD/ 1137 TD/TT: Errand Runner: Procedure Note Radiology, Radiologist, MD - 11/09/2024 [place] [address] Ultrasound Report Signed Patient: SAPNA SERRANO KMR#: [id number] : 1995Acct:[id number] Age/Sex: Date: 11/09/24 Loc: [facility] 250-[address]: Magan Paez D.O. Ordering Physician: Magan Paez D.O. Date of Service: 11/09/24 Procedure(s): US OB BPP w non-stress Accession Number(s): [id number] cc: ARMEN SÁNCHEZ ; Magan Paez D.O. The [place] [address] Patient Name: SAPNA SERRANO MRN: [id number] date: 1995 Sex: F Assigned Patient Location: [facility] Current Patient Location: [facility] Accession/Order Number: [id number] Exam Date: 11/09/2024 11:36 Report Date: 11/09/2024 11:37 At the request of: MAGAN PAEZ DO Procedure: US OB BPP w non-stress BIOPHYSICAL PROFILE: CLINICAL INFORMATION: CYSTIC FIBROSIS CARRIER O09.899 COMPARISON: 11/02/2024 There is a single live intrauterine gestation in cephalic presentation.The reported gestational age is 35 weeks 2 days. The heart [id number] beats per minute. FINDINGS: TONE: 1 or [...] greater than 2 cm [Y] 2/2 NAYE: 15.2 cm Total score: 11/10 US/US OB BPP w non-stress IMPRESSION: NORMAL BIOPHYSICAL PROFILE Impression dictated by: Laura Rahman M.D. 11/09/2024 11:37 AM Dictation Location: [email or web address] Electronically authenticated by: [id number] Y Date: 1:37 Dictated By: Laura Rahman M.D. Signed By:11/09/24 1140 DD/ 1137 TD/TT: Errand Runner: us Magan Jeannine DO [facility] Final Result documented in this encounter Visit Diagnoses Not on filedocumented in this encounter Care Teams Reimbursement Liaison Relationship Specialty Start Date End Date Armen Sánchez MD PCP - General Family Medicine 05/05/24 documented as of this encounter
--- OUTSIDE RECORDS SUMMARY | 2024-11-13 17:14 | XMS_ITS | Encounter Summary ---
Author Organization [facility] Address [address] [place] [address] Care Team Providers Care Bowling Alley Refinisher Name Role Phone Emi Bronson [facility] Unavailable + [phone] Armen Sánchez MD Primary Care Provider + [phone] Encounter Details Date Type Department Care Team (Late st Contact Info) Description 09/21/2024 Abstract [facility] [address] [place] [id number] Curtis Paez DO [address] [facility] [place] [address] Social History Tobacco Use Types Packs/Day Years [...] on filedocumented in this encounter Care Teams Bowling Alley Refinisher Relationship Specialty Start Date End Date Armen Sánchez MD [address] [place] [address] PCP - General Family Medicine 05/05/24 Emi Bronson [facility] [address] [place] [address] Behavioral Health 04/12/24 09/26/24 documented as of this encounter
--- OUTSIDE RECORDS SUMMARY | 2024-11-13 17:14 | XMS_ITS | Encounter Summary ---
Author Organization [employer] Address [id number] [address] [place] [address] Care Team Providers Care Wind Commissioning Technician Name Role Phone SepidehArmen tristan Cedric [place] Primary Care Provider Encounter Details Date Type Department Care Team (Latest Contact Info) Description 11/05/2024 Travel Social History Tobacco Use Types Packs/Day Years Used Date Smoking Tobacco: Every Day Cigarettes 1 13.3 Started: 08/01/2011 Smokeless Tobacco: Never Alcohol Use Standard Drinks/Week Comments Not Currently 0 (1 standard drink = 0.6 oz pur e alcohol) [facility] Utilities Answer Date Recorded In [...] any clubs o r organizations such as restoration groups, unions, fraternal or athletic groups, or [...] Total Score 0 10/18/2024 [facility] - Occupational [...] Recorded Do you need help finding a [facility] career center and/or a training program? [...] Info) Description 11/14/2024 3:30 PM EDT Appointment [facility] [address] [place] [address] 11/17/2024 2:30 PM EDT [facility] [address] [place] [phone] Gemma Horne MD [address] [place] [address], [place] [address] 11/21/2024 2:00 PM EDT Appointment [facility] [address] [place] [address] 11/28/2024 11:00 AM EDT Appointment [facility] [address] [place] [address] 11/28/2024 11:30 AM EDT Office Visit Maternal- Medicine at [facility] [address] [place] [address] Edil Bullock MD [address] [address] documented as of this encounter Visit Diagnoses Not on filedocumented in this encounter Additional Health Concerns Assessment Noted Time PHQ-9 Depression Total Score: 0 10/19/19 25 4:00 AM EDT A Body Mass Index follow-up plan has been documented for the patient 08/10/2023 10:14 AM EDT documented as of this encounter Care Teams Wind Commissioning Technician Relationship Specialty Start Date End Date Armen Sánchez DO [address], [facility] [address] PCP - General Family Medicine 08/25/23 documented as of this encounter
--- OUTSIDE RECORDS SUMMARY | 2024-11-13 17:15 | XMS_ITS | Clinical Summary ---
Author Organization [employer] Address [id number] [address] [place] [address] Care Team Providers Care Photographic Double Name Role Phone MasoodArmen silverman Primary Care Provider Allergies Active Allergy Reactions Criticality Noted Date Comments Penicillins Other (See Comments) 08/10/2023 Yeast infections Medications FLUoxetine (PROzac) 20 mg capsule Take 1 capsule (20 mg total) by mouth in the morning. 30 capsule 3 4 Active Additional Information Patient not taking.Reported on 11/03/2024 magnesium oxide (MAGOX) 400 mg tablet Take 1 tablet (400 mg total) by mouth in the morning. Active PNV 19/iron ps,heme/folic/ dha ( MV & MIN ORAL) Take 1 tablet by mouth in the morning. Active polyethylene glycol (GLYCOLAX) 17 gram packet Take 17 g by mouth in the morning. Active venlafaxine XR (EFFEXOR XR) 37.5 mg 24 hr capsule Take 1 capsule (37.5 mg total) by mouth in the morning. Active Immunization, In Clinic,Indicat ions: care, first in third trimester Inject 0.5 mL into the appropriate muscle once for 1 dose. diph,pertuss(abel l),tet vac(PF) Sign this order to satisfy the OSBOP Positive ID requirements for immunization orders. 5 11/04/19 25 Active Problems Patient Care Coordination No te [...] Consult: []Palliative Care Consult: []SGM: []Life Connection: [][place]: [] MRI: []Nationwide: []U[facility]: []UH: [x]JO CHS: per Office Delivery Recommendation: [] Term at local hospital [x] Term at [facility] Surveillance Plan: [x] F/U Survey sched 08/25/24 at [facility] [x] Growth q _4_ weeks Sched 10/30/[address] Perez OV [] Dopplers q __ weeks [] Echo at __ weeks [] Cervical length q __ weeks [] TTTS q __ weeks [] Wkly NST/NAYE starting at __ weeks [] 2x/wk NST/NAYE starting at __ weeks Problem Noted Date Diagnosed Date care, first in third trimeste r 11/02/2024 Overview (11/02/2024): Tranasfer from hay [place] Dated by LMP c/w 7 week US Initial and 28 week labs--completed Anxiety and depression 11/02/2024 Chlamydia infection affecting , antepar cruz 11/02/2024 Overview (11/02/2024): 07/2024 Treated with negative test of reinfection Cystic fibrosis carrier, antepartum 10/18/2024 Overview (10/18/2024): [...] Rectal bleeding 08/26/2023 Vitamin D deficiency 08/16/2018 Estimated Date of Delivery Comme nts Yes 12/12/2024 Based on last me nstrual period of 03/07/2024, test negative 09/03/23 at 1242 Resolved Problems Problem Noted Date Diagnosed Date Resolved Date 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10/03 Encounters Date Type Department Care Team Description 11/07/2024 2:50 PM EDT - 11/07/2024 11:59 PM EDT Hospital Encounter [facility] [facility] US Imaging [address] [place] [address] Angela Perez MD Supervision of high risk in third trimester; Cystic fibrosis carrier, antepartum; Abnormal genetic test during ; Maternal care for other (suspected) abnormality and damage, gastrointestinal anomalies, not applicable or unspecified; Cystic fibrosis carrier; Family history of developmental delay; Family history of spina bifida Discharge Disposition: Home 11/05/2024 Travel 11/03/2024 1:00 PM EDT [facility] [address] [place] [address] Tiffany Easton MD GA: 34w3d 11/03/2024 Travel 10/30/2024 11:30 AM EDT Office Visit [facility]- [facility] at [facility] [address] [place] [address] Angela Perez MD Cystic fibrosis carrier, antepartum (Primary Dx); Maternal care for other (suspected) abnormality and damage, gastrointestinal anomalies, not applicable or unspecified; Overweight 10/30/2024 10:43 AM EDT - 10/30/2024 11:59 PM EDT Hospital Encounter [facility] US Imaging [address] [place] [address] Abnormal genetic test during ; Maternal care for other (suspected) abnormality and damage, gastrointestinal anomalies, not applicable or unspecified; Cystic fibrosis carrier Discharge Disposition: Home 10/30/2024 Orders Only [facility] [address] [place] [address] Jocy Maradiaga LPN Supervision of high risk in third trimester (Primary Dx); Cystic fibrosis carrier, antepartum; Abnormal genetic test during ; Maternal care for other (suspected) abnormality and damage, gastrointestinal anomalies, not applicable or unspecified; Cystic fibrosis carrier; Family history of developmental delay; Family history of spina bifida 10/30/2024 Travel 10/30/2024 Orders Only [facility] - Family Medicine [address] [place] [address] External, Scanning Provider 10/25/2024 Orders Only [facility] - Family Medicine [address] [place] [address] Ref Prov, Not In System 10/24/2024 Telephone [facility] at [facility] [address] [place] [address] Suresh Valencia MD 10/23/2024 1:45 PM EDT Support Visit [facility] at [facility] [address] [place] [address] Cystic fibrosis carrier, antepartum (Primary Dx); Supervision of high risk in third trimester; Overweight 10/23/2024 12:53 PM EDT - 10/23/2024 11:59 PM EDT Hospital Encounter [facility] US Imaging [address] [place] [phone] Abnormal genetic test during ; Maternal care for other (suspected) abnormality and damage, gastrointestinal anomalies, not applicable or unspecified; Cystic fibrosis carrier Discharge Disposition: Home 10/23/2024 Travel 10/19/2024 3:14 PM EDT - 10/19/2024 11:59 PM EDT Hospital Encounter [facility] US Imaging [address] [place] [address] Abnormal genetic test during ; Maternal care for other (suspected) abnormality and damage, gastrointestinal anomalies, not applicable or unspecified; Cystic fibrosis carrier Discharge Disposition: Home 10/19/2024 2:00 PM EDT Initial [facility] Services [address] [place] [address] Clifton Bond DO GA: 32w2d 10/18/2024 Travel 10/17/2024 Telephone [facility] Internal Medicine - Family Medicine [address] [place] [address] Bernadette Zhang CMA 10/13/2024 Orders Only [facility] [address] [place] [address] Miriam Joseph RN Abnormal genetic test during (Primary Dx); Maternal care for other (suspected) abnormality and damage, gastrointestinal anomalies, not applicable or unspecified; Cystic fibrosis carrier 10/12/2024 3:05 PM EDT - 10/12/2024 11:59 PM EDT Hospital Encounter [facility] US Imaging [address] [place] [address] Obesity in , antepartum; Supervision of high risk , antepartum Discharge Disposition: Home 10/11/2024 Travel 10/10/2024 Abstract [facility] Women[facility] Services [address] [place] [address] Lyric Sánchez RN 10/05/2024 3:13 PM EDT - 10/05/2024 11:59 PM EDT Hospital Encounter [facility] US Imaging [address] [place] [address] Supervision of high risk , antepartum; Obesity in , antepartum Discharge Disposition: Home 10/05/2024 Travel 09/29/2024 4:25 PM EDT Office Visit [facility] at [facility] [address] [place] [address] Edil Bullock MD 29 weeks gestation of (Primary Dx); Cystic fibrosis carrier; Maternal care for other (suspected) abnormality and damage, gastrointestinal anomalies, not applicable or unspecified 09/29/2024 2:41 PM EDT - 09/29/2024 11:59 PM EDT Hospital Encounter [facility] US Imaging [address] [place] [address] Suresh Valencia MD Cystic fibrosis carrier; Abnormal genetic test during Discharge Disposition: Home 09/29/2024 Travel 09/25/2024 Orders Only [facility] [address] [place] [address] Ref Prov, Not In System 09/15/2024 Telephone [facility] [address] [place] [address] Miriam Joseph RN 09/07/2024 10:30 AM EDT Office Visit [facility] [address] [place] [address] [address] [place] [address] Rashida Silva MD 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); Encounter for consultation 09/07/2024 Orders Only [facility] [address] [place] [address] Miriam Joseph RN 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); Abnormal genetic test during 09/05/2024 Travel 08/25/2024 Travel 08/18/2024 Orders Only [facility] [place] [address] [place] [address] Barbra Samuel, TIMOTHY 08/18/2024 Orders Only [facility] [address] [facility] [place] [address] Barbra Samuel RN 08/17/2024 Telephone [facility] [address] [place] [address] Rachel Rodriguez LGC from Last 3 Months Immunizations Immunization Administration Dates Next Due Tdap 11/03/2024,08/16/2018 Family History Medical History Relation Name Comments [...] drink = 0.6 oz pur e alcohol) [facility] Utilities Answer Date Recorded In the past 12 months has [employer], gas, oil, or water [employer] threatened to shut off services in your [...] often do you attend chur ch or synagogue services? Never 01/27/2024 Do you belong to any clubs o r organizations such as mu-ism groups, unions, fraternal or athletic groups, or [...] Recorded Do you need help finding a [employer] career center and/or a training program? [...] EDT Inhaled Oxygen Concentration - - Weight 97 kg (213 lb 12.8 oz) 11/03/2024 1:18 PM EDT Height 162.6 cm (5' 4.02 ) 10/30/2024 11:15 AM E DT Body Mass Index 36.68 10/30/2024 11:15 AM EDT Plan of Treatment Upcoming Encounters Date Type Department Care Team (Late st Contact Info) Description 11/14/2024 3:30 PM EDT Appointment [facility] US Imaging [address] [place] [address] 11/17/2024 2:30 PM EDT [facility]ine [facility] [address] [place] [phone] Gemma Horne MD [address] [place] [address], [address] [address] 11/21/2024 2:00 PM EDT Appointment [facility] US Imaging [address] [place] [address] 11/28/2024 11:00 AM EDT Appointment [facility] US Imaging [address] [place] [address] 11/28/2024 11:30 AM EDT Office Visit [facility]- [facility] at [facility] [address] [place] [address] Edil Bullock MD [address] [place] [address] Health Maintenance Due Date Last Done Comments COVID-19 Vaccine (2023-2 5 season) 2023 12/11/2020, 11/20/2020 Adult BMI Follow Up Plan 08/09/2024 08/10/2023 Influenza Vaccine 12/04/2024 Tobacco Counseling 02/24/2025 08/25/2023 Depression Screening 10/18/2025 10/18/2024 Adult BMI Screening 11/03/2025 11/03/2024 Tobacco Screening 11/03/2025 11/03/2024 Pap Smear 07/07/2027 07/06/2024, 040 06/2024, 07/06/2024, Additional history exists DTaP,Tdap and Td Vaccines (8 - Td or Tdap) 11/03/2034 11/03/2024, 08/16/2018, 11/06/1998, Additional history exists Medical Devices Not on file Procedures Procedure Name Priority Date/Time Associated Diagnosis Comments US [facility] AMNIOTIC FLUID VOLUME ASSESSMENT Routine 11/07/2024 3:23 PM EDT Supervision of high risk in third trimester Cystic fibrosis carrier, antepartum Abnormal genetic test during Maternal care for other (suspected) abnormality and damage, gastrointestinal anomalies, not applicable or unspecified Cystic fibrosis carrier Family history of developmental delay Family history of spina bifida CHLAMYDIA/GONORRHOEA E BY PCR, URINE Routine 11/03/2024 2:16 PM EDT care, first in third trimester History of maternal Chlamydia infection, currently in third trimester US MFM OB FOLLOW-UP, 1 FETUS Routine [...] to Health Maintenance Results * US MFM AMNIOTIC FLUID VOLUME ASSESSMENT (11/07/2024 3:23 PM EDT) Only the most recent of8 resultswithin the time period is included. Anatomical Region Laterality Modality OB-PCAT INSTRUCTOR Ultrasound 11/07/2024 3:02 PM EDT Narrative 11/07/2024 6:10 PM EDT NAME: JEREMY BORDEN : 1995 SEX: F Accession Number: [id number] ORDERING PHYSICIAN: ANGELA PEREZ REFERRING PHYSICIAN: CLIFTON BOND Coding ----- --------- Procedures 53672: biophysical profile; without non-stress testing Indication ----- --------- Abnormal finding on screening of mother-MOB + FOB CF carriers, Depression, Anxiety , Supervision of high risk , recent trauma to abdomen , prominent bowel , cystic fibrosis History ----- --------- OB History 1. Para 0 [id number] Current ----- --------- Cell free DNA low [...] 5.7 cm. Recommendations ----- --------- Please see [facility] recommendations from prior clinical and/or ultrasound report documentation. Subsequent follow up or other follow up as clinically determined by primary OB provider unless otherwise specified by M. Results forwarded to ordering provider so they can follow up with the patient as necessary. Procedure Note Edil Bullock MD - 11/07/2024 NAME: JEREMY BORDEN : 1995 SEX: F Accession Number: [id number] ORDERING PHYSICIAN: ANGELA PEREZ REFERRING PHYSICIAN: CLIFTON BOND Coding ----- --------- Procedures [id number]: biophysical profile; without non-stresstesting Indication ----- --------- Abnormal finding on screening of mother-MOB + FOB CF carriers,Depression, Anxiety , Supervision of high risk , recent trauma to abdomen , prominent bowel , cysticfibrosis History ----- --------- OB History 1. Para 0 [id number] Current ----- --------- Cell free DNA low [...] movements 2: tone 2: Amniotic fluid volume 11/10 Biophysical profile score Maternal Structures ----- --------- Uterus Visualized Cervix Suboptimal Approach - Transabdominal Right Ovary Not visualized Left Ovary Not visualized Cul de Sac Suboptimal Impression ----- --------- Single viable intrauterine . BPP is 8/8. Amniotic fluid MVP is 5.7 cm. Recommendations ----- --------- Please see [facility] recommendations from prior clinical and/or ultrasoundreport documentation. Subsequent follow up or other follow up as clinically determined byprimary OB provider unless otherwise specified by [facility]. Results forwarded to ordering provider so they can follow up with thepatient as necessary. us Angela Perez MD [facility] ORDERABLES Final Resul t * Chlamydia/Gonorrhoeae by PCR, Urine (11/03/2024 2:16 PM EDT) GONORRHOEAE PCR, U Negative Negative 11/05/2024 10:16 AM EDT [facility] Comment:Neisseria gonorrhoea e not detected by nucleic acid amplification. This does not exclude the possibility of infection because results are dependent on adequate specimen collection. CHLAMYDIA PCR, U Negative Negative 11/05/2024 10:16 AM EDT [facility] Comment:Chlamydia trachomati s not detected by nucleic acid amplification. This does not exclude the possibility of infection because results are dependent on adequate specimen collection. Urine Urine / Unknown 11/03/2024 2 :16 PM EDT 11/03/2024 2:16 PM EDT us Tiffany Easton MD MICROBIOLOGY - GENERAL O RDERABLES Final Result Performing Organization Address City/[facility]/ZIP Co de Phone Number [facility] [address] [place] [address], [place] [phone] * nonstress test - Maternal Medicine (10/24/2024 [...] 8:28 AM EDT) Anatomical Region Laterality Modality OB-PCAT INSTRUCTOR Ultrasound us Not In System Ref Prov [...] ORDERABLES Leti l Result MANUALLY TRANSCRIBED RESULTS * CBC without diff (08/30/2024) Hemoglobin 13.0 MANUALLY TRANSCRIBED RESULTS Hematocrit 38.8 MANUALLY TRANSCRIBED RESULTS Rbc Mcv (Fl) By Automated Count 89.8 MANUALLY TRANSCRIBED RESULTS Platelets 272 MANUALLY TRANSCRIBED RESULTS Blood Venous blood / Unknown us Not In System Ref Prov LAB BLOOD ORDERABLES Leti l Result MANUALLY TRANSCRIBED RESULTS * High risk HPV w/faustina (07/06/2024) Pathologist [facility] Other High Risk Hpv NEGATIVE MANUALLY TRANSCRIBED RESULTS Thin Prep Cervix uteri structure / Unknown us Not In System Ref Prov LAB BLOOD ORDERABLES Leti l Result Performing Organization Address City/State/[facility] Co de Phone Number MANUALLY TRANSCRIBED RESULTS from Last 3 Months or Most Recently Relevant to Health Maintenance Insurance * Guarantor: Sapna Serrano Account Type Relation to Patient Date of Phone Billing Address Personal/Family Self 1995 [address] [place] [address] [employer] Care Teams Photographic Double Relationship Specialty Start Date End Date Armen Sánchez DO [address], [place] [address] PCP - General Family Medicine 08/25/23
--- OUTSIDE RECORDS SUMMARY | 2024-11-13 17:15 | XMS_ITS | Encounter Summary ---
Author Organization [employer] Address [id number] [address] [place] [address] Care Team Providers Care Corporate Responsibility Officer Name Role Phone SepidehArmen tristan Cedric [place] Primary Care Provider Encounter Details Date Type Department Care Team (Latest Contact Info) Description 11/03/2024 Travel Social History Tobacco Use Types Packs/Day Years Used Date Smoking Tobacco: Every Day Cigarettes 1 13.3 Started: 08/01/2011 Smokeless Tobacco: Never Alcohol Use Standard Drinks/Week Comments Not Currently 0 (1 standard drink = 0.6 oz pur e alcohol) [facility] Utilities Answer Date Recorded In [...] any clubs o r organizations such as quaker groups, unions, fraternal or athletic groups, or [...] Answer Date Recorded Total Score 0 10/18/2024 [facility] - [...] Info) Description 11/14/2024 3:30 PM EDT Appointment [facility] US Imaging [address] [place] [address] 11/17/2024 2:30 PM EDT [facility] [address] [place] [address] Gemma Horne MD [address] [place] [address], [place] [address] 11/21/2024 2:00 PM EDT Appointment [facility] US Imaging [address] [place] [address] 11/28/2024 11:00 AM EDT Appointment [facility] US Imaging [address] [place] [address] 11/28/2024 11:30 AM EDT Office Visit Maternal- Medicine at [facility] [address] [place] [address] Edil Bullock MD [address] [address] documented as of this encounter Visit Diagnoses Not on filedocumented in this encounter Additional Health Concerns Assessment Noted Time PHQ-9 Depression Total Score: 0 10/19/19 25 4:00 AM EDT A Body Mass Index follow-up plan has been documented for the patient 08/10/2023 10:14 AM EDT documented as of this encounter Care Teams Corporate Responsibility Officer Relationship Specialty Start Date End Date Armen Sánchez DO [address], [facility] [place] [address] PCP - General Family Medicine 08/25/23 documented as of this encounter
--- OUTSIDE RECORDS SUMMARY | 2024-11-13 17:15 | XMS_ITS | Encounter Summary ---
Author Organization [facility] [employer] Address [facility] [id number] [address] [place] [address] Care Team Providers Care Industrial Radiographer Name Role Phone MasoodArmen silverman Primary Care Provider Encounter Details Date Type Department Care Team (Late st Contact Info) Description 10/25/2024 Orders Only [facility] - Family Medicine [address] [place] [address] Ref Prov, [place] [address] Social History Tobacco Use Types Packs/Day Years Used Date Smoking Tobacco: Every Day Cigarettes 1 13.3 Started: 08/01/2011 Smokeless Tobacco: Never Alcohol Use Standard Drinks/Week Comments Not Currently 0 (1 standard drink = 0.6 oz pur e alcohol) [facility] Utilities Answer Date Recorded In the past 12 months has [employer], gas, oil, or water company threatened to [...] often do you attend chur ch or anglican services? Never 01/27/2024 Do you belong to [...] Answer Date Recorded Total Score 0 10/18/2024 [facility] - [...] Do you need help finding a [facility] career [facility] and/or a training [...] Info) Description 11/14/2024 3:30 PM EDT Appointment [facility] US Imaging [address] [place] [address] 11/17/2024 2:30 PM EDT [facility] [address] [place] [address] Gemma Horne MD [address] [place] [address], [place] [address] 11/21/2024 2:00 PM EDT Appointment [facility] US Imaging [address] [place] [address] 11/28/2024 11:00 AM EDT Appointment [facility] US Imaging [address] [place] [address] 11/28/2024 11:30 AM EDT Office Visit Maternal- Medicine at [facility] [address] [place] [address] Edil Bullock MD [address] [address] documented as of this encounter Procedures Procedure [...] as of this encounter Care Teams Industrial Radiographer Relationship Specialty Start Date End Date Armen Sánchez DO [address] [facility], [place] [address] PCP - General Family Medicine 08/25/23 documented as of this encounter
--- OUTSIDE RECORDS SUMMARY | 2024-11-13 17:15 | XMS_ITS | Encounter Summary ---
[facility] Organization [id number] [address] [place] [address] Care Team Providers Care Beach Lifeguard Name Role Phone PrincessArmen Cedric [place] Primary Care Provider Encounter Details Date Type Department Care Team (Late st Contact Info) Description 08/26/2023 Orders Only [facility] Internal Medicine - Family Medicine [address] [place] [address] Scotty Mahoney DO [address] [place] [address] Rectal bleeding (Primary Dx) Social History Tobacco Use Types Packs/Day Years Used Date Smoking Tobacco: Every Day Cigarettes 1 13.3 Started: 08/01/2011 Smokeless Tobacco: Never Alcohol Use Standard Drinks/Week Comments Not Currently 0 (1 standard drink = 0.6 oz pur e alcohol) [facility] Utilities Answer Date Recorded In the past 12 months has dot[employer], gas, oil, or water [employer] threatened to shut off services in [...] week 08/25/2023 How often do you attend [facility] or taoism services? Never 08/25/2023 Do you belong to any clubs o r organizations such as presybeterian groups, unions, fraternal or athletic groups, or [...] Answer Date Recorded Total Score 6 08/25/2023 [facility] - [...] Recorded Do you need help finding a [facility] career center and/or a training [...] EDT Appointment [facility] Imaging [address] [place] [address] 11/17/2024 2:30 PM EDT [facility] [address] [place] [address] Gemma Horne MD [address] [place] [address], [place] [address] 11/21/2024 2:00 PM EDT Appointment [facility] [address] [place] [address] 11/28/2024 11:00 AM EDT Appointment [facility] Imaging [address] [place] [address] 11/28/2024 11:30 AM EDT Office Visit M[facility]- Medicine at [facility] [address] [place] [address] Edil Bullock MD [address] [address] documented as of this encounter Visit Diagnoses Diagnosis Rectal bleeding- Primary Hemorrhage of rectum and anus documented in this encounter Additional Health Concerns Assessment Noted Time PHQ-9 Depression Total Score: 6 08/25/19 9:30 AM EDT A Body Mass Index follow-up plan has been documented for the patient 08/10/2023 10:14 AM EDT documented as of this encounter Care Teams Beach Lifeguard Relationship Specialty Start Date End Date Armen Sánchez DO [address] [facility], [place] [address] PCP - General Family Medicine 08/25/23 documented as of this encounter
--- OUTSIDE RECORDS SUMMARY | 2024-11-13 17:15 | XMS_ITS | Encounter Summary ---
Author Organization [facility] Address [address] [place] [address] Care Team Providers Care Home Based Assistant Name Role Phone Emi Bronson [facility] Unavailable + [phone] Armen Sánchez MD Primary Care Provider + [phone] Encounter Details Date Type Department Care Team (Late st Contact Info) Description 12/27/2023 [facility] [address] [place] [phone] Emi Bronson, [facility] [address] [place] [address] Social History Tobacco Use Types Packs/Day Years [...] on filedocumented in this encounter Care Teams Home Based Assistant Relationship Specialty Start Date End Date Armen Sánchez MD [address] [place] [address] PCP - General Family Medicine 05/05/24 Eim Bronson [facility] [address] [facility] [address] [place] [id number] Behavioral Health 04/12/24 09/26/24 documented as of this encounter
--- OUTSIDE RECORDS SUMMARY | 2024-11-13 17:15 | XMS_ITS | Encounter Summary ---
Author Organization [facility] Address [address] [place] [address] Care Team Providers Care Hand Model Name Role Phone Armen Sánchez MD Primary Care Provider [phone] Encounter Details Date Type Department Care Team (Late st Contact Info) Description 10/09/2024 Abstract [facility] [address] [place] [address] [place] [phone] Reanna Fernandez MA Social History Tobacco Use [...] on filedocumented in this encounter Care Teams Hand Model Relationship Specialty Start Date End Date Armen Sánchez MD PCP - General Family Medicine 05/05/24 documented as of this encounter
--- OUTSIDE RECORDS SUMMARY | 2024-11-13 17:15 | XMS_ITS | Encounter Summary ---
Author Organization [facility] Address [address] [place] [address] Care Team Providers Care Edge Inker Uppers Name Role Phone Armen Sánchez MD Primary Care Provider Encounter Details Date Type Department Care Team (Late st Contact Info) Description 10/03/2024 Abstract [facility] [address] [address] Curtis Paez DO [address] [place], [place] [id number] Social History Tobacco Use Types Packs/Day Years [...]
--- OUTSIDE RECORDS SUMMARY | 2024-11-13 17:15 | XMS_ITS | Clinical Summary ---
Author Organization [facility] Address [address] [place] [address] Care Team Providers Care Circuit Rider Name Role Phone Armen Sánchez MD Primary [...] infection 10/03/2024 Placental abnormality in third trimester ([facility]) 09/21/2024 History of loop electrosurgi ledy [...] Encounters Date Type Department Care Team Description 11/09/2024 Clinisync Result Encounter NOMS External Department Unsolicited Magan Paez, DO 11/02/2024 Clinisync Result Encounter NOMS External Department Unsolicited Magan Paez, DO 11/01/2024 Clinisync Result Encounter NOMS External Department Unsolicited Jocy Vaughn PA 10/26/2024 Clinisync Result Encounter NOMS External Department Unsolicited Magan Paez, DO 10/19/2024 Clinisync Result Encounter NOMS External Department Unsolicited Magan Paez, DO 10/17/2024 2:20 PM EDT Routine [facility] [place] [address] [place] [address] Jocy Vaughn PA Third trimester ([facility]); 32 weeks gestation of ([facility]); H/O LEEP; Cystic fibrosis carrier, antepartum ([facility]); HSV infection 10/17/2024 Bamboo flowsheet [facility] [place] [address] [place] [address] Jocy Vaughn PA 10/16/2024 Travel 10/12/2024 Clinisync Result Encounter NOMS External Department Unsolicited Magan Paez, DO 10/09/2024 Abstract [facility] [place] [address] [place] [address] Reanna Fernandez MA 10/04/2024 Clinisync Result Encounter NOMS External Department Unsolicited Magan Paez, DO 10/04/2024 Telephone [facility] [place] [address] [place] [address] Magan Paez, DO 10/03/2024 8:40 AM EDT Routine [facility] [address] [place] [address] Magan Paez, Third trimester ([facility]); Cystic fibrosis carrier, antepartum ([facility]); Moderate episode of recurrent major depressive disorder (HCC); History of loop electrosurgical excision procedure (LEEP) of cervix affecting , antepartum ([facility]); HSV infection; 30 weeks gestation of ([facility]); Maternal care for other (suspected) abnormality and damage, gastrointestinal anomalies, not applicable or unspecified ([facility]) 10/03/2024 Telephone [facility] [address] [place] [address] Laura Godwin LPN 10/03/2024 Abstract [facility] [address] [place] [address] Magan Paez, DO 09/25/2024 Clinisync Result Encounter NOMS External Department Unsolicited Magan Paez, DO 09/21/2024 Abstract [facility] [address] [place] [address] Magan Paez, DO 09/21/2024 Abstract [facility] [address] [place] [address] Magna Paez, DO 09/21/2024 Clinisync Result Encounter NOMS External Department Unsolicited Magan Paez, DO 09/21/2024 Clinisync Result Encounter NOMS External Department Unsolicited Magan Paez, DO 09/21/2024 Orders Only [facility] [address] [place] [address] Magan Paez, DO Placental abnormality in third trimester ([facility]); Cystic fibrosis carrier, antepartum ([facility]); History of loop electrosurgical excision procedure (LEEP) of cervix affecting , antepartum ([facility]) 09/21/2024 Telephone [facility] [address] [place] [address] Antoinette Jackman, BACTERIOLOGIST PHARMACEUTICAL 09/19/2024 Telephone [facility] [address] [place] [address] Tato Laura, BACTERIOLOGIST PHARMACEUTICAL 09/18/2024 3:40 PM EDT Routine [facility] GEN [address] [place] [address] Magan Paez DO Anxiety, generalized (Primary Dx); Second trimester ([facility]); 27 weeks gestation of ([facility]); Cystic fibrosis carrier, antepartum ([facility]) 09/18/2024 Bamboo flowsheet [facility] [address] [place] [address] Magan Paez DO 09/18/2024 Travel 08/30/2024 9:50 AM EDT Routine [facility] [address] [place] [address] Jocy Vaughn PA Second trimester ([facility]); 25 weeks gestation of ([facility]) 08/30/2024 Clinisync Result Encounter NOMS External Department Unsolicited Magan Paez DO 08/30/2024 Bamboo flowsheet [facility] [address] [place] [address] Jocy Vaughn PA 08/14/2024 10:30 AM EDT Procedure Visit [facility] [address] [place] [address] Magan Paez DO Cystic fibrosis carrier, antepartum [...] BPP W NON-STRESS 11/09/2024 11:37 AM EDT US OB BPP W NON-STRESS 11/02/2024 11:42 AM EDT US OB CERVICAL LENGTH 11/01/2024 11:35 AM EDT US OB BPP W NON-STRESS 10/26/2024 4:52 PM EDT US OB BPP W NON-STRESS 10/19/2024 11:27 AM EDT US OB BPP W NON-STRESS 10/12/2024 8:55 PM EDT US OB PLACENTA 10/04/2024 9:50 AM EDT POCT URINALYSIS DIPSTICK Routine 10/03/2024 9:04 AM EDT Third trimester ([facility]) US OB BPP W NON-STRESS 09/25/2024 8:08 AM EDT US OB PLACENTA 09/21/2024 2:53 PM EDT US OB CERVICAL LENGTH 09/21/2024 2:40 PM EDT GLUCOSE 1 HOUR Routine 08/30/2024 11:28 AM EDT ALL CBC WITH AUTO DIFF Routine 08/30/2024 11:28 AM EDT POCT URINALYSIS DIPSTICK Routine 08/30/2024 11:24 AM EDT Second trimester ([facility]) COLPOSCOPY Routine 08/14/2024 2:19 PM EDT LGSIL on Pap smear of cervix from Last 3 Months Results * US OB BPP W NON-STRESS (11/09/2024 11:37 AM EDT) Only the most recent of6 resultswithin the time period is included. Anatomical Region Laterality Modality Other 11/09/2024 11:3 7 AM EDT Narrative 11/09/2024 11:40 [place] [address] Ultrasound Report Signed Patient: MICHI SERRANO MR#: [id number] : 1995 Acct:[id number] Age/Sex: 29 / F ADM Date: 11/09/24 Loc: [facility] 250-[address]: Magan Paez D.O. Ordering Physician: Magan Paez D.O. Date of Service: 11/09/24 Procedure(s): US OB BPP w non-stress Accession Number(s): [id number] cc: ARMEN SÁNCHEZ Corey D.O. [place] [id number] Patient Name: MICHI SERRANO MRN: [facility] HOME:[id number] date: 1995 Sex: F Assigned Patient Location: [facility] Current Patient Location: [facility] Accession/Order Number: [id number] Exam Date: 11/09/2024 11:36 Report Date: 11/09/2024 11:37 At the request of: MAGAN PAEZ DO Procedure: US OB BPP w non-stress BIOPHYSICAL PROFILE: CLINICAL INFORMATION: CYSTIC FIBROSIS CARRIER O09.899 COMPARISON: 11/02/2024 There is a single live intrauterine gestation in cephalic presentation. The reported gestational age is 35 weeks 2 days. The heart rate [id number] beats per minute. FINDINGS: TONE: 1 or [...] Rahman M.D. 11/09/2024 11:37 AM Dictation Location: [place] [address] Electronically authenticated by: [id number] Y Date: 11/09/2024 11:37 Dictated By: Laura Rahman M.D. Signed By: 11/09/24 1140 DD/ 1137 TD/TT: Hydro Plant Site Manager: Procedure Note Radiology, Radiologist, - 11/09/2024 [place] [address] Ultrasound Report Signed Patient: MICHI SERRANO KMR#: [id number] : 1995Acct:[id number] Age/Sex: 29 / FADM Date: 11/09/24 Loc: [facility] 250-[address]: Magan Paez D.O. Ordering Physician: Magan Paez D.O. Date of Service: 11/09/24 Procedure(s): US OB BPP w non-stress Accession Number(s): [id number] cc: ARMEN SÁNCHEZ ; Magan Paez D.O. [address] [address] Patient Name: MICHI SERRANO MRN: [facility] HOME:[id number] date: 1995 Sex: F Assigned Patient Location: [facility] Current Patient Location: [facility] Accession/Order Number: [id number] Exam Date: 11/09/2024 11:36 Report Date: 11/09/2024 11:37 At the request of: MAGAN PAEZ DO Procedure: US OB BPP w non-stress BIOPHYSICAL PROFILE: CLINICAL INFORMATION: CYSTIC FIBROSIS CARRIER O09.899 COMPARISON: 11/02/2024 There is a single live intrauterine gestation in cephalic presentation.The reported gestational age is 35 weeks 2 days. The heart ouhdclyfqabm483 beats per minute. FINDINGS: TONE: 1 or [...] Rahman M.D. 11/09/2024 11:37 AM Dictation Location: [place] [address] Electronically authenticated by: [id number] Y Date: 1:37 Dictated By: Laura Rahman M.D. Signed By:11/09/24 1140 DD/ 1137 TD/TT: Hydro Plant Site Manager: us Magan Paez DO [facility] Final Result * US OB CERVICAL LENGTH (11/01/2024 11:35 AM EDT) Only the most recent of2 resultswithin the time period is included. Anatomical Region Laterality Modality Other 11/01/2024 11:3 5 AM EDT Narrative 11/01/2024 11:37 [place] [address] Ultrasound Report Signed Patient: MICHI SERRANO MR#: [id number] : 1995 Acct:[id number] Age/Sex: 29 / F ADM Date: 11/01/24 Loc: US Attending Dr: Jocy Vaughn Ordering Physician: Jocy Vaughn Date of Service: 11/01/24 Procedure(s): US OB cervical length Accession Number(s): [id number] cc: Jocy Vaughn; ARMEN SÁNCHEZ [place] [address] Patient Name: MICHI SERRANO MRN: [id number] date: 1995 Sex: F Assigned Patient Location: US Current Patient Location: US Accession/Order Number: [id number] Exam Date: 11/01/2024 11:33 Report Date: 11/01/2024 11:35 At the request of: JOCY VAUGHN Procedure: US OB cervical length Cervical length ultrasound. Reason for exam: Third trimester . TECHNIQUE: Transvaginal imaging of the cervix was obtained. FINDINGS: Cervical length measures 4.1 cm without evidence of funneling. heart rate 128 bpm. US/US OB cervical length Impression: Normal cervical length without evidence of funneling. Impression dictated by: Hugo Atkins Jr., D.O. 11/01/2024 11:35 AM Dictation Location: [place] [address] Electronically authenticated by: [id number] Y Date: 11/01/2024 11:35 Dictated By: Hugo Atkins M.D. Signed By: 11/01/24 1137 DD/ 1135 TD/TT: Hydro Plant Site Manager: Procedure Note Radiology, Radiologist, MD - 11/01/2024 [place] [address] Ultrasound Report Signed Patient: MICHI SERRANO KMR#: [id number] : 1995Acct:[id number] Age/Sex: 29 / FADM Date: 11/01/24 Loc: US Attending Dr: Jocy Vaughn Ordering Physician: Jocy Vaughn Date of Service: 11/01/24 Procedure(s): US OB cervical length Accession Number(s): [id number] cc: Jocy Vaughn; ARMEN SÁNCHEZ [place] [address] Patient Name: MICHI SERRANO MRN: [id number] date: 1995 Sex: F Assigned Patient Location: US Current Patient Location: US Accession/Order Number: [id number] Exam Date: 11/01/2024 11:33 Report Date: 11/01/2024 11:35 At the request of: JOCY VAUGHN Procedure: US OB cervical length Cervical length ultrasound. Reason for exam: Third trimester . TECHNIQUE: Transvaginal imaging of the cervix was obtained. FINDINGS: Cervical length measures 4.1 cm without evidence of funneling. heart rate 128 bpm. US/US OB cervical length Impression: Normal cervical length without evidence of funneling. Impression dictated by: Hugo Atkins Jr., D.O. 11/01/2024 11:35 AM Dictation Location: [place] [address] Electronically authenticated by: [id number] Y Date: 1:35 Dictated By: Hugo Atkins M.D. Signed By:11/01/24 1137 DD/ 1135 TD/TT: Hydro Plant Site Manager: us Jocy YOUNG [facility] Final Result * US OB PLACENTA (10/04/2024 9:50 AM EDT) Only the most recent of2 resultswithin the time period is included. Anatomical Region Laterality Modality Other 10/04/2024 9:50 AM EDT Narrative 10/04/2024 9:52 AM EDT [place] [id number] Ultrasound Report Signed Patient: MICHI SERRANO MR#: [id number] : 1995 Acct:[id number] Age/Sex: 29 / F ADM Date: 09/24/24 Loc: [facility] Attending Dr: Magan Paez D.O. Ordering Physician: Magan Paez D.O. Date of Service: 09/24/24 Procedure(s): US OB placenta Accession Number(s): [id number] cc: ARMEN SÁNCHEZ ; Magan Paez D.O. [place] [address] Patient Name: MICHI SERRANO MRN: [id number] date: 1995 Sex: F Assigned Patient Location: [facility] Current Patient Location: US Accession/Order Number: [id number] Exam Date: 10/04/2024 09:16 Report Date: 10/04/2024 [...] Rahman M.D. 10/04/2024 9:50 AM Dictation Location: [place] [address] Electronically authenticated by: [id number] Y Date: 10/04/2024 09:50 Dictated By: Laura Rahman M.D. Signed By: 10/04/24951 DD/ TD/TT: Hydro Plant Site Manager: Procedure Note Radiology, Radiologist, - 10/04/2024 [place] [address] Ultrasound Report Signed Patient: MICHI SERRANO KMR#: [id number] : 1995Acct:[id number] Age/Sex: 29 / FADM Date: 09/24/24 Loc: [facility] Attending Dr: Magan Paez D.O. Ordering Physician: Magan Paez D.O. Date of Service: 09/24/24 Procedure(s): US OB placenta Accession Number(s): [id number] cc: ARMEN SÁNCHEZ ; Magan Paez D.O. [place] [id number] Patient Name: MICHI SERRANO MRN: [facility] HOME:[id number] date: 1995 Sex: F Assigned Patient Location: [facility] Current Patient Location: US Accession/Order Number: [id number] Exam Date: 10/04/2024 09:16 Report Date: 10/04/2024 [...] Rahman M.D. 10/04/2024 9:50 AM Dictation Location: [place] [address] Electronically authenticated by: [id number] Y Date: 9:50 Dictated By: Laura Rahman M.D. Signed By:10/04/24 0952 DD/ TD/TT: Hydro Plant Site Manager: us Magan Jeannine DO [facility] Final [...] Urine 10/03/2024 9:04 AM EDT us Magan Jeannine DO POINT OF CARE TEST ENTER/EDIT OR DERABLES Final Result * GLUCOSE 1 HOUR (08/30/2024 11:28 AM EDT) GLUCOSE 1 HOUR 66 <130 mg/dL [facility] 08/30/2024 11:2 8 AM EDT 08/30/2024 11:29 AM EDT Narrative [facility] - 08/30/2024 12:05 PM EDT us Magan Jeannine DO LAB BLOOD ORDERABLES Final Resul t [facility] * (ABNORMAL) ALL CBC WITH AUTO DIFF (08/30/2024 11:28 AM EDT) [facility] TB WBC 11.8(H) 4.0 - 11.0 10 [...] - 08/30/2024 11:34 AM EDT us Magan Jeannine DO [facility] Final Result [facility] * Colposcopy (08/14/2024 2:19 PM EDT) Magan [...] Personal/Family Self 1995 [address] [place] [address] [facility] Care Teams Circuit Rider Relationship Specialty Start Date End Date Armen Sánchez MD PCP - General Family Medicine 05/05/24
--- OUTSIDE RECORDS SUMMARY | 2024-11-13 17:15 | XMS_ITS | Encounter Summary ---
Author Organization [facility] Address [address] [place] [address] Care Team Providers Care Director Of Corporate Communications Name Role Phone Aiyana, Emi Munson [facility] Unavailable + [phone] Armen Sánchez MD Primary Care Provider + [phone] Encounter Details Date Type Department Care Team (Late st Contact Info) Description 07/11/2024 Orders Only [facility] OBGYClarisa [address] [address] Mary Quinn LPN [address] [place] [address] Social History Tobacco Use Types [...] on filedocumented in this encounter Care Teams Director Of Corporate Communications Relationship Specialty Start Date End Date Armen Sánchez MD [address] [place] [address] PCP - General Family Medicine 05/05/24 Emi Bronson [facility] [address] [place] [address] Behavioral Health 04/12/24 09/26/24 documented as of this encounter
--- OUTSIDE RECORDS SUMMARY | 2024-11-13 17:15 | XMS_ITS | Encounter Summary ---
Author Organization [employer] Address [facility] [place]-[id number] [address] [place] [address] Care Team Providers Care Orthotics Prosthetics Assistant Name Role Phone Armen Sánchez DO Primary Care Provider + [phone] Reason for Referral * Diagnostic Imaging (Routine) [...] Family history of spina bifida Procedures US [facility] with or without consult Angela Gardner MD [address] [facility], 1[address] [place] [address] Phone: tel: fax: Maternal- Medicine at [place] [address] [place] [address] Phone: tel: fax: Referral ID Status Reason Start Date Expiration Date V isits Requested Visits Authorized [id number] Pending Review 10/30/2024 10/30/2025 1 1 * [...] Family history of spina bifida Procedures [facility] with or without consult Angela Gardner MD [address] [address] Phone: tel: fax: Maternal- Medicine at [address] [address] Phone: tel: fax: Referral ID Status Reason Start Date Expiration Date V isits Requested Visits Authorized [id number] Pending Review 10/30/2024 10/30/2025 1 1 * [...] Family history of spina bifida Procedures [facility] with or without consult Angela Gardner MD [address] [address] Phone: tel: fax: Maternal- Medicine at [address] [address] Phone: tel: fax: Referral ID Status Reason Start Date Expiration Date V isits Requested Visits Authorized [id number] Pending Review 10/30/2024 10/30/2025 1 1 * [...] Procedures US M with or without consult Anglea Gardner MD [address] [facility], 1[address] [place] [address] Phone: tel: fax: Maternal- Medicine at [facility] [address] [place] [address] Phone: tel: fax: Referral ID Status Reason Start Date Expiration Date V isits Requested Visits Authorized [id number] Pending Review 10/30/2024 10/30/2025 1 1 Encounter Details Date Type Department Care Team (Late st Contact Info) Description 10/30/2024 Orders Only Maternal- Medicine at [address] [address] Jocy Maradiaga LPN Supervision of [...] In the past 12 months has e [employer], gas, oil, or water [employer] threatened to shut off services in your [...] Answer Date Recorded Total Score 0 10/18/2024 [facility] [place] of Occupat ional Health - Occupational Stress [...] Info) Description 11/14/2024 3:30 PM EDT Appointment [facility] US Imaging [address] [place] [address] 11/17/2024 2:30 PM EDT [facility] [address] [place] [phone] Gemma Horne MD [address] [place] [address], [address] [place] [address] 11/21/2024 2:00 PM EDT Appointment [facility] US Imaging [address] [place] [address] 11/28/2024 11:00 AM EDT Appointment [facility] US Imaging [address] [place] [address] 11/28/2024 11:30 AM EDT Office Visit Maternal- Medicine at [facility] [address] [facility] [place] [address] Edil Bullock MD [address] [facility] [place], [address] [place] [address] Scheduled Orders Name Type Priority Associated Diagnoses Orde r Schedule US MFM with or without consult Imaging Routine Supervision of high risk in third trimester Cystic fibrosis carrier, antepartum Abnormal genetic test during Maternal care for other (suspected) abnormality and damage, gastrointestinal anomalies, not applicable or unspecified Cystic fibrosis carrier Family history of developmental delay Family history of spina bifida Expected: 10/30/2024, Expires: 10/30/2025 US [facility]FM with or without consult Imaging Routine Supervision of high risk in third trimester Cystic fibrosis carrier, antepartum Abnormal genetic test during Maternal care for other (suspected) abnormality and damage, gastrointestinal anomalies, not applicable or unspecified Cystic fibrosis carrier Family history of developmental delay Family history of spina bifida Expected: 10/30/2024, Expires: 10/30/2025 US [facility] with or without consult Imaging Routine Supervision of high risk in third trimester Cystic fibrosis carrier, antepartum Abnormal genetic test during Maternal care for other (suspected) abnormality and damage, gastrointestinal anomalies, not applicable or unspecified Cystic fibrosis carrier Family history of developmental delay Family history of spina bifida Expected: 10/30/2024, Expires: 10/30/2025 documented as of this encounter Results * US MFM AMNIOTIC FLUID VOLUME ASSESSMENT (11/07/2024 3:23 PM EDT) Anatomical Region Laterality Modality OB-PAPER CUTTER OPERATOR Ultrasound 11/07/2024 3:02 PM EDT Narrative 11/07/2024 6:10 PM EDT NAME: JEREMY BORDEN : 1995 SEX: F Accession Number: [id number] ORDERING PHYSICIAN: ANGELA GARDNER REFERRING PHYSICIAN: CLIFTON IVERSON Coding ----- --------- Procedures 12727: biophysical profile; without non-stress testing Indication ----- --------- Abnormal finding on screening of mother-MOB + FOB CF carriers, Depression, Anxiety , Supervision of high risk , recent trauma to abdomen , prominent bowel , cystic fibrosis History ----- --------- OB History 1. Para 0 [id number] Current ----- --------- Cell free DNA low [...] movements 2: tone 2: Amniotic fluid volume 8 Biophysical profile score Maternal Structures ----- --------- Uterus Visualized Cervix Suboptimal Approach - Transabdominal Right Ovary Not visualized Left Ovary Not visualized Cul de Sac Suboptimal Impression ----- --------- Single viable intrauterine . BPP is 8/8. Amniotic fluid MVP is 5.7 cm. Recommendations ----- --------- Please see [facility] recommendations from prior clinical and/or ultrasound report documentation. Subsequent follow up or other follow up as clinically determined by primary OB provider unless otherwise specified by [facility]. Results forwarded to ordering provider so they can follow up with the patient as necessary. Procedure Note Edil Bullock MD - 11/07/2024 NAME: EJREMY BORDEN : 1995 SEX: F Accession Number: [id number] ORDERING PHYSICIAN: ANGELA GARDNER REFERRING PHYSICIAN: CLIFTON IVERSON Coding ----- --------- Procedures 35434: biophysical profile; without non-stresstesting Indication ----- --------- Abnormal finding on screening of mother-MOB + FOB CF carriers,Depression, Anxiety , Supervision of high risk , recent trauma to abdomen , prominent bowel , cysticfibrosis History ----- --------- OB History 1. Para 0 [id number] Current ----- --------- Cell free DNA low risk analysis Maternal Assessment ----- --------- Physical Exam Height 163 cm, 5 ft 4 in. Initial weight 86 kg, 190 lb.Initial BMI 32.61 kg/m Method ----- --------- Transabdominal ultrasound examination ----- --------- [place] . Number of fetuses: 1 Dating ----- [...] 5.7 cm. Recommendations ----- --------- Please see [facility] recommendations from prior clinical and/or ultrasoundreport documentation. Subsequent follow up or other follow up as clinically determined byprimary OB provider unless otherwise specified by MFM. Results forwarded to ordering provider so they can follow up with thepatient as necessary. us Angela Gardner MD [facility] [place] [place] ORDERABLES Final Resul t documented in this encounter Visit Diagnoses Diagnosis Supervision of high risk in third trimester- Primary Cystic fibrosis carrier, antepartum Abnormal genetic test during Maternal care for other (suspected) abnormality and damage, gastrointestinal anomalies, not applicable or unspecified Cystic fibrosis carrier Family history of developmental delay Family history of spina bifida Family history of congenital anomalies Supervision of high risk in third trimester [...] documented as of this encounter Care Teams Orthotics Prosthetics Assistant Relationship Specialty Start Date End Date Armen Sánchez DO [address], [email or web address] [place] [address] PCP - General Family Medicine 08/25/23 documented as of this encounter
--- OUTSIDE RECORDS SUMMARY | 2024-11-13 17:15 | XMS_ITS | Encounter Summary ---
Author Organization [email or web address] Address [facility][id number] [address] [place] [address] Care Team Providers Care Freight Air Brake Fitter Name Role Phone PrincessArmen Cedric [place] Primary Care Provider Encounter Details Date Type Department Care Team (Late st Contact Info) Description 10/17/2024 [facility] [address] [place] [address] Bernadette Zhang CMA Social History Tobacco Use Types Packs/Day Years Used Date Smoking Tobacco: Every Day Cigarettes 1 13.3 Started: 08/01/2011 Smokeless Tobacco: Never Alcohol Use Standard Drinks/Week Comments Not Currently 0 (1 standard drink = 0.6 oz pur e alcohol) [facility] Utilities Answer Date Recorded In the past 12 months has [employer], gas, oil, or water company threatened to [...] any clubs o r organizations such as taoism groups, unions, fraternal or athletic groups, or [...] Answer Date Recorded Total Score 0 10/18/2024 [facility] of Occupat ional Health - Occupational [...] Info) Description 11/14/2024 3:30 PM EDT Appointment [facility] US Imaging [address] [place] [address] 11/17/2024 2:30 PM EDT [facility] [address] [place] [address] [place] [phone] Gemma Horne MD [facility], [address] [address] 11/21/2024 2:00 PM EDT Appointment [facility] US Imaging [address] [place] [address] 11/28/2024 11:00 AM EDT Appointment [facility] US Imaging [address] [place] [address] 11/28/2024 11:30 AM EDT Office Visit Maternal- Medicine at [facility] [address] [place] [phone] Edil Bullock MD [address] [facility], [address] [place] [address] documented as of this encounter Visit Diagnoses Not on filedocumented in this encounter Additional Health Concerns Assessment Noted Time PHQ-9 Depression Total Score: 0 10/27/19 10:25 AM EDT A Body Mass Index follow-up plan has been documented for the patient 08/10/2023 10:14 AM EDT documented as of this encounter Care Teams Freight Air Brake Fitter Relationship Specialty Start Date End Date Armen Sánchez DO [address] [facility], [place] [address] PCP - General Family Medicine 08/25/23 documented as of this encounter
--- OUTSIDE RECORDS SUMMARY | 2024-11-13 17:15 | XMS_ITS | Encounter Summary ---
Author Organization [employer] tem Address [id number] [address] [place] [address] Care Team Providers Care Robotics Technician Name Role Phone PrincessArmen Cedric [place] Primary Care Provider Encounter Details Date Type Department Care Team (Late st Contact Info) Description 08/25/2023 [facility]phone [facility] [address] [place] [address] Bernadette Zhang CMA Social History Tobacco Use Types Packs/Day Years Used Date Smoking Tobacco: Every Day Cigarettes 1 13.3 Started: 08/01/2011 Smokeless Tobacco: Never Alcohol Use Standard Drinks/Week Comments Not Currently 0 (1 standard drink = 0.6 oz pur e alcohol) [facility] Utilities Answer Date Recorded In the past 12 months has [employer] electric, gas, oil, or water company threatened [...] attend chur ch or catholic services? Never 08/25/2023 Do you belong to [...] Answer Date Recorded Total Score 6 08/25/2023 [facility] of Occupat ional Health - Occupational Stress [...] Info) Description 11/14/2024 3:30 PM EDT Appointment [facility] US Imaging [address] [place] [address] 11/17/2024 2:30 PM EDT [facility] - Women's Services [address] [place] [address] Gemma Horne MD [address] [facility], [place] [address] 11/21/2024 2:00 PM EDT Appointment [facility] US Imaging [address] [place] [address] 11/28/2024 11:00 AM EDT Appointment [facility] US Imaging [address] [place] [address] 11/28/2024 11:30 AM EDT Office Visit Maternal- Medicine at [facility] [address] [place] [address] Edil Bullock MD [address] [facility], [address] [place] [address] documented as of this encounter Visit Diagnoses Not on filedocumented in this encounter Additional Health Concerns Assessment Noted Time PHQ-9 Depression Total Score: 6 08/25/19 24 9:30 AM EDT A Body Mass Index follow-up plan has been documented for the patient 08/10/2023 10:14 AM EDT documented as of this encounter Care Teams Robotics Technician Relationship Specialty Start Date End Date Armen Sánchez DO [address], [place] [address] PCP - General Family Medicine 08/25/23 documented as of this encounter
--- OUTSIDE RECORDS SUMMARY | 2024-11-13 17:15 | XMS_ITS | Encounter Summary ---
Author Organization [facility] [employer] Address [facility]-[id number] [address] [place] [address] Care Team Providers Care Ground Systems Engineer Name Role Phone SepidehArmen tristan Primary Care Provider Encounter Details Date Type Department Care Team (Late st Contact Info) Description 10/30/2024 Orders Only [facility] Internal Medicine - Family Medicine [address] [place] [address] External, Scanning Provider Social History Tobacco Use Types Packs/Day Years Used Date Smoking Tobacco: Every Day Cigarettes 1 13.3 Started: 08/01/2011 Smokeless Tobacco: Never Alcohol Use Standard Drinks/Week Comments Not Currently 0 (1 standard drink = 0.6 oz pur e alcohol) [facility] Utilities Answer Date Recorded In the past 12 months has [employer], gas, oil, or water company threatened [...] any clubs o r organizations such as episcopal groups, unions, fraternal or athletic groups, or [...] Answer Date Recorded Total Score 0 10/18/2024 [facility] of Occupat ional Health - Occupational Stress [...] Info) Description 11/14/2024 3:30 PM EDT Appointment [facility] US Imaging [address] [place] [address] 11/17/2024 2:30 PM EDT [facility] [address] [place] [phone] Gemma Horne MD [address] [place] [address], [place] [address] 11/21/2024 2:00 PM EDT Appointment [facility] US Imaging [address] [place] [address] 11/28/2024 11:00 AM EDT Appointment [facility] US Imaging [address] [place] [address] 11/28/2024 11:30 AM EDT Office Visit Maternal- Medicine at [facility] [address] [place] [address] Edil Bullock MD [address] [address] documented as of this encounter Procedures Procedure [...] documented as of this encounter Care Teams Ground Systems Engineer Relationship Specialty Start Date End Date Armen Sánchez DO [address] [facility], [place] [address] PCP - General Family Medicine 08/25/23 documented as of this encounter
--- OUTSIDE RECORDS SUMMARY | 2024-11-13 17:15 | XMS_ITS | Encounter Summary ---
Author Organization [facility] Address [address] [facility] [place] [address] Care Team Providers Care Wood Caulker Name Role Phone Emi Bronson [facility] Unavailable + [phone] Armen Sánchez MD Primary Care Provider + [phone] Encounter Details Date Type Department Care Team (Late st Contact Info) Description 05/09/2024 Abstract [facility] [address] [place] [phone] Curtis Paez DO [address] [facility] [place] [address] Social History Tobacco Use Types Packs/Day Years [...] on filedocumented in this encounter Care Teams Wood Caulker Relationship Specialty Start Date End Date Armen Sánchez MD [address] [place] [address] PCP - General Family Medicine 05/05/24 Emi Bronson [facility] [address] [place] [address] Behavioral Health 04/12/24 09/26/24 documented as of this encounter
--- OUTSIDE RECORDS SUMMARY | 2024-11-13 17:15 | XMS_ITS | Encounter Summary ---
Author Organization [facility] Address [facility][id number] [address] [place] [address] Care Team Providers Care Education Liaison Name Role Phone MasoodArmen silverman Primary Care Provider Encounter Details Date Type Department Care Team (Late st Contact Info) Description 07/19/2024 Orders Only [facility] Internal Medicine - Family Medicine [address] [place] [address] Ref Prov, [place] [address] Social History Tobacco Use Types Packs/Day Years Used Date Smoking Tobacco: Every Day Cigarettes 1 13.3 Started: 08/01/2011 Smokeless Tobacco: Never Alcohol Use Standard Drinks/Week Comments Not Currently 0 (1 standard drink = 0.6 oz pur e alcohol) [facility] Utilities Answer Date Recorded In the past 12 months has [employer], gas, oil, or water company threatened to [...] often do you attend chur ch or christianity services? Never 01/27/2024 Do you belong to [...] Answer Date Recorded Total Score 0 10/27/2023 [facility] of Occupat ional Health [...] Recorded Do you need help finding a [facility] and/or a training program? [...] Info) Description 11/14/2024 3:30 PM EDT Appointment [facility] US Imaging [address] [place] [address] 11/17/2024 2:30 PM EDT [facility]ine [facility] [address] [place] [address] Gemma Horne MD [address] [place] [address], [place] [address] 11/21/2024 2:00 PM EDT Appointment [facility] US Imaging [address] [place] [address] 11/28/2024 11:00 AM EDT Appointment [facility] US Imaging [address] [place] [address] 11/28/2024 11:30 AM EDT Office Visit [facility] at [facility] [address] [place] [address] Edil Bullock MD [address] [address] documented as of this encounter Procedures Procedure [...] as of this encounter Care Teams Education Liaison Relationship Specialty Start Date End Date Armen Sánchez DO [address] [facility], [place] [address] PCP - General Family Medicine 08/25/23 documented as of this encounter
--- OUTSIDE RECORDS SUMMARY | 2024-11-13 17:15 | XMS_ITS | Encounter Summary ---
Author Organization [facility] tem Address [id number] [address] [place] [address] Care Team Providers Care Professor Of Mechanical Engineering Name Role Phone PrincessArmen Cedric [place] Primary Care Provider [phone] Encounter Details Date Type Department Care Team (Late st Contact Info) Description 09/25/2024 Orders Only Maternal- Medicine at [facility] [address] [place] [address] Ref Prov, [place] [address] Social History Tobacco Use Types Packs/Day Years Used Date Smoking Tobacco: Every Day Cigarettes 1 13.3 Started: 08/01/2011 Smokeless Tobacco: Never Alcohol Use Standard Drinks/Week Comments Not Currently 0 (1 standard drink = 0.6 oz pur e alcohol) [facility] Utilities Answer Date Recorded In the past 12 months has [employer], gas, oil, or water company threatened to [...] any clubs o r organizations such as judaism groups, unions, fraternal or athletic groups, or [...] Answer Date Recorded Total Score 0 10/27/2023 [facility] of Occupat ional Health - Occupational Stress [...] Recorded Do you need help finding a [facility] career center and/or a training program? No [...] Info) Description 11/14/2024 3:30 PM EDT Appointment [facility] US Imaging [address] [place] [address] 11/17/2024 2:30 PM EDT [facility] [address] [place] [address] Gemma Horne MD [address] [place] [address], [place] [address] 11/21/2024 2:00 PM EDT Appointment [facility] US Imaging [address] [place] [address] 11/28/2024 11:00 AM EDT Appointment [facility] US Imaging [address] [place] [address] 11/28/2024 11:30 AM EDT Office Visit Maternal- Medicine at [facility] [address] [place] [address] Edil Bullock MD [address] [address] documented as of this encounter Procedures Procedure Name Priority Date/Time Associated Diagnosis Comments US PREG LMTD 1 OR MORE FETUS Routine 09/25/2024 8:28 AM EDT documented in this encounter Results * Ultrasound limited 1 or more fetus (09/25/2024 8:28 AM EDT) Anatomical Region Laterality Modality OB-SHOE LAY OUT PLANNER Ultrasound us Not In System Ref Prov IMG US ORDERABLES Final R esult documented in this encounter Visit Diagnoses Not on filedocumented in this encounter Additional Health Concerns Assessment Noted Time PHQ-9 Depression Total Score: 0 10/27/19 10:25 AM EDT A Body Mass Index follow-up plan has been documented for the patient 08/10/2023 10:14 AM EDT documented as of this encounter Care Teams Professor Of Mechanical Engineering Relationship Specialty Start Date End Date Armen Sánchez DO [address], [place] [address] PCP - General Family Medicine 08/25/23 documented as of this encounter
--- OUTSIDE RECORDS SUMMARY | 2024-11-13 17:15 | XMS_ITS | Encounter Summary ---
Author Organization [facility] tem Address [facility]-[id number] [address] [place] [address] Care Team Providers Care Diagnostic Technician Name Role Phone Princess Armen Steele DO Primary Care Provider [phone] Encounter Details Date Type Department Care Team (Late st Contact Info) Description 06/16/2024 Orders Only Maternal- Medicine at [facility] [address] [place] [phone] Curtis Paez, DO [address] [facility] [place] [address] Social History Tobacco Use Types Packs/Day Years Used Date Smoking Tobacco: Every Day Cigarettes 1 13.3 Started: 08/01/2011 Smokeless Tobacco: Never Alcohol Use Standard Drinks/Week Comments Not Currently 0 (1 standard drink = 0.6 oz pur e alcohol) [facility] Utilities Answer Date Recorded In the past 12 months has [employer], gas, oil, or water [employer] threatened to shut off services in your home? No 08/25/2023 Social Connection and Isolation Panel [NHANES] A nswer Date Recorded In a typical week, how many times do you talk on the phone with family, friends, or neighbors? Three times a week 01/27/2024 How often do you get togethe r with friends or relatives? Once a week 01/27/2024 How often do you attend [facility] or j[facility] services? Never 01/27/2024 Do you [...] Info) Description 11/14/2024 3:30 PM EDT Appointment [facility] US Imaging [address] [place] [address] 11/17/2024 2:30 PM EDT [facility] [address] [place] [phone] Gemma Horne MD [address] [place] [address], [address] [address] 11/21/2024 2:00 PM EDT Appointment [facility] Imaging [address] [place] [address] 11/28/2024 11:00 AM EDT Appointment [facility] Imaging [address] [place] [address] 11/28/2024 11:30 AM EDT Office Visit Maternal- Medicine at [facility] [address] [place] [address] Edil Bullock MD [address], [address] [place] [address] documented as of this encounter Procedures Procedure Name Priority Date/Time Associated Diagnosis Comments UNLISTED LAB TEST Routine 06/08/2024 1:25 PM EST UNLISTED LAB TEST Routine 05/23/2024 1:26 PM EST documented in this encounter Results * Unlisted Lab Test (06/08/2024 1:25 PM EST) us Curtis R Jeannine DO LAB BLOOD ORDERABLES Final Resu lt MANUALLY TRANSCRIBED RESULTS * Unlisted Lab Test (05/23/2024 1:26 PM EST) us Curtis R Jeannine DO LAB BLOOD ORDERABLES Final Resu lt Performing Organization Address [facility] Co de Phone Number MANUALLY TRANSCRIBED RESULTS documented in this encounter Visit Diagnoses Not on filedocumented in this encounter Additional Health Concerns Assessment Noted Time PHQ-9 Depression Total Score: 0 10/27/19 10:25 AM EDT A Body Mass Index follow-up plan has been documented for the patient 08/10/2023 10:14 AM EDT documented as of this encounter Care Teams Diagnostic Technician Relationship Specialty Start Date End Date Armen Sánchez DO [address] [facility], [place] [address] PCP - General Family Medicine 08/25/23 documented as of this encounter
--- OUTSIDE RECORDS SUMMARY | 2024-11-13 17:15 | XMS_ITS | Encounter Summary ---
Author Organization [facility] Address [address] [place] [address] Care Team Providers Care Biblical Studies Professor Name Role Phone Emi Bronson [facility] Unavailable + [phone] Armen Sánchez MD Primary Care Provider + [phone] Encounter Details Date Type Department Care Team (Late st Contact Info) Description 08/10/2023 Abstract [facility] [address] [facility] [place] [address] Curtis Paez DO [address] [facility] [address] [place], [place] [id number] Social History Tobacco Use Types Packs/Day Years [...] on filedocumented in this encounter Care Teams Biblical Studies Professor Relationship Specialty Start Date End Date Armen Sánchez MD [address] [facility] [address] [place] [address] PCP - General Family Medicine 05/05/24 Emi Bronson, [facility] [address] [facility] [address] [place] [address] Behavioral Health 04/12/24 09/26/24 documented as of this encounter
--- OUTSIDE RECORDS SUMMARY | 2024-11-13 17:15 | XMS_ITS | Encounter Summary ---
Author Organization [facility] Address [address] [place] [address] Care Team Providers Care Medical Corps Officer Name Role Phone Emi Bronson [facility] Unavailable + [phone] Armen Sánchez MD Primary Care Provider + [phone] Encounter Details Date Type Department Care Team (Late st Contact Info) Description 09/14/2023 Abstract [facility] [place] [facility] [address] [facility] 110 [place] [phone] Nav Ames MD 112 [facility] [address] [place] [address] Social History Tobacco Use Types Packs/Day Years [...] on filedocumented in this encounter Care Teams Medical Corps Officer Relationship Specialty Start Date End Date Armen Sánchez MD [address] [facility] [address] [place] [address] PCP - General Family Medicine 05/05/24 Emi Bronson, [facility] [address] [facility] [address] [place] [phone] Behavioral Health 04/12/24 09/26/24 documented as of this encounter
--- OUTSIDE RECORDS SUMMARY | 2024-11-13 17:15 | XMS_ITS | Encounter Summary ---
Author Organization [employer] s tem Address [id number] [address] [place] [address] Care Team Providers Care Steel Tester Name Role Phone Armen Sánchez Primary Care Provider Encounter Details Date Type Department Care Team (Late st Contact Info) Description 08/17/2023 Orders Only [facility] Ob[facility]ne[facility] [address] [place] [phone] La Murray CMA Screening for STD (sexually [...] 11/14/2024 3:30 PM EDT Appointment [facility] US Imaging [address] [place] [address] 11/17/2024 2:30 PM EDT Routine [facility] Services - Women's Services [address] [place] [address] Gemma Horne MD [address] [facility], [place] [address] 11/21/2024 2:00 PM EDT Appointment [facility] US Imaging [address] [place] [address] 11/28/2024 11:00 AM EDT Appointment [facility] Imaging [address] [place] [address] 11/28/2024 11:30 AM EDT Office Visit Maternal- Medicine at [facility] [address] [place] [address] Edil Bullock MD [address] [address] documented as of this encounter Procedures Procedure [...] ORDERABLES Final Res ult Performing Organization Address [facility] Co de Phone Number SUNQUEST * Syphilis Total(Unknown Syphilis Status) (08/10/2023) QUANTITATIVE RPR Non Reactive SUNQUEST 08/10/2023 Claire Robertson MD LAB BLOOD ORDERABLES Final Res ult Performing Organization Address [facility] Co de Phone Number SUNQUEST * Hepatitis panel, acute (08/10/2023) Hep A IgM Ab Negative SUNQUEST Hep B Core IgM Ab Negative Negative SUNQUEST Hepatitis B Surface Ag Nonreactive Borderline, Nonreactive SUNQUEST Hepatitis C Ab Negative Negative [facility]QUEST 08/10/2023 Claire Robertson MD LAB BLOOD ORDERABLES Final Res ult Performing Organization Address [facility] de Phone Number SUNQUEST documented in this encounter Visit Diagnoses Diagnosis Screening for STD (sexually transmitted disease) documented in this encounter Additional Health Concerns Assessment Noted Time PHQ-9 Depression Total Score: 5 08/10/19 24 9:41 AM EDT A Body Mass Index follow-up plan has been documented for the patient 08/10/2023 10:14 AM EDT documented as of this encounter Care Teams Steel Tester Relationship Specialty Start Date End Date Armen Sánchez DO [address], [place] [address] PCP - General Family Medicine 08/25/23 documented as of this encounter
--- OUTSIDE RECORDS SUMMARY | 2024-11-13 17:15 | XMS_ITS | Encounter Summary ---
Author Organization [facility] Address [address] [facility] [place] [address] Care Team Providers Care Fruit Dryer Name Role Phone Emi Bronson [facility] Unavailable + [phone] Armen Sánchez MD Primary Care Provider + [phone] Encounter Details Date Type Department Care Team (Late st Contact Info) Description 05/24/2024 Abstract [facility] [address] [facility] [phone] Curtis Paez DO [address] [facility] [place] [address] Social History Tobacco Use Types Packs/Day Years [...] on filedocumented in this encounter Care Teams Fruit Dryer Relationship Specialty Start Date End Date Armen áSnchez MD [address] [place] [address] PCP - General Family Medicine 05/05/24 Emi Bronson [facility] [address] [place] [address] Behavioral Health 04/12/24 09/26/24 documented as of this encounter
--- OUTSIDE RECORDS SUMMARY | 2024-11-13 17:15 | XMS_ITS | Encounter Summary ---
Author Organization [facility] [employer] tem Address [id number] [address] [place] [address] Care Team Providers Care Search Developer Name Role Phone MasoodArmen silverman Primary Care Provider Encounter Details Date Type Department Care Team (Late st Contact Info) Description 05/01/2024 Orders Only [facility] Internal Medicine - Family Medicine [address] [place] [address] Ref Prov, [place] [address] Social History Tobacco Use Types Packs/Day Years Used Date Smoking Tobacco: Every Day Cigarettes 1 13.3 Started: 08/01/2011 Smokeless Tobacco: Never Alcohol Use Standard Drinks/Week Comments Not Currently 0 (1 standard drink = 0.6 oz pur e alcohol) [facility] Utilities Answer Date Recorded In the past 12 months has [employer], gas, oil, or water company threatened to [...] Recorded Do you need help finding a [facility] and/or a training program? [...] 11/14/2024 3:30 PM EDT Appointment [facility] Imaging [address] [place] [address] 11/17/2024 2:30 PM EDT Routine [facility] Services - Women's Services [address] [place] [address] Gemma Horne MD [address] [place] [address], [place] [address] 11/21/2024 2:00 PM EDT Appointment [facility] US Imaging [address] [place] [address] 11/28/2024 11:00 AM EDT Appointment [facility] US Imaging [address] [place] [address] 11/28/2024 11:30 AM EDT Office Visit Maternal- Medicine at [facility] [address] [place] [address] Edil Bullock MD [address] [address] documented as of this encounter Procedures Procedure [...] documented as of this encounter Care Teams Search Developer Relationship Specialty Start Date End Date Armen Sánchez DO [address] [facility], [place] [address] PCP - General Family Medicine 08/25/23 documented as of this encounter
--- OUTSIDE RECORDS SUMMARY | 2024-11-13 17:15 | XMS_ITS | Encounter Summary ---
Author Organization [facility] Address [id number] [address] [place] [address] Care Team Providers Care Fabric Stretcher Name Role Phone SepidehArmen tristan Cedric [place] Primary Care Provider Encounter Details Date Type Department Care Team (Latest Contact Info) Description 10/30/2024 Travel Social History Tobacco Use Types Packs/Day Years Used Date Smoking Tobacco: Every Day Cigarettes 1 13.3 Started: 08/01/2011 Smokeless Tobacco: Never Alcohol Use Standard Drinks/Week Comments Not Currently 0 (1 standard drink = 0.6 oz pur e alcohol) [facility] Utilities Answer Date Recorded In the [...] Answer Date Recorded Total Score 0 10/18/2024 [facility] - Occupational [...] Info) Description 11/14/2024 3:30 PM EDT Appointment [facility] US Imaging [address] [place] [address] 11/17/2024 2:30 PM EDT [facility] [address] [place] [phone] Gemma Horne MD [address] [place] [address], [place] [address] 11/21/2024 2:00 PM EDT Appointment [facility] US Imaging [address] [place] [address] 11/28/2024 11:00 AM EDT Appointment [facility] US Imaging [address] [place] [address] 11/28/2024 11:30 AM EDT Office Visit Maternal- Medicine at [facility] [address] [place] [address] Edil Bullock MD [address] [address] documented as of this encounter Visit Diagnoses Not on filedocumented in this encounter Additional Health Concerns Assessment Noted Time PHQ-9 Depression Total Score: 0 10/19/19 25 4:00 AM EDT A Body Mass Index follow-up plan has been documented for the patient 08/10/2023 10:14 AM EDT documented as of this encounter Care Teams Fabric Stretcher Relationship Specialty Start Date End Date Armen Sánchez DO [address], [facility] [place] [address] PCP - General Family Medicine 08/25/23 documented as of this encounter
[2024-11-13 17:39] VITALS: BP 137/80; PULSE 90
== END 2024-11-13 17:42 | disposition home or self-care (01) ==
LOC: FBCO 17:12 → FBC 17:15
PROVIDERS: PCP Family Medicine; Visit Provider Obstetrics & Gynecology
DX: O43.893 Other placental disorders, third trimester (principal); Z3A.35 35 weeks gestation of pregnancy
CPT/HCPCS: 59025

== ENCOUNTER 2024-11-16 14:55 | Outpatient (OUT) | payer OTHER, SELFPAY ==
--- OUTSIDE RECORDS SUMMARY | 2014-12-19 09:30 | XMS_ITS | Continuity of Care Document ---
Author Organization [facility] Address [address] [place] [address] Phone Care Team Providers Care Upholstery Covers Inspector Name Role Phone Yasmin Turcios MD Unavailable [...] Diagnoses Date Provider Providers Copied on Encounter [facility], [address], [place], [place], [address], tel:[phone] [facility] No Information Dec- 5 Tam NULL Yasmin[address] [place], [place], [address], [place]. tel:[phone] [facility], [address], [place], [place], [address], tel:[phone] [facility] contraception (chief complaint) Test - NegativeSubse q. Contraceptive Surveillance Dec- 0 5 Tam [address] [place], [place], [address], [place]. tel:[phone] Init Preven Meds E&m New Pt; 18-39 [facility], [address], [place], [place], [address], [place] tel:[phone] [facility] annual exam (chief complaint) ROUTINE WEIGHTS AND MEASURES INSPECTOR EXAMINATIONPr egnancy Test - Negative Tam NULL Yasmin. [address] [place], [place], [address], [place]. tel:[phone] Family History Family Member Type Diagnosis Age At Onset Paternal grandmother Problem (finding) breast cancer Payers Payer name Insurance type Covered democrat ID Authoriza tion(s) [place] [facility] [place] [id number] Social History Type Description Quantity Date Captured [...]
--- OUTSIDE RECORDS SUMMARY | 2024-11-03 13:00 | XMS_ITS | Encounter Summary ---
Author Organization [employer] [facility] Address [id number] [address] [place] [address] Care Team Providers Care Gel Coater Name Role Phone MasoodArmen silverman Primary Care Provider [phone] Reason for Visit * Reason Comments High Risk Gestation Encounter Details Date Type Department Care Team (Late st Contact Info) Description 11/03/2024 1:00 PM EDT [facility] [address] [place] [phone] Tiffany Easton MD [address] [place] [facility] [place] [address] [place]: 34w3d Social History Tobacco Use Types Packs/Day Years Used Date Smoking Tobacco: Every Day Cigarettes 1 13.3 Started: 08/01/2011 Smokeless Tobacco: Never Alcohol Use Standard Drinks/Week Comments Not Currently 0 (1 standard drink = 0.6 oz pur e alcohol) [facility] Utilities Answer Date Recorded In the past 12 months has [employer] electric, gas, oil, or water company threatened [...] week 01/27/2024 How often do you attend [facility] or catholic services? Never 01/27/2024 Do you [...] Answer Date Recorded Total Score 0 10/18/2024 [facility] of Occupat ional Health - Occupational Stress [...] Recorded Do you need help finding a [employer] [facility] and/or a training program? No 08/25/2023 Hunger Screening Answer Date Recorded Within the past 12 months we worried whether our food would run out before we got money to buy more. Never True 11/03/2024 Within the past 12 months th e food we bought just didn't last and we didn't have money to get more. Never True 11/03/2024 Purpose - Life Answer Date Recorded I [...] Sign Reading Time Taken Comments Blood Pressure - - Pulse - - Temperature - - Respiratory Rate - - Oxygen Saturation - - Inhaled Oxygen Concentration - - Weight 97 kg (213 lb 12.8 oz) 11/03/2024 1:18 PM EDT Height - - Body Mass Index 36.68 10/30/2024 11:15 AM EDT documented in this encounter Patient Instructions * Attachments The following attachments cannot be sent through Care Everywhere. * Choosing control (Tongan) documented in this encounter Progress Notes * Tiffany Easton MD - 11/03/2024 1:00 PM EDT [facility] High Risk Obstetrics Visit Return OB CC: Scheduled OB Visit None Problem List Active Problems Anxiety and depression Cystic fibrosis carrier, antepartum Overview Fetus found to be positive for CF [...] to be further addressed pending clinical course Depression Maternal care for other (suspected) abnormality and damage, gastrointestinal anomalies,not applicable or unspecified - Primary care, first in third trimester Overview Tranasfer from hay [place] Dated by LMP c/w 7 week US Initial and 28 week labs--completed Relevant Medications Immunization, In Clinic, Other Relevant Orders Tdap vaccine greater than or equal to 7yo IM (Completed) Chlamydia/Gonorrhoeae by PCR, Urine Good FM. Denies Bleeding, SROM, contractions Denies persistent N/V, constipation, hematuria, dysuria Heartburn daily Tums with good relief testing is being done at [place] with Dr. Paez 10/09/24 + chlamydia Treated with follow up testing negative Does not have h/o HSV that she knows of Depression/Anxiety Meds: effexor Followed by no one Status: doing better on effexor Control Method plan: undecided Problem List reviewed and updated PMH/PSH/FH/Soc/Meds/Allergies Reviewed PE Wt 97 kg (213 lb 12.8 oz) LMP 03/07/2024 Comment: test negative 09/03/23 at 1242 BMI 36.68 kg/m?? Alert, NAD ABdomen: Soft, NT, nondistended Wt Readings from Last 3 Encounters: 11/03/24 97 kg (213 lb 12.8 oz) 10/30/24 98.2 kg (216 lb 6.4 oz) 10/19/24 95.3 kg (210 lb) See flowsheet Urine dipstick shows Protein 1+ Glucose N Imp/Plan at 34w2d Patient Active Problem List Diagnosis Rectal bleeding Vitamin D deficiency Depression Anxiety Onychomycosis Overweight Maternal care for other (suspected) abnormality and damage, gastrointestinal anomalies,not applicable or unspecified Cystic fibrosis carrier, antepartum care, first in third trimester Anxiety and depression Chlamydia infection affecting , antepartum care labor warnings/ Movement discussed CF based on amniocentesis Twice weekly testing--receiving at [place] and NST with DVP/bowel check here at [facility] Serial growth scans--last done 10/30 at 33w5d Anxiety/depression stable H/o chlamydia this (07/2024) Urine GC/Chlamydia Request for steriliztion Sterilization discussed, including methods, alternatives (including vasectomy) and risks/expectations, including regret and failure. Patient desires to sign federal sterilization form--completed. Sheis aware that she can change her mind prior to the surgery time. [place] Resident/ [place] form. RTC 2 weeks via HR[facility] Note to patient: The Cures Act makes medical notes like these available to patients inthe interest of transparency. However, be advised this is a medical document. It is intended as peer to peer communication. It is written in medical language and may contain abbreviations or verbiagethat are unfamiliar. It may appear blunt or direct. Medical documents are intended to carry relevant information, facts as evident, and the clinical opinion of the practitioner. * Marisabel Ruth LPN - 11/03/2024 1:00 PM EDT Pt here for routine HROB 34w3d Denies lof vb ctx Confirms +fm No concerns today Will send urine for G&C Patient would like TDAP. documented in this encounter Plan of Treatment Upcoming Encounters Date Type Department Care Team (Late st Contact Info) Description 11/17/2024 2:30 PM EDT [facility] [address] [place] [phone] Gemma Horne MD [address] [place] [address], [address] [address] 11/21/2024 2:00 PM EDT Appointment [facility] Imaging [address] [place] [address] 11/28/2024 11:00 AM EDT Appointment [facility] [address] [place] [phone] 11/28/2024 11:30 AM EDT Office Visit Maternal- Medicine at [facility] [address] [place] [phone] Edil Bullock MD [address] [facility], [address] [place] [address] documented as of this encounter Procedures Procedure Name Priority Date/Time Associated Diagnosis Comments CHLAMYDIA/GONORRHOE AE BY PCR, URINE Routine 11/03/2024 2:16 PM EDT care, first in third trimester History of maternal Chlamydia infection, currently in third trimester documented in this encounter Results * Chlamydia/Gonorrhoeae by PCR, Urine (11/03/2024 2:16 PM EDT) [facility] Signature GONORRHOEAE PCR, U Negative Negative 11/05/2024 10:16 AM EDT [facility] Comment:Neisseria gonorrhoea e not detected by nucleic acid amplification. This does not exclude the possibility of infection because results are dependent on adequate specimen collection. CHLAMYDIA PCR, U Negative Negative 11/05/2024 10:16 AM EDT [facility] Comment:Chlamydia trachomati s not detected by nucleic acid amplification. This does not exclude the possibility of infection because results are dependent on adequate specimen collection. Urine Urine / Unknown 11/03/2024 2 :16 PM EDT 11/03/2024 2:16 PM EDT Tiffany Easton MD MICROBIOLOGY - GENERAL O RDERABLES Final Result [facility] [address] [place] [address], documented in this encounter Visit Diagnoses Diagnosis Maternal care for other (suspected) abnormality and damage, gastrointestinal anomalies, not applicable or unspecified- Primary Major depressive disorder with single episode, in remission Anxiety and depression Cystic fibrosis carrier, antepartum care, first in third trimester History of maternal Chlamydia infection, currently in third trimester documented in this encounter Additional Health Concerns Assessment Noted Time PHQ-9 Depression Total Score: 0 10/19/19 25 4:00 AM EDT A Body Mass Index follow-up plan has been documented for the patient 08/10/2023 10:14 AM EDT documented as of this encounter Care Teams Gel Coater Relationship Specialty Start Date End Date Armen Sánchez DO [address], [place] [address] PCP - General Family Medicine 08/25/23 documented as of this encounter
--- OUTSIDE RECORDS SUMMARY | 2024-11-07 14:50 | XMS_ITS | Encounter Summary ---
Author Organization MYOS tem Address [id number] [address] [place] [address] Care Team Providers Care Bullet Lubricant Mixer Name Role Phone Armen Sánchez DO Primary Care Provider + [phone] Reason for Referral * Diagnostic Imaging (Routine) [...] Family history of spina bifida Procedures US [facility] with or without consult Angela Gardner MD [address] [facility], [address] [place] [address] Phone: tel: fax: Maternal- Medicine at [place] [address] [place] [address] Phone: tel: fax: Referral ID Status Reason Start Date Expiration Date V isits Requested Visits Authorized [id number] Pending Review 10/30/2024 10/30/2025 1 1 Reason [...] Family history of spina bifida Procedures US [facility] with or without consult Angela Gardner MD [address] [facility], [address] [place] [address] Phone: tel: fax: Maternal- Medicine at [facility] [address] [place] [address] Phone: tel: fax: Referral ID Status Reason Start Date Expiration Date V isits Requested Visits Authorized [id number] Pending Review 10/30/2024 10/30/2025 1 1 Encounter Details Date Type Department Care Team (Latest Contact Info) Description 11/07/2024 2:50 PM EDT - 11/07/2024 11:59 PM EDT Hospital Encounter [facility] US Imaging [address] [place] [phone] Angela Gardner MD [address] [phone] Supervision of high risk in third trimester; [...] e alcohol) [facility] Utilities Answer Date Recorded In the past 12 months has [employer], gas, oil, or water [employer] threatened to shut off services in your [...] often do you attend chur ch or confucianism services? Never 01/27/2024 Do you belong to [...] Answer Date Recorded Total Score 0 10/18/2024 [facility] of Occupat [...] you need help finding a [facility] career center and/or a training program? [...] [facility] [address] [place] [phone] Gemma Horne MD [address] [place] [address], [address] [address] 11/21/2024 2:[address] [facility] US Imaging [address] [place] [address] 11/28/2024 11:[address] [facility] US Imaging [address] [place] [address] 11/28/2024 11:30 AM EDT Office Visit Maternal- Medicine at [facility] [address] [place] [phone] Edil Bullock MD [address] [facility], [address] [place] [address] documented as of this encounter Procedures Procedure [...] 3:23 PM EDT) Anatomical Region Laterality Modality OB-BONE PROCESS OPERATOR Ultrasound 11/07/2024 3:02 PM EDT Narrative 11/07/2024 6:10 PM EDT NAME: JEREMY BORDEN : 1995 SEX: F Accession Number: [id number] ORDERING PHYSICIAN: ANGELA GARDNER REFERRING PHYSICIAN: CLIFTON IVERSON Coding ----- --------- Procedures 02062: biophysical profile; without non-stress testing Indication ----- --------- Abnormal finding on screening of mother-MOB + FOB CF carriers, Depression, Anxiety , Supervision of high risk , recent trauma to abdomen , prominent bowel , cystic fibrosis History ----- --------- OB History 1. Para 0 [id number] Current ----- --------- Cell free DNA low [...] 5.7 cm. Recommendations ----- --------- Please see [facility] recommendations from prior clinical and/or ultrasound report documentation. Subsequent follow up or other follow up as clinically determined by primary OB provider unless otherwise specified by [facility]. Results forwarded to ordering provider so they can follow up with the patient as necessary. Procedure Note Edil Bullock MD - 11/07/2024 NAME: JEREMY BORDEN : 1995 SEX: F Accession Number: [id number] ORDERING PHYSICIAN: ANGELA GARDNER REFERRING PHYSICIAN: CLIFTON IVERSON Coding ----- --------- Procedures 34971: biophysical profile; without non-stresstesting Indication ----- --------- Abnormal finding on screening of mother-MOB + FOB CF carriers,Depression, Anxiety , Supervision of high risk , recent trauma to abdomen , prominent bowel , cysticfibrosis History ----- --------- OB History 1. Para 0 [id number] Current ----- --------- Cell free DNA low [...] 5.7 cm. Recommendations ----- --------- Please see [facility] recommendations from prior clinical and/or ultrasoundreport documentation. Subsequent follow up or other follow up as clinically determined byprimary OB provider unless otherwise specified by [facility]FM. Results forwarded to ordering provider so they can follow up with thepatient as necessary. us Angela Gardner MD [facility] US ORDERABLES Final Resul t documented in [...] documented as of this encounter Care Teams Bullet Lubricant Mixer Relationship Specialty Start Date End Date Armen Sánchez DO [address] [facility], [facility] [place] [address] PCP - General Family Medicine 08/25/23 documented as of this encounter
--- OUTSIDE RECORDS SUMMARY | 2024-11-14 15:27 | XMS_ITS | Encounter Summary ---
Author Organization [employer] tem Address [id number]-[id number] [address] [place] [address] Care Team Providers Care Building Carpenter Name Role Phone Armen Sánchez DO Primary Care Provider + [phone] Reason for Referral * Diagnostic Imaging (Routine) [...] Family history of spina bifida Procedures US [facility] with or without consult Angela Gardner MD [address] [facility], [address] [place] [address] Phone: tel: fax: Maternal- Medicine at [place] [address] [place] [address] Phone: tel: fax: Referral ID Status Reason Start Date Expiration Date V isits Requested Visits Authorized [id number] Pending Review 10/30/2024 10/30/2025 1 1 Reason [...] Family history of spina bifida Procedures US [facility] with or without consult Angela Gardner MD [address] [facility], [address] [place] [address] Phone: tel: fax: Maternal- Medicine at [facility] [address] [place] [address] Phone: tel: fax: Referral ID Status Reason Start Date Expiration Date V isits Requested Visits Authorized [id number] Pending Review 10/30/2024 10/30/2025 1 1 Encounter Details Date Type Department Care Team (Latest Contact Info) Description 11/14/2024 3:27 PM EDT - 11/14/2024 11:59 PM EDT Hospital Encounter [facility] - [facility] US Imaging [address] [place] [address] Supervision of high risk in third trimester; [...] drink = 0.6 oz pur e alcohol) [facility] Utilities Answer Date Recorded In the past 12 months has [employer], gas, oil, or water [employer] threatened to shut off services in your [...] Answer Date Recorded Total Score 0 10/18/2024 [facility] [place] of Occupat ional Health - Occupational Stress [...] [facility] [address] [place] [phone] Gemma Horne MD [address] [place] [address], [address] [address] 11/21/2024 2:00 PM EDT Appointment [facility] - [facility] US Imaging [address] [place] [address] 11/28/2024 11:00 AM EDT Appointment [facility] - [facility] US Imaging [address] [place] [address] 11/28/2024 11:30 AM EDT Office Visit Maternal- Medicine at [facility] [address] [place] [address] Edil Bullock MD [address] [facility], [address] [place] [address] documented as of this encounter Procedures Procedure Name Priority Date/Time Associated Diagnosis Comments US MFM BIOPHYSICAL PROFILE WO NST Routine 11/14/2024 4:07 PM EDT Supervision of high risk in third trimester Cystic fibrosis carrier, antepartum Abnormal genetic test during Maternal care for other (suspected) abnormality and damage, gastrointestinal anomalies, not applicable or unspecified Cystic fibrosis carrier Family history of developmental delay Family history of spina bifida documented in this encounter Results * US MFM BIOPHYSICAL PROFILE WO NST (11/14/2024 4:07 PM EDT) Anatomical Region Laterality Modality OB-DRYWALL HANGER HELPER Ultrasound 11/14/2024 3:46 PM EDT Narrative 11/14/2024 4:12 PM EDT NAME: JEREMY BORDEN : 1995 SEX: F Accession Number: [id number] ORDERING PHYSICIAN: ANGELA GARDNER REFERRING PHYSICIAN: CLIFTON IVERSON Coding ----- --------- Procedures 98671: biophysical profile; without non-stress testing Indication ----- --------- Abnormal finding on screening of mother-MOB + FOB CF carriers, Depression, Anxiety , Supervision of high risk , cystic fibrosis. History ----- --------- OB History 1. Para 0 [id number] Current ----- --------- Cell free DNA low risk analysis Maternal Assessment ----- --------- Physical Exam Height 163 cm, 5 ft 4 in. Weight 97 kg, 213 lb. Initial weight 86 kg, 190 lb. BMI 36.56 kg/m . Initial BMI 32.61 kg/m . Weight gain 10 kg, 23 lb Method ----- --------- Transabdominal ultrasound examination ----- --------- Dupont . Number of fetuses: 1 Dating ----- --------- LMP on: 03/07/2024 GA by LMP 36 w + 0 d DOMINIQUE by LMP: 12/12/2024 Previous Ultrasound on: 04/27/2024 Type of prior assessment: GA GA at prior assessment date 7 w + 2 d GA by previous U/S 36 w + 0 d DOMINIQUE by previous Ultrasound: 12/12/2024 Assigned: based on the LMP, selected on 07/28/2024 Assigned GA 36 w + 0 d Assigned DOMINIQUE: 12/12/2024 General Evaluation ----- --------- Cardiac activity Present. FHR 131 bpm. movements: visualized. Presentation: cephalic Placenta: Placental site: anterior, previously documented away from cervical os Amniotic Fluid Assessment ----- --------- Amount of AF: normal amount MVP 7.4 cm Biophysical Profile ----- --------- 2: breathing movements 2: Gross body movements 2: tone 2: Amniotic fluid volume 8/8 Biophysical profile score Maternal Structures ----- --------- Uterus Visualized Cervix Suboptimal Right Ovary Not visualized Left Ovary Not visualized Cul de Sac Suboptimal Impression ----- --------- Single viable intrauterine . BPP is 8/8. Amniotic fluid MVP is 7.4 cm. Recommendations ----- --------- The patient is scheduled for weekly BPP' S. Subsequent follow up or other follow up as clinically determined by primary OB provider unless otherwise specified by MFM. Results forwarded to ordering provider so they can follow up with the patient as necessary. Procedure Note Edil Bullock MD - 11/14/2024 NAME: JEREMY BORDEN : 1995 SEX: F Accession Number: [id number] ORDERING PHYSICIAN: ANGELA GARDNER REFERRING PHYSICIAN: CLIFTON IVERSON Coding ----- --------- Procedures 63165: biophysical profile; without non-stresstesting Indication ----- --------- Abnormal finding on screening of mother-MOB + FOB CF carriers,Depression, Anxiety , Supervision of high risk , cystic fibrosis. History ----- --------- OB History 1. Para 0 [id number] Current ----- --------- Cell free DNA low risk analysis Maternal Assessment ----- --------- Physical Exam Height 163 cm, 5 ft 4 in. Weight 97 kg, 213 lb. Initialweight 86 kg, 190 lb. BMI 36.56 kg/m . Initial BMI 32.61 kg/m . Weight gain 10 kg, 23 lb Method ----- --------- Transabdominal ultrasound examination ----- --------- Dupont . Number of fetuses: 1 Dating ----- --------- LMP on: 03/07/2024 GA by LMP 36 w + 0 d DOMINIQUE by LMP: 12/12/2024 Previous Ultrasound on: 04/27/2024 Type of prior assessment: GA GA at prior assessment date 7 w + 2 d GA by previous U/S 36 w + 0 d DOMINIQUE by previous Ultrasound: 12/12/2024 Assigned: based on the LMP, selected on 07/28/2024 Assigned GA 36 w + 0 d Assigned DOMINIQUE: 12/12/2024 General Evaluation ----- --------- Cardiac activity Present. FHR 131 bpm. movements: visualized.Presentation: cephalic Placenta: Placental site: anterior, previously documented away fromcervical os Amniotic Fluid Assessment ----- --------- Amount of AF: normal amount MVP 7.4 cm Biophysical Profile ----- --------- 2: breathing movements 2: Gross body movements 2: tone 2: Amniotic fluid volume 8/8 Biophysical profile score Maternal Structures ----- --------- Uterus Visualized Cervix Suboptimal Right Ovary Not visualized Left Ovary Not visualized Cul de Sac Suboptimal Impression ----- --------- Single viable intrauterine . BPP is 8/8. Amniotic fluid MVP is 7.4 cm. Recommendations ----- --------- The patient is scheduled for weekly BPP' S. Subsequent follow up or other follow up as clinically determined byprimary OB provider unless otherwise specified by MFM. Results forwarded to ordering provider so they can follow up with thepatient as necessary. us Angela Gardner MD [facility] US ORDERABLES Final Resul [...] documented as of this encounter Care Teams Building Carpenter Relationship Specialty Start Date End Date Armen Sánchez DO [address] [facility] [place] [address] PCP - General Family Medicine 08/25/23 documented as of this encounter
--- OUTSIDE RECORDS SUMMARY | 2024-11-16 14:57 | XMS_ITS | Encounter Summary ---
Author Organization [facility] Address [facility] [id number] [address] [place] [address] Care Team Providers Care Proposal Specialist Name Role Phone PrincessArmen Cedric [place] Primary Care Provider Encounter Details Date Type Department Care Team (Late st Contact Info) Description 08/26/2023 Orders Only [facility] Internal Medicine - Family Medicine [address] [place] [address] Scotty Mahoney DO [address] [place] [address] Rectal bleeding (Primary Dx) Social History Tobacco Use Types Packs/Day Years Used Date Smoking Tobacco: Every Day Cigarettes 1 13.3 Started: 08/01/2011 Smokeless Tobacco: Never Alcohol Use Standard Drinks/Week Comments Not Currently 0 (1 standard drink = 0.6 oz pur e alcohol) [facility] Utilities Answer Date Recorded In the past 12 months has [employer], gas, oil, or water [employer] threatened to shut off services in your [...] week 08/25/2023 How often do you attend [facility] or uatsdin services? Never 08/25/2023 Do you belong to [...] Answer Date Recorded Total Score 6 08/25/2023 [facility] of Occupat ional Health - Occupational [...] [facility] [address] [place] [phone] Gemma Horne MD [address] [place] [address], [place] [address] 11/21/2024 2:00 PM EDT Appointment [facility] US Imaging [address] [place] [address] 11/28/2024 11:00 AM EDT Appointment [facility] US Imaging [address] [place] [address] 11/28/2024 11:30 AM EDT Office Visit Maternal- Medicine at [facility] [address] [place] [address] Edil Bullock MD [address] [address] documented as of this encounter Visit Diagnoses Diagnosis Rectal bleeding- Primary Hemorrhage of rectum and anus documented in this encounter Additional Health Concerns Assessment Noted Time PHQ-9 Depression Total Score: 6 08/25/19 9:30 AM EDT A Body Mass Index follow-up plan has been documented for the patient 08/10/2023 10:14 AM EDT documented as of this encounter Care Teams Proposal Specialist Relationship Specialty Start Date End Date Armen Sánchez DO [address] [facility], [place] [address] PCP - General Family Medicine 08/25/23 documented as of this encounter
--- OUTSIDE RECORDS SUMMARY | 2024-11-16 14:57 | XMS_ITS | Encounter Summary ---
Author Organization [employer] tem Address [facility] [id number] [address] [place] [address] Care Team Providers Care Communication Clerk Name Role Phone SepidehArmen tristan Cedric [place] Primary Care Provider Encounter Details Date Type Department Care Team (Latest Contact Info) Description 11/03/2024 Travel Social History Tobacco Use Types Packs/Day Years Used Date Smoking Tobacco: Every Day Cigarettes 1 13.3 Started: 08/01/2011 Smokeless Tobacco: Never Alcohol Use Standard Drinks/Week Comments Not Currently 0 (1 standard drink = 0.6 oz pur e alcohol) [facility] Utilities Answer Date Recorded In the [...] any clubs o r organizations such as yazdanism groups, unions, fraternal or athletic groups, or [...] Answer Date Recorded Total Score 0 10/18/2024 [facility] of Occupat ional Health - Occupational [...] Description 11/17/2024 2:30 PM EDT Routine [facility] - Women's Services [address] [place] [phone] Gemma Horne MD [address] [place] [address], [place] [address] 11/21/2024 2:00 PM EDT Appointment [facility] US Imaging [address] [place] [address] 11/28/2024 11:00 AM EDT Appointment [facility] US Imaging [address] [place] [address] 11/28/2024 11:30 AM EDT Office Visit Maternal- Medicine at [facility] [address] [place] [address] Edil Bullock MD [address] [address] documented as of this encounter Visit Diagnoses Not on filedocumented in this encounter Additional Health Concerns Assessment Noted Time PHQ-9 Depression Total Score: 0 10/19/19 25 4:00 AM EDT A Body Mass Index follow-up plan has been documented for the patient 08/10/2023 10:14 AM EDT documented as of this encounter Care Teams Communication Clerk Relationship Specialty Start Date End Date Armen Sánchez DO [address], [place] [address] PCP - General Family Medicine 08/25/23 documented as of this encounter
--- OUTSIDE RECORDS SUMMARY | 2024-11-16 14:57 | XMS_ITS | Encounter Summary ---
Author Organization [facility] Address [address] [place] [address] Care Team Providers Care Policy Writer Typist Name Role Phone Armen Sánchez MD Primary Care Provider [phone] Encounter Details Date Type Department Care Team (Late st Contact Info) Description 10/09/2024 Abstract [facility] [address] [place] [address] [place] [phone] Reanna Fernandez MA Social History Tobacco Use [...] on filedocumented in this encounter Care Teams Policy Writer Typist Relationship Specialty Start Date End Date Armen Sánchez MD PCP - General Family Medicine 05/05/24 documented as of this encounter
--- OUTSIDE RECORDS SUMMARY | 2024-11-16 14:57 | XMS_ITS | Encounter Summary ---
Author Organization [facility] [employer] tem Address [id number] [address] [place] [address] Care Team Providers Care Hand Stone Polisher Name Role Phone SepidehArmen rtistan Primary Care Provider Encounter Details Date Type Department Care Team (Late st Contact Info) Description 10/30/2024 Orders Only [facility] Internal Medicine - Family Medicine [address] [place] [address] External, Scanning Provider Social History Tobacco Use Types Packs/Day Years Used Date Smoking Tobacco: Every Day Cigarettes 1 13.3 Started: 08/01/2011 Smokeless Tobacco: Never Alcohol Use Standard Drinks/Week Comments Not Currently 0 (1 standard drink = 0.6 oz pur e alcohol) [facility] Utilities Answer Date Recorded In the past 12 months has [employer], gas, oil, or water company threatened [...] often do you attend chur ch or judaism services? Never 01/27/2024 Do you belong to [...] Answer Date Recorded Total Score 0 10/18/2024 [facility] of Occupat ional Health - Occupational Stress [...] [facility] [address] [place] [phone] Gemma Horne MD [address] [place] [address], [place] [address] 11/21/2024 2:00 PM EDT Appointment [facility] US Imaging [address] [place] [address] 11/28/2024 11:00 AM EDT Appointment [facility] US Imaging [address] [place] [address] 11/28/2024 11:30 AM EDT Office Visit Maternal- Medicine at [facility] [address] [place] [address] Edil Bullock MD [address] [facility] [address] [address] documented as of this encounter Procedures Procedure [...] as of this encounter Care Teams Hand Stone Polisher Relationship Specialty Start Date End Date Armen Sánchez DO [address] [facility], [place] [address] PCP - General Family Medicine 08/25/23 documented as of this encounter
--- OUTSIDE RECORDS SUMMARY | 2024-11-16 14:57 | XMS_ITS | Encounter Summary ---
Author Organization [employer] tem Address [id number] [address] [place] [address] Care Team Providers Care Cone Picker Name Role Phone PrincessArmen Cedric [place] Primary Care Provider Encounter Details Date Type Department Care Team (Late st Contact Info) Description 10/17/2024 Telephone [facility] - Family Medicine [address] [place] [address] Bernadette Zhang CMA Social History Tobacco Use Types Packs/Day Years Used Date Smoking Tobacco: Every Day Cigarettes 1 13.3 Started: 08/01/2011 Smokeless Tobacco: Never Alcohol Use Standard Drinks/Week Comments Not Currently 0 (1 standard drink = 0.6 oz pur e alcohol) [facility] Utilities Answer Date Recorded In the past 12 months has [employer], gas, oil, or water company threatened to [...] often do you attend chur ch or amish services? Never 01/27/2024 Do you belong to [...] Answer Date Recorded Total Score 0 10/18/2024 [facility] of Occupat ional Health - [...] [facility] [address] [place] [phone] Gemma Horne MD [address] [place] [address], [address] [address] 11/21/2024 2:00 PM EDT Appointment [facility] US Imaging [address] [place] [address] 11/28/2024 11:00 AM EDT Appointment [facility] US Imaging [address] [facility] [address] 11/28/2024 11:30 AM EDT Office Visit Maternal- Medicine at [facility] [address] [place] [address] Edil Bullock MD [address] [facility], [address] [place] [address] documented as of this encounter Visit Diagnoses Not on filedocumented in this encounter Additional Health Concerns Assessment Noted Time PHQ-9 Depression Total Score: 0 10/27/19 10:25 AM EDT A Body Mass Index follow-up plan has been documented for the patient 08/10/2023 10:14 AM EDT documented as of this encounter Care Teams Cone Picker Relationship Specialty Start Date End Date Armen Sánchez DO [address] [facility], [facility] [place] [address] PCP - General Family Medicine 08/25/23 documented as of this encounter
--- OUTSIDE RECORDS SUMMARY | 2024-11-16 14:57 | XMS_ITS | Encounter Summary ---
Author Organization [facility] Address [address] [place] [address] Care Team Providers Care Skin Care Instructor Name Role Phone Armen Sánchez MD Primary Care Provider [phone] Encounter Details Date Type Department Care Team (Late st Contact Info) Description 10/03/2024 Abstract [facility] [address] [facility] [place] [address] Curtis Paez DO [address] [facility] [address] [place], [place] [phone] Social History Tobacco Use Types Packs/Day Years [...] on filedocumented in this encounter Care Teams Skin Care Instructor Relationship Specialty Start Date End Date Armen Sánchez MD PCP - General Family Medicine 05/05/24 documented as of this encounter
--- OUTSIDE RECORDS SUMMARY | 2024-11-16 14:57 | XMS_ITS | Encounter Summary ---
Author Organization [facility] [employer] tem Address [id number] [address] [place] [address] Care Team Providers Care Mold Loft Worker Name Role Phone MasoodArmen silverman Primary Care Provider [phone] Encounter Details Date Type Department Care Team (Late st Contact Info) Description 11/14/2024 Orders Only [facility] Internal Medicine - Family Medicine [address] [place] [address] Ref Prov, [place] [address] Social History Tobacco Use Types Packs/Day Years Used Date Smoking Tobacco: Every Day Cigarettes 1 13.3 Started: 08/01/2011 Smokeless Tobacco: Never Alcohol Use Standard Drinks/Week Comments Not Currently 0 (1 standard drink = 0.6 oz pur e alcohol) [facility] Utilities Answer Date Recorded In the past 12 months has [employer], gas, oil, or water company threatened to [...] any clubs o r organizations such as scientologist groups, unions, fraternal or athletic groups, or [...] Date Recorded Total Score 0 10/18/2024 [facility] of Occupat ional Health [...] Recorded Do you need help finding a [facility] career center and/or a training [...] [facility] [address] [place] [phone] Gemma Horne MD [address] [place] [address], [place] [address] 11/21/2024 2:00 PM EDT Appointment [facility] US Imaging [address] [place] [address] 11/28/2024 11:00 AM EDT Appointment [facility] US Imaging [address] [place] [address] 11/28/2024 11:30 AM EDT Office Visit Maternal- Medicine at [facility] [address] [place] [address] Edil Bullock MD [address] [facility] [place] [address] [address] documented as of this encounter Procedures Procedure Name Priority Date/Time Associated Diagnosis Comments US PELVIC WITH TRANSVAGINAL Routine 10/19/2024 2:23 PM EDT documented in this encounter Results * Ultrasound pelvic with transvaginal (10/19/2024 2:23 PM EDT) Anatomical Region Laterality Modality Body, [...] documented as of this encounter Care Teams Mold Loft Worker Relationship Specialty Start Date End Date Armen Sánchez DO [address] [facility], [place] [address] PCP - General Family Medicine 08/25/23 documented as of this encounter
--- OUTSIDE RECORDS SUMMARY | 2024-11-16 14:57 | XMS_ITS | Encounter Summary ---
Author Organization [facility] Address [address] [facility] [[email or web address] [address] Care Team Providers Care Mainframe Systems Administrator Name Role Phone Emi Bronson [facility] Unavailable + [phone] Armen Sánchez MD Primary Care Provider + [phone] Encounter Details Date Type Department Care Team (Late st Contact Info) Description 09/21/2024 Abstract [facility] [address] [place] [phone] Curtis Paez DO [address] [facility] [place] [address] Social History Tobacco Use Types Packs/Day Years [...] on filedocumented in this encounter Care Teams Mainframe Systems Administrator Relationship Specialty Start Date End Date Armen Sánchez MD [address] [place] [address] PCP - General Family Medicine 05/05/24 Emi Bronson [facility] [address] [place] [address] Behavioral Health 04/12/24 09/26/24 documented as of this encounter
--- OUTSIDE RECORDS SUMMARY | 2024-11-16 14:57 | XMS_ITS | Encounter Summary ---
Author Organization [employer] tem Address [id number] [address] [place] [address] Care Team Providers Care Slip Filler Name Role Phone SepidehArmen tristan Cedric [place] Primary Care Provider Encounter Details Date Type Department Care Team (Latest Contact Info) Description 11/14/2024 Travel Social History Tobacco Use Types Packs/Day Years Used Date Smoking Tobacco: Every Day Cigarettes 1 13.3 Started: 08/01/2011 Smokeless Tobacco: Never Alcohol Use Standard Drinks/Week Comments Not Currently 0 (1 standard drink = 0.6 oz pur e alcohol) [facility] Utilities Answer Date Recorded In the [...] often do you attend chur ch or voodoo services? Never 01/27/2024 Do you belong to [...] Answer Date Recorded Total Score 0 10/18/2024 [facility] of Occupat ional Health [...] Description 11/17/2024 2:30 PM EDT Routine Center [facility] Health Services - Women's Services [address] [place] [phone] Gemma Horne MD [address] [place] [address], [place] [address] 11/21/2024 2:00 PM EDT Appointment [facility] US Imaging [address] [place] [address] 11/28/2024 11:00 AM EDT Appointment [facility] US Imaging [address] [place] [address] 11/28/2024 11:30 AM EDT Office Visit Maternal- Medicine at [facility] [address] [place] [address] Edil Bullock MD [address] [address] documented as of this encounter Visit Diagnoses Not on filedocumented in this encounter Additional Health Concerns Assessment Noted Time PHQ-9 Depression Total Score: 0 10/19/19 25 4:00 AM EDT A Body Mass Index follow-up plan has been documented for the patient 08/10/2023 10:14 AM EDT documented as of this encounter Care Teams Slip Filler Relationship Specialty Start Date End Date Armen Sánchez DO [address], [place] [address] PCP - General Family Medicine 08/25/23 documented as of this encounter
--- OUTSIDE RECORDS SUMMARY | 2024-11-16 14:57 | XMS_ITS | Encounter Summary ---
Author Organization [facility] tem Address [id number] [address] [place] [address] Care Team Providers Care Frequency Checker Name Role Phone PrincessArmen Cedric [place] Primary Care Provider [phone] Encounter Details Date Type Department Care Team (Late st Contact Info) Description 09/25/2024 Orders Only Maternal- Medicine at [facility] [address] [place] [address] Ref Prov, [place] [address] Social History Tobacco Use Types Packs/Day Years Used Date Smoking Tobacco: Every Day Cigarettes 1 13.3 Started: 08/01/2011 Smokeless Tobacco: Never Alcohol Use Standard Drinks/Week Comments Not Currently 0 (1 standard drink = 0.6 oz pur e alcohol) [facility] Utilities Answer Date Recorded In the past 12 months has [employer], gas, oil, or water company threatened to [...] Answer Date Recorded Total Score 0 10/27/2023 [facility] of Occupat ional Health - Occupational Stress [...] Recorded Do you need help finding a [facility] and/or a training program? [...] [facility] - [facility]'s Services [address] [place] [phone] Gemma Horne MD [address] [place] [address], [place] [address] 11/21/2024 2:00 PM EDT Appointment [facility] US Imaging [address] [place] [address] 11/28/2024 11:00 AM EDT Appointment [facility] US Imaging [address] [place] [address] 11/28/2024 11:30 AM EDT Office Visit Maternal- Medicine at [facility] [address] [place] [address] Edil Bullock MD [address] [address] documented as of this encounter Procedures Procedure Name Priority Date/Time Associated Diagnosis Comments US PREG LMTD 1 OR MORE FETUS Routine 09/25/2024 8:28 AM EDT documented in this encounter Results * Ultrasound limited 1 or more fetus (09/25/2024 8:28 AM EDT) Anatomical Region Laterality Modality OB-QUALIFICATION ENGINEER Ultrasound us Not In System Ref [...] documented as of this encounter Care Teams Frequency Checker Relationship Specialty Start Date End Date Armen Sánchez DO [address] [facility], [place] [address] PCP - General Family Medicine 08/25/23 documented as of this encounter
--- OUTSIDE RECORDS SUMMARY | 2024-11-16 14:57 | XMS_ITS | Encounter Summary ---
Author Organization [employer] s tem Address [id number] [address] [place] [address] Care Team Providers Care Magnetic Testing Technician Name Role Phone PrincessArmen Cedric [place] Primary Care Provider Encounter Details Date Type Department Care Team (Late st Contact Info) Description 08/25/2023 Telephone [facility] Internal Medicine - Family Medicine [address] [place] [address] Bernadette Zhang CMA Social History Tobacco Use Types Packs/Day Years Used Date Smoking Tobacco: Every Day Cigarettes 1 13.3 Started: 08/01/2011 Smokeless Tobacco: Never Alcohol Use Standard Drinks/Week Comments Not Currently 0 (1 standard drink = 0.6 oz pur e alcohol) [facility] Utilities Answer Date Recorded In the past 12 months has [employer], gas, oil, or water company threatened to [...] often do you attend chur ch or anabaptism services? Never 08/25/2023 Do you belong to [...] Health Services - Women's Services [address] [place] [phone] Gemma Horne MD [address] [facility], [address] [place] [address] 11/21/2024 2:00 PM EDT Appointment [facility] US Imaging [address] [place] [phone] 11/28/2024 11:00 AM EDT Appointment [facility] US Imaging [address] [place] [address] 11/28/2024 11:30 AM EDT Office Visit Maternal- Medicine at [facility] [address] [place] [phone] Edil Bullock MD [address] [facility], [address] [place] [address] documented as of this encounter Visit Diagnoses Not on filedocumented in this encounter Additional Health Concerns Assessment Noted Time PHQ-9 Depression Total Score: 6 08/25/19 9:30 AM EDT A Body Mass Index follow-up plan has been documented for the patient 08/10/2023 10:14 AM EDT documented as of this encounter Care Teams Magnetic Testing Technician Relationship Specialty Start Date End Date Armen Sánchez DO [address] [facility], [place] [address] PCP - General Family Medicine 08/25/23 documented as of this encounter
--- OUTSIDE RECORDS SUMMARY | 2024-11-16 14:57 | XMS_ITS | Encounter Summary ---
Author Organization [facility] Address [address] [place] [address] Care Team Providers Care Lightout Examiner Name Role Phone Armen Sánchez MD Primary Care Provider [phone] Encounter Details Date Type Department Care Team (Late st Contact Info) Description 11/09/2024 Clinisync Result Encounter [facility] Department Unsolicited Magan Paez, DO [address] [facility] [address] [place], [place] [id number] Social History Tobacco Use Types Packs/Day Years [...] AM EDT Narrative 11/09/2024 11:40 [place] [address] Ultrasound Report Signed Patient: SAPNA SERRANO MR#: [id number] : 1995 Acct:[id number] Age/Sex: 29 / F ADM Date: 11/09/24 Loc: [facility] 250-[address]: Magan Paez D.O. Ordering Physician: Magan Paez D.O. Date of Service: 11/09/24 Procedure(s): US OB BPP w non-stress Accession Number(s): [id number] cc: ARMEN SÁNCHEZ ; Magan Paez D.O. [place] [address] Patient Name: SAPNA SERRANO MRN: [facility]:[id number] date: 1995 Sex: F Assigned Patient Location: [facility] Current Patient Location: [facility] Accession/Order Number: [id number] Exam Date: 11/09/2024 11:36 Report Date: 11/09/2024 11:37 At the request of: MAGAN PAEZ DO Procedure: US OB BPP w non-stress BIOPHYSICAL PROFILE: CLINICAL INFORMATION: CYSTIC FIBROSIS CARRIER O09.899 COMPARISON: 11/02/2024 There is a single live intrauterine gestation in cephalic presentation. The reported gestational age is 35 weeks 2 days. The heart rate beats per minute. [...] Rahman M.D. 11/09/2024 11:37 AM Dictation Location: [place] [address] Electronically authenticated by: [id number] Y Date: 11/09/2024 11:37 Dictated By: Laura Rahman M.D. Signed By: 11/09/24 1140 DD/ 1137 TD/TT: Freezer Laboratory Technician: Procedure Note Radiology, Radiologist, MD - 11/09/2024 [place] [address] Ultrasound Report Signed Patient: SAPNA SERRANO KMR#: [id number] : 1995Acct:[id number] Age/Sex: Date: 11/09/24 Loc: [facility] 250-[address]: Magan Paez D.O. Ordering Physician: Magan Paez D.O. Date of Service: 11/09/24 Procedure(s): US OB BPP w non-stress Accession Number(s): [id number] cc: ARMEN SÁNCHEZ ; Magan Paez D.O. The [place] [address] Patient Name: SAPNA SERRANO MRN: [id number] date: 1995 Sex: F Assigned Patient Location: [facility] Current Patient Location: [facility] Accession/Order Number: [id number] Exam Date: 11/09/2024 11:36 Report Date: 11/09/2024 11:37 At the request of: MAGAN PAEZ DO Procedure: US OB BPP w non-stress BIOPHYSICAL PROFILE: CLINICAL INFORMATION: CYSTIC FIBROSIS CARRIER O09.899 COMPARISON: 11/02/2024 There is a single live intrauterine gestation in cephalic presentation.The reported gestational age is 35 weeks 2 days. The heart [id number] beats per minute. FINDINGS: TONE: 1 or [...] Rahman M.D. 11/09/2024 11:37 AM Dictation Location: [facility] Electronically authenticated by: [id number] Y Date: 1:37 Dictated By: Laura Rahman M.D. Signed By:11/09/24 1140 DD/ 1137 TD/TT: Freezer Laboratory Technician: us Magan Jeannine DO [facility] Final Result documented in this encounter Visit Diagnoses Not on filedocumented in this encounter Care Teams Lightout Examiner Relationship Specialty Start Date End Date Armen Sánchez MD PCP - General Family Medicine 05/05/24 documented as of this encounter
--- OUTSIDE RECORDS SUMMARY | 2024-11-16 14:57 | XMS_ITS | Clinical Summary ---
Demographics Address [address] [place] [address] Home Phone Work Phone Mobile Phone Email Address Email Address Preferred Language Belarusian Marital Status Single Episcopal Affiliation Unknown Race White Ethnic Group Not or Lati no Author Organization [facility] Address [address] [facility], [address] [place] [address] Care Team Providers Care Applications Scientist Name Role Phone Armen Sánchez Primary Care Provider [phone] Allergies Active Allergy Reactions Criticality Noted Date [...] today Need for prophylactic vaccin ation against plreziptbr-klqxpii-erjwerepi (DTP) 08/16/2018 Assessment & Plan (08/16/2018 4:03 [...] Hospital Encounter [facility] Delivery [address] [place] [address] Victorino Christie, Discharge Disposition: Home or Self [...] - 1-dose 75+ series) 2068 HPV vaccine (No Doses Required) Completed Hepatitis A vaccine Aged Out No longe [...] Personal/Family Self 1995 [address] [place] [address] [facility] Care Teams Applications Scientist Relationship Specialty Start Date End Date Armen Sánchez DO [address] [facility] [place] [address] PCP - General Family Medicine 04/27/24
--- OUTSIDE RECORDS SUMMARY | 2024-11-16 14:57 | XMS_ITS | Encounter Summary ---
Author Organization [employer] Address [id number] [address] [place] [address] Care Team Providers Care Sizer Machine Name Role Phone SepidehArmen tristan Cedric [place] Primary Care Provider Encounter Details Date Type Department Care Team (Latest Contact Info) Description 11/05/2024 Travel Social History Tobacco Use Types Packs/Day Years Used Date Smoking Tobacco: Every Day Cigarettes 1 13.3 Started: 08/01/2011 Smokeless Tobacco: Never Alcohol Use Standard Drinks/Week Comments Not Currently 0 (1 standard drink = 0.6 oz pur e alcohol) [facility] Utilities Answer Date Recorded In the [...] often do you attend chur ch or restorationist services? Never 01/27/2024 Do you belong to [...] Answer Date Recorded Total Score 0 10/18/2024 [facility] - [...] Description 11/17/2024 2:30 PM EDT Routine [facility] Health Services - Women's Services [address] [place] [phone] Gemma Horne MD [address] [place] [address], [place] [address] 11/21/2024 2:00 PM EDT Appointment [facility] US Imaging [address] [place] [address] 11/28/2024 11:00 AM EDT Appointment [facility] US Imaging [address] [place] [address] 11/28/2024 11:30 AM EDT Office Visit Maternal- Medicine at [facility] [address] [place] [address] Edil Bullock MD [address] [address] documented as of this encounter Visit Diagnoses Not on filedocumented in this encounter Additional Health Concerns Assessment Noted Time PHQ-9 Depression Total Score: 0 10/19/19 25 4:00 AM EDT A Body Mass Index follow-up plan has been documented for the patient 08/10/2023 10:14 AM EDT documented as of this encounter Care Teams Sizer Machine Relationship Specialty Start Date End Date Armen Sánchez DO [address], [place] [address] PCP - General Family Medicine 08/25/23 documented as of this encounter
--- OUTSIDE RECORDS SUMMARY | 2024-11-16 14:57 | XMS_ITS | Encounter Summary ---
Author Organization [facility] [employer] s tem Address [facility] [id number] [address] [place] [address] Care Team Providers Care Correctional Officer Lieutenant Name Role Phone MasoodArmen silverman Primary Care Provider [phone] Encounter Details Date Type Department Care Team (Late st Contact Info) Description 10/25/2024 Orders Only [facility] Internal Medicine - Family Medicine [address] [place] [address] Ref Prov, [place] [address] Social History Tobacco Use Types Packs/Day Years Used Date Smoking Tobacco: Every Day Cigarettes 1 13.3 Started: 08/01/2011 Smokeless Tobacco: Never Alcohol Use Standard Drinks/Week Comments Not Currently 0 (1 standard drink = 0.6 oz pur e alcohol) [facility] Utilities Answer Date Recorded In the past 12 months has [employer], gas, oil, or water company threatened to [...] Recorded Do you need help finding a [facility] and/or a training [...] [facility] [address] [place] [phone] Gemma Horne MD [address] [place] [address], [place] [address] 11/21/2024 2:00 PM EDT Appointment [facility] US Imaging [address] [place] [phone] 11/28/2024 11:00 AM EDT Appointment [facility] US Imaging [address] [place] [address] 11/28/2024 11:30 AM EDT Office Visit Maternal- Medicine at [facility] [address] [place] [address] Edil Bullock MD [address] [facility] [address] [address] documented as of this encounter Procedures Procedure [...] documented as of this encounter Care Teams Correctional Officer Lieutenant Relationship Specialty Start Date End Date Armen Sánchez DO [address] [facility], [place] [address] PCP - General Family Medicine 08/25/23 documented as of this encounter
--- OUTSIDE RECORDS SUMMARY | 2024-11-16 14:57 | XMS_ITS | Clinical Summary ---
Author Organization [employer] tem Address [id number] [address] [place] [address] Care Team Providers Care Housekeeper/Laundry Assistant Name Role Phone MasoodArmen silverman Primary Care [...] Consult: []Palliative Care Consult: []SGM: []Life Connection: [][place]: [] MRI: []Nationwide: []UofM: []UH: [x]JO CHS: per Office Delivery Recommendation: [] Term at local hospital [x] Term at [facility] Surveillance Plan: [x] F/U Survey sched 08/25/24 at [facility] [x] Growth q _4_ weeks Sched [...] Encounters Date Type Department Care Team Description 11/14/2024 3:27 PM EDT - 11/14/2024 11:59 PM EDT Hospital Encounter [facility] US Imaging [address] [place] [address] Supervision of high risk in third trimester; Cystic fibrosis carrier, antepartum; Abnormal genetic test during ; Maternal care for other (suspected) abnormality and damage, gastrointestinal anomalies, not applicable or unspecified; Cystic fibrosis carrier; Family history of developmental delay; Family history of spina bifida Discharge Disposition: Home 11/14/2024 Travel 11/14/2024 Orders [facility] [address] [place] [address] Ref Prov, Not In System 11/07/2024 2:50 PM EDT - 11/07/2024 11:59 PM EDT Hospital Encounter [facility] US Imaging [address] [place] [address] Angela Perez MD Supervision of high risk in third trimester; Cystic fibrosis carrier, antepartum; Abnormal genetic test during ; Maternal care for other (suspected) abnormality and damage, gastrointestinal anomalies, not applicable or unspecified; Cystic fibrosis carrier; Family history of developmental delay; Family history of spina bifida Discharge Disposition: Home 11/05/2024 Travel 11/03/2024 1:00 PM EDT Routine [facility] Services - Women's Services [address] [place] [address] Tiffany Easton MD GA: 34w3d 11/03/2024 Travel 10/30/2024 11:30 AM EDT Office Visit Maternal- Medicine at [facility] [address] [place] [address] Angela Perez MD Cystic fibrosis carrier, antepartum (Primary Dx); Maternal care for other (suspected) abnormality and damage, gastrointestinal anomalies, not applicable or unspecified; Overweight 10/30/2024 10:43 AM EDT - 10/30/2024 11:59 PM EDT Hospital Encounter [facility] - [facility] US Imaging [address] [place] [address] Abnormal genetic test during ; Maternal care for other (suspected) abnormality and damage, gastrointestinal anomalies, not applicable or unspecified; Cystic fibrosis carrier Discharge Disposition: Home 10/30/2024 Orders Only Maternal- Medicine at [facility] [address] [place] [address] Jocy Maradiaga LPN Supervision of high risk in third trimester (Primary Dx); Cystic fibrosis carrier, antepartum; Abnormal genetic test during ; Maternal care for other (suspected) abnormality and damage, gastrointestinal anomalies, not applicable or unspecified; Cystic fibrosis carrier; Family history of developmental delay; Family history of spina bifida 10/30/2024 Travel 10/30/2024 Orders Only [facility] [address] [place] [address] External, Scanning Provider 10/25/2024 Orders Only [facility] Medicine - Family Medicine [address] [place] [address] Ref Prov, Not In System 10/24/2024 Telephone Maternal- Medicine at [facility] [address] [place] [address] Suresh Valencia MD 10/23/2024 1:45 PM EDT Support Visit Maternal- Medicine at [facility] [address] [place] [address] Cystic fibrosis carrier, antepartum (Primary Dx); Supervision of high risk in third trimester; Overweight 10/23/2024 12:53 PM EDT - 10/23/2024 11:59 PM EDT Hospital Encounter [facility] US Imaging [address] [place] [address] Abnormal genetic test during ; Maternal care for other (suspected) abnormality and damage, gastrointestinal anomalies, not applicable or unspecified; Cystic fibrosis carrier Discharge Disposition: Home 10/23/2024 Travel 10/19/2024 3:14 PM EDT - 10/19/2024 11:59 PM EDT Hospital Encounter [facility] US Imaging [address] [place] [address] Abnormal genetic test during ; Maternal care for other (suspected) abnormality and damage, gastrointestinal anomalies, not applicable or unspecified; Cystic fibrosis carrier Discharge Disposition: Home 10/19/2024 2:00 PM EDT [facility] [address] [place] [address] Clifton Bond DO GA: 32w2d 10/18/2024 Travel 10/17/2024 Telephone [facility] - Family Medicine [address] [place] [address] Bernadette Zhang CMA 10/13/2024 Orders Only Maternal- Medicine at [facility] [address] [place] [address] Miriam Joseph, RN Abnormal genetic test during (Primary Dx); Maternal care for other (suspected) abnormality and damage, gastrointestinal anomalies, not applicable or unspecified; Cystic fibrosis carrier 10/12/2024 3:05 PM EDT - 10/12/2024 11:59 PM EDT Hospital Encounter [facility] - [facility] US Imaging [address] [place] [address] Obesity in , antepartum; Supervision of high risk , antepartum Discharge Disposition: Home 10/11/2024 Travel 10/10/2024 [facility] - Women's Services [address] [place] [address] Lyric Sánchez RN 10/05/2024 3:13 PM EDT - 10/05/2024 11:59 PM EDT Hospital Encounter [facility] - [facility] US Imaging [address] [place] [address] Supervision of high risk , antepartum; Obesity in , antepartum Discharge Disposition: Home 10/05/2024 Travel 09/29/2024 4:25 PM EDT Office Visit Maternal- Medicine at [facility] [address] [place] [address] Edil Bullock MD 29 weeks gestation of (Primary Dx); Cystic fibrosis carrier; Maternal care for other (suspected) abnormality and damage, gastrointestinal anomalies, not applicable or unspecified 09/29/2024 2:41 PM EDT - 09/29/2024 11:59 PM EDT Hospital Encounter [facility] US Imaging [address] [place] [address] Suresh Valencia MD Cystic fibrosis carrier; Abnormal genetic test during Discharge Disposition: Home 09/29/2024 Travel 09/25/2024 Orders Only Maternal- Medicine at [facility] [address] [place] [address] Ref Prov, Not In System 09/15/2024 Telephone Maternal- Medicine at [facility] [address] [place] [address] Miriam Joseph RN 09/07/2024 10:30 AM EDT Office Visit [facility] [address] [facility] [address] [place] [phone] Rashida Silva MD 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); Encounter for consultation 09/07/2024 Orders Only Maternal- Medicine at [facility] [address] [place] [address] Miriam Joseph RN 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); Abnormal genetic test during 09/05/2024 Travel 08/25/2024 Travel 08/18/2024 Orders Only Maternal- Medicine at [facility] [address] [place] [address] Barbra Samuel RN 08/18/2024 Orders Only Maternal- Medicine at [facility] [address] [place] [address] Barbra Samuel RN 08/17/2024 Telephone Maternal- Medicine at [facility] [address] [place] [address] Rachel Rodriguez LGC from Last 3 Months [...] = 0.6 oz pur e alcohol) [facility] Utilities Answer Date Recorded In [...] any clubs o r organizations such as cheondoism groups, unions, fraternal or athletic groups, or [...] Answer Date Recorded Total Score 0 10/18/2024 [facility] - [...] Recorded Do you need help finding a [employer] ocal career center and/or a training program? [...] for Health Services - Women's Services [address] [facility] [place] [address] Gemma Horne MD [address] [facility], [address] [address] 11/21/2024 2:00 PM EDT Appointment [facility] - [facility] US Imaging [address] [facility] [place] [address] 11/28/2024 11:00 AM EDT Appointment [facility] - [facility] US Imaging [address] [place] [address] 11/28/2024 11:30 AM EDT Office Visit Maternal- Medicine at [facility] [address] [facility] [place] [address] Edil Bullock MD [address] [facility] [address], [address] [place] [address] Health Maintenance Due Date Last Done Comments COVID-19 Vaccine (2023-2 5 season) 2023 12/11/2020, 11/20/2020 Adult BMI Follow Up Plan 08/09/2024 08/10/2023 Influenza Vaccine 12/04/2024 Tobacco Counseling 02/24/2025 08/25/2023 Depression Screening 10/18/2025 10/18/2024 Adult BMI Screening 11/03/2025 11/03/2024 Tobacco Screening 11/03/2025 11/03/2024 Pap Smear 07/07/2027 07/06/2024, 06/2024, 07/06/2024, Additional history exists DTaP,Tdap and [...] developmental delay Family history of spina bifida US [facility] AMNIOTIC FLUID VOLUME ASSESSMENT Routine 11/07/2024 3:23 [...] Chlamydia infection, currently in third trimester US [facility] OB FOLLOW-UP, 1 FETUS Routine 10/30/2024 12:14 PM EDT Abnormal genetic test during Maternal care for other (suspected) abnormality and damage, gastrointestinal anomalies, not applicable or unspecified Cystic fibrosis carrier NONSTRESS TEST Routine 10/24/2024 4:16 PM EDT Supervision of high risk in third trimester US [facility] LMTD OB, 1 OR MORE FETUS Routine 10/23/2024 1:31 PM EDT Abnormal genetic test during Maternal care for other (suspected) abnormality and damage, gastrointestinal anomalies, not applicable or unspecified Cystic fibrosis carrier US [facility] AMNIOTIC FLUID VOLUME ASSESSMENT Routine 10/19/2024 3:42 PM EDT Abnormal genetic test during Maternal care for other (suspected) abnormality and damage, gastrointestinal anomalies, not applicable or unspecified Cystic fibrosis carrier US PELVIC WITH TRANSVAGINAL Routine 10/19/2024 2:23 PM EDT US [facility] AMNIOTIC FLUID VOLUME ASSESSMENT Routine 10/12/2024 4:46 [...] to Health Maintenance Results * US MFM BIOPHYSICAL PROFILE WO NST (11/14/2024 4:07 PM EDT) Only the most recent of9 resultswithin the time period is included. Anatomical Region Laterality Modality OB-ACCOUNT DEVELOPMENT REPRESENTATIVE Ultrasound 11/14/2024 3:46 PM EDT Narrative 11/14/2024 4:12 PM EDT NAME: JEREMY BORDEN : 1995 SEX: F Accession Number: [id number] ORDERING PHYSICIAN: ANGELA PEREZ REFERRING PHYSICIAN: CLIFTON BOND Coding ----- --------- Procedures 36755: biophysical profile; without non-stress testing Indication ----- --------- Abnormal finding on screening of mother-MOB + FOB CF carriers, Depression, Anxiety , Supervision of high risk , cystic fibrosis. History ----- --------- OB History 1. Para 0 [id number] Current ----- --------- Cell free DNA low [...] BORDEN : 1995 SEX: F Accession Number: [id number] ORDERING PHYSICIAN: ANGELA PEREZ REFERRING PHYSICIAN: CLIFTON BOND Coding ----- --------- Procedures [id number]: biophysical profile; without non-stresstesting Indication ----- --------- Abnormal finding on screening of mother-MOB + FOB CF carriers,Depression, Anxiety , Supervision of high risk , cystic fibrosis. History ----- --------- OB History 1. Para 0 [id number] Current ----- --------- Cell free DNA low [...] ----- --------- LMP on: 03/07/2024 [place] by [facility] 36 w + 0 d DOMINIQUE by [...] thepatient as necessary. us Angela Perez MD [facility] ORDERABLES Final Resul t * Chlamydia/Gonorrhoeae by PCR, Urine (11/03/2024 2:16 PM EDT) [facility] Signature GONORRHOEAE PCR, U Negative Negative 11/05/2024 10:16 AM EDT [facility] Comment:Neisseria gonorrhoea e not detected by nucleic acid amplification. This does not exclude the possibility of infection because results are dependent on adequate specimen collection. CHLAMYDIA PCR, U Negative Negative 11/05/2024 10:16 AM EDT [facility] Comment:Chlamydia trachomati s not detected by nucleic acid amplification. This does not exclude the possibility of infection because results are dependent on adequate specimen collection. Urine Urine / Unknown 11/03/2024 2 :16 PM EDT 11/03/2024 2:16 PM EDT us Tiffany Easton MD MICROBIOLOGY - GENERAL O RDERABLES Final Result [facility] [address] [place] [address], * nonstress test - Maternal Medicine (10/24/2024 4:16 PM EDT) Narrative [facility] - 10/24/2024 4:16 PM EDT Patient Name: Sapna Serrano Patient : 1995 NST Objective Findings: Variability: (!) Marked Decelerations: None Accelerations: Yes Acoustic Stimulator: No Baseline: 140 BPM Uterine Irritability: No Contractions: Not present NST Interpretation: Nonstress Test Interpretation: Reactive (Suresh Valencia MD) Comments: Dr Valencia rvieweaydee tracing and is reactive, baby active no ctxs (Jennifer Sheets) NST performed by: Jennifer Sheets RN 10/24/2024 4:16 PM us Corinne Driver DO OB GYNE ORDERABLES Final Res ult Performing Organization Address [facility] Co de Phone Number ASOBGYN * Ultrasound pelvic with transvaginal (10/19/2024 2:23 PM EDT) Only the most recent of2 resultswithin the time period is included. Anatomical Region Laterality Modality Body, Pelvis Ultrasound us Not In System Ref Prov IMG US ORDERABLES Final R esult * Ultrasound limited 1 or more fetus (09/25/2024 8:28 AM EDT) Anatomical Region Laterality Modality OB-ACCOUNT DEVELOPMENT REPRESENTATIVE Ultrasound us Not In System Ref Prov [...] ORDERABLES Leti l Result Performing Organization Address City/[facility] Co de Phone Number MANUALLY TRANSCRIBED [...] Self 1995 [address] [place] [address] [employer] Member Subscriber Plan / Payer (Ef fective 2023-Present) Name:Sapna Serrano Relation to Subscriber:Self Name:Sapna Serrano Payer ID:Not on file Type:Not on file Address: [place] [id number] Care Teams Housekeeper/Laundry Assistant Relationship Specialty Start Date End Date Armen Sánchez DO [address], [facility] [place] [address] PCP - General Family Medicine 08/25/23
--- OUTSIDE RECORDS SUMMARY | 2024-11-16 14:57 | XMS_ITS | Encounter Summary ---
Author Organization [facility] Address [address] [place] [address] Care Team Providers Care Insurance Counselor Name Role Phone Emi Bronson [facility] Unavailable + [phone] Armen Sánchez MD Primary Care Provider + [phone] Encounter Details Date Type Department Care Team (Late st Contact Info) Description 09/21/2024 Abstract [facility] [address] [place] [phone] Curtis Paez DO [address] [place] [address] Social History Tobacco Use Types Packs/Day Years [...] on filedocumented in this encounter Care Teams Insurance Counselor Relationship Specialty Start Date End Date Armen Sánchez MD [address] [place] [address] PCP - General Family Medicine 05/05/24 Emi Bronson [facility] [address] [place] [address] Behavioral Health 04/12/24 09/26/24 documented as of this encounter
--- OUTSIDE RECORDS SUMMARY | 2024-11-16 14:57 | XMS_ITS | Encounter Summary ---
Author Organization [employer] tem Address [id number] [address] [place] [address] Care Team Providers Care Lithographers Printer Name Role Phone Armen Sánchez Primary Care Provider Encounter Details Date Type Department Care Team (Late st Contact Info) Description 08/17/2023 Orders Only [facility] Obstetrics/Gynecology [address] [place] [address] La Murray CMA Screening for STD (sexually [...] Description 11/17/2024 2:30 PM EDT Routine [facility] Services - Women's Services [address] [place] [address] Gemma Horne MD [facility], [place] [address] 11/21/2024 2:[address] [facility] US Imaging [address] [place] [address] 11/28/2024 11:[address] [facility] US Imaging [address] [place] [address] 11/28/2024 11:30 AM EDT Office Visit Maternal- Medicine at [facility] [address] [place] [address] Edil Bullock MD [address] [facility], [address] [place] [address] documented as of this encounter Procedures Procedure [...] MD LAB BLOOD ORDERABLES Final Res ult [facility] * Syphilis Total(Unknown Syphilis Status) (08/10/2023) QUANTITATIVE RPR Non Reactive [facility] 08/10/2023 Claire Robertson MD LAB BLOOD ORDERABLES Final Res ult Performing Organization Address [facility] de Phone Number [facility] * Hepatitis panel, acute (08/10/2023) Hep A IgM Ab Negative [facility] Hep B Core IgM Ab Negative Negative [facility] Hepatitis B Surface Ag Nonreactive Borderline, Nonreactive [facility] Hepatitis C Ab Negative Negative [facility] 08/10/2023 Claire Robertson MD LAB BLOOD ORDERABLES Final Res ult Performing Organization Address [facility] de Phone Number [facility] documented in this encounter Visit Diagnoses Diagnosis Screening for STD (sexually transmitted disease) documented in this encounter Additional Health Concerns Assessment Noted Time PHQ-9 Depression Total Score: 5 08/10/19 9:41 AM EDT A Body Mass Index follow-up plan has been documented for the patient 08/10/2023 10:14 AM EDT documented as of this encounter Care Teams Lithographers Printer Relationship Specialty Start Date End Date Armen Sánchez DO [address] [facility], [place] [address] PCP - General Family Medicine 08/25/23 documented as of this encounter
--- OUTSIDE RECORDS SUMMARY | 2024-11-16 14:58 | XMS_ITS | Encounter Summary ---
Author Organization [facility] Address [address] [facility] [place] [address] Care Team Providers Care Sql Database Administrator Name Role Phone Emi Bronson [facility] Unavailable + [phone] Armen Sánchez MD Primary Care Provider + [phone] Encounter Details Date Type Department Care Team (Late st Contact Info) Description 05/09/2024 Abstract [facility] [address] [place] [phone] Curtis Paez DO [address] [facility] [address] [place] [address] Social History Tobacco Use Types Packs/Day Years [...] on filedocumented in this encounter Care Teams Sql Database Administrator Relationship Specialty Start Date End Date Armen Sánchez MD [address] [place] [address] PCP - General Family Medicine 05/05/24 Emi Bronson [facility] [address] [place] [address] Behavioral Health 04/12/24 09/26/24 documented as of this encounter
--- OUTSIDE RECORDS SUMMARY | 2024-11-16 14:58 | XMS_ITS | Encounter Summary ---
Author Organization [facility] Address [address] [place] [address] Care Team Providers Care Bliss Press Operator Name Role Phone Emi Bronson [facility] Unavailable + [phone] Armen Sánchez MD Primary Care Provider + [phone] Encounter Details Date Type Department Care Team (Late st Contact Info) Description 09/14/2023 Abstract [facility] [address] [facility] [address] [place] [phone] Nav Ames MD [address] [facility] [address] [place] [address] Social History Tobacco Use Types Packs/Day Years [...] on filedocumented in this encounter Care Teams Bliss Press Operator Relationship Specialty Start Date End Date Armen Sánchez MD [address] [facility] [address] [place] [address] PCP - General Family Medicine 05/05/24 Emi Bronson, [facility] [address] [facility] [address] [place] [phone] Behavioral Health 04/12/24 09/26/24 documented as of this encounter
--- OUTSIDE RECORDS SUMMARY | 2024-11-16 14:58 | XMS_ITS | Encounter Summary ---
Author Organization [facility] [employer] s tem Address [id number] [address] [place] [address] Care Team Providers Care Print Color Operator Name Role Phone MasoodArmen silverman Primary Care Provider Encounter Details Date Type Department Care Team (Late st Contact Info) Description 05/01/2024 Orders Only [facility] Internal Medicine - Family Medicine [address] [place] [address] Ref Prov, [place] [address] Social History Tobacco Use Types Packs/Day Years Used Date Smoking Tobacco: Every Day Cigarettes 1 13.3 Started: 08/01/2011 Smokeless Tobacco: Never Alcohol Use Standard Drinks/Week Comments Not Currently 0 (1 standard drink = 0.6 oz pur e alcohol) [facility] Utilities Answer Date Recorded In the past 12 months has [employer], gas, oil, or water company threatened [...] Do you need help finding a [facility] career center and/or a training [...] Info) Description 11/17/2024 2:[address] [facility] Services - Women's Services [address] [place] [address] Gemma Horne MD [address] [place] [address], [address] [address] 11/21/2024 2:00 PM EDT Appointment [facility] US Imaging [address] [place] [address] 11/28/2024 11:00 AM EDT Appointment [facility] US Imaging [address] [place] [address] 11/28/2024 11:30 AM EDT Office Visit Maternal- Medicine at [facility] [address] [place] [address] Edil Bullock MD [address] [address] documented as of this encounter Procedures Procedure [...] documented as of this encounter Care Teams Print Color Operator Relationship Specialty Start Date End Date Armen Sánchez DO [address] [facility] [place] [address] PCP - General Family Medicine 08/25/23 documented as of this encounter
--- OUTSIDE RECORDS SUMMARY | 2024-11-16 14:58 | XMS_ITS | Encounter Summary ---
Author Organization [facility] Address [address] [place] [address] Care Team Providers Care Sprayer Insecticide Name Role Phone Emi Bronson [facility] Unavailable + [phone] Armen Sánchez MD Primary Care Provider + [phone] Encounter Details Date Type Department Care Team (Late st Contact Info) Description 08/10/2023 Abstract [facility] [address] [place] [address] Curtis Paez DO [address] [place] [place], [place] [address] Social History Tobacco Use Types Packs/Day Years [...] on filedocumented in this encounter Care Teams Sprayer Insecticide Relationship Specialty Start Date End Date Armen Sánchez MD [address] [facility] [address] [place] [address] PCP - General Family Medicine 05/05/24 Emi Bronson, [facility] [address] [facility] [address] [place] [address] Behavioral Health 04/12/24 09/26/24 documented as of this encounter
--- OUTSIDE RECORDS SUMMARY | 2024-11-16 14:58 | XMS_ITS | Clinical Summary ---
Author Organization [facility] Address [address] [place] [address] Care Team Providers Care Radiator Tester Name Role Phone Armen Sánchez MD Primary [...] Diagnosed Date H/O LEEP 10/17/2024 Third trimester ([facility]) 10/03/2024 29 weeks gestation of ([facility]) 2024 HSV infection 10/03/2024 Placental abnormality in third trimester ([facility]) 09/21/2024 History of loop electrosurgi ledy excision procedure (LEEP) of cervix affecting , antepartum ([facility]) 09/21/2024 Cystic fibrosis carrier, antepartum ([facility]) Moderate episode of recurrent major depressive d [...] Routine [facility] [address] [place] [phone] Jocy Vaughn PA Third trimester ([facility] 32 weeks gestation of ([facility]); H/O LEEP; Cystic fibrosis carrier, antepartum ([facility]); HSV infection 10/17/2024 Bamboo flowsheet [facility] [address] [place] [address] Jocy Vaughn PA 10/16/2024 Travel 10/12/2024 Clinisync Result Encounter NOMS External Department Unsolicited Magan Paez, DO 10/09/2024 Abstract [facility] [address] [place] [address] Reanna Fernandez MA 10/04/2024 Clinisync Result Encounter NOMS External Department Unsolicited Magan Paez, DO 10/04/2024 Telephone [facility] [address] [place] [address] Magan Paez, DO 10/03/2024 8:40 AM EDT Routine [facility] [address] [place] [address] Magan Paez, Third trimester ([facility]); Cystic fibrosis carrier, antepartum ([facility]); Moderate episode of recurrent major depressive disorder (HCC); History of loop electrosurgical excision procedure (LEEP) of cervix affecting , antepartum ([facility]); HSV infection; 30 weeks gestation of ([facility]); Maternal care for other (suspected) abnormality and damage, gastrointestinal anomalies, not applicable or unspecified ([facility]) 10/03/2024 Telephone [facility] [address] [...] Paez, DO Placental abnormality in third trimester ([facility]); Cystic fibrosis carrier, antepartum ([facility]); History of loop electrosurgical excision procedure (LEEP) of cervix affecting , antepartum ([facility]) 09/21/2024 Telephone [facility] ESPAÑAGYN [address] [place] [phone] Antoinette Jackman, DATA CONTROL ASSISTANT 09/19/2024 Telephone [facility] [address] [place] [phone] Tato Laura, DATA CONTROL ASSISTANT 09/18/2024 3:40 PM EDT Routine [facility] [address] [place] [phone] Magan Paez, Anxiety, generalized (Primary Dx); Second trimester ([facility]); 27 weeks gestation of ([facility]); Cystic fibrosis carrier, antepartum ([facility]) 09/18/2024 Bamboo flowsheet [facility] [address] [place] [phone] Magan Paez, 09/18/2024 Travel 08/30/2024 9:50 AM EDT Routine [facility] [address] [place] [address] Jocy Vaughn PA Second trimester ([facility]); 25 weeks gestation of ([facility]) 08/30/2024 Clinisync Result Encounter NOMS External Department Unsolicited Magan Paez, 08/30/2024 Bamboo flowsheet [facility] [address] [place] [phone] Jocy Vaughn PA from Last 3 Months Family History Medical [...] Routine 10/03/2024 9:04 AM EDT Third trimester ([facility]) US OB BPP W NON-STRESS 09/25/2024 8:08 AM EDT US OB PLACENTA 09/21/2024 2:53 PM EDT US OB CERVICAL LENGTH 09/21/2024 2:40 PM EDT GLUCOSE 1 HOUR Routine 08/30/2024 11:28 AM EDT ALL CBC WITH AUTO DIFF Routine 08/30/2024 11:28 AM EDT POCT URINALYSIS DIPSTICK Routine 08/30/2024 11:24 AM EDT Second trimester ([facility]) from Last 3 Months Results * US OB BPP W NON-STRESS (11/09/2024 11:37 AM EDT) Only the most recent of6 resultswithin the time period is included. Anatomical Region Laterality Modality Other 11/09/2024 11:3 7 AM EDT Narrative 11/09/2024 11:40 [place] [address] Ultrasound Report Signed Patient: MICHI SERRANO MR#: [id number] : 1995 Acct:[id number] Age/Sex: 29 / F ADM Date: 11/09/24 Loc: [facility] 250-[address]: Magan Paez D.O. Ordering Physician: Magan Paez D.O. Date of Service: 11/09/24 Procedure(s): US OB BPP w non-stress Accession Number(s): [id number] cc: ARMEN SÁNCHEZ Corey D.O. The [place] [id number] Patient Name: MICHI SERRANO MRN: [id number] date: 1995 Sex: F Assigned Patient Location: [facility] Current Patient Location: [facility] Accession/Order Number: [id number] Exam Date: 11/09/2024 11:36 Report Date: 11/09/2024 11:37 At the request of: MAGAN PAEZ DO Procedure: US OB BPP w non-stress BIOPHYSICAL PROFILE: CLINICAL INFORMATION: CYSTIC FIBROSIS CARRIER O09.899 COMPARISON: 11/02/2024 There is a single live intrauterine gestation in cephalic presentation. The reported gestational age is 35 weeks 2 days. The heart rate [id number] beats per minute. FINDINGS: TONE: 1 or [...] Rahman M.D. 11/09/2024 11:37 AM Dictation Location: [facility] Electronically authenticated by: [id number] Y Date: 11/09/2024 11:37 Dictated By: Laura Rahman M.D. Signed By: 11/09/24 1140 DD/ 1137 TD/TT: Retail Wireless Sales Consultant: Procedure Note Radiology, Radiologist, MD - 11/09/2024 [place] [address] Ultrasound Report Signed Patient: MICHI SERRANO KMR#: [id number] : 1995Acct:[id number] Age/Sex: 29 / FADM Date: 11/09/24 Loc: [facility] 250-[address]: Magan Paez D.O. Ordering Physician: Magan Paez D.O. Date of Service: 11/09/24 Procedure(s): US OB BPP w non-stress Accession Number(s): [id number] cc: ARMEN SÁNCHEZ Corey D.O. The [place] [address] Patient Name: MICHI SERRANO MRN: [facility]:[id number] date: 1995 Sex: F Assigned Patient Location: [facility] Current Patient Location: [facility] Accession/Order Number: [id number] Exam Date: 11/09/2024 11:36 Report Date: 11/09/2024 11:37 At the request of: MAGAN PAEZ DO Procedure: US OB BPP w non-stress BIOPHYSICAL PROFILE: CLINICAL INFORMATION: CYSTIC FIBROSIS CARRIER O09.899 COMPARISON: 11/02/2024 There is a single live intrauterine gestation in cephalic presentation.The reported gestational age is 35 weeks 2 days. The heart [id number] beats per minute. FINDINGS: TONE: 1 or [...] Rahman M.D. 11/09/2024 11:37 AM Dictation Location: [place] [address] Electronically authenticated by: [id number] Y Date: 1:37 Dictated By: Laura Rahman M.D. Signed By:11/09/24 1140 DD/ 1137 TD/TT: Retail Wireless Sales Consultant: us aMgan Paez DO [facility] Final Result * US OB CERVICAL LENGTH (11/01/2024 11:35 AM EDT) Only the most recent of2 resultswithin the time period is included. Anatomical Region Laterality Modality Other 11/01/2024 11:3 5 AM EDT Narrative 11/01/2024 11:37 AM EDT [address] [address] Ultrasound Report Signed Patient: MICHI SERRANO MR#: [id number] : 1995 Acct:[id number] Age/Sex: 29 / F ADM Date: 11/01/24 Loc: US Attending Dr: Jocy Vaughn Ordering Physician: Jocy Vaughn Date of Service: 11/01/24 Procedure(s): US OB cervical length Accession Number(s): [id number] cc: ARMEN Brand [address] [address] Patient Name: MICHI SERRANO MRN: [facility]:[id number] date: 1995 Sex: F Assigned Patient Location: US Current Patient Location: US Accession/Order Number: [id number] Exam Date: 11/01/2024 11:33 Report Date: 11/01/2024 [...] Jr., D.O. 11/01/2024 11:35 AM Dictation Location: [place] [address] Electronically authenticated by: [id number] Y Date: 11/01/2024 11:35 Dictated By: Hugo Atkins M.D. Signed By: 11/01/24 1137 DD/ 1135 TD/TT: Retail Wireless Sales Consultant: Procedure Note Radiology, Radiologist, MD - 11/01/[address] [address] Ultrasound Report Signed Patient: MICHI SERRANO KMR#: [id number] : 1995Acct:[id number] Age/Sex: 29 / FADM Date: 11/01/24 Loc: US Attending Dr: Jocy Vaughn Ordering Physician: Jocy Vaughn Date of Service: 11/01/24 Procedure(s): US OB cervical length Accession Number(s): [id number] cc: ARMEN Brand [address] [address] Patient Name: MICHI SERRANO MRN: [id number] date: 1995 Sex: F Assigned Patient Location: US Current Patient Location: Accession/Order Number: [id number] Exam Date: 11/01/2024 11:33 Report Date: 11/01/2024 [...] Jr., D.O. 11/01/2024 11:35 AM Dictation Location: [place] [address] Electronically authenticated by: [id number] Y Date: 1:35 Dictated By: Hugo Atkins M.D. Signed By:11/01/24 1137 DD/ 1135 TD/TT: Retail Wireless Sales Consultant: us Jocy YOUNG [facility] Final Result * US OB PLACENTA (10/04/2024 9:50 AM EDT) Only the most recent of2 resultswithin the time period is included. Anatomical Region Laterality Modality Other 10/04/2024 9:50 AM EDT Narrative 10/04/2024 9:52 AM EDT [address] [address] Ultrasound Report Signed Patient: MICHI SERRANO MR#: [id number] : 1995 Acct:[id number] Age/Sex: 29 / F ADM Date: 09/24/24 Loc: [facility] Attending Dr: Magan Paez D.O. Ordering Physician: Magan Paez D.O. Date of Service: 09/24/24 Procedure(s): US OB placenta Accession Number(s): [id number] cc: ARMEN SÁNCHEZ ; Magan Paez D.O. The [address] [address] Patient Name: MICHI SERRANO MRN: [id number] date: 1995 Sex: F Assigned Patient Location: [facility] Current Patient Location: US Accession/Order Number: [id number] Exam Date: 10/04/2024 09:16 Report Date: 10/04/2024 [...] Rahman M.D. 10/04/2024 9:50 AM Dictation Location: [place] [address] Electronically authenticated by: [id number] Y Date: 10/04/2024 09:50 Dictated By: Laura Rahman M.D. Signed By: 10/04/24 0952 DD/ 0950 TD/TT: Retail Wireless Sales Consultant: Procedure Note Radiology, Radiologist, - 10/04/[address] [address] Ultrasound Report Signed Patient: MICHI SERRANO KMR#: [id number] : 1995Acct:[id number] Age/Sex: 29 / FADM Date: 09/24/24 Loc: [facility] Attending Dr: Magan Paez D.O. Ordering Physician: Magan Paez D.O. Date of Service: 09/24/24 Procedure(s): US OB placenta Accession Number(s): [id number] cc: ARMEN SÁNCHEZ ; Magan Paez D.O. [place] [address] Patient Name: MIHCI SERRANO MRN: [facility]:[id number] date: 1995 Sex: F Assigned Patient Location: [facility] Current Patient Location: US Accession/Order Number: [id number] Exam Date: 10/04/2024 09:16 Report Date: 10/04/2024 [...] Rahman M.D. 10/04/2024 9:50 AM Dictation Location: [place] [address] Electronically authenticated by: [id number] Y Date: 9:50 Dictated By: Laura Rahman M.D. Signed By:10/04/2452 DD/ 9 TD/TT: Retail Wireless Sales Consultant: Magan Paez DO [facility] Final Result [...] DO LAB BLOOD ORDERABLES Final Resul t [facility] * (ABNORMAL) ALL CBC WITH [...] Magan Paez DO [facility] Final Result [facility] from Last 3 Months Insurance * Guarantor: Michi Serrano Account Type Relation to Patient Date of Phone Billing Address Personal/Family Self 1995 [address] [place] [address] [employer] [facility] Care Teams Radiator Tester Relationship Specialty Start Date End Date Armen Sánchez MD PCP - General Family Medicine 05/05/24"
--- OUTSIDE RECORDS SUMMARY | 2024-11-16 14:58 | XMS_ITS | Encounter Summary ---
Author Organization [facility] Address [address] [place] [address] Care Team Providers Care All Round Butcher Name Role Phone Aiyana, Emi Munson [facility] Unavailable + [phone] Armen Sánchez MD Primary Care Provider + [phone] Encounter Details Date Type Department Care Team (Late st Contact Info) Description 07/11/2024 Orders Only [facility]ar[facility] [address] [address] Mary Quinn LPN [address] [place] [address] Social History Tobacco Use Types [...] on filedocumented in this encounter Care Teams All Round Butcher Relationship Specialty Start Date End Date Armen Sánchez MD [address] [place] [address] PCP - General Family Medicine 05/05/24 Emi Bronson [facility] [address] [place] [address] Behavioral Health 04/12/24 09/26/24 documented as of this encounter
--- OUTSIDE RECORDS SUMMARY | 2024-11-16 14:58 | XMS_ITS | Encounter Summary ---
Author Organization [facility] [employer]ra[employer] s tem Address [id number] [address] [place] [address] Care Team Providers Care Administrative Processor Name Role Phone MasoodArmen silverman Primary Care Provider Encounter Details Date Type Department Care Team (Late st Contact Info) Description 07/19/2024 Orders Only [facility] Internal Medicine - Family Medicine [address] [place] [address] Ref Prov, [place] [address] Social History Tobacco Use Types Packs/Day Years Used Date Smoking Tobacco: Every Day Cigarettes 1 13.3 Started: 08/01/2011 Smokeless Tobacco: Never Alcohol Use Standard Drinks/Week Comments Not Currently 0 (1 standard drink = 0.6 oz pur e alcohol) [facility] Utilities Answer Date Recorded In the past 12 months has [employer], gas, oil, or water company threatened to [...] any clubs o r organizations such as sabianism groups, unions, fraternal or athletic groups, or [...] Recorded Do you need help finding a [facility] and/or a training program? [...] for Health Services - Women's Services [address] [place] [phone] Gemma Horne MD [address] [place] [address], [place] [address] 11/21/2024 2:00 PM EDT Appointment [facility] US Imaging [address] [place] [address] 11/28/2024 11:00 AM EDT Appointment [facility] US Imaging [address] [place] [address] 11/28/2024 11:30 AM EDT Office Visit Maternal- Medicine at [facility] [address] [place] [address] Edil Bullock MD [address] [facility] [address] [address] documented as of this encounter Procedures Procedure [...] documented as of this encounter Care Teams Administrative Processor Relationship Specialty Start Date End Date Armen Sánchez DO [address] [facility], [place] [address] PCP - General Family Medicine 08/25/23 documented as of this encounter
--- OUTSIDE RECORDS SUMMARY | 2024-11-16 14:58 | XMS_ITS | Encounter Summary ---
Author Organization [facility] Address [address] [facility] [place] [address] Care Team Providers Care Individual Pension Consultant Name Role Phone Emi Bronson [facility] Unavailable + [phone] Armen Sánchez MD Primary Care Provider + [phone] Encounter Details Date Type Department Care Team (Late st Contact Info) Description 12/27/2023 Abstract [facility] [address] [place] [phone] Emi Bronson, [facility] [address] [place] [address] Social History Tobacco Use Types Packs/Day Years [...] on filedocumented in this encounter Care Teams Individual Pension Consultant Relationship Specialty Start Date End Date Armen Sánchez MD [address] [place] [address] PCP - General Family Medicine 05/05/24 Emi Bronson [facility] [address] [facility] [address] [place] [id number] Behavioral Health 04/12/24 09/26/24 documented as of this encounter
--- OUTSIDE RECORDS SUMMARY | 2024-11-16 14:58 | XMS_ITS | Encounter Summary ---
Author Organization [facility] tem Address [facility] [address] [place] [address] Care Team Providers Care Area Coordinator Name Role Phone Princess Armen Steele DO Primary Care Provider [phone] Encounter Details Date Type Department Care Team (Late st Contact Info) Description 06/16/2024 Orders Only Maternal- Medicine at [facility] [address] [place] [phone] Curtis Paez, DO [address] [place] [address] Social History Tobacco Use Types Packs/Day Years Used Date Smoking Tobacco: Every Day Cigarettes 1 13.3 Started: 08/01/2011 Smokeless Tobacco: Never Alcohol Use Standard Drinks/Week Comments Not Currently 0 (1 standard drink = 0.6 oz pur e alcohol) [facility] Utilities Answer Date Recorded In the past 12 months has [employer] gas, oil, or water [employer] threatened to shut off services in your home? No 08/25/2023 Social Connection and Isolation Panel [NHANES] A nswer Date Recorded In a typical week, how many times do you talk on the phone with family, friends, or neighbors? Three times a week 01/27/2024 How often do you get togethe r with friends or relatives? Once a week 01/27/2024 How often do you attend [facility] or [facility] services? Never 01/27/2024 Do you belong to any clubs o r organizations such as nondenominational groups, unions, fraternal or athletic groups, or [...] Answer Date Recorded Total Score 0 10/27/2023 [facility] - [...] for Health Services - Women's Services [address] [place] [phone] Gemma Horne MD [address] [place] [address], [address] [address] 11/21/2024 2:00 PM EDT Appointment [facility] US Imaging [address] [place] [address] 11/28/2024 11:00 AM EDT Appointment [facility] US Imaging [address] [place] [address] 11/28/2024 11:30 AM EDT Office Visit Maternal- Medicine at [facility] [address] [place] [address] Edil Bullock MD [address] [address] documented as of this encounter Procedures Procedure Name Priority Date/Time Associated Diagnosis Comments UNLISTED LAB TEST Routine 06/08/2024 1:25 PM EST UNLISTED LAB TEST Routine 05/23/2024 1:26 PM EST documented in this encounter Results * Unlisted Lab Test (06/08/2024 1:25 PM EST) us Curtis R Jeannine DO LAB BLOOD ORDERABLES Final Resu lt Performing Organization Address City/[facility]/ZIP Co de Phone Number MANUALLY TRANSCRIBED RESULTS * Unlisted Lab Test (05/23/2024 1:26 PM EST) us Curtis R Jeannine DO LAB BLOOD ORDERABLES Final Resu lt Performing Organization Address [facility] Co de Phone Number MANUALLY TRANSCRIBED RESULTS documented in this encounter Visit Diagnoses Not on filedocumented in this encounter Additional Health Concerns Assessment Noted Time PHQ-9 Depression Total Score: 0 10/27/19 10:25 AM EDT A Body Mass Index follow-up plan has been documented for the patient 08/10/2023 10:14 AM EDT documented as of this encounter Care Teams Area Coordinator Relationship Specialty Start Date End Date Armen Sánchez DO [address] [facility] [place] [address] PCP - General Family Medicine 08/25/23 documented as of this encounter
--- OUTSIDE RECORDS SUMMARY | 2024-11-16 14:58 | XMS_ITS | Encounter Summary ---
Author Organization [facility] Address [address] [facility] [place] [address] Care Team Providers Care Retail Office Manager Name Role Phone Emi Bronson [facility] Unavailable + [phone] Armen Sánchez MD Primary Care Provider + [phone] Encounter Details Date Type Department Care Team (Late st Contact Info) Description 05/24/2024 Abstract [facility] [address] [place] [address] Curtis Paez DO [address] [place] [address] Social History Tobacco Use Types Packs/Day Years [...] on filedocumented in this encounter Care Teams Retail Office Manager Relationship Specialty Start Date End Date Armen Sánchez MD [address] [place] [address] PCP - General Family Medicine 05/05/24 Emi Bronson [facility] [address] [place] [address] Behavioral Health 04/12/24 09/26/24 documented as of this encounter
--- NOTE | 2024-11-16 15:11 | US_ITS ---
[address] [address] Patient Name: MICHI LUNA MRN: [id number]:[id number] date: 1995 Sex: F Assigned Patient Location: [facility] Current Patient Location: [facility] Accession/Order Number: [id number] Exam Date: 11/16/2024 15:41 Report Date: 11/16/2024 15:42 At the request of: MAGAN TRISTAN DO Procedure: US OB BPP w non-stress Biophysical profile. Reason for exam: Cystic fibrosis COMPARISON: 11/09/2024 TECHNIQUE: Transabdominal imaging of the gravid uterus was obtained. FINDINGS: The hydropress operator reports a BPP of 8 out of 8. NAYE is normal at 13.5 cm. heart rate 139 bpm. US/US OB BPP w non-stress IMPRESSION: BPP 8 out of 8. Impression dictated by: Hugo Atkins Jr., D.O. 11/16/2024 3:42 PM Dictation Location: [place] [address] Electronically authenticated by: [id number] Y Date: 11/16/2024 15:42
--- OUTSIDE RECORDS SUMMARY | 2024-11-16 15:19 | XMS_ITS | CCD ---
Author Organization [facility] Care Team Providers Care Model Maker Plastic Name Role Phone CLAIRE KAT Referring Unavailable NATALIIANGARMEN Referring Unavailable ARMEN STREET Primary Care Unavailable HAJA OSULLIVAN Admitting Unavailable HAJA OSULLIVAN Attending Unavailable ARMEN STRE[address] Primary Care Unavailable HAJA OSULLIVAN Attending Unavailable HAJA OSULLIVAN Referring Unavailable MASOODLOARMEN TRISTAN Primary Care Unavailable Unavailable Primary Care Provider UnavailArmen Rodriguez DO Primary Care Provider [phone] DO Primary Care Provider [facility] Armen [facility] MD Primary Care Provider Unavailable Primary Care Provider Armen Mcgregor MD Primary Care Provider Armen Street DO Primary Care Provider [phone] Attending Unavailable MASOODLOARMEN TRISTAN Referring Unavailable MASOODLONGARMEN Primary Care Unavailable ARMEN STREET Attending Unavailable ARMEN STREET Referring Unavailable MASOODLONGARMEN Primary Care Unavailable ARMEN STREET Attending Unavailable ARMEN STREET Referring Unavailable MASOODLOARMEN TRISTAN Primary Care Unavailable CURTIS PAEZ Referring Unavailable ARMEN STREET Primary Care Unavailable VICTORINO CHRISTIE Admitting Unavailable VICTORINO CHRISTIE Attending Unavailable ARMEN STRE[address] Primary Care Unavailable ZULLY VALLEJO Attending Unavailable MASOODLOARMEN TRISTAN Primary Care Unavailable FURLONG, ARMEN Steele Primary Care Unavailable Furlong Armen NULL Cedric Primary Care Provider [phone] Esther Maldonado APRN Attending Provider FurloArmen tristan DO Primary Care Provider JEANNINE, CURTIS R Referring Unavailable FURLONG, ARMEN Steele Primary Care Unavailable JEANNINE, CURTIS R Referring Unavailable FURLONG, ARMEN Steele Primary Care Unavailable KATY, LYNDSEY Attending Unavailable JEANNINE, CURTIS R Referring Unavailable FURLONG, ARMEN Steele Primary Care Unavailable KATY, LYNDSEY Referring Unavailable FURLONG, ARMEN Steele Primary Care Unavailable RASHIDA ALVAREZ Attending Unavailable FURLONG, ARMEN G Referring Unavailable FURLONG, ARMEN Steele Primary Care Unavailable KATY, LYNDSEY Attending Unavailable JEANNINE, CURTIS R Referring Unavailable FURLONG, ARMEN Steele Primary Care Unavailable EDIL SNOW Attending Unavailable JEANNINE, CURTIS R Referring Unavailable FURLONG, ARMEN Steele Primary Care Unavailable JEANNINE, CURTIS R Referring Unavailable FURLONG, ARMEN Steele Primary Care Unavailable JEANNINE, CURTIS R Referring Unavailable FURLONG, ARMEN Steele Primary Care Unavailable RAIN IVERSON Attending Unavail able FURLONG, ARMEN G Referring Unavailable FURLONG, ARMEN Steele Primary Care Unavailable RAIN IVERSON Referring Unavail able FURLONG, ARMEN Steele Primary Care Unavailable RAIN IVERSON Referring Unavail able FURLONG, ARMEN Steele Primary Care Unavailable RAIN IVERSON Referring Unavail able FURLONG, ARMEN Steele Primary Care Unavailable JEANNINE, CURTIS R Referring Unavailable FURLONG, ARMEN Steele Primary Care Unavailable ANGELA GARDNER Attending Unavailable JEANNINE, CURTIS R Referring Unavailable FURLONG, ARMEN G Primary Care Unavailable TIFFANY ORNELAS Attending Unavailabl e FURLONG, ARMEN G Referring Unavailable FURLONG, ARMEN G Primary Care Unavailable ANGELA GARDNER Attending Unavailable RAIN IVERSON Referring Unavail able FURLONG, ARMEN G Primary Care Unavailable RAIN IVERSON Referring Unavail able FURLONG, ARMEN G Primary Care Unavailable Allergies Allergy Classification Reported [...] 19/iron ps,heme/folic/dha ( MV & MIN ORAL) (20 sources) take 1 tablet by mouth once in the morning PNV 19/iron ps,heme/folic/dha ( MV & MIN ORAL) Take 1 tablet by mouth in the morning. Active take 1 tablet by mouth once allison y PNV 19/iron ps,heme/folic/dha ( MV & MIN ORAL) Take 1 tablet by mouth once daily. Active polyethylene glycol 3350 45127 mg powder for oral solution (20 sources) [...] tablet (2 sources) Allylamine Antifungal Start: End: 4 take 1 tablet by mouth in the [...] in 24 hours. 21 day ethinyl estradiol 0.167455 mg/hr / etonogestrel 0.005 mg/hr vaginal system [...] venlafaxine 37.5 mg extended release oral capsule (20 sources) Serotonin and Norepinephrine Reuptake Inhibitor Start: [...] chew. 30 capsule 5 09/18/2024 09/18/2025 Active Problems Active Problems Problem Classification Problem [...] disorder, recurrent, moderate] Onset: 10-25-2023 10-25-2023 Chronic Mood disorders (20 sources) Mood disorders; Translations: [Depression, unspecified] Onset: 10-27-2023 Resolved: 10-18-2024 10-27-2023 Nutritional deficiencies (20 sources) Vitamin D deficiency; Translations: [Vitamin D deficiency, unspecified] Onset: 08-16-2018 09-27-2023 Chronic Other complications of ; puerperium affecting management of mother (16 sources) finding; Translations: [Maternal care for other (suspected) abnormality and damage, gastrointestinal anomalies, not applicable or unspecified] Onset: 09-30-2024 09-30-2024 Episodic Other complications of (1 source) Obesity complicating , unspecified trimester; Translations: [Obesity complicating , unspecified trimester] Onset: 10-05-2024 Chronic Other complications of (19 sources) Previous operation to cervix affecting ; Translations: [Maternal care for other abnormalities of cervix, unspecified trimester] Onset: 09-21-2024 06-08-2024 Episodic Other complications of (14 sources) Abnormal findings on screening of mother; Translations: [Abnormal chromosomal and genetic finding on screening of mother] 06-20-2024 Episodic Other complications of (15 sources) Anomaly of placenta; 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, unspecified, third trimester] Onset: 09-21-2024 09-21-2024 Episodic Other complications of (1 source) Chlamydia trachomatis infection in ; Translations: [Other maternal infectious and parasitic diseases complicating , unspecified trimester] Onset: 11-02-2024 11-02-2024 Episodic Other complications of (1 source) Supervision of other high risk pregnancies, unspecified trimester; Translations: [Supervision of other high risk pregnancies, unspecified trimester] Onset: 10-18-2024 Episodic Other complications of (1 source) Supervision of high risk , unspecified, third trimester; Translations: [Supervision of high risk , unspecified, third trimester] Onset: 10-19-2024 Episodic Other complications of (1 source) Supervision [...] of ] 05-09-2024 Episodic Residual codes; unclassified (11 sources) History of loop electrosurgical excision procedure; Translations: [Other specified postprocedural states] Onset: 10-17-2024 05-09-2024 Episodic Residual codes; unclassified (2 sources) Gestation period, 13 weeks; Translations: [13 weeks gestation of ] 06-08-2024 Episodic Residual codes; unclassified (6 sources) Family history of development disorder; Translations: [Family history of other specified conditions] 06-20-2024 Episodic Residual codes; unclassified (6 sources) Family history of Spina bifida; Translations: [Family [...] of ] 09-18-2024 Episodic Residual codes; unclassified (13 sources) Gestation period, 29 weeks; Translations: [29 weeks gestation of ] Onset: 10-03-2024 09-30-2024 Episodic Residual codes; unclassified (2 sources) Gestation period, 30 weeks; Translations: [30 weeks gestation of ] 10-03-2024 Episodic Residual codes; unclassified (2 sources) Gestation period, 32 weeks; Translations: [32 weeks gestation of ] 10-17-2024 Episodic Residual codes; unclassified (1 source) Family history of other specified conditions; Translations: [Family history of other specified conditions] Onset: 11-07-2024 Episodic Residual codes; unclassified (1 source) Family history of other congenital malformations, deformations and chromosomal abnormalities; Translations: [Family history of other congenital malformations, deformations and chromosomal abnormalities] Onset: 11-07-2024 Episodic Sexually transmitted infections (not HIV or hepatitis) (2 sources) Chlamydia trachomatis infection; Translations: [Sexually transmitted chlamydial infection of other sites] 08-01-2024 Episodic Unclassified (2 sources) PM MYCHART PREG BODY CHANGES Onset: 06-20-2024 06-20-2024 Unclassified (1 source) Weight Check Onset: 10-27-2023 Unclassified (1 source) Annual Exam Onset: 09-27-2023 Unclassified (1 source) High Risk Gestation Onset: 11-03-2024 Unclassified (1 source) Non-stress Test Onset: 10-23-2024 Unclassified (1 source) Maternal care for other (suspected) abnormality and damage, gastrointestinal anomalies, not applicable or unspecified; Translations: [Maternal care for other (suspected) abnormality and damage, gastrointestinal anomalies, not applicable or unspecified] Onset: 09-30-2024 Unclassified (1 source) Routine Visit Onset: 10-19-2024 Viral infection (16 sources) Herpes simplex; Translations: [Herpesviral infection, unspecified] [...] immunization] Onset: 08-16-2018 Resolved: 09-15-2018 08-16-2018 Episodic Mycoses (20 sources) Onychomycosis; Translations: [Tinea unguium] Onset: 09-27-2023 10-27-2023 Episodic Other complications of (20 sources) High risk ; Translations: [Supervision of other high risk pregnancies, unspecified trimester] Onset: 06-12-2024 06-12-2024 Episodic Other complications of (2 sources) Abnormal [...] Resolved: 09-15-2018 09-15-2018 Episodic Residual codes; unclassified (20 sources) Carrier of cystic fibrosis gene mutation; Translations: [Cystic fibrosis carrier] Onset: 06-16-2024 Resolved: 10-18-2024 06-16-2024 Episodic Superficial injury; contusion (2 sources) Contusion of right upper arm, initial encounter; Translations: [Contusion of unspecified part of upper limb] Onset: 04-27-2024 04-27-2024 Episodic Unclassified (20 sources) Onset: 08-10-2023 08-10-2023 Unclassified (7 sources) finding 10-13-2024 Results Test Name Value Interpretation Reference Range Facility OB BPP W NON-STRESS on 11-09-2024 [place] [address] Ultrasound Report Signed Patient: SAPNA SERRANO MR#: [id number] : 1995 Acct:[id number] Age/Sex: 29 / F ADM Date: 11/09/24 Loc: [facility] 250-[address]: Curtis Paez D.O. Ordering Physician: Curtis Paez D.O. Date of Service: 11/09/24 Procedure(s): US OB BPP w non-stress Accession Number(s): [id number] cc: [address] ; Curtis Paez D.O. The [place] [id number] Patient Name: SAPNA SERRANO MRN: [facility]:[id number] date: 1995 Sex: F Assigned Patient Location: [facility] Current Patient Location: [facility] Accession/Order Number: [id number] Exam Date: 11/09/2024 11:36 Report Date: 11/09/2024 11:37 At the request of: CURTIS PAEZ DO Procedure: US OB BPP w non-stress BIOPHYSICAL PROFILE: CLINICAL INFORMATION: CYSTIC FIBROSIS CARRIER O09.899 COMPARISON: 11/02/2024 There is a single live intrauterine gestation in cephalic presentation. The reported gestational age is 35 weeks 2 days. The heart rate [id number] beats per minute. FINDINGS: TONE: 1 or [...] Rahman M.D. 11/09/2024 11:37 AM Dictation Location: [place] [address] Electronically authenticated by: [id number] Y Date: 11/09/2024 11:37 Dictated By: Laura Rahman M.D. Signed By: 11/09/24 1140 DD/ 1137 TD/TT: Element Winding Machine Tender: [facility] Radiology, Radiologist, MD - 11/09/2024 [place] [address] Ultrasound Report Signed Patient: SAPNA SERRANO MR#: [id number] : 1995 Acct:[id number] Age/Sex: 29 / F ADM Date: 11/09/24 Loc: [facility] 250-[address]: Curtis Paez D.O. Ordering Physician: Curtis Paez D.O. Date of Service: 11/09/24 Procedure(s): US OB BPP w non-stress Accession Number(s): [id number] cc: [address] ; Curtis Paez D.O. [place] [address] Patient Name: SAPNA SERRANO MRN: [facility]:[id number] date: 1995 Sex: F Assigned Patient Location: [facility] Current Patient Location: [facility] Accession/Order Number: [id number] Exam Date: 11/09/2024 11:36 Report Date: 11/09/2024 11:37 At the request of: CURTIS PAEZ DO Procedure: US OB BPP w non-stress BIOPHYSICAL PROFILE: CLINICAL INFORMATION: CYSTIC FIBROSIS CARRIER O09.899 COMPARISON: 11/02/2024 There is a single live intrauterine gestation in cephalic presentation. The reported gestational age is 35 weeks 2 days. The heart rate [id number] beats per minute. FINDINGS: TONE: 1 or [...] Rahman M.D. 11/09/2024 11:37 AM Dictation Location: [place] [address] Electronically authenticated by: [id number] Y Date: 11/09/2024 11:37 Dictated By: Laura Rahman M.D. Signed By: 11/09/24 1140 DD/ 1137 TD/TT: Element Winding Machine Tender: [facility] Radiology Study observation (narrative) [facility] US OB BPP W NON-STRESS Ordered By: Radiologist Radiology on 11-09-2024 [facility]: C. trachomatis DNA ALLISON+probe Ql (Unsp spec)Ordered By: Sindhu Blackman on 11-05-2024 Interpretation and review of laboratory results Normal [facility] N. gonorrhoeae DNA ALLISON+probe Ql (Unsp spec) Negative Negative [facility] Comment on above: Neisseria gonorrhoea e not detected by nucleic acid amplification. This does not exclude the possibility of infection because results are dependent on adequate specimen collection. [facility] Chlamydia/Gonorrhoeae by PCR , UrineOrdered By: Sindhu Blackman on 11-05-2024 C. trachomatis DNA ALLISON+probe Ql (Unsp spec) Negative Negative [facility] Comment on above: Chlamydia trachomati s not detected by nucleic acid amplification. This does not exclude the possibility of infection because results are dependent on adequate specimen collection. CHLAMYDIA/GONORRHOEAE BY PCR , URINEon 11-03-2024 CHLAMYDIA/GONORRHOEAE BY PCR, URINE GONORRHOEAE PCR, U Negative Neisseria gonorrhoeae not detected by nucleic acid amplification. This does not exclude the possibility of infection because results are dependent on adequate specimen collection. CHLAMYDIA PCR, U Negative Chlamydia trachomatis not detected by nucleic acid amplification. This does not exclude the possibility of infection because results are dependent on adequate specimen collection. Normal [facility] Comment on above: Performed By: #### C GUPCR #### [facility] (TT) [address] [place] [address] VIR US OB BPP W NON-STRESS on 11-02-2024 [facility] [address] [place] [address] Ultrasound Report Signed Patient: SAPNA SERRANO MR#: [id number] : 1995 Acct:[id number] Age/Sex: 29 / F ADM Date: 11/02/24 Loc: [facility] 250-[address]: Curtis Paez D.O. Ordering Physician: Curtis Paez D.O. Date of Service: 11/02/24 Procedure(s): US OB BPP w non-stress Accession Number(s): [id number] cc: [address] ; Curtis Paez D.O. The [address] [address] Patient Name: SAPNA SERRANO MRN: [facility]:[id number] date: 1995 Sex: F Assigned Patient Location: [facility] Current Patient Location: [facility] Accession/Order Number: [id number] Exam Date: 11/02/2024 11:40 Report Date: 11/02/2024 11:42 At the request of: CURTIS PAEZ DO Procedure: US OB BPP w non-stress Biophysical profile. Reason for exam: Cystic fibrosis COMPARISON: 10/26/2024 TECHNIQUE: Transabdominal imaging of the gravid uterus was obtained. FINDINGS: The residential property consultant reports a BPP of 8 out of 8. NAYE is normal at 15.9 cm. heart rate 153 bpm. US/US OB BPP w non-stress IMPRESSION: BPP 8 out of 8. Impression dictated by: Hugo Atkins Jr., D.O. 11/02/2024 11:42 AM Dictation Location: [place] [address] Electronically authenticated by: [id number] Y Date: 11/02/2024 11:42 Dictated By: Hugo Atkins M.D. Signed By: 11/02/24 1144 DD/ 1142 TD/TT: Element Winding Machine Tender: [facility] Radiology, Radiologist, MD - 11/02/2024 The [place] [id number] Ultrasound Report Signed Patient: SAPNA SERRANO MR#: [id number] : 1995 Acct:[id number] Age/Sex: 29 / F ADM Date: 11/02/24 Loc: [facility] 250-[address]: Curtis Paez D.O. Ordering Physician: Curtis Paez D.O. Date of Service: 11/02/24 Procedure(s): US OB BPP w non-stress Accession Number(s): [id number] cc: [address] Corey D.O. [address] [address] Patient Name: SAPNA SERRANO MRN: [facility]:[id number] date: 1995 Sex: F Assigned Patient Location: [facility] Current Patient Location: [facility] Accession/Order Number: [id number] Exam Date: 11/02/2024 11:40 Report Date: 11/02/2024 11:42 At the request of: CURTIS PAEZ DO Procedure: US OB BPP w non-stress Biophysical profile. Reason for exam: Cystic fibrosis COMPARISON: 10/26/2024 TECHNIQUE: Transabdominal imaging of the gravid uterus was obtained. FINDINGS: The residential property consultant reports a BPP of 8 out of 8. NAYE is normal at 15.9 cm. heart rate 153 bpm. US/US OB BPP w non-stress IMPRESSION: BPP 8 out of 8. Impression dictated by: Hugo Atkins Jr., D.O. 11/02/2024 11:42 AM Dictation Location: [place] [address] Electronically authenticated by: [id number] Y Date: 11/02/2024 11:42 Dictated By: Hugo Atkins M.D. Signed By: 11/02/24 1144 DD/ 1142 TD/TT: Element Winding Machine Tender: [facility] Radiology Study observation (narrative) [facility] US OB BPP W NON-STRESS Ordered By: Radiologist Radiology on 11-02-2024 [facility] [employer] Work Phone: US OB CERVICAL LENGTHon 10-[address] [address] Ultrasound Report Signed Patient: SAPNA SERRANO MR#: [id number] : 1995 Acct:[id number] Age/Sex: 29 / F ADM Date: 11/01/24 Loc: US Attending Dr: Jocy Ruby Ordering Physician: Jocy Ruby Date of Service: 11/01/24 Procedure(s): US OB cervical length Accession Number(s): [id number] cc: Jocy Ruby; [address] [place] [id number] Patient Name: SAPNA SERRANO MRN: [facility]:[id number] date: 1995 Sex: F Assigned Patient Location: US Current Patient Location: US Accession/Order Number: [id number] Exam Date: 11/01/2024 11:33 Report Date: 11/01/2024 11:35 At the request of: JOCY RUBY Procedure: US OB cervical length Cervical length ultrasound. Reason for exam: Third trimester . TECHNIQUE: Transvaginal imaging of the cervix was obtained. FINDINGS: Cervical length measures 4.1 cm without evidence of funneling. heart rate 128 bpm. US/US OB cervical length Impression: Normal cervical length without evidence of funneling. Impression dictated by: Hugo Atkins Jr., D.O. 11/01/2024 11:35 AM Dictation Location: [place] [address] Electronically authenticated by: [id number] Y Date: 11/01/2024 11:35 Dictated By: Hugo Atkins M.D. Signed By: 11/01/24 1137 DD/ 1135 TD/TT: Element Winding Machine Tender: [facility] Radiology, Radiologist, MD - 11/01/2024 [place] [address] Ultrasound Report Signed Patient: SAPNA SERRANO MR#: [id number] : 1995 Acct:[id number] Age/Sex: 29 / F ADM Date: 11/01/24 Loc: US Attending Dr: Jocy Ruby Ordering Physician: Jocy Ruby Date of Service: 11/01/24 Procedure(s): US OB cervical length Accession Number(s): [id number] cc: [address] [place] [id number] Patient Name: SAPNA SERRANO MRN: [facility]:[id number] date: 1995 Sex: F Assigned Patient Location: US Current Patient Location: US Accession/Order Number: [id number] Exam Date: 11/01/2024 11:33 Report Date: 11/01/2024 11:35 At the request of: JOCY RUBY Procedure: US OB cervical length Cervical length ultrasound. Reason for exam: Third trimester . TECHNIQUE: Transvaginal imaging of the cervix was obtained. FINDINGS: Cervical length measures 4.1 cm without evidence of funneling. heart rate 128 bpm. US/US OB cervical length Impression: Normal cervical length without evidence of funneling. Impression dictated by: Hugo Atkins Jr., D.O. 11/01/2024 11:35 AM Dictation Location: [place] [address] Electronically authenticated by: [id number] Y Date: 11/01/2024 11:35 Dictated By: Hugo Atkins M.D. Signed By: 11/01/24 1137 DD/ 1135 TD/TT: Element Winding Machine Tender: [facility] [employer] Radiology Study observation (narrative) [facility] US OB CERVICAL LENGTHOrdered By: Radiologist Radiology on 11-01-2024 [facility] [employer] Work Phone: US OB BPP W NON-STRESS on 10-26-2024 [place] [address] Ultrasound Report Signed Patient: SAPNA SERRANO MR#: [id number] : 1995 Acct:[id number] Age/Sex: 29 / F ADM Date: 10/26/24 Loc: [facility] 255-[address]: Curtis Paez D.O. Ordering Physician: Curtis Paez D.O. Date of Service: 10/26/24 Procedure(s): US OB BPP w non-stress Accession Number(s): [id number] cc: [address] Corey D.O. [place] [id number] Patient Name: SAPNA SERRANO MRN: [facility]:[id number] date: 1995 Sex: F Assigned Patient Location: [facility] Current Patient Location: [facility] Accession/Order Number: [id number] Exam Date: 10/26/2024 16:51 Report Date: 10/26/2024 16:52 At the request of: CURTIS PAEZ DO Procedure: US OB BPP w non-stress Biophysical profile. Reason for exam: Cystic fibrosis COMPARISON: None TECHNIQUE: Transabdominal imaging of the gravid uterus was obtained. FINDINGS: The residential property consultant reports a BPP of 8 out of 8. NAYE is normal at 17.6 cm. heart rate 150 bpm. US/US OB BPP w non-stress IMPRESSION: BPP 8 out of 8. Impression dictated by: Hugo Atkins Jr., D.O. 10/26/2024 4:52 PM Dictation Location: [place] [address] Electronically authenticated by: [id number] Y Date: 10/26/2024 16:52 Dictated By: Hugo Atkins M.D. Signed By: 10/26/241654 DD/ 51 TD/TT: Element Winding Machine Tender: [facility] Radiology, Radiologist, MD - 10/27/2024 [place] [address] Ultrasound Report Signed Patient: SAPNA SERRANO MR#: [id number] : 1995 Acct:[id number] Age/Sex: 29 / F ADM Date: 10/26/24 Loc: [facility] 255-[address]: Curtis Paez D.O. Ordering Physician: Curtis Paez D.O. Date of Service: 10/26/24 Procedure(s): US OB BPP w non-stress Accession Number(s): [id number] cc: [address] ; Curtis Paez D.O. The [place] [address] Patient Name: SAPNA SERRANO MRN: [facility]:[id number] date: 1995 Sex: F Assigned Patient Location: [facility] Current Patient Location: [facility] Accession/Order Number: [id number] Exam Date: 10/26/2024 16:51 Report Date: 10/26/2024 16:52 At the request of: CURTIS PAEZ DO Procedure: US OB BPP w non-stress Biophysical profile. Reason for exam: Cystic fibrosis COMPARISON: None TECHNIQUE: Transabdominal imaging of the gravid uterus was obtained. FINDINGS: The residential property consultant reports a BPP of 8 out of 8. NAYE is normal at 17.6 cm. heart rate 150 bpm. US/US OB BPP w non-stress IMPRESSION: BPP 8 out of 8. Impression dictated by: Hugo Atkins Jr., D.O. 10/26/2024 4:52 PM Dictation Location: [place] [address] Electronically authenticated by: [id number] Y Date: 10/26/2024 16:52 Dictated By: Hugo Atkins M.D. Signed By: 10/26/241654 DD/ 51 TD/TT: Element Winding Machine Tender: [facility] Radiology Study observation (narrative) [facility] [employer] US OB BPP W NON-STRESS Ordered By: Radiologist Radiology on 10-26-2024 [facility] Work Phone: nonstress test - Mater nal Medicineon 10-24-2024 Patient Name: Sapna Serrano Patient : 1995 NST Objective Findings: Variability: (!) Marked Decelerations: None Accelerations: Yes Acoustic Stimulator: No Baseline: 140 BPM Uterine Irritability: No Contractions: Not present NST Interpretation: Nonstress Test Interpretation: Reactive (Lyndsey Burns MD) Comments: Dr Burns rvieweaydee tracing and is reactive, baby active no ctxs (Jennifer Sheets) NST performed by: Jennifer Sheets RN 10/24/2024 4:16 PM ASOBGYN nonstress test - Mater nal MedicineOrdered By: Rashida Hutchins on 10-24-2024 [facility] US OB BPP W NON-STRESS on 10-19-2024 [address] [address] [address] Ultrasound Report Signed Patient: SAPNA SERRANO MR#: [id number] : 1995 Acct:[id number] Age/Sex: 29 / F ADM Date: 10/19/24 Loc: [facility] 250-[address]: Curtis Paez D.O. Ordering Physician: Curtis Paez D.O. Date of Service: 10/19/24 Procedure(s): US OB BPP w non-stress Accession Number(s): [id number] cc: [address] ; Curtis Paez D.O. The [address] [address] Patient Name: SAPNA SERRANO MRN: [id number]:[id number] date: 1995 Sex: F Assigned Patient Location: US Current Patient Location: US Accession/Order Number: [id number] Exam Date: 10/19/2024 11:25 Report Date: 10/19/2024 11:27 At the request of: CURTIS PAEZ DO [...] Rahman M.D. 10/19/2024 11:27 AM Dictation Location: [place] [address] Electronically authenticated by: [id number] Y Date: 10/19/2024 11:27 Dictated By: Laura Rahman M.D. Signed By: 10/19/24 1130 DD/ 1127 TD/TT: [employer] Tender: [facility] Radiology, Radiologist, MD - 10/19/2024 [place] [address] Ultrasound Report Signed Patient: SAPNA ESRRANO MR#: [id number] : 1995 Acct:[id number] Age/Sex: 29 / F ADM Date: 10/19/24 Loc: [facility] 250-[address]: Curtis Paez D.O. Ordering Physician: Curtis Paez D.O. Date of Service: 10/19/24 Procedure(s): US OB BPP w non-stress Accession Number(s): [id number] cc: [address] ; Curtis Paez D.O. The [place] [address] Patient Name: SAPNA SERRANO MRN: [facility]:[id number] date: 1995 Sex: F Assigned Patient Location: US Current Patient Location: US Accession/Order Number: [id number] Exam Date: 10/19/2024 11:25 Report Date: 10/19/2024 11:27 At the request of: CURTIS PAEZ DO [...] Rahman M.D. 10/19/2024 11:27 AM Dictation Location: [place] [address] Electronically authenticated by: [id number] Y Date: 10/19/2024 11:27 Dictated By: Laura Rahman M.D. Signed By: 10/19/24 1130 DD/ 1127 TD/TT: [employer] Tender: [facility] [employer] Radiology Study observation (narrative) [facility] [employer] US OB BPP W NON-STRESS Ordered By: Radiologist Radiology on 10-19-2024 [facility] [employer] Work Phone: No Panel InformationOrdered By: Esther Maldonado on 10-17-2024 Quick Strep (POC) [facility] US OB BPP W NON-STRESS on 10-12-2024 [place] [address] Ultrasound Report Signed Patient: SAPNA SERRANO MR#: [id number] : 1995 Acct:[id number] Age/Sex: 29 / F ADM Date: 10/12/24 Loc: [facility] 250- Attending Dr: Curtis Paez D.O. Ordering Physician: Curtis Paez D.O. Date of Service: 10/12/24 Procedure(s): US OB BPP w non-stress Accession Number(s): [id number] cc: [address] ; Curtis Paez D.O. [place] [address] Patient Name: SAPNA SERRANO MRN: [id number]:[id number] date: 1995 Sex: F Assigned Patient Location: [facility] Current Patient Location: [facility] Accession/Order Number: [id number] Exam Date: 10/12/2024 20:55 Report Date: 10/12/2024 20:55 At the request of: CURTIS JEANNINE DO Procedure: US OB BPP w non-stress [...] Schumacher M.D. 10/12/2024 8:55 PM Dictation [facility] Electronically authenticated by: [id number] Y Date: 10/12/2024 20:55 Dictated By: Man Schumacher D.O. Signed By: 10/12/242057 DD/ 54 TD/TT: [employer] Tender: [facility] Radiology, Radiologist, - 10/13/2024 [place] [address] Ultrasound Report Signed Patient: SAPNA SERRANO MR#: [id number] : 1995 Acct:[id number] Age/Sex: 29 / F ADM Date: 10/12/24 Loc: [facility] 250-[address]: Curtis Paez D.O. Ordering Physician: Curtis Paez D.O. Date of Service: 10/12/24 Procedure(s): US OB BPP w non-stress Accession Number(s): [id number] cc: [address] ; Curtis Paez D.O. The [place] [address] Patient Name: SAPNA SERRANO MRN: [facility]:[id number] date: 1995 Sex: F Assigned Patient Location: [facility] Current Patient Location: [facility] Accession/Order Number: [id number] Exam Date: 10/12/2024 20:55 Report Date: 10/12/2024 [...] Schumacher M.D. 10/12/2024 8:55 PM Dictation Location: [facility]WORK[facility] Electronically authenticated by: [id number] Y Date: 10/12/2024 20:55 Dictated By: Man Schumacher D.O. Signed By: 10/12/242057 DD/ 54 TD/TT: [employer] Tender: [facility] Radiology Study observation (narrative) [facility] US OB BPP W NON-STRESS Ordered By: Radiologist Radiology on 10-12-2024 [facility] [employer] Work Phone: US OB PLACENTAon 10-04-2024 [place] [address] Ultrasound Report Signed Patient: SAPNA SERRANO MR#: [id number] : 1995 Acct:[id number] Age/Sex: 29 / F ADM Date: 09/24/24 Loc: [facility] Attending Dr: Curtis Paez D.O. Ordering Physician: Curtis Paez D.O. Date of Service: 09/24/24 Procedure(s): US OB placenta Accession Number(s): [id number] cc: [address] Corey D.O. [place] [address] Patient Name: SAPNA SERRANO MRN: [id number]:[id number] date: 1995 Sex: F Assigned Patient Location: [facility] Current Patient Location: US Accession/Order Number: [id number] Exam Date: 10/04/2024 09:16 Report Date: 10/04/2024 [...] Rahman M.D. 10/04/2024 9:50 AM Dictation Location: [place] [address] Electronically authenticated by: [id number] Y Date: 10/04/2024 09:50 Dictated By: Laura Rahman M.D. Signed By: 10/04/24 0952 DD/ TD/TT: [employer] Tender: [facility] Radiology, Radiologist, MD - 10/04/2024 [place] [address] Ultrasound Report Signed Patient: SAPNA SERRANO MR#: [id number] : 1995 Acct:[id number] Age/Sex: 29 / F ADM Date: 09/24/24 Loc: [facility] Attending Dr: Curtis Paez D.O. Ordering Physician: Curtis Paez D.O. Date of Service: 09/24/24 Procedure(s): US OB placenta Accession Number(s): [id number] cc: [address] Corey D.O. The [place] [id number] Patient Name: SAPNA SERRANO MRN: [facility]:[id number] date: 1995 Sex: F Assigned Patient Location: [facility] Current Patient Location: US Accession/Order Number: [id number] Exam Date: 10/04/2024 09:16 Report Date: 10/04/2024 [...] Rahman M.D. 10/04/2024 9:50 AM Dictation Location: [place] [address] Electronically authenticated by: [id number] Y Date: 10/04/2024 09:50 Dictated By: Laura Rahman M.D. Signed By: 10/04/24 0952 DD/ 0950 TD/TT: [employer] Tender: [facility] Radiology Study observation (narrative) [facility] US OB PLACENTAOrdered By: Ra fanogfelipe Radiology on 10-04-2024 [facility] [employer] Work Phone: Urinalysis macro (dipstick) panel (U)on 10-03-2024 Bilirubin, UA Negative Negative - 4(70) +++ mg/dL [facility] Blood, UA Negative Negative - 50 Koby/mcL [facility] Clarity, UA Clear [facility] Healthca re Color, UA Yellow [facility] [employer] Glucose, UA Negative Negative - 1999(110) ++++ mg/dL [facility] Interpretation and review of laboratory results Abnormal [facility] Ketones, UA Negative Negative - 160(16) ++++ mg/dL [facility] Leukocytes, UA Negative Negative - 500+++ Danny/mcL [facility] Nitrite, UA Negative Negative - Positive [facility] pH, UA 7.5 5 - 9 [facility] [employer] Protein, UA Trace Negative - 1999(20) ++++ mg/dL [facility] Spec Grav, UA 1.02 1 - 1.03 [facility] Urobilinogen, UA 0.2 0.2 - 12 mg/dL [facility] US OB BPP W NON-STRESS on 09-25-2024 [place] [address] Ultrasound Report Signed Patient: SAPNA SERRANO MR#: [id number] : 1995 Acct:[id number] Age/Sex: 29 / F ADM Date: Loc: [facility] 251-[address]: Curtis Paez D.O. Ordering Physician: Curtis Paez D.O. Date of Service: 09/24/24 Procedure(s): US OB BPP w non-stress Accession Number(s): [id number] cc: [address] ; Curtis Paez D.O. The [place] [address] Patient Name: SAPNA SERRANO MRN: [id number]:[id number] date: 1995 Sex: F Assigned Patient Location: [facility] Current Patient Location: [facility] Accession/Order Number: [id number] Exam Date: 09/25/2024 08:05 Report Date: 09/25/2024 08:08 At the request of: CURTIS PAEZ DO Procedure: US OB BPP w non-stress CLINICAL DATA: History of bleeding. Possible abruption. BIOPHYSICAL PROFILE: COMPARISON: None There is a single live intrauterine gestation in cephalic presentation. The reported gestational age is 28 weeks 5 days. The heart rate [id number] beats per minute. FINDINGS: TONE: 1 or [...] Rahman M.D. 09/25/2024 8:08 AM Dictation Location: [place] [address] Electronically authenticated by: [id number] Y Date: 09/25/2024 08:08 Dictated By: Laura Rahman M.D. Signed By: 09/25/2410 DD/ 7 TD/TT: [employer] Tender: [facility] Radiology, Radiologist, MD - 09/25/2024 [place] [address] Ultrasound Report Signed Patient: SAPNA SERRANO MR#: [id number] : 1995 Acct:[id number] Age/Sex: 29 / F ADM Date: Loc: [facility] 251-[address]: Curtis Paez D.O. Ordering Physician: Curtis Paez D.O. Date of Service: 09/24/24 Procedure(s): US OB BPP w non-stress Accession Number(s): [id number] cc: [address] Corey D.O. The [place] [address] Patient Name: SAPNA SERRANO MRN: [facility]:[id number] date: 1995 Sex: F Assigned Patient Location: [facility] Current Patient Location: [facility] Accession/Order Number: [id number] Exam Date: 09/25/2024 08:05 Report Date: 09/25/2024 08:08 At the request of: CURTIS PAEZ DO Procedure: US OB BPP w non-stress CLINICAL DATA: History of bleeding. Possible abruption. BIOPHYSICAL PROFILE: COMPARISON: None There is a single live intrauterine gestation in cephalic presentation. The reported gestational age is 28 weeks 5 days. The heart rate [id number] beats per minute. FINDINGS: TONE: 1 or [...] fluid greater than 2 cm [Y] 2/2 NYAE: 17.4 cm . This is in upper normal range. Total score: 8/8 US/US OB BPP w non-stress IMPRESSION: NORMAL BIOPHYSICAL PROFILE Impression dictated by: Laura Rahman M.D. 09/25/2024 8:08 AM Dictation Location: [place] [address] Electronically authenticated by: [id number] Y Date: 09/25/2024 08:08 Dictated By: Laura Rahman M.D. Signed By: 09/25/24809 DD/ 7 TD/TT: [employer] Tender: [facility] Radiology Study observation (narrative) [facility] US OB BPP W NON-STRESS Ordered By: Radiologist Radiology on 09-25-2024 [facility] Work Phone: US OB CERVICAL LENGTHon 09-03 [place] [address] Ultrasound Report Signed Patient: SAPNA SERRANO MR#: [id number] : 1995 Acct:[id number] Age/Sex: 29 / F ADM Date: 09/21/24 Loc: US Attending Dr: Curtis Paez D.O. Ordering Physician: Curtis Paez D.O. Date of Service: 09/21/24 Procedure(s): US OB cervical length Accession Number(s): [id number] cc: [address] Corey D.O. [address] [address] Patient Name: SAPNA SERRANO MRN: [id number]:[id number] date: 1995 Sex: F Assigned Patient Location: US Current Patient Location: US Accession/Order Number: [id number] Exam Date: 09/21/2024 14:39 Report Date: 09/21/2024 [...] Jr., D.O. 09/21/2024 2:40 PM Dictation Location: [place] [address] Electronically authenticated by: [id number] Y Date: 09/21/2024 14:40 Dictated By: Hugo Atkins M.D. Signed By: 09/21/24 1443 DD/ 1440 TD/TT: [employer] Tender: [facility] Radiology, Radiologist, MD - 09/21/2024 [place] [address] Ultrasound Report Signed Patient: SAPNA SERRANO MR#: [id number] : 1995 Acct:[id number] Age/Sex: 29 / F ADM Date: 09/21/24 Loc: Attending Dr: Curtis Paez D.O. Ordering Physician: Curtis Paez D.O. Date of Service: 09/21/24 Procedure(s): US OB cervical length Accession Number(s): [id number] cc: [address] ; Curtis Paez D.O. The [place] [address] Patient Name: SAPNA SERRANO MRN: [facility]:[id number] date: 1995 Sex: F Assigned Patient Location: Current Patient Location: US Accession/Order Number: [id number] Exam Date: 09/21/2024 14:39 Report Date: 09/21/2024 [...] Jr., D.O. 09/21/2024 2:40 PM Dictation Location: [place] [address] Electronically authenticated by: [id number] Y Date: 09/21/2024 14:40 Dictated By: Hugo Atkins M.D. Signed By: 09/21/24 1443 DD/ 144 TD/TT: [employer] Tender: [facility] [employer] Radiology Study observation (narrative) [facility] US OB CERVICAL LENGTHOrdered By: Radiologist Radiology on 09-21-2024 [facility] [employer] Work Phone: US OB PLACENTAon 09-21-2024 [place] [address] Ultrasound Report Signed Patient: SAPNA SERRNAO MR#: [id number] : 1995 Acct:[id number] Age/Sex: 29 / F ADM Date: 09/21/24 Loc: US Attending Dr: Curtis Paez D.O. Ordering Physician: Curtis Paez D.O. Date of Service: 09/21/24 Procedure(s): US OB placenta Accession Number(s): [id number] cc: [address] Corey D.O. [place] [address] Patient Name: SAPNA SERRANO MRN: [id number]:[id number] date: 1995 Sex: F Assigned Patient Location: US Current Patient Location: US Accession/Order Number: [id number] Exam Date: 09/21/2024 14:41 Report Date: 09/21/2024 [...] x 1.7 cm. heart rate 162 bpm. NYAE is subjectively normal. US/US OB placenta IMPRESSION: Hypoechoic area is once again seen along the placenta measuring 6.6 x 1.6 x 2.1 cm which has progressed in size since the 09/14/2024 study. Given the history of trauma, placental abruption cannot BE excluded. Continued follow-up is recommended. Impression dictated by: Hugo Atkins Jr., D.O. 09/21/2024 2:53 PM Dictation Location: [place] [address] Electronically authenticated by: [id number] Y Date: 09/21/2024 14:53 Dictated By: Hugo Atkins M.D. Signed By: 09/21/24 1456 DD/ 1453 TD/TT: [employer] Tender: [facility] Radiology, Radiologist, MD - 09/21/2024 [place] [address] Ultrasound Report Signed Patient: SAPNA SERRANO MR#: [id number] : 1995 Acct:[id number] Age/Sex: 29 / F ADM Date: 09/21/24 Loc: US Attending Dr: Curtis Paez D.O. Ordering Physician: Curtis Paez D.O. Date of Service: 09/21/24 Procedure(s): US OB placenta Accession Number(s): [id number] cc: [address] Corey D.O. The [address] [address] Patient Name: SAPNA SERRANO MRN: [facility]:[id number] date: 1995 Sex: F Assigned Patient Location: US Current Patient Location: US Accession/Order Number: [id number] Exam Date: 09/21/2024 14:41 Report Date: 09/21/2024 [...] Jr., D.O. 09/21/2024 2:53 PM Dictation Location: [facility] CAREcitizenmade Electronically authenticated by: [id number] Y Date: 09/21/2024 14:53 Dictated By: Hugo Atkins M.D. Signed By: 09/21/24 1456 DD/ 1453 TD/TT: [employer] Tender: [facility] Radiology Study observation (narrative) [facility] OB PLACENTAOrdered By: Ra recio Radiology on 09-21-2024 [facility] [employer] Work Phone: US OB 1 OR [...] Eldon Maldonado MD 09/11/24 Final result Normal [facility] ALL CBC WITH AUTO DIFFon BASOPHILS ABSOLUTE AUTO 0.1 [facility] Basophils/100 WBC (Bld) 0.7 % 0.2 - 2.0 % [facility] Eosinophils/100 WBC (Bld) 1.8 % 0.9 - 7.0 % [facility] Erythrocyte distribution width (RBC) [Ratio] 13.7 % 11.0 - 15.0 % [facility] IMMATURE GRANULOCYTES ABS AUTO 0.06 High [facility] Immature granulocytes/100 WBC (Bld) 0.5 % 0.0 - 0.5 % [facility] Interpretation and review of laboratory results Abnormal [facility] LYMPHOCYTES ABSOLUTE AUTO 2.1 [facility] Lymphocytes/100 WBC (Bld) 17.6 % Low 20.5 - 60.0 % [facility] MCH (RBC) [Entitic mass] 30.1 pg 26.7 - 34.0 pg [facility] MCHC (RBC) [Mass/Vol] 33.5 g/dL 29.9 - 35.2 g/dL [facility] MCV (RBC) [Entitic vol] 89.8 fL 81.0 - 99.0 fL [facility] MONOCYTES ABSOLUTE AUTO 0.7 [facility] Monocytes/100 WBC (Bld) 6 % 1.7 - 12.0 % [facility] NEUTROPHILS ABSOLUTE AUTO 8.6 High [facility] Neutrophils/100 WBC (Bld) 73.4 % 43.0 - 75.0 % [facility] Platelet mean volume (Bld) [Entitic vol] 9.6 fL 9.5 - 13.[address] [facility] Healthc are TBH EO # 0.2 [facility] PLT 272 [facility] RBC 4.32 [facility] WBC 11.[address] [facility] CBC without diffon Platelets (Bld) [#/Vol] 272 10*3/uL [facility] Rbc Mcv (Fl) By Automated Count 89.8 [facility] Glucose tolerance, 1 houron 08-30-2024 Glucose Tolerance Test 1 Hour 66 [facility] Laboratory - Hematology and Cell countson 08-30-2024 Hematocrit (Bld) [Volume fraction] 38.8 % [facility] [employer] Hemoglobin (Bld) [Mass/Vol] 13 g/dL [facility] [employer] No Panel Informationon 08-30 [facility] Colposcopyon 08-14-2024 Curtis Paez DO 08/15/2024 [...] paperwork completed: yes Educational handouts given: no [facility] [employer] [facility] SEND OUT TESTon 07-28-2024 SENT TO [facility] VIA [employer] [phone] [facility] Comment on above: Result Comment: Miki ected on 07/28 AT 1418: Previously reported as [facility] [employer] [id number] SENT TO [facility] VIA [employer] [id number] [place] [address] Comment on above: Result Comment: Miki ected on 07/28 AT 1418: Previously reported as [facility] [employer] [id number] SPECIMEN 3 MATERNAL AMNIOTIC FLUID 2 EDTA AND 1 SODIUM HEP MATERNAL Normal [facility] TEST NAME: KNOWN MUTATION ANALYSIS CFTR GENE Normal [facility] TEST NAME: MATERNAL CELL CONTAMINATION Normal [facility] TEST RESULT See separate report. View in OnBase or in EPIC. Normal [facility] AFP, SERUM, OPEN SPINA BIFID Aon 07-08-[address] [facility] [employer] AFP VALUE 28.4 ng/mL . [facility] COMMENT: Comment . [facility] Comment on above: Joan Shetty , Ph.D., [facility] Director References: Available Upon Request. Multiples Of Median Cutoffs For AFP Elevations [place] 2.5 Black 2.8 IDD 2.0 Twins 4.5 Abbreviation Definitions IDD - Insulin Dep Diabetes OSBR - Open Spina Bifida Risk For further inquiries contact [facility] at [phone]. This test was developed and its performance characteristics determined by [facility]. It has not been cleared or approved by the Food and Drug Administration. Performed at: [facility] RTP [address] [facility], [place], [place] [id number] Relaster: Sonja Esposito [facility], Phone: [phone] GEST. AGE ON COLLECTION DATE 17.1 . weeks [facility] GESTAT. AGE BASED ON LMP . [facility] Comment on above: Recalculations are n ot recommended when gestational dating by LMP and ultrasound are within 10 days. INSULIN DEP DIABETES No . [facility] INTERPRETATION Comment . [facility] wong Comment on above: Interpretation: Scre en Negative [...] Customer Services to discuss available options. The [employer] recommends amniocentesis be offered to women age 35 and older. [age]ERNAL AGE AT DOMINIQUE 29.3 [age] [facility] MULTIPLE GESTATION No . [facility] [place] [address] [place] [address] . [facility]ated within [facility] RACE . [facility] [employer] RESULTS Report . [facility] [employer] TEST RESULTS: Negative . [facility] WEIGHT [address] [facility] Health[facility] N N LMP [id number] 1 17 N 1 Y 186 N N N N N White/ [facility] [employer] RECURRENT VAGINITIS (HTRX)on 07-07-2024 AT[facility]INAE 0 [facility] AT[facility] VAGINAE Not detected [facility] BVAB 2,3 (BACTERIAL VAGINOSIS ASSOCIATED BACTERIA 2, 3); MOBILUNCUS SPP 0 [facility] BVAB 2,3 (BACTERIAL VAGINOSIS ASSOCIATED BACTERIA 2, 3); MOBILUNCUS SPP Not detected [facility] ILIANA ALBICANS, PARAPSILOSIS, TROPICALIS 0 [facility] [place]NA ALBICANS, PARAPSILOSIS, TROPICALIS Not detected [facility] [place] GLABRATA 0 [facility] [place] GLABRATA Not detected N[facility] [place] KRUSEI 0 [facility] [place] KRUSEI Not detected [facility] CHLAMYDIA TRACHOMATIS 22.157 Abnormal [facility] Healthcare CHLAMYDIA TRACHOMATIS Detected Abnormal [facility] Healthcare ERMB, C; MEFA 26.[address] [facility] Health care ERMB, C; MEFA Detected Abnormal [facility] GARDNERELLA VAGINALIS 0 [facility] Healthcare GARDNERELLA VAGINALIS Not detected N [facility] Interpretation and review of laboratory results Abnormal [facility] MEGASPHAERA (TYPES 1, 2) 0 [facility] MEGASPHAERA (TYPES 1, 2) Not detected [facility] MYCOPLASMA GENITALIUM 0 [facility] MYCOPLASMA GENITALIUM Not detected N [facility] NEISSERIA GONORRHOEAE 0 [facility] NEISSERIA GONORRHOEAE Not detected N [facility] TET B, TET M 23.[address] [facility] Healthc are TET B, TET M Detected Abnormal [facility] are TRICHOMONAS VAGINALIS 0 [facility] TRICHOMONAS VAGINALIS Not detected N [facility] AFP Single Marker Scrn, Mate rnal, Serumon 07-06-2024 Ms Alpha-Fetoprotein Negative [facility] C. trachomatis DNA ALLISON+probe Ql (Unsp spec)on 07-06-2024 Chlamydia Dna(Pcr) Detected [place] Gonorrhoeae Dna(Pcr) Negative [facility] HM PAP SMEARon 07-06-2024 HM Pap smear LSIL [facility] High risk HPV w/genoon 07-06 Other High Risk Hpv Negative [facility] No Panel Informationon 07-06 [facility] Urinalysis macro (dipstick) panel (U)on 07-06-2024 Bilirubin, UA Negative Negative - 4(70) +++ mg/dL [facility] Blood, UA Negative Negative - 50 Koby/mcL [facility] Clarity, UA Clear [facility] Color, UA Yellow [facility] Glucose, UA Negative Negative - 1999(110) ++++ mg/dL [facility] Interpretation and review of laboratory results Abnormal [facility] Ketones, UA Positive Negative - 160(16) ++++ mg/dL [facility] Comment on above: trace Leukocytes, UA Trace Negative - 500+++ Danny/mcL [facility] Nitrite, UA Negative Negative - Positive [facility] pH, UA 6 5 - 9 [facility] Protein, UA Trace Negative - 1999(20) ++++ mg/dL [facility] Spec Grav, UA 1.03 1 - 1.03 [facility] Urobilinogen, UA 0.2 0.2 - 12 mg/dL [facility] [place] [address] Ultrasound Report Signed Patient: SAPNA SERRANO MR#: [id number] : 1995 Acct:[id number] Age/Sex: 28 / F ADM Date: 07/05/24 Loc: US Attending Dr: Curtis Paez D.O. Ordering Physician: Curtis Paez D.O. Date of Service: 07/05/24 Procedure(s): US OB cervical length Accession Number(s): [id number] cc: [address] ; Curtis Paez D.O. [place] [address] Patient Name: SAPNA SERRANO MRN: [facility]:[id number] date: 1995 Sex: F Assigned Patient Location: Current Patient Location: [place] Accession/Order Number: [id number] Exam Date: 07/05/2024 08:08 Report Date: 07/05/2024 [...] Laura Rahman M.D.07/05/2024 8:10 AM Dictation Location: [place] [address] Electronically authenticated by: [id number] Y Date: 07/05/2024 08:10 Dictated By: Laura Rahman M.D. Signed By: 07/05/24812 DD/ 9 TD/TT: Element [employer] Tender: [facility] Radiology, Radiologist, MD - 07/05/2024 [place] [address] Ultrasound Report Signed Patient: SAPNA SERRANO MR#: [id number] : 1995 Acct:[id number] Age/Sex: 28 / F ADM Date: 07/05/24 Loc: US Attending Dr: Curtis Paez D.O. Ordering Physician: Curtis Paez D.O. Date of Service: 07/05/24 Procedure(s): US OB cervical length Accession Number(s): [id number] cc: [address] ; Curtis Paez D.O. The [place] [id number] Patient Name: SAPNA SERRANO MRN: [facility]:[id number] date: 1995 Sex: F Assigned Patient Location: Current Patient Location: [place] Accession/Order Number: [id number] Exam Date: 07/05/2024 08:08 Report Date: 07/05/2024 [...] Laura Rahman M.D.07/05/2024 8:10 AM Dictation Location: [place] [address] Electronically authenticated by: [id number] Y Date: 07/05/2024 08:10 Dictated By: Laura Rahman M.D. Signed By: 07/05/24812 DD/ 9 TD/TT: [employer] Tender: [facility] Radiology Study observation (narrative) [facility] US OB CERVICAL LENGTHOrdered By: Radiologist Radiology on 07-05-2024 [facility] Work Phone: Urinalysis macro (dipstick) panel (U)on 06-08-2024 Bilirubin, UA Negative Negative - 4(70) +++ mg/dL [facility] Blood, UA Negative Negative - 50 Koby/mcL [facility] Clarity, UA Clear [facility] re Color, UA Yellow [facility] Glucose, UA Negative Negative - 1999(110) ++++ mg/dL [facility] Interpretation and review of laboratory results Normal [facility] Ketones, UA Negative Negative - 160(16) ++++ mg/dL [facility] Leukocytes, UA Negative Negative - 500+++ Danny/mcL [facility] Nitrite, UA Negative Negative - Positive [facility] pH, UA 6 5 - 9 [facility] e Protein, UA Negative Negative - 1999(20) ++++ mg/dL [facility] Spec Grav, UA 1.02 1 - 1.03 [facility] Urobilinogen, UA 0.2 0.2 - 12 mg/dL [facility] ALL CBC WITH AUTO DIFFon BASOPHILS ABSOLUTE AUTO 0.1 [facility] Basophils/100 WBC (Bld) 0.6 % 0.2 - 2.0 % [facility] Eosinophils/100 WBC (Bld) 1.7 % 0.9 - 7.0 % [facility] Erythrocyte distribution width (RBC) [Ratio] 13.2 % 11.0 - 15.0 % [facility] Hematocrit (Bld) [Volume fraction] 41.1 % 36.0 - 48.0 % [facility] Hemoglobin (Bld) [Mass/Vol] 13.5 g/dL 12.0 - 16.0 g/dL [facility] IMMATURE GRANULOCYTES ABS AUTO 0.05 High [facility] Immature granulocytes/100 WBC (Bld) 0.5 % 0.0 - 0.5 % [facility] Interpretation and review of laboratory results Abnormal [facility] LYMPHOCYTES ABSOLUTE AUTO 1.9 [facility] Lymphocytes/100 WBC (Bld) 17 % Low 20.5 - 60.0 % [facility] MCH (RBC) [Entitic mass] 29.6 pg 26.7 - 34.0 pg [facility] MCHC (RBC) [Mass/Vol] 32.8 g/dL 29.9 - 35.2 g/dL [facility] MCV (RBC) [Entitic vol] 90.1 fL 81.0 - 99.0 fL [facility] MONOCYTES ABSOLUTE AUTO 0.8 [facility] Monocytes/100 WBC (Bld) 7 % 1.7 - 12.0 % [facility] NEUTROPHILS ABSOLUTE AUTO 8.1 High [facility] Neutrophils/100 WBC (Bld) 73.2 % 43.0 - 75.0 % [facility] Platelet mean volume (Bld) [Entitic vol] 9.6 fL 9.5 - 13.[address] [facility] TBH EO # 0.2 [facility] TB PLT [address] [facility] RBC [address] [facility] WBC 11.[address] [facility] CLINISYNC BOX TESTon 05-17-2024 BOX TEST SENT OUT [facility] BOX[address] [facility] BOX2 05/17/24 [facility] [place] BOX CLINISYNC [facility] Drug Screen, Urineon 025 Amphetamine/Methamphet amine Negative [facility] Barbiturates Negative [facility] Benzodiazepines Negative [facility] Cocaine Metabolite Negative [facility] Methadone Negative [facility] Opiates Negative [facility] Oxycodone Negative [facility] Phencyclidine Negative [facility] Thc Marijuana, Urine Negative [facility] HBV surface Ag IA Qlon 05-17 Hepatitis B Surface Antigen Negative [facility] HCV Ab IA Qlon 05-17-2024 HCV Ab Ql (S) Non-Reactive [facility] HIV 1+2 Ab+HIV1 p24 Ag IA Ql on 05-17-2024 HIV 1&2 AB/AG Non-Reactive [facility] No Panel Informationon 05-17 [facility] Rubella IGG immune statuson 05-17-2024 Rubella immune IgG 1.54 [place] Comment on above: IMMUNE T. pallidum IgG+IgM IA Ql (S )Ordered By: Lyric Sánchez on 05-17-2024 Syphilis Non-Reactive [facility] TSHon 05-17-2024 Thyroid Stimulating (3Rd Generation) Hormone/ Tsh 0.649 [facility] Type and screenon 05-17-2024 Abo/Rh(D) Positive [facility] HCG ( test) Ql (U)o n 05-05-2024 Interpretation and review of laboratory results Abnormal [facility] Preg Test, Ur Positive Negative [facility] Urinalysis macro (dipstick) panel (U)on 05-05-2024 Bilirubin, UA Negative Negative - 4(70) +++ mg/dL [facility] Blood, UA Negative Negative - 50 Koby/mcL [facility] Clarity, UA Clear [facility] re Color, UA Yellow [facility] Glucose, UA Negative Negative - 1999(110) ++++ mg/dL [facility] Interpretation and review of laboratory results Abnormal [facility] Ketones, UA Negative Negative - 160(16) ++++ mg/dL [facility] Leukocytes, UA Negative Negative - 500+++ Danny/mcL [facility] Nitrite, UA Negative Negative - Positive [facility] pH, UA 7 5 - 9 [facility] Protein, UA Positive Negative - 1999(20) ++++ mg/dL [facility] Comment on above: 30 Spec Grav, UA 1.02 1 - 1.03 [facility] Urobilinogen, UA 0.2 0.2 - 12 mg/dL [facility] Basic Metabolic Panelon 04-06 Anion gap [Moles/Vol] 12 mmol/L 9 - 16 mmol/L [facility] Calcium [Mass/Vol] 9.1 mg/dL 8.6 - 10. 4 mg/dL [facility] Chloride [Moles/Vol] 102 mmol/L 98 - 10 7 mmol/L [facility] CO2 [Moles/Vol] 23 mmol/L 20 - 31 mmol/L [facility] Creatinine [Mass/Vol] 0.5 mg/dL 0.50 - 0.90 mg/dL [facility] Est, Tom Hogan Rate - PINF [facility] Comment on above: These results [...] 66 mg/dL Low 74 - 99 mg/dL [facility] Interpretation and review of laboratory results Abnormal [facility] Potassium [Moles/Vol] 3.8 mmol/L 3.7 - 5.3 mmol/L [facility] Sodium [Moles/Vol] 137 mmol/L 136 - 145 mmol/L [facility] Urea nitrogen [Mass/Vol] 9 mg/dL 6 - 20 mg/dL [facility] Urea nitrogen/Creatinine [Mass ratio] 18 mg/mg 9 - 20 [facility] Basic Metabolic Profon 04-27 Anion gap [Moles/Vol] 12 mmol/L Normal -16 [facility] Comment on above: Performed By: #### B JACQUELIN, CDP #### [facility] [address] [place] [address] Relaster: Gal Katz MD BUN/CRE Ratio 18 Normal -20 [facility] Comment on above: Performed By: #### B MP, CDP #### [facility] [address] [place] [address] Relaster: Gal Katz MD Calcium [Mass/Vol] 9.1 mg/dL Normal 8.6-10.4 [facility] Comment on above: Performed By: #### B JACQUELIN, CDP #### [facility] [address] [place], [place] [id number] Relaster: Gal Katz MD Chloride [Moles/Vol] 102 mmol/L Normal 98-107 [facility] Comment on above: Performed By: #### B JACQUELIN, CDP #### [facility] [address] [place], [place] [id number] Relaster: Gal Katz MD CO2 [Moles/Vol] 23 mmol/L Normal 20-31 [facility] Comment on above: Performed By: #### B JACQUELIN, CDP #### [facility] [address] [place], [place] [address]83 Relaster: Gal Katz MD Creatinine [Mass/Vol] 0.5 mg/dL Normal 0.50-0.90 [facility] Comment on above: Performed By: #### B JACQUELIN, CDP #### [facility] [address] [place], [place] [id number] Relaster: Gal Katz MD GFR/1.73 sq M.predicted among non-blacks MDRD (S/P/Bld) [Vol rate/Area] mL/min/{1.73_m2} Normal >60 [facility] Comment on above: Result Comment: These results [...] Performed By: #### B JACQUELIN, CDP #### [facility] [address] [place], [place] [id number] Relaster: Gal Katz MD Glucose [Mass/Vol] 66 mg/dL Low 74-99 [facility] Comment on above: Performed By: #### B JACQUELIN, CDP #### [facility] [address] [place], [place] [phone] Relaster: Gal Katz MD Potassium [Moles/Vol] 3.8 mmol/L Normal 3.7-5.3 [facility] Comment on above: Performed By: #### B JACQUELIN, CDP #### [facility] [address] [place], [place] [id number] Relaster: Gal Katz MD Sodium [Moles/Vol] 137 mmol/L Normal 136-145 [facility] Comment on above: Performed By: #### B JACQUELIN, CDP #### [facility] [address] [place], [place] [id number] Relaster: Gal Katz MD Urea nitrogen [Mass/Vol] 9 mg/dL Normal 6-20 [facility] Comment on above: Performed By: #### B JACQUELIN, CDP #### [facility] [address] [place], [place] [address]83 Relaster: Gal Katz MD CBC with Auto Differentialon 04-27-2024 Basophils (Bld) [#/Vol] 0.09 10*3/uL [facility] Basophils/100 WBC (Bld) 1 % 0 - 2 % [facility] Eosinophils (Bld) [#/Vol] 0.17 10*3/uL [facility] Eosinophils/100 WBC (Bld) 2 % 1 - 4 % [facility] Erythrocyte distribution width (RBC) [Ratio] 12.7 % 11.8 - 14.4 % [facility] Hematocrit (Bld) [Volume fraction] 41.1 % 36.3 - 47.1 % [facility] Hemoglobin (Bld) [Mass/Vol] 14.0 g/dL 11.9 - 15.1 g/dL [facility] Immature granulocytes (Bld) [#/Vol] 0.04 10*3/uL [facility] Immature granulocytes/100 WBC (Bld) 0 % 0 [facility] Interpretation and review of laboratory results Abnormal [facility] Lymphocytes/100 WBC (Bld) 20 % Low 24 - 43 % [facility] Lymphocytes/100 WBC (Bld) 2.31 % [facility] MCH (RBC) [Entitic mass] 30.1 pg 25.2 - 33.5 pg [facility] MCHC (RBC) [Mass/Vol] 34.1 g/dL 28.4 - 34.8 g/dL [facility] MCV (RBC) [Entitic vol] 88.4 fL 82.6 - 102.9 fL [facility] Monocytes/100 WBC (Bld) 8 % 3 - 12 % [facility] Monocytes/100 WBC (Bld) 0.90 % [facility] Neutrophils/100 WBC (Bld) 69 % High 36 - 65 % [facility] Nucleated RBC/100 WBC (Bld) [Ratio] 0.0 % 0.0 per 100 WBC [facility] Platelet mean volume (Bld) [Entitic vol] 9.4 fL 8.1 - 13.5 fL [facility] Platelets (Bld) [#/Vol] 327 10*3/uL [facility] RBC (Bld) [#/Vol] 4.65 10*6/uL 3.95 - 5.1 1 m/uL [facility] Segmented neutrophils/100 WBC (Bld) 8.09 % [facility] WBC other (Bld) [#/Vol] 11.6 High [facility] CBC with Diffon 04-27-2024 Abs. Basophil 0.09 k/uL Normal 0.00-0.20 [facility] Comment on above: Performed By: #### B JACQUELIN, CDP #### [facility] [address] [place] [address] Relaster: Gal Katz MD Abs.Imm.Granulocyte 0.04 k/uL Normal 0.00-0.30 [facility] Comment on above: Performed By: #### B JACQUELIN, CDP #### [facility] [address] [place], [place] [phone] Relaster: Gal Katz MD Abs.Neutrophil (Seg) 8.09 k/uL Normal 1.50-8.10 [facility] Comment on above: Performed By: #### B MP, CDP #### [address] [place], [place] [phone] Relaster: Gal Katz MD Basophils/100 WBC (Bld) 1 % Normal 0-2 [facility] Comment on above: Performed By: #### B MP, CDP #### [address] [place], [place] 1725083 Relaster: Gal Katz MD Eosinophils (Bld) [#/Vol] 0.17 10*3/uL Normal 0.00-0.44 [facility] Comment on above: Performed By: #### B MP, CDP #### [address] [place], [place] [phone] Relaster: Gal Katz MD Eosinophils/100 WBC (Bld) 2 % Normal 1-4 [facility] Comment on above: Performed By: #### B MP, CDP #### [address] [place], [place] [phone] Relaster: Gal Katz MD Erythrocyte distribution width (RBC) [Ratio] 12.7 % Normal 11.8-14.4 [facility] Comment on above: Performed By: #### B MP, CDP #### [address] [place], [place] [phone] Relaster: Gal Katz MD Hematocrit (Bld) [Volume fraction] 41.1 % Normal 36.3-47.1 [facility] Comment on above: Performed By: #### B MP, CDP #### [address] [place], [place] 5855483 Relaster: Gal Katz MD Hemoglobin (Bld) [Mass/Vol] 14.0 g/dL Normal 11.9-15.1 [facility] Comment on above: Performed By: #### B JACQUELIN, CDP #### [facility] [address] [place] [address] Dr[place], [place] [address]83 Relaster: Gal Katz MD Immature granulocytes/100 WBC (Bld) 0 % Normal 0 [facility] Comment on above: Performed By: #### B JACQUELIN, CDP #### [address] [place], [place] [phone] Relaster: Gal Katz MD Lymphocytes (Bld) [#/Vol] 2.31 10*3/uL Normal 1.10-3.70 [facility] Comment on above: Performed By: #### B JACQUELIN, CDP #### [address] [place], [place] [phone] Relaster: Gal Katz MD Lymphocytes/100 WBC (Bld) 20 % Low 24-43 [facility] Comment on above: Performed By: #### B JACQUELIN, CDP #### [address] [place], [place] [id number] Relaster: Gal Katz MD MCH (RBC) [Entitic mass] 30.1 pg Normal 25.2-33.5 [facility] Comment on above: Performed By: #### B JACQUELIN, CDP #### [facility] [address] [place] [address] [place], [place] [phone] Relaster: Gal Katz MD MCHC (RBC) [Mass/Vol] 34.1 g/dL Normal 28.4-34.8 [facility] Comment on above: Performed By: #### B JACQUELIN, CDP #### [address] [place], [place] [phone] Relaster: Gal Katz MD MCV (RBC) [Entitic vol] 88.4 fL Normal 82.6-102.9 [facility] Comment on above: Performed By: #### B MP, CDP #### [facility] [address] [place], [place] 29[address]83 Relaster: Gal Katz MD Monocytes (Bld) [#/Vol] 0.90 10*3/uL Normal 0.10-1.20 [facility] Comment on above: Performed By: #### B MP, CDP #### [facility] [address] [place], [place] [phone] Relaster: Gal Katz MD Monocytes/100 WBC (Bld) 8 % Normal 3-12 [facility] Comment on above: Performed By: #### B JACQUELIN, CDP #### [facility] [address] [place], [place] [phone] Relaster: Gal Katz MD Neutrophil (Seg) 69 % High 36-65 [facility] Comment on above: Performed By: #### B MP, CDP #### [facility] [address] [place], [place] 7758383 Relaster: Gal Katz MD NRBC Automated 0.0 per 100 WBC Normal 0.0 [facility] Comment on above: Performed By: #### B MP, CDP #### [address] [place], [place] 4977383 Relaster: Gal Katz MD Platelet mean volume (Bld) [Entitic vol] 9.4 fL Normal 8.1-13.5 [facility] Comment on above: Performed By: #### B MP, CDP #### [address] [place], [place] 0872183 Relaster: Gal Katz MD Platelets (Bld) [#/Vol] 327 10*3/uL Normal 138-453 [facility] Comment on above: Performed By: #### B MP, CDP #### [address] [place] [phone] Relaster: Gal Katz MD RBC (Bld) [#/Vol] 4.65 10*6/uL Normal 3.95-5.11 [facility] Comment on above: Performed By: #### B MP, CDP #### [facility] [address] [place], [place] 617[address]83 Relaster: Gal Katz MD WBC (Bld) [#/Vol] 11.6 10*3/uL High 3.5-11.3 [facility] Comment on above: Performed By: #### B MP, CDP #### [facility] [address] [place], [place] 06[address] Relaster: Gal Katz MD HCG, Quanton 04-27-2024 HCG, Quant 86399.0 mIU/mL High 0-7 [facility] Comment on above: Result Comment: Non-preg premeno <=5 Postmeno <=8 Male <=3 If HCG results do not concur with clinical observations, additional testing to confirm results is recommended. Performed By: #### B HCG #### [facility] [address] [place], [place] [address]30[address] Relaster: Gal Katz MD HCG, Quantitative, on 04-27-2024 [place] [address].0 m[IU]/mL High [facility] Comment on above: Non-preg premeno <=5 Postmeno <=8 Male <=3 If HCG results do not concur with clinical observations, additional testing to confirm results is recommended. Interpretation and review of laboratory results Abnormal [facility] TYPE AND SCREENon 04-27-2024 ABO and Rh group Nom (Bld) Blood group A Rh(D) positive [facility] Arm Band Number [id number] [facility] Blood Bank Sample Expiration 04/30/2024,2359 [facility] Blood group antibodies identified Nom Negative [facility] Type + Screenon 04-27-2024 Type + Screen Sample Expiration 04/30/2024,2359 Arm Band Number [id number] ABO/Rh(D) A POSITIVE Antibody Screen NEGATIVE Normal [facility] Comment on above: Performed By: #### T YS #### [facility] [address] [place] [address] Relaster: Gal Katz MD US OB LESS THAN [...] Onur Mack MD 04/27/24 Final result Normal [facility] Single viable intrauterine with an estimated gestational age of 7 weeks 2 days and an estimated date of delivery of 12/12/2024 with no gross abnormality seen. Normal size right ovary with normal blood flow documented to the ovary and no ovarian masses seen. Nonvisualization of the left ovary which is probably obscured due to overlying bowel gas No adnexal mass or free fluid. [facility] EXAMINATION: FIRST TRIMESTER OBSTETRIC ULTRASOUND [...] adnexal mass or free fluid is seen. [facility] Onur Mack MD - 04/27/2024 [...] gas No adnexal mass or free fluid. [facility] Radiology Study observation (narrative) [facility] US OB LESS THAN 14 WEEKS SIN GLE OR FIRST GESTATION W DOPPLEROrdered By: Onur Mack on 04-27-2024 [facility] Work Phone: Urinalysis w/ Microon 2024 Bacteria 1+ Abnormal NONE [facility] Comment on above: Performed By: #### U AMIC #### [facility] [address] [place] [address] Relaster: Gal Katz MD Bilirubin, SemiQt,Ur Negative Normal NEG [facility] Comment on above: Performed By: #### U AMIC #### [facility] [address] [place], [place] [phone] Relaster: Gal Katz MD Blood, Urine 1+ Abnormal NEG [facility] Comment on above: Performed By: #### U AMIC #### [facility] [address] [place], [place] [phone] Relaster: Gal Katz MD Clarity (U) SLIGHTLY CLOUDY Abnormal CLEAR [facility] Comment on above: Performed By: #### U AMIC #### [facility] [address] [place] [address] Relaster: Gal Katz MD Color (U) Yellow Normal YEL [facility] Comment on above: Performed By: #### U AMIC #### [facility] [address] [place] [address] Relaster: Gal Katz MD Epithelial cells LM Ql (Urine sed) 20 TO 50 Normal 0-25 [facility] Comment on above: Performed By: #### U AMIC #### [facility] [address] [place] [address] [place] [address] Relaster: Gal Katz MD Glucose Ql (U) Negative Normal NEG [facility] Comment on above: Performed By: #### U AMIC #### [facility] [address] [place] [address] [place], [place] [phone] Relaster: Gal Katz MD Ketones Ql (U) Negative Normal NEG [facility] Comment on above: Performed By: #### U AMIC #### [facility] [address] [place] [address] [place], [place] [phone] Relaster: Gal Katz MD Leukocyte esterase Test strip Ql (U) Negative Normal NEG [facility] Comment on above: Performed By: #### U AMIC #### [facility] [address] [place] [address] [place] [address] Relaster: Gal Katz MD Nitrite,Ur Negative Normal [facility] Comment on above: Performed By: #### U AMIC #### [facility] [address] [place] [address] [place] [address] Relaster: Gal Katz MD PH,Ur 6.0 Normal 5.0-9.0 [facility] Comment on above: Performed By: #### U AMIC #### [facility] [address] [place] [address] [place] [address] Relaster: Gal Katz MD Protein Ql (U) Negative Normal NEG [facility] Hospital Comment on above: Performed By: #### U AMIC #### [facility] [address] [place] [address] [place], [place] [phone] Relaster: Gal Katz MD Spec. [place],Ur 1.025 High 1.010-1.020 [facility] Comment on above: Performed By: #### U AMIC #### [facility] [address] [place] [address] [place] [address] Relaster: Gal Katz MD Urine RBC's 2 TO 5 Normal 0-2 [facility] Comment on above: Performed By: #### U AMIC #### [facility] [address] [place], [place] [id number] Relaster: Gal Katz MD Urine WBC's 2 TO 5 Normal 0-5 [facility] [place] Comment on above: Performed By: #### U AMIC #### [facility] [address] [place], [place] [id number] Relaster: Gal Katz MD Urobilinogen,Ur Normal Normal 0.0-1.0 [facility] Comment on above: Performed By: #### U AMIC #### [facility] [address] [place] [address] Relaster: Gal Katz MD Urinalysis with Microscopico n 04-27-2024 Bacteria LM Ql (Urine sed) 1+ Abnormal None [facility] Bilirubin Ql (U) Negative NEGATIVE [facility] Seco urs [facility] Health Clarity (U) SLIGHTLY CLOUDY Abnormal Clear [facility] Color (U) Yellow Yellow [facility] Epithelial cells LM.HPF (Urine sed) [#/Area] 20 TO 50 [facility] Glucose Test strip (U) [Mass/Vol] Negative NEGATIVE mg/dL [facility] Hemoglobin Auto test strip Ql (U) 1+ Abnormal NEGATIVE [facility] Interpretation and review of laboratory results Abnormal [facility] Ketones (U) [Mass/Vol] Negative NEGAT ROSS mg/dL [facility] Leukocyte esterase Test strip Ql (U) Negative NEGATIVE [facility] Nitrite Ql (U) Negative NEGATIVE [facility] pH (U) 6.0 [pH] 5.0 - 9.[address] [facility] Protein (U) [Mass/Vol] Negative NEGAT ROSS mg/dL [facility] RBC LM.HPF (Urine sed) [#/Area] 2 TO 5 [facility] Specific gravity (U) [Rel density] 1.025 High 1.010 - 1.020 [facility] Urobilinogen Qn (U) Normal 0.0 - 1. 0 EU/dL [facility] WBC LM.HPF (Urine sed) [#/Area] 2 TO 5 [facility] HCG ( test) Ql (U)o n 09-03-2023 Beta HCG ( test) Ql (U) Negative Normal NEG [facility] Comment on above: Performed By: #### 2 106-3 #### [facility] ([id number]) [address] [place] [address], [place] [address] Surgical Pathologyon 024 Surgical Pathology Normal [facility] Comment on above: Result Comment: [facility] [address] [place] [address] Surgical Pathology Consultation Patient Name:SAPNA SERRANO:1995 (Age: 28)Gender:FTaken:09/03/2023eported:09/07/2023hysician(s):Haja Osullivan MD ([phone])Copy To: Rec. #:[id number]: #[id number] Final Pathologic Diagnosis Sigmoid colon biopsies: Unremarkable colonic mucosa. No colitis, granuloma or dysplasia identified. No microscopic colitis or inflammatory bowel disease identified. Report Electronically Signed Out ssi/09/07/2023Huber Hayes M.D. Interpretation performed at [facility], [address] [place] [address], License number: [id number]. Clinical History Rectal bleeding. Gross Description Received in formalin labeled JEREMY sigmoid BX are eight light cortes soft tissue bits, 0.2-0.4 cm.The specimen is filtered and entirely submitted in a single cassette. (1, ns, [id number],m3) DM. dm/09/04/2023O Specimen(s) Received Sigmoid biopsy Fee Codes(s): 1; 59360 CHLAMYDIA/GC PCR, FLon 08-09 CHLAMYDIA/GC PCR, FL [...] are dependent on adequate specimen collection. Normal [facility] Comment on above: Performed By: #### C GT #### [facility] ([id number]) [address] [facility], FIRST FLOOR [place], [place] [id number] [place] [address] LAB ([id number]) [address] [place] [address], [address] [place] [address] Cytologyon 08-10-2023 Cytology Normal [facility] Comment on above: Result Comment: [facility] [address] [place] [address] Gynecologic Cytology Consultation Patient Name:SAPNA SERRANO:1995 (Age: 28)Gender:FTaken:4Reported:08/26/2023hysician(s):Claire Kat M.D. ([phone])Copy To: Rec. #:[id number]: #[id number] Final Cytologic Interpretation ThinPrep Pap Test (Cervical): Satisfactory for evaluation. A transformation zone component is present. NEGATIVE FOR INTRAEPITHELIAL LESION OR MALIGNANCY. Shift in daniella suggestive of bacterial vaginosis. [facility]/08/26/2023 [place] [address], License number: [id number]. 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 The Pap test is primarily effective for the diagnosis and prevention of squamous cell carcinoma. Regular screening is critical for prevention. ThinPrep liquid-based slides, which meet the Retail Bakery Manager criteria for automated screening, have been screened by the ThinPrep Imaging System (as of 12/20/06) along with an additional manual rescreening by a emission specialist and, if indicated, by a pathologist. HIGH RISK HPV W/GENOon 08-09 HPV 31+33+35+39+45+51+52+5 6+58+59+66+68 DNA ALLISON+probe Ql (Cvx) HPV SPECIMEN TYPE ThinPrep HPV 16 Negative (qualifier value) HPV 18 Negative (qualifier value) OTHER HIGH RISK HPV Negative (qualifier value) HPV types 31,33,35,39,45,52,56 ,58,59,66 and 68 DNA were undetectable. Normal [facility] Comment on above: Performed By: #### 7 1431-1 #### [facility] ([id number]) [address] [facility], FIRST FLOOR [place], [place] [id number] [place] [address] LAB ([id number]) [address] [place] [address], [address] [place] [address] POCT , urineon Beta HCG ( test) Ql (U) Negative [facility] Interpretation and review of laboratory results Normal [facility] Vital Signs Date Time Vital Sign Value Performing Clinician Facility 11-03-2024 13:18-0400 Body mass index (BMI) [Ratio] 36.68 kg/m2 Tiffany Ornelas MD Work Phone: [facility] 11-03-2024 13:18-0400 Body weight 96.98 kg Tiffany Ornelas MD Work Phone: [facility] 10-30-2024 11:15-0400 Body height 162.6 cm Angela Gardner MD Work Phone: [facility] 10-30-2024 11:15-0400 Body mass index (BMI) [Ratio] 37.13 kg/m2 Angela Gardner MD Work Phone: [facility] 10-30-2024 11:15-0400 Body weight 98.16 kg Angela Gardner MD Work Phone: [facility] 10-30-2024 11:15-0400 Diastolic blood pressure 82 mm[Hg] Angela Gardner MD Work Phone: [facility] 10-30-2024 11:15-0400 Heart rate 91 /min Angela Gardner MD Work Phone: [facility] 10-30-2024 11:15-0400 Systolic blood pressure 122 mm[Hg] Angela Gardner MD Work Phone: [facility] 10-23-2024 14:04-0400 Diastolic blood pressure 64 mm[Hg] [address] 10-23-2024 14:04-0400 Heart rate 88 /min [address] 10-23-2024 14:04-0400 Systolic blood pressure 132 mm[Hg] [address] 10-19-2024 14:01-0400 Body mass index (BMI) [Ratio] 36.03 kg/m2 Rain Lafyatis DO Work Phone: [facility] 10-19-2024 14:01-0400 Body weight 95.25 kg Rain Lafyatis DO Work Phone: [facility] 10-19-2024 14:01-0400 Diastolic blood pressure 68 mm[Hg] Rain Lafyatis DO Work Phone: [facility] 10-19-2024 14:01-0400 Systolic blood pressure 122 mm[Hg] Rain Lafyatis DO Work Phone: [facility] 10-17-2024 14:37-0400 Body mass index (BMI) [Ratio] 36.05 kg/m2 Jocy Ruby HANNAH Work Phone: [facility] 10-17-2024 14:37-0400 Body weight 95.25 kg Jocy Ruby PA Work Phone: [facility] 10-17-2024 14:37-0400 Diastolic blood pressure 78 mm[Hg] Jocy Ruby PA Work Phone: [facility] 10-17-2024 14:37-0400 Systolic blood pressure 124 mm[Hg] Jocy Ruby PA Work Phone: [facility] 10-17-2024 12:13-0400 Body height 162.56 cm Armen Furlong DO Work Phone: [facility] 10-17-2024 12:13-0400 Body mass index (BMI) [Ratio] 35.9 kg/m2 Armen Furlong DO Work Phone: [facility] 10-17-2024 12:13-0400 Body temperature 98.9 [degF] Armen Furlong DO Work Phone: [facility] 10-17-2024 12:13-0400 Body weight 94.97 kg Armen Furlong DO Work Phone: [facility] 10-17-2024 12:13-0400 Diastolic blood pressure 82 mm[Hg] Armen Furlong DO Work Phone: [facility] 10-17-2024 12:13-0400 Heart rate 96 /min Armen Furlong DO Work Phone: [facility] 10-17-2024 12:13-0400 Respiratory rate 19 /min Armen Furlong DO Work Phone: [facility] 10-17-2024 12:13-0400 SaO2% (BldA) [Mass fraction] 98 % Armen Furlong DO Work Phone: [facility] 10-17-2024 12:13-0400 Systolic blood pressure 129 mm[Hg] Armen Furlong DO Work Phone: [facility] 10-03-2024 09:04-0400 Body height 162.6 cm Curtis Jeannine DO Work Phone: [facility] 10-03-2024 09:00-0400 Body mass index (BMI) [Ratio] 34.84 kg/m2 Curtis Jeannine DO Work Phone: [facility] 10-03-2024 09:00-0400 Body weight 92.08 kg Curtis Jeannine DO Work Phone: [facility] 10-03-2024 09:00-0400 Diastolic blood pressure 74 mm[Hg] Curtis Jeannine DO Work Phone: [facility] 10-03-2024 09:00-0400 Systolic blood pressure 122 mm[Hg] Curtis Jeannine DO Work Phone: [facility] 09-29-2024 16:29-0400 Diastolic blood pressure 72 mm[Hg] Edil Snow MD Work Phone: [facility] 09-29-2024 16:29-0400 Heart rate 83 /min Edil Snow MD Work Phone: [facility] 09-29-2024 16:29-0400 Systolic blood pressure 125 mm[Hg] Edil Snow MD Work Phone: [facility] 09-10-2024 23:35-0400 Diastolic blood pressure 73 mm[Hg] Victorino D'Abreau DO [facility] Phone: [facility] 09-10-2024 23:35-0400 Heart rate 75 /min Victorino D'Abreau DO Work Phone: [facility] 09-10-2024 23:35-0400 Systolic blood pressure 127 mm[Hg] Victorino D'Abreau DO Work Phone: [facility] 09-10-2024 22:22-0400 Body temperature 98.1 [degF] Victorino D'Abreau DO Work Phone: [facility] [employer] 09-10-2024 22:22-0400 Respiratory rate 16 /min Victorino Gallowayeau DO Work Phone: [facility] [employer] 09-10-2024 22:22-0400 SaO2% (BldA) [Mass fraction] 98 % Victorino Gustafsonu DO Work Phone: [facility] [employer] 08-30-2024 10:38-0400 Body weight 88.91 kg Jocy YOUNG Work Phone: [facility] 08-30-2024 10:38-0400 Diastolic blood pressure 74 mm[Hg] Jocy YOUNG Work Phone: [facility] 08-30-2024 10:38-0400 Systolic blood pressure 130 mm[Hg] Jocy YOUNG Work Phone: [facility] 08-14-2024 10:57-0400 Body weight 87.91 kg Curtis Jeannine DO Work Phone: [facility] 08-14-2024 10:57-0400 Diastolic blood pressure 70 mm[Hg] Curtis Jeannine DO Work Phone: [facility] 08-14-2024 10:57-0400 Systolic blood pressure 116 mm[Hg] Curtis Jeannine DO Work Phone: [facility] 08-01-2024 13:31-0400 Body weight 85.19 kg Curtis Jeannine DO Work Phone: [facility] 08-01-2024 13:31-0400 Diastolic blood pressure 70 mm[Hg] Curtis Jeannine DO Work Phone: [facility] 08-01-2024 13:31-0400 Systolic blood pressure 120 mm[Hg] Curtis Jeannine DO Work Phone: [facility] 07-28-2024 09:19-0400 Body height 162.6 cm Lyndsey Burns MD Work Phone: [facility] 07-28-2024 09:19-0400 Body mass index (BMI) [Ratio] 32.63 kg/m2 Lyndsey Burns MD Work Phone: [facility] 07-28-2024 09:19-0400 Body weight 86.27 kg Lyndsey Burns MD Work Phone: [facility] 07-28-2024 09:19-0400 Diastolic blood pressure 72 mm[Hg] Lyndsey Burns MD Work Phone: [facility] 07-28-2024 09:19-0400 Heart rate 84 /min Lyndsey Burns MD Work Phone: [facility] 07-28-2024 09:19-0400 Systolic blood pressure 115 mm[Hg] Lyndsey Burns MD Work Phone: [facility] 07-06-2024 09:09-0400 Body weight 84.73 kg Jocy YOUNG Work Phone: [facility] 07-06-2024 09:09-0400 Diastolic blood pressure 72 mm[Hg] Jocy YOUNG Work Phone: [facility] 07-06-2024 09:09-0400 Systolic blood pressure 120 mm[Hg] Jocy YOUNG Work Phone: [facility] 06-08-2024 09:41-0500 Body weight 83.83 kg Curtis Jeannine DO Work Phone: [facility] 06-08-2024 09:41-0500 Diastolic blood pressure 70 mm[Hg] Curtis Jeannine DO Work Phone: [facility] 06-08-2024 09:41-0500 Systolic blood pressure 120 mm[Hg] Curtis Jeannine DO Work Phone: [facility] 05-09-2024 14:22-0500 Body weight 86.09 kg Curtis Jeannine DO Work Phone: [facility] 05-09-2024 14:22-0500 Diastolic blood pressure 72 mm[Hg] Curtis Jeannine DO Work Phone: [facility] 05-09-2024 14:22-0500 Systolic blood pressure 118 mm[Hg] Curtis Jeannine DO Work Phone: [facility] 05-05-2024 10:32-0500 Body weight 83.52 kg Noms Nurse [facility] 05-05-2024 10:32-0500 Diastolic blood pressure 78 mm[Hg] [facility] Nurse [facility] 05-05-2024 10:32-0500 Systolic blood pressure 120 mm[Hg] [facility] Nurse [facility] 04-27-2024 20:58-0500 SaO2% (BldA) [Mass fraction] 98 % Zully Vallejo MD Work Phone: [employer] 04-27-2024 17:53-0500 Body height 162.6 cm Zully Vallejo MD Work Phone: [employer] 04-27-2024 17:53-0500 Body mass index (BMI) [Ratio] 29.18 kg/m2 Zully Vallejo MD Work Phone: [employer] 04-27-2024 17:53-0500 Body temperature 98.8 [degF] Zully Vallejo MD Work Phone: [employer] 04-27-2024 17:53-0500 Body weight 77.11 kg Zully Vallejo MD Work Phone: [employer] 04-27-2024 17:53-0500 Diastolic blood pressure 93 mm[Hg] Zully Vallejo MD Work Phone: [employer] 04-27-2024 17:53-0500 Heart rate 90 /min Zully Vallejo MD Work Phone: [employer] 04-27-2024 17:53-0500 Respiratory rate 20 /min Zully Vallejo MD Work Phone: [employer] 04-27-2024 17:53-0500 Systolic blood pressure 150 mm[Hg] Zully Vallejo MD Work Phone: [facility] 01-27-2024 09:54-0400 Body height 162.6 cm Armen Furlong DO Work Phone: [facility] [employer] 01-27-2024 09:54-0400 Body mass index (BMI) [Ratio] 28.15 kg/m2 Armen Furlong DO Work Phone: [facility] [employer] [facility] 01-27-2024 09:54-0400 Body temperature 97.7 [degF] Armen Furlong DO Work Phone: [facility] [employer] 01-27-2024 09:54-0400 Body weight 74.39 kg Armen Furlong DO Work Phone: [facility] [employer] [facility] 01-27-2024 09:54-0400 Diastolic blood pressure 72 mm[Hg] Armen Furlong DO Work Phone: [facility] [employer] [facility] 01-27-2024 09:54-0400 Heart rate 89 /min Armen Furlong DO Work Phone: [facility] [employer] 01-27-2024 09:54-0400 Respiratory rate 18 /min Armen Furlong DO Work Phone: [facility] [employer] [facility] 01-27-2024 09:54-0400 SaO2% (BldA) [Mass fraction] 99 % Armen Furlong DO Work Phone: [facility] [employer] [facility] 01-27-2024 09:54-0400 Systolic blood pressure 118 mm[Hg] Armen Furlong DO Work Phone: [facility] [employer] [facility] 10-27-2023 10:26-0400 Body height 162.6 cm Armen Furlong DO Work Phone: [facility] [employer] [facility] 10-27-2023 10:26-0400 Body mass index (BMI) [Ratio] 29.94 kg/m2 Armen Furlong DO Work Phone: [facility] 10-27-2023 10:26-0400 Body temperature 97.81 [degF] Armen Furlong DO Work Phone: [facility] 10-27-2023 10:26-0400 Body weight 79.11 kg Armen Furlong DO Work Phone: [facility] [employer] [facility] 10-27-2023 10:26-0400 Diastolic blood pressure 60 mm[Hg] Armen Furlong DO Work Phone: [facility] 10-27-2023 10:26-0400 Heart rate 71 /min Armen Furlong DO Work Phone: [facility] 10-27-2023 10:26-0400 SaO2% (BldA) [Mass fraction] 99 % Armen Furlong DO Work Phone: [facility] 10-27-2023 10:26-0400 Systolic blood pressure 100 mm[Hg] Armen Furlong DO Work Phone: [facility] 09-27-2023 10:05-0400 Body height 162.6 cm Armen Furlong DO Work Phone: [facility] 09-27-2023 10:05-0400 Body mass index (BMI) [Ratio] 30.59 kg/m2 Armen Furlong DO Work Phone: [facility] 09-27-2023 10:05-0400 Body temperature 97.81 [degF] Armen Furlong DO Work Phone: [facility] 09-27-2023 10:05-0400 Body weight 80.83 kg Armen Furlong DO Work Phone: [facility] 09-27-2023 10:05-0400 Diastolic blood pressure 62 mm[Hg] Armen Furlong DO Work Phone: [facility] 09-27-2023 10:05-0400 Heart rate 81 /min Armen Furlong DO Work Phone: [facility] 09-27-2023 10:05-0400 SaO2% (BldA) [Mass fraction] 99 % Armen Furlong DO Work Phone: [facility] 09-27-2023 10:05-0400 Systolic blood pressure 100 mm[Hg] Armen Furlong DO Work Phone: [facility] 09-01-2023 11:00-0400 Body height 162.6 cm Pmh 1 [facility] 09-01-2023 11:00-0400 Body mass index (BMI) [Ratio] 31.58 kg/m2 Pmh 1 [facility] 09-01-2023 11:00-0400 Body weight 83.46 kg Pmh 1 [facility] 08-25-2023 09:33-0400 Body height 162.6 cm Armen Furlong DO Work Phone: [facility] 08-25-2023 09:33-0400 Body mass index (BMI) [Ratio] 31.72 kg/m2 Armen Furlong DO Work Phone: [facility] 08-25-2023 09:33-0400 Body temperature 98.71 [degF] Armen Furlong DO Work Phone: [facility] 08-25-2023 09:33-0400 Body weight 83.83 kg Armen Furlong DO Work Phone: [facility] 08-25-2023 09:33-0400 Diastolic blood pressure 62 mm[Hg] Armen Furlong DO Work Phone: [facility] 08-25-2023 09:33-0400 Heart rate 89 /min Armen Furlong DO Work Phone: [facility] 08-25-2023 09:33-0400 Respiratory rate 18 /min Armen Furlong DO Work Phone: [facility] 08-25-2023 09:33-0400 SaO2% (BldA) [Mass fraction] 98 % Armen Correialong DO Work Phone: [facility] 08-25-2023 09:33-0400 Systolic blood pressure 98 mm[Hg] Armen Street DO Work Phone: [facility] 08-10-2023 09:46-0400 Body height 162.6 cm Claire Kat MD Work Phone: [facility] 08-10-2023 09:46-0400 Body mass index (BMI) [Ratio] 33.3 kg/m2 Claire Kat MD Work Phone: [facility] 08-10-2023 09:46-0400 Body weight 88 kg Claire Kat MD Work Phone: [facility] 08-10-2023 09:46-0400 Diastolic blood pressure 70 mm[Hg] Claire Kat MD Work Phone: [facility] 08-10-2023 09:46-0400 Systolic blood pressure 128 mm[Hg] Claire Kat MD Work Phone: [facility] Encounters Encounter Date Encounter Type Care Provider Facility Start: 11-14-2024 End: 11-14-2024 ambulatory RAIN SUÁREZ [facility] Start: 11-09-2024 End: 11-09-2024 Clinisync Result Encounter Curtis Jeannine DO Work Phone: [facility] Unsolicited Start: 11-09-2024 End: 11-09-2024 Clinisync Result Encounter Curtis Jeannine DO Work Phone: [facility] Unsolicited Start: 11-07-2024 End: 11-07-2024 ambulatory ANGELA GARDNER [facility] Start: 11-03-2024 End: 11-03-2024 ambulatory TIFFANY ORNELAS [facility] Start: 11-03-2024 End: 11-03-2024 Subsequent care visit Tiffany Ornelas MD Work Phone: [facility] Comment on above: GA: 34w3d Start: 11-02-2024 End: 11-02-2024 Clinisync Result Encounter Curtis Jeannine DO Work Phone: [facility] Unsolicited Start: 11-02-2024 End: 11-02-2024 Clinisync Result Encounter Curtis Jeannine DO Work Phone: [facility] Unsolicited Start: 11-01-2024 End: 11-01-2024 Clinisync Result Encounter Jocy YOUNG Work Phone: [facility] Unsolicited Start: 11-01-2024 End: 11-01-2024 Clinisync Result Encounter Jocy YOUNG Work Phone: [facility] Unsolicited Start: 10-30-2024 End: 10-30-2024 Office outpatient visit 15 minutes Angela Gardner MD Work Phone: [facility] Comment on above: Cystic fibrosis fletcher ier, antepartum (Primary Dx); Maternal care for other (suspected) abnormality and damage, gastrointestinal anomalies, not applicable or unspecified; Overweight Start: 10-30-2024 End: 10-30-2024 Orders Only Jocy Maradiaga LPN [facility] Comment on above: Supervision of high risk in third trimester (Primary Dx); Cystic fibrosis carrier, antepartum; Abnormal genetic test during ; Maternal care for other (suspected) abnormality and damage, gastrointestinal anomalies, not applicable or unspecified; Cystic fibrosis carrier; Family history of developmental delay; Family history of spina bifida Start: 10-26-2024 End: 10-27-2024 Clinisync Result Encounter Curtis Jeannine DO Work Phone: [facility] Unsolicited Start: 10-26-2024 End: 10-27-2024 Clinisync Result Encounter Curtis Jeannine DO Work Phone: [facility] Unsolicited Start: 10-24-2024 End: 10-24-2024 Telephone encounter Lyndsey Burns MD Work Phone: [facility] Start: 10-23-2024 End: 10-23-2024 ambulatory Tt Mfm Nst1 [facility] Comment on above: Cystic fibrosis fletcher ier, antepartum (Primary Dx); Supervision of high risk in third trimester; Overweight Start: 10-19-2024 End: 10-19-2024 Clinisync Result Encounter Curtis Busbyo DO Work Phone: [facility] Unsolicited Start: 10-19-2024 End: 10-19-2024 Clinisync Result Encounter Curtis Busbyo DO Work Phone: [facility] Unsolicited Start: 10-19-2024 End: 10-19-2024 ambulatory Rain Butch Sandovalаннаkristine DO Work Phone: [facility] Comment on above: GA: 32w2d Start: 10-17-2024 End: 10-17-2024 flow sheet Jcoy YOUNG Work Phone: [facility] Comment on above: Third trimester preg melissa (HHS-HCC); 32 weeks gestation of ([facility]); H/O LEEP; Cystic fibrosis carrier, antepartum (HHS-HCC); HSV infection Start: 10-17-2024 End: 10-17-2024 Bamboo flowsheet Jocy YOUNG Work Phone: [facility] Start: 10-17-2024 End: 10-17-2024 Bamboo flowsheet Joyc YOUNG Work Phone: [facility] Start: 10-17-2024 End: 10-17-[address] DO Work Phone: [facility] Work Phone: Start: 10-17-2024 End: 10-17-2024 Patient encounter procedure Esther Bunch [facility] Work Phone: Start: 10-13-2024 End: 10-13-2024 Orders Only Miriam Joseph RN [facility] Comment on above: Abnormal genetic jono t during (Primary Dx); Maternal care for other (suspected) abnormality and damage, gastrointestinal anomalies, not applicable or unspecified; Cystic fibrosis carrier Start: 10-12-2024 End: 10-12-2024 ambulatory [facility] Start: 10-12-2024 End: 10-13-2024 Clinisync Result Encounter Curtis Jeannine DO Work Phone: [facility] Unsolicited Start: 10-12-2024 End: 10-13-2024 Clinisync Result Encounter Curtis Jeannine DO Work Phone: [facility] Unsolicited Start: 10-10-2024 End: 10-10-2024 Chart abstracting Lyric Sánchez RN [facility] Start: 10-05-2024 End: 10-05-2024 ambulatory [facility] Start: 10-04-2024 End: 10-04-2024 Clinisync Result Encounter Curtis Jeannine DO Work Phone: [facility] External Department Unsolicited Start: 10-04-2024 End: 10-04-2024 Clinisync Result Encounter Curtis Jeannine DO Work Phone: [facility] External [facility] Unsolicited Start: 10-03-2024 End: 10-03-2024 flow sheet Curtis Jeannine DO Work Phone: [facility] Comment on above: Third trimester preg melissa (HHS-HCC); Cystic fibrosis carrier, antepartum ([facility]); Moderate episode of recurrent major depressive disorder (HCC); History of loop electrosurgical excision procedure (LEEP) of cervix affecting , antepartum (HHS-HCC); HSV infection; 30 weeks gestation of (HHS-HCC); Maternal care for other (suspected) abnormality and damage, gastrointestinal anomalies, not applicable or unspecified ([facility]) Start: 09-29-2024 End: 09-29-2024 ambulatory EDIL SNOW [facility] Start: 09-29-2024 End: 09-29-2024 Office outpatient visit 25 minutes Edil Snow MD Work Phone: Maternal- Medicine at [facility] Comment on above: 29 weeks gestation o f (Primary Dx); Cystic fibrosis carrier; Maternal care for other (suspected) abnormality and damage, gastrointestinal anomalies, not applicable or unspecified Start: 09-29-2024 End: 09-29-2024 ambulatory LYNDSEY VALDERRAMAHID [facility] Start: 09-25-2024 End: 09-25-2024 Clinisync Result Encounter [...] above: Anxiety, generalized (Primary Dx); Second trimester ([facility]); 27 weeks gestation of ([facility]); Cystic fibrosis carrier, antepartum ([facility]) Start: 09-18-2024 End: 09-18-2024 Bamboo flowsheet Curtis Jeannine DO Work Phone: [facility] Start: 09-18-2024 End: 09-18-2024 Bamboo flowsheet Curtis Jeannine DO Work Phone: [facility] Start: 09-15-2024 End: 09-15-2024 Telephone encounter Miriam Joseph RN [facility] at [facility] Start: 09-10-2024 End: 09-11-2024 [facility] Start: 09-10-2024 End: 09-11-2024 Subsequent hospital visit by physician Victorino Christie DO Work Phone: [facility] Labor and Delivery Start: 09-10-2024 Emergency department patient visit [facility] Start: 09-07-2024 End: 09-07-2024 Office outpatient new 45 minutes Rashida Alvarez MD Work Phone: [facility] DAVEY [facility] Comment on above: Cystic fibrosis fletcher ier (Primary Dx); Encounter for consultation Start: 09-07-2024 End: 09-07-2024 Orders Only Miriam Joseph RN Maternal- Medicine at [facility] Comment on above: [...] gestation of Start: 08-25-2024 End: 08-25-2024 ambulatory [facility]eto [facility] Start: 08-18-2024 End: 08-18-2024 Orders Only Barbra Samuel RN [facility]- Medicine at [facility] Start: 08-17-2024 End: 08-18-2024 Telephone encounter Rachel Rodriguez [facility] Work Phone: Maternal- Medicine at [facility] Start: 08-14-2024 End: 08-14-2024 Patient encounter procedure Curtis Jeannine DO Work Phone: [facility] Comment on above: Cystic fibrosis fletcher ier, antepartum; LGSIL on Pap smear of cervix Start: 08-01-2024 End: 08-01-2024 Bamboo flowsheet Cutris Jeannine DO Work Phone: [facility] [...] Burns MD Work Phone: [facility]- Medicine at [facility] Comment on above: Cystic fibrosis fletcher ier (Primary Dx) Start: 07-28-2024 End: 07-28-2024 Orders Only Miriam Joseph RN M[facility]- Medicine at [facility] Comment on above: Cystic fibrosis fletcher ier (Primary Dx); Abnormal genetic test during Start: 07-12-2024 End: 07-12-2024 Telephone encounter Rachel Rodriguez [facility] Work Phone: Maternal- Medicine at [facility] Start: 07-11-2024 End: 07-11-2024 Bamboo flowsheet Emi Bronson [facility] Work Phone: [facility] Start: 07-11-2024 End: 07-11-2024 Bamboo flowsheet Emi Bronson [facility] Work Phone: [facility] Start: 07-11-2024 End: 07-11-2024 Clinical Support Emi Bronson [facility] Work Phone: [facility] Comment on above: Moderate episode of recurrent major depressive disorder (CMS/HCC); ALICIA (generalized anxiety disorder) (CMS/HCC) Start: 07-06-2024 End: 07-06-2024 Bamboo flowsheet Jocy YOUNG Work Phone: [facility] Start: 07-06-2024 End: 07-10-2024 Bamboo flowsheet Jocy YOUNG Work Phone: [facility] OB Start: 07-06-2024 End: 07-10-2024 Clinisync Result Encounter Jocy YOUNG Work Phone: [facility] External Department Unsolicited Start: 07-06-2024 End: 07-07-2024 External Result Encounter Jocy YOUNG Work Phone: [facility] External Department Unsolicited Start: 07-06-2024 End: 07-06-2024 Patient encounter procedure Jocy YOUNG Work Phone: [facility] Healthcare Start: 07-06-2024 End: 07-06-2024 Periodic preventive med est patient 18-39 yrs Jocy YOUNG Work Phone: [facility] OB Comment on above: 17 weeks gestation o f ; Second trimester ; Well woman exam with routine gynecological exam; Exposure to STD; Vaginal discharge Start: 07-05-2024 End: 07-05-2024 Clinisync Result Encounter Curtis Jeannine DO Work Phone: [facility] External Department Unsolicited Start: 07-05-2024 End: 07-05-2024 Clinisync Result Encounter Curtis Jeannine DO Work Phone: [facility] External Department Unsolicited Start: 06-20-2024 End: 06-20-2024 Telephone encounter Lara Lovelace [facility] Start: 06-20-2024 End: 06-20-2024 Telemedicine consultation with patient Rachel Rodriguez [facility] Work Phone: [facility]- Medicine at [facility] Comment on above: Cystic fibrosis fletcher ier (Primary Dx); Abnormal genetic test during ; Family history of developmental delay; Family history of spina bifida Start: 06-20-2024 End: 06-20-2024 ambulatory CURTIS R JEANNINE [facility] Start: 06-16-2024 End: 06-16-2024 Chart abstracting Scanning Provider External [facility] Start: 06-08-2024 End: 06-08-2024 Bamboo [...] 05-24-2024 End: 05-24-2024 Clinical Support Emi Bronson [facility] Work Phone: [facility] Comment on above: Moderate episode [...] Bamboo flowsheet Curtis Jeannine DO Work Phone: [facility] OB Start: 05-09-2024 End: 05-09-2024 flow sheet Curtis Jeannine DO Work Phone: [facility] OB Comment on above: Missed menses; 9 weeks gestation of ; H/O LEEP Start: 05-05-2024 End: 05-05-2024 Office outpatient visit 5 minutes [facility] Ob Jeannine Nurse [facility] OB Comment on above: GA: 8w3d Start: 05-03-2024 End: 05-03-2024 Telephone encounter Armenalicia Correiaandra DO Work Phone: [facility] Start: 05-02-2024 End: 05-02-2024 Bamboo flowsheet Emi Bronson [facility] Work Phone: [facility] Start: 05-02-2024 End: 05-02-2024 Bamboo flowsheet Emi Bronson [facility] Work Phone: [facility] Start: 05-02-2024 End: 05-02-2024 Clinical Support Emi Bronson [facility] Work Phone: [facility] Comment on above: Moderate episode of recurrent major depressive disorder (CMS/HCC); ALICIA (generalized anxiety disorder) (CMS/HCC) Start: 04-27-2024 End: 04-27-2024 Emergency department patient visit Zully Vallejo MD Work Phone: [facility] Emergency Department Comment on above: Abdominal cramping ( Primary Dx); Arm contusion, right, initial encounter Start: 04-18-2024 End: 04-18-2024 Orders Only Aicha Richard LPN [facility] Comment on above: Positive t est (Primary Dx) Start: 01-27-2024 End: 01-27-2024 Office outpatient visit 15 minutes Armen Correiaandra DO Work Phone: [facility] - [facility] Medicine Comment on above: Current episode of m ajor depressive disorder without prior episode, unspecified depression episode severity (Primary Dx); Overweight Start: 01-27-2024 End: 01-27-2024 ambulatory [facility] Start: 01-21-2024 End: 01-21-2024 Refill [facility] Work Phone: [facility] - [facility] Start: 12-13-2023 End: 12-13-2023 Bamboo [employer] Emi Davisdaro LPCC Work Phone: [facility] Start: 12-13-2023 End: 12-13-2023 Bamboo [employer] Emi Munson Aiyana LPCC Work Phone: [facility] Start: 12-13-2023 End: 12-13-2023 Clinical Support Emi Jerryro LPCC Work Phone: [facility] Comment on above: Moderate episode of recurrent major depressive disorder (HCC) (CMS/HCC); ALICIA (generalized anxiety disorder) (CMS/HCC) Start: 11-29-2023 End: 11-29-2023 [employer]amboo [employer] Emi Davisdaro LPCC Work Phone: [facility] Start: 11-29-2023 End: 11-29-2023 [employer] Emi Munson Aiyana LPCC Work Phone: [facility] Start: 11-29-2023 End: 11-29-2023 Clinical Support Emi Bronson LPCC Work Phone: [facility] Comment on above: Moderate episode of recurrent major depressive disorder (HCC) (CMS/HCC); ALICIA (generalized anxiety disorder) (CMS/HCC) Start: 10-27-2023 End: 10-27-2023 ambulatory [facility] Start: 10-27-2023 End: 10-27-2023 Office outpatient visit [address] DO Work Phone: [facility] - [facility] Comment on above: Overweight (Primary Dx); Anxiety; Depression, unspecified depression type; Onychomycosis Start: 10-18-2023 End: 10-18-[address] DO Work Phone: [facility] Start: 10-03-2023 End: 10-04-[address] DO Work Phone: [facility] Comment on above: Class 1 obesity due to excess calories with body mass index (BMI) of 31.0 to 31.9 in adult, unspecified whether serious comorbidity present Start: 09-27-2023 End: 09-27-2023 Patient encounter status Armen Street DO Work Phone: [facility] [employer] Work Phone: Start: 09-27-2023 End: 09-27-2023 Periodic preventive med est patient 18-[address] DO Work Phone: [facility] Comment on above: Well adult health ch aashish (Primary Dx); Class 1 obesity due to excess calories without serious comorbidity with body mass index (BMI) of 31.0 to 31.9 in adult; Rectal bleeding; Onychomycosis; Benign skin lesion Start: 09-27-2023 End: 09-27-2023 ambulatory [facility] Start: 09-27-2023 Encounter for jazlyn l adult medical examination without abnormal findings [facility] Start: 09-03-2023 End: 09-04-2023 Evaluation and [facility] Start: 09-02-2023 End: 09-02-2023 ambulatory [facility] Pat Phone Call Provider [address] [facility] - Pre Admit Start: 09-01-2023 End: 09-01-[address] [facility] Start: 08-25-2023 End: 08-25-2023 Office outpatient new [address] DO Work Phone: [facility] - [facility] Comment on above: Rectal bleeding (Lucita sangeeta Dx); Mild major depression (CMS-HCC); Class 1 obesity due to excess calories with body mass index (BMI) of 31.0 to 31.9 in adult, unspecified whether serious comorbidity present Start: 08-10-2023 End: 08-10-2023 Encounter for gynecological examination (general) (routine) without abnormal findings Claire Kat MD Work Phone: [facility] Start: 08-10-2023 End: 08-10-2023 Initial preventive medicine new pt age 18-39yrs Claire Kat MD Work Phone: [facility] Comment on above: Encounter for gyneco logical examination without abnormal finding (Primary Dx); Screening for STD (sexually transmitted disease); Pap smear, as part of routine gynecological examination; Encounter for initial prescription of vaginal ring hormonal contraceptive Start: 08-10-2023 End: 08-10-2023 Patient encounter status Claire Kat MD Work Phone: [facility] Start: 08-10-2023 End: 08-10-[address] [facility] Rick KAT [facility] Start: 08-10-2023 Encounter for gynecological examination (general) (routine) without abnormal findings [facility] Procedures Date Procedure Procedure Detail Performing Clinician Start: 11-09-2024 US OB BPP W NON-STRESS Curtis Jeannine DO Work Phone: Start: 11-03-2024 Iadna chlamydia trachomatis amplified probe tq Tiffany Ornelas MD Work Phone: Start: 11-02-2024 US OB BPP W NON-STRESS Curtis Jeannine DO Work Phone: Start: 11-01-2024 US OB CERVICAL LENGTH A simin YOUNG Work Phone: Start: 10-26-2024 US OB BPP W NON-STRESS Curtis Jeannine DO Work Phone: Start: 10-24-2024 nonstress test Hernandez damon Driver DO Work Phone: Start: 10-19-2024 US OB BPP W NON-STRESS Curtis Jeannine DO Work Phone: Start: 10-18-2024 Adult depression scr eening assessment Rain Iverson DO Work Phone: Start: 10-17-2024 Quick Strep (POC) Celio Street DO Work Phone: Start: 10-12-2024 US OB [...] 60 yrs+ (1 - 1-dose 75+ series) [facility] Start: 11-03-2034 DTaP,Tdap and Td Vaccines (3 - Td or Tdap) DTaP,Tdap and Td Vaccines (3 - Td or Tdap) [facility] Start: 08-16-2028 DTaP,Tdap and Td Vaccines (2 - Td or Tdap) DTaP,Tdap and Td Vaccines (2 - Td or Tdap) [facility] Start: 08-16-2028 DTaP/Tdap/Td vaccine (2 - Td or Tdap) DTaP/Tdap/Td vaccine (2 - Td or Tdap) [facility] Start: 07-07-2027 Screening for malign ant neoplasm of cervix Pap Smear [facility] Start: 08-09-2026 Screening for malign ant neoplasm of cervix Pap Smear [facility] Start: 11-03-2025 Adult BMI Screening Adult BMI Screen ing [facility] Start: 11-03-2025 Tobacco Screening Tobacco Screening [facility] Start: 10-30-2025 Adult BMI Screening Adult BMI Screen ing [facility] Start: 10-30-2025 Tobacco Screening Tobacco Screening [facility] Start: 10-19-2025 Adult BMI Screening Adult BMI Screen ing [facility] Start: 10-19-2025 Tobacco Screening Tobacco Screening [facility] Start: 10-18-2025 Depression Screening Depression Scre ening [facility] Start: 10-13-2025 End: 10-13-2025 US MFM with or without consult US MFM with or without consult Imaging Routine Abnormal genetic test during Maternal care for other (suspected) abnormality and damage, gastrointestinal anomalies, not applicable or unspecified Cystic fibrosis carrier Expected: 10/13/2025 (Approximate), Expires: 10/13/2025 [facility] Work Phone: Comment on above: Expected: 10/13/2025 (Approximate), Expires: 10/13/2025 Start: 09-30-2025 Tobacco Screening Tobacco Screening [facility] Start: 09-07-2025 End: 09-07-2025 US MFM with or without consult US MFM with or without consult Imaging Routine Cystic fibrosis carrier Abnormal genetic test during Expected: 09/07/2025 (Approximate), Expires: 09/07/2025 [facility] Work Phone: Comment on above: Expected: 09/07/2025 (Approximate), Expires: 09/07/2025 Start: 07-28-2025 Adult BMI Screening Adult BMI Screen ing [facility] Start: 07-28-2025 Tobacco Screening Tobacco Screening [facility] Start: 07-28-2025 End: 07-28-2025 US MFM with or without consult US MFM with or without consult Imaging Routine Cystic fibrosis carrier Abnormal genetic test during Expected: 07/28/2025 (Approximate), Expires: 07/28/2025 [facility] Work Phone: Comment on above: Expected: 07/28/2025 (Approximate), Expires: 07/28/2025 Start: 02-24-2025 Tobacco Counseling Tobacco Counselin g [facility] Start: 01-26-2025 Adult BMI Screening Adult BMI Screen ing [facility] Start: 01-26-2025 Tobacco Screening Tobacco Screening [facility] Start: 12-04-2024 Influenza vaccination Influenza Vacc ine [facility] Start: 11-28-2024 End: 11-28-[address] [facility] Start: 11-21-2024 End: 11-21-2024 Patient encounter procedure 11/21/2024 2:[address] [facility] [address] [place] [phone] [facility] Start: 11-17-2024 End: 11-17-2024 Patient encounter procedure 11/17/2024 2:30 PM EDT Routine [facility] [address] [id number] Gemma Horne MD [address] [place] [address], [place] [address] [facility] Start: 11-14-2024 End: 11-14-2024 Patient encounter procedure 11/14/2024 3:[address] [facility] [address] [place] [phone] [facility] Start: 11-07-2024 End: 11-07-2024 Patient encounter procedure 11/07/2024 3:[address] [facility] [address] [facility] [place] [phone] Angela Gardner MD [address] [place] [address] [facility] Start: 11-06-2024 End: 11-06-2024 Patient encounter procedure 11/06/2024 11:[address] [facility] [address] [place] [phone] [facility] Start: 11-03-2024 Influenza vaccination Flu vaccine (S alisha Ended) [facility] Start: 11-03-2024 End: 11-03-2024 Patient encounter procedure 11/03/2024 1:00 PM EDT Routine [facility] [address] [place] [phone] Tiffany Ornelas MD [address] [place] [phone] [facility] Start: 11-01-2024 End: 01-17-2025 US Pelvis transvaginal US OB transvaginal Imaging Routine Third trimester ([facility]) Expected: 11/01/2024, Expires: 01/17/2025 [facility] Work Phone: Comment on above: Expected: 11/01/2024 , Expires: 01/17/2025 Start: 10-30-2024 End: 10-30-2025 US MFM with or without consult US MFM with or without consult Imaging Routine Supervision of high risk in third trimester Cystic fibrosis carrier, antepartum Abnormal genetic test during Maternal care for other (suspected) abnormality and damage, gastrointestinal anomalies, not applicable or unspecified Cystic fibrosis carrier Family history of developmental delay Family history of spina bifida Expected: 10/30/2024, Expires: 10/30/2025 [facility] Work Phone: Comment on above: Expected: 10/30/2024 , Expires: 10/30/2025 Start: 10-30-2024 End: 10-30-[address] [facility] Start: 10-30-2024 End: 10-30-2024 ambulatory 10/30/2024 9:45 AM EDT Support Visit Maternal- Medicine at [facility] [address] [place] [phone] [facility] Start: 10-26-2024 Adult BMI Screening Adult BMI Screen ing [facility] Start: 10-26-2024 [facility] Start: 10-26-2024 Tobacco Screening Tobacco Screening [facility] Start: 10-23-2024 End: 10-23-2024 Patient encounter procedure 10/23/2024 1:[address] [facility] [address] [place] [phone] [facility] Start: 10-19-2024 End: 10-19-2024 Patient encounter procedure 10/19/2024 3:[address] [facility] [address] [place] [address] [facility] Start: 10-19-2024 End: 10-19-2024 ambulatory 10/19/2024 2:00 PM EDT Initial [facility] [address] [place] [address] Rain Iverson DO [address] [place] [address] [facility] Start: 10-17-2024 End: 10-17-2024 Patient encounter procedure [facility] Comment on above: Arrived Start: 10-12-2024 End: 10-12-2024 Patient encounter procedure 10/12/2024 3:[address] [facility] [address] [place] [phone] [facility] Start: 10-05-2024 End: 10-05-2024 Patient encounter procedure 10/05/2024 3:[address] [facility] [address] [place] [phone] [facility] Start: 10-03-2024 End: 04-05-2025 US biophysical profile w non stress test US biophysical profile w non stress test Imaging Routine Cystic fibrosis carrier, antepartum ([facility]) Maternal care for other (suspected) abnormality and damage, gastrointestinal anomalies, not applicable or unspecified ([facility]) Expected: 10/03/2024 (Approximate), Expires: 04/05/2025 [facility] Work Phone: Comment on above: Expected: 10/03/2024 (Approximate), Expires: 04/05/2025 Start: 10-03-2024 End: 10-03-2024 Patient encounter procedure 10/03/2024 1:40 PM EDT Routine [facility] [address] [address] Curtis Paez DO [address] [place] [address] [facility] Start: 09-29-2024 End: 09-29-2024 Patient encounter procedure 09/29/2024 3:[address] [facility] [address] [place] [phone] Lyndsey Burns MD [address] [place] [address] [facility] Start: 09-26-2024 Adult BMI Screening Adult BMI Screen ing [facility] Start: 09-26-2024 Depression Screening Depression Scre ening [facility] Start: 09-26-2024 Tobacco Screening Tobacco Screening [facility] Start: 09-18-2024 End: 09-18-2024 Patient encounter procedure 09/18/2024 3:40 PM EDT Routine [facility] [address] [place] [address] Curtis Paez DO [address] [place], [place] [id number] Arrived [facility] Comment on above: Arrived Start: 09-18-2024 End: 01-18-2025 US for US OB follow up transabdominal approach Imaging Routine Cystic fibrosis carrier, antepartum ([facility]) Expected: 09/18/2024 (Approximate), Expires: 01/18/2025 [facility] Work Phone: Comment on above: Expected: 09/18/2024 (Approximate), Expires: 01/18/2025 Start: 09-02-2024 Adult BMI Screening Adult BMI Screen ing [facility] Start: 09-02-2024 Tobacco Screening Tobacco Screening [facility] Start: 08-30-2024 End: 08-30-2024 Patient encounter procedure 08/30/2024 9:50 AM EDT Routine [facility] [address] [place] [address] Jocy Ruby PA [address] [place], [place] [id number] [facility] Start: 08-25-2024 End: 08-25-2024 Patient encounter procedure 08/25/2024 9:45 AM EDT Appointment Maternal [place] [address] [facility] [place] Start: 08-24-2024 Adult BMI Screening Adult BMI Screen ing [facility] Start: 08-24-2024 Depression Screening Depression Scre ening [facility] Start: 08-24-2024 Tobacco Screening Tobacco Screening [facility] Start: 08-10-2024 End: 08-10-2024 Clinical Support 08/10/2024 11:00 AM EDT Clinical Support [facility] [address] [place] [address] Emi Bronson, [facility] [address] [place] [address] [facility] [facility] Start: 08-09-2024 Adult BMI Follow Up Plan Adult BMI Follow Up Plan [facility] Start: 08-09-2024 Adult BMI Screening Adult BMI Screen ing [facility] Start: 08-09-2024 Depression Screening Depression Scre ening [facility] Start: 08-07-2024 End: 08-07-2024 Patient encounter procedure 08/07/2024 11:30 AM EDT [facility] [address] [place] [phone] Curtis Paez, DO [address] [place] [address] [facility] Start: 08-01-2024 End: 08-01-2025 CBC panel - Blood by Automated count CBC Lab Routine Diabetes mellitus screening Expected: 08/01/2024 (Approximate), Expires: 08/01/2025 [facility] Comment on above: Expected: 08/01/2024 (Approximate), Expires: 08/01/2025 Start: 08-01-2024 End: 08-01-2025 Measurement of glucose 1 hour after glucose challenge for glucose tolerance test Glucose tolerance, 1 hour Lab Routine Diabetes mellitus screening Expected: 08/01/2024 (Approximate), Expires: 08/01/2025 [facility] Comment on above: Expected: 08/01/2024 (Approximate), Expires: 08/01/2025 Start: 08-01-2024 End: 08-01-2024 Patient encounter procedure 08/01/2024 1:20 PM EDT Routine [facility] [address] [place] [address] Curtis Paez DO [address] [facility] [place] [address] [facility] Start: 07-28-2024 End: 07-28-[address] [facility] Start: 07-11-2024 End: 07-11-2024 Clinical Support 07/11/2024 12:00 PM EDT Clinical Support [facility] [address] [place] [address] Emi Bronson, [facility] [address] [place] [address] [facility] Start: 07-06-2024 End: 08-05-2024 Alpha fetoprotein, maternal Alpha fetoprotein, maternal Lab Routine 17 weeks gestation of Second trimester Expected: 07/06/2024 (Approximate), Expires: 08/05/2024 [facility] Comment on above: Expected: 07/06/2024 (Approximate), Expires: 08/05/2024 Start: 07-06-2024 End: 07-06-2024 Patient encounter procedure [facility] Comment on above: Arrived Start: 06-20-2024 End: 06-20-2024 Clinical Support [facility] Start: 06-08-2024 End: 06-08-2025 US Pelvis transvaginal US OB transvaginal Imaging Routine 13 weeks gestation of Second trimester History of loop electrosurgical excision procedure (LEEP) of cervix affecting , antepartum Expected: 06/08/2024, Expires: 06/08/2025 [facility] Work Phone: Comment on above: Expected: 06/08/2024 , Expires: 06/08/2025 Start: 06-08-2024 End: 06-08-2024 Patient encounter procedure 06/08/2024 9:20 AM EST Routine [facility] [address] [facility] [place] [address] Curtis Paez DO [address] [facility] [place] [address] [facility] Start: 05-24-2024 End: 05-24-2024 Clinical Support 05/24/2024 10:00 AM EST Clinical Support [facility] [address] [place] [phone] [facility] [address] [place] [address] [facility] Start: 05-09-2024 End: 05-09-2024 Patient encounter procedure [facility] Comment on above: Arrived Start: 05-09-2024 End: 05-09-2025 US Pelvis transvaginal US OB transvaginal Imaging Routine H/O LEEP Expected: 05/09/2024, Expires: 05/09/2025 [facility] Comment on above: Expected: 05/09/2024 , Expires: 05/09/2025 Start: 05-05-2024 End: 05-05-2025 ABO/Rh ABO/Rh Lab Routine Missed menses , unspecified gestational age Expected: 05/05/2024 (Approximate), Expires: 05/05/2025 [facility] Comment on above: Expected: 05/05/2024 (Approximate), Expires: 05/05/2025 Start: 05-05-2024 End: 05-05-2025 Blood type and Indirect antibody screen panel - Blood Type and screen Lab Routine Missed menses , unspecified gestational age Expected: 05/05/2024 (Approximate), Expires: 05/05/2025 [facility] Work Phone: Comment on above: [...] EST Initial [facility] [address] [facility] [place] [address] [facility] Start: 05-05-2024 End: 05-05-2024 Professional / ancillary services management 05/05/2024 9:30 AM EST Ancillary Procedure [facility] [address] [place] [address] [facility] Start: 05-03-2024 End: 05-03-2024 Patient encounter procedure 05/03/2024 10:30 AM EST Office Visit [facility] - Family Medicine [address] [place] [address], [address], [facility] [place] [address] [facility] Start: 05-02-2024 End: 05-02-2024 Telemedicine consultation with patient 05/02/2024 10:45 AM EST Telemedicine [facility] Obstetrics/Gynecology [address] [place] [phone] Angela Monson, CHEF & OWNER-NEGATIVE CHECKER [address] [facility] [address] [facility] Obstetrics/[facility]necolo gy Start: 01-27-2024 End: 01-27-2024 Patient encounter procedure 01/27/2024 10:00 AM EDT [facility] [address] [place] [phone] [address] DO [address], [facility] [place] [address] [facility] Internal Medicine - Family Medicine Start: 12-27-2023 End: 12-27-2023 Clinical Support 12/27/2023 10:00 AM EDT Clinical Support [facility] [address] [place] [address] Emi Bronosn, [facility] [address] [place] [address] [facility] Start: 12-13-2023 End: 12-13-2023 Clinical Support 12/13/2023 11:00 AM EDT Clinical Support [facility] [address] [place] [address] Emi Bronson, [facility] [address] [place] [address] [facility] Start: 12-05-2023 COVID-19 Vaccine ( season) COVID-19 Vaccine ( season) [facility] Start: 12-05-2023 COVID-19 Vaccine ( season) COVID-19 Vaccine ( season) [facility] Start: 12-05-2023 Influenza vaccination Influenza Vacc ine [facility] Start: 11-04-2023 Influenza vaccination Flu vaccine (# 1) [facility] Start: 10-28-2023 End: 10-28-2023 Patient encounter procedure 10/28/2023 11:00 AM EDT [facility] [address] [place] [address], DO [address] [place] [address] [facility] Start: 10-27-2023 End: 10-27-2023 Patient encounter procedure 10/27/2023 10:15 AM EDT Office Visit [facility] Internal [facility] [address] [place] [address], DO [address] [place] [address] [facility] Start: 09-27-2023 End: 09-27-2023 Patient encounter procedure 09/27/2023 10:00 AM EDT Office Visit [facility] [address] [place] [address], DO [address] [place] [address] [facility] Start: 09-03-2023 End: 09-03-2023 Admission to same day surgery center 09/03/2023 1:30 PM EDT - 09/03/2023 2:[address] [facility] [address] [place] [address] Haja Osullivan, DO [address] [place] [address] COLONOSCOPY DIAGNOSTIC / SCREENING [05281 (CPT )] [facility] Comment on above: COLONOSCOPY DIAGNOST IC / SCREENING [33206 (CPT )] Start: 09-03-2023 End: 09-03-2023 Colonoscopy flx dx w/collj spec when pfrmd COLONOSCOPY DIAGNOSTIC / SCREENING rectal bleeding 09/03/2023 1:30 PM EDT [facility] Start: 09-03-2023 Subsequent hospital visit by physician 09/03/2023 1:30 PM EDT Hospital Encounter [facility] [address] [place] [address] Haja Osullivan, DO [address] [facility] [place] [address] [facility] Start: 09-02-2023 End: 09-02-2023 ambulatory 09/02/2023 2:00 PM EDT Support Visit [facility] Pre Admit [address] [place] [address] [facility] Start: 08-25-2023 End: 08-25-2023 Patient encounter procedure 08/25/2023 9:20 AM EDT [facility] [address] [facility] [address], DO [address] [facility] [place] [address] [facility] Start: 08-01-2023 Screening for malign ant neoplasm of cervix [facility] Start: 2014 Screening for malign ant neoplasm of cervix Pap smear [facility] Start: 2012 DTaP,Tdap and Td Vaccines (1 - Tdap) DTaP,Tdap and Td Vaccines (1 - Tdap) [facility] Start: 2012 Hepatitis B vaccine (1 of 3 - 19+ 3-dose series) Hepatitis B vaccine (1 of 3 - 19+ 3-dose series) [facility] Start: 2012 Pneumococcal 0-49 ye ars Vaccine (1 of 2 - PCV) Pneumococcal 0-49 years Vaccine (1 of 2 - PCV) [facility] Start: 08-01-2011 Adult BMI Follow Up Plan Adult BMI Follow Up Plan [facility] Start: 08-01-2011 Hepatitis C screening Hepatitis C sc reen [facility] Start: 2008 HIV screening HIV screen [facility] Start: 2006 Varicella vaccine (1 of 2 - 13+ 2-dose series) Varicella vaccine (1 of 2 - 13+ 2-dose series) [facility] Start: 2005 Depression Screen Depression Screen [facility] Start: 2005 Tobacco Screening Tobacco Screening [facility] Start: 08-01-1999 Pneumococcal 0-64 ye ars Vaccine (1 of 2 - PCV) Pneumococcal 0-64 years Vaccine (1 of 2 - PCV) [facility] Bacteria identified in Urine by Culture Urine culture Microbiology Routine Missed menses Ordered: 05/05/2024 [facility] Comment on above: Ordered: 05/05/2024 End: 09-26-2024 CBC panel - Blood by Automated count CBC Lab Routine Rectal bleeding 1 Occurrences starting 09/27/2023 until 09/26/2024 [facility] Comment on above: 1 Occurrences starti ng 09/27/2023 until 09/26/2024 CBC W Auto Different ial panel - Blood CBC and differential Lab Routine Missed menses , unspecified gestational age Ordered: 05/05/2024 [facility] Comment on above: Ordered: 05/05/2024 CHLAMYDIA TRACHOMATI S (GENITO/STI) CHLAMYDIA TRACHOMATIS (GENITO/STI) Lab Routine Exposure to STD Ordered: 07/06/2024 [facility] Comment on above: Ordered: 07/06/2024 CHLAMYDIA TRACHOMATI S (GENITO/STI) CHLAMYDIA TRACHOMATIS (GENITO/STI) Lab Routine Chlamydia trachomatis infection 21 weeks gestation of Second trimester Ordered: 08/01/2024 [facility] Comment on above: Ordered: 08/01/2024 End: 08-09-2024 Chlamydia/GC by PCR ThinPrep fluid Chlamydia/GC by PCR ThinPrep fluid Microbiology Routine Pap smear, as part of routine gynecological examination 1 Occurrences starting 08/10/2023 until 08/09/2024 [facility] Comment on above: 1 Occurrences starti ng 08/10/2023 until 08/09/2024 End: 08-24-2024 Colonoscopy Colonoscopy GI Routine Rectal bleeding 1 Occurrences starting 08/25/2023 until 08/24/2024 [facility]: Comment on above: 1 Occurrences starti ng 08/25/2023 until 08/24/2024 End: 09-26-2024 Comprehensive metabolic 2000 panel - Serum or Plasma Comprehensive metabolic panel Lab Routine Well adult health check 1 Occurrences starting 09/27/2023 until 09/26/2024 [facility]: Comment on above: 1 Occurrences starti ng 09/27/2023 until 09/26/2024 Cytology Cervical or vaginal smear or scraping study Pap Smear Pathology and Cytology Routine Well woman exam with routine gynecological exam Ordered: 07/06/2024 [facility] Comment on above: Ordered: 07/06/2024 End: 08-09-2024 Cytopathology procedure, preparation of smear, genital source Pap Smear Pathology and Cytology Routine Pap smear, as part of routine gynecological examination 1 Occurrences starting 08/10/2023 until 08/09/2024 [facility] Comment on above: 1 Occurrences starti ng 08/10/2023 until 08/09/2024 End: 01-19-2025 nonstress test - Maternal Medicine nonstress test - Maternal Medicine OB Routine Supervision of high risk in third trimester Per Treatment Plan for 4 Occurrences starting 10/19/2024 until 01/19/2025 [employer]: Comment on above: Per Treatment Plan f or 4 Occurrences starting 10/19/2024 until 01/19/2025 End: 04-18-2025 HCG, Quantitative, HCG, Quantitative, Lab Routine Positive test 1 Occurrences starting 04/18/2024 until 04/18/2025 [facility]: Comment on above: 1 Occurrences starti ng 04/18/2024 until 04/18/2025 Hemoglobin A1c/Hemoglobin.total in Blood Hemoglobin A1c Lab Routine Missed menses , unspecified gestational age Ordered: 05/05/2024 [facility] Comment on above: Ordered: 05/05/2024 Hepatitis B virus surface Ag [Presence] in Serum or Plasma by Immunoassay Hepatitis B surface antigen Lab Routine Missed menses , unspecified gestational age Ordered: 05/05/2024 [facility] Comment on above: Ordered: 05/05/2024 Hepatitis C virus Ab [Presence] in Serum or Plasma by Immunoassay Hepatitis C antibody Lab Routine Missed menses , unspecified gestational age Ordered: 05/05/2024 [facility] Comment on above: Ordered: 05/05/2024 End: 08-09-2024 Hepatitis panel, acute Hepatitis panel, acute Lab Routine Screening for STD (sexually transmitted disease) 1 Occurrences starting 08/10/2023 until 08/09/2024 [facility] [employer] Comment on above: 1 Occurrences starti ng 08/10/2023 until 08/09/2024 End: 08-09-2024 High risk HPV w/faustina High risk HPV w/faustina Lab Routine Pap smear, as part of routine gynecological examination 1 Occurrences starting 08/10/2023 until 08/09/2024 [facility] on [facility]: 1 Occurrences starti ng 08/10/2023 until 08/09/2024 End: 08-09-2024 HIV 1&2 AB/AG Screen (P24 AG) HIV 1&2 AB/AG Screen (P24 AG) Lab Routine Screening for STD (sexually transmitted disease) 1 Occurrences starting 08/10/2023 until 08/09/2024 [facility]: Comment on above: 1 Occurrences starti ng 08/10/2023 until 08/09/2024 HIV-1/HIV-2 antigen/antibody combination immunoassay HIV-1 and HIV-2 antibodies Lab Routine Missed menses , unspecified gestational age Ordered: 05/05/2024 [facility] Comment on above: Ordered: 05/05/2024 Human papilloma viru s DNA [Presence] in Unspecified specimen by Probe with amplification HPV DNA probe, amplified Microbiology Routine Well woman exam with routine gynecological exam Ordered: 07/06/2024 [facility] Comment on above: Ordered: 07/06/2024 End: 09-26-2024 Lipid panel Lipid panel Lab Routine Well adult health check 1 Occurrences starting 09/27/2023 until 09/26/2024 [facility] [facility] Comment on above: 1 Occurrences starti ng 09/27/2023 until 09/26/2024 Neisseria gonorrhoea e DNA [Presence] in Unspecified specimen by ALLISON with probe detection Neisseria gonorrhea DNA probe, direct Lab Routine Exposure to STD Ordered: 07/06/2024 [facility] Comment on above: Ordered: 07/06/2024 Neisseria gonorrhoea e DNA [Presence] in Unspecified specimen by ALLISON with probe detection Neisseria gonorrhea DNA probe, direct Lab Routine Chlamydia trachomatis infection 21 weeks gestation of Second trimester Ordered: 08/01/2024 [facility] Comment on above: Ordered: 08/01/2024 Reagin Ab [Presence] in Serum by RPR RPR Lab Routine Missed menses , unspecified gestational age Ordered: 05/05/2024 [facility] Comment on above: Ordered: 05/05/2024 Rubella antibody, IgG Rubella an tibody, IgG Lab Routine Missed menses , unspecified gestational age Ordered: 05/05/2024 [facility] Comment on above: Ordered: 05/05/2024 SURESWAB(R) ADVANCED VAGINITIS PLUS, TMA SURESWAB(R) ADVANCED VAGINITIS PLUS, TMA Pathology and Cytology Routine Vaginal discharge Ordered: 07/06/2024 [facility] Work Phone: Comment on above: Ordered: 07/06/2024 SURESWAB(R) ADVANCED VAGINITIS PLUS, TMA SURESWAB(R) ADVANCED VAGINITIS PLUS, TMA Pathology and Cytology Routine Chlamydia trachomatis infection 21 weeks gestation of Second trimester Ordered: 08/01/2024 [facility] [employer] Work Phone: Comment on above: Ordered: 08/01/2024 End: 08-09-2024 Syphilis Total(Unknown Syphilis Status) Syphilis Total(Unknown Syphilis Status) Lab Routine Screening for STD (sexually transmitted disease) 1 Occurrences starting 08/10/2023 until 08/09/2024 [facility] Comment on above: 1 Occurrences starti ng 08/10/2023 until 08/09/2024 Thyrotropin [Units/volume] in Serum or Plasma TSH Lab Routine Missed menses Ordered: 05/09/2024 [facility] [employer] Work Phone: Comment on above: Ordered: 05/09/2024 End: 09-26-2024 TSH with Reflex TSH with Reflex Lab Routine Class 1 obesity due to excess calories without serious comorbidity with body mass index (BMI) of 31.0 to 31.9 in adult 1 Occurrences starting 09/27/2023 until 09/26/2024 [facility] Comment on above: 1 Occurrences starti ng 09/27/2023 until 09/26/2024 End: 09-10-2024 Us uterus limited 1/> fetuses Yan [employer] Work Phone: Comment on above: Once for 1 Occurrenc es starting 09/10/2024 until 09/10/2024 Immunizations Immunization Date Immunization Notes Care Provider Fa yunior 11-03-2024 tetanus toxoid, redu andrew diphtheria toxoid, and acellular pertussis vaccine, adsorbed Tiffany Ornelas MD Work Phone: [facility] 11-03-2024 Immunization, In Clinic,; Translations: [Drug or medicament (substance)] Tiffany Ornelas MD Work Phone: [facility] 08-16-2018 tetanus toxoid, redu andrew diphtheria toxoid, and acellular pertussis vaccine, adsorbed Armen Street DO Work Phone: [facility] Payers Date Payer Category Payer Unknown [id number] 2023 Commercial Managed C are - PPO [employer] Member Subscriber Plan / Payer (Effective 2023-Present) Name: Sapna Serranoy Relation to Subscriber: Self Name: Sapna Serrano Payer ID: Not on file Type: Not on file Address: [place] [id number] 2023 Private Health Insurance [id number] 2023 Unknown [id number] 1.13.693.2. [id number] 2023 Unknown [id number] 2017 Unknown [id number] 1.2.840.658957.1.13.239.2. [id number] 1993 Unknown [id number] 2.16.840.1.633683.3.579.2. 1285 1993 Unknown [id number] 2.16.840.1.381279.3.579.2. 128 1993 Unknown [id number] 2.16840.1.143857.3.579.2. 1285 1993 Unknown [id number] 2.16840.1.919763.3.579.2. 1285 1993 Unknown [id number] 2.16840.1.029921.3.579.2. 1285 1993 Unknown [id number] 2.16840.1.430920.3.579.2. 1285 1993 Unknown [id number] 2.16840.1.771568.3.579.2. 1285 1993 Unknown [id number] 2.16.840.1.898898.3.579.2. 128 1993 Unknown [id number] 2.16.840.1.214315.3.579.2. 173 1993 Unknown [id number] 2.16.840.1.094179.3.579.2. 173 1993 Unknown [id number] 2.16840.1.311010.3.579.2. 173 1993 Unknown [id number] 2.16.840.1.911810.3.579.2. 128 1993 Unknown [id number] 2.16.840.1.661690.3.579.2. 1285 1993 Unknown [id number] 2.16840.1.979363.3.579.2. 1285 1993 Unknown [id number] 2.16840.1.377515.3.579.2. 1285 1993 Unknown [id number] 2.16840.1.375859.3.579.2. 1285 1993 Unknown [id number] 2.16840.1.378193.3.579.2. 1285 1993 Unknown [id number] 2.840.1.694439.3.579.2. 1285 1993 Unknown [id number] 2.840.1.603176.3.579.2. 1285 1993 Unknown [id number] 2.0.1.361390.3.579.2. 1285 1993 Unknown [id number] 2.840.1.172506.3.579.2. 1285 1993 Unknown [id number] 2.0.1.563892.3.579.2. 1285 1993 Unknown [id number] 2.840.1.007703.3.579.2. 1285 1993 Unknown [id number] 2.0.1.631498.3.579.2. 1285 1993 Unknown [id number] 2.840.1.303421.3.579.2. 1285 1993 Unknown [id number] 2.840.1.751454.3.579.2. 1285 1993 Unknown [id number] 2.16840.1.552866.3.579.2. 1285 1993 Unknown [id number] 2.840.1.090439.3.579.2. 1285 1993 Unknown [id number] 2.840.1.811356.3.579.2. 1286 Medicaid [place] [id number] Social History Date Type Detail Facility [facility] consumption [facility] Start: 1995 Sex assigned at Female [facility] Start: 10-25-2023 Gender identity Identifies as female gender (finding) [facility] Start: 08-25-2023 End: 11-03-2024 Sexual orientation Not on file [facility] Start: 08-01-2011 End: 04-27-2024 Tobacco smoking status TXIS Smokes tobacco daily [facility] Start: 08-01-2011 History of tobacco use Cigarette Smo ker [facility] Start: 08-25-2023 End: 11-03-2024 Cigarettes smoked current (pack per day) - Reported 1 [facility] Start: 08-25-2023 End: 04-27-2024 Tobacco use and exposure Smokeless tobacco non-user [facility] Start: 01-27-2024 End: 11-03-2024 Alcoholic beverage intake Ex-drinker (finding) [facility] Has the [employer], or [place] threatened to shut off services in your home in past 12Mo No [facility] Are you now , , , , never or living with a partner? Never [facility] How often to you hav e a drink containing alcohol? Never [facility] How many standard drinks containing alcohol do you have on a typical day? Patient does not drink [facility] How hard is it for y ou to pay for the very basics like food, housing, medical care, and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 needed 510 g 5 04/27/2024 Scheduled Active and Recently Administ ered Medications (unrecognized section and content) Medication Order 04/25/2024 04/26/202404/2704/27/2024 acetaminophen (TYLENOL) tablet 650 mg (COMPLETED) 650 [...] BE BASED ON THE PRIMARY CLINICAL RECORDS. [employer] [facility]. provides no warranty or guarantee of the accuracy or completeness of information in this document.
[2024-11-16 15:30] VITALS: BP 121/75; PULSE 88
== END 2024-11-16 16:10 | disposition home or self-care (01) ==
LOC: US 14:55 → FBC 15:08
PROVIDERS: PCP Family Medicine; Visit Provider Obstetrics & Gynecology
DX: O26.893 Other specified pregnancy related conditions, third trimester (principal); Z13.228 Encounter for screening for other metabolic disorders; Z3A.36 36 weeks gestation of pregnancy
CPT/HCPCS: 76818

== ENCOUNTER 2024-11-20 18:46 | Outpatient (OUT) | payer OTHER, SELFPAY ==
[2024-11-20 18:52] VITALS: BP 133/85; PULSE 96
--- OUTSIDE RECORDS SUMMARY | 2024-11-20 18:53 | XMS_ITS | CCD ---
Author Organization [facility] CliniSyde Care Team Providers Care Etl Tester Name Role Phone CLAIRE KAT Referring Unavailable MASOODLONGARMEN Referring Unavailable MASOODLONGARMEN Primary Care Unavailable HAJA OSULLIVAN Admitting Unavailable HAJA OSULLIVAN Attending Unavailable ARMEN STRE[address] Primary Care Unavailable HAJA OSULLIVAN Attending Unavailable HAJA OSULLIVAN Referring Unavailable MASOODLOARMEN HUERTA Primary Care Unavailable Unavailable Primary Care Provider Armen Mcgregor DO Primary Care Provider Armen Street DO Primary Care Provider [phone] [facility] MD Primary Care Provider Unavailable Primary Care Provider Armen Mcgregor MD Primary Care Provider Armen Street DO Primary Care Provider ARMEN STREET Attending Unavailable ARMEN STREET Referring Unavailable MASOODLOARMEN HUERTA Primary Care Unavailable ARMEN STREET Attending Unavailable ARMEN STREET Referring Unavailable MASOODLONGARMEN Primary Care Unavailable ARMEN STREET Attending Unavailable ARMEN STREET Referring Unavailable MASOODLOARMEN HUERTA Primary Care Unavailable CURTIS PAEZ Referring Unavailable ARMEN STRE[address] Primary Care Unavailable VICTORINO CHRISTIE Admitting Unavailable VICTORINO CHRISTIE Attending Unavailable ARMEN ST[address] Primary Care Unavailable ZULLY VALLEJO Attending Unavailable ARMEN [address] Primary Care Unavailable MASOODLONGARMEN Primary Care Unavailable Furlong MD, Armen G Primary Care Provider Esther Maldonado APRN Attending Provider Furloazalea DOArmen Primary Care Provider FURLONG, ARMEN G Primary Care Unavailable JEANNINE, CURTIS R Referring Unavailable FURLONG, ARMEN G Primary Care Unavailable JEANNINE, CURTIS R Referring Unavailable KATY, LYNDSEY Attending Unavailable FURLONG, ARMEN G Primary Care Unavailable JEANNINE, CURTIS R Referring Unavailable KATY, LYNDSEY Referring Unavailable FURLONG, ARMEN G Primary Care Unavailable RASHIDA ALVAREZ Attending Unavailable FURLONG, ARMEN G Referring Unavailable FURLONG, ARMEN G Primary Care Unavailable KATY, LYNDSEY Attending Unavailable FURLONG, ARMEN G Primary Care Unavailable JEANNINE, CURTIS R Referring Unavailable FURLONG, ARMEN G Primary Care Unavailable EDIL SNOW Attending Unavailable JEANNINE, CURTIS R Referring Unavailable FURLONG, ARMEN G Primary Care Unavailable JEANNINE, CURTIS R Referring Unavailable FURLONG, ARMEN G Primary Care Unavailable JEANNINE, CURTIS R Referring Unavailable FURLONG, ARMEN G Referring Unavailable FURLONG, ARMEN G Primary Care Unavailable RAIN IVERSON Attending Unavail able FURLONG, ARMEN G Primary Care Unavailable LAFYATISRAIN Referring Unavail able FURLONG, ARMEN G Primary Care Unavailable BOSTONTISRAIN Referring Unavail able FURLONG, RAMEN G Primary Care Unavailable RIPYATISRAIN Referring Unavail able FURLONG, ARMEN G Primary Care Unavailable JEANNINE, CURTIS R Referring Unavailable FURLONG, ARMEN G Primary Care Unavailable JEANNINE, CURTIS R Referring Unavailable KENDRAANGELA Attending Unavailable FURLONG, ARMEN G Referring Unavailable FURLONG, ARMEN G Primary Care Unavailable TIFFANY ORNELAS Attending Unavailabl e FURLONG, ARMEN G Primary Care Unavailable LAFYATISRAIN Referring Unavail able KENDRA ANGELA E Attending Unavailable FURLONG, ARMEN G Primary Care Unavailable LAFYATISRAIN Referring Unavail able FURLONG, ARMEN G Referring Unavailable FURLONG, ARMEN G Primary Care Unavailable GIACOMO HORNE Attending Unavailable Allergies Allergy Classification Reported Allergen(s) Allergy [...] azithromycin (ZITHROMAX) 250 MG tablet 08/15/2018 Active famotidine 20 mg oral tablet (1 source) Histamine-2 Receptor Antagonist Start: 11-17-2024 take 1 tablet by mouth in the morning, then take 1 tablet by mouth at bedtime famotidine (PEPCID) 20 mg tablet Take 1 tablet (20 mg total) by mouth in the morning and 1 tablet (20 mg total) before bedtime. 60 tablet 1 11/17/2024 Active FLUoxetine 20 mg oral capsule (20 [...] mouth once daily. Active polyethylene glycol 3350 32643 mg powder for oral solution (20 sources) [...] time Active MV-Min-Fe Fum-FA-DHA ( 1 PO) (20 sources) MV-Min- Fe Fum-FA-DHA ( 1 PO) Take 1 each by mouth Daily Active terbinafine 250 mg oral tablet (2 sources) Allylamine Antifungal Start: 4 End: 4 take 1 tablet by mouth [...] in 24 hours. 21 day ethinyl estradiol 0.528995 mg/hr / etonogestrel 0.005 mg/hr vaginal system [...] [Generalized anxiety disorder] Onset: 10-25-2023 10-25-2023 Chronic Bacterial infection; unspecified site (1 source) Chlamydial infection, unspecified; Translations: [Chlamydial infection, unspecified] Onset: 11-02-2024 Episodic Cancer of cervix (1 source) Low grade [...] of ; puerperium affecting management of mother (18 sources) finding; Translations: [Maternal care for other (suspected) abnormality and damage, gastrointestinal anomalies, not applicable or unspecified] Onset: 09-30-2024 09-30-2024 Episodic Other complications of (1 source) Obesity complicating , unspecified trimester; Translations: [Obesity complicating , unspecified trimester] Onset: 10-05-2024 Chronic Other complications of (20 sources) Previous operation to cervix affecting ; [...] Onset: 06-12-2024 06-12-2024 Episodic Other complications of (16 sources) Anomaly of placenta; 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, unspecified, third trimester] Onset: 09-21-2024 09-21-2024 Episodic Other complications of (3 sources) Chlamydia trachomatis infection in ; Translations: [Other maternal infectious and parasitic diseases complicating , unspecified trimester] Onset: 11-02-2024 11-02-2024 Episodic Other complications of (1 source) Other maternal infectious and parasitic diseases complicating , unspecified trimester; Translations: [Other maternal infectious and parasitic diseases complicating , unspecified trimester] Onset: 11-02-2024 Episodic Other complications of (1 source) [...] of ] 05-09-2024 Episodic Residual codes; unclassified (12 sources) History of loop electrosurgical excision procedure; [...] of ] 09-18-2024 Episodic Residual codes; unclassified (14 sources) Gestation period, 29 weeks; Translations: [29 [...] source) Routine Visit Onset: 10-19-2024 Viral infection (17 sources) Herpes simplex; Translations: [Herpesviral infection, unspecified] [...] Test Name Value Interpretation Reference Range Facility STREP B SCREENon 11-17-2024 STREP B SCREEN CULTURE RESULTS NEGATIVE FOR GROUP B STREPTOCOCCUS BY NUCLEIC ACID AMPLIFICATION Normal [facility] Comment on above: Performed By: #### [facility] [place] [facility] (TT) [address] [place] [address] VIR US OB BPP W NON-STRESS on 11-16-2024 [place] [address] Ultrasound Report Signed Patient: SAPNA SERRANO MR#: [id number] : 1995 Acct:[id number] Age/Sex: 29 / F ADM Date: 11/16/24 Loc: [facility] 250-[address]: Curtis Paez D.O. Ordering Physician: Curtis Paez D.O. Date of Service: 11/16/24 Procedure(s): US OB BPP w non-stress Accession Number(s): [id number] cc: [address] Corey D.O. [place] [id number] Patient Name: SAPNA SERRANO MRN: [facility]:[id number] date: 1995 Sex: F Assigned Patient Location: [facility] Current Patient Location: [facility] Accession/Order Number: [id number] Exam Date: 11/16/2024 15:41 Report Date: 11/16/2024 15:42 At the request of: CURTIS PAEZ DO Procedure: US OB BPP w non-stress Biophysical profile. Reason for exam: Cystic fibrosis COMPARISON: 11/09/2024 TECHNIQUE: Transabdominal imaging of the gravid uterus was obtained. FINDINGS: The lumber scaler reports a BPP of 8 out of 8. NAYE is normal at 13.5 cm. heart rate 139 bpm. US/US OB BPP w non-stress IMPRESSION: BPP 8 out of 8. Impression dictated by: Hugo Atkins Jr., D.O. 11/16/2024 3:42 PM Dictation Location: [place] [address] Electronically authenticated by: [id number] Y Date: 11/16/2024 15:42 Dictated By: Hugo Atkins M.D. Signed By: 11/16/24 1544 DD/ 1542 TD/TT: Shipping Point Inspector: [facility] Radiology, Radiologist, MD - 11/17/2024 [place] [address] Ultrasound Report Signed Patient: SAPNA SERRANO MR#: [id number] : 1995 Acct:[id number] Age/Sex: 29 / F ADM Date: 11/16/24 Loc: [facility] 250-[address]: Curtis Paez D.O. Ordering Physician: Curtis Paez D.O. Date of Service: 11/16/24 Procedure(s): US OB BPP w non-stress Accession Number(s): [id number] cc: [address] Corey D.O. [place] [address] Patient Name: SAPNA SERRANO MRN: [facility]:[id number] date: 1995 Sex: F Assigned Patient Location: [facility] Current Patient Location: [facility] Accession/Order Number: [id number] Exam Date: 11/16/2024 15:41 Report Date: 11/16/2024 15:42 At the request of: CURTIS PAEZ DO Procedure: US OB BPP w non-stress Biophysical profile. Reason for exam: Cystic fibrosis COMPARISON: 11/09/2024 TECHNIQUE: Transabdominal imaging of the gravid uterus was obtained. FINDINGS: The lumber scaler reports a BPP of 8 out of 8. NAYE is normal at 13.5 cm. heart rate 139 bpm. US/US OB BPP w non-stress IMPRESSION: BPP 8 out of 8. Impression dictated by: Hugo Atkins Jr., D.O. 11/16/2024 3:42 PM Dictation Location: [place] [address] Electronically authenticated by: [id number] Y Date: 11/16/2024 15:42 Dictated By: Hugo Atkins M.D. Signed By: 11/16/24 1544 DD/ 1542 TD/TT: Shipping Point Inspector: [facility] Radiology Study observation (narrative) [facility] US OB BPP W NON-STRESS Ordered By: Radiologist Radiology on 11-16-2024 [facility] [employer] Work Phone: US OB BPP W NON-STRESS on 11-09-2024 [place] [address] Ultrasound Report Signed Patient: SAPNA SERRANO MR#: [id number] : 1995 Acct:[id number] Age/Sex: 29 / F ADM Date: 11/09/24 Loc: [place] [address]- Attending Dr: Curtis Paez D.O. Ordering Physician: Curtis Paez D.O. Date of Service: 11/09/24 Procedure(s): US OB BPP w non-stress Accession Number(s): [id number] cc: [address] Corey D.O. [place] [address] Patient Name: SAPNA SERRANO MRN: [facility]:[id number] date: 1995 Sex: F Assigned Patient Location: [facility] Current Patient Location: [facility] Accession/Order Number: [id number] Exam Date: 11/09/2024 11:36 Report Date: 11/09/2024 11:37 At the request of: CURTIS PAEZ DO Procedure: US OB BPP w non-stress BIOPHYSICAL PROFILE: CLINICAL INFORMATION: CYSTIC FIBROSIS CARRIER O09.899 COMPARISON: 11/02/2024 There is a single live intrauterine gestation in cephalic presentation. The reported gestational age is 35 weeks 2 days. The heart rate [id number] beats per minute. FINDINGS: TONE: 1 or [...] Rahman M.D. 11/09/2024 11:37 AM Dictation Location: [place] [address] Electronically authenticated by: [id number] Y Date: 11/09/2024 11:37 Dictated By: Laura Rahman M.D. Signed By: 11/09/24 1140 DD/ 1137 TD/TT: Shipping Point Inspector: [facility] Radiology, Radiologist, MD - 11/09/2024 [place] [address] Ultrasound Report Signed Patient: SAPNA SERRANO MR#: [id number] : 1995 Acct:[id number] Age/Sex: 29 / F ADM Date: 11/09/24 Loc: [place] [address]: Curtis Paez D.O. Ordering Physician: Curtis Paez D.O. Date of Service: 11/09/24 Procedure(s): US OB BPP w non-stress Accession Number(s): [id number] cc: [address] ; Curtis Paez D.O. The [place] [address] Patient Name: SAPNA SERRANO MRN: [facility]:[id number] date: 1995 Sex: F Assigned Patient Location: [facility] Current Patient Location: [facility] Accession/Order Number: [id number] Exam Date: 11/09/2024 11:36 Report Date: 11/09/2024 11:37 At the request of: CURTIS JEANNINE DO [...] [Y] 2/2 NAYE: 15.2 cm Total score: 8/8 US/ OB BPP w non-stress IMPRESSION: NORMAL BIOPHYSICAL PROFILE Impression dictated by: Laura Rahman M.D. 11/09/2024 11:37 AM Dictation Location: [place] [address] Electronically authenticated by: [id number] Y Date: 11/09/2024 11:37 Dictated By: Laura Rahman M.D. Signed By: 11/09/24 1140 DD/ 1137 TD/TT: Shipping Point Inspector: [facility] Radiology Study observation (narrative) [facility] OB BPP W NON-STRESS Ordered By: Radiologist Radiology on 11-09-2024 [facility] e Work Phone: C. trachomatis DNA ALLISON+probe Ql (Unsp spec)Ordered By: Sindhu Blackman on 11-05-2024 Interpretation and review of laboratory results Normal [facility] N. gonorrhoeae DNA ALLISON+probe Ql (Unsp spec) Negative Negative [facility] Comment on above: Neisseria gonorrhoea e not detected by nucleic acid amplification. This does not exclude the possibility of infection because results are dependent on adequate specimen collection. [facility] Chlamydia/Gonorrhoeae by PCR , UrineOrdered By: Sindhu Blackman on 11-05-2024 C. trachomatis DNA ALLISON+probe Ql (Unsp spec) Negative Negative [facility] Comment on above: Chlamydia trachomati s not [...] dependent on adequate specimen collection. Normal [facility] Comment on above: Performed By: #### [facility] #### [facility] (TT) [address] [place] [address] VIR US OB BPP W NON-STRESS on 11-02-2024 [place] [address] Ultrasound Report Signed Patient: SAPNA SERRANO MR#: [id number] : 1995 Acct:[id number] Age/Sex: 29 / F ADM Date: 11/02/24 Loc: [facility] 250-[address]: Curtis Paez D.O. Ordering Physician: Curtis Paez D.O. Date of Service: 11/02/24 Procedure(s): US OB BPP w non-stress Accession Number(s): [id number] cc: [address] Corey D.O. [address] [address] Patient Name: SAPNA SERRANO MRN: [facility]:[id number] date: 1995 Sex: F Assigned Patient Location: [facility] Current Patient Location: [facility] Accession/Order Number: [id number] Exam Date: 11/02/2024 11:40 Report Date: 11/02/2024 11:42 At the request of: CURTIS PAEZ DO Procedure: US OB BPP w non-stress Biophysical profile. Reason for exam: Cystic fibrosis COMPARISON: 10/26/2024 TECHNIQUE: Transabdominal imaging of the gravid uterus was obtained. FINDINGS: The lumber scaler reports a BPP of 8 out of 8. NAYE is normal at 15.9 cm. heart rate 153 bpm. US/US OB BPP w non-stress IMPRESSION: BPP 8 out of 8. Impression dictated by: Hugo Atkins Jr., D.O. 11/02/2024 11:42 AM Dictation Location: [place] [address] Electronically authenticated by: [id number] Y Date: 11/02/2024 11:42 Dictated By: Hugo Atkins M.D. Signed By: 11/02/24 1144 DD/ 1142 TD/TT: Shipping Point Inspector: [facility] Radiology, Radiologist, MD - 11/02/2024 [place] [address] Ultrasound Report Signed Patient: SAPNA SERRANO MR#: [id number] : 1995 Acct:[id number] Age/Sex: 29 / F ADM Date: 11/02/24 Loc: [facility] 250-[address]: Curtis Paez D.O. Ordering Physician: Curtis Paez D.O. Date of Service: 11/02/24 Procedure(s): US OB BPP w non-stress Accession Number(s): [id number] cc: [address] ; Curtis Paez D.O. The [place] [id number] Patient Name: SAPNA SERRANO MRN: [facility]:[id number] date: 1995 Sex: F Assigned Patient Location: [facility] Current Patient Location: [facility] Accession/Order Number: [id number] Exam Date: 11/02/2024 11:40 Report Date: 11/02/2024 11:42 At the request of: CURTIS PAEZ DO Procedure: US OB BPP w non-stress Biophysical profile. Reason for exam: Cystic fibrosis COMPARISON: 10/26/2024 TECHNIQUE: Transabdominal imaging of the gravid uterus was obtained. FINDINGS: The lumber scaler reports a BPP of 8 out of 8. NAYE is normal at 15.9 cm. heart rate 153 bpm. US/US OB BPP w non-stress IMPRESSION: BPP 8 out of 8. Impression dictated by: Hugo Atkins Jr., D.O. 11/02/2024 11:42 AM Dictation Location: [place] [address] Electronically authenticated by: [id number] Y Date: 11/02/2024 11:42 Dictated By: Hugo Atkins M.D. Signed By: 11/02/24 1144 DD/ 1142 TD/TT: Shipping Point Inspector: [facility] Appifier Radiology Study observation (narrative) [facility] US OB BPP W NON-STRESS Ordered By: Radiologist Radiology on 11-02-2024 [facility] [employer] Work Phone: US OB CERVICAL LENGTHon 10-05 [place] [address] Ultrasound Report Signed Patient: SAPNA SERRANO MR#: [id number] : 1995 Acct:[id number] Age/Sex: 29 / F ADM Date: 11/01/24 Loc: US Attending Dr: Jocy Ruby Ordering Physician: Jocy Ruby Date of Service: 11/01/24 Procedure(s): US OB cervical length Accession Number(s): [id number] cc: Jocy Ruby; [address] [place] [address] Patient Name: SAPNA SERRANO MRN: [facility]:[id number] date: 1995 Sex: F Assigned Patient Location: Current Patient Location: US Accession/Order Number: [id number] Exam Date: 11/01/2024 11:33 Report Date: 11/01/2024 [...] Jr., D.O. 11/01/2024 11:35 AM Dictation Location: [id number] Electronically authenticated by: [id number] Y Date: 11/01/2024 11:35 Dictated By: Hugo Atkins M.D. Signed By: 11/01/24 1137 DD/ 1135 TD/TT: Shipping Point Inspector: [facility] Radiology, Radiologist, MD - 11/01/2024 [place] [address] Ultrasound Report Signed Patient: SAPNA SERRANO MR#: [id number] : 1995 Acct:[id number] Age/Sex: 29 / F ADM Date: 11/01/24 Loc: US Attending Dr: Jocy Ruby Ordering Physician: Jocy Ruby Date of Service: 11/01/24 Procedure(s): US OB cervical length Accession Number(s): [id number] cc: Jocy Ruby; [address] [place] [id number] Patient Name: SAPNA SERRANO MRN: [facility]:[id number] date: 1995 Sex: F Assigned Patient Location: US Current Patient Location: US Accession/Order Number: [id number] Exam Date: 11/01/2024 11:33 Report Date: 11/01/2024 [...] Jr., D.O. 11/01/2024 11:35 AM Dictation Location: [facility]--23 Electronically authenticated by: [id number] Y Date: 11/01/2024 11:35 Dictated By: Hugo Atkins M.D. Signed By: 11/01/24 1137 DD/ 1135 TD/TT: Shipping Point Inspector: [facility] Radiology Study observation (narrative) [facility] US OB CERVICAL LENGTHOrdered By: Radiologist Radiology on 11-01-2024 [facility] [employer] Work Phone: US OB BPP W NON-STRESS on 10-26-2024 [place] [address] Ultrasound Report Signed Patient: SAPNA SERRANO MR#: [id number] : 1995 Acct:[id number] Age/Sex: 29 / F ADM Date: 10/26/24 Loc: [facility] 255-[address]: Curtis Paez D.O. Ordering Physician: Curtis Paez D.O. Date of Service: 10/26/24 Procedure(s): US OB BPP w non-stress Accession Number(s): [id number] cc: [address] Corey D.O. [place] [address] Patient Name: SAPNA SERRANO MRN: [facility]:[id number] date: 1995 Sex: F Assigned Patient Location: [facility] Current Patient Location: [facility] Accession/Order Number: [id number] Exam Date: 10/26/2024 16:51 Report Date: 10/26/2024 16:52 At the request of: CURTIS PAEZ DO Procedure: US OB BPP w non-stress Biophysical profile. Reason for exam: Cystic fibrosis COMPARISON: None TECHNIQUE: Transabdominal imaging of the gravid uterus was obtained. FINDINGS: The lumber scaler reports a BPP of 8 out of 8. NAYE is normal at 17.6 cm. heart rate 150 bpm. US/US OB BPP w non-stress IMPRESSION: BPP 8 out of 8. Impression dictated by: Hugo Atkins Jr., D.O. 10/26/2024 4:52 PM Dictation Location: [place] [address] Electronically authenticated by: [id number] Y Date: 10/26/2024 16:52 Dictated By: Hugo Atkins M.D. Signed By: 10/26/241654 DD/ 51 TD/TT: Shipping Point Inspector: [facility] Radiology, Radiologist, - 10/27/2024 [place] [address] Ultrasound Report Signed Patient: SAPNA SERRANO MR#: [id number] : 1995 Acct:[id number] Age/Sex: 29 / F ADM Date: 10/26/24 Loc: [facility] 255-[address]: Curtis Paez D.O. Ordering Physician: Curtis Paez D.O. Date of Service: 10/26/24 Procedure(s): US OB BPP w non-stress Accession Number(s): [id number] cc: [address] Corey D.O. The [place] [address] Patient Name: SAPNA SERRANO MRN: [facility]:[id number] date: 1995 Sex: F Assigned Patient Location: [facility] Current Patient Location: [facility] Accession/Order Number: [id number] Exam Date: 10/26/2024 16:51 Report Date: 10/26/2024 16:52 At the request of: CURTIS PAEZ DO Procedure: US OB BPP w non-stress Biophysical profile. Reason for exam: Cystic fibrosis COMPARISON: None TECHNIQUE: Transabdominal imaging of the gravid uterus was obtained. FINDINGS: The lumber scaler reports a BPP of 8 out of 8. NAYE is normal at 17.6 cm. heart rate 150 bpm. US/US OB BPP w non-stress IMPRESSION: BPP 8 out of 8. Impression dictated by: Hugo Atkins Jr., D.O. 10/26/2024 4:52 PM Dictation Location: [place] [address] Electronically authenticated by: [id number] Y Date: 10/26/2024 16:52 Dictated By: Hugo Atkins M.D. Signed By: 10/26/241654 DD/ 51 TD/TT: Shipping Point Inspector: [facility] Radiology Study observation (narrative) [facility] US OB BPP W NON-STRESS Ordered By: Radiologist Radiology on 10-26-2024 [facility] [employer] Work Phone: nonstress test - Mater nal Medicineon 10-24-2024 Patient Name: Sapna Serrano Patient : 1995 NST Objective Findings: Variability: (!) Marked Decelerations: None Accelerations: Yes Acoustic Stimulator: No Baseline: 140 BPM Uterine Irritability: No Contractions: Not present NST Interpretation: Nonstress Test Interpretation: Reactive (Lyndsey Burns MD) Comments: Dr Katy daywecristina tracing and is reactive, baby active no ctxs (Jennifer Sheets) NST performed by: Jennifer Sheets RN 10/24/2024 4:16 PM ASOBGYN nonstress test - Mater nal MedicineOrdered By: Rashida Hutchins on 10-24-2024 [facility] US OB BPP W NON-STRESS on 10-19-2024 [place] [address] Ultrasound Report Signed Patient: SAPNA SERRANO MR#: [id number] : 1995 Acct:[id number] Age/Sex: 29 / F ADM Date: 10/19/24 Loc: [facility] 250-[address]: Curtis Paez D.O. Ordering Physician: Curtis Paez D.O. Date of Service: 10/19/24 Procedure(s): US OB BPP w non-stress Accession Number(s): [id number] cc: [address] ; Curtis Paez D.O. [address] [address] Patient Name: SAPNA SERRANO MRN: [id number]:[id number] date: 1995 Sex: F Assigned Patient Location: US Current Patient Location: US Accession/Order Number: [id number] Exam Date: 10/19/2024 11:25 Report Date: 10/19/2024 [...] Rahman M.D. 10/19/2024 11:27 AM Dictation Location: [place] [address] Electronically authenticated by: [id number] Y Date: 10/19/2024 11:27 Dictated By: Laura Rahman M.D. Signed By: 10/19/24 1130 DD/ 1127 TD/TT: Shipping Point Inspector: [facility] Radiology, Radiologist, - 10/19/2024 [place] [address] Ultrasound Report Signed Patient: SAPNA SERRANO MR#: [id number] : 1995 Acct:[id number] Age/Sex: 29 / F ADM Date: 10/19/24 Loc: [facility] 250-[address]: Curtis Paez D.O. Ordering Physician: Curtis Paez D.O. Date of Service: 10/19/24 Procedure(s): US OB BPP w non-stress Accession Number(s): [id number] cc: FURLONG,Curtis Montgomery D.O. The [place] [address] Patient Name: SAPNA SERRANO MRN: [id number]:[id number] date: 1995 Sex: F Assigned Patient Location: Current Patient Location: US Accession/Order Number: [id number] Exam Date: 10/19/2024 11:25 Report Date: 10/19/2024 [...] is in low-normal range Total score: 8/8 /US OB BPP w non-stress IMPRESSION: NORMAL BIOPHYSICAL PROFILE Impression dictated by: Laura Rahman M.D. 10/19/2024 11:27 AM Dictation Location: [place] [address] Electronically authenticated by: [id number] Y Date: 10/19/2024 11:27 Dictated By: Laura Rahman M.D. Signed By: 10/19/24 1130 DD/ 1127 TD/TT: Shipping Point Inspector: [facility] Radiology Study observation (narrative) [facility] OB BPP W NON-STRESS Ordered By: Radiologist Radiology on 10-19-2024 [facility] Approvac[employer] Work Phone: No Panel InformationOrdered By: Esther Maldonado on 10-17-2024 Quick Strep (POC) [facility] US OB BPP W NON-STRESS on 10-12-[address] [address] Ultrasound Report Signed Patient: SAPNA SERRANO MR#: [id number] : 1995 Acct:[id number] Age/Sex: 29 / F ADM Date: 10/12/24 Loc: [facility] 250-[address]: Curtis Paez D.O. Ordering Physician: Curtis Paez D.O. Date of Service: 10/12/24 Procedure(s): US OB BPP w non-stress Accession Number(s): [id number] cc: [address] ; Curtis Paez D.O. The [address] [address] Patient Name: SAPNA SERRANO MRN: [facility]:[id number] date: 1995 Sex: F Assigned Patient Location: [facility] Current Patient Location: [facility] Accession/Order Number: [id number] Exam Date: 10/12/2024 20:55 Report Date: 10/12/2024 [...] Adequate ultrasound biophysical profile Impression dictated by: aMn Schumacher M.D. 10/12/2024 8:55 PM Dictation Location: [place] [address] Electronically authenticated by: [id number] Y Date: 10/12/2024 20:55 Dictated By: Man Schumacher D.O. Signed By: 10/12/242057 DD/ 54 TD/TT: Shipping Point Inspector: [facility] Radiology, Radiologist, - 10/13/2024 The [place] [id number] Ultrasound Report Signed Patient: SAPNA SERRANO MR#: [id number] : 1995 Acct:[id number] Age/Sex: 29 / F ADM Date: 10/12/24 Loc: [facility] 250-[address]: Curtis Paez D.O. Ordering Physician: Curtis Paez D.O. Date of Service: 10/12/24 Procedure(s): US OB BPP w non-stress Accession Number(s): [id number] cc: [address] ; Curtis Paez D.O. [place] [address] Patient Name: SAPNA SERRANO MRN: [facility]:[id number] date: 1995 Sex: F Assigned Patient Location: [facility] Current Patient Location: [facility] Accession/Order Number: [id number] Exam Date: 10/12/2024 20:55 Report Date: 10/12/2024 [...] Schumacher M.D. 10/12/2024 8:55 PM Dictation Location: [place] [address] Electronically authenticated by: [id number] Y Date: 10/12/2024 20:55 Dictated By: Man Schumacher D.O. Signed By: 10/12/242057 DD/ 54 TD/TT: Shipping Point Inspector: [facility] Radiology Study observation (narrative) [facility] US OB BPP W NON-STRESS Ordered By: Radiologist Radiology on 10-12-2024 [facility] Approvac[employer] Work Phone: US OB PLACENTAon 10-04-[address] [address] Ultrasound Report Signed Patient: SAPNA SERRANO MR#: [id number] : 1995 Acct:[id number] Age/Sex: 29 / F ADM Date: 09/24/24 Loc: [facility] Attending Dr: Curtis Paez D.O. Ordering Physician: Curtis Paez D.O. Date of Service: 09/24/24 Procedure(s): US OB placenta Accession Number(s): [id number] cc: [address] ; Curtis Paez D.O. [place] [address] Patient Name: SAPNA SERRANO MRN: [id number] date: 1995 Sex: F Assigned Patient Location: [facility] Current Patient Location: US Accession/Order Number: [id number] Exam Date: 10/04/2024 09:16 Report Date: 10/04/2024 [...] Rahman M.D. 10/04/2024 9:50 AM Dictation Location: [place] [address] Electronically authenticated by: [id number] Y Date: 10/04/2024 09:50 Dictated By: Laura Rahman M.D. Signed By: 10/04/24 0952 DD/ 0950 TD/TT: Shipping Point Inspector: [facility] Radiology, Radiologist, - 10/04/2024 [place] [address] Ultrasound Report Signed Patient: SAPNA SERRANO MR#: [id number] : 1995 Acct:[id number] Age/Sex: 29 / F ADM Date: 09/24/24 Loc: [facility] Attending Dr: Curtis Paez D.O. Ordering Physician: Curtis Paez D.O. Date of Service: 09/24/24 Procedure(s): US OB placenta Accession Number(s): [id number] cc: [address] ; Curtis Paez D.O. The [place] [id number] Patient Name: SAPNA SERRANO MRN: [facility]:[id number] date: 1995 Sex: F Assigned Patient Location: [facility] Current Patient Location: US Accession/Order Number: [id number] Exam Date: 10/04/2024 09:16 Report Date: 10/04/2024 [...] Rahman M.D. 10/04/2024 9:50 AM Dictation Location: [place] [address] Electronically authenticated by: [id number] Y Date: 10/04/2024 09:50 Dictated By: Laura Rahman M.D. Signed By: 10/04/2452 DD/ TD/TT: Shipping Point Inspector: [facility] Radiology Study observation (narrative) [facility] OB PLACENTAOrdered By: Ra recio Radiology on 10-04-2024 [facility] Healthcar e Work Phone: Urinalysis macro (dipstick) panel (U)on 10-03-2024 Bilirubin, UA Negative Negative - 4(70) +++ mg/dL [facility] Blood, UA Negative Negative - 50 Koby/mcL [facility] Clarity, UA Clear [facility] re Color, UA Yellow [facility] e Glucose, UA Negative Negative - 1999(110) ++++ mg/dL [facility] Interpretation and review of laboratory results Abnormal [facility] Ketones, UA Negative Negative - 160(16) ++++ mg/dL [facility] Leukocytes, UA Negative Negative - 500+++ Danny/mcL [facility] Nitrite, UA Negative Negative - Positive [facility] pH, UA 7.5 5 - 9 [facility] e Protein, UA Trace Negative - 1999(20) ++++ mg/dL [facility] Spec Grav, UA 1.02 1 - 1.03 [facility] Urobilinogen, UA 0.2 0.2 - 12 mg/dL [facility] OB BPP W NON-STRESS on 09-25-2024 [place] [address] Ultrasound Report Signed Patient: SAPNA SERRANO MR#: [id number] : 1995 Acct:[id number] Age/Sex: 29 / F ADM Date: Loc: [facility] 251-[address]: Curtis Paez D.O. Ordering Physician: Curtis Paez D.O. Date of Service: 09/24/24 Procedure(s): US OB BPP w non-stress Accession Number(s): [id number] cc: [address] ; Curtis Paez D.O. The [place] [id number] Patient Name: SAPNA SERRANO MRN: [facility]:[id number] date: 1995 Sex: F Assigned Patient Location: [facility] Current Patient Location: [facility] Accession/Order Number: [id number] Exam Date: 09/25/2024 08:05 Report Date: 09/25/2024 08:08 At the request of: CURTIS PAEZ DO Procedure: US OB BPP w non-stress CLINICAL DATA: History of bleeding. Possible abruption. BIOPHYSICAL PROFILE: COMPARISON: None There is a single live intrauterine gestation in cephalic presentation. The reported gestational age is 28 weeks 5 days. The heart rate [id number] beats per minute. FINDINGS: TONE: 1 or [...] Rahman M.D. 09/25/2024 8:08 AM Dictation Location: [place] [address] Electronically authenticated by: [id number] Y Date: 09/25/2024 08:08 Dictated By: Laura Rahman M.D. Signed By: 09/25/24 0810 DD/ 0808 TD/TT: Shipping Point Inspector: [facility] Radiology, Radiologist, - 09/25/2024 [place] [address] Ultrasound Report Signed Patient: SAPNA SERRANO MR#: [id number] : 1995 Acct:[id number] Age/Sex: 29 / F ADM Date: Loc: [facility] 251-[address]: Curtis Paez D.O. Ordering Physician: Curtis Paez D.O. Date of Service: 09/24/24 Procedure(s): US OB BPP w non-stress Accession Number(s): [id number] cc: [address] ; Curtis Paez D.O. [place] [id number] Patient Name: SAPNA SERRANO MRN: [facility]:[id number] date: 1995 Sex: F Assigned Patient Location: [facility] Current Patient Location: [facility] Accession/Order Number: [id number] Exam Date: 09/25/2024 08:05 Report Date: 09/25/2024 08:08 At the request of: CURTIS PAEZ DO Procedure: US OB BPP w non-stress CLINICAL DATA: History of bleeding. Possible abruption. BIOPHYSICAL PROFILE: COMPARISON: None There is a single live intrauterine gestation in cephalic presentation. The reported gestational age is 28 weeks 5 days. The heart rate [id number] beats per minute. FINDINGS: TONE: 1 or [...] Rahman M.D. 09/25/2024 8:08 AM Dictation Location: [place] [address] Electronically authenticated by: [id number] Y Date: 09/25/2024 08:08 Dictated By: Laura Rahman M.D. Signed By: 09/25/24 0810 DD/ TD/TT: Shipping Point Inspector: [facility] Radiology Study observation (narrative) [facility] US OB BPP W NON-STRESS Ordered By: Radiologist Radiology on 09-25-2024 [employer] Work Phone: US OB CERVICAL LENGTHon 09-03 [place] [id number] Ultrasound Report Signed Patient: SAPNA SERRANO MR#: [id number] : 1995 Acct:[id number] Age/Sex: 29 / F ADM Date: 09/21/24 Loc: US Attending Dr: Curtis Paez D.O. Ordering Physician: Curtis Paez D.O. Date of Service: 09/21/24 Procedure(s): US OB cervical length Accession Number(s): [id number] cc: [address] ; Curtis Paez D.O. [address] [address] Patient Name: SAPNA SERRANO MRN: [facility]:[id number] date: 1995 Sex: F Assigned Patient Location: US Current Patient Location: US Accession/Order Number: [id number] Exam Date: 09/21/2024 14:39 Report Date: 09/21/2024 [...] Jr., D.O. 09/21/2024 2:40 PM Dictation Location: [place] [address] Electronically authenticated by: [id number] Y Date: 09/21/2024 14:40 Dictated By: Hugo Atkins M.D. Signed By: 09/21/24 1443 DD/ 1440 TD/TT: Shipping Point Inspector: [facility] Radiology, Radiologist, MD - 09/21/2024 [place] [address] Ultrasound Report Signed Patient: SAPNA SERRANO MR#: [id number] : 1995 Acct:[id number] Age/Sex: 29 / F ADM Date: 09/21/24 Loc: US Attending Dr: Curtis Paez D.O. Ordering Physician: Curtis Paez D.O. Date of Service: 09/21/24 Procedure(s): US OB cervical length Accession Number(s): [id number] cc: [address] ; Curtis Paez D.O. The [place] [address] Patient Name: SAPNA SERRANO MRN: [id number] date: 1995 Sex: F Assigned Patient Location: US Current Patient Location: US Accession/Order Number: [id number] Exam Date: 09/21/2024 14:39 Report Date: 09/21/2024 [...] Jr., D.O. 09/21/2024 2:40 PM Dictation Location: [place] [address] Electronically authenticated by: [id number] Y Date: 09/21/2024 14:40 Dictated By: Hugo Atkins M.D. Signed By: 09/21/24 144 DD/ 39 TD/TT: Shipping Point Inspector: [facility] Radiology Study observation (narrative) [facility] US OB CERVICAL LENGTHOrdered By: Radiologist Radiology on 09-21-2024 [facility] Appro[employer] Work Phone: US OB PLACENTAon 09-21-[address] [address] Ultrasound Report Signed Patient: SAPNA SERRANO MR#: [id number] : 1995 Acct:[id number] Age/Sex: 29 / F ADM Date: 09/21/24 Loc: US Attending Dr: Curtis Paez D.O. Ordering Physician: Curtis Paez D.O. Date of Service: 09/21/24 Procedure(s): US OB placenta Accession Number(s): [id number] cc: [address] ; Curtis Paez D.O. [place] [id number] Patient Name: SAPNA SERRANO MRN: [id number]:[id number] date: 1995 Sex: F Assigned Patient Location: US Current Patient Location: US Accession/Order Number: [id number] Exam Date: 09/21/2024 14:41 Report Date: 09/21/2024 [...] Jr., D.O. 09/21/2024 2:53 PM Dictation Location: [place] [address] Electronically authenticated by: [id number] Y Date: 09/21/2024 14:53 Dictated By: Hugo Atkins M.D. Signed By: 09/21/24 1456 DD/ 1453 TD/TT: Shipping Point Inspector: [facility] Radiology, Radiologist, MD - 09/21/2024 [place] [address] Ultrasound Report Signed Patient: SAPNA SERRANO MR#: [id number] : 1995 Acct:[id number] Age/Sex: 29 / F ADM Date: 09/21/24 Loc: US Attending Dr: Curtis Paez D.O. Ordering Physician: Curtis Paez D.O. Date of Service: 09/21/24 Procedure(s): US OB placenta Accession Number(s): [id number] cc: [address] ; Curtis Paze D.O. The [place] [address] Patient Name: SAPNA SERRANO MRN: [facility]:[id number] date: 1995 Sex: F Assigned Patient Location: US Current Patient Location: US Accession/Order Number: [id number] Exam Date: 09/21/2024 14:41 Report Date: 09/21/2024 [...] Jr., D.O. 09/21/2024 2:53 PM Dictation Location: [place] [address] Electronically authenticated by: [id number] Y Date: 09/21/2024 14:53 Dictated By: Hugo Atkins M.D. Signed By: 09/21/24 1456 DD/ 52 TD/TT: Shipping Point Inspector: [facility] Radiology Study observation (narrative) [facility] US OB PLACENTAOrdered By: Ra recio Radiology on 09-21-2024 [facility]: US OB 1 OR [...] Eldon Maldonado MD 09/11/24 Final result Normal [facility] ALL CBC WITH AUTO DIFFon BASOPHILS ABSOLUTE AUTO 0.1 [facility] Basophils/100 WBC (Bld) 0.7 % 0.2 - 2.0 % [facility] Eosinophils/100 WBC (Bld) 1.8 % 0.9 - 7.0 % [facility] Erythrocyte distribution width (RBC) [Ratio] 13.7 % 11.0 - 15.0 % [facility] IMMATURE GRANULOCYTES ABS AUTO 0.06 High [facility] Immature granulocytes/100 WBC (Bld) 0.5 % 0.0 - 0.5 % [facility] Interpretation and review of laboratory results Abnormal [facility] LYMPHOCYTES ABSOLUTE AUTO 2.1 [facility] Lymphocytes/100 WBC (Bld) 17.6 % Low 20.5 - 60.0 % [facility] MCH (RBC) [Entitic mass] 30.1 pg 26.7 - 34.0 pg [facility] MCHC (RBC) [Mass/Vol] 33.5 g/dL 29.9 - 35.2 g/dL [facility] MCV (RBC) [Entitic vol] 89.8 fL 81.0 - 99.0 fL [facility] MONOCYTES ABSOLUTE AUTO 0.7 [facility] Monocytes/100 WBC (Bld) 6 % 1.7 - 12.0 % [facility] NEUTROPHILS ABSOLUTE AUTO 8.6 High [facility] Neutrophils/100 WBC (Bld) 73.4 % 43.0 - 75.0 % [facility] Platelet mean volume (Bld) [Entitic vol] 9.6 fL 9.5 - 13.5 fL [facility] EO # 0.2 [facility] TB PLT 272 [facility] e TB RBC 4.32 [facility] TB WBC 11.8 High [facility] CBC without diffon Platelets (Bld) [#/Vol] 272 10*3/uL [facility] Rbc Mcv (Fl) By Automated Count 89.8 [facility] Glucose tolerance, 1 houron 08-30-2024 Glucose Tolerance Test 1 Hour 66 [facility] Laboratory - Hematology and Cell countson 08-30-2024 Hematocrit (Bld) [Volume fraction] 38.8 % [facility] e Hemoglobin (Bld) [Mass/Vol] 13 g/dL [facility] No Panel Informationon 08-30 [facility] e Colposcopyon 08-14-2024 Curtis Paez DO 08/15/2024 [...] paperwork completed: yes Educational handouts given: no [facility] Appifier [facility] SEND OUT TESTon 07-28-2024 SENT TO [facility] VIA [employer] [phone] [facility] Comment on above: Result Comment: Miki ected on 07/28 AT 1418: Previously reported as [facility] [employer] [id number] SENT TO [facility] VIA [employer] [phone] [facility] Comment on above: Result Comment: Miki ected on 07/28 AT 1418: Previously reported as [facility] [employer] [id number] SPECIMEN 3 MATERNAL AMNIOTIC FLUID 2 EDTA AND 1 SODIUM HEP MATERNAL Normal [facility] TEST NAME: KNOWN MUTATION ANALYSIS CFTR GENE Normal [facility] TEST NAME: MATERNAL CELL CONTAMINATION Normal [facility] TEST RESULT See separate report. View in ENOVIX or in Shoplins. Normal [facility] AFP, SERUM, OPEN SPINA BIFID Aon 07-08-2024 AFP MOM 0.85 . [facility] AFP VALUE 28.4 ng/mL . [facility] Approvacar e COMMENT: Comment . [facility] Approvac[facility] Comment on above: Joan Shetty , Ph.D., [facility] Director References: Available Upon Request. Multiples Of Median Cutoffs For AFP Elevations [place] 2.5 Black 2.8 IDD 2.0 Twins 4.5 Abbreviation Definitions IDD - Insulin Dep Diabetes OSBR - Open Spina Bifida Risk For further inquiries contact [facility] at [phone]. This test was developed and its performance characteristics determined by [employer]. It has not been cleared or approved by the Food and Drug Administration. Performed at: [facility] [address] [place], [place] [id number] Asphalt Heater Tender: Sonja Esposito [facility], Phone: [phone] GEST. AGE ON COLLECTION DATE 17.1 . weeks [facility] Healthcare GESTAT. AGE BASED ON LMP . [facility] Comment on above: Recalculations are n ot recommended when gestational dating by LMP and ultrasound are within 10 days. INSULIN DEP DIABETES No . [facility] INTERPRETATION Comment . [facility] hcare Comment on above: Interpretation: Scre en [...] Customer Services to discuss available options. The [employer] recommends amniocentesis be offered to women age 35 and older. [age] [facility] MULTIPLE GESTATION No . [facility] OSBR RISK [address] [place] [address] . [facility] hca RACE . [facility] RESULTS Report . [facility] TEST RESULTS: Negative . [facility] WEIGHT 186 . lbs [facility] e N N LMP [id number] 1 17 N 1 Y 186 N N N N N White/ [facility] e RECURRENT VAGINITIS (HTRX)on 07-07-2024 ATOPOBIUM VAGINAE 0 [facility] ATOPOBIUM VAGINAE Not detected [facility] BVAB 2,3 (BACTERIAL VAGINOSIS ASSOCIATED BACTERIA 2, 3); MOBILUNCUS SPP 0 [facility] BVAB 2,3 (BACTERIAL VAGINOSIS ASSOCIATED BACTERIA 2, 3); MOBILUNCUS SPP Not detected [facility] ILIANA ALBICANS, PARAPSILOSIS, TROPICALIS 0 [facility] ILIANA ALBICANS, PARAPSILOSIS, TROPICALIS Not detected [facility] ILIANA GLABRATA 0 [facility] ILIANA GLABRATA Not detected [facility]altare ILIANA KRUSEI 0 [facility] hcare ILIANA KRUSEI Not detected [facility] CHLAMYDIA TRACHOMATIS 22.157 Abnormal [facility] CHLAMYDIA TRACHOMATIS Detected Abnormal [facility] ERMB, C; MEFA 26.913 Abnormal [facility] ERMB, C; MEFA Detected Abnormal [facility] GARDNERELLA VAGINALIS 0 [facility] GARDNERELLA VAGINALIS Not detected N [facility] Interpretation and review of laboratory results Abnormal [facility] MEGASPHAERA (TYPES 1, 2) 0 [facility] MEGASPHAERA (TYPES 1, 2) Not detected [facility] MYCOPLASMA GENITALIUM 0 [facility] MYCOPLASMA GENITALIUM Not detected [facility] NEISSERIA GONORRHOEAE 0 [facility] NEISSERIA GONORRHOEAE Not detected N [facility] Healthcare TET B, TET M 23.614 Abnormal [facility] Healthc are TET B, TET M Detected Abnormal [facility] Health are TRICHOMONAS VAGINALIS 0 [facility] TRICHOMONAS VAGINALIS Not detected N [facility] Healthcare [facility] AFP Single Marker Scrn, Mate rnal, Serumon 07-06-2024 Ms Alpha-Fetoprotein Negative [facility] C. trachomatis DNA ALLISON+probe Ql (Unsp spec)on 07-06-2024 Chlamydia Dna(Pcr) Detected [facility] Gonorrhoeae Dna(Pcr) Negative [facility] HM PAP SMEARon 07-06-2024 HM Pap smear LSIL [facility] High risk HPV w/genoon 07-06 Other High Risk Hpv Negative [facility] No Panel Informationon 07-06 [facility] Urinalysis macro (dipstick) panel (U)on 07-06-2024 Bilirubin, UA Negative Negative - 4(70) +++ mg/dL [facility] Blood, UA Negative Negative - 50 Koby/mcL [facility] Clarity, UA Clear [facility] re Color, UA Yellow [facility] Glucose, UA Negative Negative - 1999(110) ++++ mg/dL [facility] Interpretation and review of laboratory results Abnormal [facility] Ketones, UA Positive Negative - 160(16) ++++ mg/dL [facility] Comment on above: trace Leukocytes, UA Trace Negative - 500+++ Danny/mcL [facility] Nitrite, UA Negative Negative - Positive [facility] pH, UA 6 5 - 9 [facility] Protein, UA Trace Negative - 1999(20) ++++ mg/dL [facility] Spec Grav, UA 1.03 1 - 1.03 [facility] care Urobilinogen, UA 0.2 0.2 - 12 mg/dL [facility] US OB CERVICAL LENGTHon [address] [address] Ultrasound Report Signed Patient: SAPNA SERRANO MR#: [id number] : 1995 Acct:[id number] Age/Sex: 28 / F ADM Date: 07/05/24 Loc: US Attending Dr: Curtis Paez D.O. Ordering Physician: Curtis Paez D.O. Date of Service: 07/05/24 Procedure(s): US OB cervical length Accession Number(s): [id number] cc: [address] ; Curtis Paez D.O. The [place] [address] Patient Name: SAPNA SERRANO MRN: [facility]:[id number] date: 1995 Sex: F Assigned Patient Location: US Current Patient Location: US Accession/Order Number: [id number] Exam Date: 07/05/2024 08:08 Report Date: 07/05/2024 [...] Laura Rahman M.D.07/05/2024 8:10 AM Dictation Location: [place] [address] Electronically authenticated by: [id number] Y Date: 07/05/2024 08:10 Dictated By: Laura Rahman M.D. Signed By: 07/05/24 0813 DD/ 9 TD/TT: Shipping Point Inspector: [facility] Radiology, Radiologist, MD - 07/05/2024 [place] [address] Ultrasound Report Signed Patient: SAPNA SERRANO MR#: [id number] : 1995 Acct:[id number] Age/Sex: 28 / F ADM Date: 07/05/24 Loc: US Attending Dr: Curtis Paez D.O. Ordering Physician: Curtis Paez D.O. Date of Service: 07/05/24 Procedure(s): US OB cervical length Accession Number(s): [id number] cc: [address] ; Curtis Paez D.O. [place] [id number] Patient Name: SAPNA SERRANO MRN: [id number] date: 1995 Sex: F Assigned Patient Location: US Current Patient Location: US Accession/Order Number: [id number] Exam Date: 07/05/2024 08:08 Report Date: 07/05/2024 [...] Laura Rahman M.D.07/05/2024 8:10 AM Dictation Location: [place] [address] Electronically authenticated by: [id number] Y Date: 07/05/2024 08:10 Dictated By: Laura Rahman M.D. Signed By: 07/05/24 0813 DD/ 9 TD/TT: Shipping Point Inspector: [facility] Radiology Study observation (narrative) [facility] US OB CERVICAL LENGTHOrdered By: Radiologist Radiology on 07-05-2024 [facility] [employer] Work Phone: Urinalysis macro (dipstick) panel (U)on 06-08-2024 Bilirubin, UA Negative Negative - 4(70) +++ mg/dL [facility] Blood, UA Negative Negative - 50 Koby/mcL [facility] Clarity, UA Clear [facility] re Color, UA Yellow [facility] Glucose, UA Negative Negative - 1999(110) ++++ mg/dL [facility] Interpretation and review of laboratory results Normal [facility] Ketones, UA Negative Negative - 160(16) ++++ mg/dL [facility] Leukocytes, UA Negative Negative - 500+++ Danny/mcL [facility] Nitrite, UA Negative Negative - Positive [facility] pH, UA 6 5 - 9 [facility] e Protein, UA Negative Negative - 1999(20) ++++ mg/dL [facility] Spec Grav, UA 1.02 1 - 1.03 [facility] Urobilinogen, UA 0.2 0.2 - 12 mg/dL [facility] ALL CBC WITH AUTO DIFFon BASOPHILS ABSOLUTE AUTO 0.1 [facility] Basophils/100 WBC (Bld) 0.6 % 0.2 - 2.0 % [facility] Eosinophils/100 WBC (Bld) 1.7 % 0.9 - 7.0 % [facility] Erythrocyte distribution width (RBC) [Ratio] 13.2 % 11.0 - 15.0 % [facility] Hematocrit (Bld) [Volume fraction] 41.1 % 36.0 - 48.0 % [facility] Hem[facility] (Bld) [Mass/Vol] 13.5 g/dL 12.0 - 16.0 g/dL [facility] IMMATURE GRANULOCYTES ABS AUTO 0.05 High [facility] Immature granulocytes/100 WBC (Bld) 0.5 % 0.0 - 0.5 % [facility] Interpretation and review of laboratory results Abnormal [facility] LYMPHOCYTES ABSOLUTE AUTO 1.9 [facility] Lymphocytes/100 WBC (Bld) 17 % Low 20.5 - 60.0 % [facility] MCH (RBC) [Entitic mass] 29.6 pg 26.7 - 34.0 pg [facility] MCHC (RBC) [Mass/Vol] 32.8 g/dL 29.9 - 35.2 g/dL [facility] MCV (RBC) [Entitic vol] 90.1 fL 81.0 - 99.0 fL [facility] MONOCYTES ABSOLUTE AUTO 0.8 [facility] Monocytes/100 WBC (Bld) 7 % 1.7 - 12.0 % [facility] NEUTROPHILS ABSOLUTE AUTO 8.1 High [facility] Neutrophils/100 WBC (Bld) 73.2 % 43.0 - 75.0 % [facility] Platelet mean volume (Bld) [Entitic vol] 9.6 fL 9.5 - 13.5 fL [facility] Healthc are [facility] EO # 0.2 [facility] PLT 312 [facility] TB RBC 4.56 [facility] WBC 11.1 High [facility] CLINISYNC BOX TESTon 05-17-2024 BOX TEST SENT OUT [facility] BOX1 [facility] Health[facility] e BOX2 05/17/24 [facility] [place] [facility] e Drug Screen, Urineon 025 Amphetamine/Methamphet amine Negative [facility] Barbiturates Negative [facility] Benzodiazepines Negative [facility] Cocaine Metabolite Negative [facility] Methadone Negative [facility] Opiates Negative [facility] Oxycodone Negative [facility] Phencyclidine Negative [facility] Thc Marijuana, Urine Negative [facility] HBV surface Ag IA Qlon 05-17 Hepatitis B Surface Antigen Negative [facility] HCV Ab IA Qlon 05-17-2024 HCV Ab Ql (S) Non-Reactive [facility] HIV 1+2 Ab+HIV1 p24 Ag IA Ql on 05-17-2024 HIV 1&2 AB/AG Non-Reactive [facility] No Panel Informationon 05-17 [facility] e Rubella IGG immune statuson 05-17-2024 Rubella immune IgG 1.54 [facility] Comment on above: IMMUNE T. pallidum IgG+IgM IA Ql (S )Ordered By: Lyric Sánchez on 05-17-2024 Syphilis Non-Reactive [facility] TSHon 05-17-2024 Thyroid Stimulating (3Rd Generation) Hormone/ Tsh 0.649 [facility] Type and screenon 05-17-2024 Abo/Rh(D) Positive [facility] HCG ( test) Ql (U)o n 05-05-2024 Interpretation and review of laboratory results Abnormal [facility] Preg Test, Ur Positive Negative [facility] Health[facility] Urinalysis macro (dipstick) panel (U)on 05-05-2024 Bilirubin, UA Negative Negative - 4(70) +++ mg/dL [facility] Blood, UA Negative Negative - 50 Koby/mcL [facility] Clarity, UA Clear [facility] re Color, UA Yellow [facility] e Glucose, UA Negative Negative - 1999(110) ++++ mg/dL [facility] Interpretation and review of laboratory results Abnormal [facility] Ketones, UA Negative Negative - 160(16) ++++ mg/dL [facility] Leukocytes, UA Negative Negative - 500+++ Danny/mcL [facility] Nitrite, UA Negative Negative - Positive [facility] pH, UA 7 5 - 9 [facility] Protein, UA Positive Negative - 1999(20) ++++ mg/dL [facility] Comment on above: 30 Spec Grav, UA 1.02 1 - 1.03 [facility] Urobilinogen, UA 0.2 0.2 - 12 mg/dL [facility] Basic Metabolic Panelon 04-06 Anion gap [Moles/Vol] 12 mmol/L 9 - 16 mmol/L [facility] Calcium [Mass/Vol] 9.1 mg/dL 8.6 - 10. 4 mg/dL [facility] Chloride [Moles/Vol] 102 mmol/L 98 - 10 7 mmol/L [facility] CO2 [Moles/Vol] 23 mmol/L 20 - 31 mmol/L [facility] Creatinine [Mass/Vol] 0.5 mg/dL 0.50 - 0.90 mg/dL [facility] Est, Glom Filt Rate - PINF [facility] Comment on above: These results are [...] 66 mg/dL Low 74 - 99 mg/dL [facility] Interpretation and review of laboratory results Abnormal [facility] Potassium [Moles/Vol] 3.8 mmol/L 3.7 - 5.3 mmol/L [facility] Sodium [Moles/Vol] 137 mmol/L 136 - 145 mmol/L [facility] Urea nitrogen [Mass/Vol] 9 mg/dL 6 - 20 mg/dL [facility] Urea nitrogen/Creatinine [Mass ratio] 18 mg/mg 9 - 20 [facility] Basic Metabolic Profon 04-27 Anion gap [Moles/Vol] 12 mmol/L Normal 9-16 [facility] Comment on above: Performed By: #### B JACQUELIN, CDP #### [facility] [address] [place] [address] [employer]phalt Heater Tender: Gal Katz MD BUN/CRE Ratio 18 Normal 9- [facility] Comment on above: Performed By: #### B JACQUELIN, CDP #### [facility] [address] [place], [place] [id number] [employer] He[employer] Tender: Gal Katz MD Calcium [Mass/Vol] 9.1 mg/dL Normal 8.6-10.4 [facility] Comment on above: Performed By: #### B MP, CDP #### [facility] [address] [place], [place] [id number] [employer]phalt Heater Tender: Gal Katz MD Chloride [Moles/Vol] 102 mmol/L Normal 98-107 [facility] Comment on above: Performed By: #### B MP, CDP #### [facility] [address] [place], [place] [id number] [employer] He[employer] Tender: Gal Katz MD CO2 [Moles/Vol] 23 mmol/L Normal 20-31 [facility] Comment on above: Performed By: #### B MP, CDP #### [facility] [address] [place] [address] [employer]phalt Heater Tender: Gal Katz MD Creatinine [Mass/Vol] 0.5 mg/dL Normal 0.50-0.90 [facility] Comment on above: Performed By: #### B JAQCUELIN, CDP #### [facility] [address] [place] [address] [place] [address] [employer]phalt Heater Tender: Gal Katz MD GFR/1.73 sq M.predicted among non-blacks MDRD (S/P/Bld) [Vol rate/Area] mL/min/{1.73_m2} Normal >60 [facility] Comment on above: Result Comment: These results [...] Performed By: #### B JACQUELIN, CDP #### [facility] [address] [place] [address] [place], [place] [id number] [employer] Heater Tender: Gal Katz MD Glucose [Mass/Vol] 66 mg/dL Low 74-99 [facility] Comment on above: Performed By: #### B JACQUELIN, CDP #### [address] [place], [place] [id number] [employer]phalt Heater Tender: Gal Katz MD Potassium [Moles/Vol] 3.8 mmol/L Normal 3.7-5.3 [facility] Comment on above: Performed By: #### B JACQUELIN, CDP #### [facility] [address] [place] [address] [place] [address] [employer]phalt Heater Tender: Gal Katz MD Sodium [Moles/Vol] 137 mmol/L Normal 136-145 [facility] Comment on above: Performed By: #### B JACQUELIN, CDP #### [facility] [address] [place] [address] [place], [place] [id number] [employer] He[employer] Tender: Gal Katz MD Urea nitrogen [Mass/Vol] 9 mg/dL Normal 6-20 [facility] Comment on above: Performed By: #### B MP, CDP #### [facility] [address] [place] [address] [employer]phalt Heater Tender: Gal Katz MD CBC with Auto Differentialon 04-27-2024 Basophils (Bld) [#/Vol] 0.09 10*3/uL [facility] Basophils/100 WBC (Bld) 1 % 0 - 2 % [facility] Eosinophils (Bld) [#/Vol] 0.17 10*3/uL [facility] Eosinophils/100 WBC (Bld) 2 % 1 - 4 % [facility] Erythrocyte distribution width (RBC) [Ratio] 12.7 % 11.8 - 14.4 % [facility] Hematocrit (Bld) [Volume fraction] 41.1 % 36.3 - 47.1 % [facility] Hemoglobin (Bld) [Mass/Vol] 14.0 g/dL 11.9 - 15.1 g/dL [facility] Immature granulocytes (Bld) [#/Vol] 0.04 10*3/uL [facility] Immature granulocytes/100 WBC (Bld) 0 % 0 [facility] Interpretation and review of laboratory results Abnormal [facility] Lymphocytes/100 WBC (Bld) 20 % Low 24 - 43 % [facility] Lymphocytes/100 WBC (Bld) 2.31 % [facility] MCH (RBC) [Entitic mass] 30.1 pg 25.2 - 33.5 pg [facility] MCHC (RBC) [Mass/Vol] 34.1 g/dL 28.4 - 34.8 g/dL [facility] MCV (RBC) [Entitic vol] 88.4 fL 82.6 - 102.9 fL [facility] Monocytes/100 WBC (Bld) 8 % 3 - 12 % [facility] Monocytes/100 WBC (Bld) 0.90 % [facility] Neutrophils/100 WBC (Bld) 69 % High 36 - 65 % [facility] Nucleated RBC/100 WBC (Bld) [Ratio] 0.0 % 0.0 per 100 WBC [facility] Platelet mean volume (Bld) [Entitic vol] 9.4 fL 8.1 - 13.5 fL [facility] Platelets (Bld) [#/Vol] 327 10*3/uL [facility] RBC (Bld) [#/Vol] 4.65 10*6/uL 3.95 - 5.1 1 m/uL [facility] Segmented neutrophils/100 WBC (Bld) 8.09 % [facility] WBC other (Bld) [#/Vol] 11.6 High [facility] CBC with Diffon 04-27-2024 Abs. Basophil 0.09 k/uL Normal 0.00-0.20 [facility] Comment on above: Performed By: #### Jeffrey ROPER, CDP #### [facility] [address] [place] [address] [place] [id number] [employer]phalt Heater Tender: Gal Katz MD Abs.Imm.Granulocyte 0.04 k/uL Normal 0.00-0.30 [facility] Comment on above: Performed By: #### B JACQUELIN, CDP #### [address] [place] [id number] [employer] Heater Tender: Gal Katz MD Abs.Neutrophil (Seg) 8.09 k/uL Normal 1.50-8.10 [facility] Comment on above: Performed By: #### Jeffrey ROPER, CDP #### [address] [place] [address] [employer]phalt Heater Tender: Gal Katz MD Basophils/100 WBC (Bld) 1 % Normal 0-2 [facility] Comment on above: Performed By: #### B JACQUELIN, CDP #### [address] [place] [id number] [employer] Heater Tender: Gal Katz MD Eosinophils (Bld) [#/Vol] 0.17 10*3/uL Normal 0.00-0.44 [facility] Comment on above: Performed By: #### B MP, CDP #### [facility] [address] [place], [facility]83 [employer] He[employer] Tender: Gal Katz MD Eosinophils/100 WBC (Bld) 2 % Normal 1-4 [facility] Comment on above: Performed By: #### B MP, CDP #### [facility] [address] [place], [facility]83 [employer] Heater Tender: Gal Katz MD Erythrocyte distribution width (RBC) [Ratio] 12.7 % Normal 11.8-14.4 [facility] Comment on above: Performed By: #### B MP, CDP #### [address] [place], [facility]83 [employer] He[employer] Tender: Gal Katz MD Hematocrit (Bld) [Volume fraction] 41.1 % Normal 36.3-47.1 [facility] Comment on above: Performed By: #### B MP, CDP #### [address] [place], [facility]83 [employer] Heater Tender: Gal Katz MD Hemoglobin (Bld) [Mass/Vol] 14.0 g/dL Normal 11.9-15.1 [facility] Comment on above: Performed By: #### B JACQUELIN, CDP #### [address] [place], [facility]83 [employer] He[employer] Tender: Gal Katz MD Immature granulocytes/100 WBC (Bld) 0 % Normal 0 [facility] Comment on above: Performed By: #### B MP, CDP #### [address] [place], [facility]83 [employer] Heater Tender: Gal Katz MD Lymphocytes (Bld) [#/Vol] 2.31 10*3/uL Normal 1.10-3.70 [facility] Comment on above: Performed By: #### B MP, CDP #### [address] [place], [place] [id number] [employer] He[employer] Tender: Gal Katz MD Lymphocytes/100 WBC (Bld) 20 % Low 24-43 [facility] Comment on above: Performed By: #### B JACQUELIN, CDP #### [facility] [address] [place], [place] [id number] [employer] Heater Tender: Gal Katz MD MCH (RBC) [Entitic mass] 30.1 pg Normal 25.2-33.5 [facility] Comment on above: Performed By: #### B JACQUELIN, CDP #### [facility] [address] [place], [place] [phone] [employer] Heater Tender: Gal Katz MD MCHC (RBC) [Mass/Vol] 34.1 g/dL Normal 28.4-34.8 [facility] Comment on above: Performed By: #### B JACQUELIN, CDP #### [facility] [address] [place], [facility]83 [employer] He[employer] Tender: Gal Katz MD MCV (RBC) [Entitic vol] 88.4 fL Normal 82.6-102.9 [facility] Comment on above: Performed By: #### B JACQUELIN, CDP #### [facility] [address] [place], [place] [id number] [employer] Heater Tender: Gal Katz MD Monocytes (Bld) [#/Vol] 0.90 10*3/uL Normal 0.10-1.20 [facility] Comment on above: Performed By: #### B JACQUELIN, CDP #### [facility] [address] [place], [place] [id number] [employer] He[employer] Tender: Gal Katz MD Monocytes/100 WBC (Bld) 8 % Normal 3-12 [facility] Comment on above: Performed By: #### B MP, CDP #### [facility] [address] [place], [place] [phone] Asphalt Heater Tender: Gal Katz MD Neutrophil (Seg) 69 % High 36-65 [facility] Comment on above: Performed By: #### B JACQUELIN, CDP #### [facility] [address] [place], [place] [id number] [employer] Heater Tender: Gal Katz MD NRBC Automated 0.0 per 100 WBC Normal 0.0 [facility] Comment on above: Performed By: #### B JACQUELIN, CDP #### [facility] [address] [place] [address] Asphalt Heater Tender: Gal Katz MD Platelet mean volume (Bld) [Entitic vol] 9.4 fL Normal 8.1-13.5 [facility] Comment on above: Performed By: #### B JACQUELIN, CDP #### [address] [place] [address] [employer] Heater Tender: Gal Katz MD Platelets (Bld) [#/Vol] 327 10*3/uL Normal 138-453 [facility] Comment on above: Performed By: #### B JACQUELIN, CDP #### [address] [place], [place] [id number] [employer] Heater Tender: Gal Katz MD RBC (Bld) [#/Vol] 4.65 10*6/uL Normal 3.95-5.11 [facility] Comment on above: Performed By: #### B JACQUELIN, CDP #### [facility] [address] [place] [address] [place] [address] Asphalt Heater Tender: Gal Katz MD WBC (Bld) [#/Vol] 11.6 10*3/uL High 3.5-11.3 [facility] Comment on above: Performed By: #### B JACQUELIN, CDP #### [facility] [address] [place], [place] [id number] As[employer] Heater Tender: Gal Katz MD HCG, Quanton 04-27-2024 HCG, Quant 80537.0 mIU/mL High 0-7 [facility] Comment on above: Result Comment: Non-preg premeno <=5 Postmeno <=8 Male <=3 If HCG results do not concur with clinical observations, additional testing to confirm results is recommended. Performed By: #### B HCG #### [facility] [address] [place] [address] Asphalt Heater Tender: Gal Katz MD HCG, Quantitative, on 04-27-2024 [place]n 56139.0 m[IU]/mL High [facility] Comment on above: Non-preg premeno <=5 Postmeno <=8 Male <=3 If HCG results do not concur with clinical observations, additional testing to confirm results is recommended. Interpretation and review of laboratory results Abnormal [facility] TYPE AND SCREENon 04-27-2024 ABO and Rh group Nom (Bld) Blood group A Rh(D) positive [facility] Arm Band Number [id number] [facility] Blood Bank Sample Expiration 04/30/2024,2359 [facility] Blood group antibodies identified Nom Negative [facility] Type + Screenon 04-27-2024 Type + Screen Sample Expiration 04/30/2024,2359 Arm Band Number [id number] ABO/Rh(D) A POSITIVE Antibody Screen NEGATIVE Normal [facility] Comment on above: Performed By: #### T YS #### [facility] [address] [place] [address] Asphalt Heater Tender: Gal Katz MD US OB LESS THAN [...] Onur Mack MD 04/27/24 Final result Normal [facility] Single viable intrauterine with an estimated gestational age of 7 weeks 2 days and an estimated date of delivery of 12/12/2024 with no gross abnormality seen. Normal size right ovary with normal blood flow documented to the ovary and no ovarian masses seen. Nonvisualization of the left ovary which is probably obscured due to overlying bowel gas No adnexal mass or free fluid. [facility] RIS CONSOLIDATED EXAMINATION: FIRST TRIMESTER OBSTETRIC ULTRASOUND 04/27/2024 [...] or free fluid is seen. [facility] Onur Dockery MD - 04/27/2024 EXAMINATION: FIRST TRIMESTER OBSTETRIC [...] gas No adnexal mass or free fluid. [facility] Radiology Study observation (narrative) [facility] US OB LESS THAN 14 WEEKS SIN GLE OR FIRST GESTATION W DOPPLEROrdered By: Onur Mack on 04-27-2024 [facility] Work Phone: Urinalysis w/ Microon 2024 Bacteria 1+ Abnormal NONE [facility] Comment on above: Performed By: #### U [facility] #### [facility] [address] [place] [address] Asphalt Heater Tender: Gal Katz MD Bilirubin, SemiQt,Ur Negative Normal NEG [facility] Comment on above: Performed By: #### U AMIC #### [facility] [address] [place] [address] Asphalt Heater Tender: Gal Katz MD Blood, Urine 1+ Abnormal NEG [facility] Comment on above: Performed By: #### U AMIC #### [facility] [address] [place] [address] Asphalt Heater Tender: Gal Katz MD Clarity (U) SLIGHTLY CLOUDY Abnormal [facility] Comment on above: Performed By: #### U AMIC #### [address] [place] [address] Asphalt Heater Tender: Gal Katz MD Color (U) Yellow Normal YEL [facility] Comment on above: Performed By: #### U AMIC #### [address] [place] [address] Asphalt Heater Tender: Gal Katz MD Epithelial cells LM Ql (Urine sed) 20 TO 50 Normal 0-25 [facility] Comment on above: Performed By: #### U AMIC #### [address] [place] [address] Asphalt Heater Tender: Gal Katz MD Glucose Ql (U) Negative Normal NEG [facility] Comment on above: Performed By: #### U AMIC #### [facility] [address] [place] [address] [place] [address] Asphalt Heater Tender: Gal Katz MD Ketones Ql (U) Negative Normal NEG [facility] Comment on above: Performed By: #### U AMIC #### [address] [place] [address] Asphalt Heater Tender: Gal Katz MD Leukocyte esterase Test strip Ql (U) Negative Normal NEG [facility] Comment on above: Performed By: #### U AMIC #### [facility] [address] [place] [address] [place] [address] Asphalt Heater Tender: Gal Katz MD Nitrite,Ur Negative Normal NEG [facility] Comment on above: Performed By: #### U AMIC #### [facility] [address] [place], [place] [id number] Asphalt Heater Tender: Gal Katz MD PH,Ur 6.0 Normal 5.0-9.0 [facility] Comment on above: Performed By: #### U AMIC #### [facility] [address] [place] [address] Asphalt Heater Tender: Gal Katz MD Protein Ql (U) Negative Normal NEG [facility] Comment on above: Performed By: #### U AMIC #### [facility] [address] [place] [address] Asphalt Heater Tender: Gal Katz MD Spec. [place],Ur 1.025 High 1.010-1.020 [facility] Comment on above: Performed By: #### U AMIC #### [facility] [address] [place] [address] Asphalt Heater Tender: Gal Katz MD Urine RBC's 2 TO 5 Normal 0-2 [facility] Comment on above: Performed By: #### U AMIC #### [facility] [address] [place] [address] Asphalt Heater Tender: Gal Katz MD Urine WBC's 2 TO 5 Normal 0-5 [facility] Comment on above: Performed By: #### U AMIC #### [facility] [address] [place] [address] Asphalt Heater Tender: Gal Katz MD Urobilinogen,Ur Normal Normal 0.0-1.0 [facility] Comment on above: Performed By: #### U AMIC #### [facility] [address] [place], [place] [id number] Asphalt Heater Tender: Gal Katz MD Urinalysis with Microscopico n 04-27-2024 Bacteria LM Ql (Urine sed) 1+ Abnormal None [facility] Bilirubin Ql (U) Negative NEGATIVE [facility] Clarity (U) SLIGHTLY CLOUDY Abnormal Clear [facility] Color (U) Yellow Yellow [facility] Epithelial cells LM.HPF (Urine sed) [#/Area] 20 TO 50 [facility] Glucose Test strip (U) [Mass/Vol] Negative NEGATIVE mg/dL [facility] Hemoglobin Auto test strip Ql (U) 1+ Abnormal NEGATIVE [facility] Interpretation and review of laboratory results Abnormal [facility] Ketones (U) [Mass/Vol] Negative NEGAT ROSS mg/dL [facility] Leukocyte esterase Test strip Ql (U) Negative NEGATIVE [facility] Nitrite Ql (U) Negative NEGATIVE [place] [facility] pH (U) 6.0 [pH] 5.0 - 9.0 [facility] [facility] Protein (U) [Mass/Vol] Negative NEGAT ROSS mg/dL [facility] RBC LM.HPF (Urine sed) [#/Area] [address] [facility] Specific gravity (U) [Rel density] 1.025 High 1.010 - 1.[address] [facility] Urobilinogen Qn (U) Normal 0.0 - 1. 0 EU/dL [facility] WBC LM.HPF (Urine sed) [#/Area] [address] [facility] HCG ( test) Ql (U)o n 09-03-2023 Beta HCG ( test) Ql (U) Negative Normal NEG [facility] Comment on above: Performed By: #### 2 106-3 #### [facility] ([id number]) [address] [place] [address], [place] [address] Surgical Pathologyon 024 Surgical Pathology Normal [facility] Comment on above: Result Comment: [facility] [address] [place] [address] Surgical Pathology Consultation Patient Name:SAPNA SERRANO:1995 (Age: 28)Gender:FTaken:09/03/2023eported:09/07/2023hysician(s):Haja Osullivan MD ([phone])Copy To: Rec. #:[id number]: #[id number] Final Pathologic Diagnosis Sigmoid colon biopsies: Unremarkable colonic mucosa. No colitis, granuloma or dysplasia identified. No microscopic colitis or inflammatory bowel disease identified. Report Electronically Signed Out ssi/09/07/2023Suharish Hayes M.[place]. [place] [address], License number: [id number]. Clinical History Rectal bleeding. Gross Description Received in formalin labeled JEREMY, sigmoid BX are eight light cortes soft tissue bits, 0.2-0.4 cm.The specimen is filtered and entirely submitted in a single cassette. (1, ns, [id number],m3) DM. dm/09/04/2023O Specimen(s) Received Sigmoid biopsy Fee Codes(s): 1; 98046 CHLAMYDIA/GC PCR, FLon 08-09 CHLAMYDIA/GC PCR, FL [...] are dependent on adequate specimen collection. Normal [facility] Comment on above: Performed By: #### C GT #### [facility] ([id number]) [address] [place] [address], [place] [address] [facility] ([id number]) [address] [place] [address], [address] [place] [address] Cytologyon 08-10-2023 Cytology Normal [facility] Comment on above: Result Comment: [facility] [address] [place] [address] Gynecologic Cytology Consultation Patient Name:SAPNA SERRANO:1995 (Age: 28)Gender:FTaken:4Reported:08/26/2023hysician(s):Claire Kat M.D. ([phone])Copy To: Rec. #:[id number]: #[id number] Final Cytologic Interpretation ThinPrep Pap Test (Cervical): Satisfactory for evaluation. A transformation zone component is present. NEGATIVE FOR INTRAEPITHELIAL LESION OR MALIGNANCY. Shift in daniella suggestive of bacterial vaginosis. [facility]/08/26/2023 Interpretation performed at [facility], [address] [place] [address], License number: [id number]. Electronically Signed Out By JOSUÉ Kimble(ASCP) Date of Last Menstrual Period: 07/13/23 Other Clinical Conditions: Previous abnormal pap Z01.419 Guest Associate exam wo/abn findings Source of Specimen ThinPrep Pap Test (Cervical) Thin Prep Pap (AGRICULTURAL PRODUCE COMMISSION AGENT) Fee Code(s): G0145 The Pap test is a screening test with an inherent, but low, probability of error. The Pap test is primarily effective for the diagnosis and prevention of squamous cell carcinoma. Regular screening is critical for prevention. ThinPrep liquid-based slides, which meet the Senior Mechanical Engineer criteria for automated screening, have been screened by the ThinPrep Imaging System (as of 12/20/06) along with an additional manual rescreening by a commodities broker and, if indicated, by a pathologist. HIGH RISK HPV W/GENOon 08-09 HPV 31+33+35+39+45+51+52+5 6+58+59+66+68 DNA ALLISON+probe Ql (Cvx) HPV SPECIMEN TYPE ThinPrep HPV 16 Negative (qualifier value) HPV 18 Negative (qualifier value) OTHER HIGH RISK HPV Negative (qualifier value) HPV types 31,33,35,39,45,52,56 ,58,59,66 and 68 DNA were undetectable. Normal [facility] Comment on above: Performed By: #### 7 1431-1 #### [facility] ([id number]) [address] [facility], [place] [address] [facility] ([id number]) [address] [facility], [address] [place] [address] POCT , urineon 05-0 Beta HCG ( test) Ql (U) Negative [facility] Interpretation and review of laboratory results Normal [facility] Vital Signs Date Time Vital Sign Value Performing Clinician Facility 11-17-2024 14:24-0400 Body mass index (BMI) [Ratio] 37.62 kg/m2 Giacomo Horne MD Work Phone: [facility] 11-17-2024 14:24-0400 Body weight 99.47 kg Giacomo Horne MD Work Phone: [facility] 11-17-2024 14:24-0400 Diastolic blood pressure 70 mm[Hg] Giacomo Horne MD Work Phone: [facility] 11-17-2024 14:24-0400 Systolic blood pressure 126 mm[Hg] Giacomo Horne MD Work Phone: [facility] 11-03-2024 13:18-0400 Body mass index (BMI) [Ratio] 36.68 kg/m2 Tiffany Ornelas MD Work Phone: [facility] 11-03-2024 13:18-0400 Body weight 96.98 kg Tiffany Ornelas MD Work Phone: [facility] 10-30-2024 11:15-0400 Body height 162.6 cm Angela Gardner MD Work Phone: [facility] 10-30-2024 11:15-0400 Body mass index (BMI) [Ratio] 37.13 kg/m2 Angela Gardner MD Work Phone: [facility] 10-30-2024 11:15-0400 Body weight 98.16 kg Angela Gardner MD Work Phone: [facility] 10-30-2024 11:15-0400 Diastolic blood pressure 82 mm[Hg] Angela Gardner MD Work Phone: [facility] 10-30-2024 11:15-0400 Heart rate 91 /min Angela Gardner MD Work Phone: [facility] 10-30-2024 11:15-0400 Systolic blood pressure 122 mm[Hg] Angela Gardner MD Work Phone: [facility] 10-23-2024 14:04-0400 Diastolic blood pressure 64 mm[Hg] [address] 10-23-2024 14:04-0400 Heart rate 88 /min [address] 10-23-2024 14:04-0400 Systolic blood pressure 132 mm[Hg] [address] 10-19-2024 14:01-0400 Body mass index (BMI) [Ratio] 36.03 kg/m2 Rain Lafyatis DO Work Phone: [facility] 10-19-2024 14:01-0400 Body weight 95.25 kg Rain Lafyatis DO Work Phone: [facility] 10-19-2024 14:01-0400 Diastolic blood pressure 68 mm[Hg] Rain Lafyatis DO Work Phone: [facility] 10-19-2024 14:01-0400 Systolic blood pressure 122 mm[Hg] Rain Lafyatis DO Work Phone: [facility] 10-17-2024 14:37-0400 Body mass index (BMI) [Ratio] 36.05 kg/m2 Jocy YOUNG Work Phone: [facility] 10-17-2024 14:37-0400 Body weight 95.25 kg Jocy YOUNG Work Phone: [facility] 10-17-2024 14:37-0400 Diastolic blood pressure 78 mm[Hg] Jocy YOUNG Work Phone: [facility] 10-17-2024 14:37-0400 Systolic blood pressure 124 mm[Hg] Jocy YOUNG Work Phone: [facility] 10-17-2024 12:13-0400 Body height 162.56 cm Armen Furlong DO Work Phone: [facility] 10-17-2024 12:13-0400 Body mass index (BMI) [Ratio] 35.9 kg/m2 Armen Furlong DO Work Phone: [facility] 10-17-2024 12:13-0400 Body temperature 98.9 [degF] Armen Furlong DO Work Phone: [facility] 10-17-2024 12:13-0400 Body weight 94.97 kg Armen Furlong DO Work Phone: [facility] 10-17-2024 12:13-0400 Diastolic blood pressure 82 mm[Hg] Armen Furlong DO Work Phone: [facility] 10-17-2024 12:13-0400 Heart rate 96 /min Armen Furlong DO Work Phone: [facility] 10-17-2024 12:13-0400 Respiratory rate 19 /min Armen Furlong DO Work Phone: [facility] 10-17-2024 12:13-0400 SaO2% (BldA) [Mass fraction] 98 % Armen Furlong DO Work Phone: [facility] 10-17-2024 12:13-0400 Systolic blood pressure 129 mm[Hg] Armen Furlong DO Work Phone: [facility] 10-03-2024 09:04-0400 Body height 162.6 cm Curtis Jeannine DO Work Phone: [facility] 10-03-2024 09:00-0400 Body mass index (BMI) [Ratio] 34.84 kg/m2 Curtis Jeannine DO Work Phone: [facility] 10-03-2024 09:00-0400 Body weight 92.08 kg Curtis Jeannine DO Work Phone: [facility] 10-03-2024 09:00-0400 Diastolic blood pressure 74 mm[Hg] Curtis Jeannine DO Work Phone: [facility] 10-03-2024 09:00-0400 Systolic blood pressure 122 mm[Hg] Curtis Jeannine DO Work Phone: [facility] 09-29-2024 16:29-0400 Diastolic blood pressure 72 mm[Hg] Edil Snow MD Work Phone: [facility] 09-29-2024 16:29-0400 Heart rate 83 /min Edil Snow MD Work Phone: [facility] 09-29-2024 16:29-0400 Systolic blood pressure 125 mm[Hg] Edil Snow MD Work Phone: [facility] 09-10-2024 23:35-0400 Diastolic blood pressure 73 mm[Hg] Victorino [facility]breau DO [facility] 09-10-2024 23:35-0400 Heart rate 75 /min Victorino D'Abreau DO [facility] Phone[facility] 09-10-2024 23:35-0400 Systolic blood pressure 127 mm[Hg] Victorino D'Abreau DO [facility] Phone[facility] 09-10-2024 22:22-0400 Body temperature 98.1 [degF] Victorino D'Abreau DO [facility] 09-10-2024 22:22-0400 Respiratory rate 16 /min Victorino D'Abreau DO Work Phone: [facility] 09-10-2024 22:22-0400 SaO2% (BldA) [Mass fraction] 98 % Victorino Gallowayeau DO Work Phone: [facility] 08-30-2024 10:38-0400 Body weight 88.91 kg Jocy YOUNG Work Phone: [facility] 08-30-2024 10:38-0400 Diastolic blood pressure 74 mm[Hg] Jocy YOUNG Work Phone: [facility] 08-30-2024 10:38-0400 Systolic blood pressure 130 mm[Hg] Jocy YOUNG Work Phone: [facility] 08-14-2024 10:57-0400 Body weight 87.91 kg Curtis Jeannine DO Work Phone: [facility] 08-14-2024 10:57-0400 Diastolic blood pressure 70 mm[Hg] Curtis Jeannine DO Work Phone: [facility] 08-14-2024 10:57-0400 Systolic blood pressure 116 mm[Hg] Curtis Jeannine DO Work Phone: [facility] 08-01-2024 13:31-0400 Body weight 85.19 kg Curtis Jeannine DO Work Phone: [facility] 08-01-2024 13:31-0400 Diastolic blood pressure 70 mm[Hg] Curtis Jeannine DO Work Phone: [facility] 08-01-2024 13:31-0400 Systolic blood pressure 120 mm[Hg] Curtis Jeannine DO Work Phone: [facility] 07-28-2024 09:19-0400 Body height 162.6 cm Lyndsey Burns MD Work Phone: [facility] 07-28-2024 09:19-0400 Body mass index (BMI) [Ratio] 32.63 kg/m2 Lyndsey Burns MD Work Phone: [facility] 07-28-2024 09:19-0400 Body weight 86.27 kg Lyndsey Burns MD Work Phone: [facility] 07-28-2024 09:19-0400 Diastolic blood pressure 72 mm[Hg] Lyndsey Burns MD Work Phone: [facility] 07-28-2024 09:19-0400 Heart rate 84 /min Lyndsey Burns MD Work Phone: [facility] 07-28-2024 09:19-0400 Systolic blood pressure 115 mm[Hg] Lyndsey Burns MD Work Phone: [facility] 07-06-2024 09:09-0400 Body weight 84.73 kg Jocy YOUNG Work Phone: [facility] 07-06-2024 09:09-0400 Diastolic blood pressure 72 mm[Hg] Jocy YOUNG Work Phone: [facility] 07-06-2024 09:09-0400 Systolic blood pressure 120 mm[Hg] Jocy YOUNG Work Phone: [facility] 06-08-2024 09:41-0500 Body weight 83.83 kg Curtis Jeannine DO Work Phone: [facility] 06-08-2024 09:41-0500 Diastolic blood pressure 70 mm[Hg] Curtis Jeannine DO Work Phone: [facility] 06-08-2024 09:41-0500 Systolic blood pressure 120 mm[Hg] Curtis Jeannine DO Work Phone: [facility] 05-09-2024 14:22-0500 Body weight 86.09 kg Curtis Jeannine DO Work Phone: [facility] 05-09-2024 14:22-0500 Diastolic blood pressure 72 mm[Hg] Curtis Jeannine DO Work Phone: [facility] 05-09-2024 14:22-0500 Systolic blood pressure 118 mm[Hg] Curtis Jeannine DO Work Phone: [facility] 05-05-2024 10:32-0500 Body weight 83.52 kg Noms Nurse [facility] 05-05-2024 10:32-0500 Diastolic blood pressure 78 mm[Hg] [facility] Nurse [facility] 05-05-2024 10:32-0500 Systolic blood pressure 120 mm[Hg] [facility] Nurse [facility] 04-27-2024 20:58-0500 SaO2% (BldA) [Mass fraction] 98 % Zully Vallejo MD Work Phone: [employer] 04-27-2024 17:53-0500 Body height 162.6 cm Zully Vallejo MD Work Phone: [facility] 04-27-2024 17:53-0500 Body mass index (BMI) [Ratio] 29.18 kg/m2 Zully Vallejo MD Work Phone: [facility] 04-27-2024 17:53-0500 Body temperature 98.8 [degF] Zully Vallejo MD Work Phone: [facility] 04-27-2024 17:53-0500 Body weight 77.11 kg Zully Vallejo MD Work Phone: [facility] 04-27-2024 17:53-0500 Diastolic blood pressure 93 mm[Hg] Zully Vallejo MD Work Phone: [facility] 04-27-2024 17:53-0500 Heart rate 90 /min Zully Vallejo MD Work Phone: [facility] 04-27-2024 17:53-0500 Respiratory rate 20 /min Zully Vallejo MD Work Phone: [facility] 04-27-2024 17:53-0500 Systolic blood pressure 150 mm[Hg] Zully Vallejo MD Work Phone: [facility] 01-27-2024 09:54-0400 Body height 162.[address] DO Work Phone: [facility] [employer] 01-27-2024 09:54-0400 Body mass index (BMI) [Ratio] 28.15 kg/m2 Armen Furlong DO Work Phone: [facility] [employer] 01-27-2024 09:54-0400 Body temperature 97.7 [degF] Armen Furlong DO Work Phone: [facility] [employer] 01-27-2024 09:54-0400 Body weight 74.39 kg Armen Furlong DO Work Phone: [facility] [employer] 01-27-2024 09:54-0400 Diastolic blood pressure 72 mm[Hg] Armen Furlong DO Work Phone: [facility] [employer] 01-27-2024 09:54-0400 Heart rate 89 /min Armen Furlong DO Work Phone: [facility] [employer] 01-27-2024 09:54-0400 Respiratory rate 18 /min Armen Furlong DO Work Phone: [facility] [employer] 01-27-2024 09:54-0400 SaO2% (BldA) [Mass fraction] 99 % Armen Furlong DO Work Phone: [facility] [employer] 01-27-2024 09:54-0400 Systolic blood pressure 118 mm[Hg] Armen Furlong DO Work Phone: [facility] 10-27-2023 10:26-0400 Body height 162.6 cm Armen Furlong DO Work Phone: [facility] [employer] 10-27-2023 10:26-0400 Body mass index (BMI) [Ratio] 29.94 kg/m2 Armen Furlong DO Work Phone: [facility] 10-27-2023 10:26-0400 Body temperature 97.81 [degF] Armen Masoodlong DO Work Phone: [facility] 10-27-2023 10:26-0400 Body weight 79.11 kg Armen Furlong DO Work Phone: [facility] 10-27-2023 10:26-0400 Diastolic blood pressure 60 mm[Hg] Armen Furlong DO Work Phone: [facility] 10-27-2023 10:26-0400 Heart rate 71 /min Armen Furlong DO Work Phone: [facility] 10-27-2023 10:26-0400 SaO2% (BldA) [Mass fraction] 99 % Armen Furlong DO Work Phone: [facility] 10-27-2023 10:26-0400 Systolic blood pressure 100 mm[Hg] Armen Furlong DO Work Phone: [facility] 09-27-2023 10:05-0400 Body height 162.6 cm Armen Furlong DO Work Phone: [facility] 09-27-2023 10:05-0400 Body mass index (BMI) [Ratio] 30.59 kg/m2 Armen Furlong DO Work Phone: [facility] 09-27-2023 10:05-0400 Body temperature 97.81 [degF] Armen Furlong DO Work Phone: [facility] 09-27-2023 10:05-0400 Body weight 80.83 kg Armen Furlong DO Work Phone: [facility] 09-27-2023 10:05-0400 Diastolic blood pressure 62 mm[Hg] Armen Furlong DO Work Phone: [facility] 09-27-2023 10:05-0400 Heart rate 81 /min Armen Furlong DO Work Phone: [facility] 09-27-2023 10:05-0400 SaO2% (BldA) [Mass fraction] 99 % Armen Furlong DO Work Phone: [facility] 09-27-2023 10:05-0400 Systolic blood pressure 100 mm[Hg] Armen Furlong DO Work Phone: [facility] 09-01-2023 11:00-0400 Body height 162.6 cm [facility] 1 [facility] 09-01-2023 11:00-0400 Body mass index (BMI) [Ratio] 31.58 kg/m2 [facility] 1 [facility] 09-01-2023 11:00-0400 Body weight 83.46 kg [facility] 1 [facility] 08-25-2023 09:33-0400 Body height 162.6 cm Armen Furlong DO Work Phone: [facility] 08-25-2023 09:33-0400 Body mass index (BMI) [Ratio] 31.72 kg/m2 Armen Furlong DO Work Phone: [facility] 08-25-2023 09:33-0400 Body temperature 98.71 [degF] Armen Furlong DO Work Phone: [facility] 08-25-2023 09:33-0400 Body weight 83.83 kg Armen Furlong DO Work Phone: [facility] 08-25-2023 09:33-0400 Diastolic blood pressure 62 mm[Hg] Armen Furlong DO Work Phone: [facility] 08-25-2023 09:33-0400 Heart rate 89 /min Armen Furlong DO Work Phone: [facility] 08-25-2023 09:33-0400 Respiratory rate 18 /min Armen Furlong DO Work Phone: [facility] 08-25-2023 09:33-0400 SaO2% (BldA) [Mass fraction] 98 % Armen Furlong DO Work Phone: [facility] 08-25-2023 09:33-0400 Systolic blood pressure 98 mm[Hg] Armen Street DO Work Phone: [facility] 08-10-2023 09:46-0400 Body height 162.6 cm Claire Kat MD Work Phone: [facility] 08-10-2023 09:46-0400 Body mass index (BMI) [Ratio] 33.3 kg/m2 Claire Kat MD Work Phone: [facility] 08-10-2023 09:46-0400 Body weight 88 kg Claire Kat MD Work Phone: [facility] 08-10-2023 09:46-0400 Diastolic blood pressure 70 mm[Hg] Claire Kat MD Work Phone: [facility] 08-10-2023 09:46-0400 Systolic blood pressure 128 mm[Hg] Claire Kat MD Work Phone: [facility] Encounters Encounter Date Encounter Type Care Provider Facility Start: 11-17-2024 End: 11-17-2024 Patient encounter procedure Giacomo Horne MD Work Phone: [facility] Comment on above: GA: 36w3d Start: 11-17-2024 End: 11-17-2024 ambulatory [facility] Start: 11-16-2024 End: 11-17-2024 Clinisync Result Encounter Curtis Jeannine DO Work Phone: [facility] Unsolicited Start: 11-16-2024 End: 11-17-2024 Clinisync Result Encounter Curtis Jeannine DO Work Phone: [facility] Unsolicited Start: 11-14-2024 End: 11-14-2024 ambulatory [facility] Start: 11-09-2024 End: 11-09-2024 Clinisync Result Encounter Curtis Jeannine DO Work Phone: [facility] Unsolicited Start: 11-09-2024 End: 11-09-2024 Clinisync Result Encounter Curtis Jeannine DO Work Phone: [facility] Unsolicited Start: 11-07-2024 End: 11-07-2024 ambulatory [facility] Start: 11-03-2024 End: 11-03-2024 ambulatory [facility] Start: 11-03-2024 End: 11-03-2024 Subsequent care visit Tiffany Ornelas MD Work Phone: [facility] Comment on above: GA: 34w3d Start: 11-02-2024 End: 11-02-2024 Clinisync Result Encounter Crutis Jeannine DO Work Phone: [facility] [...] Gardner MD Work Phone: [facility] Comment on above: Cystic fibrosis fletcher ier, antepartum (Primary Dx); Maternal care for other (suspected) abnormality and damage, gastrointestinal anomalies, not applicable or unspecified; Overweight Start: 10-30-2024 End: 10-30-2024 Orders Only Jocy Maradiaga LPN [facility] Comment on above: Supervision of high risk in third trimester (Primary Dx); Cystic fibrosis carrier, antepartum; Abnormal genetic test during ; Maternal care for other (suspected) abnormality and damage, gastrointestinal anomalies, not applicable or unspecified; Cystic fibrosis carrier; Family history of developmental delay; Family history of spina bifida Start: 10-26-2024 End: 10-27-2024 Clinisync Result Encounter Curtis Busbyo DO Work Phone: [facility] Unsolicited Start: 10-26-2024 End: 10-27-2024 Clinisync Result Encounter Curtis Busbyo DO Work Phone: [facility] Unsolicited Start: 10-24-2024 End: 10-24-2024 Telephone encounter Lyndsey Burns MD Work Phone: [facility] Start: 10-23-2024 End: 10-23-2024 ambulatory [facility] Comment on above: Cystic fibrosis fletcher ier, antepartum (Primary Dx); Supervision of high risk in third trimester; Overweight Start: 10-19-2024 End: 10-19-2024 Clinisync Result Encounter Curtis Busbyo DO Work Phone: [facility] Unsolicited Start: 10-19-2024 End: 10-19-2024 Clinisync Result Encounter Curtis Paez DO Work Phone: [facility] Unsolicited Start: 10-19-2024 End: 10-19-2024 ambulatory Rain Iverson DO Work Phone: [facility] Comment on above: GA: 32w2d Start: 10-17-2024 End: 10-17-2024 flow sheet Jocy YOUNG Work Phone: [facility] Comment on above: Third trimester preg melissa ([facility]); 32 weeks gestation of ([facility]); H/O LEEP; Cystic fibrosis carrier, antepartum ([facility]); HSV infection Start: 10-17-2024 End: 10-17-2024 Bamboo flowsheet Jocy YOUNG Work Phone: [facility] Start: 10-17-2024 End: 10-17-2024 Bamboo flowsheet Jocy YOUNG Work Phone: [facility] Start: 10-17-2024 End: 10-17-[address] DO Work Phone: [facility] Work Phone: Start: 10-17-2024 End: 10-17-2024 Patient encounter procedure Esther Bunch MATH TEACHER [facility] Work Phone: Start: 10-13-2024 End: 10-13-2024 Orders Only Miriam Joseph RN [facility] Comment on above: Abnormal genetic jono t during (Primary Dx); Maternal care for other (suspected) abnormality and damage, gastrointestinal anomalies, not applicable or unspecified; Cystic fibrosis carrier Start: 10-12-2024 End: 10-12-2024 [facility] Start: 10-12-2024 End: 10-13-2024 Clinisync Result Encounter Curtis Jeannine DO Work Phone: [facility] External [facility] Unsolicited Start: 10-12-2024 End: 10-13-2024 Clinisync Result Encounter Curtis Jeannine DO Work Phone: [facility] External Department Unsolicited Start: 10-10-2024 End: 10-10-2024 Chart abstracting Lyric Sánchez RN [place] [facility] Women's Services Start: 10-05-2024 End: 10-05-2024 [facility] Start: 10-04-2024 End: 10-04-2024 Clinisync Result Encounter Curtis Jeannine DO Work Phone: [facility] External Department Unsolicited Start: 10-04-2024 End: 10-04-2024 Clinisync Result Encounter Curtis Jeannine DO Work Phone: [facility] External Department Unsolicited Start: 10-03-2024 End: 10-03-2024 flow sheet Curtis Jeannine DO Work Phone: [facility] Comment on above: Third trimester preg melissa (HHS-HCC); Cystic fibrosis carrier, antepartum ([facility]-HCC); Moderate episode of recurrent major depressive disorder (HCC); History of loop electrosurgical excision procedure (LEEP) of cervix affecting , antepartum (HHS-HCC); HSV infection; 30 weeks gestation of (HHS-HCC); Maternal care for other (suspected) abnormality and damage, gastrointestinal anomalies, not applicable or unspecified ([facility]-HCC) Start: 09-29-2024 End: 09-29-[address] [facility] Start: 09-29-2024 End: 09-29-2024 Office outpatient visit 25 minutes Edil Snow MD Work Phone: Maternal- Medicine at [facility] Comment on above: 29 weeks gestation o f (Primary Dx); Cystic fibrosis carrier; Maternal care for other (suspected) abnormality and damage, gastrointestinal anomalies, not applicable or unspecified Start: 09-29-2024 End: 09-29-2024 ambulatory [facility] Start: 09-25-2024 End: 09-25-2024 Clinisync Result [...] above: Anxiety, generalized (Primary Dx); Second trimester ([facility]-HCC); 27 weeks gestation of ([facility]-HCC); Cystic fibrosis carrier, antepartum ([facility]-HCC) Start: 09-18-2024 End: 09-18-2024 Bamboo flowsheet Curtis Jeannine DO Work Phone: [facility] Start: 09-18-2024 End: 09-18-2024 Bamboo flowsheet Curtis Jeannine DO Work Phone: [facility] Start: 09-15-2024 End: 09-15-2024 Telephone encounter Miriam Joseph RN Maternal- Medicine at [facility] Start: 09-10-2024 End: 09-11-2024 [facility]ulatory [facility] Start: 09-10-2024 End: 09-11-2024 Subsequent hospital visit by physician Victorino Christie DO Work Phone: [facility] Labor [facility] Delivery Start: 09-10-2024 Emergency department patient visit ARMEN [facility] Start: 09-07-2024 End: 09-07-2024 Office outpatient new 45 minutes Rashida Alvarez MD Work Phone: [facility] Comment on above: Cystic fibrosis fletcher ier (Primary Dx); Encounter for consultation Start: 09-07-2024 End: 09-07-2024 Orders Only Miriam Joseph RN Maternal- Medicine at [facility] Comment on above: Cystic fibrosis fletcher [...] gestation of Start: 08-25-2024 End: 08-25-2024 ambulatory [facility] Start: 08-18-2024 End: 08-18-2024 Orders Only Barbra Samuel RN Maternal- Medicine at [facility] Start: 08-17-2024 End: 08-18-2024 Telephone encounter Rachel DUVAL Work Phone: Maternal- Medicine at [facility] Start: 08-14-2024 End: 08-14-2024 Patient encounter [...] Burns MD Work Phone: Maternal- Medicine at [facility] Comment on above: Cystic fibrosis fletcher ier (Primary Dx) Start: 07-28-2024 End: 07-28-2024 Orders Only iMriam Joseph RN Maternal- Medicine at [facility] Comment on above: Cystic fibrosis fletcher ier (Primary Dx); Abnormal genetic test during Start: 07-12-2024 End: 07-12-2024 Telephone encounter Rachel Rodriguez [facility] Work Phone: Maternal- Medicine at [facility] Start: 07-11-2024 End: 07-11-2024 Bamboo flowsheet Emi Bronson [facility] Work Phone: [facility] Start: 07-11-2024 End: 07-11-2024 Bamboo flowsheet Emi Bronson [facility] Work Phone: [facility] Start: 07-11-2024 End: 07-11-2024 Clinical Support Emi Bronson [facility] Work Phone: [facility] Comment on above: Moderate episode [...] Patient encounter procedure Jocy YOUNG Work Phone: [facility] Start: 07-06-2024 End: 07-06-2024 Periodic preventive [...] Telephone encounter Lara Lovelace Maternal- Medicine at [facility] Start: 06-20-2024 End: 06-20-2024 Telemedicine consultation with patient Rachel Rodriguez [facility] Work Phone: Maternal- Medicine at [facility] Comment on above: Cystic fibrosis fletcher ier (Primary Dx); Abnormal genetic test during ; Family history of developmental delay; Family history of spina bifida Start: 06-20-2024 End: 06-20-[address] [facility] Start: 06-16-2024 End: 06-16-2024 Chart abstracting Scanning Provider External Maternal- Medicine at [facility] Start: 06-08-2024 End: 06-08-2024 Bamboo flowsheet [...] 05-24-2024 End: 05-24-2024 Clinical Support Emi Bronson [facility] Work Phone: [facility] Comment on above: Moderate episode [...] Start: 05-03-2024 End: 05-03-2024 Telephone encounter Armen Steele Princess DO Work Phone: [facility] Start: 05-02-2024 End: 05-02-2024 Bamboo flowsheet [facility] Work Phone: [facility] Start: 05-02-2024 End: 05-02-2024 Bamboo flowsheet Emi Bronson [facility] Work Phone: [facility] Start: 05-02-2024 End: 05-02-2024 Clinical Support Emi Bronson [facility] Work Phone: [facility] Comment on above: Moderate episode of recurrent major depressive disorder (CMS/HCC); ALICIA (generalized anxiety disorder) (CMS/HCC) Start: 04-27-2024 End: 04-27-2024 Emergency department patient visit Zully Vallejo MD Work Phone: [facility] Comment on above: Abdominal cramping ( Primary Dx); Arm contusion, right, initial encounter Start: 04-18-2024 End: 04-18-2024 Orders Only Aicha Richard LPN [facility] Comment on above: Positive t est (Primary Dx) Start: 01-27-2024 End: 01-27-2024 Office outpatient visit 15 minutes Armen Correiaandra DO Work Phone: [facility] Internal Medicine - Family Medicine Comment on above: Current episode of m ajor depressive disorder without prior episode, unspecified depression episode severity (Primary Dx); Overweight Start: 01-27-2024 End: 01-27-[address] [facility] Start: 01-21-2024 End: 01-21-2024 Refill Armen Correiaandra DO Work Phone: [facility] - Family [facility] Start: 12-13-2023 End: 12-13-2023 Bamboo flowsheet Emi Jerryro [facility] Work Phone: [facility] Start: 12-13-2023 End: 12-13-2023 Bamboo flowsheet Emi Munson Aiyana LPCC Work Phone: [facility] Start: 12-13-2023 End: 12-13-2023 Clinical Support Emi Bronson [facility] Work Phone: [facility] Comment on above: Moderate episode of recurrent major depressive disorder (HCC) ([facility]/HCC); ALICIA (generalized anxiety disorder) (CMS/HCC) Start: 11-29-2023 End: 11-29-2023 Bamboo flowsheet Emi Bronson LP[facility] Work Phone: [facility] Start: 11-29-2023 End: 11-29-2023 Bamboo flowsheet Emi Munson Aiyana LPCC Work Phone: [facility] Start: 11-29-2023 End: 11-29-2023 Clinical Support Emi Bronson [facility] Work Phone: [facility] Comment on above: Moderate episode of recurrent major depressive disorder (HCC) ([facility]/HCC); ALICIA (generalized anxiety disorder) (CMS/HCC) Start: 10-27-2023 End: 10-27-2023 ambulatory [place] Cedric [facility] Start: 10-27-2023 End: 10-27-2023 Office outpatient visit [address] DO Work Phone: [facility] Internal Medicine - Family Medicine Comment on above: Overweight (Primary Dx); Anxiety; Depression, unspecified depression type; Onychomycosis Start: 10-18-2023 End: 10-18-[address] DO [facility] Start: 10-03-2023 End: 10-04-[address] DO Work Phone: [facility] - Family [facility] Comment on above: Class 1 obesity due to excess calories with body mass index (BMI) of 31.0 to 31.9 in adult, unspecified whether serious comorbidity present Start: 09-27-2023 End: 09-27-2023 Patient encounter status Armen Street DO Work Phone: [facility] Work Phone: Start: 09-27-2023 End: 09-27-2023 Periodic preventive med est patient 18-[address] DO Work Phone: [facility] Internal [facility] - Family Medicine Comment on above: Well adult health ch aashish (Primary Dx); Class 1 obesity due to excess calories without serious comorbidity with body mass index (BMI) of 31.0 to 31.9 in adult; Rectal bleeding; Onychomycosis; Benign skin lesion Start: 09-27-2023 End: 09-27-2023 [facility]ulatory [facility] [facility] Start: 09-27-2023 Encounter for genera l adult medical examination without abnormal findings [facility] Start: 09-03-2023 End: 09-04-2023 Evaluation and management of inpatient HAJA OSULLIVAN [facility] Start: 09-02-2023 End: 09-02-2023 ambulatory [facility] Pat Phone Call Provider 1 [facility] - Pre Admit Start: 09-01-2023 End: 09-01-2023 ambulatory [facility] Start: 08-25-2023 End: 08-25-2023 Office outpatient new 45 minutes [place] Cedric Evant DO Work Phone: [facility] - Family Medicine Comment on above: Rectal bleeding (Lucita sangeeta Dx); Mild major depression (CMS-HCC); Class 1 obesity due to excess calories with body mass index (BMI) of 31.0 to 31.9 in adult, unspecified whether serious comorbidity present Start: 08-10-2023 End: 08-10-2023 Encounter for gynecological examination (general) (routine) without abnormal findings Claire Kat MD Work Phone: [facility] Start: 08-10-2023 End: 08-10-2023 Initial preventive medicine new pt age 18-39yrs Claire Kat MD Work Phone: [facility] Comment on above: Encounter for gyneco logical examination without abnormal finding (Primary Dx); Screening for STD (sexually transmitted disease); Pap smear, as part of routine gynecological examination; Encounter for initial prescription of vaginal ring hormonal contraceptive Start: 08-10-2023 End: 08-10-2023 Patient encounter status Claire Kat MD Work Phone: [facility] Start: 08-10-2023 End: 08-10-2023 ambulatory CLAIRE KAT [facility] Start: 08-10-2023 Encounter for gynecological examination (general) (routine) without abnormal findings [facility] SHE[facility] Procedures Date Procedure Procedure Detail Performing Clinician Start: 11-16-2024 US OB BPP W NON-STRESS Curtis Jeannine DO Work Phone: Start: 11-09-2024 US OB BPP W NON-STRESS Cutris Jeannine DO Work Phone: Start: 11-03-2024 Iadna chlamydia trachomatis amplified probe tq Tiffany Ornelas MD Work Phone: Start: 11-02-2024 US OB BPP W NON-STRESS Curtis Jeannine DO Work Phone: Start: 11-01-2024 US OB CERVICAL LENGTH A simin Flori PA Work Phone: Start: 10-26-2024 US OB BPP W NON-STRESS Curtis Jeannine DO Work Phone: Start: 10-24-2024 nonstress test Hernandez damon Driver DO Work Phone: Start: 10-19-2024 US OB BPP W NON-STRESS Curtis Jeannine DO Work Phone: Start: 10-18-2024 Adult depression scr eening assessment Rain Iverson DO Work Phone: Start: 10-17-2024 Quick Strep (POC) Celio s Princess DO Work Phone: Start: 10-12-2024 US OB [...] Start: 07-05-2024 US OB CERVICAL LENGTH C oreidalia Paez DO Work Phone: Start: 06-08-2024 Urnls dip [...] Phone: Start: 01-27-2024 Follow-up visit Follow-up ARMEN G NATALIIAAZALEA Start: 10-27-2023 Adult depression scr eening assessment [...] [Identifier] in Cervix by Cyto stain Armen Correiaandra DO Work Phone: Plan of Treatment Date Care Activity Detail Author Start: 2068 Respiratory Syncytia l Virus (RSV) or age 60 yrs+ (1 - 1-dose 75+ series) Respiratory Syncytial Virus (RSV) or age 60 yrs+ (1 - 1-dose 75+ series) [facility] Start: 11-03-2034 DTaP,Tdap and Td Vaccines (3 - Td or Tdap) DTaP,Tdap and Td Vaccines (3 - Td or Tdap) [facility] Start: 11-03-2034 DTaP,Tdap and Td Vaccines (8 - Td or Tdap) DTaP,Tdap and Td Vaccines (8 - Td or Tdap) [facility] Start: 08-16-2028 DTaP,Tdap and Td Vaccines (2 - Td or Tdap) DTaP,Tdap and Td Vaccines (2 - Td or Tdap) [facility] Start: 08-16-2028 DTaP/Tdap/Td vaccine (2 - Td or Tdap) DTaP/Tdap/Td vaccine (2 - Td or Tdap) [facility] Start: 07-07-2027 Screening for malign ant neoplasm of cervix Pap Smear [facility] Start: 08-09-2026 Screening for malign ant neoplasm of cervix Pap Smear [facility] Start: 11-17-2025 Adult BMI Screening Adult BMI Screen [facility] Start: 11-17-2025 Tobacco Screening Tobacco Screening [facility] Start: 11-03-2025 Adult BMI Screening Adult BMI Screen ing [facility] Start: 11-03-2025 Tobacco Screening Tobacco Screening [facility] Start: 10-30-2025 Adult BMI Screening Adult BMI Screen ing [facility] Start: 10-30-2025 Tobacco Screening Tobacco Screening [facility] Start: 10-19-2025 Adult BMI Screening Adult BMI Screen ing [facility] Start: 10-19-2025 Tobacco Screening Tobacco Screening [facility] Start: 10-18-2025 Depression Screening Depression Scre ening [facility] Start: 10-13-2025 End: 10-13-2025 US MFM with or without consult US MFM with or without consult Imaging Routine Abnormal genetic test during Maternal care for other (suspected) abnormality and damage, gastrointestinal anomalies, not applicable or unspecified Cystic fibrosis carrier Expected: 10/13/2025 (Approximate), Expires: 10/13/2025 [employer] Work Phone: Comment on above: Expected: 10/13/2025 (Approximate), Expires: 10/13/2025 Start: 09-30-2025 Tobacco Screening Tobacco Screening [facility] Start: 09-07-2025 End: 09-07-2025 US MFM with or without consult US MFM with or without consult Imaging Routine Cystic fibrosis carrier Abnormal genetic test during Expected: 09/07/2025 (Approximate), Expires: 09/07/2025 [employer] Work Phone: Comment on above: Expected: 09/07/2025 (Approximate), Expires: 09/07/2025 Start: 07-28-2025 Adult BMI Screening Adult BMI Screen ing [facility] Start: 07-28-2025 Tobacco Screening Tobacco Screening [facility] Start: 07-28-2025 End: 07-28-2025 US MFM with or without consult US MFM with or without consult Imaging Routine Cystic fibrosis carrier Abnormal genetic test during Expected: 07/28/2025 (Approximate), Expires: 07/28/2025 [employer] Work Phone: Comment on above: Expected: 07/28/2025 (Approximate), Expires: 07/28/2025 Start: 02-24-2025 Tobacco Counseling Tobacco Counselin g [facility] Start: 01-26-2025 Adult BMI Screening Adult BMI Screen ing [facility] Start: 01-26-2025 Tobacco Screening Tobacco Screening [facility] Start: 12-04-2024 Influenza vaccination Influenza Vacc ine [facility] Start: 11-28-2024 End: 11-28-2024 Patient encounter procedure [facility] US Imaging Start: 11-24-2024 End: 11-24-2024 Patient encounter procedure 11/24/2024 2:45 PM EDT Routine [facility] Services - Women's Services [address] [place] [phone] Giacomo Horne MD [address] [place] [address], [address] [address] [facility] Start: 11-21-2024 End: 11-21-2024 Patient encounter procedure [facility] US Imaging Start: 11-17-2024 End: 11-17-2024 Patient encounter procedure 11/17/2024 2:30 PM EDT Routine [address] [place] [address] Giacomo Horne MD [address] [place] [address], [address] [address] [facility] Start: 11-14-2024 End: 11-14-2024 Patient encounter procedure 11/14/2024 3:30 PM EDT Appointment [facility] US Imaging [address] [place] [address] [facility] Imaging Start: 11-07-2024 End: 11-07-2024 Patient encounter procedure 11/07/2024 3:00 PM EDT Appointment [facility] US Imaging [address] [place] [phone] Angela Gardner MD [address], [address] [place] [address] [facility] US Imaging Start: 11-06-2024 End: 11-06-2024 Patient encounter procedure 11/06/2024 11:00 AM EDT Appointment [facility] Imaging [address] [place] [address] [facility] Imaging Start: 11-03-2024 Influenza vaccination Flu vaccine (S alisha Ended) [facility] Start: 11-03-2024 End: 11-03-2024 Patient encounter procedure 11/03/2024 1:[address] [facility] [address] [place] [address] Tiffany Ornelas MD [address] [facility] [place] [address] [facility] Start: 11-01-2024 End: 01-17-2025 US Pelvis transvaginal US OB transvaginal Imaging Routine Third trimester ([facility]) Expected: 11/01/2024, Expires: 01/17/2025 [facility] Work Phone: Comment on above: Expected: 11/01/2024 [...] of spina bifida Expected: 10/30/2024, Expires: 10/30/2025 [facility] Work Phone: Comment on above: Expected: 10/30/2024 , Expires: 10/30/2025 Start: 10-30-2024 End: 10-30-2024 Patient encounter procedure [facility] - [facility] US Imaging Start: 10-30-2024 End: 10-30-2024 ambulatory 10/30/2024 9:45 AM EDT Support Visit Maternal- Medicine at [facility] [address] [place] [phone] Maternal- Medicine at [facility] Start: 10-26-2024 Adult BMI Screening Adult BMI Screen [facility] Start: 07-24-2025 Depression Screening Depression Scre ening [facility] Start: 10-26-2024 Tobacco Screening Tobacco Screening [facility] Start: 10-23-2024 End: 10-23-2024 Patient encounter procedure 10/23/2024 1:00 PM EDT Appointment [facility] Imaging [address] [place] [phone] [facility] Imaging Start: 10-19-2024 End: 10-19-2024 Patient encounter procedure 10/19/2024 3:30 PM EDT Appointment [facility] US Imaging [address] [place] [phone] [facility] Imaging Start: 10-19-2024 End: 10-19-2024 ambulatory 10/19/2024 2:[address] [facility] [address] [place] [address] Rain Iverson DO [address] [place] [place] [address] [place] [address] [facility] Start: 10-17-2024 End: 10-17-2024 Patient encounter procedure [facility] Comment on above: Arrived Start: 10-12-2024 End: 10-12-2024 Patient encounter procedure 10/12/2024 3:15 PM EDT Appointment [facility] Imaging [address] [place] [address] [facility] Imaging Start: 10-05-2024 End: 10-05-2024 Patient encounter procedure 10/05/2024 3:30 PM EDT Appointment [facility] Imaging [address] [place] [address] [facility] Imaging Start: 10-03-2024 End: 04-05-2025 US biophysical profile w non stress test US biophysical profile w non stress test Imaging Routine Cystic fibrosis carrier, antepartum ([facility]) Maternal care for other (suspected) abnormality and damage, gastrointestinal anomalies, not applicable or unspecified ([facility]) Expected: 10/03/2024 (Approximate), Expires: 04/05/2025 [facility] Work Phone: Comment on above: Expected: 10/03/2024 (Approximate), Expires: 04/05/2025 Start: 10-03-2024 End: 10-03-2024 Patient encounter procedure 10/03/2024 1:40 PM EDT Routine [facility] [address] [place] [address] Curtis Paez, DO [address] [place], [place] [phone] [facility] Start: 09-29-2024 End: 09-29-2024 Patient encounter procedure 09/29/2024 3:00 PM EDT Appointment [facility] Imaging [address] [place] [address] Lyndsey Burns MD [address], [address] [place] [address] [facility] Imaging Start: 09-26-2024 Adult BMI Screening Adult BMI Screen ing [facility] Start: 09-26-2024 Depression Screening Depression Scre ening [facility] Start: 09-26-2024 Tobacco Screening Tobacco Screening [facility] Start: 09-18-2024 End: 09-18-2024 Patient encounter procedure 09/18/2024 3:40 PM EDT Routine [facility] [address] [place] [address] Curtis Paez, DO [address] [place], [place] [phone] Arrived [facility] Comment on above: Arrived Start: 09-18-2024 End: 01-18-2025 US for US OB follow up transabdominal approach Imaging Routine Cystic fibrosis carrier, antepartum ([facility]) Expected: 09/18/2024 (Approximate), Expires: 01/18/2025 [facility] Work Phone: Comment on above: Expected: 09/18/2024 (Approximate), Expires: 01/18/2025 Start: 09-02-2024 Adult BMI Screening Adult BMI Screen ing [facility] Start: 09-02-2024 Tobacco Screening Tobacco Screening [facility] Start: 08-30-2024 End: 08-30-2024 Patient encounter procedure 08/30/2024 9:50 AM EDT Routine [facility] [address] [phone] Jocy Ruby PA [address] [facility] [place] [address] [facility] Start: 08-25-2024 End: 08-25-2024 Patient encounter procedure 08/25/2024 9:45 AM EDT Appointment [facility] [place] [address] [facility] [address] [place] [phone] [facility] [place] Start: 08-24-2024 Adult BMI Screening Adult BMI Screen ing [facility] Start: 08-24-2024 Depression Screening Depression Scre ening [facility] Start: 08-24-2024 Tobacco Screening Tobacco Screening [facility] Start: 08-10-2024 End: 08-10-2024 Clinical Support 08/10/2024 11:00 AM EDT Clinical Support [facility] [address] [place] [phone] Emi Bronson, [facility] [address] [place] [address] [facility] Start: 08-09-2024 Adult BMI Follow Up Plan Adult BMI Follow Up Plan [facility] Start: 08-09-2024 Adult BMI Screening Adult BMI Screen ing [facility] Start: 08-09-2024 Depression Screening Depression Scre ening [facility] Start: 08-07-2024 End: 08-07-2024 Patient encounter procedure 08/07/2024 11:30 AM EDT Procedure Visit [facility] [address] [place] [phone] Curtis Paez, DO [address] [place] [address] [facility] Start: 08-01-2024 End: 08-01-2025 CBC panel - Blood by Automated count CBC Lab Routine Diabetes mellitus screening Expected: 08/01/2024 (Approximate), Expires: 08/01/2025 [facility] Healthcare Comment on above: Expected: 08/01/2024 (Approximate), Expires: 08/01/2025 Start: 08-01-2024 End: 08-01-2025 Measurement of glucose 1 hour after glucose challenge for glucose tolerance test Glucose tolerance, 1 hour Lab Routine Diabetes mellitus screening Expected: 08/01/2024 (Approximate), Expires: 08/01/2025 [facility] Healthcare Comment on above: Expected: 08/01/2024 (Approximate), Expires: 08/01/2025 Start: 08-01-2024 End: 08-01-2024 Patient encounter procedure 08/01/2024 1:20 PM EDT Routine [facility] [address] [place] [phone] Curtis Paez, DO [address] [place] [address] [facility] Start: 07-28-2024 End: 07-28-2024 Patient encounter procedure [facility] Imaging Start: 07-11-2024 End: 07-11-2024 Clinical Support 07/11/2024 12:00 PM EDT Clinical Support [facility] [address] [place] [address] Emi Bronson [facility] [address] [place] [address] [facility] Start: 07-06-2024 End: 08-05-2024 Alpha fetoprotein, maternal Alpha fetoprotein, maternal Lab Routine 17 weeks gestation of Second trimester Expected: 07/06/2024 (Approximate), Expires: 08/05/2024 [facility] Comment on above: Expected: 07/06/2024 (Approximate), Expires: 08/05/2024 Start: 07-06-2024 End: 07-06-2024 Patient encounter procedure [facility] Comment on above: Arrived Start: 06-20-2024 End: 06-20-2024 Clinical Support [facility] Start: 06-08-2024 End: 06-08-2025 US Pelvis transvaginal US OB transvaginal Imaging Routine 13 weeks gestation of Second trimester History of loop electrosurgical excision procedure (LEEP) of cervix affecting , antepartum Expected: 06/08/2024, Expires: 06/08/2025 [facility] Work Phone: Comment on above: Expected: 06/08/2024 , Expires: 06/08/2025 Start: 06-08-2024 End: 06-08-2024 Patient encounter procedure 06/08/2024 9:20 AM EST Routine [facility] [address] [place] [phone] Curtis Paez, [address] [facility] [place] [address] [facility] Start: 05-24-2024 End: 05-24-2024 Clinical Support 05/24/2024 10:00 AM EST Clinical Support [facility] [address] [place] [address] Emi Bronson [facility] [address] [place] [address] [facility] Start: 05-09-2024 End: 05-09-2024 [facility] Comment on above: Arrived Start: 05-09-2024 End: 05-09-2025 US Pelvis transvaginal US OB transvaginal Imaging Routine H/O LEEP Expected: 05/09/2024, Expires: 05/09/2025 [facility] Healthcare Comment on above: Expected: 05/09/2024 , Expires: 05/09/2025 Start: 05-05-2024 End: 05-05-2025 ABO/Rh ABO/Rh Lab Routine Missed menses , unspecified gestational age Expected: 05/05/2024 (Approximate), Expires: 05/05/2025 [facility] Healthcare Comment on above: Expected: 05/05/2024 (Approximate), Expires: 05/05/2025 Start: 05-05-2024 End: 05-05-2025 Blood type and Indirect antibody screen panel - Blood Type and screen Lab Routine Missed menses , unspecified gestational age Expected: 05/05/2024 (Approximate), Expires: 05/05/2025 [facility] Work Phone: Comment on above: Expected: 05/05/2024 (Approximate), Expires: 05/05/2025 Start: 05-05-2024 End: 05-05-2025 Drugs of abuse panel - Urine by Screen method Rapid drug screen, urine Lab Routine , unspecified gestational age Encounter for supervision of normal first in first trimester Expected: 05/05/2024 (Approximate), Expires: 05/05/2025 [facility] Healthcare Comment on above: Expected: 05/05/2024 (Approximate), Expires: 05/05/2025 Start: 05-05-2024 End: 05-05-2024 ambulatory 05/05/2024 10:00 AM EST Initial [facility] [address] [phone] [facility] Start: 05-05-2024 End: 05-05-2024 Professional / ancillary services management 05/05/2024 9:30 AM EST Ancillary Procedure [facility] [address] [place] [phone] [facility] Start: 05-03-2024 End: 05-03-2024 Patient encounter procedure 05/03/2024 10:30 AM EST Office Visit [facility] [address] [place] [phone], DO [address], [place] [address] [facility] Start: 05-02-2024 End: 05-02-2024 Telemedicine consultation with patient 05/02/2024 10:45 AM EST Telemedicine [facility] Ob[facility]ne[facility] [address] [place] [phone] Angela Monsno, MATH TEACHER-CHANNEL MARKETING COORDINATOR [address] [place] [address] [facility]col[facility] Start: 01-27-2024 End: 01-27-2024 Patient encounter procedure 01/27/2024 10:00 AM EDT Office Visit [facility] [address] [place] [phone], DO [address], [place] [address] [facility] Start: 12-27-2023 End: 12-27-2023 Clinical Support 12/27/2023 10:00 AM EDT Clinical Support [facility] [address] [place] [address] Emi Bronson, [facility] [address] [place] [address] [facility] Start: 12-13-2023 End: 12-13-2023 Clinical Support 12/13/2023 11:00 AM EDT Clinical Support [facility] [address] [place] [address] Emi Bronson, [facility] [address] [place] [address] [facility] Start: 12-05-2023 COVID-19 Vaccine ( season) COVID-19 Vaccine ( season) [facility] Start: 12-05-2023 COVID-19 Vaccine ( season) COVID-19 Vaccine ( season) [facility] Start: 12-05-2023 COVID-19 Vaccine ( season) COVID-19 Vaccine ( season) [facility] Start: 12-05-2023 Influenza vaccination Influenza Vacc ine [facility] Start: 11-04-2023 Influenza vaccination Flu vaccine (# 1) [facility] Start: 10-28-2023 End: 10-28-2023 Patient encounter procedure 10/28/2023 11:00 AM EDT [facility] [address] [place] [address] DO [address], [place] [address] [facility] Start: 10-27-2023 End: 10-27-2023 Patient encounter procedure 10/27/2023 10:15 AM EDT Office Visit [facility] [address] [place] [phone] DO [address], [place] [address] [facility] Start: 09-27-2023 End: 09-27-2023 Patient encounter procedure 09/27/2023 10:00 AM EDT Office Visit [facility] [address] [place] [address], DO [address], [place] [address] [facility] Start: 09-03-2023 End: 09-03-2023 Admission to same day surgery center 09/03/2023 1:30 PM EDT - 09/03/2023 2:30 PM EDT Surgery [facility] - Endoscopy [address] [place] [phone] Haja Osullivan, DO [address] [place] [address] COLONOSCOPY DIAGNOSTIC / SCREENING [90627 (CPT )] [facility] - Endoscopy Comment on above: COLONOSCOPY DIAGNOST IC / SCREENING [66271 (CPT )] Start: 09-03-2023 End: 09-03-2023 Colonoscopy flx dx w/collj spec when pfrmd COLONOSCOPY DIAGNOSTIC / SCREENING rectal bleeding 09/03/2023 1:30 PM EDT [facility] Start: 09-03-2023 Subsequent hospital visit by physician 09/03/2023 1:30 PM EDT Hospital Encounter [facility] - Endoscopy [address] [phone] Haja Osullivan, DO [address] [place] [address] [facility] - Endoscopy Start: 09-02-2023 End: 09-02-2023 ambulatory 09/02/2023 2:00 PM EDT Support Visit [facility] Admit [address] [place] [address] [facility] - Pre Admit Start: 08-25-2023 End: 08-25-2023 Patient encounter procedure 08/25/2023 9:20 AM EDT [facility] [address] [place] [address] DO [address], [place] [address] [facility] Start: 08-01-2023 Screening for malign ant neoplasm of cervix [facility] Start: 2014 Screening for malign ant neoplasm of cervix Pap smear [facility] Start: 2012 DTaP,Tdap and Td Vaccines (1 - Tdap) DTaP,Tdap and Td Vaccines (1 - Tdap) [facility] Start: 2012 Hepatitis B vaccine (1 of 3 - 19+ 3-dose series) Hepatitis B vaccine (1 of 3 - 19+ 3-dose series) [facility] Start: 2012 Pneumococcal 0-49 ye ars Vaccine (1 of 2 - PCV) Pneumococcal 0-49 years Vaccine (1 of 2 - PCV) [facility] Start: 08-01-2011 Adult BMI Follow Up Plan Adult BMI Follow Up Plan [facility] Start: 08-01-2011 Hepatitis C screening Hepatitis C sc reen [facility] Start: 2008 HIV screening HIV screen [facility] Start: 2006 Varicella vaccine (1 of 2 - 13+ 2-dose series) Varicella vaccine (1 of 2 - 13+ 2-dose series) [facility] Start: 2005 Depression Screen Depression Screen [facility] Start: 2005 Tobacco Screening Tobacco Screening [facility] Start: 08-01-1999 Pneumococcal 0-64 ye ars Vaccine (1 of 2 - PCV) Pneumococcal 0-64 years Vaccine (1 of 2 - PCV) [facility] Bacteria identified in Urine by Culture Urine culture Microbiology Routine Missed menses Ordered: 05/05/2024 [facility] Comment on above: Ordered: 05/05/2024 End: 09-26-2024 CBC panel - Blood by Automated count CBC Lab Routine Rectal bleeding 1 Occurrences starting 09/27/2023 until 09/26/2024 [facility] Comment on above: 1 Occurrences starti ng 09/27/2023 until 09/26/2024 CBC W Auto Different ial panel - Blood CBC and differential Lab Routine Missed menses , unspecified gestational age Ordered: 05/05/2024 [facility] Comment on above: Ordered: 05/05/2024 CHLAMYDIA TRACHOMATI S (GENITO/STI) CHLAMYDIA TRACHOMATIS (GENITO/STI) Lab Routine Exposure to STD Ordered: 07/06/2024 [facility] Comment on above: Ordered: 07/06/2024 CHLAMYDIA TRACHOMATI S (GENITO/STI) CHLAMYDIA TRACHOMATIS (GENITO/STI) Lab Routine Chlamydia trachomatis infection 21 weeks gestation of Second trimester Ordered: 08/01/2024 [facility] Comment on above: Ordered: 08/01/2024 End: 08-09-2024 Chlamydia/GC by PCR ThinPrep fluid Chlamydia/GC by PCR ThinPrep fluid Microbiology Routine Pap smear, as part of routine gynecological examination 1 Occurrences starting 08/10/2023 until 08/09/2024 [facility] [employer] Comment on above: 1 Occurrences starti ng 08/10/2023 until 08/09/2024 End: 08-24-2024 Colonoscopy Colonoscopy GI Routine Rectal bleeding 1 Occurrences starting 08/25/2023 until 08/24/2024 [employer] Work Phone: Comment on above: 1 Occurrences starti ng 08/25/2023 until 08/24/2024 End: 09-26-2024 Comprehensive metabolic 2000 panel - Serum or Plasma Comprehensive metabolic panel Lab Routine Well adult health check 1 Occurrences starting 09/27/2023 until 09/26/2024 [employer] Work Phone: Comment on above: 1 Occurrences starti ng 09/27/2023 until 09/26/2024 Cytology Cervical or vaginal smear or scraping study Pap Smear Pathology and Cytology Routine Well woman exam with routine gynecological exam Ordered: 07/06/2024 [facility] Comment on above: Ordered: 07/06/2024 End: 08-09-2024 Cytopathology procedure, preparation of smear, genital source Pap Smear Pathology and Cytology Routine Pap smear, as part of routine gynecological examination 1 Occurrences starting 08/10/2023 until 08/09/20[facility]: 1 Occurrences starti ng 08/10/2023 until 08/09/2024 End: 01-19-2025 nonstress test - Maternal Medicine nonstress test - Maternal Medicine OB Routine Supervision of high risk in third trimester Per Treatment Plan for 4 Occurrences starting 10/19/2024 until 01/19/2025 [employer] Work Phone: Comment on above: Per Treatment Plan f or 4 Occurrences starting 10/19/2024 until 01/19/2025 End: 04-18-2025 HCG, Quantitative, HCG, Quantitative, Lab Routine Positive test 1 Occurrences starting 04/18/2024 until 04/18/2025 [employer] Work Phone: Comment on above: 1 Occurrences starti ng 04/18/2024 until 04/18/2025 Hemoglobin A1c/Hemoglobin.total in Blood Hemoglobin A1c Lab Routine Missed menses , unspecified gestational age Ordered: 05/05/2024 [facility] Comment on above: Ordered: 05/05/2024 Hepatitis B virus surface Ag [Presence] in Serum or Plasma by Immunoassay Hepatitis B surface antigen Lab Routine Missed menses , unspecified gestational age Ordered: 05/05/2024 [facility] Comment on above: Ordered: 05/05/2024 Hepatitis C virus Ab [Presence] in Serum or Plasma by Immunoassay Hepatitis C antibody Lab Routine Missed menses , unspecified gestational age Ordered: 05/05/2024 [facility] Comment on above: Ordered: 05/05/2024 End: 08-09-2024 Hepatitis panel, acute Hepatitis panel, acute Lab Routine Screening for STD (sexually transmitted disease) 1 Occurrences starting 08/10/2023 until 08/09/2024 [facility] Comment on above: 1 Occurrences starti ng 08/10/2023 until 08/09/2024 End: 08-09-2024 High risk HPV w/faustina High risk HPV w/faustina Lab Routine Pap smear, as part of routine gynecological examination 1 Occurrences starting 08/10/2023 until 08/09/2024 [facility] Comment on above: 1 Occurrences starti ng 08/10/2023 until 08/09/2024 End: 08-09-2024 HIV 1&2 AB/AG Screen (P24 AG) HIV 1&2 AB/AG Screen (P24 AG) Lab Routine Screening for STD (sexually transmitted disease) 1 Occurrences starting 08/10/2023 until 08/09/2024 [facility] [employer] Work Phone: Comment on above: 1 Occurrences starti ng 08/10/2023 until 08/09/2024 HIV-1/HIV-2 antigen/antibody combination immunoassay HIV-1 and HIV-2 antibodies Lab Routine Missed menses , unspecified gestational age Ordered: 05/05/2024 [facility] Comment on above: Ordered: 05/05/2024 Human papilloma viru s DNA [Presence] in Unspecified specimen by Probe with amplification HPV DNA probe, amplified Microbiology Routine Well woman exam with routine gynecological exam Ordered: 07/06/2024 [facility] Comment on above: Ordered: 07/06/2024 End: 09-26-2024 Lipid panel Lipid panel Lab Routine Well adult health check 1 Occurrences starting 09/27/2023 until 09/26/2024 [facility] Comment on above: 1 Occurrences starti ng 09/27/2023 until 09/26/2024 Neisseria gonorrhoea e DNA [Presence] in Unspecified specimen by ALLISON with probe detection Neisseria gonorrhea DNA probe, direct Lab Routine Exposure to STD Ordered: 07/06/2024 [facility] Comment on above: Ordered: 07/06/2024 Neisseria gonorrhoea e DNA [Presence] in Unspecified specimen by ALLISON with probe detection Neisseria gonorrhea DNA probe, direct Lab Routine Chlamydia trachomatis infection 21 weeks gestation of Second trimester Ordered: 08/01/2024 [facility] Comment on above: Ordered: 08/01/2024 Reagin Ab [Presence] in Serum by RPR RPR Lab Routine Missed menses , unspecified gestational age Ordered: 05/05/2024 [facility] Comment on above: Ordered: 05/05/2024 Rubella antibody, IgG Rubella an tibody, IgG Lab Routine Missed menses , unspecified gestational age Ordered: 05/05/2024 [facility] [employer] Comment on above: Ordered: 05/05/2024 Strep B screen Strep B screen Microbiology Routine Third trimester 11/17/2024 3:01 PM EDT [employer] Work Phone: SURESWAB(R) ADVANCED VAGINITIS PLUS, TMA SURESWAB(R) ADVANCED VAGINITIS PLUS, TMA Pathology and Cytology Routine Vaginal discharge Ordered: 07/06/2024 [facility] Work Phone: Comment on above: Ordered: 07/06/2024 SURESWAB(R) ADVANCED VAGINITIS PLUS, TMA SURESWAB(R) ADVANCED VAGINITIS PLUS, TMA Pathology and Cytology Routine Chlamydia trachomatis infection 21 weeks gestation of Second trimester Ordered: 08/01/2024 [facility] Work Phone: Comment on above: Ordered: 08/01/2024 End: 08-09-2024 Syphilis Total(Unknown Syphilis Status) Syphilis Total(Unknown Syphilis Status) Lab Routine Screening for STD (sexually transmitted disease) 1 Occurrences starting 08/10/2023 until 08/09/2024 [facility] [employer] Comment on above: 1 Occurrences starti ng 08/10/2023 until 08/09/2024 Thyrotropin [Units/volume] in Serum or Plasma TSH Lab Routine Missed menses Ordered: 05/09/2024 [facility] Work [facility]: Comment on above: Ordered: 05/09/2024 End: 09-26-2024 TSH with Reflex TSH with Reflex Lab Routine Class 1 obesity due to excess calories without serious comorbidity with body mass index (BMI) of 31.0 to 31.9 in adult 1 Occurrences starting 09/27/2023 until 09/26/2024 [facility] [employer] Comment on above: 1 Occurrences starti ng 09/27/2023 until 09/26/2024 End: 09-10-2024 Us uterus limited 1/> fetuses [employer] Work Phone: Comment on above: Once for 1 Occurrenc es starting 09/10/2024 until 09/10/2024 Immunizations Immunization Date Immunization Notes Care Provider Fa idalmis 11-03-2024 tetanus toxoid, redu andrew diphtheria toxoid, and acellular pertussis vaccine, adsorbed Tiffany Ornelas MD Work Phone: [facility] 11-03-2024 Immunization, In Clinic,; Translations: [Drug or medicament (substance)] Tiffany Ornelas MD Work Phone: [facility] 08-16-2018 tetanus toxoid, redu andrew diphtheria toxoid, and acellular pertussis vaccine, adsorbed Armen Street DO Work Phone: [facility] Payers Date Payer Category Payer Unknown [id number] 2023 Commercial Managed [facility] [employer] [id number] 2023 Private Health Insurance [id number] 2023 Unknown [id number] 1.13.693.2. [id number] 2023 Unknown [id number] 2017 Unknown [id number] 1.2.840.240476.1.13.239.2. [id number] 1993 Unknown [id number] 2.16.840.1.934271.3.579.2. 1285 1993 Unknown [id number] 2.16.840.1.663086.3.579.2. 1285 1993 Unknown [id number] 2.16.840.1.510967.3.579.2. 1285 1993 Unknown [id number] 2.16.840.1.703051.3.579.2. 1285 1993 Unknown [id number] 2.16840.1.884482.3.579.2. 1285 1993 Unknown [id number] 2.16840.1.449307.3.579.2. 1285 1993 Unknown [id number] 2.16840.1.772817.3.579.2. 1285 1993 Unknown [id number] 2.16840.1.080437.3.579.2. 1285 1993 Unknown [id number] 2.16840.1.013318.3.579.2. 1993 Unknown [id number] 2.16840.1.135980.3.579.2. 1993 Unknown [id number] 2.16840.1.140899.3.579.2. 1993 Unknown [id number] 2.16840.1.084721.3.579.2. 1285 1993 Unknown [id number] 2.16840.1.595952.3.579.2. 1285 1993 Unknown [id number] 2.16840.1.673263.3.579.2. 1285 1993 Unknown [id number] 2.16840.1.418270.3.579.2. 1285 1993 Unknown [id number] 2.16840.1.213922.3.579.2. 1285 1993 Unknown [id number] 2.16840.1.863404.3.579.2. 1286 1993 Unknown [id number] 2.16.840.1.309807.3.579.2. 1285 1993 Unknown [id number] 2.16.840.1.692109.3.579.2. 128 1993 Unknown [id number] 2.16.840.1.244267.3.579.2. 1285 1993 Unknown [id number] 2.16.840.1.039944.3.579.2. 128 1993 Unknown [id number] 2.16.840.1.861808.3.579.2. 1285 1993 Unknown [id number] 2.16840.1.628701.3.579.2. 1285 1993 Unknown [id number] 2.16840.1.330177.3.579.2. 1285 1993 Unknown [id number] 2.16840.1.604983.3.579.2. 128 1993 Unknown [id number] 2.16840.1.237196.3.579.2. 1285 1993 Unknown [id number] 2.16840.1.638819.3.579.2. 128 1993 Unknown [id number] 2.16840.1.016978.3.579.2. 1285 1993 Unknown [id number] 2.16840.1.120338.3.579.2. 1285 1993 Unknown [id number] 2.16840.1.507064.3.579.2. 1286 Medicaid [place] [id number] Social History Date Type Detail Facility Tobacco smoking stat [facility] Tobacco smoking consumption unknown [facility] Start: 1995 Sex assigned at Female [facility] Start: 10-25-2023 Gender identity Identifies as female gender (finding) [facility] Start: 08-25-2023 End: 11-17-2024 Sexual orientation Not on file [facility] Start: 08-01-2011 End: 04-27-2024 Tobacco smoking status NHIS Smokes tobacco daily [facility] Start: 08-01-2011 History of tobacco use Cigarette Smo ker [facility] Start: 08-25-2023 End: 11-17-2024 Cigarettes smoked current (pack per day) - Reported 1 [facility] Start: 08-25-2023 End: 04-27-2024 Tobacco use and exposure Smokeless tobacco non-user [facility] Start: 01-27-2024 End: 11-17-2024 Alcoholic beverage intake Ex-drinker (finding) [facility] Has the [employer], or water [employer] threatened to shut off services in your home in past 12Mo No [facility] Are you now , , , , never or living with a partner? Never [facility] How often to you hav e a drink containing alcohol? Never [facility] How many standard drinks containing alcohol do you have on a typical day? Patient does not drink [facility] How hard is it for y ou to pay for the very basics like food, housing, medical care, and heating Somewhat hard [facility] Do you feel stress - tense, restless, nervous, or anxious, or unable to sleep at night because your mind is troubled all the time - these days [OSQ] To some extent [facility] Start: 1993 Sex assigned at Not on file [facility] Start: 05-15-2012 End: 11-08-2014 Sex Female (finding) [facility] Start: 03-21-2024 [facility] How hard is it for y ou to pay for the very basics like food, housing, medical care, and heating Not very hard [facility] Goals Date Patient Goal Desired Activity /State Personal health goal Clinical Notes 08-10-2023 to 11-17-2024 Beverly Joe Ramirez MD - 11/17/2024 2:30 PM Tre Temple LPN - 11/17/2024 2:30 PM Jose Horne MD - 11/17/2024 2:30 PM Kerline Ornelas MD - 11/03/2024 1:00 PM EDTDischarge Instructions Note Date & Type Note Facility 11-17-2024 History of Present illness Narrative [facility] High Risk Obstetrics Return OB Visit CC: Scheduled OB Visit Subjective: at 36w3d Reports Roane-Epstein. Denies vaginal bleeding, loss of fluid. Reports [...] Variants - Continue twice weekly NST (at [facility]), weekly BPP, weekly bowel evaluation and DVP [...] BID, tums prn Control plan: sterilization - [place] signed 11/06/24. She is aware that she can change her mind prior to the surgery time. RTC in 2 weeks via HROB Beverly Ramirez MD Lean Coach Resident, PGY-4 Pt here for 36w3d HR visit States acid reflux and insomnia Feeling good movement No leaking of fluid or blood, no headaches of vision issues Pt states has been having a lot contraction in the last couple of days, but are irregular Has been having sharp pains in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
== END 2024-11-20 19:40 | disposition home or self-care (01) ==
LOC: FBCO 18:46 → FBC 18:48
PROVIDERS: PCP Family Medicine; Visit Provider Obstetrics & Gynecology
DX: O43.899 Other placental disorders, unspecified trimester (principal)
CPT/HCPCS: 59025

== ENCOUNTER 2024-11-23 13:59 | Outpatient (OUT) | payer OTHER, SELFPAY ==
--- OUTSIDE RECORDS SUMMARY | 2024-11-14 15:27 | XMS_ITS | Encounter Summary ---
Author Organization [employer] tem Address [facility] [id number] [address] [place] [address] Care Team Providers Care Residence Supervisor Name Role Phone Armen Sánchez DO Primary Care Provider + [phone] Reason for Referral * Diagnostic Imaging (Routine) [...] or without consult Angela Gardner MD [address] [facility], 1ST [place] [address] Phone: tel: fax: Maternal- Medicine at [place] [address] [place] [address] Phone: tel: fax: Referral ID Status Reason Start Date Expiration Date V isits Requested Visits Authorized [id number] Pending Review 10/30/2024 10/30/2025 1 1 Reason [...] or without consult Angela Gardner MD [address] [facility], [address] [place] [address] Phone: tel: fax: Maternal- Medicine at [facility] [address] [place] [address] Phone: tel: fax: Referral ID Status Reason Start Date Expiration Date V isits Requested Visits Authorized [id number] Pending Review 10/30/2024 10/30/2025 1 1 Encounter Details Date Type Department Care Team (Latest Contact Info) Description 11/14/2024 3:27 PM EDT - 11/14/2024 11:59 PM EDT Hospital Encounter [facility] - [facility] US Imaging [address] [place] [address] Supervision of high risk in [...] drink = 0.6 oz pur e alcohol) [facility] Utilities Answer Date Recorded In the past 12 months has [employer], gas, oil, or water [employer] threatened to shut off services in your [...] often do you attend chur ch or worship services? Never 01/27/2024 Do you [...] Answer Date Recorded Total Score 0 10/18/2024 [facility] [place] of Occupat ional Health - Occupational Stress [...] Do you need help finding a [facility] career center and/or a training [...] Care Team (Late st Contact Info) Description 11/24/2024 2:45 PM EDT Routine [facility] [address] [place] [phone] Gemma Horne MD [address] [place] [address], [address] [address] 11/28/2024 11:00 AM EDT Appointment [facility] US Imaging [address] [place] [address] 11/28/2024 11:30 AM EDT Office Visit Maternal- Medicine at [facility] [address] [place] [address] Edil Bullock MD [address] [facility], [address] [place] [address] documented as of this encounter Procedures [...] 4:07 PM EDT) Anatomical Region Laterality Modality OB-CADDY MASTER Ultrasound 11/14/2024 3:46 PM EDT Narrative 11/14/2024 4:12 PM EDT NAME: JEREMY BORDEN : 1995 SEX: F Accession Number: [id number] ORDERING PHYSICIAN: ANGELA GARDNER REFERRING PHYSICIAN: CLIFTON IVERSON Coding ----- --------- Procedures 34230: biophysical profile; without non-stress testing Indication ----- --------- Abnormal finding on screening of mother-MOB + FOB CF carriers, Depression, Anxiety , Supervision of high risk , cystic fibrosis. History ----- --------- OB History 1. Para 0 [id number] Current ----- --------- Cell free DNA low [...] BORDEN : 1995 SEX: F Accession Number: [id number] ORDERING PHYSICIAN: ANGELA GARDNER REFERRING PHYSICIAN: CLIFTON IVERSON Coding ----- --------- Procedures 83065: biophysical profile; without non-stresstesting Indication ----- --------- Abnormal finding on screening of mother-MOB + FOB CF carriers,Depression, Anxiety , Supervision of high risk , cystic fibrosis. History ----- --------- OB History 1. Para 0 [id number] Current ----- --------- Cell free DNA low [...] thepatient as necessary. us Angela Gardner MD [facility] US ORDERABLES Final Resul t documented in [...] documented as of this encounter Care Teams Residence Supervisor Relationship Specialty Start Date End Date Armen Sánchez DO [address] [facility], [place] [address] PCP - General Family Medicine 08/25/23 documented as of this encounter
--- OUTSIDE RECORDS SUMMARY | 2024-11-17 14:30 | XMS_ITS | Encounter Summary ---
Author Organization [employer] tem Address [id number] [address] [place] [address] Care Team Providers Care Cyber Security Engineer Name Role Phone MasoodArmen silverman Primary Care Provider [phone] Reason for Visit * Reason Comments High Risk Gestation Encounter Details Date Type Department Care Team (Late st Contact Info) Description 11/17/2024 2:30 PM EDT [facility] [address] [place] [phone] Gemma Horne MD [address] [place] [address], [place], [place] [phone] GA: 36w3d Social History Tobacco Use Types Packs/Day Years Used Date Smoking Tobacco: Every Day Cigarettes 1 13.3 Started: 08/01/2011 Smokeless Tobacco: Never Alcohol Use Standard Drinks/Week Comments Not Currently 0 (1 standard drink = 0.6 oz pur e alcohol) [facility] Utilities Answer Date Recorded In the past 12 months has th [employer] electric, gas, oil, or water company threatened [...] often do you attend [facility] or adventism services? Never 01/27/2024 Do you belong to any clubs o r organizations such as jehovah's witness groups, unions, fraternal or athletic groups, or [...] Answer Date Recorded Total Score 0 10/18/2024 [facility] - [...] need help finding a [facility] career center and/or a training program? [...] Ramirez MD - 11/17/2024 2:30 PM EDT [place] [facility] High Risk Obstetrics Return OB [...] third trimester Overview Tranasfer from Dr. Paez [place] Dated by LMP c/w 7 week US Initial and 28 week labs--completed Anxiety and depression Chlamydia infection affecting , antepartum Overview 07/2024 Treated with negative test of reinfection Care - S/p Tdap - labor precautions discussed - kick count advised - GBS obtained today Fetus with Two CF causing Variants - Continue twice weekly NST (at [place]), weekly BPP, weekly bowel evaluation and DVP [...] BID, tums prn Control plan: sterilization - [place] medicaid consent form signed 11/06/24. She is aware that she can change her mind prior to the surgery time. RTC in 2 weeks via HROB Beverly Ramirez MD [facility] Teacher Resident, PGY-4 * Leatha Temple LPN - [...] Health Services - Women's Services [address] [place] [phone] Gemma Horne MD [address] [facility], [address] [address] 11/28/2024 11:00 AM EDT Appointment [facility] US Imaging [address] [facility] [place] [place] [phone] 11/28/2024 11:30 AM EDT Office Visit Maternal- Medicine at [facility] [address] [place] [phone] Edil Bullock MD [address] [facility], [address] [place] [phone] documented as of this encounter Procedures Procedure Name Priority Date/Time Associated Diagnosis Comments STREP B SCREEN Routine 11/17/2024 3:01 PM EDT Third trimester documented in this encounter Results * Strep B screen (11/17/2024 3:01 PM EDT) CULTURE RESULTS NEGATIVE FOR GROUP B STREPTOCOCCUS BY NUCLEIC ACID AMPLIFICATION 11/18/2024 1:55 PM EDT [facility] Swab (Vagina/Rectum) 11/17/2024 3:01 PM EDT 11/17/2024 3:03 PM EDT Gemma Horne MD MICROBIOLOGY - GENERAL ORDERABLE S Final Result [facility] [address] [place] [address], documented in this encounter Visit Diagnoses Diagnosis [...] documented as of this encounter Care Teams Cyber Security Engineer Relationship Specialty Start Date End Date Armen Sánchez DO [address] [facility], [place] [address] PCP - General Family Medicine 08/25/23 documented as of this encounter
--- OUTSIDE RECORDS SUMMARY | 2024-11-21 15:08 | XMS_ITS | Encounter Summary ---
Author Organization [employer] tem Address [id number] [address] [place] [address] Care Team Providers Care Physician Name Role Phone Armen Sánchez DO Primary Care Provider + [phone] Reason for Referral * Diagnostic Imaging (Routine) [...] Family history of spina bifida Procedures US [facility] with or without consult Angela Gardner MD [address] [facility], 1ST [place] [address] Phone: tel: fax: Maternal- Medicine at [place] [address] [place] [address] Phone: tel: fax: Referral ID Status Reason Start Date Expiration Date V isits Requested Visits Authorized [id number] Pending Review 10/30/2024 10/30/2025 1 1 Reason [...] Family history of spina bifida Procedures US MFM with or without consult Angela Gardner MD [address] [facility], 1ST [place] [address] Phone: tel: fax: Maternal- Medicine at [facility] [address] [place] [address] Phone: tel: fax: Referral ID Status Reason Start Date Expiration Date V isits Requested Visits Authorized [id number] Pending Review 10/30/2024 10/30/2025 1 1 Encounter Details Date Type Department Care Team (Latest Contact Info) Description 11/21/2024 3:08 PM EDT - 11/21/2024 11:59 PM EDT Hospital Encounter [facility] - Ultrasound [address] [place] [phone] Supervision of high risk in third trimester; [...] Recorded In the past 12 months has [employer], gas, oil, or water [employer] threatened to shut off services in your [...] Score 0 10/18/2024 [facility] of Occupat ional Health - Occupational Stress [...] this encounter Medications at Time of Discharge famotidine (PEPCID) 20 mg tablet Take 1 tablet (20 mg total) by mouth in the morning and 1 tablet (20 mg total) before bedtime. 60 tablet 1 11/17/2024 FLUoxetine (PROzac) 20 mg capsule Take 1 [...] [facility] [address] [place] [phone] Gemma Horne MD [address] [place] [address], [address] [place] [address] 11/28/2024 11:00 AM EDT Appointment [facility] - MFM US Imaging [address] [place] [address] 11/28/2024 11:30 AM EDT Office Visit Maternal- Medicine at [facility] [address] [facility] [place] [address] Edil Bullock MD [address], [address] [place] [address] documented as of this encounter Procedures Procedure Name Priority Date/Time Associated Diagnosis Comments US MFM BIOPHYSICAL PROFILE WO NST Routine 11/21/2024 3:36 PM EDT Supervision of high risk in third trimester Cystic fibrosis carrier, antepartum Abnormal genetic test during Maternal care for other (suspected) abnormality and damage, gastrointestinal anomalies, not applicable or unspecified Cystic fibrosis carrier Family history of developmental delay Family history of spina bifida documented in this encounter Results * US MFM BIOPHYSICAL PROFILE WO NST (11/21/2024 3:36 PM EDT) Anatomical Region Laterality Modality OB-SCARFER OPERATOR Ultrasound 11/21/2024 3:13 PM EDT Narrative 11/21/2024 3:38 PM EDT NAME: JEREMY BORDEN : 1995 SEX: F Accession Number: [id number] ORDERING PHYSICIAN: ANGELA GARDNER REFERRING PHYSICIAN: CONG ORNELAS Coding ----- --------- Procedures 87647: biophysical profile; without non-stress testing Indication ----- --------- Abnormal finding on screening of mother-MOB + FOB CF carriers, Depression, Anxiety , cystic fibrosis. History ----- --------- OB History 1. Para 0 [id number] Current ----- --------- Cell free DNA low risk analysis Maternal Assessment ----- --------- Physical Exam Height 163 cm, 5 ft 4 in. Initial weight 86 kg, 190 lb. Initial BMI 32.61 kg/m Method ----- --------- Transabdominal ultrasound examination. ----- --------- Dupont . Number of fetuses: 1 Dating ----- --------- LMP on: 03/07/2024 GA by LMP 37 w + 0 d DOMINIQUE by LMP: 12/12/2024 Previous Ultrasound on: 04/27/2024 Type of prior assessment: GA GA at prior assessment date 7 w + 2 d GA by previous U/S 37 w + 0 d DOMINIQUE by previous Ultrasound: 12/12/2024 Assigned: based on the LMP, selected on 07/28/2024 Assigned GA (weeks days) 37 w + 0 d Assigned DOMINIQUE: 12/12/2024 General Evaluation ----- --------- Cardiac activity Present. FHR 136 bpm. Presentation: cephalic Placenta: Placental site: anterior, previously documented away from cervical os Umbilical cord: Cord vessels: 3 vessel cord Amniotic Fluid Assessment ----- --------- Amount of AF: normal amount MVP 6.9 cm Biophysical Profile ----- --------- 2: breathing movements 2: Gross body movements 2: tone 2: Amniotic fluid volume 11/10 Biophysical profile score Maternal Structures ----- --------- Uterus Visualized Cervix Suboptimal Right Ovary Not examined Left Ovary Not examined Cul de Sac Suboptimal Impression ----- --------- Single viable intrauterine at 37w0d gestation in cephalic presentation. BPP is 8/8. Amniotic fluid MVP is 6.9 cm. Recommendations ----- --------- The patient is scheduled in one week for follow up growth ultrasound, BPP and MFM office visit. Subsequent follow up or other follow up as clinically determined by primary OB provider unless otherwise specified by MFM. Results forwarded to ordering provider so they can follow up with the patient as necessary. Procedure Note Aislinn Sanabria MD - 11/21/2024 NAME: JEREMY BORDEN : 1995 SEX: F Accession Number: [id number] ORDERING PHYSICIAN: ANGELA GARDNER REFERRING PHYSICIAN: CONG ORNELAS Coding ----- --------- Procedures 01590: biophysical profile; without non-stresstesting Indication ----- --------- Abnormal finding on screening of mother-MOB + FOB CF carriers,Depression, Anxiety , cystic fibrosis. History ----- --------- OB History 1. Para 0 [id number] Current ----- --------- Cell free DNA low risk analysis Maternal Assessment ----- --------- Physical Exam Height 163 cm, 5 ft 4 in. Initial weight 86 kg, 190 lb.Initial BMI 32.61 kg/m Method ----- --------- Transabdominal ultrasound examination. ----- --------- Dupont . Number of fetuses: 1 Dating ----- --------- LMP on: 03/07/2024 GA by LMP 37 w + 0 d DOMINIQUE by LMP: 12/12/2024 Previous Ultrasound on: 04/27/2024 Type of prior assessment: GA GA at prior assessment date 7 w + 2 d GA by previous U/S 37 w + 0 d DOMINIQUE by previous Ultrasound: 12/12/2024 Assigned: based on the LMP, selected on 07/28/2024 Assigned GA (weeks days) 37 w + 0 d Assigned DOMINIQUE: 12/12/2024 General Evaluation ----- --------- Cardiac activity Present. FHR 136 bpm. Presentation: cephalic Placenta: Placental site: anterior, previously documented away fromcervical os Umbilical cord: Cord vessels: 3 vessel cord Amniotic Fluid Assessment ----- --------- Amount of AF: normal amount MVP 6.9 cm Biophysical Profile ----- --------- 2: breathing movements 2: Gross body movements 2: tone 2: Amniotic fluid volume 8/8 Biophysical profile score Maternal Structures ----- --------- Uterus Visualized Cervix Suboptimal Right Ovary Not examined Left Ovary Not examined Cul de Sac Suboptimal Impression ----- --------- Single viable intrauterine at 37w0d gestation in cephalicpresentation. BPP is 8/8. Amniotic fluid MVP is 6.9 cm. Recommendations ----- --------- The patient is scheduled in one week for follow up growth ultrasound, BPPand MFM office visit. Subsequent follow up or other follow up as clinically determined byprimary OB provider unless otherwise specified by MFM. Results forwarded to ordering provider so they can follow up with thepatient as necessary. us Angela Gardner MD [facility] US ORDERABLES Final Resul t documented in [...] documented as of this encounter Care Teams Physician Relationship Specialty Start Date End Date Armen Sánchez DO [address] [place] [address] PCP - General Family Medicine 08/25/23 documented as of this encounter
--- OUTSIDE RECORDS SUMMARY | 2024-11-23 14:02 | XMS_ITS | Encounter Summary ---
Author Organization [employer] tem Address [id number] [address] [place] [address] Care Team Providers Care Hand Meat Salter Name Role Phone SepidehArmen tristan Cedric [place] Primary Care Provider Encounter Details Date Type Department Care Team (Latest Contact Info) Description 11/14/2024 Travel Social History Tobacco Use Types Packs/Day Years Used Date Smoking Tobacco: Every Day Cigarettes 1 13.3 Started: 08/01/2011 Smokeless Tobacco: Never Alcohol Use Standard Drinks/Week Comments Not Currently 0 (1 standard drink = 0.6 oz pur e alcohol) [facility] Utilities Answer Date Recorded In [...] often do you attend chur ch or congregation services? Never 01/27/2024 Do you belong to any clubs o r organizations such as roman catholic groups, unions, fraternal or athletic groups, [...] Answer Date Recorded Total Score 0 10/18/2024 [facility] of Occupat ional Health - Occupational [...] Description 11/24/2024 2:45 PM EDT Routine [facility] Health Services - Women's Services [address] [place] [phone] Gemma Horne MD [address] [place] [address], [place] [address] 11/28/2024 11:00 AM EDT Appointment [facility] US Imaging [address] [facility] [place] [address] 11/28/2024 11:30 AM EDT Office Visit Maternal- Medicine at [facility] [address] [place] [address] Edil Bullock MD [address] [facility], [address] [place] [address] documented as of this encounter Visit Diagnoses Not on filedocumented in this encounter Additional Health Concerns Assessment Noted Time PHQ-9 Depression Total Score: 0 10/19/19 25 4:00 AM EDT A Body Mass Index follow-up plan has been documented for the patient 08/10/2023 10:14 AM EDT documented as of this encounter Care Teams Hand Meat Salter Relationship Specialty Start Date End Date Armen Sánchez DO [address] [facility], [place] [address] PCP - General Family Medicine 08/25/23 documented as of this encounter
--- OUTSIDE RECORDS SUMMARY | 2024-11-23 14:02 | XMS_ITS | Clinical Summary ---
Demographics Address [address] [place] [address] Home Phone Work Phone Mobile Phone Email Address Email Address Preferred Language Faroese Marital Status Single Congregation Affiliation Unknown Race White Ethnic Group Not or Lati no Author Organization [facility] Address [address] [facility], [address] [place] [address] Care Team Providers Care Business Banking Representative Name Role Phone Armen Sánchez Primary Care Provider [phone] Allergies Active Allergy Reactions Criticality Noted Date [...] today Need for prophylactic vaccin ation against [id number] (DTP) 08/16/2018 Assessment & Plan (08/16/2018 4:03 [...] Hospital Encounter [facility] Labor [facility] Delivery [address] [place] [address] Victorino Christie, Discharge Disposition: Home or Self [...] Self 1995 [address] [place] [address] [employer] [facility] Care Teams Business Banking Representative Relationship Specialty Start Date End Date Armen Sánchez DO [address] [facility] [place] [address] PCP - General Family Medicine 04/27/24
--- OUTSIDE RECORDS SUMMARY | 2024-11-23 14:02 | XMS_ITS | Encounter Summary ---
Author Organization [facility] Address [address] [place] [address] Care Team Providers Care Low Pressure Boiler Tender Name Role Phone Armen Sánchez MD Primary Care Provider [phone] Encounter Details Date Type Department Care Team (Late st Contact Info) Description 10/03/2024 Abstract [facility] [address] [place] [phone] Curtis Paez DO [address] [facility] [address] [place], [place] [id number] Social History Tobacco Use Types Packs/Day Years [...] on filedocumented in this encounter Care Teams Low Pressure Boiler Tender Relationship Specialty Start Date End Date Armen Sánchez MD PCP - General Family Medicine 05/05/24 documented as of this encounter
--- OUTSIDE RECORDS SUMMARY | 2024-11-23 14:02 | XMS_ITS | Encounter Summary ---
Author Organization [facility] [employer] tem Address [id number] [address] [place] [address] Care Team Providers Care Authors Motivational Name Role Phone MasoodArmen silverman Primary Care Provider Encounter Details Date Type Department Care Team (Late st Contact Info) Description 11/14/2024 Orders Only [facility] Internal Medicine - Family Medicine [address] [place] [address] Ref Prov, [place] [address] Social History Tobacco Use Types Packs/Day Years Used Date Smoking Tobacco: Every Day Cigarettes 1 13.3 Started: 08/01/2011 Smokeless Tobacco: Never Alcohol Use Standard Drinks/Week Comments Not Currently 0 (1 standard drink = 0.6 oz pur e alcohol) [facility] Utilities Answer Date Recorded In the past 12 months has [employer], gas, oil, or water company threatened to [...] Info) Description 11/24/2024 2:45 PM EDT Routine [facility] Health Services - Women's Services [address] [place] [phone] Gemma Horne MD [address] [place] [address], [place] [address] 11/28/2024 11:00 AM EDT Appointment [facility] US Imaging [address] [place] [phone] 11/28/2024 11:30 AM EDT Office Visit Maternal- Medicine at [facility] [address] [place] [phone] Edil Bullock MD [address] [facility], [address] [place] [address] documented as of this encounter Procedures Procedure [...] documented as of this encounter Care Teams Authors Motivational Relationship Specialty Start Date End Date Armen Sánchez DO [address] [facility], [place] [address] PCP - General Family Medicine 08/25/23 documented as of this encounter
--- OUTSIDE RECORDS SUMMARY | 2024-11-23 14:02 | XMS_ITS | Encounter Summary ---
Author Organization [facility] Address [address] [place] [address] Care Team Providers Care Real Estate Management Specialist Name Role Phone Armen Sánchez MD Primary Care Provider [phone] Encounter Details Date Type Department Care Team (Late st Contact Info) Description 10/09/2024 Abstract [facility] [address] [place] [address] [place] [phone] Reanna Fernandez MA Social History Tobacco Use [...] on filedocumented in this encounter Care Teams Real Estate Management Specialist Relationship Specialty Start Date End Date Armen Sánchez MD PCP - General Family Medicine 05/05/24 documented as of this encounter
--- OUTSIDE RECORDS SUMMARY | 2024-11-23 14:02 | XMS_ITS | Encounter Summary ---
Author Organization [facility] tem Address [facility][id number] [address] [place] [address] Care Team Providers Care Nurse Practitioner Adult Name Role Phone PrincessArmen Cedric [place] Primary Care Provider Encounter Details Date Type Department Care Team (Late st Contact Info) Description 09/25/2024 Orders Only Maternal- Medicine at [facility] [address] [place] [address] Ref Prov, [place] [address] Social History Tobacco Use Types Packs/Day Years Used Date Smoking Tobacco: Every Day Cigarettes 1 13.3 Started: 08/01/2011 Smokeless Tobacco: Never Alcohol Use Standard Drinks/Week Comments Not Currently 0 (1 standard drink = 0.6 oz pur e alcohol) [facility] Utilities Answer Date Recorded In the past 12 months has [employer], gas, oil, or water company threatened to [...] Answer Date Recorded Total Score 0 10/27/2023 [facility] [place] of Occupat ional Health - Occupational Stress [...] Recorded Do you need help finding a [facility] career center and/or a training program? No [...] Info) Description 11/24/2024 2:45 PM EDT [facility] - Women's Services [address] [place] [phone] Gemma Horne MD [address] [place] [address], [place] [address] 11/28/2024 11:00 AM EDT Appointment [facility] US Imaging [address] [place] [phone] 11/28/2024 11:30 AM EDT Office Visit Maternal- Medicine at [facility] [address] [place] [phone] Edil Bullock MD [address] [facility], [address] [place] [address] documented as of this encounter Procedures Procedure Name Priority Date/Time Associated Diagnosis Comments US PREG LMTD 1 OR MORE FETUS Routine 09/25/2024 8:28 AM EDT documented in this encounter Results * Ultrasound limited 1 or more fetus (09/25/2024 8:28 AM EDT) Anatomical Region Laterality Modality OB-ARTS THERAPIST Ultrasound us Not In System Ref Prov IMG US ORDERABLES Final R esult documented in this encounter Visit Diagnoses Not on filedocumented in this encounter Additional Health Concerns Assessment Noted Time PHQ-9 Depression Total Score: 0 10/27/19 10:25 AM EDT A Body Mass Index follow-up plan has been documented for the patient 08/10/2023 10:14 AM EDT documented as of this encounter Care Teams Nurse Practitioner Adult Relationship Specialty Start Date End Date Armen Sánchez DO [address] [facility] [place] [address] PCP - General Family Medicine 08/25/23 documented as of this encounter
--- OUTSIDE RECORDS SUMMARY | 2024-11-23 14:03 | XMS_ITS | Clinical Summary ---
Author Organization [employer] [facility] Address [id number] [address] [place] [address] Care Team Providers Care Tool Room Supervisor Name Role Phone SepidehArmen tristan Cedric [place] Primary Care Provider Allergies Active Allergy Reactions Criticality Noted Date Comments Penicillins Other (See Comments) 08/10/2023 Yeast infections Medications FLUoxetine (PROzac) 20 mg capsule Take 1 capsule (20 mg total) by mouth in the morning. 30 capsule 3 4 Active Additional Information Patient not taking.Reported on 11/17/2024 magnesium oxide (MAGOX) 400 mg tablet Take [...] total) by mouth in the morning. Active famotidine (PEPCID) 20 mg tablet Take 1 tablet (20 mg total) by mouth in the morning and 1 tablet (20 mg total) before bedtime. 60 tablet 1 5 Active Immunization, In Clinic,Indicat ions: care, first in third trimester Inject 0.5 mL into the appropriate muscle once for 1 dose. diph,pertuss(abel l),tet vac(PF) Sign this order to satisfy the OSBOP Positive ID requirements for immunization orders. 11/04/19 25 Active Problems Patient Care Coordination No te Formatting of this note migh t be different from the original. 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 Referring OB: Jeannine MFM: Erik Maternal Hx: MSAFP: cfDNA: Low risk XX Carrier: Amnio: Positive for 2 known variants for CF []Genetic Counselling: [x]Peds Cystic Fibrosis Clinic 09/07/24 Complete note in EPIC []Peds Urology: []Peds Ortho: []Peds Surgery: []Peds Neurology: []Peds Neurosurgery: []Peds Craniofacial: [x]NICU Consult: Sched 12/01/24 []Palliative Care Consult: []SGM: []Life Connection: []Kihei: [] MRI: []Nationwide: []UofM: []UH: [x]JO CHS: per Office Delivery Recommendation: [] Term at local hospital [x] Term at [facility] Surveillance Plan: [x] F/U Survey sched 08/25/24 at [facility] [x] Growth q _4_ weeks [...] Diagnosed Date Resolved Date 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 0709/2024 Encounters Date Type Department Care Team Description 11/22/2024 Orders Only [facility] Physicians Internal Medicine - Family Medicine [address] [place] [address] Ref Prov, Not In System 11/21/2024 3:08 PM EDT - 11/21/2024 11:59 PM EDT Hospital Encounter [facility] - Ultrasound [address] [place] [address] Supervision of high risk in third trimester; Cystic fibrosis carrier, antepartum; Abnormal genetic test during ; Maternal care for other (suspected) abnormality and damage, gastrointestinal anomalies, not applicable or unspecified; Cystic fibrosis carrier; Family history of developmental delay; Family history of spina bifida Discharge Disposition: Home 11/21/2024 Orders Only Maternal- Medicine at [facility] [address] [place] [address] Laura Strauss RDMS Abnormal ultrasonic finding on screening of mother, antepartum (Primary Dx) 11/20/2024 Travel 11/17/2024 2:30 PM EDT [facility]ine [facility] [address] [place] [address] Gemma Horne MD GA: 36w3d 11/17/2024 Travel 11/14/2024 3:27 PM EDT - 11/14/2024 11:59 PM EDT Hospital Encounter [facility] US Imaging [address] [place] [address] Supervision of high risk in third trimester; Cystic fibrosis carrier, antepartum; Abnormal genetic test during ; Maternal care for other (suspected) abnormality and damage, gastrointestinal anomalies, not applicable or unspecified; Cystic fibrosis carrier; Family history of developmental delay; Family history of spina bifida Discharge Disposition: Home 11/14/2024 Travel 11/14/2024 Orders Only [facility] Physicians Internal Medicine - Family Medicine [address] [place] [address] Ref Prov, Not In System 11/07/2024 2:50 PM EDT - 11/07/2024 11:59 PM EDT Hospital Encounter [facility] US Imaging [address] [place] [address] Angela Perez MD Supervision of high risk in third trimester; Cystic fibrosis carrier, antepartum; Abnormal genetic test during ; Maternal care for other (suspected) abnormality and damage, gastrointestinal anomalies, not applicable or unspecified; Cystic fibrosis carrier; Family history of developmental delay; Family history of spina bifida Discharge Disposition: Home 11/05/2024 Travel 11/03/2024 1:00 PM EDT Routine [facility] Women's Services [address] [place] [address] Cong Easton MD GA: 34w3d 11/03/2024 Travel 10/30/2024 11:30 AM EDT Office Visit Maternal- Medicine at [facility] [address] [place] [address] Angela Perez MD Cystic fibrosis carrier, antepartum (Primary Dx); Maternal care for other (suspected) abnormality and damage, gastrointestinal anomalies, not applicable or unspecified; Overweight 10/30/2024 10:43 AM EDT - 10/30/2024 11:59 PM EDT Hospital Encounter [facility] US Imaging [address] [place] [address] Abnormal genetic test during ; Maternal care for other (suspected) abnormality and damage, gastrointestinal anomalies, not applicable or unspecified; Cystic fibrosis carrier Discharge Disposition: Home 10/30/2024 Orders Only Maternal- Medicine at [facility] [address] [place] [address] Jocy Maradiaga LPN Supervision of high risk in third trimester (Primary Dx); Cystic fibrosis carrier, antepartum; Abnormal genetic test during ; Maternal care for other (suspected) abnormality and damage, gastrointestinal anomalies, not applicable or unspecified; Cystic fibrosis carrier; Family history of developmental delay; Family history of spina bifida 10/30/2024 Travel 10/30/2024 Orders Only [facility] Physicians Internal Medicine - Family Medicine [address] [place] [address] External, Scanning Provider 10/25/2024 Orders Only [facility] Physicians Internal Medicine - Family Medicine [address] [place] [address] Ref Prov, Not In System 10/24/2024 Telephone Maternal- Medicine at [facility] [address] [place] [address] Suresh Valencia MD 10/23/2024 1:45 PM EDT Support Visit Maternal- Medicine at [facility] [address] [place] [address] Cystic fibrosis carrier, antepartum (Primary Dx); Supervision of high risk in third trimester; Overweight 10/23/2024 12:53 PM EDT - 10/23/2024 11:59 PM EDT Hospital Encounter [facility] US Imaging [address] [place] [address] Abnormal genetic test during ; Maternal care for other (suspected) abnormality and damage, gastrointestinal anomalies, not applicable or unspecified; Cystic fibrosis carrier Discharge Disposition: Home 10/23/2024 Travel 10/19/2024 3:14 PM EDT - 10/19/2024 11:59 PM EDT Hospital Encounter [facility] US Imaging [address] [place] [address] Abnormal genetic test during ; Maternal care for other (suspected) abnormality and damage, gastrointestinal anomalies, not applicable or unspecified; Cystic fibrosis carrier Discharge Disposition: Home 10/19/2024 2:00 PM EDT Initial [facility] Women's Services [address] [place] [address] Rain Bond DO GA: 32w2d 10/18/2024 Travel 10/17/2024 Telephone [facility] Physicians Internal Medicine - Family Medicine [address] [place] [address] Bernadette Zhang CMA 10/13/2024 Orders Only Maternal- Medicine at [facility] [address] [place] [address] Miriam Joseph RN Abnormal genetic test during (Primary Dx); Maternal care for other (suspected) abnormality and damage, gastrointestinal anomalies, not applicable or unspecified; Cystic fibrosis carrier 10/12/2024 3:05 PM EDT - 10/12/2024 11:59 PM EDT Hospital Encounter [facility] US Imaging [address] [place] [address] Obesity in , antepartum; Supervision of high risk , antepartum Discharge Disposition: Home 10/11/2024 Travel 10/10/2024 [facility] Women's Services [address] [place] [address] Lyric Sánchez, TIMOTHY 10/05/2024 3:13 PM EDT - 10/05/2024 11:59 PM EDT Hospital Encounter [facility] US Imaging [address] [facility] [place] [address] Supervision of high risk , antepartum; Obesity in , antepartum Discharge Disposition: Home 10/05/2024 Travel 09/29/2024 4:25 PM EDT Office Visit Maternal- Medicine at [facility] [address] [place] [address] Edil Bullock MD 29 weeks gestation of (Primary Dx); Cystic fibrosis carrier; Maternal care for other (suspected) abnormality and damage, gastrointestinal anomalies, not applicable or unspecified 09/29/2024 2:41 PM EDT - 09/29/2024 11:59 PM EDT Hospital Encounter [facility] US Imaging [address] [place] [address] Suresh Valencia MD Cystic fibrosis carrier; Abnormal genetic test during Discharge Disposition: Home 09/29/2024 Travel 09/25/2024 Orders Only Maternal- Medicine at [facility] [address] [place] [address] Ref Prov, Not In System 09/15/2024 Telephone Maternal- Medicine at [facility] [address] [facility] [place] [address] Miriam Joseph RN 09/07/2024 10:30 AM EDT Office Visit [facility] [address] [facility] [place] [address] Rashida Silva MD 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); Encounter for consultation 09/07/2024 Orders Only Maternal- Medicine at [facility] [address] [place] [address] Miriam Joseph RN 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); Abnormal genetic test during 09/05/2024 Travel 08/25/2024 Travel from Last 3 Months Immunizations Immunization [...] 0.6 oz pur e alcohol) [facility] Utilities Answer Date Recorded In the past 12 months has [employer], gas, oil, or water dough threatened to shut off services in your [...] Pressure 126/70 11/17/2024 2:24 PM EDT Pulse 91 10/30/2024 11:15 AM EDT Temperature 36.5 C (97.7 F) 01/27/2024 9:54 AM EDT Respiratory Rate 18 01/27/2024 9:54 AM EDT Oxygen Saturation 99% 01/27/2024 9:54 AM EDT Inhaled Oxygen Concentration - - Weight 99.5 kg (219 lb 4.8 oz) 11/17/2024 2:24 P M EDT Height 162.6 cm (5' 4.02 ) 10/30/2024 11:15 AM E DT Body Mass Index 37.62 10/30/2024 11:15 AM EDT Plan of Treatment Upcoming Encounters Date Type Department Care Team (Late st Contact Info) Description 11/24/2024 2:45 PM EDT [facility]ine [facility] [address] [place] [address] Gemma Horne MD [address] [place] [address], [address] [address] 11/28/2024 11:00 AM EDT Appointment [facility] US Imaging [address] [place] [address] 11/28/2024 11:30 AM EDT Office Visit Maternal- Medicine at [facility] [address] [place] [address] Edil Bullock MD [address] [address] Health Maintenance Due Date Last Done Comments COVID-19 Vaccine (2023-2 5 season) 2023 12/11/2020, 11/20/2020 Adult BMI Follow Up Plan 08/09/2024 08/10/2023 Influenza Vaccine 12/04/2024 Tobacco Counseling 02/24/2025 08/25/2023 Depression Screening 10/18/2025 10/18/2024 Adult BMI Screening 11/17/2025 11/17/2024 Tobacco Screening 11/17/2025 11/17/2024 Pap Smear 07/07/2027 07/06/2024, 04/0 06/2024, 07/06/2024, [...] developmental delay Family history of spina bifida STREP B SCREEN Routine 11/17/2024 3:01 PM EDT Third trimester US MFM BIOPHYSICAL PROFILE WO NST Routine 11/14/2024 4:07 PM EDT Supervision of high risk in third trimester Cystic fibrosis carrier, antepartum Abnormal genetic test during Maternal care for other (suspected) abnormality and damage, gastrointestinal anomalies, not applicable or unspecified Cystic fibrosis carrier Family history of developmental delay Family history of spina bifida US MFM AMNIOTIC FLUID VOLUME ASSESSMENT Routine [...] fibrosis carrier US PELVIC WITH TRANSVAGINAL Routine 10/26/2024 4:10 PM EDT NONSTRESS TEST Routine 10/24/2024 4:16 PM EDT [...] TRANSVAGINAL Routine 10/19/2024 2:23 PM EDT US MFM AMNIOTIC FLUID VOLUME ASSESSMENT Routine [...] PROFILE WO NST (11/21/2024 3:36 PM EDT) Only the most recent of10 resultswithin the time period is included. Anatomical Region Laterality Modality OB-COMMERCIAL CREDIT SPECIALIST Ultrasound 11/21/2024 3:13 PM EDT Narrative 11/21/2024 3:38 PM EDT NAME: JEREMY BORDEN : 1995 SEX: F Accession Number: [id number] ORDERING PHYSICIAN: ANGELA PEREZ REFERRING PHYSICIAN: CONG EASTON Coding ----- --------- Procedures 67697: biophysical profile; without non-stress testing Indication ----- --------- Abnormal finding on screening of mother-MOB + FOB CF carriers, Depression, Anxiety , cystic fibrosis. History ----- --------- OB History 1. Para 0 [id number] Current ----- --------- Cell free DNA low [...] BORDEN : 1995 SEX: F Accession Number: [id number] ORDERING PHYSICIAN: ANGELA PEREZ REFERRING PHYSICIAN: CONG EASTON Coding ----- --------- Procedures [id number]: biophysical profile; without non-stresstesting Indication ----- --------- Abnormal finding on screening of mother-MOB + FOB CF carriers,Depression, Anxiety , cystic fibrosis. History ----- --------- OB History 1. Para 0 [id number] Current ----- --------- Cell free DNA low [...] thepatient as necessary. us Angela Perez MD [facility] US ORDERABLES Final Resul t * Strep B screen (11/17/2024 3:01 PM EDT) CULTURE RESULTS NEGATIVE FOR GROUP B STREPTOCOCCUS BY NUCLEIC ACID AMPLIFICATION 11/18/2024 1:55 PM EDT [facility] Swab (Vagina/Rectum) 11/17/2024 3:01 PM EDT 11/17/2024 3:03 PM EDT us Gemma Horne MD MICROBIOLOGY - GENERAL ORDERABLE S Final Result [facility] [address] [place] [address], [place] [phone] * Chlamydia/Gonorrhoeae by PCR, Urine (11/03/2024 2:16 PM EDT) GONORRHOEAE PCR, U Negative Negative 11/05/2024 10:16 AM EDT [facility] Comment:Neisseria gonorrhoea e not detected by nucleic acid amplification. This does not exclude the possibility of infection because results are dependent on adequate specimen collection. CHLAMYDIA PCR, U Negative Negative 11/05/2024 10:16 AM EDT [facility] Comment:Chlamydia trachomati s not detected by nucleic acid amplification. This does not exclude the possibility of infection because results are dependent on adequate specimen collection. Urine Urine / Unknown 11/03/2024 2 :16 PM EDT 11/03/2024 2:16 PM EDT us Cong Easton MD MICROBIOLOGY - GENERAL O RDERABLES Final Result Performing Organization Address City/[facility]/ZIP Co de Phone Number [facility] [address] [place] [address], [place] [phone] * Ultrasound pelvic with transvaginal (10/26/2024 4:10 PM EDT) Only the most recent of3 resultswithin the time period is included. Anatomical Region Laterality Modality Body, Pelvis Ultrasound us Not In System Ref Prov IMG US ORDERABLES Final R esult * nonstress test - Maternal Medicine (10/24/2024 [...] ORDERABLES Final Res ult Performing Organization Address [facility] Co de Phone Number ASOBGYN * Ultrasound limited 1 or more fetus (09/25/2024 8:28 AM EDT) Anatomical Region Laterality Modality OB-COMMERCIAL CREDIT SPECIALIST Ultrasound us Not In System Ref Prov [...] ORDERABLES Leti l Result Performing Organization Address City/[facility]/ZIP Co de Phone Number MANUALLY TRANSCRIBED [...] Address Personal/Family Self 1995 [address] [place] [address] [employer] Care Teams Tool Room Supervisor Relationship Specialty Start Date End Date Armen Sánchez DO [address] [place] [address] PCP - General Family Medicine 08/25/23
--- OUTSIDE RECORDS SUMMARY | 2024-11-23 14:03 | XMS_ITS | Encounter Summary ---
Author Organization [facility] Address [address] [place] [address] Care Team Providers Care Director Data Name Role Phone Emi Bronson [facility] Unavailable + [phone] Armen Sánchez MD Primary Care Provider + [phone] Encounter Details Date Type Department Care Team (Late st Contact Info) Description 09/21/2024 Abstract [facility] [address] [place] [phone] Curtis Paez DO [address] [place] [address] Social History Tobacco Use Types Packs/Day Years [...] filedocumented in this encounter Care Teams Director Data Relationship Specialty Start Date End Date Armen Sánchez MD [address] [place] [address] PCP - General Family Medicine 05/05/24 Emi Bronson [facility] [address] [place] [address] Behavioral Health 04/12/24 09/26/24 documented as of this encounter
--- OUTSIDE RECORDS SUMMARY | 2024-11-23 14:03 | XMS_ITS | Encounter Summary ---
Author Organization [facility] Address [address] [place] [address] Care Team Providers Care Ward Secretary Name Role Phone Emi Bronson [facility] Unavailable + [phone] Armen Sánchez MD Primary Care Provider + [phone] Encounter Details Date Type Department Care Team (Late st Contact Info) Description 12/27/2023 Abstract [facility] [address] [place] [address] Emi Bronson, [facility] [address] [place] [address] Social History Tobacco Use Types Packs/Day Years [...] on filedocumented in this encounter Care Teams Ward Secretary Relationship Specialty Start Date End Date Armen Sánchez MD [address] [place] [address] PCP - General Family Medicine 05/05/24 Emi Bronson [facility] [address] [facility] [address] [place] [id number] Behavioral Health 04/12/24 09/26/24 documented as of this encounter
--- OUTSIDE RECORDS SUMMARY | 2024-11-23 14:03 | XMS_ITS | Encounter Summary ---
Author Organization [facility] Address [id number] [address] [place] [address] Care Team Providers Care Post Adoption Coordinator Name Role Phone Armen Sánchez Primary Care Provider [phone] Encounter Details Date Type Department Care Team (Late st Contact Info) Description 08/17/2023 Orders Only [facility] Obstetrics/Gynecology [address] [place] [address] La Murray CMA Screening for STD (sexually [...] Description 11/24/2024 2:45 PM EDT Routine [facility] - Women's Services [facility] [place] [address] Gemma Horne MD [facility] [facility], [address] [address] 11/28/2024 11:00 AM EDT Appointment [facility] US Imaging [address] [facility] [place] [address] 11/28/2024 11:30 AM EDT Office Visit Maternal- Medicine at [facility] [address] [place] [address] Edil Bullock MD [address] [facility], [address] [place] [address] documented as of this encounter Procedures Procedure [...] Final Res ult Performing Organization Address [facility] Co de Phone Number SUNQUEST documented in this encounter Visit Diagnoses Diagnosis Screening for STD (sexually transmitted disease) documented in this encounter Additional Health Concerns Assessment Noted Time PHQ-9 Depression Total Score: 5 08/10/19 9:41 AM EDT A Body Mass Index follow-up plan has been documented for the patient 08/10/2023 10:14 AM EDT documented as of this encounter Care Teams Post Adoption Coordinator Relationship Specialty Start Date End Date Armen Sánchez DO [address] [place] [address] PCP - General Family Medicine 08/25/23 documented as of this encounter
--- OUTSIDE RECORDS SUMMARY | 2024-11-23 14:03 | XMS_ITS | Encounter Summary ---
Author Organization [facility] Address [address] [place] [address] Care Team Providers Care Singing Messenger Name Role Phone Armen Sánchez MD Primary Care Provider Encounter Details Date Type Department Care Team (Late st Contact Info) Description 11/09/2024 Clinisync Result Encounter [facility] External Department Unsolicited Magan Paez, DO [address] [place], [place] [phone] Social History Tobacco Use Types Packs/Day Years [...] AM EDT Narrative 11/09/2024 11:40 [place] [address] Ultrasound Report Signed Patient: SAPNA SERRANO MR#: [id number] : 1995 Acct:[id number] Age/Sex: 29 / F ADM Date: 11/09/24 Loc: [facility] 250-[address]: Magan Paez D.O. Ordering Physician: Magan Paez D.O. Date of Service: 11/09/24 Procedure(s): US OB BPP w non-stress Accession Number(s): [id number] cc: ARMEN SÁNCHEZ ; Magan Paez D.O. [place] [address] Patient Name: SAPNA SERRANO MRN: [facility]:[id number] date: 1995 Sex: F Assigned Patient Location: [facility] Current Patient Location: [facility] Accession/Order Number: [id number] Exam Date: 11/09/2024 11:36 Report Date: 11/09/2024 11:37 At the request of: MAGAN PAEZ DO Procedure: US OB BPP w non-stress BIOPHYSICAL PROFILE: CLINICAL INFORMATION: CYSTIC FIBROSIS CARRIER O09.899 COMPARISON: 11/02/2024 There is a single live intrauterine gestation in cephalic presentation. The reported gestational age is 35 weeks 2 days. The heart rate [id number] beats per minute. FINDINGS: TONE: 1 or [...] Rahman M.D. 11/09/2024 11:37 AM Dictation Location: [place] [address] Electronically authenticated by: [id number] Y Date: 11/09/2024 11:37 Dictated By: Laura Rahman M.D. Signed By: 11/09/24 1140 DD/ 1137 TD/TT: Metal Hanger: Procedure Note Radiology, Radiologist, MD - 11/09/2024 [place] [address] Ultrasound Report Signed Patient: SAPNA SERRANO KMR#: [id number] : 1995Acct:[id number] Age/Sex: Date: 11/09/24 Loc: [facility] 250-[address]: Magan Paez D.O. Ordering Physician: Magan Paez D.O. Date of Service: 11/09/24 Procedure(s): US OB BPP w non-stress Accession Number(s): [id number] cc: ARMEN SÁNCHEZ ; Magan Paez D.O. [place] [address] Patient Name: SAPNA SERRANO MRN: [id number] date: 1995 Sex: F Assigned Patient Location: [facility] Current Patient Location: [facility] Accession/Order Number: [id number] Exam Date: 11/09/2024 11:36 Report Date: 11/09/2024 11:37 At the request of: MAGAN PAEZ DO Procedure: US OB BPP w non-stress BIOPHYSICAL PROFILE: CLINICAL INFORMATION: CYSTIC FIBROSIS CARRIER O09.899 COMPARISON: 11/02/2024 There is a single live intrauterine gestation in cephalic presentation.The reported gestational age is 35 weeks 2 days. The heart [id number] beats per minute. FINDINGS: TONE: 1 or [...] Rahman M.D. 11/09/2024 11:37 AM Dictation Location: [facility] Electronically authenticated by: [id number] Y Date: 1:37 Dictated By: Laura Rahman M.D. Signed By:11/09/24 1140 DD/ 1137 TD/TT: Metal Hanger: us Magan Jeannine DO [facility] Final Result documented in this encounter Visit Diagnoses Not on filedocumented in this encounter Care Teams Singing Messenger Relationship Specialty Start Date End Date Armen Sánchez MD PCP - General Family Medicine 05/05/24 documented as of this encounter
--- OUTSIDE RECORDS SUMMARY | 2024-11-23 14:03 | XMS_ITS | Encounter Summary ---
Author Organization [facility] [employer] s tem Address [id number] [address] [place] [address] Care Team Providers Care Paleontological Helper Name Role Phone MasoodArmen silverman Primary Care Provider [phone] Encounter Details Date Type Department Care Team (Late st Contact Info) Description 05/01/2024 Orders Only [facility] Internal Medicine - Family Medicine [address] [place] [address] Ref Prov, [place] [address] Social History Tobacco Use Types Packs/Day Years Used Date Smoking Tobacco: Every Day Cigarettes 1 13.3 Started: 08/01/2011 Smokeless Tobacco: Never Alcohol Use Standard Drinks/Week Comments Not Currently 0 (1 standard drink = 0.6 oz pur e alcohol) [facility] Utilities Answer Date Recorded In the past 12 months has [employer], gas, oil, or water company threatened to [...] any clubs o r organizations such as baptist groups, unions, fraternal or athletic groups, or [...] Answer Date Recorded Total Score 0 10/27/2023 [facility] [...] Recorded Do you need help finding a [facility] and/or a [...] Info) Description 11/24/2024 2:45 PM EDT Routine [facility] Services - Women's Services [address] [place] [phone] Gemma Horne MD [address] [place] [address], [place] [address] 11/28/2024 11:00 AM EDT Appointment [facility] - [facility] US Imaging [address] [place] [phone] 11/28/2024 11:30 AM EDT Office Visit Maternal- Medicine at [facility] [address] [place] [phone] Edil Bullock MD [address] [facility], [address] [place] [address] documented as of this encounter Procedures Procedure [...] documented as of this encounter Care Teams Paleontological Helper Relationship Specialty Start Date End Date Armen Sánchez DO [address] [facility], [place] [address] PCP - General Family Medicine 08/25/23 documented as of this encounter
--- OUTSIDE RECORDS SUMMARY | 2024-11-23 14:03 | XMS_ITS | Encounter Summary ---
Author Organization [employer] Address [id number] [address] [place] [address] Care Team Providers Care Physician Ophthalmologist Name Role Phone SepidehArmen tristan Cedric [place] Primary Care Provider Encounter Details Date Type Department Care Team (Latest Contact Info) Description 11/20/2024 Travel Social History Tobacco Use Types Packs/Day Years Used Date Smoking Tobacco: Every Day Cigarettes 1 13.3 Started: 08/01/2011 Smokeless Tobacco: Never Alcohol Use Standard Drinks/Week Comments Not Currently 0 (1 standard drink = 0.6 oz pur e alcohol) [facility] Utilities Answer Date Recorded In the [...] Answer Date Recorded Total Score 0 10/18/2024 [facility] ional [facility] - [...] Description 11/24/2024 2:45 PM EDT Routine [facility] - Women's Services [address] [place] [phone] Gemma Horne MD [address] [place] [address], [place] [address] 11/28/2024 11:00 AM EDT Appointment [facility] US Imaging [address] [facility] [place] [address] 11/28/2024 11:30 AM EDT Office Visit Maternal- Medicine at [facility] [address] [place] [address] Edil Bullock MD [address] [facility], [address] [place] [address] documented as of this encounter Visit Diagnoses Not on filedocumented in this encounter Additional Health Concerns Assessment Noted Time PHQ-9 Depression Total Score: 0 10/19/19 25 4:00 AM EDT A Body Mass Index follow-up plan has been documented for the patient 08/10/2023 10:14 AM EDT documented as of this encounter Care Teams Physician Ophthalmologist Relationship Specialty Start Date End Date Armen Sánchez DO [address] [facility], [place] [address] PCP - General Family Medicine 08/25/23 documented as of this encounter
--- OUTSIDE RECORDS SUMMARY | 2024-11-23 14:03 | XMS_ITS | Clinical Summary ---
Author Organization [facility] Address [address] [place] [address] Care Team Providers Care County Tax Assessor Name Role Phone Armen Sánchez MD Primary [...] Diagnosed Date H/O LEEP 10/17/2024 Third trimester ([facility]) 10/03/2024 29 weeks gestation of ([facility]) 2024 HSV infection 10/03/2024 Placental abnormality in third trimester ([facility]) 09/21/2024 History of loop electrosurgi ledy excision procedure (LEEP) of cervix affecting , antepartum ([facility]) 09/21/2024 Cystic fibrosis carrier, antepartum ([facility]) Moderate episode of recurrent major depressive d isorder 10/25/2023 ALICIA (generalized anxiety disorder) 10/25/2023 Estimated Date of Delivery Comme nts Yes 12/12/2024 Based on last me nstrual period of 03/07/2024 Encounters Date Type Department Care Team Description 11/16/2024 Clinisync Result Encounter [facility] External Department Unsolicited Jeannine, Magan, DO 11/09/2024 Clinisync Result Encounter NOMS External Department Unsolicited Jeannine, Magan, DO 11/02/2024 Clinisync Result Encounter NOMS External Department Unsolicited Jeannine, Magan, DO 11/01/2024 Clinisync Result Encounter NOMS External Department Unsolicited Jocy Vaughn PA 10/26/2024 Clinisync Result Encounter NOMS External Department Unsolicited Jeannine, Magan, DO 10/19/2024 Clinisync Result Encounter NOMS External Department Unsolicited Jeannine, Magan, DO 10/17/2024 2:20 PM [place] [phone] Jocy Vaughn PA Third trimester ([facility] 32 weeks gestation of ([facility]); H/O LEEP; Cystic fibrosis carrier, antepartum ([facility]); HSV infection 10/17/2024 Bamboo flowsheet [facility] [place] [address] [place] [phone] Jocy Vaughn PA 10/16/2024 Travel 10/12/2024 Clinisync Result Encounter NOMS External Department Unsolicited Jeannine, Magan, DO 10/09/2024 [place] [address] Reanna Fernandez MA 10/04/2024 Clinisync Result Encounter NOMS External Department Unsolicited Jeannine, Magan, DO 10/04/2024 Telephone [facility] [place] [address] [place] [address] Magan Paez, DO 10/03/2024 8:40 AM [place] [address] Magan Paez, DO Third trimester ([facility]); Cystic fibrosis carrier, antepartum ([facility]); Moderate episode of recurrent major depressive disorder (H[facility]); History of loop electrosurgical excision procedure (LEEP) of cervix affecting , antepartum ([facility]); HSV infection; 30 weeks gestation of ([facility]); Maternal care for other (suspected) abnormality and damage, gastrointestinal anomalies, not applicable or unspecified ([facility]) 10/03/2024 [place] [address] Laura Godwin LPN 10/03/2024 [place] [address] Magan Paez, DO 09/25/2024 Clinisync Result Encounter NOMS External Department Unsolicited Magan Paez, DO 09/21/2024 [place] [address] Magan Paez, DO 09/21/2024 [place] [address] Magan Paez, DO 09/21/2024 Clinisync Result Encounter NOMS External Department Unsolicited Magan Paez, DO 09/21/2024 Clinisync Result Encounter NOMS External Department Unsolicited Magan Paez, DO 09/21/2024 [place] [address] Magan Paez, DO Placental abnormality in third trimester ([facility]); Cystic fibrosis carrier, antepartum ([facility]); History of loop electrosurgical excision procedure (LEEP) of cervix affecting , antepartum ([facility]) 09/21/2024 Telephone [facility] GEN [address] [facility] [place] [address] Conniecrystalnorman Antoinette, HELPER ELECTRICAL 09/19/2024 Telephone [facility] OBGYN [address] [facility] [place] [address] Tato Laura, HELPER ELECTRICAL 09/18/2024 3:40 PM EDT Routine [facility] GEN [place] [address] Magan Paez DO Anxiety, generalized (Primary Dx); Second trimester ([facility]); 27 weeks gestation of ([facility]); Cystic fibrosis carrier, antepartum ([facility]) 09/18/2024 Bamboo flowsheet [facility] [place] GEN [address] [place] [address] Magan Paez DO 09/18/2024 Travel 08/30/2024 9:50 AM EDT Routine [facility] GEN [address] [place] [address] [place] [address] Jocy Vaughn PA Second trimester ([facility]); 25 weeks gestation of ([facility]) 08/30/2024 Clinisync Result Encounter NOMS External Department Unsolicited Magan Paez DO 08/30/2024 Bamboo flowsheet [facility] ESPAÑAGYN [address] [facility] [place] [address] Jocy Vaughn PA from Last 3 Months [...] Diagnosis Comments US OB BPP W NON-STRESS 11/16/2024 3:42 PM EDT US OB BPP W NON-STRESS 11/09/2024 11:37 [...] Routine 10/03/2024 9:04 AM EDT Third trimester ([facility]) US OB BPP W NON-STRESS 09/25/2024 8:08 AM EDT US OB PLACENTA 09/21/2024 2:53 PM EDT US OB CERVICAL LENGTH 09/21/2024 2:40 PM EDT GLUCOSE 1 HOUR Routine 08/30/2024 11:28 AM EDT ALL CBC WITH AUTO DIFF Routine 08/30/2024 11:28 AM EDT POCT URINALYSIS DIPSTICK Routine 08/30/2024 11:24 AM EDT Second trimester ([facility]) from Last 3 Months Results * US OB BPP W NON-STRESS (11/16/2024 3:42 PM EDT) Only the most recent of7 resultswithin the time period is included. Anatomical Region Laterality Modality Other 11/16/2024 3:42 PM EDT Narrative 11/16/2024 3:44 [place] [address] Ultrasound Report Signed Patient: MICHI SERRANO MR#: [id number] : 1995 Acct:[id number] Age/Sex: 29 / F ADM Date: 11/16/24 Loc: [facility] 250-[address]: Magan Paez D.O. Ordering Physician: Magan Paez D.O. Date of Service: 11/16/24 Procedure(s): US OB BPP w non-stress Accession Number(s): [id number] cc: ARMEN SÁNCHEZ Corey D.O. The [address] [address] Patient Name: MICHI SERRANO MRN: TBH:[id number] date: 1995 Sex: F Assigned Patient Location: [facility] Current Patient Location: [facility] Accession/Order Number: [id number] Exam Date: 11/16/2024 15:41 Report Date: 11/16/2024 15:42 At the request of: MAGAN PAEZ DO Procedure: US OB BPP w non-stress Biophysical profile. Reason for exam: Cystic fibrosis COMPARISON: 11/09/2024 TECHNIQUE: Transabdominal imaging of the gravid uterus was obtained. FINDINGS: The clay artisan reports a BPP of 8 out of 8. NAYE is normal at 13.5 cm. heart rate 139 bpm. US/US OB BPP w non-stress IMPRESSION: BPP 8 out of 8. Impression dictated by: Hugo Atkins Jr., D.O. 11/16/2024 3:42 PM Dictation Location: [place] [address] Electronically authenticated by: [id number] Y Date: 11/16/2024 15:42 Dictated By: Hugo Atkins M.D. Signed By: 11/16/24 1544 DD/ 1542 TD/TT: Gunner'S Mate G: Procedure Note Radiology, Radiologist, MD - 11/17/2024 [place] [address] Ultrasound Report Signed Patient: MICHI SERRANO KMR#: [id number] : 1995Acct:[id number] Age/Sex: 29 / FADM Date: 11/16/24 Loc: [facility] 250-[address]: Magan Paez D.O. Ordering Physician: Magan Paez D.O. Date of Service: 11/16/24 Procedure(s): US OB BPP w non-stress Accession Number(s): [id number] cc: ARMEN SÁNCHEZ ; Magan Paez D.O. The [address] [address] Patient Name: MICHI SERRANO MRN: [id number] date: 1995 Sex: F Assigned Patient Location: [facility] Current Patient Location: [facility] Accession/Order Number: [id number] Exam Date: 11/16/2024 15:41 Report Date: 11/16/2024 15:42 At the request of: MAGAN PAEZ DO Procedure: US OB BPP w non-stress Biophysical profile. Reason for exam: Cystic fibrosis COMPARISON: 11/09/2024 TECHNIQUE: Transabdominal imaging of the gravid uterus was obtained. FINDINGS: The clay artisan reports a BPP of 8 out of 8. NAYE is normal at13.5 cm. heart rate 139 bpm. US/US OB BPP w non-stress IMPRESSION: BPP 8 out of 8. Impression dictated by: Hugo Atkins Jr., D.O. 11/16/2024 3:42 PM Dictation Location: [place] [address] Electronically authenticated by: [id number] Y Date: 5:42 Dictated By: Hugo Atkins M.D. Signed By:11/16/24 1544 DD/ 1542 TD/TT: Gunner'S Mate G: us Magan Paez DO [facility] Final Result * US OB CERVICAL LENGTH (11/01/2024 11:35 AM EDT) Only the most recent of2 resultswithin the time period is included. Anatomical Region Laterality Modality Other 11/01/2024 11:3 5 AM EDT Narrative 11/01/2024 11:37 [place] [address] Ultrasound Report Signed Patient: MICHI SERRANO MR#: [id number] : 1995 Acct:[id number] Age/Sex: 29 / F ADM Date: 11/01/24 Loc: US Attending Dr: Jocy Vaughn Ordering Physician: Jocy Vaughn Date of Service: 11/01/24 Procedure(s): US OB cervical length Accession Number(s): [id number] cc: Jocy Vaughn; ARMEN SÁNCHEZ [place] [address] Patient Name: MICHI SERRANO MRN: [id number] date: 1995 Sex: F Assigned Patient Location: US Current Patient Location: US Accession/Order Number: [id number] Exam Date: 11/01/2024 11:33 Report Date: 11/01/2024 [...] Jr., D.O. 11/01/2024 11:35 AM Dictation Location: [place] [address] Electronically authenticated by: [id number] Y Date: 11/01/2024 11:35 Dictated By: Hugo Atkins M.D. Signed By: 11/01/24 1137 DD/ 1135 TD/TT: Gunner'S Mate G: Procedure Note Radiology, Radiologist, MD - 11/01/2024 [place] [address] Ultrasound Report Signed Patient: MICHI SERRANO KMR#: [id number] : 1995Acct:[id number] Age/Sex: 29 / FADM Date: 11/01/24 Loc: US Attending Dr: Jocy Vaughn Ordering Physician: Jocy Vaughn Date of Service: 11/01/24 Procedure(s): US OB cervical length Accession Number(s): [id number] cc: Jocy Vaughn; ARMEN SÁNCHEZ [place] [id number] Patient Name: MICHI SERRANO MRN: [id number] date: 1995 Sex: F Assigned Patient Location: US Current Patient Location: US Accession/Order Number: [id number] Exam Date: 11/01/2024 11:33 Report Date: 11/01/2024 [...] Jr., D.O. 11/01/2024 11:35 AM Dictation Location: [place] [address] Electronically authenticated by: [id number] Y Date: 1:35 Dictated By: Hugo Atkins M.D. Signed By:11/01/24 1137 DD/ 1135 TD/TT: Gunner'S Mate G: us Jocy YOUNG [facility] Final Result * US OB PLACENTA (10/04/2024 9:50 AM EDT) Only the most recent of2 resultswithin the time period is included. Anatomical Region Laterality Modality Other 10/04/2024 9:50 AM EDT Narrative 10/04/2024 9:52 [place] [address] Ultrasound Report Signed Patient: MICHI SERRANO MR#: [id number] : 1995 Acct:[id number] Age/Sex: 29 / F ADM Date: 09/24/24 Loc: [facility] Attending Dr: Magan Paez D.O. Ordering Physician: Magan Paez D.O. Date of Service: 09/24/24 Procedure(s): US OB placenta Accession Number(s): [id number] cc: ARMEN SÁNCHEZ Corey D.O. [address] [address] Patient Name: MICHI SERRANO MRN: [id number] date: 1995 Sex: F Assigned Patient Location: [facility] Current Patient Location: US Accession/Order Number: [id number] Exam Date: 10/04/2024 09:16 Report Date: 10/04/2024 [...] Rahman M.D. 10/04/2024 9:50 AM Dictation Location: [place] [address] Electronically authenticated by: [id number] Y Date: 10/04/2024 09:50 Dictated By: Laura Rahman M.D. Signed By: 10/04/24 0952 DD/ 0950 TD/TT: Gunner'S Mate G: Procedure Note Radiology, Radiologist, - 10/04/2024 [place] [address] Ultrasound Report Signed Patient: MICHI SERRANO KMR#: [id number] : 1995Acct:[id number] Age/Sex: M Date: 09/24/24 Loc: [facility] Attending Dr: Magan Paez D.O. Ordering Physician: Magan Paez D.O. Date of Service: 09/24/24 Procedure(s): US OB placenta Accession Number(s): [id number] cc: ARMEN SÁNCHEZ ; Magan Paez D.O. The [place] [address] Patient Name: MICHI SERRANO MRN: [facility]:[id number] date: 1995 Sex: F Assigned Patient Location: [facility] Current Patient Location: US Accession/Order Number: [id number] Exam Date: 10/04/2024 09:16 Report Date: 10/04/2024 [...] Rahman M.D. 10/04/2024 9:50 AM Dictation Location: [place] [address] Electronically authenticated by: [id number] Y Date: 9:50 Dictated By: Laura Rahman M.D. Signed By:10/04/24 0952 DD/ 0950 TD/TT: Gunner'S Mate G: us Magan Paez DO [facility] Final [...] Positive Urine 10/03/2024 9:04 AM EDT us Amgan Jeannine DO POINT OF CARE TEST ENTER/EDIT OR DERABLES Final Result * GLUCOSE 1 HOUR (08/30/2024 11:28 AM EDT) GLUCOSE 1 HOUR 66 <130 mg/dL TB 08/30/2024 11:2 8 AM EDT 08/30/2024 11:29 AM EDT Narrative [facility] - 08/30/2024 12:05 PM EDT Magan Jeannine DO LAB BLOOD ORDERABLES Final Resul t [facility] * (ABNORMAL) ALL CBC WITH AUTO DIFF (08/30/2024 11:28 AM EDT) TB WBC 11.8(H) 4.0 - 11.0 10 3/uL TBH TB RBC 4.32 4.20 - 5.40 10 6/uL TBH TB HGB 13.0 12.0 - 16.0 g/dL TB TB HCT 38.8 36.0 - 48.0 % TB TB MCV 89.8 81.0 - 99.0 fL TB TB MCH 30.1 26.7 - 34.0 pg TBH TB MCHC 33.5 29.9 - 35.2 g/dL TB TB RDW 13.7 11.0 - 15.0 % TB TB PLT 272 150 - 450 10 3/uL TB TB MPV 9.6 9.5 - 13.5 fL TB NEUTROPHILS PERCENT AUTO 73.4 43.0 - 75.0 % TBH LYMPHOCYTES PERCENT AUTO 17.6(L) 20.5 - 60.0 % TB MONOCYTES PERCENT AUTO 6.0 1.7 - 12.0 [...] Magan Paez DO [facility] Final Result [facility] from Last 3 Months Insurance * Guarantor: Michi Serrano Account Type Relation to Patient Date of Phone Billing Address Personal/Family Self 1995 [address] [place] [address] [facility] Care Teams County Tax Assessor Relationship Specialty Start Date End Date Armen Sánchez MD PCP - General Family Medicine 05/05/24
--- OUTSIDE RECORDS SUMMARY | 2024-11-23 14:03 | XMS_ITS | Encounter Summary ---
Author Organization [facility] Address [address] [facility] [place] [place] [address] Care Team Providers Care Grinder Operator Surface Tool Name Role Phone Emi Bronson [facility] Unavailable + [phone] Armen Sánchez MD Primary Care Provider + [phone] Encounter Details Date Type Department Care Team (Late st Contact Info) Description 05/24/2024 Abstract [facility] [place] [facility] [address] [facility] [place] [phone] Curtis Paez DO [address] [facility] [address] [place] [address] Social History Tobacco Use Types Packs/Day Years [...] on filedocumented in this encounter Care Teams Grinder Operator Surface Tool Relationship Specialty Start Date End Date Armen Sánchez MD [address] [place] [address] PCP - General Family Medicine 05/05/24 Emi Bronson [facility] [address] [place] [address] Behavioral Health 04/12/24 09/26/24 documented as of this encounter
--- OUTSIDE RECORDS SUMMARY | 2024-11-23 14:03 | XMS_ITS | Encounter Summary ---
Author Organization [facility] Address [address] [facility] [place] [address] Care Team Providers Care News Anchor Name Role Phone Emi Bronson [facility] Unavailable + [phone] Armen Sánchez MD Primary Care Provider + [phone] Encounter Details Date Type Department Care Team (Late st Contact Info) Description 09/14/2023 Abstract [facility] [place] [facility] [address] [facility] [address] [place] [phone] Nav Ames MD [address] [facility] [address] [place] [address] Social History Tobacco Use Types Packs/Day Years [...] on filedocumented in this encounter Care Teams News Anchor Relationship Specialty Start Date End Date Armen Sánchez MD [address] [facility] [address] [place] [address] PCP - General Family Medicine 05/05/24 Emi Bronson, [facility] [address] [facility] [address] [place] [phone] Behavioral Health 04/12/24 09/26/24 documented as of this encounter
--- OUTSIDE RECORDS SUMMARY | 2024-11-23 14:03 | XMS_ITS | Encounter Summary ---
Author Organization [facility] Address [address] [place] [address] Care Team Providers Care Superintendent Refuse Disposal Name Role Phone Aiyana, Emi Munson [facility] Unavailable + [phone] Armen Sánchez MD Primary Care Provider + [phone] Encounter Details Date Type Department Care Team (Late st Contact Info) Description 07/11/2024 Orders Only [facility] OBGYClarisa [address] [place] [address] Mary Quinn LPN [address] [place] [address] Social History Tobacco Use Types [...] on filedocumented in this encounter Care Teams Superintendent Refuse Disposal Relationship Specialty Start Date End Date Armen Sánchez MD [address] [place] [address] PCP - General Family Medicine 05/05/24 Emi Bronson [facility] [address] [place] [address] Behavioral Health 04/12/24 09/26/24 documented as of this encounter
--- OUTSIDE RECORDS SUMMARY | 2024-11-23 14:03 | XMS_ITS | Encounter Summary ---
Author Organization [facility] Address [id number] [address] [place] [address] Care Team Providers Care Cold Strip Roller Name Role Phone PrincessArmen Cedric [place] Primary Care Provider Encounter Details Date Type Department Care Team (Late st Contact Info) Description 08/26/2023 Orders Only [facility] Internal Medicine - Family Medicine [address] [place] [address] Scotty Mahoney DO [address] [place] [address] Rectal bleeding (Primary Dx) Social History Tobacco Use Types Packs/Day Years Used Date Smoking Tobacco: Every Day Cigarettes 1 13.3 Started: 08/01/2011 Smokeless Tobacco: Never Alcohol Use Standard Drinks/Week Comments Not Currently 0 (1 standard drink = 0.6 oz pur e alcohol) [facility] Utilities Answer Date Recorded In the past 12 months has [employer], gas, oil, or water [employer] threatened to shut off services in your [...] often do you attend [facility] or jainism services? Never 08/25/2023 Do you belong to [...] Recorded Do you need help finding a [facility] career center and/or a [...] Description 11/24/2024 2:45 PM EDT Routine Center [facility] Health Services - Women's Services [address] [place] [address] Gemma Horne MD [address] [place] [address], [place] [address] 11/28/2024 11:00 AM EDT Appointment [facility] US Imaging [address] [place] [phone] 11/28/2024 11:30 AM EDT Office Visit Maternal- Medicine at [facility] [address] [place] [address] Edil Bullock MD [address] [facility], [address] [place] [address] documented as of this encounter Visit Diagnoses Diagnosis Rectal bleeding- Primary Hemorrhage of rectum and anus documented in this encounter Additional Health Concerns Assessment Noted Time PHQ-9 Depression Total Score: 6 08/25/19 24 9:30 AM EDT A Body Mass Index follow-up plan has been documented for the patient 08/10/2023 10:14 AM EDT documented as of this encounter Care Teams Cold Strip Roller Relationship Specialty Start Date End Date Armen Sánchez DO [address], [place] [address] PCP - General Family Medicine 08/25/23 documented as of this encounter
--- OUTSIDE RECORDS SUMMARY | 2024-11-23 14:03 | XMS_ITS | Encounter Summary ---
Author Organization [facility] [employer] s tem Address [facility] [place]-[id number] [address] [place] [address] Care Team Providers Care Injection Molding Process Technician Name Role Phone MasoodArmen silverman Primary Care Provider Encounter Details Date Type Department Care Team (Late st Contact Info) Description 11/22/2024 Orders Only [facility] Internal Medicine - Family Medicine [address] [place] [address] Ref Prov, [place] [address] Social History Tobacco Use Types Packs/Day Years Used Date Smoking Tobacco: Every Day Cigarettes 1 13.3 Started: 08/01/2011 Smokeless Tobacco: Never Alcohol Use Standard Drinks/Week Comments Not Currently 0 (1 standard drink = 0.6 oz pur e alcohol) [facility] Utilities Answer Date Recorded In the past 12 months has [employer]), gas, oil, or water company threatened to [...] Recorded Do you need help finding a [facility] career center and/or a training program? No [...] [facility] Services - Women's Services [address] [place] [phone] eGmma Horne MD [address] [place] [address], [place] [address] 11/28/2024 11:00 AM EDT Appointment [facility] US Imaging [address] [place] [address] 11/28/2024 11:30 AM EDT Office Visit Maternal- Medicine at [facility] [address] [place] [phone] Edil Bullock MD [address] [facility], [address] [place] [address] documented as of this encounter Procedures Procedure Name Priority Date/Time Associated Diagnosis Comments US PELVIC WITH TRANSVAGINAL Routine 10/26/2024 4:10 PM EDT documented in this encounter Results * Ultrasound pelvic with transvaginal (10/26/2024 4:10 PM EDT) Anatomical Region Laterality Modality Body, [...] documented as of this encounter Care Teams Injection Molding Process Technician Relationship Specialty Start Date End Date Armen Sánchez DO [address] [facility], [place] [address] PCP - General Family Medicine 08/25/23 documented as of this encounter
--- OUTSIDE RECORDS SUMMARY | 2024-11-23 14:03 | XMS_ITS | Encounter Summary ---
Author Organization [facility] tem Address [facility] [place]-[id number] [address] [place] [address] Care Team Providers Care Ticket Printer Name Role Phone Princess Armen Steele DO Primary Care Provider Encounter Details Date Type Department Care Team (Late st Contact Info) Description 06/16/2024 Orders Only Maternal- Medicine at [facility] [address] [place] [phone] Curtis Paez, DO [address] [facility] [place] [address] Social History Tobacco Use Types Packs/Day Years Used Date Smoking Tobacco: Every Day Cigarettes 1 13.3 Started: 08/01/2011 Smokeless Tobacco: Never Alcohol Use Standard Drinks/Week Comments Not Currently 0 (1 standard drink = 0.6 oz pur e alcohol) [facility] Utilities Answer Date Recorded In the past 12 months has [employer], gas, oil, or water [employer] threatened to shut off services in your home? No 08/25/2023 Social Connection and Isolation Panel [NHANES] A nswer Date Recorded In a typical week, how many times do you talk on the phone with family, friends, or neighbors? Three times a week 01/27/2024 How often do you get togethe r with friends or relatives? Once a week 01/27/2024 How often do you attend [facility] or church services? Never 01/27/2024 Do you belong to any clubs o r organizations such as denominational groups, unions, fraternal or athletic groups, or [...] [facility] [address] [place] [phone] Gemma Horne MD [address] [place] [address], [address] [address] 11/28/2024 11:00 AM EDT Appointment [facility] US Imaging [address] [place] [phone] 11/28/2024 11:30 AM EDT Office Visit Maternal- Medicine at [facility] [address] [place] [address] Edil Bullock MD [address] [address] documented as of this encounter Procedures Procedure Name Priority Date/Time Associated Diagnosis Comments UNLISTED LAB TEST Routine 06/08/2024 1:25 PM EST UNLISTED LAB TEST Routine 05/23/2024 1:26 PM EST documented in this encounter Results * Unlisted Lab Test (06/08/2024 1:25 PM EST) us Curtis R Jeannine DO LAB BLOOD ORDERABLES Final Resu lt Performing Organization Address City/[facility] Co de Phone Number MANUALLY TRANSCRIBED RESULTS * Unlisted Lab Test (05/23/2024 1:26 PM EST) us Curtis R Jeannine DO LAB BLOOD ORDERABLES Final Resu lt Performing Organization Address City/[facility] Co de Phone Number MANUALLY TRANSCRIBED RESULTS documented in this encounter Visit Diagnoses Not on filedocumented in this encounter Additional Health Concerns Assessment Noted Time PHQ-9 Depression Total Score: 0 10/27/19 10:25 AM EDT A Body Mass Index follow-up plan has been documented for the patient 08/10/2023 10:14 AM EDT documented as of this encounter Care Teams Ticket Printer Relationship Specialty Start Date End Date Armen Sánchez DO [address], [place] [address] PCP - General Family Medicine 08/25/23 documented as of this encounter
--- OUTSIDE RECORDS SUMMARY | 2024-11-23 14:03 | XMS_ITS | Encounter Summary ---
Author Organization [employer] s tem Address [facility] [place]-[id number] [address] [place] [address] Care Team Providers Care Personal Banking Representative Name Role Phone PrincessArmen Cedric [place] Primary Care Provider [phone] Encounter Details Date Type Department Care Team (Late st Contact Info) Description 08/25/2023 [facility]phone [facility] [address] [place] [address] Bernadette Zhang CMA Social History Tobacco Use Types Packs/Day Years Used Date Smoking Tobacco: Every Day Cigarettes 1 13.3 Started: 08/01/2011 Smokeless Tobacco: Never Alcohol Use Standard Drinks/Week Comments Not Currently 0 (1 standard drink = 0.6 oz pur e alcohol) [facility] Utilities Answer Date Recorded In the past 12 months has [employer], gas, oil, or water company threatened to [...] often do you attend chur ch or sabianist services? Never 08/25/2023 Do you belong to [...] Answer Date Recorded Total Score 6 08/25/2023 [facility] - [...] Health Services - Women's Services [address] [place] [phone] Gemma Horne MD [address] [facility], [address] [address] 11/28/2024 11:00 AM EDT Appointment [facility] US Imaging [address] [place] [address] 11/28/2024 11:30 AM EDT Office Visit Maternal- Medicine at [facility] [address] [place] [address] Edil Bullock MD [address] [facility], [address] [place] [address] documented as of this encounter Visit Diagnoses Not on filedocumented in this encounter Additional Health Concerns Assessment Noted Time PHQ-9 Depression Total Score: 6 08/25/19 9:30 AM EDT A Body Mass Index follow-up plan has been documented for the patient 08/10/2023 10:14 AM EDT documented as of this encounter Care Teams Personal Banking Representative Relationship Specialty Start Date End Date Armen Sánchez DO [address] [facility], [place] [address] PCP - General Family Medicine 08/25/23 documented as of this encounter
--- OUTSIDE RECORDS SUMMARY | 2024-11-23 14:03 | XMS_ITS | Encounter Summary ---
Author Organization [facility] Address [address] [place] [address] Care Team Providers Care Lactation Specialist Name Role Phone Emi Bronson [facility] Unavailable + [phone] Armen Sánchez MD Primary Care Provider + [phone] Encounter Details Date Type Department Care Team (Late st Contact Info) Description 08/10/2023 Abstract [facility] [address] [facility] [place] [address] Curtis Paez DO [address] [place], [place] [phone] Social History Tobacco Use Types Packs/Day Years [...] on filedocumented in this encounter Care Teams Lactation Specialist Relationship Specialty Start Date End Date Armen Sánchez MD [address] [facility] [address] [place] [address] PCP - General Family Medicine 05/05/24 Emi Bronson, [facility] [address] [facility] [address] [place] [address] Behavioral Health 04/12/24 09/26/24 documented as of this encounter
--- OUTSIDE RECORDS SUMMARY | 2024-11-23 14:03 | XMS_ITS | Encounter Summary ---
Author Organization [employer] s tem Address [facility] [id number] [address] [place] [address] Care Team Providers Care Mis Manager Name Role Phone PrincessArmen Cedric [place] Primary Care Provider Encounter Details Date Type Department Care Team (Late st Contact Info) Description 10/17/2024 [facility]phone [facility] [address] [place] [address] Bernadette Zhang CMA Social History Tobacco Use Types Packs/Day Years Used Date Smoking Tobacco: Every Day Cigarettes 1 13.3 Started: 08/01/2011 Smokeless Tobacco: Never Alcohol Use Standard Drinks/Week Comments Not Currently 0 (1 standard drink = 0.6 oz pur e alcohol) [facility] Utilities Answer Date Recorded In the past 12 months has [employer], gas, oil, or water company threatened to [...] often do you attend chur ch or buddhism services? Never 01/27/2024 Do you belong to [...] Answer Date Recorded Total Score 0 10/18/2024 [employer] [facility] - [...] for Health Services - Women's Services [address] [place] [phone] Gemma Horne MD [address] [place] [address], [address] [address] 11/28/2024 11:00 AM EDT Appointment [facility] US Imaging [address] [place] [address] 11/28/2024 11:30 AM EDT Office Visit Maternal- Medicine at [facility] [address] [facility] [address] Edil Bullock MD [address] [facility], [address] [place] [address] documented as of this encounter Visit Diagnoses Not on filedocumented in this encounter Additional Health Concerns Assessment Noted Time PHQ-9 Depression Total Score: 0 10/27/19 10:25 AM EDT A Body Mass Index follow-up plan has been documented for the patient 08/10/2023 10:14 AM EDT documented as of this encounter Care Teams Mis Manager Relationship Specialty Start Date End Date Armen Sánchez DO [address], [facility] [place] [address] PCP - General Family Medicine 08/25/23 documented as of this encounter
--- OUTSIDE RECORDS SUMMARY | 2024-11-23 14:03 | XMS_ITS | Encounter Summary ---
Author Organization [facility] Address [address] [facility] [place] [address] Care Team Providers Care Unix Analyst Name Role Phone Emi Bronson [facility] Unavailable + [phone] Armen Sánchez MD Primary Care Provider + [phone] Encounter Details Date Type Department Care Team (Late st Contact Info) Description 09/21/2024 Abstract [facility] [address] [facility] [place] [phone] Curtis Paez DO [address] [facility] [place] [address] Social History Tobacco Use Types Packs/Day Years [...] on filedocumented in this encounter Care Teams Unix Analyst Relationship Specialty Start Date End Date Armen Sánchez MD [address] [place] [address] PCP - General Family Medicine 05/05/24 Emi Bronson [facility] [address] [place] [address] Behavioral Health 04/12/24 09/26/24 documented as of this encounter
--- OUTSIDE RECORDS SUMMARY | 2024-11-23 14:03 | XMS_ITS | Encounter Summary ---
Author Organization [employer] tem Address [facility] [place]-[id number] [address] [place] [address] Care Team Providers Care Population Health Coach Name Role Phone SepidehArmen tristan Cedric [place] Primary Care Provider [phone] Encounter Details Date Type Department Care Team (Latest Contact Info) Description 11/17/2024 Travel Social History Tobacco Use Types Packs/Day [...] often do you attend chur ch or religion services? Never 01/27/2024 Do you belong to any clubs o r organizations such as confucianism groups, unions, fraternal or athletic groups, or [...] Answer Date Recorded Total Score 0 10/18/2024 [facility] - [...] Description 11/24/2024 2:45 PM EDT Routine [facility] Health Services - Women's Services [address] [place] [phone] Gemma Horne MD [address] [place] [address], [place] [address] 11/28/2024 11:00 AM EDT Appointment [facility] US Imaging [address] [facility] [place] [address] 11/28/2024 11:30 AM EDT Office Visit Maternal- Medicine at [facility] [address] [place] [address] Edil Bullock MD [address] [facility], [address] [place] [address] documented as of this encounter Visit Diagnoses Not on filedocumented in this encounter Additional Health Concerns Assessment Noted Time PHQ-9 Depression Total Score: 0 10/19/19 25 4:00 AM EDT A Body Mass Index follow-up plan has been documented for the patient 08/10/2023 10:14 AM EDT documented as of this encounter Care Teams Population Health Coach Relationship Specialty Start Date End Date Armen Sánchez DO [address] [facility], [place] [address] PCP - General Family Medicine 08/25/23 documented as of this encounter
--- OUTSIDE RECORDS SUMMARY | 2024-11-23 14:03 | XMS_ITS | Encounter Summary ---
Author Organization [facility] [employer] s tem Address [facility]-[id number] [address] [place] [address] Care Team Providers Care Per Diem Name Role Phone MasoodArmen silverman Primary Care Provider Encounter Details Date Type Department Care Team (Late st Contact Info) Description 07/19/2024 Orders Only [facility] Internal Medicine - Family Medicine [address] [place] [address] Ref Prov, [place] [address] Social History Tobacco Use Types Packs/Day Years Used Date Smoking Tobacco: Every Day Cigarettes 1 13.3 Started: 08/01/2011 Smokeless Tobacco: Never Alcohol Use Standard Drinks/Week Comments Not Currently 0 (1 standard drink = 0.6 oz pur e alcohol) [facility] Utilities Answer Date Recorded In the past 12 months has [employer], gas, oil, or water company threatened to [...] Do you need help finding a [facility] career [facility] and/or a training [...] Info) Description 11/24/2024 2:45 PM EDT Routine [facility] Health Services - Women's Services [address] [place] [phone] Gemma Horne MD [address] [place] [address], [place] [address] 11/28/2024 11:00 AM EDT Appointment [facility] US Imaging [address] [place] [address] 11/28/2024 11:30 AM EDT Office Visit Maternal- Medicine at [facility] [address] [place] [phone] Edil Bullock MD [address] [facility], [address] [place] [address] documented as of this encounter Procedures Procedure [...] documented as of this encounter Care Teams Per Diem Relationship Specialty Start Date End Date Armen Sánchez DO [address] [facility], [place] [address] PCP - General Family Medicine 08/25/23 documented as of this encounter
--- OUTSIDE RECORDS SUMMARY | 2024-11-23 14:03 | XMS_ITS | Encounter Summary ---
Author Organization [employer] tem Address [facility] [place]-[id number] [address] [place] [address] Care Team Providers Care Alternative Dispute Resolution Mediator Name Role Phone Armen Sánchez DO Primary Care Provider + [phone] Reason for Referral * Consultation (Routine) - Pending Review Specialty Diagnoses / Procedures Referred By Thom patel Referred To Contact Neonatology Diagnoses Abnormal ultrasonic finding on screening of mother, antepartum Suresh Valencia MD [address], [address] [place] [address] Phone: tel: fax: [facility] [address] [place] [address] Phone: tel: fax: Referral ID Status Reason Start Date Expiration Date Visits Requested Visits Authorized [id number] Pending Review Specialty Services Required 11/21/2024 11/21/2025 1 1 Encounter Details Date Type Department Care Team (Late st Contact Info) Description 11/21/2024 Orders Only Maternal- Medicine at [facility] [address] [place] [phone] Laura Strauss RDMS Abnormal ultrasonic finding on screening of mother, antepartum (Primary Dx) Social History Tobacco Use Types [...] Answer Date Recorded Total Score 0 10/18/2024 [facility] of Occupat ional Health - Occupational Stress [...] you need help finding a [facility] and/or a training program? [...] [facility] - Women's Services [address] [place] [phone] Gemma Horne MD [address] [facility], [address] [address] 11/28/2024 11:00 AM EDT Appointment [facility] US Imaging [address] [place] [address] 11/28/2024 11:30 AM EDT Office Visit Maternal- Medicine at [facility] [address] [place] [phone] Edil Bullock MD [address] [facility] [place], [address] [place] [address] Scheduled Referrals Name Type Priority Associated Diagnoses Order Schedule Ambulatory referral to Neonatology Outpatient Referral Routine Abnormal ultrasonic finding on screening of mother, antepartum 1 Occurrences starting 11/21/2024 until 11/21/2025 documented as of this encounter Visit Diagnoses Diagnosis Abnormal ultrasonic finding on screening of mother, antepartum- Primary documented in this encounter Additional Health Concerns Assessment Noted Time PHQ-9 Depression Total Score: 0 10/19/19 25 4:00 AM EDT A Body Mass Index follow-up plan has been documented for the patient 08/10/2023 10:14 AM EDT documented as of this encounter Care Teams Alternative Dispute Resolution Mediator Relationship Specialty Start Date End Date Armen Sánchez DO [address], [place] [address] PCP - General Family Medicine 08/25/23 documented as of this encounter
--- OUTSIDE RECORDS SUMMARY | 2024-11-23 14:03 | XMS_ITS | Encounter Summary ---
Author Organization [facility] Address [address] [facility] [place] [address] Care Team Providers Care Group Director Name Role Phone Emi Bronson [facility] Unavailable + [phone] Armen Sánchez MD Primary Care Provider + [phone] Encounter Details Date Type Department Care Team (Late st Contact Info) Description 05/09/2024 Abstract [facility] [address] [facility] [place] [phone] Curtis Paez DO [address] [facility] [place] [address] Social History Tobacco Use Types Packs/Day Years [...] on filedocumented in this encounter Care Teams Group Director Relationship Specialty Start Date End Date Armen Sánchez MD [address] [place] [address] PCP - General Family Medicine 05/05/24 Emi Bronson [facility] [address] [place] [address] Behavioral Health 04/12/24 09/26/24 documented as of this encounter
--- OUTSIDE RECORDS SUMMARY | 2024-11-23 14:03 | XMS_ITS | Encounter Summary ---
Author Organization [facility] [employer] s tem Address [facility]-[id number] [address] [place] [address] Care Team Providers Care Weatherization Field Technician Name Role Phone MasoodArmen silverman Primary Care Provider Encounter Details Date Type Department Care Team (Late st Contact Info) Description 10/25/2024 Orders Only [facility] Internal Medicine - Family Medicine [address] [place] [address] Ref Prov, [place] [address] Social History Tobacco Use Types Packs/Day Years Used Date Smoking Tobacco: Every Day Cigarettes 1 13.3 Started: 08/01/2011 Smokeless Tobacco: Never Alcohol Use Standard Drinks/Week Comments Not Currently 0 (1 standard drink = 0.6 oz pur e alcohol) [facility] Utilities Answer Date Recorded In the past 12 months has [employer], gas, oil, or water company threatened to [...] Info) Description 11/24/2024 2:45 PM EDT Routine [facility] Health Services - Women's Services [address] [place] [phone] Gemma Horne MD [address] [place] [address], [place] [address] 11/28/2024 11:00 AM EDT Appointment [facility] US Imaging [address] [place] [address] 11/28/2024 11:30 AM EDT Office Visit Maternal- Medicine at [facility] [address] [place] [phone] Edil Bullock MD [address] [facility], [address] [place] [address] documented as of this encounter Procedures Procedure [...] documented as of this encounter Care Teams Weatherization Field Technician Relationship Specialty Start Date End Date Armen Sánchez DO [address] [facility], [place] [address] PCP - General Family Medicine 08/25/23 documented as of this encounter
--- OUTSIDE RECORDS SUMMARY | 2024-11-23 14:03 | XMS_ITS | Encounter Summary ---
Author Organization [facility] [employer] Address [facility] [id number] [address] [place] [address] Care Team Providers Care Crew Director Name Role Phone SepidehArmen tristan Primary Care Provider Encounter Details Date Type Department Care Team (Late st Contact Info) Description 10/30/2024 Orders Only [facility] Internal Medicine - Family Medicine [address] [place] [address] External, Scanning Provider Social History Tobacco Use Types Packs/Day Years Used Date Smoking Tobacco: Every Day Cigarettes 1 13.3 Started: 08/01/2011 Smokeless Tobacco: Never Alcohol Use Standard Drinks/Week Comments Not Currently 0 (1 standard drink = 0.6 oz pur e alcohol) [facility] Utilities Answer Date Recorded In the past 12 months has [employer] electric, gas, oil, or water company threatened [...] Answer Date Recorded Total Score 0 10/18/2024 [facility] [place] of Occupat ional Health - Occupational Stress [...] Info) Description 11/24/2024 2:45 PM EDT Routine [facility] - Women's Services [address] [place] [phone] Gemma Horne MD [address] [place] [address], [place] [address] 11/28/2024 11:00 AM EDT Appointment [facility] US Imaging [address] [place] [phone] 11/28/2024 11:30 AM EDT Office Visit Maternal- Medicine at [facility] [address] [place] [phone] Edil Bullock MD [address] [address] documented as of this encounter Procedures Procedure [...] documented as of this encounter Care Teams Crew Director Relationship Specialty Start Date End Date Armen Sánchez DO [address] [facility] [place] [address] PCP - General Family Medicine 08/25/23 documented as of this encounter
--- OUTSIDE RECORDS SUMMARY | 2024-11-23 14:04 | XMS_ITS | Encounter Summary ---
Author Organization [facility] Address [address] [place] [address] Care Team Providers Care Newspaper Library Manager Name Role Phone Armen Sánchez MD Primary Care Provider Encounter Details Date Type Department Care Team (Late st Contact Info) Description 11/16/2024 Clinisync Result Encounter [facility] External Department Unsolicited Magan Paez, DO [address] [facility] [address] [place], [place] [id number] Social History Tobacco Use Types Packs/Day Years [...] BPP W NON-STRESS 11/16/2024 3:42 PM EDT documented in this encounter Results * US OB BPP W NON-STRESS (11/16/2024 3:42 PM EDT) Anatomical Region Laterality Modality Other 11/16/2024 3:42 PM EDT Narrative 11/16/2024 3:44 [place] [address] Ultrasound Report Signed Patient: SAPNA SERRANO MR#: [id number] : 1995 Acct:[id number] Age/Sex: 29 / F ADM Date: 11/16/24 Loc: [facility] 250-[address]: Magan Paez D.O. Ordering Physician: Magan Paez D.O. Date of Service: 11/16/24 Procedure(s): US OB BPP w non-stress Accession Number(s): [id number] cc: ARMEN SÁNCHEZ ; Magan Paez D.O. [address] [address] Patient Name: SAPNA SERRANO MRN: [facility]:[id number] date: 1995 Sex: F Assigned Patient Location: [facility] Current Patient Location: [facility] Accession/Order Number: [id number] Exam Date: 11/16/2024 15:41 Report Date: 11/16/2024 15:42 At the request of: MAGAN PAEZ DO Procedure: US OB BPP w non-stress Biophysical profile. Reason for exam: Cystic fibrosis COMPARISON: 11/09/2024 TECHNIQUE: Transabdominal imaging of the gravid uterus was obtained. FINDINGS: The weaver needle loom reports a BPP of 8 out of 8. NAYE is normal at 13.5 cm. heart rate 139 bpm. US/US OB BPP w non-stress IMPRESSION: BPP 8 out of 8. Impression dictated by: Hugo Atkins Jr., D.O. 11/16/2024 3:42 PM Dictation Location: [place] [address] Electronically authenticated by: [id number] Y Date: 11/16/2024 15:42 Dictated By: Hugo Atkins M.D. Signed By: 11/16/24 1544 DD/ 1542 TD/TT: Certified Coatings Inspector: Procedure Note Radiology, Radiologist, - 11/17/2024 [place] [address] Ultrasound Report Signed Patient: SAPNA SERRANO KMR#: [id number] : 1995Acct:[id number] Age/Sex: 29 / FADM Date: 11/16/24 Loc: [facility] 250-[address]: Magan Paez D.O. Ordering Physician: Magan Paez D.O. Date of Service: 11/16/24 Procedure(s): US OB BPP w non-stress Accession Number(s): [id number] cc: ARMEN SÁNCHEZ ; Magan Paez D.O. [place] [id number] Patient Name: SAPNA SERRANO MRN: [id number] date: 1995 Sex: F Assigned Patient Location: [facility] Current Patient Location: [facility] Accession/Order Number: [id number] Exam Date: 11/16/2024 15:41 Report Date: 11/16/2024 15:42 At the request of: MAGAN PAEZ DO Procedure: US OB BPP w non-stress Biophysical profile. Reason for exam: Cystic fibrosis COMPARISON: 11/09/2024 TECHNIQUE: Transabdominal imaging of the gravid uterus was obtained. FINDINGS: The weaver needle loom reports a BPP of 8 out of 8. NAYE is normal at13.5 cm. heart rate 139 bpm. US/US OB BPP w non-stress IMPRESSION: BPP 8 out of 8. Impression dictated by: Hugo Atkins Jr., D.O. 11/16/2024 3:42 PM Dictation Location: [place] [address] Electronically authenticated by: [id number] Y Date: 5:42 Dictated By: Hugo Atkins M.D. Signed By:11/16/24 1544 DD/ 1542 TD/TT: Certified Coatings Inspector: us Magan Jeannine DO [facility] Final Result documented in this encounter Visit Diagnoses Not on filedocumented in this encounter Care Teams Newspaper Library Manager Relationship Specialty Start Date End Date Armen Sánchez MD PCP - General Family Medicine 05/05/24 documented as of this encounter
--- NOTE | 2024-11-23 14:07 | US_ITS ---
[place] [id number] Patient Name: MICHI LUNA MRN: [id number] date: 1995 Sex: F Assigned Patient Location: [facility] Current Patient Location: [facility] Accession/Order Number: [id number] Exam Date: 11/23/2024 14:08 Report Date: 11/23/2024 14:51 At the request of: MAGAN TRISTAN DO Procedure: US OB BPP w non-stress US OB BPP w non-stress 11/23/2024 2:23 PM SIGNS AND SYMPTOMS: ^Cystic fibrosis PROTOCOL: Transabdominal sonographic imaging of the gravid uterus COMPARISON: None FINDINGS: heart rate: 145 bpm Amniotic fluid index: 14.13 cm. The deepest vertical pocket measures 5.4 cm. Estimated age: 37 weeks 2 days Biophysical profile: breathing movements: 2/2 Gross body movements: 2/2 tone: 2/2 Amniotic fluid volume: 2/2 US/US OB BPP w non-stress IMPRESSION: Biophysical profile score: 11/10 Impression dictated by: Geoff Roca M.D. 11/23/2024 2:51 PM Dictation Location: [place] [address] Electronically authenticated by: [id number] Y Date: 11/23/2024 14:51
[2024-11-23 14:22] VITALS: BP 130/74; PULSE 104
== END 2024-11-23 14:50 | disposition home or self-care (01) ==
LOC: US 13:59 → FBC 14:00
PROVIDERS: PCP Family Medicine; Visit Provider Obstetrics & Gynecology
DX: O26.893 Other specified pregnancy related conditions, third trimester (principal); Z3A.37 37 weeks gestation of pregnancy
CPT/HCPCS: 76818

== ENCOUNTER 2024-11-27 15:53 | Outpatient (OUT) | payer OTHER, SELFPAY ==
[2024-11-27 16:07] VITALS: BP 137/74; PULSE 98
== END 2024-11-27 16:40 | disposition home or self-care (01) ==
LOC: FBCO 15:53 → FBC 16:05
PROVIDERS: PCP Family Medicine; Visit Provider Obstetrics & Gynecology
DX: O43.893 Other placental disorders, third trimester (principal); Z3A.37 37 weeks gestation of pregnancy
CPT/HCPCS: 59025

== ENCOUNTER 2024-11-30 13:58 | Outpatient (OUT) | payer OTHER, SELFPAY ==
--- OUTSIDE RECORDS SUMMARY | 2014-12-19 09:30 | XMS_ITS | Continuity of Care Document ---
Author Organization [facility] Address [address] [place] [address] Phone Care Team Providers Care Economics Lecturer Name Role Phone Yasmin Turcios MD Unavailable [...] Diagnoses Date Provider Providers Copied on Encounter [facility], [address], [place], [place], [address], tel:[phone] [facility] No Information Dec- 5 Tam NULL Yasmin[address] [place], [place], [address], [place]. tel:[phone] [facility], [address], [place], [place], [address], tel:[phone] [facility] contraception (chief complaint) Test - NegativeSubse q. Contraceptive Surveillance Dec- 0 5 Tam [address] [place], [place], [address], [place]. tel:[phone] Init Preven Meds E&m New Pt; 18-39 [facility], [address], [place], [place], [address], [place] tel:[phone] [facility] annual exam (chief complaint) ROUTINE QUANTITATIVE MANAGER EXAMINATIONPr egnancy Test - Negative Tam NULL Yasmin. [address] [place], [place], [address], [place]. tel:[phone] Family History Family Member Type Diagnosis Age At Onset Paternal grandmother Problem (finding) breast cancer Payers Payer name Insurance type Covered green party ID Authoriza tion(s) [place] [facility] [place] [id number] Social History Type Description Quantity Date Captured [...]
--- OUTSIDE RECORDS SUMMARY | 2024-11-17 14:30 | XMS_ITS | Encounter Summary ---
Author Organization [employer] tem Address [id number] [address] [place] [address] Care Team Providers Care Conciliation Court Judge Name Role Phone MasoodArmen silverman Primary Care Provider [phone] Reason for Visit * Reason Comments High Risk Gestation Encounter Details Date Type Department Care Team (Late st Contact Info) Description 11/17/2024 2:30 PM EDT [facility] [address] [place] [phone] Gemma Horne MD [address] [place] [address], [place], [place] [phone] GA: 36w3d Social History Tobacco Use Types Packs/Day Years Used Date Smoking Tobacco: Every Day Cigarettes 1 13.3 Started: 08/01/2011 Smokeless Tobacco: Never Alcohol Use Standard Drinks/Week Comments Not Currently 0 (1 standard drink = 0.6 oz pur e alcohol) [facility] Utilities Answer Date Recorded In the past 12 months has th [employer] electric, gas, oil, or water company threatened [...] often do you attend [facility] or faith services? Never 01/27/2024 Do you belong to [...] Answer Date Recorded Total Score 0 10/18/2024 [facility] - [...] Recorded Do you need help finding a [facility] career center and/or a training program? No 08/25/2023 Hunger Screening Answer Date Recorded Within the past 12 months we worried whether our food would run out before we got money to buy more. Never True 11/17/2024 Within the past 12 months th e food we bought just didn't last and we didn't have money to get more. Never True 11/17/2024 Purpose - Life Answer Date Recorded I [...] Sign Reading Time Taken Comments Blood Pressure 126/70 11/17/2024 2:24 PM EDT Pulse - - Temperature - - Respiratory Rate - - Oxygen Saturation - - Inhaled Oxygen Concentration - - Weight 99.5 kg (219 lb 4.8 oz) 11/17/2024 2:24 P M EDT Height - - Body Mass Index 37.62 10/30/2024 11:15 AM EDT documented in this encounter Progress Notes * Beverly Ramirez MD - 11/17/2024 2:30 PM EDT [facility] High Risk Obstetrics Return OB Visit CC: Scheduled OB Visit Subjective: at 36w3d Reports Stepan-Epstein. Denies vaginal bleeding, loss of fluid. Reports active movement. Denies fever, chills, chest pain, shortness of breath, nausea, vomiting, dysuria. Having issues with acid reflux, worsens after drinking black tea. Problem List reviewed and updated PMH/PSH/FH/Soc/Meds/Allergies Reviewed PE: Vitals: 11/17/24 1424 BP: 126/70 Weight: 99.5 kg (219 lb 4.8 oz) Wt Readings from Last 3 Encounters: 11/17/24 99.5 kg (219 lb 4.8 oz) 11/03/24 97 kg (213 lb 12.8 oz) 10/30/24 98.2 kg (216 lb 6.4 oz) General: Alert, NAD HEENT: Atraumatic, normocephalic Abd: Soft, NT, nondistended, gravid Ext: no edema FHTs 140 bpm See flowsheet A/P: at 36w3d Problem List Maternal care for other (suspected) abnormality and damage, gastrointestinal anomalies,not applicable or unspecified Cystic fibrosis carrier, antepartum Overview Fetus found [...] to be further addressed pending clinical course care, first in third trimester Overview Tranasfer from Dr. Paez [place] Dated by LMP c/w 7 week US Initial and 28 week labs--completed Anxiety and depression Chlamydia infection affecting , antepartum Overview 07/2024 Treated with negative test of reinfection Care - S/p Tdap - labor precautions discussed - kick count advised - GBS obtained today Fetus with Two CF causing Variants - Continue twice weekly NST (at [place]), weekly BPP, weekly bowel evaluation and DVP (with MFM) - Serial growth every 4 weeks -- last 10/30/24, nl interval growth (next 11/28/24) - Pt has seen a CF specialist on 09/07/24 - Delivery timing to be discussed with MFM Anxiety/Depression - Stable on Effexor Acid Reflux - Discussed avoidance of trigger foods including acidic and foods with high fat content - Pepcid 20 mg BID, tums prn Control plan: sterilization - [place] medicaid consent form signed 11/06/24. She is aware that she can change her mind prior to the surgery time. RTC in 2 weeks via HROB Beverly Ramirez MD Database Management System Specialist Resident, PGY-4 * Leatha Temple LPN - 11/17/2024 2:30 PM EDT Pt here for 36w3d HR visit States acid reflux and insomnia Feeling good movement No leaking of fluid or blood, no headaches of vision issues Pt states has been having a lot contraction in the last couple of days, but are irregular Has been having sharp pains in cervical area Pt would like a cervical check while getting GBS swab * Gemma Horne MD - 11/17/2024 2:30 PM EDT Attending Attestation: I saw the patient. I participated and was physically present during the critical/thompson portions of the service. I was directly involved in the management and treatment plan of the patient. I reviewed the resident's note. Additional Notes/Findings: 29 y.o. at 36w3d Rto weekly. Problem List Other Anxiety and depression Chlamydia infection affecting , antepartum Overview 07/2024 Treated with negative test of reinfection Cystic fibrosis carrier, antepartum Overview Fetus found [...] pending clinical course Maternal care for other (suspected) abnormality and damage, gastrointestinal anomalies,not applicable or unspecified care, first in third trimester Overview Tranasfer from [facility] [place] Dated by LMP c/w 7 week US Initial and 28 week labs--completed Gemma Horne MD MPH 11/17/2024 3:33 PM documented in this encounter Plan of Treatment Upcoming Encounters Date Type Department Care Team (Late st Contact Info) Description 12/01/2024 10:45 AM EDT [facility] [address] [place] [phone] Tiffany Easton MD [address] [facility] [place] [phone] 12/05/2024 3:30 PM EDT Appointment [facility] US Imaging [address] [place] [address] documented as of this encounter Procedures Procedure Name Priority Date/Time Associated Diagnosis Comments STREP B SCREEN Routine 11/17/2024 3:01 PM EDT Third trimester documented in this encounter Results * Strep B screen (11/17/2024 3:01 PM EDT) CULTURE RESULTS NEGATIVE FOR GROUP B STREPTOCOCCUS BY NUCLEIC ACID AMPLIFICATION 11/18/2024 1:55 PM EDT [facility] Swab (Vagina/Rectum) 11/17/2024 3:01 PM EDT 11/17/2024 3:03 PM EDT us Gemma Horne MD MICROBIOLOGY - GENERAL ORDERABLE S Final Result [facility] [address] [place] [address], documented in this encounter Visit Diagnoses Diagnosis Third trimester - Primary state, incidental Maternal care for other (suspected) abnormality and damage, gastrointestinal anomalies, not applicable or unspecified Cystic fibrosis carrier, antepartum care, first in third trimester Chlamydia infection affecting , antepartum Anxiety and depression Supervision of high risk in third trimester documented in this encounter Additional Health Concerns Assessment Noted Time PHQ-9 Depression Total Score: 0 10/19/19 25 4:00 AM EDT A Body Mass Index follow-up plan has been documented for the patient 08/10/2023 10:14 AM EDT documented as of this encounter Care Teams Conciliation Court Judge Relationship Specialty Start Date End Date Armen Sánchez DO [address], [place] [address] PCP - General Family Medicine 08/25/23 documented as of this encounter
--- OUTSIDE RECORDS SUMMARY | 2024-11-21 15:08 | XMS_ITS | Encounter Summary ---
Author Organization [employer] tem Address [facility]-[id number] [address] [place] [address] Care Team Providers Care Spectroscopist Name Role Phone Armen Sánchez DO Primary Care Provider + [phone] Reason for Referral * Diagnostic Imaging (Routine) [...] Family history of spina bifida Procedures US [facility] with or without consult Angela Gardner MD [address] [facility], 1ST [place] [address] Phone: tel: fax: Maternal- Medicine at [place] [address] [place] [address] Phone: tel: fax: Referral ID Status Reason Start Date Expiration Date V isits Requested Visits Authorized [id number] Pending Review 10/30/2024 10/30/2025 1 1 Reason [...] without consult Angela Gardner MD [address] [facility], 1ST [place] [address] Phone: tel: fax: Maternal- Medicine at [facility] [address] [place] [address] Phone: tel: fax: Referral ID Status Reason Start Date Expiration Date V isits Requested Visits Authorized [id number] Pending Review 10/30/2024 10/30/2025 1 1 Encounter Details Date Type Department Care Team (Latest Contact Info) Description 11/21/2024 3:08 PM EDT - 11/21/2024 11:59 PM EDT Hospital Encounter [facility] - Ultrasound [address] [place] [phone] Supervision of high risk in third trimester; [...] 0.6 oz pur e alcohol) [facility] Utilities Answer Date Recorded In the past 12 months has [email or web address], gas, oil, or water [employer] threatened to shut off services in your [...] Answer Date Recorded Total Score 0 10/18/2024 [facility] of Occupat ional Health - Occupational Stress [...] Recorded Do you need help finding a [facility] career center and/or a training [...] Health Services - Women's Services [address] [facility] [place] [address] Cong Easton MD [address] [facility] [place] [phone] 12/05/2024 3:30 PM EDT Appointment [facility] - [facility] US Imaging [address] [place] [address] documented as of this encounter Procedures Procedure [...] 3:36 PM EDT) Anatomical Region Laterality Modality OB-CARD LACER JACQUARD Ultrasound 11/21/2024 3:13 PM EDT Narrative 11/21/2024 3:38 PM EDT NAME: JEREMY BORDEN : 1995 SEX: F Accession Number: [id number] ORDERING PHYSICIAN: ANGELA GARDNER REFERRING PHYSICIAN: CONG EASTON Coding ----- --------- Procedures 05893: biophysical profile; without non-stress testing Indication ----- --------- Abnormal finding on screening of mother-MOB + FOB CF carriers, Depression, Anxiety , cystic fibrosis. History ----- --------- OB History 1. Para 0 [id number] Current ----- --------- Cell free DNA low [...] BORDEN : 1995 SEX: F Accession Number: [id number] ORDERING PHYSICIAN: ANGELA GARDNER REFERRING PHYSICIAN: CONG EASTON Coding ----- --------- Procedures 81984: biophysical profile; without non-stresstesting Indication ----- --------- Abnormal finding on screening of mother-MOB + FOB CF carriers,Depression, Anxiety , cystic fibrosis. History ----- --------- OB History 1. Para 0 [id number] Current ----- --------- Cell free DNA low [...] week for follow up growth ultrasound, BPPand M office visit. Subsequent follow up or other follow up as clinically determined byprimary OB provider unless otherwise specified by M. Results forwarded to ordering provider so they can follow up with thepatient as necessary. us Angela Gardner MD [facility] US ORDERABLES Final Resul t documented in [...] documented as of this encounter Care Teams Spectroscopist Relationship Specialty Start Date End Date Armen Sánchez DO [address] [facility], [place] [address] PCP - General Family Medicine 08/25/23 documented as of this encounter
--- OUTSIDE RECORDS SUMMARY | 2024-11-24 14:45 | XMS_ITS | Encounter Summary ---
Author Organization [employer] Address [facility] [id number] [address] [place] [address] Care Team Providers Care Distance Education Teacher Name Role Phone MasoodArmen silverman Primary Care Provider [phone] Reason for Visit * Reason Comments High Risk Gestation Encounter Details Date Type Department Care Team (Late st Contact Info) Description 11/24/2024 2:45 PM EDT [facility] [address] [place] [phone] Gemma Horne MD [address] [place] [address], [place], [place] [id number] GA: 37w3d Social History Tobacco Use Types Packs/Day Years Used Date Smoking Tobacco: Every Day Cigarettes 1 13.3 Started: 08/01/2011 Smokeless Tobacco: Never Alcohol Use Standard Drinks/Week Comments Not Currently 0 (1 standard drink = 0.6 oz pur e alcohol) [facility] Utilities Answer Date Recorded In the past 12 months has th [employer] electric, gas, oil, or water company [...] you attend [facility] or sabianism services? Never 01/27/2024 Do you [...] Answer Date Recorded Total Score 0 10/18/2024 [facility] Occupat ional Health [...] Recorded Do you need help finding a [facility] career center and/or a training program? No 08/25/2023 Hunger Screening Answer Date Recorded Within the past 12 months we worried whether our food would run out before we got money to buy more. Never True 11/24/2024 Within the past 12 months th e food we bought just didn't last and we didn't have money to get more. Never True 11/24/2024 Purpose - Life Answer Date Recorded I [...] Sign Reading Time Taken Comments Blood Pressure 130/82 11/24/2024 2:34 PM EDT Pulse - - Temperature - - Respiratory Rate - - Oxygen Saturation - - Inhaled Oxygen Concentration - - Weight 100.6 kg (221 lb 11.2 oz) 11/24/2024 2:34 PM EDT Height - - Body Mass Index 38.04 10/30/2024 11:15 AM EDT documented in this encounter Progress Notes * Corinne Driver, DO - 11/24/2024 2:45 PM EDT [place] [facility] High Risk Obstetrics Visit Return OB CC: Scheduled OB Visit at 37w3d Current Outpatient Medications on File Prior to Visit Medication Sig famotidine (PEPCID) 20 mg tablet Take 1 tablet (20 mg total) by mouth in the morning and 1 tablet (20 mg total) before bedtime. magnesium oxide (MAGOX) 400 mg tablet Take 1 tablet (400 mg total) by mouth in the morning. PNV 19/iron ps,heme/folic/dha ( MV & MIN ORAL) Take 1 tablet by mouth in the morning. venlafaxine XR (EFFEXOR XR) 37.5 mg 24 hr capsule Take 1 capsule (37.5 mg total) by mouth in the morning. FLUoxetine (PROzac) 20 mg capsule Take 1 capsule (20 mg total) by mouth in the morning. (Patient not taking: Reported on 07/28/2024) polyethylene glycol (GLYCOLAX) 17 gram packet Take 17 g by mouth in the morning. No current facility-administered medications on file prior to visit. Patient Active Problem List Diagnosis Rectal bleeding Vitamin D deficiency Depression Anxiety Onychomycosis Overweight Maternal care for other (suspected) abnormality and damage, gastrointestinal anomalies,not applicable or unspecified Cystic fibrosis carrier, antepartum care, first in third trimester Anxiety and depression Chlamydia infection affecting , antepartum Positive FM. Denies Bleeding, SROM, contractions ROS: HEENT: Denies H/A, visual changes RESP: Denies cough, SOB, wheeze CV: Denies chest pain, irregular rhythm ABD: Denies N/V, constipation, heartburn : Denies hematuria, dysuria NEURO: Denies seizure, syncope Problem List reviewed and updated PMH/PSH/FH/Soc/Meds/Allergies reviewed PE BP 130/82 Wt 100.6 kg (221 lb 11.2 oz) LMP 03/07/2024 Comment: test negative 09/03/23 at 1242 BMI 38.04 kg/m?? Alert, NAD Abdomen: Soft, NT, nondistended FHTs 140 Wt Readings from Last 3 Encounters: 11/24/24 100.6 kg (221 lb 11.2 oz) 11/17/24 99.5 kg (219 lb 4.8 oz) 11/03/24 97 kg (213 lb 12.8 oz) See flowsheet Imp/Plan Problem List Maternal care for other (suspected) abnormality and damage, gastrointestinal anomalies,not applicable or unspecified - Primary Cystic fibrosis carrier, antepartum Overview Fetus found [...] week US Initial and 28 week labs--completed Chlamydia infection affecting , antepartum Overview 07/2024 Treated with negative test of reinfection care - labor precautions and movement discussed - GBS negative - S/p Tdap - Delivery timing to be further addressed with MFM Fetus with two CF causing variants - Continue twice weekly NST (at [place]), weekly BPP, weekly bowel evaluation and DVP - Serial growth US q4 weeks -- last 10/30/24, normal interval growth (next scheduled on 11/28/24) - S/p consultation with CF specialist on 09/07/24 - Delivery timing to be discussed with MFM at next appointment Anxiety/depression - Stable on Effexor GERD - Continue Pepcid 20 mg BID and Tums PRN Desires permanent sterilization - [place] medicaid consent form signed 11/06/24 - Patient is undecided at this time RTC 1 weeks via HROB oCrinne Driver DO Display Trimmer Resident, PGY-3 Resident Attestation: The patient was seen and discussed with preceptor Dr. Gemma Horne MD. * Rain Wallace LPN - 11/24/2024 2:45 PM EDT Pt here for routine HROB 37w 3d Denies lof vb ctx Pt c/o Stepan rain Confirms +fm No concerns today * Lyric Sánchez RN - 11/24/2024 2:45 PM EDT Urine dip: trace protein, small bili * Gemma Horne MD - 11/24/2024 2:45 PM EDT Attending Attestation: I saw the patient. I participated and was physically present during the critical/thompson portions of the service. I was directly involved in the management and treatment plan of the patient. I reviewed the resident's note. Additional Notes/Findings: 29 y.o. at 37w3d Problem List Other Chlamydia infection affecting , antepartum Overview 07/2024 Treated with negative test of reinfection Cystic fibrosis carrier, antepartum Overview Fetus found to be positive for CF Growth US 09/29/24 WNL, next 10/30/24 - twice weekly NSTs through primary OB office - Weekly bowel evaluation and DVP through [facility] for now - repeat growth ultrasound in 4 weeks with [facility] - the patient to be presented [...] week US Initial and 28 week labs--completed Rto 1 week. Gemma Horne MD MPH 11/24/2024 3:05 PM documented in this encounter Plan of Treatment Upcoming Encounters Date Type Department Care Team (Late st Contact Info) Description 12/01/2024 10:45 AM EDT [facility] [address] [place] [address] Tiffany Easton MD [address] [facility] [place] [phone] 12/05/2024 3:30 PM EDT Appointment [facility] US Imaging [address] [place] [address] documented as of this encounter Visit Diagnoses Diagnosis Maternal care for other (suspected) abnormality and damage, gastrointestinal anomalies, not applicable or unspecified- Primary Cystic fibrosis carrier, antepartum care, first in third trimester Chlamydia infection affecting , antepartum documented in this encounter Additional Health Concerns Assessment Noted Time PHQ-9 Depression Total Score: 0 10/19/19 25 4:00 AM EDT A Body Mass Index follow-up plan has been documented for the patient 08/10/2023 10:14 AM EDT documented as of this encounter Care Teams Distance Education Teacher Relationship Specialty Start Date End Date Armen Sánchez DO [address], [facility] [address] PCP - General Family Medicine 08/25/23 documented as of this encounter
--- OUTSIDE RECORDS SUMMARY | 2024-11-28 10:54 | XMS_ITS | Encounter Summary ---
Author Organization [employer] tem Address [id number] [address] [place] [address] Care Team Providers Care Frit Maker Name Role Phone Armen Sánchez DO Primary Care Provider + [phone] Reason for Referral * Diagnostic Imaging (Routine) [...] Family history of spina bifida Procedures US [facility] with or without consult Angela Gardner MD [address] [facility], [address] [place] [address] Phone: tel: fax: Maternal- Medicine at [place] [id number] [place] [address] Phone: tel: fax: Referral ID Status Reason Start Date Expiration Date V isits Requested Visits Authorized [id number] Pending Review 10/30/2024 10/30/2025 1 1 Reason [...] Family history of spina bifida Procedures US [facility] with or without consult Angela Gardner MD [address] [facility], [address] [place] [address] Phone: tel: fax: Maternal- Medicine at [facility] [address] [place] [address] Phone: tel: fax: Referral ID Status Reason Start Date Expiration Date V isits Requested Visits Authorized [id number] Pending Review 10/30/2024 10/30/2025 1 1 Encounter Details Date Type Department Care Team (Latest Contact Info) Description 11/28/2024 10:54 AM EDT - 11/28/2024 11:59 PM EDT Hospital Encounter [facility] US Imaging [address] [place] [address] Supervision of high risk in [...] = 0.6 oz pur e alcohol) [facility] Utilities Answer Date Recorded In the past 12 months has [employer], gas, oil, or water [employer] threatened to shut off services in your [...] Answer Date Recorded Total Score 0 10/18/2024 [facility] of Occupat ional Health - Occupational Stress [...] Health Services - Women's Services [address] [facility] [place] [phone] Cong Easton MD [address] [facility] [place] [address] 12/05/2024 3:30 PM EDT Appointment [facility] US Imaging [address] [place] [address] documented as of this encounter Procedures Procedure Name Priority Date/Time Associated Diagnosis Comments US MFM OB FOLLOW-UP, 1 FETUS Routine 11/28/2024 11:57 AM EDT Supervision of high risk in third trimester Cystic fibrosis carrier, antepartum Abnormal genetic test during Maternal care for other (suspected) abnormality and damage, gastrointestinal anomalies, not applicable or unspecified Cystic fibrosis carrier Family history of developmental delay Family history of spina bifida documented in this encounter Results * US MFM OB FOLLOW-UP, 1 FETUS (11/28/2024 11:57 AM EDT) Anatomical Region Laterality Modality OB-BEFORE SCHOOL BABYSITTER Ultrasound 11/28/2024 11:2 0 AM EDT Narrative 11/28/2024 1:09 PM EDT NAME: JEREMY BORDEN : 1995 SEX: F Accession Number: [id number] ORDERING PHYSICIAN: ANGELA GARDNER REFERRING PHYSICIAN: CONG EASTON Coding ----- --------- Procedures 24204: Follow-up Ultrasound, per fetus [address]: biophysical profile; without non-stress testing Indication ----- --------- Abnormal finding on screening of mother-MOB + FOB CF carriers, Depression, Anxiety , Supervision of high risk , recent trauma to abdomen , prominent bowel , cystic fibrosis, Obesity in . History ----- --------- OB History 1. Para 0 [id number] Current ----- --------- Cell free DNA low risk analysis Maternal Assessment ----- --------- Physical Exam Height 163 cm, 5 ft 4 in. Weight 100 kg, 220 lb. Initial weight 86 kg, 190 lb. BMI 37.76 kg/m . Initial BMI 32.61 kg/m . Weight gain 14 kg, 30 lb Method ----- --------- Transabdominal ultrasound examination. View: Suboptimal view: limited by late gestational age. ----- --------- [place] . Number of fetuses: 1 Dating ----- --------- LMP on: 03/07/2024 GA by LMP 38 w + 0 d DOMINIQUE by LMP: 12/12/2024 Previous Ultrasound on: 04/27/2024 Type of prior assessment: GA GA at prior assessment date 7 w + 2 d GA by previous U/S 38 w + 0 d DOMINIQUE by previous Ultrasound: 12/12/2024 Ultrasound examination on: 11/28/2024 GA by U/S based upon: AC, BPD, Femur, HC GA by U/S 35 w + 5 d DOMINIQUE by U/S: 12/28/2024 Assigned: based on the LMP, selected on 07/28/2024 Assigned GA (weeks days) 38 w + 0 d Assigned DOMINIQUE: 12/12/2024 General Evaluation ----- --------- Cardiac activity Present. FHR 136 bpm. Presentation: cephalic Placenta: Placental site: anterior, previously documented away from cervical os Umbilical cord: Cord vessels: 3 vessel cord. Insertion site: documented previously Amniotic fluid: Amount of AF: normal amount. MVP 6.4 cm Biometry ----- --------- Standard BPD 86.8 mm 35w 0d 6% Hadlock OFD 114.6 mm 39w 4d 73% Dank HC 321.8 mm 36w 2d 5% Hadlock Cerebellum tr 47.5 mm 35w 5d 28% Hill AC 323.6 mm 36w 2d 20% Hadlock Femur 68.7 mm 35w 2d 4% Hadlock Humerus 60.3 mm 35w 0d 13% Dank HC / AC 0.99 EFW 2,794 g 15% Hadlock EFW (lb) 6 lb EFW (oz) 3 oz EFW by: Hadlock (INN-CQ-MX-FL) Extended Tibia 57.5 mm 33w 5d 1% Dank Assembly Machine Offbearer 3.2 mm CM 7.5 mm 47% Nicolaides Head / Face / Neck Cephalic index 0.76 3% Nicolaides Extremities / Bony Struc FL / BPD 0.79 FL / HC 0.21 FL / AC 0.21 Other Structures FHR 136 bpm Anatomy ----- --------- The following structures appear normal: Head/Neck: Cranium. Lateral ventricles. Cavum septi pellucidi. Cerebellum. Cisterna magna. Heart/Thorax: 4-chamber view. Cardiac position. Cardiac axis. Cardiac size. Cardiac rhythm. Diaphragm. Abdomen: Stomach. Bladder. The following structures could not be adequately visualized: Abdomen Kidneys. Biophysical Profile ----- --------- 2: breathing movements 2: Gross body movements 2: tone 2: Amniotic fluid volume 8/8 Biophysical profile score Maternal Structures ----- --------- Uterus Visualized Cervix Suboptimal Approach - Transabdominal Right Ovary Not visualized Left Ovary Not visualized Cul de Sac Suboptimal Impression ----- --------- Single viable intrauterine with appropriate interval growth. EFW measures at the 15%, AC measures at the 20%. Amniotic fluid MVP measures 6.4 cm. BPP is 8/8. Recommendations ----- --------- Please see follow up MFM documentation from today's encounter. Subsequent follow up or other follow up as clinically determined by primary OB provider unless otherwise specified by MFM. Results forwarded to ordering provider so they can follow up with the patient as necessary. Procedure Note Edil Bullock MD - 11/28/2024 NAME: JERMEY BORDEN : 1995 SEX: F Accession Number: [id number] ORDERING PHYSICIAN: ANGELA GARDNER REFERRING PHYSICIAN: CONG EASTON Coding ----- --------- Procedures 17906: Follow-up Ultrasound, per fetus [address]: biophysical profile; without non-stress testing Indication ----- --------- Abnormal finding on screening of mother-MOB + FOB CF carriers,Depression, Anxiety , Supervision of high risk , recent trauma to abdomen , prominent bowel , cysticfibrosis, Obesity in . History ----- --------- OB History 1. Para 0 [id number] Current ----- --------- Cell free DNA low risk analysis Maternal Assessment ----- --------- Physical Exam Height 163 cm, 5 ft 4 in. Weight 100 kg, 220 lb. Initialweight 86 kg, 190 lb. BMI 37.76 kg/m . Initial BMI 32.61 kg/m . Weight gain 14 kg, 30 lb Method ----- --------- Transabdominal ultrasound examination. View: Suboptimal view: limited bylate gestational age. ----- --------- [place] . Number of fetuses: 1 Dating ----- --------- LMP on: 03/07/2024 GA by LMP 38 w + 0 d DOMINIQUE by LMP: 12/12/2024 Previous Ultrasound on: 04/27/2024 Type of prior assessment: GA GA at prior assessment date 7 w + 2 d GA by previous U/S 38 w + 0 d DOMINIQUE by previous Ultrasound: 12/12/2024 Ultrasound examination on: 11/28/2024 GA by U/S based upon: AC, BPD, Femur, HC GA by U/S 35 w + 5 d DOMINIQUE by U/S: 12/28/2024 Assigned: based on the LMP, selected on 07/28/2024 Assigned GA (weeks days) 38 w + 0 d Assigned DOMINIQUE: 12/12/2024 General Evaluation ----- --------- Cardiac activity Present. FHR 136 bpm. Presentation: cephalic Placenta: Placental site: anterior, previously documented away fromcervical os Umbilical cord: Cord vessels: 3 vessel cord. Insertion site: documentedpreviously Amniotic fluid: Amount of AF: normal amount. MVP 6.4 cm Biometry ----- --------- Standard BPD 86.8 mm 35w 0d 6% Hadlock OFD 114.6 mm 39w 4d 73% Dank HC 321.8 mm 36w 2d 5% Hadlock Cerebellum tr 47.5 mm 35w 5d 28% Hill AC 323.6 mm 36w 2d 20% Hadlock Femur 68.7 mm 35w 2d 4% Hadlock Humerus 60.3 mm 35w 0d 13% Dank HC / AC 0.99 EFW 2,794 g 15% Hadlock EFW (lb) 6 lb EFW (oz) 3 oz EFW by: Hadlock (OIP-SE-IF-FL) Extended Tibia 57.5 mm 33w 5d 1% Dank Assembly Machine Offbearer 3.2 mm CM 7.5 mm 47% Nicolaides Head / Face / Neck Cephalic index 0.76 3% Nicolaides Extremities / Bony Struc FL / BPD 0.79 FL / HC 0.21 FL / AC 0.21 Other Structures FHR 136 bpm Anatomy ----- --------- The following structures appear normal: Head/Neck: Cranium. Lateral ventricles. Cavum septi pellucidi. Cerebellum.Cisterna magna. Heart/Thorax: 4-chamber view. Cardiac position. Cardiac axis. Cardiacsize. Cardiac rhythm. Diaphragm. Abdomen: Stomach. Bladder. The following structures could not be adequately visualized: Abdomen Kidneys. Biophysical Profile ----- --------- 2: breathing movements 2: Gross body movements 2: tone 2: Amniotic fluid volume 11/10 Biophysical profile score Maternal Structures ----- --------- Uterus Visualized Cervix Suboptimal Approach - Transabdominal Right Ovary Not visualized Left Ovary Not visualized Cul de Sac Suboptimal Impression ----- --------- Single viable intrauterine with appropriate interval growth. EFWmeasures at the 15%, AC measures at the 20%. Amniotic fluid MVP measures 6.4 cm. BPP is 11/10. Recommendations ----- --------- Please see follow up MFM documentation from today's encounter. Subsequent follow up or other follow up as clinically determined byprimary OB provider unless otherwise specified by MFM. Results forwarded to ordering provider so they can follow up with thepatient as necessary. us Angela Gardner MD IMG US ORDERABLES Final Resul t documented in [...] documented as of this encounter Care Teams Frit Maker Relationship Specialty Start Date End Date Armen Sánchez DO [address], [place] [address] PCP - General Family Medicine 08/25/23 documented as of this encounter
--- OUTSIDE RECORDS SUMMARY | 2024-11-28 11:30 | XMS_ITS | Encounter Summary ---
Author Organization [facility] tem Address [id number] [address] [place] [address] Care Team Providers Care Marketing Assistant Retail Division Name Role Phone PrincessArmen Cedric [place] Primary Care Provider [phone] Reason for Visit * Reason Comments cystic fibrosis Encounter Details Date Type Department Care Team (Late st Contact Info) Description 11/28/2024 11:30 AM EDT Office Visit Maternal- Medicine at [facility] [address] [place] [phone] Edil Bullock MD [address] [address] 38 weeks gestation of (Primary Dx); Cystic fibrosis carrier, antepartum; Abnormal genetic test during ; Obesity affecting in third trimester, unspecified obesity type Social History Tobacco Use Types Packs/Day Years Used Date Smoking Tobacco: Every Day Cigarettes 1 13.3 Started: 08/01/2011 Smokeless Tobacco: Never Alcohol Use Standard Drinks/Week Comments Not Currently 0 (1 standard drink = 0.6 oz pur e alcohol) [facility] Utilities Answer Date Recorded In the past 12 months has [employer], gas, oil, or water company threatened to [...] Answer Date Recorded Total Score 0 10/18/2024 [facility] of Occupat ional Health - Occupational Stress [...] Sign Reading Time Taken Comments Blood Pressure 122/84 11/28/2024 11:20 AM EDT Pulse 82 11/28/2024 11:20 AM EDT Temperature - - Respiratory Rate - - Oxygen Saturation - - Inhaled Oxygen Concentration - - Weight 99.9 kg (220 lb 3.2 oz) 11/28/2024 11:20 AM EDT Height 162.6 cm (5' 4 ) 11/28/2024 11:20 AM EDT Body Mass Index 37.8 11/28/2024 11:20 AM EDT documented in this encounter Patient Instructions * Attachments The following attachments cannot be sent through Care Everywhere. * Your baby's movement before ([place] Verdean) documented in this encounter Progress Notes * Edil Bullock MD - 11/28/2024 11:30 AM EDT REASON FOR OFFICE VISIT: Fetus with cystic fibrosis HISTORY OF PRESENT ILLNESS: Sapna Serrano is a pleasant 29 y.o. G0 at 38w0d due on Estimated Date of Delivery: 12/12/24 . has been complicated with cystic fibrosis. She underwent amniocentesis which indicated two CF causing variants ([id number] and [id number]). Currently the patient has no complaints. The patient denies nausea, vomiting, abdominal pain, vaginal bleeding, SOB or chest pain. Reports good movement. Patient Active Problem List Diagnosis Rectal bleeding Vitamin D deficiency Depression Anxiety Onychomycosis Overweight Maternal care for other (suspected) abnormality and damage, gastrointestinal anomalies,not applicable or unspecified Cystic fibrosis carrier, antepartum care, first in third trimester Anxiety and depression Chlamydia infection affecting , antepartum ALLERGIES: Allergies Allergen Reactions Penicillins Other (See Comments) Yeast infections CURRENT MEDICATIONS: Current Outpatient Medications: famotidine (PEPCID) 20 mg tablet, Take 1 tablet (20 mg total) by mouth in the morning and 1 tablet (20 mg total) before bedtime., Disp: 60 tablet, Rfl: 1 FLUoxetine (PROzac) 20 mg capsule, Take 1 capsule (20 mg total) by mouth in the morning. (Patient not taking: Reported on 07/28/2024), Disp: 30 capsule, Rfl: 3 magnesium oxide (MAGOX) 400 mg tablet, Take [...] mouth in the morning., Disp: , Rfl: Past Medical History: Diagnosis Date Abnormal Pap [...] Ultrasound findings are see report. PHYSICAL EXAMINATION: Ht 162.6 cm (5' 4 ) Wt 99.9 kg (220 lb 3.2 oz) LMP 03/07/2024 Comment: test negative 09/03/23 at 1242 BMI 37.80 kg/m?? . Gravid abdomen, Respirations not labored.Normal gait well oriented in time place and person. MFM US 11/28/24 Impression Single viable intrauterine with appropriate interval growth. EFW measures at the 15%, AC measures at the 20%. Amniotic fluid MVP measures 6.4 cm. BPP is 8/8. ASSESSMENT AND PLAN On ultrasound today I do not appreciate bowel dilation. Growth reviewed with the patient. She should continue with the surveillance. She has scheduled NICU consultation. I discussed with the patient that I would recommend delivery by induction 39 weeks due to cystic fibrosis, the patient high BMI, the patient also lives far away from [facility]. Risks of cystic fibrosis with a complications such as but not limited to meconium ileus discussed. She has a seen a cystic fibrosis specialist. Of note the patient is no longer with the father of the and she is currently with a new partner. RECOMMENDATION: - continue with the surveillance - Delivery for now [id number] unless an indication arises for delivery earlier. Thank you for allowing me to participate in Sapna Serrano [facility]. If there are any questions, please do not hesitate to call me. Edil Bullock MD, FACOG (she/hers) Maternal- Medicine [facility] [address] [facility] [address] [place] [address] * Jocy Maradiaga LPN - 11/28/2024 11:30 AM EDT Headache/epigastric pain/blurry vision/swelling? Mild swelling if on feet for too long, resolves with rest and elevation Cramping/contractions? BH contractions Spotting or vaginal bleeding? No Loss or gush of fluid like your water may have broken? No Recent ER visits or hospitalizations? No Any concerns that you would like me to mention to the provider today? No documented in this encounter Plan of Treatment Upcoming Encounters Date Type Department Care Team (Late st Contact Info) Description 12/01/2024 10:45 AM EDT [facility] [address] [place] [phone] Tiffany Easton MD [address] [place] [address] 12/05/2024 3:30 PM EDT Appointment [facility] US Imaging [address] [place] [address] documented as of this encounter Visit Diagnoses Diagnosis 38 weeks gestation of - Primary Cystic fibrosis carrier, antepartum Abnormal genetic test during Obesity affecting in third trimester, unspecified obesity type documented in this encounter Additional Health Concerns Assessment Noted Time PHQ-9 Depression Total Score: 0 10/19/19 25 4:00 AM EDT A Body Mass Index follow-up plan has been documented for the patient 08/10/2023 10:14 AM EDT documented as of this encounter Care Teams Marketing Assistant Retail Division Relationship Specialty Start Date End Date Armen Sánchez DO [address], [place] [address] PCP - General Family Medicine 08/25/23 documented as of this encounter
--- NOTE | 2024-11-30 | US_ITS ---
[address] [address] Patient Name: MICHI LUNA MRN: [id number] date: 1995 Sex: F Assigned Patient Location: [facility] Current Patient Location: Accession/Order Number: [id number] Exam Date: 11/30/2024 14:07 Report Date: 12/01/2024 00:45 At the request of: MAGAN TRISTAN DO Procedure: US OB BPP w non-stress US OB BPP w non-stress 11/30/2024 2:42 PM SIGNS AND SYMPTOMS: ^CYSTIC FIBROSIS CARRIER PROTOCOL: Transabdominal sonographic imaging of the gravid uterus COMPARISON: None FINDINGS: heart rate: 135 bpm Amniotic fluid index: 13.44 cm. The deeper surgical pocket measures 5.2 cm. Estimated gestational age: 30 weeks and 2 days Biophysical profile: breathing movements: 2/2 tone: 2/2 Amniotic fluid volume: 2/2 US/US OB BPP w non-stress IMPRESSION: Biophysical profile: 11/10 Impression dictated by: Geoff Roca M.D. 12/01/2024 12:45 AM Dictation Location: [employer] Electronically authenticated by: [id number] Y Date: 12/01/2024 00:45
--- OUTSIDE RECORDS SUMMARY | 2024-11-30 14:02 | XMS_ITS | Encounter Summary ---
Author Organization [facility] [employer] tem Address [id number] [address] [place] [address] Care Team Providers Care Orthopedics Teacher Name Role Phone MasoodArmen silverman Primary Care Provider [phone] Encounter Details Date Type Department Care Team (Late st Contact Info) Description 11/14/2024 Orders Only [facility] Internal Medicine - Family Medicine [address] [place] [address] Ref Prov, [place] [address] Social History Tobacco Use Types Packs/Day Years Used Date Smoking Tobacco: Every Day Cigarettes 1 13.3 Started: 08/01/2011 Smokeless Tobacco: Never Alcohol Use Standard Drinks/Week Comments Not Currently 0 (1 standard drink = 0.6 oz pur e alcohol) [facility] Utilities Answer Date Recorded In the past 12 months has [employer], gas, oil, or water company threatened to [...] any clubs o r organizations such as mormonism groups, unions, fraternal or athletic groups, or [...] Recorded Do you need help finding a [facility] career center and/or a training program? No [...] Health Services - Women's Services [address] [place] [phone] Tiffany Easton MD [address] [place] [phone] 12/05/2024 3:30 PM EDT Appointment [facility] US Imaging [address] [place] [address] documented as of this encounter Procedures Procedure [...] documented as of this encounter Care Teams Orthopedics Teacher Relationship Specialty Start Date End Date Armen Sánchez DO [address] [facility], [place] [address] PCP - General Family Medicine 08/25/23 documented as of this encounter
--- OUTSIDE RECORDS SUMMARY | 2024-11-30 14:02 | XMS_ITS | Encounter Summary ---
Author Organization [facility] [employer] tem Address [id number] [address] [place] [address] Care Team Providers Care Leather Production Machine Operator Name Role Phone MasoodArmen silverman Primary Care Provider Encounter Details Date Type Department Care Team (Late st Contact Info) Description 10/25/2024 Orders Only [facility] Internal Medicine - Family Medicine [address] [place] [address] Ref Prov, [place] [address] Social History Tobacco Use Types Packs/Day Years Used Date Smoking Tobacco: Every Day Cigarettes 1 13.3 Started: 08/01/2011 Smokeless Tobacco: Never Alcohol Use Standard Drinks/Week Comments Not Currently 0 (1 standard drink = 0.6 oz pur e alcohol) [facility] Utilities Answer Date Recorded In the past 12 months has [employer], gas, oil, or water company threatened to [...] Answer Date Recorded Total Score 0 10/18/2024 [facility] of Occupat ional Health - Occupational Stress [...] you need help finding a [facility] and/or a training [...] Health Services - Women's Services [address] [place] [phone] Tiffany Easton MD [address] [place] [phone] 12/05/2024 3:30 PM EDT Appointment [facility] US Imaging [address] [place] [address] documented as of this encounter Procedures Procedure [...] documented as of this encounter Care Teams Leather Production Machine Operator Relationship Specialty Start Date End Date Armen Sánchez DO [address] [facility], [place] [address] PCP - General Family Medicine 08/25/23 documented as of this encounter
--- OUTSIDE RECORDS SUMMARY | 2024-11-30 14:02 | XMS_ITS | Clinical Summary ---
Author Organization [employer] tem Address [id number] [address] [place] [address] Care Team Providers Care Health Equipment Servicer Name Role Phone PrincessArmen Cedric [place] Primary Care Provider Allergies Active Allergy Reactions Criticality Noted Date Comments Penicillins Other (See Comments) 08/10/2023 Yeast infections Medications FLUoxetine (PROzac) 20 mg capsule Take 1 capsule (20 mg total) by mouth in the morning. 30 capsule 3 4 Active Additional Information Patient not taking.Reported on 11/28/2024 magnesium oxide (MAGOX) 400 mg tablet Take [...] 12/01/24 []Palliative Care Consult: []SGM: []Life Connection: [][place]: [] MRI: []Nationwide: []UofM: []UH: [x]JO CHS: per Office Delivery Recommendation: [] Term at local hospital [x] Term at [facility] Surveillance Plan: [x] F/U Survey sched 08/25/24 at [facility] [x] Growth q _4_ weeks [...] - Weekly bowel evaluation and DVP through MF for now - repeat growth ultrasound in [...] Encounters Date Type Department Care Team Description 11/29/2024 Travel 11/28/2024 11:30 AM EDT Office Visit Maternal- Medicine at [facility] [address] [place] [address] Edil Bullock MD 38 weeks gestation of (Primary Dx); Cystic fibrosis carrier, antepartum; Abnormal genetic test during ; Obesity affecting in third trimester, unspecified obesity type 11/28/2024 10:54 AM EDT - 11/28/2024 11:59 PM EDT Hospital Encounter [facility] - [facility] US Imaging [address] [place] [address] Supervision of high risk in third trimester; Cystic fibrosis carrier, antepartum; Abnormal genetic test during ; Maternal care for other (suspected) abnormality and damage, gastrointestinal anomalies, not applicable or unspecified; Cystic fibrosis carrier; Family history of developmental delay; Family history of spina bifida Discharge Disposition: Home 11/28/2024 Orders Only Maternal- Medicine at [facility] [address] [place] [address] Juhi Reza, TIMOTHY Abnormal ultrasonic finding on screening of mother, antepartum (Primary Dx); Supervision of high risk in third trimester; Cystic fibrosis carrier, antepartum 11/28/2024 Travel 11/24/2024 2:45 PM EDT Routine [facility] Women's Services [address] [place] [address] Gemma Horne MD GA: 37w3d 11/24/2024 Travel 11/22/2024 Orders Only [facility] Internal Medicine - Family Medicine [address] [place] [address] Ref Prov, Not In System 11/21/2024 3:08 PM EDT - 11/21/2024 11:59 PM EDT Hospital Encounter [facility] - Ultrasound [address] [place] [phone] Supervision of high risk in third trimester; Cystic fibrosis carrier, antepartum; Abnormal genetic test during ; Maternal care for other (suspected) abnormality and damage, gastrointestinal anomalies, not applicable or unspecified; Cystic fibrosis carrier; Family history of developmental delay; Family history of spina bifida Discharge Disposition: Home 11/21/2024 Orders Only Maternal- Medicine at [facility] [address] [place] [phone] Laura Strauss RDMS Abnormal ultrasonic finding on screening of mother, antepartum (Primary Dx) 11/20/2024 Travel 11/17/2024 2:30 PM EDT Routine [facility] Women's Services [address] [place] [address] Gemma Horne MD GA: 36w3d 11/17/2024 Travel 11/14/2024 3:27 PM EDT - 11/14/2024 11:59 PM EDT Hospital Encounter [facility] - [facility] US Imaging [address] [place] [address] Supervision of high risk in third trimester; Cystic fibrosis carrier, antepartum; Abnormal genetic test during ; Maternal care for other (suspected) abnormality and damage, gastrointestinal anomalies, not applicable or unspecified; Cystic fibrosis carrier; Family history of developmental delay; Family history of spina bifida Discharge Disposition: Home 11/14/2024 Travel 11/14/2024 Orders Only [facility] Internal Medicine - Family Medicine [address] [place] [address] Ref Prov, Not In System 11/07/2024 2:50 PM EDT - 11/07/2024 11:59 PM EDT Hospital Encounter [facility] - [facility] US Imaging [address] [place] [address] Angela Perez MD Supervision of high risk [...] Health Services - Women's Services [address] [facility] [place] [address] Cong Easton MD GA: 34w3d 11/03/2024 Travel 10/30/2024 11:30 AM EDT Office Visit Maternal- Medicine at [facility] [address] [place] [address] Angela Perez MD Cystic fibrosis carrier, antepartum (Primary Dx); Maternal care for other (suspected) abnormality and damage, gastrointestinal anomalies, not applicable or unspecified; Overweight 10/30/2024 10:43 AM EDT - 10/30/2024 11:59 PM EDT Hospital Encounter [facility] US Imaging [address] [place] [address] Abnormal genetic test during ; Maternal care for other (suspected) abnormality and damage, gastrointestinal anomalies, not applicable or unspecified; Cystic fibrosis carrier Discharge Disposition: Home 10/30/2024 Orders Only Maternal- Medicine at [facility] [address] [place] [address] Jocy Maradiaga LPN Supervision of high risk in third trimester (Primary Dx); Cystic fibrosis carrier, antepartum; Abnormal genetic test during ; Maternal care for other (suspected) abnormality and damage, gastrointestinal anomalies, not applicable or unspecified; Cystic fibrosis carrier; Family history of developmental delay; Family history of spina bifida 10/30/2024 Travel 10/30/2024 Orders Only [facility] Internal Medicine - Family Medicine [address] [place] [address] External, Scanning Provider 10/25/2024 Orders Only [facility] Internal Medicine - Family Medicine [address] [place] [address] Ref Prov, Not In System 10/24/2024 Telephone Maternal- Medicine at [facility] [address] [place] [address] Suresh Valencia MD 10/23/2024 1:45 PM EDT Support Visit Maternal- Medicine at [facility] [address] [place] [address] Cystic fibrosis carrier, antepartum (Primary Dx); Supervision of high risk in third trimester; Overweight 10/23/2024 12:53 PM EDT - 10/23/2024 11:59 PM EDT Hospital Encounter [facility] US Imaging [address] [place] [address] Abnormal genetic test during ; Maternal care for other (suspected) abnormality and damage, gastrointestinal anomalies, not applicable or unspecified; Cystic fibrosis carrier Discharge Disposition: Home 10/23/2024 Travel 10/19/2024 3:14 PM EDT - 10/19/2024 11:59 PM EDT Hospital Encounter [facility] - [facility] US Imaging [address] [place] [address] Abnormal genetic test during ; Maternal care for other (suspected) abnormality and damage, gastrointestinal anomalies, not applicable or unspecified; Cystic fibrosis carrier Discharge Disposition: Home 10/19/2024 2:00 PM EDT Initial [facility] [address] [place] [address] Rain Bond, [place]: 32w2d 10/18/2024 Travel 10/17/2024 Telephone [facility] Internal Medicine - Family Medicine [address] [place] [address] Bernadette Zhang CMA 10/13/2024 Orders Only Maternal- Medicine at [facility] [address] [place] [address] Miriam Joseph RN Abnormal genetic test during (Primary Dx); Maternal care for other (suspected) abnormality and damage, gastrointestinal anomalies, not applicable or unspecified; Cystic fibrosis carrier 10/12/2024 3:05 PM EDT - 10/12/2024 11:59 PM EDT Hospital Encounter [facility] - [facility] US Imaging [address] [place] [address] Obesity in , antepartum; Supervision of high risk , antepartum Discharge Disposition: Home 10/11/2024 Travel 10/10/2024 Abstract [facility] [address] [place] [address] Lyric Sánchez, TIMOTHY 10/05/2024 3:13 PM EDT - 10/05/2024 11:59 PM EDT Hospital Encounter [facility] - [facility] US Imaging [address] [place] [address] Supervision of high risk , antepartum; Obesity in , antepartum Discharge Disposition: Home 10/05/2024 Travel 09/29/2024 4:25 PM EDT Office Visit Maternal- Medicine at [facility] [address] [place] [address] Edil Bullock MD 29 weeks gestation of (Primary Dx); Cystic fibrosis carrier; Maternal care for other (suspected) abnormality and damage, gastrointestinal anomalies, not applicable or unspecified 09/29/2024 2:41 PM EDT - 09/29/2024 11:59 PM EDT Hospital Encounter [facility] - [facility] US Imaging [address] [place] [address] Suresh Valencia MD Cystic fibrosis carrier; Abnormal genetic test during Discharge Disposition: Home 09/29/2024 Travel 09/25/2024 Orders Only Maternal- Medicine at [facility] [address] [place] [address] Ref Prov, Not In System 09/15/2024 Telephone Maternal- Medicine at [facility] [address] [place] [address] Miriam Joseph RN 09/07/2024 10:30 AM EDT Office Visit [facility] [address] [facility] [address] [place] [address] Rashida Silva MD 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); Encounter for consultation 09/07/2024 Orders Only Maternal- Medicine at [facility] [address] [place] [address] Miriam Joseph RN 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); Abnormal genetic test during 09/05/2024 Travel from Last 3 Months Immunizations Immunization [...] = 0.6 oz pur e alcohol) [facility] Utilities Answer Date Recorded In the past 12 months has e [employer], gas, oil, or water [employer] threatened to shut off services in your [...] Recorded Total Score 0 10/18/2024 [facility] of Occupat ional Health - Occupational Stress [...] Pulse 82 11/28/2024 11:20 AM EDT Temperature 36.5 C (97.7 F) 01/27/2024 9:54 AM EDT Respiratory Rate 18 01/27/2024 9:54 AM EDT Oxygen Saturation 99% 01/27/2024 9:54 AM EDT Inhaled Oxygen Concentration - - Weight 99.9 kg (220 lb 3.2 oz) 11/28/2024 11:20 AM EDT Height 162.6 cm (5' 4 ) 11/28/2024 11:20 AM EDT Body Mass Index 37.8 11/28/2024 11:20 AM EDT Plan of Treatment Upcoming Encounters Date Type Department Care Team (Late st Contact Info) Description 12/01/2024 10:45 AM EDT [facility] [address] [place] [address] Cong Easton MD [address] [place] [phone] 12/05/2024 3:30 PM EDT Appointment [facility] US Imaging [address] [place] [address] Health Maintenance Due Date Last Done Comments COVID-19 Vaccine (2023-2 5 season) 2023 12/11/2020, 11/20/2020 Adult BMI Follow Up Plan 08/09/2024 08/10/2023 Influenza Vaccine 12/04/2024 Tobacco Counseling 02/24/2025 08/25/2023 Depression Screening 10/18/2025 10/18/2024 Adult BMI Screening 11/28/2025 11/28/2024 Tobacco Screening 11/28/2025 11/28/2024 Pap Smear 07/07/2027 07/06/2024, 04/0 06/2024, 07/06/2024, Additional history exists DTaP,Tdap and Td Vaccines (8 - Td or Tdap) 11/03/2034 11/03/2024, 08/16/2018, 11/06/1998, Additional history exists Medical Devices Not on file Procedures Procedure Name Priority Date/Time Associated Diagnosis Comments US [facility] OB FOLLOW-UP, 1 FETUS Routine 11/28/2024 11:57 AM EDT Supervision of high risk in third trimester Cystic fibrosis carrier, antepartum Abnormal genetic test during Maternal care for other (suspected) abnormality and damage, gastrointestinal anomalies, not applicable or unspecified Cystic fibrosis carrier Family history of developmental delay Family history of spina bifida US MFM BIOPHYSICAL PROFILE WO NST Routine [...] Routine 08/30/2024 CBC (NO DIFF) Routine 08/30/2024 HIGH RISK HPV W/FAUSTINA Routine 07/06/2024 from Last 3 Months or Most Recently Relevant to Health Maintenance Results * US MFM OB FOLLOW-UP, 1 FETUS (11/28/2024 11:57 AM EDT) Only the most recent of10 resultswithin the time period is included. Anatomical Region Laterality Modality OB-TRAINING ASSISTANT Ultrasound 11/28/2024 11:2 0 AM EDT Narrative 11/28/2024 1:09 PM EDT NAME: JEREMY BORDEN : 1995 SEX: F Accession Number: [id number] ORDERING PHYSICIAN: ANGELA PEREZ REFERRING PHYSICIAN: CONG EASTON Coding ----- --------- Procedures 55498: Follow-up Ultrasound, per fetus 27922: biophysical profile; without non-stress testing Indication ----- --------- Abnormal finding on screening of mother-MOB + FOB CF carriers, Depression, Anxiety , Supervision of high risk , recent trauma to abdomen , prominent bowel , cystic fibrosis, Obesity in . History ----- --------- OB History 1. Para 0 [id number] Current ----- --------- Cell free DNA low [...] EFW (oz) 3 oz EFW by: Hadlock ([id number]) Extended Tibia 57.5 mm 33w 5d 1% Dank Nitroglycerin Neutralizer 3.2 mm CM 7.5 mm 47% Nicolaides [...] Note Edil Bullock MD - 11/28/2024 NAME: JEREMY BORDEN : 1995 SEX: F Accession Number: [id number] ORDERING PHYSICIAN: ANGELA PEREZ REFERRING PHYSICIAN: CONG EASTON Coding ----- --------- Procedures 47729: Follow-up Ultrasound, per fetus 72034: biophysical profile; without non-stress testing Indication ----- --------- Abnormal finding on screening of mother-MOB + FOB CF carriers,Depression, Anxiety , Supervision of high risk , recent trauma to abdomen , prominent bowel , cysticfibrosis, Obesity in . History ----- --------- OB History 1. Para 0 [id number] Current ----- --------- Cell free DNA low [...] EFW (oz) 3 oz EFW by: Hadlock ([id number]) Extended Tibia 57.5 mm 33w 5d 1% Dank Nitroglycerin Neutralizer 3.2 mm CM 7.5 mm 47% Nicolaides [...] can follow up with thepatient as necessary. Angela Perez MD [facility] ORDERABLES Final Resul t * Strep B screen (11/17/2024 3:01 PM EDT) CULTURE RESULTS NEGATIVE FOR GROUP B STREPTOCOCCUS BY NUCLEIC ACID AMPLIFICATION 11/18/2024 1:55 PM EDT [facility] Swab (Vagina/Rectum) 11/17/2024 3:01 PM EDT 11/17/2024 3:03 PM EDT us Gemma Horne MD MICROBIOLOGY - GENERAL ORDERABLE S Final Result [facility] [address] [place] [address], [place] [phone] * Chlamydia/Gonorrhoeae by PCR, Urine (11/03/2024 2:16 PM EDT) GONORRHOEAE PCR, U Negative Negative 11/05/2024 10:16 AM EDT [facility] Comment:Neisseria gonorrhoea e not detected by nucleic acid amplification. This does not exclude the possibility of infection because results are dependent on adequate specimen collection. CHLAMYDIA PCR, U Negative Negative 11/05/2024 10:16 AM EDT [facility] Comment:Chlamydia trachomati s not detected by nucleic acid amplification. This does not exclude the possibility of infection because results are dependent on adequate specimen collection. Urine Urine / Unknown 11/03/2024 2 :16 PM EDT 11/03/2024 2:16 PM EDT us Cong Easton MD MICROBIOLOGY - GENERAL O RDERABLES Final Result [facility] [address] [place] [address], [place] [phone] * Ultrasound pelvic with transvaginal (10/26/2024 4:10 [...] ORDERABLES Final Res ult Performing Organization Address City/[facility] Co de Phone Number ASOBGYN * Ultrasound limited 1 or more fetus (09/25/2024 8:28 AM EDT) Anatomical Region Laterality Modality OB-TRAINING ASSISTANT Ultrasound us Not In System Ref Prov [...] ORDERABLES Leti l Result Performing Organization Address City/[facility] Co de Phone Number MANUALLY TRANSCRIBED RESULTS * CBC without diff (08/30/2024) Hemoglobin 13.0 MANUALLY TRANSCRIBED RESULTS Hematocrit 38.8 MANUALLY TRANSCRIBED RESULTS Rbc Mcv (Fl) By Automated Count 89.8 MANUALLY TRANSCRIBED RESULTS Platelets 272 MANUALLY TRANSCRIBED RESULTS Blood Venous blood / Unknown us Not In System Ref Prov LAB BLOOD ORDERABLES Leti l Result Performing Organization Address City/[facility] Co de Phone Number MANUALLY TRANSCRIBED RESULTS * High risk HPV w/faustina (07/06/2024) Other High Risk Hpv NEGATIVE MANUALLY TRANSCRIBED RESULTS Thin Prep Cervix uteri structure / Unknown us Not In System Ref Prov LAB BLOOD ORDERABLES Leti l Result Performing Organization Address City/[facility]/ZIP Co de Phone Number MANUALLY TRANSCRIBED RESULTS from Last 3 Months or Most Recently Relevant to Health Maintenance Insurance [employer] Care Teams Health Equipment Servicer Relationship Specialty Start Date End Date Armen Sánchez DO [address], [facility] [address] PCP - General Family Medicine 08/25/23
--- OUTSIDE RECORDS SUMMARY | 2024-11-30 14:02 | XMS_ITS | Encounter Summary ---
Author Organization [facility] tem Address [id number] [address] [place] [address] Care Team Providers Care Member Services Coordinator Name Role Phone Princess Armen Steele DO Primary Care Provider [phone] Encounter Details Date Type Department Care Team (Late st Contact Info) Description 06/16/2024 Orders Only Maternal- Medicine at [facility] [address] [place] [address] Curtis Paez, DO [address] [place] [address] Social History Tobacco Use Types Packs/Day Years Used Date Smoking Tobacco: Every Day Cigarettes 1 13.3 Started: 08/01/2011 Smokeless Tobacco: Never Alcohol Use Standard Drinks/Week Comments Not Currently 0 (1 standard drink = 0.6 oz pur e alcohol) [facility] Utilities Answer Date Recorded In the past 12 months has [employer], gas, oil, or water [employer] threatened to shut off services in your home? No 08/25/2023 Social Connection and Isolation Panel [NHANES] A nswer Date Recorded In a typical week, how many times do you talk on the phone with family, friends, or neighbors? Three times a week 01/27/2024 How often do you get togethe r with friends or relatives? Once a week 01/27/2024 How often do you attend [facility] or mormonism services? Never 01/27/2024 Do you belong to [...] Answer Date Recorded Total Score 0 10/27/2023 [facility] of Occupat ional Health - Occupational Stress [...] - Women's Services [address] [place] [address] Tiffany Easton MD [address] [place] [address] 12/05/2024 3:30 PM EDT Appointment [facility] US Imaging [address] [place] [address] documented as of this encounter Procedures Procedure Name Priority Date/Time Associated Diagnosis Comments UNLISTED LAB TEST Routine 06/08/2024 1:25 PM EST UNLISTED LAB TEST Routine 05/23/2024 1:26 PM EST documented in this encounter Results * Unlisted Lab Test (06/08/2024 1:25 PM EST) Curtis Paez DO LAB BLOOD ORDERABLES Final Resu lt MANUALLY TRANSCRIBED RESULTS * Unlisted Lab Test (05/23/2024 1:26 PM EST) Curtis Paez DO LAB BLOOD ORDERABLES Final Resu lt MANUALLY TRANSCRIBED RESULTS documented in this encounter Visit Diagnoses Not on filedocumented in this encounter Additional Health Concerns Assessment Noted Time PHQ-9 Depression Total Score: 0 10/26/ 10:25 AM EDT A Body Mass Index follow-up plan has been documented for the patient 08/10/2023 10:14 AM EDT documented as of this encounter Care Teams Member Services Coordinator Relationship Specialty Start Date End Date Armen Sánchez DO [address] [facility], [place] [address] PCP - General Family Medicine 08/25/23 documented as of this encounter
--- OUTSIDE RECORDS SUMMARY | 2024-11-30 14:02 | XMS_ITS | Encounter Summary ---
Author Organization [facility] Address [address] [place] [address] Care Team Providers Care Police Pilot Name Role Phone Armen Sánchez MD Primary Care Provider [phone] Encounter Details Date Type Department Care Team (Late st Contact Info) Description 10/03/2024 Abstract [facility] [address] [place] [address] Curtis Paez DO [address] [place], [place] [id number] Social History Tobacco Use Types Packs/Day Years [...] on filedocumented in this encounter Care Teams Police Pilot Relationship Specialty Start Date End Date Armen Sánchez MD PCP - General Family Medicine 05/05/24 documented as of this encounter
--- OUTSIDE RECORDS SUMMARY | 2024-11-30 14:02 | XMS_ITS | Encounter Summary ---
Author Organization [facility] Address [address] [place] [address] Care Team Providers Care Adobe Architect Name Role Phone Armen Sánchez MD Primary Care Provider [phone] Encounter Details Date Type Department Care Team (Late st Contact Info) Description 10/09/2024 Abstract [facility] [address] [place] [address] [place] [phone] Reanna Fernandez MA Social History Tobacco Use [...] on filedocumented in this encounter Care Teams Adobe Architect Relationship Specialty Start Date End Date Armen Sánchez MD PCP - General Family Medicine 05/05/24 documented as of this encounter
--- OUTSIDE RECORDS SUMMARY | 2024-11-30 14:02 | XMS_ITS | Encounter Summary ---
Author Organization [employer] tem Address [id number] [address] [place] [address] Care Team Providers Care Post Anesthesia Care Unit Nurse Name Role Phone PrincessArmen Cedric [place] Primary Care Provider Encounter Details Date Type Department Care Team (Late st Contact Info) Description 10/17/2024 [facility] [address] [place] [address] Bernadette Zhang CMA Social History Tobacco Use Types Packs/Day Years Used Date Smoking Tobacco: Every Day Cigarettes 1 13.3 Started: 08/01/2011 Smokeless Tobacco: Never Alcohol Use Standard Drinks/Week Comments Not Currently 0 (1 standard drink = 0.6 oz pur e alcohol) [facility] Utilities Answer Date Recorded In the past 12 months has [employer], gas, oil, or water company threatened [...] often do you attend chur ch or baptist services? Never 01/27/2024 Do you belong to [...] Answer Date Recorded Total Score 0 10/18/2024 [facility] of Occupat ional Health - Occupational [...] Health Services - Women's Services [address] [place] [address] Tiffany Easton MD [address] [facility] [place] [address] 12/05/2024 3:30 PM EDT Appointment [facility] Imaging [address] [place] [address] documented as of this encounter Visit Diagnoses Not on filedocumented in this encounter Additional Health Concerns Assessment Noted Time PHQ-9 Depression Total Score: 0 10/27/19 10:25 AM EDT A Body Mass Index follow-up plan has been documented for the patient 08/10/2023 10:14 AM EDT documented as of this encounter Care Teams Post Anesthesia Care Unit Nurse Relationship Specialty Start Date End Date Armen Sánchez DO [address] [facility] [place] [address] PCP - General Family Medicine 08/25/23 documented as of this encounter
--- OUTSIDE RECORDS SUMMARY | 2024-11-30 14:02 | XMS_ITS | Clinical Summary ---
Demographics Address [address] [place] [address] Home Phone Work Phone Mobile Phone Email Address Email Address Preferred Language Mongolian Marital Status Single Synagogue Affiliation Unknown Race White Ethnic Group Not or Lati no Author Organization [facility] Address [address], [address] [place] [address] Care Team Providers Care Firewall Administrator Name Role Phone Armen Sánchez Primary Care Provider [phone] Allergies Active Allergy Reactions Criticality Noted Date [...] today Need for prophylactic vaccin ation against useifkvupo-bhdpjlg-uykrgbitt (DTP) 08/16/2018 Assessment & Plan (08/16/2018 4:03 [...] Hospital Encounter [facility] [address] [place] [address] Victorino Christie, Discharge Disposition: Home or Self [...] Self 1995 [address] [place] [address] [facility] Care Teams Firewall Administrator Relationship Specialty Start Date End Date Armen Sánchez DO [address] [facility] [place] [address] PCP - General Family Medicine 04/27/24
--- OUTSIDE RECORDS SUMMARY | 2024-11-30 14:02 | XMS_ITS | Encounter Summary ---
Author Organization [facility] tem Address [facility] [place]-[id number] [address] [place] [address] Care Team Providers Care Shipping Clerk/Admin Name Role Phone PrincessArmen Cedric [place] Primary Care Provider Encounter Details Date Type Department Care Team (Late st Contact Info) Description 09/25/2024 Orders Only Maternal- Medicine at [facility] [address] [place] [address] Ref Prov, [place] [address] Social History Tobacco Use Types Packs/Day Years Used Date Smoking Tobacco: Every Day Cigarettes 1 13.3 Started: 08/01/2011 Smokeless Tobacco: Never Alcohol Use Standard Drinks/Week Comments Not Currently 0 (1 standard drink = 0.6 oz pur e alcohol) [facility] Utilities Answer Date Recorded In the past 12 months has [employer], gas, oil, or water company threatened [...] Answer Date Recorded Total Score 0 10/27/2023 [facility] [place] of Occupat ional Health - Occupational [...] need help finding a [facility] and/or a [...] Health Services - Women's Services [address] [place] [address] Tiffany Easton MD [address] [place] [address] 12/05/2024 3:30 PM EDT Appointment [facility] US Imaging [address] [place] [address] documented as of this encounter Procedures Procedure Name Priority Date/Time Associated Diagnosis Comments US PREG LMTD 1 OR MORE FETUS Routine 09/25/2024 8:28 AM EDT documented in this encounter Results * Ultrasound limited 1 or more fetus (09/25/2024 8:28 AM EDT) Anatomical Region Laterality Modality OB-DIRECTOR OF OPERATIONS FOR THERAPY Ultrasound us Not In System Ref Prov IMG US ORDERABLES Final R esult documented in this encounter Visit Diagnoses Not on filedocumented in this encounter Additional Health Concerns Assessment Noted Time PHQ-9 Depression Total Score: 0 10/27/19 10:25 AM EDT A Body Mass Index follow-up plan has been documented for the patient 08/10/2023 10:14 AM EDT documented as of this encounter Care Teams Shipping Clerk/Admin Relationship Specialty Start Date End Date Jose Sáncheznis G, DO [address] [facility], [place] [address] PCP - General Family Medicine 08/25/23 documented as of this encounter
--- OUTSIDE RECORDS SUMMARY | 2024-11-30 14:03 | XMS_ITS | Encounter Summary ---
Author Organization [facility] Address [address] [place] [address] Care Team Providers Care Cycle Specialist Name Role Phone Emi Bronson [facility] Unavailable + [phone] Armen Sánchez MD Primary Care Provider + [phone] Encounter Details Date Type Department Care Team (Late st Contact Info) Description 12/27/2023 [facility] [address] [place] [phone] Emi Bronson, [facility] [address] [place] [address] Social History Tobacco Use Types Packs/Day Years [...] on filedocumented in this encounter Care Teams Cycle Specialist Relationship Specialty Start Date End Date Armen Sánchez MD [address] [place] [address] PCP - General Family Medicine 05/05/24 Emi Bronson [facility] [address] [facility] [address] [place] [phone] Behavioral Health 04/12/24 09/26/24 documented as of this encounter
--- OUTSIDE RECORDS SUMMARY | 2024-11-30 14:03 | XMS_ITS | Encounter Summary ---
Author [facility] Address [facility]-[id number] [address] [place] [address] Care Team Providers Care Telephone Order Supervisor Name Role Phone PrincessArmen Cedric [place] Primary Care Provider [phone] Encounter Details Date Type Department Care Team (Late st Contact Info) Description 08/26/2023 Orders Only [facility] Internal Medicine - Family Medicine [address] [place] [address] Scotty Mahoney DO [address] [place] [address] Rectal bleeding (Primary Dx) Social History Tobacco Use Types Packs/Day Years Used Date Smoking Tobacco: Every Day Cigarettes 1 13.3 Started: 08/01/2011 Smokeless Tobacco: Never Alcohol Use Standard Drinks/Week Comments Not Currently 0 (1 standard drink = 0.6 oz pur e alcohol) [facility] Utilities Answer Date Recorded In the past 12 months has [employer], gas, oil, or water [employer] threatened to shut off services in your [...] How often do you attend [facility] or gnosticist services? Never 08/25/2023 Do you belong to [...] Health Services - Women's Services [address] [place] [address] Tiffany Easton MD [address] [place] [address] 12/05/2024 3:30 PM EDT Appointment [facility] US Imaging [address] [place] [address] documented as of this encounter Visit Diagnoses Diagnosis Rectal bleeding- Primary Hemorrhage of rectum and anus documented in this encounter Additional Health Concerns Assessment Noted Time PHQ-9 Depression Total Score: 6 08/25/19 9:30 AM EDT A Body Mass Index follow-up plan has been documented for the patient 08/10/2023 10:14 AM EDT documented as of this encounter Care Teams Telephone Order Supervisor Relationship Specialty Start Date End Date Armen Sánchez DO [address] [facility], [place] [address] PCP - General Family Medicine 08/25/23 documented as of this encounter
--- OUTSIDE RECORDS SUMMARY | 2024-11-30 14:03 | XMS_ITS | Encounter Summary ---
Author Organization [facility] Address [address] [place] [address] Care Team Providers Care Floriculture Teacher Name Role Phone Emi Bronson [facility] Unavailable + [phone] Armen Sánchez MD Primary Care Provider + [phone] Encounter Details Date Type Department Care Team (Late st Contact Info) Description 09/21/2024 Abstract [facility] [address] [id number] Curtis Paez DO [address] [place] [address] Social History Tobacco Use Types Packs/Day Years [...] on filedocumented in this encounter Care Teams Floriculture Teacher Relationship Specialty Start Date End Date Armen Sánchez MD [address] [place] [address] PCP - General Family Medicine 05/05/24 Emi Bronson [facility] [address] [place] [address] Behavioral Health 04/12/24 09/26/24 documented as of this encounter
--- OUTSIDE RECORDS SUMMARY | 2024-11-30 14:03 | XMS_ITS | Encounter Summary ---
Author Organization [facility] Address [address] [place] [address] Care Team Providers Care Sole Tacker Name Role Phone Emi Bronson [facility] Unavailable + [phone] Armen Sánchez MD Primary Care Provider + [phone] Encounter Details Date Type Department Care Team (Late st Contact Info) Description 05/24/2024 Abstract [facility] [address] [place] [phone] Curtis Paez DO [address] [place] [address] Social History Tobacco Use Types Packs/Day Years [...] on filedocumented in this encounter Care Teams Sole Tacker Relationship Specialty Start Date End Date Armen Sánchez MD [address] [place] [address] PCP - General Family Medicine 05/05/24 Emi Bronson [facility] [address] [place] [address] Behavioral Health 04/12/24 09/26/24 documented as of this encounter
--- OUTSIDE RECORDS SUMMARY | 2024-11-30 14:03 | XMS_ITS | Encounter Summary ---
Author Organization [facility] Address [address] [place] [address] Care Team Providers Care Furniture Repair Technician Name Role Phone Emi Bronson [facility] Unavailable + [phone] Armen Sánchez MD Primary Care Provider + [phone] Encounter Details Date Type Department Care Team (Late st Contact Info) Description 09/21/2024 Abstract [facility] [address] [place] [phone] Curtis Paez DO [address] [place] [address] Social History Tobacco Use Types Packs/Day Years [...] on filedocumented in this encounter Care Teams Furniture Repair Technician Relationship Specialty Start Date End Date Armen Sánchez MD [address] [place] [address] PCP - General Family Medicine 05/05/24 Emi Bronson [facility] [address] [place] [address] Behavioral Health 04/12/24 09/26/24 documented as of this encounter
--- OUTSIDE RECORDS SUMMARY | 2024-11-30 14:03 | XMS_ITS | Encounter Summary ---
Author Organization [employer] s tem Address [id number] [address] [place] [address] Care Team Providers Care Drafting Layout Man Name Role Phone PrincessArmen Cedric [place] Primary Care Provider Encounter Details Date Type Department Care Team (Late st Contact Info) Description 08/25/2023 Telephone [facility] - Family Medicine [address] [place] [address] Bernadette Zhang CMA Social History Tobacco Use Types Packs/Day Years Used Date Smoking Tobacco: Every Day Cigarettes 1 13.3 Started: 08/01/2011 Smokeless Tobacco: Never Alcohol Use Standard Drinks/Week Comments Not Currently 0 (1 standard drink = 0.6 oz pur e alcohol) [facility] Utilities Answer Date Recorded In the past 12 months has [employer], gas, oil, or water company threatened to [...] attend chur ch or bahai services? Never 08/25/2023 Do you belong to [...] Answer Date Recorded Total Score 6 08/25/2023 [facility] of Occupat ional [...] Health Services - Women's Services [address] [place] [address] Tiffany Easton MD [address] [place] [address] 12/05/2024 3:30 PM EDT Appointment [facility] US Imaging [address] [place] [address] documented as of this encounter Visit Diagnoses Not on filedocumented in this encounter Additional Health Concerns Assessment Noted Time PHQ-9 Depression Total Score: 6 08/25/19 9:30 AM EDT A Body Mass Index follow-up plan has been documented for the patient 08/10/2023 10:14 AM EDT documented as of this encounter Care Teams Drafting Layout Man Relationship Specialty Start Date End Date Armen Sánchez DO [address] [place] [address] PCP - General Family Medicine 08/25/23 documented as of this encounter
--- OUTSIDE RECORDS SUMMARY | 2024-11-30 14:03 | XMS_ITS | Encounter Summary ---
Author Organization [facility] [employer] tem Address [facility]-[id number] [address] [place] [address] Care Team Providers Care Sales Leader Name Role Phone SepidehArmen tristan Primary Care Provider [phone] Encounter Details Date Type Department Care Team (Late st Contact Info) Description 10/30/2024 Orders Only [facility] Internal Medicine - Family Medicine [address] [place] [address] External, Scanning Provider Social History Tobacco Use Types Packs/Day Years Used Date Smoking Tobacco: Every Day Cigarettes 1 13.3 Started: 08/01/2011 Smokeless Tobacco: Never Alcohol Use Standard Drinks/Week Comments Not Currently 0 (1 standard drink = 0.6 oz pur e alcohol) [facility] Utilities Answer Date Recorded In the past 12 months has [employer], gas, oil, or water company threatened [...] any clubs o r organizations such as faith groups, unions, fraternal or athletic groups, or [...] Answer Date Recorded Total Score 0 10/18/2024 [facility] of Occupat ional Health - Occupational Stress [...] Health Services - Women's Services [address] [place] [address] Tiffany Easton MD [address] [place] [address] 12/05/2024 3:30 PM EDT Appointment [facility] US Imaging [address] [place] [address] documented as of this encounter [...] documented as of this encounter Care Teams Sales Leader Relationship Specialty Start Date End Date Armen Sánchez DO [address], [place] [address] PCP - General Family Medicine 08/25/23 documented as of this encounter
--- OUTSIDE RECORDS SUMMARY | 2024-11-30 14:03 | XMS_ITS | Encounter Summary ---
Author Organization [facility] Address [address] [place] [address] Care Team Providers Care Voltage Inspector Name Role Phone Emi Bronson [facility] Unavailable + [phone] Armen Sánchez MD Primary Care Provider + [phone] Encounter Details Date Type Department Care Team (Late st Contact Info) Description 08/10/2023 Abstract [facility] OBGYN [address] [address] Curtis Paez DO [address] [place], [place] [id number] Social History Tobacco Use Types Packs/Day Years [...] on filedocumented in this encounter Care Teams Voltage Inspector Relationship Specialty Start Date End Date Armen Sánchez MD [address] [facility] [address] [place] [address] PCP - General Family Medicine 05/05/24 Emi Bronson, [facility] [address] [facility] [address] [place] [address] Behavioral Health 04/12/24 09/26/24 documented as of this encounter
--- OUTSIDE RECORDS SUMMARY | 2024-11-30 14:03 | XMS_ITS | Encounter Summary ---
Author Organization [facility] [employer] tem Address [id number] [address] [place] [address] Care Team Providers Care Urologist Name Role Phone MasoodArmen silverman Primary Care Provider [phone] Encounter Details Date Type Department Care Team (Late st Contact Info) Description 05/01/2024 Orders Only [facility] Internal Medicine - Family Medicine [address] [place] [address] Ref Prov, [place] [address] Social History Tobacco Use Types Packs/Day Years Used Date Smoking Tobacco: Every Day Cigarettes 1 13.3 Started: 08/01/2011 Smokeless Tobacco: Never Alcohol Use Standard Drinks/Week Comments Not Currently 0 (1 standard drink = 0.6 oz pur e alcohol) [facility] Utilities Answer Date Recorded In the past 12 months has [employer], gas, oil, or water company threatened to [...] often do you attend chur ch or congregational services? Never 01/27/2024 Do you belong to any clubs o r organizations such as synagogue groups, unions, fraternal or athletic groups, or [...] Recorded Do you need help finding a [facility] and/or a training [...] Health Services - Women's Services [address] [place] [address] Tiffany Easton MD [address] [place] [address] 12/05/2024 3:30 PM EDT Appointment [facility] US Imaging [address] [place] [address] documented as of this encounter Procedures Procedure [...] documented as of this encounter Care Teams Urologist Relationship Specialty Start Date End Date Armen Sánchez DO [address] [facility], [place] [address] PCP - General Family Medicine 08/25/23 documented as of this encounter
--- OUTSIDE RECORDS SUMMARY | 2024-11-30 14:03 | XMS_ITS | Encounter Summary ---
Author Organization [employer] tem Address [facility]-[id number] [address] [place] [address] Care Team Providers Care Food Processor Name Role Phone SepidehArmen tristan Cedric [place] Primary Care Provider Encounter Details Date Type Department Care Team (Latest Contact Info) Description 11/24/2024 Travel Social History Tobacco Use Types Packs/Day [...] often do you attend chur ch or mu-ism services? Never 01/27/2024 Do you belong to [...] Answer Date Recorded Total Score 0 10/18/2024 [facility] of Occupat ional Health - [...] Health Services - Women's Services [address] [place] [address] Tiffany Easton MD [address] [place] [address] 12/05/2024 3:30 PM EDT Appointment [facility] US Imaging [address] [place] [address] documented as of this encounter Visit Diagnoses Not on filedocumented in this encounter Additional Health Concerns Assessment Noted Time PHQ-9 Depression Total Score: 0 10/19/19 25 4:00 AM EDT A Body Mass Index follow-up plan has been documented for the patient 08/10/2023 10:14 AM EDT documented as of this encounter Care Teams Food Processor Relationship Specialty Start Date End Date Armen Sánchez DO [address] [place] [address] PCP - General Family Medicine 08/25/23 documented as of this encounter
--- OUTSIDE RECORDS SUMMARY | 2024-11-30 14:03 | XMS_ITS | Encounter Summary ---
Author Organization [email or web address] tem Address [id number] [address] [place] [address] Care Team Providers Care Joint Filler Name Role Phone Armen Sánchez DO Primary Care Provider + [phone] Reason for Referral * Consultation (Routine) - Pending Review Specialty Diagnoses / Procedures Referred By Thom patel Referred To Contact Neonatology Diagnoses Abnormal ultrasonic finding on screening of mother, antepartum Suresh Valencia MD [address] [place] [address] Phone: tel: fax: [facility] [address] [place] [address] Phone: tel: fax: Referral ID Status Reason Start Date Expiration Date Visits Requested Visits Authorized [id number] Pending Review Specialty Services Required 11/21/2024 11/21/2025 1 1 Encounter Details Date Type Department Care Team (Late st Contact Info) Description 11/21/2024 Orders Only Maternal- Medicine at [facility] [address] [place] [address] Laura Strauss RDMS Abnormal ultrasonic finding on [...] often do you attend chur ch or jewish services? Never 01/27/2024 Do you [...] Answer Date Recorded Total Score 0 10/18/2024 [facility] [place] of Occupat ional Health - Occupational Stress [...] Health Services - Women's Services [address] [place] [address] Tiffany Easton MD [address] [facility] [place] [address] 12/05/2024 3:30 PM EDT [facility]ointment [facility] [address] [place] [address] Scheduled Referrals Name Type Priority Associated Diagnoses [...] documented as of this encounter Care Teams Joint Filler Relationship Specialty Start Date End Date Armen Sánchez DO [address] [facility] [place] [address] PCP - General Family Medicine 08/25/23 documented as of this encounter
--- OUTSIDE RECORDS SUMMARY | 2024-11-30 14:03 | XMS_ITS | Encounter Summary ---
Author Organization [facility] [employer] Sys tem Address [facility] [id number] [address] [place] [address] Care Team Providers Care Sales Representative Wire Rope Name Role Phone MasoodArmen silverman Primary Care Provider [phone] Encounter Details Date Type Department Care Team (Late st Contact Info) Description 11/22/2024 Orders Only [facility] Internal Medicine - Family Medicine [address] [place] [address] Ref Prov, [place] [address] Social History Tobacco Use Types Packs/Day Years Used Date Smoking Tobacco: Every Day Cigarettes 1 13.3 Started: 08/01/2011 Smokeless Tobacco: Never Alcohol Use Standard Drinks/Week Comments Not Currently 0 (1 standard drink = 0.6 oz pur e alcohol) [facility] Utilities Answer Date Recorded In the past 12 months has [employer], gas, oil, or water company threatened to [...] often do you attend chur ch or hinduism services? Never 01/27/2024 Do you [...] Answer Date Recorded Total Score 0 10/18/2024 [facility] of Occupat ional Health - Occupational [...] Health Services - Women's Services [address] [place] [address] Tiffany Easton MD [address] [place] [address] 12/05/2024 3:30 PM EDT Appointment [facility] US Imaging [address] [place] [address] documented as of this encounter Procedures Procedure [...] as of this encounter Care Teams Sales Representative Wire Rope Relationship Specialty Start Date End Date Armen Sánchez DO [address] [facility], [place] [address] PCP - General Family Medicine 08/25/23 documented as of this encounter
--- OUTSIDE RECORDS SUMMARY | 2024-11-30 14:03 | XMS_ITS | Encounter Summary ---
Author Organization [employer] s tem Address [facility][id number] [address] [place] [address] Care Team Providers Care Academic Specialist Name Role Phone Armen Sánchez Primary Care Provider [phone] Encounter Details Date Type Department Care Team (Late st Contact Info) Description 08/17/2023 Orders Only [facility] Obstetrics/Gynecology [address] [place] [address] La Murray CMA Screening for STD (sexually [...] Health Services - Women's Services [address] [place] [address] Tiffany Easton MD [address] [place] [address] 12/05/2024 3:30 PM EDT Appointment [facility] US Imaging [address] [place] [address] documented as of this encounter Procedures Procedure [...] documented as of this encounter Care Teams Academic Specialist Relationship Specialty Start Date End Date Armen Sánchez DO [address] [facility], [place] [address] PCP - General Family Medicine 08/25/23 documented as of this encounter
--- OUTSIDE RECORDS SUMMARY | 2024-11-30 14:03 | XMS_ITS | Encounter Summary ---
Author Organization [employer] tem Address [id number] [address] [place] [address] Care Team Providers Care Tableau Report Developer Name Role Phone Armen Sánchez DO Primary Care Provider + [phone] Reason for Referral * Diagnostic Imaging (Routine) - Pending Review Specialty Diagnoses / Procedures Referred By Thom patel Referred To Contact Maternal and Medicine Diagnoses Abnormal ultrasonic finding on screening of mother, antepartum Supervision of high risk in third trimester Cystic fibrosis carrier, antepartum Procedures US MFM with or without consult Edil Bullock MD [address] [address] Phone: tel: fax: Maternal- Medicine at [facility] [address] [place] [address] Phone: tel: fax: Referral ID Status Reason Start Date Expiration Date V isits Requested Visits Authorized [id number] Pending Review 11/28/2024 11/28/2025 1 1 Encounter Details Date Type Department Care Team (Late st Contact Info) Description 11/28/2024 Orders Only Maternal- Medicine at [facility] [address] [place] [phone] Juhi Reza RN Abnormal ultrasonic finding on screening of mother, antepartum (Primary Dx); Supervision of high risk in third trimester; Cystic fibrosis carrier, antepartum Social History Tobacco Use Types Packs/Day Years Used Date Smoking Tobacco: Every Day Cigarettes 1 13.3 Started: 08/01/2011 Smokeless Tobacco: Never Alcohol Use Standard Drinks/Week Comments Not Currently 0 (1 standard drink = 0.6 oz pur e alcohol) [facility] Utilities Answer Date Recorded In the past 12 months has e [employer], gas, oil, or water [employer] threatened to shut off services in your [...] often do you attend chur ch or samaritan services? Never 01/27/2024 Do you belong to [...] Answer Date Recorded Total Score 0 10/18/2024 [facility] of Occupat ional Health - Occupational Stress [...] Health Services - Women's Services [address] [place] [phone] Tiffany Easton MD [address] [facility] [place] [address] 12/05/2024 3:30 PM EDT Appointment [facility] US Imaging [address] [place] [phone] Scheduled Orders Name Type Priority Associated Diagnoses Orde r Schedule US [facility] with or without consult Imaging Routine Abnormal ultrasonic finding on screening of mother, antepartum Supervision of high risk in third trimester Cystic fibrosis carrier, antepartum Expected: 11/28/2025 (Approximate), Expires: 11/28/2025 documented as of this encounter Visit Diagnoses Diagnosis Abnormal ultrasonic finding on screening of mother, antepartum- Primary Supervision of high risk in third trimester Cystic fibrosis carrier, antepartum documented in this encounter Additional Health Concerns Assessment Noted Time PHQ-9 Depression Total Score: 0 10/19/19 25 4:00 AM EDT A Body Mass Index follow-up plan has been documented for the patient 08/10/2023 10:14 AM EDT documented as of this encounter Care Teams Tableau Report Developer Relationship Specialty Start Date End Date Armen Sánchez DO [address] [facility], [place] [address] PCP - General Family Medicine 08/25/23 documented as of this encounter
--- OUTSIDE RECORDS SUMMARY | 2024-11-30 14:03 | XMS_ITS | Encounter Summary ---
Author Organization [facility] Address [address] [place] [address] Care Team Providers Care Software Engineer Backend Name Role Phone Armen Sánchez MD Primary Care Provider Encounter Details Date Type Department Care Team (Late st Contact Info) Description 11/23/2024 Clinisync Result Encounter [facility] External Department Unsolicited Magan Paez, DO [address] [facility] [address] [place], [place] [id number] Social History Tobacco Use Types Packs/Day Years [...] Diagnosis Comments US OB BPP W NON-STRESS 11/23/2024 2:51 PM EDT documented in this encounter Results * US OB BPP W NON-STRESS (11/23/2024 2:51 PM EDT) Anatomical Region Laterality Modality Other 11/23/2024 2:51 PM EDT Narrative 11/23/2024 2:54 [place] [address] Ultrasound Report Signed Patient: SAPNA SERRANO MR#: [id number] : 1995 Acct:[id number] Age/Sex: 29 / F ADM Date: 11/23/24 Loc: [facility] 250-[address]: Magan Paez D.O. Ordering Physician: Magan Paez D.O. Date of Service: 11/23/24 Procedure(s): US OB BPP w non-stress Accession Number(s): [id number] cc: ARMEN SÁNCHEZ ; Magan Paez D.O. [place] [id number] Patient Name: SAPNA SERRANO MRN: [facility]:[id number] date: 1995 Sex: F Assigned Patient Location: [facility] Current Patient Location: [facility] Accession/Order Number: [id number] Exam Date: 11/23/2024 14:08 Report Date: 11/23/2024 14:51 At the request of: MAGAN PAEZ DO Procedure: US OB BPP w non-stress US OB BPP w non-stress 11/23/2024 2:23 PM SIGNS AND SYMPTOMS: Cystic fibrosis PROTOCOL: Transabdominal sonographic imaging of the gravid uterus COMPARISON: None FINDINGS: heart rate: 145 bpm Amniotic fluid index: 14.13 cm. The deepest vertical pocket measures 5.4 cm. Estimated age: 37 weeks 2 days Biophysical profile: breathing movements: 2/2 Gross body movements: 2/2 tone: 2/2 Amniotic fluid volume: 2/2 US/US OB BPP w non-stress IMPRESSION: Biophysical profile score: 11/10 Impression dictated by: Geoff Roca M.D. 11/23/2024 2:51 PM Dictation Location: [place] [address] Electronically authenticated by: [id number] Y Date: 11/23/2024 14:51 Dictated By: Geoff Roca M.D. Signed By: 11/23/24 1454 DD/ 145 TD/TT: Repair Service Dispatcher: Procedure Note Radiology, Radiologist, - 11/23/2024 [place] [address] Ultrasound Report Signed Patient: SAPNA SERRANO KMR#: [id number] : 1995Acct:[id number] Age/Sex: 29 / FADM Date: 11/23/24 Loc: [facility] 250-[address]: Magan Paez D.O. Ordering Physician: Magan Paez D.O. Date of Service: 11/23/24 Procedure(s): US OB BPP w non-stress Accession Number(s): [id number] cc: ARMEN SÁNCHEZ Corey D.O. [place] [address] Patient Name: SAPNA SERRANO MRN: [id number] date: 1995 Sex: F Assigned Patient Location: [facility] Current Patient Location: [facility] Accession/Order Number: [id number] Exam Date: 11/23/2024 14:08 Report Date: 11/23/2024 14:51 At the request of: MAGAN PAEZ DO Procedure: US OB BPP w non-stress US OB BPP w non-stress 11/23/2024 2:23 PM SIGNS AND SYMPTOMS: Cystic fibrosis PROTOCOL: Transabdominal sonographic imaging of the gravid uterus COMPARISON: None FINDINGS: heart rate: 145 bpm Amniotic fluid index: 14.13 cm. The deepest vertical pocket measures 5.4cm. Estimated age: 37 weeks 2 days Biophysical profile: breathing movements: 2/2 Gross body movements: 2/2 tone: 2/2 Amniotic fluid volume: 2/2 US/US OB BPP w non-stress IMPRESSION: Biophysical profile score: 8/8 Impression dictated by: Geoff Roca M.D. 11/23/2024 2:51 PM Dictation Location: [place] [address] Electronically authenticated by: [id number] Y Date: 4:51 Dictated By: Geoff Roca M.D. Signed By:11/23/24 1454 DD/ 1451 TD/TT: Repair Service Dispatcher: us Magan Jeannine DO [facility] Final Result documented in this encounter Visit Diagnoses Not on filedocumented in this encounter Care Teams Software Engineer Backend Relationship Specialty Start Date End Date Armen Sánchez MD PCP - General Family Medicine 05/05/24 documented as of this encounter
--- OUTSIDE RECORDS SUMMARY | 2024-11-30 14:03 | XMS_ITS | Encounter Summary ---
Author Organization [facility] Address [address] [facility] [place] [address] Care Team Providers Care Movie Editor Name Role Phone Emi Bronson [facility] Unavailable + [phone] Armen Sánchez MD Primary Care Provider + [phone] Encounter Details Date Type Department Care Team (Late st Contact Info) Description 09/14/[address] [facility] [address] [facility] [address] [place] [phone] Nav Ames MD [address] [facility] [address] [place] [address] Social History Tobacco Use Types Packs/Day Years [...] on filedocumented in this encounter Care Teams Movie Editor Relationship Specialty Start Date End Date Armen Sánchez MD [address] [facility] [address] [place] [address] PCP - General Family Medicine 05/05/24 Emi Bronson, [facility] [address] [facility] [address] [place] [id number] Behavioral Health 04/12/24 09/26/24 documented as of this encounter
--- OUTSIDE RECORDS SUMMARY | 2024-11-30 14:03 | XMS_ITS | Encounter Summary ---
Author Organization [facility] [employer] Address [id number] [address] [place] [address] Care Team Providers Care Professional Services Manager Name Role Phone MasoodArmen silverman Primary Care Provider Encounter Details Date Type Department Care Team (Late st Contact Info) Description 07/19/2024 Orders Only [facility] Internal Medicine - Family Medicine [address] [place] [address] Ref Prov, [place] [address] Social History Tobacco Use Types Packs/Day Years Used Date Smoking Tobacco: Every Day Cigarettes 1 13.3 Started: 08/01/2011 Smokeless Tobacco: Never Alcohol Use Standard Drinks/Week Comments Not Currently 0 (1 standard drink = 0.6 oz pur e alcohol) [facility] Utilities Answer Date Recorded In the past 12 months has [employer], gas, oil, or water company threatened to [...] often do you attend chur ch or sikh services? Never 01/27/2024 Do you belong to [...] Answer Date Recorded Total Score 0 10/27/2023 [facility] of Occupat ional Health [...] Recorded Do you need help finding a [facility] and/or a training [...] Health Services - Women's Services [address] [place] [address] Tiffany Easton MD [address] [place] [phone] 12/05/2024 3:30 PM EDT Appointment [facility] US Imaging [address] [place] [address] documented as of this encounter Procedures Procedure [...] documented as of this encounter Care Teams Professional Services Manager Relationship Specialty Start Date End Date Aremn Sánchez DO [address] [facility], [place] [address] PCP - General Family Medicine 08/25/23 documented as of this encounter
--- OUTSIDE RECORDS SUMMARY | 2024-11-30 14:03 | XMS_ITS | Encounter Summary ---
Author Organization [employer] Address [id number] [address] [place] [address] Care Team Providers Care Truck Packer Name Role Phone SepidehArmen tristan Cedric [place] Primary Care Provider [phone] Encounter Details Date Type Department Care Team (Latest Contact Info) Description 11/29/2024 Travel Social History Tobacco Use Types Packs/Day [...] any clubs o r organizations such as shinto groups, unions, fraternal or athletic groups, or [...] Health Services - Women's Services [address] [place] [address] Tiffany Easton MD [address] [place] [phone] 12/05/2024 3:30 PM EDT Appointment [facility] US Imaging [address] [place] [address] documented as of this encounter Visit Diagnoses Not on filedocumented in this encounter Additional Health Concerns Assessment Noted Time PHQ-9 Depression Total Score: 0 10/19/19 25 4:00 AM EDT A Body Mass Index follow-up plan has been documented for the patient 08/10/2023 10:14 AM EDT documented as of this encounter Care Teams Truck Packer Relationship Specialty Start Date End Date Armen Sánchez DO [address], [place] [address] PCP - General Family Medicine 08/25/23 documented as of this encounter
--- OUTSIDE RECORDS SUMMARY | 2024-11-30 14:03 | XMS_ITS | Encounter Summary ---
Author Organization [facility] Address [address] [place] [address] Care Team Providers Care Cardboard Inserter Name Role Phone Aiyana, Emi Munson [facility] Unavailable + [phone] Armen Sánchez MD Primary Care Provider + [phone] Encounter Details Date Type Department Care Team (Late st Contact Info) Description 07/11/2024 Orders Only [facility] [address] [address] Mary Quinn LPN [address] [facility] [address] [place] [address] Social History Tobacco Use Types [...] on filedocumented in this encounter Care Teams Cardboard Inserter Relationship Specialty Start Date End Date Armen Sánchez MD [address] [place] [address] PCP - General Family Medicine 05/05/24 Emi Bronson [facility] [address] [place] [address] Behavioral Health 04/12/24 09/26/24 documented as of this encounter
--- OUTSIDE RECORDS SUMMARY | 2024-11-30 14:03 | XMS_ITS | Clinical Summary ---
Author Organization [facility] Address [address] [place] [address] Care Team Providers Care Analyzer Sales Name Role Phone Armen Sánchez MD Primary [...] Diagnosed Date H/O LEEP 10/17/2024 Third trimester ([facility]) 10/03/2024 29 weeks gestation of ([facility]) 2024 HSV infection 10/03/2024 Placental abnormality in third trimester ([facility]) 09/21/2024 History of loop electrosurgi ledy excision procedure (LEEP) of cervix affecting , antepartum ([facility]) 09/21/2024 Cystic fibrosis carrier, antepartum ([facility]) Moderate episode of recurrent major depressive d isorder 10/25/2023 ALICIA (generalized anxiety disorder) 10/25/2023 Estimated Date of Delivery Comme nts Yes 12/12/2024 Based on last me nstrual period of 03/07/2024 Encounters Date Type Department Care Team Description 11/23/2024 Clinisync Result Encounter NOMS External Department Unsolicited Magan Paez, DO 11/16/2024 Clinisync Result Encounter NOMS External Department Unsolicited JeannineMagan vicente, DO 11/09/2024 Clinisync Result Encounter NOMS External Department Unsolicited JeannineMagan vicente, DO 11/02/2024 Clinisync Result Encounter NOMS External Department Unsolicited Magan Paez, DO 11/01/2024 Clinisync Result Encounter NOMS External Department Unsolicited Jocy Vaughn PA 10/26/2024 Clinisync Result Encounter NOMS External Department Unsolicited Magan Paez, DO 10/19/2024 Clinisync Result Encounter NOMS External Department Unsolicited Magan Paez, DO 10/17/2024 2:20 PM [place] [address] Jocy Vaughn PA Third trimester ([facility] 32 weeks gestation of ([facility]); H/O LEEP; Cystic fibrosis carrier, antepartum ([facility]); HSV infection 10/17/2024 [place] [address] Jocy Vaughn PA 10/16/2024 Travel 10/12/2024 Clinisync Result Encounter NOMS External Department Unsolicited Magan Paez, DO 10/09/2024 [place] [address] Reanna Fernandez MA 10/04/2024 Clinisync Result Encounter NOMS External Department Unsolicited Magan Paez, DO 10/04/2024 Telephone [facility] OBGYN [address] [place] [address] Magan Paez, DO 10/03/2024 8:40 AM EDT Routine [facility] [place] GEN [address] [place] [address] Magan Paez, DO Third trimester ([facility]); Cystic fibrosis carrier, antepartum ([facility]); Moderate episode of recurrent major depressive disorder ([facility]); History of loop electrosurgical excision procedure (LEEP) of cervix affecting , antepartum ([facility]); HSV infection; 30 weeks gestation of ([facility]); Maternal care for other (suspected) abnormality and damage, gastrointestinal anomalies, not applicable or unspecified ([facility]) 10/03/2024 Telephone [facility] [address] [facility] [place] [address] Laura Godwin LPN 10/03/2024 Abstract [facility] [address] [address] [facility] [address] Magan Paez, DO 09/25/2024 Clinisync Result Encounter NOMS External Department Unsolicited Magan Paez, DO 09/21/2024 Abstract [facility] [address] [facility] [place] [address] Magan Paez, DO 09/21/2024 Abstract [facility] [address] [facility] [address] Magan Paez, DO 09/21/2024 Clinisync Result Encounter NOMS External Department Unsolicited Magan Paez, DO 09/21/2024 Clinisync Result Encounter NOMS External Department Unsolicited Magan Paez, DO 09/21/2024 Orders Only [facility] [place] [address] [place] [address] Magan Paez, DO Placental abnormality in third trimester ([facility]); Cystic fibrosis carrier, antepartum ([facility]); History of loop electrosurgical excision procedure (LEEP) of cervix affecting , antepartum ([facility]) 09/21/2024 Telephone [facility] [place] [address] [place] [address] [place] [address] Conniepaula Antoinette, CNC MECHANIC 09/19/2024 Telephone [facility] [place] [address] [place] [address] [place] [address] Tato Laura, CNC MECHANIC 09/18/2024 3:40 PM EDT Routine [facility] [place] [place] [address] Magan Paez DO Anxiety, generalized (Primary Dx); Second trimester ([facility]); 27 weeks gestation of ([facility]); Cystic fibrosis carrier, antepartum ([facility]) 09/18/2024 Bamboo flowsheet [facility] [place] [address] [place] [address] [place] [address] Magan Paez DO 09/18/2024 Travel 08/30/2024 9:50 AM EDT Routine [facility] [place] [address] [place] [address] [place] [address] Jocy Vaughn PA Second trimester ([facility]); 25 weeks gestation of ([facility]) 08/30/2024 Clinisync Result Encounter NOMS External Department Unsolicited Magan Paez DO 08/30/2024 Bamboo flowsheet [facility] [place] [address] [place] [address] [place] [address] Jocy Vaughn PA from Last 3 Months [...] BPP W NON-STRESS 11/23/2024 2:51 PM EDT US OB BPP W NON-STRESS 11/16/2024 3:42 [...] Routine 10/03/2024 9:04 AM EDT Third trimester ([facility]) US OB BPP W NON-STRESS 09/25/2024 8:08 AM EDT US OB PLACENTA 09/21/2024 2:53 PM EDT US OB CERVICAL LENGTH 09/21/2024 2:40 PM EDT GLUCOSE 1 HOUR Routine 08/30/2024 11:28 AM EDT ALL CBC WITH AUTO DIFF Routine 08/30/2024 11:28 AM EDT POCT URINALYSIS DIPSTICK Routine 08/30/2024 11:24 AM EDT Second trimester ([facility]) from Last 3 Months Results * US OB BPP W NON-STRESS (11/23/2024 2:51 PM EDT) Only the most recent of8 resultswithin the time period is included. Anatomical Region Laterality Modality Other 11/23/2024 2:51 PM EDT Narrative 11/23/2024 2:54 [place] [address] Ultrasound Report Signed Patient: MICHI SERRANO MR#: [id number] : 1995 Acct:[id number] Age/Sex: 29 / F ADM Date: 11/23/24 Loc: [facility] 250-[address]: Magan Paez D.O. Ordering Physician: Magan Paez D.O. Date of Service: 11/23/24 Procedure(s): US OB BPP w non-stress Accession Number(s): [id number] cc: ARMEN SÁNCHEZ Corey D.O. [place] [id number] Patient Name: MICHI SERRANO MRN: [id number] date: 1995 Sex: F Assigned Patient Location: [facility] Current Patient Location: [facility] Accession/Order Number: [id number] Exam Date: 11/23/2024 14:08 Report Date: 11/23/2024 [...] Roca M.D. 11/23/2024 2:51 PM Dictation Location: [place] [address] Electronically authenticated by: [id number] Y Date: 11/23/2024 14:51 Dictated By: Geoff Roca M.D. Signed By: 11/23/24 1454 DD/ 145 TD/TT: Cut Out And Marking Machine Operator: Procedure Note Radiology, Radiologist, MD - 11/23/2024 [place] [address] Ultrasound Report Signed Patient: MICHI SERRANO KMR#: [id number] : 1995Acct:[id number] Age/Sex: 29 FADM Date: 11/23/24 Loc: [facility] 250-[address]: Magan Paez D.O. Ordering Physician: Magan Paez D.O. Date of Service: 11/23/24 Procedure(s): US OB BPP w non-stress Accession Number(s): [id number] cc: ARMEN SÁNCHEZ ; Magan Paez D.O. The [address] [address] Patient Name: MICHI SERRANO MRN: [id number] date: 1995 Sex: F Assigned Patient Location: [facility] Current Patient Location: [facility] Accession/Order Number: [id number] Exam Date: 11/23/2024 14:08 Report Date: 11/23/2024 [...] Roca M.D. 11/23/2024 2:51 PM Dictation Location: [place] [address] Electronically authenticated by: [id number] Y Date: 4:51 Dictated By: Geoff Roca M.D. Signed By:11/23/24 1454 DD/ 1451 TD/TT: Cut Out And Marking Machine Operator: us Magan Peaz DO [facility] Final Result * US OB CERVICAL LENGTH (11/01/2024 11:35 AM EDT) Only the most recent of2 resultswithin the time period is included. Anatomical Region Laterality Modality Other 11/01/2024 11:3 5 AM EDT Narrative 11/01/2024 11:37 AM EDT The [address] [address] Ultrasound Report Signed Patient: MICHI SERRANO MR#: [id number] : 1995 Acct:[id number] Age/Sex: 29 / F ADM Date: 11/01/24 Loc: US Attending Dr: Jocy Vaughn Ordering Physician: Jocy Vaughn Date of Service: 11/01/24 Procedure(s): US OB cervical length Accession Number(s): [id number] cc: Jocy Vaughn; ARMEN SÁNCHEZ The [place] [address] Patient Name: MICHI SERRANO MRN: [facility]:[id number] date: 1995 Sex: F Assigned Patient Location: US Current Patient Location: US Accession/Order Number: [id number] Exam Date: 11/01/2024 11:33 Report Date: 11/01/2024 [...] Jr., D.O. 11/01/2024 11:35 AM Dictation Location: [place] [address] Electronically authenticated by: [id number] Y Date: 11/01/2024 11:35 Dictated By: Hugo Atkins M.D. Signed By: 11/01/24 1137 DD/ 1135 TD/TT: Cut Out And Marking Machine Operator: Procedure Note Radiology, Radiologist, MD - 11/01/2024 [place] [address] Ultrasound Report Signed Patient: MICHI SERRANO KMR#: [id number] : 1995Acct:[id number] Age/Sex: 29 / FADM Date: 11/01/24 Loc: US Attending Dr: Jocy Vaughn Ordering Physician: Jocy Vaughn Date of Service: 11/01/24 Procedure(s): US OB cervical length Accession Number(s): [id number] cc: Jocy Vaughn; ARMEN SÁNCHEZ [place] [id number] Patient Name: MICHI SERRANO MRN: [id number] date: 1995 Sex: F Assigned Patient Location: Current Patient Location: Accession/Order Number: [id number] Exam Date: 11/01/2024 11:33 Report Date: 11/01/2024 [...] Jr., D.O. 11/01/2024 11:35 AM Dictation Location: [place] [address] Electronically authenticated by: [id number] Y Date: 1:35 Dictated By: Hugo Atkins M.D. Signed By:11/01/24 1137 DD/ 1135 TD/TT: Cut Out And Marking Machine Operator: us Jocy YOUNG [facility] Final Result * US OB PLACENTA (10/04/2024 9:50 AM EDT) Only the most recent of2 resultswithin the time period is included. Anatomical Region Laterality Modality Other 10/04/2024 9:50 AM EDT Narrative 10/04/2024 9:52 AM EDT [address] [address] Ultrasound Report Signed Patient: MICHI SERRANO MR#: [id number] : 1995 Acct:[id number] Age/Sex: 29 / F ADM Date: 09/24/24 Loc: [facility] Attending Dr: Magan Paez D.O. Ordering Physician: Magan Paez D.O. Date of Service: 09/24/24 Procedure(s): US OB placenta Accession Number(s): [id number] cc: ARMEN SÁNCHEZ Corey D.O. The [place] [id number] Patient Name: MICHI SERRANO MRN: [id number] date: 1995 Sex: F Assigned Patient Location: [facility] Current Patient Location: US Accession/Order Number: [id number] Exam Date: 10/04/2024 09:16 Report Date: 10/04/2024 [...] Rahman M.D. 10/04/2024 9:50 AM Dictation Location: [place] [address] Electronically authenticated by: [id number] Y Date: 10/04/2024 09:50 Dictated By: Laura Rahman M.D. Signed By: 10/04/24 0952 DD/ TD/TT: Cut Out And Marking Machine Operator: Procedure Note Radiology, Radiologist, - 10/04/[address] [address] Ultrasound Report Signed Patient: MICHI SERRANO KMR#: [id number] : 1995Acct:[id number] Age/Sex: 29 / FADM Date: 09/24/24 Loc: [facility] Attending Dr: Magan Paez D.O. Ordering Physician: Magan Paez D.O. Date of Service: 09/24/24 Procedure(s): US OB placenta Accession Number(s): [id number] cc: ARMEN SÁNCHEZ ; Magan Paez D.O. [place] [id number] Patient Name: MICHI SERRANO MRN: [id number] date: 1995 Sex: F Assigned Patient Location: [facility] Current Patient Location: US Accession/Order Number: [id number] Exam Date: 10/04/2024 09:16 Report Date: 10/04/2024 [...] Rahman M.D. 10/04/2024 9:50 AM Dictation Location: [place] [address] Electronically authenticated by: [id number] Y Date: 9:50 Dictated By: Laura Rahman M.D. Signed By:10/04/24 0952 DD/ TD/TT: Cut Out And Marking Machine Operator: us Magan Paez DO [facility] Final [...] DO LAB BLOOD ORDERABLES Final Resul t [facility] TB * (ABNORMAL) ALL CBC WITH AUTO DIFF [...] Magan Jeannine DO [facility] Final Result [facility] from Last 3 Months Insurance * Guarantor: Michi Serrano Account Type Relation to Patient Date of Phone Billing Address Personal/Family Self 1995 [address] [place] [address] [employer] [facility] Care Teams Analyzer Sales Relationship Specialty Start Date End Date Armen Sánchez MD PCP - General Family Medicine 05/05/24
--- OUTSIDE RECORDS SUMMARY | 2024-11-30 14:03 | XMS_ITS | Encounter Summary ---
Author Organization [employer] Address [id number] [address] [place] [address] Care Team Providers Care Insurance Verification Specialist Name Role Phone SepidehArmen tristan Cedric [place] [...] often do you attend chur ch or yarsani services? Never 01/27/2024 Do you belong to [...] Answer Date Recorded Total Score 0 10/18/2024 [facility] [...] Health Services - Women's Services [address] [place] [address] Tifafny Easton MD [address] [place] [address] 12/05/2024 3:30 PM EDT Appointment [facility] US Imaging [address] [place] [address] documented as of this encounter Visit Diagnoses Not on filedocumented in this encounter Additional Health Concerns Assessment Noted Time PHQ-9 Depression Total Score: 0 10/19/19 25 4:00 AM EDT A Body Mass Index follow-up plan has been documented for the patient 08/10/2023 10:14 AM EDT documented as of this encounter Care Teams Insurance Verification Specialist Relationship Specialty Start Date End Date Armen Sánchez DO [address] [place] [address] PCP - General Family Medicine 08/25/23 documented as of this encounter
--- OUTSIDE RECORDS SUMMARY | 2024-11-30 14:03 | XMS_ITS | Encounter Summary ---
Author Organization [employer] Address [id number] [address] [place] [address] Care Team Providers Care Optical Brightener Maker Helper Name Role Phone SepidehArmen tristan Cedric [place] Primary Care Provider [phone] Encounter Details Date Type Department Care Team (Latest Contact Info) Description 11/20/2024 Travel Social History Tobacco Use Types Packs/Day Years Used Date Smoking Tobacco: Every Day Cigarettes 1 13.3 Started: 08/01/2011 Smokeless Tobacco: Never Alcohol Use Standard Drinks/Week Comments Not Currently 0 (1 standard drink = 0.6 oz pur e alcohol) [facility] Utilities Answer Date Recorded In [...] often do you attend chur ch or alevism services? Never 01/27/2024 Do you belong to [...] Answer Date Recorded Total Score 0 10/18/2024 [facility] Occupat [...] Health Services - Women's Services [address] [place] [address] Tiffany Easton MD [address] [place] [address] 12/05/2024 3:30 PM EDT Appointment [facility] US Imaging [address] [place] [address] documented as of this encounter Visit Diagnoses Not on filedocumented in this encounter Additional Health Concerns Assessment Noted Time PHQ-9 Depression Total Score: 0 10/19/19 25 4:00 AM EDT A Body Mass Index follow-up plan has been documented for the patient 08/10/2023 10:14 AM EDT documented as of this encounter Care Teams Optical Brightener Maker Helper Relationship Specialty Start Date End Date Armen Sánchez DO [address] [place] [address] PCP - General Family Medicine 08/25/23 documented as of this encounter
--- OUTSIDE RECORDS SUMMARY | 2024-11-30 14:03 | XMS_ITS | Encounter Summary ---
Author Organization [facility] Address [address] [facility] [place] [address] Care Team Providers Care Senior Air Director Name Role Phone Emi Bronson [facility] Unavailable + [phone] Armen Sánchez MD Primary Care Provider [phone] Encounter Details Date Type Department Care Team (Late st Contact Info) Description 05/09/2024 Abstract [facility] O[facility] [address] [facility] [place] [address] Curtis Paez DO [address] [facility] [place] [address] Social History Tobacco Use Types Packs/Day Years [...] filedocumented in this encounter Care Teams Senior Air Director Relationship Specialty Start Date End Date Armen Sánchez MD [address] [place] [address] PCP - General Family Medicine 05/05/24 Emi Bronson [facility] [address] [place] [address] Behavioral Health 04/12/24 09/26/24 documented as of this encounter
--- OUTSIDE RECORDS SUMMARY | 2024-11-30 14:03 | XMS_ITS | Encounter Summary ---
Author Organization [employer] Address [id number] [address] [place] [address] Care Team Providers Care Sales Representative Sales Manager Name Role Phone SepidehArmen tristan Cedric [place] Primary Care Provider [phone] Encounter Details Date Type Department Care Team (Latest Contact Info) Description 11/28/2024 Travel Social History Tobacco Use Types Packs/Day Years Used Date Smoking Tobacco: Every Day Cigarettes 1 13.3 Started: 08/01/2011 Smokeless Tobacco: Never Alcohol Use Standard Drinks/Week Comments Not Currently 0 (1 standard drink = 0.6 oz pur e alcohol) [facility] Utilities Answer Date Recorded In [...] often do you attend chur ch or nondenominational services? Never 01/27/2024 Do you belong to [...] Answer Date Recorded Total Score 0 10/18/2024 [facility] Occupat ional [...] you need help finding a [facility] career center and/or a training program? No [...] Health Services - Women's Services [address] [place] [address] Tiffany Easton MD [address] [place] [phone] 12/05/2024 3:30 PM EDT Appointment [facility] US Imaging [address] [place] [address] documented as of this encounter Visit Diagnoses Not on filedocumented in this encounter Additional Health Concerns Assessment Noted Time PHQ-9 Depression Total Score: 0 10/19/19 25 4:00 AM EDT A Body Mass Index follow-up plan has been documented for the patient 08/10/2023 10:14 AM EDT documented as of this encounter Care Teams Sales Representative Sales Manager Relationship Specialty Start Date End Date Armen Sánchez DO [address] [place] [address] PCP - General Family Medicine 08/25/23 documented as of this encounter
--- OUTSIDE RECORDS SUMMARY | 2024-11-30 14:03 | XMS_ITS | Encounter Summary ---
Author Organization [facility] Address [address] [place] [address] Care Team Providers Care Water Control Station Engineer Name Role Phone Armen Sánchez MD Primary Care Provider Encounter Details Date Type Department Care Team (Late st Contact Info) Description 11/16/2024 Clinisync Result Encounter NOMS External Department Unsolicited Magan Paez, DO [address] [place], [place] [phone] Social History Tobacco Use Types Packs/Day Years [...] PM EDT Narrative 11/16/2024 3:44 [place] [address] Ultrasound Report Signed Patient: SAPNA SERRANO MR#: [id number] : 1995 Acct:[id number] Age/Sex: 29 / F ADM Date: 11/16/24 Loc: [facility] 250-[address]: Magan Paez D.O. Ordering Physician: Magan Paez D.O. Date of Service: 11/16/24 Procedure(s): US OB BPP w non-stress Accession Number(s): [id number] cc: ARMEN SÁNCHEZ ; Magan Paez D.O. [address] [address] Patient Name: SAPNA SERRANO MRN: [facility]:[id number] date: 1995 Sex: F Assigned Patient Location: [facility] Current Patient Location: [facility] Accession/Order Number: [id number] Exam Date: 11/16/2024 15:41 Report Date: 11/16/2024 15:42 At the request of: MAGAN PAEZ DO Procedure: US OB BPP w non-stress Biophysical profile. Reason for exam: Cystic fibrosis COMPARISON: 11/09/2024 TECHNIQUE: Transabdominal imaging of the gravid uterus was obtained. FINDINGS: The automotive service porter reports a BPP of 8 out of 8. NAYE is normal at 13.5 cm. heart rate 139 bpm. US/US OB BPP w non-stress IMPRESSION: BPP 8 out of 8. Impression dictated by: Hugo Atkins Jr., D.O. 11/16/2024 3:42 PM Dictation Location: [place] [address] Electronically authenticated by: [id number] Y Date: 11/16/2024 15:42 Dictated By: Hugo Atkins M.D. Signed By: 11/16/24 1544 DD/ 1542 TD/TT: Lumber Straightened: Procedure Note Radiology, Radiologist, - 11/17/2024 [place] [address] Ultrasound Report Signed Patient: SAPNA SERRANO KMR#: [id number] : 1995Acct:[id number] Age/Sex: 29 / FADM Date: 11/16/24 Loc: [facility] 250-[address]: Magan Paez D.O. Ordering Physician: Magan Paez D.O. Date of Service: 11/16/24 Procedure(s): US OB BPP w non-stress Accession Number(s): [id number] cc: ARMEN SÁNCHEZ ; Magan Paez D.O. The [place] [phone] Patient Name: SAPNA SERRANO MRN: [id number] date: 1995 Sex: F Assigned Patient Location: [facility] Current Patient Location: [facility] Accession/Order Number: [id number] Exam Date: 11/16/2024 15:41 Report Date: 11/16/2024 15:42 At the request of: MAGAN PAEZ DO Procedure: US OB BPP w non-stress Biophysical profile. Reason for exam: Cystic fibrosis COMPARISON: 11/09/2024 TECHNIQUE: Transabdominal imaging of the gravid uterus was obtained. FINDINGS: The automotive service porter reports a BPP of 8 out of 8. NAYE is normal at13.5 cm. heart rate 139 bpm. US/US OB BPP w non-stress IMPRESSION: BPP 8 out of 8. Impression dictated by: Hugo Atkins Jr., D.O. 11/16/2024 3:42 PM Dictation Location: [place] [address] Electronically authenticated by: [id number] Y Date: 5:42 Dictated By: Hugo Atkins M.D. Signed By:11/16/24 1544 DD/ 1542 TD/TT: Lumber Straightened: us Magan Jeannine DO [facility] Final Result documented in this encounter Visit Diagnoses Not on filedocumented in this encounter Care Teams Water Control Station Engineer Relationship Specialty Start Date End Date Armen Sánchez MD PCP - General Family Medicine 05/05/24 documented as of this encounter
--- OUTSIDE RECORDS SUMMARY | 2024-11-30 14:14 | XMS_ITS | CCD ---
Author Organization [facility] Care Team Providers Care Recreation Program Specialist Name Role Phone Unavailable Primary Care Provider Armen Mcgregor DO Primary Care Provider [phone] DO Primary Care Provider [facility] Unavailable [phone] MD Primary Care Provider Unavailable Primary Care Provider Armen Mcgregor MD Primary Care Provider [phone] DO Primary Care Provider [address] Attending Unavailable MASOODLOARMEN HUERTA Referring Unavailable FURLONGARMEN Primary Care Unavailable MASOODLOARMEN HUERTA Attending Unavailable [address]EN ST[address] Referring Unavailable FURLONGARMEN Primary Care Unavailable MASOODLONGARMEN Attending Unavailable MASOODLOARMEN HUERTA Referring Unavailable FURLONGARMEN Primary Care Unavailable CURTIS PAEZ Referring Unavailable MASOODLOARMEN HUERTA Primary Care Unavailable D'ABRVICTORINO AVILA Admitting Unavailable D'ABRAUSTIN VICTORINO Attending Unavailable [address]EN [address] Primary Care Unavailable ZULLY VALLEJO Attending Unavailable [address]EN [address] Primary Care Unavailable MASOODLODEANNA, ARMEN Steele Primary Care Unavailable Armen Street MD Primary Care Provider [phone] Esther Maldonado APRN Attending Provider [phone] DO Primary Care Provider TIFFANY ORNELAS Referring Unavailabl e FURLONG, ARMEN G Primary Care Unavailable JEANNINE, CURTIS R Referring Unavailable FURLONG, ARMEN G Primary Care Unavailable JEANNINE, CURTIS R Referring Unavailable FURLONG, ARMEN G Primary Care Unavailable KATY, LYNDSEY Attending Unavailable JEANNINE, CURTIS R Referring Unavailable FURLONG, ARMEN G Primary Care Unavailable KATY, LYNDSEY Referring Unavailable [...] able FURLONG, ARMEN G Primary Care Unavailable GIACOMO HORNE Attending Unavailable FURLONG, ARMEN G Referring Unavailable FURLONG, ARMEN G Primary Care Unavailable GIACOMO HORNE Attending Unavailable GIACOMO HORNE Referring Unavailable FURLONG, ARMEN G Primary Care Unavailable EDIL SNOW Attending Unavailable TIFFANY ORNELAS Referring ARMEN Mcgregor Primary Care Unavailable TIFFANY ORNELAS Referring ARMEN Mcgregor Primary Care Unavailable Allergies Allergy Classification Reported Allergen(s) Allergy Type Date of Onset Reaction(s) Facility (19 sources) Penicillins; Translations: [PENICILLINS] Propensity to adverse reactions to drug 9 Other (See Comments) [facility] (20 sources) Penicillin G Drug Allergy 5 Rash [facility] (20 sources) Penicillins Propensity to adverse reactions to drug 4 Other (See Comments) [facility] (20 sources) Penicillins Propensity to adverse reactions 9 Hives, Itching [facility] Medications Current Medications Medication Drug Class(es) Dates Sig (Normalized) Sig (Original) azithromycin 250 mg oral tablet (2 sources) Macrolide Antimicrobial Start: 08-15-2018 azithromycin (ZITHROMAX) 250 MG tablet 08/15/2018 Active famotidine 20 mg oral tablet (5 sources) Histamine-2 Receptor Antagonist Start: 11-17-2024 take 1 [...] Active take 1 tablet by mouth once allsion y PNV 19/iron ps,heme/folic/dha ( MV & MIN ORAL) Take 1 tablet by mouth once daily. Active polyethylene glycol 3350 42883 mg powder for oral solution (20 sources) [...] in 24 hours. 21 day ethinyl estradiol 0.598421 mg/hr / etonogestrel 0.005 mg/hr vaginal system [...] of ; puerperium affecting management of mother (20 sources) finding; Translations: [Maternal care for other (suspected) abnormality and damage, gastrointestinal anomalies, not applicable or unspecified] Onset: 09-30-2024 09-30-2024 Episodic Other complications of (1 source) Maternal obesity complicating , childbirth and the puerperium, antepartum; Translations: [Obesity complicating , third trimester] 11-28-2024 Chronic Other complications of (1 source) Obesity complicating , unspecified trimester; Translations: [Obesity complicating , unspecified trimester] Onset: 10-05-2024 Chronic Other complications of (20 sources) Previous operation to cervix affecting ; Translations: [Maternal care for other abnormalities of cervix, unspecified trimester] Onset: 09-21-2024 06-08-2024 Episodic Other complications of (15 sources) Abnormal findings on screening of mother; Translations: [Abnormal chromosomal and genetic finding on screening of mother] 06-20-2024 Episodic Other complications of (20 sources) High risk ; Translations: [Supervision of other high risk pregnancies, unspecified trimester] Onset: 06-12-2024 06-12-2024 Episodic Other complications of (17 sources) Anomaly of placenta; 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, unspecified, third trimester] Onset: 09-21-2024 09-21-2024 Episodic Other complications of (8 sources) Chlamydia trachomatis infection in ; Translations: [Other maternal infectious and parasitic diseases complicating , unspecified trimester] Onset: 11-02-2024 11-02-2024 Episodic Other complications of (4 sources) ultrasound scan abnormal; Translations: [Abnormal ultrasonic finding on screening of mother] 11-21-2024 Episodic Other complications of (2 sources) Supervision of high risk , unspecified, third trimester; Translations: [Supervision of high risk , unspecified, third trimester] Onset: 10-19-2024 Episodic Other complications of (2 sources) Supervision of other high risk pregnancies, unspecified trimester; Translations: [Supervision of other high risk pregnancies, unspecified trimester] Onset: 10-18-2024 Episodic Other complications of (1 source) Other [...] of ] 05-09-2024 Episodic Residual codes; unclassified (13 sources) History of loop electrosurgical excision procedure; [...] of ] 08-30-2024 Episodic Residual codes; unclassified (3 sources) Cystic fibrosis carrier; Translations: [Cystic fibrosis carrier] Onset: 06-16-2024 Episodic Residual codes; unclassified (2 sources) Gestation period, 27 weeks; Translations: [27 weeks gestation of ] 09-18-2024 Episodic Residual codes; unclassified (15 sources) Gestation period, 29 weeks; Translations: [29 weeks gestation of ] Onset: 10-03-2024 09-30-2024 Episodic Residual codes; unclassified (2 sources) Gestation period, 30 weeks; Translations: [30 weeks gestation of ] 10-03-2024 Episodic Residual codes; unclassified (2 sources) Gestation period, 32 weeks; Translations: [32 weeks gestation of ] 10-17-2024 Episodic Residual codes; unclassified (2 sources) Family history of other specified conditions; Translations: [Family history of other specified conditions] Onset: 11-07-2024 Episodic Residual codes; unclassified (2 sources) Family history of other congenital malformations, deformations and chromosomal abnormalities; Translations: [Family history of other congenital malformations, deformations and chromosomal abnormalities] Onset: 11-07-2024 Episodic Residual codes; unclassified (1 source) Gestation period, 38 weeks; Translations: [38 weeks gestation of ] 11-28-2024 Episodic Sexually transmitted infections (not HIV or hepatitis) (2 sources) Chlamydia trachomatis infection; Translations: [Sexually transmitted chlamydial infection of other sites] 08-01-2024 Episodic Unclassified (2 sources) PM MYCHART PREG BODY CHANGES Onset: 06-20-2024 06-20-2024 Unclassified (1 source) Weight Check Onset: 10-27-2023 Unclassified (1 source) Annual Exam Onset: 09-27-2023 Unclassified (2 sources) Maternal care for other (suspected) abnormality and damage, gastrointestinal anomalies, not applicable or unspecified; Translations: [Maternal care for other (suspected) abnormality and damage, gastrointestinal anomalies, not applicable or unspecified] Onset: 09-30-2024 Unclassified (1 source) High Risk Gestation Onset: 11-03-2024 Unclassified (1 source) Non-stress Test Onset: 10-23-2024 Unclassified (1 source) Routine Visit Onset: 10-19-2024 Viral infection (18 sources) Herpes simplex; Translations: [Herpesviral infection, unspecified] Onset: 10-03-2024 10-03-2024 Episodic Past or Other Problems Problem Classification Problem Date Documented Da te Episodic/Chronic Abdominal pain (2 sources) Finding of sensation of abdomen; Translations: [Unspecified abdominal pain] Onset: 04-27-2024 04-27-2024 Episodic Gastrointestinal hemorrhage (20 sources) Rectal hemorrhage; Translations: [Hemorrhage of anus and rectum] Onset: 08-26-2023 09-03-2023 Episodic Immunizations and screening for infectious disease (7 sources) Requires diphtheria, tetanus and pertussis vaccination; Translations: [Encounter for immunization] Onset: 08-16-2018 Resolved: 09-15-2018 08-16-2018 Episodic Mycoses (20 sources) Onychomycosis; Translations: [Tinea unguium] Onset: 09-27-2023 10-27-2023 Episodic Other complications of (3 sources) Abnormal chromosomal and genetic finding on [...] Range Facility OB BPP W NON-STRESS on 11-23-2024 [place] [address] Ultrasound Report Signed Patient: SAPNA SERRANO MR#: [id number] : 1995 Acct:[id number] Age/Sex: 29 / F ADM Date: 11/23/24 Loc: [place] [address]: Curtis Paez D.O. Ordering Physician: Curtis Paez D.O. Date of Service: 11/23/24 Procedure(s): US OB BPP w non-stress Accession Number(s): [id number] cc: [address] ; Curtis Paez D.O. [address] [address] Patient Name: SAPNA SERRANO MRN: TBH:[id number] date: 1995 Sex: F Assigned Patient Location: [facility] Current Patient Location: [facility] Accession/Order Number: [id number] Exam Date: 11/23/2024 14:08 Report Date: 11/23/2024 14:51 At the request of: CURTIS PAEZ DO [...] BPP w non-stress IMPRESSION: Biophysical profile score: 88 Impression dictated by: Geoff Roca M.D. 11/23/2024 2:51 PM Dictation Location: [place] [address] Electronically authenticated by: [id number] Y Date: 11/23/2024 14:51 Dictated By: Geoff Roca M.D. Signed By: 11/23/24 1454 DD/ 1451 TD/TT: [employer] Director: [facility] Radiology, Radiologist, MD - 11/23/2024 [place] [address] Ultrasound Report Signed Patient: SAPNA SERRANO MR#: [id number] : 1995 Acct:[id number] Age/Sex: 29 / F ADM Date: 11/23/24 Loc: [facility] 250-[address]: Curtis Paez D.O. Ordering Physician: Curtis Paez D.O. Date of Service: 11/23/24 Procedure(s): US OB BPP w non-stress Accession Number(s): [id number] cc: [address] Corey D.O. The [place] [address] Patient Name: SAPNA SERRANO MRN: [facility]:[id number] date: 1995 Sex: F Assigned Patient Location: [facility] Current Patient Location: [facility] Accession/Order Number: [id number] Exam Date: 11/23/2024 14:08 Report Date: 11/23/2024 14:51 At the request of: CURTIS PAEZ DO [...] Roca M.D. 11/23/2024 2:51 PM Dictation Location: [place] [address] Electronically authenticated by: [id number] Y Date: 11/23/2024 14:51 Dictated By: Geoff Roca M.D. Signed By: 11/23/24 1454 DD/ 145 TD/TT: [employer] Director: [facility] Radiology Study observation (narrative) [facility] US OB BPP W NON-STRESS Ordered By: Radiologist Radiology on 11-23-2024 [facility] [employer] Work Phone: STREP B SCREENon 11-17-2024 STREP B SCREEN CULTURE RESULTS NEGATIVE FOR GROUP B STREPTOCOCCUS BY NUCLEIC ACID AMPLIFICATION Normal [facility] Comment on above: Performed By: #### S BS #### [facility] ([facility]) [address] [place] [address] VIR US OB BPP W NON-STRESS on 11-16-2024 [facility] [address] [place] [address] Ultrasound Report Signed Patient: SAPNA SERRANO MR#: [id number] : 1995 Acct:[id number] Age/Sex: 29 / F ADM Date: 11/16/24 Loc: [facility] 250-[address]: Curtis Paez D.O. Ordering Physician: Curtis Paez D.O. Date of Service: 11/16/24 Procedure(s): US OB BPP w non-stress Accession Number(s): [id number] cc: [address] ; Curtis Paez D.O. The [address] [id number] Patient Name: SAPNA SERRANO MRN: [facility]:[id number] date: 1995 Sex: F Assigned Patient Location: [facility] Current Patient Location: [facility] Accession/Order Number: [id number] Exam Date: 11/16/2024 15:41 Report Date: 11/16/2024 15:42 At the request of: CURTIS PAEZ DO Procedure: US OB BPP w non-stress Biophysical profile. Reason for exam: Cystic fibrosis COMPARISON: 11/09/2024 TECHNIQUE: Transabdominal imaging of the gravid uterus was obtained. FINDINGS: The federal law clerk reports a BPP of 8 out of 8. NAYE is normal at 13.5 cm. heart rate 139 bpm. US/US OB BPP w non-stress IMPRESSION: BPP 8 out of 8. Impression dictated by: Hugo Atkins Jr., D.O. 11/16/2024 3:42 PM Dictation Location: [place] [address] Electronically authenticated by: [id number] Y Date: 11/16/2024 15:42 Dictated By: Hugo Atkins M.D. Signed By: 11/16/24 1544 DD/ 1542 TD/TT: [employer] Director: [facility] Radiology, Radiologist, MD - 11/17/[address] [address] Ultrasound Report Signed Patient: SAPNA SERRANO MR#: [id number] : 1995 Acct:[id number] Age/Sex: 29 / F ADM Date: 11/16/24 Loc: [facility] 250-[address]: Curtis Paez D.O. Ordering Physician: Curtis Paez D.O. Date of Service: 11/16/24 Procedure(s): US OB BPP w non-stress Accession Number(s): [id number] cc: [address] ; Curtis Paez D.O. [address] [address] Patient Name: SAPNA SERRANO MRN: [facility]:[id number] date: 1995 Sex: F Assigned Patient Location: [facility] Current Patient Location: [facility] Accession/Order Number: [id number] Exam Date: 11/16/2024 15:41 Report Date: 11/16/2024 15:42 At the request of: CURTIS PAEZ DO Procedure: US OB BPP w non-stress Biophysical profile. Reason for exam: Cystic fibrosis COMPARISON: 11/09/2024 TECHNIQUE: Transabdominal imaging of the gravid uterus was obtained. FINDINGS: The federal law clerk reports a BPP of 8 out of 8. NAYE is normal at 13.5 cm. heart rate 139 bpm. US/US OB BPP w non-stress IMPRESSION: BPP 8 out of 8. Impression dictated by: Hugo Atkins Jr., D.O. 11/16/2024 3:42 PM Dictation Location: [place] [address] Electronically authenticated by: [id number] Y Date: 11/16/2024 15:42 Dictated By: Hugo Atkins M.D. Signed By: 11/16/24 1544 DD/ 1542 TD/TT: [employer] Director: [facility] [employer] Radiology Study observation (narrative) [facility] US OB BPP W NON-STRESS Ordered By: Radiologist Radiology on 11-16-2024 [facility] [employer] Work Phone: US OB BPP W NON-STRESS on 11-09-[address] [address] Ultrasound Report Signed Patient: SAPNA SERRANO MR#: [id number] : 1995 Acct:[id number] Age/Sex: 29 / F ADM Date: 11/09/24 Loc: [facility] 250-[address]: Curtis Paez D.O. Ordering Physician: Curtis Paez D.O. Date of Service: 11/09/24 Procedure(s): US OB BPP w non-stress Accession Number(s): [id number] cc: [address] ; Curtis Paez D.O. [place] [id number] Patient Name: SAPNA SERRANO MRN: [facility]:[id number] date: 1995 Sex: F Assigned Patient Location: [facility] Current Patient Location: [facility] Accession/Order Number: [id number] Exam Date: 11/09/2024 11:36 Report Date: 11/09/2024 11:37 At the request of: CURTIS PAEZ DO Procedure: US OB BPP w non-stress BIOPHYSICAL PROFILE: CLINICAL INFORMATION: CYSTIC FIBROSIS CARRIER O09.899 COMPARISON: 11/02/2024 There is a single live intrauterine gestation in cephalic presentation. The reported gestational age is 35 weeks 2 days. The heart rate [id number] beats per minute. FINDINGS: TONE: 1 or [...] Rahman M.D. 11/09/2024 11:37 AM Dictation Location: [place] [address] Electronically authenticated by: [id number] Y Date: 11/09/2024 11:37 Dictated By: Laura Rahman M.D. Signed By: 11/09/24 1140 DD/ 1137 TD/TT: [employer] Director: [facility] Radiology, Radiologist, MD - 11/09/2024 [place] [address] Ultrasound Report Signed Patient: SAPNA SERRANO MR#: [id number] : 1995 Acct:[id number] Age/Sex: 29 / F ADM Date: 11/09/24 Loc: [facility] 250-[address]: Curtis Paez D.O. Ordering Physician: Curtis Paez D.O. Date of Service: 11/09/24 Procedure(s): US OB BPP w non-stress Accession Number(s): [id number] cc: [address] ; Curtis Paez D.O. The [place] [address] Patient Name: SAPNA SERRANO MRN: [facility]:[id number] date: 1995 Sex: F Assigned Patient Location: [facility] Current Patient Location: [facility] Accession/Order Number: [id number] Exam Date: 11/09/2024 11:36 Report Date: 11/09/2024 11:37 At the request of: CURTIS PAEZ DO Procedure: US OB BPP w non-stress BIOPHYSICAL PROFILE: CLINICAL INFORMATION: CYSTIC FIBROSIS CARRIER O09.899 COMPARISON: 11/02/2024 There is a single live intrauterine gestation in cephalic presentation. The reported gestational age is 35 weeks 2 days. The heart rate [id number] beats per minute. FINDINGS: TONE: 1 or [...] Rahman M.D. 11/09/2024 11:37 AM Dictation Location: [place] [address] Electronically authenticated by: [id number] Y Date: 11/09/2024 11:37 Dictated By: Laura Rahman M.D. Signed By: 11/09/24 1140 DD/ 1137 TD/TT: [employer] Director: [facility] Radiology Study observation (narrative) [facility] US OB BPP W NON-STRESS Ordered By: Radiologist Radiology on 11-09-2024 [facility] [employer] Work Phone: C. trachomatis DNA ALLISON+probe Ql (Unsp spec)Ordered By: Sindhu Blackman on 11-05-2024 Interpretation and review of laboratory results Normal [facility] N. gonorrhoeae DNA ALLISON+probe Ql (Unsp spec) Negative Negative [facility] Comment on above: Neisseria gonorrhoea e not detected by nucleic acid amplification. This does not exclude the possibility of infection because results are dependent on adequate specimen collection. [facility] Chlamydia/Gonorrhoeae by PCR , UrineOrdered By: Sindhu Blackman on 11-05-2024 C. trachomatis DNA ALLISON+probe Ql (Unsp spec) Negative Negative [facility] Comment on above: Chlamydia trachomati s [...] are dependent on adequate specimen collection. Normal [facility] Comment on above: Performed By: #### C GUPCR #### [facility] ([facility]) [address] [place] [address] VIR US OB BPP W NON-STRESS on 11-02-2024 The [facility] [address] [place] [address] Ultrasound Report Signed Patient: SAPNA SERRANO MR#: [id number] : 1995 Acct:[id number] Age/Sex: 29 / F ADM Date: 11/02/24 Loc: [facility] 250-[address]: Curtis Paez D.O. Ordering Physician: Curtis Paez D.O. Date of Service: 11/02/24 Procedure(s): US OB BPP w non-stress Accession Number(s): [id number] cc: [address] ; Curtis Paez D.O. The [place] [address] Patient Name: SAPNA SERRANO MRN: [facility]:[id number] date: 1995 Sex: F Assigned Patient Location: [facility] Current Patient Location: [facility] Accession/Order Number: [id number] Exam Date: 11/02/2024 11:40 Report Date: 11/02/2024 11:42 At the request of: CURTIS PAEZ DO Procedure: US OB BPP w non-stress Biophysical profile. Reason for exam: Cystic fibrosis COMPARISON: 10/26/2024 TECHNIQUE: Transabdominal imaging of the gravid uterus was obtained. FINDINGS: The federal law clerk reports a BPP of 8 out of 8. NAYE is normal at 15.9 cm. heart rate 153 bpm. US/US OB BPP w non-stress IMPRESSION: BPP 8 out of 8. Impression dictated by: Hugo Atkins Jr., D.O. 11/02/2024 11:42 AM Dictation Location: [place] [address] Electronically authenticated by: [id number] Y Date: 11/02/2024 11:42 Dictated By: Hugo Atkins M.D. Signed By: 11/02/24 1144 DD/ 1142 TD/TT: [employer] Director: [facility] Radiology, Radiologist, MD - 11/02/2024 [place] [address] Ultrasound Report Signed Patient: SAPNA SERRANO MR#: [id number] : 1995 Acct:[id number] Age/Sex: 29 / F ADM Date: 11/02/24 Loc: [facility] 250-[address]: Curtis Paez D.O. Ordering Physician: Curtis Paez D.O. Date of Service: 11/02/24 Procedure(s): US OB BPP w non-stress Accession Number(s): [id number] cc: [address] ; Curtis Peaz D.O. [address] [address] Patient Name: SAPNA SERRANO MRN: [facility]:[id number] date: 1995 Sex: F Assigned Patient Location: [facility] Current Patient Location: [facility] Accession/Order Number: [id number] Exam Date: 11/02/2024 11:40 Report Date: 11/02/2024 11:42 At the request of: CURTIS PAEZ DO Procedure: US OB BPP w non-stress Biophysical profile. Reason for exam: Cystic fibrosis COMPARISON: 10/26/2024 TECHNIQUE: Transabdominal imaging of the gravid uterus was obtained. FINDINGS: The federal law clerk reports a BPP of 8 out of 8. NAYE is normal at 15.9 cm. heart rate 153 bpm. US/US OB BPP w non-stress IMPRESSION: BPP 8 out of 8. Impression dictated by: Hugo Atkins Jr., D.O. 11/02/2024 11:42 AM Dictation Location: [place] [address] Electronically authenticated by: [id number] Y Date: 11/02/2024 11:42 Dictated By: Hugo Atkins M.D. Signed By: 11/02/24 1144 DD/ 1142 TD/TT: [employer] Ch[employer] [facility] Study [facility] (narrative) [facility] US OB BPP W NON-STRESS Ordered By: Radiologist Radiology on 11-02-2024 [facility] [employer] Work Phone: US OB CERVICAL LENGTHon 10-05 [place] [id number] Ultrasound Report Signed Patient: SAPNA SERRANO MR#: [id number] : 1995 Acct:[id number] Age/Sex: 29 / F ADM Date: 11/01/24 Loc: US Attending Dr: Jocy Ruby Ordering Physician: Jocy Ruby Date of Service: 11/01/24 Procedure(s): US OB cervical length Accession Number(s): [id number] cc: Jocy Ruby; [address] [place] [address] Patient Name: SAPNA SERRANO MRN: [facility]:[id number] date: 1995 Sex: F Assigned Patient Location: US Current Patient Location: US Accession/Order Number: [id number] Exam Date: 11/01/2024 11:33 Report Date: 11/01/2024 [...] Jr., D.O. 11/01/2024 11:35 AM Dictation Location: [place] [address] Electronically authenticated by: [id number] Y Date: 11/01/2024 11:35 Dictated By: Hugo Atkins M.D. Signed By: 11/01/24 1137 DD/ 1135 TD/TT: [employer] Director: [facility] Radiology, Radiologist, MD - 11/01/2024 [place] [address] Ultrasound Report Signed Patient: SAPNA SERRANO MR#: [id number] : 1995 Acct:[id number] Age/Sex: 29 / F ADM Date: 11/01/24 Loc: US Attending Dr: Jocy Ruby Ordering Physician: Jocy Ruby Date of Service: 11/01/24 Procedure(s): US OB cervical length Accession Number(s): [id number] cc: Jocy Ruby; [address] [address] Patient Name: SAPNA SERRANO MRN: [facility]:[id number] date: 1995 Sex: F Assigned Patient Location: US Current Patient Location: US Accession/Order Number: [id number] Exam Date: 11/01/2024 11:33 Report Date: 11/01/2024 [...] Jr., D.O. 11/01/2024 11:35 AM Dictation Location: [place] [address] Electronically authenticated by: [id number] Y Date: 11/01/2024 11:35 Dictated By: Hugo Atkins M.D. Signed By: 11/01/24 1137 DD/ 1135 TD/TT: [employer] Director: [facility] Radiology Study observation (narrative) [facility] US OB CERVICAL LENGTHOrdered By: Radiologist Radiology on 11-01-2024 [facility] [employer] Work Phone: US OB BPP W NON-STRESS on 10-26-[address] [address] Ultrasound Report Signed Patient: SAPNA SERRANO MR#: [id number] : 1995 Acct:[id number] Age/Sex: 29 / F ADM Date: 10/26/24 Loc: [facility] 255-[address]: Curtis Paez D.O. Ordering Physician: Curtis Paez D.O. Date of Service: 10/26/24 Procedure(s): US OB BPP w non-stress Accession Number(s): [id number] cc: [address] ; Curtis Paez D.O. The [address] [address] Patient Name: SAPNA SERRANO MRN: [facility]:[id number] date: 1995 Sex: F Assigned Patient Location: [facility] Current Patient Location: [facility] Accession/Order Number: [id number] Exam Date: 10/26/2024 16:51 Report Date: 10/26/2024 16:52 At the request of: CURTIS PAEZ DO Procedure: US OB BPP w non-stress Biophysical profile. Reason for exam: Cystic fibrosis COMPARISON: None TECHNIQUE: Transabdominal imaging of the gravid uterus was obtained. FINDINGS: The federal law clerk reports a BPP of 8 out of 8. NAYE is normal at 17.6 cm. heart rate 150 bpm. US/US OB BPP w non-stress IMPRESSION: BPP 8 out of 8. Impression dictated by: Hugo Atkins Jr., D.O. 10/26/2024 4:52 PM Dictation Location: [place] [address] Electronically authenticated by: [id number] Y Date: 10/26/2024 16:52 Dictated By: Hugo Atkins M.D. Signed By: 10/26/241654 DD/ 51 TD/TT: [employer] Ch[employer] Director: [facility] Radiology, Radiologist, MD - 10/27/2024 [place] [id number] Ultrasound Report Signed Patient: SAPNA SERRANO MR#: [id number] : 1995 Acct:[id number] Age/Sex: 29 / F ADM Date: 10/26/24 Loc: [facility] 255-[address]: Curtis Paez D.O. Ordering Physician: Curtis Paez D.O. Date of Service: 10/26/24 Procedure(s): US OB BPP w non-stress Accession Number(s): [id number] cc: [address] ; Curtis Paez D.O. The [place] [address] Patient Name: SAPNA SERRANO MRN: TBH:[id number] date: 1995 Sex: F Assigned Patient Location: [facility] Current Patient Location: [facility] Accession/Order Number: [id number] Exam Date: 10/26/2024 16:51 Report Date: 10/26/2024 16:52 At the request of: CURTIS PAEZ DO Procedure: US OB BPP w non-stress Biophysical profile. Reason for exam: Cystic fibrosis COMPARISON: None TECHNIQUE: Transabdominal imaging of the gravid uterus was obtained. FINDINGS: The federal law clerk reports a BPP of 8 out of 8. NAYE is normal at 17.6 cm. heart rate 150 bpm. US/US OB BPP w non-stress IMPRESSION: BPP 8 out of 8. Impression dictated by: Hugo Atkins Jr., D.O. 10/26/2024 4:52 PM Dictation Location: [place] [address] Electronically authenticated by: [id number] Y Date: 10/26/2024 16:52 Dictated By: Hugo Atkins M.D. Signed By: 10/26/241654 DD/ 51 TD/TT: [employer]bell Choir Director: [facility] Radiology Study observation (narrative) [facility] OB BPP W NON-STRESS Ordered By: Radiologist Radiology on 10-26-2024 [facility] [employer] Work Phone: nonstress test - Mater nal Medicineon 10-24-2024 Patient Name: Sapna Serrano Patient : 1995 NST Objective Findings: Variability: (!) Marked Decelerations: None Accelerations: Yes Acoustic Stimulator: No Baseline: 140 BPM Uterine Irritability: No Contractions: Not present NST Interpretation: Nonstress Test Interpretation: Reactive (Lyndsey Burns MD) Comments: Dr Burns rviewed tracing and is reactive, baby active no ctxs (Jennifer Sheets) NST performed by: Jennifer Sheets RN 10/24/2024 4:16 PM ASOBGYN nonstress test - Mater nal MedicineOrdered By: Rashida Hutchins on 10-24-2024 [facility] US OB BPP W NON-STRESS on 10-19-2024 [place] [address] Ultrasound Report Signed Patient: SAPNA SERRANO MR#: [id number] : 1995 Acct:[id number] Age/Sex: 29 / F ADM Date: 10/19/24 Loc: [facility] 250-[address]: Curtis Paez D.O. Ordering Physician: Curtis Paez D.O. Date of Service: 10/19/24 Procedure(s): US OB BPP w non-stress Accession Number(s): [id number] cc: [address] ; Curtis Paez D.O. [place] [address] Patient Name: SAPNA SERRANO MRN: TBH:[id number] date: 1995 Sex: F Assigned Patient Location: Current Patient Location: US Accession/Order Number: [id number] Exam Date: 10/19/2024 11:25 Report Date: 10/19/2024 [...] Rahman M.D. 10/19/2024 11:27 AM Dictation Location: [place] [address] Electronically authenticated by: [id number] Y Date: 10/19/2024 11:27 Dictated By: Laura Rahman M.D. Signed By: 10/19/24 1130 DD/ 1127 TD/TT: [employer] Director: [facility] Radiology, Radiologist, MD - 10/19/2024 [place] [address] Ultrasound Report Signed Patient: SAPNA SERRANO MR#: [id number] : 1995 Acct:[id number] Age/Sex: 29 / F ADM Date: 10/19/24 Loc: [place] [address]: Curtis Paez D.O. Ordering Physician: Curtis Paez D.O. Date of Service: 10/19/24 Procedure(s): US OB BPP w non-stress Accession Number(s): [id number] cc: [address] ; Curtis Paez D.O. The [place] [address] Patient Name: SAPNA SERRANO MRN: [facility]:[id number] date: 1995 Sex: F Assigned Patient Location: Current Patient Location: US Accession/Order Number: [id number] Exam Date: 10/19/2024 11:25 Report Date: 10/19/2024 [...] Rahman M.D. 10/19/2024 11:27 AM Dictation Location: [place] [address] Electronically authenticated by: [id number] Y Date: 10/19/2024 11:27 Dictated By: Laura Rahman M.D. Signed By: 10/19/24 1130 DD/ 1127 TD/TT: [employer] Director: [facility] Radiology Study observation (narrative) [facility] US OB BPP W NON-STRESS Ordered By: Radiologist Radiology on 10-19-2024 [facility] [employer] Work Phone: No Panel InformationOrdered By: Esther Maldonado on 10-17-2024 Quick Strep (POC) [facility] US OB BPP W NON-STRESS on 10-12-2024 [place] [address] Ultrasound Report Signed Patient: SAPNA SERRANO MR#: [id number] : 1995 Acct:[id number] Age/Sex: 29 / F ADM Date: 10/12/24 Loc: [facility] 250-[address]: Curtis Paez D.O. Ordering Physician: Curtis Paez D.O. Date of Service: 10/12/24 Procedure(s): US OB BPP w non-stress Accession Number(s): [id number] cc: [address] ; Curtis Paez D.O. The [address] [address] Patient Name: SAPNA SERRANO MRN: [facility]:[id number] date: 1995 Sex: F Assigned Patient Location: [facility] Current Patient Location: [facility] Accession/Order Number: [id number] Exam Date: 10/12/2024 20:55 Report Date: 10/12/2024 [...] Schumacher M.D. 10/12/2024 8:55 PM Dictation Location: [place] [address] Electronically authenticated by: [id number] Y Date: 10/12/2024 20:55 Dictated By: Man Schumacher D.O. Signed By: 10/12/242057 DD/ 54 TD/TT: [employer]bell Choir Director: [facility] Radiology, Radiologist, - 10/13/2024 [place] [address] Ultrasound Report Signed Patient: SAPNA SERRANO MR#: [id number] : 1995 Acct:[id number] Age/Sex: 29 / F ADM Date: 10/12/24 Loc: [facility] 250-[address]: Curtis Paez D.O. Ordering Physician: Curtis Paez D.O. Date of Service: 10/12/24 Procedure(s): US OB BPP w non-stress Accession Number(s): [id number] cc: [address] ; Curtis Paez D.O. The [place] [id number] Patient Name: SAPNA SERRANO MRN: [facility]:[id number] date: 1995 Sex: F Assigned Patient Location: [facility] Current Patient Location: [facility] Accession/Order Number: [id number] Exam Date: 10/12/2024 20:55 Report Date: 10/12/2024 [...] Schumacher M.D. 10/12/2024 8:55 PM Dictation Location[facility] Electronically authenticated by: [id number] Y Date: 10/12/2024 20:55 Dictated By: Man Schumacher D.O. Signed By: 10/12/242057 DD/ 54 TD/TT: Handbell Choir Director: [facility] [employer] Radiology Study observation (narrative) [facility] [employer] US OB BPP W NON-STRESS Ordered By: Radiologist Radiology on 10-12-2024 [facility] Work Phone: US OB PLACENTAon 10-04-2024 [place] [address] Ultrasound Report Signed Patient: SAPNA SERRANO MR#: [id number] : 1995 Acct:[id number] Age/Sex: 29 / F ADM Date: 09/24/24 Loc: [facility] Attending Dr: Curtis Paez D.O. Ordering Physician: Curtis Paez D.O. Date of Service: 09/24/24 Procedure(s): US OB placenta Accession Number(s): [id number] cc: [address] Corey D.O. [address] [address] Patient Name: SAPNA SERRANO MRN: [id number]:[id number] date: 1995 Sex: F Assigned Patient Location: [facility] Current Patient Location: US Accession/Order Number: [id number] Exam Date: 10/04/2024 09:16 Report Date: 10/04/2024 [...] Rahman M.D. 10/04/2024 9:50 AM Dictation Location: [place] [address] Electronically authenticated by: [id number] Y Date: 10/04/2024 09:50 Dictated By: Laura Rahman M.D. Signed By: 10/04/24 0952 DD/ TD/TT: Handbell Ch[employer] Director: [facility] Radiology, Radiologist, MD - 10/04/2024 [place] [address] Ultrasound Report Signed Patient: SAPNA SERRANO MR#: [id number] : 1995 Acct:[id number] Age/Sex: 29 / F ADM Date: 09/24/24 Loc: [facility] Attending Dr: Curtis Paez D.O. Ordering Physician: Curtis Paez D.O. Date of Service: 09/24/24 Procedure(s): US OB placenta Accession Number(s): [id number] cc: [address] Corey D.O. The [place] [address] Patient Name: SAPNA SERRANO MRN: [id number] date: 1995 Sex: F Assigned Patient Location: [facility] Current Patient Location: US Accession/Order Number: [id number] Exam Date: 10/04/2024 09:16 Report Date: 10/04/2024 [...] Rahman M.D. 10/04/2024 9:50 AM Dictation Location: [place] [address] Electronically authenticated by: [id number] Y Date: 10/04/2024 09:50 Dictated By: Laura Rahman M.D. Signed By: 10/04/24 0952 DD/ 0950 TD/TT: Handbell Choir Director: [facility] Radiology Study observation (narrative) [facility] US OB PLACENTAOrdered By: Ra fanogfelipe Radiology on 10-04-2024 [facility] [employer] Work Phone: Urinalysis macro (dipstick) panel (U)on 10-03-2024 Bilirubin, UA Negative Negative - 4(70) +++ mg/dL [facility] Blood, UA Negative Negative - 50 Koby/mcL [facility] Clarity, UA Clear [facility] Healthtn re Color, UA Yellow [facility] e Glucose, UA Negative Negative - 2000(110) ++++ mg/dL [facility] Interpretation and review of laboratory results Abnormal [facility] Ketones, UA Negative Negative - 160(16) ++++ mg/dL [facility] Leukocytes, UA Negative Negative - 500+++ Danny/mcL [facility] Nitrite, UA Negative Negative - Positive [facility] pH, UA 7.5 5 - 9 [facility] Protein, UA Trace Negative - 2000(20) ++++ mg/dL [facility] Spec Grav, UA 1.02 1 - 1.03 [facility] Urobilinogen, UA 0.2 0.2 - 12 mg/dL [facility] US OB BPP W NON-STRESS on 09-25-2024 [place] [address] Ultrasound Report Signed Patient: SAPNA SERRANO MR#: [id number] : 1995 Acct:[id number] Age/Sex: 29 / F ADM Date: Loc: [facility] 251- Attending Dr: Curtis Paez D.O. Ordering Physician: Curtis Paez D.O. Date of Service: 09/24/24 Procedure(s): US OB BPP w non-stress Accession Number(s): [id number] cc: [address] ; Curtis Paez D.O. [place] [address] Patient Name: SAPNA SERRANO MRN: [facility]:[id number] date: 1995 Sex: F Assigned Patient Location: [facility] [place] [facility] Accession/Order Number: [id number] Exam Date: 09/25/2024 08:05 Report Date: 09/25/2024 08:08 At the request of: CURTIS PAEZ DO Procedure: US OB BPP w non-stress CLINICAL DATA: History of bleeding. Possible abruption. BIOPHYSICAL PROFILE: COMPARISON: None There is a single live intrauterine gestation in cephalic presentation. The reported gestational age is 28 weeks 5 days. The heart rate qgowxicx179 beats per minute. FINDINGS: TONE: 1 or [...] is in upper normal range. Total score: 8/ US/US OB BPP w non-stress IMPRESSION: NORMAL BIOPHYSICAL PROFILE Impression dictated by: Laura Rahman M.D. 09/25/2024 8:08 AM Dictation Location: [place] [address] Electronically authenticated by: [id number] Y Date: 09/25/2024 08:08 Dictated By: Luara Rahman M.D. Signed By: 09/25/2410 DD/ TD/TT: [employer]bell Choir Director: [facility] Radiology, Radiologist, MD - 09/25/2024 [place] [address] Ultrasound Report Signed Patient: SAPNA SERRANO MR#: [id number] : 1995 Acct:[id number] Age/Sex: 29 / F ADM Date: Loc: [facility] 251-[address]: Curtis Paez D.O. Ordering Physician: Curtis Paez D.O. Date of Service: 09/24/24 Procedure(s): US OB BPP w non-stress Accession Number(s): [id number] cc: [address] ; Curtis Paez D.O. [place] [address] Patient Name: SAPNA SERRANO MRN: [facility]:[id number] date: 1995 Sex: F Assigned Patient Location: [facility] [place] [facility] Accession/Order Number: [id number] Exam Date: 09/25/2024 08:05 Report Date: 09/25/2024 08:08 At the request of: CURTIS PAEZ DO Procedure: US OB BPP w non-stress CLINICAL DATA: History of bleeding. Possible abruption. BIOPHYSICAL PROFILE: COMPARISON: None There is a single live intrauterine gestation in cephalic presentation. The reported gestational age is 28 weeks 5 days. The heart rate [id number] beats per minute. FINDINGS: TONE: 1 or [...] Rahman M.D. 09/25/2024 8:08 AM Dictation Location: [place] [address] Electronically authenticated by: [id number] Y Date: 09/25/2024 08:08 Dictated By: Laura Rahman M.D. Signed By: 09/25/24 0810 DD/ 0808 TD/TT: Handbell Choir Director: [facility] Radiology Study observation (narrative) [facility] US OB BPP W NON-STRESS Ordered By: Radiologist Radiology on 09-25-2024 [facility] [employer] Work Phone: US OB CERVICAL LENGTHon 09-03 [place] [id number] Ultrasound Report Signed Patient: SAPNA SERRANO MR#: [id number] : 1995 Acct:[id number] Age/Sex: 29 / F ADM Date: 09/21/24 Loc: US Attending Dr: Curtis Paez D.O. Ordering Physician: Curtis Paez D.O. Date of Service: 09/21/24 Procedure(s): US OB cervical length Accession Number(s): [id number] cc: [address] ; Curtis Paez D.O. The [place] [id number] Patient Name: SAPNA SERRANO MRN: [facility]:[id number] date: 1995 Sex: F Assigned Patient Location: US Current Patient Location: US Accession/Order Number: [id number] Exam Date: 09/21/2024 14:39 Report Date: 09/21/2024 [...] Jr., D.O. 09/21/2024 2:40 PM Dictation Location: [place] [address] Electronically authenticated by: [id number] Y Date: 09/21/2024 14:40 Dictated By: Hugo Atkins M.D. Signed By: 09/21/24 1443 DD/ 1440 TD/TT: Handbell Choir Director: [facility] Radiology, Radiologist, - 09/21/2024 [place] [address] Ultrasound Report Signed Patient: SAPNA SERRANO MR#: [id number] : 1995 Acct:[id number] Age/Sex: 29 / F ADM Date: 09/21/24 Loc: US Attending Dr: Curtis Paez D.O. Ordering Physician: Curtis Paez D.O. Date of Service: 09/21/24 Procedure(s): US OB cervical length Accession Number(s): [id number] cc: [address] ; Curtis Paez D.O. The [place] [id number] Patient Name: SAPNA SERRANO MRN: [facility]:[id number] date: 1995 Sex: F Assigned Patient Location: US Current Patient Location: US Accession/Order Number: [id number] Exam Date: 09/21/2024 14:39 Report Date: 09/21/2024 [...] Jr., D.O. 09/21/2024 2:40 PM Dictation Location: [place] [address] Electronically authenticated by: [id number] Y Date: 09/21/2024 14:40 Dictated By: Hugo Atkins M.D. Signed By: 09/21/24 1443 DD/ 1440 TD/TT: Handbell Choir Director: [facility] [employer] Radiology Study observation (narrative) [facility] US OB CERVICAL LENGTHOrdered By: Radiologist Radiology on 09-21-2024 [facility] [employer] Work Phone: US OB PLACENTAon 09-21-2024 [place] [address] Ultrasound Report Signed Patient: SAPNA SERRANO MR#: [id number] : 1995 Acct:[id number] Age/Sex: 29 / F ADM Date: 09/21/24 Loc: US Attending Dr: Curtis Paez D.O. Ordering Physician: Curtis Paez D.O. Date of Service: 09/21/24 Procedure(s): US OB placenta Accession Number(s): [id number] cc: [address] ; Curtis Paez D.O. [address] [address] Patient Name: SAPNA SERRANO MRN: [facility]:[id number] date: 1995 Sex: F Assigned Patient Location: US Current Patient Location: US Accession/Order Number: [id number] Exam Date: 09/21/2024 14:41 Report Date: 09/21/2024 [...] Jr., D.O. 09/21/2024 2:53 PM Dictation Location: [place] [address] Electronically authenticated by: [id number] Y Date: 09/21/2024 14:53 Dictated By: Hugo Atkins M.D. Signed By: 09/21/24 1456 DD/ 1453 TD/TT: Handbell Choir Director: [facility] Radiology, Radiologist, MD - 09/21/2024 [place] [address] Ultrasound Report Signed Patient: SAPNA SERRANO MR#: [id number] : 1995 Acct:[id number] Age/Sex: 29 / F ADM Date: 09/21/24 Loc: US Attending Dr: Curtis Paez D.O. Ordering Physician: Curtis Paez D.O. Date of Service: 09/21/24 Procedure(s): US OB placenta Accession Number(s): [id number] cc: [address] Corey D.O. The [address] [address] Patient Name: SAPNA SERRANO MRN: [id number]:[id number] date: 1995 Sex: F Assigned Patient Location: US Current Patient Location: Accession/Order Number: [id number] Exam Date: 09/21/2024 14:41 Report Date: 09/21/2024 [...] Jr., D.O. 09/21/2024 2:53 PM Dictation Location: [place] [address] Electronically authenticated by: [id number] Y Date: 09/21/2024 14:53 Dictated By: Hugo Atkins M.D. Signed By: 09/21/24 1456 DD/ 1453 TD/TT: Handbell Choir Director: [facility] [employer] Radiology Study observation (narrative) [facility] US OB PLACENTAOrdered By: Ra recio Radiology on 09-21-2024 [facility] [employer] Work Phone: US OB 1 OR [...] MD 09/11/24 Final result Normal [facility] ALL CBC WITH AUTO DIFFon BASOPHILS ABSOLUTE AUTO 0.1 [facility] Basophils/100 WBC (Bld) 0.7 % 0.2 - 2.0 % [facility] Eosin[facility]/100 WBC (Bld) 1.8 % 0.9 - 7.0 % [facility] Erythrocyte distribution width (RBC) [Ratio] 13.7 % 11.0 - 15.0 % [facility] IMMATURE GRANULOCYTES ABS AUTO 0.06 High [facility] Immature granulocytes/100 WBC (Bld) 0.5 % 0.0 - 0.5 % [facility] Interpretation and review of laboratory results Abnormal [facility] LYMPHOCYTES ABSOLUTE AUTO 2.1 [facility] Lymphocytes/100 WBC (Bld) 17.6 % Low 20.5 - 60.0 % [facility] MCH (RBC) [Entitic mass] 30.1 pg 26.7 - 34.0 pg [facility] MCHC (RBC) [Mass/Vol] 33.5 g/dL 29.9 - 35.2 g/dL [facility] MCV (RBC) [Entitic vol] 89.8 fL 81.0 - 99.0 fL [facility] MONOCYTES ABSOLUTE AUTO 0.7 [facility] Monocytes/100 WBC (Bld) 6 % 1.7 - 12.0 % [facility] NEUTROPHILS ABSOLUTE AUTO 8.6 High [facility] Neutrophils/100 WBC (Bld) 73.4 % 43.0 - 75.0 % [facility] Platelet mean volume (Bld) [Entitic vol] 9.6 fL 9.5 - 13.5 fL [facility] # 0.2 [facility] PLT 272 [facility] RBC 4.32 [facility] WBC 11.8 High [facility] [employer] [facility] CBC without diffon Platelets (Bld) [#/Vol] 272 10*3/uL [facility] Rbc Mcv (Fl) By Automated Count 89.8 [facility] Glucose tolerance, 1 houron 08-30-2024 Glucose Tolerance Test 1 Hour 66 [facility] - Hematology and Cell countson 08-30-2024 Hematocrit (Bld) [Volume fraction] 38.8 % [facility] [employer] Hemoglobin (Bld) [Mass/Vol] 13 g/dL [facility] [employer] No Panel Informationon 08-30 [facility] [employer] Colposcopyon 08-14-2024 Curtis Paez DO 08/15/2024 [...] paperwork completed: yes Educational handouts given: no [facility] [employer] [facility] [employer] SEND OUT TESTon 07-28-2024 SENT TO [facility] [employer]IA [employer] [phone] [place] [address] Comment on above: Result Comment: Miki ected on 07/28 AT 1418: Previously reported as [facility] [employer] [id number] SENT TO [facility]IA [employer] [phone] [place] [address] Comment on above: Result Comment: Miki ected on 07/28 AT 1418: Previously reported as [facility] [employer] [id number] SPECIMEN 3 MATERNAL AMNIOTIC FLUID 2 EDTA AND 1 SODIUM HEP MATERNAL Normal [facility] TEST NAME: KNOWN MUTATION ANALYSIS CFTR GENE Normal [facility] TEST NAME: MATERNAL CELL CONTAMINATION Normal [facility] TEST RESULT See separate report. View in OnBase or in EPIC. Normal [facility] AFP, SERUM, OPEN SPINA BIFID Aon 07-08-2024 AFP MOM 0.85 . [facility] [employer] AFP VALUE 28.4 ng/mL . [facility] [employer] COMMENT: Comment . [facility] [employer] Comment on above: Joan Shetty , Ph.D., [facility] Director References: Available Upon Request. Multiples Of Median Cutoffs For AFP Elevations [place] 2.5 Black 2.8 IDD 2.0 Twins 4.5 Abbreviation Definitions IDD - Insulin Dep Diabetes OSBR - Open Spina Bifida Risk For further inquiries contact [facility] at [phone]. This test was developed and its performance characteristics determined by [employer]. It has not been cleared or approved by the Food and Drug Administration. Performed at: [facility] [address] [place], [place] [id number] Manager Intern: Sonja Esposito [facility], Phone: [phone] GEST. AGE ON COLLECTION DATE 17.1 . weeks [facility] GESTAT. AGE BASED ON LMP . [facility] Comment on above: Recalculations are n ot recommended when gestational dating by LMP and ultrasound are within 10 days. INSULIN DEP DIABETES No . [facility] INTERPRETATION Comment . [facility] Comment on above: Interpretation: Scre en Negative [...] Customer Services to discuss available options. The [employer] [place] [employer] recommends amniocentesis be offered to women age 35 and older. MATERNAL [age] [facility] [employer] MULTIPLE GESTATION No . [facility] [place] [address] [place] [address] . [facility] Joe back RACE . [facility] [employer] RESULTS Report . [facility] [employer] TEST RESULTS: Negative . [facility] WEIGHT 186 . lbs [facility] N N LMP [id number] 1 17 N 1 Y 186 N N N N N White/ [facility] RECURRENT VAGINITIS (HTRX)on 07-07-2024 ATOPOBIUM VAGINAE 0 [facility] ATOPOBIUM VAGINAE Not detected [facility] BVAB 2,3 (BACTERIAL VAGINOSIS ASSOCIATED BACTERIA 2, 3); MOBILUNCUS SPP 0 [facility] BVAB 2,3 (BACTERIAL VAGINOSIS ASSOCIATED BACTERIA 2, 3); MOBILUNCUS SPP Not detected [facility] ILIANA ALBICANS, PARAPSILOSIS, TROPICALIS 0 [facility] ILIANA ALBICANS, PARAPSILOSIS, TROPICALIS Not detected [facility] ILIANA GLABRATA 0 [facility] ILIANA GLABRATA Not detected N[facility] ILIANA KRUSEI 0 [facility] IL[facility]NA KRUSEI Not detected [facility] CHLAMYDIA TRACHOMATIS 22.157 Abnormal [facility] Healthcare CHLAMYDIA TRACHOMATIS Detected Abnormal [facility] Healthcare ERMB, C; MEFA 26.913 Abnormal [facility] Health care ERMB, C; MEFA Detected Abnormal [facility] care GARDNERELLA VAGINALIS 0 [facility] Healthcare GARDNERELLA VAGINALIS Not detected N S Healthcare Interpretation and review of laboratory results Abnormal [facility] Healthcare MEGASPHAERA (TYPES 1, 2) 0 [facility] Healthcare MEGASPHAERA (TYPES 1, 2) Not detected [facility] Healthcare MYCOPLASMA GENITALIUM 0 [facility] S Healthcare MYCOPLASMA GENITALIUM Not detected N [facility] NEISSERIA GONORRHOEAE 0 [facility] Healthcare NEISSERIA GONORRHOEAE Not detected N [facility] Healthcare TET B, TET M 23.614 Abnormal [facility] Healthc are TET B, TET M Detected [facility] TRICHOMONAS VAGINALIS 0 [facility] Healthcare TRICHOMONAS VAGINALIS Not detected N [facility] AFP Single Marker Scrn, Mate rnal, Serumon 07-06-2024 Ms Alpha-Fetoprotein Negative [facility] C. trachomatis DNA ALLISON+probe Ql (Unsp spec)on 07-06-2024 Chlamydia Dna(Pcr) Detected [facility] Gonorrhoeae Dna(Pcr) Negative [facility] HM PAP SMEARon 07-06-2024 HM Pap smear LSIL [facility] High risk HPV w/genoon 04-03 -2025 Other High Risk Hpv Negative [facility] No Panel Informationon 07-06 [facility] Urinalysis macro (dipstick) panel (U)on 07-06-2024 Bilirubin, UA Negative Negative - 4(70) +++ mg/dL [facility] Blood, UA Negative Negative - 50 Koby/mcL [facility] Clarity, UA Clear [facility] re Color, UA Yellow [facility] Glucose, UA Negative Negative - 1999(110) ++++ mg/dL [facility] Interpretation and review of laboratory results Abnormal [facility] Ketones, UA Positive Negative - 160(16) ++++ mg/dL [facility] Comment on above: trace Leukocytes, UA Trace Negative - 500+++ Danny/mcL [facility] Nitrite, UA Negative Negative - Positive [facility] pH, UA 6 5 - 9 [facility] e Protein, UA Trace Negative - 1999(20) ++++ mg/dL [facility] Spec Grav, UA 1.03 1 - 1.03 [facility] Urobilinogen, UA 0.2 0.2 - 12 mg/dL [facility] [place] [address] Ultrasound Report Signed Patient: SAPNA SERRANO MR#: [id number] : 1995 Acct:[id number] Age/Sex: 28 / F ADM Date: 07/05/24 Loc: US Attending Dr: Curtis Paez D.O. Ordering Physician: Curtis Paez D.O. Date of Service: 07/05/24 Procedure(s): US OB cervical length Accession Number(s): [id number] cc: [address] ; Curtis Paez D.O. [address] [address] Patient Name: SAPNA SERRANO MRN: [id number] date: 1995 Sex: F Assigned Patient Location: US Current Patient Location: US Accession/Order Number: [id number] Exam Date: 07/05/2024 08:08 Report Date: 07/05/2024 [...] Laura Rahman M.D.07/05/2024 8:10 AM Dictation Location: [place] [address] Electronically authenticated by: [id number] Y Date: 07/05/2024 08:10 Dictated By: Laura Rahman M.D. Signed By: 07/05/24812 DD/ 9 TD/TT: [employer]bell Choir Director: [facility] Radiology, Radiologist, MD - 07/05/2024 [place] [address] Ultrasound Report Signed Patient: SAPNA SERRANO MR#: [id number] : 1995 Acct:[id number] Age/Sex: 28 / F ADM Date: 07/05/24 Loc: US Attending Dr: Curtis Paez D.O. Ordering Physician: Curtis Paez D.O. Date of Service: 07/05/24 Procedure(s): US OB cervical length Accession Number(s): [id number] cc: [address] Corey D.O. [place] [address] Patient Name: SAPNA SERRANO MRN: [facility]:[id number] date: 1995 Sex: F Assigned Patient Location: US Current Patient Location: US Accession/Order Number: [id number] Exam Date: 07/05/2024 08:08 Report Date: 07/05/2024 08:10 At the request of: CURTIS JEANNINE DO Procedure: US OB cervical length ULTRASOUND [...] Laura Rahman M.D.07/05/2024 8:10 AM Dictation Location: [place] [address] Electronically authenticated by: [id number] Y Date: 07/05/2024 08:10 Dictated By: Laura Rahman M.D. Signed By: 07/05/24812 DD/ 9 TD/TT: [employer] Director: [facility] Radiology Study observation (narrative) [facility] US OB CERVICAL LENGTHOrdered By: Radiologist Radiology on 07-05-2024 [facility] Work Phone: Urinalysis macro (dipstick) panel (U)on 06-08-2024 Bilirubin, UA Negative Negative - 4(70) +++ mg/dL [facility] Blood, UA Negative Negative - 50 Koby/mcL [facility] Clarity, UA Clear [facility] re Color, UA Yellow [facility] e Glucose, UA Negative Negative - 1999(110) ++++ mg/dL [facility] Interpretation and review of laboratory results Normal [facility] Ketones, UA Negative Negative - 160(16) ++++ mg/dL [facility] Leukocytes, UA Negative Negative - 500+++ Danny/mcL [facility] Nitrite, UA Negative Negative - Positive [facility] pH, UA 6 5 - 9 [facility] e Protein, UA Negative Negative - 1999(20) ++++ mg/dL [facility] Spec Grav, UA 1.02 1 - 1.03 [facility] Urobilinogen, UA 0.2 0.2 - 12 mg/dL [facility] Health[facility] e ALL CBC WITH AUTO DIFFon BASOPHILS ABSOLUTE AUTO 0.1 [facility] Basophils/100 WBC (Bld) 0.6 % 0.2 - 2.0 % [facility] Eosinophils/100 WBC (Bld) 1.7 % 0.9 - 7.0 % [facility] Erythrocyte distribution width (RBC) [Ratio] 13.2 % 11.0 - 15.0 % [facility] Hematocrit (Bld) [Volume fraction] 41.1 % 36.0 - 48.0 % [facility] Hemoglobin (Bld) [Mass/Vol] 13.5 g/dL 12.0 - 16.0 g/dL [facility] IMMATURE GRANULOCYTES ABS AUTO 0.05 High [facility] Immature granulocytes/100 WBC (Bld) 0.5 % 0.0 - 0.5 % [facility] Interpretation and review of laboratory results Abnormal [facility] LYMPHOCYTES ABSOLUTE AUTO 1.9 [facility] Lymphocytes/100 WBC (Bld) 17 % Low 20.5 - 60.0 % [facility] MCH (RBC) [Entitic mass] 29.6 pg 26.7 - 34.0 pg [facility] MCHC (RBC) [Mass/Vol] 32.8 g/dL 29.9 - 35.2 g/dL [facility] MCV (RBC) [Entitic vol] 90.1 fL 81.0 - 99.0 fL [facility] MONOCYTES ABSOLUTE AUTO 0.8 [facility] Monocytes/100 WBC (Bld) 7 % 1.7 - 12.0 % [facility] NEUTROPHILS ABSOLUTE AUTO 8.1 High [facility] Neutrophils/100 WBC (Bld) 73.2 % 43.0 - 75.0 % [facility] Platelet mean volume (Bld) [Entitic vol] 9.6 fL 9.5 - 13.5 fL [facility] EO # 0.2 [facility] PLT 312 [facility] TB RBC 4.56 [facility] WBC 11.1 High [facility] CLINISYNC BOX TESTon 05-17-2024 BOX TEST SENT OUT MALOU [facility]care BOX1 UNITY [facility] BOX2 05/17/24 [facility] UNITY BOX CLINISYNC [facility] Drug Screen, Urineon 025 Amphetamine/Methamphet amine Negative [facility] Barbiturates Negative [facility] Benzodiazepines Negative [facility] Cocaine Metabolite Negative [facility] Methadone Negative [facility] Opiates Negative [facility] Oxycodone Negative [facility] Phencyclidine Negative [facility] Thc Marijuana, Urine Negative [facility] HBV surface Ag IA Qlon 05-17 Hepatitis B Surface Antigen Negative [facility] HCV Ab IA Qlon 05-17-2024 HCV Ab Ql (S) Non-Reactive [facility] HIV 1+2 Ab+HIV1 p24 Ag IA Ql on 05-17-2024 HIV 1&2 AB/AG Non-Reactive [facility] No Panel Informationon 05-17 [facility] Rubella IGG immune statuson 05-17-2024 Rubella immune IgG 1.54 [facility] Comment on above: IMMUNE T. pallidum IgG+IgM IA Ql (S )Ordered By: Lyric Sánchez on 05-17-2024 Syphilis Non-Reactive [facility] TSHon 05-17-2024 Thyroid Stimulating (3Rd Generation) Hormone/ Tsh 0.649 [facility] Type and screenon 05-17-2024 Abo/Rh(D) Positive [facility] HCG ( test) Ql (U)o n 05-05-2024 Interpretation and review of laboratory results Abnormal [facility] Preg Test, Ur Positive Negative [facility] care [facility] Urinalysis macro (dipstick) panel (U)on 05-05-2024 Bilirubin, UA Negative Negative - 4(70) +++ mg/dL [facility] Blood, UA Negative Negative - 50 Koby/mcL [facility] Clarity, UA Clear [facility] re Color, UA Yellow [facility] Glucose, UA Negative Negative - 1999(110) ++++ mg/dL [facility] Interpretation and review of laboratory results Abnormal [facility] Ketones, UA Negative Negative - 160(16) ++++ mg/dL [facility] Leukocytes, UA Negative Negative - 500+++ Danny/mcL [facility] Nitrite, UA Negative Negative - Positive [facility] pH, UA 7 5 - 9 [facility] Protein, UA Positive Negative - 1999(20) ++++ mg/dL [facility] Comment on above: 30 Spec Grav, UA 1.02 1 - 1.03 [facility] Urobilinogen, UA 0.2 0.2 - 12 mg/dL [facility] Basic Metabolic Panelon 04-06 Anion gap [Moles/Vol] 12 mmol/L 9 - 16 mmol/L [facility] Calcium [Mass/Vol] 9.1 mg/dL 8.6 - 10. 4 mg/dL [facility] Chloride [Moles/Vol] 102 mmol/L 98 - 10 7 mmol/L [facility] CO2 [Moles/Vol] 23 mmol/L 20 - 31 mmol/L [facility] Creatinine [Mass/Vol] 0.5 mg/dL 0.50 - 0.90 mg/dL [facility] Est, Tom Hogan Rate - PINF [facility] Comment on above: These results are [...] 66 mg/dL Low 74 - 99 mg/dL [facility] Interpretation and review of laboratory results Abnormal [facility] Potassium [Moles/Vol] 3.8 mmol/L 3.7 - 5.3 mmol/L [facility] Sodium [Moles/Vol] 137 mmol/L 136 - 145 mmol/L [facility] Urea nitrogen [Mass/Vol] 9 mg/dL 6 - 20 mg/dL [facility] Urea nitrogen/Creatinine [Mass ratio] 18 mg/mg 9 - 20 [facility] Basic Metabolic Profon 04-27 Anion gap [Moles/Vol] 12 mmol/L Normal 9-16 [facility] Comment on above: Performed By: #### B MP, CDP #### [facility] [address] [place] [address] Manager Intern: Gal Katz MD BUN/CRE Ratio 18 Normal 9-20 [facility] Comment on above: Performed By: #### B JACQUELIN, CDP #### [facility] [address] [place] [address] Manager Intern: Gal Katz MD Calcium [Mass/Vol] 9.1 mg/dL Normal 8.6-10.4 [facility] Comment on above: Performed By: #### B JACQUELIN, CDP #### [facility] [address] [place] [address] Manager Intern: Gal Katz MD Chloride [Moles/Vol] 102 mmol/L Normal 98-107 [facility] Comment on above: Performed By: #### B JACQUELIN, CDP #### [facility] [address] [place] [address] Manager Intern: Gal Katz MD CO2 [Moles/Vol] 23 mmol/L Normal 20-31 [facility] Comment on above: Performed By: #### B JACQUELIN, CDP #### [facility] [address] [place] [address] Manager Intern: Gal Katz MD Creatinine [Mass/Vol] 0.5 mg/dL Normal 0.50-0.90 [facility] Comment on above: Performed By: #### B JACQUELIN, CDP #### [facility] [address] [place] [address] Manager Intern: Gal Katz MD GFR/1.73 sq M.predicted among non-blacks MDRD (S/P/Bld) [Vol rate/Area] mL/min/{1.73_m2} Normal >60 [facility] Comment on above: Result Comment: These results [...] Performed By: #### B JACQUELIN, CDP #### [facility] [address] [place] [address] Manager Intern: Gal Katz MD Glucose [Mass/Vol] 66 mg/dL Low 74-99 [facility] Comment on above: Performed By: #### B JACQUELIN, CDP #### [facility] [address] [place], [place] [id number] Manager Intern: Gal Katz MD Potassium [Moles/Vol] 3.8 mmol/L Normal 3.7-5.3 [facility] Comment on above: Performed By: #### B JACQUELIN, CDP #### [facility] [address] [place], [place] [id number] Manager Intern: Gal Katz MD Sodium [Moles/Vol] 137 mmol/L Normal 136-145 [facility] Comment on above: Performed By: #### B JACQUELIN, CDP #### [facility] [address] [place], [place] [id number] Manager Intern: Gal Katz MD Urea nitrogen [Mass/Vol] 9 mg/dL Normal 6-20 [facility] Comment on above: Performed By: #### B JACQUELIN, CDP #### [facility] [address] [place], [place] [phone] Manager Intern: Gal Katz MD CBC with Auto Differentialon 04-27-2024 Basophils (Bld) [#/Vol] 0.09 10*3/uL [facility] Basophils/100 WBC (Bld) 1 % 0 - 2 % [facility] Eosinophils (Bld) [#/Vol] 0.17 10*3/uL [facility] Eosinophils/100 WBC (Bld) 2 % 1 - 4 % [facility] Erythrocyte distribution width (RBC) [Ratio] 12.7 % 11.8 - 14.4 % [facility] Hematocrit (Bld) [Volume fraction] 41.1 % 36.3 - 47.1 % [facility] Hemoglobin (Bld) [Mass/Vol] 14.0 g/dL 11.9 - 15.1 g/dL [facility] Immature granulocytes (Bld) [#/Vol] 0.04 10*3/uL [facility] Immature granulocytes/100 WBC (Bld) 0 % 0 [facility] Interpretation and review of laboratory results Abnormal [facility] Lymphocytes/100 WBC (Bld) 20 % Low 24 - 43 % [facility] Lymphocytes/100 WBC (Bld) 2.31 % [facility] MCH (RBC) [Entitic mass] 30.1 pg 25.2 - 33.5 pg [facility] MCHC (RBC) [Mass/Vol] 34.1 g/dL 28.4 - 34.8 g/dL [facility] MCV (RBC) [Entitic vol] 88.4 fL 82.6 - 102.9 fL [facility] Monocytes/100 WBC (Bld) 8 % 3 - 12 % [facility] Monocytes/100 WBC (Bld) 0.90 % [facility] Neutrophils/100 WBC (Bld) 69 % High 36 - 65 % [facility] Nucleated RBC/100 WBC (Bld) [Ratio] 0.0 % 0.0 per 100 WBC [facility] Platelet mean volume (Bld) [Entitic vol] 9.4 fL 8.1 - 13.5 fL [facility] Platelets (Bld) [#/Vol] 327 10*3/uL [facility] RBC (Bld) [#/Vol] 4.65 10*6/uL 3.95 - 5.1 1 m/uL [facility] Segmented neutrophils/100 WBC (Bld) 8.09 % [facility] WBC other (Bld) [#/Vol] 11.6 High [facility] CBC with Diffon 04-27-2024 Abs. Basophil 0.09 k/uL Normal 0.00-0.20 [facility] Comment on above: Performed By: #### B MP, CDP #### [address] [place], [facility]83 Manager Intern: Gal Katz MD Abs.Imm.Granulocyte 0.04 k/uL Normal 0.00-0.30 [facility] Comment on above: Performed By: #### B MP, CDP #### [address] [place], [place] [address] Manager Intern: Gal Katz MD Abs.Neutrophil (Seg) 8.09 k/uL Normal 1.50-8.10 [facility] Comment on above: Performed By: #### B JACQUELIN, CDP #### [address] [place] [place] [address] Manager Intern: Gal Katz MD Basophils/100 WBC (Bld) 1 % Normal 0-2 [facility] Comment on above: Performed By: #### B JACQUELIN, CDP #### [address] [place], [place] [address] Manager Intern: Gal Katz MD Eosinophils (Bld) [#/Vol] 0.17 10*3/uL Normal 0.00-0.44 [facility] Comment on above: Performed By: #### B JACQUELIN, CDP #### [address] [place], [facility]83 Manager Intern: Gal Katz MD Eosinophils/100 WBC (Bld) 2 % Normal 1-4 [facility] Comment on above: Performed By: #### B MP, CDP #### [address] [place], [facility]83 Manager Intern: Gal Katz MD Erythrocyte distribution width (RBC) [Ratio] 12.7 % Normal 11.8-14.4 [facility] Comment on above: Performed By: #### B JACQUELIN, CDP #### [address] [place], [place] [id number] Manager Intern: Gal Katz MD Hematocrit (Bld) [Volume fraction] 41.1 % Normal 36.3-47.1 [facility] Comment on above: Performed By: #### B JACQUELIN, CDP #### [facility] [address] [place] [address] Dr[place], [place] [id number] Manager Intern: Gal Katz MD Hemoglobin (Bld) [Mass/Vol] 14.0 g/dL Normal 11.9-15.1 [facility] Comment on above: Performed By: #### B JACQUELIN, CDP #### [address] [place], [place] [phone] Manager Intern: Gal Katz MD Immature granulocytes/100 WBC (Bld) 0 % Normal 0 [facility] Comment on above: Performed By: #### B JACQUELIN, CDP #### [address] [place], [place] [address]83 Manager Intern: Gal Katz MD Lymphocytes (Bld) [#/Vol] 2.31 10*3/uL Normal 1.10-3.70 [facility] Comment on above: Performed By: #### B JACQUELIN, CDP #### [address] [place], [place] [phone] Manager Intern: Gal Katz MD Lymphocytes/100 WBC (Bld) 20 % Low 24-43 [facility] Comment on above: Performed By: #### B JACQUELIN, CDP #### [facility] [address] [place] [address] [place], [place] [phone] Manager Intern: Gal Katz MD MCH (RBC) [Entitic mass] 30.1 pg Normal 25.2-33.5 [facility] Comment on above: Performed By: #### B MP, CDP #### [facility] [address] [place] [address] Dr[place], [place] [phone] Manager Intern: Gal Katz MD MCHC (RBC) [Mass/Vol] 34.1 g/dL Normal 28.4-34.8 [facility] Comment on above: Performed By: #### B JACQUELIN, CDP #### [facility] [address] [place] [address] Manager Intern: Gal Katz MD MCV (RBC) [Entitic vol] 88.4 fL Normal 82.6-102.9 [facility] Comment on above: Performed By: #### B JACQUELIN, CDP #### [address] [place], [place] [phone] Manager Intern: Gal Katz MD Monocytes (Bld) [#/Vol] 0.90 10*3/uL Normal 0.10-1.20 [facility] Comment on above: Performed By: #### B JACQUELIN, CDP #### [address] [place], [facility]83 Manager Intern: Gal Katz MD Monocytes/100 WBC (Bld) 8 % Normal 3-12 [facility] Comment on above: Performed By: #### B JACQUELIN, CDP #### [address] [place], [facility]83 Manager Intern: Gal Katz MD Neutrophil (Seg) 69 % High 36-65 [facility] Comment on above: Performed By: #### B JACQUELIN, CDP #### [address] [place], [place] [phone] Manager Intern: Gal Katz MD NRBC Automated 0.0 per 100 WBC Normal 0.0 [facility] Comment on above: Performed By: #### B JACQUELIN, CDP #### [address] [place] [address] Manager Intern: Gal Katz MD Platelet mean volume (Bld) [Entitic vol] 9.4 fL Normal 8.1-13.5 [facility] Comment on above: Performed By: #### B JACQUELIN, CDP #### [facility] [address] [place], [place] [phone] Manager Intern: Gal Katz MD Platelets (Bld) [#/Vol] 327 10*3/uL Normal 138-453 [facility] Comment on above: Performed By: #### B MP, CDP #### [facility] [address] [place] [address] Manager Intern: Gal Katz MD RBC (Bld) [#/Vol] 4.65 10*6/uL Normal 3.95-5.11 [facility] Comment on above: Performed By: #### B MP, CDP #### [facility] [address] [place] [address] [place], [place] [id number] Manager Intern: Gal Katz MD WBC (Bld) [#/Vol] 11.6 10*3/uL High 3.5-11.3 [facility] Comment on above: Performed By: #### B MP, CDP #### [facility] [address] [place] [address] [place], [place] [phone] Manager Intern: Gal Katz MD HCG, Quanton 04-27-2024 HCG, Quant 50750.0 mIU/mL [facility] 0-7 [facility] Comment on above: Result Comment: Non-preg premeno <=5 Postmeno <=8 Male <=3 If HCG results do not concur with clinical observations, additional testing to confirm results is recommended. Performed By: #### B HCG #### [facility] [address] [place], [place] [id number] Manager Intern: Gal Katz MD HCG, Quantitative, on 04-27-2024 [place] [address].0 m[IU]/mL [facility] Comment on above: Non-preg premeno <=5 Postmeno <=8 Male <=3 If HCG results do not concur with clinical observations, additional testing to confirm results is recommended. Interpretation and review of laboratory results Abnormal [facility] TYPE AND SCREENon 04-27-2024 ABO and Rh group Nom (Bld) Blood group A Rh(D) positive [facility] Arm Band Number [id number] Yan [facility] Blood Bank Sample Expiration 04/30/2024,2359 [facility] Blood group antibodies identified Nom Negative [facility] Type + Screenon 04-27-2024 Type + Screen Sample Expiration 04/30/2024,2359 Arm Band Number [id number] ABO/Rh(D) A POSITIVE Antibody Screen NEGATIVE Normal [facility] Comment on above: Performed By: #### T YS #### [facility] [address] [place] [address] Manager Intern: Gal Katz MD US OB LESS THAN [...] MD 04/27/24 Final result Normal [facility] Single viable intrauterine with an estimated gestational age of 7 weeks 2 days and an estimated date of delivery of 12/12/2024 with no gross abnormality seen. Normal size right ovary with normal blood flow documented to the ovary and no ovarian masses seen. Nonvisualization of the left ovary which is probably obscured due to overlying bowel gas No adnexal mass or free fluid. [facility] EXAMINATION: FIRST TRIMESTER OBSTETRIC [...] adnexal mass or free fluid is seen. [facility] Onur Mack MD - [...] gas No adnexal mass or free fluid. [facility] Radiology Study observation (narrative) [facility] US OB LESS THAN 14 WEEKS SIN GLE OR FIRST GESTATION W DOPPLEROrdered By: Onur Mack on 04-27-2024 [facility] Work Phone: Urinalysis w/ Microon 2024 Bacteria 1+ Abnormal NONE [facility] Comment on above: Performed By: #### U AMIC #### [facility] [address] [place] [address] Manager Intern: Gal Katz MD Bilirubin, SemiQt,Ur Negative Normal NEG [facility] Comment on above: Performed By: #### U AMIC #### [facility] [address] [place] [address] Manager Intern: Gal Katz MD Blood, Urine 1+ Abnormal NEG [facility] Comment on above: Performed By: #### U AMIC #### [facility] [address] [place] [address] Manager Intern: Gal Katz MD Clarity (U) SLIGHTLY CLOUDY Abnormal CLEAR [facility] Comment on above: Performed By: #### U AMIC #### [facility] [address] [place] [address] Manager Intern: Gal Katz MD Color (U) Yellow Normal YEL [facility] Comment on above: Performed By: #### U AMIC #### [facility] [address] [place], [place] [id number] Manager Intern: Gal Katz MD Epithelial cells LM Ql (Urine sed) 20 TO 50 Normal 0-25 [facility] Comment on above: Performed By: #### U AMIC #### [facility] [address] [place], [place] [id number] Manager Intern: Gal Katz MD Glucose Ql (U) Negative Normal NEG [facility] in Hospital Comment on above: Performed By: #### U AMIC #### [facility] [address] [place] [address] Manager Intern: Gal Katz MD Ketones Ql (U) Negative Normal NEG [facility] in Hospital Comment on above: Performed By: #### U AMIC #### [facility] [address] [place], [place] [id number] Manager Intern: Gal Katz MD Leukocyte esterase Test strip Ql (U) Negative Normal NEG [facility] Comment on above: Performed By: #### U AMIC #### [facility] [address] [place], [place] [id number] Manager Intern: Gal Katz MD Nitrite,Ur Negative Normal [facility] Comment on above: Performed By: #### U AMIC #### [facility] [address] [place], [place] [id number] Manager Intern: Gal Katz MD PH,Ur 6.0 Normal 5.0-9.0 [facility] Comment on above: Performed By: #### U AMIC #### [facility] [address] [place] [address] Manager Intern: Gal Katz MD Protein Ql (U) Negative Normal NEG [facility] in Hospital Comment on above: Performed By: #### U AMIC #### [facility] [address] [place], [place] [id number] Manager Intern: Gal Katz MD Spec. Olyphant,Ur 1.025 High 1.010-1.020 [facility] Comment on above: Performed By: #### U AMIC #### [facility] [address] [place], [place] [id number] Manager Intern: Gal Katz MD Urine RBC's 2 TO 5 Normal 0-2 [facility] Comment on above: Performed By: #### U AMIC #### [facility] [address] [place], [place] [id number] Manager Intern: Gal Katz MD Urine WBC's 2 TO 5 Normal 0-5 [facility] Comment on above: Performed By: #### U AMIC #### [facility] [address] [place], [facility] Manager Intern: Gal Katz MD Urobilinogen,Ur Normal Normal 0.0-1.0 [facility] Comment on above: Performed By: #### U AMIC #### [facility] [address] [place] [id number] Manager Intern: Gal Katz MD Urinalysis with Microscopico n 04-27-2024 Bacteria LM Ql (Urine sed) 1+ Abnormal None [facility] Bilirubin Ql (U) Negative NEGATIVE [facility] Clarity (U) SLIGHTLY CLOUDY Abnormal Clear [facility] Color (U) Yellow Yellow [facility] Epithelial cells LM.HPF (Urine sed) [#/Area] 20 TO 50 [facility] Glucose Test strip (U) [Mass/Vol] Negative NEGATIVE mg/dL [facility] Hemoglobin Auto test strip Ql (U) 1+ Abnormal NEGATIVE [facility] Interpretation and review of laboratory results Abnormal [facility] Ketones (U) [Mass/Vol] Negative NEGAT ROSS mg/dL [facility] Leukocyte esterase Test strip Ql (U) Negative NEGATIVE [facility] Nitrite Ql (U) Negative NEGATIVE [facility] pH (U) 6.0 [pH] 5.0 - 9.0 [facility] Protein (U) [Mass/Vol] Negative NEGAT ROSS mg/dL [facility] RBC LM.HPF (Urine sed) [#/Area] 2 TO 5 [facility] Specific gravity (U) [Rel density] 1.025 High 1.010 - 1.020 [facility] Urobilinogen Qn (U) Normal 0.0 - 1. 0 EU/dL [facility] WBC LM.HPF (Urine sed) [#/Area] 2 TO 5 [facility] POCT , urineon 05-0 Beta HCG ( test) Ql (U) Negative [facility] Interpretation and review of laboratory results Normal [facility] Vital Signs Date Time Vital Sign Value Performing Clinician Facility 11-28-2024 11:20-0400 Body height 162.6 cm Edil Snow MD Work Phone: [facility] 11-28-2024 11:20-0400 Body mass index (BMI) [Ratio] 37.8 kg/m2 Edil Snow MD Work Phone: [facility] 11-28-2024 11:20-0400 Body weight 99.88 kg Edil Snow MD Work Phone: [facility] 11-28-2024 11:20-0400 Diastolic blood pressure 84 mm[Hg] Edil Snow MD Work Phone: [facility] 11-28-2024 11:20-0400 Heart rate 82 /min Edil Snow MD Work Phone: [facility] 11-28-2024 11:20-0400 Systolic blood pressure 122 mm[Hg] Edil Snow MD Work Phone: [facility] 11-24-2024 14:34-0400 Body mass index (BMI) [Ratio] 38.04 kg/m2 Giacomo Horne MD Work Phone: [facility] 11-24-2024 14:34-0400 Body weight 100.56 kg Giacomo Horne MD Work Phone: [facility] 11-24-2024 14:34-0400 Diastolic blood pressure 82 mm[Hg] Giacomo Horne MD Work Phone: [facility] 11-24-2024 14:34-0400 Systolic blood pressure 130 mm[Hg] Giacomo Horne MD Work Phone: [facility] 11-17-2024 14:24-0400 Body mass index (BMI) [Ratio] 37.62 kg/m2 Giacomo Horne MD Work Phone: [facility] 11-17-2024 14:24-0400 Body weight 99.47 kg Giacomo Horne MD Work Phone: [facility] 11-17-2024 14:24-0400 Diastolic blood pressure 70 mm[Hg] Giacomo Horne MD Work Phone: [facility] 11-17-2024 14:24-0400 Systolic blood pressure 126 mm[Hg] Giacomo Horne MD Work Phone: [facility] 11-03-2024 13:18-0400 Body mass index (BMI) [Ratio] 36.68 kg/m2 Tiffany Ornelas MD Work Phone: [facility] 11-03-2024 13:18-0400 Body weight 96.98 kg Tiffany Ornelas MD Work Phone: [facility] 10-30-2024 11:15-0400 Body height 162.6 cm Angela Gardner MD Work Phone: [facility] 10-30-2024 11:15-0400 Body mass index (BMI) [Ratio] 37.13 kg/m2 Angela Gardner MD Work Phone: [facility] 10-30-2024 11:15-0400 Body weight 98.16 kg Angela Gardner MD Work Phone: [facility] 10-30-2024 11:15-0400 Diastolic blood pressure 82 mm[Hg] Angela Gardner MD Work Phone: [facility] 10-30-2024 11:15-0400 Heart rate 91 /min Angela Gardner MD Work Phone: [facility] 10-30-2024 11:15-0400 Systolic blood pressure 122 mm[Hg] Angela Gardner MD Work Phone: [facility] 10-23-2024 14:04-0400 Diastolic blood pressure 64 mm[Hg] Tt Nst1 [facility] 10-23-2024 14:04-0400 Heart rate 88 /min [address] 10-23-2024 14:04-0400 Systolic blood pressure 132 mm[Hg] Tt[address] 10-19-2024 14:01-0400 Body mass index (BMI) [Ratio] 36.03 kg/m2 Rain Lafyatis DO Work Phone: [facility] 10-19-2024 14:01-0400 Body weight 95.25 kg Rain Lafyatis DO Work Phone: [facility] 10-19-2024 14:01-0400 Diastolic blood pressure 68 mm[Hg] Rain Lafyatis DO Work Phone: [facility] 10-19-2024 14:01-0400 Systolic blood pressure 122 mm[Hg] Rain Lafyatis DO Work Phone: [facility] 10-17-2024 14:37-0400 Body mass index (BMI) [Ratio] 36.05 kg/m2 Jocy YOUNG Work Phone: [facility] 10-17-2024 14:37-0400 Body weight 95.25 kg Jocy YOUNG Work Phone: [facility] 10-17-2024 14:37-0400 Diastolic blood pressure 78 mm[Hg] Jocy Flori YOUNG Work Phone: [facility] 10-17-2024 14:37-0400 Systolic blood pressure 124 mm[Hg] Jocy Flori YOUNG Work Phone: [facility] 10-17-2024 12:13-0400 Body height 162.56 cm Armen Furlong DO Work Phone: [facility] 10-17-2024 12:13-0400 Body mass index (BMI) [Ratio] 35.9 kg/m2 Armen Furlong DO Work Phone: [facility] 10-17-2024 12:13-0400 Body temperature 98.9 [degF] Armen Furlong DO Work Phone: [facility] 10-17-2024 12:13-0400 Body weight 94.97 kg Armen Furlong DO Work Phone: [facility] 10-17-2024 12:13-0400 Diastolic blood pressure 82 mm[Hg] Armen Furlong DO Work Phone: [facility] 10-17-2024 12:13-0400 Heart rate 96 /min Armen Furlong DO Work Phone: [facility] 10-17-2024 12:13-0400 Respiratory rate 19 /min Armen Furlong DO Work Phone: [facility] 10-17-2024 12:13-0400 SaO2% (BldA) [Mass fraction] 98 % Armen Furlong DO Work Phone: [facility] 10-17-2024 12:13-0400 Systolic blood pressure 129 mm[Hg] Armen Furlong DO Work Phone: [facility] 10-03-2024 09:04-0400 Body height 162.6 cm Curtis Jeannine DO Work Phone: [facility] 10-03-2024 09:00-0400 Body mass index (BMI) [Ratio] 34.84 kg/m2 Curtis Jeannine DO Work Phone: [facility] 10-03-2024 09:00-0400 Body weight 92.08 kg Curtis Jeannine DO Work Phone: [facility] 10-03-2024 09:00-0400 Diastolic blood pressure 74 mm[Hg] Curtis Jeannine DO Work Phone: [facility] 10-03-2024 09:00-0400 Systolic blood pressure 122 mm[Hg] Curtis Jeannine DO Work Phone: [facility] 09-29-2024 16:29-0400 Diastolic blood pressure 72 mm[Hg] Edil Snow MD Work Phone: [facility] 09-29-2024 16:29-0400 Heart rate 83 /min Edil Snow MD Work Phone: [facility] 09-29-2024 16:29-0400 Systolic blood pressure 125 mm[Hg] Edil Snow MD Work Phone: [facility] 09-10-2024 23:35-0400 Diastolic blood pressure 73 mm[Hg] Victorino D'Abreau DO [facility] 09-10-2024 23:35-0400 Heart rate 75 /min Victorino D'Abreau DO Work Phone: [facility] [employer] 09-10-2024 23:35-0400 Systolic blood pressure 127 mm[Hg] Victorino D'Abreau DO Work Phone: [facility] [employer] 09-10-2024 22:22-0400 Body temperature 98.1 [degF] Victorino D'Abreau DO Work Phone: [facility] [employer] 09-10-2024 22:22-0400 Respiratory rate 16 /min Victorino D'Abreau DO Work Phone: [facility] 09-10-2024 22:22-0400 SaO2% (BldA) [Mass fraction] 98 % Victorino Gallowayeau DO Work Phone: [facility] 08-30-2024 10:38-0400 Body weight 88.91 kg Jocy YOUNG Work Phone: [facility] 08-30-2024 10:38-0400 Diastolic blood pressure 74 mm[Hg] Jocy YOUNG Work Phone: [facility] 08-30-2024 10:38-0400 Systolic blood pressure 130 mm[Hg] Jocy YOUNG Work Phone: [facility] 08-14-2024 10:57-0400 Body weight 87.91 kg Curtis Jeannine DO Work Phone: [facility] 08-14-2024 10:57-0400 Diastolic blood pressure 70 mm[Hg] Curtis Jeannine DO Work Phone: [facility] 08-14-2024 10:57-0400 Systolic blood pressure 116 mm[Hg] Curtis Jeannine DO Work Phone: [facility] 08-01-2024 13:31-0400 Body weight 85.19 kg Curtis Jeannine DO Work Phone: [facility] 08-01-2024 13:31-0400 Diastolic blood pressure 70 mm[Hg] Curtis Jeannine DO Work Phone: [facility] 08-01-2024 13:31-0400 Systolic blood pressure 120 mm[Hg] Curtis Jeannine DO Work Phone: [facility] 07-28-2024 09:19-0400 Body height 162.6 cm Lyndsey Burns MD Work Phone: [facility] 07-28-2024 09:19-0400 Body mass index (BMI) [Ratio] 32.63 kg/m2 Lyndsey Burns MD Work Phone: [facility] 07-28-2024 09:19-0400 Body weight 86.27 kg Lyndsey Burns MD Work Phone: [facility] 07-28-2024 09:19-0400 Diastolic blood pressure 72 mm[Hg] Lyndsey Burns MD Work Phone: [facility] 07-28-2024 09:19-0400 Heart rate 84 /min Lyndsey Burns MD Work Phone: [facility] 07-28-2024 09:19-0400 Systolic blood pressure 115 mm[Hg] Lyndsey Burns MD Work Phone: [facility] 07-06-2024 09:09-0400 Body weight 84.73 kg Jocy YOUNG Work Phone: [facility] 07-06-2024 09:09-0400 Diastolic blood pressure 72 mm[Hg] Jocy YOUNG Work Phone: [facility] 07-06-2024 09:09-0400 Systolic blood pressure 120 mm[Hg] Jocy YOUNG Work Phone: [facility] 06-08-2024 09:41-0500 Body weight 83.83 kg Curtis Jeannine DO Work Phone: [facility] 06-08-2024 09:41-0500 Diastolic blood pressure 70 mm[Hg] Curtis Jeannine DO Work Phone: [facility] 06-08-2024 09:41-0500 Systolic blood pressure 120 mm[Hg] Curtis Jeannine DO Work Phone: [facility] 05-09-2024 14:22-0500 Body weight 86.09 kg Curtis Jeannine DO Work Phone: [facility] 05-09-2024 14:22-0500 Diastolic blood pressure 72 mm[Hg] Curtis Jeannine DO Work Phone: [facility] 02-04-2025 14:22-0500 Systolic blood pressure 118 mm[Hg] Curtis Paez DO Work Phone: [facility] 05-05-2024 10:32-0500 Body weight 83.52 kg Noms Nurse [facility] 05-05-2024 10:32-0500 Diastolic blood pressure 78 mm[Hg] [facility] Nurse [facility] 05-05-2024 10:32-0500 Systolic blood pressure 120 mm[Hg] [facility] Nurse [facility] 04-27-2024 20:58-0500 SaO2% (BldA) [Mass fraction] 98 % Zully Vallejo MD Work Phone: [employer] 04-27-2024 17:53-0500 Body height 162.6 cm Zully Vallejo MD Work Phone: [employer] 04-27-2024 17:53-0500 Body mass index (BMI) [Ratio] 29.18 kg/m2 Zully Vallejo MD Work Phone: [employer] 04-27-2024 17:53-0500 Body temperature 98.8 [degF] Zully Vallejo MD Work Phone: [employer] 04-27-2024 17:53-0500 Body weight 77.11 kg Zully Vallejo MD Work Phone: [employer] 04-27-2024 17:53-0500 Diastolic blood pressure 93 mm[Hg] Zully Vallejo MD Work Phone: [employer] 04-27-2024 17:53-0500 Heart rate 90 /min Zully Vallejo MD Work Phone: [employer] 04-27-2024 17:53-0500 Respiratory rate 20 /min Zully Vallejo MD Work Phone: [employer] 04-27-2024 17:53-0500 Systolic blood pressure 150 mm[Hg] Zully Vallejo MD Work Phone: [employer] 01-27-2024 09:54-0400 Body height 162.6 cm Armen Furlong DO [facility] 01-27-2024 09:54-0400 Body mass index (BMI) [Ratio] 28.15 kg/m2 Armen Furlong DO Work Phone: [facility] 01-27-2024 09:54-0400 Body temperature 97.7 [degF] Armen Furlong DO Work Phone: [facility] 01-27-2024 09:54-0400 Body weight 74.39 kg Armen Furlong DO [facility] 01-27-2024 09:54-0400 Diastolic blood pressure 72 mm[Hg] Armen Furlong DO Work Phone: [facility] 01-27-2024 09:54-0400 Heart rate 89 /min Armen Furlong DO Work Phone: [facility] [employer] [facility] 01-27-2024 09:54-0400 Respiratory rate 18 /min Armen Furlong DO Work Phone: [facility] 01-27-2024 09:54-0400 SaO2% (BldA) [Mass fraction] 99 % Armen Furlong DO Work Phone: [facility] 01-27-2024 09:54-0400 Systolic blood pressure 118 mm[Hg] Armen Furlong DO Work Phone: [facility] [employer] [facility] 10-27-2023 10:26-0400 Body height 162.6 cm Armen Furlong DO Work Phone: [facility] 10-27-2023 10:26-0400 Body mass index (BMI) [Ratio] 29.94 kg/m2 Armen Furlong DO Work Phone: [facility] [employer] [facility] 10-27-2023 10:26-0400 Body temperature 97.81 [degF] Armen Furlong DO Work Phone: [facility] 10-27-2023 10:26-0400 Body weight 79.11 kg Armen Furlong DO Work Phone: [facility] 10-27-2023 10:26-0400 Diastolic blood pressure 60 mm[Hg] Armen Furlong DO Work Phone: [facility] 10-27-2023 10:26-0400 Heart rate 71 /min Armen Furlong DO Work Phone: [facility] 10-27-2023 10:26-0400 SaO2% (BldA) [Mass fraction] 99 % Armen Furlong DO Work Phone: [facility] 10-27-2023 10:26-0400 Systolic blood pressure 100 mm[Hg] Armen Furlong DO Work Phone: [facility] 09-27-2023 10:05-0400 Body height 162.6 cm Armen Furlong DO Work Phone: [facility] 09-27-2023 10:05-0400 Body mass index (BMI) [Ratio] 30.59 kg/m2 Armen Furlong DO Work Phone: [facility] 09-27-2023 10:05-0400 Body temperature 97.81 [degF] Armen Furlong DO Work Phone: [facility] 09-27-2023 10:05-0400 Body weight 80.83 kg Armen Furlong DO Work Phone: [facility] 09-27-2023 10:05-0400 Diastolic blood pressure 62 mm[Hg] Armen Furlong DO Work Phone: [facility] 09-27-2023 10:05-0400 Heart rate 81 /min Armen Furlong DO Work Phone: [facility] 09-27-2023 10:05-0400 SaO2% (BldA) [Mass fraction] 99 % Armen Furlong DO Work Phone: [facility] 09-27-2023 10:05-0400 Systolic blood pressure 100 mm[Hg] Armen Furlong DO Work Phone: [facility] 09-01-2023 11:00-0400 Body height 162.6 cm [facility] 09-01-2023 11:00-0400 Body mass index (BMI) [Ratio] 31.58 kg/m2 [facility] 09-01-2023 11:00-0400 Body weight 83.46 kg Pm 1 [facility] 08-25-2023 09:33-0400 Body height 162.6 cm Armen Furlong DO Work Phone: [facility] 08-25-2023 09:33-0400 Body mass index (BMI) [Ratio] 31.72 kg/m2 Ramen Furlong DO Work Phone: [facility] 08-25-2023 09:33-0400 Body temperature 98.71 [degF] Armen Furlong DO Work Phone: [facility] 08-25-2023 09:33-0400 Body weight 83.83 kg Armen Furlong DO Work Phone: [facility] 08-25-2023 09:33-0400 Diastolic blood pressure 62 mm[Hg] Armen Furlong DO Work Phone: [facility] 08-25-2023 09:33-0400 Heart rate 89 /min Armen Furlong DO Work Phone: [facility] 08-25-2023 09:33-0400 Respiratory rate 18 /min Armen Furlong DO Work Phone: [facility] 08-25-2023 09:33-0400 SaO2% (BldA) [Mass fraction] 98 % Armen Furlong DO Work Phone: [facility] 08-25-2023 09:33-0400 Systolic blood pressure 98 mm[Hg] Armen Street DO Work Phone: [facility] 08-10-2023 09:46-0400 Body height 162.6 cm Claire Robertson MD Work Phone: [facility] 08-10-2023 09:46-0400 Body mass index (BMI) [Ratio] 33.3 kg/m2 Claire Robertson MD Work Phone: [facility] 08-10-2023 09:46-0400 Body weight 88 kg Claire Robertson MD Work Phone: [facility] 08-10-2023 09:46-0400 Diastolic blood pressure 70 mm[Hg] Claire Robertson MD Work Phone: [facility] 08-10-2023 09:46-0400 Systolic blood pressure 128 mm[Hg] Claire Robertson MD Work Phone: [facility] Encounters Encounter Date Encounter Type Care Provider Facility Start: 11-28-2024 End: 11-28-2024 Office outpatient visit 25 minutes Edil Snow MD Work Phone: [facility] Comment on above: 38 weeks gestation o f (Primary Dx); Cystic fibrosis carrier, antepartum; Abnormal genetic test during ; Obesity affecting in third trimester, unspecified obesity type Start: 11-28-2024 End: 11-28-2024 Orders Only Juhi Reza RN [facility] Comment on above: Abnormal ultrasonic finding on screening of mother, antepartum (Primary Dx); Supervision of high risk in third trimester; Cystic fibrosis carrier, antepartum Start: 11-24-2024 End: 11-24-2024 Patient encounter procedure Giacomo Horne MD Work Phone: [facility] Comment on above: GA: 37w3d Start: 11-24-2024 End: 11-24-2024 ambulatory GIACOMO HORNE [facility] Start: 11-23-2024 End: 11-23-2024 Clinisync Result Encounter Curtis Jeannine DO Work Phone: [facility] External Department Unsolicited Start: 11-23-2024 End: 11-23-2024 Clinisync Result Encounter Curtis Jeannine DO Work Phone: [facility] External [facility] Unsolicited Start: 11-21-2024 End: 11-21-2024 Orders Only Laura Strauss RDMS [facility] Comment on above: Abnormal ultrasonic finding on screening of mother, antepartum (Primary Dx) Start: 11-17-2024 End: 11-17-2024 Patient encounter procedure Giacomo Horne MD Work Phone: [facility] Comment on above: GA: 36w3d Start: 11-17-2024 End: 11-17-2024 ambulatory GIACOMO HORNE [facility] Start: 11-16-2024 End: 11-17-2024 Clinisync Result Encounter Curtis Jeannine DO Work Phone: [facility] External Department Unsolicited Start: 11-16-2024 End: 11-17-2024 Clinisync Result Encounter Curtis Jeannine DO Work Phone: [facility] External Department Unsolicited Start: 11-14-2024 End: 11-14-2024 [facility] Start: 11-09-2024 End: 11-09-2024 Clinisync Result Encounter Curtis Jeannine DO Work Phone: [facility] External Department Unsolicited Start: 11-09-2024 End: 11-09-2024 Clinisync Result Encounter Curtis Jeannine DO Work Phone: [facility] External Department Unsolicited Start: 11-07-2024 End: 11-07-2024 ambulatory ANGELA GARDNER [facility] Start: 11-03-2024 End: 11-03-2024 ambulatory TIFFANY ORNELAS [facility] Start: 11-03-2024 End: 11-03-2024 Subsequent care visit Tiffany Ornelas MD Work Phone: [facility] Comment on above: GA: 34w3d [...] [facility] Comment on above: Cystic fibrosis fletchre ier, antepartum (Primary Dx); Maternal care for [...] [facility] Start: 10-23-2024 End: 10-23-2024 ambulatory Tt Mfm Nst1 [facility] [...] 10-19-2024 ambulatory Rain Iverson DO Work Phone: [facility] Comment on above: GA: 32w2d Start: 10-17-2024 End: 10-17-2024 flow sheet Jocy YOUNG Work Phone: [facility] Comment on above: Third trimester preg melissa (HHS-HCC); 32 weeks gestation of (HHS-HCC); H/O LEEP; Cystic fibrosis carrier, antepartum (HHS-HCC); HSV infection Start: 10-17-2024 End: 10-17-2024 Bamboo flowsheet Jocy YOUNG Work Phone: [facility] Start: 10-17-2024 End: 10-17-2024 Bamboo flowsheet Jocy YOUNG Work Phone: [facility] Start: 10-17-2024 End: 10-17-2024 ambulatory Armen Masoodandra DO Work Phone: [facility] Work Phone: Start: 10-17-2024 End: 10-17-2024 Patient encounter procedure Esther Bunch DIRECTOR OF TRAINING -[facility] Work Phone: Start: 10-13-2024 End: 10-13-2024 Orders Only Miriam Joseph RN [facility] Comment on above: Abnormal genetic jono t during (Primary Dx); Maternal care for other (suspected) abnormality and damage, gastrointestinal anomalies, not applicable or unspecified; Cystic fibrosis carrier Start: 10-12-2024 End: 10-12-2024 ambulatory [facility] Start: 10-12-2024 End: 10-13-2024 Clinisync Result Encounter Curtis Busbyo DO Work Phone: [facility] External Department Unsolicited Start: 10-12-2024 End: 10-13-2024 Clinisync Result Encounter Curtis Busbyo DO Work Phone: [facility] External [facility] Unsolicited Start: 10-10-2024 End: 10-10-2024 Chart abstracting Lyric Sánchez RN [facility] Start: 10-05-2024 End: 10-05-2024 ambulatory [facility] Start: 10-04-2024 End: 10-04-2024 Clinisync Result [...] damage, gastrointestinal anomalies, not applicable or unspecified ([facility]) Start: 09-29-2024 End: 09-29-2024 ambulatory EDIL SNOW [facility] Start: 09-29-2024 End: 09-29-2024 Office outpatient visit 25 minutes Edil Snow MD Work Phone: [facility] Comment on above: 29 weeks gestation o f (Primary Dx); Cystic fibrosis carrier; Maternal care for other (suspected) abnormality and damage, gastrointestinal anomalies, not applicable or unspecified Start: 09-29-2024 End: 09-29-2024 ambulatory LYNDSEY [facility] Start: 09-25-2024 End: 09-25-2024 Clinisync Result Encounter Cutris Jeannine DO Work Phone: [facility] External [facility] [...] above: Anxiety, generalized (Primary Dx); Second trimester ([facility]); 27 weeks gestation of ([facility]); Cystic fibrosis carrier, antepartum ([facility]) Start: 09-18-2024 End: 09-18-2024 Bamboo flowsheet Curtis Jeannine DO Work Phone: [facility] Start: 09-18-2024 End: 09-18-2024 Bamboo flowsheet Curtis Busbyo DO Work Phone: [facility] Start: 09-15-2024 End: 09-15-2024 Telephone encounter Miriam Joseph RN Maternal- Medicine at [facility] Start: 09-10-2024 End: 09-11-2024 ambulatory [facility] Start: 09-10-2024 End: 09-11-2024 Subsequent hospital visit by physician Victorino Christie DO Work Phone: [facility] Start: 09-10-2024 Emergency department patient visit ARMEN [facility] Start: 09-07-2024 End: 09-07-2024 Office outpatient new 45 minutes Rashida Alvarez MD Work Phone: [facility] Comment on above: Cystic fibrosis fletcher [...] 08-30-2024 End: 08-30-2024 Clinisync Result Encounter Curtis Busbyo DO Work Phone: [facility] External Department Unsolicited Start: 08-30-2024 End: 08-30-2024 flow sheet Jocy YOUNG Work Phone: [facility] Comment on above: Second trimester pre gnancy; 25 weeks gestation of Start: 08-25-2024 End: 08-25-2024 ambulatory [facility] Start: 08-18-2024 End: 08-18-2024 Orders Only Barbra Samuel RN Maternal- Medicine at [facility] Start: 08-17-2024 End: 08-18-2024 Telephone encounter Rachel Rodriguez [facility] Work Phone: [facility]- Medicine at [place] [...] 07-12-2024 End: 07-12-2024 Telephone [address] Rachel Rodriguez [facility] Work Phone: Maternal- Medicine at [facility] Start: 07-11-2024 End: 07-11-2024 Bamboo flowsheet Emi Bronson [facility] Work Phone: [facility] Start: 07-11-2024 End: 07-11-2024 Bamboo flowsheet Emi Arpit Jerryro [facility] Work Phone: [facility] Start: 07-11-2024 End: 07-11-2024 Clinical Support Emi Bronson [facility] Work Phone: [facility] Comment on above: Moderate episode of recurrent major depressive disorder (CMS/HCC); ALICIA (generalized anxiety disorder) (CMS/HCC) Start: 07-06-2024 End: 07-06-2024 Bamboo flowsheet Jocy YOUNG Work Phone: [facility] Start: 07-06-2024 End: 07-10-2024 Bamboo flowsheet Jocy YOUNG Work Phone: [facility] Start: 07-06-2024 End: 07-10-2024 Clinisync Result Encounter Jocy YOUNG Work Phone: [facility] External Department Unsolicited Start: 07-06-2024 End: 07-07-2024 External Result Encounter Jocy YOUNG Work Phone: [facility] External Department Unsolicited Start: 07-06-2024 End: 07-06-2024 Patient encounter procedure Jocy YOUNG Work Phone: [facility] Healthcare Start: 07-06-2024 End: 07-06-2024 Periodic preventive med est patient 18-39 yrs Jocy YOUNG Work Phone: [facility] OB Comment on above: 17 [...] [facility] External Department Unsolicited Start: 06-20-2024 End: 06-20-2024 Telephone encounter Lara Lovelace Maternal- Medicine at [facility] Start: 06-20-2024 End: 06-20-2024 Telemedicine consultation with patient Rachel Rodriguez [facility] Work Phone: Maternal- Medicine at [facility] Comment on above: Cystic fibrosis fletcher ier (Primary Dx); Abnormal genetic test during ; Family history of developmental delay; Family history of spina bifida Start: 06-20-2024 End: 06-20-2024 ambulatory CURT[facility] R [facility] Start: 06-16-2024 End: 06-16-2024 Chart abstracting Scanning Provider External Maternal- Medicine at [facility] Start: 06-08-2024 End: 06-08-2024 Bamboo flowsheet Curtis Jeannine DO Work Phone: [facility] Start: 06-08-2024 End: 06-08-2024 Bamboo flowsheet Curtis Jeannine DO Work Phone: [facility] Start: 06-08-2024 End: 06-08-2024 flow sheet Curtis Jeannine DO Work Phone: [facility] Comment on above: 13 weeks gestation o f ; Second trimester ; History of loop electrosurgical excision procedure (LEEP) of cervix affecting , antepartum Start: 05-24-2024 End: 05-24-2024 Clinical Support Emi Bronson [facility] Work Phone: [facility] Comment on above: Moderate episode of [...] flow sheet Curtis Jeannine DO Work Phone: [facility] Comment on above: Missed menses; 9 weeks gestation of ; H/O LEEP Start: 05-05-2024 End: 05-05-2024 Office outpatient visit 5 minutes [facility] Jeannine Nurse [facility] OB Comment on above: GA: 8w3d Start: 05-03-2024 End: 05-03-2024 Telephone encounter Armen G Princess DO Work Phone: [facility] Start: 05-02-2024 End: 05-02-2024 Bamboo flowsheet Emi Bronson [facility] Work Phone: [facility] Start: 05-02-2024 End: 05-02-2024 Bamboo flowsheet Emi Bronson [facility] Work Phone: [facility] Start: 05-02-2024 End: 05-02-2024 Clinical Support Emi Bronson [facility] Work Phone: [facility] Comment on above: Moderate episode of recurrent major depressive disorder (CMS/HCC); ALICIA (generalized anxiety disorder) (CMS/HCC) Start: 04-27-2024 End: 04-27-2024 Emergency department patient visit Zully Vallejo MD Work Phone: [facility] Emergency Department Comment on above: Abdominal cramping ( Primary Dx); Arm contusion, right, initial encounter Start: 04-18-2024 End: 04-18-2024 Orders Only Aicha Richard LPN [facility] Comment on above: Positive t est (Primary Dx) Start: 01-27-2024 End: 01-27-2024 Office outpatient visit 15 minutes Armen G Furlong DO Work Phone: [facility] Comment on above: Current episode of m ajor depressive disorder without prior episode, unspecified depression episode severity (Primary Dx); Overweight Start: 01-27-2024 End: 01-27-2024 ambulatory [facility] Start: 01-21-2024 End: 01-21-[address] DO Work Phone: [facility] Start: 12-13-2023 End: 12-13-2023 Bamboo Nusirtheet Emi Jerryro LPCC Work Phone: [facility] Start: 12-13-2023 End: 12-13-2023 Bamboo Nusirtheet Emi Jerryro LPCC Work Phone: [facility] Start: 12-13-2023 End: 12-13-2023 Clinical Support Emi Bronson LPCC Work Phone: [facility] Comment on above: Moderate episode of recurrent major depressive disorder (HCC) (CMS/HCC); ALICIA (generalized anxiety disorder) ([facility]/HCC) Start: 11-29-2023 End: 11-29-2023 Bamboo Nusirtheet Emi Jerryro LPCC Work Phone: [facility] Start: 11-29-2023 End: 11-29-2023 Bamboo flowsheet Emi Munson Aiyana LPCC Work Phone: [facility] Start: 11-29-2023 End: 11-29-2023 Clinical Support Emi Bronson LPCC Work Phone: [facility] Comment on above: Moderate episode of recurrent major depressive disorder (HCC) (CMS/HCC); ALICIA (generalized anxiety disorder) (CMS/HCC) Start: 10-27-2023 End: 10-27-2023 ambulatory [facility] Start: 10-27-2023 End: 10-27-2023 Office outpatient visit [address] DO Work Phone: [facility] Comment on above: Overweight (Primary Dx); Anxiety; Depression, unspecified depression type; Onychomycosis Start: 10-18-2023 End: 10-18-[address] DO Work Phone: [facility] Start: 10-03-2023 End: 10-04-[address] DO Work Phone: [facility] Comment on above: Class 1 obesity due to excess calories with body mass index (BMI) of 31.0 to 31.9 in adult, unspecified whether serious comorbidity present Start: 09-27-2023 End: 09-27-2023 Patient encounter status Armen Street DO Work Phone: [facility] [employer] Work Phone: Start: 09-27-2023 End: 09-27-2023 Periodic preventive med est patient 18-[address] DO Work Phone: [facility] Comment on above: Well adult health ch aashish (Primary Dx); Class 1 obesity due to excess calories without serious comorbidity with body mass index (BMI) of 31.0 to 31.9 in adult; Rectal bleeding; Onychomycosis; Benign skin lesion Start: 09-27-2023 End: 09-27-2023 ambulatory [facility] Start: 09-27-2023 Encounter for genera l adult medical examination without abnormal findings [facility] Start: 09-02-2023 End: 09-02-2023 ambulatory [facility] Pat Phone Call Provider 1 [facility] - Pre Admit Start: 08-25-2023 End: 08-25-2023 Office outpatient new [address] DO Work Phone: [facility] Comment on above: Rectal bleeding (Lucita sangeeta Dx); Mild major depression ([facility]-HCC); Class 1 obesity due to excess calories with body mass index (BMI) of 31.0 to 31.9 in adult, unspecified whether serious comorbidity present Start: 08-10-2023 End: 08-10-2023 Encounter for gynecological examination (general) (routine) without abnormal findings Claire Robertson MD Work Phone: [facility] Start: 08-10-2023 End: 08-10-2023 Initial preventive medicine new pt age 18-39yrs Claire Robertson MD Work Phone: [facility] Comment on above: Encounter for gyneco logical examination without abnormal finding (Primary Dx); Screening for STD (sexually transmitted disease); Pap smear, as part of routine gynecological examination; Encounter for initial prescription of vaginal ring hormonal contraceptive Start: 08-10-2023 End: 08-10-2023 Patient encounter status Claire Robertson MD Work Phone: [facility] Procedures Date Procedure Procedure Detail Performing Clinician Start: 11-23-2024 US OB BPP W NON-STRESS Curtis Jeannine DO Work Phone: Start: 11-16-2024 US OB BPP W NON-STRESS [...] Urine test visual color cmprsn meths Claire Robertson MD Work Phone: Start: 08-10-2023 Adult depression scr eening assessment Claire Robertson MD Work Phone: Start: 08-10-2023 Microscopic observat ion [Identifier] in Cervix by Cyto stain Armen Street DO Work Phone: Plan of Treatment Date Care Activity Detail Author Start: 2068 Respiratory Syncytia l Virus (RSV) or age 60 yrs+ (1 - 1-dose 75+ series) Respiratory Syncytial Virus (RSV) or age 60 yrs+ (1 - 1-dose 75+ series) [facility] Start: 11-03-2034 DTaP,Tdap and Td Vaccines (3 - Td or Tdap) DTaP,Tdap and Td Vaccines (3 - Td or Tdap) [facility] Start: 11-03-2034 DTaP,Tdap and Td Vaccines (8 - Td or Tdap) DTaP,Tdap and Td Vaccines (8 - Td or Tdap) [facility] Start: 08-16-2028 DTaP,Tdap and Td Vaccines (2 - Td or Tdap) DTaP,Tdap and Td Vaccines (2 - Td or Tdap) [facility] Start: 08-16-2028 DTaP/Tdap/Td vaccine (2 - Td or Tdap) DTaP/Tdap/Td vaccine (2 - Td or Tdap) [facility] Start: 07-07-2027 Screening for malign ant neoplasm of cervix Pap Smear [facility] Start: 08-09-2026 Screening for malign ant neoplasm of cervix Pap Smear [facility] [employer] [facility] Start: 11-28-2025 Adult BMI Screening Adult BMI Screen ing [facility] Start: 11-28-2025 Tobacco Screening Tobacco Screening [facility] Start: 11-28-2025 End: 11-28-2025 US MFM with or without consult US MFM with or without consult Imaging Routine Abnormal ultrasonic finding on screening of mother, antepartum Supervision of high risk in third trimester Cystic fibrosis carrier, antepartum Expected: 11/28/2025 (Approximate), Expires: 11/28/2025 Call Loop Work Phone: Comment on above: Expected: 11/28/2025 (Approximate), Expires: 11/28/2025 Start: 11-24-2025 Adult BMI Screening Adult BMI Screen ing [facility] Start: 11-24-2025 Tobacco Screening Tobacco Screening [facility] Start: 11-17-2025 Adult BMI Screening Adult BMI Screen ing [facility] Start: 11-17-2025 Tobacco Screening Tobacco Screening [facility] Start: 11-03-2025 Adult BMI Screening Adult BMI Screen ing [facility] Start: 11-03-2025 Tobacco Screening Tobacco Screening [facility] Start: 10-30-2025 Adult BMI Screening Adult BMI Screen ing [facility] Start: 10-30-2025 Tobacco Screening Tobacco Screening [facility] Start: 10-19-2025 Adult BMI Screening Adult BMI Screen ing [facility] Start: 10-19-2025 Tobacco Screening Tobacco Screening [facility] Start: 10-18-2025 Depression Screening Depression Scre ening [facility] Start: 10-13-2025 End: 10-13-2025 US MFM with or without consult US MFM with or without consult Imaging Routine Abnormal genetic test during Maternal care for other (suspected) abnormality and damage, gastrointestinal anomalies, not applicable or unspecified Cystic fibrosis carrier Expected: 10/13/2025 (Approximate), Expires: 10/13/2025 Call Loop Work Phone: Comment on above: Expected: 10/13/2025 (Approximate), Expires: 10/13/2025 Start: 09-30-2025 Tobacco Screening Tobacco Screening [facility] Start: 09-07-2025 End: 09-07-2025 US MFM with or without consult US MFM with or without consult Imaging Routine Cystic fibrosis carrier Abnormal genetic test during Expected: 09/07/2025 (Approximate), Expires: 09/07/2025 Call Loop Work Phone: Comment on above: Expected: 09/07/2025 (Approximate), Expires: 09/07/2025 Start: 07-28-2025 Adult BMI Screening Adult BMI Screen ing [facility] Start: 07-28-2025 Tobacco Screening Tobacco Screening [facility] Start: 07-28-2025 End: 07-28-2025 US MFM with or without consult US MFM with or without consult Imaging Routine Cystic fibrosis carrier Abnormal genetic test during Expected: 07/28/2025 (Approximate), Expires: 07/28/2025 Call Loop Work Phone: Comment on above: Expected: 07/28/2025 (Approximate), Expires: 07/28/2025 Start: 02-24-2025 Tobacco Counseling Tobacco Counselin g [facility] Start: 01-26-2025 Adult BMI Screening Adult BMI Screen ing [facility] Start: 01-26-2025 Tobacco Screening Tobacco Screening [facility] Start: 12-05-2024 End: 12-05-2024 Patient encounter procedure 12/05/2024 3:30 PM EDT Appointment [facility] [address] [place] [address] [facility] Start: 12-04-2024 Influenza vaccination Influenza Vacc ine [facility] Start: 12-01-2024 End: 12-01-2024 Patient encounter procedure 12/01/2024 10:45 AM EDT Routine [facility] [address] [place] [phone] Tiffany Ornelas MD [address] [place] [phone] [facility] Start: 11-28-2024 End: 11-28-2024 Patient encounter procedure [facility] Start: 11-24-2024 End: 11-24-2024 Patient encounter procedure 11/24/2024 2:45 PM EDT Routine [address] [address] Giacomo Horne MD [address] [place] [address], [place] [address] [facility] Start: 11-21-2024 End: 11-21-2024 Patient encounter procedure [facility] Start: 11-17-2024 End: 11-17-2024 Patient encounter procedure 11/17/2024 2:30 PM EDT Routine [address] [address] Giacomo Horne MD [address] [place] [address], [place] [address] [facility] Start: 11-14-2024 End: 11-14-2024 Patient encounter procedure 11/14/2024 3:30 PM EDT Appointment [facility] [address] [place] [address] [facility] Start: 11-07-2024 End: 11-07-2024 Patient encounter procedure 11/07/2024 3:00 PM EDT Appointment [facility] [address] [place] [phone] Angela Gardner MD [address], [address] [place] [address] [facility] Start: 11-06-2024 End: 11-06-2024 Patient encounter procedure 11/06/2024 11:00 AM EDT Appointment [facility] [address] [place] [phone] [facility] Start: 11-03-2024 Influenza vaccination Flu vaccine (S alisha Ended) [facility] Start: 11-03-2024 End: 11-03-2024 Patient encounter procedure 11/03/2024 1:00 PM EDT Routine [facility] [address] [place] [phone] Tiffany Ornelas MD [address] [place] [phone] [facility] Start: 11-01-2024 End: 01-17-2025 US Pelvis transvaginal US OB transvaginal Imaging Routine Third trimester ([facility]) Expected: 11/01/2024, Expires: 01/17/2025 [facility] Work Phone: Comment on above: Expected: 11/01/2024 [...] of spina bifida Expected: 10/30/2024, Expires: 10/30/2025 [facility] Work Phone: Comment on above: Expected: 10/30/2024 , Expires: 10/30/2025 Start: 10-30-2024 End: 10-30-2024 Patient encounter procedure [facility] Start: 10-30-2024 End: 10-30-2024 ambulatory 10/30/2024 9:45 AM EDT Support Visit Maternal- Medicine at [facility] [address] [place] [phone] Maternal- Medicine at [facility] Start: 10-26-2024 Adult BMI Screening Adult BMI Screen ing [facility] Start: 10-26-2024 Depression Screening Depression Scre ening [facility] Start: 10-26-2024 Tobacco Screening Tobacco Screening [facility] Start: 10-23-2024 End: 10-23-2024 Patient encounter procedure 10/23/2024 1:00 PM EDT Appointment [facility] [address] [place] [address] [facility] Start: 10-19-2024 End: 10-19-2024 Patient encounter procedure 10/19/2024 3:30 PM EDT Appointment [facility] [address] [place] [address] [facility] Start: 10-19-2024 End: 10-19-2024 ambulatory 10/19/2024 2:00 PM EDT Initial [facility] [address] [place] [address] Rain Iverson, DO [address] [place] [address] [facility] Start: 10-17-2024 End: 10-17-2024 Patient encounter procedure [facility] Comment on above: Arrived Start: 10-12-2024 End: 10-12-2024 Patient encounter procedure 10/12/2024 3:15 PM EDT Appointment [facility] [address] [place] [phone] [facility] Start: 10-05-2024 End: 10-05-2024 Patient encounter procedure 10/05/2024 3:30 PM EDT Appointment [facility] [address] [place] [phone] [facility] Start: 10-03-2024 End: 04-05-2025 US biophysical profile w non stress test US biophysical profile w non stress test Imaging Routine Cystic fibrosis carrier, antepartum ([facility]) Maternal care for other (suspected) abnormality and damage, gastrointestinal anomalies, not applicable or unspecified ([facility]) Expected: 10/03/2024 (Approximate), Expires: 04/05/2025 [facility] Work Phone: Comment on above: Expected: 10/03/2024 (Approximate), Expires: 04/05/2025 Start: 10-03-2024 End: 10-03-2024 Patient encounter procedure 10/03/2024 1:40 PM EDT Routine [facility] [address] [place] [phone] Curtis Paez DO [address] [place] [address] [facility] Start: 09-29-2024 End: 09-29-2024 Patient encounter procedure 09/29/2024 3:00 PM EDT Appointment [facility] [address] [place] [phone] Lyndsey Burns MD [address], [address] [place] [address] [facility] Start: 09-26-2024 Adult BMI Screening Adult BMI Screen ing [facility] Start: 09-26-2024 Depression Screening Depression Scre ening [facility] Start: 09-26-2024 Tobacco Screening Tobacco Screening [facility] Start: 09-18-2024 End: 09-18-2024 Patient encounter procedure 09/18/2024 3:40 PM EDT Routine [facility] [address] [facility] [place] [address] Curtis Paez DO [address] [place], [place] [id number] Arrived [facility] Comment on above: Arrived Start: 09-18-2024 End: 01-18-2025 US for US OB follow up transabdominal approach Imaging Routine Cystic fibrosis carrier, antepartum ([facility]) Expected: 09/18/2024 (Approximate), Expires: 01/18/2025 [facility] Work Phone: Comment on above: Expected: 09/18/2024 (Approximate), Expires: 01/18/2025 Start: 09-02-2024 Adult BMI Screening Adult BMI Screen ing [facility] Start: 09-02-2024 Tobacco Screening Tobacco Screening [facility] Start: 08-30-2024 End: 08-30-2024 Patient encounter procedure 08/30/2024 9:50 AM EDT Routine [facility] [address] [place] [address] Jocy Ruby PA [address] [place], [place] [phone] [facility] Start: 08-25-2024 End: 08-25-2024 Patient encounter procedure 08/25/2024 9:45 AM EDT Appointment Maternal Medicine [address] [place] [address] [facility] Start: 08-24-2024 Adult BMI Screening Adult BMI Screen ing [facility] Start: 08-24-2024 Depression Screening Depression Scre ening [facility] Start: 08-24-2024 Tobacco Screening Tobacco Screening [facility] Start: 08-10-2024 End: 08-10-2024 Clinical Support 08/10/2024 11:00 AM EDT Clinical Support [facility] [address] [place] [address] Emi Bronson, [facility] [address] [place] [address] [facility] Start: 08-09-2024 Adult BMI Follow Up Plan Adult BMI Follow Up Plan [facility] Start: 08-09-2024 Adult BMI Screening Adult BMI Screen ing [facility] Start: 08-09-2024 Depression Screening Depression Scre ening [facility] Start: 08-07-2024 End: 08-07-2024 Patient encounter procedure 08/07/2024 11:30 AM EDT Procedure Visit [facility] [address] [place] [phone] Curtis Paez, DO [address] [address] [facility] Start: 08-01-2024 End: 08-01-2025 CBC panel - Blood by Automated count CBC Lab Routine Diabetes mellitus screening Expected: 08/01/2024 (Approximate), Expires: 08/01/2025 [facility] Comment on above: Expected: 08/01/2024 (Approximate), Expires: 08/01/2025 Start: 08-01-2024 End: 08-01-2025 Measurement of glucose 1 hour after glucose challenge for glucose tolerance test Glucose tolerance, 1 hour Lab Routine Diabetes mellitus screening Expected: 08/01/2024 (Approximate), Expires: 08/01/2025 [facility] Comment on above: Expected: 08/01/2024 (Approximate), Expires: 08/01/2025 Start: 08-01-2024 End: 08-01-2024 Patient encounter procedure 08/01/2024 1:20 PM EDT Routine [facility] [address] [facility] [place] [address] Curtis Paez DO [address] [place] [address] [facility] Start: 07-28-2024 End: 07-28-2024 Patient encounter procedure [facility] Start: 07-11-2024 End: 07-11-2024 Clinical Support 07/11/2024 12:00 PM EDT Clinical Support [facility] [address] [place] [phone] Emi Bronson, [facility] [facility] [address] [place] [address] [facility] Start: 07-06-2024 End: 08-05-2024 Alpha fetoprotein, maternal Alpha fetoprotein, maternal Lab Routine 17 weeks gestation of Second trimester Expected: 07/06/2024 (Approximate), Expires: 08/05/2024 [facility] Comment on above: Expected: 07/06/2024 (Approximate), Expires: 08/05/2024 Start: 07-06-2024 End: 07-06-2024 Patient encounter procedure [facility] Comment on above: Arrived Start: 06-20-2024 End: 06-20-2024 Clinical Support [facility] Start: 06-08-2024 End: 06-08-2025 US Pelvis transvaginal US OB transvaginal Imaging Routine 13 weeks gestation of Second trimester History of loop electrosurgical excision procedure (LEEP) of cervix affecting , antepartum Expected: 06/08/2024, Expires: 06/08/2025 [facility] Work Phone: Comment on above: Expected: 06/08/2024 , Expires: 06/08/2025 Start: 06-08-2024 End: 06-08-2024 Patient encounter procedure 06/08/2024 9:20 AM EST Routine [facility] [address] [place] [phone] Curtis Paez DO [address] [place] [address] [facility] Start: 05-24-2024 End: 05-24-2024 Clinical Support 05/24/2024 10:00 AM EST [facility] [address] [place] [phone] Emi Bronson, [facility] [address] [place] [address] [facility] Start: 05-09-2024 End: 05-09-2024 Patient encounter procedure [facility] Comment on above: Arrived Start: 05-09-2024 End: 05-09-2025 US Pelvis transvaginal US OB transvaginal Imaging Routine H/O LEEP Expected: 05/09/2024, Expires: 05/09/2025 [facility] Comment on above: Expected: 05/09/2024 [...] gestational age Expected: 05/05/2024 (Approximate), Expires: 05/05/2025 [facility] Work Phone: Comment [...] AM EST Initial [facility] [address] [place] [phone] [facility] Start: 05-05-2024 End: 05-05-2024 Professional / ancillary services management 05/05/2024 9:30 AM EST Ancillary Procedure [facility] [address] [place] [phone] [facility] Start: 05-03-2024 End: 05-03-2024 Patient encounter procedure 05/03/2024 10:30 AM EST Office Visit [facility] [address] [place] [address] [address], DO [address], [facility] [place] [address] [facility] Start: 05-02-2024 End: 05-02-2024 Telemedicine consultation with patient 05/02/2024 10:45 AM EST Telemedicine [facility] Ob[facility]ne[facility] [address] [place] [id number] Angela Monson, DIRECTOR OF TRAINING-STRUCTURAL IRON ERECTOR [address] [facility] [address] [place], [place] [phone] [facility] Start: 01-27-2024 End: 01-27-2024 Patient encounter procedure 01/27/2024 10:00 AM EDT Office Visit [facility] [address] [place] [address] DO [address], [place] [address] [facility] Start: 12-27-2023 End: 12-27-2023 Clinical Support 12/27/2023 10:00 AM EDT Clinical Support [facility] [address] [place] [address] Emi Bronson, [facility] [address] [place] [address] [facility] Start: 12-13-2023 End: 12-13-2023 Clinical Support 12/13/2023 11:00 AM EDT Clinical Support [facility] [address] [place] [address] Emi Bronson, [facility] [address] [place] [address] [facility] Start: 12-05-2023 COVID-19 Vaccine ( season) COVID-19 Vaccine ( season) [facility] Start: 12-05-2023 COVID-19 Vaccine ( season) COVID-19 Vaccine ( season) [facility] Start: 12-05-2023 COVID-19 Vaccine ( season) COVID-19 Vaccine ( season) [facility] Start: 12-05-2023 Influenza vaccination Influenza Vacc ine [facility] Start: 11-04-2023 Influenza vaccination Flu vaccine (# 1) [facility] Start: 10-28-2023 End: 10-28-2023 Patient encounter procedure 10/28/2023 11:00 AM EDT Office Visit [facility] [address] [place] [address], DO [address], [place] [address] [facility] Start: 10-27-2023 End: 10-27-2023 Patient encounter procedure 10/27/2023 10:15 AM EDT Office Visit [facility] [address] [place] [address], DO [address], [place] [address] [facility] Start: 09-27-2023 End: 09-27-2023 Patient encounter procedure 09/27/2023 10:00 AM EDT [facility] [address] [place] [address], DO [address], [place] [address] [facility] Start: 09-03-2023 End: 09-03-2023 Admission to same day surgery center 09/03/2023 1:30 PM EDT - 09/03/2023 2:30 PM EDT Surgery [facility] [address] [place] [phone] Scotty Mahoney, DO [address] [facility] [place] [address] COLONOSCOPY DIAGNOSTIC / SCREENING [65920 (CPT )] [facility] Comment on above: COLONOSCOPY DIAGNOST IC / SCREENING [65584 (CPT )] Start: 09-03-2023 End: 09-03-2023 Colonoscopy flx dx w/collj spec when pfrmd COLONOSCOPY DIAGNOSTIC / SCREENING rectal bleeding 09/03/2023 1:30 PM EDT [facility] Start: 09-03-2023 Subsequent hospital visit by physician 09/03/2023 1:30 PM EDT Hospital Encounter [facility] [address] [place] [address] Scotty Mahoney, DO [address] [facility] [place] [address] [facility] Start: 09-02-2023 End: 09-02-2023 ambulatory 09/02/2023 2:00 PM EDT Support Visit [facility] - Pre Admit [address] [place] [address] [facility] Pre Admit Start: 08-25-2023 End: 08-25-2023 Patient encounter procedure 08/25/2023 9:20 AM EDT Office Visit [facility] [address] [place] [address], DO [address] [facility], [place] [address] [facility] Start: 08-01-2023 Screening for malign ant neoplasm of cervix [facility] Start: 2014 Screening for malign ant neoplasm of cervix Pap smear [facility] Start: 2012 DTaP,Tdap and Td Vaccines (1 - Tdap) DTaP,Tdap and Td Vaccines (1 - Tdap) [facility] Start: 2012 Hepatitis B vaccine (1 of 3 - 19+ 3-dose series) Hepatitis B vaccine (1 of 3 - 19+ 3-dose series) [facility] Start: 2012 Pneumococcal 0-49 ye ars Vaccine (1 of 2 - PCV) Pneumococcal 0-49 years Vaccine (1 of 2 - PCV) [facility] Start: 08-01-2011 Adult BMI Follow Up Plan Adult BMI Follow Up Plan [facility] Start: 08-01-2011 Hepatitis C screening Hepatitis C sc reen [facility] Start: 2008 HIV screening HIV screen [facility] Start: 2006 Varicella vaccine (1 of 2 - 13+ 2-dose series) Varicella vaccine (1 of 2 - 13+ 2-dose series) [facility] Start: 2005 Depression Screen Depression Screen [facility] Start: 2005 Tobacco Screening Tobacco Screening [facility] Start: 08-01-1999 Pneumococcal 0-64 ye ars Vaccine (1 of 2 - PCV) Pneumococcal 0-64 years Vaccine (1 of 2 - PCV) [facility] Bacteria identified in Urine by Culture Urine culture Microbiology Routine Missed menses Ordered: 05/05/2024 [facility] Comment on above: Ordered: 05/05/2024 End: 09-26-2024 CBC panel - Blood by Automated count CBC Lab Routine Rectal bleeding 1 Occurrences starting 09/27/2023 until 09/26/2024 [facility] Comment on above: 1 Occurrences starti ng 09/27/2023 until 09/26/2024 CBC W Auto Different ial panel - Blood CBC and differential Lab Routine Missed menses , unspecified gestational age Ordered: 05/05/2024 [facility] Comment on above: Ordered: 05/05/2024 CHLAMYDIA TRACHOMATI S (GENITO/STI) CHLAMYDIA TRACHOMATIS (GENITO/STI) Lab Routine Exposure to STD Ordered: 07/06/2024 [facility] Comment on above: Ordered: 07/06/2024 CHLAMYDIA TRACHOMATI S (GENITO/STI) CHLAMYDIA TRACHOMATIS (GENITO/STI) Lab Routine Chlamydia trachomatis infection 21 weeks gestation of Second trimester Ordered: 08/01/2024 [facility] Comment on above: Ordered: 08/01/2024 End: 08-09-2024 Chlamydia/GC by PCR ThinPrep fluid Chlamydia/GC by PCR ThinPrep fluid Microbiology Routine Pap smear, as part of routine gynecological examination 1 Occurrences starting 08/10/2023 until 08/09/2024 [facility] Comment on above: 1 Occurrences starti ng 08/10/2023 until 08/09/2024 End: 08-24-2024 Colonoscopy Colonoscopy GI Routine Rectal bleeding 1 Occurrences starting 08/25/2023 until 08/24/2024 [employer] [facility] Work Phone: Comment on above: 1 Occurrences starti ng 08/25/2023 until 08/24/2024 End: 09-26-2024 Comprehensive metabolic 2000 panel - Serum or Plasma Comprehensive metabolic panel Lab Routine Well adult health check 1 Occurrences starting 09/27/2023 until 09/26/2024 [employer] Phone: Comment on above: 1 Occurrences starti ng 09/27/2023 until 09/26/2024 Cytology Cervical or vaginal smear or scraping study Pap Smear Pathology and Cytology Routine Well woman exam with routine gynecological exam Ordered: 07/06/2024 [facility] Comment on above: Ordered: 07/06/2024 End: 08-09-2024 Cytopathology procedure, preparation of smear, genital source Pap Smear Pathology and Cytology Routine Pap smear, as part of routine gynecological examination 1 Occurrences starting 08/10/2023 until 08/09/2024 [facility] Comment on above: 1 Occurrences starti ng 08/10/2023 until 08/09/2024 End: 01-19-2025 nonstress test - Maternal Medicine nonstress test - Maternal Medicine OB Routine Supervision of high risk in third trimester Per Treatment Plan for 4 Occurrences starting 10/19/2024 until 01/19/2025 [employer] Phone: Comment on above: Per Treatment Plan f or 4 Occurrences starting 10/19/2024 until 01/19/2025 End: 04-18-2025 HCG, Quantitative, HCG, Quantitative, Lab Routine Positive test 1 Occurrences starting 04/18/2024 until 04/18/2025 [employer] Phone: Comment on above: 1 Occurrences starti ng 04/18/2024 until 04/18/2025 Hemoglobin A1c/Hemoglobin.total in Blood Hemoglobin A1c Lab Routine Missed menses , unspecified gestational age Ordered: 05/05/2024 [facility] Comment on above: Ordered: 05/05/2024 Hepatitis B virus surface Ag [Presence] in Serum or Plasma by Immunoassay Hepatitis B surface antigen Lab Routine Missed menses , unspecified gestational age Ordered: 05/05/2024 [facility] Comment on above: Ordered: 05/05/2024 Hepatitis C virus Ab [Presence] in Serum or Plasma by Immunoassay Hepatitis C antibody Lab Routine Missed menses , unspecified gestational age Ordered: 05/05/2024 [facility] Comment on above: Ordered: 05/05/2024 End: 08-09-2024 Hepatitis panel, acute Hepatitis panel, acute Lab Routine Screening for STD (sexually transmitted disease) 1 Occurrences starting 08/10/2023 until 08/09/2024 [facility] Comment on above: 1 Occurrences starti ng 08/10/2023 until 08/09/2024 End: 08-09-2024 High risk HPV w/faustina High risk HPV w/faustina Lab Routine Pap smear, as part of routine gynecological examination 1 Occurrences starting 08/10/2023 until 08/09/2024 [facility] Comment on above: 1 Occurrences starti ng 08/10/2023 until 08/09/2024 End: 08-09-2024 HIV 1&2 AB/AG Screen (P24 AG) HIV 1&2 AB/AG Screen (P24 AG) Lab Routine Screening for STD (sexually transmitted disease) 1 Occurrences starting 08/10/2023 until 08/09/2024 [employer] [facility] Work Phone: Comment on above: 1 Occurrences starti ng 08/10/2023 until 08/09/2024 HIV-1/HIV-2 antigen/antibody combination immunoassay HIV-1 and HIV-2 antibodies Lab Routine Missed menses , unspecified gestational age Ordered: 05/05/2024 [facility] Comment on above: Ordered: 05/05/2024 Human papilloma viru s DNA [Presence] in Unspecified specimen by Probe with amplification HPV DNA probe, amplified Microbiology Routine Well woman exam with routine gynecological exam Ordered: 07/06/2024 [facility] Comment on above: Ordered: 07/06/2024 End: 09-26-2024 Lipid panel Lipid panel Lab Routine Well adult health check 1 Occurrences starting 09/27/2023 until 09/26/2024 [facility] Comment on above: 1 Occurrences starti ng 09/27/2023 until 09/26/2024 Neisseria gonorrhoea e DNA [Presence] in Unspecified specimen by ALLISON with probe detection Neisseria gonorrhea DNA probe, direct Lab Routine Exposure to STD Ordered: 07/06/2024 [facility] Comment on above: Ordered: 07/06/2024 Neisseria gonorrhoea e DNA [Presence] in Unspecified specimen by ALLISON with probe detection Neisseria gonorrhea DNA probe, direct Lab Routine Chlamydia trachomatis infection 21 weeks gestation of Second trimester Ordered: 08/01/2024 [facility] Comment on above: Ordered: 08/01/2024 Reagin Ab [Presence] in Serum by RPR RPR Lab Routine Missed menses , unspecified gestational age Ordered: 05/05/2024 [facility] Comment on above: Ordered: 05/05/2024 Rubella antibody, IgG Rubella an tibody, IgG Lab Routine Missed menses , unspecified gestational age Ordered: 05/05/2024 [facility] Comment on above: Ordered: 05/05/2024 Strep B screen Strep B screen Microbiology Routine Third trimester 11/17/2024 3:01 PM EDT [facility] Work Phone: SURESWAB(R) ADVANCED VAGINITIS PLUS, TMA SURESWAB(R) ADVANCED VAGINITIS PLUS, TMA Pathology and Cytology Routine Vaginal discharge Ordered: 07/06/2024 [facility] [employer] Work Phone: Comment on above: Ordered: 07/06/2024 SURESWAB(R) ADVANCED VAGINITIS PLUS, TMA SURESWAB(R) ADVANCED VAGINITIS PLUS, TMA Pathology and Cytology Routine Chlamydia trachomatis infection 21 weeks gestation of Second trimester Ordered: 08/01/2024 [facility] [employer] Work Phone: Comment on above: Ordered: 08/01/2024 End: 08-09-2024 Syphilis Total(Unknown Syphilis Status) Syphilis Total(Unknown Syphilis Status) Lab Routine Screening for STD (sexually transmitted disease) 1 Occurrences starting 08/10/2023 until 08/09/2024 [facility] Comment on above: 1 Occurrences starti ng 08/10/2023 until 08/09/2024 Thyrotropin [Units/volume] in Serum or Plasma TSH Lab Routine Missed menses Ordered: 05/09/2024 [facility] Work Phone: Comment on above: Ordered: 05/09/2024 End: 09-26-2024 TSH with Reflex TSH with Reflex Lab Routine Class 1 obesity due to excess calories without serious comorbidity with body mass index (BMI) of 31.0 to 31.9 in adult 1 Occurrences starting 09/27/2023 until 09/26/2024 [email or web address] Comment on above: 1 Occurrences starti ng 09/27/2023 until 09/26/2024 End: 09-10-2024 Us uterus limited fetuses Yan Mathur [employer] Work Phone: Comment on above: Once for 1 Occurrenc es starting 09/10/2024 until 09/10/2024 Immunizations Immunization Date Immunization Notes Care Provider Ebenezer mojica 11-03-2024 tetanus toxoid, redu andrew diphtheria toxoid, and acellular pertussis vaccine, adsorbed Tiffany Ornelas MD Work Phone: [facility] [employer] 11-03-2024 Immunization, In Clinic,; Translations: [Drug or medicament (substance)] Tiffany Ornelas MD Work Phone: [facility] [employer] 08-16-2018 tetanus toxoid, redu andrew diphtheria toxoid, and acellular pertussis vaccine, adsorbed Armen Street DO Work Phone: [facility] Payers Date Payer Category Payer Unknown [id number] 2023 Commercial Managed C are - PPO [employer] [id number] 2023 Private Health Insurance [id number] 2023 Unknown [id number]. 1.13.693.2. [id number] 2023 Unknown [id number] 2017 Unknown [id number] 1.2.840.561716.1.13.239.2. 7.9.712752.7484.315 1993 Unknown [id number] 2.16.840.1.100517.3.579.2. 128 1993 Unknown [id number] 2.16840.1.672232.3.579.2. 1285 1993 Unknown [id number] 2.16.840.1.355584.3.579.2. 128 1993 Unknown [id number] 2.16.840.1.394682.3.579.2. 1285 1993 Unknown [id number] 2.16.840.1.957943.3.579.2. 173 1993 Unknown [id number] 2.16.840.1.015731.3.579.2. 173 1993 Unknown [id number] 2.16.840.1.617619.3.579.2. 173 1993 Unknown [id number] 2.16.840.1.403139.3.579.2. 128 1993 Unknown [id number] 2.16.840.1.985692.3.579.2. 128 1993 Unknown [id number] 2.16.840.1.535066.3.579.2. 1285 1993 Unknown [id number] 2.16.840.1.087219.3.579.2. 1285 1993 Unknown [id number] 2.16840.1.956602.3.579.2. 1285 1993 Unknown [id number] 2.16.840.1.145439.3.579.2. 1285 1993 Unknown [id number] 2.16840.1.044314.3.579.2. 1285 1993 Unknown [id number] 2.16840.1.829265.3.579.2. 1285 1993 Unknown [id number] 2.840.1.715125.3.579.2. 1285 1993 Unknown [id number] 2.840.1.645645.3.579.2. 1285 1993 Unknown [id number] 2.840.1.298171.3.579.2. 1285 1993 Unknown [id number] 2.840.1.753340.3.579.2. 1285 1993 Unknown [id number] 2.840.1.555147.3.579.2. 1285 1993 Unknown [id number] 2.16840.1.991595.3.579.2. 1285 1993 Unknown [id number] 2.840.1.214520.3.579.2. 1285 1993 Unknown [id number] 2.840.1.494813.3.579.2. 1285 1993 Unknown [id number] 2.16840.1.560582.3.579.2. 1285 1993 Unknown [id number] 2.16840.1.543426.3.579.2. 1285 1993 Unknown [id number] 2.16840.1.852265.3.579.2. 1285 1993 Unknown [id number] 2.16.840.1.755603.3.579.2. 1286 1993 Unknown [id number] 2.16.840.1.029454.3.579.2. 1286 1993 Unknown [id number] 2.16.840.1.700251.3.579.2. 1286 1993 Unknown [id number] 2.16.840.1.470750.3.579.2. 1286 Medicaid [place] [employer] [id number] Social History Date Type Detail Facility Tobacco smoking stat [facility] Tobacco smoking consumption unknown [facility] Start: 1995 Sex assigned at Female [facility] Start: 10-25-2023 Gender identity Identifies as female gender (finding) [facility] Start: 08-25-2023 End: 11-24-2024 Sexual orientation Not on file [facility] Start: 08-01-2011 End: 04-27-2024 Tobacco smoking status LAIS Smokes tobacco daily [facility] Start: 08-01-2011 History of tobacco use Cigarette Smo ker [facility] Start: 08-25-2023 End: 11-24-2024 Cigarettes smoked current (pack per day) - Reported 1 [facility] Start: 08-25-2023 End: 04-27-2024 Tobacco use and exposure Smokeless tobacco non-user [facility] Start: 01-27-2024 End: 11-28-2024 Alcoholic beverage intake Ex-drinker (finding) [facility] Has the [employer], or [employer] threatened to shut off services in your home in past 12Mo No [facility] Are you now , , , , never or living with a partner? Never [facility] How often to you hav e a drink containing alcohol? Never [facility] How many standard drinks containing alcohol do you have on a typical day? Patient does not drink [facility] How hard is it for y ou to pay for the very basics like food, housing, medical care, and heating Somewhat hard [facility] Do you feel stress - tense, restless, nervous, or anxious, or unable to sleep at night because your mind is troubled all the time - these days [OSQ] To some extent [facility] Start: 1995 Sex assigned at Not on file [employer] [facility] Start: 05-15-2012 End: 11-08-2014 Sex Female (finding) [facility] [employer] [facility] Start: 03-21-2024 [facility] How hard is it for y ou to pay for the very basics like food, housing, medical care, and heating Not very hard [facility] [employer] [facility] Goals Date Patient Goal Desired Activity /State Personal health goal Clinical Notes 08-10-2023 to 11-28-2024 Edil Snow MD - 11/28/2024 11:30 AM Michael Maradiaga ORAL SURGERY ASSISTANT - 11/28/2024 11:30 AM Rusty Driver DO - 11/24/2024 2:45 PM Fina Wallace LPN - 11/24/2024 2:45 PM EDTDischarge Instructions Note Date & Type Note Facility 11-28-2024 History of Present illness Narrative REASON FOR OFFICE VISIT: Fetus with cystic fibrosis HISTORY OF PRESENT ILLNESS: Sapna Serrano is a pleasant 29 y.o. G0 at 38w0d due on Estimated Date of Delivery: 12/12/24 . has been complicated with cystic fibrosis. She underwent amniocentesis which indicated two CF causing variants ([id number] and [id number]). Currently the patient has no complaints. The [...] test negative 09/03/23 at 1242 BMI 37.80 kg/m . Gravid abdomen, Respirations not labored. Normal gait well oriented in time place and person. [facility] US 11/28/24 Impression Single viable intrauterine with [...] the patient also lives far away from [facility]. Risks of cystic fibrosis with a complications such as but not limited to meconium ileus discussed. She has a seen a cystic fibrosis specialist. Of note the patient is no longer with the father of the and she is currently with a new partner. RECOMMENDATION: - continue with the surveillance - Delivery for now [id number] unless an indication arises for delivery earlier. Thank you for allowing me to participate in Sapna Serrano care. If there are any questions, please do not hesitate to call me. Edil Snow MD, FACOG (she/hers) Maternal- Medicine [address] [place] [address] Headache/epigastric pain/blurry vision/swelling? Mild swelling if on feet for too long, resolves with rest and elevation Cramping/contractions? BH contractions Spotting or vaginal bleeding? No Loss or gush of fluid like your water may have broken? No Recent ER visits or hospitalizations? No Any concerns that you would like me to mention to the provider today? No documented in this encounter [facility] 11-24-2024 History of Present illness Narrative [facility]lo For [facility] High Risk Obstetrics [...] test negative 09/03/23 at 1242 BMI 38.04 kg/m Alert, NAD Abdomen: Soft, NT, nondistended FHTs 140 Wt Readings from Last 3 Encounters: 11/24/24 100.6 kg (221 lb 11.2 oz) 11/17/24 99.5 kg (219 lb 4.8 oz) 11/03/24 97 kg (213 lb 12.8 oz) See flowsheet Imp/Plan Problem List Maternal care for other (suspected) abnormality and damage, gastrointestinal anomalies, not applicable or unspecified - Primary Cystic fibrosis [...] third trimester Overview Tranasfer from Dr. Paez howe Dated by LMP c/w 7 week US Initial and 28 week labs--completed Chlamydia infection affecting , antepartum Overview 07/2024 Treated with negative test of reinfection care - labor precautions and movement discussed - GBS negative - S/p Tdap - Delivery timing to be further addressed with MFM Fetus with two CF causing variants - Continue twice weekly NST (at [place]), weekly BPP, weekly bowel evaluation and DVP [...] this time RTC 1 weeks via HROB Corinne Driver DO Adjuster Piano Action Resident, PGY-3 Resident Attestation: The patient was seen and discussed with preceptor Dr. Giacomo Horne MD. Pt here for routine HROB 37w 3d Denies lof vb ctx Pt c/o Stepan epstein Confirms +fm No concerns today Urine dip: trace protein, small bili Attending Attestation: I saw the patient. I [...] and 28 week labs--completed Rto 1 week. Giacomo Horne MD MPH 11/24/2024 3:05 PM documented in this encounter [facility] 11-17-2024 History of Present illness Narrative Charlo For [facility] High Risk Obstetrics Return OB Visit CC: Scheduled OB Visit Subjective: at 36w3d Reports [place]. Denies vaginal bleeding, loss of fluid. Reports [...] third trimester Overview Tranasfer from Dr. Paez howe Dated by LMP c/w 7 week US Initial and 28 week labs--completed Anxiety and depression Chlamydia infection affecting , antepartum Overview 07/2024 Treated with negative test of reinfection Care - S/p Tdap - labor precautions discussed - kick count advised - GBS obtained today Fetus with Two CF causing Variants - Continue twice weekly NST (at [facility]), weekly BPP, weekly bowel evaluation and DVP [...] BID, tums prn Control plan: sterilization - [place] med[place] consent form signed 11/06/24. She is aware that she can change her mind prior to the surgery time. RTC in 2 weeks via HROB Beverly Ramirez MD Adjuster Piano Action Resident, PGY-4 Pt here for 36w3d HR [...] 11/17/2024 3:33 PM [facility] History of Present illness Narrative Charlo For [facility] High Risk Obstetrics [...] good relief testing is being done at [facility] with Dr. Paez 10/09/24 + chlamydia Treated [...] based on amniocentesis Twice weekly testing--receiving at [facility] and NST with DVP/bowel check here at [facility] Serial growth scans--last done 10/30 at 33w5d Anxiety/depression stable H/o chlamydia this (07/2024) Urine GC/Chlamydia Request for steriliztion Sterilization discussed, including methods, alternatives (including vasectomy) and risks/expectations, including regret and failure. Patient desires to sign federal sterilization form--completed. She is aware that she can change her mind prior to the surgery time. [place]. RTC 2 weeks via HROB Note [...] would like TDAP. documented in this encounter [facility] 10-30-2024 History of Present illness Narrative [...] amniocentesis which indicated two CF causing variants ([id number] and G5892O). Currently the patient has no complaints. The [...] for allowing me to participate in Sapna Bryant care. If there are any questions, please do not hesitate to call me. Sincerely, ANGELA GARDNER MD documented in this encounter [facility] 10-24-2024 Miscellaneous Notes Per Joyce Loaiza, consumer loan underwriter lvzuleika stating that we will wait to schedule from the next tracker on 10/30. Stitcher Hand also asked if pt wanted an nst scheduled on 10/30. documented in this encounter [facility] 10-24-2024 Telephone encounter Note Per Joyce Loaiza, consumer loan underwriter lvzuleika stating that we will wait to schedule from the next tracker on 10/30. Stitcher Hand also asked if pt wanted an nst scheduled on 10/30. [facility] 10-23-2024 History of Present illness Narrative [...] all scheduled appointments documented in this encounter [facility] 10-19-2024 History of Present illness Narrative Patient [...] - s/p amniocentesis with two CF variants ([id number] and W8236C). Patient is doing well overall. Reports good [...] 09/03/2023 Performed by Scotty Mahoney DO at [facility] Allergies Allergies Allergen Reactions Penicillins [...] S/p amniocentesis with two CF causing variants (R289mhr and G8239H) - Follows with Maternal- Medicine - Plan for twice weekly NSTs, weekly bowel evaluation and DVP and growth US q4w - [facility] US (09/29): cephalic, anterior, EFW 1456g (50%), AC 55%, DVP 5.6 cm, bowel appears prominent measuring at the 95% percentile. - Patient has met with cystic fibrosis specialist - Delivery timing to be determined by [facility] RTO in 2 weeks with HROB Patient seen and discussed with Dr. Ronda DO. Corinne Driver DO Adjuster Piano Action Resident, PGY-3 documented in this encounter [facility] 10-17-2024 History of Present illness Narrative Reason [...] anxiety disorder) 10/25/2023 Cystic fibrosis carrier, antepartum ([facility]) 06/12/2024 Placental abnormality in third trimester ([facility]) 09/21/2024 History of loop electrosurgical excision procedure (LEEP) of cervix affecting , antepartum ([facility]) 09/21/2024 Third trimester ([facility]) 10/03/2024 29 weeks gestation of ([facility]) 10/03/2024 HSV infection 10/03/2024 Resolved Ambulatory [...] ASSESSMENT & PLAN ICD-10-CM 1. Third trimester ([facility]) Z34.93 CANCELED: POCT urinalysis dipstick manually resulted 2. 32 weeks gestation of ([facility]) Z3A.32 Return OB: Patient presents today [...] added she has her first OB appointment w/[facility] on . No orders of the defined types were placed in this encounter. Follow Up: Patient is to return to office in 2 week for routine OB appointment. Documented by Nely Warren MA on behalf of: HANNAH Carey documented in this encounter [facility] 10-03-2024 History of Present illness Narrative Reason [...] anxiety disorder) 10/25/2023 Cystic fibrosis carrier, antepartum ([facility]) 06/12/2024 Placental abnormality in third trimester ([facility]) 09/21/2024 History of loop electrosurgical excision procedure (LEEP) of cervix affecting , antepartum ([facility]) 09/21/2024 Third trimester ([facility]) 10/03/2024 29 weeks gestation of ([facility]) 10/03/2024 HSV infection 10/03/2024 Resolved Ambulatory [...] nursing note reviewed. Exam conducted with a pharmacist per diem present. Vitals: Estimated body mass index is 34.84 kg/m as calculated from the following: Height as of this encounter: 5' 4 . Weight as of this encounter: 203 lb. BP: 122/74 Patient's last menstrual period was 03/07/2024. ASSESSMENT & PLAN ICD-10-CM 1. Third trimester ([facility]) Z34.93 POCT urinalysis dipstick manually resulted 2. Cystic fibrosis carrier, antepartum ([facility]) O09.899 Z14.1 3. Moderate episode of recurrent major depressive disorder (HCC) F33.1 4. History of loop electrosurgical excision procedure (LEEP) of cervix affecting , antepartum ([facility]) O34.40 Z98.890 5. HSV infection B00.9 6. 30 weeks gestation of ([facility]) Z3A.30 Return OB: Patient presents today [...] and DVP. Pt will be delivered in [place] or [place]. Pt to be a complete transfer of care at 32 weeks. Orders Placed This Encounter Procedures POCT urinalysis dipstick manually resulted Follow Up: Patient is to return to office in 2 week for routine OB appointment. Documented by Laura Godwin LPN on behalf of: Curtis Paez DO documented in this encounter [facility] 09-29-2024 History of Present illness Narrative Headache/epigastric [...] or hospitalizations? Yes, for bleeding, talked to [facility]ing [facility]a about it today Any concerns that you [...] amniocentesis which indicated two CF causing variants (M226poc and T6809H). Prominent bowel seen today Recent episode of [...] 09/03/2023 Performed by Scotty Mahoney DO at [facility] ALLERGIES: Allergies Allergen Reactions Penicillins [...] and the other consultants, we search on [employer] and all the available care everywhere epic I did review all the imaging studies of the patient available on EMR, ordered by the primary care physician and the other information services consultant HABITS: Patient activity no restrictions, [...] Well oriented time place person, normal gait [facility] US Impression Single viable intrauterine with appropriate [...] MAURO modulator therapy Weekly bowel evaluation through [facility] recommended. On ultrasound today no sonographic evidence [...] - Weekly bowel evaluation and DVP through [facility] for now - repeat growth ultrasound in 4 weeks with [facility] - the patient to be presented to our multidisciplinary meeting with the NICU - the patient has seen a cystic fibrosis specialist - location of delivery to be further addressed. -timing of delivery to be further addressed pending clinical course DISPOSITION: At this point the patient is in complete care of her stave block splitter. Patient does have ultrasound scheduled with us. Thank you for allowing me to participate in Sapna Serrano . If there any questions please do not hesitate to contact us. Sincerely, EDIL SNOW MD documented in this encounter [facility] 09-18-2024 History of Present illness Narrative [...] anxiety disorder) 10/25/2023 Cystic fibrosis carrier, antepartum ([facility]) 06/12/2024 Resolved Ambulatory Problems Diagnosis Date Noted [...] the abdomen where she works at the [employer] and was evaluated in our OB department. Ultrasound completed on 09/14/24 with hypoechoic fluid collection that likely represent subchorionic hemorrhage. She has scheduled growth US with [facility] on the of this month. We discussed starting of Effexor and she is agreeable to trialing this medication for her anxiety. Vitals and nursing note reviewed. Exam conducted with a pharmacist per diem present. Vitals: There is no height or weight on file to calculate BMI. BP: Patient's last menstrual period was 03/07/2024. ASSESSMENT & PLAN ICD-10-CM 1. Second trimester ([facility]) Z34.92 POCT urinalysis dipstick manually resulted 2. 27 weeks gestation of ([facility]) Z3A.27 3. Cystic fibrosis carrier, antepartum ([facility]) O09.899 US OB follow up transabdominal [...] the abdomen where she works at the [employer] and was evaluated in our OB department. [...] Curtis Paez DO documented in this encounter [facility] 09-15-2024 Miscellaneous Notes Received call from patient with reports of recent visit to [facility] ED due to vaginal bleeding. Patient states ultrasound was performed and she was told she has a subchorionic hematoma. States was discharged with instruction to follow up with OB. Appointment scheduled with OB for 09/19/24. Patient inquiring if next MFM ultrasound needs to be sooner than scheduled. Stitcher Hand reviewed information with Dr. Burns. Per yadi Garza to keep MFM ultrasound scheduled as is and follow up with OB. Returned call to patient and LVM with above recommendations and precautions for when to return to nearest Labor and Delivery ED if indicated. documented in this encounter [facility] 09-15-2024 Telephone encounter Note Received call from patient with reports of recent visit to [facility] ED due to vaginal bleeding. Patient states ultrasound was performed and she was told she has a subchorionic hematoma. States was discharged with instruction to follow up with OB. Appointment scheduled with OB for 09/19/24. Patient inquiring if next MFM ultrasound needs to be sooner than scheduled. Stitcher Hand reviewed information with Dr. Burns. Per yadi Garza to keep MFM ultrasound scheduled as is and follow up with OB. Returned call to patient and LVM with above recommendations and precautions for when to return to nearest Labor and Delivery ED if indicated. [facility] 09-11-2024 Hospital Discharge instructions Brenda Lancaster RN - 09/11/2024 12:32 AM EDT OUTPATIENT DISCHARGE Dr. Marlen Don CN Dr. Lillian Maldonado CNM [address] [facility] [address] [place] [address] Lillian Swenson CN [address] [facility] [id number] [phone] Tamara Myers, MSN, DIRECTOR OF TRAINING, CNM [facility] [address] [facility] [address] [address] [facility] [address] Antoinette Macdonald CNM [address] [place], [place] [id number] Giacomo Benson CNM [address] [place] [address] [place] [address] [phone] ACTIVITY LIMITATIONS: ( )Up and about as [...] AND DELIVERY . documented in this encounter [facility] 09-07-2024 History of Present illness Narrative Cystic [...] today. Sapna underwent cell free DNA testing ([place] NIPT) which indicated that the fetus is at high risk for cystic fibrosis. Both parents are known to be carriers of a CFTR variant. She underwent amniocentesis which indicated two CF causing variants (T754tnz and B1927F). This is mom's first . There is no known family history of cystic fibrosis. MFM specialist-Dr. Burns, clinic note reviewed from 07/28/2024, [...] on sweat chloride testing. The 2 variants (N619mgz and W6843V) that were identified by amniocentesis are highly [...] record- 5 min [facility] History of Present illness Narrative Reason [...] disorder (CMS/HCC) 10/25/2023 ALICIA (generalized anxiety disorder) ([facility]) 10/25/2023 Cystic fibrosis carrier, antepartum 06/12/2024 [...] nursing note reviewed. Exam conducted with a pharmacist per diem present. Vitals: There is no height or [...] appointment. Patient continues to follow closely with MFM and had recent amniocentesis confirming Cystic Fibrosis; she has follow up with genetic counseling and is meeting with support from the [employer]. She will follow up in our office in 2 weeks. Will obtain CBC and 1 hour glucose today. Documented by Carlotta Doll NP on behalf of: Carlotta Doll NP documented in this encounter [facility] 08-17-2024 Miscellaneous Notes Summary: Amnio results Called [...] concerns. [facility]24 Telephone encounter Note Summary: Amnio results [...] she has any additional questions or concerns. [facility] Work Phone: 08-14-2024 History of Present illness [...] nursing note reviewed. Exam conducted with a pharmacist per diem present. Vitals: There is no height or [...] Curtis Paez DO documented in this encounter [facility] 08-01-2024 History of Present illness Narrative Reason for Appointment: Patient ID: Sapna Serarno is a 29 y.o. female who presents [...] 10/25/2023 ALICIA (generalized anxiety disorder) (CMS/HCC) 10/25/2023 Cystic fibrosis carrier, antepartum 06/12/2024 Resolved [...] nursing note reviewed. Exam conducted with a pharmacist per diem present. Vitals: There is no height or [...] Curtis Paez DO documented in this encounter [facility] 07-28-2024 History of Present illness Narrative Headache/epigastric [...] Yes Have you been seen here at [facility] in a previous ? No Recent ER visits or hospitalizations? No Bring blood sugar log or meter with you today? (Please bring them with you for every visit at [facility]) N/A Flu vaccine (Feb-June)? N/A Any concerns that you would like me to mention to the provider today? N/A Procedure: Amniocentesis Procedure completed by: Dr. Burns Maternal blood type: A+ Maternal vitals taken prior to procedure. In Attendance: Miriam Garza, RN, Guero, FITTER UP, Damaris, MARLENI, genetic counseling student, patient's mother FHR pre-procedure: [...] 09/03/2023 Performed by Scotty Mahoney DO at [facility] ALLERGIES: Allergies Allergen Reactions Penicillins [...] and the other consultants, we search on [employer] and all the available care everywhere epic I did review all the imaging studies of the patient available on EMR, ordered by the primary care physician and the other information services consultant HABITS: Patient activity no restrictions, [...] fibrosis baby born, please reach out to [facility] for complete transfer of care and delivery at [facility] DISPOSITION: At this point the patient is in complete care of her stave block splitter. Patient does have ultrasound scheduled with us. Thank you for allowing me to participate in Sapna Serrano . If there any questions please do not hesitate to contact us. Sincerely, LYNDSEY BURNS MD documented in this encounter [facility] 07-12-2024 Miscellaneous Notes Summary: Possible FOB [...] or concerns arise. documented in this encounter [facility] 07-12-2024 Telephone encounter Note Summary: Possible FOB [...] out if additional questions or concerns arise. [facility] Work Phone: 07-06-2024 History of Present illness [...] 10/25/2023 ALICIA (generalized anxiety disorder) (CMS/HCC) 10/25/2023 Cystic fibrosis carrier, antepartum 06/12/2024 Resolved [...] nursing note reviewed. Exam conducted with a pharmacist per diem present. Vitals: There is no height or [...] of: HANNAH Carey documented in this encounter [facility] 06-20-2024 Miscellaneous Notes Left a message for pt about her amnio that Jocy Sam scheduled. I will call her back tomorrow to make sure she received my message, documented in this encounter [facility] 06-20-2024 Telephone encounter Note Left a message for pt about her amnio that Jocy Vargas scheduled. I will call her back tomorrow to make sure she received my message, [facility] 06-20-2024 History of Present illness Narrative Summary: [facility] Genetic Counseling Note Images from the original note were not included. Provider at different site/location than patient. I confirmed the patient is located in the state of [place]. Sapna Serrano is currently at home and provider at remote site. The patient consented to be treated electronically via this form of telemedicine. This visit was not related to an office visit or procedure in the past 7 days, and in-office follow up is not recommended in the next 24 hours. Video Visit via Real-time Synchronous Audiovisual Provider Location: [facility] [address] [phone] Patient Location: Patient's home Patient Location Resident Care Manager: None Video Visit Consent Statement: I [...] that there are some limitations compared to [id number] evaluations. We elected to proceed. Name: Sapna Serrano DOB: 1995 Date of Visit: 06/20/2024 Email: [email or web address] Preferred contact method: mychart Requesting Physician: Curtis Paez DO [address] [place] [address] [facility] [address] Reason for Referral: Sapna Serrano is a 28 y.o. female who presented to [facility] Telemedicine Clinic accompanied by their mother, Angela, [...] Screen: YES - low risk Performing lab: [facility] Conditions screened: Trisomy 13, Trisomy 18, Trisomy 21, sex chromosome aneuploidies sex predicted: female fraction: 5.8% Drawn on: 05/17/2024 Carrier Screening: YES - carrier for cystic fibrosis, high risk fetus Performing lab: [facility] Test type: UNITY Screen Carrier Screen with [...] Paternal ancestry: Ángel: White, ; Yonatan: White ([place]ian), Consanguinity: denied The history was otherwise unremarkable [...] with CF is 9 in 10 (per [facility] risk assessment). FOB carrier screening for CF is available to further delineate risks to the and future pregnancies. diagnosis is also available if desired. We reviewed all children born in the [place] are screened for Cystic Fibrosis via [...] of the medical records and evaluation by director medical of the affected individual, may be helpful [...] delay and spina bifida 6. Online resources: [place] [employer] (cff.org) WhatIsCysticFibrosis.pdf Total time [...] call or email their genetic counselor at [phone] or [email or web address] if any additional questions or concerns should arise. DANA Alas Licensed, Certified Genetic Counselor documented in this encounter [facility] 06-08-2024 History of Present illness Narrative [...] Moderate episode of recurrent major depressive disorder ([facility]) 10/25/2023 ALICIA (generalized anxiety disorder) ([facility]) 10/25/2023 Resolved Ambulatory Problems Diagnosis Date [...] nursing note reviewed. Exam conducted with a pharmacist per diem present. Vitals: There is no height or [...] meat, and stay away from [facility]. Patient has been consulted regarding any [...] Curtis Paez DO documented in this encounter [facility] 05-09-2024 History of Present illness Narrative Reason [...] Moderate episode of recurrent major depressive disorder ([facility]) 10/25/2023 ALICIA (generalized anxiety disorder) ([facility]) 10/25/2023 Resolved Ambulatory Problems Diagnosis Date [...] nursing note reviewed. Exam conducted with a pharmacist per diem present. Vitals: There is no height or [...] meat, and stay away from [facility]. Patient has been consulted regarding any [...] Curtis Paez DO documented in this encounter [facility] 05-05-2024 History of Present illness Narrative Reason [...] Moderate episode of recurrent major depressive disorder ([facility]) 10/25/2023 ALICIA (generalized anxiety disorder) ([facility]) 10/25/2023 Resolved Ambulatory Problems Diagnosis Date [...] meat, and stay away from [facility]. Patient has also been advised to [...] Mary Quinn LPN documented in this encounter [facility] 05-03-2024 Miscellaneous Notes Patient is out of town and forgot her appointment, she stopped taking her prozac since she is she didn't know if she was able to take it or not while being . Should she still be taking it? It is okay to stop it if she is doing well without it Notified documented in this encounter [facility] 05-03-2024 Telephone encounter Note Patient is out of town and forgot her appointment, she stopped taking her prozac since she is she didn't know if she was able to take it or not while being . Should she still be taking it? [facility] 05-03-2024 Telephone encounter Note It is okay to stop it if she is doing well without it [facility] 05-03-2024 Telephone encounter Note Notified [facility] 04-27-2024 Hospital Discharge instructions Zully Vallejo MD - 04/27/2024 8:50 PM EST Tylenol as needed for pain. Take MiraLAX daily until stools are soft and then as needed. Drink plenty of fluid. Please return immediately should he develop any worsening symptoms or any other acute concerns. The following attachments cannot be sent through Care Everywhere.Abdominal Pain (Honduran)Contusion (Honduran)documented in this encounter [facility] 01-27-2024 History of Present illness Narrative [...] in the morning. documented in this encounter [facility] 10-27-2023 History of Present illness Narrative [...] in the morning. documented in this encounter [facility] 10-18-2023 Miscellaneous Notes Patient called and she [...] let her know documented in this encounter [facility] 10-18-2023 Telephone encounter Note Patient called and she needs to reschedule her appt for the 27 of October. You are going on vacation and it is for her weight loss, on 10/26 you have a dexa at 10, can I put her in at 10:15 or would that be too much, she said mornings work better. Please advise [facility] 10-18-2023 Telephone encounter Note That is okay to put in at 10:15 a.m. [facility] 10-18-2023 Telephone encounter Note Called pt to let her know [facility] 09-27-2023 History of Present illness Narrative [...] Objective Physical Exam Exam conducted with a pharmacist per diem present (Jordan Proctor MS III). Constitutional: General: [...] lesion Reassurance given [facility] Miscellaneous Notes Preoperative Education Checklist- General Surgery date: 09/03/23 Surgery time: 1330 Arrival time: 1230 1. Bring a photo ID and your insurance card with you the day of surgery. You will check in at the main lobby of the [facility]- registration desk is straight ahead as soon as you walk in. Tell them you are here for surgery. 2. If you have a Living Will/Durable Power of Industrial Engineering Technologist for Health Care that is not on [...] after you have bathed. 5. NO nail taiwanese/acrylic on at least one finger. If you are having a hand, wrist or foot surgery then all nail taiwanese and artificial/acrylic nails must be removed from [...] please call the Preadmission Testing office at [phone], Mon.-Fri. 7 a.m.-3 p.m. Leave a voicemail if needed. Pre-Surgery Instructions: Medication Instructions etonogestreL-ethinyl estradioL (NUVARING) 0.12-0.015 mg/24 hr vaginal ring Stop taking 0 days prior to procedure phentermine 37.5 MG capsule Check with physician sod sulf-pot chloride-mag sulf 1.479-0.188- 0.225 gram tablet Stop taking 0 days prior to procedure documented in this encounter [facility] 09-02-2023 Nurse Note Preoperative Education Checklist- General Surgery date: 09/03/23 Surgery time: 1330 Arrival time: 1230 1. Bring a photo ID and your insurance card with you the day of surgery. You will check in at the main lobby of the [facility]- registration desk is straight ahead as soon as you walk in. Tell them you are here for surgery. 2. If you have a Living Will/Durable Power of Industrial Engineering Technologist for Health Care that is not on [...] after you have bathed. 5. NO nail taiwanese/acrylic on at least one finger. If you are having a hand, wrist or foot surgery then all nail taiwanese and artificial/acrylic nails must be removed from [...] please call the Preadmission Testing office at [phone], Mon.-Fri. 7 a.m.-3 p.m. Leave a voicemail if needed. Pre-Surgery Instructions: Medication Instructions etonogestreL-ethinyl estradioL (NUVARING) 0.12-0.015 mg/24 hr vaginal ring Stop taking 0 days prior to procedure phentermine 37.5 MG capsule Check with physician sod sulf-pot chloride-mag sulf 1.479-0.188- 0.225 gram tablet Stop taking 0 days prior to procedure [facility] 08-25-2023 History of Present illness Narrative Subjective [...] like to go to a therapist at [facility]. She was living with someone in [place] for years and is was not a [...] therapy. She will contact her friend at [facility] and relay the name of a [...] or non compliance. documented in this encounter [facility] 08-10-2023 History of Present illness Narrative Annual Well Woman Visit 08/10/2023 Janice Serrano is a 28 y.o. 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 Follow up as needed. Next pap due per ASCCP guidelines. Discussed taking a multivitamin. Discussed Calcium and Vitamin D for prevention of osteoporosis. Discussed recommendations for HPV vaccine between 9-45 yo. [facility]. Discussed need for yearly mammogram after 40 yo. Discussed colon cancer screening recommendations to begin at 45 yo, patient to discuss with PCP. All questions answered. MD Samia REZA RN documented in this encounter [facility] 08-10-2023 Miscellaneous Notes Addended by: CASSIDY MURRAY on: 08/10/2023 10:21 AM Modules accepted: Orders documented in this encounter [facility] 08-10-2023 Note Addended by: CASSIDY MURRAY on: 08/10/2023 10:21 AM Modules accepted: Orders [facility] Evaluation note Diagnosis Moderate episode of recurrent major depressive disorder (HCC) (CMS/HCC) ALICIA (generalized anxiety disorder) (CMS/HCC) Generalized anxiety disorder documented in this encounter [facility] Healthcare[facility] note* Diagnosis Positive test- Primary examination or test, positive result [facility] Diagnosis Sore throat- Primary Acute pharyngitis Need for prophylactic vaccination against nihjonemqp-cmwulbn-xraydxzqk (DTP) Need for prophylactic vaccination with combined jrjnbripko-gkjulgw-gznevkhkn (DTP) vaccine Vitamin D deficiency Unspecified vitamin D deficiency Screening for HIV (human immunodeficiency virus) Special screening examination for other specified viral diseases Abdominal cramping- Primary Abdominal pain, unspecified site Arm contusion, right, initial encounter documented in this encounter [facility]* Diagnosis Moderate episode of recurrent major depressive disorder (CMS/HCC) ALICIA (generalized anxiety disorder) (CMS/HCC) Generalized anxiety disorder documented in this encounter [facility] Healthcare[facility] note* Diagnosis Missed menses , unspecified gestational age Encounter for supervision of normal first in first trimester BV (bacterial vaginosis) Unspecified vaginitis and vulvovaginitis documented in this encounter [facility]* Diagnosis Missed menses 9 weeks gestation of H/O LEEP documented in this encounter [facility]* Diagnosis Encounter for gynecological examination without abnormal finding- Primary Screening for STD (sexually transmitted disease) Pap smear, as part of routine gynecological examination Screening for malignant neoplasm of the cervix Encounter for initial prescription of vaginal ring hormonal contraceptive [facility] Diagnosis Rectal bleeding- Primary Hemorrhage of rectum and anus Mild major depression ([facility]) Major depressive disorder, single episode, mild Class 1 obesity due to excess calories with body mass index (BMI) of 31.0 to 31.9 in adult, unspecified whether serious comorbidity present documented [facility] Diagnosis Well adult health check- Primary Unspecified general medical examination Class 1 obesity due to excess calories without serious comorbidity with body mass index (BMI) of 31.0 to 31.9 in adult Rectal bleeding Hemorrhage of rectum and anus Onychomycosis Dermatophytosis of nail Benign skin lesion [facility]* Diagnosis Class 1 obesity due to excess calories with body mass index (BMI) of 31.0 to 31.9 in adult, unspecified whether serious comorbidity present [facility]* Diagnosis Overweight- Primary Anxiety Anxiety state, unspecified Depression, unspecified depression type Onychomycosis Dermatophytosis of nail documented [facility]* Diagnosis Current episode of major depressive disorder without prior episode, unspecified depression episode severity- Primary Overweight [facility]* Diagnosis Moderate episode of recurrent major depressive disorder (CMS/HCC) ALICIA (generalized anxiety disorder) (CMS/HCC) Generalized anxiety disorder documented in this encounter [facility]* Diagnosis 13 weeks gestation of Second trimester state, incidental History of loop electrosurgical excision procedure (LEEP) of cervix affecting , antepartum documented in this encounter [facility]* Diagnosis 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 Abnormal genetic test during Family history of developmental delay Family history of spina bifida Family history of congenital anomalies [facility] Diagnosis 17 weeks gestation of Second trimester state, incidental Well woman exam with routine gynecological exam Routine gynecological examination Exposure to STD Vaginal discharge Leukorrhea, not specified as infective documented in this encounter [facility] note* Diagnosis Moderate episode of recurrent major depressive disorder (CMS/HCC) ALICIA (generalized anxiety disorder) (CMS/HCC) Generalized anxiety disorder documented in this encounter [facility] note* Diagnosis 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 [facility] Diagnosis 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 Abnormal genetic test during documented [facility]* Diagnosis Chlamydia trachomatis infection Chlamydia trachomatis infection of unspecified site 21 weeks gestation of Second trimester state, incidental Diabetes mellitus screening Screening for diabetes mellitus documented in this encounter [facility]* Diagnosis Cystic fibrosis carrier, antepartum LGSIL on Pap smear of cervix documented in this encounter [facility] note* Diagnosis Second trimester state, incidental 25 weeks gestation of documented in this encounter [facility]* Diagnosis 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 Abnormal genetic test during documented [facility] Diagnosis 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 Encounter for consultation documented [facility]* Diagnosis Sore throat- Primary Acute pharyngitis Need for prophylactic vaccination against qmcgbyppux-gzczomx-riwhxwuxi (DTP) Need for prophylactic vaccination with combined ptcinkduti-vhcmddn-bklplgoxf (DTP) vaccine Vitamin D deficiency Unspecified vitamin D deficiency Screening for HIV (human immunodeficiency virus) Special screening examination for other specified viral diseases Blunt trauma to abdomen, initial encounter- Primary [facility] Anxiety, generalized- Primary Second trimester (HHS-HCC) state, incidental 27 weeks gestation of (HHS-HCC) Cystic fibrosis carrier, antepartum (HHS-HCC) documented in this encounter [facility] note* Diagnosis 29 weeks gestation of - Primary Cystic fibrosis carrier Maternal care for other (suspected) abnormality and damage, gastrointestinal anomalies, not applicable or unspecified documented [facility]* Diagnosis Third trimester (HHS-HCC) state, incidental Cystic fibrosis carrier, antepartum (HHS-HCC) Moderate episode of recurrent major depressive disorder (HCC) History of loop electrosurgical excision procedure (LEEP) of cervix affecting , antepartum (HHS-HCC) 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 30 weeks gestation of (HHS-HCC) Maternal care for other (suspected) abnormality and damage, gastrointestinal anomalies, not applicable or unspecified ([facility]) documented in this encounter [facility]* Diagnosis Abnormal genetic test during - Primary Maternal care for other (suspected) abnormality and damage, gastrointestinal anomalies, not applicable or unspecified Cystic fibrosis carrier documented [facility] note[facility] assessment information available [facility] Work Phone: Evaluation note* Diagnosis Third trimester (HHS-HCC) state, incidental 32 weeks gestation of (HHS-HCC) H/O LEEP Cystic fibrosis carrier, antepartum ([facility]) 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 documented in this encounter [facility]* Diagnosis Supervision of high risk in third trimester- Primary [facility]* Diagnosis Cystic fibrosis carrier, antepartum- Primary Supervision of high risk in third trimester Overweight [facility] Diagnosis Supervision of high risk in third trimester- Primary Cystic fibrosis carrier, antepartum Abnormal genetic test during Maternal care for other (suspected) abnormality and damage, gastrointestinal anomalies, not applicable or unspecified Cystic fibrosis carrier Family history of developmental delay Family history of spina bifida Family history of congenital anomalies documented [facility] Diagnosis Cystic fibrosis carrier, antepartum- Primary Maternal care for other (suspected) abnormality and damage, gastrointestinal anomalies, not applicable or unspecified Overweight documented [facility]* Diagnosis Maternal care for other (suspected) abnormality and damage, gastrointestinal anomalies, not applicable or unspecified- Primary Major depressive disorder with single episode, in remission Anxiety and depression Cystic fibrosis carrier, antepartum care, first in third trimester History of maternal Chlamydia infection, currently in third trimester [facility] Diagnosis Third trimester - Primary state, incidental Maternal care for other (suspected) abnormality and damage, gastrointestinal anomalies, not applicable or unspecified Cystic fibrosis carrier, antepartum care, first in third trimester Chlamydia infection affecting , antepartum Anxiety and depression Supervision of high risk in third trimester [facility] Diagnosis Abnormal ultrasonic finding on screening of mother, antepartum- Primary [facility]* Diagnosis Maternal care for other (suspected) abnormality and damage, gastrointestinal anomalies, not applicable or unspecified- Primary Cystic fibrosis carrier, antepartum care, first in third trimester Chlamydia infection affecting , antepartum documented [facility]* Diagnosis Abnormal ultrasonic finding on screening of mother, antepartum- Primary Supervision of high risk in third trimester Cystic fibrosis carrier, antepartum [facility] Diagnosis 38 weeks gestation of - Primary Cystic fibrosis carrier, antepartum Abnormal genetic test during Obesity affecting in third trimester, unspecified obesity type documented in this encounter [facility]ructionsNot on filedocumented in this encounter [facility]ructionsNot on filedocumented in this encounter [facility]InstructionsNot on filedocumented in this encounter [facility] [...] Care Everywhere. * Your baby's movement before (Honduran) documented in this encounterProSouthern [facility] CenterRhapso Health SystemInstructionsNot on file documented in this encounterProMediRhapso Health SystemInstructionsNot on file documented in this encounterProMedica Health SystemInstructionsNot on file documented in this encounterProMedica Health SystemInstructionsNot on file documented in this encounterProMedica Health SystemInstructions* Attachments The following attachments cannot be sent through Care Everywhere. * Choosing control (Honduran) documented in this encounterProSouthern [facility] Medical Centerca Health SystemInstructionsNot on file documented in this encounterProMediRhapso Health SystemInstructionsNot on file documented in this encounterProMediRhapso Health SystemInstructionsNot on file documented in this encounterProMeditn Health SystemInstructionsNot on file documented in this encounterProGeorgiana Medical Center Health SystemInstructions* Attachments The following attachments cannot be sent through Care Everywhere. * Your baby's movement before (Honduran) documented in this encounterProSouthern [facility] CenterA [facility]LE [facility] SystemReason for referral (narrative)* Consultation (Routine) - Pending Review Specialty Diagnoses / Procedures Referred By Thom patel Referred To Contact Psychology / Family Medicine Diagnoses Mild major depression ([facility]) [address], [address], [place] [address] Zz Do Not Use [facility] Rory Zee [address] [place] [address] Referral ID Status Reason Start Date Expiration Date Visits Requested Visits Authorized [id number] Pending Review Specialty Services Required 08/25/2023 08/24/2024 1 1 * Gastroenterology (Routine) - Pending Review Specialty Diagnoses / Procedures Referred By Contac t Referred To Contact Diagnoses Rectal bleeding Procedures Colonoscopy [address], [address], [place] [address] Referral ID Status Reason Start Date Expiration Date V isits Requested Visits Authorized [id number] Pending Review 08/25/2023 08/24/2024 1 1 [facility])No reason for referral information availableHol[facility] Work Phone: Reason for visit Narrative* Diagnostic Imaging (Routine) - Pending Review Specialty Diagnoses / Procedures Referred By Contac t Referred To Contact Maternal and Medicine Diagnoses Abnormal genetic test during Screening, , for anatomic survey Procedures US MFM with or without consult US MFM with or without consult Edil Snow MD [address] [facility], [address] [place] [id number] Phone: tel: fax: Maternal- Medicine at [facility] [address] [place] [address] Phone: tel: fax: Referral ID Status Reason Start Date Expiration Date V isits Requested Visits Authorized [id number] Pending Review 06/15/2024 06/15/2025 1 1 [facility] Summary Purpose Family History No Family History Records FoundNo Family History Records FoundNo Family History Records FoundNo Family History Records Found Advance Directives No Advanced Directives Records Found Advance Directive Response Recorded Date/ Time Advance Directives No October 17 12:05pm Chief Complaint and Reason for Visit Chief Complaint Admit Date Sore throat October 17, 2024 12:0 6pm Additional Source Comments Care Teams (unrecognized sec tion and content) Recreation Program Specialist Relationship Specialty Start Date End Date Armen Street DO [address] [place] [address] [address] [place] [address] PCP - General Family Medicine 08/25/23 Recreation Program Specialist Relationship Specialty Start Date End Date [address] DO [address] [place] [address] PCP - General Family Medicine 04/27/24 Recreation Program Specialist Relationship Specialty Start Date End Date Emi Bronson [facility] [address] [place] [address] Behavioral Health 04/12/24 Recreation Program Specialist Relationship Specialty Start Date End Date Emi Bronson [facility] [address] [place] [address] Behavioral Health 04/12/24 Recreation Program Specialist Relationship Specialty Start Date End Date Armen [address] DO [address], [place] [address] PCP - General Family Medicine 08/25/23 Recreation Program Specialist Relationship Specialty Start Date End Date Armen Street MD [address], [place] [address] PCP - General Family Medicine 05/05/24 Emi Bronson [facility] [address] [place] [address] Behavioral Health 04/12/24 Recreation Program Specialist Relationship Specialty Start Date End Date Armen Street MD [address], [place] [address] PCP - General Family Medicine 05/05/24 Emi Bronson [facility] [address] [place] [address] Behavioral Health 04/12/24 Recreation Program Specialist Relationship Specialty Start Date End Date Armen Street MD [address], [place] [address] PCP - General Family Medicine 05/05/24 Emi Bronson [facility] [address] [place] [address] Behavioral Health 04/12/24 Recreation Program Specialist Relationship Specialty Start Date End Date Armen Street MD [address], [place] [address] PCP - General Family Medicine 05/05/24 Emi Bronson [facility] [address] [place] [address] Behavioral Health 04/12/24 Recreation Program Specialist Relationship Specialty Start Date End Date Armen [address] DO [address], [place] [address] PCP - General Family Medicine 08/25/23 Recreation Program Specialist Relationship Specialty Start Date End Date Princess Armen Steele [address] [place] [address] PCP - General Family Medicine 08/25/23 Recreation Program Specialist Relationship Specialty Start Date End Date Princess Aremn Cedric [address] [place] [address] PCP - General Family Medicine 08/25/23 Recreation Program Specialist Relationship Specialty Start Date End Date Princess Armen Steele [address] [place] [address] PCP - General Family Medicine 08/25/23 Recreation Program Specialist Relationship Specialty Start Date End Date Armen [address] DO [address] [place] [address] PCP - General Family Medicine 08/25/23 Recreation Program Specialist Relationship Specialty Start Date End Date Princess Armen Steele [address] [place] [address] PCP - General Family Medicine 08/25/23 Recreation Program Specialist Relationship Specialty Start Date End Date Armen [address] DO [address] [place] [address] PCP - General Family Medicine 08/25/23 Recreation Program Specialist Relationship Specialty Start Date End Date Armen Street MD [address] [place] [address] PCP - General Family Medicine 05/05/24 Emi Bronson [facility] [address] [place] [address] Behavioral Health 04/12/24 Recreation Program Specialist Relationship Specialty Start Date End Date Armen [address] MD [address], [place] [address] PCP - General Family Medicine 05/05/24 Emi Bronson [facility] [address] [place] [address] Behavioral Health 04/12/24 Recreation Program Specialist Relationship Specialty Start Date End Date Armen [address] MD [address], [place] [address] PCP - General Family Medicine 05/05/24 Emi Bronson [facility] [address] [place] [address] Behavioral Health 04/12/24 Recreation Program Specialist Relationship Specialty Start Date End Date [address] DO [address], [place] [address] PCP - General Family Medicine 08/25/23 Recreation Program Specialist Relationship Specialty Start Date End Date [address] DO [address], [place] [address] PCP - General Family Medicine 08/25/23 Recreation Program Specialist Relationship Specialty Start Date End Date Armen [address] MD [address] [place] [address] PCP - General Family Medicine 05/05/24 Emi Bronson [facility] [address] [place] [address] Behavioral Health 04/12/24 Recreation Program Specialist Relationship Specialty Start Date End Date [address] MD [address] [place] [address] PCP - General Family Medicine 05/05/24 Emi Bronson [facility] [address] [place] [address] Behavioral Health 04/12/24 Recreation Program Specialist Relationship Specialty Start Date End Date Armen Street MD [address] [place] [address] PCP - General Family Medicine 05/05/24 Emi Bronson [facility] [address] [place] [address] Behavioral Health 04/12/24 Recreation Program Specialist Relationship Specialty Start Date End Date Armen Street MD [address] [place] [address] PCP - General Family Medicine 05/05/24 Emi Bronson [facility] [address] [place] [address] Behavioral Health 04/12/24 Recreation Program Specialist Relationship Specialty Start Date End Date Armen Street DO [address], [place] [address] PCP - General Family Medicine 08/25/23 Recreation Program Specialist Relationship Specialty Start Date End Date Armen [address] DO [address], [place] [address] PCP - General Family Medicine 08/25/23 Recreation Program Specialist Relationship Specialty Start Date End Date Armen Street MD [address] [place] [address] PCP - General Family Medicine 05/05/24 Emi Bronson [facility] [address] [place] [address] Behavioral Health 04/12/24 Recreation Program Specialist Relationship Specialty Start Date End Date Armen Street MD [address] [place] [address] PCP - General Family Medicine 05/05/24 Emi Bronson [facility] [address] [place] [address] Behavioral Health 04/12/24 Recreation Program Specialist Relationship Specialty Start Date End Date Armen [address] DO [address], [place] [address] PCP - General Family Medicine 08/25/23 Recreation Program Specialist Relationship Specialty Start Date End Date Armen Street MD [address] [place] [address] PCP - General Family Medicine 05/05/24 Emi Bronson [facility] [address] [place] [address] Behavioral Health 04/12/24 Recreation Program Specialist Relationship Specialty Start Date End Date Armen [address] DO [address], [place] [address] PCP - General Family Medicine 08/25/23 Recreation Program Specialist Relationship Specialty Start Date End Date Armen [address] DO [address] [place] [address] PCP - General Family Medicine 04/27/24 Recreation Program Specialist Relationship Specialty Start Date End Date Armen Street MD [address] [place] [address] PCP - General Family Medicine 05/05/24 Emi Bronson [facility] [address] [place] [address] Behavioral Health 04/12/24 Recreation Program Specialist Relationship Specialty Start Date End Date Armen [address] DO [address], [place] [address] PCP - General Family Medicine 08/25/23 Recreation Program Specialist Relationship Specialty Start Date End Date Armen Street MD PCP - General Family Medicine 05/05/24 Recreation Program Specialist Relationship Specialty Start Date End Date Armen Street MD PCP - General Family Medicine 05/05/24 Recreation Program Specialist Relationship Specialty Start Date End Date Armen Street DO [address] [place] [address] PCP - General Family Medicine 08/25/23 Recreation Program Specialist Relationship Specialty Start Date End Date Armen Street DO [address] [place] [address] PCP - General Family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
[2024-11-30 14:44] VITALS: BP 144/81; PULSE 88
== END 2024-11-30 15:10 | disposition home or self-care (01) ==
LOC: US 13:59 → FBC 14:01
PROVIDERS: PCP Family Medicine; Visit Provider Obstetrics & Gynecology
DX: O43.893 Other placental disorders, third trimester (principal); Z3A.30 30 weeks gestation of pregnancy
CPT/HCPCS: 76818

== ENCOUNTER 2024-12-04 14:52 | Outpatient (OUT) | payer OTHER, SELFPAY ==
--- OUTSIDE RECORDS SUMMARY | 2024-12-04 14:55 | XMS_ITS | CCD ---
Demographics Address [address] [place] [address] Home Phone Mobile Phone Preferred Language en Marital Status Single Methodist Affiliation Unknown Race White Ethnic Group Not or Lati no Author Organization [facility] Care Team Providers Care Tie Hacker Name Role Phone Unavailable Primary Care Provider Unavailjob e Armen Street DO Primary Care Provider Furpaulineng Armen [place] Primary Care Provider [facility] Armen [facility] MD Primary Care Provider Unavailable Primary Care Provider UnavailArmen Rodriguez MD Primary Care Provider Furlong Armen [place] Primary Care Provider [address]EN [address] Attending Unavailable MASOODLONGARMEN Referring Unavailable FURLONG, ARMEN Steele Primary Care Unavailable FURLONG, ARMEN Steele Attending Unavailable FURLONGARMEN Referring Unavailable FURLONG, ARMEN Steele Primary Care Unavailable FURLONGARMEN Attending Unavailable MASOODLONGARMEN Referring Unavailable FURLONG, ARMEN Steele Primary Care Unavailable CURTIS PAEZ Referring Unavailable MASOODLONG, ARMEN Steele Primary Care Unavailable D'VICTORINO TYSON Admitting Unavailable D'VICTORINO TYSON Attending Unavailable MASOODLOARMEN TRISTAN Primary Care Unavailable ZULLY VALLEJO Attending Unavailable MASOODLONG, ARMEN Steele Primary Care Unavailable MASOODLONG, ARMEN Steele Primary Care Unavailable Armen Street MD Primary Care Provider Esther Maldonado APRN Attending Provider Armen Street DO Primary Care Provider [phone] TIFFANY ORNELAS Referring Unavailabl e [address] Primary Care Unavailable FURLONG, ARMEN G Primary Care Unavailable JEANNINE, CURTIS R Referring Unavailable FURLONG, ARMEN G Primary Care Unavailable JEANNINE, CURTIS R Referring Unavailable KATYLYNDSEY Attending Unavailable FURLONG, ARMEN G Primary Care [...] G Primary Care Unavailable FURLONG, ARMEN G Referring Unavailable RAIN IVERSON Attending Unavail able FURLONG, ARMEN G Primary Care Unavailable RAIN IVERSON Referring Unavail able FURLONG, ARMEN G Primary Care Unavailable RAIN IVERSON Referring Unavail able FURLONG, ARMEN G Primary Care Unavailable RAIN IVERSON Referring Unavail able FURLONG, ARMEN G Primary Care Unavailable JEANNINE, CURTIS R Referring Unavailable FURLONG, ARMEN G Primary Care Unavailable JEANNINE, CURTIS R Referring Unavailable ANGELA GARDNER Attending Unavailable FURLONG, ARMEN G Primary Care Unavailable FURLONG, ARMEN G Referring Unavailable TIFFANY ORNELAS Attending Unavailabl e FURLONG, ARMEN G Primary Care Unavailable RAIN IVERSON Referring Unavail able ANGELA GARDNER Attending Unavailable FURLONG, ARMEN G Primary Care Unavailable RAIN IVERSON Referring Unavail able FURLONG, ARMEN G Referring Unavailable FURLONG, ARMEN G Primary Care Unavailable GIACOMO HORNE Attending Unavailable FURLONG, ARMEN G Primary Care Unavailable GIACOMO HORNE Attending Unavailable GIACOMO HORNE Referring Unavailable FURLONG, ARMEN G Primary Care Unavailable TIFFANY ORNELAS Referring EDIL Alvarado Attending Unavailable [address]EN [address] Primary Care Unavailable TIFFANY ORNELAS Referring ARMEN Tobin Primary Care Unavailable TIFFANY ORNELAS Attending GIACOMO Gordon Referring Unavailable Allergies Allergy Classification Reported Allergen(s) Allergy Type Date of Onset Reaction(s) Facility (19 sources) Penicillins; Translations: [PENICILLINS] Propensity to adverse reactions to drug 9 Other (See Comments) [facility] (20 sources) Penicillin G Drug Allergy 5 Rash [facility] (20 sources) Penicillins Propensity to adverse reactions to drug 4 Other (See Comments) [facility] (20 sources) Penicillins Propensity to adverse reactions 9 Hives, Itching [facility] Medications Current Medications Medication Drug Class(es) Dates Sig (Normalized) Sig (Original) azithromycin 250 mg oral tablet (2 sources) Macrolide Antimicrobial Start: 08-15-2018 azithromycin (ZITHROMAX) 250 MG tablet 08/15/2018 Active famotidine 20 mg oral tablet (6 sources) Histamine-2 Receptor Antagonist Start: 11-17-2024 take [...] mouth once daily. Active polyethylene glycol 3350 22768 mg powder for oral solution (20 sources) [...] in 24 hours. 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, unspecified, third trimester] Onset: 09-21-2024 09-21-2024 Episodic Other complications of (9 sources) Chlamydia trachomatis infection in ; Translations: [...] of ] 05-09-2024 Episodic Residual codes; unclassified (14 sources) History of loop electrosurgical excision procedure; [...] of ] 09-18-2024 Episodic Residual codes; unclassified (16 sources) Gestation period, 29 weeks; Translations: [29 [...] source) Routine Visit Onset: 10-19-2024 Viral infection (19 sources) Herpes simplex; Translations: [Herpesviral infection, unspecified] [...] Test Name Value Interpretation Reference Range Facility US OB BPP W NON-STRESS on 12-01-2024 [place] [address] Ultrasound Report Signed Patient: SAPNA SERRANO MR#: [id number] : 1995 Acct:[id number] Age/Sex: 29 / F ADM Date: 11/30/24 Loc: US Attending Dr: Curtis Paez D.O. Ordering Physician: Curtis Paez D.O. Date of Service: 11/30/24 Procedure(s): US OB BPP w non-stress Accession Number(s): [id number] cc: [address] Corey D.O. [address] [address] Patient Name: SAPNA SERRANO MRN: [facility]:[id number] date: 1995 Sex: F Assigned Patient Location: [facility] Current Patient Location: Accession/Order Number: [id number] Exam Date: 11/30/2024 14:07 Report Date: 12/01/2024 00:45 At the request of: CURTIS PAEZ DO Procedure: US OB BPP w non-stress US OB BPP w non-stress 11/30/2024 2:42 PM SIGNS AND SYMPTOMS: CYSTIC FIBROSIS CARRIER PROTOCOL: Transabdominal sonographic imaging of the gravid uterus COMPARISON: None FINDINGS: heart rate: 135 bpm Amniotic fluid index: 13.44 cm. The deeper surgical pocket measures 5.2 cm. Estimated gestational age: 30 weeks and 2 days Biophysical profile: breathing movements: 22 tone: 22 Amniotic fluid volume: 22 US/US OB BPP w non-stress IMPRESSION: Biophysical profile: 11/10 Impression dictated by: Geoff Roca M.D. 12/01/2024 12:45 AM Dictation Location: [place] [address] Electronically authenticated by: [id number] Y Date: 12/01/2024 00:45 Dictated By: Geoff Roca M.D. Signed By: 12/01/2447 DD/ TD/TT: Cloth Shearer: [facility] Radiology, Radiologist, MD - 12/01/2024 [place] [address] Ultrasound Report Signed Patient: SAPNA SERRANO MR#: [id number] : 1995 Acct:[id number] Age/Sex: 29 / F ADM Date: 11/30/24 Loc: US Attending Dr: Curtis Paez D.O. Ordering Physician: Curtis Paez D.O. Date of Service: 11/30/24 Procedure(s): US OB BPP w non-stress Accession Number(s): [id number] cc: [address] Corey D.O. The [place] [address] Patient Name: SAPNA SERRANO MRN: [facility]:[id number] date: 1995 Sex: F Assigned Patient Location: [facility] Current Patient Location: Accession/Order Number: [id number] Exam Date: 11/30/2024 14:07 Report Date: 12/01/2024 00:45 At the request of: CURTIS PAEZ DO Procedure: US OB BPP w non-stress US OB BPP w non-stress 11/30/2024 2:42 PM SIGNS AND SYMPTOMS: CYSTIC FIBROSIS CARRIER PROTOCOL: Transabdominal sonographic imaging of the gravid uterus COMPARISON: None FINDINGS: heart rate: 135 bpm Amniotic fluid index: 13.44 cm. The deeper surgical pocket measures 5.2 cm. Estimated gestational age: 30 weeks and 2 days Biophysical profile: breathing movements: 2 tone: 2/2 Amniotic fluid volume: 2/2 US/US OB BPP w non-stress IMPRESSION: Biophysical profile: 11/10 Impression dictated by: Geoff Roca M.D. 12/01/2024 12:45 AM Dictation Location: [place] [address] Electronically authenticated by: [id number] Y Date: 12/01/2024 00:45 Dictated By: Geoff Roca M.D. Signed By: 12/01/2447 DD/ TD/TT: Cloth Shearer: [facility] Radiology Study observation (narrative) [facility] US OB BPP W NON-STRESS Ordered By: Radiologist Radiology on 12-01-2024 [facility] [employer] Work Phone: US OB BPP W NON-STRESS on 11-23-2024 [place] [address] Ultrasound Report Signed Patient: SAPNA SERRANO MR#: [id number] : 1995 Acct:[id number] Age/Sex: 29 / F ADM Date: 11/23/24 Loc: [facility] 250-[address]: Curtis Peaz D.O. Ordering Physician: Curtis Paez D.O. Date of Service: 11/23/24 Procedure(s): US OB BPP w non-stress Accession Number(s): [id number] cc: [address] Corey D.O. The [place] [id number] Patient Name: SAPNA SERRANO MRN: [facility]:[id number] date: 1995 Sex: F Assigned Patient Location: [facility] Current Patient Location: [facility] Accession/Order Number: [id number] Exam Date: 11/23/2024 14:08 Report Date: 11/23/2024 [...] Roca M.D. 11/23/2024 2:51 PM Dictation Location: [place] [address] Electronically authenticated by: [id number] Y Date: 11/23/2024 14:51 Dictated By: Geoff Roca M.D. Signed By: 11/23/24 1454 DD/ 1451 TD/TT: Cloth Shearer: [facility] Radiology, Radiologist, MD - 11/23/[address] [address] Ultrasound Report Signed Patient: SAPNA SERRANO MR#: [id number] : 1995 Acct:[id number] Age/Sex: 29 / F ADM Date: 11/23/24 Loc: [facility] 250-[address]: Curtis Paez D.O. Ordering Physician: Curtis Paez D.O. Date of Service: 11/23/24 Procedure(s): US OB BPP w non-stress Accession Number(s): [id number] cc: [address] Corey D.O. [place] [id number] Patient Name: SAPNA SERRANO MRN: [facility]:[id number] date: 1995 Sex: F Assigned Patient Location: [facility] Current Patient Location: [facility] Accession/Order Number: [id number] Exam Date: 11/23/2024 14:08 Report Date: 11/23/2024 [...] Roca M.D. 11/23/2024 2:51 PM Dictation Location: [place] [address] Electronically authenticated by: [id number] Y Date: 11/23/2024 14:51 Dictated By: Geoff Roca M.D. Signed By: 11/23/24 1454 DD/ 1451 TD/TT: Cloth Shearer: [facility] [employer] Radiology Study observation (narrative) [facility] US OB BPP W NON-STRESS Ordered By: Radiologist Radiology on 11-23-2024 [facility] [employer] Work Phone: STREP B SCREENon 11-17-2024 STREP B SCREEN CULTURE RESULTS NEGATIVE FOR GROUP B STREPTOCOCCUS BY NUCLEIC ACID AMPLIFICATION Normal [facility] Comment on above: Performed By: #### S BS #### [facility] (TT) [address] [place] [address] VIR US OB BPP W NON-STRESS on 11-16-[address] [address] Ultrasound Report Signed Patient: SAPNA SERRANO MR#: [id number] : 1995 Acct:[id number] Age/Sex: 29 / F ADM Date: 11/16/24 Loc: [facility] 250- Attending Dr: Curtis Paez D.O. Ordering Physician: Curtis Paez D.O. Date of Service: 11/16/24 Procedure(s): US OB BPP w non-stress Accession Number(s): [id number] cc: [address] ; Curtis Paez D.O. [address] [address] Patient Name: SAPNA SERRANO MRN: [facility]:[id number] date: 1995 Sex: F Assigned Patient Location: [facility] Current Patient Location: [facility] Accession/Order Number: [id number] Exam Date: 11/16/2024 15:41 Report Date: 11/16/2024 15:42 At the request of: CURTIS PAEZ DO Procedure: US OB BPP w non-stress Biophysical profile. Reason for exam: Cystic fibrosis COMPARISON: 11/09/2024 TECHNIQUE: Transabdominal imaging of the gravid uterus was obtained. FINDINGS: The stope miner reports a BPP of 8 out of 8. NAYE is normal at 13.5 cm. heart rate 139 bpm. US/US OB BPP w non-stress IMPRESSION: BPP 8 out of 8. Impression dictated by: Hugo Atkins Jr., D.O. 11/16/2024 3:42 PM Dictation Location: [place] [address] Electronically authenticated by: [id number] Y Date: 11/16/2024 15:42 Dictated By: Hugo Atkins M.D. Signed By: 11/16/24 1544 DD/ 1542 TD/TT: Cloth Shearer: [facility] Radiology, Radiologist, MD [place] 11/17/2024 [place] [address] Ultrasound Report Signed Patient: SAPNA SERRANO MR#: [id number] : 1995 Acct:[id number] Age/Sex: 29 / F ADM Date: 11/16/24 Loc: [facility] 250-[address]: Curtis Paez D.O. Ordering Physician: Curtis Paez D.O. Date of Service: 11/16/24 Procedure(s): US OB BPP w non-stress Accession Number(s): [id number] cc: [address] ; Curtis Paez D.O. The [place] [address] Patient Name: SAPNA SERRANO MRN: [facility]:[id number] date: 1995 Sex: F Assigned Patient Location: [facility] Current Patient Location: [facility] Accession/Order Number: [id number] Exam Date: 11/16/2024 15:41 Report Date: 11/16/2024 15:42 At the request of: CURTIS PAEZ DO Procedure: US OB BPP w non-stress Biophysical profile. Reason for exam: Cystic fibrosis COMPARISON: 11/09/2024 TECHNIQUE: Transabdominal imaging of the gravid uterus was obtained. FINDINGS: The stope miner reports a BPP of 8 out of 8. NAYE is normal at 13.5 cm. heart rate 139 bpm. US/US OB BPP w non-stress IMPRESSION: BPP 8 out of 8. Impression dictated by: Hugo Atkins Jr., D.O. 11/16/2024 3:42 PM Dictation Location: [place] [address] Electronically authenticated by: [id number] Y Date: 11/16/2024 15:42 Dictated By: Hugo Atkins M.D. Signed By: 11/16/24 1544 DD/ 154 TD/TT: Cloth Shearer: [facility] Radiology Study observation (narrative) [facility] US OB BPP W NON-STRESS Ordered By: Radiologist Radiology on 11-16-2024 [facility] Work Phone: US OB BPP W NON-STRESS on 11-09-2024 [place] [address] Ultrasound Report Signed Patient: SAPNA SERRANO MR#: [id number] : 1995 Acct:[id number] Age/Sex: 29 / F ADM Date: 11/09/24 Loc: [facility] 250-[address]: Curtis Paez D.O. Ordering Physician: Curtis Paez D.O. Date of Service: 11/09/24 Procedure(s): US OB BPP w non-stress Accession Number(s): [id number] cc: [address] ; Curtis Paez D.O. [place] [id number] Patient Name: SAPNA SERRANO MRN: [facility]:[id number] date: 1995 Sex: F Assigned Patient Location: [facility] Current Patient Location: [facility] Accession/Order Number: [id number] Exam Date: 11/09/2024 11:36 Report Date: 11/09/2024 [...] Rahman M.D. 11/09/2024 11:37 AM Dictation Location: [place] [address] Electronically authenticated by: [id number] Y Date: 11/09/2024 11:37 Dictated By: Laura Rahman M.D. Signed By: 11/09/24 1140 DD/ 1137 TD/TT: Cloth Shearer: [facility] Radiology, Radiologist, MD - 11/09/2024 [place] [address] Ultrasound Report Signed Patient: SAPNA SERRANO MR#: [id number] : 1995 Acct:[id number] Age/Sex: 29 / F ADM Date: 11/09/24 Loc: [facility] 250-[address]: Curtis Paez D.O. Ordering Physician: Curtis Paez D.O. Date of Service: 11/09/24 Procedure(s): US OB BPP w non-stress Accession Number(s): [id number] cc: [address] Corey D.O. The [place] [address] Patient Name: SAPNA SERRANO MRN: [facility]:[id number] date: 1995 Sex: F Assigned Patient Location: [facility] Current Patient Location: [facility] Accession/Order Number: [id number] Exam Date: 11/09/2024 11:36 Report Date: 11/09/2024 11:37 At the request of: CURTIS PAEZ DO Procedure: US OB BPP w non-stress BIOPHYSICAL PROFILE: CLINICAL INFORMATION: CYSTIC FIBROSIS CARRIER O09.899 COMPARISON: 11/02/2024 There is a single live intrauterine gestation in cephalic presentation. The reported gestational age is 35 weeks 2 days. The heart rate ricmoqed765 beats per minute. FINDINGS: TONE: 1 or [...] Rahman M.D. 11/09/2024 11:37 AM Dictation Location: [employer] Electronically authenticated by: [id number] Y Date: 11/09/2024 11:37 Dictated By: Laura Rahman M.D. Signed By: 11/09/24 1140 DD/ 1137 TD/TT: Cloth Shearer: [facility] Radiology Study observation (narrative) [facility] OB BPP W NON-STRESS Ordered By: Radiologist Radiology on 11-09-2024 [facility] Work Phone: C. trachomatis DNA ALLISON+probe Ql (Unsp spec)Ordered By: Sindhu Blackman on 11-05-2024 Interpretation and review of laboratory results Normal [facility] N. gonorrhoeae DNA ALLISON+probe Ql (Unsp spec) Negative Negative [facility] Comment on above: Neisseria gonorrhoea e not detected by nucleic acid amplification. This does not exclude the possibility of infection because results are dependent on adequate specimen collection. [facility] Chlamydia/Gonorrhoeae by PCR , UrineOrdered By: Sindhu Blackman on 11-05-2024 C. trachomatis DNA ALLISON+probe Ql (Unsp spec) Negative Negative [facility] Comment on above: Chlamydia trachomati s [...] dependent on adequate specimen collection. Normal [facility] Comment on above: Performed By: #### C GUPCR #### [facility] ([facility]) [address] [place] [address] VIR US OB BPP W NON-STRESS on 11-02-2024 [place] [address] Ultrasound Report Signed Patient: SAPNA SERRANO MR#: [id number] : 1995 Acct:[id number] Age/Sex: 29 / F ADM Date: 11/02/24 Loc: [facility] 250-[address]: Curtis Paez D.O. Ordering Physician: Curtis Paez D.O. Date of Service: 11/02/24 Procedure(s): US OB BPP w non-stress Accession Number(s): [id number] cc: [address] ; Curtis Paez D.O. [place] [address] Patient Name: SAPNA SERRANO MRN: [facility]:[id number] date: 1995 Sex: F Assigned Patient Location: [facility] Current Patient Location: [facility] Accession/Order Number: [id number] Exam Date: 11/02/2024 11:40 Report Date: 11/02/2024 11:42 At the request of: CURTIS PAEZ DO Procedure: US OB BPP w non-stress Biophysical profile. Reason for exam: Cystic fibrosis COMPARISON: 10/26/2024 TECHNIQUE: Transabdominal imaging of the gravid uterus was obtained. FINDINGS: The stope miner reports a BPP of 8 out of 8. NAYE is normal at 15.9 cm. heart rate 153 bpm. US/US OB BPP w non-stress IMPRESSION: BPP 8 out of 8. Impression dictated by: Hugo Atkins Jr., D.O. 11/02/2024 11:42 AM Dictation Location: [place] [address] Electronically authenticated by: [id number] Y Date: 11/02/2024 11:42 Dictated By: Hugo Atkins M.D. Signed By: 11/02/24 1144 DD/ 1142 TD/TT: Cloth Shearer: [facility] Radiology, Radiologist, - 11/02/2024 [place] [address] Ultrasound Report Signed Patient: SAPNA SERRANO MR#: [id number] : 1995 Acct:[id number] Age/Sex: 29 / F ADM Date: 11/02/24 Loc: [facility] 250-[address]: Curtis Paez D.O. Ordering Physician: Curtis Paez D.O. Date of Service: 11/02/24 Procedure(s): US OB BPP w non-stress Accession Number(s): [id number] cc: [address] Corey D.O. The [place] [address] Patient Name: SAPNA SERRANO MRN: [facility]:[id number] date: 1995 Sex: F Assigned Patient Location: [facility] Current Patient Location: [facility] Accession/Order Number: [id number] Exam Date: 11/02/2024 11:40 Report Date: 11/02/2024 11:42 At the request of: CURTIS PAEZ DO Procedure: US OB BPP w non-stress Biophysical profile. Reason for exam: Cystic fibrosis COMPARISON: 10/26/2024 TECHNIQUE: Transabdominal imaging of the gravid uterus was obtained. FINDINGS: The stope miner reports a BPP of 8 out of 8. NAYE is normal at 15.9 cm. heart rate 153 bpm. US/US OB BPP w non-stress IMPRESSION: BPP 8 out of 8. Impression dictated by: Hugo Atkins Jr., D.O. 11/02/2024 11:42 AM Dictation Location: [place] [address] Electronically authenticated by: [id number] Y Date: 11/02/2024 11:42 Dictated By: Hugo Atkins M.D. Signed By: 11/02/24 1144 DD/ 1142 TD/TT: Cloth Shearer: [facility] Radiology Study observation (narrative) [facility] US OB BPP W NON-STRESS Ordered By: Radiologist Radiology on 11-02-2024 [facility] [employer] Work Phone: US OB CERVICAL LENGTHon 10-05 [place] [phone] Ultrasound Report Signed Patient: SAPNA SERRANO MR#: [id number] : 1995 Acct:[id number] Age/Sex: 29 / F ADM Date: 11/01/24 Loc: US Attending Dr: Jcoy Ruby Ordering Physician: Jocy Ruby Date of Service: 11/01/24 Procedure(s): US OB cervical length Accession Number(s): [id number] cc: Jocy Ruby; [address] [address] Patient Name: SAPNA SERRANO MRN: [facility]:[id number] date: 1995 Sex: F Assigned Patient Location: US Current Patient Location: US Accession/Order Number: [id number] Exam Date: 11/01/2024 11:33 Report Date: 11/01/2024 [...] Jr., D.O. 11/01/2024 11:35 AM Dictation Location: [place] [address] Electronically authenticated by: [id number] Y Date: 11/01/2024 11:35 Dictated By: Hugo Atkins M.D. Signed By: 11/01/24 1137 DD/ 34 TD/TT: Cloth Shearer: [facility] Radiology, Radiologist, - 11/01/[address] [address] Ultrasound Report Signed Patient: SAPNA SERRANO MR#: [id number] : 1995 Acct:[id number] Age/Sex: 29 / F ADM Date: 11/01/24 Loc: US Attending Dr: Jocy Ruby Ordering Physician: Jocy Ruby Date of Service: 11/01/24 Procedure(s): US OB cervical length Accession Number(s): [id number] cc: Jocy Ruby; [address] [address] Patient Name: SAPNA SERRANO MRN: [facility]:[id number] date: 1995 Sex: F Assigned Patient Location: US Current Patient Location: US Accession/Order Number: [id number] Exam Date: 11/01/2024 11:33 Report Date: 11/01/2024 [...] Jr., D.O. 11/01/2024 11:35 AM Dictation Location: [place] [address] Electronically authenticated by: [id number] Y Date: 11/01/2024 11:35 Dictated By: Hugo Atkins M.D. Signed By: 11/01/241136 DD/ 34 TD/TT: Cloth Shearer: [facility] Radiology Study observation (narrative) [facility] US OB CERVICAL LENGTHOrdered By: Radiologist Radiology on 11-01-2024 [facility] [employer] Work Phone: US OB BPP W NON-STRESS on 10-26-2024 [place] [address] Ultrasound Report Signed Patient: SAPNA SERRANO MR#: [id number] : 1995 Acct:[id number] Age/Sex: 29 / F ADM Date: 10/26/24 Loc: [facility] 255-[address]: Curtis Paez D.O. Ordering Physician: Curtis Paez D.O. Date of Service: 10/26/24 Procedure(s): US OB BPP w non-stress Accession Number(s): [id number] cc: [address] ; Curtis Paez D.O. The [place] [id number] Patient Name: SAPNA SERRANO MRN: [facility]:[id number] date: 1995 Sex: F Assigned Patient Location: [facility] Current Patient Location: [facility] Accession/Order Number: [id number] Exam Date: 10/26/2024 16:51 Report Date: 10/26/2024 16:52 At the request of: CURTIS PAEZ DO Procedure: US OB BPP w non-stress Biophysical profile. Reason for exam: Cystic fibrosis COMPARISON: None TECHNIQUE: Transabdominal imaging of the gravid uterus was obtained. FINDINGS: The stope miner reports a BPP of 8 out of 8. NAYE is normal at 17.6 cm. heart rate 150 bpm. US/US OB BPP w non-stress IMPRESSION: BPP 8 out of 8. Impression dictated by: Hugo Atkins Jr., D.O. 10/26/2024 4:52 PM Dictation Location: [place] [address] Electronically authenticated by: [id number] Y Date: 10/26/2024 16:52 Dictated By: Hugo Atkins M.D. Signed By: 10/26/241654 DD/ 51 TD/TT: Cloth Shearer: [facility] Radiology, Radiologist, MD - 10/27/2024 The [place] [id number] Ultrasound Report Signed Patient: SAPNA SERRANO MR#: [id number] : 1995 Acct:[id number] Age/Sex: 29 / F ADM Date: 10/26/24 Loc: [facility] 255-[address]: Curtis Paez D.O. Ordering Physician: Curtis Paez D.O. Date of Service: 10/26/24 Procedure(s): US OB BPP w non-stress Accession Number(s): [id number] cc: [address] ; Curtis Paez D.O. [place] [address] Patient Name: SAPNA SERRANO MRN: [id number] date: 1995 Sex: F Assigned Patient Location: [facility] Current Patient Location: [facility] Accession/Order Number: [id number] Exam Date: 10/26/2024 16:51 Report Date: 10/26/2024 16:52 At the request of: CURTIS PAEZ DO Procedure: US OB BPP w non-stress Biophysical profile. Reason for exam: Cystic fibrosis COMPARISON: None TECHNIQUE: Transabdominal imaging of the gravid uterus was obtained. FINDINGS: The stope miner reports a BPP of 8 out of 8. NAYE is normal at 17.6 cm. heart rate 150 bpm. US/US OB BPP w non-stress IMPRESSION: BPP 8 out of 8. Impression dictated by: Hugo Atkins Jr., D.O. 10/26/2024 4:52 PM Dictation Location: [place] [address] Electronically authenticated by: [id number] Y Date: 10/26/2024 16:52 Dictated By: Hugo Atkins M.D. Signed By: 10/26/241654 DD/ 51 TD/TT: Cloth Shearer[facility] Study observation (narrative) [facility] US OB BPP W NON-STRESS Ordered By: Radiologist Radiology on 10-26-2024 [facility] [employer] Work Phone: nonstress test - Mater nal Medicineon 10-24-2024 Patient Name: Sapna Serrano Patient : 1995 NST Objective Findings: Variability: (!) Marked Decelerations: None Accelerations: Yes Acoustic Stimulator: No Baseline: 140 BPM Uterine Irritability: No Contractions: Not present NST Interpretation: Nonstress Test Interpretation: Reactive (Lyndsey Bursn MD) Comments: Dr Burns rviewecristina tracing and is reactive, baby active no ctxs (Jennifer Sheets) NST performed by: Jennifer Sheets RN 10/24/2024 4:16 PM ASOBGYN nonstress test - Mater nal MedicineOrdered By: Rashida Hutchins on 10-24-2024 [facility] US OB BPP W NON-STRESS on 10-19-2024 [place] [address] Ultrasound Report Signed Patient: SAPNA SERRANO MR#: [id number] : 1995 Acct:[id number] Age/Sex: 29 / F ADM Date: 10/19/24 Loc: [facility] 250-[address]: Curtis Paez D.O. Ordering Physician: Curtis Paez D.O. Date of Service: 10/19/24 Procedure(s): US OB BPP w non-stress Accession Number(s): [id number] cc: [address] ; Curtis Paez D.O. The [place] [id number] Patient Name: SAPNA SERRANO MRN: [facility]:[id number] date: 1995 Sex: F Assigned Patient Location: US Current Patient Location: US Accession/Order Number: [id number] Exam Date: 10/19/2024 11:25 Report Date: 10/19/2024 [...] fluid greater than 2 cm [Y] 2/2 NAEY: 12.1 cm. This is in low-normal range Total score: 8/8 US/US OB BPP w non-stress IMPRESSION: NORMAL BIOPHYSICAL PROFILE Impression dictated by: Laura Rahman M.D. 10/19/2024 11:27 AM Dictation Location: [place] [address] Electronically authenticated by: [id number] Y Date: 10/19/2024 11:27 Dictated By: Laura Rahman M.D. Signed By: 10/19/24 1130 DD/ 1127 TD/TT: Cloth Shearer: [facility] Radiology, Radiologist, MD - 10/19/2024 [place] [address] Ultrasound Report Signed Patient: SAPNA SERRANO MR#: [id number] : 1995 Acct:[id number] Age/Sex: 29 / F ADM Date: 10/19/24 Loc: [facility] 250-[address]: Curtis Paez D.O. Ordering Physician: Curtis Paez D.O. Date of Service: 10/19/24 Procedure(s): US OB BPP w non-stress Accession Number(s): [id number] cc: [address] Corey D.O. The [address] [address] Patient Name: SAPNA SERRANO MRN: [facility]:[id number] date: 1995 Sex: F Assigned Patient Location: US Current Patient Location: US Accession/Order Number: [id number] Exam Date: 10/19/2024 11:25 Report Date: 10/19/2024 [...] Rahman M.D. 10/19/2024 11:27 AM Dictation Location: [place] [address] Electronically authenticated by: [id number] Y Date: 10/19/2024 11:27 Dictated By: Laura Rahman M.D. Signed By: 10/19/24 1130 DD/ 1127 TD/TT: Cloth Shearer: [facility] Radiology Study observation (narrative) [facility] OB BPP W NON-STRESS Ordered By: Radiologist Radiology on 10-19-2024 [facility] [employer] Work Phone: No Panel InformationOrdered By: Esther Maldonado on 10-17-2024 Quick Strep (POC) [facility] US OB BPP W NON-STRESS on 10-12-[address] [address] Ultrasound Report Signed Patient: SAPNA SERRANO MR#: [id number] : 1995 Acct:[id number] Age/Sex: 29 / F ADM Date: 10/12/24 Loc: [facility] 250-[address]: Curtis Paez D.O. Ordering Physician: Curtis Paez D.O. Date of Service: 10/12/24 Procedure(s): US OB BPP w non-stress Accession Number(s): [id number] cc: [address] ; Curtis Paez D.O. The [address] [address] Patient Name: SAPNA SERRANO MRN: [facility]:[id number] date: 1995 Sex: F Assigned Patient Location: [facility] Current Patient Location: [facility] Accession/Order Number: [id number] Exam Date: 10/12/2024 20:55 Report Date: 10/12/2024 [...] Schumacher M.D. 10/12/2024 8:55 PM Dictation Location: [place] [address] Electronically authenticated by: [id number] Y Date: 10/12/2024 20:55 Dictated By: Man Schumacher D.O. Signed By: 10/12/242057 DD/ 54 TD/TT: Cloth Shearer: [facility] Radiology, Radiologist, MD - 10/13/2024 The [place] [id number] Ultrasound Report Signed Patient: SAPNA SERRANO MR#: [id number] : 1995 Acct:[id number] Age/Sex: 29 / F ADM Date: 10/12/24 Loc: [facility] 250-[address]: Curtis Paez D.O. Ordering Physician: Curtis Paez D.O. Date of Service: 10/12/24 Procedure(s): US OB BPP w non-stress Accession Number(s): [id number] cc: [address] ; Curtis Paez D.O. [address] [address] Patient Name: SAPNA SERRANO MRN: [facility]:[id number] date: 1995 Sex: F Assigned Patient Location: [facility] Current Patient Location: [facility] Accession/Order Number: [id number] Exam Date: 10/12/2024 20:55 Report Date: 10/12/2024 [...] Schumacher M.D. 10/12/2024 8:55 PM Dictation Location: [place] [address] Electronically authenticated by: [id number] Y Date: 10/12/2024 20:55 Dictated By: Man Schumacher D.O. Signed By: 10/12/242057 DD/ 54 TD/TT: Cloth Shearer: [facility] Radiology Study observation (narrative) [facility] US OB BPP W NON-STRESS Ordered By: Radiologist Radiology on 10-12-2024 [facility] Work Phone: US OB PLACENTAon 10-04-[address] [address] Ultrasound Report Signed Patient: SAPNA SERRANO MR#: [id number] : 1995 Acct:[id number] Age/Sex: 29 / F ADM Date: 09/24/24 Loc: [facility] Attending Dr: Curtis Paez D.O. Ordering Physician: Curtis Paez D.O. Date of Service: 09/24/24 Procedure(s): US OB placenta Accession Number(s): [id number] cc: [address] Corey D.O. The [place] [id number] Patient Name: SAPNA SERRANO MRN: [facility]:[id number] date: 1995 Sex: F Assigned Patient Location: [facility] Current Patient Location: US Accession/Order Number: [id number] Exam Date: 10/04/2024 09:16 Report Date: 10/04/2024 [...] Rahman M.D. 10/04/2024 9:50 AM Dictation Location: [place] [address] Electronically authenticated by: [id number] Y Date: 10/04/2024 09:50 Dictated By: Laura Rahman M.D. Signed By: 10/04/24 0952 DD/ TD/TT: Cloth Shearer: [facility] Radiology, Radiologist, - 10/04/[address] [address] Ultrasound Report Signed Patient: SAPNA SERRANO MR#: [id number] : 1995 Acct:[id number] Age/Sex: 29 / F ADM Date: 09/24/24 Loc: [facility] Attending Dr: Curtis Paez D.O. Ordering Physician: Curtis Paez D.O. Date of Service: 09/24/24 Procedure(s): US OB placenta Accession Number(s): [id number] cc: [address] ; Curtis Paez D.O. [place] [address] Patient Name: SAPNA SERRANO MRN: [id number]:[id number] date: 1995 Sex: F Assigned Patient Location: [facility] Current Patient Location: US Accession/Order Number: [id number] Exam Date: 10/04/2024 09:16 Report Date: 10/04/2024 [...] Rahman M.D. 10/04/2024 9:50 AM Dictation Location: [place] [address] Electronically authenticated by: [id number] Y Date: 10/04/2024 09:50 Dictated By: Laura Rahman M.D. Signed By: 10/04/24 0952 DD/ 9 TD/TT: Cloth Shearer: [facility] Radiology Study observation (narrative) [facility] US OB PLACENTAOrdered By: diologfelipe Radiology on 10-04-2024 [facility] Work Phone: Urinalysis macro (dipstick) panel (U)on 10-03-2024 Bilirubin, UA Negative Negative - 4(70) +++ mg/dL [facility] Blood, UA Negative Negative - 50 Koby/mcL [facility] Clarity, UA Clear [facility] Color, UA Yellow [facility] Glucose, UA Negative Negative - 1999(110) ++++ mg/dL [facility] Interpretation and review of laboratory results Abnormal [facility] Ketones, UA Negative Negative - 160(16) ++++ mg/dL [facility] Leukocytes, UA Negative Negative - 500+++ Danny/mcL [facility] Nitrite, UA Negative Negative - Positive [facility] pH, UA 7.5 5 - 9 [facility] Protein, UA Trace Negative - 1999(20) ++++ mg/dL [facility] Spec Grav, UA 1.02 1 - 1.03 [facility] Urobilinogen, UA 0.2 0.2 - 12 mg/dL [facility] US OB BPP W NON-STRESS on 09-25-2024 [place] [address] Ultrasound Report Signed Patient: SAPNA SERRANO MR#: [id number] : 1995 Acct:[id number] Age/Sex: 29 / F ADM Date: Loc: [facility] 251-[address]: Curtis Paez D.O. Ordering Physician: Curtis Paez D.O. Date of Service: 09/24/24 Procedure(s): US OB BPP w non-stress Accession Number(s): [id number] cc: [address] ; Curtis Paez D.O. [address] [address] Patient Name: SAPNA SERRANO MRN: [id number]:[id number] date: 1995 Sex: F Assigned Patient Location: [facility] Current Patient Location: [facility] Accession/Order Number: [id number] Exam Date: 09/25/2024 08:05 Report Date: 09/25/2024 08:08 At the request of: CURITS PAEZ DO Procedure: US OB BPP w non-stress CLINICAL DATA: History of bleeding. Possible abruption. BIOPHYSICAL PROFILE: COMPARISON: None There is a single live intrauterine gestation in cephalic presentation. The reported gestational age is 28 weeks 5 days. The heart rate [id number] beats per minute. FINDINGS: TONE: 1 or [...] Rahman M.D. 09/25/2024 8:08 AM Dictation Location: [place] [address] Electronically authenticated by: [id number] Y Date: 09/25/2024 08:08 Dictated By: Laura Rahman M.D. Signed By: 09/25/2410 DD/ TD/TT: Cloth Shearer: [facility] Radiology, Radiologist, - 09/25/2024 [place] [address] Ultrasound Report Signed Patient: SAPNA SERRANO MR#: [id number] : 1995 Acct:[id number] Age/Sex: 29 / F ADM Date: Loc: [facility] 251-[address]: Curtis Paez D.O. Ordering Physician: Curtis Paez D.O. Date of Service: 09/24/24 Procedure(s): US OB BPP w non-stress Accession Number(s): [id number] cc: [address] Corey D.O. The [place] [address] Patient Name: SAPNA SERRANO MRN: [id number] date: 1995 Sex: F Assigned Patient Location: [facility] Current Patient Location: [facility] Accession/Order Number: [id number] Exam Date: 09/25/2024 08:05 Report Date: 09/25/2024 [...] Rahman M.D. 09/25/2024 8:08 AM Dictation Location: [place] [address] Electronically authenticated by: [id number] Y Date: 09/25/2024 08:08 Dictated By: Laura Rahman M.D. Signed By: 09/25/24 0810 DD/ 0808 TD/TT: Cloth Shearer: [facility] [employer] Radiology Study observation (narrative) [facility] US OB BPP W NON-STRESS Ordered By: Radiologist Radiology on 09-25-2024 [facility] [employer] Work Phone: US OB CERVICAL LENGTHon 09-[address] [address] Ultrasound Report Signed Patient: SAPNA SERRANO MR#: [id number] : 1995 Acct:[id number] Age/Sex: 29 / F ADM Date: 09/21/24 Loc: US Attending Dr: Curtis Paez D.O. Ordering Physician: Curtis Paez D.O. Date of Service: 09/21/24 Procedure(s): US OB cervical length Accession Number(s): [id number] cc: [address] ; Curtis Paez D.O. The [place] [id number] Patient Name: SAPNA SERRANO MRN: [facility]:[id number] date: 1995 Sex: F Assigned Patient Location: US Current Patient Location: US Accession/Order Number: [id number] Exam Date: 09/21/2024 14:39 Report Date: 09/21/2024 [...] Jr., D.O. 09/21/2024 2:40 PM Dictation Location: [place] [address] Electronically authenticated by: [id number] Y Date: 09/21/2024 14:40 Dictated By: Hugo Atkins M.D. Signed By: 09/21/24 1443 DD/ 1440 TD/TT: Cloth Shearer: [facility] Radiology, Radiologist, MD - 09/21/2024 [place] [address] Ultrasound Report Signed Patient: SAPNA SERRANO MR#: [id number] : 1995 Acct:[id number] Age/Sex: 29 / F ADM Date: 09/21/24 Loc: US Attending Dr: Curtis Paez D.O. Ordering Physician: Curtis Paez D.O. Date of Service: 09/21/24 Procedure(s): US OB cervical length Accession Number(s): [id number] cc: [address] ; Curtis Paez D.O. [place] [id number] Patient Name: SAPNA SERRANO MRN: [facility]:[id number] date: 1995 Sex: F Assigned Patient Location: US Current Patient Location: US Accession/Order Number: [id number] Exam Date: 09/21/2024 14:39 Report Date: 09/21/2024 [...] Jr., D.O. 09/21/2024 2:40 PM Dictation Location: [place] [address] Electronically authenticated by: [id number] Y Date: 09/21/2024 14:40 Dictated By: Hugo Atkins M.D. Signed By: 09/21/24 144 DD/ 1440 TD/TT: Cloth Shearer: [facility] Radiology Study observation (narrative) [facility] US OB CERVICAL LENGTHOrdered By: Radiologist Radiology on 09-21-2024 [facility] [employer] Work Phone: US OB PLACENTAon 09-21-2024 [place] [address] Ultrasound Report Signed Patient: SAPNA SERRANO MR#: [id number] : 1995 Acct:[id number] Age/Sex: 29 / F ADM Date: 09/21/24 Loc: US Attending Dr: Curtis Paez D.O. Ordering Physician: Curtis Paez D.O. Date of Service: 09/21/24 Procedure(s): US OB placenta Accession Number(s): [id number] cc: [address] ; Curtis Paez D.O. The [place] [address] Patient Name: SAPNA SERRANO MRN: [facility]:[id number] date: 1995 Sex: F Assigned Patient Location: US Current Patient Location: US Accession/Order Number: [id number] Exam Date: 09/21/2024 14:41 Report Date: 09/21/2024 [...] Jr., D.O. 09/21/2024 2:53 PM Dictation Location: [place] [address] Electronically authenticated by: [id number] Y Date: 09/21/2024 14:53 Dictated By: Hugo Atkins M.D. Signed By: 09/21/24 1456 DD/ 1453 TD/TT: Cloth Shearer: [facility] Radiology, Radiologist, MD - 09/21/2024 [place] [address] Ultrasound Report Signed Patient: SAPNA SERRANO MR#: [id number] : 1995 Acct:[id number] Age/Sex: 29 / F ADM Date: 09/21/24 Loc: US Attending Dr: Curtis Paez D.O. Ordering Physician: Curtis Paez D.O. Date of Service: 09/21/24 Procedure(s): US OB placenta Accession Number(s): [id number] cc: [address] ; Curtis Paez D.O. [place] [id number] Patient Name: SAPNA SERRANO MRN: [id number]:[id number] date: 1995 Sex: F Assigned Patient Location: US Current Patient Location: US Accession/Order Number: [id number] Exam Date: 09/21/2024 14:41 Report Date: 09/21/2024 [...] Jr., D.O. 09/21/2024 2:53 PM Dictation Location: [place] [address] Electronically authenticated by: [id number] Y Date: 09/21/2024 14:53 Dictated By: Hugo Atkins M.D. Signed By: 09/21/24 1456 DD/ 1453 TD/TT: Cloth Shearer: [facility] Radiology Study observation (narrative) [facility] US OB PLACENTAOrdered By: Ra fanogfelipe Radiology on 09-21-2024 [facility] Work Phone: US OB 1 OR [...] Eldon Maldonado MD 09/11/24 Final result Normal [facility] ALL CBC WITH AUTO DIFFon BASOPHILS ABSOLUTE AUTO 0.1 [facility] Basophils/100 WBC (Bld) 0.7 % 0.2 - 2.0 % [facility] Eosinophils/100 WBC (Bld) 1.8 % 0.9 - 7.0 % [facility] Erythrocyte distribution width (RBC) [Ratio] 13.7 % 11.0 - 15.0 % [facility] IMMATURE GRANULOCYTES ABS AUTO 0.06 High [facility] Immature granulocytes/100 WBC (Bld) 0.5 % 0.0 - 0.5 % [facility] Interpretation and review of laboratory results Abnormal [facility] LYMPHOCYTES ABSOLUTE AUTO 2.1 [facility] Lymphocytes/100 WBC (Bld) 17.6 % Low 20.5 - 60.0 % [facility] MCH (RBC) [Entitic mass] 30.1 pg 26.7 - 34.0 pg [facility] MCHC (RBC) [Mass/Vol] 33.5 g/dL 29.9 - 35.2 g/dL [facility] MCV (RBC) [Entitic vol] 89.8 fL 81.0 - 99.0 fL [facility] MONOCYTES ABSOLUTE AUTO 0.7 [facility] Monocytes/100 WBC (Bld) 6 % 1.7 - 12.0 % [facility] NEUTROPHILS ABSOLUTE AUTO 8.6 High [facility] Neutrophils/100 WBC (Bld) 73.4 % 43.0 - 75.0 % [facility] Platelet mean volume (Bld) [Entitic vol] 9.6 fL 9.5 - 13.5 fL [facility] EO # 0.2 [facility] PLT 272 [facility] e TB RBC 4.32 [facility] WBC 11.8 High [facility] CBC without diffon Platelets (Bld) [#/Vol] 272 10*3/uL [facility] Rbc Mcv (Fl) By Automated Count 89.8 [facility] Glucose tolerance, 1 houron 08-30-2024 Glucose Tolerance Test 1 Hour 66 [facility] Laboratory - Hematology and Cell countson 08-30-2024 Hematocrit (Bld) [Volume fraction] 38.8 % [facility] e Hemoglobin (Bld) [Mass/Vol] 13 g/dL [facility] No Panel Informationon 08-30 [facility] e Colposcopyon 08-14-2024 Curtis Paez DO 08/15/2024 [...] paperwork completed: yes Educational handouts given: no [facility] SEND OUT TESTon 07-28-2024 SENT TO [facility] VIA Rain [phone] [facility] Comment on above: Result Comment: Miki ected on 07/28 AT 1418: Previously reported as [facility] [employer] [employer] [phone] SENT TO [facility] VIA [employer] [phone] Normal [facility] Comment on above: Result Comment: Miki dailey on 07/28 AT 1418: Previously reported as [facility] [employer] [employer] [phone] SPECIMEN 3 MATERNAL AMNIOTIC FLUID 2 EDTA AND 1 SODIUM HEP MATERNAL Normal [facility] TEST NAME: KNOWN MUTATION ANALYSIS CFTR GENE Normal [facility] TEST NAME: MATERNAL CELL CONTAMINATION Normal [facility] TEST RESULT See separate report. View in OnBase or in EPIC. Normal [facility] AFP, SERUM, OPEN SPINA BIFID Aon 07-08-2024 AFP MOM 0.85 . [facility] AFP VALUE 28.4 ng/mL . [facility] [employer] COMMENT: Comment . [facility] [employer] Comment on above: Joan Shetty , Ph.D., [facility] Director References: Available Upon Request. Multiples Of Median Cutoffs For AFP Elevations Dupont 2.5 Black 2.8 IDD 2.0 Twins 4.5 Abbreviation Definitions IDD - Insulin Dep Diabetes OSBR - Open Spina Bifida Risk For further inquiries contact [employer] [facility] at [phone]. This test was developed and its performance characteristics determined by [employer]. It has not been cleared or approved by the Food and Drug Administration. Performed at: [facility] [place], [place] [id number] Catering And Events Manager: Sonja Esposito [facility], Phone: [phone] GEST. AGE ON COLLECTION DATE 17.1 . weeks [facility] GESTAT. AGE BASED ON LMP . [facility] [employer] Comment on above: Recalculations are n ot recommended when gestational dating by LMP and ultrasound are within 10 days. INSULIN DEP DIABETES No . [facility] Healthcare INTERPRETATION Comment . [facility] Healt hcare Comment on above: Interpretation: Scre en [...] Customer Services to discuss available options. The [employer] recommends amniocentesis be offered to women age 35 and older. [age]ER[age] [facility] MULTIPLE GESTATION No . [facility] H ealthcare [place] [address] [place] [address] . [facility] RACE . [facility] RESULTS Report . [facility] TEST RESULTS: Negative . [facility] WEIGHT 186 . lbs [facility] N N LMP [id number] 1 17 N 1 Y 186 N N N N N White/ [facility] e RECURRENT VAGINITIS (HTRX)on 07-07-2024 ATOPOBIUM VAGINAE 0 [facility] ATOPOBIUM VAGINAE Not detected [facility] BVAB 2,3 (BACTERIAL VAGINOSIS ASSOCIATED BACTERIA 2, 3); MOBILUNCUS SPP 0 [facility] BVAB 2,3 (BACTERIAL VAGINOSIS ASSOCIATED BACTERIA 2, 3); MOBILUNCUS SPP Not detected [facility] ILIANA ALBICANS, PARAPSILOSIS, TROPICALIS 0 [facility] ILIANA ALBICANS, PARAPSILOSIS, TROPICALIS Not detected [facility] ILIANA GLABRATA 0 [facility] ILIANA GLABRATA Not detected [facility]alth[facility] ILIANA KRUSEI [facility] ILIANA KRUSEI Not detected [facility] CHLAMYDIA TRACHOMATIS 22.157 Abnormal [facility] CHLAMYDIA TRACHOMATIS Detected Abnormal [facility] ERMB, C; MEFA 26.913 Abnormal [facility] ERMB, C; MEFA Detected Abnormal [facility] GARDNERELLA VAGINALIS 0 [facility] GARDNERELLA VAGINALIS Not detected N [facility] Interpretation and review of laboratory results Abnormal [facility] MEGASPHAERA (TYPES 1, 2) 0 [facility] MEGASPHAERA (TYPES 1, 2) Not detected [facility] MYCOPLASMA GENITALIUM 0 [facility] MYCOPLASMA GENITALIUM Not detected N [facility] NEISSERIA GONORRHOEAE 0 [facility] NEISSERIA GONORRHOEAE Not detected N [facility] TET B, TET M 23.614 Abnormal [facility] Healthc are TET B, TET M Detected Abnormal [facility] Healthc are TRICHOMONAS VAGINALIS 0 [facility] TRICHOMONAS VAGINALIS Not detected N [facility] AFP Single Marker Scrn, Mate rnal, Serumon 07-06-2024 Ms Alpha-Fetoprotein Negative [facility] C. trachomatis DNA ALLISON+probe Ql (Unsp spec)on 07-06-2024 Chlamydia Dna(Pcr) Detected [facility] Gonorrhoeae Dna(Pcr) Negative [facility] HM PAP SMEARon 07-06-2024 HM Pap smear [facility]IL [facility] High risk HPV w/genoon 07-06 Other High Risk Hpv Negative [facility] No Panel Informationon 07-06 [facility] Urinalysis macro (dipstick) panel (U)on 07-06-2024 Bilirubin, UA Negative Negative - 4(70) +++ mg/dL [facility] Blood, UA Negative Negative - 50 Koby/mcL [facility] Clarity, UA Clear [facility] Health[facility] re Color, UA Yellow [facility] Glucose, UA Negative Negative - 2000(110) ++++ mg/dL [facility] Interpretation and review of laboratory results Abnormal [facility] Ketones, UA Positive Negative - 160(16) ++++ mg/dL [facility] Comment on above: trace Leukocytes, UA Trace Negative - 500+++ Danny/mcL [facility] Nitrite, UA Negative Negative - Positive [facility] pH, UA 6 5 - 9 [facility] e Protein, UA Trace Negative - 2000(20) ++++ mg/dL [facility] Spec Grav, UA 1.03 1 - 1.03 [facility] Urobilinogen, UA 0.2 0.2 - 12 mg/dL [facility] [place] [address] Ultrasound Report Signed Patient: SAPNA SERRANO MR#: [id number] : 1995 Acct:[id number] Age/Sex: 28 / F ADM Date: 07/05/24 Loc: US Attending Dr: Curtis Paez D.O. Ordering Physician: Curtis Paez D.O. Date of Service: 07/05/24 Procedure(s): US OB cervical length Accession Number(s): [id number] cc: [address] Corey D.O. The [address] [address] Patient Name: SAPNA SERRANO MRN: [facility]:[id number] date: 1995 Sex: F Assigned Patient Location: US Current Patient Location: US Accession/Order Number: [id number] Exam Date: 07/05/2024 08:08 Report Date: 07/05/2024 [...] Laura Rahman M.D.07/05/2024 8:10 AM Dictation Location: [place] [address] Electronically authenticated by: [id number] Y Date: 07/05/2024 08:10 Dictated By: Laura Rahman M.D. Signed By: 07/05/2413 DD/ 9 TD/TT: Cloth Shearer: [facility] Radiology, Radiologist, MD - 07/05/2024 The [place] [id number] Ultrasound Report Signed Patient: SAPNA SERRANO MR#: [id number] : 1995 Acct:[id number] Age/Sex: 28 / F ADM Date: 07/05/24 Loc: US Attending Dr: Curtis Paez D.O. Ordering Physician: Curtis Paez D.O. Date of Service: 07/05/24 Procedure(s): US OB cervical length Accession Number(s): [id number] cc: [address] ; Curtis Paez D.O. The [place] [id number] Patient Name: SAPNA SERRANO MRN: [id number] date: 1995 Sex: F Assigned Patient Location: Current Patient Location: Accession/Order Number: [id number] Exam Date: 07/05/2024 08:08 Report Date: 07/05/2024 [...] Laura Rahman M.D.07/05/2024 8:10 AM Dictation Location: [place] [address] Electronically authenticated by: [id number] Y Date: 07/05/2024 08:10 Dictated By: Laura Rahman M.D. Signed By: 07/05/24812 DD/ 9 TD/TT: Cloth Shearer: [facility] Radiology Study observation (narrative) [facility] US OB CERVICAL LENGTHOrdered By: Radiologist Radiology on 07-05-2024 [facility] e Work Phone: Urinalysis macro (dipstick) panel (U)on 06-08-2024 Bilirubin, UA Negative Negative - 4(70) +++ mg/dL [facility] Blood, UA Negative Negative - 50 Koby/mcL [facility] Clarity, UA Clear [facility] re Color, UA Yellow [facility] e Glucose, UA Negative Negative - 2000(110) ++++ mg/dL [facility] Interpretation and review of laboratory results Normal [facility] Ketones, UA Negative Negative - 160(16) ++++ mg/dL [facility] Leukocytes, UA Negative Negative - 500+++ Danny/mcL [facility] Nitrite, UA Negative Negative - Positive [facility] pH, UA 6 5 - 9 [facility] e Protein, UA Negative Negative - 2000(20) ++++ mg/dL [facility] Spec Grav, UA 1.02 1 - 1.03 [facility] Urobilinogen, UA 0.2 0.2 - 12 mg/dL [facility] e ALL CBC WITH AUTO DIFFon BASOPHILS ABSOLUTE AUTO 0.1 [facility] Basophils/100 WBC (Bld) 0.6 % 0.2 - 2.0 % [facility] Eosinophils/100 WBC (Bld) 1.7 % 0.9 - 7.0 % [facility] Erythrocyte distribution width (RBC) [Ratio] 13.2 % 11.0 - 15.0 % [facility] Hematocrit (Bld) [Volume fraction] 41.1 % 36.0 - 48.0 % [facility] e Hemoglobin (Bld) [Mass/Vol] 13.5 g/dL 12.0 - 16.0 g/dL [facility] IMMATURE GRANULOCYTES ABS AUTO 0.05 High [facility] Immature granulocytes/100 WBC (Bld) 0.5 % 0.0 - 0.5 % [facility] Interpretation and review of laboratory results Abnormal [facility] LYMPHOCYTES ABSOLUTE AUTO 1.9 [facility] Lymphocytes/100 WBC (Bld) 17 % Low 20.5 - 60.0 % [facility] MCH (RBC) [Entitic mass] 29.6 pg 26.7 - 34.0 pg [facility] MCHC (RBC) [Mass/Vol] 32.8 g/dL 29.9 - 35.2 g/dL [facility] MCV (RBC) [Entitic vol] 90.1 fL 81.0 - 99.0 fL [facility] MONOCYTES ABSOLUTE AUTO 0.8 [facility] Monocytes/100 WBC (Bld) 7 % 1.7 - 12.0 % [facility] NEUTROPHILS ABSOLUTE AUTO 8.1 High [facility] Neutrophils/100 WBC (Bld) 73.2 % 43.0 - 75.0 % [facility] Platelet mean volume (Bld) [Entitic vol] 9.6 fL 9.5 - 13.5 fL [facility] # 0.2 [facility] PLT 312 [facility] RBC 4.56 [facility] WBC 11.1 High [facility] CLINISY[facility] BOX TESTon 05-17-2024 BOX TEST SENT OUT MALOU [facility] BOX1 [facility] BOX2 05/17/24 [facility] UNITY BOX CLINISYNC [facility] e Drug Screen, Urineon 025 Amphetamine/Methamphet amine Negative [facility] Barbiturates Negative [facility] Benzodiazepines Negative [facility] Cocaine Metabolite Negative [facility] Methadone Negative [facility] Opiates Negative [facility] Oxycodone Negative [facility] Phencyclidine Negative [facility] Thc Marijuana, Urine Negative [facility] HBV surface Ag IA Qlon 05-17 Hepatitis B Surface Antigen Negative [facility] HCV Ab IA Qlon 05-17-2024 HCV Ab Ql (S) Non-Reactive [facility] HIV 1+2 Ab+HIV1 p24 Ag IA Ql on 05-17-2024 HIV 1&2 AB/AG Non-Reactive [facility] No Panel Informationon 05-17 [facility] Rubella IGG immune statuson 05-17-2024 Rubella immune IgG 1.54 [facility] Comment on above: IMMUNE T. pallidum IgG+IgM IA Ql (S )Ordered By: Lyric Sánchez on 05-17-2024 Syphilis [facility]-Reactive [facility] TSHon 05-17-2024 Thyroid Stimulating (3Rd Generation) Hormone/ Tsh 0.649 [facility] Type and screenon 05-17-2024 Abo/Rh(D) Positive [facility] HCG ( test) Ql (U)o n 05-05-2024 Interpretation and review of laboratory results Abnormal [facility] Preg Test, Ur Positive Negative [facility] Urinalysis macro (dipstick) panel (U)on 05-05-2024 Bilirubin, UA Negative Negative - 4(70) +++ mg/dL [facility] Blood, UA Negative Negative - 50 Koby/mcL [facility] Clarity, UA Clear [facility] re Color, UA Yellow [facility] Glucose, UA Negative Negative - 1999(110) ++++ mg/dL [facility] Interpretation and review of laboratory results Abnormal [facility] Ketones, UA Negative Negative - 160(16) ++++ mg/dL [facility] Leukocytes, UA Negative Negative - 500+++ Danny/mcL [facility] Nitrite, UA Negative Negative - Positive [facility] pH, UA 7 5 - 9 [facility] Protein, UA Positive Negative - 1999(20) ++++ mg/dL [facility] Comment on above: 30 Spec Grav, UA 1.02 1 - 1.03 [facility] Urobilinogen, UA 0.2 0.2 - 12 mg/dL [facility] e Basic Metabolic Panelon 04-06 Anion gap [Moles/Vol] 12 mmol/L 9 - 16 mmol/L [facility] Calcium [Mass/Vol] 9.1 mg/dL 8.6 - 10. 4 mg/dL [facility] Chloride [Moles/Vol] 102 mmol/L 98 - 10 7 mmol/L [facility] CO2 [Moles/Vol] 23 mmol/L 20 - 31 mmol/L [facility] Creatinine [Mass/Vol] 0.5 mg/dL 0.50 - 0.90 mg/dL [facility] Est, Glom Filt Rate - PINF [facility] Comment on above: These results are [...] 66 mg/dL Low 74 - 99 mg/dL [facility] Interpretation and review of laboratory results Abnormal [facility] Potassium [Moles/Vol] 3.8 mmol/L 3.7 - 5.3 mmol/L [facility] Sodium [Moles/Vol] 137 mmol/L 136 - 145 mmol/L [facility] Urea nitrogen [Mass/Vol] 9 mg/dL 6 - 20 mg/dL [facility] Urea nitrogen/Creatinine [Mass ratio] 18 mg/mg 9 - [facility] Basic Metabolic Profon 04-27 Anion gap [Moles/Vol] 12 mmol/L Normal 9-16 [facility] Comment on above: Performed By: #### B MP, CDP #### [facility] [address] [place], [place] [id number] Catering And Events Manager: Gal Katz MD BUN/CRE Ratio 18 Normal - [facility] Comment on above: Performed By: #### B JACQUELIN, CDP #### [facility] [address] [place], [place] [id number] Catering And Events Manager: Gal Katz MD Calcium [Mass/Vol] 9.1 mg/dL Normal 8.6-10.4 [facility] Comment on above: Performed By: #### B JACQUELIN, CDP #### [facility] [address] [place] [address] Catering And Events Manager: Gal Katz MD Chloride [Moles/Vol] 102 mmol/L Normal 98-107 [facility] Comment on above: Performed By: #### B JACQUELIN, CDP #### [facility] [address] [place] [address] Catering And Events Manager: Gal Katz MD CO2 [Moles/Vol] 23 mmol/L Normal - [facility] Comment on above: Performed By: #### B MP, CDP #### [facility] [address] [place] [address] Catering And Events Manager: Gal Katz MD Creatinine [Mass/Vol] 0.5 mg/dL Normal 0.50-0.90 [facility] Comment on above: Performed By: #### B MP, CDP #### [facility] [address] [place], [place] [phone] Catering And Events Manager: Gal Katz MD GFR/1.73 sq M.predicted among non-blacks MDRD (S/P/Bld) [Vol rate/Area] mL/min/{1.73_m2} Normal >60 [facility] Comment on above: Result Comment: These [...] Performed By: #### B JACQUELIN, CDP #### [facility] [address] [place] [address] [place], [place] [phone] Catering And Events Manager: Gal Katz MD Glucose [Mass/Vol] 66 mg/dL Low 74-99 [facility] Comment on above: Performed By: #### B JACQUELIN, CDP #### [facility] [address] [place] [address] [place] [address] Catering And Events Manager: Gal Katz MD Potassium [Moles/Vol] 3.8 mmol/L Normal 3.7-5.3 [facility] Comment on above: Performed By: #### B JACQUELIN, CDP #### [address] [place] [address] Catering And Events Manager: Gal Katz MD Sodium [Moles/Vol] 137 mmol/L Normal 136-145 [facility] Comment on above: Performed By: #### B JACQUELIN, CDP #### [facility] [address] [place] [address] [place] [address] Catering And Events Manager: Gal Katz MD Urea nitrogen [Mass/Vol] 9 mg/dL Normal 6-20 [facility] Comment on above: Performed By: #### B JACQUELIN, CDP #### [facility] [address] [place] [address] [place] [address] C[employer]ing And Events Manager: Gal Katz MD CBC with Auto Differentialon 04-27-2024 Basophils (Bld) [#/Vol] 0.09 10*3/uL [facility] Basophils/100 WBC (Bld) 1 % 0 - 2 % [facility] Eosinophils (Bld) [#/Vol] 0.17 10*3/uL [facility] Eosinophils/100 WBC (Bld) 2 % 1 - 4 % [facility] Erythrocyte distribution width (RBC) [Ratio] 12.7 % 11.8 - 14.4 % [facility] Hematocrit (Bld) [Volume fraction] 41.1 % 36.3 - 47.1 % [facility] Hemoglobin (Bld) [Mass/Vol] 14.0 g/dL 11.9 - 15.1 g/dL [facility] Immature granulocytes (Bld) [#/Vol] 0.04 10*3/uL [facility] Immature granulocytes/100 WBC (Bld) 0 % 0 [facility] Interpretation and review of laboratory results Abnormal [facility] Lymphocytes/100 WBC (Bld) 20 % Low 24 - 43 % [facility] Lymphocytes/100 WBC (Bld) 2.31 % [facility] MCH (RBC) [Entitic mass] 30.1 pg 25.2 - 33.5 pg [facility] MCHC (RBC) [Mass/Vol] 34.1 g/dL 28.4 - 34.8 g/dL [facility] MCV (RBC) [Entitic vol] 88.4 fL 82.6 - 102.9 fL [facility] Monocytes/100 WBC (Bld) 8 % 3 - 12 % [facility] Monocytes/100 WBC (Bld) 0.90 % [facility] Neutrophils/100 WBC (Bld) 69 % High 36 - 65 % [facility] Nucleated RBC/100 WBC (Bld) [Ratio] 0.0 % 0.0 per 100 WBC [facility] Platelet mean volume (Bld) [Entitic vol] 9.4 fL 8.1 - 13.5 fL [facility] Platelets (Bld) [#/Vol] 327 10*3/uL [facility] RBC (Bld) [#/Vol] 4.65 10*6/uL 3.95 - 5.1 1 m/uL [facility] Segmented neutrophils/100 WBC (Bld) 8.09 % [facility] WBC other (Bld) [#/Vol] 11.6 High [facility] CBC with Diffon 04-27-2024 Abs. Basophil 0.09 k/uL Normal 0.00-0.20 [facility] Comment on above: Performed By: #### B JACQUELIN, CDP #### [facility] [address] [place] [address] [place] [place], [place] [phone] Catering And Events Manager: Gal Katz MD Abs.Imm.Granulocyte 0.04 k/uL Normal 0.00-0.30 [facility] Comment on above: Performed By: #### B JACQUELIN, CDP #### [address] [place], [place] [address] Catering And Events Manager: Gal Katz MD Abs.Neutrophil (Seg) 8.09 k/uL Normal 1.50-8.10 [facility] Comment on above: Performed By: #### B JACQUELIN, CDP #### [address] [place], [place] [phone] Catering And Events Manager: Gal Katz MD Basophils/100 WBC (Bld) 1 % Normal 0-2 [facility] Comment on above: Performed By: #### B JACQUELIN, CDP #### [address] [place], [place] [phone] Catering And Events Manager: Gal Katz MD Eosinophils (Bld) [#/Vol] 0.17 10*3/uL Normal 0.00-0.44 [facility] Comment on above: Performed By: #### B JACQUELIN, CDP #### [address] [place], [place] [phone] Catering And Events Manager: Gal Katz MD Eosinophils/100 WBC (Bld) 2 % Normal 1-4 [facility] Comment on above: Performed By: #### B JACQUELIN, CDP #### [facility] [address] [place], [place] [address] Catering And Events Manager: Gal Katz MD Erythrocyte distribution width (RBC) [Ratio] 12.7 % Normal 11.8-14.4 [facility] Comment on above: Performed By: #### B MP, CDP #### [address] [place], [place] [address]83 Catering And Events Manager: Gal Katz MD Hematocrit (Bld) [Volume fraction] 41.1 % Normal 36.3-47.1 [facility] Comment on above: Performed By: #### B MP, CDP #### [address] [place], [place] [phone] Catering And Events Manager: Gal Katz MD Hemoglobin (Bld) [Mass/Vol] 14.0 g/dL Normal 11.9-15.1 [facility] Comment on above: Performed By: #### B MP, CDP #### [address] [place], [place] 3993183 Catering And Events Manager: Gal Katz MD Immature granulocytes/100 WBC (Bld) 0 % Normal 0 [facility] Comment on above: Performed By: #### B MP, CDP #### [address] [place], [place] 2555383 Catering And Events Manager: Gal Katz MD Lymphocytes (Bld) [#/Vol] 2.31 10*3/uL Normal 1.10-3.70 [facility] Comment on above: Performed By: #### B MP, CDP #### [address] [place], [place] [address]83 Catering And Events Manager: Gal Katz MD Lymphocytes/100 WBC (Bld) 20 % Low 24-43 [facility] Comment on above: Performed By: #### B MP, CDP #### [address] [place] [address] Catering And Events Manager: Gal Katz MD MCH (RBC) [Entitic mass] 30.1 pg Normal 25.2-33.5 [facility] Comment on above: Performed By: #### B MP, CDP #### [address] [place] [address] ( Catering And Events Manager: Gal Katz MD MCHC (RBC) [Mass/Vol] 34.1 g/dL Normal 28.4-34.8 [facility] Comment on above: Performed By: #### B MP, CDP #### [address] [place] [address] Catering And Events Manager: Gal Katz MD MCV (RBC) [Entitic vol] 88.4 fL Normal 82.6-102.9 [facility] Comment on above: Performed By: #### B JACQUELIN, CDP #### [address] [place] [address] Catering And Events Manager: Gal Katz MD Monocytes (Bld) [#/Vol] 0.90 10*3/uL Normal 0.10-1.20 [facility] Comment on above: Performed By: #### B JACQUELIN, CDP #### [address] [place] [address] Catering And Events Manager: Gal Katz MD Monocytes/100 WBC (Bld) 8 % Normal 3-12 [facility] Comment on above: Performed By: #### B MP, CDP #### [facility] [address] [place] [address] [place] [place], [place] 9223283 Catering And Events Manager: Gal Katz MD Neutrophil (Seg) 69 % High 36-65 [facility] Comment on above: Performed By: #### B MP, CDP #### [facility] [address] [place] [address] [place], [place] [phone] Catering And Events Manager: Gal Katz MD NRBC Automated 0.0 per 100 WBC Normal 0.0 [facility] Comment on above: Performed By: #### B MP, CDP #### [facility] [address] [place], [place] 9[address]83 Catering And Events Manager: Gal Katz MD Platelet mean volume (Bld) [Entitic vol] 9.4 fL Normal 8.1-13.5 [facility] Comment on above: Performed By: #### B MP, CDP #### [facility] [address] [place], [place] 736[address]83 Catering And Events Manager: Gal Katz MD Platelets (Bld) [#/Vol] 327 10*3/uL Normal 138-453 [facility] Comment on above: Performed By: #### B MP, CDP #### [address] [place], [place] 4794583 Catering And Events Manager: Gal Katz MD RBC (Bld) [#/Vol] 4.65 10*6/uL Normal 3.95-5.11 [facility] Comment on above: Performed By: #### B MP, CDP #### [address] [place], [place] [address]65[address]83 Catering And Events Manager: Gal Katz MD WBC (Bld) [#/Vol] 11.6 10*3/uL High 3.5-11.3 [facility] Comment on above: Performed By: #### B MP, CDP #### [facility] [address] [place] [address] [place] [place], [place] [phone] Catering And Events Manager: Gal aKtz MD HCG, Quanton 04-27-2024 HCG, Quant 79773.0 mIU/mL High 0-7 [facility] Comment on above: Result Comment: Non-preg premeno <=5 Postmeno <=8 Male <=3 If HCG results do not concur with clinical observations, additional testing to confirm results is recommended. Performed By: #### B HCG #### [facility] [address] [place], [place] [phone] Catering And Events Manager: Gal Katz MD HCG, Quantitative, on 04-27-2024 [place] [address].0 m[IU]/mL High [facility] Comment on above: Non-preg premeno <=5 Postmeno <=8 Male <=3 If HCG results do not concur with clinical observations, additional testing to confirm results is recommended. Interpretation and review of laboratory results Abnormal [facility] TYPE AND SCREENon 04-27-2024 ABO and Rh group Nom (Bld) Blood group A Rh(D) positive [facility] Arm Band Number [id number] [facility] Blood Bank Sample Expiration 04/30/2024,2359 [facility] Blood group antibodies identified Nom Negative [facility] Type + Screenon 04-27-2024 Type + Screen Sample Expiration 04/30/2024,2359 Arm Band Number [id number] ABO/Rh(D) A POSITIVE Antibody Screen NEGATIVE Normal [facility] Comment on above: Performed By: #### T YS #### [facility] [address] [place] [address] Catering And Events Manager: Gal Katz MD US OB LESS THAN [...] Onur Mack MD 04/27/24 Final result Normal [facility] Single viable intrauterine with an estimated [...] gas No adnexal mass or free fluid. [facility] CONSOLIDATED EXAMINATION: FIRST TRIMESTER [...] adnexal mass or free fluid is seen. [facility] Onur Mack MD [...] gas No adnexal mass or free fluid. [facility] Radiology Study observation (narrative) [facility] US OB LESS THAN 14 WEEKS SIN GLE OR FIRST GESTATION W DOPPLEROrdered By: Onur Mack on 04-27-2024 [facility] Work Phone: Urinalysis w/ Microon 2024 Bacteria 1+ Abnormal NONE [facility] Comment on above: Performed By: #### U AMIC #### [facility] [address] [place] [address] Catering And Events Manager: Gal Katz MD Bilirubin, SemiQt,Ur Negative Normal NEG [facility] Comment on above: Performed By: #### U AMIC #### [facility] [address] [place] [address] Catering And Events Manager: Gal Katz MD Blood, Urine 1+ Abnormal NEG [facility] Comment on above: Performed By: #### U AMIC #### [facility] [address] [place], [place] [address]83 Catering And Events Manager: Gal Katz MD Clarity (U) SLIGHTLY CLOUDY Abnormal CLEAR [facility] Comment on above: Performed By: #### U AMIC #### [facility] [address] [place], [place] 30[address]83 Catering And Events Manager: Gal Katz MD Color (U) Yellow Normal YEL [facility] Comment on above: Performed By: #### U AMIC #### [facility] [address] [place], [place] 3647883 Catering And Events Manager: Gal Katz MD Epithelial cells LM Ql (Urine sed) 20 TO 50 Normal 0-25 [facility] Comment on above: Performed By: #### U AMIC #### [facility] [address] [place], [place] [phone] Catering And Events Manager: Gal Katz MD Glucose Ql (U) Negative Normal NEG [facility] in [facility] Comment on above: Performed By: #### U AMIC #### [facility] [address] [place], [place] 372[address]83 Catering And Events Manager: Gal Katz MD Ketones Ql (U) Negative Normal NEG [facility] Comment on above: Performed By: #### U AMIC #### [facility] [address] [place] [address] Catering And Events Manager: Gal Katz MD Leukocyte esterase Test strip Ql (U) Negative Normal NEG [facility] Comment on above: Performed By: #### U AMIC #### [facility] [address] [place], [place] 1308583 Catering And Events Manager: Gal Katz MD Nitrite,Ur Negative Normal NEG [facility] Comment on above: Performed By: #### U AMIC #### [facility] [address] [place], [place] 540[address]83 Catering And Events Manager: Gal Katz MD PH,Ur 6.0 Normal 5.0-9.0 [facility] Comment on above: Performed By: #### U AMIC #### [facility] [address] [place] [address] [place], [place] [phone] Catering And Events Manager: Gal Katz MD Protein Ql (U) Negative Normal NEG [facility] Comment on above: Performed By: #### U AMIC #### [facility] [address] [place] [address] [place] [address] Catering And Events Manager: Gal Katz MD Spec. [place],Ur 1.025 High 1.010-1.020 [facility] Comment on above: Performed By: #### U AMIC #### [address] [place], [place] [id number] Catering And Events Manager: Gal Katz MD Urine RBC's 2 TO 5 Normal 0-2 [facility] Comment on above: Performed By: #### U AMIC #### [address] [place] [address] Catering And Events Manager: Gal Ktaz MD Urine WBC's 2 TO 5 Normal 0-5 [facility] Comment on above: Performed By: #### U AMIC #### [address] [place], [place] [id number] Catering And Events Manager: Gal Katz MD Urobilinogen,Ur Normal Normal 0.0-1.0 [facility] Comment on above: Performed By: #### U AMIC #### [facility] [address] [place] [address] [place] [place], [place] [id number] Catering And Events Manager: Gal Katz MD Urinalysis with Microscopico n 04-27-2024 Bacteria LM Ql (Urine sed) 1+ Abnormal None [facility] Bilirubin Ql (U) Negative NEGATIVE [facility] Clarity (U) SLIGHTLY CLOUDY Abnormal Clear [facility] Color (U) Yellow Yellow [facility] Epithelial cells LM.HPF (Urine sed) [#/Area] 20 TO 50 [facility] Glucose Test strip (U) [Mass/Vol] Negative NEGATIVE mg/dL [facility] Hemoglobin Auto test strip Ql (U) 1+ Abnormal NEGATIVE [facility] Interpretation and review of laboratory results Abnormal [facility] Ketones (U) [Mass/Vol] Negative NEGAT ROSS mg/dL [facility] Leukocyte esterase Test strip Ql (U) Negative NEGATIVE [facility] Nitrite Ql (U) Negative NEGATIVE [facility] pH (U) 6.0 [pH] 5.0 - 9.0 [facility] Protein (U) [Mass/Vol] Negative NEGAT ROSS mg/dL [facility] RBC LM.HPF (Urine sed) [#/Area] 2 TO 5 [facility] Specific gravity (U) [Rel density] 1.025 High 1.010 - 1.020 [facility] Urobilinogen Qn (U) Normal 0.0 - 1. 0 EU/dL [facility] WBC LM.HPF (Urine sed) [#/Area] 2 TO 5 [facility] POCT , urineon 05-0 Beta HCG ( test) Ql (U) Negative [facility] Interpretation and review of laboratory results Normal [facility] Vital Signs Date Time Vital Sign Value Performing Clinician Facility 12-01-2024 11:00-0400 Body mass index (BMI) [Ratio] 39.39 kg/m2 Tiffany Ornelas MD Work Phone: [facility] 12-01-2024 11:00-0400 Body weight 104.1 kg Tiffany Ornelas MD Work Phone: [facility] 12-01-2024 11:00-0400 Diastolic blood pressure 78 mm[Hg] Tiffany Ornelas MD Work Phone: [facility] 12-01-2024 11:00-0400 Systolic blood pressure 122 mm[Hg] Tiffany Ornelas MD Work Phone: [facility] 11-28-2024 11:20-0400 Body height 162.6 cm Edil Snow MD Work Phone: [facility] 11-28-2024 11:20-0400 Body mass index (BMI) [Ratio] 37.8 kg/m2 Edil Snow MD Work Phone: [facility] 11-28-2024 11:20-0400 Body weight 99.88 kg Edil Snow MD Work Phone: [facility] 11-28-2024 11:20-0400 Diastolic blood pressure 84 mm[Hg] Edil Snow MD Work Phone: [facility] 11-28-2024 11:20-0400 Heart rate 82 /min Edil Snow MD Work Phone: [facility] 11-28-2024 11:20-0400 Systolic blood pressure 122 mm[Hg] Edil Snow MD Work Phone: [facility] 11-24-2024 14:34-0400 Body mass index (BMI) [Ratio] 38.04 kg/m2 Giacomo Horne MD Work Phone: [facility] 11-24-2024 14:34-0400 Body weight 100.56 kg Giacomo Horne MD Work Phone: [facility] 11-24-2024 14:34-0400 Diastolic blood pressure 82 mm[Hg] Giacomo Horne MD Work Phone: [facility] 11-24-2024 14:34-0400 Systolic blood pressure 130 mm[Hg] Giacomo Horne MD Work Phone: [facility] 11-17-2024 14:24-0400 Body mass index (BMI) [Ratio] 37.62 kg/m2 Giacomo Horne MD Work Phone: [facility] 11-17-2024 14:24-0400 Body weight 99.47 kg Giacomo Horne MD Work Phone: [facility] 11-17-2024 14:24-0400 Diastolic blood pressure 70 mm[Hg] Giacomo Horne MD Work Phone: [facility] 11-17-2024 14:24-0400 Systolic blood pressure 126 mm[Hg] Giacomo Horne MD Work Phone: [facility] 11-03-2024 13:18-0400 Body mass index (BMI) [Ratio] 36.68 kg/m2 Tiffany Ornelas MD Work Phone: [facility] 11-03-2024 13:18-0400 Body weight 96.98 kg Tiffany Ornelas MD Work Phone: [facility] 10-30-2024 11:15-0400 Body height 162.6 cm Angela Gardner MD Work Phone: [facility] 10-30-2024 11:15-0400 Body mass index (BMI) [Ratio] 37.13 kg/m2 Angela Gardner MD Work Phone: [facility] 10-30-2024 11:15-0400 Body weight 98.16 kg Angela Gardner MD Work Phone: [facility] 10-30-2024 11:15-0400 Diastolic blood pressure 82 mm[Hg] Angela Gardner MD Work Phone: [facility] 10-30-2024 11:15-0400 Heart rate 91 /min Angela Gardner MD Work Phone: [facility] 10-30-2024 11:15-0400 Systolic blood pressure 122 mm[Hg] Angela Gardner MD Work Phone: [facility] 10-23-2024 14:04-0400 Diastolic blood pressure 64 mm[Hg] [facility] 10-23-2024 14:04-0400 Heart rate 88 /min [facility] 10-23-2024 14:04-0400 Systolic blood pressure 132 mm[Hg] [facility] N[facility]1 [facility] 10-19-2024 14:01-0400 Body mass index (BMI) [Ratio] 36.03 kg/m2 Rain Sandovalyatis DO Work Phone: [facility] 10-19-2024 14:01-0400 Body weight 95.25 kg Rainmarva Sandovalyatis DO Work Phone: [facility] 10-19-2024 14:01-0400 Diastolic blood pressure 68 mm[Hg] Rain Sandovalyatis DO Work Phone: [facility] 10-19-2024 14:01-0400 Systolic blood pressure 122 mm[Hg] Rain Sandovalyatis DO Work Phone: [facility] 10-17-2024 14:37-0400 Body mass index (BMI) [Ratio] 36.05 kg/m2 Jocy Ruby PA Work Phone: [facility] 10-17-2024 14:37-0400 Body weight 95.25 kg Jocy Ruby PA Work Phone: [facility] 10-17-2024 14:37-0400 Diastolic blood pressure 78 mm[Hg] Jocy Ruby PA Work Phone: [facility] 10-17-2024 14:37-0400 Systolic blood pressure 124 mm[Hg] Jocy Ruby PA Work Phone: [facility] 10-17-2024 12:13-0400 Body height 162.56 cm Armen Furlong DO Work Phone: [facility] 10-17-2024 12:13-0400 Body mass index (BMI) [Ratio] 35.9 kg/m2 Armen Furlong DO Work Phone: [facility] 10-17-2024 12:13-0400 Body temperature 98.9 [degF] Armen Furlong DO Work Phone: [facility] 10-17-2024 12:13-0400 Body weight 94.97 kg Armen Furlong DO Work Phone: [facility] 10-17-2024 12:13-0400 Diastolic blood pressure 82 mm[Hg] Armen Furlong DO Work Phone: [facility] 10-17-2024 12:13-0400 Heart rate 96 /min Armen Furlong DO Work Phone: [facility] 10-17-2024 12:13-0400 Respiratory rate 19 /min Armen Furlong DO Work Phone: [facility] 10-17-2024 12:13-0400 SaO2% (BldA) [Mass fraction] 98 % Armen Furlong DO Work Phone: [facility] 10-17-2024 12:13-0400 Systolic blood pressure 129 mm[Hg] Armen Furlong DO Work Phone: [facility] 10-03-2024 09:04-0400 Body height 162.6 cm Curtis Jeannine DO Work Phone: [facility] 10-03-2024 09:00-0400 Body mass index (BMI) [Ratio] 34.84 kg/m2 Curtis Jeannine DO Work Phone: [facility] 10-03-2024 09:00-0400 Body weight 92.08 kg Curtis Jeannine DO Work Phone: [facility] 10-03-2024 09:00-0400 Diastolic blood pressure 74 mm[Hg] Curtis Jeannine DO Work Phone: [facility] 10-03-2024 09:00-0400 Systolic blood pressure 122 mm[Hg] Curtis Jeannine DO Work Phone: [facility] 09-29-2024 16:29-0400 Diastolic blood pressure 72 mm[Hg] Edil Snow MD Work Phone: [facility] [facility] 09-29-2024 16:29-0400 Heart rate 83 /min Edil Snow MD Work Phone: [facility] 09-29-2024 16:29-0400 Systolic blood pressure 125 mm[Hg] Edil Snow MD Work Phone: [facility] 09-10-2024 23:35-0400 Diastolic blood pressure 73 mm[Hg] Victorino D'Abreau DO Work Phone: [facility] 09-10-2024 23:35-0400 Heart rate 75 /min Victorino D'Abreau DO Work Phone: [facility] 09-10-2024 23:35-0400 Systolic blood pressure 127 mm[Hg] Victorino D'Abreau DO Work Phone: [facility] 09-10-2024 22:22-0400 Body temperature 98.1 [degF] Victorino D'Abreau DO Work Phone: [facility] 09-10-2024 22:22-0400 Respiratory rate 16 /min Victorino [facility]breau DO [facility] 09-10-2024 22:22-0400 SaO2% (BldA) [Mass fraction] 98 % Victorino D'Abreau DO [facility] 08-30-2024 10:38-0400 Body weight 88.91 kg Jocy YOUNG Work Phone: [facility] 08-30-2024 10:38-0400 Diastolic blood pressure 74 mm[Hg] Jocy YOUNG Work Phone: [facility] 08-30-2024 10:38-0400 Systolic blood pressure 130 mm[Hg] Jocy YOUNG Work Phone: [facility] 08-14-2024 10:57-0400 Body weight 87.91 kg Curtis Jeannine DO Work Phone: [facility] 08-14-2024 10:57-0400 Diastolic blood pressure 70 mm[Hg] Curtis Jeannine DO Work Phone: [facility] 08-14-2024 10:57-0400 Systolic blood pressure 116 mm[Hg] Curtis Jeannine DO Work Phone: [facility] 08-01-2024 13:31-0400 Body weight 85.19 kg Curtis Jeannine DO Work Phone: [facility] 08-01-2024 13:31-0400 Diastolic blood pressure 70 mm[Hg] Curtis Jeannine DO Work Phone: [facility] 08-01-2024 13:31-0400 Systolic blood pressure 120 mm[Hg] Curtis Jeannine DO Work Phone: [facility] 07-28-2024 09:19-0400 Body height 162.6 cm Lyndsey Burns MD Work Phone: [facility] 07-28-2024 09:19-0400 Body mass index (BMI) [Ratio] 32.63 kg/m2 Lyndsey Burns MD Work Phone: [facility] 07-28-2024 09:19-0400 Body weight 86.27 kg Lyndsey Burns MD Work Phone: [facility] 07-28-2024 09:19-0400 Diastolic blood pressure 72 mm[Hg] Lyndsey Burns MD Work Phone: [facility] 07-28-2024 09:19-0400 Heart rate 84 /min Lyndsey Burns MD Work Phone: [facility] 07-28-2024 09:19-0400 Systolic blood pressure 115 mm[Hg] Lyndsey Burns MD Work Phone: [facility] 07-06-2024 09:09-0400 Body weight 84.73 kg Jocy YOUNG Work Phone: [facility] 07-06-2024 09:09-0400 Diastolic blood pressure 72 mm[Hg] Jocy YOUNG Work Phone: [facility] 07-06-2024 09:09-0400 Systolic blood pressure 120 mm[Hg] Jocy YOUNG Work Phone: [facility] 06-08-2024 09:41-0500 Body weight 83.83 kg Curtis Jeannine DO Work Phone: [facility] 06-08-2024 09:41-0500 Diastolic blood pressure 70 mm[Hg] Curtis Jeannine DO Work Phone: [facility] 06-08-2024 09:41-0500 Systolic blood pressure 120 mm[Hg] Curtis Jeannine DO Work Phone: [facility] 05-09-2024 14:22-0500 Body weight 86.09 kg Curtis Jeannine DO Work Phone: [facility] 05-09-2024 14:22-0500 Diastolic blood pressure 72 mm[Hg] Curtis Jeannine DO Work Phone: [facility] 05-09-2024 14:22-0500 Systolic blood pressure 118 mm[Hg] Curtis Jeannine DO Work Phone: [facility] 05-05-2024 10:32-0500 Body weight 83.52 kg [facility] Nurse [facility] 05-05-2024 10:32-0500 Diastolic blood pressure 78 mm[Hg] [facility] Nurse [facility] 05-05-2024 10:32-0500 Systolic blood pressure 120 mm[Hg] [facility] Nurse [facility] 04-27-2024 20:58-0500 SaO2% (BldA) [Mass fraction] 98 % Zully Vallejo MD Work Phone: [facility] 04-27-2024 17:53-0500 Body height 162.6 cm Zully Vallejo MD Work Phone: [facility] 04-27-2024 17:53-0500 Body mass index (BMI) [Ratio] 29.18 kg/m2 Zully Vallejo MD Work Phone: [employer] 04-27-2024 17:53-0500 Body temperature 98.8 [degF] Zully Vallejo MD Work Phone: [employer] 04-27-2024 17:53-0500 Body weight 77.11 kg Zully Vallejo MD Work Phone: [employer] 04-27-2024 17:53-0500 Diastolic blood pressure 93 mm[Hg] Zully Vallejo MD Work Phone: [employer] 04-27-2024 17:53-0500 Heart rate 90 /min Zully Vallejo MD Work Phone: [employer] 04-27-2024 17:53-0500 Respiratory rate 20 /min Zully Vallejo MD Work Phone: [employer] 04-27-2024 17:53-0500 Systolic blood pressure 150 mm[Hg] Zully Vallejo MD Work Phone: [employer] 01-27-2024 09:54-0400 Body height 162.6 cm [employer] DO [facility] 01-27-2024 09:54-0400 Body mass index (BMI) [Ratio] 28.15 kg/m2 Armen Furlong DO [facility] 01-27-2024 09:54-0400 Body temperature 97.7 [degF] Armen Furlong DO [facility] 01-27-2024 09:54-0400 Body weight 74.39 kg Armen Furlong DO [facility] 01-27-2024 09:54-0400 Diastolic blood pressure 72 mm[Hg] Armen Furlong DO [facility] 01-27-2024 09:54-0400 Heart rate 89 /min Armen Furlong DO Work Phone: [facility] 01-27-2024 09:54-0400 Respiratory rate 18 /min Armen Furlong DO Work Phone: [facility] 01-27-2024 09:54-0400 SaO2% (BldA) [Mass fraction] 99 % Armen Furlong DO Work Phone: [facility] 01-27-2024 09:54-0400 Systolic blood pressure 118 mm[Hg] Armen Furlong DO Work Phone: [facility] 10-27-2023 10:26-0400 Body height 162.6 cm Armen Furlong DO Work Phone: [facility] 10-27-2023 10:26-0400 Body mass index (BMI) [Ratio] 29.94 kg/m2 Armen Furlong DO Work Phone: [facility] 10-27-2023 10:26-0400 Body temperature 97.81 [degF] Armen Furlong DO Work Phone: [facility] 10-27-2023 10:26-0400 Body weight 79.11 kg Armen Furlong DO Work Phone: [facility] 10-27-2023 10:26-0400 Diastolic blood pressure 60 mm[Hg] Armen Furlong DO Work Phone: [facility] 10-27-2023 10:26-0400 Heart rate 71 /min Armen Furlong DO Work Phone: [facility] 10-27-2023 10:26-0400 SaO2% (BldA) [Mass fraction] 99 % Armen Furlong DO Work Phone: [facility] 10-27-2023 10:26-0400 Systolic blood pressure 100 mm[Hg] Armen Furlong DO Work Phone: [facility] 09-27-2023 10:05-0400 Body height 162.6 cm Armen Furlong DO Work Phone: [facility] 09-27-2023 10:05-0400 Body mass index (BMI) [Ratio] 30.59 kg/m2 Armen Furlong DO Work Phone: [facility] 09-27-2023 10:05-0400 Body temperature 97.81 [degF] Armen Furlong DO Work Phone: [facility] 09-27-2023 10:05-0400 Body weight 80.83 kg Armen Furlong DO Work Phone: [facility] 09-27-2023 10:05-0400 Diastolic blood pressure 62 mm[Hg] Armen Furlong DO Work Phone: [facility] 09-27-2023 10:05-0400 Heart rate 81 /min Armen Furlong DO Work Phone: [facility] 09-27-2023 10:05-0400 SaO2% (BldA) [Mass fraction] 99 % Armen Furlong DO Work Phone: [facility] 09-27-2023 10:05-0400 Systolic blood pressure 100 mm[Hg] Armen Furlong DO Work Phone: [facility] 09-01-2023 11:00-0400 Body height 162.6 cm P[facility] 1 [facility] 09-01-2023 11:00-0400 Body mass index (BMI) [Ratio] 31.58 kg/m2 Pmh 1 [facility] 09-01-2023 11:00-0400 Body weight 83.46 kg Pmh 1 [facility] 08-25-2023 09:33-0400 Body height 162.6 cm Armen Power[employer] DO Work Phone: [facility] 08-25-2023 09:33-0400 Body mass index (BMI) [Ratio] 31.72 kg/m2 Armen Furlong DO Work Phone: [facility] 08-25-2023 09:33-0400 Body temperature 98.71 [degF] Armen Furlong DO Work Phone: [facility] 08-25-2023 09:33-0400 Body weight 83.83 kg Armen Furlong DO Work Phone: [facility] 08-25-2023 09:33-0400 Diastolic blood pressure 62 mm[Hg] Armen Furlong DO Work Phone: [facility] 08-25-2023 09:33-0400 Heart rate 89 /min Armen Furlong DO Work Phone: [facility] 08-25-2023 09:33-0400 Respiratory rate 18 /min Armen Furlong DO Work Phone: [facility] 08-25-2023 09:33-0400 SaO2% (BldA) [Mass fraction] 98 % Armen Furlong DO Work Phone: [facility] 08-25-2023 09:33-0400 Systolic blood pressure 98 mm[Hg] Armen Furlong DO Work Phone: [facility] 08-10-2023 09:46-0400 Body height 162.6 cm Claire Robertson MD Work Phone: [facility] 08-10-2023 09:46-0400 Body mass index (BMI) [Ratio] 33.3 kg/m2 Claire Robertson MD Work Phone: [facility] 08-10-2023 09:46-0400 Body weight 88 kg Claire Robertson MD Work Phone: [facility] 08-10-2023 09:46-0400 Diastolic blood pressure 70 mm[Hg] Claire Robertson MD Work Phone: [facility] 08-10-2023 09:46-0400 Systolic blood pressure 128 mm[Hg] Claire Robertson MD Work Phone: [facility] Encounters Encounter Date Encounter Type Care Provider Facility Start: 12-01-2024 End: 12-01-2024 Clinisync Result Encounter Curtis Busbyo DO Work Phone: [facility] External [facility] Unsolicited Start: 12-01-2024 End: 12-01-2024 Clinisync Result Encounter Curtis Busbyo DO Work Phone: [facility] External [facility] Unsolicited Start: 12-01-2024 End: 12-01-2024 [facility] Start: 12-01-2024 End: 12-01-2024 Patient encounter procedure Tiffany Ornelas MD Work Phone: [facility] Comment on above: GA: 38w3d Start: 11-28-2024 End: 11-28-2024 Office outpatient visit 25 minutes Edil Snow MD Work Phone: [facility] Comment on above: 38 weeks gestation o f (Primary Dx); Cystic fibrosis carrier, antepartum; Abnormal genetic test during ; Obesity affecting in third trimester, unspecified obesity type Start: 11-28-2024 End: 11-28-2024 Orders Only Juhi Reza RN [facility] Comment on above: Abnormal ultrasonic finding on screening of mother, antepartum (Primary Dx); Supervision of high risk in third trimester; Cystic fibrosis carrier, antepartum Start: 11-24-2024 End: 11-24-2024 Patient encounter procedure Giacomo Horne MD Work Phone: [facility] Comment on above: GA: 37w3d Start: 11-24-2024 End: 11-24-2024 [facility] Start: 11-23-2024 End: 11-23-2024 Clinisync Result Encounter Curtis Busbyo DO Work Phone: [facility] External [facility] Unsolicited Start: 11-23-2024 End: 11-23-2024 Clinisync Result Encounter Curtis Jeannine DO Work Phone: [facility] External [facility] Unsolicited Start: 11-21-2024 End: 11-21-2024 Orders Only Laura Romerosarah RDTN [facility] Comment on above: Abnormal ultrasonic finding on screening of mother, antepartum (Primary Dx) Start: 11-17-2024 End: 11-17-2024 Patient encounter procedure Giacomo Horne MD Work Phone: [facility] Comment on above: GA: 36w3d Start: 11-17-2024 End: 11-17-2024 [facility] Start: 11-16-2024 End: 11-17-2024 Clinisync Result Encounter Curtis Jeannine DO Work Phone: [facility] External [facility] Unsolicited Start: 11-16-2024 End: 11-17-2024 Clinisync Result Encounter Curtis Jeannine DO Work Phone: [facility] External [facility] Unsolicited Start: 11-14-2024 End: 11-14-2024 [facility] Start: 11-09-2024 End: 11-09-2024 Clinisync Result Encounter Curtis Jeannine DO Work Phone: [facility] External [facility] Unsolicited Start: 11-09-2024 End: 11-09-2024 Clinisync Result Encounter Curtis Jeannine DO Work Phone: [facility] Unsolicited Start: 11-07-2024 End: 11-07-2024 [facility] Start: 11-03-2024 End: 11-03-2024 [facility] Start: 11-03-2024 End: 11-03-2024 Subsequent care visit Tiffany Ornelas MD Work Phone: [facility] Comment on above: [...] Work Phone: [facility] Comment on above: Cystic fibrosis fletcher ier, antepartum (Primary Dx); Maternal care for other (suspected) abnormality and damage, gastrointestinal anomalies, not applicable or unspecified; Overweight Start: 10-30-2024 End: 10-30-2024 Orders Only Jocy Maradiaga FIELD ADJUSTER [facility] Comment on above: Supervision of high [...] Work Phone: [facility] Start: 10-23-2024 End: 10-23-2024 ambulatory Tt Mfm Nst1 [facility] Comment on above: Cystic fibrosis flecther ier, antepartum (Primary Dx); Supervision of high risk in third trimester; Overweight Start: 10-19-2024 End: 10-19-2024 Clinisync Result Encounter Curtis Paez DO Work Phone: [facility] Unsolicited Start: 10-19-2024 End: 10-19-2024 Clinisync Result Encounter Curtis Paez DO Work Phone: [facility] Unsolicited Start: 10-19-2024 End: 10-19-2024 ambulatory Rain Iverson DO Work Phone: [facility] Comment on above: GA: 32w2d Start: 10-17-2024 End: 10-17-2024 flow sheet Jocy YOUNG Work Phone: [facility] Comment on above: Third trimester preg melissa ([facility]); 32 weeks gestation of ([facility]); H/O LEEP; Cystic fibrosis carrier, antepartum ([facility]); HSV infection Start: 10-17-2024 End: 10-17-2024 Bamboo flowsheet Jocy YOUNG Work Phone: [facility] Start: 10-17-2024 End: 10-17-2024 Bamboo flowsheet Jocy YOUNG Work Phone: [facility] Start: 10-17-2024 End: 10-17-[address] DO Work Phone: [facility] Work Phone: Start: 10-17-2024 End: 10-17-2024 Patient encounter procedure Esther Bunch [facility] Work Phone: Start: 10-13-2024 End: 10-13-2024 Orders Only Miriam Joseph RN Maternal- Medicine at [facility] Comment on above: Abnormal genetic jono t during (Primary Dx); Maternal care for other (suspected) abnormality and damage, gastrointestinal anomalies, not applicable or unspecified; Cystic fibrosis carrier Start: 10-12-2024 End: 10-12-2024 [facility] Start: 10-12-2024 End: 10-13-2024 Clinisync Result Encounter Curtis Jeannine DO Work Phone: [facility] External Department Unsolicited Start: 10-12-2024 End: 10-13-2024 Clinisync Result Encounter Curtis Jeannine DO Work Phone: [facility] External Department Unsolicited Start: 10-10-2024 End: 10-10-2024 Chart abstracting Lyric Sánchez RN [facility] Start: 10-05-2024 End: 10-05-2024 [facility] Start: 10-04-2024 End: 10-04-2024 Clinisync Result Encounter Curtis Jeannine DO Work Phone: [facility] External Department Unsolicited Start: 10-04-2024 End: 10-04-2024 Clinisync Result Encounter Curtis Jeannine DO Work Phone: [facility] External Department Unsolicited Start: 10-03-2024 End: 10-03-2024 flow sheet Curtis Jeannine DO Work Phone: [facility] Comment on above: Third trimester preg melissa ([facility]-HCC); Cystic fibrosis carrier, antepartum ([facility]); Moderate episode of recurrent major depressive disorder (HCC); History of loop electrosurgical excision procedure (LEEP) of cervix affecting , antepartum ([facility]); HSV infection; 30 weeks gestation of ([facility]); Maternal care for other (suspected) abnormality and damage, gastrointestinal anomalies, not applicable or unspecified ([facility]) Start: 09-29-2024 End: 09-29-2024 [facility] Start: 09-29-2024 End: 09-29-2024 Office outpatient visit 25 minutes Edil Snow MD Work Phone: Maternal- Medicine at [facility] Comment on above: 29 weeks gestation o f (Primary Dx); Cystic fibrosis carrier; Maternal care for other (suspected) abnormality and damage, gastrointestinal anomalies, not applicable or unspecified Start: 09-29-2024 End: 09-29-2024 ambulatory LYNDSEY BURNS [facility] Start: 09-25-2024 End: 09-25-2024 Clinisync Result [...] Second trimester (HHS-HCC); 27 weeks gestation of ([facility]); Cystic fibrosis carrier, antepartum ([facility]) Start: 09-18-2024 End: 09-18-2024 Bamboo flowsheet Curtis Jeannine DO Work Phone: [facility] Start: 09-18-2024 End: 09-18-2024 Bamboo flowsheet Curtis Jeannine DO Work Phone: [facility] Start: 09-15-2024 End: 09-15-2024 Telephone encounter Miriam Joseph RN M[facility] Medicine at [facility] Start: 09-10-2024 End: 09-11-2024 [facility] Start: 09-10-2024 End: 09-11-2024 Subsequent hospital visit by physician Victorino Christie DO Work Phone: [email or web address] Start: 09-10-2024 Emergency department patient visit [facility] Start: 09-07-2024 End: 09-07-2024 Office outpatient new 45 minutes Rashida Alvarez MD Work Phone: [facility] Comment on above: Cystic fibrosis fletcher ier (Primary Dx); Encounter for consultation Start: 09-07-2024 End: 09-07-2024 Orders Only Miriam Joseph RN Maternal- Medicine at [facility] Comment on above: Cystic fibrosis fletcher [...] gestation of Start: 08-25-2024 End: 08-25-2024 ambulatory [facility] Start: 08-18-2024 End: 08-18-2024 Orders Only Barbra Samuel RN Maternal- Medicine at [facility] Start: 08-17-2024 End: 08-18-2024 Telephone encounter Rachel Rodriguez [facility] Work Phone: Maternal- Medicine at [facility] Start: 08-14-2024 End: 08-14-2024 Patient encounter [...] Work Phone: Maternal- Medicine at [facility] Comment on above: Cystic fibrosis fletcher ier (Primary Dx) Start: 07-28-2024 End: 07-28-2024 Orders Only Miriam Joseph RN Maternal- Medicine at [facility] Comment on above: Cystic fibrosis fletcher ier (Primary Dx); Abnormal genetic test during Start: 07-12-2024 End: 07-12-2024 Telephone encounter Rachel Rodriguez [facility] Work Phone: Maternal- Medicine at [facility] Start: 07-11-2024 End: 07-11-2024 Bamboo flowsheet Emi Bronson [facility] Work Phone: [facility] Start: 07-11-2024 End: 07-11-2024 Bamboo flowsheet Emi Bronson [facility] Work Phone: [facility] Start: 07-11-2024 End: 07-11-2024 Clinical Support Emi Bronson [facility] Work Phone: [facility] Comment on above: Moderate episode of recurrent major depressive disorder (CMS/HCC); ALICIA (generalized anxiety disorder) (CMS/HCC) Start: 07-06-2024 End: 07-06-2024 Bamboo flowsheet Jocy YOUNG Work Phone: [facility] Start: 07-06-2024 End: 07-10-2024 Bamboo flowsheet Jocy YOUNG Work Phone: [facility] Start: 07-06-2024 End: 07-10-2024 Clinisync Result Encounter Jocy YOUNG Work Phone: [facility] External Department Unsolicited Start: 07-06-2024 End: 07-07-2024 External Result Encounter Jocy YOUNG Work Phone: [facility] External Department Unsolicited Start: 07-06-2024 End: 07-06-2024 Patient encounter procedure Jocy YOUNG Work Phone: [facility] Start: 07-06-2024 End: 07-06-2024 Periodic preventive med est patient 18-39 yrs Jocy YOUNG Work Phone: [facility] Comment on above: 17 weeks gestation o f ; Second trimester ; Well woman exam with routine gynecological exam; Exposure to STD; Vaginal discharge Start: 07-05-2024 End: 07-05-2024 Clinisync Result Encounter Curtis Busbyo DO Work Phone: [facility] External Department Unsolicited Start: 07-05-2024 End: 07-05-2024 Clinisync Result Encounter Curtis Jeannine DO Work Phone: [facility] External Department Unsolicited Start: 06-20-2024 End: 06-20-2024 Telephone encounter Lara Lovelace [facility] at [facility] Start: 06-20-2024 End: 06-20-2024 Telemedicine consultation with patient Rachel Andrei Rodriguez [facility] Work Phone: Maternal- Medicine at [facility] Comment on above: Cystic fibrosis fletcher ier (Primary Dx); Abnormal genetic test during ; Family history of developmental delay; Family history of spina bifida Start: 06-20-2024 End: 06-20-[address] [facility] Start: 06-16-2024 End: 06-16-2024 Chart abstracting Scanning Provider External Maternal- Medicine at [facility] Start: 06-08-2024 End: 06-08-2024 Bamboo flowsheet [...] 05-24-2024 End: 05-24-2024 Clinical Support Emi Bronson [facility] Work Phone: [facility] Comment on above: Moderate episode of [...] flowsheet Curtis Jeannine DO Work Phone: [facility] Start: 05-09-2024 End: 05-09-2024 flow sheet Curtis Paez DO Work Phone: [facility] OB Comment on above: Missed menses; 9 weeks gestation of ; H/O LEEP Start: 05-05-2024 End: 05-05-2024 Office outpatient visit 5 minutes [facility] Jeannine Nurse [facility] Comment on above: GA: 8w3d Start: 05-03-2024 End: 05-03-[address] DO Work Phone: [facility] Start: 05-02-2024 End: 05-02-2024 Bamboo flowsheet Emi Bronson [facility] Work Phone: [facility] Start: 05-02-2024 End: 05-02-2024 Bamboo flowsheet Emi Bronson [facility] Work Phone: [facility] Start: 05-02-2024 End: 05-02-2024 Clinical Support Emi Bronson [facility] Work Phone: [facility] Comment on above: Moderate episode of recurrent major depressive disorder (CMS/HCC); ALICIA (generalized anxiety disorder) (CMS/HCC) Start: 04-27-2024 End: 04-27-2024 Emergency department patient visit Zully Vallejo MD Work Phone: [facility] Emergency Department Comment on above: Abdominal [...] Dx); Overweight Start: 01-27-2024 End: 01-27-2024 ambulatory [facility] Start: 01-21-2024 End: 01-21-2024 Refill [facility] DO Work Phone: [facility] Internal Medicine - Family Medicine Start: 12-13-2023 End: 12-13-2023 Bamboo flowsheet Emi Jerryro LPCC Work Phone: [facility] Start: 12-13-2023 End: 12-13-2023 Bamboo flowsheet Emi Munson Aiyana LPCC Work Phone: [facility] Start: 12-13-2023 End: 12-13-2023 Clinical Support Emi Davisdaro LPCC Work Phone: [facility] Comment on above: Moderate episode of recurrent major depressive disorder (HCC) (CMS/HCC); ALICIA (generalized anxiety disorder) ([facility]/HCC) Start: 11-29-2023 End: 11-29-2023 Bamboo flowsheet Emi Jerryro LPCC Work Phone: [facility] Start: 11-29-2023 End: 11-29-2023 Bamboo flowsheet Emi Munson Aiyana LPCC Work Phone: [facility] Start: 11-29-2023 End: 11-29-2023 Clinical Support Emi Bronson LPCC Work Phone: [facility] Comment on above: Moderate episode of recurrent major depressive disorder (HCC) (CMS/HCC); ALICIA (generalized anxiety disorder) (CMS/HCC) Start: 10-27-2023 End: 10-27-2023 ambulatory [facility] Start: 10-27-2023 End: 10-27-2023 Office outpatient visit 25 minutes Armen [facility] DO Work Phone: [facility] Internal Medicine - Family Medicine Comment on above: Overweight (Primary Dx); Anxiety; Depression, unspecified depression type; Onychomycosis Start: 10-18-2023 End: 10-18-[address] DO Work Phone: [facility] Internal Medicine - Family Medicine Start: 10-03-2023 End: 10-04-[address] DO Work Phone: [facility] Internal [facility] - Family Medicine Comment on above: Class 1 obesity due to excess calories with body mass index (BMI) of 31.0 to 31.9 in adult, unspecified whether serious comorbidity present Start: 09-27-2023 End: 09-27-2023 Patient encounter status Armen Street DO Work Phone: [facility] Work Phone: Start: 09-27-2023 End: 09-27-2023 Periodic preventive med est patient 18-[address] DO Work Phone: [facility] Internal Medicine - Family Medicine Comment on above: Well adult health ch aashish (Primary Dx); Class 1 obesity due to excess calories without serious comorbidity with body mass index (BMI) of 31.0 to 31.9 in adult; Rectal bleeding; Onychomycosis; Benign skin lesion Start: 09-27-2023 End: 09-27-2023 ambulatory [facility] Start: 09-27-2023 Encounter for genera l adult medical examination without abnormal findings [facility] Start: 09-02-2023 End: 09-02-2023 ambulatory [facility] Pat Phone Call Provider 1 [facility] Ad[facility] Start: 08-25-2023 End: 08-25-2023 Office outpatient new [address] DO Work Phone: [facility] Internal Medicine - Family Medicine Comment on above: Rectal bleeding (Lucita sangeeta Dx); Mild major depression ([facility]-HCC); Class 1 obesity due to excess calories with body mass index (BMI) of 31.0 to 31.9 in adult, unspecified whether serious comorbidity present Start: 08-10-2023 End: 08-10-2023 Encounter for gynecological examination (general) (routine) without abnormal findings [facility] Start: 08-10-2023 End: 08-10-2023 Initial preventive medicine new pt age 18-39yrs Claire Robertson MD Work Phone: [facility] Obstetrics/Gynecology Comment on above: Encounter for gyneco logical examination without abnormal finding (Primary Dx); Screening for STD (sexually transmitted disease); Pap smear, as part of routine gynecological examination; Encounter for initial prescription of vaginal ring hormonal contraceptive Start: 08-10-2023 End: 08-10-2023 Patient encounter status Claire Robertson MD Work Phone: [facility] Procedures Date Procedure Procedure Detail Performing Clinician Start: 12-01-2024 US OB BPP W NON-STRESS Curtis Jeannine DO Work Phone: Start: 11-23-2024 US OB BPP W NON-STRESS [...] 60 yrs+ (1 - 1-dose 75+ series) [facility] Start: 11-03-2034 DTaP,Tdap and Td Vaccines (3 - Td or Tdap) DTaP,Tdap and Td Vaccines (3 - Td or Tdap) [facility] Start: 11-03-2034 DTaP,Tdap and Td Vaccines (8 - Td or Tdap) DTaP,Tdap and Td Vaccines (8 - Td or Tdap) [facility] Start: 08-16-2028 DTaP,Tdap and Td Vaccines (2 - Td or Tdap) DTaP,Tdap and Td Vaccines (2 - Td or Tdap) [facility] Start: 05-14-2029 DTaP/Tdap/Td vaccine (2 - Td or Tdap) DTaP/Tdap/Td vaccine (2 - Td or Tdap) [facility] Start: 07-07-2027 Screening for malign ant neoplasm of cervix Pap Smear [facility] Start: 08-09-2026 Screening for malign ant neoplasm of cervix Pap Smear [facility] Start: 12-01-2025 Adult BMI Screening Adult BMI Screen ing [facility] Start: 12-01-2025 Tobacco Screening Tobacco Screening [facility] Start: 11-28-2025 Adult BMI Screening Adult BMI Screen ing [facility] Start: 11-28-2025 Tobacco Screening Tobacco Screening [facility] Start: 11-28-2025 End: 11-28-2025 US MFM with or without consult US MFM with or without consult Imaging Routine Abnormal ultrasonic finding on screening of mother, antepartum Supervision of high risk in third trimester Cystic fibrosis carrier, antepartum Expected: 11/28/2025 (Approximate), Expires: 11/28/2025 [employer] Work Phone: Comment on above: Expected: 11/28/2025 (Approximate), Expires: 11/28/2025 Start: 11-24-2025 Adult BMI Screening Adult BMI Screen ing [facility] Start: 11-24-2025 Tobacco Screening Tobacco Screening [facility] Start: 11-17-2025 Adult BMI Screening Adult BMI Screen ing [facility] Start: 11-17-2025 Tobacco Screening Tobacco Screening [facility] Start: 11-03-2025 Adult BMI Screening Adult BMI Screen ing [facility] Start: 11-03-2025 Tobacco Screening Tobacco Screening [facility] Start: 10-30-2025 Adult BMI Screening Adult BMI Screen ing [facility] Start: 10-30-2025 Tobacco Screening Tobacco Screening [facility] Start: 10-19-2025 Adult BMI Screening Adult BMI Screen ing [facility] Start: 10-19-2025 Tobacco Screening Tobacco Screening [facility] Start: 10-18-2025 Depression Screening Depression Scre ening [facility] Start: 10-13-2025 End: 10-13-2025 US MFM with or without consult US MFM with or without consult Imaging Routine Abnormal genetic test during Maternal care for other (suspected) abnormality and damage, gastrointestinal anomalies, not applicable or unspecified Cystic fibrosis carrier Expected: 10/13/2025 (Approximate), Expires: 10/13/2025 [employer] Work Phone: Comment on above: Expected: 10/13/2025 (Approximate), Expires: 10/13/2025 Start: 09-30-2025 Tobacco Screening Tobacco Screening [facility] Start: 09-07-2025 End: 09-07-2025 US MFM with or without consult US MFM with or without consult Imaging Routine Cystic fibrosis carrier Abnormal genetic test during Expected: 09/07/2025 (Approximate), Expires: 09/07/2025 [employer] Work Phone: Comment on above: Expected: 09/07/2025 (Approximate), Expires: 09/07/2025 Start: 07-28-2025 Adult BMI Screening Adult BMI Screen ing [facility] Start: 07-28-2025 Tobacco Screening Tobacco Screening [facility] Start: 07-28-2025 End: 07-28-2025 US MFM with or without consult US MFM with or without consult Imaging Routine Cystic fibrosis carrier Abnormal genetic test during Expected: 07/28/2025 (Approximate), Expires: 07/28/2025 [employer] Work Phone: Comment on above: Expected: 07/28/2025 (Approximate), Expires: 07/28/2025 Start: 02-24-2025 Tobacco Counseling Tobacco Counselin g [facility] Start: 01-26-2025 Adult BMI Screening Adult BMI Screen ing [facility] Start: 01-26-2025 Tobacco Screening Tobacco Screening [facility] Start: 12-05-2024 End: 12-05-2024 Patient encounter procedure 12/05/2024 3:30 PM EDT Appointment [facility] [address] [place] [address] [facility] Start: 12-04-2024 Influenza vaccination Influenza Vacc ine [facility] Start: 12-01-2024 End: 12-01-2024 Patient encounter procedure 12/01/2024 10:45 AM EDT Routine [facility] [address] [place] [address] [place] [address] [place] [phone] [facility] Start: 11-28-2024 End: 11-28-2024 Patient encounter procedure [facility] Start: 11-24-2024 End: 11-24-2024 Patient encounter procedure 11/24/2024 2:45 PM EDT Routine [facility] [address] [place] [id number] Giacomo Horne MD [address] [place] [address], [place] [address] [facility] Start: 11-21-2024 End: 11-21-2024 Patient encounter procedure [facility] Start: 11-17-2024 End: 11-17-2024 Patient encounter procedure 11/17/2024 2:30 PM EDT Routine [facility] [address] [place] [address] Giacomo Horne MD [address] [place] [address], [place] [address] [facility] Start: 11-14-2024 End: 11-14-2024 Patient encounter procedure 11/14/2024 3:30 PM EDT Appointment [facility] [address] [place] [address] [facility] Start: 11-07-2024 End: 11-07-2024 Patient encounter procedure 11/07/2024 3:00 PM EDT Appointment [facility] [address] [place] [phone] Angela Gardner MD [address] [place], [place] [id number] [facility] Start: 11-06-2024 End: 11-06-2024 Patient encounter procedure 11/06/2024 11:00 AM EDT Appointment [facility] [address] [place] [phone] [facility] Start: 11-03-2024 Influenza vaccination Flu vaccine (S alisha Ended) [facility] Start: 11-03-2024 End: 11-03-2024 Patient encounter procedure 11/03/2024 1:00 PM EDT Routine [facility] [address] [place] [phone] Tiffany Ornelas MD [address] [place] [phone] [facility] Start: 11-01-2024 End: 01-17-2025 US Pelvis transvaginal US OB transvaginal Imaging Routine Third trimester ([facility]) Expected: 11/01/2024, Expires: 01/17/2025 [facility] Work Phone: Comment on above: Expected: 11/01/2024 [...] of spina bifida Expected: 10/30/2024, Expires: 10/30/2025 [facility] Work Phone: Comment on above: Expected: 10/30/2024 , Expires: 10/30/2025 Start: 10-30-2024 End: 10-30-2024 Patient encounter procedure [facility] Start: 10-30-2024 End: 10-30-2024 ambulatory 10/30/2024 9:45 AM EDT Support Visit Maternal- Medicine at [facility] [address] [place] [phone] [facility]- Medicine at [facility] Start: 10-26-2024 Adult BMI Screening Adult BMI Screen ing [facility] Start: 10-26-2024 Depression Screening Depression Scre ening [facility] Start: 10-26-2024 Tobacco Screening Tobacco Screening [facility] Start: 10-23-2024 End: 10-23-2024 Patient encounter procedure 10/23/2024 1:00 PM EDT Appointment [facility] [address] [place] [phone] [facility] Start: 10-19-2024 End: 10-19-2024 Patient encounter procedure 10/19/2024 3:30 PM EDT Appointment [facility] [address] [place] [phone] [facility] Start: 10-19-2024 End: 10-19-2024 ambulatory 10/19/2024 2:00 PM EDT [facility] [address] [place] [address] Rain Iverson, [address] [facility] [address] [address] [facility] Start: 10-17-2024 End: 10-17-2024 Patient encounter procedure [facility] Comment on above: Arrived Start: 10-12-2024 End: 10-12-2024 Patient encounter procedure 10/12/2024 3:15 PM EDT Appointment [facility] [address] [place] [phone] [facility] Start: 10-05-2024 End: 10-05-2024 Patient encounter procedure 10/05/2024 3:30 PM EDT Appointment [facility] [address] [place] [phone] [facility] Start: 10-03-2024 End: 04-05-2025 US biophysical profile w non stress test US biophysical profile w non stress test Imaging Routine Cystic fibrosis carrier, antepartum ([facility]) Maternal care for other (suspected) abnormality and damage, gastrointestinal anomalies, not applicable or unspecified ([facility]) Expected: 10/03/2024 (Approximate), Expires: 04/05/2025 [facility] Work Phone: Comment on above: Expected: 10/03/2024 (Approximate), Expires: 04/05/2025 Start: 10-03-2024 End: 10-03-2024 Patient encounter procedure 10/03/2024 1:40 PM EDT Routine [facility] [address] [place] [address] Curtis Paez DO [address] [place], [place] [phone] [facility] Start: 09-29-2024 End: 09-29-2024 Patient encounter procedure 09/29/2024 3:00 PM EDT Appointment [facility] [address] [place] [address] Lyndsey Burns MD [address], [address] [place] [address] [facility] Start: 09-26-2024 Adult BMI Screening Adult BMI Screen ing [facility] Start: 09-26-2024 Depression Screening Depression Scre ening [facility] Start: 09-26-2024 Tobacco Screening Tobacco Screening [facility] Start: 09-18-2024 End: 09-18-2024 Patient encounter procedure 09/18/2024 3:40 PM EDT Routine [facility] [address] [place] [address] Curtis Paez DO [address] [place], [place] [id number] Arrived [facility] Comment on above: Arrived Start: 09-18-2024 End: 01-18-2025 US for US OB follow up transabdominal approach Imaging Routine Cystic fibrosis carrier, antepartum ([facility]) Expected: 09/18/2024 (Approximate), Expires: 01/18/2025 [facility] Work Phone: Comment on above: Expected: 09/18/2024 (Approximate), Expires: 01/18/2025 Start: 09-02-2024 Adult BMI Screening Adult BMI Screen ing [facility] Start: 09-02-2024 Tobacco Screening Tobacco Screening [facility] Start: 08-30-2024 End: 08-30-2024 Patient encounter procedure 08/30/2024 9:50 AM EDT Routine [facility] [address] [place] [address] Jocy Ruby PA [address] [place], [place] [id number] [facility] Start: 08-25-2024 End: 08-25-2024 Patient encounter procedure 08/25/2024 9:45 AM EDT Appointment [facility] [place] [id number] [place] [phone] [facility] [place] Start: 08-24-2024 Adult BMI Screening Adult BMI Screen ing [facility] Start: 08-24-2024 Depression Screening Depression Scre ening [facility] Start: 08-24-2024 Tobacco Screening Tobacco Screening [facility] Start: 08-10-2024 End: 08-10-2024 Clinical Support 08/10/2024 11:00 AM EDT Clinical Support [facility] [address] [place] [address] Emi Bronson, [facility] [address] [place] [address] [facility] Start: 08-09-2024 Adult BMI Follow Up Plan Adult BMI Follow Up Plan [facility] Start: 08-09-2024 Adult BMI Screening Adult BMI Screen ing [facility] Start: 08-09-2024 Depression Screening Depression Scre ening [facility] Start: 08-07-2024 End: 08-07-2024 Patient encounter procedure 08/07/2024 11:30 AM EDT Procedure Visit [facility] [address] [place] [id number] Curtis Paez, [address] [place] [address] [facility] Start: 08-01-2024 End: 08-01-2025 CBC panel - Blood by Automated count CBC Lab Routine Diabetes mellitus screening Expected: 08/01/2024 (Approximate), Expires: 08/01/2025 [facility] Comment on above: Expected: 08/01/2024 (Approximate), Expires: 08/01/2025 Start: 08-01-2024 End: 08-01-2025 Measurement of glucose 1 hour after glucose challenge for glucose tolerance test Glucose tolerance, 1 hour Lab Routine Diabetes mellitus screening Expected: 08/01/2024 (Approximate), Expires: 08/01/2025 [facility] Comment on above: Expected: 08/01/2024 (Approximate), Expires: 08/01/2025 Start: 08-01-2024 End: 08-01-2024 Patient encounter procedure 08/01/2024 1:20 PM EDT Routine [facility] [address] [address] Curtis Paez DO [address] [place] [address] [facility] Start: 07-28-2024 End: 07-28-2024 Patient encounter procedure [facility] Start: 07-11-2024 End: 07-11-2024 Clinical Support 07/11/2024 12:00 PM EDT Clinical Support [facility] [address] [place] [address] Emi Bronson, [facility] [address] [place] [address] [facility] Start: 07-06-2024 End: 08-05-2024 Alpha fetoprotein, maternal Alpha fetoprotein, maternal Lab Routine 17 weeks gestation of Second trimester Expected: 07/06/2024 (Approximate), Expires: 08/05/2024 [facility] Comment on above: Expected: 07/06/2024 (Approximate), Expires: 08/05/2024 Start: 07-06-2024 End: 07-06-2024 Patient encounter procedure [facility] Comment on above: Arrived Start: 06-20-2024 End: 06-20-2024 Clinical Support [facility] Start: 06-08-2024 End: 06-08-2025 US Pelvis transvaginal US OB transvaginal Imaging Routine 13 weeks gestation of Second trimester History of loop electrosurgical excision procedure (LEEP) of cervix affecting , antepartum Expected: 06/08/2024, Expires: 06/08/2025 [facility] Work Phone: Comment on above: Expected: 06/08/2024 , Expires: 06/08/2025 Start: 06-08-2024 End: 06-08-2024 Patient encounter procedure 06/08/2024 9:20 AM EST Routine [facility] [address] [place] [phone] Curtis Paez DO [address] [place] [address] [facility] Start: 05-24-2024 End: 05-24-2024 Clinical Support 05/24/2024 10:00 AM EST Clinical Support [facility] [address] [place] [address] Emi Bronson, [facility] [address] [place] [address] [facility] Start: 05-09-2024 End: 05-09-2024 Patient encounter procedure [facility] Comment on above: Arrived Start: 05-09-2024 End: 05-09-2025 US Pelvis transvaginal US OB transvaginal Imaging Routine H/O LEEP Expected: 05/09/2024, Expires: 05/09/2025 [facility] Healthcare Comment on above: Expected: 05/09/2024 , Expires: 05/09/2025 Start: 05-05-2024 End: 05-05-2025 ABO/Rh ABO/Rh Lab Routine Missed menses , unspecified gestational age Expected: 05/05/2024 (Approximate), Expires: 05/05/2025 [facility] Comment on above: Expected: 05/05/2024 (Approximate), Expires: 05/05/2025 Start: 05-05-2024 End: 05-05-2025 Blood type and Indirect antibody screen panel - Blood Type and screen Lab Routine Missed menses , unspecified gestational age Expected: 05/05/2024 (Approximate), Expires: 05/05/2025 [facility] Work Phone: Comment on above: [...] AM EST Initial [facility] [address] [facility] [place] [address] [facility] Start: 05-05-2024 End: 05-05-2024 Professional / ancillary services management 05/05/2024 9:30 AM EST Ancillary Procedure [facility] [address] [facility] [place] [phone] [facility] Start: 05-03-2024 End: 05-03-2024 Patient encounter procedure 05/03/2024 10:30 AM EST Office Visit [facility] - [facility] [address] [place] [address], DO [address], [facility] [place] [address] [facility] Start: 05-02-2024 End: 05-02-2024 Telemedicine consultation with patient 05/02/2024 10:45 AM EST Telemedicine [facility] Obstetrics/Gynecology [address] [place] [phone] Angela Monson, CLEANER ASSISTANT-COORDINATOR CARDIOPULMONARY SERVICES [address] [facility] [place], [place] [phone] [facility] Obstetric[facility]necolo gy Start: 01-27-2024 End: 01-27-2024 Patient encounter procedure 01/27/2024 10:00 AM EDT Office Visit [facility] [address] [place] [address] DO [address], [facility] [place] [address] [facility] Start: 12-27-2023 End: 12-27-2023 Clinical Support 12/27/2023 10:00 AM EDT Clinical Support [facility] [address] [place] [address] Emi Bronson, [facility] [address] [place] [address] [facility] Start: 12-13-2023 End: 12-13-2023 Clinical Support 12/13/2023 11:00 AM EDT Clinical Support [facility] [address] [place] [address] Emi Bronson, [facility] [address] [place] [address] [facility] Start: 12-05-2023 COVID-19 Vaccine ( season) COVID-19 Vaccine ( season) [facility] Start: 12-05-2023 COVID-19 Vaccine ( season) COVID-19 Vaccine ( season) [facility] Start: 12-05-2023 COVID-19 Vaccine ( season) COVID-19 Vaccine ( season) [facility] Start: 12-05-2023 Influenza vaccination Influenza Vacc ine [facility] Start: 11-04-2023 Influenza vaccination Flu vaccine (# 1) [facility] Start: 10-28-2023 End: 10-28-2023 Patient encounter procedure 10/28/2023 11:00 AM EDT Office Visit [facility] [address] [place] [address], DO [address] [place] [address] [facility] Start: 10-27-2023 End: 10-27-2023 Patient encounter procedure 10/27/2023 10:15 AM EDT Office Visit [facility] [address] [place] [address], DO [address] [facility] [address] [facility] Start: 09-27-2023 End: 09-27-2023 Patient encounter procedure 09/27/2023 10:00 AM EDT Office Visit [facility] [address] [place] [address], DO [address] [facility] [place] [address] [facility] Start: 09-03-2023 End: 09-03-2023 Admission to same day surgery center 09/03/2023 1:30 PM EDT - 09/03/2023 2:30 PM EDT Surgery [facility] Endoscopy [address] [place] [phone] Scotty Mahoney, DO [address] [facility] [place] [address] COLONOSCOPY DIAGNOSTIC / SCREENING [32522 (CPT )] [facility] Comment on above: COLONOSCOPY DIAGNOST IC / SCREENING [02652 (CPT )] Start: 09-03-2023 End: 09-03-2023 Colonoscopy flx dx w/collj spec when pfrmd COLONOSCOPY DIAGNOSTIC / SCREENING rectal bleeding 09/03/2023 1:30 PM EDT [facility] Start: 09-03-2023 Subsequent hospital visit by physician 09/03/2023 1:30 PM EDT Hospital Encounter [facility] [address] [facility] [place] [address] Scotty Mahoney, DO [address] [facility] [place] [address] [facility] Start: 09-02-2023 End: 09-02-2023 ambulatory 09/02/2023 2:00 PM EDT Support Visit [facility] - Pre Admit [address] [facility] [place] [address] [facility] Pre Admit Start: 08-25-2023 End: 08-25-2023 Patient encounter procedure 08/25/2023 9:20 AM EDT Office Visit [facility] Internal Medicine - Family Medicine [address] [place] [address], DO [address] [facility] [place] [address] [facility] Start: 08-01-2023 Screening for malign ant neoplasm of cervix [facility] Start: 2014 Screening for malign ant neoplasm of cervix Pap smear [facility] Start: 2012 DTaP,Tdap and Td Vaccines (1 - Tdap) DTaP,Tdap and Td Vaccines (1 - Tdap) [facility] Start: 2012 Hepatitis B vaccine (1 of 3 - 19+ 3-dose series) Hepatitis B vaccine (1 of 3 - 19+ 3-dose series) [facility] Start: 2012 Pneumococcal 0-49 ye ars Vaccine (1 of 2 - PCV) Pneumococcal 0-49 years Vaccine (1 of 2 - PCV) [facility] Start: 08-01-2011 Adult BMI Follow Up Plan Adult BMI Follow Up Plan [facility] Start: 08-01-2011 Hepatitis C screening Hepatitis C sc reen [facility] Start: 2008 HIV screening HIV screen [facility] Start: 2006 Varicella vaccine (1 of 2 - 13+ 2-dose series) Varicella vaccine (1 of 2 - 13+ 2-dose series) [facility] Start: 2005 Depression Screen Depression Screen [facility] Start: 2005 Tobacco Screening Tobacco Screening [facility] Start: 08-01-1999 Pneumococcal 0-64 ye ars Vaccine (1 of 2 - PCV) Pneumococcal 0-64 years Vaccine (1 of 2 - PCV) [facility] Bacteria identified in Urine by Culture Urine culture Microbiology Routine Missed menses Ordered: 05/05/2024 [facility] Comment on above: Ordered: 05/05/2024 End: 09-26-2024 CBC panel - Blood by Automated count CBC Lab Routine Rectal bleeding 1 Occurrences starting 09/27/2023 until 09/26/2024 [facility] Comment on above: 1 Occurrences starti ng 09/27/2023 until 09/26/2024 CBC W Auto Different ial panel - Blood CBC and differential Lab Routine Missed menses , unspecified gestational age Ordered: 05/05/2024 [facility] Comment on above: Ordered: 05/05/2024 CHLAMYDIA TRACHOMATI S (GENITO/STI) CHLAMYDIA TRACHOMATIS (GENITO/STI) Lab Routine Exposure to STD Ordered: 07/06/2024 [facility] Comment on above: Ordered: 07/06/2024 CHLAMYDIA TRACHOMATI S (GENITO/STI) CHLAMYDIA TRACHOMATIS (GENITO/STI) Lab Routine Chlamydia trachomatis infection 21 weeks gestation of Second trimester Ordered: 08/01/2024 [facility] Comment on above: Ordered: 08/01/2024 End: 08-09-2024 Chlamydia/GC by PCR ThinPrep fluid Chlamydia/GC by PCR ThinPrep fluid Microbiology Routine Pap smear, as part of routine gynecological examination 1 Occurrences starting 08/10/2023 until 08/09/2024 [facility] Comment on above: 1 Occurrences starti ng 08/10/2023 until 08/09/2024 End: 08-24-2024 Colonoscopy Colonoscopy GI Routine Rectal bleeding 1 Occurrences starting 08/25/2023 until 08/24/2024 [employer] Work Phone: Comment on above: 1 Occurrences starti ng 08/25/2023 until 08/24/2024 End: 09-26-2024 Comprehensive metabolic 2000 panel - Serum or Plasma Comprehensive metabolic panel Lab Routine Well adult health check 1 Occurrences starting 09/27/2023 until 09/26/2024 [facility] Phone: Comment on above: 1 Occurrences starti ng 09/27/2023 until 09/26/2024 Cytology Cervical or vaginal smear or scraping study Pap Smear Pathology and Cytology Routine Well woman exam with routine gynecological exam Ordered: 07/06/2024 [facility] Comment on above: Ordered: 07/06/2024 End: 08-09-2024 Cytopathology procedure, preparation of smear, genital source Pap Smear Pathology and Cytology Routine Pap smear, as part of routine gynecological examination 1 Occurrences starting 08/10/2023 until 08/09/2024 [facility] Comment on above: 1 Occurrences starti ng 08/10/2023 until 08/09/2024 End: 01-19-2025 nonstress test - Maternal Medicine nonstress test - Maternal Medicine OB Routine Supervision of high risk in third trimester Per Treatment Plan for 4 Occurrences starting 10/19/2024 until 01/19/2025 [facility] Phone: Comment on above: Per Treatment Plan f or 4 Occurrences starting 10/19/2024 until 01/19/2025 End: 04-18-2025 HCG, Quantitative, HCG, Quantitative, Lab Routine Positive test 1 Occurrences starting 04/18/2024 until 04/18/2025 [facility] Phone: Comment on above: 1 Occurrences starti ng 04/18/2024 until 04/18/2025 Hemoglobin A1c/Hemoglobin.total in Blood Hemoglobin A1c Lab Routine Missed menses , unspecified gestational age Ordered: 05/05/2024 [facility] Comment on above: Ordered: 05/05/2024 Hepatitis B virus surface Ag [Presence] in Serum or Plasma by Immunoassay Hepatitis B surface antigen Lab Routine Missed menses , unspecified gestational age Ordered: 05/05/2024 [facility] Comment on above: Ordered: 05/05/2024 Hepatitis C virus Ab [Presence] in Serum or Plasma by Immunoassay Hepatitis C antibody Lab Routine Missed menses , unspecified gestational age Ordered: 05/05/2024 [facility] Comment on above: Ordered: 05/05/2024 End: 08-09-2024 Hepatitis panel, acute Hepatitis panel, acute Lab Routine Screening for STD (sexually transmitted disease) 1 Occurrences starting 08/10/2023 until 08/09/2024 [facility] Comment on above: 1 Occurrences starti ng 08/10/2023 until 08/09/2024 End: 08-09-2024 High risk HPV w/faustina High risk HPV w/faustina Lab Routine Pap smear, as part of routine gynecological examination 1 Occurrences starting 08/10/2023 until 08/09/2024 [facility] Comment on above: 1 Occurrences starti ng 08/10/2023 until 08/09/2024 End: 08-09-2024 HIV 1&2 AB/AG Screen (P24 AG) HIV 1&2 AB/AG Screen (P24 AG) Lab Routine Screening for STD (sexually transmitted disease) 1 Occurrences starting 08/10/2023 until 08/09/2024 [employer] Work Phone: Comment on above: 1 Occurrences starti ng 08/10/2023 until 08/09/2024 HIV-1/HIV-2 antigen/antibody combination immunoassay HIV-1 and HIV-2 antibodies Lab Routine Missed menses , unspecified gestational age Ordered: 05/05/2024 [facility] Comment on above: Ordered: 05/05/2024 Human papilloma viru s DNA [Presence] in Unspecified specimen by Probe with amplification HPV DNA probe, amplified Microbiology Routine Well woman exam with routine gynecological exam Ordered: 07/06/2024 [facility] Comment on above: Ordered: 07/06/2024 End: 09-26-2024 Lipid panel Lipid panel Lab Routine Well adult health check 1 Occurrences starting 09/27/2023 until 09/26/2024 [facility] Comment on above: 1 Occurrences starti ng 09/27/2023 until 09/26/2024 Neisseria gonorrhoea e DNA [Presence] in Unspecified specimen by ALLISON with probe detection Neisseria gonorrhea DNA probe, direct Lab Routine Exposure to STD Ordered: 07/06/2024 [facility] Comment on above: Ordered: 07/06/2024 Neisseria gonorrhoea e DNA [Presence] in Unspecified specimen by ALLISON with probe detection Neisseria gonorrhea DNA probe, direct Lab Routine Chlamydia trachomatis infection 21 weeks gestation of Second trimester Ordered: 08/01/2024 [facility] Comment on above: Ordered: 08/01/2024 Reagin Ab [Presence] in Serum by RPR RPR Lab Routine Missed menses , unspecified gestational age Ordered: 05/05/2024 [facility] Comment on above: Ordered: 05/05/2024 Rubella antibody, IgG Rubella an tibody, IgG Lab Routine Missed menses , unspecified gestational age Ordered: 05/05/2024 [facility] Comment on above: Ordered: 05/05/2024 Strep B screen Strep B screen Microbiology Routine Third trimester 11/17/2024 3:01 PM EDT [facility] Work Phone: SURESWAB(R) ADVANCED VAGINITIS PLUS, TMA SURESWAB(R) ADVANCED VAGINITIS PLUS, TMA Pathology and Cytology Routine Vaginal discharge Ordered: 07/06/2024 [facility] [employer] Work Phone: Comment on above: Ordered: 07/06/2024 SURESWAB(R) ADVANCED VAGINITIS PLUS, TMA SURESWAB(R) ADVANCED VAGINITIS PLUS, TMA Pathology and Cytology Routine Chlamydia trachomatis infection 21 weeks gestation of Second trimester Ordered: 08/01/2024 [facility] [employer] Work Phone: Comment on above: Ordered: 08/01/2024 End: 08-09-2024 Syphilis Total(Unknown Syphilis Status) Syphilis Total(Unknown Syphilis Status) Lab Routine Screening for STD (sexually transmitted disease) 1 Occurrences starting 08/10/2023 until 08/09/2024 [facility] on above: 1 Occurrences starti ng 08/10/2023 until 08/09/2024 Thyrotropin [Units/volume] in Serum or Plasma TSH Lab Routine Missed menses Ordered: 05/09/2024 [facility] Work Phone: Comment on above: Ordered: 05/09/2024 End: 09-26-2024 TSH with Reflex TSH with Reflex Lab Routine Class 1 obesity due to excess calories without serious comorbidity with body mass index (BMI) of 31.0 to 31.9 in adult 1 Occurrences starting 09/27/2023 until 09/26/2024 [facility] Comment on above: 1 Occurrences starti ng 09/27/2023 until 09/26/2024 End: 09-10-2024 Us uterus limited 1/> fetuses Yan Math[facility] [employer] Work Phone: Comment on above: Once for 1 Occurrenc es starting 09/10/2024 until 09/10/2024 Immunizations Immunization Date Immunization Notes Care Provider Ebenezer raygoza 11-03-2024 tetanus toxoid, redu andrew diphtheria toxoid, and acellular pertussis vaccine, adsorbed [facility]nelas [facility] Immunization, In Clinic,; Translations: [Drug or medicament (substance)] Tiffany Ornelas MD [facility] 08-16-2018 tetanus toxoid, redu andrew diphtheria toxoid, and acellular pertussis vaccine, adsorbed Armen Street DO Work Phone: [facility] Payers Date Payer Category Payer Unknown [id number] 2023 Commercial Managed C are - [employer] Member Subscriber Plan / Payer (Effective 2023-Present) Name: Sapna Serrano Relation to Subscriber: Self Name: Sapna Serrano Payer ID: Not on file Type: Not on file Address: [place] [id number] 2023 Private Health Insurance [id number] 2023 Unknown [id number] 1.13.693.2. [id number] 2023 Unknown [id number] 2017 Unknown [id number] 1.2.840.504038.1.13.239.2. 7.9.328552.0478.315 1993 Unknown [id number] 2.840.1.318153.3.579.2. 128 1993 Unknown [id number] 2.840.1.514812.3.579.2. 128 1993 Unknown [id number] 2.840.1.060941.3.579.2. 128 1993 Unknown [id number] 2.16840.1.273478.3.579.2. 1286 1993 Unknown [id number] 2.840.1.641052.3.579.2. 173 1993 Unknown [id number] 2.16840.1.395321.3.579.2. 173 1993 Unknown [id number] 2.16840.1.073241.3.579.2. 173 1993 Unknown [id number] 2.16840.1.956603.3.579.2. 1286 1993 Unknown [id number] 2.16840.1.056807.3.579.2. 128 1993 Unknown [id number] 2.16.840.1.076283.3.579.2. 1285 1993 Unknown [id number] 2.16.840.1.731247.3.579.2. 1285 1993 Unknown [id number] 2.16.840.1.681204.3.579.2. 1285 1993 Unknown [id number] 2.16.840.1.640534.3.579.2. 1285 1993 Unknown [id number] 2.16.840.1.919015.3.579.2. 1285 1993 Unknown [id number] 2.16840.1.612985.3.579.2. 1285 1993 Unknown [id number] 2.16840.1.543193.3.579.2. 1285 1993 Unknown [id number] 2.840.1.166651.3.579.2. 1285 1993 Unknown [id number] 2.16840.1.331994.3.579.2. 1285 1993 Unknown [id number] 2.840.1.919992.3.579.2. 1285 1993 Unknown [id number] 2.16840.1.779864.3.579.2. 1285 1993 Unknown [id number] 2.16840.1.275355.3.579.2. 1285 1993 Unknown [id number] 2.16840.1.788287.3.579.2. 1285 1993 Unknown [id number] 2.16840.1.043538.3.579.2. 1285 1993 Unknown [id number] 2.16840.1.442690.3.579.2. 1285 1993 Unknown [id number] 2.16840.1.305666.3.579.2. 1285 1993 Unknown [id number] 2.16.840.1.467351.3.579.2. 1286 1993 Unknown [id number] 2.16.840.1.698528.3.579.2. 1286 1993 Unknown [id number] 2.16.840.1.635391.3.579.2. 1286 1993 Unknown [id number] 2.16.840.1.607263.3.579.2. 1286 1993 Unknown [id number] 2.16.840.1.687643.3.579.2. 1286 1993 Unknown [id number] 2.16.840.1.488249.3.579.2. 1286 Medicaid [place] [id number] Social History Date Type Detail Facility Tobacco smoking stat [facility] Tobacco smoking consumption unknown [facility] Start: 1995 Sex assigned at Female N [facility] Start: 10-25-2023 Gender identity Identifies as female gender (finding) [facility] Start: 08-25-2023 End: 11-24-2024 Sexual orientation Not on file [facility] Start: 08-01-2011 End: 12-01-2024 Tobacco smoking status MDIS Smokes tobacco daily [facility] Start: 08-01-2011 History of tobacco use Cigarette Smo ker [facility] Start: 08-25-2023 End: 11-24-2024 Cigarettes smoked current (pack per day) - Reported 1 [facility] Start: 08-25-2023 End: 12-01-2024 Tobacco use and exposure Smokeless tobacco non-user [facility] Start: 01-27-2024 End: 12-01-2024 Alcoholic beverage intake Ex-drinker (finding) [facility] Has the [employer], or [employer] threatened to shut off services in your home in past 12Mo No [facility] Are you now , , , , never or living with a partner? Never [facility] How often to you hav e a drink containing alcohol? Never [facility] How many standard drinks containing alcohol do you have on a typical day? Patient does not drink [facility] How hard is it for y ou to pay for the very basics like food, housing, medical care, and heating Somewhat hard [facility] Do you feel stress - tense, restless, nervous, or anxious, or unable to sleep at night because your mind is troubled all the time - these days [OSQ] To some extent [facility] Start: 1995 Sex assigned at Not on file P [place] [facility] Start: 05-15-2012 End: 11-08-2014 Sex Female (finding) [facility] Start: 03-21-2024 [facility] How hard is it for y ou to pay for the very basics like food, housing, medical care, and heating Not very hard [facility] Goals Date Patient Goal Desired Activity /State Personal health goal Clinical Notes 08-10-2023 to 12-01-2024 Tiffany Ornelas MD - 12/01/2024 10:45 AM Geraldo Keith RN - 12/01/2024 10:45 AM Cuco Boucher MD - 12/01/2024 10:45 AM Ailyn Snow MD - 11/28/2024 11:30 AM EDTAttachments Note Date & Type Note Facility 12-01-2024 History of Present illness Narrative Attending Attestation: I saw the patient. I participated and was physically present during the critical/thompson portions of the service. I was directly involved in the management and treatment plan of the patient. I reviewed the resident's note. Additional Notes/Findings: Return OB Good FM. Denies Bleeding, SROM, Some contractions Denies persistent N/V, constipation, heartburn, hematuria, dysuria CF NSTs are being done at [facility], 2 times/week with fluid check. Anxiety/depression Doing well Tobacco use 10 cig/day Control Method plan: has decide not to have sterilization Problem List reviewed and updated PMH/PSH/FH/Soc/Meds/Allergies Reviewed PE BP 122/78 Wt 104.1 kg (229 lb 8 oz) LMP 03/07/2024 Comment: test negative 09/03/23 at 1242 BMI 39.39 kg/m Alert, NAD ABdomen: Soft, NT, nondistended Cervix: 0/thick/-3 medium mid/post Sales Operations Coordinator: Sindhu Wt Readings from Last 3 Encounters: 11/28/24 99.9 kg (220 lb 3.2 oz) 11/24/24 100.6 kg (221 lb 11.2 oz) 11/17/24 99.5 kg (219 lb 4.8 oz) See flowsheet Imp/Plan at 38w2d Patient Active Problem List Diagnosis Rectal bleeding Vitamin D deficiency Depression Anxiety Onychomycosis Overweight Maternal care for other (suspected) abnormality and damage, gastrointestinal anomalies, not applicable or unspecified Cystic fibrosis carrier, antepartum care, first in third trimester Anxiety and depression Chlamydia infection affecting , antepartum care Labor warnings/ Movement discussed CF For delivery at [id number] IOL form submitted. Discussed the process and that L&D will call when bed available and that it may take several days after our target date to get in. testing--continue twice weekly until delivery. Does have one scheduled for 12/05/24 Anxiety/depression stable Note to patient: The Century Cures Act [...] opinion of the practitioner. Pt here for 38w3d HROB visit. Denies LOF or bleeding. Positive movements. Patient reports [place] contractions. No questions or concerns. Summary: Progress High Risk Obstetrics - Return Visit 29 y.o. at 38w3d Good FM. Denies Bleeding, SROM, Some contractions Denies persistent N/V, constipation, heartburn, hematuria, dysuria CF NSTs are being done at [facility], 2 times/week with fluid check. Anxiety/depression Doing well Tobacco use 10 cig/day Control Method plan: has decide not to have sterilization Wt Readings from Last 3 Encounters: 12/01/24 104.1 kg (229 lb 8 oz) 11/28/24 99.9 kg (220 lb 3.2 oz) 11/24/24 100.6 kg (221 lb 11.2 oz) PE BP 122/78 Wt 104.1 kg (229 lb 8 oz) LMP 03/07/2024 Comment: test negative 09/03/23 at 1242 BMI 39.39 kg/m Alert, NAD ABdomen: Soft, NT, nondistended flowsheet -- reviewed care Labor warnings/ Movement discussed CF For delivery at [id number] testing Anxiety/depression stable Does not have to return if patient does not have elevated Bps between now and delivery. She is scheduled for induction next week. Note signed by: Dr. Sharri Boucher Slime Plant Operator Helper, PGY1 Note to patient: The Century Cures Act [...] and the clinical opinion of the practitioner. documented in this encounter [facility] 11-28-2024 History of Present illness Narrative REASON FOR OFFICE VISIT: Fetus with cystic fibrosis HISTORY OF PRESENT ILLNESS: Sapna Serrano is a pleasant 29 y.o. G0 at 38w0d due on Estimated Date of Delivery: 12/12/24 . has been complicated with cystic fibrosis. She underwent amniocentesis which indicated two CF causing variants ([id number] and B5874H). Currently the patient has no complaints. The [...] the patient also lives far away from [facility]. Risks of cystic fibrosis with a complications such as but not limited to meconium ileus discussed. She has a seen a cystic fibrosis specialist. Of note the patient is no longer with the father of the and she is currently with a new partner. RECOMMENDATION: - continue with the surveillance - Delivery for now [id number] unless an indication arises for delivery earlier. Thank you for allowing me to participate in [facility]. If there are any questions, please do not hesitate to call me. Edil Snow MD, FACOG (she/hers) Maternal- Medicine [facility] [address] [place] [address] Headache/epigastric pain/blurry vision/swelling? Mild swelling if on feet for too long, resolves with rest and elevation Cramping/contractions? BH contractions Spotting or vaginal bleeding? No Loss or gush of fluid like your water may have broken? No Recent ER visits or hospitalizations? No Any concerns that you would like me to mention to the provider today? No [facility] History of Present illness Narrative [facility] High Risk Obstetrics Visit [...] third trimester Overview Tranasfer from Dr. Paez schlater Dated by LMP c/w 7 week US Initial and 28 week labs--completed Chlamydia infection affecting , antepartum Overview 07/2024 Treated with negative test of reinfection care - labor precautions and movement discussed - GBS negative - S/p Tdap - Delivery timing to be further addressed with MFM Fetus with two CF causing variants - Continue twice weekly NST (at [facility]), weekly BPP, weekly bowel evaluation and DVP [...] 1 weeks via HROB Corinne Driver DO Principal Gifts Officer Resident, PGY-3 Resident Attestation: The patient was [...] first in third trimester Overview Tranasfer from bonny Crawford Dated by LMP c/w 7 week US Initial and 28 week labs--completed Rto 1 week. Giacomo Horne MD MPH 11/24/2024 3:05 PM documented in this encounter [facility] 11-17-2024 History of Present illness Narrative [facility] High Risk Obstetrics Return OB Visit CC: Scheduled OB Visit Subjective: at 36w3d Reports [place]Epstein. Denies vaginal bleeding, loss of fluid. Reports [...] first in third trimester Overview Tranasfer from bonny Crawford Dated by LMP c/w 7 week US Initial and 28 week labs--completed Anxiety and depression Chlamydia infection affecting , antepartum Overview 07/2024 Treated with negative test of reinfection Care - S/p Tdap - labor precautions discussed - kick count advised - GBS obtained today Fetus with Two CF causing Variants - Continue twice weekly NST (at [facility]), weekly BPP, weekly bowel evaluation and DVP [...] 2 weeks via HROB Beverly Ramirez MD Principal Gifts Officer Resident, PGY-4 Pt here for 36w3d HR [...] first in third trimester Overview Tranasfer from bonny Crawford Dated by LMP c/w 7 week US Initial and 28 week labs--completed Giacomo Horne MD MPH 11/17/2024 3:33 PM documented in this encounter [facility] 11-03-2024 History of Present illness Narrative [facility] High Risk Obstetrics Visit [...] first in third trimester Overview Tranasfer from bonny Crawford Dated by LMP c/w 7 week US Initial and 28 week labs--completed Relevant Medications Immunization, In Clinic, Other Relevant Orders Tdap vaccine greater than or equal to 7yo IM (Completed) Chlamydia/Gonorrhoeae by PCR, Urine Good FM. Denies Bleeding, SROM, contractions Denies persistent N/V, constipation, hematuria, dysuria Heartburn daily Tums with good relief testing is being done at [facility] with [facility]. Paez 10/09/24 + chlamydia Treated [...] based on amniocentesis Twice weekly testing--receiving at [facility] and NST with DVP/bowel check here at [facility] Serial growth scans--last done 10/30 at [...] would like TDAP. [facility] History of Present illness Narrative Headache/epigastric [...] amniocentesis which indicated two CF causing variants ([id number] and K0989V). Currently the patient has no complaints. The [...] - Weekly bowel evaluation and DVP through M for now - repeat growth ultrasound in 4 weeks with MFM - the patient has seen a cystic fibrosis specialist - location of delivery to be further addressed. Thank you for allowing me to participate in [facility]. If there are any questions, please do not hesitate to call me. Sincerely, ANGELA GARDNER MD documented in this encounter [facility] 10-24-2024 Miscellaneous Notes Per writer Domingo lvzuleika stating that we will wait to schedule from the next tracker on 10/30. Bridal Sales Consultant also asked if pt wanted an nst scheduled on 10/30. documented in this encounter [facility] 10-24-2024 Telephone encounter Note Per writer Domingo lvzuleika stating that we will wait to schedule from the next tracker on 10/30. Bridal Sales Consultant also asked if pt wanted an nst scheduled on 10/30. [facility] 10-23-2024 History of Present illness Narrative [...] all scheduled appointments documented in this encounter [facility] 10-19-2024 History of Present illness Narrative [...] - s/p amniocentesis with two CF variants (O595uks and Z8151S). Patient is doing well overall. Reports good [...] 09/03/2023 Performed by Scotty Mahoney DO at [facility] Allergies Allergies Allergen Reactions Penicillins [...] S/p amniocentesis with two CF causing variants (C880ocd and B7519F) - Follows with Maternal- Medicine - Plan for twice weekly NSTs, weekly bowel evaluation and DVP and growth US q4w - [facility] US (09/29): cephalic, anterior, EFW 1456g (50%), AC 55%, DVP 5.6 cm, bowel appears prominent measuring at the 95% percentile. - Patient has met with cystic fibrosis specialist - Delivery timing to be determined by [facility] RTO in 2 weeks with HROB Patient seen and discussed with Dr. Ronda DO. Corinne Driver DO Principal Gifts Officer Resident, PGY-3 documented in this encounter [facility] 10-17-2024 History of Present illness Narrative [...] anxiety disorder) 10/25/2023 Cystic fibrosis carrier, antepartum ([facility]) 06/12/2024 Placental abnormality in third trimester ([facility]) 09/21/2024 History of loop electrosurgical excision procedure (LEEP) of cervix affecting , antepartum ([facility]) 09/21/2024 Third trimester ([facility]) 10/03/2024 29 weeks gestation of ([facility]) 10/03/2024 HSV infection 10/03/2024 Resolved Ambulatory Problems [...] ASSESSMENT & PLAN ICD-10-CM 1. Third trimester ([facility]) Z34.93 CANCELED: POCT urinalysis dipstick manually resulted 2. 32 weeks gestation of ([facility]) Z3A.32 Return OB: Patient presents today for [...] she has her first OB appointment w/[email or web address] OB at [facility] on . No orders of the defined types were placed in this encounter. Follow Up: Patient is to return to office in 2 week for routine OB appointment. Documented by Nely Warren MA on behalf of: HANNAH Carey documented in this encounter [facility] 10-03-2024 History of Present illness Narrative Reason [...] anxiety disorder) 10/25/2023 Cystic fibrosis carrier, antepartum ([facility]) 06/12/2024 Placental abnormality in third trimester ([facility]) 09/21/2024 History of loop electrosurgical excision procedure (LEEP) of cervix affecting , antepartum ([facility]) 09/21/2024 Third trimester ([facility]) 10/03/2024 29 weeks gestation of ([facility]) 10/03/2024 HSV infection 10/03/2024 Resolved Ambulatory Problems [...] nursing note reviewed. Exam conducted with a asw/asuw tactical air controller present. Vitals: Estimated body mass index is 34.84 kg/m as calculated from the following: Height as of this encounter: 5' 4 . Weight as of this encounter: 203 lb. BP: 122/74 Patient's last menstrual period was 03/07/2024. ASSESSMENT & PLAN ICD-10-CM 1. Third trimester ([facility]) Z34.93 POCT urinalysis dipstick manually resulted 2. Cystic fibrosis carrier, antepartum ([facility]) O09.899 Z14.1 3. Moderate episode of recurrent major depressive disorder (HCC) F33.1 4. History of loop electrosurgical excision procedure (LEEP) of cervix affecting , antepartum ([facility]) O34.40 Z98.890 5. HSV infection B00.9 6. 30 weeks gestation of ([facility]) Z3A.30 Return OB: Patient presents today [...] and DVP. Pt will be delivered in [place] or [place]. Pt to be a complete transfer of care at 32 weeks. Orders Placed This Encounter Procedures POCT urinalysis dipstick manually resulted Follow Up: Patient is to return to office in 2 week for routine OB appointment. Documented by Laura Godwin LPN on behalf of: Curtis Paez DO documented in this encounter [facility] 09-29-2024 History of Present illness Narrative Headache/epigastric [...] amniocentesis which indicated two CF causing variants (V421fvs and B7349P). Prominent bowel seen today Recent episode of [...] 09/03/2023 Performed by Scotty Mahoney DO at [facility] ALLERGIES: Allergies Allergen Reactions Penicillins [...] and the other consultants, we search on Unocoin and all the available care everywhere epic I did review all the imaging studies of the patient available on EMR, ordered by the primary care physician and the other senior clinical consultant HABITS: Patient activity no restrictions, diet [...] Well oriented time place person, normal gait [facility] US Impression Single viable intrauterine with [...] MAURO modulator therapy Weekly bowel evaluation through [facility] recommended. 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 Patient does have ultrasound scheduled with us. Thank you for allowing me to participate in Sapna Serrano . If there any questions please do not hesitate to contact us. Sincerely, EDIL SNOW MD documented in this encounter [facility] 09-18-2024 History of Present illness Narrative Reason [...] anxiety disorder) 10/25/2023 Cystic fibrosis carrier, antepartum ([facility]) 06/12/2024 Resolved Ambulatory Problems Diagnosis [...] the abdomen where she works at the [employer] and was evaluated in our OB department. Ultrasound completed on 09/14/24 with hypoechoic fluid collection that likely represent subchorionic hemorrhage. She has scheduled growth US with [facility] on the of this month. We discussed starting of Effexor and she is agreeable to trialing this medication for her anxiety. Vitals and nursing note reviewed. Exam conducted with a asw/asuw tactical air controller present. Vitals: There is no height or weight on file to calculate BMI. BP: Patient's last menstrual period was 03/07/2024. ASSESSMENT & PLAN ICD-10-CM 1. Second trimester ([facility]) Z34.92 POCT urinalysis dipstick manually resulted 2. 27 weeks gestation of ([facility]) Z3A.27 3. Cystic fibrosis carrier, antepartum ([facility]) O09.899 US OB follow up transabdominal approach [...] the abdomen where she works at the [employer] and was evaluated in our OB department. Ultrasound completed on 09/14/24 with hypoechoic fluid collection that likely represent subchorionic hemorrhage. She has scheduled growth US with [facility] on the of this month. We discussed [...] Curtis Paez DO documented in this encounter [facility] 09-15-2024 Miscellaneous Notes Received call from patient with reports of recent visit to [facility] due to vaginal bleeding. Patient states ultrasound was performed and she was told she has a subchorionic hematoma. States was discharged with instruction to follow up with OB. Appointment scheduled with OB for 09/19/24. Patient inquiring if next MFM ultrasound needs to be sooner than scheduled. Bridal Sales Consultant reviewed information with Dr. Burns. Per yadi Garza to keep MFM ultrasound scheduled as is and follow up with OB. Returned call to patient and LVM with above recommendations and precautions for when to return to nearest Labor and Delivery ED if indicated. documented in this encounter [facility] 09-15-2024 Telephone encounter Note Received call from patient with reports of recent visit to [facility] due to vaginal bleeding. Patient states ultrasound was performed and she was told she has a subchorionic hematoma. States was discharged with instruction to follow up with OB. Appointment scheduled with OB for 09/19/24. Patient inquiring if next MFM ultrasound needs to be sooner than scheduled. Bridal Sales Consultant reviewed information with Dr. Burns. Per yadi Garza to keep MFM ultrasound scheduled as is and follow up with OB. Returned call to patient and LVM with above recommendations and precautions for when to return to nearest Labor and Delivery ED if indicated. [facility] 09-11-2024 Hospital Discharge instructions Brenda Lancaster RN - 09/11/2024 12:32 AM EDT OUTPATIENT DISCHARGE Dr. Marlen Don [facility] Dr. Lillian Maldonado CN [address] [facility] [address] Lillian Swenson CN [address] [facility] [address] [phone] Tamara Myers, MSN, CLEANER ASSISTANT, CNM [facility] [address] [facility] [address] [address] [facility] [address] [facility] [address] Antoinette Macdonald CNM [address] [place] [address] [place] [address] Giacomo Benson CNM [address] [place] [address] [place] [address] [phone] ACTIVITY LIMITATIONS: ( )Up and about as [...] AND DELIVERY . documented in this encounter [facility] 09-07-2024 History of Present illness Narrative [...] today. Sapna underwent cell free DNA testing ([facility] NIPT) which indicated that the fetus is at high risk for cystic fibrosis. Both parents are known to be carriers of a CFTR variant. She underwent amniocentesis which indicated two CF causing variants (Q000vkj and U0878S). This is mom's first . There is [...] on sweat chloride testing. The 2 variants (I127rwg and P0180P) that were identified by amniocentesis are highly [...] record- 5 min documented in this encounter [facility] 08-30-2024 History of Present illness Narrative Reason [...] disorder (CMS/HCC) 10/25/2023 ALICIA (generalized anxiety disorder) ([facility]) 10/25/2023 Cystic fibrosis carrier, antepartum [...] nursing note reviewed. Exam conducted with a asw/asuw tactical air controller present. Vitals: There is no height or [...] Carlotta Doll NP documented in this encounter [facility] 08-17-2024 Miscellaneous Notes Summary: Amnio results Called and left a VM for the patient regarding the cystic fibrosis results from her amniocentesis. I disclosed these results were positive for both variants identified on the [employer] carrier screen and likely FOB Yonatan's carrier screen. This may support a diagnosis of cystic fibrosis in the , however clinical correlation is recommended. I encouraged the patient to reach out if she has any additional questions or concerns. documented in this encounter [facility] 08-17-2024 Telephone encounter Note Summary: Amnio [...] she has any additional questions or concerns. [facility] Work Phone: 08-14-2024 History of Present illness [...] nursing note reviewed. Exam conducted with a asw/asuw tactical air controller present. Vitals: There is no height or [...] Curtis Paez DO documented in this encounter [facility] 08-01-2024 History of Present [...] nursing note reviewed. Exam conducted with a asw/asuw tactical air controller present. Vitals: There is no height or [...] Curtis Paez DO documented in this encounter [facility] 07-28-2024 History of Present [...] Yes Have you been seen here at [facility] in a previous ? No Recent ER visits or hospitalizations? No Bring blood sugar log or meter with you today? (Please bring them with you for every visit at [facility]) N/A Flu vaccine (Feb-June)? N/A Any [...] sent with amniotic fluid. Specimen sent to [facility] for targeted familial testing for [...] 09/03/2023 Performed by Scotty Mahoney DO at [facility] ALLERGIES: Allergies Allergen Reactions Penicillins [...] and the other consultants, we search on Unocoin and all the available care everywhere epic I did review all the imaging studies of the patient available on EMR, ordered by the primary care physician and the other senior clinical consultant HABITS: Patient activity no restrictions, diet [...] fibrosis baby born, please reach out to [facility] for complete transfer of care and delivery at [facility] DISPOSITION: At this point the patient is in complete care of her seaweed harvester. Patient does have ultrasound scheduled with us. Thank you for allowing me to participate in [facility] [place] [facility] . If there any questions please do not hesitate to contact us. Sincerely, LYNDSEY BURNS MD documented in this encounter [facility] 07-12-2024 Miscellaneous Notes Summary: Possible FOB carrier [...] or concerns arise. documented in this encounter [facility] 07-12-2024 Telephone encounter Note Summary: Possible FOB [...] out if additional questions or concerns arise. [facility] Work Phone: 07-06-2024 History of Present illness [...] Moderate episode of recurrent major depressive disorder ([facility]) 10/25/2023 ALICIA (generalized anxiety disorder) ([facility]) 10/25/2023 Cystic fibrosis carrier, antepartum [...] nursing note reviewed. Exam conducted with a asw/asuw tactical air controller present. Vitals: There is no height or [...] of: HANNAH Carey documented in this encounter [facility] 06-20-2024 Miscellaneous Notes Left a message for pt about her amnio that Jocy Vargas scheduled. I will call her back tomorrow to make sure she received my message, documented in this encounter [facility] 06-20-2024 Telephone encounter Note Left a message for pt about her amnio that Jocy Vargas scheduled. I will call her back tomorrow to make sure she received my message, [facility] 06-20-2024 History of Present illness Narrative Summary: MFM Genetic Counseling Note Images from the original note were not included. Provider at different site/location than patient. I confirmed the patient is located in the [facility]. Sapna Serrano is currently at home and provider at remote site. The patient consented to be treated electronically via this form of telemedicine. This visit was not related to an office visit or procedure in the past 7 days, and in-office follow up is not recommended in the next 24 hours. Video Visit via Real-time Synchronous Audiovisual Provider Location: [facility] AT [address] [address] Patient Location: Patient's home Patient Location Laser Beam Cutter: None Video Visit Consent Statement: I discussed [...] that there are some limitations compared to rosq-mf-ortz evaluations. We elected to proceed. Name: Sapna Serrano DOB: 1995 Date of Visit: 06/20/2024 Email: Preferred contact method: mychart Requesting Physician: Curtis Paez DO [address] [place] [address] [place] [address] Reason for Referral: Sapna Serrano is a 28 y.o. female who presented to [facility] accompanied by their mother, [...] Screen: YES - low risk Performing lab: [email or web address] Conditions screened: Trisomy 13, Trisomy 18, Trisomy 21, sex chromosome aneuploidies sex predicted: female fraction: 5.8% Drawn on: 05/17/2024 Carrier Screening: YES - carrier for cystic fibrosis, high risk fetus Performing lab: [email or web address] Test type: UNITY Screen Carrier Screen with [...] Paternal ancestry: Ángel: White, ; Yonatan: White (Greenlandic), Consanguinity: denied The history was otherwise unremarkable [...] individuals worldwide, with 40,000 individuals in the . Common symptoms may include chronic cough, recurrent [...] of the medical records and evaluation by bilingual medical assistant of the affected individual, may be helpful [...] delay and spina bifida 6. Online resources: [employer] Cystic Fibrosis Foundation (cff.org) WhatIsCysticFibrosis.pdf Total time [...] call or email their genetic counselor at [phone] or [email or web address] if any additional questions or concerns should arise. DANA Alas Licensed, Certified Genetic Counselor documented in this encounter [facility] 06-08-2024 History of Present illness Narrative [...] disorder (CMS/HCC) 10/25/2023 ALICIA (generalized anxiety disorder) (CMS/[facility]) 10/25/2023 Resolved Ambulatory Problems Diagnosis [...] nursing note reviewed. Exam conducted with a asw/asuw tactical air controller present. Vitals: There is no height or [...] or undercooked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
[2024-12-04 15:01] VITALS: BP 130/68; PULSE 88
== END 2024-12-04 15:34 | disposition home or self-care (01) ==
LOC: FBCO 14:52 → FBC 14:54
PROVIDERS: PCP Family Medicine; Visit Provider Obstetrics & Gynecology
DX: O99.283 Endocrine, nutritional and metabolic diseases complicating pregnancy, third trimester (principal); Z3A.38 38 weeks gestation of pregnancy
CPT/HCPCS: 59025